=== PATIENT | male | born 1950 | race Caucasian/White ===

== ENCOUNTER 2019-04-17 04:06 | Emergency (ER) | payer OTHER, SELFPAY ==
[2019-04-17 04:07] VITALS: BP 158/108; PULSE 106; RESP 15; TEMP 36.2; O2SAT 95; BMI 31.3
--- NOTE | 2019-04-17 04:09 | CT_ITS ---
STUDY: CT BRAIN WITHOUT CONTRAST REASON FOR EXAM: Male, 68 years old patient fell on concrete with headache and nausea. RADIATION DOSAGE (If Supplied By Facility): CTDIvol = ( 44.99 ) mGy, DLP = ( 846.73 ) mGycm TECHNIQUE: Transaxial CT imaging of the brain was performed without administration of intravenous contrast material. Multiplanar reformations are submitted for interpretation. Individualized dose optimization techniques were used for this CT. COMPARISON: No relevant priors. FINDINGS: There are multiple scalp calcifications. Normal calvarium. There is mild cerebral atrophy with widening of the extra-axial spaces and ventricular dilatation. Normal white matter tracts of the cerebral hemispheres. Normal basal ganglia and thalami. Normal brainstem. Normal cerebellum. There is no intracranial hemorrhage. There are no findings of an acute ischemic infarction. Normal visualized paranasal sinuses. CT/Brain/Head without Contrast IMPRESSION: No CT evidence of acute intracranial hemorrhage. Electronically Signed: Joelle Perez MD at 4:56 EDT , Service support ,
--- NOTE | 2019-04-17 04:19 | ED.DCSUM_ITS ---
- ER Visit Summary Date of Service: 04/17/19 Chief Complaint: Head injury History of Present Illness: The patient is a 68 M who presents after a head injury. He states he was working yesterday and stepping off of a truck when he slipped and fell. He hit the back of his head. There was no LOC at that time. He states he had a mild headache throughout the day yesterday. When he woke up today he felt woozy. He had trouble driving. He does admit to some nausea. Denies any slurred speech, facial droop, neck pain, back pain, weakness of his arms or legs. He does not take any blood thinning medications. He thought he should get checked out today because of these symptoms. Physical Examination: Vital signs reviewed. HEENT exam unremarkable. Heart is tachycardic and regular rhythm without murmurs. Lungs are clear to auscultation. Abdomen is soft and nontender. Extremities reveal no edema. Skin exam normal. Neurologic exam normal. Test Results: CAT scan of the head unremarkable Emergency Department Course and Treatment: The patient's CAT scan is normal. This is likely a concussion. I counseled him on concussion symptoms. He will use NSAIDs for pain. I will fill out Worker's Compensation forms for him. Treatment Plan: [] Disposition: Discharge Impression: Concussion without loss of consciousness This note was generated with [employer] dictation software. It may contain incorrect words, spelling, and punctuation that were not noted in review of the chart prior to signing ED Disposition - Plan for ED Patient: Disposition: Home or Assisted Living Instructions: CONCUSSION, No Wake Up Referrals: NOT,DEFINED [NON-STAFF] -
[2019-04-17 05:08] VITALS: BP 146/88; PULSE 93; RESP 15; O2SAT 94
== END 2019-04-17 05:09 | disposition home or self-care (01) ==
PROVIDERS: Emergency Provider Emergency Medicine
DX: S06.0X0A Concussion without loss of consciousness, initial encounter (principal); W17.89XA Other fall from one level to another, initial encounter; Y93.89 Activity, other specified; Y92.89 Other specified places as the place of occurrence of the external cause; Y99.0 Civilian activity done for income or pay
CPT/HCPCS: 70450; 99283

== ENCOUNTER → 2020-03-30 16:22 | Outpatient (CLI) | payer OTHER, SELFPAY ==
[2020-03-30 19:03] LABS: ALB/GLOB Ratio 0.7 RATIO (0.9-2.4); AST(SGOT) 24 U/L (15-37); Alanine Aminotransfer ALT/SGPT 31 U/L (16-61); Albumin, Serum 3.3 g/dL (3.2-5.0); Alkaline Phosphatase 98 U/L (45-117); Anion Gap 9 (5-15); BUN 26 mg/dL (7-18); BUN/Creat Ratio 24.1 RATIO (10-20); Calcium,Total 8.9 mg/dL (8.5-10.1); Chloride 102 mmol/L (98-107); Cholesterol 153 mg/dL (200); Creatinine, Serum 1.08 mg/dL (0.70-1.30); EST Glomerular Filtration Rate 72 mL/min (>60); Est Glom Filt Rate - Afr Amer 88 mL/min (>60); Globulin 4.8 g/dL (2.2-4.2); Glucose 235 mg/dL (74-106); High Density Lipoprotein 58 mg/dL; Potassium 3.7 mmol/L (3.5-5.1); Protein, Total 8.1 g/dL (6.4-8.2); Sodium Level 138 mmol/L (136-145); Triglycerides 70 mg/dL; Very Low Density Lipoprotein 14 mg/dL (5-40)
[2020-03-30 19:10] LABS: Microalbumin:Creatinine Ratio 63.4 mg/g CRE (<30 mg/g CRE)
== END ==
PROVIDERS: PCP Family Medicine; Referring Provider Family Medicine; Visit Provider Family Medicine
DX: E11.9 Type 2 diabetes mellitus without complications (principal)
CPT/HCPCS: 36415; 80053; 80061; 82043; 82570

== ENCOUNTER 2020-04-15 16:00 | Outpatient (RCR) | payer OTHER, SELFPAY | END 2020-05-06 23:59 | LOC: DC 16:00 | PROVIDERS: PCP Family Medicine; Visit Provider Family Medicine | DX: Z71.3 Dietary counseling and surveillance (principal); E11.65 Type 2 diabetes mellitus with hyperglycemia | CPT/HCPCS: 97802; G0108 ==

== ENCOUNTER 2020-05-11 16:53 | Outpatient (RCR) | payer OTHER, SELFPAY | END 2020-05-11 23:59 | disposition home or self-care (01) | LOC: DC 16:53 | PROVIDERS: PCP Family Medicine; Visit Provider Family Medicine | DX: E11.65 Type 2 diabetes mellitus with hyperglycemia (principal) | CPT/HCPCS: 97803 ==

== ENCOUNTER 2021-03-15 15:27 | Outpatient (CLI) | payer OTHER, SELFPAY ==
[2021-03-15 18:43] LABS: Hemoglobin A1c 12.7 % (3.8-5.6)
[2021-03-15 18:47] LABS: ALB/GLOB Ratio 0.8 RATIO (0.9-2.4); AST(SGOT) 18 U/L (15-37); Alanine Aminotransfer ALT/SGPT 40 U/L (16-61); Albumin, Serum 3.4 g/dL (3.2-5.0); Alkaline Phosphatase 115 U/L (45-117); Anion Gap 9 (5-15); BUN 16 mg/dL (7-18); BUN/Creat Ratio 13.3 RATIO (10-20); Calcium,Total 8.8 mg/dL (8.5-10.1); Chloride 98 mmol/L (98-107); EST Glomerular Filtration Rate 64 mL/min (>60); Est Glom Filt Rate - Afr Amer 77 mL/min (>60); Globulin 4.4 g/dL (2.2-4.2); Potassium 4.3 mmol/L (3.5-5.1); Protein, Total 7.8 g/dL (6.4-8.2); Sodium Level 132 mmol/L (136-145)
[2021-03-15 19:02] LABS: Glucose 547 mg/dL (74-106)
== END 2021-03-15 23:59 | disposition home or self-care (01) ==
PROVIDERS: PCP Family Medicine; Visit Provider Nurse Practitioner Family
DX: E11.65 Type 2 diabetes mellitus with hyperglycemia (principal)
CPT/HCPCS: 36415; 80053; 83036

== ENCOUNTER 2021-08-04 15:00 | Emergency (ER) | payer MEDICARE, OTHER, SELFPAY ==
[2021-08-04 15:05] VITALS: BP 116/75; PULSE 98; RESP 20; TEMP 36.6; O2SAT 97; BMI 24.6
--- NOTE | 2021-08-04 15:09 | EKG12_ITS ---
Test Reason : SYNCOPE Blood Pressure : / mmHG Vent. Rate : 092 BPM Atrial Rate : 092 BPM P-R Int : 154 ms QRS Dur : 082 ms QT Int : 364 ms P-R-T Axes : 044 066 042 degrees QTc Int : 450 ms Normal sinus rhythm Normal ECG Confirmed by SILVIA COTTON, SELENA ([id number]), supervising editor news reel TOYA SIDHU ([id number]) on 08/05/2021 11:26:03 A M Referred By: SHAYE/ARNOLD Confirmed By:DENNYS VEGA MD
--- NOTE | 2021-08-04 15:10 | EX.ED.DYSGE1 ---
HPI History of Present Illness Chief Complaint: Syncope Narrative Narrative: 70-year-old male presenting with an episode of near syncope. EMS reports that the patient was in a freezer for about 20 minutes which is not atypical for him. When he came out his coworkers noticed he was a little unsteady on his feet. They thought he was going to faint and they sat him down. He did not lose consciousness. EMS reports a blood sugar of 116. They state his blood pressure was a little low when he first picked him up however his blood pressure normalized. Patient states that he feels about normal now but he is a very poor informant. Patient denies any headache, visual complaints, paresthesias. He denies loss of bladder or bowel control. He states he did not have any chest pain or shortness of breath. There was no witnessed seizure activity. [facility] Medical History (Updated 08/04/21 @ 15:34 by Bella Alvarado) Diabetes Stroke/cerebrovascular accident Medical History unable to obtain Home Medications aspirin 81 mg PO/SL DAILY 06/15/21 [History Last Taken Unknown] atorvastatin 40 mg PO/SL QHS 06/15/21 [History Last Taken Unknown] glipizide 5 tablet PO/SL DAILY 06/15/21 [History Last Taken Unknown] lisinopril 2.5 mg PO/SL DAILY 06/15/21 [History Last Taken Unknown] melatonin 5 mg PO/SL QHS 06/15/21 [History Last Taken Unknown] metformin 1,000 mg PO/SL BID 06/15/21 [History Last Taken Unknown] metoprolol succinate 25 mg PO/SL DAILY 06/15/21 [History Last Taken Unknown] senna-docusate sodium 8.6 mg PO/SL DAILY 06/15/21 [History Last Taken Unknown] Allergy/AdvReac Type Severity Reaction Status Date / Time No Known Allergies Allergy Verified 08/04/21 15:04 Social History Smoking Status: Never smoker ROS ROS ED Constitutional Constitutional ED: Denies chills Eyes Eyes: Denies blurry vision or change in vision ENT ENT ED: Denies rhinorrhea or sore throat Cardiovascular Cardiovascular: Reports other Details: Near syncope ; Denies chest pain or palpitations Respiratory/Chest Respiratory/Chest: Denies cough or dyspnea Gastrointestinal Gastrointestinal: Denies abdominal pain or constipation Genitourinary Genitourinary ED: Denies dysuria or hematuria Musculoskeletal Musculoskeletal: Denies arthralgias or back pain Integumentary Denies abscess Neurologic Neurologic: Denies headache(s) or paresthesias Psychiatric Psychiatric: Denies anxiety or depression EXAM Physical Exam Const Vital Signs: 08/04/21 15:05 08/04/21 15:08 08/04/21 15:22 Temperature 98 F Temperature Source Temporal Pulse Rate 98 Pulse Rate [Lying] 95 Pulse Rate [Sitting (for 1 minute prior to obtaining)] 93 Pulse Rate [Standing (for 1 minute prior to obtaining)] 91 Respiratory Rate 20 H Respiratory Effort Normal Non-Labored Respiratory Pattern Normal Blood Pressure 116/75 Blood Pressure [Lying] 125/57 H Blood Pressure [Sitting (for 1 minute prior to obtaining)] 117/74 Blood Pressure [Standing (for 1 minute prior to obtaining)] 112/79 Blood Pressure Mean 88 Blood Pressure Mean [Lying] 79 Blood Pressure Mean [Sitting (for 1 minute prior to obtaining)] 88 Blood Pressure Mean [Standing (for 1 minute prior to obtaining)] 90 Pulse Ox 97 Oxygen Delivery Method Room Air 08/04/21 17:19 08/04/21 19:18 08/04/21 20:18 Temperature Temperature Source Pulse Rate 96 100 109 H Pulse Rate [Lying] Pulse Rate [Sitting (for 1 minute prior to obtaining)] Pulse Rate [Standing (for 1 minute prior to obtaining)] Respiratory Rate 16 20 H 27 H Respiratory Effort Respiratory Pattern Blood Pressure 112/69 115/64 123/78 H Blood Pressure [Lying] Blood Pressure [Sitting (for 1 minute prior to obtaining)] Blood Pressure [Standing (for 1 minute prior to obtaining)] Blood Pressure Mean 83 81 93 Blood Pressure Mean [Lying] Blood Pressure Mean [Sitting (for 1 minute prior to obtaining)] Blood Pressure Mean [Standing (for 1 minute prior to obtaining)] Pulse Ox 97 96 97 Oxygen Delivery Method Room Air Room Air Room Air Positive well nourished HEENT Reports moist mucous membranes Eyes PERRL and EOMs intact bilaterally Chest Wall inspection of chest normal Resp normal respiratory effort and clear to auscultation bilaterally Auscultation: Negative for rales, rhonchi or wheezes Cardio regular rate and regular rhythm Neuro oriented x3 Sensorium / Orientation: alert Motor Exam: strength 5/5 throughout Psych Psych Narrative: Appears slightly confused. Skin no rashes or lesions noted MDM MDM MDM Narrative Medical decision making narrative: Patient presenting with confusion and near syncope. I was able to look up his medical record and apparently this is not new since his previous stroke in June. Apparently he had a MCA territory infarct with multifocal confluent petechial hemorrhage at that point. He had developing hematoma. He spent months in the hospital. He is recovering and the medical record shows that he is confused a lot of the times when he still independent. Patient technically is orthostatic negative. He was given IV fluids. His CBC and BMP are unremarkable. LFTs normal. EtOH negative. Drug review screen negative. Urinalysis negative. EKG is sinus rhythm with a ventricular rate of 92 bpm without signs of ischemic change or dysrhythmia. Chest x-ray my interpretation shows no acute cardiopulmonary process and the radiologist does agree. High-sensitivity troponin is 8. CT of the brain is interpreted by the radiologist as left parietal encephalomalacia representing subacute to chronic infarct. Ultimately the patient's lab work and imaging are within normal limits and this appears to be his baseline. I did not find a source for his syncope. I did also find a recent stress test on June 08, 2021 which was normal. I will try to find a contact for him to get a ride home. Impression: 1. Near syncope 2. Confusion Lab Data Attestation: I reviewed the patient's lab results. Labs: Laboratory Results - last 24 hr 08/04/21 08/04/21 08/04/21 15:15 15:15 15:15 WBC 9.0 RBC 4.24 L Hgb 13.2 Hct 39.9 L MCV 94.1 H MCH 31.1 MCHC 33.1 RDW Std Deviation 42.9 RDW Coeff of Sara 12.6 Plt Count 352 MPV 11.1 Immature Gran % (Auto) 0.300 Neut % (Auto) 60.7 Lymph % (Auto) 26.1 [place] % (Auto) 8.4 Eos % (Auto) 3.6 Baso % (Auto) 0.9 Absolute Neuts (auto) 5.5 Absolute Lymphs (auto) 2.35 Nucleated RBC % 0 Sodium 142 Potassium 4.1 Chloride 105 Carbon Dioxide 28.0 Anion Gap 9 BUN 20 H Creatinine 1.14 Estim Creat Clear Calc 64.04 Est GFR (MDRD) Af Amer 82 Est GFR (MDRD) Non-Af 68 BUN/Creatinine Ratio 17.5 Glucose 164 H Calcium 9.2 Total Bilirubin 0.40 AST 24 ALT 29 Alkaline Phosphatase 67 Troponin I High Sens 8 Total Protein 7.2 Albumin 3.6 Globulin 3.6 Albumin/Globulin Ratio 1.0 Urine Color Urine Clarity Urine pH Ur Specific Tyler Urine Protein Urine Glucose (UA) Urine Ketones Urine Occult Blood Urine Nitrite Urine Bilirubin Urine Urobilinogen Ur Leukocyte Esterase Urine RBC Urine WBC Ur Squamous Epith Cells Urine Bacteria Urine Mucus Urine Opiates Screen Urine Methadone Screen Ur Barbiturates Screen Ur Phencyclidine Scrn Ur Amphetamines Screen MDMA (Ecstasy) Screen U Benzodiazepines Scrn Urine Cocaine Screen U Cannabinoids Screen Ur Drug Screen Comment Ethyl Alcohol < 3.0 08/04/21 08/04/21 17:52 17:52 WBC RBC Hgb Hct MCV MCH MCHC RDW Std Deviation RDW Coeff of Sara Plt Count MPV Immature Gran % (Auto) Neut % (Auto) Lymph % (Auto) [place] % (Auto) Eos % (Auto) Baso % (Auto) Absolute Neuts (auto) Absolute Lymphs (auto) Nucleated RBC % Sodium Potassium Chloride Carbon Dioxide Anion Gap BUN Creatinine Estim Creat Clear Calc Est GFR (MDRD) Af Amer Est GFR (MDRD) Non-Af BUN/Creatinine Ratio Glucose Calcium Total Bilirubin AST ALT Alkaline Phosphatase Troponin I High Sens Total Protein Albumin Globulin Albumin/Globulin Ratio Urine Color Yellow Urine Clarity Clear Urine pH 6.5 Ur Specific Tyler 1.015 Urine Protein 15 H Urine Glucose (UA) Normal Urine Ketones Negative Urine Occult Blood Negative Urine Nitrite Negative Urine Bilirubin Negative Urine Urobilinogen Normal Ur Leukocyte Esterase 100 H Urine RBC 0 SEEN Urine WBC 5-10 SEEN Ur Squamous Epith Cells 0-5 SEEN Urine Bacteria RARE Urine Mucus 1+ Urine Opiates Screen NEGATIVE Urine Methadone Screen NEGATIVE Ur Barbiturates Screen NEGATIVE Ur Phencyclidine Scrn NEGATIVE Ur Amphetamines Screen NEGATIVE MDMA (Ecstasy) Screen NEGATIVE U Benzodiazepines Scrn NEGATIVE Urine Cocaine Screen NEGATIVE U Cannabinoids Screen NEGATIVE Ur Drug Screen Comment Ethyl Alcohol Discharge Plan Triage Chief Complaint: Syncope ED Provider: Jerry Schofield Dx/Rx/DC Orders Instructions: ED ALOC, ED Near-Fainting, Uncertain Cause Prescriptions: No Action aspirin 81 mg tablet 81 mg PO/SL DAILY atorvastatin 40 mg tablet 40 mg PO/SL QHS glipizide 5 mg tablet 5 tablet PO/SL DAILY lisinopril 2.5 mg tablet 2.5 mg PO/SL DAILY melatonin 5 mg tablet 5 mg PO/SL QHS metformin 500 mg tablet 1,000 mg PO/SL BID metoprolol succinate 25 mg tablet 25 mg PO/SL DAILY senna-docusate sodium 8.6 mg tablet 8.6 mg PO/SL DAILY Rx Instructions: 2 tabs daily Primary Care Provider: Madhavi Chaudhry Referrals: Cruzito Fraser MD [STAFF PHYSICIAN] - Disposition Disposition: Home, Self Care
--- NOTE | 2021-08-04 15:13 | CT_ITS ---
EXAMINATION : Head CT w/out contrast HISTORY : confusion COMPARISON : 04/17/2019. TECHNIQUE : Multiple contiguous axial images were obtained from the skull base to the vertex without intravenous contrast. A radiation dose optimization technique was used for this scan. FINDINGS : The ventricles and sulci are normal in size. There is no evidence for acute intracranial hemorrhage, mass effect, or midline shift. There is no extra-axial fluid collection. There is normal chan-white differentiation, without CT evidence of acute ischemia or infarct. Left parietal encephalomalacia. The skull base and calvarium are unremarkable. The orbits are unremarkable. The paranasal sinuses are clear. The mastoid air cells are well-aerated. The soft tissues are unremarkable. CT/Brain/Head without Contrast IMPRESSION: No acute intracranial abnormality. Left parietal encephalomalacia representing subacute to chronic infarct.. Electronically Signed: Jose Manuel Maza MD at 16:43 EDT ,
[2021-08-04 15:22] VITALS: BP 112/79; BP 117/74; BP 125/57; PULSE 91; PULSE 93; PULSE 95
--- NOTE | 2021-08-04 15:35 | ED.RN ---
DIFFICULT TO GET AN APPROPRIATE ANSWER FROM PT. HIS RESPONSES TO THE QUESTIONS BEING ASKED DO NOT NECESSARILY MAKE SENSE. HOWEVER, PT DOES KNOW THAT HE IS IN [facility], THE MONTH, DAY, AND THE YEAR. PER PROVIDER THIS IS BASELINE FOR THE PT D/T HIS CVA.
[2021-08-04 15:41] LABS: Absolute Lymphocyte Count 2.35 X10^3/uL (0.83-4.51); Absolute Neutrophil Count 5.5 X10^3/uL (2.0-7.7); Basophil# 0.08 X10^3/uL; Basophil% 0.9 % (0-1); Eosinophil# 0.32 X10^3/uL; Eosinophils% 3.6 % (0-5); Hematocrit 39.9 % (40-54); Hemoglobin 13.2 g/dL (13.0-16.5); Lymphocyte # 2.35 X10^3/ul (0.83-4.51); Lymphocyte % 26.1 % (19-41); Mean Corp Hgb Conc 33.1 g/dL (32-36); Mean Corpuscular Hgb 31.1 pg (27.0-32.0); Mean Corpuscular Volume 94.1 fL (80-94); Mean Platelet Vol. 11.1 fl (6.2-12.0); Monocyte# 0.76 X10^3/uL; Monocyte% 8.4 % (0-10); NRBC Flagged by Analyzer 0 % (0-5); Neutrophil # 5.47 X10^3/uL (2.7-7.7); Neutrophil % 60.7 % (47-70); Platelet Count 352 K/mm3 (150-450); RBC Distribution Width CV 12.6 % (11.6-14.6); RBC Distribution Width SD 42.9 fl (35.1-43.9); Red Blood Count 4.24 M/mm3 (4.6-6.2)
--- NOTE | 2021-08-04 15:55 | RAD_ITS ---
INDICATION: near syncope EXAMINATION/TECHNIQUE: X-RAY - XR Chest 1 View COMPARISON: None. FINDINGS: The lungs are clear. The cardiomediastinal silhouette is unremarkable. No pleural effusion or pneumothorax. No acute osseous abnormalities. RAD/Chest 1 View (Portable) IMPRESSION: No acute radiographic abnormalities. Electronically Signed: Jose Manuel Maza MD at 16:44 EDT ,
[2021-08-04 16:09] LABS: AST(SGOT) 24 U/L (15-37); Alanine Aminotransfer ALT/SGPT 29 U/L (16-61); Albumin, Serum 3.6 g/dL (3.2-5.0); Alkaline Phosphatase 67 U/L (45-117); Anion Gap 9 (5-15); BUN 20 mg/dL (7-18); BUN/Creat Ratio 17.5 RATIO (10-20); Calcium,Total 9.2 mg/dL (8.5-10.1); Chloride 105 mmol/L (98-107); Creatinine, Serum 1.14 mg/dL (0.70-1.30); EST Glomerular Filtration Rate 68 mL/min (>60); Est Glom Filt Rate - Afr Amer 82 mL/min (>60); Estimated Creatinine Clearance 64.04 ml/min; Globulin 3.6 g/dL (2.2-4.2); Glucose 164 mg/dL (74-106); Potassium 4.1 mmol/L (3.5-5.1); Protein, Total 7.2 g/dL (6.4-8.2); Sodium Level 142 mmol/L (136-145); Troponin-I HS 8 pg/mL (3.0-78.0)
[2021-08-04 16:11] LABS: Alcohol, Blood (Medical)-Serum < 3.0 mg/dL
[2021-08-04] MEDS: 0.9% Normal Saline 1,000 ML 999 ML IV (16:18)
--- NOTE | 2021-08-04 16:40 | CM.ED ---
Social Work Note Reason for Referral: No PCP SW reviewed chart, pt has no PCP listed. Meg ELIZABETH updated that pt unable to comprehend questions at this time. Meg placed a call to pt's sister and GUSTAVO Francois ([phone]). Renate states that pt has a PCP named Madhavi Chaudhry at [facility]. Renate states pt has been off the medication Glipizide for a few days since Monday. Renate states someone picked up the prescription today but she was not sure if pt took the medication or not. RN updated. Shilpi Rausch APPAREL CUTTER, [employer] ASSEMBLER
[2021-08-04 17:19] VITALS: BP 112/69; PULSE 96; RESP 16; O2SAT 97
[2021-08-04 18:00] LABS: Red Blood Cells-Urine 0 SEEN /hpf (0-5)
[2021-08-04 18:20] LABS: Amphetamine Urine VISTA NEGATIVE (<1000 ng/mL); Barbiturate Urine VISTA NEGATIVE (< 200 ng/mL); Benzodiazepine Urine VISTA NEGATIVE (< 200 ng/mL); Cocaine Urine VISTA NEGATIVE (< 300 ng/mL); Ecstacy Urine VISTA NEGATIVE (< 500 ng/mL); Methadone Urine VISTA NEGATIVE (< 300 ng/mL); PCP Urine VISTA NEGATIVE (< 25 ng/mL); THC Urine VISTA NEGATIVE (< 50 ng/mL); Vista UDS pH Range 6
[2021-08-04 18:30] LABS: Color, Urine Yellow (Yellow); Glucose, Dipstick Normal (Normal); Ketone-Dipstick Negative (Negative); Leukocyte Esterase-Dipstick 100 /ul (Negative); Nitrite-Dipstick Negative (Negative); Occult Blood-Urine Negative /ul (Negative); Protein-Dipstick 15 mg/dl (Negative); Specific Gravity, Urine 1.015 (1.002-1.030); Urine Bilirubin Dipstick Negative (Negative); Urine Clarity Clear (Clear); Urine Urobilinogen Normal (Normal); Urine pH 6.5 (5.0 - 8.0)
[2021-08-04 18:37] LABS: White Blood Cells 5-10 SEEN /hpf (0-5)
[2021-08-04 18:38] LABS: Bacteria RARE /hpf (None Seen); Mucous, Urine 1+ /hpf (<or=2+); Squamous Epithelial Cells - UA 0-5 SEEN /hpf (0-5)
[2021-08-04 19:18] VITALS: BP 115/64; PULSE 100; RESP 20; O2SAT 96
[2021-08-04 20:18] VITALS: BP 123/78; PULSE 109; RESP 27; O2SAT 97
--- NOTE | 2021-08-04 23:14 | ED.RN ---
pt found to have left prior to instructions. pt was waiting for family member to pick him up. apparently family arrived to pick him up and he left. Primary nurse did not discontinue IV, pt is confused therefore unable to call and ask him. unable to get ahold of the person who picked him up. Lynsey MILLS notified and asked to do a welfare check on patient to make sure he no longer had an IV in his arm. Fanny MILLS calls back stating she visualized patient and he did not have an IV in his arm.
--- NOTE | 2021-08-05 13:57 | ED.RN ---
THIS RN SPOKE WITH PTS SISTER REGARDING HIS CARE THE OTHER DAY. SHE CALLED TO APOLOGIZE FOR HIS BEHAVIOR AND WAS ENCOURAGED BY THIS RN TO HAVE HIM FOLLOWUP WITH HIS PRIMARY CARE PROVIDER TO SORT OUT HIS ISSUES WITH MEDICATION RENEWALS
== END 2021-08-04 23:18 | disposition home or self-care (01) ==
PROVIDERS: Emergency Provider Student in an Organized Health Care Education/Training Program; PCP Family Medicine; Visit Provider Student in an Organized Health Care Education/Training Program
DX: R55 Syncope and collapse (principal); R41.0 Disorientation, unspecified; Z86.73 Personal history of transient ischemic attack (TIA), and cerebral infarction without residual deficits
CPT/HCPCS: 70450; 71045; 80053; 80307; 81001; 82077; 84484; 85025; 93005; 96360; 96361; 99285; A4216

== ENCOUNTER 2021-10-13 10:58 | Emergency (ER) | payer MEDICARE, OTHER, SELFPAY ==
[2021-10-13 10:58] VITALS: BP 128/79; PULSE 113; RESP 18; TEMP 36.2; O2SAT 99; BMI 21.2
--- NOTE | 2021-10-13 11:36 | EKG12_ITS ---
Test Reason : CP Blood Pressure : / mmHG Vent. Rate : 101 BPM Atrial Rate : 101 BPM P-R Int : 136 ms QRS Dur : 080 ms QT Int : 332 ms P-R-T Axes : 062 083 037 degrees QTc Int : 430 ms Sinus tachycardia Otherwise normal ECG Confirmed by SILVIA COTTON, SELENA ([id number]), editor book TOYA SIDHU ([id number]) on 10/15/2021 11:52:33 AM Referred By: RAINER Confirmed By:DENNYS VEGA MD
--- NOTE | 2021-10-13 11:36 | RAD_ITS ---
EXAM: XR CHEST, 2 VIEWS CLINICAL INDICATION: chest pain TECHNIQUE: Frontal and lateral views of the chest. This report was created using iPrint report generation technology. COMPARISON: None. FINDINGS: LUNGS AND PLEURAL SPACES: Unremarkable. No consolidation or edema. No pneumothorax. No effusion. HEART: Unremarkable. Cardiac silhouette not enlarged. MEDIASTINUM: Central airways and mediastinal contour are unremarkable. BONES/JOINTS: Mild anterior wedging of T12 and L1 vertebral bodies are presumably from remote injury. SOFT TISSUES: Unremarkable. RAD/Chest PA and Lateral IMPRESSION: No acute findings in the chest. Electronically Signed: Jamey Mcmahon MD at 12:39 EDT ,
--- NOTE | 2021-10-13 11:41 | ED.VIS.CHEST ---
HPI History of Present Illness Chief Complaint: Chest Pain Informant: patient Narrative Narrative: Patient is a 70-year-old male with history of hypertension and MCA territory infarct with secondary hemorrhage earlier this year (treated at [facility]) presenting with chest pain. Patient states he has a funny feeling in his chest on the left side for the past 2 days. Is worse this morning so he came in to be evaluated further. He denies any shortness of breath, dyspnea on exertion orthostasis. Denies any swelling of his legs. Denies any history of pulmonary believes him or DVT. He notes on the past month he has had some intermittent cold symptoms including nasal congestion. Denies any fever or chills. Does have a nonproductive cough. No other complaints at this time. [facility] Medical History Diabetes Stroke/cerebrovascular accident Home Medications aspirin 81 mg PO/SL DAILY 06/15/21 [History Last Taken Unknown] atorvastatin 40 mg PO/SL QHS 06/15/21 [History Last Taken Unknown] lisinopril 2.5 mg PO/SL DAILY 06/15/21 [History Last Taken Unknown] melatonin 5 mg PO/SL QHS 06/15/21 [History Last Taken Unknown] metformin 1,000 mg PO/SL BID 06/15/21 [History Last Taken Unknown] metoprolol succinate 25 mg PO/SL DAILY 06/15/21 [History Last Taken Unknown] senna-docusate sodium 8.6 mg PO/SL DAILY 06/15/21 [History Last Taken Unknown] alpha lipoic acid 300 mg PO/SL DAILY 08/20/21 [History Last Taken Unknown] cephalexin 500 mg capsule 500 mg PO Q12 #10 caps 10/13/21 [Rx Last Taken Unknown] Allergy/AdvReac Type Severity Reaction Status Date / Time No Known Allergies Allergy Verified 10/13/21 10:59 Social History Smoking Status: Never smoker ROS ROS ED Constitutional Constitutional ED: Denies chills or fever(s) Eyes Eyes: Denies blurry vision or change in vision ENT ENT ED: Reports other Details: Nasal congestion ; Denies sore throat Cardiovascular Cardiovascular: Reports as per HPI and chest pain; Denies orthopnea or palpitations Respiratory/Chest Respiratory/Chest: Reports cough; Denies dyspnea, dyspnea on exertion or orthopnea Gastrointestinal Gastrointestinal: Reports constipation and other Details: Chronic constipation, unchanged ; Denies abdominal pain, nausea or vomiting Genitourinary Genitourinary ED: Denies dysuria or urinary frequency Musculoskeletal Musculoskeletal: Denies arthralgias, myalgias or neck pain Integumentary Denies rash Neurologic Neurologic: Denies headache(s), paresthesias or weakness Psychiatric Psychiatric: Reports anxiety EXAM Physical Exam Const Vital Signs: 10/13/21 10:58 10/13/21 11:46 10/13/21 12:46 Temperature 97.2 F L Temperature Source Temporal Pulse Rate 113 H 91 Respiratory Rate 18 21 H Blood Pressure 128/79 H Blood Pressure Mean 95 Pulse Ox 99 99 Oxygen Delivery Method Room Air Room Air 10/13/21 13:20 10/13/21 14:04 Temperature Temperature Source Pulse Rate 91 81 Respiratory Rate 19 H 20 H Blood Pressure Blood Pressure Mean Pulse Ox 99 Oxygen Delivery Method Room Air Positive well nourished and well developed General Appearance ED: well developed and NAD HEENT Reports moist mucous membranes Eyes PERRL and EOMs intact bilaterally Neck supple and no JVD Chest Wall inspection of chest normal Resp normal respiratory effort and clear to auscultation bilaterally Cardio regular rhythm and no murmurs Rate: tachycardic Peripheral Pulses: pulses 2+ throughout GI normal to inspection, nondistended, normoactive bowel sounds and soft to palpation Extremity normal to inspection General Extremety ED: Negative for edema General Extremity: Negative for edema Neuro oriented x3 Sensorium / Orientation: awake and alert Motor Exam: strength 5/5 throughout Psych mental status grossly normal Psych Narrative: Patient is intermittently tearful and has an odd affect but overall behaving appropriately Skin no rashes or lesions noted Heart Score History: Slightly/Non-Suspicious ECG: Normal Age: >/= 65 years Risk Factors: 1 or 2 Risk Factors Troponin: </= Normal Limit Score: 3 MDM MDM MDM Narrative Medical decision making narrative: Patient is a 70-year-old male with history of significant stroke presenting with left-sided chest discomfort, cough and generalized malaise. He also notes that he has been having some sediment in his urine. No other complaints at this time. Pain is been consistent for least 12 hours if not longer so a single high-sensitivity troponin is obtained. Is normal at 16. Patient has leukocytosis with a white blood cell count of 11.4 which is non specific. BMP normal. TSH normal. D-dimer is normal. On arrival patient is tachycardic but has no other risk factors for PE. I do not think a CTA is indicated at this time. He is not hypoxic. Urinalysis is consistent with infection. Urine culture is sent given his age and patient started on Keflex. Given first dose in the emergency room. Will be discharged home. The exact cause of his chest discomfort is not clear however I think he stable for outpatient follow-up. Lab Data Attestation: I reviewed the patient's lab results. Labs: Laboratory Results - last 24 hr 10/13/21 10/13/21 10/13/21 11:50 11:50 11:50 WBC 11.4 H RBC 4.73 Hgb 14.5 Hct 44.4 MCV 93.9 MCH 30.7 MCHC 32.7 RDW Std Deviation 44.1 H RDW Coeff of Sara 12.8 Plt Count 396 MPV 11.4 Immature Gran % (Auto) 0.300 Neut % (Auto) 70.5 H Lymph % (Auto) 18.8 L [place] % (Auto) 7.1 Eos % (Auto) 2.3 Baso % (Auto) 1.0 Absolute Neuts (auto) 8.0 H Absolute Lymphs (auto) 2.13 Nucleated RBC % 0 PT 12.6 INR 1.0 D-Dimer Quant (PE/DVT) 0.44 Sodium 142 Potassium 3.7 Chloride 103 Carbon Dioxide 29.0 Anion Gap 10 BUN 25 H Creatinine 1.05 Estim Creat Clear Calc 63.94 Est GFR (MDRD) Af Amer 90 Est GFR (MDRD) Non-Af 75 BUN/Creatinine Ratio 23.8 H Glucose 132 H Calcium 10.1 Troponin I High Sens 16 TSH 1.52 Urine Color Urine Clarity Urine pH Ur Specific [place] Urine Protein Urine Glucose (UA) Urine Ketones Urine Occult Blood Urine Nitrite Urine Bilirubin Urine Urobilinogen Ur Leukocyte Esterase Urine RBC Urine WBC Ur Squamous Epith Cells Urine Bacteria Urine Mucus 10/13/21 10/13/21 13:52 14:00 WBC RBC Hgb Hct MCV MCH MCHC RDW Std Deviation RDW Coeff of Sara Plt Count MPV Immature Gran % (Auto) Neut % (Auto) Lymph % (Auto) [place] % (Auto) Eos % (Auto) Baso % (Auto) Absolute Neuts (auto) Absolute Lymphs (auto) Nucleated RBC % PT INR D-Dimer Quant (PE/DVT) Sodium Potassium Chloride Carbon Dioxide Anion Gap BUN Creatinine Estim Creat Clear Calc Est GFR (MDRD) Af Amer Est GFR (MDRD) Non-Af BUN/Creatinine Ratio Glucose Calcium Troponin I High Sens 17 TSH Urine Color Yellow Urine Clarity Clear Urine pH 6.0 Ur Specific [place] 1.015 Urine Protein 15 H Urine Glucose (UA) Normal Urine Ketones Negative Urine Occult Blood 25 H Urine Nitrite Negative Urine Bilirubin Negative Urine Urobilinogen Normal Ur Leukocyte Esterase 500 H Urine RBC 0-5 SEEN Urine WBC 25-50 SEEN Ur Squamous Epith Cells 0-5 SEEN Urine Bacteria 1+ Urine Mucus 1+ Radiography Chest X-Ray - ED: 2 View, Read by ED Physician, Read by Radiologist and No Acute Disease Diagnostic Testing: Clinical Impression(s) from Imaging Studies Chest X-Ray 10/13/21 11:36 IMPRESSION: No acute findings in the chest. Electronically Signed: Jamey Mcmahon MD at 12:39 EDT , Rhythm Strip Rhythm Strip: Sinus Tach Rate: 101 Ectopy: None EKG Initial EKG: Attestation: I personally reviewed and interpreted this EKG as follows: Interpretation: Sinus Tachycardia Comments: Sinus tachycardia rate of 101 Normal axis Normal intervals Normal ST segments Compared to prior EKG on 08/04/2021 patient is now tachycardic but no other acute changes Discharge Plan Triage Chief Complaint: Chest Pain ED Provider: Anju Morin Dx/Rx/DC Orders Clinical Impression: Chest pain of uncertain etiology, Acute UTI Instructions: ED Chest Pain, Uncertain Cause, ED Bladder Infection, Male (Adult) Prescriptions: New cephalexin 500 mg capsule 500 mg PO Q12 Qty: 10 0RF No Action aspirin 81 mg tablet 81 mg PO/SL DAILY atorvastatin 40 mg tablet 40 mg PO/SL QHS lisinopril 2.5 mg tablet 2.5 mg PO/SL DAILY melatonin 5 mg tablet 5 mg PO/SL QHS metformin 500 mg tablet 1,000 mg PO/SL BID metoprolol succinate 25 mg tablet 25 mg PO/SL DAILY senna-docusate sodium 8.6 mg tablet 8.6 mg PO/SL DAILY Rx Instructions: 2 tabs daily alpha lipoic acid 300 mg capsule 300 mg PO/SL DAILY Primary Care Provider: Madhavi Chaudhry Referrals: Madhavi Chaudhry, [Primary Care Provider] - Activity Restrictions/Additional Instructions: Drink lots of fluids. He may take Tylenol for any discomfort. Take the entire course of antibiotics (1 pill in the morning 1 pill in the evening) with your first dose tomorrow morning as you received some today. Disposition Disposition: Home, Self Care
[2021-10-13] MEDS: 0.9% Normal Saline 1,000 ML 1000 ML IV (11:45)
[2021-10-13 11:46] VITALS: O2SAT 99
[2021-10-13] MEDS: Aspirin 81 MG TAB.CHEW 324 MG PO (11:47)
[2021-10-13 12:14] LABS: Prothrombin Time (Protime)PT. 12.6 SECONDS (11.7-14.9)
[2021-10-13 12:25] LABS: D-Dimer Quantitative (DVT/PE) 0.44 FEU/ug/m (0.27-0.49)
[2021-10-13 12:26] LABS: Anion Gap 10 (5-15); BUN 25 mg/dL (7-18); BUN/Creat Ratio 23.8 RATIO (10-20); Calcium,Total 10.1 mg/dL (8.5-10.1); Chloride 103 mmol/L (98-107); Creatinine, Serum 1.05 mg/dL (0.70-1.30); EST Glomerular Filtration Rate 75 mL/min (>60); Est Glom Filt Rate - Afr Amer 90 mL/min (>60); Estimated Creatinine Clearance 63.94 ml/min; Glucose 132 mg/dL (74-106); Potassium 3.7 mmol/L (3.5-5.1); Sodium Level 142 mmol/L (136-145); Thyroid Stim Hormone (TSH) 1.52 uIU/mL (0.358-3.74); Troponin-I HS (w/2H Reflex) 16 pg/mL (3.0-78.0)
[2021-10-13 12:31] LABS: Absolute Lymphocyte Count 2.13 X10^3/uL (0.83-4.51); Basophil# 0.11 X10^3/uL; Eosinophil# 0.26 X10^3/uL; Eosinophils% 2.3 % (0-5); Hematocrit 44.4 % (40-54); Hemoglobin 14.5 g/dL (13.0-16.5); Lymphocyte # 2.13 X10^3/ul (0.83-4.51); Lymphocyte % 18.8 % (19-41); Mean Corp Hgb Conc 32.7 g/dL (32-36); Mean Corpuscular Hgb 30.7 pg (27.0-32.0); Mean Corpuscular Volume 93.9 fL (80-94); Mean Platelet Vol. 11.4 fl (6.2-12.0); Monocyte# 0.81 X10^3/uL; Monocyte% 7.1 % (0-10); NRBC Flagged by Analyzer 0 % (0-5); Neutrophil # 8.02 X10^3/uL (2.7-7.7); Neutrophil % 70.5 % (47-70); Platelet Count 396 K/mm3 (150-450); RBC Distribution Width CV 12.8 % (11.6-14.6); RBC Distribution Width SD 44.1 fl (35.1-43.9); Red Blood Count 4.73 M/mm3 (4.6-6.2); White Blood Count 11.4 K/mm3 (4.4-11.0)
[2021-10-13 12:46] VITALS: PULSE 91; RESP 21
[2021-10-13 13:20] VITALS: PULSE 91; RESP 19
[2021-10-13 13:58] LABS: Reflex Troponin-HS? (from REC) Y
[2021-10-13 14:04] VITALS: PULSE 81; RESP 20; O2SAT 99
[2021-10-13 14:10] LABS: Color, Urine Yellow (Yellow); Glucose, Dipstick Normal (Normal); Ketone-Dipstick Negative (Negative); Leukocyte Esterase-Dipstick 500 /ul (Negative); Nitrite-Dipstick Negative (Negative); Occult Blood-Urine 25 /ul (Negative); Protein-Dipstick 15 mg/dl (Negative); Specific Gravity, Urine 1.015 (1.002-1.030); Urine Bilirubin Dipstick Negative (Negative); Urine Clarity Clear (Clear); Urine Urobilinogen Normal (Normal)
[2021-10-13 14:15] LABS: Troponin-I HS 17 pg/mL (3.0-78.0)
[2021-10-13 14:21] LABS: Red Blood Cells-Urine 0-5 SEEN /hpf (0-5); White Blood Cells 25-50 SEEN /hpf (0-5)
[2021-10-13 14:22] LABS: Bacteria 1+ /hpf (None Seen); Mucous, Urine 1+ /hpf (<or=2+); Squamous Epithelial Cells - UA 0-5 SEEN /hpf (0-5)
[2021-10-13] MEDS: Cephalexin 250 MG Capsule 500 MG PO (14:56)
[2021-10-13 15:10] VITALS: BP 135/82; PULSE 85; RESP 18; O2SAT 98
== END 2021-10-13 15:10 | disposition home or self-care (01) ==
PROVIDERS: Emergency Provider Emergency Medicine; PCP Family Medicine; Visit Provider Emergency Medicine
DX: N39.0 Urinary tract infection, site not specified (principal); E11.9 Type 2 diabetes mellitus without complications; I10 Essential (primary) hypertension; R53.81 Other malaise; R07.9 Chest pain, unspecified; Z79.82 Long term (current) use of aspirin; Z79.84 Long term (current) use of oral hypoglycemic drugs; Z79.899 Other long term (current) drug therapy
CPT/HCPCS: 71046; 80048; 81001; 84443; 84484; 85025; 85379; 85610; 87086; 87811; 93005; 96360; 96361; 99284; A4216

== ENCOUNTER → 2021-11-05 | Outpatient (CLI) | payer MEDICARE, OTHER, SELFPAY ==
[2021-11-05 15:28] LABS: Anion Gap 9 (5-15); BUN 25 mg/dL (7-18); BUN/Creat Ratio 27.2 RATIO (10-20); Calcium,Total 9.2 mg/dL (8.5-10.1); Chloride 100 mmol/L (98-107); Cholesterol 91 mg/dL (200); Creatinine, Serum 0.92 mg/dL (0.70-1.30); EST Glomerular Filtration Rate 87 mL/min (>60); Est Glom Filt Rate - Afr Amer 105 mL/min (>60); Glucose 99 mg/dL (74-106); High Density Lipoprotein 53 mg/dL; Potassium 4.3 mmol/L (3.5-5.1); Sodium Level 138 mmol/L (136-145); Triglycerides 50 mg/dL; Very Low Density Lipoprotein 10 mg/dL (5-40)
[2021-11-05 15:29] LABS: Hemoglobin A1c 6.1 % (3.8-5.6)
[2021-11-05 16:09] LABS: Microalbumin,Random Urine 22.9 mg/L (NO RANGE EST.); Microalbumin:Creatinine Ratio 17.8 mg/g CRE (<30 mg/g CRE)
== END | disposition home or self-care (01) ==
LOC: MFPLAB 12:00
PROVIDERS: PCP Family Medicine; Referring Provider Family Medicine; Visit Provider Family Medicine
DX: E11.9 Type 2 diabetes mellitus without complications (principal)
CPT/HCPCS: 36415; 80048; 80061; 82043; 82570; 83036

== ENCOUNTER 2021-12-01 10:30 | Outpatient (RCR) | payer MEDICARE, SELFPAY ==
--- NOTE | 2021-06-03 15:51 | HP.SP.EVAL ---
History - History Date of Eval: 06/02/21 Medical Diagnosis (from RX): CVA Date of Onset of Diagnosis: 04/01/21 Previous speech therapy: Yes Results: Waiting on medical records and ST evaluation/notes from [place], [facility] and [facility]. Smoking Status: Never smoker Hx Tobacco Use: No - Pain Is pain an issue with your current prescribed condition?: No Patient Allergies - Allergies Allergies No Known Allergies Allergy (Verified 04/17/19 04:11) CLQT - CLQT CLQT Administered: Yes CLQT: Cognitive Linguistic Quick Test (CLQT) is a criterion - referenced assessment designed for adults between the ages of 18 and 89 with known or suspected neurological dysfuntions. The CLQT is to assess strength and weaknesses in five cognitive domains. Severity ratings are within normal limits, mild, moderate, severe deficits. The subtests are as follows: Date: 06/03/21 - Attention Attention: Mild - Memory Memory: Severe - Executive Functions Executive Functions: Mild - Language Language: Moderate - Visuospatial Skills Visuospatial Skills: Mild - Composite Severity Rating Composite Severity Rating: Moderate - Clock Drawing Severity Rating Clock Drawing Severity Rating: WNL - CLQT Comments IMPRESSION Patient was administered the Cognitive-Linguistic Quick Test (CLQT), which is a criterion-referenced assessment designed for adults between the ages of 18 to 89 years old with known or suspected neurological dysfunctions. The CLQT assesses the following cognitive domains - Attention, Memory, Executive Function, Language, and Visuospatial Skills. Tasks completed within this test include Personal Facts, Symbol Cancellation, Confrontation Naming, Clock Drawing, Story Retelling, Symbol Trails, Generative Naming, Design Memory, Mazes, and Design Generation, with each task addressing different cognitive-linguistic functions. Results of the CLQT are as follows: Cognitive Domain Scores. Personal Facts (memory and language ability): 09/13. Symbol Cancellation (nonlinguistic task of visual attention and perception, integrity of the upper/lower quadrants of the left/right visual drew): 10/18. Confrontation Naming (aphasia, perseveration, verbosity): 11/15. Clock Drawing (screening of all cognitive domains): 01/18. Story Retelling (memory and comprehension, arousal, attention, storage capacity, narrative skills): 03/18. Symbol Trails (nonlinguistic task to assess planning, self-monitoring, working memory, and visual attention, and impulsivity): 08/15. Generative Naming (word retrieval skills, perseveration): 03/17 with a perseveration ratio of 0.0 %. Design Memory (nonlinguistic task to assess visual discrimination & analysis, attention, and visual memory, impulsivity, perseveration): 04/11. Mazes (planning, mental flexibility, self-monitoring, visual discrimination, and impulsivity): 09/13. Design Generation (nonlinguistic task of creativity and mental flexibility): 07/19. Severity Rating. Attention: Cognitive Domain Score = 150 - Mild impairment (normal 215-180). Memory: Cognitive Domain Score = 100- Severe impairment (normal 185-155). Executive Functioning: Cognitive Domain Score = 23 - Mild impairment (normal 40-24). Language: Cognitive Domain Score = 22 - Moderate (normal 37-29). Visuospatial Skills: Cognitive Domain Score = 74 - Mild impairment (normal 105-82). Clock Drawing: Score = 12 - WNL (normal 13-12). Composite Severity Rating: Moderate impairment 2.4. Reviewed results of CLQT w/ patient, as well as plans for continued tx per plan of care targeting complex cognitive tasks at pt. lives independently. NQOL Plan - Prognosis Prognosis: Good - Frequency Frequency: 2x /Week - Goal #1-5 Goal #1: Ramon will participate in ongoing evaluation of cognitive-linguistic function w/ goal adjustment as appropriate pending findings. Goal #2: Ramon will complete 1 minute time generative naming tasks for concrete categories, naming 8 items per category, given min-moderate verbal cues in order to improve functional expressive language and word finding skills. Goal #3: Ramon will answer complex yes/no questions (e.g., ?is fire hot??, ?are there 6 days in one week??) at 90% accuracy w/ no verbal cues to improve auditory comprehension. Goal #4: Ramon will complete functional money management tasks with use of compensatory strategies (calculator, note taking, etc) to facilitate achievement of the highest level of safe, independent functioning with min cues. Goal #5: Ramon will independently complete medication management tasks with compensatory strategies to ensure the highest level of safe, independent functioning with 90% accuracy. Education - Patient has Indicated that the Following Identified Educational Needs: None, Cognitively Impaired The Patient has indicated that they have no educational or learning abilities that may effect their care.: Yes - Patient Instruction Patient Education: Diagnosis, Treatment Plan Person Taught: Patient, Family
--- NOTE | 2021-08-10 18:29 | HP.SPREEV_ITS ---
History - History Date of Eval: 07/15/21 Medical Diagnosis (from RX): CVA Date of Onset of Diagnosis: 04/01/21 Previous speech therapy: Yes Results: Waiting on medical records and ST evaluation/notes from [facility], [facility] and [facility]. Smoking Status: Never smoker Hx Tobacco Use: No - Pain Is pain an issue with your current prescribed condition?: No Patient Allergies - Allergies Allergies No Known Allergies Allergy (Verified 08/04/21 15:04) Previous/Current Goals - Goals 1-5 Previous Goal #1: Ramon will participate in ongoing evaluation of cognitive- linguistic function w/ goal adjustment as appropriate pending findings. Previous Goal #2: Ramon will complete 1 minute time generative naming tasks for concrete categories, naming 8 items per category, given min-moderate verbal cues in order to improve functional expressive language and word finding skills. Previous Goal #3: Ramon will answer complex yes/no questions (e.g., ?is fire hot??, ?are there 6 days in one week??) at 90% accuracy w/ no verbal cues to improve auditory comprehension. Previous Goal #4: Ramon will complete functional money management tasks with use of compensatory strategies (calculator, note taking, etc) to facilitate achievement of the highest level of safe, independent functioning with min cues. Previous Goal #5: Ramon will independently complete medication management tasks with compensatory strategies to ensure the highest level of safe, independent functioning with 90% accuracy. Objective Cog/Ling/Com - Test Administered Brqwwvfky-Qizxnthopr-Iulqbvesahxfa Assessment Administered: Yes Udnqfuqrn-Kfiefudmnj-Rkqsujttpmygt Assessment: Cognitive ? Linguistic skills were evaluated using patient/family interview, skilled observation and informal evaluation through tasks completed by the patient. - Orientation Orientation: Person, Place, Date, Day, Birthdate, Medical Diagnosis - Comments Comments: Pt was informally given the QLQT assessment. This assessment was given during the initial evaluation 2 months ago. Due to the close proximity to the previous administration of this assessment, a standardized score cannot be derived. Pt showed areas of improvement in basic information, design generation, design matching, picture naming, and symbol cancelation. Pt with increased difficulty with mazes. Pt increased his story retell score and comprehension, but this is still any area of concern. Pt with difficulty with divergent naming of concrete items. - Naming Naming in categories: Moderate [place]: Moderate - Reading Comprehension Sentences: Mild - Cognitive Linguistic Supervision/Saftey Awareness of deficits: Mild Managing finances: Mild - Executive Function Comments Comments: Multiple repetitions of directions. CLQT - CLQT CLQT Administered: Yes CLQT: Cognitive Linguistic Quick Test (CLQT) is a criterion - referenced assessment designed for adults between the ages of 18 and 89 with known or suspected neurological dysfuntions. The CLQT is to assess strength and weaknesses in five cognitive domains. Severity ratings are within normal limits, mild, moderate, severe deficits. The subtests are as follows: Date: 06/03/21 - Attention Attention: Mild - Memory Memory: Severe - Executive Functions Executive Functions: Mild - Language Language: Moderate - Visuospatial Skills Visuospatial Skills: Mild - Composite Severity Rating Composite Severity Rating: Moderate - Clock Drawing Severity Rating Clock Drawing Severity Rating: WNL - CLQT Comments IMPRESSION Patient was administered the Cognitive-Linguistic Quick Test (CLQT), which is a criterion-referenced assessment designed for adults between the ages of 18 to 89 years old with known or suspected neurological dysfunctions. The CLQT assesses the following cognitive domains - Attention, Memory, Executive Function, Language, and Visuospatial Skills. Tasks completed within this test include Personal Facts, Symbol Cancellation, Confrontation Naming, Clock Drawing, Story Retelling, Symbol Trails, Generative Naming, Design Memory, Mazes, and Design Generation, with each task addressing different cognitive-linguistic functions. Results of the CLQT are as follows: Cognitive Domain Scores. Personal Facts (memory and language ability): 09/13. Symbol Cancellation (nonlinguistic task of visual attention and perception, integrity of the upper/lower quadrants of the left/right visual drew): 10/18. Confrontation Naming (aphasia, perseveration, verbosity): 11/15. Clock Drawing (screening of all cognitive domains): 01/18. Story Retelling (memory and comprehension, arousal, attention, storage capacity, narrative skills): 03/18. Symbol Trails (nonlinguistic task to assess planning, self-monitoring, working memory, and visual attention, and impulsivity): 08/15. Generative Naming (word retrieval skills, perseveration): 03/17 with a perseveration ratio of 0.0 %. Design Memory (nonlinguistic task to assess visual discrimination & analysis, attention, and visual memory, impulsivity, perseveration): 04/11. Mazes (planning, mental flexibility, self-monitoring, visual discrimination, and impulsivity): 09/13. Design Generation (nonlinguistic task of creativity and mental flexibility): 07/19. Severity Rating. Attention: Cognitive Domain Score = 150 - Mild impairment (normal 215-180). Memory: Cognitive Domain Score = 100- Severe impairment (normal 185-155). Executive Functioning: Cognitive Domain Score = 23 - Mild impairment (normal 40-24). Language: Cognitive Domain Score = 22 - Moderate (normal 37-29). Visuospatial Skills: Cognitive Domain Score = 74 - Mild impairment (normal 105-82). Clock Drawing: Score = 12 - WNL (normal 13-12). Composite Severity Rating: Moderate impairment 2.4. Reviewed results of CLQT w/ patient, as well as plans for continued tx per plan of care targeting complex cognitive tasks at pt. lives independently. Plan - Plan Plan: Continue weekly outpatient speech therapy to address mild-mod cognitive impairment characterized by deficits in immediate and divergent naming, executive functioning, reading comprehension, and safety awareness. Without skilled ST services, the Pt is at risk for decreased independence completing daily living tasks. - Recommendations MBS: No Treatment Warranted: Yes Treatment Warranted: Cognition, Social Pragmatic Communication Comment: Pt was given sections of the CLQT to determine progress and create appropriate goals to address cognitive linguistic deficits. Pt with areas of weakness in divergent naming, sequencing, reading comprehension and answering questions related to a story. These deficits reflect the Pt's performance in therapy session on cognitive linguistic tasks. Results of the CLQT and new goals were discussed with the Pt. Pt verbalized understanding and agreed with POC. - Progress Prognosis: Excellent - Frequency Frequency: 1x/Week Duration: 2-4 Months - Goals that are Established Determination:: Goals will be added/modified as deemed necessary and appropriate. Therapy will be discontinued when results of re-evaluation indicate therapy is no longer needed or lack of progress has been documented. - Goal #1-5 Goal #1: Ramon will participate in ongoing evaluation of cognitive-linguistic function w/ goal adjustment as appropriate pending findings. [ End ] Goal #2: Ramon will read 4-6 steps and organizing them into the appropriate sequence with 80% accuracy during 3/4 sessions. Goal #3: Ramon will complete 1 minute time generative naming tasks for concrete categories, naming 8 items per category, given min-moderate verbal cues in order to improve functional expressive language and word finding skills. Goal #4: Ramon will answer complex yes/no questions (e.g., ?is fire hot??, ?are there 6 days in one week??) at 90% accuracy w/ no verbal cues to improve auditory comprehension. Goal #5: Ramon will complete functional money management tasks with use of compensatory strategies (calculator, note taking, etc) to facilitate achievement of the highest level of safe, independent functioning with min cues. - Goal #6-10 Goal #6: Ramon will independently read a paragraph, retell 5 events from the story and answer questions related to the story in order to improve his reading comprehension with 80% accuracy during 3/4 sessions. Goal #7: Pt was tasked with answering questions about a story. Pt I answered question with 80%, increased to 100% with min to mod verbal cues. Pt given cues to look back in the story to find the answers. ST reviewed story retell structure. Pt completed guided retell task with 60% acc. Goal #8: Pt will follow 1-3 steps directions presented in written and auditory formats with 80% accuracy during 3/4 sessions. Education - Patient has Indicated that the Following Identified Educational Needs: None, Cognitively Impaired The Patient has indicated that they have no educational or learning abilities that may effect their care.: Yes - Patient Instruction Patient Education: Diagnosis, Treatment Plan Person Taught: Patient, Family
--- NOTE | 2021-11-17 13:28 | HP.SPREEV_ITS ---
History - History Date of Eval: 06/02/21 Medical Diagnosis (from RX): CVA Date of Onset of Diagnosis: 04/01/21 Previous speech therapy: Yes Results: Waiting on medical records and ST evaluation/notes from [facility], [facility] and [facility]. Smoking Status: Never smoker Hx Tobacco Use: No - Pain Is pain an issue with your current prescribed condition?: No Patient Allergies - Allergies Allergies No Known Allergies Allergy (Verified 10/13/21 10:59) Previous/Current Goals - Goals 1-5 Previous Goal #1: Ramon will participate in ongoing evaluation of cognitive- linguistic function w/ goal adjustment as appropriate pending findings. [ End ] Goal 1 Status: Goal Progressing: Pt completed a similarities/differences exercise with 60% acc with max verbal cues. Previous Goal #2: Ramon will read 4-6 steps and organizing them into the appropriate sequence with 80% accuracy during 3/4 sessions. Goal 2 Status: Goal Partially Met: Pt I read and organized 4 steps with 80% acc. 2/3 sessions. Previous Goal #3: Ramon will complete 1 minute time generative naming tasks for concrete categories, naming 8 items per category, given min-moderate verbal cues in order to improve functional expressive language and word finding skills. Goal 3 Status: Goal Met: Pt completed concrete naming exercise with a specified first letter with 95% acc. Previous Goal #4: Ramon will answer complex yes/no questions (e.g., ?is fire hot??, ?are there 6 days in one week??) at 90% accuracy w/ no verbal cues to improve auditory comprehension. Goal 4 Status: Goal Met: Pt tasked with answering complex yes/no questions. Pt independently answered the yes/no questions with 91% acc, increased to 100% with min cues Previous Goal #5: Ramon will complete functional money management tasks with use of compensatory strategies (calculator, note taking, etc) to facilitate achievement of the highest level of safe, independent functioning with min cues. Goal 5 Status: Goal Progressing: Pt I answered questions about a bank statement with 50% acc. Worked with ST given mod to max verbal cues to fix mistakes. Pt I answered questions about a bank statement with 50% acc. Worked with ST given mod to max verbal cues to fix mistakes. - Goals 6-10 Previous Goal #6: Armon will independently read a paragraph, retell 5 events from the story and answer questions related to the story in order to improve his reading comprehension with 80% accuracy during 3/4 sessions. Goal 6 Status: Goal MET: Pt was tasked with answering questions about a story. Pt I answered question with 100%. Previous Goal #7: Pt will follow 1-3 steps directions presented in written and auditory formats with 80% accuracy during 3/4 sessions. Goal 7 Status: Goal Progressing: During sessions, Ramon follows 1-2 step directions. Repetition and cues to follow the directions of the task is needed. Subjective Cog/Ling/Com - Subjective Cognitive/Linguistic/Communication: Pt has made great improvement in naming, answering yes/no questions and reading comprehension. Pt continue to require cues to complete functional tasks involving money, reading maps, following recipes, and calendar management. Objective Cog/Ling/Com - Test Administered Pztqyserr-Ofosmzsjgs-Euvjwjftduknz Assessment Administered: Yes Msbsnvabt-Fueqcmqnil-Mieyzldzhlapx Assessment: Cognitive ? Linguistic skills were evaluated using patient/family interview, skilled observation and informal evaluation through tasks completed by the patient. - Orientation Orientation: Person, Place, Date, Day, Birthdate, Medical Diagnosis - Comments Comments: Pt was informally given the QLQT assessment. This assessment was given during the initial evaluation 2 months ago. Due to the close proximity to the previous administration of this assessment, a standardized score cannot be derived. Pt showed areas of improvement in basic information, design generation, design matching, picture naming, and symbol cancelation. Pt with increased difficulty with mazes. Pt increased his story retell score and comprehension, but this is still any area of concern. Pt with difficulty with divergent naming of concrete items. - Naming Naming in categories: Moderate [place]: Moderate - Reading Comprehension Sentences: Mild - Cognitive Linguistic Supervision/Saftey Awareness of deficits: Mild Managing finances: Mild - Executive Function Comments Comments: Multiple repetitions of directions. CLQT - CLQT CLQT Administered: Yes CLQT: Cognitive Linguistic Quick Test (CLQT) is a criterion - referenced assessment designed for adults between the ages of 18 and 89 with known or suspected neurological dysfuntions. The CLQT is to assess strength and weaknesses in five cognitive domains. Severity ratings are within normal limits, mild, moderate, severe deficits. The subtests are as follows: Date: 06/03/21 - Attention Attention: Mild - Memory Memory: Severe - Executive Functions Executive Functions: Mild - Language Language: Moderate - Visuospatial Skills Visuospatial Skills: Mild - Composite Severity Rating Composite Severity Rating: Moderate - Clock Drawing Severity Rating Clock Drawing Severity Rating: WNL - CLQT Comments IMPRESSION Patient was administered the Cognitive-Linguistic Quick Test (CLQT), which is a criterion-referenced assessment designed for adults between the ages of 18 to 89 years old with known or suspected neurological dysfunctions. The CLQT assesses the following cognitive domains - Attention, Memory, Executive Function, Language, and Visuospatial Skills. Tasks completed within this test include Personal Facts, Symbol Cancellation, Confrontation Naming, Clock Drawing, Story Retelling, Symbol Trails, Generative Naming, Design Memory, Mazes, and Design Generation, with each task addressing different cognitive-linguistic functions. Results of the CLQT are as follows: Cognitive Domain Scores. Personal Facts (memory and language ability): 09/13. Symbol Cancellation (nonlinguistic task of visual attention and perception, integrity of the upper/lower quadrants of the left/right visual drew): 10/18. Confrontation Naming (aphasia, perseveration, verbosity): 11/15. Clock Drawing (screening of all cognitive domains): 01/18. Story Retelling (memory and comprehension, arousal, attention, storage capacity, narrative skills): 03/18. Symbol Trails (nonlinguistic task to assess planning, self-monitoring, working memory, and visual attention, and impulsivity): 08/15. Generative Naming (word retrieval skills, perseveration): 03/17 with a perseveration ratio of 0.0 %. Design Memory (nonlinguistic task to assess visual discrimination & analysis, attention, and visual memory, impulsivity, perseveration): 04/11. Mazes (planning, mental flexibility, self-monitoring, visual discrimination, and impulsivity): 09/13. Design Generation (nonlinguistic task of creativity and mental flexibility): 07/19. Severity Rating. Attention: Cognitive Domain Score = 150 - Mild impairment (normal 215-180). Memory: Cognitive Domain Score = 100- Severe impairment (normal 185-155). Executive Functioning: Cognitive Domain Score = 23 - Mild impairment (normal 40-24). Language: Cognitive Domain Score = 22 - Moderate (normal 37-29). Visuospatial Skills: Cognitive Domain Score = 74 - Mild impairment (normal 105-82). Clock Drawing: Score = 12 - WNL (normal 13-12). Composite Severity Rating: Moderate impairment 2.4. Reviewed results of CLQT w/ patient, as well as plans for continued tx per plan of care targeting complex cognitive tasks at pt. lives independently. Plan - Plan Plan: Will recommend Pt for weekly outpatient speech therapy to address mild to mod cognitive impairment characterized by deficits in executive functioning, problem solving/reasoning, and following directions. Pt would benefit from cognitive training to improve cognitive functioning. Without skilled ST services, the Pt is at risk for decreased independence completing daily living tasks. - Recommendations MBS: No Treatment Warranted: Yes Treatment Warranted: Cognition Comment: Pt was given sections of the CLQT to determine progress and create appropriate goals to address cognitive linguistic deficits. Pt with areas of weakness in divergent naming, sequencing, reading comprehension and answering questions related to a story. These deficits reflect the Pt's performance in therapy session on cognitive linguistic tasks. Results of the CLQT and new goals were discussed with the Pt. Pt verbalized understanding and agreed with POC. - Progress Prognosis: Excellent - Frequency Frequency: 1x/Week Duration: 2-4 Months - Goals that are Established Determination:: Goals will be added/modified as deemed necessary and appropriate. Therapy will be discontinued when results of re-evaluation indicate therapy is no longer needed or lack of progress has been documented. - Goal #1-5 Goal #1: Ramon will participate in ongoing evaluation of cognitive-linguistic function w/ goal adjustment as appropriate pending findings. Goal #2: Pt will complete basic to mod complex planning, organizing, and sequencing tasks with 80% acc independently across 3 measured opportunities. Goal #3: Ramon will complete functional money management tasks with use of compensatory strategies (calculator, note taking, etc) to facilitate achievement of the highest level of safe, independent functioning with min cues. Goal #4: Pt will follow 1-3 steps directions presented in written and auditory formats with 80% accuracy during 3/4 sessions. Goal #5: Pt will complete basic to mod complex problem solving/reasoning and safety awareness tasks with 80% acc independently across 3/4 measured opportunities - Goal #6-10 Goal #6: Pt will complete functional writing tasks (address, check writing, note taking) with 80% accuracy with minimal verbal cues across 3/4 sessions to improve ability to promote independence completing ADL tasks. Goal #7: Pt will follow 1-3 steps directions presented in written and auditory formats with 80% accuracy during 3/4 sessions. Goal #8: Pt will follow 1-3 steps directions presented in written and auditory formats with 80% accuracy during 3/4 sessions. Education - Patient has Indicated that the Following Identified Educational Needs: None, Cognitively Impaired The Patient has indicated that they have no educational or learning abilities that may effect their care.: Yes - Patient Instruction Patient Education: Diagnosis, Treatment Plan Person Taught: Patient, Family
--- NOTE | 2021-12-01 15:05 | HP.SP.DC ---
ST Discharge Summary - Discharged: Discharge: Pt was seen for initial speech/language/cognitive evaluation at [facility] on 07/15/21 s/p CVA. Pt attended speech therapy sessions following initial evaluation to target word retrieval, divergent naming, problem solving/reasoning, memory, executive functioning, sequencing, reading compression and safety awareness. After a reevaluation and discussion with the patient about tasks of daily living, Pt decided speech therapy will no longer improve his daily functioning. Pt discharged from speech therapy caseload on this date, 12/01/21. Thank you for allowing me to participate in the care of your Pt. Will reevaluate at Pt?s request following script from physician.
== END 2021-12-01 19:00 | disposition home or self-care (01) ==
LOC: SP 10:30
PROVIDERS: PCP Family Medicine; Referring Provider Family Medicine; Visit Provider Family Medicine
DX: Z86.73 Personal history of transient ischemic attack (TIA), and cerebral infarction without residual deficits (principal); R47.01 Aphasia
CPT/HCPCS: 92507; 92523

== ENCOUNTER → 2021-12-21 | Outpatient (CLI) | payer MEDICARE, OTHER, SELFPAY ==
--- NOTE | 2021-12-21 11:00 | ART_ITS ---
Reason For Study: PVD Procedure A bilateral lower extremity continuous wave Doppler with analog waveform analysis,segmental pressures,and ankle brachial indexes with exercise. Left Segmental Pressures Left brachial= 111mmHg. Left thigh = 145mmHg. Left calf = 137mmHg. Left posterior tibial artery = 138mmHg. Left dorsalis pedis artery = 124mmHg. Left digit = 90 mmHg. The left posterior tibial artery waveforms are triphasic. The left dorsalis pedis waveforms are triphasic. Right Segmental Pressures Right brachial= 112mmHg. Right thigh = 137mmHg. Right calf = 149mmHg. Right posterior tibial artery = 134mmHg. Right dorsalis pedis artery = 135mmHg. Right digit = 66 mmHg. The right posterior tibial artery waveforms are triphasic. The right dorsalis pedis waveforms are triphasic. Indices The right ankle brachial index by the posterior tibial artery is 1.20. The right ankle brachial index by the dorsalis pedis is 1.21. The right digital-brachial index is 0.59. The right post exercise ankle brachial index is 1.01. The left ankle brachial index by the posterior tibial artery is 1.23. The left ankle brachial index by the dorsalis pedis is 1.11. The left digital-brachial index is 0.80. The left post exercise ankle brachial index is 1.09. VL/Lower Ext Art Exam w/ Exercise Interpretation Summary Triphasic Doppler waveforms are noted at ankle level bilaterally. Pulse-volume recordings appear slightly diminished at digital level bilaterally, but satisfactory at all other levels bilaterally. Resting ankle-brachial indices are normal bilaterally. The right digital-brachi al index is mildly diminished. The left digital-brachial index is normal. The patient was ambulate d for 5 minutes at 1.3 MPH and a 5% incline, following which ankle pressures and ankle-brachial in dices failed to augment, which represents an abnormal physiological response. At rest, there is no evidence of significant arterial occlusive disease in the left lower extremity. There is evidence of mild arterial occlusive disease at digital level on the ri ght. Based upon the exercise component of this study, there is evidence of mild arterial occlusive disease bilaterally. Ordering Physician: Fabien Leal Referring Physician: Cruzito Fraser Performed By: Moises Bonilla RVT
== END | disposition home or self-care (01) ==
LOC: CVS 10:54
PROVIDERS: PCP Family Medicine; Referring Provider Podiatrist; Visit Provider Podiatrist
DX: I73.9 Peripheral vascular disease, unspecified (principal)
CPT/HCPCS: 93924

== ENCOUNTER 2022-03-17 10:00 | Outpatient (RCR) | payer MEDICARE, OTHER, SELFPAY ==
--- NOTE | 2022-02-02 14:26 | HP.PTEVAL_ITS ---
Patient's Visit Information GUSTAVO CHADWICK is a 71 year old M referred to Physical Therapy by Dr. 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 Date of Evaluation: 02/02/22 Physical Therapist: Bob Vila, PT, Cert MDT, OCS - Visit Plan Frequency: 2x /Week Duration: 4 Weeks Plan: PT INTERVENTIONS PROGRESSIVE BALANCE PROGRAM,STRENGTHENING BLE AND FUNCTIONAL STRENGTHENING - Subjective This 71 y/o male presents to physical therapy with CVA . 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 Patient went to [facility] then then went to [facility] . Patient had MRI showed left middle cerebral artery (MCA ) infarcted due to embolism. .Patient was transferred to [facility] ~ 1month then patient transferred to [facility] for therapy ~ 1week . Patient released to home . Patient lives alone. Patient lives in [facility] home and only steps to basement. Patient is able to dress self and cook. Patient has no falls. Denies pain and numbness/tingling. Patient is able to sleep okay at night. Patient condition affects QOL and function. Patient has expressive dysphagia has memory deficits. Patient is scheduled for driving test in February. SOCIAL: single. 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 GAIT: reciprocal pattern decrease step length narrow JASS. STAIRS: one step at a time. FLEXABLITY: hamstrings mod tight. MMT: quads/hams 4/5 ,hip flexion/abd 4-/5 ,ankle 5/5 - Balance/Special Test Scores Functional Gait Assessment Score: 26 % Disability: 13.3400 CATSIB Score (Max score 120 seconds): 100 Lower Extremity Functional Score: 36 30 Second Chair Rise Test Seconds: 11 - Goals Goal 1:: Patient to be I with HEP Goal Time Frame: 4-6 Weeks Goal 2:: Patient improve 30sec sit-stand by 5 reps to improve function Goal Time Frame: 4-6 Weeks Goal 3:: Patient to improve LFES score by 5 -10 points to improve function and gait Goal Time Frame: 4-6 Weeks Goal 4:: Patient to improve CATSIBE by 5 points to improve balance Goal Time Frame: 4-6 Weeks Goal 5:: Patient to demonstrate 50% improvement with increase function Goal Time Frame: 4-6 Weeks - Rehabilitation Potential Physical Therapy Diagnosis: This patient had CVA affecting speech and balance along with gait thus patient will benefit from skilled PT to address these impairments with skilled PT Rehabilitation Potential: Good - Anticipated Interventions Patient/Client Instruction: Educate patient on: Condition For the Purpose of:: To decrease pain, To improve muscle performance and motor function, To improve ability to perform ADL's, To increase tolerance to activity/condition/position, To improve ability of physical actions for home/community/work/leisure, To improve health of tissue, To decrease soft tissue restriction, To increase flexibility/ROM, To improve endurance, To improve balance Therapeutic Exercise to Include: Strength training, Power training, Endurance training, Balance training, Coordination, Flexibilty training, Gait and locomotor training Comment: BLE For the Purpose of:: To decrease pain, To increase ROM, To improve muscle performance and motor function, To increase tolerance to activity/condition/po sition, To improve ability of physical actions for home/community/work/leisure, To improve gait and locomotor functions, To increase flexibility/ROM, To improve endurance, To improve balance Thank you for the opportunity to evaluate your patient. For Medicare and Medicare HMO plans, please review the plan of care and approve it. It will need to be FAXED BACK to us at [phone] for Medicare purposes. For Medicare only, by signing this I certify the plan of care. Please let me know if there are questions or concerns regarding this plan of care. Physician Yaakov schultz: Date:
--- NOTE | 2022-03-17 10:30 | HP.PTDCSUM ---
It has been my pleasure to treat GUSTAVO CHADWICK referred by Dr. 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 Discharge Date: 03/17/22 Please see the following information for a summary of their discharge status. Subjective: Doing well. Ready for d/c % Improvement: 40 Objective/Function: POSTURE: mild forward posture. GAIT: reciprocal pattern. MMT: quads/hams/hip 4/5 ,ankle Goal 1:: Patient to be I with HEP Goal 2:: Patient improve 30sec sit-stand by 5 reps to improve function Goal 3:: Patient to improve LFES score by 5 -10 points to improve function and gait Goal 4:: Patient to improve CATSIBE by 5 points to improve balance Goal 5:: Patient to demonstrate 50% improvement with increase function Plan: D/C TO HEP Discharge Comments: HEP If there are questions or concerns regarding this patient's physical therapy, please feel free to call me at [phone]. Thank you for the referral of this patient. Sincerely, Bob Vila, PT, Cert MDT, OCS Balance/Gait/Functional tests - Balance/Special Test Scores Functional Gait Assessment Score: 30 % Disability: 0 CATSIB Score (Max score 120 seconds): 100 Lower Extremity Functional Score: 62 30 Second Chair Rise Test Seconds: 12
== END 2022-03-17 19:00 | disposition home or self-care (01) ==
LOC: PT 10:00
PROVIDERS: PCP Family Medicine; Referring Provider Psychiatry & Neurology Sleep Medicine; Visit Provider Psychiatry & Neurology Sleep Medicine
DX: Z86.73 Personal history of transient ischemic attack (TIA), and cerebral infarction without residual deficits (principal)
CPT/HCPCS: 97110; 97162

== ENCOUNTER → 2022-04-25 | Outpatient (CLI) | payer MEDICARE, OTHER, SELFPAY ==
[2022-04-25 10:00] LABS: Absolute Lymphocyte Count 1.79 X10^3/uL (0.83-4.51); Absolute Neutrophil Count 5.7 X10^3/uL (2.0-7.7); Basophil# 0.11 X10^3/uL; Basophil% 1.3 % (0-1); Eosinophil# 0.28 X10^3/uL; Eosinophils% 3.2 % (0-5); Hematocrit 40.7 % (40-54); Hemoglobin 13.1 g/dL (13.0-16.5); Lymphocyte # 1.79 X10^3/ul (0.83-4.51); Lymphocyte % 20.6 % (19-41); Mean Corp Hgb Conc 32.2 g/dL (32-36); Mean Corpuscular Hgb 31.2 pg (27.0-32.0); Mean Corpuscular Volume 96.9 fL (80-94); Mean Platelet Vol. 10.9 fl (6.2-12.0); Monocyte# 0.75 X10^3/uL; Monocyte% 8.6 % (0-10); NRBC Flagged by Analyzer 0 % (0-5); Neutrophil # 5.74 X10^3/uL (2.7-7.7); Neutrophil % 66.2 % (47-70); Platelet Count 392 K/mm3 (150-450); RBC Distribution Width CV 12.6 % (11.6-14.6); RBC Distribution Width SD 44.7 fl (35.1-43.9); White Blood Count 8.7 K/mm3 (4.4-11.0)
[2022-04-25 10:21] LABS: AST(SGOT) 56 U/L (15-37); Alanine Aminotransfer ALT/SGPT 116 U/L (16-61); Alkaline Phosphatase 93 U/L (45-117); Anion Gap 6 (5-15); BUN 21 mg/dL (7-18); BUN/Creat Ratio 19.1 RATIO (10-20); Calcium,Total 9.5 mg/dL (8.5-10.1); Chloride 104 mmol/L (98-107); Cholesterol 121 mg/dL (200); EST Glomerular Filtration Rate 71 mL/min (>60); Est Glom Filt Rate - Afr Amer 85 mL/min (>60); Globulin 3.9 g/dL (2.2-4.2); Glucose 125 mg/dL (74-106); High Density Lipoprotein 60 mg/dL; Potassium 3.8 mmol/L (3.5-5.1); Protein, Total 7.9 g/dL (6.4-8.2); Sodium Level 139 mmol/L (136-145); Triglycerides 92 mg/dL; Very Low Density Lipoprotein 18 mg/dL (5-40)
== END | disposition home or self-care (01) ==
PROVIDERS: PCP Family Medicine; Referring Provider Nurse Practitioner Family; Visit Provider Nurse Practitioner Family
DX: I10 Essential (primary) hypertension (principal); I63.9 Cerebral infarction, unspecified; E11.9 Type 2 diabetes mellitus without complications; Z12.5 Encounter for screening for malignant neoplasm of prostate
CPT/HCPCS: 36415; 80053; 80061; 83036; 84153; 85025; G0103

== ENCOUNTER → 2022-05-02 | Outpatient (CLI) | payer MEDICARE, OTHER, SELFPAY ==
--- NOTE | 2022-05-02 09:39 | CDU_ITS ---
Reason For Study: Cerebral infarction Rt. Velocities/BP Lt. Velocities/BP Prox CCA 55.1/11.6 cm/sec. Prox CCA 67.4/18.2 cm/sec. Mid CCA 61.7/13.5 cm/sec. Mid CCA 57.9/15.4 cm/sec. Dist CCA 62.6/16.3 cm/sec. Dist CCA 59.8/17.3 cm/sec. Prox ICA 60.7/14.5 cm/sec. Prox ICA 53.2/19.2 cm/sec. Mid ICA 54.1/17.3 cm/sec. Mid ICA 62.6/23.9 cm/sec. Dist ICA 56/20.1 cm/sec. Dist ICA 57.9/21.1 cm/sec. Rt. ICA/CCA = 0.98. Lt. ICA/CCA = 1.05. Prox ECA 68.3/9.7 cm/sec. Prox ECA 72.1/7.8 cm/sec. Rt. Vert. 31.5/7.8 cm/sec. Lt. Vert. 38.1/15.4 cm/sec. Right Extracranial There is homogeneous, smooth atherosclerotic plaque noted in the right common carotid artery. There is homogeneous, smooth atherosclerotic plaque noted in the right internal carotid artery. There is intimal thickening but no significant atherosclerotic plaque noted in the right external carotid artery. Antegrade flow is noted in the right vertebral artery. Left Extracranial There is homogeneous, smooth atherosclerotic plaque noted in the left common carotid artery. There is homogeneous, smooth atherosclerotic plaque noted in the left internal carotid artery. There is intimal thickening but no significant atherosclerotic plaque noted in the left external carotid artery. Antegrade flow is noted in the left vertebral artery. Procedure Carotid Duplex 28521. This is a Carotid Duplex examination using B-mode, color flow and specral Doppler. Exam performed in department. VL/Carotid Duplex Ultrasound Interpretation Summary Mild (<50%) stenosis right extracranial internal carotid. Mild (<50%) stenosis left extracranial internal carotid. Patent and antegrade vertebrals bilaterally. Ordering Physician: Ayla Turner Referring Physician: Madhavi Hay Performed By: Shilpi Black RVT
== END | disposition home or self-care (01) ==
LOC: CVS 09:39
PROVIDERS: PCP Family Medicine; Referring Provider Nurse Practitioner Family; Visit Provider Nurse Practitioner Family
DX: I63.9 Cerebral infarction, unspecified (principal); I65.8 Occlusion and stenosis of other precerebral arteries
CPT/HCPCS: 93880

== ENCOUNTER 2022-11-22 09:47 | Inpatient (IN) | payer MEDICARE, OTHER, SELFPAY ==
[2022-11-22] VITALS (15 sets, daily range): BP systolic 100–145; BP diastolic 55–107; PULSE 67–100; RESP 14–21; TEMP 36.4–37.1; O2SAT 96–100; BMI 23.6; BMI 22.4
--- NOTE | 2022-11-22 10:23 | EKG12_ITS ---
Test Reason : WEAKNESS Blood Pressure : / mmHG Vent. Rate : 104 BPM Atrial Rate : 104 BPM P-R Int : 150 ms QRS Dur : 076 ms QT Int : 348 ms P-R-T Axes : 048 078 039 degrees QTc Int : 457 ms Sinus tachycardia Otherwise normal ECG When compared with ECG of 13-OCT-2021 11:03, No significant change was found Confirmed by VIDAL COTTON, SHAHNAZ ([id number]), editorial writer KENTRELL MOSES ([id number]) on 11/24/2022 1:59:17 PM Referred By: YURY Confirmed By:SHAHNAZ DRAKE MD
--- NOTE | 2022-11-22 10:23 | CT_ITS ---
INDICATION: Neuro deficit, acute, stroke suspected EXAMINATION: CT BRAIN - CT Head or Brain W/O Contrast Injection TECHNIQUE: Multiple axial images were obtained of the head without intravenous contrast. A radiation dose optimization technique was used for this scan. IV Contrast dosage and agent: None. RADIATION DOSAGE (If Supplied By Facility): CTDIvol = ( 44.99 ) mGy, DLP = ( 812.98 ) mGycm COMPARISON: Prior study dated: 08/04/2021. FINDINGS: BRAIN PARENCHYMA: No intra- or extra-axial hemorrhage. Old left parietal MCA distribution infarct unchanged. Right occipital infarct. Chronic periventricular deep matter changes likely due to microvascular disease. Vague area of decreased attenuation in the posterior right parietal region likely due to artifact. No intracranial mass or mass effect. There is preservation of the koo/white matter interface. Posterior fossa structures are unremarkable. CSF SPACES: Mild diffuse atrophy. No hydrocephalus. Basal cisterns are patent. CALVARIUM, SKULL BASE, PARANASAL SINUSES AND MASTOID AIR CELLS: Clear. No discrete lytic or blastic abnormalities. ORBITS: Both globes, extraocular muscles, optic nerves and retrobulbar fat appear unremarkable. CT/Brain/Head without Contrast IMPRESSION: 1. Old infarcts in the left frontoparietal and right occipital lobes. 2. No acute intracranial process. 3. Chronic involutional changes of the brain. 4. If symptoms persist, MRI of the brain is recommended. Electronically Signed: Renato Jenkins MD at 11:25 EDT ,
--- NOTE | 2022-11-22 10:23 | RAD_ITS ---
STUDY: X-RAY CHEST REASON FOR EXAM: Male, 71 years old. Neuro deficit. Stroke suspected. TECHNIQUE: Single frontal view of the chest. COMPARISON: October 13, 2021. FINDINGS: The lungs are clear and expanded. There is no demonstrated pleural abnormality. Normal size heart. Normal mediastinum and renuka. Normal visualized pulmonary arteries. Normal visualized aortic arch and descending thoracic aorta. Normal visualized thoracic spine. Normal visualized ribs, clavicles, and shoulders. No abnormality of the visualized soft tissue structures of the upper abdomen. RAD/Chest 1 View IMPRESSION: No interval change. No active or acute cardiopulmonary disease. Electronically Signed: Houston Paz MD at 11:06 EDT ,
--- NOTE | 2022-11-22 10:36 | ED.VIS.STROK ---
HPI History of Present Illness Chief Complaint: Weakness Informant: patient and other (DPOA friend) Narrative Narrative: Presents here with his friend who is IVAN stating there is 2 other individuals that are power of trade mark attorney his daughter is in [place]. Concerns for increasing weakness started yesterday. States 7 AM he dropped his coffee mug, he did not go to work. Today symptoms with slurring speech that is worsening. He had a stroke over a year ago reporting no residual deficits. He is not acting his normal self. He is independent at home. He is on aspirin. Denies headache. Also this morning's drinking and water was coming out of his right side. [facility] Medical History Diabetes Stroke/cerebrovascular accident Home Medications aspirin 81 mg PO/SL DAILY 06/15/21 [History Last Taken Unknown] atorvastatin 40 mg PO/SL QHS 06/15/21 [History Last Taken Unknown] lisinopril 2.5 mg PO/SL DAILY 06/15/21 [History Last Taken Unknown] metformin 1,000 mg PO/SL BID 06/15/21 [History Last Taken Unknown] metoprolol succinate 25 mg PO/SL DAILY 06/15/21 [History Last Taken Unknown] senna-docusate sodium 8.6 mg PO/SL DAILY 06/15/21 [History Last Taken Unknown] loratadine 10 mg PO/SL DAILY 11/09/21 [History Last Taken Unknown] multivitamin 1 cap PO DAILY 12/26/21 [History Last Taken Unknown] Allergy/AdvReac Type Severity Reaction Status Date / Time No Known Allergies Allergy Verified 11/22/22 12:27 Social History Smoking Status: Never smoker ROS ROS ED Constitutional Constitutional ED: Denies chills, fever(s) or sweats Eyes Eyes: Denies change in vision ENT ENT ED: Denies dysphagia or sore throat Cardiovascular Cardiovascular: Denies chest pain, leg edema, palpitations or racing heartbeat Respiratory/Chest Respiratory/Chest: Denies cough, dyspnea or dyspnea on exertion Gastrointestinal Gastrointestinal: Denies abdominal pain, diarrhea, nausea or vomiting Genitourinary Genitourinary ED: Denies dysuria, hematuria or urinary frequency Musculoskeletal Musculoskeletal: Denies back pain, extremity pain or neck pain Integumentary Reports wounds; Denies rash Neurologic Neurologic: Reports weakness and other Details: Slurred speech ; Denies headache(s) or paresthesias EXAM Physical Exam Const Vital Signs: 11/22/22 09:48 11/22/22 10:36 11/22/22 10:23 Temperature 98.7 F Temperature Source Oral Pulse Rate 100 99 Respiratory Rate 21 H 19 H Blood Pressure 145/87 H 125/77 H Blood Pressure Mean 106 93 Blood Pressure Source Blood Pressure Position Blood Pressure Location Pulse Ox 98 97 99 Oxygen Delivery Method Room Air Room Air 11/22/22 10:53 11/22/22 11:47 11/22/22 12:50 Temperature 97.6 F L Temperature Source Temporal Pulse Rate 99 95 91 Respiratory Rate 18 16 18 Blood Pressure 107/55 L 100/80 144/107 H Blood Pressure Mean 72 86 119 Blood Pressure Source Monitor Blood Pressure Position Semi-Fowlers Blood Pressure Location Right Arm Pulse Ox 98 98 96 Oxygen Delivery Method Room Air Room Air Room Air Positive well nourished and well developed Constitutional Narrative: Patient with stuttering speech on exam, this is not his baseline. General Appearance ED: well developed and NAD HEENT Reports moist mucous membranes normocephalic and atraumatic Eyes PERRL, EOMs intact bilaterally and conjunctivae normal General Eye ED: Yes normal appearance of both eyes Neck no lymphadenopathy and supple General: Negative for tenderness Chest Wall Chest: Negative for tenderness Resp normal respiratory effort and normal air movement Effort and Inspection: symmetric chest movement; Negative for respiratory distress Cardio regular rate, regular rhythm and no murmurs Peripheral Pulses: pulses 2+ throughout GI normal to inspection, nondistended, normoactive bowel sounds and non-tender Palpation: Negative for guarding or rebound tenderness present Back/Spine no CVA tenderness and no thoracic nor lumbar tenderness Extremity normal to inspection General Extremety ED: Negative for edema or tenderness General Extremity: Negative for edema Neuro oriented x3 and no sensory deficits noted Neuro Narrative: NIH of 4 for dysarthria and language, paresthesia left arm and leg, minimal right lip droop. 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 Sensorium / Orientation: awake and alert Skin no rashes or lesions noted and no wounds NIHSS NIHSS Initial: 1a Level of Consciousness: 0 1b LOC Questions (Score 2 if aphasic/stupor): 0 1c LOC Commands (Only score 1st attempt): 0 2 Best Gaze (If aphasic, use reflexive mvmts.): 0 3 Visual: 0 4 Facial Palsy: 1 5 Motor Arm Right (UN = amputation/fusion): 0 5 Motor Arm Left: 0 6 Motor Leg Right: 0 6 Motor Leg Left: 0 7 Limb ataxia (Only + if out of proportion): 0 8 Sensory (Aphasia/stupor=0 or 1, coma=2): 1 9 Best Language: 1 10 Dysarthria (mute, coma=2, intubated=UN): 1 11 Extinction and Inattention (only scored if +): 0 Total Score: 4 MDM MDM MDM Narrative Medical decision making narrative: Interventions / MDM: Differential diagnosis: CVA, left arm and leg paresthesia, dysarthria Diagnosis considered but do not suspect: N/A My EKG interpretation: Sinus rate of 104, no ST or T wave changes. Imaging independently reviewed and interpreted by myself: CT brain: No acute process also read by radiology. External documents reviewed: N/A Test considered but not ordered:N/A ED course: Patient having neurological deficits concerning for stroke symptoms. NIH of is a 4, however symptoms greater than 24 hours. Is not a TNK candidate. Stroke work-up initiated, will plan for admission. CT scan negative. Labs are able. EKG sinus rhythm. Discussed with hospitalist Dr. Cavazos for admission to PCU. Re-evaluation: stable Disposition discussed with patient/family/significant other: Patient Case discussed with consulting clinician: Hospitalist This note was generated with [employer] dictation software. It may contain incorrect words, spelling, and punctuation that were not noted in checking the note before signing. Lab Data Attestation: I reviewed the patient's lab results. Labs: Laboratory Results - last 24 hr 11/22/22 10:35 WBC 9.9 RBC 4.00 L Hgb 12.1 L Hct 38.1 L MCV 95.3 H MCH 30.3 MCHC 31.8 L RDW Std Deviation 44.0 H RDW Coeff of Sara 12.6 Plt Count 298 MPV 10.5 Immature Gran % (Auto) 0.200 Neut % (Auto) 70.3 H Lymph % (Auto) 18.5 L [place] % (Auto) 9.3 Eos % (Auto) 1.1 Baso % (Auto) 0.6 Absolute Neuts (auto) 6.9 Absolute Lymphs (auto) 1.82 Nucleated RBC % 0 PT 13.7 INR 1.1 APTT 25.5 Sodium 139 Potassium 3.9 Chloride 105 Carbon Dioxide 26.0 Anion Gap 8 BUN 29 H Creatinine 1.35 H Estim Creat Clear Calc 53.32 Est GFR (MDRD) Af Amer 67 Est GFR (MDRD) Non-Af 56 L BUN/Creatinine Ratio 21.5 H Glucose 149 H Calcium 9.3 Troponin I High Sens 23 Radiography Diagnostic Testing: Clinical Impression(s) from Imaging Studies Brain CT 11/22/22 10:23 IMPRESSION: 1. Old infarcts in the left frontoparietal and right occipital lobes. 2. No acute intracranial process. 3. Chronic involutional changes of the brain. 4. If symptoms persist, MRI of the brain is recommended. Electronically Signed: Renato Jenkins MD at 11:25 EDT , Chest X-Ray 11/22/22 10:23 IMPRESSION: No interval change. No active or acute cardiopulmonary disease. Electronically Signed: Houston Paz MD at 11:06 EDT , Discharge Plan Dx/Rx/DC Orders Clinical Impression: Paresthesia, Dysarthria, CVA (cerebrovascular accident) Disposition Disposition: Acute Care Hospital [facility] Discharge Date/Time: 11/22/22 12:54
[2022-11-22 10:46] LABS: Absolute Lymphocyte Count 1.82 X10^3/uL (0.83-4.51); Absolute Neutrophil Count 6.9 X10^3/uL (2.0-7.7); Basophil# 0.06 X10^3/uL; Basophil% 0.6 % (0-1); Eosinophil# 0.11 X10^3/uL; Eosinophils% 1.1 % (0-5); Hematocrit 38.1 % (40-54); Hemoglobin 12.1 g/dL (13.0-16.5); Lymphocyte # 1.82 X10^3/ul (0.83-4.51); Lymphocyte % 18.5 % (19-41); Mean Corp Hgb Conc 31.8 g/dL (32-36); Mean Corpuscular Hgb 30.3 pg (27.0-32.0); Mean Corpuscular Volume 95.3 fL (80-94); Mean Platelet Vol. 10.5 fl (6.2-12.0); Monocyte# 0.92 X10^3/uL; Monocyte% 9.3 % (0-10); NRBC Flagged by Analyzer 0 % (0-5); Neutrophil # 6.92 X10^3/uL (2.7-7.7); Neutrophil % 70.3 % (47-70); Platelet Count 298 K/mm3 (150-450); RBC Distribution Width CV 12.6 % (11.6-14.6); White Blood Count 9.9 K/mm3 (4.4-11.0)
[2022-11-22 10:54] LABS: International Normalized Ratio 1.1; Prothrombin Time (Protime)PT. 13.7 SECONDS (11.7-14.9)
[2022-11-22 10:56] LABS: Partial Thromboplast Time 25.5 Seconds (24.1-36.2)
[2022-11-22 11:09] LABS: Anion Gap 8 (5-15); BUN 29 mg/dL (7-18); BUN/Creat Ratio 21.5 RATIO (10-20); Calcium,Total 9.3 mg/dL (8.5-10.1); Chloride 105 mmol/L (98-107); Creatinine, Serum 1.35 mg/dL (0.70-1.30); EST Glomerular Filtration Rate 56 mL/min (>60); Est Glom Filt Rate - Afr Amer 67 mL/min (>60); Estimated Creatinine Clearance 53.32 ml/min; Glucose 149 mg/dL (74-106); Potassium 3.9 mmol/L (3.5-5.1); Sodium Level 139 mmol/L (136-145); Troponin-I HS 23 pg/mL (3.0-78.0)
--- NOTE | 2022-11-22 12:21 | PCM.HP.STD ---
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 ED on 11/22/2022 with new onset weakness and slurred speech. Patient seen at bedside on the floor. Sitting comfortably in bed, alert, no acute distress. Patient has mildly slurred speech and appears to have some cognitive slowing but is answering most questions appropriately, unclear on what patient's baseline is. Patient currently denies any symptoms of weakness or numbness/tingling. He denies any vision changes. Otherwise denies any fevers or chills, chest pain, shortness of breath, lightheadedness or dizziness. Patient states that he lives on his own and is able to take care of himself fine at home. States his daughter lives in [place] and he has friends that live in the area that can help him with certain things as needed. States has been taking all home medications as prescribed recently. No other acute concerns currently. Patient notably had a prolonged hospitalization for a CVA back in March 2021. Obtained most of this history from his most recent neurology office note from 12/2021 in [facility] (follows with [facility] neurology). Patient presented to [facility] in [place] in late March 2021 with right-sided weakness and left gaze preference. Initial NIHSS score was 22. CTA head/neck in ED there showed a distal left MCA occlusion. Tenecteplase was given at that time and patient also had a thrombectomy done that was successful. However, repeat CT head showed petechial hemorrhage into the left basal ganglia. Patient was also found to have new onset HFrEF and a right lower extremity DVT at that time. Was transferred to [facility] apparently for neurosurgical evaluation and IVC filter placement. Had IVC filter placed on 04/04. Did not require any neurosurgical intervention. Was apparently able to be discharged home without issue and has continued to live independently at home since that time. Vitals in ED unremarkable. Labs notable for WBC count 9.9, hemoglobin 12.1, platelets 288, INR 1.1, sodium 139, potassium 3.9, chloride 105, bicarb 26, BUN 29, creatinine 1.35, glucose 149, troponin normal. CT head without contrast showed old infarcts in the left frontoparietal and right occipital lobes, chronic involutional changes of the brain, no acute intracranial process. EKG showed normal sinus rhythm, no ST changes. Chest x-ray was unremarkable. [facility] Medical History Diabetes Stroke/cerebrovascular accident Home Medications aspirin 81 mg PO/SL DAILY 06/15/21 [History Last Taken Unknown] atorvastatin 40 mg PO/SL QHS 06/15/21 [History Last Taken Unknown] lisinopril 2.5 mg PO/SL DAILY 06/15/21 [History Last Taken Unknown] metformin 1,000 mg PO/SL BID 06/15/21 [History Last Taken Unknown] metoprolol succinate 25 mg PO/SL DAILY 06/15/21 [History Last Taken Unknown] senna-docusate sodium 8.6 mg PO/SL DAILY 06/15/21 [History Last Taken Unknown] loratadine 10 mg PO/SL DAILY 11/09/21 [History Last Taken Unknown] multivitamin 1 cap PO DAILY 12/26/21 [History Last Taken Unknown] Allergy/AdvReac Type Severity Reaction Status Date / Time No Known Allergies Allergy Verified 11/22/22 12:27 Social History Smoking Status: Never smoker ROS Constitutional Constitutional: Denies change in weight, chills, fatigue, fever(s) or weakness Eyes Eyes: Denies change in vision Cardiovascular Cardiovascular: Denies chest pain, edema, lightheadedness or rapid heart rate Respiratory/Chest Respiratory/Chest: Denies cough or shortness of breath at rest Gastrointestinal Gastrointestinal: Denies abdominal pain Neurologic Neurologic: Reports abnormal speech; Denies confusion, dizziness, focal weakness, headache(s), numbness, paresthesias or tingling Vital Signs Vital Signs Vital Signs: 11/22/22 09:48 11/22/22 10:36 11/22/22 10:23 Temperature 98.7 F Temperature Source Oral Pulse Rate 100 99 Respiratory Rate 21 H 19 H Blood Pressure 145/87 H 125/77 H Blood Pressure Mean 106 93 Pulse Ox 98 97 99 Oxygen Delivery Method Room Air Room Air 11/22/22 10:53 Temperature Temperature Source Pulse Rate 99 Respiratory Rate 18 Blood Pressure 107/55 L Blood Pressure Mean 72 Pulse Ox 98 Oxygen Delivery Method Room Air Weight Weight: 74.9 kg Body Mass Index (BMI) 23.6 Physical Exam Const alert, no apparent distress and average body habitus Constitutional Narrative: Pleasant elderly male, sitting comfortably in bed, alert. Appears to have mild cognitive delay and mild slurred speech, otherwise answering questions appropriately, no acute distress. General Appearance: cooperative and comfortable HEENT normocephalic, head/scalp atraumatic, hearing grossly normal bilaterally, nasal mucous membranes and turbinates normal and moist oral mucous membranes Eyes PERRL, EOMs intact bilaterally and conjunctivae normal Neck full ROM, no lymphadenopathy and supple Lymph Lymphatic: no lymphadenopathy noted Chest inspection of chest normal Resp normal respiratory effort, normal air movement, no use of accessory muscles and clear to auscultation bilaterally Cardio regular rate, regular rhythm, no murmurs and peripheral pulses 2+ throughout GI normal to inspection, nondistended, normoactive bowel sounds, soft to palpation, non-tender and non-distended Back/Spine normal ROM Extremity normal to inspection, full ROM and no pedal edema Skin no rashes or lesions noted Neuro moves all extremities and no focal motor deficits Sensorium / Orientation: awake and alert Motor Exam: strength 5/5 throughout Psych mental status grossly normal Results Lab / Micro Data 11/22/22 10:35 11/22/22 10:35 Labs: Laboratory Results - last 24 hr 11/22/22 10:35: WBC 9.9, RBC 4.00 L, Hgb 12.1 L, Hct 38.1 L, MCV 95.3 H, MCH 30.3, MCHC 31.8 L, RDW Std Deviation 44.0 H, RDW Coeff of Sara 12.6, Plt Count 298, MPV 10.5, Immature Gran % (Auto) 0.200, Neut % (Auto) 70.3 H, Lymph % (Auto) 18.5 L, [place] % (Auto) 9.3, Eos % (Auto) 1.1, Baso % (Auto) 0.6, Absolute Neuts (auto) 6.9, Absolute Lymphs (auto) 1.82, Nucleated RBC % 0, PT 13.7, INR 1.1, APTT 25.5, Sodium 139, Potassium 3.9, Chloride 105, Carbon Dioxide 26.0, Anion Gap 8, BUN 29 H, Creatinine 1.35 H, Estim Creat Clear Calc 53.32, Est GFR (MDRD) Af Amer 67, Est GFR (MDRD) Non-Af 56 L, BUN/Creatinine Ratio 21.5 H, Glucose 149 H, Calcium 9.3, Troponin I High Sens [address] 11/22/22 10:23 IMPRESSION: 1. Old infarcts in the left frontoparietal and right occipital lobes. 2. No acute intracranial process. 3. Chronic involutional changes of the brain. 4. If symptoms persist, MRI of the brain is recommended. Electronically Signed: Renato Jenkins MD at 11:25 EDT , Chest X-Ray 11/22/22 10:23 IMPRESSION: No interval change. No active or acute cardiopulmonary disease. Electronically Signed: Houston Paz MD at 11:06 EDT , Assessment & Plan Assessment/Plan (1) Dysarthria: PLAN: Plan Patient is a 71-year-old male with history of left MCA CVA s/p tenecteplase with hemorrhagic conversion and thrombectomy in 03/2021 with no residual deficits, DVT of RLE s/p IVC filter placement, history of dysphagia, HFrEF, type 2 diabetes and mild developmental delay who presented to [facility] ED on 11/22/2022 with new onset weakness and slurred speech. 1. New onset weakness and slurred speech, CVA rule out, history of CVA Patient lives at home on his own, independent with ADLs per family and friends. Friend brought him to the ED on morning of 11/22 because he was slurring his speech, dropped his coffee mug and reported hand weakness, and generally was not acting his normal self. NIHSS score of [address] head without contrast negative. Patient notably has history of left MCA CVA with hemorrhagic conversion after tenecteplase administration and thrombectomy back in 03/2021, see H&P for further details. ? Admit under observation status to PCU. Stroke protocol orders placed. MRI brain without contrast, echo, lipid panel, A1c orders placed. PT/OT/case management consulted. Speech therapy also consulted for history of dysphagia and concern for cognitive impairment as noted below. 2. HFrEF Diagnosed in 03/2021 during hospital admission for acute CVA. Echo done at that time showed an EF of 45%, mild LVH, no valvular abnormalities, no intracardiac shunting seen. Cardiology followed on that admission, patient was started on aspirin, statin, lisinopril and beta-erika. Patient reports adherence to his medications at home. Notably had lipid panel done in 04/2022 that showed a total cholesterol of 121, LDL 43, HDL 60, triglycerides 92. Not on home diuretics, appears euvolemic on admission. ? Repeat echo ordered as above. Continue home medications. Monitor. 3. History of mild developmental delay, concern for cognitive impairment Difficult to find if patient has history of significant developmental delay. On my interview with patient, he is answering most questions appropriately but appears to have some cognitive slowing and mildly slurred speech. Unclear on what patient's baseline is. However, according to family and friends patient is independent at home and does his own grocery shopping, finances, etc. Per neurology office note from [facility] from 12/2021, patient apparently had no cognitive impairment on testing but unclear of what testing this was. ? PT/OT/case management consulted. Speech therapy consulted for cognitive evaluation as well. 4. History of dysphagia Was reported after patient's previous CVA. Patient currently reports no issues with difficulty swallowing with regular diet at home. Denies any issues with swallowing currently. ? Speech therapy consulted as above. 5. History of DVT s/p IVC filter placement Patient was found to have a RLE DVT during previous hospitalization for stroke in 2021. Anticoagulation was contraindicated at that time due to his intracranial bleed. Had IVC filter placed on 04/04 at outside hospital. Difficult to find further records after this, unclear if IVC filter remains in place at this time. ? No concern for DVT/PE at this time. Monitor. Chronic medical conditions: ? Type 2 diabetes: Apparently had A1c of 14 when diagnosed with a stroke in 2021. Last two A1c results are 6.1% in 10/2021 and 6.0% in 04/2022. On home metformin 1000 mg twice daily. Sliding-scale insulin while inpatient. Repeat A1c ordered. DVT prophylaxis: SCDs CODE STATUS: Full code, unverified Expected disposition: Home, 1 to 2 days Total clinical time spent by myself addressing the patient's medical issues, reviewing all the data, and collaborating with patient's care team: 55 minutes. Charges/Coding Visit Charges Inpatient E&M: 00933 Init Hosp L2
--- NOTE | 2022-11-22 13:08 | MRI_ITS ---
We are attempting to reach an attending provider to discuss findings. An addendum with communication details will be sent when the communication is complete. STUDY: MRI BRAIN WITHOUT CONTRAST REASON FOR EXAM: Male, 71 years old. CVA rule out, slurred speech, weakness TECHNIQUE: Standardized multiplanar fat and water weighted pulse sequences were obtained. COMPARISON: CT of the brain November 22, 2022 FINDINGS: Mild atrophy and periventricular white matter ischemic changes without mass effect or restricted diffusion. However, there is gliosis in the right frontal and parietal lobes demonstrating restricted diffusion consistent with acute ischemic changes in distribution of right middle cerebral artery [Old left frontal temporal infarct.. Normal bilateral basal ganglia. Normal thalami. There is no extra-axial fluid accumulation. Normal flow voids within the major intracranial circulation suggesting patency by spin echo criteria. Partial empty sella deformity. Normal, infundibular stalk, optic chiasm and hypothalamus. Normal tectal plate and pineal gland. Normal midbrain, david and medulla. Tiny focus of chronic ischemia within the right cerebellar hemisphere. Normal basal cisterns. Normal bilateral temporal bones. Normal bilateral internal auditory canals. No demonstrated orbital abnormality, within the constraints of a routine brain study. Normal visualized paranasal sinuses. Normal calvarium and skull base. Normal visualized soft tissue structures. Normal visualized upper cervical spine. MRI/Brain without Contrast IMPRESSION: Acute infarct in the right parietal lobe. Old left frontal temporal infarct Electronically Signed: Roger Segovia MD at 19:00 EDT ,
--- NOTE | 2022-11-22 13:08 | ECHOCS_ITS ---
Reason For Study: TIA/CVA Procedure This was a 2D Doppler, Color Flow transthoracic echocardiogram. The study was technically difficult. PT had difficulty lying still for exam. Contrast injection was performed. Exam performed portable in ICU/CCU. Left Ventricle Normal LV size. The estimated ejection fraction is 65 %. Normal diastology for age. No regional wall motion abnormalities noted. Right Ventricle Normal RV size. Normal systolic function. Atria Normal left atrium. Normal right atrium. No doppler evidence for ASD. Bubble contrast study negative for right to left interatrial shunt. Mitral Valve There is no mitral valve stenosis. No mitral valve insufficiency. Tricuspid Valve There is no tricuspid stenosis. No tricuspid valve insufficiency. Aortic Valve Trisinus/trileaflet aortic valve. There is no aortic stenosis. No aortic valve insufficiency. Pulmonic Valve There is no pulmonic valvular stenosis. No pulmonic valve insufficiency. Great Vessels Normal aortic root. Pericardium/Pleural No pericardial effusion. Medication Diluted definity 3.0ml given slow IV push to enhance endocardial definition. Performed a rapid injection of agitated mix of 9 cc saline and 1cc air to assess for atrial septal defect. MMode/2D Measurements & Calculations RVDd: 2.9 cm Ao root diam: 3.4 cm LAV(MOD-bp): 41.2 ml LAV(MOD-bp) Indexed: 21.4 ml/m2 LAV(MOD-sp2): 40.9 ml LAV(MOD-sp4): 40.2 ml SV(MOD-sp4): 32.4 ml LVAd ap4: 24.3 cm2 LVAd ap2: 19.8 cm2 LVLd ap4: 8.0 cm LVLd ap2: 8.0 cm EDV(MOD-sp4): 61.3 ml EDV(MOD-sp2): 40.4 ml EDV(sp4-el): 62.6 ml EDV(sp2-el): 41.6 ml LVAs ap4: 15.4 cm2 LVAs ap2: 12.2 cm2 LVLs ap4: 6.8 cm LVLs ap2: 7.2 cm ESV(MOD-sp4): 28.9 ml ESV(MOD-sp2): 17.2 ml ESV(sp4-el): 29.6 ml ESV(sp2-el): 17.5 ml EF(MOD-sp4): 52.8 % EF(MOD-sp2): 57.4 % EF(sp4-el): 52.7 % SV(MOD-sp2): 23.2 ml SV(sp4-el): 33.0 ml LA A4 area: 15.8 cm2 LA dimension(2D): 3.1 cm TAPSE: 2.4 cm RA A4 area: 11.9 cm2 Time Measurements MV dec time: 0.19 sec Doppler Measurements & Calculations MV E max mukul: 76.4 cm/sec Lat Peak E' Mukul: 8.9 cm/sec Med Peak E' Mukul: 6.0 cm/sec MV A max mukul: 117.0 cm/sec E/E' lat: 8.6 E/E' med: 12.8 MV E/A: 0.65 MV dec slope: 401.6 cm/sec2 Ao V2 max: 108.3 cm/sec LV V1 max: 96.7 cm/sec Ao max P.7 mmHg LV V1 max P.7 mmHg Ao V2 mean: 79.9 cm/sec LV V1 mean P.9 mmHg Ao mean P.8 mmHg LV V1 mean: 63.9 cm/sec Ao V2 VTI: 21.4 cm LV V1 VTI: 18.8 cm AV (velocity ratio): 0.88 PA V2 max: 82.9 cm/sec PA V2 mean: 63.3 cm/sec ECHO/Echo Complete W/ Contrast Interpretation Summary The estimated ejection fraction is 65 %. Ordering Physician: Jerod Cavazos Referring Physician: Madhavi Chaudhry Performed By: Marlen Arthur, ARLETTE, RVT
--- NOTE | 2022-11-22 17:13 | NURSING ---
Patients sister from [place], Renate Francois, present at bedside. Stated hat patients has people come check on him a couple times per week. She did not know what company they are with but had a contact number for Dorinda who oversee's his care. Dorinda's phone number:
--- NOTE | 2022-11-22 21:17 | PCM.HOSP.N ---
Hospitalist Note Critical result for MRI brain finding called by Dr. Roger Mata. MRI brain reports acute infarction right parietal lobe. Old left frontotemporal infarct. About 6 cm by 3 cm patchy areas but no big local dense area as per neurologist. SOC consulted. NIH IS 1. Patient on baby aspirin and atorvastatin.Plavix 75 mg daily added.
[2022-11-23] VITALS (9 sets, daily range): BP systolic 111–133; BP diastolic 59–85; PULSE 66–88; RESP 16–18; TEMP 36.3–36.8; O2SAT 95–100; BMI 22.4
[2022-11-23 06:13] LABS: Cholesterol 97 mg/dL (200); High Density Lipoprotein 51 mg/dL; Triglycerides 77 mg/dL; Very Low Density Lipoprotein 15 mg/dL (5-40)
[2022-11-23 08:30] LABS: Hematocrit 37.8 % (40-54); Hemoglobin 12.5 g/dL (13.0-16.5); Mean Corp Hgb Conc 33.1 g/dL (32-36); Mean Corpuscular Hgb 30.9 pg (27.0-32.0); Mean Corpuscular Volume 93.3 fL (80-94); Mean Platelet Vol. 10.5 fl (6.2-12.0); Platelet Count 280 K/mm3 (150-450); RBC Distribution Width CV 12.6 % (11.6-14.6); RBC Distribution Width SD 43.4 fl (35.1-43.9); Red Blood Count 4.05 M/mm3 (4.6-6.2); White Blood Count 7.2 K/mm3 (4.4-11.0)
[2022-11-23 08:50] LABS: Anion Gap 6 (5-15); BUN 22 mg/dL (7-18); BUN/Creat Ratio 20.4 RATIO (10-20); Calcium,Total 8.9 mg/dL (8.5-10.1); Chloride 104 mmol/L (98-107); Creatinine, Serum 1.08 mg/dL (0.70-1.30); EST Glomerular Filtration Rate 72 mL/min (>60); Est Glom Filt Rate - Afr Amer 87 mL/min (>60); Estimated Creatinine Clearance 64.83 ml/min; Glucose 100 mg/dL (74-106); Potassium 3.8 mmol/L (3.5-5.1); Sodium Level 137 mmol/L (136-145)
--- NOTE | 2022-11-23 10:32 | DCINST_ITS ---
Discharge Instructions Diet Discharge Diet: - (Distant supervision, oral care after meals per speech therapy) Activity Discharge Activity: Return to Normal Activity Weight Bearing Status: Full weight bearing Follow Up Care Please Follow Up With: Madhavi Chaudhry DO When: As needed Test Results: Test results from this visit will be discussed in further detail at your follow- up appointment, if applicable. Pending Tests Upon Discharge: None Discharge Plan Admission Admit Date/Time: 11/23/22 16:47 Primary Reason for Your Visit: Acute CVA Attending Provider: Jerod Cavazos Primary Care Provider: Madhavi Chaudhry Instructions Additional Instructions / Restrictions: Please take your medications as follows: ? Take both aspirin 81 mg daily and Plavix 75 mg daily for the next 3 weeks, then ? Take only Plavix 35 mg daily going forward Please take all other medications as previously prescribed. Would recommend scheduling follow-up appointments with both your primary care doctor and the neurologist that you were seen with given clinic within the next several weeks. Discharge Orders/Prescriptions Prescriptions: New clopidogrel 75 mg Tablet 75 mg PO DAILY 90 Days Qty: 90 3RF Continued aspirin 81 mg tablet 81 mg PO/SL DAILY atorvastatin 40 mg tablet 40 mg PO/SL QHS lisinopril 2.5 mg tablet 2.5 mg PO/SL DAILY metformin 500 mg tablet 1,000 mg PO/SL BID metoprolol succinate 25 mg tablet 25 mg PO/SL DAILY senna-docusate sodium 8.6 mg tablet 8.6 mg PO/SL DAILY Rx Instructions: 2 tabs daily loratadine 10 mg tablet 10 mg PO/SL DAILY multivitamin Capsule 1 cap PO DAILY Referrals / Follow Up: Madhavi Chaudhry DO [Primary Care Provider] - Disposition Disposition (needs filled in before D/C Order can be placed): Inpatient Rehab Unit/Facility
--- NOTE | 2022-11-23 10:33 | PCM.DC.SUM ---
Providers Date of Admission: 11/23/22 Date of Discharge: 11/24/22 Primary Care Physician: Madhavi Chaudhry DO Reason For Visit: CVA Diagnosis Discharge Diagnosis (1) Dysarthria: Status: Acute Code(s): R47.1 - Dysarthria and anarthria Medications at Discharge Home Medications aspirin 81 mg PO/SL DAILY heart health 06/15/21 atorvastatin 40 mg PO/SL QHS cholesterol 06/15/21 lisinopril 2.5 mg PO/SL DAILY blood pressure 06/15/21 metformin 1,000 mg PO/SL BID Glucose 06/15/21 metoprolol succinate 25 mg PO/SL DAILY Blood Pressure 06/15/21 loratadine 10 mg PO/SL DAILY Allergies 11/09/21 multivitamin 1 cap PO DAILY supplement 12/26/21 clopidogrel 75 mg tablet 75 mg PO DAILY DVT Proph 90 days #90 tabs 11/23/22 Hospital Course Operations None Procedures EKG, Transthoracic echo and - (CT brain without contrast, chest x-ray, MRI brain without contrast) Summary of Care Provided Minutes Spent on Discharge: 35 Hospital Course: Patient is a 71-year-old male with 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 Hospital course with multiple medical conditions addressed as noted below. Acute right MCA CVA, history of left MCA CVA: MRI brain without contrast on 11/23 showed an acute infarct in the right parietal lobe in the territory of the right MCA. Patient's friend brought him to the ED on the morning of 11/22 because he was slurring his speech, dropped his coffee mug and reported hand weakness, and generally was not acting his normal self. NIHSS score of [address] head without contrast negative on admit. Echo showed an EF of 65%, no intracardiac thrombi noted, no valvular disease noted. Lipid panel with good lipid control on home statin. Patient started on Plavix on evening of 11/22 after MRI showed acute stroke. Patient notably has history of left MCA CVA with hemorrhagic conversion after tenecteplase administration and thrombectomy back in 03/2021, see H&P for further details. Teleneurology followed. Agreed with adding Plavix to regimen. Plan is for dual antiplatelet therapy with aspirin and Plavix for 3 weeks, followed by Plavix therapy alone. Continue home statin. Neurology noted that infarcts on MRI do have the appearance of embolic infarcts. Patient does not have previous diagnosis of A-fib, EKG on admit was normal sinus rhythm and telemetry showed sinus rhythm throughout admission. Will need Holter monitor for further evaluation going forward and if this is negative, will likely need loop recorder placed. PT/OT/case management/speech therapy followed, noted mild deficits with cognitive impairment as noted below. Recommended inpatient rehab on discharge. Patient discharged to inpatient rehab at [facility]CU in stable condition. Heart failure with recovered ejection fraction: Diagnosed in 03/2021 during hospital admission for acute CVA. Echo done at that time showed an EF of 45%, mild LVH, no valvular abnormalities, no intracardiac shunting seen. Cardiology followed on that admission, patient was started on aspirin, statin, lisinopril and beta-erika. Patient reports adherence to his medications at home. Notably had lipid panel done in 04/2022 that showed a total cholesterol of 121, LDL 43, HDL 60, triglycerides 92. Not on home diuretics, appears euvolemic on admission. Repeat echo on 11/22 showed EF 65%, no LV dysfunction, no atrial dilation, no valvular changes. Continue home aspirin, statin, lisinopril and beta-erika on discharge. Recommend outpatient cardiology follow-up as needed. Cognitive impairment with possible vascular dementia: Speech therapy evaluated, noted that patient demonstrates moderate cognitive?linguistic impairment characterized by deficits in comprehension, repetition, word retrieval and short MRI recall. Also had concern for some left-sided neglect from visual scanning task. Speech therapy recommended inpatient rehab prior to discharge and noted patient may need additional services at home on discharge. Patient notably does have a home health care nurse who comes in twice weekly to help him with medication management and other things around the house. History of dysphagia: Speech therapy followed, diagnosed patient with mild oral phase dysphagia, recommended either to textures with thin liquids and distant supervision. History of DVT s/p IVC filter placement: Patient was found to have a RLE DVT during previous hospitalization for stroke in 2021. Anticoagulation was contraindicated at that time due to his intracranial bleed. Had IVC filter placed on 04/04 at outside hospital. Difficult to find further records after this, unclear if IVC filter remains in place at this time. No concern for DVT during this admission. Discharge diagnoses: ? Acute right MCA CVA ? Cognitive impairment with possible vascular dementia ? Heart failure with recovered ejection fraction ? Mild dysphagia ? Type 2 diabetes, well controlled Total clinical time spent by myself addressing the patient's medical issues, reviewing all the data, and collaborating with patient's care team: 35 minutes. Physical Exam Const alert, oriented x3, no apparent distress, average body habitus, healthy appearing and well nourished Constitutional Narrative: Pleasant elderly male, sitting comfortably in bed, alert. Appears to have mild cognitive delay and mild slurred speech, otherwise answering questions appropriately, no acute distress. General Appearance: cooperative, comfortable, well kempt and well developed HEENT normocephalic, head/scalp atraumatic, hearing grossly normal bilaterally, nasal mucous membranes and turbinates normal and moist oral mucous membranes Eyes PERRL, EOMs intact bilaterally and conjunctivae normal Neck full ROM, no lymphadenopathy and supple Lymph Lymphatic: no lymphadenopathy noted Chest inspection of chest normal Resp normal respiratory effort, normal air movement, no use of accessory muscles and clear to auscultation bilaterally Cardio regular rate, regular rhythm, no murmurs and peripheral pulses 2+ throughout GI normal to inspection, nondistended, normoactive bowel sounds, soft to palpation, non-tender and non-distended Back/Spine normal ROM Extremity normal to inspection, full ROM and no pedal edema Skin no rashes or lesions noted Neuro moves all extremities and no focal motor deficits Sensorium / Orientation: awake and alert Psych mental status grossly normal Weight / BMI Weight Weight: 71 kg Body Mass Index (BMI) 22.4 ABG / Lab / Microbiology Data 11/23/22 08:00 11/23/22 08:00 Laboratory: Laboratory Results - last 24 hr 11/22/22 10:35: WBC 9.9, RBC 4.00 L, Hgb 12.1 L, Hct 38.1 L, MCV 95.3 H, MCH 30.3, MCHC 31.8 L, RDW Std Deviation 44.0 H, RDW Coeff of Sara 12.6, Plt Count 298, MPV 10.5, Immature Gran % (Auto) 0.200, Neut % (Auto) 70.3 H, Lymph % (Auto) 18.5 L, Yates % (Auto) 9.3, Eos % (Auto) 1.1, Baso % (Auto) 0.6, Absolute Neuts (auto) 6.9, Absolute Lymphs (auto) 1.82, Nucleated RBC % 0, PT 13.7, INR 1.1, APTT 25.5, Sodium 139, Potassium 3.9, Chloride 105, Carbon Dioxide 26.0, Anion Gap 8, BUN 29 H, Creatinine 1.35 H, Estim Creat Clear Calc 53.32, Est GFR (MDRD) Af Amer 67, Est GFR (MDRD) Non-Af 56 L, BUN/Creatinine Ratio 21.5 H, Glucose 149 H, Calcium 9.3, Troponin I High Sens 23 11/23/22 05:45: Triglycerides 77, Cholesterol 97, LDL Cholesterol 31, VLDL Cholesterol 15, HDL Cholesterol 51 11/23/22 08:00: WBC 7.2, RBC 4.05 L, Hgb 12.5 L, Hct 37.8 L, MCV 93.3, MCH 30.9, MCHC 33.1, RDW Std Deviation 43.4, RDW Coeff of Sara 12.6, Plt Count 280, MPV 10.5, Sodium 137, Potassium 3.8, Chloride 104, Carbon Dioxide 27.0, Anion Gap 6, BUN 22 H, Creatinine 1.08, Estim Creat Clear Calc 64.83, Est GFR (MDRD) Af Amer 87, Est GFR (MDRD) Non-Af 72, BUN/Creatinine Ratio 20.4 H, Glucose 100, Calcium 8.9 Radiography Diagnostic Testing: Radiology Impression Brain CT 11/22/22 10:23 IMPRESSION: 1. Old infarcts in the left frontoparietal and right occipital lobes. 2. No acute intracranial process. 3. Chronic involutional changes of the brain. 4. If symptoms persist, MRI of the brain is recommended. Electronically Signed: Renato Jenkins MD at 11:25 EDT , Chest X-Ray 11/22/22 10:23 IMPRESSION: No interval change. No active or acute cardiopulmonary disease. Electronically Signed: Houston Paz MD at 11:06 EDT , Brain MRI 11/22/22 13:08 IMPRESSION: Acute infarct in the right parietal lobe. Old left frontal temporal infarct Electronically Signed: Roger Segovia MD at 19:00 EDT , ADDENDUM: 11/22/221955 IMPRESSION: Acute infarct in the right parietal lobe. Old left frontal temporal infarct N.B. : The above Results were Read Back by Roger Segovia MD to Irish Brantley RN, and understanding confirmed on 11/22/2022 19:49:42 (ET). Electronically Signed: Roger Segovia MD at 19:00 EDT , ADDENDUM: 11/22/222125 IMPRESSION: Acute infarct in the right parietal lobe. Old left frontal temporal infarct N.B. : The above Results were Read Back by Roger Segovia MD to Brendan Mccollum MD, and understanding confirmed on 11/22/2022 21:19:58 (ET). Electronically Signed: Roger Segovia MD at 19:00 EDT , Echocardiogram 11/22/22 13:08 Interpretation Summary The estimated ejection fraction is 65 %. Ordering Physician: Jerod Cavazos Referring Physician: Madhavi Chaudhry Performed By: Marlen Arthur RDCS, RVT Meaningful Use Info Meaningful Use Diagnoses (Choose all that apply): None applicable Discharge Plan Admission Admit Date/Time: 11/23/22 16:47 Primary Reason for Your Visit: Acute CVA Attending Provider: Jerod Cavazos Primary Care Provider: Madhavi Chaudhry Instructions Additional Instructions / Restrictions: Please take your medications as follows: ? Take both aspirin 81 mg daily and Plavix 75 mg daily for the next 3 weeks, then ? Take only Plavix 35 mg daily going forward Please take all other medications as previously prescribed. Would recommend scheduling follow-up appointments with both your primary care doctor and the neurologist that you were seen with given clinic within the next several weeks. Discharge Orders/Prescriptions Prescriptions: New clopidogrel 75 mg Tablet 75 mg PO DAILY 90 Days Qty: 90 3RF Continued aspirin 81 mg tablet 81 mg PO/SL DAILY atorvastatin 40 mg tablet 40 mg PO/SL QHS lisinopril 2.5 mg tablet 2.5 mg PO/SL DAILY metformin 500 mg tablet 1,000 mg PO/SL BID metoprolol succinate 25 mg tablet 25 mg PO/SL DAILY loratadine 10 mg tablet 10 mg PO/SL DAILY multivitamin Capsule 1 cap PO DAILY Referrals / Follow Up: Madhavi Chaudhry DO [Primary Care Provider] - Disposition Disposition (needs filled in before D/C Order can be placed): Inpatient Rehab Unit/Facility Charges/Coding Visit Charges Inpatient E&M: 57894 Disch Hosp >30min
--- NOTE | 2022-11-23 11:54 | CHAPLAIN ---
Type of Pastoral Visit _x__ Initial Visit ___ Follow-up Visit ___ On-call Visit ___ General Patient Visit ___ Spiritual Assessment ___ Family Conference ___ Bereavement ___ Rapid Response ___ Code Blue ___ Other (describe below) Pastoral Care Referral From _x__ Patient ___ Family ___ Nurse ___ Physician ___ Quick Print Operator ___ Sweet Goods Machine Operator ___ Other (describe below) Sacrament/Intervention _x__ Active listening ___ Anointing ___ Roman Catholic ___ Bereavement ___ Communion ___ Iqra exploration ___ ___ Life review ___ Prayer ___ Reconciliation ___ Sacrament of Sick _x__ Supportive presence ___ Wedding ___ Other (describe below) Pastoral Comments patient is welcoming; pt gives some details about life; mostly conversation about interests of patient and the fall season; supportive presence
--- NOTE | 2022-11-23 14:42 | PN.HOSP_ITS ---
Reason for Visit Reason for Visit: Diagnoses Dysarthria and anarthria (11/22/22) Subjective Subjective Patient seen at bedside this morning, sister and friend present. Patient laying comfortably in bed, conversing normally, no acute distress. Sister notes that patient appears to be closer to his baseline from mental status standpoint today. She did notice some lip droop and left hand weakness yesterday, and the seem to be improving today. Patient's friend also states that he seems close to his baseline. Patient currently denies any acute pain or discomfort. Denies any weakness or numbness or tingling. Denies any vision changes. No other acute concerns. Objective Data Objective Data Vital Signs: Vital Signs Temp Pulse Resp BP Pulse Ox O2 Del Method 98.3 F 71 16 122/67 H 98 Room Air 11/23/22 10:00 11/23/22 14:00 11/23/22 14:00 11/23/22 14:00 11/23/22 10:00 11/23/22 14:00 Oxygen Delivery Method Room Air Weight: 71 kg Body Mass Index (BMI) 22.4 Lab / Micro Data 11/23/22 08:00 11/23/22 08:00 Labs: Laboratory Results - last 24 hr 11/23/22 05:45: Triglycerides 77, Cholesterol 97, LDL Cholesterol 31, VLDL Cholesterol 15, HDL Cholesterol 51 11/23/22 08:00: WBC 7.2, RBC 4.05 L, Hgb 12.5 L, Hct 37.8 L, MCV 93.3, MCH 30.9, MCHC 33.1, RDW Std Deviation 43.4, RDW Coeff of Sara 12.6, Plt Count 280, MPV 10.5, Sodium 137, Potassium 3.8, Chloride 104, Carbon Dioxide 27.0, Anion Gap 6, BUN 22 H, Creatinine 1.08, Estim Creat Clear Calc 64.83, Est GFR (MDRD) Af Amer 87, Est GFR (MDRD) Non-Af 72, BUN/Creatinine Ratio 20.4 H, Glucose 100, Calcium 8.9 Radiography Diagnostic Testing: Radiology Impression Brain MRI 11/22/22 13:08 IMPRESSION: Acute infarct in the right parietal lobe. Old left frontal temporal infarct Electronically Signed: Roger Segovia MD at 19:00 EDT , ADDENDUM: 11/22/221955 IMPRESSION: Acute infarct in the right parietal lobe. Old left frontal temporal infarct N.B. : The above Results were Read Back by Roger Segovia MD to Irish Brantley RN, and understanding confirmed on 11/22/2022 19:49:42 (ET). Electronically Signed: Roger Segovia MD at 19:00 EDT , ADDENDUM: 11/22/222125 IMPRESSION: Acute infarct in the right parietal lobe. Old left frontal temporal infarct N.B. : The above Results were Read Back by Roger Segovia MD to Brendan Mccollum MD, and understanding confirmed on 11/22/2022 21:19:58 (ET). Electronically Signed: Roger Segovia MD at 19:00 EDT , Echocardiogram 11/22/22 13:08 Interpretation Summary The estimated ejection fraction is 65 %. Ordering Physician: Jerod Cavazos Referring Physician: Madhavi Chaudhry Performed By: Marlen Arthur, ARLETTE, RVT Physical Exam Const alert, no apparent distress and average body habitus Constitutional Narrative: Pleasant elderly male, sitting comfortably in bed, alert. Appears to have mild cognitive delay and mild slurred speech, otherwise answering questions appropriately, no acute distress. General Appearance: cooperative and comfortable HEENT normocephalic, head/scalp atraumatic, hearing grossly normal bilaterally, nasal mucous membranes and turbinates normal and moist oral mucous membranes Eyes PERRL, EOMs intact bilaterally and conjunctivae normal Neck full ROM, no lymphadenopathy and supple Lymph Lymphatic: no lymphadenopathy noted Chest inspection of chest normal Resp normal respiratory effort, normal air movement, no use of accessory muscles and clear to auscultation bilaterally Cardio regular rate, regular rhythm, no murmurs and peripheral pulses 2+ throughout GI normal to inspection, nondistended, normoactive bowel sounds, soft to palpation, non-tender and non-distended Back/Spine normal ROM Extremity normal to inspection, full ROM and no pedal edema Skin no rashes or lesions noted Neuro moves all extremities and no focal motor deficits Sensorium / Orientation: awake and alert Psych mental status grossly normal Assessment & Plan Assessment/Plan (1) CVA (cerebrovascular accident): PLAN: Plan Patient is a 71-year-old male with 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 ED on 11/22/2022 with new onset weakness and slurred speech. 1. Acute right MCA CVA, history of left MCA CVA MRI brain without contrast on 11/23 showed an acute infarct in the right parietal lobe in the territory of the right MCA. Patient's friend brought him to the ED on the morning of 11/22 because he was slurring his speech, dropped his coffee mug and reported hand weakness, and generally was not acting his normal self. NIHSS score of [address] head without contrast negative on admit. Echo showed an EF of 65%, no intracardiac thrombi noted, no valvular disease noted. Lipid panel with good lipid control on home statin. Patient started on Plavix on evening of 11/22 after MRI showed acute stroke. Patient notably has history of left MCA CVA with hemorrhagic conversion after tenectepl ase administration and thrombectomy back in 03/2021, see H&P for further details. ? Teleneurology following. Agreed with adding Plavix to regimen. Plan for dual antiplatelet therapy with aspirin and Plavix for 3 weeks, followed by Plavix therapy alone. Continue home statin medication. Noted that infarcts on MRI do have the appearance of embolic infarcts. Patient notably does not have a diagnosis of A-fib, EKG on admit was NSR and telemetry has shown NSR throughout this admission. Neurology recommended Holter monitor going home and if that is negative, may need loop recorder. PT/OT/case management/speech therapy following, recommending inpatient rehab on discharge; medically stable for discharge, placement pending. Continue telemetry. 2. Heart failure with recovered ejection fraction Diagnosed in 03/2021 during hospital admission for acute CVA. Echo done at that time showed an EF of 45%, mild LVH, no valvular abnormalities, no intracardiac shunting seen. Cardiology followed on that admission, patient was started on aspirin, statin, lisinopril and beta-erika. Patient reports adherence to his medications at home. Notably had lipid panel done in 04/2022 that showed a total cholesterol of 121, LDL 43, HDL 60, triglycerides 92. Not on home diuretics, appears euvolemic on admission. Repeat echo on 11/22 showed EF 65%, no LV dysfunction, no atrial dilation, no valvular changes. ? Continue home medications. Recommend outpatient cardiology follow-up as needed. 3. Concern for cognitive impairment with possible vascular dementia Difficult to find if patient has history of significant developmental delay. On my interview with patient, he is answering most questions appropriately but appears to have some cognitive slowing and mildly slurred speech. Unclear on what patient's baseline is. However, according to family and friends patient is independent at home and does his own grocery shopping, finances, etc. Per neurology office note from [facility] from 12/2021, patient apparently had no cognitive impairment on testing but unclear of what testing this was. Discussed with patient's sister and friend on 11/23 at bedside, patient does have a home health nurse that comes twice per week to check on him and make sure he is taking his medications correctly. ? Speech therapy evaluated, noted that patient demonstrates moderate cognitive?linguistic impairment characterized by deficits in comprehension, repetition, word retrieval and short MRI recall. Also had concern for some left-sided neglect from visual scanning task. Recommending inpatient rehab prior to discharge home due to concerns for patient's ability to stay for complete ADL tasks, especially medication management given his current deficits. Case management following for placement as above. 4. History of dysphagia Was reported after patient's previous CVA. Patient currently reports no issues with difficulty swallowing with regular diet at home. Denies any issues with swallowing currently. ? Speech therapy following, diagnosis of mild oral phase dysphagia, recommended either to textures with thin liquids and distant supervision. 5. History of DVT s/p IVC filter placement Patient was found to have a RLE DVT during previous hospitalization for stroke in 2021. Anticoagulation was contraindicated at that time due to his intracranial bleed. Had IVC filter placed on 04/04 at outside hospital. Difficult to find further records after this, unclear if IVC filter remains in place at this time. ? No concern for DVT/PE at this time. Monitor. Chronic medical conditions: ? Type 2 diabetes: Apparently had A1c of 14 when diagnosed with a stroke in 2021. Last two A1c results are 6.1% in 10/2021 and 6.0% in 04/2022. On home metformin 1000 mg twice daily. Sliding-scale insulin while inpatient. Repeat A1c pending. DVT prophylaxis: SCDs CODE STATUS: Full code, verified Expected disposition: Inpatient rehab, medically ready for discharge Total clinical time spent by myself addressing the patient's medical issues, reviewing all the data, and collaborating with patient's care team: 35 minutes. Charges/Coding Visit Charges Inpatient E&M: 99611 Subs Hosp L2
--- NOTE | 2022-11-23 14:45 | CASEMGMT ---
GIOVANNI CM Face to Face with patient for initial transition planning/care coordination assessment. RN CM introduced self and role at [facility]. Patient sitting in chair, alert and oriented, sisters at bedside. Patient willing to participate in assessment and is able to answer all questions appropriately. Care providers, pharmacy, and demographics verified. ST and OT recommending inpatient rehab at discharge. RN CECILE discussed inpatient rehab with patient. Patient and sisters agreeable to [facility] and declined list of rehab units. Patient states he has no further needs or concerns at this time. CM to follow for discharge planning needs that may arise. PCP: Richa Specialists: none Preferred [facility]acy[facility] Insurance: [facility], [employer] Prescription Benefit: yes Living Will/HPOA: yes, sister Renate LNOK: sisters Living Arrangements: Patient lives alone in a first floor apartment with 3 steps to enter. Patient is independent at home. Transportation: self, sister DME/HHC: Patient denies DME in the home. Patient is active with [facility]. Disposition Plan: Inpatient rehab pending acceptance. Shilpi MEYER, RN, CM
--- NOTE | 2022-11-23 14:55 | CASEMGMT ---
Met with patients sister to complete ALMONTE form. ALMONTE form explained to patients sister who voiced understanding and signed form. Original form placed in pt?s chart and copy provided to his sister. Leighann Coles, Discharge Planning Asst.
--- NOTE | 2022-11-23 16:59 | CASEMGMT ---
LAMONT spoke with RN CECILE and patient is interested in [facility] Acute Rehab. LAMONT made a referral to [facility]. Ankita will have Mary review the patient in the am as she is gone for the day. Plan: d/c to Acute Rehab pending their acceptance. Audrey TREVIZO
[2022-11-23] MEDS: Atorvastatin Calcium 40 MG Tablet PO (20:18)
[2022-11-24 02:00] VITALS: BP 150/87; PULSE 85; RESP 18; TEMP 36.4; O2SAT 99
[2022-11-24 06:00] VITALS: BP 119/89; PULSE 85; RESP 16; TEMP 36.2; O2SAT 96
--- NOTE | 2022-11-24 07:55 | CASEMGMT ---
Patient was accepted in [facility] Acute Rehab unit. SW will notify physician. Plan: d/c to [facility] Acute Rehab Unit Audrey TREVIZO
[2022-11-24 09:04] VITALS: PULSE 101
[2022-11-24] MEDS: Metoprolol(XL)Succ 25 MG Tablet PO (09:04)
[2022-11-24] MEDS: Clopidogrel Bisulfate 75 MG Tablet PO (09:04)
[2022-11-24] MEDS: Multivitamins,Therapeutic Tablet 1 TABLET PO (09:04)
[2022-11-24] MEDS: Aspirin 81 MG TAB.CHEW PO (09:04)
[2022-11-24] MEDS: Senna/Docusate Sodium 1 Tablet 2 TABLET PO (09:05)
[2022-11-24] MEDS: Loratadine 10 MG Tablet PO (09:05)
--- NOTE | 2022-11-24 10:47 | CASEMGMT ---
Patient politely declined PHQ 9. Audrey Logan OPERATING ROOM SPECIALIST JOSELINE
--- NOTE | 2022-11-24 10:52 | CASEMGMT ---
SW spoke with patient and his sister Renate. SW introduced self and role at [facility]. SW let both know that [facility] Acute Rehab accepted patient and he will go today. SW then explained a little about the rehab unit. Both were agreeable. SW notified RN and physician that patient is okay to go to the Rehab Unit today. Plan: d/c to [facility] Acute Rehab Unit Audrey TREVIZO
[2022-11-24 13:05] VITALS: BP 118/77; PULSE 97; RESP 16; TEMP 36.2; O2SAT 96
== END 2022-11-24 13:00 | DRG 65 ==
LOC: ED 10:36 → ICU 12:35
PROVIDERS: Admitting Provider Hospitalist; Emergency Provider Emergency Medicine; PCP Family Medicine; Visit Provider Hospitalist
DX: I63.511 Cerebral infarction due to unspecified occlusion or stenosis of right middle cerebral artery (principal); I50.32 Chronic diastolic (congestive) heart failure; E11.9 Type 2 diabetes mellitus without complications; F01.50 Vascular dementia, unspecified severity, without behavioral disturbance, psychotic disturbance, mood disturbance, and anxiety; R62.50 Unspecified lack of expected normal physiological development in childhood; R41.89 Other symptoms and signs involving cognitive functions and awareness; R13.10 Dysphagia, unspecified; Z79.82 Long term (current) use of aspirin; Z79.84 Long term (current) use of oral hypoglycemic drugs; Z79.899 Other long term (current) drug therapy; R47.1 Dysarthria and anarthria; R29.810 Facial weakness; R29.704 NIHSS score 4
CPT/HCPCS: 70450; 70551; 71045; 80048; 80061; 84484; 85025; 85027; 85610; 85730; 92507; 92523; 92610; 93005; 93306; 97162; 97166; 99285; Q9957; A4216; C8929

== ENCOUNTER 2022-11-24 13:54 | Inpatient (IN) | payer MEDICARE, OTHER, SELFPAY ==
[2022-11-24 14:33] VITALS: BMI 22.1
--- NOTE | 2022-11-24 14:37 | EX.PCM.HP.RE ---
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 NC CT brain showed old infarcts in the L frontotemporal area and also in the R occipital area. There were no acute findings. He did not have a CTA of the H&N. He was admitted to the hospitalist service and ASA, Plavix, Beta erika and statin were continued. Consult with tele-neurology was ordered. DAPT was recommended for 3 weeks and then DC ASA. CTA and MRI were recommended. The MRI showed R frontal and R temporal acute ischemic infarcts. CTA was not done but, he had an ECHO that showed an EF of 65% with no motion abnormalities. Bubble study was negative and both atria were of normal size. He was seen by therapy and acute rehab was recommended. Ramon was transferred to the acute inpt rehab unit at [facility] on 11/24/22 for 3 hours of therapy daily to restore function/independence at or near his baseline prior to the recent stroke. He was living by himself and able to accomplish all ADL independently. He tells me that he no longer drives and that he does not cook but, he knows how to use the microwave. Initial VS at presentation to rehab: BP 114/77, HR 93, RR 16, Temp 98.3 and O2 sat 97% on RA. [facility] Medical History (Updated 11/24/22 @ 15:[address] Connie He, ) DM II (diabetes mellitus, type II), controlled History of developmental delay History of DVT (deep vein thrombosis) Remote history of stroke Stroke/cerebrovascular accident Home Medications aspirin 81 mg PO/SL DAILY heart health 06/15/21 [History Last Taken 11/24/22] atorvastatin 40 mg PO/SL QHS cholesterol 06/15/21 [History Last Taken 11/23/22] lisinopril 2.5 mg PO/SL DAILY blood pressure 06/15/21 [History Last Taken 11/24/22] metformin 1,000 mg PO/SL BID Glucose 06/15/21 [History Last Taken Unknown] metoprolol succinate 25 mg PO/SL DAILY Blood Pressure 06/15/21 [History Last Taken 11/24/22] loratadine 10 mg PO/SL DAILY Allergies 11/09/21 [History Last Taken 11/24/22] multivitamin 1 cap PO DAILY supplement 12/26/21 [History Last Taken 11/24/22] clopidogrel 75 mg tablet 75 mg PO DAILY DVT Proph 90 days #90 tabs 11/23/22 [Rx Last Taken 11/24/22] Allergy/AdvReac Type Severity Reaction Status Date / Time No Known Allergies Allergy Verified 11/22/22 12:27 Family History unable to obtain unable to obtain (Unable to obtain at this time. He has 3 sisters Renate, Julissa and Georgina. will go over FH with 1 of them when they are available. None are currently present. ) Surgical History no surgical history no surgical history (Ramon denies any surgical hx........will verify with family) Social History (Updated 11/24/22 @ 16:[address] 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 pets and animals: No current gender identity: male Smoking Status: Never smoker alcohol intake: never substance use type: does not use ROS Constitutional Constitutional: Reports weakness; Denies anorexia, change in weight or fatigue Eyes Eyes: Denies change in vision, double vision, eye pain or itchy eyes ENT HEENT: Denies headache(s), loss taste/smell or sore throat Cardiovascular Cardiovascular: Denies chest pain, edema, palpitations or syncope Respiratory/Chest Respiratory/Chest: Denies cough, shortness of breath at rest or shortness of breath with exertion Gastrointestinal Gastrointestinal: Denies abdominal pain, constipation, diarrhea, nausea or vomiting Genitourinary Genitourinary: Denies dysuria Musculoskeletal Musculoskeletal: Reports muscle weakness; Denies back pain Integumentary Integumentary: Denies dry skin, jaundice, rash or wounds Neurologic Neurologic: Reports weakness; Denies headache(s) or seizures Psychiatric Psychiatric: Denies anxiety, depression, homicidal ideation or suicidal ideation Endocrine Endocrinology: Denies cold intolerance, heat intolerance, polydipsia or polyuria Hematologic/Lymphatic Hematologic/Lymphatic: Denies easy bleeding or easy bruising Indicators for Scoring Admitted with or Primary Diagnosis of CVA/Stroke: Yes Hx of CVA/Stroke: Yes Modified Anna Score MRS Score at time of Evaluation: 2-Slight disability NIHSS NIHSS 1a. Level of Consciousness: Alert; keenly responsive 1b. LOC Questions: Answers BOTH questions correctly. 1c. LOC Commands: Performs both tasks correctly. 2. Best Gaze: Normal 3. Visual: No visual loss 4. Facial Palsy: Minor paralysis (flattened nasolabial fold, asymmetry on smiling) 5a. Left Arm: No drift; arm holds 90 (or 45) degrees for full 10 seconds 5b. Right Arm: No drift; arm holds 90 (or 45) degrees for full 10 seconds 6a. Left Leg: No drift; leg holds 30-degree position for full 5 seconds 6b. Right Leg: No drift; leg holds 30-degree position for full 5 seconds 7. Limb Ataxia: Absent 8. Sensory: Normal; no sensory loss 9. Best Language: No aphasia; normal 10. Dysarthria: Perp-ly-hbfawfcd dysarthria; 11. Extinction and Inattention: Visual, tactile, auditory, spatial, or personal inattention (Tactile LUE) Total: 3 Stroke Questions Stroke Team Activated: No Physical Exam Const alert, oriented x3 and no apparent distress Constitutional Narrative: pleasant, talkative, General Appearance: cooperative HEENT normocephalic HEENT Narrative: tongue protrudes on the midline. Mouth: dry mucous membranes Eyes PERRL and EOMs intact bilaterally Neck No nuchal rigidity, supple, No no JVD, No nodes and No no carotid bruits General: trachea midline Resp normal respiratory effort, normal air movement and clear to auscultation bilaterally Effort and Inspection: Negative for tachypneic, labored or uses accessory muscles Cardio regular rhythm, S1 normal heart sound, S2 normal heart sound, no murmurs, no rub and no gallops Cardio Narrative: mildly increased resting HR at 93, GI normal to inspection, nondistended, normoactive bowel sounds, soft to palpation and non-tender GI Narrative: No guarding with palpation. No masses and no HS. Extremity normal capillary refill and no calf tenderness General Extremity: Negative for clubbing, cyanosis or edema Skin no rashes or lesions noted, no wounds, no jaundice and no petechiae General Skin Exam: no breakdown Neuro Neuro Narrative: Very mild left facial droop....most noticeable when he is showing me his teeth. Dysarthria. I am able to understand most everything he says but, occasionally have to make him repeat himself. Coordination / Balance: itmofz-zs-ryae test normal and rfkr-ww-[id number] test normal Psych cooperative Psych Narrative: Pleasant. Obvious MRDD, mild. Got emotional when talking about first CVA and had tears. He was appropriate. He has a stuffed rabbit he calls ComAbility. Attitude: No agitated Mood & Affect: Negative for anxious Thought Content: No hallucination(s) Assessment & Plan Assessment/Plan (1) Debility: (2) Stroke/cerebrovascular accident: (3) Facial droop: (4) Paresthesia: (5) Dysarthria: (6) DM II (diabetes mellitus, type II), controlled: (7) History of developmental delay: PLAN: Plan PLAN PT for gait stability OT for ADL's ST for evaluation Analgesics as needed Bowel protocol Fall precautions Assess for Anxiety/Depression GI prophylaxis with Protonix 20 mg p.o. daily until he has completed 3 weeks of DAPT DVT prophylaxis with heparin 5000 units subcu every 12 hours. He had a DVT in the past when he had a CVA in 2021. Has an IVC filter. Follow up with PCP and neurology following DC from IP Rehab AM lab including CMP, CBC, Mag and Phos Dual antiplatelet therapy for a total of 3 weeks and then discontinue aspirin and continue Plavix 75 mg p.o. daily. Goal for blood pressure is less than 130/80. Goal for LDL is less than 70 and he is currently less than 70. Why is he anemic? HGB was normal in April of this year Check a hemoccult stool Charges/Coding Visit Charges Inpatient E&M: 15351 Init Hosp L3
[2022-11-24 14:43] VITALS: BP 114/77; PULSE 93; RESP 16; TEMP 36.8; O2SAT 97
--- NOTE | 2022-11-24 16:20 | PCM.RU.PYE ---
Admission Information Primary Diagnosis:: Debility due to acute ischemic CVA Status Changes from Prescreening?: No changes Identified Actual Problem List:: Cognitve Impr/Memory Loss, Mobility Impaired, Self Care Deficit, Ineffective Communication, Know.Dfct/Disease Process and Alteration-Leisure Activ. Potential Problem List:: DVT, Bleeding, Infection, UTI, Aspiration, Falls, Skin Integrity and Depression Risk of Complications DVT: MAILE Hose and - (Heparin 5000 units subcu twice daily) Bleeding: Monitor Lab Values, Nursing to Teach Precautions for anti-coagulation therapy., Wound, if applicable, to be assessed every shift. and Stroke patients assessed for lethargy or change in status. Infection: Clinical Staff to Monitor for S/S of infection: and S/S of infection include fever, redness, warmth, etc. Urinary Tract Infection: Monitor for frequency, burning, discomfort, or incontinence. and Nursing will obtain urine sample for urinalysis and C&S when ordered. Aspiration: Clinical staff will monitor for coughing, drooling, congestion., Speech will evaluate swallowing and dsyphasia. and Nursing will monitor patient swallowing during meals. Falls: Patient will be evaluated for Fall Precautions and Patient will be placed on Fall Precautions as indicated per protocol. Skin Breakdown: Nursing will assess skin daily using assessment tool. and Nursing will place on Skin Breakdown Precautions as indicated. Pain: Clinical staff will assess patient's pain level per protocol., Medications will be given, if needed, and the pain level reassessed. and Other methods: Massage, distraction, decrease stimulus, etc. used PRN. Plan of Care Patient requires physician specializing in physical medicine and rehab oversight to provide close medical supervision of rehab issues including: Pain Management, Sleep Problems, Bowel and Bladder, Medical and co-morbidity Management, DVT prophylaxis, Rehabilitation Leadership and Coordination of treatment team Patient needs Physical Therapy: For a minimum of 1 hour and At least 5 out of 7 days Patient needs Physical Therapy to improve:: Mobility, Strengthening, Transfers, Stretching, ROM, Endurance, Stairs, Gait and Balance Patient needs Occupational Therapy: For a minimum of 1 hour and At least 5 out of 7 days Patient needs Occupational Therapy to improve ADL's incl.: Eating, Grooming, Bathing, Dressing, Toileting, Toilet transfers, Community Reintegration, Higher functioning activities, Household tasks, Adaptive Equipment, Splinting and Other activities as determined Patient requires speech therapy: For a minimum of 1 hour and At least 5 out of 7 days Patient requires speech therapy for: Swallowing, Cognition, Language Skills and Compensatory Strategies Patient requires 24/ Rehabilitation Nursing for: Pain Issues, Identifying and preventing risk factors, Monitoring and reporting current medical conditions, Assisting with ambulation, transfer, and all ADL's, Teaching patients about disease process and medications, Family teaching, Providing safe environment, Bowel and Bladder Issues, Skin integrity and Medication Management Patient needs Multiple Slide Operator/ Case Management for: Discharge Planning, Arranging Home Equipment or Services and Family Interventions Patient needs Dietary and Nutrition Services for: Adequate Nutrition, Nutritional Supplements and Nutritional Education Goals Patient will remain: free from falls Patient will perform bed mobility at: MOD I level of assist. Patient will complete transfers from bed to chair at: MOD I level of assist. Patient will ambulate: - (500 feet on various surfaces at mod I) Patient will complete upper body dressing at: MOD I level of assist. Patient will complete lower body dressing at: MOD I level of assist. (With adaptive equipment as needed.) Patient will complete toileting at: MOD I level of assist. Patient will perform bathing at: MOD I level of assist. Patient will complete grooming at: MOD I level of assist. Patient will complete home management skills at: MOD I level of assist. Patient will achieve: 12 stairs (With 1 handrail at standby assist to allow access to his basement laundry.) Patient will have pain level of: of 3 or less Patient's skin will: remain intact Patient will receive: adequate nutrition. Discharge Planning Pt Prognosis for Sig. Practical Improv. w/in Reasonable Time: Good Estimated Length of stay (days): 10 Anticipated D/C Destination: Home with Home Health Was Preadmission Assessment Accurate?: Yes
[2022-11-24] MEDS: metFORMIN HCl 500 MG Tablet PO (19:06)
[2022-11-24 20:00] VITALS: BP 110/67; PULSE 91; RESP 18; TEMP 36.8; O2SAT 96
[2022-11-24] MEDS: Atorvastatin Calcium 40 MG Tablet PO (21:35)
[2022-11-24] MEDS: Senna/Docusate Sodium 1 Tablet 2 TABLET PO (21:35)
[2022-11-25] MEDS: 0.9% Saline Lock 10 ML Syringe IV ×2 (05:55→09:21)
[2022-11-25 06:44] VITALS: O2SAT 96
[2022-11-25 07:30] VITALS: BP 118/73; PULSE 80; RESP 17; TEMP 36.6; O2SAT 96
[2022-11-25] MEDS: Multivitamins,Therapeutic Tablet 1 TABLET PO (09:00)
[2022-11-25] MEDS: Aspirin 81 MG TAB.CHEW PO (09:00)
[2022-11-25] MEDS: metFORMIN HCl 500 MG Tablet PO ×2 (09:00→17:29)
[2022-11-25 09:11] VITALS: BP 124/86; PULSE 81
[2022-11-25] MEDS: Metoprolol(XL)Succ 25 MG Tablet PO (09:11)
[2022-11-25] MEDS: Clopidogrel Bisulfate 75 MG Tablet PO (09:11)
[2022-11-25] MEDS: Loratadine 10 MG Tablet PO (09:11)
[2022-11-25] MEDS: Senna/Docusate Sodium 1 Tablet 2 TABLET PO ×2 (09:11→20:01)
[2022-11-25] MEDS: Lisinopril 2.5 MG Tablet PO (09:12)
[2022-11-25] MEDS: Pantoprazole Sodium 20 MG Tablet PO (12:15)
[2022-11-25 12:58] VITALS: BMI 22.1
[2022-11-25 19:51] VITALS: BP 97/55; PULSE 77; RESP 14; TEMP 37.1; O2SAT 95
[2022-11-25] MEDS: Heparin Injection (Vial) 5,000 UNIT/ML VIAL 5000 UNIT SC (20:01)
[2022-11-25] MEDS: Atorvastatin Calcium 40 MG Tablet PO (20:02)
[2022-11-26 01:35] VITALS: BMI 22.1
[2022-11-26] MEDS: 0.9% Saline Lock 10 ML Syringe IV ×2 (05:45→13:55)
[2022-11-26 07:49] VITALS: O2SAT 96
[2022-11-26] MEDS: Senna/Docusate Sodium 1 Tablet 2 TABLET PO ×2 (08:14→20:41)
[2022-11-26] MEDS: Multivitamins,Therapeutic Tablet 1 TABLET PO (08:14)
[2022-11-26] MEDS: metFORMIN HCl 500 MG Tablet PO ×2 (08:14→16:19)
[2022-11-26] MEDS: Pantoprazole Sodium 20 MG Tablet PO (08:14)
[2022-11-26] MEDS: Loratadine 10 MG Tablet PO (08:15)
[2022-11-26] MEDS: Aspirin 81 MG TAB.CHEW PO (08:15)
[2022-11-26] MEDS: Lisinopril 2.5 MG Tablet PO (08:15)
[2022-11-26] MEDS: Clopidogrel Bisulfate 75 MG Tablet PO (08:15)
[2022-11-26] MEDS: Heparin Injection (Vial) 5,000 UNIT/ML VIAL 5000 UNIT SC ×2 (08:15→20:44)
[2022-11-26 08:16] VITALS: PULSE 78
[2022-11-26] MEDS: Metoprolol(XL)Succ 25 MG Tablet PO (08:16)
[2022-11-26 09:09] VITALS: BP 104/59; PULSE 84; RESP 18; TEMP 36.8; O2SAT 95
[2022-11-26 10:09] VITALS: BMI 22.1
[2022-11-26 20:09] VITALS: BP 105/58; PULSE 89; RESP 18; TEMP 36.9; O2SAT 98
[2022-11-26] MEDS: Atorvastatin Calcium 40 MG Tablet PO (20:41)
[2022-11-26 20:57] VITALS: BMI 22.1
[2022-11-27 07:25] VITALS: O2SAT 96
[2022-11-27] MEDS: Senna/Docusate Sodium 1 Tablet 2 TABLET PO ×2 (08:05→20:55)
[2022-11-27] MEDS: metFORMIN HCl 500 MG Tablet PO ×2 (08:05→17:36)
[2022-11-27 08:06] VITALS: PULSE 81
[2022-11-27] MEDS: Pantoprazole Sodium 20 MG Tablet PO (08:06)
[2022-11-27] MEDS: Aspirin 81 MG TAB.CHEW PO (08:06)
[2022-11-27] MEDS: Metoprolol(XL)Succ 25 MG Tablet PO (08:06)
[2022-11-27] MEDS: Multivitamins,Therapeutic Tablet 1 TABLET PO (08:06)
[2022-11-27] MEDS: Lisinopril 2.5 MG Tablet PO (08:06)
[2022-11-27] MEDS: Clopidogrel Bisulfate 75 MG Tablet PO (08:06)
[2022-11-27] MEDS: Heparin Injection (Vial) 5,000 UNIT/ML VIAL 5000 UNIT SC ×2 (08:06→20:53)
[2022-11-27] MEDS: Loratadine 10 MG Tablet PO (08:06)
[2022-11-27 08:10] VITALS: BP 103/65; PULSE 81; RESP 16; TEMP 36.9; O2SAT 96
[2022-11-27 08:13] VITALS: BMI 22.1
[2022-11-27 20:00] VITALS: BP 102/64; PULSE 81; RESP 18; TEMP 36.4; O2SAT 97
[2022-11-27] MEDS: Atorvastatin Calcium 40 MG Tablet PO (20:55)
[2022-11-27 20:57] VITALS: BMI 22.1
[2022-11-28 06:00] VITALS: BMI 22.1
[2022-11-28 06:20] LABS: Hematocrit 35.3 % (40-54); Hemoglobin 11.1 g/dL (13.0-16.5)
[2022-11-28 07:53] VITALS: BP 117/62; PULSE 77; RESP 15; TEMP 36.4; O2SAT 93
[2022-11-28] MEDS: Lisinopril 2.5 MG Tablet PO (08:16)
[2022-11-28] MEDS: Multivitamins,Therapeutic Tablet 1 TABLET PO (08:16)
[2022-11-28] MEDS: Clopidogrel Bisulfate 75 MG Tablet PO (08:16)
[2022-11-28] MEDS: Pantoprazole Sodium 20 MG Tablet PO (08:16)
[2022-11-28] MEDS: metFORMIN HCl 500 MG Tablet PO ×2 (08:16→17:41)
[2022-11-28] MEDS: Loratadine 10 MG Tablet PO (08:16)
[2022-11-28] MEDS: Aspirin 81 MG TAB.CHEW PO (08:16)
[2022-11-28 08:17] VITALS: PULSE 77
[2022-11-28] MEDS: Metoprolol(XL)Succ 25 MG Tablet PO (08:17)
[2022-11-28] MEDS: Heparin Injection (Vial) 5,000 UNIT/ML VIAL 5000 UNIT SC ×2 (08:19→22:50)
[2022-11-28 10:30] VITALS: BMI 22.1
--- NOTE | 2022-11-28 13:23 | CASEMGMT ---
Social Work IDT met with patient and sister via conference call for Team meeting. Discussed patient's progress in PT/OT/ST/SN. Educated to Medicare approval of 11 days with DC 12/05. Currently, IDT concerned about pt DC home alone without support, and may need driving rehab to determine that safety to return. LAMONT inquired about DC plans and assistance currently in the home. Sister still works and can transition pt home for a few days. Currently a nurse visits from [facility] twice a week. Friends from work check in every other day. IDT recommended increasing supervision from skilled provider, aside from friends/social visits. Received sister's email to provide [employer] resources and driving rehab. Sister provided email. Scheduled therapy training with sister for Sunday 12/03. Requested sister purchase shower chair at [place]. SW will coordinate HHC, CCN and any other DME needs closer to [place]. ZIGGY GibsonW
--- NOTE | 2022-11-28 13:48 | CASEMGMT ---
Social Work SW requested sister via email to provide copies of pt's advanced directives. Renuka Isaacs, KILN TRANSFER OPERATOR ONION TOPPER
--- NOTE | 2022-11-28 14:17 | PN_ITS ---
Subjective Subjective Ramon was seen on team rounds today. His Sister Renate participated by phone. Afebrile VSS-blood pressure remains controlled Maintaining appropriate oxygen saturation on RA Oral intake is good Discussed with nursing - no problems that need addressed Reviewed the PT/OT/ST notes - ST compared the cognitive testing at [place] from [facility] on 03/17/22 to the same testing done this admission and he has declined since [place] from [facility]. His medications are set up by the [facility] team. He is having some left side visual neglect and also tactile neglect of the LUE. Medication list reviewed. Ramon is pointing to the IV HL in the left antecubital and asking me if it is OK. He has superficial thrombophlebitis with palpable venous cords and erythema. Nursing has been instructed to remove the HL and apply warm compresses. Ramon denies CP, SOB, N/V/abd pain, dysuria and calf pain. His is not coughing. He looked as though he was going to cry when we told him the [place] date was the ......he wants to go home now. He is unaware of the deficits he has. Stool is heme +. He was started on Protonix 20 mg daily last Monday. No hx of PUD but, he is on ASA and Plavix now and he is anemic. Will need to talk with Renate to see if he has ever had a EGD or colonoscopy. Will also request records from Dr. Chaudhry about any procedures he has had. Objective Data Objective Data Vital Signs: Vital Signs Temp Pulse Resp BP Pulse Ox O2 Del Method 97.6 F L 77 15 117/62 93 Room Air 11/28/22 07:53 11/28/22 08:17 11/28/22 07:53 11/28/22 07:53 11/28/22 07:53 11/28/22 07:53 Oxygen Delivery Method Room Air Weight: 154 lb 8.705 oz Body Mass Index (BMI) 22.1 Intake & Output: Intake and Output for Last 24 Hours 11/26/22 11/27/22 11/28/22 23:59 23:59 23:59 Intake Total 50 / 50 Balance 50 / 50 Lab / Micro Data 11/28/22 05:15 Labs: Laboratory Results - last 24 hr 11/28/22 05:15: Hgb 11.1 L, Hct 35.3 L Micro: Microbiology 11/26/22 16:25 Stool Stool Occult Blood (DEJAH) - Final Occult Blood Positive Physical Exam Const alert and no apparent distress General Appearance: cooperative Resp normal respiratory effort, normal air movement and clear to auscultation bilaterally Effort and Inspection: Negative for tachypneic, labored or uses accessory muscles Cardio regular rhythm, S1 normal heart sound, S2 normal heart sound, no murmurs, no rub and no gallops GI normal to inspection, nondistended, normoactive bowel sounds, soft to palpation and non-tender GI Narrative: No guarding with palpation. No masses and no HS. Extremity no calf tenderness Extremity Narrative: There is erythema and mild increased warmth to touch in the L antecubital fossa. The superficial veins are hard/palpable. IV HL is in place. General Extremity: Negative for edema Skin General Skin Exam: no breakdown Rashes: no rashes Assessment & Plan Assessment/Plan (1) Debility: (2) Stroke/cerebrovascular accident: QUALIFIERS: CVA mechanism: occlusion Laterality of affected vessel: right (3) Facial droop: (4) Paresthesia: (5) Dysarthria: (6) DM II (diabetes mellitus, type II), controlled: QUALIFIERS: Diabetes mellitus [facility] insulin use: without jacquard loom card changer use Diabetes mellitus complication status: with circulatory complication (7) History of developmental delay: (8) Superficial thrombophlebitis of left upper extremity: PLAN: Plan 1. Continue therapy 2. DC Hep-Lock from the left antecubital. 3. Apply warm compresses for 10 minutes 3-4 times daily to the left antecubital area 4. Request records from Dr. Chaudhry, PCP. 5. Increase Protonix to 40 mg daily 6. Recheck Charges/Coding Visit Charges Inpatient E&M: 46650 Subs Hosp L2
[2022-11-28 20:51] VITALS: BP 99/61; PULSE 82; RESP 16; TEMP 37.4; O2SAT 95
[2022-11-28] MEDS: Atorvastatin Calcium 40 MG Tablet PO (22:49)
[2022-11-28] MEDS: Senna/Docusate Sodium 1 Tablet 2 TABLET PO (22:49)
[2022-11-29 00:26] VITALS: BMI 22.1
[2022-11-29 07:29] VITALS: BP 129/72; PULSE 83; RESP 17; TEMP 36.7; O2SAT 98
[2022-11-29 07:56] VITALS: BP 129/72; PULSE 83
[2022-11-29] MEDS: Multivitamins,Therapeutic Tablet 1 TABLET PO (07:56)
[2022-11-29] MEDS: Metoprolol(XL)Succ 25 MG Tablet PO (07:56)
[2022-11-29] MEDS: metFORMIN HCl 500 MG Tablet PO ×2 (07:57→17:51)
[2022-11-29] MEDS: Senna/Docusate Sodium 1 Tablet 2 TABLET PO (07:57)
[2022-11-29] MEDS: Loratadine 10 MG Tablet PO (07:57)
[2022-11-29] MEDS: Aspirin 81 MG TAB.CHEW PO (07:57)
[2022-11-29] MEDS: Pantoprazole Sodium 20 MG Tablet 40 MG PO (07:57)
[2022-11-29] MEDS: Heparin Injection (Vial) 5,000 UNIT/ML VIAL 5000 UNIT SC ×2 (07:58→22:21)
[2022-11-29] MEDS: Lisinopril 2.5 MG Tablet PO (07:58)
[2022-11-29] MEDS: Clopidogrel Bisulfate 75 MG Tablet PO (07:58)
[2022-11-29 11:10] VITALS: BMI 22.1
--- NOTE | 2022-11-29 11:25 | PN_ITS ---
Subjective Subjective Afebrile - Temp last night was 99.4........no evidence infection. Maybe related to superficial thrombophlebitis L antecubital fossa. VSS Maintaining appropriate oxygen saturation on RA Oral intake is good Discussed with nursing - no problems that need addressed. Sleeping well. Reviewed the PT/OT/ST notes Medication list reviewed. He is on Metformin 500 BID and is not getting accucheks. Last HGBA1C was in April of 2022 and it was 6. Ramon denies lightheadedness, vertigo, CP, SOB at rest, SOB with exertion, cough, nausea, vomiting, abd pain, diarrhea, constipation, dysuria, calf pain and ankle swelling. He feels like he is ready to go home and is still unaware of his deficits. Objective Data Objective Data Vital Signs: Vital Signs Temp Pulse Resp BP Pulse Ox O2 Del Method 98.1 F 83 17 129/72 H 98 Room Air 11/29/22 07:29 11/29/22 07:56 11/29/22 07:29 11/29/22 07:56 11/29/22 07:29 11/29/22 07:29 Oxygen Delivery Method Room Air Weight: 154 lb 8.705 oz Body Mass Index (BMI) 22.1 Intake & Output: Intake and Output for Last 24 Hours 11/27/22 11/28/22 11/29/22 23:59 23:59 23:59 Intake Total 50 / 50 200 / 200 Balance 50 / 50 200 / 200 Lab / Micro Data 12/01/22 06:06 Micro: Microbiology 11/26/22 16:25 Stool Stool Occult Blood (DEJAH) - Final Occult Blood Positive Physical Exam Const alert and no apparent distress Constitutional Narrative: Pleasant and talkative. General Appearance: cooperative Resp normal respiratory effort and clear to auscultation bilaterally Resp Narrative: No conversational dyspnea. Effort and Inspection: Negative for tachypneic or labored Cardio regular rate, regular rhythm and no gallops GI normal to inspection, nondistended, normoactive bowel sounds, soft to palpation and non-tender Extremity no calf tenderness General Extremity: Negative for edema Skin General Skin Exam: no breakdown Rashes: no rashes Wound Narrative: The superficial thrombophlebitis of the L antecubital fossa is improved today.......much less erythema and no significant increase in warmth to touch. He is using warm compresses. Assessment & Plan Assessment/Plan (1) Debility: (2) Stroke/cerebrovascular accident: QUALIFIERS: Laterality of affected vessel: right (3) Facial droop: (4) Paresthesia: (5) Dysarthria: (6) DM II (diabetes mellitus, type II), controlled: QUALIFIERS: Diabetes mellitus [facility] insulin use: without tank terminal gauger use Diabetes mellitus complication status: with circulatory complication Diabetes mellitus complication detail: with other circulatory complications Qualified Code(s): E11.59 - Type 2 diabetes mellitus with other circulatory complications (7) History of developmental delay: (8) Superficial thrombophlebitis of left upper extremity: PLAN: Plan 1. Continue therapy 2. Check Accu-Cheks twice daily for the next few days and if they are well controlled we will discontinue. 3. Continue Protonix 4. H&H ordered for Charges/Coding Visit Charges Inpatient E&M: 73216 Subs Hosp L2
[2022-11-29 17:55] LABS: Bedside Glucose 193 mg/dL (74-106)
[2022-11-29 20:00] VITALS: BP 100/59; PULSE 86; RESP 18; TEMP 36.4; O2SAT 98
[2022-11-29] MEDS: Atorvastatin Calcium 40 MG Tablet PO (22:21)
[2022-11-30 05:00] VITALS: BMI 22.1
[2022-11-30 06:39] LABS: Bedside Glucose 116 mg/dL (74-106)
[2022-11-30 07:23] VITALS: BP 106/75; PULSE 88; RESP 17; TEMP 36.3; O2SAT 95
[2022-11-30] MEDS: Lisinopril 2.5 MG Tablet PO (08:01)
[2022-11-30] MEDS: Pantoprazole Sodium 20 MG Tablet 40 MG PO (08:01)
[2022-11-30] MEDS: metFORMIN HCl 500 MG Tablet PO ×2 (08:01→17:00)
[2022-11-30] MEDS: Loratadine 10 MG Tablet PO (08:01)
[2022-11-30 08:02] VITALS: BP 106/75; PULSE 88
[2022-11-30] MEDS: Multivitamins,Therapeutic Tablet 1 TABLET PO (08:02)
[2022-11-30] MEDS: Aspirin 81 MG TAB.CHEW PO (08:02)
[2022-11-30] MEDS: Clopidogrel Bisulfate 75 MG Tablet PO (08:02)
[2022-11-30] MEDS: Metoprolol(XL)Succ 25 MG Tablet PO (08:02)
[2022-11-30] MEDS: Heparin Injection (Vial) 5,000 UNIT/ML VIAL 5000 UNIT SC ×2 (08:03→20:49)
[2022-11-30 13:28] VITALS: BMI 22.1
[2022-11-30 17:42] LABS: Bedside Glucose 102 mg/dL (74-106)
[2022-11-30] MEDS: Atorvastatin Calcium 40 MG Tablet PO (20:48)
[2022-11-30 21:30] VITALS: PULSE 81; RESP 16; O2SAT 97; BMI 22.1
[2022-11-30 22:00] VITALS: BP 95/54; PULSE 81; RESP 16; TEMP 36.6; O2SAT 97
--- NOTE | 2022-12-01 03:28 | NURSING ---
REVIEWED AND AGREE WITH Rowan PARMAR, DOCUMENTATION AND ASSESSMENT CHARTING.
[2022-12-01 06:17] LABS: Hematocrit 35.9 % (40-54); Hemoglobin 11.4 g/dL (13.0-16.5)
[2022-12-01 07:14] LABS: Bedside Glucose 108 mg/dL (74-106)
[2022-12-01 10:00] VITALS: BP 116/69; PULSE 80; RESP 16; TEMP 36.6; O2SAT 96
[2022-12-01 10:09] VITALS: BP 116/69; PULSE 80
[2022-12-01] MEDS: Metoprolol(XL)Succ 25 MG Tablet PO (10:09)
[2022-12-01] MEDS: Loratadine 10 MG Tablet PO (10:11)
[2022-12-01] MEDS: Pantoprazole Sodium 20 MG Tablet 40 MG PO (10:11)
[2022-12-01] MEDS: Multivitamins,Therapeutic Tablet 1 TABLET PO (10:11)
[2022-12-01] MEDS: Aspirin 81 MG TAB.CHEW PO (10:11)
[2022-12-01] MEDS: Clopidogrel Bisulfate 75 MG Tablet PO (10:11)
[2022-12-01] MEDS: metFORMIN HCl 500 MG Tablet PO ×2 (10:11→16:49)
[2022-12-01] MEDS: Lisinopril 2.5 MG Tablet PO (10:11)
[2022-12-01] MEDS: Senna/Docusate Sodium 1 Tablet 2 TABLET PO ×2 (10:12→20:47)
[2022-12-01] MEDS: Heparin Injection (Vial) 5,000 UNIT/ML VIAL 5000 UNIT SC ×2 (10:13→20:48)
--- NOTE | 2022-12-01 11:26 | PCM.PROGNOTE ---
Subjective Subjective Afebrile VSS - BP tends to be on the lower side at HS....but, he is asymptomatic Maintaining appropriate oxygen saturation on RA Oral intake is good Discussed with nursing - no problems that need addressed Reviewed the PT/OT/ST notes Medication list reviewed. All lab drawn this morning was personally reviewed. Hemoglobin is stable at 11.4. Ramon denies lightheadedness, vertigo, CP, SOB at rest, SOB with exertion, cough, nausea, vomiting, abd pain, diarrhea, constipation, dysuria, calf pain and ankle swelling. He is looking forward to going home. Objective Data Objective Data Vital Signs: Vital Signs Temp Pulse Resp BP Pulse Ox O2 Del Method 98 F 80 16 116/69 96 Room Air 12/01/22 10:00 12/01/22 10:09 12/01/22 10:00 12/01/22 10:09 12/01/22 10:00 12/01/22 10:00 Oxygen Delivery Method Room Air Weight: 154 lb 8.705 oz Body Mass Index (BMI) 22.1 Lab / Micro Data 12/01/22 06:06 Labs: Laboratory Results - last 24 hr 11/30/22 17:20: POC Glucose 102 12/01/22 06:06: Hgb 11.4 L, Hct 35.9 L 12/01/22 06:16: POC Glucose 108 H Micro: Microbiology 11/26/22 16:25 Stool Stool Occult Blood (DEJAH) - Final Occult Blood Positive Physical Exam Const alert and no apparent distress Constitutional Narrative: Pleasant and talkative. General Appearance: cooperative Resp normal respiratory effort and clear to auscultation bilaterally Resp Narrative: No conversational dyspnea. Effort and Inspection: Negative for tachypneic or labored Cardio regular rate, regular rhythm and no gallops GI normal to inspection, nondistended, normoactive bowel sounds, soft to palpation and non-tender Extremity no calf tenderness General Extremity: Negative for edema Skin General Skin Exam: no breakdown Rashes: no rashes Wound Narrative: The superficial thrombophlebitis of the L antecubital fossa is improved today.......much less erythema and no significant increase in warmth to touch. He is using warm compresses. 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 Continue therapy 2. Plan discharge for 12/05/2022 to home. His Sister Renate will return from [place] and stay with him for several days to make sure that he is okay to be by himself. 3. Will need a bedside commode, 3 and 1. Charges/Coding Visit Charges Inpatient E&M: 30749 Subs Hosp L2
[2022-12-01 12:59] VITALS: BMI 22.1
--- NOTE | 2022-12-01 16:23 | CASEMGMT ---
Addendum entered by Renuka Isaacs 12/02/22 10:39: Pt and sister requesting 3-in-1 commode. [place] [facility] [place] [facility]. Original Note: Social Work SW planning DC. Spoke with pt and pt has no preference for [facility] agency. SW referred to [facility] via [facility] for PT/OT. Updated CCN of DC date. No DME needs. Plan: DC home 12/05, [facility] PT/OT, CCN Renuka Isaacs, PHOTO MASK INSPECTOR PEDIATRIC CRITICAL CARE NURSE
[2022-12-01 19:19] VITALS: BP 117/61; PULSE 87; RESP 18; TEMP 36.7; O2SAT 97
[2022-12-01] MEDS: Atorvastatin Calcium 40 MG Tablet PO (20:48)
[2022-12-01 21:04] VITALS: BMI 22.1
[2022-12-01 22:00] VITALS: PULSE 76; RESP 15; O2SAT 99
[2022-12-02] MEDS: Multivitamins,Therapeutic Tablet 1 TABLET PO (08:24)
[2022-12-02] MEDS: Clopidogrel Bisulfate 75 MG Tablet PO (08:24)
[2022-12-02] MEDS: metFORMIN HCl 500 MG Tablet PO ×2 (08:24→17:19)
[2022-12-02 08:25] VITALS: BP 125/72; PULSE 85
[2022-12-02] MEDS: Aspirin 81 MG TAB.CHEW PO (08:25)
[2022-12-02] MEDS: Metoprolol(XL)Succ 25 MG Tablet PO (08:25)
[2022-12-02] MEDS: Loratadine 10 MG Tablet PO (08:25)
[2022-12-02] MEDS: Pantoprazole Sodium 20 MG Tablet 40 MG PO (08:25)
[2022-12-02] MEDS: Heparin Injection (Vial) 5,000 UNIT/ML VIAL 5000 UNIT SC ×2 (08:26→21:18)
[2022-12-02] MEDS: Lisinopril 2.5 MG Tablet PO (08:26)
[2022-12-02] MEDS: Senna/Docusate Sodium 1 Tablet 2 TABLET PO ×2 (08:31→21:19)
[2022-12-02 09:22] VITALS: BP 125/72; PULSE 85; RESP 16; TEMP 36.7; O2SAT 96
[2022-12-02 20:08] VITALS: BP 105/63; PULSE 84; RESP 16; TEMP 36.8; O2SAT 95
[2022-12-02 20:45] VITALS: BMI 22.1
[2022-12-02] MEDS: Atorvastatin Calcium 40 MG Tablet PO (21:19)
[2022-12-02] MEDS: Acetaminophen 325 MG Tablet 650 MG PO (21:43)
[2022-12-03 07:56] VITALS: BP 115/67; PULSE 86; RESP 16; TEMP 36.7; O2SAT 97
[2022-12-03] MEDS: Lisinopril 2.5 MG Tablet PO (08:33)
[2022-12-03 08:34] VITALS: PULSE 86
[2022-12-03] MEDS: Aspirin 81 MG TAB.CHEW PO (08:34)
[2022-12-03] MEDS: Metoprolol(XL)Succ 25 MG Tablet PO (08:34)
[2022-12-03] MEDS: Loratadine 10 MG Tablet PO (08:34)
[2022-12-03] MEDS: Pantoprazole Sodium 20 MG Tablet 40 MG PO (08:34)
[2022-12-03] MEDS: Clopidogrel Bisulfate 75 MG Tablet PO (08:34)
[2022-12-03] MEDS: metFORMIN HCl 500 MG Tablet PO ×2 (08:34→17:30)
[2022-12-03] MEDS: Multivitamins,Therapeutic Tablet 1 TABLET PO (08:34)
[2022-12-03] MEDS: Heparin Injection (Vial) 5,000 UNIT/ML VIAL 5000 UNIT SC ×2 (08:35→21:48)
[2022-12-03 14:38] VITALS: BMI 22.1
[2022-12-03 19:56] VITALS: BP 105/56; PULSE 88; RESP 17; TEMP 36.4; O2SAT 97
[2022-12-03] MEDS: Senna/Docusate Sodium 1 Tablet 2 TABLET PO (21:49)
[2022-12-03] MEDS: Atorvastatin Calcium 40 MG Tablet PO (21:49)
[2022-12-04 07:17] VITALS: BP 96/59; PULSE 88; RESP 16; TEMP 36.6; O2SAT 97
[2022-12-04] MEDS: Multivitamins,Therapeutic Tablet 1 TABLET PO (09:35)
[2022-12-04] MEDS: Aspirin 81 MG TAB.CHEW PO (09:35)
[2022-12-04] MEDS: Pantoprazole Sodium 20 MG Tablet 40 MG PO (09:35)
[2022-12-04] MEDS: Loratadine 10 MG Tablet PO (09:35)
[2022-12-04] MEDS: Clopidogrel Bisulfate 75 MG Tablet PO (09:36)
[2022-12-04] MEDS: metFORMIN HCl 500 MG Tablet PO ×2 (09:37→17:15)
[2022-12-04 10:30] VITALS: BP 113/69; PULSE 83
[2022-12-04] MEDS: Heparin Injection (Vial) 5,000 UNIT/ML VIAL 5000 UNIT SC ×2 (10:30→21:02)
[2022-12-04] MEDS: Lisinopril 2.5 MG Tablet PO (10:30)
[2022-12-04] MEDS: Metoprolol(XL)Succ 25 MG Tablet PO (10:30)
[2022-12-04 10:31] VITALS: BP 113/69; PULSE 83
[2022-12-04 17:00] VITALS: BMI 22.1
[2022-12-04 19:42] VITALS: BP 116/50; PULSE 77; RESP 16; TEMP 36.2; O2SAT 96
[2022-12-04 20:50] VITALS: BMI 22.1
[2022-12-04] MEDS: Senna/Docusate Sodium 1 Tablet 2 TABLET PO (21:02)
[2022-12-04] MEDS: Atorvastatin Calcium 40 MG Tablet PO (21:02)
[2022-12-05 05:29] VITALS: BMI 22.1
[2022-12-05] MEDS: Heparin Injection (Vial) 5,000 UNIT/ML VIAL 5000 UNIT SC (08:13)
[2022-12-05 08:14] VITALS: BP 125/73; PULSE 92
[2022-12-05] MEDS: Aspirin 81 MG TAB.CHEW PO (08:14)
[2022-12-05] MEDS: Pantoprazole Sodium 20 MG Tablet 40 MG PO (08:14)
[2022-12-05] MEDS: Loratadine 10 MG Tablet PO (08:14)
[2022-12-05] MEDS: Multivitamins,Therapeutic Tablet 1 TABLET PO (08:14)
[2022-12-05] MEDS: Metoprolol(XL)Succ 25 MG Tablet PO (08:14)
[2022-12-05] MEDS: metFORMIN HCl 500 MG Tablet PO (08:14)
[2022-12-05] MEDS: Clopidogrel Bisulfate 75 MG Tablet PO (08:14)
[2022-12-05] MEDS: Lisinopril 2.5 MG Tablet PO (08:15)
[2022-12-05 08:24] VITALS: BP 125/73; PULSE 92; RESP 18; TEMP 36.4; O2SAT 96
--- NOTE | 2022-12-05 11:42 | DCINST_ITS ---
Discharge Instructions Diet Discharge Diet: No restrictions Activity Discharge Activity: May Not Drive, May Shower and May Take a Tub Bath Weight Bearing Status: Full weight bearing Additional Activity Instructions:: No assistive device needed. Dressing / Incision Call your doctor if you observe: Fever of 101 or Higher, Numbness or Tingling, Inability to urinate, Shortness of breath, Dizziness, Fainting spells, Swelling in the ankles, Chest pain, Increased palpitations (irregular heartbeat), Calf discomfort and Uncontrolled pain Follow Up Care Please Follow Up With: Madhavi Chaudhry, DO When: within 2 weeks of DC from the hospital. You should also follow up with your neurologist. Test Results: Test results from this visit will be discussed in further detail at your follow- up appointment, if applicable. Pending Tests Upon Discharge: none Discharge Plan Admission Admit Date/Time: 11/24/22 13:54 Primary Reason for Your Visit: Post stroke debility Attending Provider: Connie He Primary Care Provider: Madhavi Chaudhry Instructions Patient Instructions: Discharge Instructions for Stroke Additional Instructions / Restrictions: 1. No driving. There is a driving school in [place] that can test you to make sure you are safe to drive. I know you think your are good but, there has been some decline in your cognition since you were discharged from speech therapy at [facility]. 2. Make sure to drink enough water a day to keep your pee a light/pale yellow. 3. It has been a pleasure meeting you Ramon. All the staff on rehab enjoyed having you on rehab. If you ever need us again we will be here for you. Stay as sweet as you are. 4. Please call me if you have any questions. OFFICE: [phone] CELL: [phone] Discharge Orders/Prescriptions Prescriptions: New atorvastatin 40 mg Tablet 40 mg PO QHS Qty: 30 0RF metformin 500 mg Tablet 500 mg PO BIDCM Qty: 60 0RF clopidogrel 75 mg Tablet 75 mg PO DAILY Qty: 30 0RF pantoprazole 20 mg Tablet,Delayed Release (Dr/Ec) 40 mg PO DAILY Qty: 30 0RF metoprolol succinate 25 mg Tablet Extended Release 24 Hr 25 mg PO DAILY Qty: 30 0RF lisinopril 2.5 mg Tablet 2.5 mg PO DAILY Qty: 30 0RF ipratropium bromide 21 mcg (0.03 %) spray,non-aerosol 2 spray intranasal BID Qty: 30 0RF Rx Instructions: 2 sprays each nostril twice a day as need for allergies. Continued aspirin 81 mg tablet 81 mg PO/SL DAILY multivitamin Capsule 1 cap PO DAILY Discontinued atorvastatin 40 mg tablet 40 mg PO/SL QHS lisinopril 2.5 mg tablet 2.5 mg PO/SL DAILY metformin 500 mg tablet 1,000 mg PO/SL BID metoprolol succinate 25 mg tablet 25 mg PO/SL DAILY loratadine 10 mg tablet 10 mg PO/SL DAILY clopidogrel 75 mg Tablet 75 mg PO DAILY 90 Days Qty: 90 3RF Referrals / Follow Up: Madhavi Chaudhry DO [Primary Care Provider] - Disposition Disposition (needs filled in before D/C Order can be placed): Home Health Service
--- NOTE | 2022-12-05 12:08 | EX.DISCHREH ---
Providers Date of Admission: 11/24/22 Date of Discharge: 12/05/22 Primary Care Physician: Madhavi Chaudhry DO Reason For Visit: STROKE Diagnosis Discharge Diagnosis (1) Debility: Status: Acute Code(s): R53.81 - Other malaise (2) Stroke/cerebrovascular accident: Status: Acute Code(s): I63.9 - Cerebral infarction, unspecified Qualifiers: Laterality of affected vessel: right CVA mechanism: stenosis Precerebral and cerebral artery: anterior cerebral artery Qualified Code(s): I63.521 - Cerebral infarction due to unspecified occlusion or stenosis of right anterior cerebral artery (3) Facial droop: Status: Acute Code(s): R29.810 - Facial weakness (4) Paresthesia: Status: Resolved Code(s): R20.2 - Paresthesia of skin (5) Dysarthria: Status: Acute Code(s): R47.1 - Dysarthria and anarthria (6) DM II (diabetes mellitus, type II), controlled: Status: Acute Code(s): E11.9 - Type 2 diabetes mellitus without complications Qualifiers: Diabetes mellitus complication detail: with other circulatory complications Diabetes mellitus complication status: with circulatory complication 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 insulin 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: without petroleum terminal plant operator use Qualified Code(s): E11.59 - Type 2 diabetes mellitus with other circulatory complications (7) History of developmental delay: Status: Acute Code(s): Z87.898 - Personal history of other specified conditions (8) Superficial thrombophlebitis of left upper extremity: Status: Resolved Code(s): I80.8 - Phlebitis and thrombophlebitis of other sites (9) Cognitive change: Status: Acute Code(s): R41.89 - Other symptoms and signs involving cognitive functions and awareness (10) Normochromic normocytic anemia: Status: Acute Code(s): D64.9 - Anemia, unspecified (11) Heme + stool: Status: Acute Code(s): R19.5 - Other fecal abnormalities (12) Dehydration: Status: Resolved Code(s): E86.0 - Dehydration Plan: Better at admission. Encouraged him to drink more. Plan 1. DC home with his sister Renate who will stay with Ramon until she is able to ascertain if he will be able to take care of himself. 2. NO driving for the next 3 months. After 3 months, if desired and he wants to drive again he can attend the Driving school in [place] to see if he is safe to drive. LAMONT gave Renate the information handout. 3. I suspect the heme + stool is related to DAPT but, this will need to be followed. If it does not resolve on Protonix will need additional W/U for heme + stool/N/N anemia. He was anemic at presentation to the ED. Would DC the ASA in 3 weeks and continue Plavix 4. Recheck the CBC at next visit with PCP. 5. Ramon is unable to access his bathroom safely and requires a 3-in 1 commode. LAMONT ordered from [facility] Medications at Discharge Home Medications aspirin 81 mg PO/SL DAILY heart health 06/15/21 multivitamin 1 cap PO DAILY supplement 12/26/21 atorvastatin 40 mg tablet 40 mg PO QHS #30 tabs 12/05/22 clopidogrel 75 mg tablet 75 mg PO DAILY #30 tabs 12/05/22 ipratropium bromide 21 mcg (0.03 %) nasal spray 2 spray intranasal BID #30 mL 12/05/22 lisinopril 2.5 mg tablet 2.5 mg PO DAILY #30 tabs 12/05/22 metformin 500 mg tablet 500 mg PO BIDCM #60 tabs 12/05/22 metoprolol succinate 25 mg tablet,extended release 24 hr 25 mg PO DAILY #30 tabs 12/05/22 pantoprazole 20 mg tablet,delayed release 40 mg (2 x 20 mg) PO DAILY #30 tabs 12/05/22 Hospital Course Operations None Procedures None Summary of Care Provided Minutes Spent on Discharge: 40 Hospital Course: RAMON CHADWICK, is a 71 YO M with a PMH of, Developmental delay since childhood, DM II, 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 NC CT brain showed old infarcts in the L frontotemporal area and also in the R occipital area. There were no acute findings. He did not have a CTA of the H&N. He was admitted to the hospitalist service and ASA, Plavix, Beta erika and statin were continued. Consult with tele-neurology was ordered. DAPT was recommended for 3 weeks and then DC ASA. CTA and MRI were recommended. The MRI showed R frontal and R temporal acute ischemic infarcts. CTA was not done but, he had an ECHO that showed an EF of 65% with no motion abnormalities. Bubble study was negative and both atria were of normal size. He was seen by therapy and acute rehab was recommended. Ramon was transferred to the acute inpt rehab unit at [facility] on 11/24/22 for 3 hours of therapy daily to restore function/independence at or near his baseline prior to the recent stroke. He was living by himself and able to accomplish all ADL independently. He tells me that he no longer drives much and that he does not cook but, he knows how to use the microwave. He goes to a job daily. At presentation to rehab the NIHSS was 3 and the MRS was 2. Ramon did quite well in rehab. During his stay in rehab he developed a superficial DVT in the L antecubital fossa from an IV and this resolved prior to DC. He was anemic at presentation to the ED with a hemoglobin of 12.1 with a mildly increased MCV at 96.9 and a normal MCH. This was prior to starting on DAPT. His HGB in April of 2022 was normal. A heme stool was checked and it was positive. He was started on Protonix. On 12/14/22 he can stop the ASA and continue on Plavix (per the neurologist). At the time of DC from rehab Ramon was able to ambulate 700 feet at supervision off the rehab unit on various surfaces with no loss of balance. He was able to complete transfers independently from various surfaces. He completed the tug test and only 10.06 seconds with no loss of balance at standby assist. He also had completed 40 steps with 1 handrail at standby assist. He was independent with eating and required only minimal assistance with grooming, tub/shower transfer and lower body dressing.. He was contact-guard assist for bathing and supervision/set up for upper body dressing/toileting/toilet transfer. Ramon's sister Renate is very involved in Ramon's care. she came in for family training 2 days prior to DC to learn how best to assist Ramon. She will be staying with him for a time to see if he is able to continue living by himself. He has friends and the community care network to assist him with med management, etc. The ST felt he should not be driving at this time because his cognition has declined since he was last evaluated by ST at [facility].......it is unknown if this is related to the new stroke and if it will improve with continued ST as an OP. If in 3 months he has improved with attention and cognition and he wants to drive he should be referred to the driving school in [place] for testing to see if he is safe to drive. Renate was given a HO with all the info for the driving school. Ramon will follow up with Dr. Chaudhry within the next 2 weeks. He will also need to follow up with neurology. He should have a repeat CBC in the next few weeks and if he remains anemic he will need a W/U for the source of the heme + stools. Ramon was discharged home on 12/05/22 with his sister Renate. He did not have an evaluation of the circulation in the neck and head during his admission to the acute side of the hospital. Would consider a CTA as an OP since this is his second stroke. Both atria are of normal size and the EF is normal. He did not have any AF while he was monitored on telemetry while in the hospital. IF CTA is negative for any significant stenosis in the neck or head would refer for a 30 day event monitor to exclude PAF as etiology of the stroke. Physical Exam Const alert and no apparent distress Constitutional Narrative: Pleasant and talkative. General Appearance: cooperative HEENT HEENT Narrative: MM are a little dry and we are constantly encouraging him to increase his fluid intake. Eyes PERRL, EOMs intact bilaterally, conjunctivae normal, no scleral icterus and normal visual drew by confrontation General Eye: normal appearance of both eyes Neck supple, no JVD and no carotid bruits General: trachea midline Chest Chest: symmetrical chest wall rise Resp normal respiratory effort and clear to auscultation bilaterally Resp Narrative: No conversational dyspnea. Effort and Inspection: Negative for tachypneic or labored Cardio regular rate, regular rhythm, no murmurs, no rub and no gallops Cardio Narrative: No ectopy GI normal to inspection, nondistended, normoactive bowel sounds, soft to palpation and non-tender Extremity no calf tenderness General Extremity: Negative for edema Skin General Skin Exam: no breakdown Rashes: no rashes Wound Narrative: The superficial thrombophlebitis of the L antecubital fossa is improved today.......much less erythema and no significant increase in warmth to touch. He is using warm compresses. Weight / BMI Weight Weight: 154 lb 12.232 oz Body Mass Index (BMI) 22.1 ABG / Lab / Microbiology Data 12/01/22 06:06 Microbiology: Microbiology 11/26/22 16:25 Stool Stool Occult Blood (DEJAH) - Final Occult Blood Positive Indicators for Scoring Admitted with or Primary Diagnosis of CVA/Stroke: Yes Hx of CVA/Stroke: Yes (2021) Modified [place] Score MRS Score at time of Evaluation: 2-Slight disability NIHSS NIHSS 1a. Level of Consciousness: Alert; keenly responsive 1b. LOC Questions: Answers BOTH questions correctly. 1c. LOC Commands: Performs both tasks correctly. 2. Best Gaze: Normal 3. Visual: No visual loss 4. Facial Palsy: Minor paralysis (flattened nasolabial fold, asymmetry on smiling) 5a. Left Arm: No drift; arm holds 90 (or 45) degrees for full 10 seconds 5b. Right Arm: No drift; arm holds 90 (or 45) degrees for full 10 seconds 6a. Left Leg: No drift; leg holds 30-degree position for full 5 seconds 6b. Right Leg: No drift; leg holds 30-degree position for full 5 seconds 7. Limb Ataxia: Absent 8. Sensory: Normal; no sensory loss 9. Best Language: No aphasia; normal 10. Dysarthria: [id number] dysarthria; 11. Extinction and Inattention: Visual, tactile, auditory, spatial, or personal inattention (tactile and visual inattention to the Left) Total: 3 Stroke Questions Stroke Team Activated: No D/C Instructions Discharge Diet: No restrictions Weight Bearing Status: Full weight bearing Additional Activity Instructions: No assistive device needed. Call your doctor if you observe: Fever of 101 or Higher, Numbness or Tingling, Inability to urinate, Shortness of breath, Dizziness, Fainting spells, Swelling in the ankles, Chest pain, Increased palpitations (irregular heartbeat), Calf discomfort and Uncontrolled pain Pending Tests Upon Discharge: none Please Follow Up With: Madhavi Chaudhry, DO When: within 2 weeks of DC from the hospital. You should also follow up with your neurologist. Meaningful Use Info Meaningful Use Diagnoses (Choose all that apply): Ischemic CVA CVA Therapy Assessed for PT,OT and/or ST?: Yes Ischemic Stroke Antithrombotic order at d/c?: Yes Dx of Atrial fib/flutter?: No Anticoagulant at discharge?: No Reason anticoagulant not ordered: Treatment not Indicated Statins at discharge?: Yes Primary Dx Acute Ischemic CVA?: Yes IV thrombolytic ordered during stay?: No Reason IV thrombolytic not ordered: Procedure not Indicated Discharge Plan Admission Admit Date/Time: 11/24/22 13:54 Primary Reason for Your Visit: Post stroke debility Attending Provider: Connie He Primary Care Provider: Madhavi Chaudhry Instructions Patient Instructions: Discharge Instructions for Stroke Additional Instructions / Restrictions: 1. No driving. There is a driving school in [place] that can test you to make sure you are safe to drive. I know you think your are good but, there has been some decline in your cognition since you were discharged from speech therapy at [facility]. 2. Make sure to drink enough water a day to keep your pee a light/pale yellow. 3. It has been a pleasure meeting you Ramon. All the staff on rehab enjoyed having you on rehab. If you ever need us again we will be here for you. Stay as sweet as you are. 4. Please call me if you have any questions. OFFICE: [phone] CELL: [phone] Discharge Orders/Prescriptions Prescriptions: New atorvastatin 40 mg Tablet 40 mg PO QHS Qty: 30 0RF metformin 500 mg Tablet 500 mg PO BIDCM Qty: 60 0RF clopidogrel 75 mg Tablet 75 mg PO DAILY Qty: 30 0RF pantoprazole 20 mg Tablet,Delayed Release (Dr/Ec) 40 mg PO DAILY Qty: 30 0RF metoprolol succinate 25 mg Tablet Extended Release 24 Hr 25 mg PO DAILY Qty: 30 0RF lisinopril 2.5 mg Tablet 2.5 mg PO DAILY Qty: 30 0RF ipratropium bromide 21 mcg (0.03 %) spray,non-aerosol 2 spray intranasal BID Qty: 30 0RF Rx Instructions: 2 sprays each nostril twice a day as need for allergies. Continued aspirin 81 mg tablet 81 mg PO/SL DAILY multivitamin Capsule 1 cap PO DAILY Discontinued atorvastatin 40 mg tablet 40 mg PO/SL QHS lisinopril 2.5 mg tablet 2.5 mg PO/SL DAILY metformin 500 mg tablet 1,000 mg PO/SL BID metoprolol succinate 25 mg tablet 25 mg PO/SL DAILY loratadine 10 mg tablet 10 mg PO/SL DAILY clopidogrel 75 mg Tablet 75 mg PO DAILY 90 Days Qty: 90 3RF Referrals / Follow Up: Madhavi Chaudhry DO [Primary Care Provider] - (office will call Renate with appt) Disposition Disposition (needs filled in before D/C Order can be placed): Home Health Service Charges/Coding Visit Charges Inpatient E&M: 91277 Disch Hosp >30min
[2022-12-05 15:38] VITALS: BP 125/73; PULSE 92; RESP 18; TEMP 36.4; O2SAT 97
[2022-12-05 15:40] VITALS: BMI 22.1
== END 2022-12-05 14:15 | disposition home health service (06) | DRG 57 ==
PROVIDERS: Admitting Provider Internal Medicine; PCP Family Medicine; Visit Provider Internal Medicine
DX: I69.322 Dysarthria following cerebral infarction (principal); I80.8 Phlebitis and thrombophlebitis of other sites; E11.59 Type 2 diabetes mellitus with other circulatory complications; D64.9 Anemia, unspecified; I69.392 Facial weakness following cerebral infarction; F70 Mild intellectual disabilities; I69.398 Other sequelae of cerebral infarction; Z86.79 Personal history of other diseases of the circulatory system; Z79.84 Long term (current) use of oral hypoglycemic drugs; Z79.82 Long term (current) use of aspirin; Z79.899 Other long term (current) drug therapy; Z79.02 Long term (current) use of antithrombotics/antiplatelets; R20.2 Paresthesia of skin; Z86.718 Personal history of other venous thrombosis and embolism
CPT/HCPCS: 36415; 82274; 82962; 85014; 85018; 92507; 92523; 92610; 97110; 97112; 97116; 97129; 97130; 97162; 97166; 97530; 97535; 97803; A4216

== ENCOUNTER → 2022-12-14 | Outpatient (CLI) | payer MEDICARE, OTHER, SELFPAY ==
[2022-12-14 15:10] LABS: Hematocrit 41.8 % (40-54); Hemoglobin 12.9 g/dL (13.0-16.5); Mean Corp Hgb Conc 30.9 g/dL (32-36); Mean Corpuscular Hgb 29.9 pg (27.0-32.0); Mean Platelet Vol. 12.2 fl (6.2-12.0); Platelet Count 273 K/mm3 (150-450); RBC Distribution Width CV 12.2 % (11.6-14.6); Red Blood Count 4.31 M/mm3 (4.6-6.2); White Blood Count 5.7 K/mm3 (4.4-11.0)
== END | disposition home or self-care (01) ==
LOC: MFPLAB 11:52
PROVIDERS: Nurse Practitioner Family; PCP Family Medicine; Visit Provider Family Medicine
DX: D64.9 Anemia, unspecified (principal)
CPT/HCPCS: 36415; 85027

== ENCOUNTER → 2023-01-05 | Outpatient (CLI) | payer MEDICARE, OTHER, SELFPAY ==
--- NOTE | 2023-01-05 13:08 | CT_ITS ---
STUDY: CT BRAIN WITH AND WITHOUT CONTRAST REASON FOR EXAM: Male, 72 years old. Stroke follow up RADIATION DOSAGE (If Supplied By Facility): CTDIvol = ( 44.99 ) mGy, DLP = ( 1648.46 ) mGycm TECHNIQUE: Transaxial CT imaging of the brain was performed pre and post contrast administration. The examination was performed with intravenous administration of IV 50mL Isovue-370. Individualized dose optimization techniques were used for this CT. COMPARISON: Comparison is made with prior study November 22, 2022. FINDINGS: Normal soft tissue structures. Normal calvarium. There is mild cerebral atrophy with widening of the extra-axial spaces and ventricular dilatation. Encephalomalacia in the left frontal parietal temporal lobes as well as in the right occipital lobe. No evidence of edema or mass effect at this time. Normal basal ganglia and thalami. Normal brainstem. Normal cerebellum. There is no intracranial hemorrhage. There are no findings of an acute ischemic infarction. Normal visualized paranasal sinuses. CT/Brain/Head W/WO Contrast IMPRESSION: Encephalomalacia in the left temporal parietal and frontal lobes as well as the right occipital lobe. Electronically Signed: Hang Yang MD at 15:26 EST ,
[2023-01-05 13:34] LABS: CREATININE FINGERSTICK < 1.0 mg/dL (0.70-1.30); EGFR FINGERSTICK > 60.0000 mL/min (>60)
== END | disposition home or self-care (01) ==
PROVIDERS: PCP Family Medicine; Referring Provider Family Medicine; Visit Provider Family Medicine
DX: I63.9 Cerebral infarction, unspecified (principal)
CPT/HCPCS: 70470; Q9967

== ENCOUNTER 2023-07-17 11:00 | Outpatient (RCR) | payer MEDICARE, OTHER, SELFPAY ==
--- NOTE | 2023-05-17 15:42 | HP.PTEVAL ---
Patient's Visit Information Visit Information Visit Information: GUSTAVO CHADWICK is a 72 year old M referred to Physical Therapy by SARAHI SOTO with a diagnosis of Pt has L UE weakness. Date of Evaluation: 05/17/23 Physical Therapist: Kang Cartwright, PT, ATC Visit Plan Frequency: 2-3x /Week Duration: 4-6 Weeks Plan: L UE strengthening, scap stab ex's, UBE, and HEP Subjective Subjective: Pt is a poor historian as his stroke has effected his speech. Trouble with communication CVA. Pt is unsure of the date, but notes it was several months ago. Pt notes he has L UE weakness as a result of his stroke. Pt denies any LE weakness at this time. Pt reports he has had 2 strokes to this date. Pt reports only his speech was effected by his first stroke, and now his L UE is what is effected. Pt reports he lives at home by himself. Pt reports he does have stairs that lead to his laundry room in the basement. Pt reports he has to negotiate stairs one step at a time. Pt reports he doesn't feel like his balance is off, and he denies a Hx of falls. Pt reports he is not really limited with IADL's secondary to his L UE weakness, but notes he feels like he is weak and would like to be stronger. 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 Pt is R hand dominant. Pt denies any pain this date. Objective Objective: Neuro: B UE and LE sensation is WNL to light touch. ROM: B UE and LE ROM is WNL when compared bilaterally. MMT: L UE is grossly 4-/5 throughout. All other B UE and LE strength is rated at 5/5 throughout Gait: Pt is able to ambulate 300 feet performing all FGA activity without difficulty. No difficulty with stair negotiation. Balance/Special Test Scores Quick DASH Score: 55.0000 Goals Goal 1:: Increase L UE strength x 1 grade to aid with work requirements Goal Time Frame: 4-6 Weeks Goal 2:: I with HEP Rehabilitation Potential Physical Therapy Diagnosis: Pt has L UE weakness secondary to residual effects from CVA Rehabilitation Potential: Good Anticipated Interventions Patient/Client Instruction: Educate patient on: Condition and Plan of Care For the Purpose of:: To improve self management Therapeutic Exercise to Include: Strength training, Endurance training, Active ROM and Scapular Strength/Stabilization For the Purpose of:: To improve muscle performance and motor function and To increase tolerance to activity/condition/position Text: Thank you for the opportunity to evaluate your patient. For Medicare and Medicare HMO plans, please review the plan of care and approve it. It will need to be FAXED BACK to us at [phone] for Medicare purposes. For Medicare only, by signing this I certify the plan of care. Please let me know if there are questions or concerns regarding this plan of care. Physician Signature: Date:
--- NOTE | 2023-06-15 10:57 | HP.PTREVAL ---
Re-Evaluation Intro: SARAHI SOTO, It has been my pleasure to treat GUSTAVO CHADWICK over the last 9 visits for Pt has L UE weakness. Please see the progress note below for an update on the physical therapy plan of care! Subjective Subjective: Doing better overall making progress Objective Objective/Function: * Patient will continue o benefit from skilled PT with goals adjusted and appropriate* Neuro:Denies paresthesia/tingling ROM:AROM flexion 120 degree , abduction 115 ,ER 70 MMT: RTC 4/5 ,DELTOID 4-/5 POSTURE: trunk forward rounded shoulder head foreward Plan Plan Plan: PT INTERVENTIONS ROMPOSTURAL EX'S ,RTC /SCAPULAR STRENGTHENING Balance/Gait/Functional tests Balance/Special Test Scores Quick DASH Score: 54.5450 Goals Goals Goal 1:: Increase L UE strength x 1 grade to aid with work requirements Goal Time Frame: 4-6 Weeks Goal Progress: Progressing Goal 2:: I with HEP Goal Progress: Progressing Goal 3:: Patient to demonstrate 50% improvement with function and ADLS ( NEW GOAL) Goal Time Frame: 4-6 Weeks Goal 4:: Patient to improve quick dash by b3-5 points to improve QOL( NEW GOAL) Anticipated Interventions Anticipated Interventions Patient/Client Instruction: Educate patient on: Condition and Plan of Care For the Purpose of:: To improve self management Therapeutic Exercise to Include: Strength training, Endurance training, Active ROM and Scapular Strength/Stabilization For the Purpose of:: To improve muscle performance and motor function and To increase tolerance to activity/condition/position Re-Evaluation Ending Re-evaluation ending: Please do not hesitate to contact me at [phone] by phone or if you have questions or concerns regarding this new plan of care! Sincerely, Bob Vila, PT, Cert MDT, OCS
--- NOTE | 2023-07-17 11:47 | HP.PTDCSUM ---
Discharge Summary D/C summary: It has been my pleasure to treat GUSTAVO CHADWICK referred by SARAHI SOTO, with the diagnosis of Pt has L UE weakness for a total of 17 visit(s). Discharge Date: 07/17/23 Please see the following information for a summary of their discharge status. Subjective Subjective: Doing good best ever for years Overall Improvement % Improvement: 50 Objective Objective/Function: Neuro:Denies paresthesia/tingling ROM:AROM flexion 140 degree , abduction 145 ,ER 80 MMT: RTC 4/5 ,DELTOID 4/5 POSTURE: trunk forward rounded shoulder head forward Goals Goal 1:: Increase L UE strength x 1 grade to aid with work requirements Goal Progress: Goal Met Goal 2:: I with HEP Goal Progress: Goal Met Goal 3:: Patient to demonstrate 50% improvement with function and ADLS ( NEW GOAL) Goal Progress: Goal Met Goal 4:: Patient to improve quick dash by b3-5 points to improve QOL( NEW GOAL) Goal Progress: Goal Met Plan Plan: D/C D/C Information Discharge Comments: HEP d/c sentence: If there are questions or concerns regarding this patient's physical therapy, please feel free to call me at [phone]. Thank you for the referral of this patient. Sincerely, Bob Vila, PT, Cert MDT, OCS Balance/Gait/Functional tests Balance/Special Test Scores Quick DASH Score: 15.9075 Improvement % Improvement: 50
== END 2023-07-17 19:00 | disposition home or self-care (01) ==
LOC: PT 11:00
PROVIDERS: PCP Family Medicine; Referring Provider Physician Assistant Medical; Visit Provider Physician Assistant Medical
DX: Z86.73 Personal history of transient ischemic attack (TIA), and cerebral infarction without residual deficits (principal)
CPT/HCPCS: 97110; 97161; 97530

== ENCOUNTER → 2023-07-27 | Outpatient (CLI) | payer MEDICARE, OTHER, SELFPAY ==
[2023-07-27 12:06] LABS: Absolute Neutrophil Count 5.7 X10^3/uL (2.0-7.7); Basophil# 0.09 X10^3/uL; Basophil% 1.1 % (0-1); Eosinophil# 0.13 X10^3/uL; Eosinophils% 1.6 % (0-5); Hematocrit 41.1 % (40-54); Hemoglobin 13.2 g/dL (13.0-16.5); Lymphocyte % 20.4 % (19-41); Mean Corp Hgb Conc 32.1 g/dL (32-36); Mean Corpuscular Hgb 30.4 pg (27.0-32.0); Mean Corpuscular Volume 94.7 fL (80-94); Mean Platelet Vol. 11.6 fl (6.2-12.0); Monocyte# 0.69 X10^3/uL; Monocyte% 8.3 % (0-10); NRBC Flagged by Analyzer 0 % (0-5); Neutrophil # 5.71 X10^3/uL (2.7-7.7); Neutrophil % 68.4 % (47-70); Platelet Count 321 K/mm3 (150-450); RBC Distribution Width CV 12.3 % (11.6-14.6); RBC Distribution Width SD 42.8 fl (35.1-43.9); Red Blood Count 4.34 M/mm3 (4.6-6.2); White Blood Count 8.3 K/mm3 (4.4-11.0)
[2023-07-27 13:24] LABS: AST(SGOT) 22 U/L (15-37); Alanine Aminotransfer ALT/SGPT 26 U/L (16-61); Alkaline Phosphatase 94 U/L (45-117); Anion Gap 8 (5-15); BUN 37 mg/dL (7-18); BUN/Creat Ratio 25.3 RATIO (10-20); Calcium,Total 9.2 mg/dL (8.5-10.1); Chloride 109 mmol/L (98-107); Cholesterol 106 mg/dL (200); Creatinine, Serum 1.46 mg/dL (0.70-1.30); EST Glomerular Filtration Rate 51 mL/min (>60); Est Glom Filt Rate - Afr Amer 61 mL/min (>60); Globulin 4.1 g/dL (2.2-4.2); Glucose 142 mg/dL (74-106); High Density Lipoprotein 50 mg/dL; Potassium 4.2 mmol/L (3.5-5.1); Protein, Total 8.1 g/dL (6.4-8.2); Sodium Level 141 mmol/L (136-145); Thyroid Stim Hormone (TSH) 1.76 uIU/mL (0.358-3.74); Triglycerides 79 mg/dL; Very Low Density Lipoprotein 16 mg/dL (5-40)
== END | disposition home or self-care (01) ==
LOC: MFPLAB 10:26
PROVIDERS: PCP Family Medicine; Visit Provider Family Medicine
DX: D64.9 Anemia, unspecified (principal); I10 Essential (primary) hypertension; R41.3 Other amnesia
CPT/HCPCS: 36415; 80053; 80061; 84443; 85025

== ENCOUNTER → 2024-01-12 | Outpatient (CLI) | payer MEDICARE, OTHER, SELFPAY ==
[2024-01-12 15:13] LABS: Absolute Lymphocyte Count 2.33 X10^3/uL (0.83-4.51); Absolute Neutrophil Count 6.5 X10^3/uL (2.0-7.7); Basophil# 0.08 X10^3/uL; Basophil% 0.8 % (0-1); Eosinophil# 0.41 X10^3/uL; Hematocrit 42.8 % (40-54); Hemoglobin 13.1 g/dL (13.0-16.5); Lymphocyte # 2.33 X10^3/ul (0.83-4.51); Lymphocyte % 22.8 % (19-41); Mean Corp Hgb Conc 30.6 g/dL (32-36); Mean Corpuscular Hgb 29.1 pg (27.0-32.0); Mean Corpuscular Volume 95.1 fL (80-94); Monocyte# 0.87 X10^3/uL; Monocyte% 8.5 % (0-10); NRBC Flagged by Analyzer 0 % (0-5); Neutrophil # 6.52 X10^3/uL (2.7-7.7); Neutrophil % 63.6 % (47-70); Platelet Count 311 K/mm3 (150-450); RBC Distribution Width CV 12.7 % (11.6-14.6); RBC Distribution Width SD 43.9 fl (35.1-43.9); White Blood Count 10.2 K/mm3 (4.4-11.0)
[2024-01-12 15:35] LABS: Hemoglobin A1c 7.6 % (3.8-5.6)
== END | disposition home or self-care (01) ==
LOC: MFPLAB 11:50
PROVIDERS: PCP Family Medicine; Referring Provider Family Medicine; Visit Provider Family Medicine
DX: E11.9 Type 2 diabetes mellitus without complications (principal); D64.9 Anemia, unspecified
CPT/HCPCS: 36415; 83036; 85025

== ENCOUNTER 2024-01-26 11:00 | Outpatient (RCR) | payer MEDICARE, OTHER, SELFPAY ==
--- NOTE | 2023-12-12 08:21 | HP.PTEVAL_ITS ---
Patient's Visit Information Visit Information Visit Information: GUSTAVO CHADWICK is a 73 year old M referred to Physical Therapy by SARAHI SOTO with a diagnosis of Parkinsons. Date of Evaluation: 12/12/23 Physical Therapist: PERNELL Fried Visit Plan Frequency: 3x /Week Duration: 2 Months Plan: 3X/ week for 8 weeks to work on gait training (bigger stride, heel to toe, and more upright posture), balance, functional transfers/activities, posture, bed mobility (supine to sit and sit to supine and rolling), Trunk stretches (LTR, SKC, bridges), with HEP Subjective Subjective: He was dx with PD when he was walking with his head leaning forward. He reports that he has had no falls in the last [address] He has no freezing episodes. He has some trouble getting out of a chair and needs his arms to push himself up. Stairs: he has to go down there to washer and dryer with a railing. He feels like when he goes up the steps he keeps going FW. When he goes one at a time when he carries his laundry. He lives alone. He has no trouble rolling over in bed or getting in/out of the shower. Pt denies any neck pain. He denies dizziness Pain neck pain: Pain Intensity (Out of 10): 0 Objective Objective: Gait: Walks with WBOS with short stride and decrease heel to toe gait pattern and decrease hip extension Stairs: Up and down recip with 1 hand rail and 2 hand rails going down recip LE MMT: R hip flex 11 and L 13.9 R knee ext 19.2 and L 21.4 R knee flex 14.2 and L 13.3 TU:80 FGA: 14 Sitting opp arm and leg: able to do 3 in a row and then reverts back to same side Pt struggles with going from supine to sit and sit to supine. Rolling is also an issue. He has rigid trunk Standing balance: feels like he is leaning forward...worked a little on weight shifting BW to right himself Balance/Special Test Scores Functional Gait Assessment Score: 14 % Disability: 53.3400 Lower Extremity Functional Score: 55 Goals Goal 1:: I HEP Goal Time Frame: 6-8 Weeks Goal 2:: Be able to go from sit to supine and supine to sit with ease Goal Time Frame: 6-8 Weeks Goal 3:: Increase balance (FGA score was 17 on eval) Goal Time Frame: 6-8 Weeks Goal 4:: Walk with increase stride length and more upright posture Goal Time Frame: 6-8 Weeks Rehabilitation Potential Rehabilitation Potential: Good Anticipated Interventions Patient/Client Instruction: Educate patient on: Condition and Plan of Care For the Purpose of:: To decrease pain, To increase ROM, To improve nutrient delivery to tissue, To improve muscle performance and motor function, To increase tolerance to activity/condition/position, To improve performance and independence with ADL's, To decrease level of supervision to perform tasks, To improve gait and locomotor functions, To improve health of tissue, To decrease soft tissue restriction, To increase flexibility/ROM, To improve endurance, To improve balance and To improve safety with gait Therapeutic Exercise to Include: Strength training, Endurance training, Balance training, Coordination, Body mechanics, Postural training, Flexibilty training, Gait and locomotor training, Neuromotor development, Active ROM, Dynamic Lumbar Stabilization and Scapular Strength/Stabilization For the Purpose of:: To increase ROM, To improve nutrient delivery to tissue, To improve muscle performance and motor function, To improve ability to perform ADL's, To increase tolerance to activity/condition/position, To improve performance and independence with ADL's, To decrease level of supervision to pe rform tasks, To improve ability of physical actions for home/community/work/leisure, To improve gait and locomotor functions, To improve health of tissue, To decrease soft tissue restriction, To increase flexibility/ROM, To improve endurance, To improve balance and To improve safety with gait Functional Training to Include: Gait training For the Purpose of:: To improve gait and locomotor functions and To improve safety with gait Text: Thank you for the opportunity to evaluate your patient. For Medicare and Medicare HMO plans, please review the plan of care and approve it. It will need to be FAXED BACK to us at [phone] for Medicare purposes. For Medicare only, by signing this I certify the plan of care. Please let me know if there are questions or concerns regarding this plan of care. Physician Signature: Date:
--- NOTE | 2024-01-08 11:59 | HP.PTREVAL ---
Re-Evaluation Intro: SARAHI SOTO, It has been my pleasure to treat GUSTAVO CHADWICK over the last 11 visits for Parkinsons. Please see the progress note below for an update on the physical therapy plan of care! Subjective Subjective: He feels that his walking speed has improved some. He feels that PT is helping him and he likes PT. Objective Objective/Function: FGA 19 1 lap around inside loop 2 min and 16 seconds with VC's to increase stride length Supine to sit: pt struggles with supine to sit...uses his abdominal strain to sit up as in here he is afraid to roll of fear of rolling off the mat table Plan Plan Plan: 4 more visits for HEP (with pictures) for strength, balance, and gait activities (increase step length and speed (not too fast) and then DC. 3X/ week for 8 weeks to work on gait training (bigger stride, heel to toe, and more upright posture), balance, functional transfers/activities, posture, bed mobility (supine to sit and sit to supine and rolling), Trunk stretches (LTR, SKC, bridges), with HEP Balance/Gait/Functional tests Balance/Special Test Scores Functional Gait Assessment Score: 19 % Disability: 36.6700 Lower Extremity Functional Score: 75 Goals Goals Goal 1:: I HEP Goal Time Frame: 6-8 Weeks Goal 2:: Be able to go from sit to supine and supine to sit with ease Goal Time Frame: 6-8 Weeks Goal Progress: Progressing Goal 3:: Increase balance (FGA score was 17 on eval) Goal Time Frame: 6-8 Weeks Goal 4:: Walk with increase stride length and more upright posture Goal Time Frame: 6-8 Weeks Goal Progress: Progressing Anticipated Interventions Anticipated Interventions Patient/Client Instruction: Educate patient on: Condition and Plan of Care For the Purpose of:: To decrease pain, To increase ROM, To improve nutrient delivery to tissue, To improve muscle performance and motor function, To increase tolerance to activity/condition/position, To improve performance and independence with ADL's, To decrease level of supervision to perform tasks, To improve gait and locomotor functions, To improve health of tissue, To decrease soft tissue restriction, To increase flexibility/ROM, To improve endurance, To improve balance and To improve safety with gait Therapeutic Exercise to Include: Strength training, Endurance training, Balance training, Coordination, Body mechanics, Postural training, Flexibilty training, Gait and locomotor training, Neuromotor development, Active ROM, Dynamic Lumbar Stabilization and Scapular Strength/Stabilization For the Purpose of:: To increase ROM, To improve nutrient delivery to tissue, To improve muscle performance and motor function, To improve ability to perform ADL's, To increase tolerance to activity/condition/position, To improve performance and independence with ADL's, To decrease level of supervision to perform tasks, To improve ability of physical actions for home/community/work/leisure, To improve gait and locomotor functions, To improve health of tissue, To decrease soft tissue restriction, To increase flexibility/ROM, To improve endurance, To improve balance and To improve safety with gait Functional Training to Include: Gait training For the Purpose of:: To improve gait and locomotor functions and To improve safety with gait Re-Evaluation Ending Re-evaluation ending: Please do not hesitate to contact me at [phone] by phone or if you have questions or concerns regarding this new plan of care! Sincerely, Bettye Quintana MPT
--- NOTE | 2024-01-26 11:22 | HP.PTDCSUM ---
Discharge Summary D/C summary: It has been my pleasure to treat GUSTAVO CHADWICK referred by SARAHI SOTO, with the diagnosis of Parkinsons for a total of 15 visit(s). Discharge Date: 01/26/24 Please see the following information for a summary of their discharge status. Subjective Subjective: Pt reports that he is doing his exercises at home. He now has a foot problem because his veins are getting old and he is seeing the foot Dr Pain neck pain: Pain Intensity (Out of 10): 0 Overall Improvement % Improvement: 90 Objective Objective/Function: Gait walks with bigger strides than when first started PT FGA: 20 Supine to sit: pt did not want to get on the table because it is so narrow but he said that he is able to roll over in his bed at home easier than here. Goals Goal 1:: I HEP Goal Progress: Goal Met Goal 2:: Be able to go from sit to supine and supine to sit with ease Goal Progress: Progressing Goal 3:: Increase balance (FGA score was 17 on eval) Goal 4:: Walk with increase stride length and more upright posture Goal Progress: Progressing Plan Plan: DC PT to HEP D/C Information Discharge Comments: DC PT d/c sentence: If there are questions or concerns regarding this patient's physical therapy, please feel free to call me at [phone]. Thank you for the referral of this patient. Sincerely, Bettye Quintana, MPT Balance/Gait/Functional tests Balance/Special Test Scores Functional Gait Assessment Score: 20 % Disability: 33.3400 Lower Extremity Functional Score: 75 Improvement % Improvement: 90
== END 2024-01-26 19:00 | disposition home or self-care (01) ==
LOC: PT 11:00
PROVIDERS: PCP Family Medicine; Referring Provider Physician Assistant Medical; Visit Provider Physician Assistant Medical
DX: G20.C Parkinsonism, unspecified (principal); M79.645 Pain in left finger(s); M54.2 Cervicalgia
CPT/HCPCS: 97110; 97161; 97530

== ENCOUNTER → 2024-05-01 | Outpatient (CLI) | payer MEDICARE, OTHER, SELFPAY ==
--- NOTE | 2024-05-01 10:50 | ART_ITS ---
Reason For Study Reason For Study: PVD Procedure A bilateral lower extremity continuous wave Doppler with analog waveform analysis,segmental pressures,and ankle brachial indexes without exercise. Left Segmental Pressures Left brachial= 138mmHg. Left posterior tibial artery = 152mmHg. Left dorsalis pedis artery = 144mmHg. Left digit = 104 mmHg. The left dorsalis pedis waveforms are triphasic. The left posterior tibial artery waveforms are triphasic. Right Segmental Pressures Right brachial= 130mmHg. Right posterior tibial artery = 151mmHg. Right dorsalis pedis artery = 143mmHg. Right digit = 113 mmHg. The right dorsalis pedis waveforms are triphasic. The right posterior tibial artery waveforms are triphasic. Indices The right ankle brachial index by the dorsalis pedis is 1.04. The right ankle brachial index by the posterior tibial artery is 1.09. The right digital-brachial index is 0.82. The left ankle brachial index by the dorsalis pedis is 1.04. The left ankle brachial index by the posterior tibial artery is 1.10. The left digital-brachial index is 0.75. VL/Lower Ext Art Exam w/o Exercis Interpretation Summary Triphasic Doppler waveforms are noted at ankle level bilaterally. Pulse-volume recordings appear satisfactory at all levels bilaterally. Resting ankle-brachial indices are normal bilaterally. Digi yusuf-brachial indices are normal bilaterally. There is no evidence of significant arterial occlusive disease in the lower ext remities bilaterally. Ordering Physician: Fabien Leal Referring Physician: Tracie Abreu Performed By: Shilpi Black RVT
== END | disposition home or self-care (01) ==
LOC: CVS 10:49
PROVIDERS: PCP Family Medicine; Referring Provider Podiatrist; Visit Provider Podiatrist
DX: I73.89 Other specified peripheral vascular diseases (principal)
CPT/HCPCS: 93923

== ENCOUNTER 2024-10-17 18:03 | Inpatient (IN) | payer MEDICARE, OTHER, SELFPAY ==
[2024-10-17] VITALS (9 sets, daily range): BP systolic 102–134; BP diastolic 54–83; PULSE 112–134; RESP 18–29; TEMP 36.7–39.4; O2SAT 93–97; BMI 25.0; BMI 24.3
--- NOTE | 2024-10-17 18:06 | CT_ITS ---
PROCEDURE: CT BRAIN/HEAD WITHOUT CONTRAST 10/17/2024 REASON FOR EXAM: HEAD TRAUMA, TECHNIQUE: Procedure Code: CTBR Modality: CT Procedure: BRAIN/HEAD WITHOUT CONTRAST Coronal and Sagittal reconstruction series were provided. One or more dose reduction techniques were used (e.g., Automated exposure control, adjustment of the mA and/or kV according to patient size, use of iterative reconstruction technique. RADIATION DOSE SUMMARY: CTDlvol: 44.99 mGy DLP: 863.6 mGycm COMPARISON: CT head 01/05/2023. FINDINGS: No acute intracranial hemorrhage, extra-axial collection, mass effect or evidence of acute infarct. Moderate-advanced chronic small-vessel ischemic changes with multiple patchy areas of chronic encephalomalacia and gliosis from remote infarcts involving the left MCA vascular territory, and within the right parieto-occipital lobes. Mild generalized parenchymal volume loss. Intact skull base and calvarium. Clear paranasal sinuses and mastoid air cells. CT/Brain/Head without Contrast IMPRESSION: No evidence of acute intracranial pathology. 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 Reading Location: [facility]
--- NOTE | 2024-10-17 18:25 | RAD_ITS ---
PROCEDURE: CHEST 1 VIEW (PORTABLE) 10/17/2024 REASON FOR EXAM: ADVENTITIAL BREATH SOUNDS TECHNIQUE: Frontal view of the chest. COMPARISON: Chest x-ray 11/22/2022 FINDINGS: Hardware: None. Heart: The heart size is normal. Lungs: Small left pleural effusion, superimposed consolidation not excluded. No definite pneumothorax Bones: The bones are unremarkable. RAD/Chest 1 View (Portable) IMPRESSION: Small left pleural effusion, superimposed consolidation not excluded. Reading [facility]
[2024-10-17 18:30] LABS: Allen Test Positive; Base Excess -3 mmol/L (-2 to +2); FI02 21.0; PO2 70 mmHG (75-100); SITE L Radial; SO2 96 % (95-99)
[2024-10-17 18:34] LABS: Hematocrit 41.0 % (40-54); Hemoglobin 13.7 g/dL (13.0-16.5); Immature Granulocytes Count 0.050 X10^3/uL (0.0-0.0); Mean Corp Hgb Conc 33.4 g/dL (32-36); Mean Corpuscular Volume 91.5 fL (80-94); Mean Platelet Vol. 12.2 fl (6.2-12.0); NRBC Flagged by Analyzer 0 % (0-5); POSITIVE DIFFERENTIAL YES; Platelet Count 275 K/mm3 (150-450); RBC Distribution Width CV 12.9 % (11.6-14.6); RBC Distribution Width SD 43.2 fl (35.1-43.9); Red Blood Count 4.48 M/mm3 (4.6-6.2); White Blood Count 15.5 K/mm3 (4.4-11.0)
--- NOTE | 2024-10-17 19:11 | EX.ED.DYSGE1 ---
HPI History of Present Illness Chief Complaint: Fall Detail of Chief Complaint: Patient last seen well 3 days ago. Family called paramedics because he was Informant: patient and EMS Onset/Context/Timing Onset: - (Last seen well 3 days ago) Context: - (Unknown. Patient does not know when he fell) Timing: - (Unable to get up off the floor.) Quality: Patient has no complaints Location: Found on bedroom floor. Incontinent of urine and stool Current Severity: Patient denies any symptoms Maximum Severity: Patient denies any symptoms Worsened by: Nothing per patient Relieved by: Not applicable Associated Symptoms Associated Symptoms: Unable to get up and when asked why he had no response. Narrative Narrative: Patient is a active 73-year-old per EMS. He is awake but not alert. He is oriented. He cannot explain why or how he fell. He does know the date, where he is at and his name. He denies headache. Denies double vision blurred vision loss of vision. He denies ringing in his ears decreased hearing. He was unaware that he has a swollen nose with a laceration. He denies dental pain. He denies inability to open or close his mouth. He denies neck pain. He denies chest pain. No shortness of breath. He denies abdominal pain, he denies nausea or vomiting. He denies dysuria, frequency, urgency or hematuria. He denies numbness or tingling in his arms or legs. He had a prior stroke which affected his right side. Did speak with EMS. Patient needed full assistance to get onto the cot. He was not able to get up even with minimal assistance. He told them he been on the ground for an hour. His findings are not consistent with him being on the ground for an hour. Squad also inform me that his pulse ox was 75%. They were not certain this is accurate since he had cold hands. The ABG that was obtained on room air. Suspect was due to cold extremities. Recent Illness/Hospitalization: No [facility] Medical History Dysphagia Primary cardiomyopathy Essential (primary) hypertension Diastolic heart failure Facial droop History of developmental delay History of DVT (deep vein thrombosis) Remote history of stroke DM II (diabetes mellitus, type II), controlled Dysarthria Stroke/cerebrovascular accident Home Medications ?Medication ?Instructions ?Recorded ?Last Taken ?Type multivitamin 1 cap PO DAILY supplement 12/26/21 11/24/22 History atorvastatin 40 mg tablet 40 mg PO QHS #30 tabs 12/05/22 Unknown Rx lisinopril 2.5 mg tablet 2.5 mg PO DAILY #30 tabs 12/05/22 Unknown Rx metoprolol succinate 25 mg 25 mg PO DAILY #30 tabs 12/05/22 Unknown Rx tablet,extended release 24 hr loratadine 10 mg tablet (Allergy 10 mg PO DAILY 01/20/23 Unknown History Relief (loratadine)) sennosides 8.6 mg tablet (Senna 8.6 mg PO QHS 01/20/23 Unknown History Lax) metformin 500 mg tablet 500 mg PO DAILY 05/23/23 Unknown History pantoprazole 20 mg tablet,delayed 20 mg PO DAILY 05/23/23 Unknown History release apixaban 5 mg tablet (Eliquis) 5 mg PO BID 11/09/23 Unknown History aspirin 81 mg chewable tablet 81 mg PO QDAY 11/09/23 Unknown History carbidopa 25 mg-levodopa 100 mg 1 tab PO TID 11/09/23 Unknown History tablet ipratropium bromide 21 mcg (0.03 2 spray intranasal TID PRN nasal 11/09/23 Unknown History %) nasal spray congestion Allergy/AdvReac Type Severity Reaction Status Date / Time No Known Allergies Allergy Verified 10/17/24 18:07 Family History Father Diabetes Social History household members: none housing: apartment number of children: 0 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 pets and animals: No Smoking Status: Never smoker alcohol intake: never substance use type: does not use ROS ROS ED Constitutional Constitutional ED: Denies chills, fever(s), subjective or sweats Eyes Eyes: Denies blurry vision or change in vision ENT ENT ED: Denies ear pain, rhinorrhea or sore throat Cardiovascular Cardiovascular: Denies chest pain or palpitations Respiratory/Chest Respiratory/Chest: Denies cough, dyspnea or dyspnea on exertion Gastrointestinal Gastrointestinal: Denies abdominal pain, diarrhea, nausea or vomiting Genitourinary Genitourinary ED: Denies dysuria or urinary frequency Musculoskeletal Musculoskeletal: Denies arthralgias or myalgias Integumentary Denies rash Neurologic Neurologic: Reports weakness; Denies headache(s) or paresthesias Endocrine Endocrinology: Denies cold intolerance or heat intolerance Hematologic/Lymphatic Hematologic/Lymphatic: Reports easy bruising Allergic/Immunologic Allergic/Immunologic ED: Denies mouth swelling or tongue swelling EXAM Physical Exam Const Vital Signs: 10/17/24 18:07 10/17/24 18:11 10/17/24 18:41 Temperature 99.7 F H 99.7 F H Temperature Source Oral Oral Pulse Rate 130 H 132 H Respiratory Rate 24 H 24 H Respiratory Effort Normal Non-Labored Blood Pressure 127/71 H 127/71 H Blood Pressure Mean 89 89 Pulse Ox 94 97 Oxygen Delivery Method Room Air Room Air 10/17/24 19:04 10/17/24 19:11 10/17/24 20:00 Temperature 99.7 F H 99.6 F H Temperature Source Oral Oral Pulse Rate 122 H 123 H 126 H Respiratory Rate 24 H 23 H 29 H Respiratory Effort Blood Pressure 104/76 104/76 111/54 L Blood Pressure Mean 85 85 73 Pulse Ox 93 93 94 Oxygen Delivery Method Room Air Room Air Room Air Positive well nourished, well developed and unkempt General Appearance ED: unkempt and well developed; Negative for cyanotic, diaphoretic or pallor HEENT Reports dry mucous membranes HEENT Narrative: Patient has bruising and laceration to the face. Ears normal. No hemotympanum. He has some blood in his nares. There is no septal deviation hematoma. Posterior pharynx without erythema or exudate. Mouth ED: Yes dry mucous membranes Mouth: dry mucous membranes Eyes PERRL and EOMs intact bilaterally Eyes Narrative: There is no nystagmus. General Eye ED: Negative for pale conjunctiva or scleral icterus Neck no lymphadenopathy, supple and no JVD Chest Wall inspection of chest normal and palpation of chest normal Resp normal respiratory effort and clear to auscultation bilaterally Cardio regular rhythm, S1 normal heart sound, S2 normal heart sound and no murmurs Rate: tachycardic GI normal to inspection, nondistended, normoactive bowel sounds, non-tender, non-distended and no masses; Negative for hepatosplenomegaly Narrative: Testes tender bilaterally. No scrotal swelling. Back/Spine no CVA tenderness Extremity Negative for normal to inspection Extremity Narrative: Patient has mottling of his distal upper and lower extremities. His hands and feet are cold to touch. Capillary refill in his hands and feet are delayed. General Extremety ED: Yes edema General Extremity: edema Neuro oriented x3 and CN's II-XII intact bilaterally Sensorium / Orientation: Negative for alert Motor Exam: strength 5/5 throughout Psych Appearance: unkempt Skin No no wounds General Skin Exam: Negative for elasticity normal, jaundice or pallor Sepsis Attestation Sepsis Alert: Yes Sepsis Attestation: Sepsis Ruled Out Date exam was performed: 10/17/24 Time exam was performed: 20:08 MDM MDM MDM Narrative Medical decision making narrative: Since patient has had head trauma on anticoagulant we will obtain CT of the head to rule out intracranial bleed i.e. epidural hematoma, subdural hematoma, traumatic subarachnoid hemorrhage or intraparenchymal contusion. Since he is alert oriented has a nonfocal neurologic exam no posterior midline pain and full active range of motion without pain imaging of the neck was not obtained. EKG was obtained to assess for dysrhythmia or changes that may suggest hyperkalemia. Will obtain competence of metabolic panel to assess renal function, CO2 anion gap electrolytes and specifically hyponatremia hyperkalemia. UA was ordered to assess for evidence of infection. CPK to rule out rhabdomyolysis. Clinically he is dehydrated. 1 L normal saline was ordered. Lab Data Attestation: I reviewed the patient's lab results. Lab results narrative: White count is elevated. There is slight shift. There is no bandemia. H&H and indices are normal. Comprehensive metabolic panel is remarked for elevated BUN and creatinine of 55 and 2.76. Estimated GFR is 24. BUN to creatinine ratio is 20:1. Glucose is elevated 344. CO2 is normal but the anion gap is elevated. CPK is greater than 16,000. PT is slightly elevated which may be due to the fact that he is on apixaban. Labs: Laboratory Results - last 24 hr 10/17/24 10/17/24 18:24 19:23 WBC 15.5 H RBC 4.48 L Hgb 13.7 Hct 41.0 MCV 91.5 MCH 30.6 MCHC 33.4 RDW Std Deviation 43.2 RDW Coeff of Sara 12.9 Plt Count 275 MPV 12.2 H Immature Gran % (Auto) 0.300 Neut % (Auto) 88.6 H Lymph % (Auto) 2.7 L [place] % (Auto) 7.1 Eos % (Auto) 0.8 Baso % (Auto) 0.5 Absolute Neuts (auto) 13.7 H Absolute Lymphs (auto) 0.41 L Nucleated RBC % 0 PT 19.7 H INR 1.6 APTT 33.3 Sodium 138 Potassium 4.5 Chloride 98 Carbon Dioxide 21.0 Anion Gap 19 H BUN 55 H Creatinine 2.76 H Estim Creat Clear Calc 25.35 L Est GFR (MDRD) Non-Af 24 L BUN/Creatinine Ratio 20.1 H Glucose 344 H Lactic Acid 3.6 H* Calcium 9.5 Total Bilirubin 0.76 AST 392 H ALT 77 H Alkaline Phosphatase 104 Total Creatine Kinase 38293 H Total Protein 8.2 Albumin 4.0 Globulin 4.3 H Albumin/Globulin Ratio 0.9 POC Glucose 320 H ABG Data Attestation: I personally reviewed and interpreted this ABG as follows: Interpretation: ABG reveals alkalosis. pH 7.5, pCO2 26.1, pO2 71, O2 sat 96%, base excess -3, total CO2 21 and bicarb is slightly decreased at 20.2. This reveals an increased AA gradient and respiratory alkalosis. ABG results: ABG 10/17/24 18:27 Specimen Type ART Sample Site L Radial pH 7.50 H Bicarbonate Actual 20.2 L Total CO2 21 Base Excess -3 L O2 Saturation 96 O2 % 21.0 ABG pCO2 26.1 L ABG pO2 70 L Teodoro Test Positive O2 Delivery Device Room Air Vent Mode Not entered Radiography Chest X-Ray - ED: 1 View and Read by ED Physician (Single view chest x-ray reveals a left pleural effusion. There is no evidence of pneumothorax or obvious fractured ribs. Cardiac silhouette is unremarkable. Heart size is normal. [place] is unremarkable.) Diagnostic Testing: Clinical Impression(s) from Imaging Studies Brain CT 10/17/24 18:06 IMPRESSION: No evidence of acute intracranial pathology. Advanced chronic small-vessel ischemic changes with multiple patchy areas of old infarct involving the bilateral cerebral hemispheres. Reading Location: [facility] Chest X-Ray 10/17/24 18:25 IMPRESSION: Small left pleural effusion, superimposed consolidation not excluded. Reading Location: [facility] CT of the head was reviewed. This reveals no evidence of intracranial bleed i.e. subdural hematoma, traumatic subarachnoid hemorrhage or contusion. There is evidence of multiple prior strokes. EKG Initial EKG: Attestation: I personally reviewed and interpreted this EKG as follows: Interpretation: Sinus Tachycardia (Rate is 130. Patient has incomplete right bundle branch block. Parables 142 ms. Cures duration 102 ms. QT duration [place] 12 ms. [place] is unremarkable. Patient has nonsevere changes which may represent many things. There is no obvious acute ischemic changes noted.) Management Discussion w/another healthcare provider: Hospitalist (Spoke with Dr. Salmeron. Admit to PCU) Treatment and Re-Evaluation :: Nursing staff was unable to place Larkin, coud? Larkin. He has a traumatic injury of blood from the meatus. Bladder scan revealed 200 cc. If patient is unable to urinate will need to consult urology. Critical Care Time Critical Care Time: Yes Critical care time (excluding procedures): 30-74 minutes (31), 75-104 minutes (History, physical, documentation, review of prior records, independent or potation laboratory results, initiation of therapy), Discussing w/Patient &/or Family/Front Desk Monitor, Discussing w/Consultants and Arranging Admission or Transfer Discharge Plan Dx/Rx/DC Orders Clinical Impression: Acute renal failure due to rhabdomyolysis, Debility, Essential (primary) hypertension, Primary cardiomyopathy, Closed head injury, Laceration of nose, History of multiple strokes, Acidosis, lactic, High anion gap, Sinus tachycardia seen on front desk monitor Disposition Disposition: Acute Care Hospital [facility]
--- NOTE | 2024-10-17 19:15 | ED.RN ---
TWO UNSUCCESSFUL ATTEMPTS MADE FOR A R[employer]ON CATHETER. BLOOD NOTED TO TIP OF RONDON CATHETER UPON ATTEMPT W/ COUDE CATHETER. PT. REPORTS BEING UNABLE TO URINATE AT THIS TIME. PT. TOLERATED ATTEMPTS WELL. PROVIDER Heidy MACIAS NOTIFIED AT THIS TIME. RESPONSE BY PROVIDER, BLADDER SCAN HIM AND IT WILL TELL ME HOW SOON I NEED TO DO SOMETHING.
[2024-10-17 19:19] LABS: Partial Thromboplast Time 33.3 Seconds (24.1-36.2); Prothrombin Time (Protime)PT. 19.7 SECONDS (11.7-14.9)
[2024-10-17 19:39] LABS: AST(SGOT) 392 U/L (<=37); Alanine Aminotransfer ALT/SGPT 77 U/L (<=46); Albumin, Serum 4.0 g/dL (3.4-4.8); Alkaline Phosphatase 104 U/L (40-129); Anion Gap 19 (5-15); BUN 55 mg/dL (4-19); BUN/Creat Ratio 20.1 RATIO (10-20); Calcium,Total 9.5 mg/dL (7.6-11.0); Carbon Dioxide 21.0 mmol/L (21.0-32.0); Chloride 98 mmol/L (98-108); Estimated Creatinine Clearance 25.35 ml/min (50-250); Globulin 4.3 g/dL (2.2-4.2); Glucose 344 mg/dL (70-99); Potassium 4.5 mmol/L (3.3-5.1)
[2024-10-17 19:51] LABS: CPK Total, Creatine Kinase 16437 U/L (24-195)
--- NOTE | 2024-10-17 20:13 | HP.PCM.HOS_ITS ---
[facility] - General General Date of Admission: 10/17/24 Date of Service: 10/17/24 Chief Complaint: Fall at Home. 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 HS, seasonal allergies; on loratadine and OA who presents to [facility] ER complaining of fall at home. Mr. Patton is not a fully-reliable historian at this time so information was gathered from vincent, medical staff and computer. According to the records he was last seen well ~3 days ago with the patient not sure when he fell or how he fell - but he admits he was unable to get up off the floor. When EMS was activated they noted patient was incontinent of urine and stool with Larkin unable to be placed with subsequent hematuria. He was also unaware he had sustained a laceration of his nose with swelling until the ER physician informed him in addition to statin he thinks he was on the floor for only an hour - which is highly doubtful. He admits to generalized weakness and easy bleeding/bruising on apixaban. He denies associated fever, chills, nausea, vomiting, abdominal pain, headache, visual changes, paresthesias, tinnitus, decreased hearing, chest pain, palpitations, heart racing, dysuria or hematuria. In the ER he was noted to have a low-grade Fever of 99.6 degrees Fahrenheit, Leukocytosis of 15.5K, Lactic Acidosis of 3.6 mmol/L and persistent Tachycardia in the ~125 bpm range consistent with SIRS; with no identifiable source of infection at this time complicated by CHRISTY; with elevated serum creatinine of 2.76 mg/dL (up from his previous baseline of 1.46 mg/dL) likely due to Rhabdomyolysis; evidenced by highly elevated CPK of 16,437 U/L after recent Fall with suspected prolonged down-time compounded by Hyperglycemia of 344 mg/dL; indicating uncontrolled DM-2 present on admission in addition to clinical evidence of Hematuria with Urinary Retention causing Larkin to be unable to be placed in ER with an elevated anion gap of 19 present on admission with CXR and Head CT done in ER unremarkable for acute pathologic findings. He was then admitted to the PCU for treatment under the Sepsis protocol for a stay that is expected to extend beyond 2 midnights. [facility] Medical History (Updated 10/18/24 @ 02:[address] Kenrick Ng, DO) Facial droop Dysphagia Primary cardiomyopathy Essential (primary) hypertension Diastolic heart failure History of developmental delay History of DVT (deep vein thrombosis) Remote history of stroke DM II (diabetes mellitus, type II), controlled Dysarthria Stroke/cerebrovascular accident Home Medications ?Medication ?Instructions ?Recorded ?Last Taken ?Type multivitamin 1 cap PO DAILY supplement 11/24/22 History atorvastatin 40 mg tablet 40 mg PO QHS #30 tabs Unknown Rx lisinopril 2.5 mg tablet 2.5 mg PO DAILY #30 tabs Unknown Rx metoprolol succinate 25 mg 25 mg PO DAILY #30 tabs Unknown Rx tablet,extended release 24 hr loratadine 10 mg tablet (Allergy 10 mg PO DAILY Unknown History Relief (loratadine)) sennosides 8.6 mg tablet (Senna 8.6 mg PO QHS 01/20/23 Unknown History Lax) metformin 500 mg tablet 500 mg PO DAILY 05/23/23 Unk nown History pantoprazole 20 mg tablet,delayed 20 mg PO DAILY 05/22 Unknown History release apixaban 5 mg tablet (Eliquis) 5 mg PO BID 11/09/23 Un known History aspirin 81 mg chewable tablet 81 mg PO QDAY 11/09/23 U nknown History carbidopa 25 mg-levodopa 100 mg 2 tab PO TID 11/09/23 Unknown History tablet ipratropium bromide 21 mcg (0.03 2 spray intranasal TI D PRN nasal 11/09/23 Unknown History %) nasal spray congestion Allergy/AdvReac Type Severity Reaction Status Date / Time No Known Allergies Allergy Verified 10/17/24 22:17 Family History Father Diabetes Social History household members: none housing: apartment number of children: 0 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 pets and animals: No Smoking Status: Never smoker alcohol intake: never substance use type: does not use ROS ROS Narrative Review of Systems: Constitutional: Patient denies fever or chills. Eyes: Patient denies changes in vision or discharge from eyes. ENT: Patient admits to nasal swelling and laceration but he denies runny nose, sore throat or ear pain. Resp: Patient denies SOB or cough. CV: Patient denies chest pain, palpitations or heart racing. GI: Patient denies abdominal pain, nausea, vomiting or diarrhea with HPI indicating incontinence of stool. : Patient noted to have hematuria and urinary retention in ER but he denies complaints. MSK: Patient admits to generalized weakness after recent fall but he denies arthralgias or myalgias. Skin: Patient has no evidence of rash, abscess, wounds or jaundice. Psych: Patient denies symptoms of uncontrolled depression or anxiety. Neuro: Patient admits to generalized weakness and chronic debility after multiple CVA's with no new neurologic deficit, paresthesias or headache as per HPI. Allergy: Patient denies lip swelling, tongue swelling or urticaria. Hematology: Patient admits to easy bleeding and easy bruisability on apixaban. Endocrinology: Patient denies polyuria, polydipsia, polyphagia or heat/cold intolerance. 14 point ROS otherwise negative except for positives noted above in HPI. Vital Signs Vital Signs Vital Signs: 10/17/24 18:07 10/17/24 18:11 10/17/24 18:41 Temperature 99.7 F H 99.7 F H Temperature Source Oral Oral Pulse Rate 130 H 132 H Respiratory Rate 24 H 24 H Respiratory Effort Normal Non-Labored Blood Pressure 127/71 H 127/71 H Blood Pressure Mean 89 89 Pulse Ox 94 97 Oxygen Delivery Method Room Air Room Air 10/17/24 19:04 10/17/24 19:11 10/17/24 20:00 Temperature 99.7 F H 99.6 F H Temperature Source Oral Oral Pulse Rate 122 H 123 H 126 H Respiratory Rate 24 H 23 H 29 H Respiratory Effort Blood Pressure 104/76 104/76 111/54 L Blood Pressure Mean 85 85 73 Pulse Ox 93 93 94 Oxygen Delivery Method Room Air Room Air Room Air Weight Weight: 174 lb 9.698 oz Body Mass Index (BMI) 25.0 Physical Exam Const alert, oriented x3, no apparent distress and average body habitus Constitutional Narrative: Chronically ill but nontoxic appearance. General Appearance: cooperative HEENT normocephalic and hearing grossly normal bilaterally HEENT Narrative: Mucous membranes dry with dry blood in swollen nares and large laceration diagonally across the nose. Eyes PERRL, EOMs intact bilaterally and conjunctivae normal Neck no lymphadenopathy, supple and no JVD Resp normal respiratory effort, no retractions, no use of accessory muscles and clear to auscultation bilaterally Cardio regular rate and regular rhythm Cardio Narrative: Persistent tachycardia in the ~125 bpm range noted. GI normal to inspection, nondistended, normoactive bowel sounds, soft to palpation, non-tender and non-distended Extremity Extremity Narrative: Mottling of all extremities with trace edema and delayed capillary refill noted. Skin Skin Narrative: Patient has mottling of extremities but no rash. Neuro oriented x3, CN's II-XII intact bilaterally, moves all extremities and no focal motor deficits Sensorium / Orientation: awake, alert, oriented to person, oriented to place and oriented to time Speech: speech normal Psych affect normal Results Medical Records Data Attestation: I reviewed the patient's medical records Lab / Micro Data Attestation: I reviewed the patient's lab results. 10/17/24 18:24 10/17/24 18:24 Labs: Laboratory Results - last 24 hr 10/17/24 18:24: WBC 15.5 H, RBC 4.48 L, Hgb 13.7, Hct 41.0, MCV 91.5, MCH 30.6, MCHC 33.4, RDW Std Deviation 43.2, RDW Coeff of Sara 12.9, Plt Count 275, MPV 12.2 H, Immature Gran % (Auto) 0.300, Neut % (Auto) 88.6 H, Lymph % (Auto) 2.7 L , [place] % (Auto) 7.1, Eos % (Auto) 0.8, Baso % (Auto) 0.5, Absolute Neuts (auto) 13.7 H, Absolute Lymphs (auto) 0.41 L, Nucleated RBC % 0, PT 19.7 H, INR 1.6, APTT 33.3, Sodium 138, Potassium 4.5, Chloride 98, Carbon Dioxide 21.0, Anion Gap 19 H, BUN 55 H, Creatinine 2.76 H, Estim Creat Clear Calc 25.35 L, Est GFR (MDRD) Non-Af 24 L, BUN/Creatinine Ratio 20.1 H, Glucose 344 H, Lactic Acid 3.6 H*, Calcium 9.5, Total Bilirubin 0.76, AST 392 H, ALT 77 H, Alkaline Phosphatase 104, Total Creatine Kinase 01063 H, Total Protein 8.2, Albumin 4.0, Globulin 4.3 H, Albumin/Globulin Ratio 0.9 10/17/24 19:23: POC Glucose 320 H ABG Data ABG results: ABG 10/17/24 18:27 Specimen Type ART Sample Site L Radial pH 7.50 H Bicarbonate Actual 20.2 L Total CO2 21 Base Excess -3 L O2 Saturation 96 O2 % 21.0 ABG pCO2 26.1 L ABG pO2 70 L Teodoro Test Positive O2 Delivery Device Room Air Vent Mode Not entered Imaging Radiology Impression Brain CT 10/17/24 18:06 IMPRESSION: No evidence of acute intracranial pathology. Advanced chronic small-vessel ischemic changes with multiple patchy areas of old infarct involving the bilateral cerebral hemispheres. Reading Location: [facility] Chest X-Ray 10/17/24 18:25 IMPRESSION: Small left pleural effusion, superimposed consolidation not excluded. Reading [facility] Assessment & Plan Assessment/Plan (1) SIRS (systemic inflammatory response syndrome): (2) Sinus tachycardia seen on pot washer: (3) CHRISTY (acute kidney injury): (4) Rhabdomyolysis: QUALIFIERS: Rhabdomyolysis type: non-traumatic Qualified Code(s): M62.82 - Rhabdomyolysis (5) Fall: QUALIFIERS: Encounter type: initial encounter Qualified Code(s): W19.XXXA - Unspecified fall, initial encounter (6) Hematuria: QUALIFIERS: Hematuria type: unspecified type Qualified Code(s): R 31.9 - Hematuria, unspecified (7) Urinary retention: (8) High anion gap: (9) Hyperglycemia due to type 2 diabetes mellitus: QUALIFIERS: Diabetes mellitus rat exterminator insulin use: without halfway use Qualified Code(s): E11.65 - Type 2 diabetes mellitus with hyperglycemia (10) Stroke/cerebrovascular accident: QUALIFIERS: CVA mechanism: stenosis Laterality of affected vessel: right Precerebral and cerebral artery: anterior cerebral artery Q ualified Code(s): I63.521 - Cerebral infarction due to unspecified occlusion or stenosis of right anterior cerebral artery (11) Parkinson disease: QUALIFIERS: Dyskinesia presence: unspecified whether dyskinesia F luctuating manifestations: unspecified whether manifestations fluctuate Q ualified Code(s): G20.A1 - Parkinson's disease without dyskinesia, without mention of fluctuations (12) History of DVT (deep vein thrombosis): (13) Chronic anticoagulation: PLAN: Plan 1. Low-grade Fever of 99.6 degrees Fahrenheit, Leukocytosis of 15.5K, Lactic Acidosis of 3.6 mmol/L and persistent Tachycardia in the ~125 bpm range consistent with SIRS; with no identifiable source of infection at this time - Admit to PCU for treatment under the Sepsis protocol. 2. CHRISTY; with elevated serum creatinine of 2.76 mg/dL (up from his previous baseline of 1.46 mg/dL) complicating #1 - Aggressively volume resuscitate and recheck renal indices daily to follow trend. We will avoid potentially nephrotoxic agents. 3. Rhabdomyolysis; evidenced by highly elevated CPK of 16,437 U/L after recent Fall with suspected prolonged down-time likely causing #2 with subsequent Generalized Weakness - Give copious IVF and serialize CPK daily to follow trend. 4. Hematuria with Urinary Retention causing Larkin to be unable to be placed in ER with an elevated anion gap of 19 present on admission compounding #1 - #3 - Check PSA screen and consult urology if patient continues to have urinary retention and Larkin cannot be placed in ER. 5. Hyperglycemia of 344 mg/dL; indicating uncontrolled DM-2 present on admission compounding #1 - #4 - ADA diet. FSBS q. AC/HS plus SSI. Hold metformin. Check HgbA1c to objectively evaluate quality of diabetic control. 6. History of multiple CVA's with hemorrhagic conversion after TNK; with subsequent facial droop, dysarthria, dysphagia and Right-sided weakness with chronic debility on BASA daily adding to the medical complexity of #1 - #5 - 7. Parkinson's disease; on carbidopa-levodopa TID adding to the burden of disease outlined from #1 - #6 - Maintain current treatment. 8. History of DVT (2021); s/p IVC filter on apixaban - Hold apixaban in light of #4. 9. History of developmental delay - Noted. 10. Essential hypertension; on metoprolol and lisinopril - 11. Hyperlipidemia; on atorvastatin - 12. Chronic diastolic CHF; with preserved LVEF - Stable. 13. GERD; on pantoprazole - Maintain PPI. 14. Chronic constipation; on sennosides q. HS - Resume sennosides q. HS as before. 15. Seasonal allergies; on loratadine - Continue current therapy. 16. OA - Give acetaminophen prn as noted in #1. 17. DVT prophylaxis - Hold apixaban in light of #4. Place SCD's. Total time: Approximately (but not less than) 75 minutes. Sepsis Attestation Sepsis Alert: Yes Sepsis Attestation: Agree w/Sepsis Date exam was performed: 10/17/24 Time exam was performed: 21:00 Possible Source of Sepsis: Genitourinary and Unknown Sepsis Organ Dysfunction Criteria Present: Creatinine > 2.0 mg/dL, UOP < 0.5 mL/kg/hour for 2 consecutive hours, Lactic Acid > 2 mmol/L and New/Unexplained change in mental status Fluid Resuscitation Fluid resuscitation indicated?: Yes Fluid Resuscitation ordered: 30 ml/kg fluid bolus ordered Amount of fluid ordered: 2 Sepsis Note Date exam was performed: 10/18/24 Time exam was performed: 01:00 Sepsis Attestation: Sepsis re-evaluation was performed Response to fluids: Fluid responsive hypotension Charges/Coding Visit Charges Inpatient E&M: 18377 Init Hosp L3
[2024-10-17] MEDS: 0.9% Normal Saline (1000mL) 1,000 ML 250 ML IV (20:24)
[2024-10-17 20:25] LABS: Troponin T High Sensitivity 64 ng/L (<=22)
[2024-10-17 21:16] LABS: Troponin T High Sens 2 HR 69 ng/L (<=22)
--- OUTSIDE RECORDS SUMMARY | 2024-10-17 21:50 | XMS RPT_ITS | CCD ---
Author Organization [facility] Care Team Providers Care Sales Office Administrator Name Role Phone Unavailable Primary Care Provider Unavailabby Manley Jr., MD, William J Unavailable Cruzito Fraser MD Primary Care Provider Cruzito Fraser MD Primary Care Provider DO Madhavi Chaudhry Primary Care Provider Dr. Javon Vazquez Attending Provider MONTEZ Turner Referring Provider CRUZITO FRASER Primary Care Unavailable VITA COLIN Attending Unavailable JESE MANLEY JR Referring Unavailable DO Madhavi Chaudhry Primary Care Provider [phone] Dr. Cristhian Carlos Emergency Provider Dr. Jerod Cavazos Admit Provider [phone] Jerod Cavazos Attending Provider [phone] Dr. Jerod Cavazos Other Provider [phone] Moriah Jones Attending Provider Unavailable Primary Care Provider UnavailDO Madhavi Brooke Primary Care Provider Dr. Cristhian Carlos Emergency Provider Dr. Jerod Cavazos Admit Provider Dr. Jerod Cavazos Attending Provider Dr. Jerod Cavazos Other Provider Dr. Moriah Jones Attending Provider Dr. Moriah Jones Referring Provider Neri, Dr. Connie Lawson Admit Provider Neri, Dr. Connie Lawson Attending Provider Neri, Dr. Connie Lawson Other Provider Cruzito Fraser MD Primary Care Provider CATHLEEN GOEL Attending Unavailable FALLON STEINER Referring Unavailable PENELOPE, CRUZITO Schulz Primary Care Unavailable CATHLEEN GOEL Attending Unavailable PENELOPE, CRUZITO Schulz Primary Care Unavailable Cruzito Fraser MD Primary Care Provider Joel, Chalon Primary Care Unavailable Joel, Tracie Attending Unavailable Madhavi Chaudhry Primary Care Unavailable FALLON STEINER Attending Unavailable FALLON STEINER Referring Unavailable Madhavi Chaudhry Referring Unavailable Roof SHOW HOST OR HOSTESS, Iain Nelson Attending Unavailable Joel, Chalon Primary Care Unavailable Roof SHOW HOST OR HOSTESS, Iain Nelson Attending Unavailable Joel, Chalon Primary Care Unavailable Joel, Tracie Referring Unavailable Fabien Leal Attending Unavailable Fabien Leal Referring Unavailable Joel, Chalon Primary Care Unavailable Joel, Tracie Attending Unavailable Joel, Tracie Referring Unavailable Joel, Chalon Primary Care Unavailable FALLON STEINER Attending Unavailable FALLON STEINER Referring Unavailable Joel, Chalon Primary Care Unavailable Joel COTTON, Tracie Primary Care Provider Tracie Maldonado MD Attending Provider Tracie Maldonado MD Referring Provider FALLON NUÑEZ Attending Provider FALLON NUÑEZ Referring Provider Madhavi Chaudhry DO Referring Provider Roof SHOW HOST OR HOSTESS-C, Iain Nelson Attending Provider Elvis DOW, Dr. Conn Attending Provider Elvis DPJackeline, Dr. Conn Referring Provider Cruzito Fraser MD Primary Care Provider Tracie Maldonado MD Primary Care Provider KANG ROACH Attending Unavailable JESE MANLEY JR Referring Unavailable JOEL, CHALON Primary Care Unavailable JESE MANLEY JR Attending Unavailable FALLON STEINER Referring Unavailable CRUZITO FRASER Primary Care Unavailable FALLON STEINER Attending Unavailable CRUZITO FRASER Primary Care Unavailable JESE MANLEY JR Attending Unavailable JESE MANLEY JR Referring Unavailable CRUZITO FRASER Primary Care Unavailable CRUZITO HART Attending Unavailable CRUZITO HART Referring Unavailable CRUZITO FRASER Primary Care Unavailable CRUZITO HART Referring Unavailable TRACIE MALDONADO Primary Care Unavailable CRUZITO HART Attending Unavailable TRACIE MALDONADO Primary Care Unavailable KANG ROACH Attending Unavailable JESE MANLEY JR Referring Unavailable CRUZITO FRASER Primary Care Unavailable Medications Current Medications Medication Drug Class(es) Dates Sig (Normalized) Sig (Original) alpha lipoic acid (1 source) Start: 08-20-2021 take 300 mg by mouth once daily alpha lipoic acid Active 300 MG SL/PO DAILY August 20, 2021 12:00am apixaban 5 mg oral tablet (20 sources) Factor Xa Inhibitor Start: 09-06-2024 take 1 tablet by mouth twice daily ELIQUIS 5 mg tab(s) TAKE 1 TABLET BY MOUTH TWICE A DAY 60 tablet 5 09/06/2024 Active Start: 09-25-2023 End: 09-06-2024 take 1 tablet by mouth twice daily ELIQUIS 5 mg tab(s) TAKE 1 TABLET BY MOUTH TWICE A DAY 60 tablet 5 03/13/2024 09/06/2024 Discontinued aspirin 81 mg chewable tablet (20 sources) Platelet Aggregation Inhibitor, Nonsteroidal Anti-inflammatory Drug Start: 11-09-2023 take 1 tablet by mouth once daily Aspirin 81 mg tablet,chewable Active 81 mg PO daily November 09, 2023 12:00am Start: 06-15-2021 End: 11-09-2023 take 1 tablet by mouth once daily aspirin 81 mg tablet Discontinued 81 mg SL/PO DAILY June 15, 2021 12:00am November 09, 2023 1:42pm Start: 04-08-2021 End: 07-17-2023 take 1 tablet by mouth once daily aspirin 81 mg chewable tablet 1 tablet by ORAL/FEEDING TUBE route once daily. 0 04/08/2021 07/17/2023 Discontinued Start: 04-08-2021 take 1 tablet by nancy th once daily aspirin 81 mg chewable tablet 1 tablet by ORAL/FEEDING TUBE route once daily. 0 04/08/2021 Active Comment on above: 1 tablet by ORAL/FEE DING TUBE route once daily. atorvastatin 40 mg oral tablet (20 sources) HMG-CoA Reductase Inhibitor Start: 06-11-19 End: 05-30-19 take 1 tablet by mouth once daily at bedtime atorvastatin (LIPITOR) 40 mg tablet 1 TABLET BY ORAL/FEEDING TUBE ROUTE DAILY AT BEDTIME. 90 tablet 3 05/29/2022 Active Start: 06-10-2021 End: 12-05-2022 take 1 tablet by mouth at bedtime atorvastatin 40 mg tablet Discontinued 40 mg SL/PO AT BEDTIME June 15, 2021 12:00am December 05, 2022 11:52am Start: 04-07-2021 take 1 tablet by nancy th once daily at bedtime atorvastatin (LIPITOR) 40 mg tablet 1 tablet by ORAL/FEEDING TUBE route daily at bedtime. 0 04/07/2021 Active Comment on above: 1 tablet by ORAL/FEE DING TUBE route daily at bedtime. carbidopa 25 mg / levodopa 100 mg oral tablet (20 sources) Aromatic Amino Acid Decarboxylation Inhibitor, Aromatic Amino Acid Start: 11-09-19 End: 07-13-19 25 take 2 tablets by mouth three times daily carbidopa-levodopa (SINEMET 25-100) 25-100 mg per tablet Indications: Parkinsonism, unspecified Parkinsonism type (HCC) TAKE 2 TABLETs BY MOUTH THREE TIMES DAILY (AT 8AM, Noon AND 5PM) 540 tablet 1 07/12/2024 Active Start: 10-22-2023 End: 11-09-2023 Carbidopa-Levodopa (Sinemet) 10-100 mg tablet Discontinued 1 {tbl} PO THREE TIMES A DAY October 22, 2023 12:00am November 09, 2023 1:45pm Start: 10-20-2023 End: 11-15-2023 carbidopa-levodopa (SINEMET) 25-100 mg per tablet Indications: Parkinsonism, unspecified Parkinsonism type (HCC) Take 1 tablet at 9AM, 1PM and 5PM. 90 tablet 2 10/20/2023 11/15/2023 Discontinued cephalexin 500 mg oral capsule (1 source) Cephalosporin Antibacterial Start: 10-13-2021 take 500 mg by mouth every twelve hours Cephalexin Active 500 MG PO EVERY 12 HOURS October 13, 2021 12:00am glipiZIDE (1 source) Sulfonylurea Start: 06-15-2021 take 5 tablets by mouth once daily glipizide Active 5 TAB SL/PO DAILY June 15, 2021 12:00am ipratropium bromide 0.021 mg/actuat metered dose nasal spray (20 sources) Anticholinergic Start: 11-09-2023 take 2 spray(s) nasal route three times daily as needed for congestion Ipratropium [place] 21 mcg (0.03 %) spray,non-aeroso l Active 2 NMA INTRANASAL THREE TIMES A DAY as needed for nasal congestion November 09, 2023 1:44pm 2 sprays each nostril twice a day as need for allergies. Start: 12-05-2022 End: 11-09-2023 take 2 spray(s) nasal route twice daily Ipratropium [place] 21 mcg (0.03 %) spray,non-aerosol Discontinued 2 NMA INTRANASAL TWICE A DAY December 05, 2022 12:00am November 09, 2023 1:45pm 2 sprays each nostril twice a day as need for allergies. Ipratropium Brom jane (ATROVENT) 21 mcg (0.03 %) nasal spray Use 1 [place] in the nose three times a day as needed. Active lisinopril 2.5 mg oral tablet (20 sources) Angiotensin Converting Enzyme Inhibitor Start: 06-10-2021 End: 12-05-2022 take 1 tablet by mouth once daily lisinopril 2.5 mg tablet Take 1 tablet by mouth once daily. 90 tablet 3 06/10/2021 Active Start: 04-08-2021 take 1 tablet by nancy th once daily lisinopril 2.5 mg tablet Take 1 tablet by mouth once daily. 0 04/08/2021 Active Comment on above: Take 1 tablet by nancy th once daily. loratadine 10 mg oral tablet (20 sources) Start: 11-09-2021 End: 12-05-2022 take 1 tablet by mouth once daily loratadine (CLARITIN) 10 mg tablet Take 10 mg by mouth once daily. 11/09/2021 Active Comment on above: Take by mouth. melatonin 5 mg oral tablet (3 sources) Start: 06-15-2021 take 5 mg by mouth at bedtime melatonin Active 5 MG SL/PO AT BEDTIME June 15, 2021 12:00am 24 hr metoprolol succinate 25 mg extended release oral tablet (20 sources) beta-Adrenergic Erika Start: 06-15-2021 End: 12-05-2022 take 1 tablet by mouth once daily metoprolol succinate 25 mg tablet Discontinued 25 mg SL/PO DAILY June 15, 2021 12:00am December 05, 2022 11:55am Start: 06-10-2021 End: 07-08-2022 take 1 tablet by mouth once daily metoprolol succinate ER (TOPROL XL) 25 mg 24 hr tablet TAKE 1 TABLET BY MOUTH EVERY DAY 30 tablet 1 07/08/2022 Active Start: 04-08-2021 take 1 tablet by nancy th once daily metoprolol succinate ER (TOPROL XL) 25 mg 24 hr tablet Take 1 tablet by mouth once daily. 0 04/08/2021 Active Comment on above: Take 1 tablet by nancy th once daily. TAKE 1 TABLET BY NANCY TH EVERY DAY Multivitamin Capsule (1 source) Start: 12-26-2021 Multivitamin Capsule Active 1 NMA PO DAILY December 26, 2021 1:00am Multivitamin preparation (7 sources) Start: 12-26-2021 take 1 capsule by mouth once daily Multivitamin Active 1 CAP PO DAILY December 26, 2021 12:00am Start: 12-26-2021 take 1 capsule by mo uth once daily Multivitamin Active 1 CAP PO DAILY December 26, 2021 1:00am Start: 12-26-2021 Multivitamin A ctive CAP December 26, 2021 1:00am Start: 12-26-2021 Multivitamin A ctive CAP December 26, 2021 12:00am multivitamin tablet (20 sources) take 1 tablet by nancy th once daily multivitamin tablet Take 1 tablet by mouth once daily. Active take 1 tablet by mouth once ross y multivitamin tablet Take 1 tablet by mouth once daily. 0 Active pantoprazole 20 mg delayed release oral tablet (20 sources) Proton Pump Inhibitor Start: 03-02-2023 take 1 tablet by mouth once daily pantoprazole DR (PROTONIX) 20 mg tablet Take 1 tablet by mouth once daily. 03/02/2023 Active Start: 12-05-2022 End: 05-23-2023 take 2 tablets by mouth once daily Pantoprazole 20 mg Tablet,Delayed Release (Dr/Ec) Discontinued 40 mg PO DAILY December 05, 2022 12:00am May 23, 2023 11:06pm Start: 12-05-2022 take 40 mg by mouth once daily Pantoprazole Active 40 MG PO DAILY December 04, 2022 11:00pm Comment on above: Take 1 tablet by nancy th every afternoon. perflutren lipid microspheres 1.3 mL in NaCl (PF) 0.9% 10 mL injection (DEFINITY) (17 sources) Start: End: perflutren lipid microspheres 1.3 mL in NaCl (PF) 0.9% 10 mL injection ([employer] IncITY) SENNA-DOCUSATE SODIUM ORAL (20 sources) Start: take 1 tablet by mouth every other day as needed SENNA-DOCUSATE SODIUM ORAL Take one tablet by mouth every other day as needed. 06/15/2021 Active Start: 06-15-2021 take 1 tablet by nancy th every other day as needed SENNA-DOCUSATE SODIUM ORAL Take one tablet by mouth every other day as needed. 0 06/15/2021 Active Start: 06-15-2021 SENNA-DOCUSATE SODIUM ORAL Take by mouth. 0 06/15/2021 Active Comment on above: Take by mouth. Sennosides (Senna Lax) 8.6 mg tablet (1 source) Start: 01-20-2023 take 1 tablet by mouth at bedtime Sennosides (Senna Lax) 8.6 mg tablet Active 8.6 mg PO AT BEDTIME January 20, 2023 1:00am Completed/Discontinued Medications Medication Drug Class(es) Dates Sig (Normalized) Sig (Original) clopidogrel 75 mg oral tablet (20 sources) [id number] Platelet Inhibitor Start: 11-23-2022 End: 11-09-2023 take 1 tablet by mouth once daily clopidogrel (PLAVIX) 75 mg tablet Take 75 mg by mouth once daily. 04/16/2023 09/25/2023 Discontinued 3 ml insulin glargine 100 unt/ml pen injector (20 sources) Insulin Analog Start: 04-07-2021 End: 07-17-2023 inject 10 [IU] by subcutaneous injection once daily at bedtime insulin glargine (LANTUS SOLOSTAR, BASAGLAR KWIKPEN) 100 unit/mL (3 mL) Inject 10 Units subcutaneously daily at bedtime. 0 04/07/2021 07/17/2023 Discontinued Start: 04-07-2021 inject 10 [IU] by weller bcutaneous injection once daily at bedtime insulin glargine (LANTUS SOLOSTAR, BASAGLAR KWIKPEN) 100 unit/mL (3 mL) Inject 10 Units subcutaneously daily at bedtime. 0 04/07/2021 Active Comment on above: Inject 10 Units subc utaneously daily at bedtime. 3 ml insulin lispro 100 unt/ml pen injector (20 sources) Insulin Analog Start: 2021 End: 2023 inject 3 [IU] by subcutaneous injection at mealtime insulin lispro (HUMALOG KWIKPEN) 100 unit/mL Inject 3 Units subcutaneously w MEALS. 0 04/07/2021 07/17/2023 Discontinued Comment on above: Inject 3 Units subcu taneously w MEALS. insulin lispro (HUMALOG KWIKPEN) 100 unit/mL (6 sources) Start: 2021 inject 3 [IU] by subcutaneous injection at mealtime insulin lispro (HUMALOG KWIKPEN) 100 unit/mL Inject 3 Units subcutaneously w MEALS. 0 04/07/2021 Active Comment on above: Inject 3 Units subcu taneously w MEALS. metFORMIN hydrochloride 500 mg oral tablet (20 sources) Biguanide Start: 2021 End: 2022 take 2 tablets by mouth twice daily metformin 500 mg tablet Discontinued 1000 mg SL/PO TWICE A DAY June 15, 2021 12:00am December 05, 2022 11:55am Start: 06-15-2021 End: 12-05-2022 take 1000 mg by mouth twice daily metformin Discontinued 1000 MG SL/PO TWICE A DAY June 14, 2021 11:00pm December 05, 2022 10:55am Start: 03-15-2021 take 1 tablet by nancy th once daily metFORMIN (GLUCOPHAGE) 500 mg tablet Take 500 mg by mouth once daily. 03/15/2021 Active Start: 03-15-2021 End: 05-23-2023 take 1 tablet by mouth twice daily at mealtime Metformin 500 mg Tablet Discontinued 500 mg PO TWICE DAILY WITH MEALS 60 December 05, 2022 12:00am May 23, 2023 11:06pm Comment on above: TAKE 1 TAB TWICE BOB LY FOR 2 WEEKS, THEN TAKE 2 TABS TWICE DAILY senna-docusate sodium (10 sources) Start: 06-15-2021 End: 11-24-2022 take 2 tablets by mouth once daily senna-docusate sodium Discontinued 8.6 MG SL/PO DAILY June 14, 2021 11:00pm November 24, 2022 1:15pm 2 tabs daily Start: 06-15-2021 take 2 tablets by mo uth once daily senna-docusate sodium Active 8.6 MG SL/PO DAILY June 14, 2021 11:00pm 2 tabs daily Start: 06-15-2021 take 2 tablets by mo uth once daily senna-docusate sodium Active 8.6 MG SL/PO DAILY June 15, 2021 12:00am 2 tabs daily senna-docusate sodium 8.6 mg tablet (1 source) Start: 06-15-2021 End: 11-24-2022 take 2 tablets by mouth once daily senna-docusate sodium 8.6 mg tablet Discontinued 8.6 mg SL/PO DAILY June 15, 2021 12:00am November 24, 2022 2:15pm 2 tabs daily 125 ml sodium chloride 9 mg/ml prefilled syringe (2 sources) Start: 12-17-2021 End: 03-18-2023 sodium chloride 0.9 % (flush) 10 mL (BD POSIFLUSH) Problems Active Problems Problem Classification Problem Date Documented Date Episodic/Chronic Acute cerebrovascular disease (20 sources) Cerebrovascular accident; Translations: [Cerebral infarction, unspecified] Onset: 2 Resolved: 4 04-01-2021 Chronic Comment on above: 11/22/22 - R frontot emporal ischemic Congestive heart failure; nonhypertensive (1 source) Diastolic heart failure; Translations: [Unspecified diastolic (congestive) heart failure] 01-20-2023 Chronic Deficiency and other anemia (3 sources) Normocytic normochromic anemia; Translations: [Anemia, unspecified] 12-06-2022 Episodic Comment on above: New since April Developmental disorders (20 sources) Cognitive developmental delay; Translations: [Developmental disorder of scholastic skills, unspecified] Onset: 4 04-18-2023 Chronic Diabetes mellitus without complication (20 sources) Diabetes mellitus; Translations: [Type 2 diabetes mellitus without complications] Onset: 2 04-01-2021 Chronic Essential hypertension (2 sources) Essential hypertension; Translations: [Essential (primary) hypertension] 02-29-2024 Chronic Fluid and electrolyte disorders (5 sources) Dehydration; Translations: [Dehydration] 12-06-2022 Episodic Comment on above: Creatinine at presen tation to the emergency room was elevated at 1.35 with a BUN of 29. Late effects of cerebrovascular disease (5 sources) Aphasia as late effect of cerebrovascular accident; Translations: [Aphasia following cerebral infarction] Onset: 5 Chronic Malaise and fatigue (5 sources) Asthenia; Translations: [Other malaise] 12-13-2022 Episodic Nonspecific chest pain (10 sources) Chest pain; Translations: [Chest pain, unspecified] 10-21-2021 Episodic Other circulatory disease (2 sources) Inferior vena cava filter in situ; Translations: [Presence of other vascular implants and grafts] 08-07-2023 Chronic Other circulatory disease (1 source) Other specified peripheral vascular diseases; Translations: [Other specified peripheral vascular diseases] Onset: 5 Chronic Other connective tissue disease (3 sources) Weakness of face muscles; Translations: [Facial weakness] 12-13-2022 Episodic Comment on above: left, mild, due to a cute CVA Other connective tissue disease (1 source) Pain in finger of left hand; Translations: [Pain in left finger(s)] 12-06-2023 Episodic Other gastrointestinal disorders (3 sources) Occult blood in stools; Translations: [Other fecal abnormalities] 12-06-2022 Episodic Other gastrointestinal disorders (2 sources) Other fecal abnormalities; Translations: [Nonspecific abnormal findings in stool contents] 12-05-2022 Episodic Other lower respiratory disease (3 sources) Dyspnea; Translations: [Shortness of breath] Episodic Other nervous system disorders (1 source) Irregular sleep-wake pattern; Translations: [Circadian rhythm sleep disorder, irregular sleep wake type] 07-12-2024 Chronic Other nervous system disorders (1 source) Circadian rhythm sleep disorder, irregular sleep wake type; Translations: [Irregular sleep-wake rhythm] Onset: 5 Chronic Other nervous system disorders (4 sources) Paresthesia; Translations: [Paresthesia of skin] 11-22-2022 Episodic Other nervous system disorders (4 sources) Dysarthria; Translations: [Dysarthria and anarthria] 11-22-2022 Episodic Other nervous system disorders (1 source) Dysarthria and anarthria; Translations: [Dysarthria] 11-24-2022 Episodic Other nervous system disorders (5 sources) Paresthesia of skin; Translations: [Disturbance of skin sensation] 11-24-2022 Episodic Other nervous system disorders (5 sources) Other symptoms and signs involving cognitive functions and awareness; Translations: [Cognitive change] 12-06-2022 Episodic Comment on above: Cognition has declin ed since he last went to [facility] for ST. Other nervous system disorders (8 sources) Abnormal gait; Translations: [Unspecified abnormalities of gait and mobility] Onset: 5 07-12-2024 Episodic Other nervous system disorders (1 source) Unspecified abnormalities of gait and mobility; Translations: [Abnormality of gait] Onset: 5 Episodic Other screening for suspected conditions (not mental disorders or infectious disease) (4 sources) Measurement finding above reference range; Translations: [Abnormal coagulation profile] Onset: 5 09-12-2023 Episodic Karla-; endo-; and myocarditis; cardiomyopathy (except that caused by tuberculosis or sexually transmitted disease) (20 sources) Cardiomyopathy; Translations: [Cardiomyopathy, unspecified] Onset: 2 04-03-2021 Chronic Phlebitis; thrombophlebitis and thromboembolism (2 sources) 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; Translations: [Chronic embolism and thrombosis of right femoral vein] 08-07-2023 Chronic Phlebitis; thrombophlebitis and thromboembolism (20 sources) Deep venous thrombosis of lower extremity; Translations: [Acute embolism and thrombosis of unspecified deep veins of unspecified lower extremity] Onset: 2 04-02-2021 Episodic Residual codes; unclassified (3 sources) History of neurodevelopmental disorder; Translations: [Personal history of other specified conditions] 12-13-2022 Episodic Unclassified (13 sources) Parkinsonism; Translations: [Parkinsonism, unspecified Parkinsonism type (HCC)] Onset: 10-20-2023 Chronic Unclassified (1 source) Parkinsonism, unspecified Parkinsonism type (HCC); Translations: [Parkinsonism, unspecified Parkinsonism type (HCC)] Onset: Urinary tract infections (10 sources) Acute urinary tract infection; Translations: [Urinary tract infection, site not specified] 10-21-2021 Episodic Past or Other Problems Problem Classification Problem Date Documented Da te Episodic/Chronic Deficiency and other anemia (3 sources) Anemia, unspecified; Translations: [Anemia, unspecified] Onset: 07-31-2023 12-05-2022 Episodic Other connective tissue disease (3 sources) Other symptoms and signs involving the musculoskeletal system; Translations: [Other musculoskeletal symptoms referable to limbs] Onset: 12-06-2023 04-18-2023 Episodic Other connective tissue disease (1 source) Pain in left finger(s); Translations: [Pain in finger of left hand] Onset: 12-06-2023 Episodic Other gastrointestinal disorders (20 sources) Dysphagia; Translations: [Dysphagia, unspecified] Onset: 04-02-2021 04-02-2021 Episodic Spondylosis; intervertebral disc disorders; other back problems (2 sources) Neck pain; Translations: [Cervicalgia] Onset: 12-06-2023 12-06-2023 Episodic Results Test Name Value Interpretation Reference Range Facility [facility] 09-16-2024 [facility] OT/PT/Speech Visit (PTWS) -------- GUSTAVO PATTON ([id number]) 1950 M Date Time Provider Department 09/16/24 10:45 AM KANG ROACH PTWS Date Time Provider Department [place] 09/16/2024 10:45 AM [id number], SEAN PTWS Yeny Dawkins Reason for Visit: PT Discharge [752] Primary Visit Diagnosis:Abnormality of gait [R26.9] Other Visit Diagnosis:Parkinsonism, unspecified Parkinsonism type (HCC) [G20.C] Allergies As of Date: 09/16/2024 (No Known Allergies) Date Reviewed: 08/06/2024 Reviewed by: Leighann Montalvo Ma, MA - Fully Assessed Prescriptions as of 09/16/2024 - ELIQUIS 5 mg tab(s) TAKE 1 TABLET BY MOUTH TWICE A DAY - Aspirin 81 mg tab Take 81 mg by mouth once daily. - carbidopa-levodopa (SINEMET 25-100) 25-100 mg per tablet TAKE 2 TABLETs BY MOUTH THREE TIMES DAILY (AT 8AM, Noon AND 5PM) - multivitamin tablet Take 1 tablet by mouth once daily. - Ipratropium [place] (ATROVENT) 21 mcg (0.03 %) nasal spray Use 1 [place] in the nose three times a day as needed. - SENNA-DOCUSATE SODIUM ORAL Take one tablet by mouth every other day as needed. - loratadine (CLARITIN) 10 mg tablet Take 10 mg by mouth once daily. - pantoprazole DR (PROTONIX) 20 mg tablet Take 1 tablet by mouth once daily. - metoprolol succinate ER (TOPROL XL) 25 mg 24 hr tablet TAKE 1 TABLET BY MOUTH EVERY DAY - atorvastatin (LIPITOR) 40 mg tablet 1 TABLET BY ORAL/FEEDING TUBE ROUTE DAILY AT BEDTIME. - lisinopril 2.5 mg tablet Take 1 tablet by mouth once daily. - metFORMIN (GLUCOPHAGE) 500 mg tablet Take 500 mg by mouth once daily. Director Of Outside Sales: Therapy (PT/OT/Speech/Resp) ID: [id number] 09/16/2024 11:05 AM Author: KANG ROACH Signed by KANG ROACH PT on 09/16/2024 at 11:05 AM Document text: Program_ID:[id number] Access Code: [email or web address] URL: [email or web address]/ Date: 09-16-2024 Prepared By: Kang Roach Program Notes Exercises - Sit to Stand with Arms Crossed - 1 x daily - 7 x weekly - 3 sets - 10 reps - Sidelying Hip Abduction - 1 x daily - 7 x weekly - 3 sets - 10 reps - Sidelying Bent Knee Hip Flexion - 1 x daily - 7 x weekly - 3 sets - 10 reps - Sidelying Hip Circles - 1 x daily - 7 x weekly - 3 sets - 10 reps - [place] - 1 x daily - 7 x weekly - 3 sets - 10 reps - Squat - 1 x daily - 7 x weekly - 3 sets - 10 reps - Step Up - 1 x daily - 7 x weekly - 3 sets - 10 reps Normal [facility] THERAPY NTon 09-16-2024 THERAPY NT HNO ID: [id number] Author: KANG ROACH PT Service: ? Author Type: Physical Therapist Type: Therapy (PT/OT/Speech/Resp) Filed: 09/16/2024 11:05 Note Text: Program_ID:[id number] Access Code: [email or web address] URL: [email or web address] [employer]/ Date: 09-16-2024 Prepared By: Kang Roach Program Notes Exercises - Sit to Stand with Arms Crossed - 1 x daily - 7 x weekly - 3 sets - 10 reps - Sidelying Hip Abduction - 1 x daily - 7 x weekly - 3 sets - 10 reps - Sidelying Bent Knee Hip Flexion - 1 x daily - 7 x weekly - 3 sets - 10 reps - Sidelying Hip Circles - 1 x daily - 7 x weekly - 3 sets - 10 reps - Marching Bridge - 1 x daily - 7 x weekly - 3 sets - 10 reps - Squat - 1 x daily - 7 x weekly - 3 sets - 10 reps - Step Up - 1 x daily - 7 x weekly - 3 sets - 10 reps Normal [facility] CNOVSPon 08-06-2024 CNOVSP Visit (SP) Office (HEMAWS) -------- GUSTAVO PATTON ([id number]) 1950 M Date Time Provider Department 08/06/24 4:00 PM CRUZITO HART HEMAWS During your visit today, we recorded the following information about you: Temperature Pulse Blood pressure Weight 97.6 degrees 83/minute 112/74 83 kg Cruzito Hart, 08/06/2024 4:26 PM Signed Hematologic problem(s): 1) H/O RLE DVT. 2) IVC filter 2021. 3) Multiple strokes in differing vascular territories. 4) Elevated factor VIII:C; normal CRP. HPI: The patient is a 73-year-old male with a past medical history as outlined below. 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 He has underlying history of hypertension, diabetes mellitus, and diastolic heart failure. 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 He was diagnosed with left MCA infarct with petechial hemorrhage, transferred to [facility]. He also had left M1 occlusion. He underwent mechanical thrombectomy of his left MCA infarct by Dr. Mohamud. He also had an echocardiogram, which revealed ejection fraction of 45%. His hospital course was complicated by chronic diastolic heart failure as well as right popliteal deep vein thrombosis. With his recent thrombectomy, he is only anticoagulated for least 6 to 8 weeks. He does have an inferior vena cava filter placed. 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 Functionally, heis requiring minimal assistance for his bed mobility and transfers, ambulates 40 feet with a wheeled walker, minimal assistance. He was now admitted to [facility] for poststroke inpatient rehabilitation therapies. IVC filter placed 04/20/2021. No procedure note indicating it was removed. 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 Left leg negative for acute DVT. Per Dr. Manley's most recent note, Patient with recurrent strokes over the past couple years, of which etiology is uncertain. He ahs multiple stroke risk factors including HTN, DM, HLD - uncertain to what extent these risk factors are controlled. However, concerning that strokes have occurred in various vascular distributions and thus, possible central embolic source. Limited follow up with me (as above) and patient is limited historian as well, making it difficult to determine cause of symptoms. Non focal neuro exam at present. I reviewed prior records as best could be given limited records available for review. Repeat ECHOs have not shown cardiac source. HOWEVER, still need to consider possible paroxysmal afib, and thus will repeat Zio monitor. Will also get new imaging of both intra and extracranial large vessels to evaluate for stenosis or LVO with pt not having such imagining during last admit (per documentation that I reviewed. Also given multiple strokes as well as DVT, patient may benefit from heme evaluation for clotting disorder. Will place consult. Was going to draw labs today but pt declined. Carotid arterial duplex ultrasound 04/2022 showed mild less than 50% stenosis of both the right and left extracranial internal carotid arteries. Patent and antegrade flow was observed in the vertebral arteries bilaterally. He was admitted again to [facility] 11/22/2022 for complaint of slurred speech and weakness. Noncontrast CT brain revealed prior infarcts in the left frontotemporal area and also the right occipital area. No acute findings. He was placed on aspirin, Plavix and beta-erika and statin drug was continued. Teleneurology recommended dual antiplatelet therapy for 3 weeks then discontinue aspirin. CTA and MRI were advised. MRI showed right frontal and right temporal acute ischemic infarcts. CTA was not done but an echocardiogram that showed an EF of 65% with no wall motion abnormalities and bubble study negative. Both atria were of normal size. He was transferred to inpatient rehab on 11/24/2022. Most recent MRI brain from [facility] 11/22/2022 demonstrated acute infarct in the right parietal lobe and old left frontal temporal infarct. CT brain with and without contrast 01/05/2023 demonstrated encephalomalacia in the left temporoparietal and frontal lobes as well as right occipital lobe. Coagulation times were normal 11/22/2022. CBC from 07/27/2023 showed a white count of 8300. Hemoglobin 13.2 g/dL and a platelet count 321,000. MCV was 94.7. Per initial office consultation here: Denies palpitations and sensations of tachycardia. Denies dizziness and orthostasis. Has history of developmental delay since (more content not included)... Normal [facility] CRP SerPl-mCncon 08-06-2024 CRP [Mass/Vol] mg/L Normal <0.9 [facility] Comment on above: Order Comment: Speci men Type: BLOOD SPECIMENOrdering Facility: [facility] Address: [address] [place] [address] Performed By: #### 1 988-5 ####[facility] [id number] [place] [address] [place] Fact VIII Act/Nor PPPon 07-0 Coagulation factor VIII activity actual/normal Coag (PPP) [Relative time] 221 % High 50-173 [facility] Comment on above: Order Comment: Specmaura husain Type: BLOOD SPECIMENOrdering Facility: [facility] Address: [address] [place] [address] Result Comment: The factor VIII clottable activity level is elevated. This can be observed during the acute phase response. Persistent elevation of factor VIII, however, has been shown to be a risk factor for venous thrombosis. Suggest rechecking the factor VIII level in 1-2 months. Performed By: #### 3 209-4 ####[facility] [id number] [address] [place] [id number] 07-30-2024 [id number] HNO ID: [id number] Author: KANG ROACH PT Service: ? Author Type: Physical Therapist Type: [id number] Filed: 07/30/2024 14:55 Note Text: [facility] Physical Therapy Plan of Care Certification Patient Name: Gustavo Patton : 1950 CC #: [id number] Date: 07/29/2024 To: Jese Manley Jr., MD From Therapist: Kang Doc, PT RE: Patient Certification/ Recertification Your review, approval and electronic signature are required in order to comply with Payor: MEDICARE / Plan: MEDICARE A AND B / Product Type: Medicare / regulations. The identified Physical Therapy PLAN OF CARE for the patient is as follows: G20.C Parkinsonism, unspecified Parkinsonism type (HCC) (primary encounter diagnosis) R26.9 Abnormality of gait PLAN OF CARE: Assessment: Gustavo Patton presents with chief complaint of altered gait and balance issues that interferes with rising from a chair, standing, walking, heavy exertion, lifting, physical activities . The patient presents with impairments in ADL's, balance, gait, independence in exercise, overall function, strength, and symptom management. PROMIS? (Patient-Reported Outcomes Measurement Information System) scores were reviewed and identified as a rehabilitation concern. Prognosis for therapy is Fair due to: clinical presentation, advanced age, chronic nature of impairments, limited tolerance to activity, limited support system . The patient will benefit from skilled therapy services to meet the goals established for this plan of care as noted below. Assessment Fall Risk : Active at risk Classification Diagnosis Grouping: Parkinson?s Disease Goals for Episode of Care: established 07/29/24 Patient will report no falls. Improve score on Timed Up and Go Test to 11 seconds to reflect decreased fall risk. Improve score on 30 Second Chair Stand to 11 repetitions to reflect decreased fall risk. Improve score on 5 times sit to stand to 12.6 seconds to reflect decrease in fall risk. Improve performance on 4 Stage Balance Test to 10 seconds in SLS to reflect decreased fall risk. [place] in home exercise program including cardiovascular exercise. Patient Goals: Get stronger, walk better Time Frame for Goals and Treatment : 09/29/24 Planned Interventions, Frequency, and Duration: Current Frequency: 1x/week Duration: 8 weeks Total Number of Visits Planned: 8 Planned Treatment Interventions: Therapeutic exercise (42192), Neuromuscular re-education (95355), Manual therapy (38923), Therapeutic activities (52179), Self-half-way management (58126), Patient/Family/Caregiver Education, Body Mechanics Training PLAN FOR NEXT VISIT: Assess compliance to HEP while on vacation Patient demonstrates good understanding of plan of care and treatment. The above goals and plan of care were discussed and agreed upon by patient/family. For further details regarding this patient refer to the Physical Therapy electronically documented visit dated 07/29/2024. Provider Attestation I have reviewed the treatment plan for Gustavo Patton, [facility]# [id number] for the period of 07/29/24 -- 10/29/24, established on 07/29/2024. Signature certifies the need for therapy services. Normal [facility] CNTHERAPYon 07-29-2024 CNTHERAPY OT/PT/Speech Visit (PTWS) -------- GUSTAVO PATTON ([id number]) 1950 M Date Time Provider Department 07/29/24 2:00 PM KANG ROACH PTBOOM Date Time Provider Department Center 07/29/2024 2:00 PM [id number], SEAN PTWS Yeny Dawkins Reason for Visit: PT Eval [747] Primary Visit Diagnosis:Parkinsonism, unspecified Parkinsonism type (HCC) [G20.C] Other Visit Diagnosis:Abnormality of gait [R26.9] Allergies As of Date: 07/29/2024 (No Known Allergies) Date Reviewed: 07/12/2024 Reviewed by: Jese Manley Jr., MD - Fully Assessed Prescriptions as of 07/30/2024 - Aspirin 81 mg tab Take 81 mg by mouth once daily. - carbidopa-levodopa (SINEMET 25-100) 25-100 mg per tablet TAKE 2 TABLETs BY MOUTH THREE TIMES DAILY (AT 8AM, Noon AND 5PM) - ELIQUIS 5 mg tab(s) TAKE 1 TABLET BY MOUTH TWICE A DAY - multivitamin tablet Take 1 tablet by mouth once daily. - Ipratropium [place] (ATROVENT) 21 mcg (0.03 %) nasal spray Use 1 [place] in the nose three times a day as needed. - SENNA-DOCUSATE SODIUM ORAL Take one tablet by mouth every other day as needed. - loratadine (CLARITIN) 10 mg tablet Take 10 mg by mouth once daily. - pantoprazole DR (PROTONIX) 20 mg tablet Take 1 tablet by mouth once daily. - metoprolol succinate ER (TOPROL XL) 25 mg 24 hr tablet TAKE 1 TABLET BY MOUTH EVERY DAY - atorvastatin (LIPITOR) 40 mg tablet 1 TABLET BY ORAL/FEEDING TUBE ROUTE DAILY AT BEDTIME. - lisinopril 2.5 mg tablet Take 1 tablet by mouth once daily. - metFORMIN (GLUCOPHAGE) 500 mg tablet Take 500 mg by mouth once daily. Director Of Outside Sales: Addendum Therapy (PT/OT/Speech/Resp) ID: [id number] 07/29/2024 2:41 PM Author: KANG ROACH Signed by KANG ROACH PT on 07/29/2024 at 2:41 PM * * * This document replaces document [id number] * * * Document text: Program_ID:[id number] Access Code: [email or web address] URL: https://[employer]/ Date: 07-29-2024 Prepared By: Kang Roach Program Notes Exercises - Sidelying Hip Abduction - 1 x daily - 7 x weekly - 3 sets - 10 reps - Sit to Stand with Arms Crossed - 1 x daily - 7 x weekly - 3 sets - 10 reps - Active Straight Leg Raise with Quad Set - 1 x daily - 7 x weekly - 3 sets - 10 reps - Supine Bridge - 1 x daily - 7 x weekly - 3 sets - 10 reps Normal [facility] THERAPY NTon 07-29-2024 THERAPY NT HNO ID: [id number] Author: KANG ROACH PT Service: ? Author Type: Physical Therapist Type: Therapy (PT/OT/Speech/Resp) Filed: 07/29/2024 14:41 Note Text: Program_ID:[id number] Access Code: [email or web address] URL: https://[employer]/ Date: 07-29-2024 Prepared By: Kang Roach Program Notes Exercises - Sidelying Hip Abduction - 1 x daily - 7 x weekly - 3 sets - 10 reps - Sit to Stand with Arms Crossed - 1 x daily - 7 x weekly - 3 sets - 10 reps - Active Straight Leg Raise with Quad Set - 1 x daily - 7 x weekly - 3 sets - 10 reps - Supine Bridge - 1 x daily - 7 x weekly - 3 sets - 10 reps Normal [facility] CNOVon 07-12-2024 CNOV Office Visit (NEMSERGIO ) -------- GUSTAVO PATTON ([id number]) 1950 M Date Time Provider Department 07/12/24 1:00 PM JESE MANLEY JR During your visit today, we recorded the following information about you: Pulse Respiration Blood pressure Weight 97/minute 16/minute 113/72 84.8 kg Jese Manley Jr., MD 07/12/2024 1:55 PM Signed ESTABLISHED PATIENT VISIT CHIEF COMPLAINT: Follow Up HISTORY OF PRESENT ILLNESS: Gustavo Patton is a 73 year old male, with a PMH significant for and per last office visit note with me on 10/20/23: 1. Recurrent strokes (HCC) - ICD9: 434.91, ICD10: I63.9 (primary diagnosis) 2. History of DVT (deep vein thrombosis) - ICD9: V12.51, ICD10: Z86.718 3. 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 Again, now on Eliquis and ASA 81mg per recs of Dr. Hart. Afib never determined on cardiac workup, but remains of concern. Given abnormal rhythms noted on Zio monitor, would like pt to follow up with his medical engineer Dr. Dill to determine if further workup necessary. Also question if pt would benefit from loop recorded but defer to cards. Otherwise no change in meds at this time. Dr. Hart following, and patient can follow up with Dr. Fraser for annual lipid panels (on statin but may need adjusted in future based on labs). BP goal <140/90. Glucose goal <140. 4. Parkinsonism, unspecified Parkinsonism type (HCC) - ICD9: 332.0, ICD10: G20.C Patient with change in gait since time of last visit that pt and caregiver who accompanies report as a progressive and not acute change. No spine symptoms such as pain. No b/b incontinence. Gait changes suggestive of parkinsonism. Concern for primary or PD with patient not having such symptoms after last stroke to suggest vascular cause. D/w pt and care director rn dx of PD, physiology, testing, treatment and prognosis. Hesitant to start on new meds given just recently placed on Eliquis yet, also concern for fall secondary to gait change which could result in hemorrhage. Again, no falls reported by patient. In the end, with pt approval, decision made to trial Sinemet 25/100mg TID with meals or 9AM/1PM/5PM. SE and ADRs d/w pt. Encouraged exercise and will consider PT depending on response to Sinemet. Will have pt back for reevaluation in 8 weeks or sooner prn. Did see Jackeline MCCLAIN during interim on 12/06/23. Per note: 1. Parkinsonism, unspecified Parkinsonism type (HCC) - ICD9: 332.0, ICD10: G20.C (primary diagnosis) Patient started on Sinemet 25 over 100 mg 1 tablet 3 times daily due to concerns of parkinsonism. Patient presents with his wood panel inspector for follow-up after starting this medication, notes significant improvement in getting up from a seated position and this is appreciable on exam today. Does have some mild improvement in his gait overall, but still shuffling, again appreciated on exam but noted improved posture while ambulating as well as turning with 3-4 steps instead of 5. No side effects with the Sinemet, would like to continue this therapy. Discussed increasing dosage to 1.5 tablets 3 times a day and patient and wood panel inspector amenable, discussed increased risk of side effects with increasing this medication and they agree and understand. Discussed importance of physical activity, discussed physical therapy and patient amenable to this. Would like to continue at [facility] as he is called her in the past and will fax order for physical therapy over today. No falls since last appointment, discussed fall prevention with patient and wood panel inspector. 2. Recurrent strokes (HCC) - ICD9: 434.91, ICD10: I63.9 3. History of DVT (deep vein thrombosis) - ICD9: V12.51, ICD10: Z86.718 4. 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 Cerebral infarction, unspecified mechanism (HCC) - ICD9: 434.91, ICD10: I63.9 6. Cerebrovascular accident (CVA), unspecified mechanism (HCC) - ICD9: 434.91, ICD10: I63.9 7. Left arm weakness - ICD9: 729.89, ICD10: R29.898 Patient with no new neurologic symptoms. Compliant with his Eliquis and following with hematology for chronic DVT. Managing risk factors with primary care including blood pressure, cholesterol and blood sugar. No new symptoms that would warrant additional workup at this time. 8. Pain in finger of left hand - ICD9: 729.5, ICD10: M79.645 9. Cervicalgia - ICD9: 723.1, ICD10: M54.2 Patient with new onset pain in the left fifth digit, described as a stinging pain that is present all the time. No etiology for onset that he can think of. Does have decree sensation to temperature in both fifth digits on either side. Denies any out right neck pain, but discussed possible physical therapy intervention and patient is amenable to this as opposed to trying EMG. Should symptoms persist, did discuss this could be an option and patient amenabl (more content not included)... Normal [facility] Arterial study reportOrdered By: Gustavo Malik on 05-01-2024 Noninvasive arteriosclerosis study report [facility] [address] [place] [address] Lower Ext Art Exam w/o Exercis 05/01/24 1104 MR#: [id number] Acct: [id number] Name: GUSTAVO PATTON Rep #:[id number] : 1950 73 From: Gustavo Malik MD Attending Dr: Dr. Fabien Leal, DPM Status: REG CLI Ordering Dr: Fabien Leal DPM Date: 05/01/24 Location: CVS Sex: M C Admitted: Reason For Study Reason For Study: PVD Procedure A bilateral lower extremity continuous wave Doppler with analog waveform analysis,segmental pressures,and ankle brachial indexes without exercise. Left Segmental Pressures Left brachial= 138mmHg. Left posterior tibial artery = 152mmHg. Left dorsalis pedis artery = 144mmHg. Left digit = 104 mmHg. The left dorsalis pedis waveforms are triphasic. The left posterior tibialartery waveforms are triphasic. Right Segmental Pressures Right brachial= 130mmHg. Right posterior tibial artery = 151mmHg. Right dorsalispedis artery = 143mmHg. Right digit = 113 mmHg. The right dorsalis pedis waveforms are triphasic. The right posterior tibial artery waveforms are triphasic. Indices The right ankle brachial index by the dorsalis pedis is 1.04. The right ankle brachial index by the posterior tibial artery is 1.09. The right digital-brachial index is 0.82. The left ankle brachial index by the dorsalis pedis is 1.04. The left ankle brachial index by the posterior tibial artery is 1.10. The left digital-brachial index is 0.75. VL/Lower Ext Art Exam w/o Exercis Interpretation Summary Triphasic Doppler waveforms are noted at ankle level bilaterally. Pulse-volume recordings appear satisfactory at all levels bilaterally. Resting ankle-brachial indices are normal bilaterally. Digital-brachial indices are normal bilaterally. There is no evidence of significant arterial occlusive disease in the lower extremities bilaterally. Ordering Physician: Fabien Leal Referring Physician: Tracie Maldonado Performed By: Shilpi Black RVT 05/01/24 1710 Date _ Gustavo Malik MD CC: DPM Dr. Fabien Leal; Dr. Tracie Maldonado MD ~ Date Dictated: 05/01/241103 Date Transcribed: 05/01/24 1710 Online Content Coordinator: Signed [facility] Other Phone: Lower Ext Art Exam w/o Exerc ed 05-01-2024 Lower Ext Art Exam w/o Exercis [facility] [address] [place] [address] Lower Ext Art Exam w/o Exercis 05/01/24 110 MR#: [id number] Acct: [id number] Name: GUSTAVO PATTON Rep #: [id number] : 1950 73 From: Gustavo Malik MD Attending Dr: Dr. Fabien Leal, DPM Status: R EG CLI Ordering Dr: Fabien Leal DPM Date: 05/01/24 Location: [facility] Sex: M C Admitted: Reason For Study Reason For Study: PVD Procedure A bilateral lower extremity continuous wave Doppler with analog waveform analysis,segmental pressures,and ankle brachial indexes without exercise. Left Segmental Pressures Left brachial= 138mmHg. Left posterior tibial artery = 152mmHg. Left dorsalis pedis artery = 144mmHg. Left digit = 104 mmHg. The left dorsalis pedis waveforms are triphasic. The left posterior tibial artery waveforms are triphasic. Right Segmental Pressures Right brachial= 130mmHg. Right posterior tibial artery = 151mmHg. Right dorsalis pedis artery = 143mmHg. Right digit = 113 mmHg. The right dorsalis pedis waveforms are triphasic. The right posterior tibial artery waveforms are triphasic. Indices The right ankle brachial index by the dorsalis pedis is 1.04. The right ankle brachial index by the posterior tibial artery is 1.09. The right digital-brachial index is 0.82. The left ankle brachial index by the dorsalis pedis is 1.04. The left ankle brachial index by the posterior tibial artery is 1.10. The left digital-brachial index is 0.75. VL/Lower Ext Art Exam w/o Exercis Interpretation Summary Triphasic Doppler waveforms are noted at ankle level bilaterally. Pulse-volume recordings appear satisfactory at all levels bilaterally. Resting ankle-brachial indices are normal bilaterally. Digital-brachial indices are normal bilaterally. There is no evidence of significant arterial occlusive disease in the lower extremities bilaterally. Ordering Physician: Fabien Leal Referring Physician: Tracie Maldonado Performed By: Shilpi Black RVT 05/01/24 1710 Date Gustavo Malik MD CC: DPM Dr. Fabien Leal; Dr. Tracie Maldonado MD Date Dictated: 05/01/24 1104 Date Transcribed: 05/01/241709 Online Content Coordinator: Signed Normal [facility] Cardiology Visit Reporton Cardiology Visit Report [facility] [address] [place] [address] OFFICE VISIT Date of Service: 02/29/24 MR#: [id number] Acct: [id number] Name: GUSTAVO PATTON Rep #: [id number] : 1950 Provider: MONTEZ bailey Age/Sex: 73/M Location: [facility] [place] Status: Signed HPI HPI History of Present Illness Details: 73-year-old man with no previous history other than hypertension and previous cerebrovascular accident in 2021. He underwent Zio patch event monitor in August 2023 with neurologist. This showed average heart rate 82 bpm. 1 episode of ventricular tachycardia for 4 beats noted. He had 1 episode of ventricular bigeminy for 9 seconds and 1 episode of ventricular trigeminy for 7.4 seconds. He denies chest, arm, jaw, or neck discomfort. He denies palpitations. He denies bilateral lower extremity edema. He denies claudication. He denies shortness of breath with activity, shortness of breath at rest, orthopnea, or PND. He denies chronic cough. He denies significant, sudden weight gain. He denies lightheadedness, dizziness, near-syncope, or syncope. He denies blood in urine, blood in stool, or epistaxis. He denies fever with chills. He denies myalgia. He denies fatigue. His exercise level has remained stable. Intake Vital Signs 03/01/23 11:34 11/09/23 13:31 02/29/24 11:05 Height 5 ft 10 in 5 ft 10 in 5 ft 10 in Weight: 183 lb BMI 26.2 BP 127/77 H Blood Pressure Location Lt brachial Position Sitting Respiration 18 Pulse 86 Pulse Source Monitor Pulse Oximetry (%) 98 Oxygen Delivery Method room air Intake Visit Reasons: 1 Y [employer] Equipment Technician Required: No Accompanied by: Self Is patient in pain?: No Allergies No Known Allergies Allergy (Verified 02/29/24 11:06) Medications ???Medication ???Instructions ???Recorded ???Confirmed ???Type multivitamin 1 cap PO DAILY supplement 12/26/21 02/29/24 History atorvastatin 40 mg tablet 40 mg PO QHS #30 tabs 12/05/22 02/29/24 Rx lisinopril 2.5 mg tablet 2.5 mg PO DAILY #30 tabs 12/05/22 02/29/24 Rx metoprolol succinate 25 mg 25 mg PO DAILY #30 tabs 12/05/22 02/29/24 Rx tablet,extended release 24 hr loratadine 10 mg tablet (Allergy 10 mg PO DAILY 01/20/23 02/29/24 History Relief (loratadine)) sennosides 8.6 mg tablet (Senna 8.6 mg PO QHS 01/20/23 02/29/24 History Lax) metformin 500 mg tablet 500 mg PO DAILY 05/23/23 02/29/24 History pantoprazole 20 mg tablet,delayed 20 mg PO DAILY 05/23/23 02/29/24 History release apixaban 5 mg tablet (Eliquis) 5 mg PO BID 11/09/23 02/29/24 History aspirin 81 mg chewable tablet 81 mg PO QDAY 11/09/23 02/29/24 History carbidopa 25 mg-levodopa 100 mg 1 tab PO TID 11/09/23 02/29/24 History tablet ipratropium bromide 21 mcg (0.03 2 spray intranasal TID PRN nasal 11/09/23 02/29/24 History %) nasal spray congestion Have you fallen in the past year?: No PFSH Medical History Dysphagia Primary cardiomyopathy Essential (primary) hypertension Diastolic heart failure Facial droop History of developmental delay History of DVT (deep vein thrombosis) Remote history of stroke DM II (diabetes mellitus, type II), controlled Dysarthria Stroke/cerebrovascular accident Family History Father Diabetes Social History household members: none housing: apartment number of children: 0 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 pets and animals: No Smoking Status: Never smoker alcohol intake: never substance use type: does not use ROS Const Const: Negative for fatigue or weakness ENT ENT: Negative for dizziness or balance problems Cardio Chest Pain: No Palpitations: No Edema: None Muscle aches with walking: None Resp Respiratory: Negative for SOB with activity, SOB at rest or SOB orthopnea SOB lying down GI GI: Negative nausea, vomiting or heartburn : Negative for hematuria or frequent nighttime urination/ nocturia Musc Musc: Negative for muscle weakness or balance problems Skin Skin: Negative non-healing lesions or rash Neuro Neuro: Negative for dizziness, lightheadedness, near syncope, syncope or weakness Endo Endo: Negative for fatigue Allergy Allergy/Immunology: Negative for rash Cardiology Exam Const Appearance: cooperative, healthy appearing, comfortable and no acute distress Nutritional Appearance: well nourished and overweight Orientation: alert, awake and oriented x3 Head Head: normal to inspection Ears: hearing grossly normal bilaterally Nose: external nose normal Face and Sinus: face symmetric Mouth: moist mucous membranes Eyes General: appearance normal, both eye (more content not included)... Normal [facility] PT D/C Summary (1)on 024 PT D/C Summary (1) [facility] [address] [place] [address] / REHABILITATION SERVICES DISCHARGE SUMMARY MR#: [id number] Acct: [id number] Name: GUSTAVO PATTON Rep #: [id number] : 1950 73 From: Bettye GIMENEZ Referring Dr.: SARAHI SOTO Status: REG RCR Insurance: MEDICARE PART A B [facility] Discharge Summary D/C summary: It has been my pleasure to treat GUSTAVO PATTON referred by SARAHI SOTO, with the diagnosis of Parkinsons for a total of 15 visit(s). Discharge Date: 01/26/24 Please see the following information for a summary of their discharge status. Subjective Subjective: Pt reports that he is doing his exercises at home. He now has a foot problem because his veins are getting old and he is seeing the foot Dr Pain neck pain: Pain Intensity (Out of 10): 0 Overall Improvement % Improvement: 90 Objective Objective/Function: Gait walks with bigger strides than when first started PT FGA: 20 Supine to sit: pt did not want to get on the table because it is so narrow but he said that he is able to roll over in his bed at home easier than here. Goals Goal 1:: I HEP Goal Progress: Goal Met Goal 2:: Be able to go from sit to supine and supine to sit with ease Goal Progress: Progressing Goal 3:: Increase balance (FGA score was 17 on eval) Goal 4:: Walk with increase stride length and more upright posture Goal Progress: Progressing Plan Plan: DC PT to HEP D/C Information Discharge Comments: DC PT d/c sentence: If there are questions or concerns regarding this patient's physical therapy, please feel free to call me at [phone]. Thank you for the referral of this patient. Sincerely, PERNELL Fried Balance/Gait/Functional tests Balance/Special Test Scores Functional Gait Assessment Score: 20 % Disability: 33.3400 Lower Extremity Functional Score: 75 Improvement % Improvement: 90 01/26/24 1122 CC: Dr. Tracie Maldonado MD; SARAHI SOTO Signed Normal [facility] Absolute neutrophil countOrd ered By: Tracie Maldonado on 01-12-2024 Neutrophils (Bld) [#/Vol] 6.5 10*3/uL 2.0-7.7 [facility] Basophil percentageOrdered B y: Tracie Maldonado on 01-12-2024 Basophils/100 WBC (Bld) 0.8 % 0-1 [facility] CBC W/Diff, Automatedon Absolute Lymph 2.33 X10 3/uL Normal 0.83-4.51 [facility] Comment on above: Order Comment: Order Date: 01/12/24 Order Info: 0184-1 - CBCD Performed By: #### L 501.9985, L100.0100 #### [facility] [address] [place], [address] Absolute Neut 6.5 X10 3/uL Normal 2.0-7.7 [facility] Comment on above: Order Comment: Order Date: 01/12/24 Order Info: 0184-1 - CBCD Performed By: #### L 501.9985, L100.0100 #### [facility] [address] [place], [address] Basophils/100 WBC (Bld) 0.8 % Normal 0-1 [facility] Comment on above: Order Comment: Order Date: 01/12/24 Order Info: 0184-1 - CBCD Performed By: #### L 501.9985, L100.0100 #### [facility] [address] [place], [address] Eosinophils/100 WBC (Bld) 4.0 % Normal 0-5 [facility] Comment on above: Order Comment: Order Date: 01/12/24 Order Info: 0184-1 - CBCD Performed By: #### L 501.9985, L100.0100 #### [facility] [address] [place], [address] Erythrocyte distribution width (RBC) [Ratio] 12.7 % Normal 11.6-14.6 [facility] Comment on above: Order Comment: Order Date: 01/12/24 Order Info: 0184-1 - CBCD Performed By: #### L 501.9985, L100.0100 #### [facility] [address] [place], [address] Hematocrit (Bld) [Volume fraction] 42.8 % Normal 40-54 [facility] Comment on above: Order Comment: Order Date: 01/12/24 Order Info: 018- - CBCD Performed By: #### L 501.9985, L100.0100 #### [facility] [address] [place], [address] Hemoglobin (Bld) [Mass/Vol] 13.1 g/dL Normal 13.0-16.5 [facility] Comment on above: Order Comment: Order Date: 01/12/24 Order Info: 018- - CBCD Performed By: #### L 501.9985, L100.0100 #### [facility] [address] [place], [address] IG% 0.300 Normal 0.0-0.9 [facility] Comment on above: Order Comment: Order Date: 01/12/24 Order Info: 0184- - CBCD Result Comment: IG% - Immature Granulocytes (promyelocytes, myelocytes and metamyelocytes) > 1% indicates that a LEFT SHIFT is Present. Performed By: #### L 501.9985, L100.0100 #### [facility] [address] [place], [address] Lymphocytes/100 WBC (Bld) 22.8 % Normal 19-41 [facility] Comment on above: Order Comment: Order Date: 01/12/24 Order Info: 0184- - CBCD Performed By: #### L 501.9985, L100.0100 #### [facility] [address] [place], [address] MCH (RBC) [Entitic mass] 29.1 pg Normal 27.0-32.0 [facility] Comment on above: Order Comment: Order Date: 01/12/24 Order Info: 0184-1 - CBCD Performed By: #### L 501.9985, L100.0100 #### [facility] [address] [place], [address] MCHC (RBC) [Mass/Vol] 30.6 g/dL Low 32-36 [facility] Comment on above: Order Comment: Order Date: 01/12/24 Order Info: 0184-1 - CBCD Performed By: #### L 501.9985, L100.0100 #### [facility] [address] [place], [address] MCV (RBC) [Entitic vol] 95.1 fL High 80-94 [facility] Comment on above: Order Comment: Order Date: 01/12/24 Order Info: 018- - CBCD Performed By: #### L 501.9985, L100.0100 #### [facility] [address] [place], [address] Monocytes/100 WBC (Bld) 8.5 % Normal 0-10 [facility] Comment on above: Order Comment: Order Date: 01/12/24 Order Info: 018-1 - CBCD Performed By: #### L 501.9985, L100.0100 #### [facility] [address] [place], [address] Neutrophils/100 WBC (Bld) 63.6 % Normal 47-70 [facility] Comment on above: Order Comment: Order Date: 01/12/24 Order Info: 0184-1 - CBCD Performed By: #### L 501.9985, L100.0100 #### [facility] [address] [place], [address] Nucleated RBC (Bld) [#/Vol] 0 10*3/uL Normal 0-5 [facility] Comment on above: Order Comment: Order Date: 01/12/24 Order Info: 0184-1 - CBCD Performed By: #### L 501.9985, L100.0100 #### [facility] [address] [place], [address] Platelet mean volume (Bld) [Entitic vol] 12.0 fL Normal 6.2-12.0 [facility] Comment on above: Order Comment: Order Date: 01/12/24 Order Info: 0184-1 - CBCD Performed By: #### L 501.9985, L100.0100 #### [facility] [address] [place], [address] Platelets (Bld) [#/Vol] 311 10*3/uL Normal 150-450 [facility] Comment on above: Order Comment: Order Date: 01/12/24 Order Info: 0184-1 - CBCD Performed By: #### L 501.9985, L100.0100 #### [facility] [address] [place], [address] RBC (Bld) [#/Vol] 4.50 10*6/uL Low 4.6-6.2 [facility] Comment on above: Order Comment: Order Date: 01/12/24 Order Info: 0184-1 - CBCD Performed By: #### L 501.9985, L100.0100 #### [facility] [address] [place], [address] RDW SD 43.9 fl Normal 35.1-43.9 [facility] Comment on above: Order Comment: Order Date: 01/12/24 Order Info: 0184-1 - CBCD Performed By: #### L 501.9985, L100.0100 #### [facility] [address] [place], [address] WBC (Bld) [#/Vol] 10.2 10*3/uL Normal 4.4-11.0 [facility] Comment on above: Order Comment: Order Date: 01/12/24 Order Info: 0184-1 - CBCD Performed By: #### L 501.9985, L100.0100 #### [facility] [address] [place], [place], [address] Eosinophil percentageOrdered By: [facility] Maldon[facility] on 01-12-2024 Eosinophils/100 WBC (Bld) 4.0 % 0-5 [facility] Erythrocyte distribution wid th ratioOrdered By: [facility] on 01-12-2024 Erythrocyte distribution width (RBC) [Ratio] 12.7 % 11.6-14.6 [facility] Erythrocyte distribution wid th standard deviationOrdered By: [facility] on 01-12-2024 Erythrocyte distribution width (RBC) [Entitic vol] 43.9 fL 35.1-43.9 [facility] Hematocrit Auto (Bld) [Volum e fraction]Ordered By: [facility] Joel on 01-12-2024 Hematocrit (Bld) [Volume fraction] 42.8 % 40-54 [facility] Hemoglobin A1con 01-12-2024 HbA1c (Bld) [Mass fraction] 7.6 % High 3.8-5.6 [facility] Comment on above: Order Comment: Order Date: 01/12/24 Order Info: 4548-4 - A1C Result Comment: Norm al < 5.7 % Prediabetic 5.7 - 6.4 % Diabetic >or= 6.5 % Please note range changes. Performed By: #### L 501.9985, L100.0100 #### [facility] [address] [place], [place], [address] Hemoglobin A1c percentageOrd ered By: Silvanaalberto Maldonado on 01-12-2024 HbA1c (Bld) [Mass fraction] 7.6 % High 3.8-5.6 [facility] Comment on above: Normal < 5.7 % Predi abetic 5.7 - 6.4 % Diabetic >or= 6.5 % Please note range changes. Hemoglobin measurementOrdere d By: Tracie Maldonado on 01-12-2024 Hemoglobin (Bld) [Mass/Vol] 13.1 g/dL 13.0-16.5 [facility] Immature granulocytes/100 WB C Auto (Bld)Ordered By: Tracie Maldonado on 01-12-2024 Immature granulocytes/100 WBC (Bld) 0.300 % 0.0-0.9 [facility] Comment on above: IG% - Immature Granu locytes (promyelocytes, myelocytes and metamyelocytes) > 1% indicates that a LEFT SHIFT is Present. Lymphocytes Auto (Unsp spec) [#/Vol]Ordered By: Tracie Maldonado on 01-12-2024 Lymphocytes (Bld) [#/Vol] 2.33 10*3/uL 0.83-4.51 [facility] Lymphocytes/100 WBC Auto (Un sp spec)Ordered By: Tracie Maldonado on 01-12-2024 Lymphocytes/100 WBC (Bld) 22.8 % 19-41 [facility] MCV (mean corpuscular volume ) determinationOrdered By: Tracie Maldonado on 01-12-2024 MCV (RBC) [Entitic vol] 95.1 fL High 80-94 [facility] Mean corpuscular hemoglobin (MCH) determinationOrdered By: Tracie Maldonado on 01-12-2024 MCH (RBC) [Entitic mass] 29.1 pg 27.0-32.0 [facility] Mean corpuscular hemoglobin concentration (MCHC) determinationOrdered By: Tracie Maldonado on 01-12-2024 MCHC (RBC) [Mass/Vol] 30.6 g/dL Low 32-36 [facility] Mean platelet volume determi nationOrdered By: Tracie Maldonado on 01-12-2024 Platelet mean volume (Bld) [Entitic vol] 12.0 fL 6.2-12.0 [facility] Monocyte percentageOrdered B y: Tracie Maldonado on 01-12-2024 Monocytes/100 WBC (Bld) 8.5 % 0-10 [facility] Neutrophil percentageOrdered By: Tracie Maldonado on 01-12-2024 Neutrophils/100 WBC (Bld) 63.6 % 47-70 [facility] Nucleated red blood cell per centageOrdered By: Tracie Maldonado on 01-12-2024 Nucleated RBC/100 WBC (Bld) [Ratio] 0 % 0-5 [facility] Platelet countOrdered By: Kesha trae Joel on 01-12-2024 Platelets (Bld) [#/Vol] 311 10*3/uL 150-450 [facility] RBC Auto (Bld) [#/Vol]Ordere d By: Tracie Maldonado on 01-12-2024 RBC (Bld) [#/Vol] 4.50 10*6/uL Low 4.6-6.2 [facility] White blood cell (WBC) count Ordered By: Tracie Millanke on 01-12-2024 WBC (Bld) [#/Vol] 10.2 10*3/uL 4.4-11.0 [facility] Re-Evaluation - PT (1)on Re-Evaluation - PT (1) [facility] [address] [place] [address] / REEVALUATION / MEDICARE RECERTIFICATION PHYSICAL THERAPY MR#: [id number] Acct: [id number] Name: GUSTAVO PATTON Rep #: [id number] : 1950 73 From: Bettye Quintana MPT Referring Dr.: SARAHI SOTO Status:REG RCR Insurance: MEDICARE PART A B [facility] Re-Evaluation Intro: SARAHI SOTO, It has been my pleasure to treat GUSTAVO PATTON over the last 11 visits for Parkinsons. Please see the progress note below for an update on the physical therapy plan of care! Subjective Subjective: He feels that his walking speed has improved some. He feels that PT is helping him and he likes PT. Objective Objective/Function: FGA 19 1 lap around inside loop 2 min and 16 seconds with VC's to increase stride length Supine to sit: pt struggles with supine to sit...uses his abdominal strain to sit up as in here he is afraid to roll of fear of rolling off the mat table Plan Plan Plan: 4 more visits for HEP (with pictures) for strength, balance, and gait activities (increase step length and speed (not too fast) and then DC. 3X/ week for 8 weeks to work on gait training (bigger stride, heel to toe, and more upright posture), balance, functional transfers/activities, posture, bed mobility (supine to sit and sit to supine and rolling), Trunk stretches (LTR, SKC, bridges), with HEP Balance/Gait/Functional tests Balance/Special Test Scores Functional Gait Assessment Score: 19 % Disability: 36.6700 Lower Extremity Functional Score: 75 Goals Goals Goal 1:: I HEP Goal Time Frame: 6-8 Weeks Goal 2:: Be able to go from sit to supine and supine to sit with ease Goal Time Frame: 6-8 Weeks Goal Progress: Progressing Goal 3:: Increase balance (FGA score was 17 on eval) Goal Time Frame: 6-8 Weeks Goal 4:: Walk with increase stride length and more upright posture Goal Time Frame: 6-8 Weeks Goal Progress: Progressing Anticipated Interventions Anticipated Interventions Patient/Client Instruction: Educate patient on: Condition and Plan of Care For the Purpose of:: To decrease pain, To increase ROM, To improve nutrient delivery to tissue, To improve muscle performance and motor function, To increase tolerance to activity/condition/posit ion, To improve performance and independence with ADL's, To decrease level of supervision to perform tasks, To improve gait and locomotor functions, To improve health of tissue, To decrease soft tissue restriction, To increase flexibility/ROM, To improve endurance, To improve balance and To improve safety with gait Therapeutic Exercise to Include: Strength training, Endurance training, Balance training, Coordination, Body mechanics, Postural training, Flexibilty training, Gait and locomotor training, Neuromotor development, Active ROM, Dynamic Lumbar Stabilization and Scapular Strength/Stabilization For the Purpose of:: To increase ROM, To improve nutrient delivery to tissue, To improve muscle performance and motor function, To improve ability to perform ADL's, To increase tolerance to activity/condition/posit ion, To improve performance and independence with ADL's, To decrease level of supervision to perform tasks, To improve ability of physical actions for home/community/work/leis ure, To improve gait and locomotor functions, To improve health of tissue, To decrease soft tissue restriction, To increase flexibility/ROM, To improve endurance, To improve balance and To improve safety with gait Functional Training to Include: Gait training For the Purpose of:: To improve gait and locomotor functions and To improve safety with gait Re-Evaluation Ending Re-evaluation ending: Please do not hesitate to contact me at [phone] by phone or if you have questions or concerns regarding this new plan of care! Sincerely, Bettye Quintana, MPT 01/08/24 1200 CC: Dr. Tracie Maldonado MD; SARAHI SOTO Signed For Medicare only, by signing this I certify the plan of care. ____ Physicians Signature Date Normal [facility] 12-21-2023 CNPN Telephone (KD) -------- GUSTAVO PATTON ([id number]) 1950 M Date Time Provider Department 12/21/23 FALLON STEINER During your visit today, we recorded the following information about you: Erma Olsen RN 12/21/2023 3:52 PM Signed Patient's recent Neurology note (12/06/23) has been faxed to his PCP office at [phone], for their update and for continuation of care of patient. Erma Olsen RN Allergies As of Date: 12/21/2023 (No Known Allergies) Date Reviewed: 12/06/2023 Reviewed by: Fallon Steiner PA-C - Fully Assessed Reason for Visit: Patient Request [[id number]] Prescriptions as of 12/21/2023 - carbidopa-levodopa (SINEMET 25-100) 25-100 mg per tablet TAKE 1.5 TABLETS BY MOUTH THREE TIMES DAILY (AT 9AM, 1PM AND 5PM) - apixaban (ELIQUIS) 5 mg tab(s) Take 1 tablet by mouth two times a day. - multivitamin tablet Take 1 tablet by mouth once daily. - Ipratropium [place] (ATROVENT) 21 mcg (0.03 %) nasal spray Use 1 [place] in the nose three times a day as needed. - SENNA-DOCUSATE SODIUM ORAL Take one tablet by mouth every other day as needed. - loratadine (CLARITIN) 10 mg tablet Take 10 mg by mouth once daily. - pantoprazole DR (PROTONIX) 20 mg tablet Take 1 tablet by mouth once daily. - metoprolol succinate ER (TOPROL XL) 25 mg 24 hr tablet TAKE 1 TABLET BY MOUTH EVERY DAY - atorvastatin (LIPITOR) 40 mg tablet 1 TABLET BY ORAL/FEEDING TUBE ROUTE DAILY AT BEDTIME. - lisinopril 2.5 mg tablet Take 1 tablet by mouth once daily. - metFORMIN (GLUCOPHAGE) 500 mg tablet Take 500 mg by mouth once daily. 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*05/24/2023 09/09/2023 Recurrent strokes (HCC) [I63.9] 07/17/2023 Encounter Status:Closed by ERMA OLSEN on 12/21/23 Normal [facility] Inital Evaluation (1) - PTon 12-12-2023 Inital Evaluation (1) - PT [facility] [address] [place] [address] [address] [place] [address] / REHABILITATION SERVICES INITIAL EVALUATION MR#: [id number] Acct: [id number] Name: GUSTAVO PATTON Rep #: [id number] : 1950 73 From: Bettye GIMENEZ Referring Dr.: SARHAI SOTO Status: REG RCR Insurance: MEDICARE PART A B [facility] Patient's Visit Information Visit Information Visit Information: GUSTAVO PATTON is a 73 year old M referred to Physical Therapy by SARAHI SOTO with a diagnosis of Parkinsons. Date of Evaluation: 12/12/23 Physical Therapist: PERNELL Fried Visit Plan Frequency: 3x /Week Duration: 2 Months Plan: 3X/ week for 8 weeks to work on gait training (bigger stride, heel to toe, and more upright posture), balance, functional transfers/activities, posture, bed mobility (supine to sit and sit to supine and rolling), Trunk stretches (LTR, SKC, bridges), with HEP Subjective Subjective: He was dx with PD when he was walking with his head leaning forward. He reports that he has had no falls in the last [address] He has no freezing episodes. He has some trouble getting out of a chair and needs his arms to push himself up. Stairs: he has to go down there to washer and dryer with a railing. He feels like when he goes up the steps he keeps going FW. When he goes one at a time when he carries his laundry. He lives alone. He has no trouble rolling over in bed or getting in/out of the shower. Pt denies any neck pain. He denies dizziness Pain neck pain: Pain Intensity (Out of 10): 0 Objective Objective: Gait: Walks with WBOS with short stride and decrease heel to toe gait pattern and decrease hip extension Stairs: Up and down recip with 1 hand rail and 2 hand rails going down recip LE MMT: R hip flex 11 and L 13.9 R knee ext 19.2 and L 21.4 R knee flex 14.2 and L 13.3 TU:80 FGA: 14 Sitting opp arm and leg: able to do 3 in a row and then reverts back to same side Pt struggles with going from supine to sit and sit to supine. Rolling is also an issue. He has rigid trunk Standing balance: feels like he is leaning forward...worked a little on weight shifting BW to right himself Balance/Special Test Scores Functional Gait Assessment Score: 14 % Disability: 53.3400 Lower Extremity Functional Score: 55 Goals Goal 1:: I HEP Goal Time Frame: 6-8 Weeks Goal 2:: Be able to go from sit to supine and supine to sit with ease Goal Time Frame: 6-8 Weeks Goal 3:: Increase balance (FGA score was 17 on eval) Goal Time Frame: 6-8 Weeks Goal 4:: Walk with increase stride length and more upright posture Goal Time Frame: 6-8 Weeks Rehabilitation Potential Rehabilitation Potential: Good Anticipated Interventions Patient/Client Instruction: Educate patient on: Condition and Plan of Care For the Purpose of:: To decrease pain, To increase ROM, To improve nutrient delivery to tissue, To improve muscle performance and motor function, To increase tolerance to activity/condition/posit ion, To improve performance and independence with ADL's, To decrease level of supervision to perform tasks, To improve gait and locomotor functions, To improve health of tissue, To decrease soft tissue restriction, To increase flexibility/ROM, To improve endurance, To improve balance and To improve safety with gait Therapeutic Exercise to Include: Strength training, Endurance training, Balance training, Coordination, Body mechanics, Postural training, Flexibilty training, Gait and locomotor training, Neuromotor development, Active ROM, Dynamic Lumbar Stabilization and Scapular Strength/Stabilization For the Purpose of:: To increase ROM, To improve nutrient delivery to tissue, To improve muscle performance and motor function, To improve ability to perform ADL's, To increase tolerance to activity/condition/posit ion, To improve performance and independence with ADL's, To decrease level of supervision to perform tasks, To improve ability of physical actions for home/community/work/leis ure, To improve gait and locomotor functions, To improve health of tissue, To decrease soft tissue restriction, To increase flexibility/ROM, To improve endurance, To improve balance and To improve safety with gait Functional Training to Include: Gait training For the Purpose of:: To improve gait and locomotor functions and To improve safety with gait Text: Thank you for the opportunity to evaluate your patient. For Medicare and Medicare HMO plans, please review the plan of care and approve it. It will need to be FAXED BACK to us at [phone] for Medicare purposes. For Medicare only, by signing this I certify the plan of care. Please let me know if there are questions or concerns regarding this plan of care. Physician Signature: (more content not included)... Normal [facility] CNOVon 12-06-2023 CNOV Office Visit (NEMOWS ) -------- GUSTAVO PATTON ([id number]) 1950 M Date Time Provider Department 12/06/23 12:30 PM FALLON STEINER During your visit today, we recorded the following information about you: Pulse Blood pressure 95/minute 122/73 Fallon Steiner PA-C 12/06/2023 1:13 PM Signed ESTABLISHED PATIENT VISIT Last visit: 10/20/[address] Manley ASSESSMENT/PLAN: 1. Recurrent strokes (HCC) - ICD9: 434.91, ICD10: I63.9 (primary diagnosis) 2. History of DVT (deep vein thrombosis) - ICD9: V12.51, ICD10: Z86.718 3. 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 Again, now on Eliquis and ASA 81mg per recs of Dr. Hart. Afib never determined on cardiac workup, but remains of concern. Given abnormal rhythms noted on Zio monitor, would like pt to follow up with his medical engineer Dr. Dill to determine if further workup necessary. Also question if pt would benefit from loop recorded but defer to cards. Otherwise no change in meds at this time. Dr. Hart following, and patient can follow up with Dr. Fraser for annual lipid panels (on statin but may need adjusted in future based on labs). BP goal <140/90. Glucose goal <140. 4. Parkinsonism, unspecified Parkinsonism type (HCC) - ICD9: 332.0, ICD10: G20.C Patient with change in gait since time of last visit that pt and caregiver who accompanies report as a progressive and not acute change. No spine symptoms such as pain. No b/b incontinence. Gait changes suggestive of parkinsonism. Concern for primary or PD with patient not having such symptoms after last stroke to suggest vascular cause. D/w pt and care director rn dx of PD, physiology, testing, treatment and prognosis. Hesitant to start on new meds given just recently placed on Eliquis yet, also concern for fall secondary to gait change which could result in hemorrhage. Again, no falls reported by patient. In the end, with pt approval, decision made to trial Sinemet 25/100mg TID with meals or 9AM/1PM/5PM. SE and ADRs d/w pt. Encouraged exercise and will consider PT depending on response to Sinemet. Will have pt back for reevaluation in 8 weeks or sooner prn. Jese Manley MD CHIEF COMPLAINT: follow up HISTORY OF PRESENT ILLNESS: Gustavo Patton is a 73 year old male, There were no vitals taken for this visit. with a PMH significant for CVA, cardiomyopathy, diabetes, DVT on Eliquis, IVC filter. Last seen on 10/20/[address] Manley. Reporting some paresthesias in his calves. No new stroke sxs. Has parkinsons gait, new, started sinemet. 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 At last appointment was started on Sinemet due to new shuffled gait. Patient states he has been responding well to the Sinemet. 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 Notes that his gait is slightly improved. No falls since last appointment. Patient states that sometimes he feels like he is going to fall backwards. No side effects with the Sinemet including lightheadedness, impulsivity, GI upset. No new strokelike symptoms. Of note, he did have chronic numbness and tingling of the feet and states this is actually significantly improved since starting the Sinemet. He does report today that in the last few months he has developed some stinging in the fifth digit of the left hand, this is constant and not improved with certain positions. No weakness in the hands, no dropping things, no symptoms on the right upper extremity or bilateral lower extremities. Notes that it is just isolated to the fifth digit and does not radiate into the hand or other digits. No injuries to that hand or finger that he can think of, no history of similar in the past. No new medications or other etiology that he can think of for this symptom. No significant neck pain, but notes that he sleeps on his side, unsure if he cause any compression. Denies any paresthesias, weakness, vision changes, slurred speech or new stroke symptoms. REVIEW OF SYSTEMS GENERAL:No weight loss, malaise or fevers. HEENT:Negative for frequent or significant headaches, No changes in hearing or vision, no nose bleeds or other nasal problems NECK:Negative for lumps, goiter, pain and significant neck swelling RESPIRATORY: Negative for cough, wheezing or shortness of breath. CARDIOVASCULAR: Negative for chest pain, leg swelling or palpitations. GASTROINTESTINAL: Negative for abdominal discomfort, blood in stools or black stools or change in bowel habits GENITOURINARY: No history of dysuria, frequency or incontinence MUSCULOSKELETAL: Negative for joint pain or swelling, back pain or muscle pain. NEUROLOGIC:Negative for focal numbness or weakness, headaches and dizziness or syncope, vision changes, speech/languag changes - EXCEPT that as pe (more content not included)... [facility] GUSTAVO PATTON ([id number]) 1950 M Date Time Provider Department 12/06/23 FALLON STEINER During your visit today, we recorded the following information about you: Fallon Steiner PA-C 12/06/2023 1:13 PM Signed Please fax PT order to [facility] in [place]. Liv Shaw LPN 12/06/2023 2:10 PM Signed Orders and face sheet faxed. Liv Shaw LPN December 06, 2023 2:10 PM Allergies As of Date: 12/06/2023 (No Known Allergies) Date Reviewed: 12/06/2023 Reviewed by: Fallon Steiner PA-C - Fully Assessed Prescriptions as of 12/06/2023 - carbidopa-levodopa (SINEMET 25-100) 25-100 mg per tablet TAKE 1.5 TABLETS BY MOUTH THREE TIMES DAILY (AT 9AM, 1PM AND 5PM) - apixaban (ELIQUIS) 5 mg tab(s) Take 1 tablet by mouth two times a day. - multivitamin tablet Take 1 tablet by mouth once daily. - Ipratropium [place] (ATROVENT) 21 mcg (0.03 %) nasal spray Use 1 [place] in the nose three times a day as needed. - SENNA-DOCUSATE SODIUM ORAL Take one tablet by mouth every other day as needed. - loratadine (CLARITIN) 10 mg tablet Take 10 mg by mouth once daily. - pantoprazole DR (PROTONIX) 20 mg tablet Take 1 tablet by mouth once daily. - metoprolol succinate ER (TOPROL XL) 25 mg 24 hr tablet TAKE 1 TABLET BY MOUTH EVERY DAY - atorvastatin (LIPITOR) 40 mg tablet 1 TABLET BY ORAL/FEEDING TUBE ROUTE DAILY AT BEDTIME. - lisinopril 2.5 mg tablet Take 1 tablet by mouth once daily. - metFORMIN (GLUCOPHAGE) 500 mg tablet Take 500 mg by mouth once daily. Problem List As Of Date 12/06/2023 Noted Resolved Cerebrovascular accident (CVA) (HCC) [I63.9] 04/01/2021 Diabetes (HCC) [E11.9] 04/01/2021 Deep vein thrombosis (DVT) of lower extremity (*04/02/2021 Dysphagia [R13.10] 04/02/2021 Cardiomyopathy (HCC) [I42.9] 04/03/2021 Language impairment [F80.9] 05/10/2023 Cerebral infarction due to embolism of left mid*05/24/2023 09/09/2023 Recurrent strokes (HCC) [I63.9] 07/17/2023 Encounter Status:Closed by FALLON STEINER on 12/06/23 [facility] Cardiology Visit Reporton Cardiology Visit Report [facility] [address] [place] [address] OFFICE VISIT Date of Service: 11/09/23 MR#: [id number] Acct: [id number] Name: GUSTAVO PATTON #: [id number] : 1950 Provider: MONTEZ bailey Age/Sex: 72/M Location: [facility] [place] Status: Signed [facility] History of Present Illness Details: 72-year-old man with no previous history other than hypertension and previous cerebrovascular accident in 2021. He underwent Zio patch event monitor in August 2023 with neurologist. This showed average heart rate 82 bpm. 1 episode of ventricular tachycardia for 4 beats noted. He had 1 episode of ventricular bigeminy for 9 seconds and 1 episode of ventricular trigeminy for 7.4 seconds. He denies chest, arm, jaw, or neck discomfort. He denies palpitations. He denies bilateral lower extremity edema. He denies claudication. He denies shortness of breath with activity, shortness of breath at rest, orthopnea, or PND. He denies chronic cough. He denies significant, sudden weight gain. He denies lightheadedness, dizziness, near-syncope, or syncope. He denies blood in urine, blood in stool, or epistaxis. He denies fever with chills. He denies myalgia. He denies fatigue. His exercise level has remained stable. 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 Required: No Is patient in pain?: No Allergies No Known Allergies Allergy (Verified 11/09/23 13:42) Medications ???Medication ???Instructions ???Recorded ???Confirmed ???Type multivitamin 1 cap PO DAILY supplement 12/26/21 11/09/23 History atorvastatin 40 mg tablet 40 mg PO QHS #30 tabs 12/05/22 11/09/23 Rx lisinopril 2.5 mg tablet 2.5 mg PO DAILY #30 tabs 12/05/22 11/09/23 Rx metoprolol succinate 25 mg 25 mg PO DAILY #30 tabs 12/05/22 11/09/23 Rx tablet,extended release 24 hr loratadine 10 mg tablet (Allergy 10 mg PO DAILY 01/20/23 11/09/23 History Relief (loratadine)) sennosides 8.6 mg tablet (Senna 8.6 mg PO QHS 01/20/23 11/09/23 History Lax) metformin 500 mg tablet 500 mg PO DAILY 05/23/23 11/09/23 History pantoprazole 20 mg tablet,delayed 20 mg PO DAILY 05/23/23 11/09/23 History release apixaban 5 mg tablet (Eliquis) 5 mg PO BID 11/09/23 11/09/23 History aspirin 81 mg chewable tablet 81 mg PO QDAY 11/09/23 11/09/23 History carbidopa 25 mg-levodopa 100 mg 1 tab PO TID 11/09/23 11/09/23 History tablet ipratropium bromide 21 mcg (0.03 2 spray intranasal TID PRN 11/09/23 History %) nasal spray Ejection fraction %: 65 Have you fallen in the past year?: No PFSH Medical History Dysphagia Primary cardiomyopathy Essential (primary) hypertension Diastolic heart failure Facial droop History of developmental delay History of DVT (deep vein thrombosis) Remote history of stroke DM II (diabetes mellitus, type II), controlled Dysarthria Stroke/cerebrovascular accident Family History Father Diabetes Social History household members: none housing: apartment number of children: 0 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 pets and animals: No Smoking Status: Never smoker alcohol intake: never substance use type: does not use ROS Const Const: Negative for fatigue or weakness Eyes Eyes: Negative for change in vision ENT ENT: Negative for dizziness, Nosebleed/epistaxis or balance problems Cardio Chest Pain: No Palpitations: No Edema: None Muscle aches with walking: None Resp Respiratory: Negative for SOB with activity, SOB at rest, SOB orthopnea SOB lying down, Cough or paroxysmal nocturnal dyspnea GI GI: Negative nausea, heartburn or black,tarry stools : Negative for hematuria Musc Musc: Negative for muscle aches/ myalgia, muscle weakness, joint pain or balance problems Skin Skin: Negative rash Neuro Neuro: Negative for dizziness, lightheadedness, near syncope, syncope or weakness Didier Hematologic/Lymphatic: Negative for easy bleeding or easy bruising Endo Endo: Negative for fatigue Allergy Allergy/Immunology: Negative for rash Cardiology Exam Const Appearance: cooperative, healthy appearing, comfortable and no acute distress Nutritional Appearance: well nourished and overweight Orientation: alert, awake and oriented x3 Head Head: normal to inspection Ears: hearing grossly normal bilaterally Nose: external nose normal Face and Sinus: face symmetri (more content not included)... Normal [facility] CNOVon 10-20-2023 CNOV Office Visit (NEMSERGIO ) -------- GUSTAVO PATTON ([id number]) 1950 M Date Time Provider Department 10/20/23 10:40 AM JESE MANLEY JR During your visit today, we recorded the following information about you: Pulse Blood pressure Weight 86/minute 122/78 83.4 kg Jese Manley Jr., MD 10/20/2023 11:31 AM Signed ESTABLISHED PATIENT VISIT CHIEF COMPLAINT: Follow Up HISTORY OF PRESENT ILLNESS: Gustavo Patton is a 72 year old male, with a PMH significant for and per last visit of 07/17/23: 1. Recurrent strokes (HCC) - ICD9: 434.91, ICD10: I63.9 (primary diagnosis) Patient with recurrent strokes over the past couple years, of which etiology is uncertain. He has multiple stroke risk factors including HTN, DM, HLD - uncertain to what extent these risk factors are controlled. However, concerning that strokes have occurred in various vascular distributions and thus, possible central embolic source. Limited follow up with me (as above) and patient is limited historian as well, making it difficult to determine cause of symptoms. Non focal neuro exam at present. I reviewed prior records as best could be given limited records available for review. Repeat ECHOs have not shown cardiac source. HOWEVER, still need to consider possible paroxysmal afib, and thus will repeat Zio monitor. Will also get new imaging of both intra and extracranial large vessels to evaluate for stenosis or LVO with pt not having such imagining during last admit (per documentation that I reviewed. Also given multiple strokes as well as DVT, patient may benefit from heme evaluation for clotting disorder. Will place consult. Was going to draw labs today but pt declined. In addition: -Continue Plavix 75mg daily. -Continue statin with PCP follow up - goal LDL <70. -BP goal <140/90. -Glucose goal <140. -MRA head and neck to evaluate for large vessel disease. -Zio monitor as above. -Need most updated PCP and cards notes and will request. -Follow up after completion of testing above. -Patient needs family or others who know med history to attend visits with patient to help with history. MRA brain per rad report: Relative paucity of distal branches of the left MCA compatible with the remote cortical infarct in this vascular territory. Otherwise no evidence of significant large vessel intracranial occlusive disease. No significant stenosis in either carotid bifurcation by NASCET criteria. Patent cervical vertebral arteries. Zio monitor showed per report (no afib): RHYTHM FINDINGS: Patient had a min HR of 53 bpm, max HR of 179 bpm, and avg HR of 82 bpm. Predominant underlying rhythm was Sinus Rhythm. 1 run of Ventricular Tachycardia occurred lasting 4 beats with a max rate of 179 bpm (avg 135 bpm). Isolated SVEs were rare (<1.0%), SVE Couplets were rare (<1.0%), and SVE Triplets were rare (<1.0%). Isolated VEs were occasional (2.0%, 18708), VE Couplets were rare (<1.0%, 70), and no VE Triplets were present. Ventricular Bigeminy and Trigeminy were present. Pt has also seen Dr. Alfredo Hart of [facility] and I have discussed plan with Dr. Hart as documented per his note: (I63.9) Recurrent strokes (HCC) (primary encounter diagnosis) (I82.511) Chronic deep vein thrombosis (DVT) of femoral vein of right lower extremity (HCC) (Z95.828) Presence of IVC filter Assessment: -72 yo male with h/o multiple strokes. At least one occurred after IVC filter placed in 2021. No repeat duplex ultrasound of the legs when inpatient in the fall 2022 -Currently on Plavix. -Was not previously on anticoagulation when had original right lower extremity DVT secondary to need for fibrinolytic therapy. -No exam findings of postphlebitic syndrome. -Elevated factor VIII:C. -Multiple strokes in differing vascular territories -Discussed starting apixaban and stopping Plavix. Plan: -I will contact his BAKER PIE that sees him through the [facility] via [facility] to update her on medication recommendations (Dorinda White, BAKER PIE [phone] -Rx apixaban 5 mg BID. -Stop Plavix. -Okay to resume ASA for history of PVD (suggested by SYLVIE 12/2021). Patient reports no longer riding motorcycle. Very talkative. When getting up from seated position sometimes feels tingling in back of calves (not pain). Goes away once up on his feet for 5 seconds. No back pain. Now on Eliquis as above. No side effects, but patient again mentions that his feet are tingling. Unclear if this is the same tingling he describes above. When I explain risks of Eliquis then tells me he is having heart fluttering when lifting weights. Pt follows with Dr. Dill. No other new neurologic deficits. Denies back pain. Lives by self - independent. Hemoglobin A1C (%) Date Value 04/02/2021 14.4 Family reports most recent in July 2023 was 7.2. Spends most days watching tv and sleeping, but states he is tr (more content not included)... Normal [facility] 10-20-2023 [facility] Telephone (KD) -------- GUSTAVO PATTON ([id number]) 1950 M Date Time Provider Department 10/20/23 JESE MANLEY JR During your visit today, we recorded the following information about you: Liv Shaw LPN 10/20/2023 12:55 PM Signed Jese Manley Jr., MD P tr Neur Sindhu Nurse Please help pt schdule follow up with Dr. Aniyah MOREL. Please send copy of Zio monitor. Eloy LivAGATA dos santos 10/20/2023 1:15 PM Signed Called office notified fax will be coming for patient who needs appointment brooke, staff verified. Fax sent. Liv Shaw LPN October 20, 2023 1:15 PM Allergies As of Date: 10/20/2023 (No Known Allergies) Date Reviewed: 10/20/2023 Reviewed by: Jese Manley Jr., MD - Fully Assessed Prescriptions as of 10/20/2023 - carbidopa-levodopa (SINEMET) 25-100 mg per tablet Take 1 tablet at 9AM, 1PM and 5PM. - apixaban (ELIQUIS) 5 mg tab(s) Take 1 tablet by mouth two times a day. - multivitamin tablet Take 1 tablet by mouth once daily. - Ipratropium [place] (ATROVENT) 21 mcg (0.03 %) nasal spray Use 1 [place] in the nose three times a day as needed. - SENNA-DOCUSATE SODIUM ORAL Take one tablet by mouth every other day as needed. - loratadine (CLARITIN) 10 mg tablet Take 10 mg by mouth once daily. - pantoprazole DR (PROTONIX) 20 mg tablet Take 1 tablet by mouth once daily. - metoprolol succinate ER (TOPROL XL) 25 mg 24 hr tablet TAKE 1 TABLET BY MOUTH EVERY DAY - atorvastatin (LIPITOR) 40 mg tablet 1 TABLET BY ORAL/FEEDING TUBE ROUTE DAILY AT BEDTIME. - lisinopril 2.5 mg tablet Take 1 tablet by mouth once daily. - metFORMIN (GLUCOPHAGE) 500 mg tablet Take 500 mg by mouth once daily. Problem List As Of Date 10/20/2023 Noted Resolved Cerebrovascular accident (CVA) (HCC) [I63.9] 04/01/2021 Diabetes (HCC) [E11.9] 04/01/2021 Deep vein thrombosis (DVT) of lower extremity (*04/02/2021 Dysphagia [R13.10] 04/02/2021 Cardiomyopathy (HCC) [I42.9] 04/03/2021 Language impairment [F80.9] 05/10/2023 Cerebral infarction due to embolism of left mid*05/24/2023 09/09/2023 Recurrent strokes (HCC) [I63.9] 07/17/2023 Encounter Status:Closed by LIV SHAW on 10/20/23 [facility] (HEMAWS) -------- GUSTAVO PATTON ([id number]) 1950 M Date Time Provider Department 10/03/23 CRUZITO HART During your visit today, we recorded the following information about you: Masha Pichardo 10/03/2023 11:46 AM Signed Please call Dorinda [phone]. She has questions regarding plavix and eliquis. Haydee Kelley LPN 10/03/2023 1:07 PM Signed Dorinda from [employer] is calling. Asking if pt is to stop Plavix as pt was started on Eliquis. Per OV note -Rx apixaban 5 mg BID. -Stop Plavix. -Okay to resume ASA for history of PVD (suggested by SYLVIE 12/2021). Relayed that to Dorinda. However pt went to package pick up Rx, was $500, he did pick it up and pay for it but will not be able to do that every month. Will ask our hospital social worker first if there is a Copay card he can utilize. Dr Hart, is pt to follow up here or resume f/u with your recommendation to PCP. AGATA Mohan Samantha, LISW 10/03/2023 1:39 PM Signed Unfortunately since pt filled the script he is ineligible for the co-pay card. However, he could likely qualify for the patient assistance program through [employer]. I'll prepare the application and contact Dorinda and patient to discuss. JOSELINE Adkins-S Allergies As of Date: 10/03/2023 (No Known Allergies) Date Reviewed: 09/25/2023 Reviewed by: Cleveland Leary MA - Fully Assessed Reason for Visit: Medication Question [3368] Prescriptions as of 10/03/2023 - apixaban (ELIQUIS) 5 mg tab(s) Take 1 tablet by mouth two times a day. - multivitamin tablet Take 1 tablet by mouth once daily. - Ipratropium [place] (ATROVENT) 21 mcg (0.03 %) nasal spray Use 1 [place] in the nose three times a day as needed. - SENNA-DOCUSATE SODIUM ORAL Take one tablet by mouth every other day as needed. - loratadine (CLARITIN) 10 mg tablet Take 10 mg by mouth once daily. - pantoprazole DR (PROTONIX) 20 mg tablet Take 1 tablet by mouth once daily. - metoprolol succinate ER (TOPROL XL) 25 mg 24 hr tablet TAKE 1 TABLET BY MOUTH EVERY DAY - atorvastatin (LIPITOR) 40 mg tablet 1 TABLET BY ORAL/FEEDING TUBE ROUTE DAILY AT BEDTIME. - lisinopril 2.5 mg tablet Take 1 tablet by mouth once daily. - metFORMIN (GLUCOPHAGE) 500 mg tablet Take 500 mg by mouth once daily. Problem List As Of Date 10/03/2023 Noted Resolved Cerebrovascular accident (CVA) (HCC) [I63.9] 04/01/2021 Diabetes (HCC) [E11.9] 04/01/2021 Deep vein thrombosis (DVT) of lower extremity (*04/02/2021 Dysphagia [R13.10] 04/02/2021 Cardiomyopathy (HCC) [I42.9] 04/03/2021 Language impairment [F80.9] 05/10/2023 Cerebral infarction due to embolism of left mid*05/24/2023 09/09/2023 Recurrent strokes (HCC) [I63.9] 07/17/2023 Encounter Status:Closed by SHEREEN MERCEDES on 10/03/23 [facility] CNOVSPon 09-25-2023 CNOVSP Visit (SP) Office (HEMAWS) -------- GUSTAVO PATTON ([id number]) 1950 M Date Time Provider Department 09/25/23 3:50 PM CRUZITO HART HEMAWS During your visit today, we recorded the following information about you: Temperature Pulse Blood pressure Weight 98.3 degrees 83/minute 114/75 83.2 kg Cruzito Hart, 10/01/2023 4:42 PM Signed Hematologic problem(s): 1) H/O RLE DVT. 2) IVC filter 2021. 3) Multiple strokes in differing vascular territories. 4) Elevated factor VIII:C; normal CRP. HPI: The patient is a 72-year-old male with a past medical history as outlined below. 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 He has underlying history of hypertension, diabetes mellitus, and diastolic heart failure. 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 He was diagnosed with left MCA infarct with petechial hemorrhage, transferred to [facility]. He also had left M1 occlusion. He underwent mechanical thrombectomy of his left MCA infarct by Dr. Mohamud. He also had an echocardiogram, which revealed ejection fraction of 45%. His hospital course was complicated by chronic diastolic heart failure as well as right popliteal deep vein thrombosis. With his recent thrombectomy, he is only anticoagulated for least 6 to 8 weeks. He does have an inferior vena cava filter placed. 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 Functionally, heis requiring minimal assistance for his bed mobility and transfers, ambulates 40 feet with a wheeled walker, minimal assistance. He was now admitted to [facility] for poststroke inpatient rehabilitation therapies. IVC filter placed 04/20/2021. No procedure note indicating it was removed. 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 Left leg negative for acute DVT. Per Dr. Manley's most recent note, Patient with recurrent strokes over the past couple years, of which etiology is uncertain. He ahs multiple stroke risk factors including HTN, DM, HLD - uncertain to what extent these risk factors are controlled. However, concerning that strokes have occurred in various vascular distributions and thus, possible central embolic source. Limited follow up with me (as above) and patient is limited historian as well, making it difficult to determine cause of symptoms. Non focal neuro exam at present. I reviewed prior records as best could be given limited records available for review. Repeat ECHOs have not shown cardiac source. HOWEVER, still need to consider possible paroxysmal afib, and thus will repeat Zio monitor. Will also get new imaging of both intra and extracranial large vessels to evaluate for stenosis or LVO with pt not having such imagining during last admit (per documentation that I reviewed. Also given multiple strokes as well as DVT, patient may benefit from heme evaluation for clotting disorder. Will place consult. Was going to draw labs today but pt declined. Carotid arterial duplex ultrasound 04/2022 showed mild less than 50% stenosis of both the right and left extracranial internal carotid arteries. Patent and antegrade flow was observed in the vertebral arteries bilaterally. He was admitted again to [facility] 11/22/2022 for complaint of slurred speech and weakness. Noncontrast CT brain revealed prior infarcts in the left frontotemporal area and also the right occipital area. No acute findings. He was placed on aspirin, Plavix and beta-erika and statin drug was continued. Teleneurology recommended dual antiplatelet therapy for 3 weeks then discontinue aspirin. CTA and MRI were advised. MRI showed right frontal and right temporal acute ischemic infarcts. CTA was not done but an echocardiogram that showed an EF of 65% with no wall motion abnormalities and bubble study negative. Both atria were of normal size. He was transferred to inpatient rehab on 11/24/2022. Most recent MRI brain from [facility] 11/22/2022 demonstrated acute infarct in the right parietal lobe and old left frontal temporal infarct. CT brain with and without contrast 01/05/2023 demonstrated encephalomalacia in the left temporoparietal and frontal lobes as well as right occipital lobe. Coagulation times were normal 11/22/2022. CBC from 07/27/2023 showed a white count of 8300. Hemoglobin 13.2 g/dL and a platelet count 321,000. MCV was 94.7. Per initial office consultation here: Denies palpitations and sensations of tachycardia. Denies dizziness and orthostasis. Has history of developmental delay [facility] (more content not included)... Normal [facility] MRA Head vessels WO contrast on 08-21-2023 * * *Final Report* * * DATE OF EXAM: Aug 21 2023 2:43PM WRM 0272 - MRA BRAIN WO IVCON / PROCEDURE REASON: Cerebral infarction, unspecified mechanism (HCC) * * * * Physician Interpretation * * * * EXAMINATION: MRA BRAIN WO IVCON, MRA CAROTID WO IVCON CLINICAL HISTORY: Recurrent strokes. TECHNIQUE: Intracranial and extracranial 3D [id number] MRA with post-processing performed at the modality and 2D multiplanar and 3D maximum intensity projections were created, reviewed and archived. MQ: [id number]_3 COMPARISON: 04/03/2021 and 04/01/2021 RESULT: INTRACRANIAL MRA: The distal vertebral arteries are patent. The left vertebral artery is dominant. There appears to be long segment mild luminal narrowing in the distal right V4 segment but this may in part be artifactual. No significant stenosis in the distal left vertebral or basilar arteries. The proximal AICAs/PICAs, SCA's and bank compliance officer are patent without evidence of focal significant stenosis or abrupt vessel occlusion in the posterior intracranial circulation. Left PCOM is patent. No right PCOM is seen. The distal ICAs are patent and demonstrate no evidence of focal significant stenosis. The proximal ACAs and MCAs are patent. Right A1 segment is mildly hypoplastic. There is a relative paucity of sylvian branches of the left MCA compatible with the remote cortical infarct in this vascular territory. The proximal ACAs and MCAs otherwise appear to be within normal limits of caliber and configuration. No evidence of focal significant stenosis, abrupt vessel occlusion, aneurysm or vascular malformation otherwise in the anterior intracranial circulation. EXTRACRANIAL MRA: Carotid Stenosis: Right Common: No significant stenosis. Right Internal Plaque: No significant plaque formation. Right Internal Carotid Stenosis (% by NASCET Criteria): 0 Left Common: No significant stenosis. Left Internal Carotid Plaque: No significant plaque formation. Left Internal Carotid Stenosis (% by NASCET Criteria): 0 Cervical Vertebral Arteries: Patency: Bilateral. Both cervical vertebral arteries appear to be within normal limits of caliber and configuration. Dominance: Left DIVISION OF RADIOLOGY Provider, [facility] - 08/21/2023 * * *Final Report* * * DATE OF EXAM: Aug 21 2023 2:43PM WRM 0272 - MRA BRAIN WO IVCON / PROCEDURE REASON: Cerebral infarction, unspecified mechanism (HCC) * * * * Physician Interpretation * * * * EXAMINATION: MRA BRAIN WO IVCON, MRA CAROTID WO IVCON CLINICAL HISTORY: Recurrent strokes. TECHNIQUE: Intracranial and extracranial 3D imbo-jk-rzyhsl MRA with post-processing performed at the modality and 2D multiplanar and 3D maximum intensity projections were created, reviewed and archived. MQ: [email or web address]_3 COMPARISON: 04/03/2021 and 04/01/2021 RESULT: INTRACRANIAL MRA: The distal vertebral arteries are patent. The left vertebral artery is dominant. There appears to be long segment mild luminal narrowing in the distal right V4 segment but this may in part be artifactual. No significant stenosis in the distal left vertebral or basilar arteries. The proximal AICAs/PICAs, SCA's and bank compliance officer are patent without evidence of focal significant stenosis or abrupt vessel occlusion in the posterior intracranial circulation. Left PCOM is patent. No right PCOM is seen. The distal ICAs are patent and demonstrate no evidence of focal significant stenosis. The proximal ACAs and MCAs are patent. Right A1 segment is mildly hypoplastic. There is a relative paucity of sylvian branches of the left MCA compatible with the remote cortical infarct in this vascular territory. The proximal ACAs and MCAs otherwise appear to be within normal limits of caliber and configuration. No evidence of focal significant stenosis, abrupt vessel occlusion, aneurysm or vascular malformation otherwise in the anterior intracranial circulation. EXTRACRANIAL MRA: Carotid Stenosis: Right Common: No significant stenosis. Right Internal Plaque: No significant plaque formation. Right Internal Carotid Stenosis (% by NASCET Criteria): 0 Left Common: No significant stenosis. Left Internal Carotid Plaque: No significant plaque formation. Left Internal Carotid Stenosis (% by NASCET Criteria): 0 Cervical Vertebral Arteries: Patency: Bilateral. Both cervical vertebral arteries appear to be within normal limits of caliber and configuration. Dominance: Left IMPRESSION IMPRESSION: Relative paucity of distal branches of the left MCA compatible with the remote cortical infarct in this vascular territory. Otherwise no evidence of significant large vessel intracranial occlusive disease. No significant stenosis in either carotid bifurcation by NASCET criteria. Patent cervical vertebral arteries. Online Content Coordinator: [facility] Transcribe Date/Time: Aug 21 2023 2:53P Dictated by : CRUZITO TOLBERT MD This examination was interpreted and the report reviewed and electronically signed by: CRUZITO TOLBERT MD on Aug 21 2023 3:10PM EST [facility] MRA Neck vessels WO contrast on 08-21-2023 * * *Final Report* * * DATE OF EXAM: Aug 21 2023 2:43PM [facility] 0275 - MRA CAROTID WO IVCON / PROCEDURE REASON: Cerebral infarction, unspecified mechanism (HCC) * * * * Physician Interpretation * * * * EXAMINATION: MRA BRAIN WO IVCON, MRA CAROTID WO IVCON CLINICAL HISTORY: Recurrent strokes. TECHNIQUE: Intracranial and extracranial 3D xxhi-xk-mpxgep MRA with post-processing performed at the modality and 2D multiplanar and 3D maximum intensity projections were created, reviewed and archived. MQ: [id number]_3 COMPARISON: 04/03/2021 and 04/01/2021 RESULT: INTRACRANIAL MRA: The distal vertebral arteries are patent. The left vertebral artery is dominant. There appears to be long segment mild luminal narrowing in the distal right V4 segment but this may in part be artifactual. No significant stenosis in the distal left vertebral or basilar arteries. The proximal AICAs/PICAs, SCA's and bank compliance officer are patent without evidence of focal significant stenosis or abrupt vessel occlusion in the posterior intracranial circulation. Left PCOM is patent. No right PCOM is seen. The distal ICAs are patent and demonstrate no evidence of focal significant stenosis. The proximal ACAs and MCAs are patent. Right A1 segment is mildly hypoplastic. There is a relative paucity of sylvian branches of the left MCA compatible with the remote cortical infarct in this vascular territory. The proximal ACAs and MCAs otherwise appear to be within normal limits of caliber and configuration. No evidence of focal significant stenosis, abrupt vessel occlusion, aneurysm or vascular malformation otherwise in the anterior intracranial circulation. EXTRACRANIAL MRA: Carotid Stenosis: Right Common: No significant stenosis. Right Internal Plaque: No significant plaque formation. Right Internal Carotid Stenosis (% by NASCET Criteria): 0 Left Common: No significant stenosis. Left Internal Carotid Plaque: No significant plaque formation. Left Internal Carotid Stenosis (% by NASCET Criteria): 0 Cervical Vertebral Arteries: Patency: Bilateral. Both cervical vertebral arteries appear to be within normal limits of caliber and configuration. Dominance: Left DIVISION OF RADIOLOGY Provider, [facility] - 08/21/2023 * * *Final Report* * * DATE OF EXAM: Aug 21 2023 2:43PM [facility] 0275 - MRA CAROTID WO IVCON / PROCEDURE REASON: Cerebral infarction, unspecified mechanism (HCC) * * * * Physician Interpretation * * * * EXAMINATION: MRA BRAIN WO IVCON, MRA CAROTID WO IVCON CLINICAL HISTORY: Recurrent strokes. TECHNIQUE: Intracranial and extracranial 3D tfwh-uz-bxkmig MRA with post-processing performed at the modality and 2D multiplanar and 3D maximum intensity projections were created, reviewed and archived. MQ: [id number]_3 COMPARISON: 04/03/2021 and 04/01/2021 RESULT: INTRACRANIAL MRA: The distal vertebral arteries are patent. The left vertebral artery is dominant. There appears to be long segment mild luminal narrowing in the distal right V4 segment but this may in part be artifactual. No significant stenosis in the distal left vertebral or basilar arteries. The proximal AICAs/PICAs, SCA's and bank compliance officer are patent without evidence of focal significant stenosis or abrupt vessel occlusion in the posterior intracranial circulation. Left PCOM is patent. No right PCOM is seen. The distal ICAs are patent and demonstrate no evidence of focal significant stenosis. The proximal ACAs and MCAs are patent. Right A1 segment is mildly hypoplastic. There is a relative paucity of sylvian branches of the left MCA compatible with the remote cortical infarct in this vascular territory. The proximal ACAs and MCAs otherwise appear to be within normal limits of caliber and configuration. No evidence of focal significant stenosis, abrupt vessel occlusion, aneurysm or vascular malformation otherwise in the anterior intracranial circulation. EXTRACRANIAL MRA: Carotid Stenosis: Right Common: No significant stenosis. Right Internal Plaque: No significant plaque formation. Right Internal Carotid Stenosis (% by NASCET Criteria): 0 Left Common: No significant stenosis. Left Internal Carotid Plaque: No significant plaque formation. Left Internal Carotid Stenosis (% by NASCET Criteria): 0 Cervical Vertebral Arteries: Patency: Bilateral. Both cervical vertebral arteries appear to be within normal limits of caliber and configuration. Dominance: Left IMPRESSION IMPRESSION: Relative paucity of distal branches of the left MCA compatible with the remote cortical infarct in this vascular territory. Otherwise no evidence of significant large vessel intracranial occlusive disease. No significant stenosis in either carotid bifurcation by NASCET criteria. Patent cervical vertebral arteries. Online Content Coordinator: [facility] Transcribe Date/Time: Aug 21 2023 2:53P Dictated by : CRUZITO TOLBERT MD This examination was interpreted and the report reviewed and electronically signed by: CRUZITO TOLBERT MD on Aug 21 2023 3:10PM EST [facility] No Panel Informationon 08-20 IMPRESSION: Relative paucity of distal branches of the left MCA compatible with the remote cortical infarct in this vascular territory. Otherwise no evidence of significant large vessel intracranial occlusive disease. No significant stenosis in either carotid bifurcation by NASCET criteria. Patent cervical vertebral arteries. Online Content Coordinator: [facility] Transcribe Date/Time: Aug 21 2023 2:53P Dictated by : CRUZITO TOLBERT MD This examination was interpreted and the report reviewed and electronically signed by: CRUZITO TOLBERT MD on Aug 21 2023 3:10PM [facility] DIVISION OF RADIOLOGY Radiology Study observation (narrative) [facility] No Panel InformationOrdered By: Ccf Provider on 08-21-2023 [facility] CBC W/Diff, Automatedon - Absolute Lymph 1.70 X10 3/uL Normal 0.83-4.51 [facility] Comment on above: Order Comment: Order Date: 07/27/23 Order Info: 0184-1 - CBCD Performed By: #### L 500.4100, L100.0100, L500.4050, [id number] #### [facility] [address] [place], [address] Absolute Neut 5.7 X10 3/uL Normal 2.0-7.7 [facility] Comment on above: Order Comment: Order Date: 07/27/23 Order Info: 0184-1 - CBCD Performed By: #### L 500.4100, L100.0100, L500.4050, [id number] #### [facility] [address] [place], [address] Basophils/100 WBC (Bld) 1.1 % High 0-1 [facility] Comment on above: Order Comment: Order Date: 07/27/23 Order Info: 0184-1 - CBCD Performed By: #### L 500.4100, L100.0100, L500.4050, [id number] #### [facility] [address] [place], [address] Eosinophils/100 WBC (Bld) 1.6 % Normal 0-5 [facility] Comment on above: Order Comment: Order Date: 07/27/23 Order Info: 0184-1 - CBCD Performed By: #### L 500.4100, L100.0100, L500.4050, [id number] #### [facility] [address] [place], [address] Erythrocyte distribution width (RBC) [Ratio] 12.3 % Normal 11.6-14.6 [facility] Comment on above: Order Comment: Order Date: 07/27/23 Order Info: 018-1 - CBCD Performed By: #### L 500.4100, L100.0100, L500.4050, [id number] #### [facility] [address] [place], [address] Hematocrit (Bld) [Volume fraction] 41.1 % Normal 40-54 [facility] Comment on above: Order Comment: Order Date: 07/27/23 Order Info: 0184-1 - CBCD Performed By: #### L 500.4100, L100.0100, L500.4050, [id number] #### [facility] [address] [place], [address] Hemoglobin (Bld) [Mass/Vol] 13.2 g/dL Normal 13.0-16.5 [facility] Comment on above: Order Comment: Order Date: 07/27/23 Order Info: 0184-1 - CBCD Performed By: #### L 500.4100, L100.0100, L500.4050, [id number] #### [facility] [address] [place], [address] IG% 0.200 Normal 0.0-0.9 [facility] Comment on above: Order Comment: Order Date: 07/27/23 Order Info: 0184-1 - CBCD Result Comment: IG% - Immature Granulocytes (promyelocytes, myelocytes and metamyelocytes) > 1% indicates that a LEFT SHIFT is Present. Performed By: #### L 500.4100, L100.0100, L500.4050, [id number] #### [facility] [address] [place], [address] Lymphocytes/100 WBC (Bld) 20.4 % Normal 19-41 [facility] Comment on above: Order Comment: Order Date: 07/27/23 Order Info: 0184- - CBCD Performed By: #### L 500.4100, L100.0100, L500.4050, [id number] #### [facility] [address] [place], [address] MCH (RBC) [Entitic mass] 30.4 pg Normal 27.0-32.0 [facility] Comment on above: Order Comment: Order Date: 07/27/23 Order Info: 0184-1 - CBCD Performed By: #### L 500.4100, L100.0100, L500.4050, [id number] #### [facility] [address] [place], [address] MCHC (RBC) [Mass/Vol] 32.1 g/dL Normal 32-36 [facility] Comment on above: Order Comment: Order Date: 07/27/23 Order Info: 0184- - CBCD Performed By: #### L 500.4100, L100.0100, L500.4050, [id number] #### [facility] [address] [place], [address] MCV (RBC) [Entitic vol] 94.7 fL High 80-94 [facility] Comment on above: Order Comment: Order Date: 07/27/23 Order Info: 0184-1 - CBCD Performed By: #### L 500.4100, L100.0100, L500.4050, [id number] #### [facility] [address] [place], [address] Monocytes/100 WBC (Bld) 8.3 % Normal 0-10 [facility] Comment on above: Order Comment: Order Date: 07/27/23 Order Info: 0184-1 - CBCD Performed By: #### L 500.4100, L100.0100, L500.4050, [id number] #### [facility] [address] [place], [address] Neutrophils/100 WBC (Bld) 68.4 % Normal 47-70 [facility] Comment on above: Order Comment: Order Date: 07/27/23 Order Info: 0184-1 - CBCD Performed By: #### L 500.4100, L100.0100, L500.4050, [id number] #### [facility] [address] [place], [address] Nucleated RBC (Bld) [#/Vol] 0 10*3/uL Normal 0-5 [facility] Comment on above: Order Comment: Order Date: 07/27/23 Order Info: 0184-1 - CBCD Performed By: #### L 500.4100, L100.0100, L500.4050, [id number] #### [facility] [address] [place], [address] Platelet mean volume (Bld) [Entitic vol] 11.6 fL Normal 6.2-12.0 [facility] Comment on above: Order Comment: Order Date: 07/27/23 Order Info: 0184-1 - CBCD Performed By: #### L 500.4100, L100.0100, L500.4050, [id number] #### [facility] [address] [place], [address] Platelets (Bld) [#/Vol] 321 10*3/uL Normal 150-450 [facility] Comment on above: Order Comment: Order Date: 07/27/23 Order Info: 0184-1 - CBCD Performed By: #### L 500.4100, L100.0100, L500.4050, [id number] #### [facility] [address] [place], [address] RBC (Bld) [#/Vol] 4.34 10*6/uL Low 4.6-6.2 [facility] Comment on above: Order Comment: Order Date: 07/27/23 Order Info: 0184-1 - CBCD Performed By: #### L 500.4100, L100.0100, L500.4050, [id number] #### [facility] [address] [place], [address] RDW SD 42.8 fl Normal 35.1-43.9 [facility] Comment on above: Order Comment: Order Date: 07/27/23 Order Info: 0184-1 - CBCD Performed By: #### L 500.4100, L100.0100, L500.4050, [id number] #### [facility] [address] [place], [address] WBC (Bld) [#/Vol] 8.3 10*3/uL Normal 4.4-11.0 [facility] Comment on above: Order Comment: Order Date: 07/27/23 Order Info: 0184-1 - CBCD Performed By: #### L 500.4100, L100.0100, L500.4050, [id number] #### [facility] [address] [place], [address] Comprehensive Metabolic Prof [facility] 07-27-2023 Albumin [Mass/Vol] 4.0 g/dL Normal 3.2-5.0 [facility] Comment on above: Order Comment: Order Date: 07/27/23 Order Info: 785- - CMP Order Info: - LIPID Order Info: 3 - TSH Performed By: #### L 500.4100, L100.0100, L500.4050, [id number] #### [facility] [address] [place], [address] Albumin/Globulin [Mass ratio] 1.0 {ratio} Normal 0.9-2.4 [facility] Comment on above: Order Comment: Order Date: 07/27/23 Order Info: [id number] - CMP Order Info: - LIPID Order Info: [id number] - TSH Performed By: #### L 500.4100, L100.0100, L500.4050, [id number] #### [facility] [address] [place], [address] ALK P 94 U/L Normal 45-117 [facility] Comment on above: Order Comment: Order Date: 07/27/23 Order Info: 07 - CMP Order Info: [id number] - LIPID Order Info: [id number] - TSH Performed By: #### L 500.4100, L100.0100, L500.4050, [id number] #### [facility] [address] [place], [address] ALT [Catalytic activity/Vol] 26 U/L Normal 16-61 [facility] Comment on above: Order Comment: Order Date: 07/27/23 Order Info: 0786 - CMP Order Info: [id number] - LIPID Order Info: 3 - TSH Performed By: #### L 500.4100, L100.0100, L500.4050, [id number] #### [facility] [address] [place], [address] AST [Catalytic activity/Vol] 22 U/L Normal 15-37 [facility] Comment on above: Order Comment: Order Date: 07/27/23 Order Info: [id number] - CMP Order Info: - LIPID Order Info: [id number] - TSH Performed By: #### L 500.4100, L100.0100, L500.4050, [id number] #### [facility] [address] [place], [address] Bilirubin [Mass/Vol] 0.40 mg/dL Normal 0.20-1.00 [facility] Comment on above: Order Comment: Order Date: 07/27/23 Order Info: [id number] - CMP Order Info: - LIPID Order Info: [id number] - TSH Result Comment: For patients on eltrombopag therapy, use of [place] TBIL is not recommended. Performed By: #### L 500.4100, L100.0100, L500.4050, [id number] #### [facility] [address] [place], [address] BUN/CRE 25.3 RATIO High 10-20 [facility] Comment on above: Order Comment: Order Date: 07/27/23 Order Info: [id number] - CMP Order Info: - LIPID Order Info: [id number] - TSH Performed By: #### L 500.4100, L100.0100, L500.4050, [id number] #### [facility] [address] [place], [address] CA,Total 9.2 mg/dL Normal 8.5-10.1 [facility] Comment on above: Order Comment: Order Date: 07/27/23 Order Info: [id number] - CMP Order Info: - LIPID Order Info: [id number] - TSH Performed By: #### L 500.4100, L100.0100, L500.4050, [id number] #### [facility] [address] [place], [address] Chloride [Moles/Vol] 109 mmol/L High 98-107 [facility] Comment on above: Order Comment: Order Date: 07/27/23 Order Info: 785-02 - CMP Order Info: [id number] - LIPID Order Info: [id number] - TSH Performed By: #### L 500.4100, L100.0100, L500.4050, [id number] #### [facility] [address] [place], [address] CO2 [Moles/Vol] 24.0 mmol/L Normal 21.0-32.0 [facility] Comment on above: Order Comment: Order Date: 07/27/23 Order Info: [id number] - CMP Order Info: - LIPID Order Info: [id number] - TSH Performed By: #### L 500.4100, L100.0100, L500.4050, [id number] #### [facility] [address] [place], [address] Creatinine [Mass/Vol] 1.46 mg/dL High 0.70-1.30 [facility] Comment on above: Order Comment: Order Date: 07/27/23 Order Info: [id number] - CMP Order Info: [id number] - LIPID Order Info: [id number] - TSH Result Comment: The validity of the calculated GFR GFRAA in patients over 70 years has not been determined. Clinical correlation is essential. Performed By: #### L 500.4100, L100.0100, L500.4050, L501.9520 #### [facility] [address] [place], [address] EST GFR - AA 61 mL/min Normal >60 [facility] Comment on above: Order Comment: Order Date: 07/27/23 Order Info: [id number] - CMP Order Info: [id number] - LIPID Order Info: [id number] - TSH Result Comment: Afri can Maltese GFR Calc Performed By: #### L 500.4100, L100.0100, L500.4050, L501.9520 #### [facility] [address] [place], [address] GAP 8 Normal 5-15 [facility] Comment on above: Order Comment: Order Date: 07/27/23 Order Info: 785- - CMP Order Info: [id number] - LIPID Order Info: [id number] - TSH Performed By: #### L 500.4100, L100.0100, L500.4050, L501.9520 #### [facility] [address] [place], [address] GFR/1.73 sq M.predicted among non-blacks MDRD (S/P/Bld) [Vol rate/Area] 51 mL/min/{1.73_m2} Low >60 [facility] Comment on above: Order Comment: Order Date: 07/27/23 Order Info: [id number] - CMP Order Info: - LIPID Order Info: 3 - TSH Result Comment: Non- GFR Calc Performed By: #### L 500.4100, L100.0100, L500.4050, L501.9520 #### [facility] [address] [place], [address] Globulin (S) [Mass/Vol] 4.1 g/dL Normal 2.2-4.2 [facility] Comment on above: Order Comment: Order Date: 07/27/23 Order Info: [id number] - CMP Order Info: [id number] - LIPID Order Info: 3015-3 - TSH Performed By: #### L 500.4100, L100.0100, L500.4050, L501.9520 #### [facility] [address] [place], [address] Glucose [Mass/Vol] 142 mg/dL High 74-106 [facility] Comment on above: Order Comment: Order Date: 07/27/23 Order Info: 785- - CMP Order Info: - LIPID Order Info: [id number] - TSH Result Comment: Fast ing Glucose result greater than or equal to 126 mg/dL suggests DIABETES MELLITUS per A.D.A. criteria. Performed By: #### L 500.4100, L100.0100, L500.4050, L501.9520 #### [facility] [address] [place], [address] Potassium [Moles/Vol] 4.2 mmol/L Normal 3.5-5.1 [facility] Comment on above: Order Comment: Order Date: 07/27/23 Order Info: [id number] - CMP Order Info: [id number] - LIPID Order Info: 3015-04 - TSH Performed By: #### L 500.4100, L100.0100, L500.4050, L501.9520 #### [facility] [address] [place], [address] Sodium [Moles/Vol] 141 mmol/L Normal 136-145 [facility] Comment on above: Order Comment: Order Date: 07/27/23 Order Info: [id number] - CMP Order Info: [id number] - LIPID Order Info: [id number] - TSH Performed By: #### L 500.4100, L100.0100, L500.4050, L501.9520 #### [facility] [address] [place], [address] T PROT 8.1 g/dL Normal 6.4-8.2 [facility] Comment on above: Order Comment: Order Date: 07/27/23 Order Info: [id number] - CMP Order Info: [id number] - LIPID Order Info: 3015-04 - TSH Performed By: #### L 500.4100, L100.0100, L500.4050, L501.9520 #### [facility] [address] [place], [address] Urea nitrogen [Mass/Vol] 37 mg/dL High 7-18 [facility] Comment on above: Order Comment: Order Date: 07/27/23 Order Info: [id number] - CMP Order Info: - LIPID Order Info: [id number] - TSH Performed By: #### L 500.4100, L100.0100, L500.4050, L501.9520 #### [facility] [address] [place], [address] Lipid Profileon 07-27-2023 Cholesterol [Mass/Vol] 106 mg/dL Normal 200 [facility] Comment on above: Order Comment: Order Date: 07/27/23 Order Info: [id number] - CMP Order Info: - LIPID Order Info: [id number] - TSH Result Comment: <200 mg/dL Desirable 200-240 mg/dL Borderline >240 mg/dL High Risk Performed By: #### L 500.4100, L100.0100, L500.4050, L501.9520 #### [facility] [address] [place], [address] Cholesterol in HDL [Mass/Vol] 50 mg/dL Normal [facility] Comment on above: Order Comment: Order Date: 07/27/23 Order Info: [id number] - CMP Order Info: - LIPID Order Info: [id number] - TSH Result Comment: The drugs N-Acetylcysteine and Metamizole may falsely depress this assay. Reference Range HDL <40 mg/dL Low HDL Cholesterol HDL >or= 60 mg/dL High HDL Cholesterol Performed By: #### L 500.4100, L100.0100, L500.4050, L501.9520 #### [facility] [address] [place], [address] Cholesterol in LDL [Mass/Vol] 40 mg/dL Normal 0-130 [facility] Comment on above: Order Comment: Order Date: 07/27/23 Order Info: 07 - CMP Order Info: [id number] - LIPID Order Info: 3 - TSH Performed By: #### L 500.4100, L100.0100, L500.4050, L501.9520 #### [facility] [address] [place], [address] Cholesterol in VLDL [Mass/Vol] 16 mg/dL Normal 5-40 [facility] Comment on above: Order Comment: Order Date: 07/27/23 Order Info: [id number] - CMP Order Info: [id number] - LIPID Order Info: [id number] - TSH Performed By: #### L 500.4100, L100.0100, L500.4050, L501.9520 #### [facility] [address] [place], [address] Triglyceride [Mass/Vol] 79 mg/dL Normal [facility] Comment on above: Order Comment: Order Date: 07/27/23 Order Info: [id number] - CMP Order Info: [id number] - LIPID Order Info: [id number] - TSH Result Comment: The drugs N-Acetylcysteine and Metamizole may falsely depress this assay. Serum Triglycerides Reference Interval Normal <150 mg/dL Borderline high 150 - 199 mg/dL High 200 - 499 mg/dL Very High > or = 500 mg/dL Performed By: #### L 500.4100, L100.0100, L500.4050, L501.9520 #### [facility] [address] [place], [address] Thyroid Stim Hormone (TSH)on 07-27-2023 TSH 1.76 uIU/mL Normal 0.358-3.74 [facility] Comment on above: Order Comment: Order Date: 07/27/23 Order Info: [id number] - CMP Order Info: [id number] - LIPID Order Info: [id number] - TSH Performed By: #### L 500.4100, L100.0100, L500.4050, L501.9520 #### [facility] [address] [place], [address] PT D/C Summary (1)on 024 PT D/C Summary (1) [facility] [address] [place] [address] / REHABILITATION SERVICES DISCHARGE SUMMARY MR#: [id number] Acct: [id number] Name: GUSTAVO PATTON Rep #: [id number] : 1950 72 From: Stephani Vila PT, Cert. MD Abreu, OCS Referring Dr.: SARAHI SOTO Status: REG RCR Insurance: MEDICARE PART A B [facility] Discharge Summary D/C summary: It has been my pleasure to treat GUSTAVO PATTON referred by SARAHI SOTO, with the diagnosis of Pt has L UE weakness for a total of 17 visit(s). Discharge Date: 07/17/23 Please see the following information for a summary of their discharge status. Subjective Subjective: Doing good best ever for years Overall Improvement % Improvement: 50 Objective Objective/Function: Neuro:Denies paresthesia/tingling ROM:AROM flexion 140 degree , abduction 145 ,ER 80 MMT: RTC 4/5 ,DELTOID 4/5 POSTURE: trunk forward rounded shoulder head forward Goals Goal 1:: Increase L UE strength x 1 grade to aid with work requirements Goal Progress: Goal Met Goal 2:: I with HEP Goal Progress: Goal Met Goal 3:: Patient to demonstrate 50% improvement with function and ADLS ( NEW GOAL) Goal Progress: Goal Met Goal 4:: Patient to improve quick dash by b3-5 points to improve QOL( NEW GOAL) Goal Progress: Goal Met Plan Plan: D/C D/C Information Discharge Comments: HEP d/c sentence: If there are questions or concerns regarding this patient's physical therapy, please feel free to call me at [phone]. Thank you for the referral of this patient. Sincerely, Stephani Vila, PT, Cert MDT, OCS Balance/Gait/Functional tests Balance/Special Test Scores Quick DASH Score: 15.9075 Improvement % Improvement: 50 07/17/23 1156 CC: Madhavi Chaudhry DO; SARAHI SOTO JLA Signed Normal [facility] Re-Evaluation - PT (1)on Re-Evaluation - PT (1) [facility] [address] [place] [address] / REEVALUATION / MEDICARE RECERTIFICATION PHYSICAL THERAPY MR#: [id number] Acct: [id number] Name: GUSTAVO PATTON Rep #: [id number] : 1950 72 From: Stephani Vila PT, Cert. MD Abreu, OCS Referring Dr.: SARAHI SOTO Status:REG RCR Insurance: MEDICARE PART A B [employer] Re-Evaluation Intro: SARAHI SOTO, It has been my pleasure to treat GUSTAVO PATTON over the last 9 visits for Pt has L UE weakness. Please see the progress note below for an update on the physical therapy plan of care! Subjective Subjective: Doing better overall making progress Objective Objective/Function: * Patient will continue o benefit from skilled PT with goals adjusted and appropriate* Neuro:Denies paresthesia/tingling ROM:AROM flexion 120 degree , abduction 115 ,ER 70 MMT: RTC 4/5 ,DELTOID 4-/5 POSTURE: trunk forward rounded shoulder head foreward Plan Plan Plan: PT INTERVENTIONS ROMPOSTURAL EX'S ,RTC /SCAPULAR STRENGTHENING Balance/Gait/Functional tests Balance/Special Test Scores Quick DASH Score: 54.5450 Goals Goals Goal 1:: Increase L UE strength x 1 grade to aid with work requirements Goal Time Frame: 4-6 Weeks Goal Progress: Progressing Goal 2:: I with HEP Goal Progress: Progressing Goal 3:: Patient to demonstrate 50% improvement with function and ADLS ( NEW GOAL) Goal Time Frame: 4-6 Weeks Goal 4:: Patient to improve quick dash by b3-5 points to improve QOL( NEW GOAL) Anticipated Interventions Anticipated Interventions Patient/Client Instruction: Educate patient on: Condition and Plan of Care For the Purpose of:: To improve self management Therapeutic Exercise to Include: Strength training, Endurance training, Active ROM and Scapular Strength/Stabilization For the Purpose of:: To improve muscle performance and motor function and To increase tolerance to activity/condition/posit ion Re-Evaluation Ending Re-evaluation ending: Please do not hesitate to contact me at [phone] by phone or if you have questions or concerns regarding this new plan of care! Sincerely, Stephani Vila PT, Cert MDT, OCS 06/15/23 1057 CC: Madhavi Chaudhry DO; SARAHI SOTO CLAUDIA Signed For Medicare only, by signing this I certify the plan of care. 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 - clopidogrel (PLAVIX) 75 mg tablet - loratadine (CLARITIN) 10 mg tablet Take by mouth. - pantoprazole DR (PROTONIX) 20 mg tablet Take 1 tablet by mouth every afternoon. - metoprolol succinate ER (TOPROL XL) 25 mg 24 hr tablet TAKE 1 TABLET BY MOUTH EVERY DAY - atorvastatin (LIPITOR) 40 mg tablet 1 TABLET BY ORAL/FEEDING TUBE ROUTE DAILY AT BEDTIME. - lisinopril 2.5 mg tablet Take 1 tablet by mouth once daily. - aspirin 81 mg chewable tablet 1 tablet by ORAL/FEEDING TUBE route once daily. - insulin glargine (LANTUS SOLOSTAR, BASAGLAR KWIKPEN) 100 unit/mL (3 mL) Inject 10 Units subcutaneously daily at bedtime. - insulin lispro (HUMALOG KWIKPEN) 100 unit/mL Inject 3 Units subcutaneously w MEALS. - metFORMIN (GLUCOPHAGE) 500 mg tablet TAKE 1 TAB TWICE DAILY FOR 2 WEEKS, THEN TAKE 2 TABS TWICE DAILY -------- Letter Text Normal [facility] Inital Evaluation (1) - PTon 05-17-2023 Inital Evaluation (1) - PT [facility] [address] [place] [address] [address] [place] [address] / REHABILITATION SERVICES INITIAL EVALUATION MR#: [id number] Acct: [id number] Name: GUSTAVO PATTON Rep #: [id number] : 1950 72 From: Kang Cartwright PT, ATC Referring Dr.: SARAHI SOTO Status: REG RCR Insurance: MEDICARE PART A B [facility] Patient's Visit Information Visit Information Visit Information: GUSTAVO PATTON is a 72 year old M referred to Physical Therapy by SARAHI SOTO with a diagnosis of Pt has L UE weakness. Date of Evaluation: 05/17/23 Physical Therapist: Kang Cartwright PT, ATC Visit Plan Frequency: 2-3x /Week Duration: 4-6 Weeks Plan: L UE strengthening, scap stab ex's, UBE, and HEP Subjective Subjective: Pt is a poor historian as his stroke has effected his speech. Trouble with communication CVA. Pt is unsure of the date, but notes it was several months ago. Pt notes he has L UE weakness as a result of his stroke. Pt denies any LE weakness at this time. Pt reports he has had 2 strokes to this date. Pt reports only his speech was effected by his first stroke, and now his L UE is what is effected. Pt reports he lives at home by himself. Pt reports he does have stairs that lead to his laundry room in the basement. Pt reports he has to negotiate stairs one step at a time. Pt reports he doesn't feel like his balance is off, and he denies a Hx of falls. Pt reports he is not really limited with IADL's secondary to his L UE weakness, but notes he feels like he is weak and would like to be stronger. 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 Pt is R hand dominant. Pt denies any pain this date. Objective Objective: Neuro: B UE and LE sensation is WNL to light touch. ROM: B UE and LE ROM is WNL when compared bilaterally. MMT: L UE is grossly 4-/5 throughout. All other B UE and LE strength is rated at 5/5 throughout Gait: Pt is able to ambulate 300 feet performing all FGA activity without difficulty. No difficulty with stair negotiation. Balance/Special Test Scores Quick DASH Score: 55.0000 Goals Goal 1:: Increase L UE strength x 1 grade to aid with work requirements Goal Time Frame: 4-6 Weeks Goal 2:: I with HEP Rehabilitation Potential Physical Therapy Diagnosis: Pt has L UE weakness secondary to residual effects from CVA Rehabilitation Potential: Good Anticipated Interventions Patient/Client Instruction: Educate patient on: Condition and Plan of Care For the Purpose of:: To improve self management Therapeutic Exercise to Include: Strength training, Endurance training, Active ROM and Scapular Strength/Stabilization For the Purpose of:: To improve muscle performance and motor function and To increase tolerance to activity/condition/posit ion Text: Thank you for the opportunity to evaluate your patient. For Medicare and Medicare HMO plans, please review the plan of care and approve it. It will need to be FAXED BACK to us at [phone] for Medicare purposes. For Medicare only, by signing this I certify the plan of care. Please let me know if there are questions or concerns regarding this plan of care. Physician Signature: Date: ____ 05/17/23 1542 CC: Madhavi Chaudhry DO; SARAHI SOTO [facility] Signed Normal [facility] CNPNon 05-11-2023 CNPN Telephone (OTNOCA) -------- GUSTAVO PATTON ([id number]) 1950 M Date Time Provider Department 05/11/23 CATHLEEN GOEL During your visit today, we recorded the following information about you: Cathleen Goel, OT/L 05/11/2023 1:12 PM Signed This therapist indicated that she could contact his sister after the behind the wheel assessment to indicate recommendations. Allergies As of Date: 05/11/2023 (No Known Allergies) Date Reviewed: 04/18/2023 Reviewed by: Fallon Steiner PA-C - Fully Assessed Reason for Visit: Results [95] Patient Update [1234] Cmt: This therapist called patient's sister who is DPOA and lives in [place] regarding Gustavo's recent clinical assessment results of driving skills and to ask if any significant changes as result of recent stroke. She indicated that there had not been as far as she is aware but did verbalize concerns related to his purchasing a new vehicle without any assist from another adult while she does feel he was taken advantage of which she worries about. She is hoping he does well BTW but fears future strokes. Prescriptions as of 05/11/2023 - SENNA-DOCUSATE SODIUM ORAL Take by mouth. - clopidogrel (PLAVIX) 75 mg tablet - loratadine (CLARITIN) 10 mg tablet Take by mouth. - pantoprazole DR (PROTONIX) 20 mg tablet Take 1 tablet by mouth every afternoon. - metoprolol succinate ER (TOPROL XL) 25 mg 24 hr tablet TAKE 1 TABLET BY MOUTH EVERY DAY - atorvastatin (LIPITOR) 40 mg tablet 1 TABLET BY ORAL/FEEDING TUBE ROUTE DAILY AT BEDTIME. - lisinopril 2.5 mg tablet Take 1 tablet by mouth once daily. - aspirin 81 mg chewable tablet 1 tablet by ORAL/FEEDING TUBE route once daily. - insulin glargine (LANTUS SOLOSTAR, BASAGLAR KWIKPEN) 100 unit/mL (3 mL) Inject 10 Units subcutaneously daily at bedtime. - insulin lispro (HUMALOG KWIKPEN) 100 unit/mL Inject 3 Units subcutaneously w MEALS. - metFORMIN (GLUCOPHAGE) 500 mg tablet TAKE 1 TAB TWICE DAILY FOR 2 WEEKS, THEN TAKE 2 TABS TWICE DAILY Problem List As Of Date 05/11/2023 Noted Resolved Stroke (cerebrum) ([facility]) [I63.9] 04/01/2021 Diabetes ([facility]) [E11.9] 04/01/2021 Deep vein thrombosis (DVT) of lower extremity (*04/02/2021 Dysphagia [R13.10] 04/02/2021 Cardiomyopathy ([facility]) [I42.9] 04/03/2021 Language impairment [F80.9] 05/10/2023 Encounter Status:Closed by CATHLEEN GOEL on 05/11/23 [facility] CNTHERAPYon 05-04-2023 CNTHERAPY OT/PT/Speech Visit (OTNOCA) -------- GUSTAVO PATTON ([id number]) 1950 M Date Time Provider Department 05/04/23 1:30 PM CATHLEEN GOEL Date Time Provider Department Center 05/04/2023 1:30 PM [id number], JULIE A [facility] N Reason for Visit: OT EVAL [748] Primary Visit Diagnosis:Language impairment [F80.9] Other Visit Diagnosis:Cerebrovascula r accident (CVA), unspecified mechanism (HCC) [I63.9] Allergies As of Date: 05/04/2023 (No Known Allergies) Date Reviewed: 04/18/2023 Reviewed by: Fallon Steiner PA-C - Fully Assessed Prescriptions as of 05/10/2023 - SENNA-DOCUSATE SODIUM ORAL Take by mouth. - clopidogrel (PLAVIX) 75 mg tablet - loratadine (CLARITIN) 10 mg tablet Take by mouth. - pantoprazole DR (PROTONIX) 20 mg tablet Take 1 tablet by mouth every afternoon. - metoprolol succinate ER (TOPROL XL) 25 mg 24 hr tablet TAKE 1 TABLET BY MOUTH EVERY DAY - atorvastatin (LIPITOR) 40 mg tablet 1 TABLET BY ORAL/FEEDING TUBE ROUTE DAILY AT BEDTIME. - lisinopril 2.5 mg tablet Take 1 tablet by mouth once daily. - aspirin 81 mg chewable tablet 1 tablet by ORAL/FEEDING TUBE route once daily. - insulin glargine (LANTUS SOLOSTAR, BASAGLAR KWIKPEN) 100 unit/mL (3 mL) Inject 10 Units subcutaneously daily at bedtime. - insulin lispro (HUMALOG KWIKPEN) 100 unit/mL Inject 3 Units subcutaneously w MEALS. - metFORMIN (GLUCOPHAGE) 500 mg tablet TAKE 1 TAB TWICE DAILY FOR 2 WEEKS, THEN TAKE 2 TABS TWICE DAILY -------- [facility] Basophil percentageOrdered B y: Madhavi Chaudhry on 01-05-2023 Basophil percentage < 1.0 mg/dL 0.70-1.30 [facility] No Panel InformationOrdered By: Madhavi Chaudhry on 01-05-2023 Bedside Estimated GFR (eGFR) > 60.0000 mL/min >60 [facility] Basophil percentageOrdered B y: Ayla Turner on 12-14-2022 WBC (Bld) [#/Vol] 5.7 10*3/uL 4.4-11.0 [facility] Blood erythrocytes count (nu mber/volume)Ordered By: Ayla Turner on 12-14-2022 RBC (Bld) [#/Vol] 4.31 10*6/uL 4.6-6.2 [facility] Blood hemoglobin measurement (mass/volume)Ordered By: Ayla Turner on 12-14-2022 Hemoglobin (Bld) [Mass/Vol] 12.9 g/dL 13.0-16.5 [facility] Blood platelet mean volumeOr dered By: Ayla Turner on 12-14-2022 Platelet mean volume (Bld) [Entitic vol] 12.2 fL 6.2-12.0 [facility] Determination of erythrocyte mean corpuscular volume (MCV)Ordered By: Aylakatelynn Turner on 12-14-2022 MCV (RBC) [Entitic vol] 97.0 fL 80-94 [facility] Hematocrit Auto (Bld) [Volum e fraction]Ordered By: Ayla Turner on 12-14-2022 Hematocrit (Bld) [Volume fraction] 41.8 % 40-54 [facility] - Hematology and Cell countsOrdered By: Ayla Turner on 12-14-2022 Erythrocyte distribution width (RBC) [Entitic vol] 44.0 fL 35.1-43.9 [facility] Erythrocyte distribution width (RBC) [Ratio] 12.2 % 11.6-14.6 [facility] MCH (RBC) [Entitic mass] 29.9 pg 27.0-32.0 [facility] MCHC Auto (RBC) [Mass/Vol]Or dered By: Ayla Statprashant on 12-14-2022 MCHC (RBC) [Mass/Vol] 30.9 g/dL 32-36 [facility] Platelets bldOrdered By: Narayan Turner on 12-14-2022 Platelets (Bld) [#/Vol] 273 10*3/uL 150-450 [facility] Blood hemoglobin measurement (mass/volume)Ordered By: Connie He on 12-01-2022 Hemoglobin (Bld) [Mass/Vol] 11.4 g/dL 13.0-16.5 [facility] Glucose Glucometer (BldC) [M ass/Vol]Ordered By: Connie He on 12-01-2022 Glucose [Mass/Vol] 108 mg/dL 74-106 [facility] Comment on above: MANAGEMENT OF PATIEN T CARE PER NURSING PROTOCOL Hematocrit Auto (Bld) [Volum e fraction]Ordered By: Connie He on 12-01-2022 Hematocrit (Bld) [Volume fraction] 35.9 % 40-54 [facility] Lower GI hemoglobin IA Ql (S tl)Ordered By: Connie He on 2022 Stool Occult Blood (DEJAH) Positive [facility] Basophil percentageOrdered B y: Jerod Cavazos on 11-23-2022 Chloride [Moles/Vol] 104 mmol/L 98-107 [facility] Glucose [Mass/Vol] 100 mg/dL 74-106 [facility] Comment on above: Fasting Glucose resu lt from 100 to 125 mg/dL suggests IMPAIRED HOMEOSTASIS per A.D.A. criteria. Potassium [Moles/Vol] 3.8 mmol/L 3.5-5.1 [facility] Sodium [Moles/Vol] 137 mmol/L 136-145 [facility] WBC (Bld) [#/Vol] 7.2 10*3/uL 4.4-11.0 [facility] Cholesterol [Mass/Vol] 97 mg/dL <200 [facility] Comment on above: <200 mg/dL Desirable 200-240 mg/dL Borderline >240 mg/dL High Risk Triglyceride [Mass/Vol] 77 mg/dL <199 [facility] Comment on above: The drugs N-Acetylcy steine and Metamizole may falsely depress this assay.Serum Triglycerides Reference Interval Normal <150 mg/dL Borderline high 150 - 199 mg/dL High 200 - 499 mg/dL Very High > or = 500 mg/dL Blood erythrocytes count (nu mber/volume)Ordered By: Jerod Cavazos on 11-23-2022 RBC (Bld) [#/Vol] 4.05 10*6/uL 4.6-6.2 [facility] Blood hemoglobin measurement (mass/volume)Ordered By: Jerod Cavazos on 11-23-2022 Hemoglobin (Bld) [Mass/Vol] 12.5 g/dL 13.0-16.5 [facility] Blood platelet mean volumeOr dered By: Jerod Cavazos on 11-23-2022 Platelet mean volume (Bld) [Entitic vol] 10.5 fL 6.2-12.0 [facility] Determination of erythrocyte mean corpuscular volume (MCV)Ordered By: Jerod Cavazos on 11-23-2022 MCV (RBC) [Entitic vol] 93.3 fL 80-94 [facility] Hematocrit Auto (Bld) [Volum e fraction]Ordered By: Jerod Cavazos on 11-23-2022 Hematocrit (Bld) [Volume fraction] 37.8 % 40-54 [facility] - Chemistry and C hemistry - challengeOrdered By: Jerod Cavazos on 11-23-2022 CO2 [Moles/Vol] 27.0 mmol/L 21.0-32.0 [facility] Urea nitrogen/Creatinine [Mass ratio] 20.4 mg/mg 10-20 [facility] - Hematology and Cell countsOrdered By: Jerod Cavazos on 11-23-2022 Erythrocyte distribution width (RBC) [Entitic vol] 43.4 fL 35.1-43.9 [facility] Erythrocyte distribution width (RBC) [Ratio] 12.6 % 11.6-14.6 [facility] MCH (RBC) [Entitic mass] 30.9 pg 27.0-32.0 [facility] MCHC Auto (RBC) [Mass/Vol]Or dered By: Jerod Cavazos on 11-23-2022 MCHC (RBC) [Mass/Vol] 33.1 g/dL 32-36 [facility] No Panel InformationOrdered By: Jerod Cavazos on 11-23-2022 Estimated Creatinine Clearance Calc 64.83 ml/min [facility] Estimated GFR (MDRD) Amer 87 mL/min >60 [facility] Comment on above: GFR Calc Estimated GFR (MDRD) Non-Af Amer 72 mL/min >60 [facility] Comment on above: Non- GFR Calc Platelets bldOrdered By: Alem codie Dirk on 11-23-2022 Platelets (Bld) [#/Vol] 280 10*3/uL 150-450 [facility] Serum or plasma calcium makenzie urement (mass/volume)Ordered By: Jerod Cavazos on 11-23-2022 Calcium [Mass/Vol] 8.9 mg/dL 8.5-10.1 [facility] Serum or plasma cholesterol in HDL measurement (mass/volume)Ordered By: Jerod Cavazos on 11-23-2022 Cholesterol in HDL [Mass/Vol] 51 mg/dL >40 [facility] Comment on above: The drugs N-Acetylcy steine and Metamizole may falsely depress this assay. Reference Range HDL <40 mg/dL Low HDL Cholesterol HDL >or= 60 mg/dL High HDL Cholesterol Serum or plasma cholesterol in VLDL measurement (mass/volume)Ordered By: Jerod Cavazos on 11-23-2022 Cholesterol in VLDL [Mass/Vol] 15 mg/dL 5-40 [facility] Serum or plasma creatinine m easurement (mass/volume)Ordered By: Jerod Cavazos on 11-23-2022 Creatinine [Mass/Vol] 1.08 mg/dL 0.70-1.30 [facility] Comment on above: The validity of the calculated GFR & GFRAA in patients over 70 years has not been determined. Clinical correlation is essential. Serum or plasma low density lipoprotein (LDL) cholesterol measurement (mass/volume)Ordered By: Jerod Cavazos on 11-23-2022 Cholesterol in LDL [Mass/Vol] 31 mg/dL 0-130 [facility] Serum or plasma urea nitroge n measurement (mass/volume)Ordered By: Jerod Cavazos on 11-23-2022 Urea nitrogen [Mass/Vol] 22 mg/dL 7-18 [facility] Thin prep Papanicolaou smear with manual screeningOrdered By: Jerod Cavazos on 11-23-2022 Thin prep Papanicolaou smear with manual screening 6 5-15 [facility] Absolute lymphocyte countOrd ered By: Cristhian Carlos on 11-22-2022 Lymphocytes Auto (Unsp spec) [#/Vol] 1.82 10*3/uL 0.83-4.51 [facility] Basophil percentageOrdered B y: Cristhian Breanna on 11-22-2022 Basophils/100 WBC (Bld) 0.6 % 0-1 [facility] Chloride [Moles/Vol] 105 mmol/L 98-107 [facility] Eosinophils/100 WBC (Bld) 1.1 % 0-5 [facility] Glucose [Mass/Vol] 149 mg/dL 74-106 [facility] Comment on above: Fasting Glucose resu lt greater than or equal to 126 mg/dL suggests DIABETES MELLITUS per A.D.A. criteria. Neutrophils (Bld) [#/Vol] 6.9 10*3/uL 2.0-7.7 [facility] Neutrophils/100 WBC (Bld) 70.3 % 47-70 [facility] Potassium [Moles/Vol] 3.9 mmol/L 3.5-5.1 [facility] Sodium [Moles/Vol] 139 mmol/L 136-145 [facility] WBC (Bld) [#/Vol] 9.9 10*3/uL 4.4-11.0 [facility] Blood erythrocytes count (nu mber/volume)Ordered By: Cristhian Carlos on 11-22-2022 RBC (Bld) [#/Vol] 4.00 10*6/uL 4.6-6.2 [facility] Blood hemoglobin measurement (mass/volume)Ordered By: Cristhian Carlos on 11-22-2022 Hemoglobin (Bld) [Mass/Vol] 12.1 g/dL 13.0-16.5 [facility] Blood lymphocytes/100 leukoc ytesOrdered By: Cristhian Carlos on 11-22-2022 Lymphocytes/100 WBC (Bld) 18.5 % 19-41 [facility] Blood monocytes/100 leukocyt esOrdered By: Cristhian Carlos on 11-22-2022 Monocytes/100 WBC (Bld) 9.3 % 0-10 [facility] Blood platelet mean volumeOr dered By: Cristhian Carlos on 11-22-2022 Platelet mean volume (Bld) [Entitic vol] 10.5 fL 6.2-12.0 [facility] Determination of erythrocyte mean corpuscular volume (MCV)Ordered By: Cristhian Carlos on 11-22-2022 MCV (RBC) [Entitic vol] 95.3 fL 80-94 [facility] Hematocrit Auto (Bld) [Volum e fraction]Ordered By: Cristhian Carlos on 11-22-2022 Hematocrit (Bld) [Volume fraction] 38.1 % 40-54 [facility] INR in Blood by Coagulation assayOrdered By: Cristhian Carlos on 11-22-2022 INR Coag (Bld) [Relative time] 1.1 {INR} [facility] Laboratory - Chemistry and C hemistry - challengeOrdered By: Cristhian Carlos on 11-22-2022 CO2 [Moles/Vol] 26.0 mmol/L 21.0-32.0 [facility] Urea nitrogen/Creatinine [Mass ratio] 21.5 mg/mg 10-20 [facility] Laboratory - CoagulationOrde red By: Cristhian Carlos on 11-22-2022 aPTT Coag (Bld) [Time] 25.5 s 24.1-36.2 [facility] PT Coag (PPP) [Time] 13.7 s 11.7-14.9 [facility] Laboratory - Hematology and Cell countsOrdered By: Cristhian Carlos on 11-22-2022 Erythrocyte distribution width (RBC) [Entitic vol] 44.0 fL 35.1-43.9 [facility] Erythrocyte distribution width (RBC) [Ratio] 12.6 % 11.6-14.6 [facility] Immature granulocytes/100 WBC (Bld) 0.200 % 0.0-0.9 [facility] Comment on above: IG% - Immature Granu locytes (promyelocytes, myelocytes and metamyelocytes) > 1% indicates that a LEFT SHIFT is Present. MCH (RBC) [Entitic mass] 30.3 pg 27.0-32.0 [facility] Nucleated RBC/100 WBC (Bld) [Ratio] 0 % 0-5 [facility] MCHC Auto (RBC) [Mass/Vol]Or dered By: Cristhian Carlos on 11-22-2022 MCHC (RBC) [Mass/Vol] 31.8 g/dL 32-36 [facility] No Panel InformationOrdered By: Cristhian Carlos on 11-22-2022 Estimated Creatinine Clearance Calc 53.32 ml/min [facility] Estimated GFR (MDRD) Amer 67 mL/min >60 [facility] Comment on above: GFR Calc Estimated GFR (MDRD) Non-Af Amer 56 mL/min >60 [facility] Comment on above: Non- GFR Calc Troponin I High Sensitivity 23 pg/mL 3.0-78.0 [facility] Comment on above: Please Note: New Debbie t Units and Gender Specific Reference Ranges. For more information see Policy Stat Procedure [place] High Sensitivity Troponin (TNIH) and attachments. Platelets bldOrdered By: Winston Carlos on 11-22-2022 Platelets (Bld) [#/Vol] 298 10*3/uL 150-450 [facility] Serum or plasma calcium makenzie urement (mass/volume)Ordered By: Cristhian Carlos on 11-22-2022 Calcium [Mass/Vol] 9.3 mg/dL 8.5-10.1 [facility] Serum or plasma creatinine m easurement (mass/volume)Ordered By: Cristhian Carlos on 11-22-2022 Creatinine [Mass/Vol] 1.35 mg/dL 0.70-1.30 [facility] Comment on above: The validity of the calculated GFR & GFRAA in patients over 70 years has not been determined. Clinical correlation is essential. Serum or plasma urea nitroge n measurement (mass/volume)Ordered By: Cristhian Carlos on 11-22-2022 Urea nitrogen [Mass/Vol] 29 mg/dL 7-18 [facility] Thin prep Papanicolaou smear with manual screeningOrdered By: Cristhian Carlos on 11-22-2022 Thin prep Papanicolaou smear with manual screening 8 5-15 [facility] 09-29-2022 CNCO Letter Text Letter Text Normal [facility] CNCOon 07-19-2022 CNCO Letter Text Letter Text Normal [facility] CNPNon 05-20-2022 CNPN Telephone (RosalindMARISSA) -------- GUSTAVO PATTON ([id number]) 1950 M Date Time Provider Department 05/20/22 VIKASH MARIN During your visit today, we recorded the following information about you: Celina Marshall LPN 05/20/2022 7:10 AM Signed Last seen 05/12/2021. Patient missed appointment scheduled for 08/11/2021. Please call patient with over due appointment. AGATA Charles 05/20/2022 9:08 AM Signed Pt has been scheduled for follow up with Dr. Marin on 08/26/2022 at 10am. I LVM and sent reminder letter. Thank you, Liliana Batista Allergies As of Date: 05/20/2022 (No Known Allergies) Date Reviewed: 01/13/2022 Reviewed by: Vita Colin MD - Fully Assessed Reason for Visit: Appointment [186] Prescriptions as of 05/20/2022 - metoprolol succinate ER (TOPROL XL) 25 mg 24 hr tablet Take 1 tablet by mouth once daily. - lisinopril 2.5 mg tablet Take 1 tablet by mouth once daily. - atorvastatin (LIPITOR) 40 mg tablet 1 tablet by ORAL/FEEDING TUBE route daily at bedtime. - aspirin 81 mg chewable tablet 1 tablet by ORAL/FEEDING TUBE route once daily. - insulin glargine (LANTUS SOLOSTAR, BASAGLAR KWIKPEN) 100 unit/mL (3 mL) Inject 10 Units subcutaneously daily at bedtime. - insulin lispro (HUMALOG KWIKPEN) 100 unit/mL Inject 3 Units subcutaneously w MEALS. - metFORMIN (GLUCOPHAGE) 500 mg tablet TAKE 1 TAB TWICE DAILY FOR 2 WEEKS, THEN TAKE 2 TABS TWICE DAILY Facility-Administered Medications as of 05/20/2022 - perflutren lipid microspheres 1.3 mL in NaCl (PF) 0.9% 10 mL injection (DEFINITY) Problem List As Of Date 05/20/2022 Noted Resolved Stroke (cerebrum) (HCC) [I63.9] 04/01/2021 Diabetes (HCC) [E11.9] 04/01/2021 Deep vein thrombosis (DVT) of lower extremity (*04/02/2021 Dysphagia [R13.10] 04/02/2021 Cardiomyopathy (HCC) [I42.9] 04/03/2021 Encounter Status:Closed by CELINA MARSHALL on 05/20/22 [facility] Absolute lymphocyte countOrd ered By: Ayla Statprashant on 04-25-2022 Lymphocytes Auto (Unsp spec) [#/Vol] 1.79 10*3/uL 0.83-4.51 [facility] Basophil percentageOrdered B y: Ayla Statprashant on 04-25-2022 Basophils/100 WBC (Bld) 1.3 % 0-1 [facility] Bilirubin [Mass/Vol] 0.60 mg/dL 0.20-1.00 [facility] Comment on above: For patients on eltr ombopag therapy, use of [place] TBIL is not recommended. Chloride [Moles/Vol] 104 mmol/L 98-107 [facility] Cholesterol [Mass/Vol] 121 mg/dL <200 [facility] Comment on above: <200 mg/dL Desirable 200-240 mg/dL Borderline >240 mg/dL High Risk Eosinophils/100 WBC (Bld) 3.2 % 0-5 [facility] Glucose [Mass/Vol] 125 mg/dL 74-106 [facility] Comment on above: Fasting Glucose resu lt from 100 to 125 mg/dL suggests IMPAIRED HOMEOSTASIS per A.D.A. criteria. Neutrophils (Bld) [#/Vol] 5.7 10*3/uL 2.0-7.7 [facility] Neutrophils/100 WBC (Bld) 66.2 % 47-70 [facility] Potassium [Moles/Vol] 3.8 mmol/L 3.5-5.1 [facility] Protein [Mass/Vol] 7.9 g/dL 6.4-8.2 [facility] Sodium [Moles/Vol] 139 mmol/L 136-145 [facility] Triglyceride [Mass/Vol] 92 mg/dL <199 [facility] Comment on above: The drugs N-Acetylcy steine and Metamizole may falsely depress this assay.Serum Triglycerides Reference Interval Normal <150 mg/dL Borderline high 150 - 199 mg/dL High 200 - 499 mg/dL Very High > or = 500 mg/dL WBC (Bld) [#/Vol] 8.7 10*3/uL 4.4-11.0 [facility] Blood erythrocytes count (nu mber/volume)Ordered By: Ayla Turner on 04-25-2022 RBC (Bld) [#/Vol] 4.20 10*6/uL 4.6-6.2 [facility] Blood hemoglobin measurement (mass/volume)Ordered By: Ayla Turner on 04-25-2022 Hemoglobin (Bld) [Mass/Vol] 13.1 g/dL 13.0-16.5 [facility] Blood lymphocytes/100 leukoc ytesOrdered By: Ayla Turner on 04-25-2022 Lymphocytes/100 WBC (Bld) 20.6 % 19-41 [facility] Blood monocytes/100 leukocyt esOrdered By: Aylakatelynn Turner on 04-25-2022 Monocytes/100 WBC (Bld) 8.6 % 0-10 [facility] Blood platelet mean volumeOr dered By: Aylakatelynn Turner on 04-25-2022 Platelet mean volume (Bld) [Entitic vol] 10.9 fL 6.2-12.0 [facility] Determination of erythrocyte mean corpuscular volume (MCV)Ordered By: Ayla Turner on 04-25-2022 MCV (RBC) [Entitic vol] 96.9 fL 80-94 [facility] Hematocrit Auto (Bld) [Volum e fraction]Ordered By: Aylakatelynn Turner on 04-25-2022 Hematocrit (Bld) [Volume fraction] 40.7 % 40-54 [facility] Laboratory - Chemistry and C hemistry - challengeOrdered By: Ayla Turner on 04-25-2022 ALP [Catalytic activity/Vol] 93 U/L 45-117 [facility] ALT [Catalytic activity/Vol] 116 U/L 16-61 [facility] CO2 [Moles/Vol] 29.0 mmol/L 21.0-32.0 [facility] Globulin (S) [Mass/Vol] 3.9 g/dL 2.2-4.2 [facility] Urea nitrogen/Creatinine [Mass ratio] 19.1 mg/mg 10-20 [facility] Laboratory - Hematology and Cell countsOrdered By: Ayla Turner on 04-25-2022 Erythrocyte distribution width (RBC) [Entitic vol] 44.7 fL 35.1-43.9 [facility] Erythrocyte distribution width (RBC) [Ratio] 12.6 % 11.6-14.6 [facility] Immature granulocytes/100 WBC (Bld) 0.100 % 0.0-0.9 [facility] Comment on above: IG% - Immature Granu locytes (promyelocytes, myelocytes and metamyelocytes) > 1% indicates that a LEFT SHIFT is Present. MCH (RBC) [Entitic mass] 31.2 pg 27.0-32.0 [facility] Nucleated RBC/100 WBC (Bld) [Ratio] 0 % 0-5 [facility] MCHC Auto (RBC) [Mass/Vol]Or dered By: Ayla Turner on 04-25-2022 MCHC (RBC) [Mass/Vol] 32.2 g/dL 32-36 [facility] No Panel InformationOrdered By: Ayla Turner on 04-25-2022 Estimated GFR (MDRD) Amer 85 mL/min >60 [facility] Comment on above: GFR Calc Estimated GFR (MDRD) Non-Af Amer 71 mL/min >60 [facility] Comment on above: Non- GFR Calc Prostate Specific Antigen Screen 1.30 ng/mL 0.00-4.00 [facility] Comment on above: This test was perfor med using the TPSA assay method for [email or web address] chemistry system. Values obtained with differentassay methods cannot be used interchangably.When changing PSA assays in the course of monitoring apatient, additional sequential testing should be carriedout to confirm baseline values. Platelets bldOrdered By: Narayan Turner on 04-25-2022 Platelets (Bld) [#/Vol] 392 10*3/uL 150-450 [facility] Serum or plasma albumin makenzie urement (mass/volume)Ordered By: Ayla Turner on 04-25-2022 Albumin [Mass/Vol] 4.0 g/dL 3.2-5.0 [facility] Serum or plasma albumin/glob ulin mass ratioOrdered By: Ayla Statyamilelesly on 04-25-2022 Albumin/Globulin [Mass ratio] 1.0 {ratio} 0.9-2.4 [facility] Serum or plasma calcium makenzie urement (mass/volume)Ordered By: Ayla Statprashant on 04-25-2022 Calcium [Mass/Vol] 9.5 mg/dL 8.5-10.1 [facility] Serum or plasma cholesterol in HDL measurement (mass/volume)Ordered By: Ayla Turner on 04-25-2022 Cholesterol in HDL [Mass/Vol] 60 mg/dL >40 [facility] Comment on above: The drugs N-Acetylcy steine and Metamizole may falsely depress this assay. Reference Range HDL <40 mg/dL Low HDL Cholesterol HDL >or= 60 mg/dL High HDL Cholesterol Serum or plasma cholesterol in VLDL measurement (mass/volume)Ordered By: Ayla Turner on 04-25-2022 Cholesterol in VLDL [Mass/Vol] 18 mg/dL 5-40 [facility] Serum or plasma creatinine m easurement (mass/volume)Ordered By: Ayla Turner on 04-25-2022 Creatinine [Mass/Vol] 1.10 mg/dL 0.70-1.30 [facility] Comment on above: The validity of the calculated GFR & GFRAA in patients over 70 years has not been determined. Clinical correlation is essential. Serum or plasma low density lipoprotein (LDL) cholesterol measurement (mass/volume)Ordered By: Ayla Turner on 04-25-2022 Cholesterol in LDL [Mass/Vol] 43 mg/dL 0-130 [facility] Serum or plasma urea nitroge n measurement (mass/volume)Ordered By: Ayla Statyamilelesly on 04-25-2022 Urea nitrogen [Mass/Vol] 21 mg/dL 7-18 [facility] Thin prep Papanicolaou smear with manual screeningOrdered By: Ayla Statprashant 04-25-2022 Thin prep Papanicolaou smear with manual screening 56 U/L 15-37 [facility] Thin prep Papanicolaou smear with manual screening 6 5-15 [facility] Whole blood hemoglobin A1c/t otal hemoglobin ratio (mass fraction)Ordered By: Ayla Turner on 04-25-2022 HbA1c (Bld) [Mass fraction] 6.0 % 3.8-5.6 [facility] Comment on above: Normal < 5.7 % Predi abetic 5.7 - 6.4 % Diabetic >or= 6.5 % Please note range changes. [place] 01-14-2022 MARIANAN Telephone (NESLBA) -------- GUSTAVO PATTON ([id number]) 1950 M Date Time Provider Department 01/14/22 JESE MANLEY JR During your visit today, we recorded the following information about you: Obinna Johansen LPN 01/14/2022 11:12 AM Signed Zhanna with [facility] called and requested order for PT for pt be faxed to them FAX: [phone]. Identified pt with name and date of . Done. Obinna Johansen LPN Allergies As of Date: 01/14/2022 (No Known Allergies) Date Reviewed: 01/13/2022 Reviewed by: Vita Colin MD - Fully Assessed Reason for Visit: Fax order to out side [Other] Prescriptions as of 01/14/2022 - metoprolol succinate ER (TOPROL XL) 25 mg 24 hr tablet Take 1 tablet by mouth once daily. - lisinopril 2.5 mg tablet Take 1 tablet by mouth once daily. - atorvastatin (LIPITOR) 40 mg tablet 1 tablet by ORAL/FEEDING TUBE route daily at bedtime. - aspirin 81 mg chewable tablet 1 tablet by ORAL/FEEDING TUBE route once daily. - insulin glargine (LANTUS SOLOSTAR, BASAGLAR KWIKPEN) 100 unit/mL (3 mL) Inject 10 Units subcutaneously daily at bedtime. - insulin lispro (HUMALOG KWIKPEN) 100 unit/mL Inject 3 Units subcutaneously w MEALS. - metFORMIN (GLUCOPHAGE) 500 mg tablet TAKE 1 TAB TWICE DAILY FOR 2 WEEKS, THEN TAKE 2 TABS TWICE DAILY Facility-Administered Medications as of 01/14/2022 - perflutren lipid microspheres 1.3 mL in NaCl (PF) 0.9% 10 mL injection (DEFINITY) Problem List As Of Date 01/14/2022 Noted Resolved Stroke (cerebrum) (HCC) [I63.9] 04/01/2021 Diabetes (HCC) [E11.9] 04/01/2021 Deep vein thrombosis (DVT) of lower extremity (*04/02/2021 Dysphagia [R13.10] 04/02/2021 Cardiomyopathy ([facility]) [I42.9] 04/03/2021 Encounter Status:Closed by [facility]INNA [facility]HANSEN [facility] Office Visit (AGMIL) -------- GUSTAVO PATTON ([id number]) 1950 M Date Time Provider Department 01/13/22 10:30 AM VITA COLIN During your visit today, we recorded the following information about you: Pulse Respiration Blood pressure Weight 92/minute 16/minute 118/64 63.8 kg Height 1.778 m Vita Colin MD 01/13/2022 10:55 AM Signed Gustavo Mirlande Patton is a 71 year old male presents for evaluation of DVT. He was actually referred to vascular medidince, which we discussed that I am not, but he would have to go to [facility] or [facility]. When talking to him, he has fairly limited understanding of what is going on and why he is here. His biggest question was if I was going to help him get a drivers licences and who he needed to see to get that. 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 There is suboptimal visualization of the right calf veins. Possible short segment of nonocclusive thrombus versus slow flow within the mid left femoral vein. He had a repeat US done 12/29/21 that showed: RIGHT SIDE - DEEP VEINS Negative for acute deep vein thrombosis. 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 Chronic occlusion of distal femoral vein. Chronic post-thrombotic change in the popliteal vein. Chronic occlusion. The left side was negative. We discussed the natural history of DVT as well as typical treatment and that DVT can resolve completely, partially, or not at all, but that once they are out of the actue phase, they tend to be less dangerous as far as PE goes. He should use compression and elevation for symtom control. Though he really has minimal evidence of leg swelling. He does not appear to be on anticoagulation currrently, only asa. SYMPTOMS: asymptomatic HISTORIES: PAST MEDICAL HISTORY Diagnosis Date Diabetes mellitus (HCC) Diastolic heart failure (HCC) DVT of lower extremity (deep venous thrombosis) (HCC) Dysphagia HTN (hypertension) Primary cardiomyopathy (HCC) Stroke (cerebrum) (HCC) PAST SURGICAL HISTORY Procedure Laterality Date NONE Social History Tobacco Use Smoking status: Never Smokeless tobacco: Never Substance Use Topics Alcohol use: Never Drug use: Never MEDICATIONS: Current Outpatient Medications Medication Sig metoprolol succinate ER (TOPROL XL) 25 mg 24 hr tablet Take 1 tablet by mouth once daily. lisinopril 2.5 mg tablet Take 1 tablet by mouth once daily. atorvastatin (LIPITOR) 40 mg tablet 1 tablet by ORAL/FEEDING TUBE route daily at bedtime. aspirin 81 mg chewable tablet 1 tablet by ORAL/FEEDING TUBE route once daily. metFORMIN (GLUCOPHAGE) 500 mg tablet TAKE 1 TAB TWICE DAILY FOR 2 WEEKS, THEN TAKE 2 TABS TWICE DAILY insulin glargine (LANTUS SOLOSTAR, BASAGLAR KWIKPEN) 100 unit/mL (3 mL) Inject 10 Units subcutaneously daily at bedtime. (Patient not taking: Reported on 01/13/2022) insulin lispro (HUMALOG KWIKPEN) 100 unit/mL Inject 3 Units subcutaneously w MEALS. (Patient not taking: Reported on 01/13/2022) Current Facility-Administered Medications Medication Dose Route Frequency perflutren lipid microspheres 1.3 mL in NaCl (PF) 0.9% 10 mL injection (DEFINITY) INTRAVENOUS DIRECTED PRN ALLERGIES:ALLERGIES No Known Allergies REVIEW OF SYSTEMS: All other ROS: negative PHYSICAL EXAM: General appearance: healthy, well nourished, in no acute distress. Skin: No lesions, rashes or ulcerations; normal color and turgor. Pulmonary: breathing unlabored on RA Lower Extremities: Feet and toes warm Negative edema Negative Ulcers Good capillary refill Neuro: Awake, alert, and oriented., CN II-XII grossly intact. , sensation grossly in tact IMPRESSION: Pt with chronic DVT PLAN: No indication for surgical therapy Compression and elevation for symptom control. Follow up prn Vita Colin MD I spent 30 minutes in the visit, with more than 50% of the total [id number] time of the visit in counseling / coordination of care. Referring Provider: JESE MANLEY JR [[id number]] Allergies As of Date: 01/13/2022 (No Known Allergies) Date Reviewed: 01/13/2022 Reviewed by: Vita Colin MD - Fully Assessed Reason for Visit: Venous Thrombus [Other] Cmt: Gustavo is here for DVT Rfd by Dr. Tidwell Visit Diagnosis:Deep vein thrombosis (DVT) of femoral vein, unspecified chronicity, unspecified laterality (HCC) [I82.419] Order(s):CONSULT TO VASCULAR MEDICINE [971992] Order #: [id number]: 1 Prescriptions as of 01/13/2022 - metoprolol succinate ER (TOPROL XL) 25 mg 24 hr tablet Take 1 tablet by mouth once daily. - lisinopril 2.5 mg tablet Take 1 tablet by mouth once daily. - atorvastatin (LIPITOR) 40 mg tablet 1 tablet by ORAL/FEEDING TUBE route daily at bedtime. - aspirin 81 mg chewable tablet 1 tablet by ORAL/FEEDING TUBE route on (more content not included)... Normal [facility] US LEG VEIN DVT KRUNAL VAS LABo n 12-29-2021 [facility] ECHO WITH AGITATED SALINE CO NTRASTon 12-27-2021 [facility] LVEF ECHO WITH AGITATED SALI NE CONTRASTon 12-27-2021 LV Ejection Fraction 64 % [facility] CT BRAIN WO IVCONon 12-25-19 [facility] Basophil percentageon 2021 Chloride [Moles/Vol] 100 mmol/L 98-[address] [facility] [place] [place] Work Phone: Cholesterol [Mass/Vol] 91 mg/dL <200 [facility] [place] [place] Work Phone: Comment on above: <200 mg/dL Desirable 200-240 mg/dL Borderline >240 mg/dL High Risk Glucose [Mass/Vol] 99 mg/dL 74-106 [facility] [place] [place] Work Phone: Potassium [Moles/Vol] 4.3 mmol/L 3.5-5.1 [address] [facility] [place] [place] Work Phone: Sodium [Moles/Vol] 138 mmol/L 136-145 [facility] Work Phone: Triglyceride [Mass/Vol] 50 mg/dL <199 [facility] Work Phone: Comment on above: The drugs N-Acetylcy steine and Metamizole may falsely depress this assay.Serum Triglycerides Reference Interval Normal <150 mg/dL Borderline high 150 - 199 mg/dL High 200 - 499 mg/dL Very High > or = 500 mg/dL Laboratory - Chemistry and C hemistry - challengeon 11-05-2021 CO2 [Moles/Vol] 29.0 mmol/L 21.0-32.0 [facility] Work Phone: Urea nitrogen/Creatinine [Mass ratio] 27.2 mg/mg 10-20 [facility] Work Phone: No Panel Informationon 11-05 Estimated GFR (MDRD) Amer 105 mL/min >60 [facility] [facility] Work [facility]: Comment on above: GFR Calc Estimated GFR (MDRD) Non-Af Amer 87 mL/min >60 [facility] Work Phone: Comment on above: Non- GFR Calc Urine Microalbumin/Creatinine Ratio 17.8 mg/g CRE <30 [facility] Work Phone: Serum or plasma calcium makenzie urement (mass/volume)on 11-05-2021 Calcium [Mass/Vol] 9.2 mg/dL 8.5-10.1 [facility] Work Phone: Serum or plasma cholesterol in HDL measurement (mass/volume)on 11-05-2021 Cholesterol in HDL [Mass/Vol] 53 mg/dL >40 [facility] Work Phone: Comment on above: The drugs N-Acetylcy steine and Metamizole may falsely depress this assay. Reference Range HDL <40 mg/dL Low HDL Cholesterol HDL >or= 60 mg/dL High HDL Cholesterol Serum or plasma cholesterol in VLDL measurement (mass/volume)on 11-05-2021 Cholesterol in VLDL [Mass/Vol] 10 mg/dL 5-40 [facility] Work Phone: Serum or plasma creatinine m easurement (mass/volume)on 11-05-2021 Creatinine [Mass/Vol] 0.92 mg/dL 0.70-1.30 [facility] Work Phone: Comment on above: The validity of the calculated GFR & GFRAA in patients over 70 years has not been determined. Clinical correlation is essential. Serum or plasma low density lipoprotein (LDL) cholesterol measurement (mass/volume)on 11-05-2021 Cholesterol in LDL [Mass/Vol] 28 mg/dL 0-130 [facility] Work Phone: Serum or plasma urea nitroge n measurement (mass/volume)on 11-05-2021 Urea nitrogen [Mass/Vol] 25 mg/dL 7-18 [facility] Work Phone: Thin prep Papanicolaou smear with manual screeningon 11-05-2021 Thin prep Papanicolaou smear with manual screening 9 5-15 [facility] Work Phone: Thin prep Papanicolaou smear with manual screening 22.9 mg/L NO RANGE EST. [facility] Work Phone: Urine creatinine measurement (mass/volume)on 11-05-2021 Creatinine (U) [Mass/Vol] 129.00 mg/dL NO RANGE EST. [facility] Work Phone: Whole blood hemoglobin A1c/t otal hemoglobin ratio (mass fraction)on 11-05-2021 HbA1c (Bld) [Mass fraction] 6.1 % 3.8-5.6 [facility] Work Phone: Comment on above: Normal < 5.7 % Predi abetic 5.7 - 6.4 % Diabetic >or= 6.5 % Please note range changes. Absolute lymphocyte counton 10-13-2021 Lymphocytes Auto (Unsp spec) [#/Vol] 2.13 10*3/uL 0.83-4.51 [facility] Work Phone: Basophil percentageon 2021 Basophil percentage 25-50 SEEN /hpf 0-5 [facility] Work Phone: Basophils/100 WBC (Bld) 1.0 % 0-1 [facility] Work Phone: Chloride [Moles/Vol] 103 mmol/L 98-107 [facility] Work Phone: Eosinophils/100 WBC (Bld) 2.3 % 0-5 [facility] Work Phone: Glucose [Mass/Vol] 132 mg/dL 74-106 [facility] Work Phone: Comment on above: Fasting Glucose resu lt greater than or equal to 126 mg/dL suggests DIABETES MELLITUS per A.D.A. criteria. Neutrophils (Bld) [#/Vol] 8.0 10*3/uL 2.0-7.7 [facility] Work Phone: Neutrophils/100 WBC (Bld) 70.5 % 47-70 [facility] Work Phone: Potassium [Moles/Vol] 3.7 mmol/L 3.5-5.1 [facility] Work Phone: Sodium [Moles/Vol] 142 mmol/L 136-145 [facility] Work Phone: WBC (Bld) [#/Vol] 11.4 10*3/uL 4.4-11.0 [facility] Work Phone: [phone] Bilirubin Test strip Ql (U)o n 10-13-2021 Bilirubin Ql (U) Negative Negative [facility] Work Phone: Blood erythrocytes count (nu mber/volume)on 10-13-2021 RBC (Bld) [#/Vol] 4.73 10*6/uL 4.6-6.2 [facility] Work Phone: Blood hemoglobin measurement (mass/volume)on 10-13-2021 Hemoglobin (Bld) [Mass/Vol] 14.5 g/dL 13.0-16.5 [facility] Work Phone: Blood lymphocytes/100 leukoc yteson 10-13-2021 Lymphocytes/100 WBC (Bld) 18.8 % 19-41 [facility] Work Phone: Blood monocytes/100 leukocyt eson 10-13-2021 Monocytes/100 WBC (Bld) 7.1 % 0-10 [facility] Work Phone: Blood platelet mean volumeon 10-13-2021 Platelet mean volume (Bld) [Entitic vol] 11.4 fL 6.2-12.0 [facility] Work Phone: Determination of erythrocyte mean corpuscular volume (MCV)on 10-13-2021 MCV (RBC) [Entitic vol] 93.9 fL 80-94 [facility] Work Phone: Hematocrit Auto (Bld) [Volum e fraction]on 10-13-2021 Hematocrit (Bld) [Volume fraction] 44.4 % 40-54 [facility] Work Phone: INR in Blood by Coagulation assayon 10-13-2021 INR Coag (Bld) [Relative time] 1.0 {INR} [facility] Work Phone: Ketones Test strip Ql (U)on 10-13-2021 Ketones Ql (U) Negative Negative [facility] Work Phone: Laboratory - Chemistry and C hemistry - challengeon 10-13-2021 CO2 [Moles/Vol] 29.0 mmol/L 21.0-32.0 [facility] Work Phone: Urea nitrogen/Creatinine [Mass ratio] 23.8 mg/mg 10-20 [facility] Work Phone: Laboratory - Coagulationon 0 10-13-2021 PT Coag (PPP) [Time] 12.6 s 11.7-14.9 [facility] Work Phone: Laboratory - Hematology and Cell countson 10-13-2021 Erythrocyte distribution width (RBC) [Entitic vol] 44.1 fL 35.1-43.9 [facility] Work Phone: Erythrocyte distribution width (RBC) [Ratio] 12.8 % 11.6-14.6 [facility] Work Phone: Immature granulocytes/100 WBC (Bld) 0.300 % 0.0-0.9 [facility] Work Phone: Comment on above: IG% - Immature Granu locytes (promyelocytes, myelocytes and metamyelocytes) > 1% indicates that a LEFT SHIFT is Present. MCH (RBC) [Entitic mass] 30.7 pg 27.0-32.0 [facility] Work Phone: Nucleated RBC/100 WBC (Bld) [Ratio] 0 % 0-5 [facility] Work Phone: MCHC Auto (RBC) [Mass/Vol]on 10-13-2021 MCHC (RBC) [Mass/Vol] 32.7 g/dL 32-36 [facility] Work Phone: Mucus LM Ql (Urine sed)on Mucus Ql (Urine sed) 1+ /hpf [facility] Work Phone: Nitrite Test strip Ql (U)on 10-13-2021 Nitrite Ql (U) Negative Negative [facility] Work Phone: No Panel Informationon 10-13 Troponin I High Sensitivity 17 pg/mL 3.0-78.0 [facility] Work Phone: Comment on above: Please Note: New Debbie t Units and Gender Specific Reference Ranges. For more information see Policy Stat Procedure [place] High Sensitivity Troponin (TNIH) and attachments. D-Dimer Quantitative (PE/DVT) 0.44 FEU/ug/m 0.27-0.49 [facility] Work Phone: Comment on above: NORMAL D-Dimer level (<0.50) indicates no DVT or PE. Estimated Creatinine Clearance Calc 63.94 ml/min [facility] Work Phone: Estimated GFR (MDRD) Amer 90 mL/min >60 [facility] Work Phone: Comment on above: GFR Calc Estimated GFR (MDRD) Non-Af Amer 75 mL/min >60 [facility] Work Phone: Comment on above: Non- GFR Calc Thyroid Stimulating Hormone (TSH) 1.52 uIU/mL 0.358-3.74 [facility] Work Phone: Platelets bldon 10-13-2021 Platelets (Bld) [#/Vol] 396 10*3/uL 150-450 [facility] Work Phone: Protein Test strip Ql (U)on 10-13-2021 Protein Ql (U) 15 mg/dl Negative [facility] Work Phone: Serum or plasma calcium makenzie urement (mass/volume)on 10-13-2021 Calcium [Mass/Vol] 10.1 mg/dL 8.5-10.1 [facility] [place] [place] Work Phone: Serum or plasma creatinine m easurement (mass/volume)on 10-13-2021 Creatinine [Mass/Vol] 1.05 mg/dL 0.70-1.30 [facility] [place] [place] Work Phone: Comment on above: The validity of the calculated GFR & GFRAA in patients over 70 years has not been determined. Clinical correlation is essential. Serum or plasma urea nitroge n measurement (mass/volume)on 10-13-2021 Urea nitrogen [Mass/Vol] 25 mg/dL 7-18 [facility] Work Phone: Squamous epithelial cells de tection in urine sediment by light microscopyon 10-13-2021 Epithelial cells.squamous LM Ql (Urine sed) 0-5 SEEN /hpf 0-5 [facility] Work Phone: Thin prep Papanicolaou smear with manual screeningon 10-13-2021 Thin prep Papanicolaou smear with manual screening 10 5-15 [facility] Work Phone: Urine blood detectionon RBC Ql (U) 25 /ul Negative [facility] Work Phone: RBC Ql (U) 0-5 SEEN /hpf 0-5 [facility] Work Phone: Urine clarityon 10-13-2021 Clarity (U) Clear Clear [facility] Work Phone: Urine color determinationon 10-13-2021 Color (U) Yellow Yellow [facility] Work Phone: Urine glucose detectionon Glucose Ql (U) Normal mg/dl Normal [facility] Work Phone: Urine leukocyte esterase det ection by dipstickon 10-13-2021 Leukocyte esterase Test strip Ql (U) 500 /ul Negative [facility] Work Phone: Urine pHon 10-13-2021 pH (U) 6.0 [pH] 5.0 - 8.0 [facility] Work Phone: Urine sediment bacteria coun t by microscopy (number/high power field)on 10-13-2021 Bacteria LM.HPF (Urine sed) [#/Area] 1 /[HPF] None Seen [facility] Work Phone: Urine specific gravity measu rementon 10-13-2021 Specific gravity (U) [Rel density] 1.015 1.002-1.030 [facility] Work Phone: Urobilinogen Auto test strip Ql (U)on 10-13-2021 Urobilinogen Ql (U) Normal mg/dl Normal [facility] Work Phone: Absolute lymphocyte counton 08-04-2021 Lymphocytes Auto (Unsp spec) [#/Vol] 2.35 10*3/uL 0.83-4.51 [facility] Work Phone: Basophil percentageon 2021 Basophil percentage 5-10 SEEN /hpf 0-5 [facility] Work Phone: Basophils/100 WBC (Bld) 0.9 % 0-1 [facility] Work Phone: Bilirubin [Mass/Vol] 0.40 mg/dL 0.20-1.00 [facility] Work Phone: Comment on above: For patients on eltr ombopag therapy, use of [place] TBIL is not recommended. Chloride [Moles/Vol] 105 mmol/L 98-107 [facility] Work Phone: Eosinophils/100 WBC (Bld) 3.6 % 0-5 [facility] Work Phone: Glucose [Mass/Vol] 164 mg/dL 74-106 [facility] Work Phone: Comment on above: Fasting Glucose resu lt greater than or equal to 126 mg/dL suggests DIABETES MELLITUS per A.D.A. criteria. Neutrophils (Bld) [#/Vol] 5.5 10*3/uL 2.0-7.7 [facility] Work Phone: Neutrophils/100 WBC (Bld) 60.7 % 47-70 [facility] Work Phone: Potassium [Moles/Vol] 4.1 mmol/L 3.5-5.1 [facility] Work Phone: Protein [Mass/Vol] 7.2 g/dL 6.4-8.2 [facility] Work Phone: Sodium [Moles/Vol] 142 mmol/L 136-145 [facility] Work Phone: WBC (Bld) [#/Vol] 9.0 10*3/uL 4.4-11.0 [facility] Work Phone: Bilirubin Test strip Ql (U)o n 08-04-2021 Bilirubin Ql (U) Negative Negative [facility] Work Phone: Blood erythrocytes count (nu mber/volume)on 08-04-2021 RBC (Bld) [#/Vol] 4.24 10*6/uL 4.6-6.2 [facility] Work Phone: Blood hemoglobin measurement (mass/volume)on 08-04-2021 Hemoglobin (Bld) [Mass/Vol] 13.2 g/dL 13.0-16.5 [facility] Work Phone: Blood lymphocytes/100 leukoc yteson 08-04-2021 Lymphocytes/100 WBC (Bld) 26.1 % 19-41 [facility] Work Phone: Blood monocytes/100 leukocyt eson 08-04-2021 Monocytes/100 WBC (Bld) 8.4 % 0-10 [facility] Work Phone: Blood platelet mean volumeon 08-04-2021 Platelet mean volume (Bld) [Entitic vol] 11.1 fL 6.2-12.0 [facility] Work Phone: Determination of erythrocyte mean corpuscular volume (MCV)on 08-04-2021 MCV (RBC) [Entitic vol] 94.1 fL 80-94 [facility] Work Phone: Hematocrit Auto (Bld) [Volum e fraction]on 08-04-2021 Hematocrit (Bld) [Volume fraction] 39.9 % 40-54 [facility] Work Phone: Ketones Test strip Ql (U)on 08-04-2021 Ketones Ql (U) Negative Negative [facility] Work Phone: Laboratory - Chemistry and C hemistry - challengeon 08-04-2021 ALP [Catalytic activity/Vol] 67 U/L 45-117 [facility] Work Phone: ALT [Catalytic activity/Vol] 29 U/L 16-61 [facility] Work Phone: [phone] CO2 [Moles/Vol] 28.0 mmol/L 21.0-32.0 [facility] Work Phone: Globulin (S) [Mass/Vol] 3.6 g/dL 2.2-4.2 [facility] Work Phone: Urea nitrogen/Creatinine [Mass ratio] 17.5 mg/mg 10-20 [facility] Work Phone: Laboratory - Drug toxicology on 08-04-2021 Amphetamines Ql (U) Negative <1000 ng/mL [facility] Work Phone: [phone] Benzodiazepines Ql (U) Negative < 200 ng/mL [facility] Work Phone: Cannabinoids Screen Ql (U) Negative < 50 ng/mL [facility] Work Phone: Cocaine Ql (U) Negative < 300 ng/mL [facility] Work Phone: Opiates Ql (U) Negative < 300 ng/mL [facility] Work Phone: Laboratory - Hematology and Cell countson 08-04-2021 Erythrocyte distribution width (RBC) [Entitic vol] 42.9 fL 35.1-43.9 [facility] Work Phone: Erythrocyte distribution width (RBC) [Ratio] 12.6 % 11.6-14.6 [facility] Work Phone: Immature granulocytes/100 WBC (Bld) 0.300 % 0.0-0.9 [facility] Work Phone: Comment on above: IG% - Immature Granu locytes (promyelocytes, myelocytes and metamyelocytes) > 1% indicates that a LEFT SHIFT is Present. MCH (RBC) [Entitic mass] 31.1 pg 27.0-32.0 [facility] Work Phone: Nucleated RBC/100 WBC (Bld) [Ratio] 0 % 0-5 [facility] Work Phone: MCHC Auto (RBC) [Mass/Vol]on 08-04-2021 MCHC (RBC) [Mass/Vol] 33.1 g/dL 32-36 [facility] Work Phone: Mucus LM Ql (Urine sed)on Mucus Ql (Urine sed) 1+ /hpf [facility] Work Phone: Nitrite Test strip Ql (U)on 08-04-2021 Nitrite Ql (U) Negative Negative [facility] Work Phone: No Panel Informationon 08-04 MDMA (Ecstasy) Screen Negative < 500 ng/mL [facility] Work Phone: Urine Barbiturates Screen Negative < 200 ng/mL [facility] Work Phone: Urine Drug Screen Comment [facility] Work Phone: Comment on above: CONFIRMATORY TESTING FOR ALL POSITIVE URINE DRUG SCREENRESULTS WILL ONLY BE SENT OUT UPON PHYSICIAN ORDER. VISTA Urine Drug Screen methods provide only preliminaryanalytical test results. A more specific alternate chemicalmethod must be used in order to obtain a confirmedanalytical result. Gas chromatography/mass spectrometery(GC/MS) is the preferred confirmatory method. Clinicalconsideration and professional judgement should be appliedto any drug of abuse test result, particularly whenpreliminary positive results are used. URINE TCA TESTING MUST BE ORDERED SEPARATELY. USE TESTMNEMONIC: [facility] Urine Methadone Screen Negative < 300 ng/mL [facility] Work Phone: Estimated Creatinine Clearance Calc 64.04 ml/min [facility] Work Phone: Estimated GFR (MDRD) Amer 82 mL/min >60 [facility] Work Phone: Comment on above: GFR Calc Estimated GFR (MDRD) Non-Af Amer 68 mL/min >60 [facility] Work Phone: Comment on above: Non- GFR Calc Ethyl Alcohol Level < 3.0 mg/dL [facility] Work Phone: Comment on above: The serum:whole bloo d ethanol ratio is approximately 1.14and varies slightly with hematocrit. Medical Alcohol reference interval and critical value innon-tolerant individuals; 50 - 100 Impairment 100 Intoxication 100 - 250 Severe Poisoning 250 - 400 Deep/possible fatal coma Troponin I High Sensitivity 8 pg/mL 3.0-78.0 [facility] Work Phone: Comment on above: Please Note: New Debbie t Units and Gender Specific Reference Ranges. For more information see Policy Stat Procedure [place] High Sensitivity Troponin (TNIH) and attachments. Platelets bldon 08-04-2021 Platelets (Bld) [#/Vol] 352 10*3/uL 150-450 [facility] Work Phone: Protein Test strip Ql (U)on 08-04-2021 Protein Ql (U) 15 mg/dl Negative [facility] Work Phone: Serum or plasma albumin makenzie urement (mass/volume)on 08-04-2021 Albumin [Mass/Vol] 3.6 g/dL 3.2-5.0 [facility] Work Phone: Serum or plasma albumin/glob ulin mass ratioon 08-04-2021 Albumin/Globulin [Mass ratio] 1.0 {ratio} 0.9-2.4 [facility] Work Phone: Serum or plasma calcium makenzie urement (mass/volume)on 08-04-2021 Calcium [Mass/Vol] 9.2 mg/dL 8.5-10.1 [facility] Work Phone: Serum or plasma creatinine m easurement (mass/volume)on 08-04-2021 Creatinine [Mass/Vol] 1.14 mg/dL 0.70-1.30 [facility] Work Phone: Comment on above: The validity of the calculated GFR & GFRAA in patients over 70 years has not been determined. Clinical correlation is essential. Serum or plasma urea nitroge n measurement (mass/volume)on 08-04-2021 Urea nitrogen [Mass/Vol] 20 mg/dL 7-18 [facility] Work Phone: Squamous epithelial cells de tection in urine sediment by light microscopyon 08-04-2021 Epithelial cells.squamous LM Ql (Urine sed) 0-5 SEEN /hpf 0-5 [facility] Work Phone: Thin prep Papanicolaou smear with manual screeningon 08-04-2021 Thin prep Papanicolaou smear with manual screening 24 U/L 15-37 [facility] Work Phone: Thin prep Papanicolaou smear with manual screening 9 5-15 [facility] Work Phone: Urine blood detectionon - RBC Ql (U) Negative Negative [facility] Work Phone: RBC Ql (U) 0 SEEN /hpf 0-5 [facility] Work Phone: Urine clarityon 08-04-2021 Clarity (U) Clear Clear [facility] Work Phone: Urine color determinationon 08-04-2021 Color (U) Yellow Yellow [facility] Work Phone: Urine glucose detectionon Glucose Ql (U) Normal mg/dl Normal [facility] Work Phone: Urine leukocyte esterase det ection by dipstickon 08-04-2021 Leukocyte esterase Test strip Ql (U) 100 /ul Negative [facility] Work Phone: Urine pHon 08-04-2021 pH (U) 6.5 [pH] 5.0 - 8.0 [facility] Work Phone: Urine phencyclidine (PCP) de tectionon 08-04-2021 Phencyclidine Ql (U) Negative < 25 ng/mL [facility] Work Phone: Urine sediment bacteria coun t by microscopy (number/high power field)on 08-04-2021 Bacteria LM.HPF (Urine sed) [#/Area] RARE /hpf None Seen [facility] Work Phone: Urine specific gravity measu rementon 08-04-2021 Specific gravity (U) [Rel density] 1.015 1.002-1.030 [facility] Work Phone: Urobilinogen Auto test strip Ql (U)on 08-04-2021 Urobilinogen Ql (U) Normal mg/dl Normal [facility] Work Phone: NM CARDIAC PERF STRESS/PHARM on 06-08-2021 [facility] EMERGENCY DEPARTMENT REPORTo n 04-02-2021 [place] [address] HEALTH INFORMATION MANAGEMENT EMERGENCY DEPARTMENT REPORT Patient: GUSTAVO PATTON CONNOR B Robbie [id number] M Status: DEP ER ED Date of Service: 04/01/21 CHIEF COMPLAINT: Concern for stroke with right-sided weakness. ALLERGIES: Unobtainable. SOCIAL HISTORY: Unable to be obtained. PAST SURGICAL HISTORY: Unable to be obtained. PAST MEDICAL HISTORY: Significant for diabetes. FAMILY HISTORY: Unable to be obtained. HISTORY OF PRESENT ILLNESS: The patient is a 70-year-old male presenting to the Emergency Department for right-sided weakness. 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 Last known well was around 9:30 a.m. when he was dropping off a delivery and all of a sudden stumbled, fell into the wall, and had right-sided weakness. EMS was called around 9:45. The patient was brought here for further evaluation. No history is able to be obtained from the patient. REVIEW OF SYSTEMS: Unable to be obtained due to clinical status. PHYSICAL EXAMINATION: GENERAL: The patient will open his eyes, he did have a left eye gaze deviation. He has a right-sided flaccid paralysis of the face. He did have some effort to gravity of the left side of his body. There is no effort to the gravity of the right side. NIH is 24. He is protecting his airway. HEART: Regular rate and rhythm. LUNGS: Clear. ABDOMEN: Soft and nontender. EXTREMITIES: There is no pitting edema to the lower extremities. EMERGENCY DEPARTMENT CLINICAL COURSE: The patient was hemodynamically stable. His vital signs upon arrival were 125/84 for his blood pressure, temp was 97.8, pulse was 98, respiratory rate was 19, and O2 sat was 94% on room air. A stroke alert was called. The patient's blood sugar was in the 250 range, I believe it was 259 on his chemistry panel. The patient was sent to CT scan where he had a noncontrast CT scan done which showed an evolving right occipital infarct. I did speak to the tele stroke neurologist who saw and evaluated the patient in emergency department room 10. At this point, it was decided to give the patient TNK based on his symptoms. The patient was given tenecteplase at 10:23 a.m. The concern was the patient had a large vessel occlusion. A CT angiogram was performed. Chest x-ray showed bibasilar left greater than right interstitial opacities reflecting fibrosis, infiltrates, or atelectasis. Clinically, his symptoms are consistent with pneumonia. CT angio of the head showed a thrombotic occlusion of the distal left M1 middle cerebral artery and M2 bifurcation. Minimal flow was present within distal circular branches, M3 and M4. There is poor p.o. collaterals of the left MCA territory demonstrated. There was bilateral antegrade vertebral artery flow without significant stenosis. At this point, I had spoken to the tele stroke neurologist as well as neural ICU doc at [facility], Dr. Pittman. At this point, it was decided to arrange critical care air transportation for the patient to [facility] for possible thrombectomy. IV fluids were ordered on the patient. EKG shows sinus rhythm. No signs of STEMI. CBC was unremarkable. Chemistry panel did show glucose of 259. At this point, the patient was transferred to [facility] for further evaluation, management, and treatment of his symptoms. IMPRESSION: Stroke with left M1 and M2 large vessel occlusion. DISPOSITION: The patient transferred to [facility]. 40 minutes of critical care time. Report#: Dict ID [id number] / Int ID [id number] 04/04/21 1047 CHAYO ARAYA D.O. cc: CHAYO ARAYA D.O. << Signature on File>> Reported By: CHAYO ARAYA D.O. Signed By: CHAYO ARAYA D.O. Tests performed at: [address] [address] Normal [facility] BMPon 04-01-2021 Anion gap [Moles/Vol] 18.5 mmol/L Normal -22 [facility] Comment on above: Performed By: #### L 100.0010, L301.0120 #### [facility] - LABORATORY [address] [place] [id number] Calcium [Mass/Vol] 9.1 mg/dL Normal 8.8-10.2 [facility] Comment on above: Performed By: #### L 100.0010, L301.0120 #### [facility] [address] [place] [address] Chloride [Moles/Vol] 101 mmol/L Normal 98-107 [facility] Comment on above: Performed By: #### L 100.0010, L301.0120 #### [facility] [address] [place] [id number] CO2 [Moles/Vol] 24 mmol/L Normal 22-29 [facility] Comment on above: Performed By: #### L 100.0010, L301.0120 #### [facility] [address] [place] [id number] Creatinine [Mass/Vol] 1.14 mg/dL Normal 0.70-1.20 [facility] Comment on above: Performed By: #### L 100.0010, L301.0120 #### [facility] [address] [place] [phone] eGFR if AFR KATEY > 60 ml/min/1.73m2 Normal [facility] Comment on above: Result Comment: eGFR >= 60 Indicates normal kidney function. * eGFR IS AN ESTIMATE * (AFR KATEY = ) (non-AFR AM = NON-) MDRD calculation used in the eGFR should not be used to dose medications. For further limitations of the eGFR please refer to the Physician Website or the National Kidney Disease Education Program website (www.nkdep.nih.gov). Performed By: #### L 100.0010, L301.0120 #### [facility] [address] [place] [id number] eGFR nonAFR Katey > 60 ml/Min/1.73m2 Normal [facility] Comment on above: Performed By: #### L 100.0010, L301.0120 #### [facility] [address] [place] [id number] Glucose [Mass/Vol] 259 mg/dL High 82-115 [facility] Comment on above: Performed By: #### L 100.0010, L301.0120 #### [facility] [address] [place] [address] 84729 Potassium [Moles/Vol] 4.5 mmol/L Normal 3.5-5.0 [facility] Comment on above: Performed By: #### L 100.0010, L301.0120 #### [facility] - LABORATORY [address] [place] [address] 15675 Sodium [Moles/Vol] 139 mmol/L Normal 135-145 [facility] Comment on above: Performed By: #### L 100.0010, L301.0120 #### [facility] - LABORATORY [address] [place] [address] 36069 Urea nitrogen [Mass/Vol] 18 mg/dL Normal 8-23 [facility] Comment on above: Performed By: #### L 100.0010, L301.0120 #### [facility] - LABORATORY [address] [place] [address] 87783 CBCon 04-01-2021 BASO# 0.10 x10(3) Normal 0.00-0.10 [facility] Comment on above: Performed By: #### L 200.0010 #### [facility] - LABORATORY [address] [place] [address] 01307 Basophils/100 WBC (Bld) 0.9 % Normal 0.0-1.0 [facility] Comment on above: Performed By: #### L 200.0010 #### [facility] - LABORATORY [address] [place] [address] 97094 EOS# 0.20 x10(3) Normal 0.00-0.54 [facility] Comment on above: Performed By: #### L 200.0010 #### [facility] [address] [place] [address] 67712 Eosinophils/100 WBC (Bld) 2.4 % Normal 0.5-4.9 [facility] Comment on above: Performed By: #### L 200.0010 #### [facility] [address] [place] [address] 76454 Erythrocyte distribution width (RBC) [Ratio] 13.4 % Normal 12.7-15.3 [facility] Comment on above: Performed By: #### L 200.0010 #### [facility] [address] [place] [address] 05920 Hematocrit (Bld) [Volume fraction] 40.7 % Low 42.0-51.0 [facility] Comment on above: Performed By: #### L 200.0010 #### [facility] [address] [place] [address] 19979 Hemoglobin (Bld) [Mass/Vol] 13.4 g/dL Low 14.0-17.2 [facility] Comment on above: Performed By: #### L 200.0010 #### [facility] [address] [place] [address] 90110 LYMPH# 2.10 x10(3) Normal 1.00-3.50 [facility] Comment on above: Performed By: #### L 200.0010 #### [facility] [address] [place] [address] 74069 Lymphocytes/100 WBC (Bld) 21.8 % Normal 16.0-48.0 [facility] Comment on above: Performed By: #### L 200.0010 #### [facility] [address] [place] [address] 55647 MCH (RBC) [Entitic mass] 30.0 pg Normal 28.8-32.2 [facility] Comment on above: Performed By: #### L 200.0010 #### [facility] [address] [place] [address] 29906 MCHC (RBC) [Mass/Vol] 33.1 g/dL Normal 33.0-36.0 [facility] Comment on above: Performed By: #### L 200.0010 #### [facility] [address] [place] [address] 77481 MCV (RBC) [Entitic vol] 90.6 fL Normal 80.0-94.0 [facility] Comment on above: Performed By: #### L 200.0010 #### [facility] - LABORATORY [address] [place] [address] 29317 MONO# 0.80 x10(3) Normal 0.30-0.80 [facility] Comment on above: Performed By: #### L 200.0010 #### [facility] [address] [place] [address] 63914 Monocytes/100 WBC (Bld) 8.7 % Normal 4.3-11.2 [facility] Comment on above: Performed By: #### L 200.0010 #### [facility] [address] [place] [address] 48076 NEUT# 6.20 x10(3) Normal 1.40-6.50 [facility] Comment on above: Performed By: #### L 200.0010 #### [facility] [address] [place] [address] 93255 Neutrophils/100 WBC (Bld) 66.2 % Normal 45.0-73.0 [facility] Comment on above: Performed By: #### L 200.0010 #### [facility] [address] [place] [address] 84323 Platelet mean volume (Bld) [Entitic vol] 9.1 fL Normal 7.4-9.2 [facility] Comment on above: Performed By: #### L 200.0010 #### [facility] [address] [place] [address] 06462 PLT 283 X10(3) Normal 150-450 [facility] Comment on above: Performed By: #### L 200.0010 #### [facility] [address] [place] [address] 52213 RBC 4.48 x10(6) Low 4.80-5.50 [facility] Comment on above: Performed By: #### L 200.0010 #### [facility] [address] [place] [address] 85850 WBC 9.4 x10(3) Normal 4.5-10.0 [facility] Comment on above: Performed By: #### L 200.0010 #### [facility] [address] [place] [address] 24438 CHEST-ONE VIEW ONLY - CXR1on 04-01-2021 CHEST-ONE VIEW ONLY - CXR1 [address] [address] Name: GUSTAVO PATTON Phys: CHAYO ARAYA D.O. : [birth year] Age: 70 Sex: M Acct: [id number] Loc: ED Exam Date: 04/01/21 Status: REG ER Radiology No.: Unit Number: [id number] Exam # Type/Exam [id number] RAD / CHEST-ONE VIEW ONLY - CXR1 EXAMINATION: ONE XRAY VIEW OF THE CHEST TECHNIQUE: One view upright COMPARISON: None HISTORY: ORDERING SYSTEM PROVIDED HISTORY: TECHNOLOGIST PROVIDED HISTORY: Reason for Exam: Focal neuro deficit,new,fixed,worse FINDINGS: Support devices: None Cardiomediastinal: Slightly prominent cardiomediastinal silhouette which may be magnified. Lungs: Diminished lung volumes. Bibasilar interstitial opacities more pronounced on the left side without consolidation noted. No evidence of a large pleural effusion. Pneumothorax: None Osseous: No acute osseous pathology. IMPRESSION: Bibasilar, left greater than right interstitial opacities reflecting fibrosis, infiltrates, or atelectasis. Electronically signed By Jose Tidwell MD 04/01/2021 10:49:38 AM EST Workstation ID : [id number] < > Reported By: JOSE TIDWELL M.D. Signed In Fluency By: JOSE TIDWELL M.D. << Signature on File>> Reported By: JOSE TIDWELL M.D. Signed By: JOSE TIDWELL M.D. Tests performed at: [address] [address] Normal [facility] CT ANGIO HEAD W/WO CONTRASTo n 04-01-2021 CT ANGIO HEAD W/WO CONTRAST [address] [place], [place] [address] Name: GUSTAVO PATTON Phys: CHAYO ARAYA D.O. : [birth year] Age: 70 Sex: M Acct: [id number] Loc: ED Exam Date: 04/01/21 Status: REG ER Radiology No.: Unit Number: [id number] Exam # Type/Exam [id number] CT / CT ANGIO HEAD W/WO CONTRAST EXAMINATION: CT Angiogram of the head with intravenous contrast TECHNIQUE: CT angiogram of the head was obtained. Sagittal and coronal reformations and maximum intensity projection reconstructions were provided. Images were obtained before and after the uneventful administration of 100 mL Omnipaque 350. 3D reformatted MIP images were provided One or more of the following dose reduction techniques were used: automated exposure control, adjustment of the mA and/or kV according to patient size, or use of iterative reconstruction technique. DICOM images are available. COMPARISON: Same day noncontrast CT head HISTORY: ORDERING SYSTEM PROVIDED HISTORY: TECHNOLOGIST PROVIDED HISTORY: Reason for Exam: Focal neuro deficit,new,fixed,worse FINDINGS: Cerebral angiogram Aneurysm: No aneurysm identified. Anterior circulation: Internal carotid arteries: No significant stenosis. Ophthalmic arteries: The bilateral proximal ophthalmic arteries are patent. Anterior cerebral arteries: No flow-limiting stenosis Middle cerebral arteries: Thrombotic occlusion of the distal left M1 middle cerebral artery extending into the M2 bifurcation. Minimal flow is seen within the distal opercular branches, M3, and M4. Poor pial collaterals of the left MCA territory are demonstrated. Unremarkable right middle cerebral artery. Posterior cerebral arteries: No significant flow-limiting stenosis. Anterior communicating artery: Present. Posterior communicating arteries: Bilaterally hypoplastic or aplastic. Posterior circulation: Basilar artery: No flow-limiting stenosis V3/V4 vertebral arteries: No significant flow-limiting stenosis. Dural venous sinuses: Patent. IMPRESSION: Thrombotic occlusion of the distal left M1 middle cerebral artery and M2 bifurcation. Minimal flow is present within distal opercular branches, M3 and M4. Poor pial collaterals of the left MCA territory are demonstrated. The results of this examination were discussed by this radiologist with Dr. Araya at 11:18 a.m. on 04/01/2021 Electronically signed By Jose Tidwell MD 04/01/2021 11:22:09 AM EST Workstation ID : [id number] < > Reported By: JOSE TIDWELL M.D. Signed In Fluency By: JOSE TIDWELL M.D. << Signature on File>> Reported By: JOSE TIDWELL M.D. Signed By: JOSE TIDWELL M.D. Tests performed at: [address] [address] Normal [facility] CT ANGIO NECK W/WO CONTRASTo n 04-01-2021 CT ANGIO NECK W/WO CONTRAST [address] [address] Name: POOJAGUSTAVO Mirlande Phys: CHAYO ARAYA D.O. : [birth year] Age: 70 Sex: M Acct: [id number] Loc: ED Exam Date: 04/01/21 Status: [facility] Radiology No.: Unit Number: [id number] Exam # Type/Exam [id number] CT / CT ANGIO NECK W/WO CONTRAST EXAMINATION: CTA neck: TECHNIQUE: Contiguous spiral images were obtained in the axial plane, following the administration of intravenous contrast using CT angiographic protocol. Sagittal and coronal images were reconstructed from the axial plane acquisition. Additional 3D reformatted MIP reconstructions were presented to aid in the interpretation of this study. Images were obtained from the skull base through the upper lobes. Contrast: 100 mL Omnipaque 350 One or more the following dose reduction techniques were used:automated exposure control, adjustment of the mA and/or kV according to patient size, or use of iterative reconstruction technique. Additional comment: None. COMPARISON: None HISTORY: ORDERING SYSTEM PROVIDED HISTORY: TECHNOLOGIST PROVIDED HISTORY: Reason for Exam: Focal neuro deficit,new,fixed,worse FINDINGS: Neck Angiogram Aorta: Normal. Right common carotid artery: No hemodynamically significant flow-limiting stenosis. Right internal carotid artery: No hemodynamically significant flow-limiting stenosis. Right external carotid artery: No hemodynamically significant flow-limiting stenosis. Left common carotid artery: No hemodynamically significant flow-limiting stenosis. Left internal carotid artery: No hemodynamically significant flow-limiting stenosis. Left external carotid artery: No hemodynamically significant flow-limiting stenosis. V1/V2 vertebral arteries: No hemodynamically significant flow-limiting stenosis. Vertebral artery dominance: Left Neck Soft tissues: Normal. Bones: No fracture or bone destruction. Straightening of the normal cervical lordosis. Trace retrolisthesis of C3 on C4, anterolisthesis C5 on C6. Severe disc height loss with endplate degenerative changes involves C6-C7. Moderate to severe disc height loss is present at C3-C4. Lung apices: Clear. IMPRESSION: 1. No measurable stenosis of the bilateral extracranial internal carotid arteries. 2. Bilateral antegrade vertebral artery flow without significant stenosis. The estimate of the degree of stenosis included in this report is based on the NASCET method for calculating stenosis, using the internal carotid artery distal to the stenosis as the reference point. The results of this examination were discussed by this radiologist with Dr. Domingo at 11:19 a.m. on 04/01/2021 Electronically signed By Jose Tidwell MD 04/01/2021 11:24:34 AM EST Workstation ID : [id number] < > Reported By: JOSE TIDWELL M.D. Signed In Fluency By: JOSE TIDWELL M.D. << Signature on File>> Reported By: JOSE TIDWELL M.D. Signed By: JOSE TIDWELL M.D. Tests performed at: [address] [address] Normal [facility] CT BRAIN WITHOUT CONTRAST- C TBon 04-01-2021 CT BRAIN WITHOUT CONTRAST- CTB [address] [address] Name: GUSTAVO PATTON Phys: CHAYO ARAYA D.O. : [birth year] Age: 70 Sex: M Acct: [id number] Loc: ED Exam Date: 04/01/21 Status: REG ER Radiology No.: Unit Number: [id number] Exam # Type/Exam [id number] CT / CT BRAIN WITHOUT CONTRAST- CTB HISTORY: Focal neuro deficit COMPARISON: No TECHNIQUE: Routine non-contrast head CT with sagittal and coronal reconstructions This exam was performed according to our departmental dose optimization program, and includes the following measures where applicable: automated exposure control, adjustment of the mAs and/or kVp according to patient size and/or exam, and an iterative reconstruction algorithm. FINDINGS: There is a small area of decreased attenuation loss of koo-white matter differentiation in the right occipital lobe. The ventricles and sulci are otherwise within normal size limits. There are no abnormal intra or extra-axial fluid collections. There is mild irregular decreased attenuation in the cerebral white matter. The calvaria in the bones of the base of the skull are intact. There is left maxillary sinus disease. IMPRESSION: Evolving right occipital infarct. Electronically signed By Stephani Wu MD 04/01/2021 10:36:29 AM EST Workstation ID : [id number] < > Reported By: STEPHANI WU M.D. Signed In Fluency By: STEPHANI WU M.D. << Signature on File>> Reported By: STEPHANI WU M.D. Signed By: STEPHANI WU M.D. Tests performed at: [address] [address] Normal [facility] ELECTROCARDIOGRAMon 04-01-19 22 Electrocardiogram [place] [address] HEALTH INFORMATION MANAGEMENT ELECTROCARDIOGRAM REPORT Patient: GUSTAVO PATTON Ordering: CHAYO ARAYA D.O. [id number] M Exam Date: 04/01/21 Report #: [id number] Status: REG ER ED Test Reason : Blood Pressure : / mmHG Vent. Rate : 088 BPM Atrial Rate : 088 BPM P-R Int : 154 ms QRS Dur : 078 ms QT Int : 370 ms P-R-T Axes : 050 082 064 degrees QTc Int : 447 ms Normal sinus rhythm Nonspecific T wave abnormality Abnormal ECG No previous ECGs available no stemi Confirmed by CHAYO ARAYA DO ([id number]) on 04/01/2021 12:17:14 PM Referred By: CHAYO ARAYA Confirmed By:CHAYO ARAYA DO Signed in [facility] 04/01/21 1218 CHAYO ARAYA D.O. cc: << Signature on File>> Reported By: CHAYO ARAYA D.O. Signed By: CHAYO ARAYA D.O. Tests performed at: [address] [address] Normal [facility] GLUCOSE FSon 04-01-2021 Glucose [Mass/Vol] 256 mg/dL High 70-110 [facility] Comment on above: Performed By: #### L 100.0070 #### [facility] [address] [place] [address] 45117 PTon 04-01-2021 INR Coag (PPP) [Relative time] 1.0 {INR} Normal 0.8-1.1 [facility] Comment on above: Result Comment: CO UMADIN PROTOCOLS INR values are generated for use in patients on coumadin. INR values stabilize 7 days after the start of coumadin or changes in coumadin dosage. The usual TARGET/INR range is: INDICATION INR RANGE Prophylaxis/treatment of: Venous Thrombosis, Pulmonary Embolism 2.0-3.0 Prevention of systemic embolism from: Tissue heart valves 2.0-3.0 Acute myocardial infarction (to prevent systemic embolism) 2.0-3.0 AMI (to prevent recurrent WA) 2.5-3.5 Valvular heart disease 2.0-3.0 Atrial fibrillation 2.0-3.0 Mechanical prosthetic valves (high risk) 2.5-3.5 Bileaflet mechanical valve in aortic position 2.0-3.0 Presence of Lupus Anticoagulant or Antiphospholipid Antibodies 2.5-3.5 PANIC VALUE: GREATER THAN OR EQUAL TO 4.5 Performed By: #### L 200.1602, L200.1642 #### [facility] [address] [place] [address] 11619 PT Coag (PPP) [Time] 11.0 s Normal 9.4-12.5 [facility] Comment on above: Performed By: #### L 200.1602, L200.1642 #### [facility] - LABORATORY [address] [place] [address] 87383 PTTon 04-01-2021 aPTT Coag (Bld) [Time] 29.0 s Normal 25.1-36.5 [facility] Comment on above: Result Comment: Hepa rin Protocol Therapeutic Range = 54.0-90.0 secs Performed By: #### L 200.1602, L200.1642 #### [facility] [address] [place] [address] 81202 RAPID COVIDon 04-01-2021 SARS-CoV-2 (COVID-19) RNA ADELA+probe Ql (Unsp spec) Negative Normal NEGATIVE [facility] Comment on above: Result Comment: THIS TEST HAS BEEN AUTHORIZED BY FDA UNDER AN EMERGENCY USE AUTHORIZATION (EUA). NEGATIVE: NEGATIVE FOR COVID19 (SARS-CoV-2) BY PCR POSITIVE: POSITIVE FOR COVID19 (SARS-CoV-2) BY PCR PRESUMPTIVE POSITIVE: POSITIVE BY SINGLE [place] SARS-CoV TARGET. SARS-CoV-1 CANNOT BE EXCLUDED, BUT IS NOT CURRENTLY CIRCULATING IN [place]. Performed By: #### L 200.0010 #### [facility] [address] [place] [address]64[address] TROPONIN Ton 04-01-2021 TROPONIN T <0.010 Normal 0-0.010 [facility] Comment on above: Performed By: #### L 200.0010 #### - LABORATORY [address] [place] [address] 42722 TYPE AND SCREENon 04-01-2021 AB SCRN Negative Normal [facility] Comment on above: Order Comment: [id number] ,PT SHIPPED OUT,ASHLEY Performed By: #### B 100.0700 #### - LABORATORY [address] [place] [address] 82945 BLD TYPE Positive Normal [facility] Comment on above: Order Comment: [id number] ,PT SHIPPED OUT,ASHLEY Performed By: #### B 100.0700 #### [facility] [address] [place] [address] 42467 COVID-19 virus antigen assay SARS-CoV-2 (COVID-19) Ag IA.rapid Ql (Resp) [facility] Work Phone: Culture, urine Bacteria identified Cx Nom (U) Culture exhibits no growth. [facility] Work Phone: Vital Signs Date Time Vital Sign Value Performing Clinician Facility 08-06-2024 14:27-0400 Body mass index (BMI) [Ratio] 26.83 kg/m2 Cruzito Masci DO Work Phone: [facility] 08-06-2024 14:27-0400 Body temperature 97.59 [degF] Cruzito Hart DO Work Phone: [facility] 08-06-2024 14:27-0400 Body weight 83.01 kg Cruzito Hart DO Work Phone: [facility] 08-06-2024 14:27-0400 Diastolic blood pressure 74 mm[Hg] Cruzito Hart DO Work Phone: [facility] 08-06-2024 14:27-0400 Heart rate 83 /min Cruzito Liangi DO Work Phone: [facility] 08-06-2024 14:270400 SaO2% (BldA) [Mass fraction] 96 % Cruzito Hart DO Work Phone: [facility] 08-06-2024 14:27-0400 Systolic blood pressure 112 mm[Hg] Cruzito Hart DO Work Phone: [facility] 07-12-2024 11:12-0400 Body mass index (BMI) [Ratio] 27.42 kg/m2 Jese Manley Jr., MD Work Phone: [facility] 07-12-2024 11:12-0400 Body weight 84.82 kg Jese Manley Jr., MD Work Phone: [facility] 07-12-2024 11:12-0400 Diastolic blood pressure 72 mm[Hg] Jese Manley Jr., MD Work Phone: [facility] 07-12-2024 11:12-0400 Heart rate 97 /min Jese Manley Jr., MD Work Phone: [facility] 07-12-2024 11:12-0400 Respiratory rate 16 /min Jese Manley Jr., MD Work Phone: [facility] 07-12-2024 11:12-0400 SaO2% (BldA) [Mass fraction] 96 % Jese Manley Jr., MD Work Phone: [facility] 07-12-2024 11:12-0400 Systolic blood pressure 113 mm[Hg] Jese Manley Jr., MD Work Phone: [facility] 02-29-2024 11:05-0500 Body height 177.8 cm Tracie Maldonado MD Work Phone: [facility] 02-29-2024 11:05-0500 Body mass index (BMI) [Ratio] 26.2 kg/m2 Tracie Maldonado MD Work Phone: [facility] 02-29-2024 11:05-0500 Body weight 83 kg Tracie Maldonado MD Work Phone: [facility] 02-29-2024 11:05-0500 Diastolic blood pressure 77 mm[Hg] Tracie Maldonado MD Work Phone: [facility] 02-29-2024 11:05-0500 Heart rate 86 /min Tracie Maldonado MD Work Phone: [facility] 02-29-2024 11:05-0500 Respiratory rate 18 /min Tracie Maldonado MD Work Phone: [facility] 02-29-2024 11:05-0500 SaO2% (BldA) [Mass fraction] 98 % Tracie Maldonado MD Work Phone: [facility] 02-29-2024 11:05-0500 Systolic blood pressure 127 mm[Hg] Tracie Maldonado MD Work Phone: [facility] 12-06-2023 12:30-0400 Diastolic blood pressure 73 mm[Hg] Fallon Steiner PA-C Work Phone: [facility] 12-06-2023 12:30-0400 Heart rate 95 /min Fallon Steiner PA-C Work Phone: [facility] 12-06-2023 12:30-0400 SaO2% (BldA) [Mass fraction] 96 % Fallon Steiner PA-C Work Phone: [facility] 12-06-2023 12:30-0400 Systolic blood pressure 122 mm[Hg] Fallon Steiner PA-C Work Phone: [facility] 10-20-2023 10:42-0400 Body mass index (BMI) [Ratio] 26.95 kg/m2 Jese Manley Jr., MD Work Phone: [facility] 10-20-2023 10:42-0400 Body weight 83.37 kg Jese Manley Jr., MD Work Phone: [facility] 10-20-2023 10:42-0400 Diastolic blood pressure 78 mm[Hg] Jese Manley Jr., MD Work Phone: [facility] 10-20-2023 10:42-0400 Heart rate 86 /min Jese Manley Jr., MD Work Phone: [facility] 10-20-2023 10:42-0400 SaO2% (BldA) [Mass fraction] 97 % Jese Manley Jr., MD Work Phone: [facility] 10-20-2023 10:42-0400 Systolic blood pressure 122 mm[Hg] Jese Manley Jr., MD Work Phone: [facility] 09-25-2023 15:35-0400 Body mass index (BMI) [Ratio] 26.9 kg/m2 Cruzito Masci DO Work Phone: [facility] 09-25-2023 15:35-0400 Body temperature 98.29 [degF] Cruzito Masci DO Work Phone: [facility] 09-25-2023 15:35-0400 Body weight 83.23 kg Cruzito Masci DO Work Phone: [facility] 09-25-2023 15:35-0400 Diastolic blood pressure 75 mm[Hg] Cruzito Masci DO Work Phone: [facility] 09-25-2023 15:35-0400 Heart rate 83 /min Cruzito Masci DO Work Phone: [facility] 09-25-2023 15:35-0400 SaO2% (BldA) [Mass fraction] 98 % Cruzito Masci DO Work Phone: [facility] 09-25-2023 15:35-0400 Systolic blood pressure 114 mm[Hg] Cruzito Masci DO Work Phone: [facility] 08-07-2023 10:40-0400 Body height 175.9 cm Cruzito Liangi DO Work Phone: [facility] 08-07-2023 10:40-0400 Body mass index (BMI) [Ratio] 25.95 kg/m2 Cruzito Masci DO Work Phone: [facility] 08-07-2023 10:40-0400 Body temperature 97.59 [degF] Cruzito Liangi DO Work Phone: [facility] 08-07-2023 10:40-0400 Body weight 80.29 kg Cruzito Liangi DO Work Phone: [facility] 08-07-2023 10:40-0400 Diastolic blood pressure 76 mm[Hg] Cruzito Liangi DO Work Phone: [facility] 08-07-2023 10:40-0400 Heart rate 90 /min Cruzito Liangi DO Work Phone: [facility] 08-07-2023 10:40-0400 SaO2% (BldA) [Mass fraction] 98 % Cruzito [employer] DO Work Phone: [facility] 08-07-2023 10:40-0400 Systolic blood pressure 112 mm[Hg] Cruzito Liangi DO Work Phone: [facility] 07-17-2023 14:07-0400 Body mass index (BMI) [Ratio] 26.09 kg/m2 Jese Manley Jr., MD Work Phone: [facility] 07-17-2023 14:07-0400 Body weight 82.46 kg Jese Manley Jr., MD Work Phone: [facility] 07-17-2023 14:07-0400 Diastolic blood pressure 76 mm[Hg] Jese Manley Jr., MD Work Phone: [facility] 07-17-2023 14:07-0400 Heart rate 84 /min Jese Manley Jr., MD Work Phone: [facility] 07-17-2023 14:07-0400 Respiratory rate 16 /min Jese Manley Jr., MD Work Phone: [facility] 07-17-2023 14:07-0400 SaO2% (BldA) [Mass fraction] 96 % Jese Manley Jr., MD Work Phone: [facility] 07-17-2023 14:07-0400 Systolic blood pressure 120 mm[Hg] Jese Manley Jr., MD Work Phone: [facility] 04-18-2023 09:50-0400 Body weight 80.2 kg Fallonrhina Cavazoser PA-C Work Phone: [facility] 04-18-2023 09:50-0400 Diastolic blood pressure 78 mm[Hg] Fallon er PA-C Work Phone: [facility] 04-18-2023 09:50-0400 Heart rate 94 /min Fallonrhina Cavazoser PA-C Work Phone: [facility] 04-18-2023 09:50-0400 Respiratory rate 16 /min Fallon Cavazoser PA-C Work Phone: [facility] 04-18-2023 09:50-0400 SaO2% (BldA) [Mass fraction] 96 % Fallonrhina Cavazoser PA-C Work Phone: [facility] 04-18-2023 09:50-0400 Systolic blood pressure 122 mm[Hg] Fallon Queener PA-C Work Phone: [facility] 12-05-2022 15:40-0400 Body mass index (BMI) [Ratio] 22.1 kg/m2 DO Madhavi Chaudhry Work Phone: [facility] 12-05-2022 15:38-0400 Body temperature 97.6 [degF] DO Madhavi Chaudhry Work Phone: [facility] 12-05-2022 15:38-0400 Diastolic blood pressure 73 mm[Hg] DO Madhavi Richa Work Phone: [facility] 12-05-2022 15:38-0400 Heart rate 92 /min DO Madhavi Richa Work Phone: [facility] 12-05-2022 15:38-0400 Respiratory rate 18 /min DO Madhavi Richa Work Phone: [facility] 12-05-2022 15:38-0400 SaO2% (BldA) [Mass fraction] 97 % DO Madhavi Richa Work Phone: [facility] 12-05-2022 15:38-0400 Systolic blood pressure 125 mm[Hg] DO Madhavi Richa Work Phone: [facility] 12-05-2022 05:29-0400 Body weight 70.2 kg DO Madhavi Richa Work Phone: [facility] 12-01-2022 13:20-0400 Body height 177.8 cm DO Madhavi Richa Work Phone: [facility] 11-24-2022 13:05-0400 Body temperature 97.1 [degF] DO Madhavi Richa Work Phone: [facility] 11-24-2022 13:05-0400 Diastolic blood pressure 77 mm[Hg] DO Madhavi Richa Work Phone: [facility] 11-24-2022 13:05-0400 Heart rate 97 /min DO Madhavi Richa Work Phone: [facility] 11-24-2022 13:05-0400 Respiratory rate 16 /min DO Madhavi Richa Work Phone: [facility] 11-24-2022 13:05-0400 SaO2% (BldA) [Mass fraction] 96 % DO Madhavi Richa Work Phone: [facility] 11-24-2022 13:05-0400 Systolic blood pressure 118 mm[Hg] DO Madhavi Chaudhry Work Phone: [facility] 11-24-2022 09:23-0400 Body height 177.8 cm DO Madhavi Chaudhry Work Phone: [facility] 11-24-2022 09:23-0400 Body weight 71 kg DO Madhavi Chaudhry Work Phone: [facility] 11-23-2022 23:13-0400 Body mass index (BMI) [Ratio] 22.4 kg/m2 DO Madhavi Chaudhry Work Phone: [facility] 11-22-2022 11:47-0400 Diastolic blood pressure 80 mm[Hg] [facility] 11-22-2022 11:47-0400 Heart rate 95 /min [facility] 11-22-2022 11:47-0400 Respiratory rate 16 /min [facility] 11-22-2022 11:47-0400 SaO2% (BldA) [Mass fraction] 98 % [facility] 11-22-2022 11:47-0400 Systolic blood pressure 100 mm[Hg] [facility] 11-22-2022 10:23-0400 Body mass index (BMI) [Ratio] 23.6 kg/m2 [facility] 11-22-2022 09:48-0400 Body height 177.8 cm [facility] 11-22-2022 09:48-0400 Body temperature 98.7 [degF] [facility] 11-22-2022 09:48-0400 Body weight 74.9 kg [facility] 01-13-2022 10:14-0500 Body height 177.8 cm Vita Colin MD Work Phone: [facility] 01-13-2022 10:14-0500 Body weight 63.78 kg Vita Colin MD Work Phone: [facility] 01-13-2022 10:14-0500 Diastolic blood pressure 64 mm[Hg] Vita Colin MD Work Phone: [facility] 01-13-2022 10:14-0500 Heart rate 92 /min Vita Colin MD Work Phone: [facility] 01-13-2022 10:14-0500 Respiratory rate 16 /min Vita Colin MD Work Phone: [facility] 01-13-2022 10:14-0500 Systolic blood pressure 118 mm[Hg] Vita Colin MD Work Phone: [facility] 12-17-2021 10:57-0500 Body temperature 97.81 [degF] Jese Manley Jr., MD Work Phone: [facility] 12-17-2021 10:57-0500 Body weight 68.04 kg Jese Manley Jr., MD Work Phone: [facility] 12-17-2021 10:57-0500 Diastolic blood pressure 68 mm[Hg] Jese Manley Jr., MD Work Phone: [facility] 12-17-2021 10:57-0500 Heart rate 110 /min Jese Manley Jr., MD Work Phone: [facility] 12-17-2021 10:57-0500 Respiratory rate 18 /min Jese Mnaley Jr., MD Work Phone: [facility] 12-17-2021 10:57-0500 SaO2% (BldA) [Mass fraction] 99 % Jese Manley Jr., MD Work Phone: [facility] 12-17-2021 10:57-0500 Systolic blood pressure 138 mm[Hg] Jese Manley Jr., MD Work Phone: [facility] 10-13-2021 15:10-0400 Diastolic blood pressure 82 mm[Hg] [facility] Work Phone: 10-13-2021 15:10-0400 Heart rate 85 /min [facility] Work Phone: 10-13-2021 15:10-0400 Respiratory rate 18 /min [facility] Work Phone: 10-13-2021 15:10-0400 SaO2% (BldA) [Mass fraction] 98 % [facility] Work Phone: 10-13-2021 15:10-0400 Systolic blood pressure 135 mm[Hg] [facility] Work Phone: 10-13-2021 10:58-0400 Body height 177.8 cm [facility] Work Phone: 10-13-2021 10:58-0400 Body mass index (BMI) [Ratio] 21.2 kg/m2 [facility] Work Phone: 10-13-2021 10:58-0400 Body temperature 97.2 [degF] [facility] Work Phone: 10-13-2021 10:58-0400 Body weight 67.13 kg [facility] Work Phone: 08-04-2021 20:18-0400 Diastolic blood pressure 78 mm[Hg] [facility] Work Phone: 08-04-2021 20:18-0400 Heart rate 109 /min [facility] Work Phone: 08-04-2021 20:18-0400 Respiratory rate 27 /min [facility] Work Phone: 08-04-2021 20:18-0400 SaO2% (BldA) [Mass fraction] 97 % [facility] Work Phone: 08-04-2021 20:18-0400 Systolic blood pressure 123 mm[Hg] [facility] Work Phone: 08-04-2021 15:05-0400 Body height 177.8 cm [facility] Work Phone: 08-04-2021 15:05-0400 Body mass index (BMI) [Ratio] 24.6 kg/m2 [facility] Work Phone: 08-04-2021 15:05-0400 Body temperature 98 [degF] [facility] Work Phone: 08-04-2021 15:05-0400 Body weight 77.9 kg [facility] Work Phone: 05-12-2021 15:00-0400 Body height 177.8 cm Willa Jay FILE CONVERSION OPERATOR.QA ANALYST Work Phone: [facility] 05-12-2021 15:00-0400 Body weight 81.28 kg Willa Jay FILE CONVERSION OPERATOR.QA ANALYST Work Phone: [facility] 05-12-2021 15:00-0400 Diastolic blood pressure 72 mm[Hg] Willa Jay FILE CONVERSION OPERATOR.QA ANALYST Work Phone: [facility] 05-12-2021 15:00-0400 Heart rate 92 /min Willa Jay FILE CONVERSION OPERATOR.QA ANALYST Work Phone: [facility] 05-12-2021 15:00-0400 SaO2% (BldA) [Mass fraction] 97 % Willa Jay FILE CONVERSION OPERATOR.QA ANALYST Work Phone: [facility] 05-12-2021 15:00-0400 Systolic blood pressure 116 mm[Hg] Willa Jay FILE CONVERSION OPERATOR.QA ANALYST Work Phone: [facility] Encounters Encounter Date Encounter Type Care Provider Facility Start: 09-16-2024 End: 09-16-2024 ambulatory Kang Roach PT [facility] Physical Therapy Comment on above: Abnormality of gait (Primary Dx); Parkinsonism, unspecified Parkinsonism type (HCC) Start: 09-05-2024 End: 09-06-2024 Refill Cruzito Hart DO Work Phone: Hematology/Oncology Comment on above: Refill Request Start: 08-06-2024 End: 08-06-2024 Patient encounter procedure Cruzito Hart DO Work Phone: Hematology/Oncology Start: 08-06-2024 End: 08-06-2024 ambulatory Cruzito Hart DO Work Phone: Hematology/Oncology Comment on above: Elevated factor VIII level (Primary Dx) Start: 07-29-2024 End: 07-29-2024 ambulatory Kang Roach PT [facility] Physical Therapy Comment on above: Parkinsonism, unspec ified Parkinsonism type (HCC) (Primary Dx); Abnormality of gait Start: 07-12-2024 End: 07-12-2024 Patient encounter procedure Jese Manley MD Work Phone: Neurology Comment on above: Parkinsonism, unspec ified Parkinsonism type (HCC) (Primary Dx); Abnormality of gait; Recurrent strokes (HCC); History of DVT (deep vein thrombosis); 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 Fabien Leal DP -Cardiovascular Services Work Phone: Start: 05-01-2024 End: 05-01-2024 ambulatory Fabien Leal Facility:[facility] Start: 03-12-2024 End: 03-13-2024 Refill Cruzito Hart DO Work Phone: Hematology/Oncology Comment on above: Refill Request Start: 02-29-2024 End: 02-29-2024 Patient encounter procedure Iain HERRMANN -[facility] Work Phone: Start: 02-29-2024 End: 02-29-2024 ambulatory Madhavi Chaudhry [place] Start: 01-26-2024 End: 01-26-2024 ambulatory FALLON STEINER Facility:[facility] Start: 01-26-2024 End: 01-26-2024 Discharged Recurring FALLON STEINER PA -Physical Therapy Work Phone: Start: 01-12-2024 End: 01-12-[address] Tracie Maldonado MD -Laboratory, [facility] Start: 01-11-2024 End: 01-12-2024 Refill Fallon Steiner PA-C Work Phone: Neurology Comment on above: Refill Request Start: 12-21-2023 End: 12-21-2023 Telephone encounter Fallon Steiner PA-C Work Phone: Neurology Comment on above: Patient Request Start: 12-06-2023 End: 12-06-2023 E-mail encounter from caregiver Fallon Steiner PA-C Work Phone: Neurology Start: 12-06-2023 End: 12-06-2023 Telephone encounter Fallon Steiner PA-C Work Phone: Neurology Start: 12-06-2023 End: 12-06-2023 Patient encounter procedure Fallon Steiner PA-C Work Phone: Neurology Comment on above: Parkinsonism, unspec ified Parkinsonism type (HCC) (Primary Dx); Recurrent strokes (HCC); History of DVT (deep vein thrombosis); 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; Cerebral infarction, unspecified mechanism (HCC); Cerebrovascular accident (CVA), unspecified mechanism (HCC); Left arm weakness; Pain in finger of left hand; Cervicalgia Start: 12-06-2023 End: 12-06-2023 ambulatory Fallon Steiner PA-C Work Phone: Neurology Comment on above: Parkinsons exercise classes Start: 11-14-2023 End: 11-15-2023 Refill Jese Manley MD Work Phone: Neurology Comment on above: Med Change Request Start: 11-09-2023 End: 11-09-2023 ambulatory Iain López NP Facility[place] Start: 10-20-2023 End: 10-20-2023 Telephone encounter Jese Manley MD Work Phone: Neurology Start: 10-20-2023 End: 10-20-2023 Patient encounter procedure Jese Manley MD Work Phone: Neurology Comment on above: Recurrent strokes (H CC) (Primary Dx); History of DVT (deep vein thrombosis); 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; Parkinsonism, unspecified Parkinsonism type (HCC) Start: 10-20-2023 End: 10-20-2023 ambulatory JESE MANLEY JR Facility:[facility] Start: 10-03-2023 End: 10-03-2023 Telephone encounter Cruzito Hart DO Work Phone: Hematology/Oncology Comment on above: Medication Question Start: 10-01-2023 End: 10-01-2023 Telephone encounter Cruzito Hart DO Work Phone: Hematology/Oncology Comment on above: Opened In Error Start: 09-25-2023 End: 09-25-2023 ambulatory Cruzito Hart DO Work Phone: Hematology/Oncology Comment on above: Elevated factor VIII level (Primary Dx); Chronic deep vein thrombosis (DVT) of femoral vein of right lower extremity (HCC); Recurrent strokes (HCC); Presence of IVC filter Start: 09-25-2023 End: 09-25-2023 Patient encounter procedure Cruzito Hart DO Work Phone: Hematology/Oncology Start: 09-14-2023 End: 10-03-2023 Telephone encounter Jese Manley MD Work Phone: Neurology Comment on above: Results Start: 09-12-2023 Telephone encounter Cruzito ramirez DO Work Phone: Hematology/Oncology Comment on above: Results Start: 09-05-2023 Telephone encounter Jese Manley MD Work Phone: [facility] Comment on above: Patient Question Start: 08-21-2023 End: 08-21-2023 Subsequent hospital visit by physician [facility] (I-Stat/1.5t) Work Phone: Radiology Comment on above: Cerebral infarction, unspecified mechanism (HCC) [I63.9] Start: 08-17-2023 Telephone encounter Jese Manley MD Work Phone: Neurology Comment on above: Patient Update Start: 08-07-2023 Telephone encounter Cruzito ramirez DO Work Phone: Hematology/Oncology Comment on above: Follow Up Start: 08-07-2023 End: 08-07-2023 ambulatory Cruzito Hart DO Work Phone: Hematology/Oncology Comment on above: Recurrent strokes (H CC) (Primary Dx); Chronic deep vein thrombosis (DVT) of femoral vein of right lower extremity (HCC); Presence of IVC filter Start: 08-07-2023 End: 08-07-2023 Patient encounter procedure Cruzito Hart DO Work Phone: Hematology/Oncology Start: 07-27-2023 End: 07-27-2023 ambulatory Tracie Maldonado Facility:[facility] Start: 07-25-2023 Telephone encounter Jese Manley MD Work Phone: Neurology Comment on above: Release Of Medical R ecords Start: 07-18-2023 Telephone encounter Cruzito Ramos james DO Work Phone: Hematology/Oncology Comment on above: New Patient Start: 07-17-2023 End: 07-17-2023 Patient encounter procedure Jese Manley MD Work Phone: Neurology Comment on above: Recurrent strokes (H CC) (Primary Dx); Cerebral infarction, unspecified mechanism (HCC) Start: 07-17-2023 End: 07-17-2023 ambulatory Madhavi Chaudhry Facility:[facility] Start: 05-19-2023 End: 05-19-2023 ambulatory CATHLEEN GOEL Facility:[id number] Start: 05-19-2023 End: 05-19-2023 ambulatory Cathleen Goel OT/L [facility] [place] Comment on above: Cerebrovascular acci dent (CVA), unspecified mechanism (HCC) (Primary Dx); Language impairment; 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 She indicated that there had not been as far as she is aware but did verbalize concerns related to his purchasing a new vehicle without any assist from another adult while she does feel he was taken advantage of which she worries about. She is hoping he does well BTW but fears future strokes.) Start: 05-04-2023 End: 05-04-2023 ambulatory Cathleen Amaya Boyd OT/[facility] [place] Comment on above: Language impairment (Primary Dx); Cerebrovascular accident (CVA), unspecified mechanism (HCC) Start: 04-30-2023 Refill Vikash kirby MD Work Phone: [facility] Cardiology [place] Comment on above: Refill Request Start: 04-20-2023 Telephone encounter Fallon myers PALawrence Work Phone: Neurology Comment on above: Patient Question Start: 04-18-2023 End: 04-18-2023 Patient encounter procedure Fallon Steiner PA-C Work Phone: Neurology Comment on above: Cerebrovascular acci dent (CVA), unspecified mechanism (HCC) (Primary Dx); Left arm weakness; Cognitive developmental delay Start: 01-05-2023 End: 01-05-2023 ambulatory DO Madhavi Chaudhry Work Phone: [facility] Work Phone: Start: 01-05-2023 End: 01-05-2023 Patient encounter procedure DO Madhavi Chaudhry Work Phone: [facility] Work Phone: Start: 12-14-2022 End: 12-14-2022 ambulatory DO Madhavi Chaudhry Work Phone: [facility] Work Phone: Start: 12-14-2022 End: 12-14-2022 Patient encounter procedure DO Madhavi Chaudhry Work Phone: [facility] Start: 12-05-2022 Non-patient / Non-visit DO Lor Chaudhry Work Phone: [facility] Work Phone: Start: 12-01-2022 Non-patient / Non-visit DO Kri stin Richa Work Phone: [facility] Work Phone: Start: 11-29-2022 Non-patient / Non-visit DO Kri stin Richa Work Phone: [facility] Work Phone: Start: 11-28-2022 Non-patient / Non-visit DO Kri stin Richa Work Phone: [facility] Work Phone: Start: 11-24-2022 Non-patient / Non-visit DO Kri stin Richa Work Phone: [facility] Work Phone: Start: 11-24-2022 End: 12-05-2022 Evaluation and management of inpatient DO Madhavi Richa Work Phone: [facility]-Rehab Unit Work Phone: Start: 11-23-2022 End: 11-24-2022 Evaluation and management of inpatient DO Madhavi Richa Work Phone: [facility]-Intensive Care Unit Work Phone: Start: 11-23-2022 Non-patient / Non-visit DO Kri stin Richa Work Phone: [facility] Work Phone: Start: 11-22-2022 Non-patient / Non-visit DO Kri stin Richa Work Phone: [facility] Start: 11-22-2022 Evaluation and management of inpatient [facility]-Intensive Care Unit Work Phone: Start: 11-22-2022 observation encounter [facility] Work Phone: Start: 07-08-2022 Refill Vikash kirby MD Work Phone: [facility] Cardiology [place] Comment on above: Refill Request Start: 05-27-2022 Refill Willa rebolledo FILE CONVERSION OPERATOR.QA ANALYST Work Phone: [facility] Comment on above: Refill Request Start: 05-20-2022 Refill Willa rebolledo FILE CONVERSION OPERATOR.QA ANALYST Work Phone: [facility] Comment on above: Refill Request Start: 05-20-2022 Telephone encounter Vikash Marin MD Work Phone: [facility] Cardiology Comment on above: Appointment Start: 05-02-2022 Non-patient / Non-visit DO Lor Chaudhry Work Phone: [facility] Start: 05-02-2022 End: 05-02-2022 ambulatory DO Madhavi Chaudhry Work Phone: [facility] Work Phone: Start: 05-02-2022 End: 05-02-2022 Patient encounter procedure DO Madhavi Chaudhry Work Phone: [facility]-Cardiovascu lar Services Start: 04-25-2022 End: 04-25-2022 Patient encounter procedure DO Madhavi Chaudhry Work Phone: [facility] Start: 03-31-2022 Telephone encounter Jese Manley MD Work Phone: Neurology Comment on above: Information Start: 03-17-2022 End: 03-17-2022 ambulatory DO Madhavi Chaudhry Work Phone: [facility] Work Phone: Start: 03-17-2022 End: 03-17-2022 Discharged Recurring DO Madhavi Chaudhry Work Phone: [facility]-Physical Therapy Start: 03-17-2022 Registered Recurring DO Sheree Chaudhry Work Phone: [facility]-Physical Therapy Start: 02-16-2022 End: 02-16-2022 ambulatory Cathleen A Boyd OT/L [facility] [place] Comment on above: 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 Start: 01-13-2022 End: 01-13-2022 Patient encounter procedure Vita Colin MD Work Phone: [facility] Cardiac, Thoracic, [facility] Vascular Specialties Comment on above: Deep vein thrombosis (DVT) of femoral vein, unspecified chronicity, unspecified laterality (HCC) Start: 01-05-2022 Telephone encounter Jese Manley MD Work Phone: Neurology Comment on above: Orders [facility] Netw rk requesting records Start: 01-04-2022 Telephone encounter Jese Manley MD Work Phone: Neurology Comment on above: Results Start: 12-29-2021 End: 12-29-2021 Patient encounter procedure [facility] Work Phone: Vasculary Surgery Comment on above: Deep vein thrombosis (DVT) of popliteal vein of right lower extremity, unspecified chronicity (HCC) Start: 12-28-2021 Telephone encounter Jese Manley MD Work Phone: Neurology Comment on above: Results Start: 12-27-2021 End: 12-27-2021 Patient encounter procedure Echocardiogram Wstr Work Phone: Cardiology Comment on above: 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) Start: 12-24-2021 End: 12-24-2021 Subsequent hospital visit by physician Ct [facility] (I-Stat) Work Phone: Cat Scan Comment on above: 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) [I63.412] Start: 12-21-2021 End: 12-21-2021 Patient encounter procedure [facility]-Cardiovascu lar Services Start: 12-17-2021 End: 12-17-2021 Patient encounter procedure Jese Manley MD Work Phone: Neurology Comment on above: 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); History of DVT (deep vein thrombosis); Deep vein thrombosis (DVT) of popliteal vein of right lower extremity, unspecified chronicity (HCC); 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 Start: 12-16-2021 Telephone encounter Jese Manley MD Work Phone: Neurology Comment on above: Appointment Start: 12-01-2021 End: 12-01-2021 ambulatory [facility] Work Phone: Start: 12-01-2021 End: 12-01-2021 Discharged Recurring [facility]-Speech Therapy Start: 11-05-2021 End: 11-05-2021 ambulatory [facility] Work Phone: Start: 11-05-2021 End: 11-05-2021 Patient encounter procedure [facility] Start: 10-13-2021 End: 10-13-2021 Emergency department patient visit [facility]-Emergency Department Start: 10-05-2021 [facility] Start: 08-04-2021 End: 08-04-2021 Emergency department patient visit [facility]-Emergency Department Start: 08-04-2021 [facility] Start: 06-30-2021 Telephone encounter Adriana abreu MD Work Phone: [place] [facility] Comment on above: modified [place] scor e Start: 06-28-2021 Telephone encounter Willa mcelroy APRN.CNP Work Phone: [facility] Cardiology Comment on above: Results Start: 06-11-2021 Registered Recurring [facility] Start: 06-08-2021 End: 06-08-2021 Subsequent hospital visit by physician Holter/Event Monitor [facility] Comment on above: Shortness of breath [R06.02] Start: 06-02-2021 [facility]phone [facility] Comment on above: Orders ([place] [facility] - ord er contact/deferral) Start: 05-12-2021 End: 05-12-2021 Patient encounter procedure Willa Jay FILE CONVERSION OPERATOR.QA ANALYST Work Phone: [facility] [place] Comment on above: Shortness of breath Start: 05-06-2021 Telephone encounter [facility] Comment on above: Orders ([place] [facility] - jennifer t contact/SNF letter 2) Procedures Date Procedure Procedure Detail Performing Clinician Start: 08-21-2023 End: 08-21-2023 Mra head w/o contrst material Jese Manley MD Work Phone: Start: 01-05-2023 CT of head without contrast DO Madhavi Chaudhry Work Phone: Start: 2022 Measurement of occul t blood in stool specimen using immunoassay DO Madhavi Chaudhry Work Phone: Start: 11-22-2022 MRI of brain without contrast DO Madhavi Chaudhry Work Phone: Start: 11-22-2022 CT of head without contrast Start: 11-22-2022 Plain chest X-ray Start: 12-29-2021 Dup-scan xtr veins complete bilateral study Jese Manley MD Work Phone: Start: 12-27-2021 Echo transthorac r-t 2d w/wo m-mode rec comp Jese Manley MD Work Phone: Start: 12-27-2021 LVEF ECHO WITH AGITA MAILE SALINE CONTRAST Jese Manley MD Work Phone: Start: 12-24-2021 Ct head/brain w/o co ntrast material Jese Manley MD Work Phone: Start: 10-13-2021 Plain chest X-ray Start: 08-04-2021 Plain chest X-ray Start: 08-04-2021 CT of head without contrast Start: 06-08-2021 Myocardial spect mul tiple studies Willa Jay APRN.QA ANALYST Work Phone: Urine culture Viral antigen assay Plan of Treatment Date Care Activity Detail Author Start: 11-27-2027 RSV Vaccine (1 - 1-d ose 75+ series) RSV Vaccine (1 - 1-dose 75+ series) [facility] Start: 08-06-2025 End: 08-06-2025 ambulatory 08/06/2025 11:10 AM EDT Visit (SP) Office Hematology/Oncology [address] [place] [address] Cruzito Hart DO [address] [place] [address] 1YR OV* Hematology/Oncology Comment on above: 1YR OV* Start: 11-12-2024 End: 11-12-2024 Patient encounter procedure 11/12/2024 12:30 PM EDT Office Visit Neurology [address] [place] [address] Fallon Steiner PA-C [address] [place] [address] 4 month follow up, [address] Manley Neurology Comment on above: 4 month follow up, [address] Manley Start: 10-07-2024 Influenza vaccination [facility] Start: 09-16-2024 End: 09-16-2024 ambulatory 09/16/2024 10:45 AM EDT OT/PT/Speech Visit [facility] [address] [place] [address] Kang Roach PT G20.C (ICD-10-CM) - Parkinsonism, unspecified Parkinsonism type (HCC) [facility] Comment on above: G20.C (ICD-10-CM) - Parkinsonism, unspecified Parkinsonism type (HCC) Start: 08-06-2024 End: 08-06-2024 Follow-up encounter 08/06/2024 4:00 PM EDT Visit (SP) Office Hematology/Oncology [address] [place], [place] [address] Cruzito Hart DO [address] [place] [address] follow up per Sindhu Hematology/Oncology Comment on above: follow up per Sindhu Start: 08-06-2024 End: 11-05-2024 C reactive protein [Mass/volume] in Serum or Plasma [facility] Comment on above: Expected: 08/06/2024 , Expires: 11/05/2024 Start: 08-06-2024 End: 11-05-2024 Coagulation factor VIII activity actual/normal in Platelet poor plasma by Coagulation assay [facility] Work Phone: Comment on above: Expected: 08/06/2024 , Expires: 11/05/2024 Start: 07-29-2024 End: 07-29-2024 ambulatory 07/29/2024 2:00 PM EDT OT/PT/Speech Visit [facility] Physical Therapy [address] [place], [place] [address] Kang Roach, PT Parkinsonism, unspecified Parkinsonism type (HCC) [G20.C] [facility] Physical Therapy Comment on above: Parkinsonism, unspec ified Parkinsonism type (HCC) [G20.C] Start: 07-12-2024 End: 07-12-2024 Patient encounter procedure 07/12/2024 1:00 PM EDT Office Visit Neurology [address] [place] [address] [id number] Jese Manley Jr., MD [address] [place], [place] [id number] PD, hx of DVT, aphasia, CVA. arm weakness- matheus 10/30 MQ increase sinemet 1.5 tablets TID, cont PT Neurology Comment on above: PD, hx of DVT, aphas ia, CVA. arm weakness- matheus 10/30 MQ increase sinemet 1.5 tablets TID, cont PT Start: 06-03-2024 End: 06-03-2024 Patient encounter procedure 06/03/2024 11:00 AM EDT Office Visit Neurology [address] [place], [place] [address] Jese Manley Jr., MD [address] [place], [place] [address] PD, hx of DVT, aphasia, CVA. arm weakness- matheus 12/05 MQ increase sinemet 1.5 tablets TID, cont PT Neurology Comment on above: PD, hx of DVT, aphas ia, CVA. arm weakness- matheus 12/05 MQ increase sinemet 1.5 tablets TID, cont PT Start: 03-08-2024 End: 03-08-2024 Patient encounter procedure 03/08/2024 10:40 AM EST Office Visit Neurology [address] [place], [place] [address] Jese Manley Jr., MD [address] [place] [address] [phone] follow up Neurology Comment on above: follow up Start: 02-07-2024 Advance Directive Discussion Advance Directive Discussion [facility] Start: 12-06-2023 End: 12-06-2023 Patient encounter procedure 12/06/2023 12:30 PM EDT Office Visit Neurology [address] [place], [place] [id number] Fallon Steiner PA-C [address] [place], [place] [phone] follow up 10/20/23 [facility] Neurology Comment on above: follow up 10/20/23 [facility]us Start: 10-20-2023 End: 10-20-2023 Patient encounter procedure 10/20/2023 10:40 AM EDT Office Visit Neurology [address] [place], [place] [address] Jese Manley Jr., MD [address] [phone] Follow up Hx stroke Neurology Comment on above: Follow up Hx stroke Start: 10-08-2023 Covid-19 Vaccine ( season) Covid-19 Vaccine ( season) [facility] Start: 10-08-2023 Covid-19 Vaccine ( season) Covid-19 Vaccine ( season) [facility] Start: 10-08-2023 Influenza vaccination C [facility] Start: 09-25-2023 End: 09-25-2023 ambulatory 09/25/2023 3:50 PM EDT Visit (SP) Office Hematology/Oncology [address] [place] [phone] Cruzito Hart DO [address] [place] [address] OV/LAB 09/12* Hematology/Oncology Comment on above: OV/LAB 09/12* Start: 09-12-2023 End: 12-12-2023 Coagulation factor VIII activity actual/normal in Platelet poor plasma by Coagulation assay FACTOR VIII:C ASSAY Lab Routine Elevated factor VIII level Expected: 09/12/2023, Expires: 12/12/[address] [facility] Work Phone: Comment on above: Expected: 09/12/2023 , Expires: 12/12/2023 Start: 08-21-2023 End: 08-21-2023 Patient encounter procedure Radiology Comment on above: Cerebral infarction, unspecified mechanism (HCC) [I63.9] Start: 08-21-2023 End: 08-21-2023 ambulatory 08/21/2023 2:00 PM EDT Results Only [place] [facility] Laboratory [address] [place] [address] LAB* [facility] Comment on above: LAB* Start: 08-07-2023 End: 11-06-2023 HYPERCOAG DIAG PNL HYPERCOAG DIAG PNL Lab Routine Recurrent strokes (HCC) Chronic deep vein thrombosis (DVT) of femoral vein of right lower extremity (HCC) Presence of IVC filter Expected: 08/07/2023, Expires: 11/06/[address] [facility] Work Phone: Comment on above: Expected: 08/07/2023 , Expires: 11/06/2023 Start: 08-07-2023 End: 08-07-2023 Visit (SP) Office 08/07/2023 11:10 AM EDT Visit (SP) Office Hematology/Oncology [address] [place] [address] Cruzito Hart DO [address] [place] [address] new patient/ dx: Recurrent strokes (HCC) [I63.9] eval for possible hypercoag disorder with pt having had multiple strokes in past 2-3 years. Hematology/Oncology Comment on above: new patient/ dx: Rec urrent strokes (HCC) [I63.9] eval for possible hypercoag disorder with pt having had multiple strokes in past 2-3 years. Start: 02-06-2023 Advance Directive Discussion Advance Directive Discussion [facility] Start: 02-06-2023 Behavioral Health Screening Behavioral Health Screening [facility] Start: 02-06-2023 Depression Assessment Depression Ass essment [facility] Start: 12-05-2022 Patient discharge [facility] Start: 12-01-2022 Referral to service [facility] Start: 11-28-2022 [facility] Start: 11-28-2022 Chart related administrative procedure [facility] Start: 11-25-2022 Following clinical pathway protocol [facility] Start: 11-24-2022 Recommendation to continue with treatment [facility] Start: 11-24-2022 Referral to service [facility] Start: 11-24-2022 Urinary bladder training [facility] Start: 11-24-2022 Admission procedure [facility] Start: 11-24-2022 Patient referral to dietitian [facility] Start: 11-24-2022 Referral to occupati onal therapist [facility] Start: 11-24-2022 Vital signs measurements [facility] Start: 11-24-2022 [facility] Start: 11-24-2022 Patient discharge [facility] Start: 11-24-2022 Speech therapy assessment [facility] Start: 11-23-2022 Admission procedure [facility] Start: 11-23-2022 Verification routine [facility] Start: 11-22-2022 Telepractice consultation [facility] Start: 11-22-2022 Speech therapy assessment [facility] Start: 11-22-2022 Application of intermittent pneumatic compression device [facility] Start: 11-22-2022 Ambulation without limitation [facility] Start: 11-22-2022 Assessment of risk o f venous thromboembolism [facility] Start: 11-22-2022 Cardiac monitoring [facility] Start: 11-22-2022 Catheterization of vein [facility] Start: 11-22-2022 Continuous pulse oximetry [facility] Start: 11-22-2022 Elevation of head of bed [facility] Start: 11-22-2022 Exercises [facility] Start: 11-22-[address] anned interventions [facility] Start: 11-22-2022 Insertion of cathete r into peripheral vein [facility] Start: 11-22-2022 Notification of physician [facility] Start: 11-22-2022 Oxygen therapy [facility] Start: 11-22-2022 Providing care accor ding to standard [facility] Start: 11-22-2022 Referral to occupati onal therapist [facility] Start: 11-22-2022 Referral to service [facility] Start: 11-22-2022 Tobacco use cessatio n education [facility] Start: 11-22-2022 [facility] Start: 11-22-2022 Vital signs measurements [facility] Start: 11-22-2022 Admission procedure [facility] Start: 11-22-2022 Following clinical pathway protocol [facility] Start: 11-22-2022 Hospital admission, emergency, from emergency room, medical nature [facility] Start: 11-22-2022 Oxygen therapy [facility] Start: 11-22-2022 End: 11-22-2022 [facility] Start: 10-07-2022 Covid-19 Vaccine ( season) Covid-19 Vaccine ( season) [facility] Start: 10-07-2022 Influenza vaccination C [facility] Start: 04-02-2022 Hepatitis B surface antibody level LDL CHOLESTEROL [facility] Start: 02-06-2022 ADVANCE DIRECTIVE DISCUSSION ADVANCE DIRECTIVE DISCUSSION [facility] Start: 02-06-2022 DEPRESSION ASSESSMENT DEPRESSION ASS ESSMENT [facility] Start: 10-13-2021 End: 10-13-2021 [facility] Work Phone: Start: 10-07-2021 Influenza vaccination C [facility] Start: 06-30-2021 Hemoglobin A1c measurement HbA1C [facility] Start: 06-30-2021 Hemoglobin A1c/Hemoglobin.total in Blood HBA1C [facility] Start: 06-11-2021 End: 06-11-2022 NM CARDIAC PERF STRESS/PHARM NM CARDIAC PERF STRESS/PHARM Radiology Routine Shortness of breath Expected: 06/11/2021, Expires: 06/11/[address] [facility] Work Phone: Comment on above: Expected: 06/11/2021 , Expires: 06/11/2022 Start: 05-26-2021 End: 05-12-2022 EXTENDED WEAR TRIAGE LICENSED PRACTICAL NURSE PATCH EXTENDED WEAR TRIAGE LICENSED PRACTICAL NURSE PATCH ECG Routine Shortness of breath Expected: 05/26/2021, Expires: 05/12/[address] [facility] Work Phone: Comment on above: Expected: 05/26/2021 , Expires: 05/12/2022 Start: 05-07-2021 Medicare Annual Well ness Visit Medicare Annual Wellness Visit [facility] Start: 02-06-2021 ADVANCE DIRECTIVE DISCUSSION ADVANCE DIRECTIVE DISCUSSION [facility] Start: 02-06-2021 DEPRESSION ASSESSMENT DEPRESSION ASS ESSMENT [facility] Start: 2017 PNEUMOVAX AGE 65 AND OVER WITH 5YR LOOKBACK (#1) PNEUMOVAX AGE 65 AND OVER WITH 5YR LOOKBACK (#1) [facility] Start: 2012 Hepatitis B Vaccine (1 of 3 - Risk 3-dose series) Hepatitis B Vaccine (1 of 3 - Risk 3-dose series) [facility] Start: 2012 RSV Vaccine (1 - 1-d ose 60+ series) RSV Vaccine (1 - 1-dose 60+ series) [facility] Start: 11-27-2007 PROSTATE CANCER SCRE ENING DISCUSSION PROSTATE CANCER SCREENING DISCUSSION [facility] Start: 2002 SHINGRIX VACCINE (1 of 2) FARMER GRIX VACCINE (1 of 2) [facility] Start: 1997 COLOGUARD (FIT-DNA) COLOGUARD (FIT-D NA) [facility] Start: 1997 Colonoscopy COLONOSCOPY [facility] Start: 1997 COLORECTAL CANCER SCREENING COLORECTAL CANCER SCREENING [facility] Start: [address] COLONOGRAPHY [facility] Start: 1997 FECAL OCCULT BLOOD FECAL OCCULT BLOO D [facility] Start: 1997 Screening for malign ant neoplasm of colon [facility] Start: 1997 SIGMOIDOSCOPY SIGMOIDOSCOPY [facility] Start: 11-27-1971 Pneumococcal Vaccine : 50+ (1 of 2 - PCV) Pneumococcal Vaccine: 50+ (1 of 2 - PCV) [facility] Start: 11-27-1971 Urine microalbumin profile [facility] Start: 1970 ANNUAL PCP TEAM BACKHOE OPERATOR MARGUERITE DISEASE VISIT ANNUAL PCP TEAM CHRONIC DISEASE VISIT [facility] Start: 1970 Anxiety Screening Anxiety Screening [facility] Start: 1970 Depression Screening Depression Scre ening [facility] Start: 1970 HEPATITIS C SCREENING HEPATITIS C [facility] Start: 1970 Hepatitis C screening Hepatitis C [facility] Start: 1964 Adult depression screening assessment DEPRESSION SCREENING [facility] Start: 1962 3 comp foot exam completed DIABETIC FOOT EXAM [facility] Start: 1962 Diabetic foot examination Diabetic F oot Exam [facility] Start: 1962 Glaucoma screening Dilated Retinal E xam [facility] Start: 1962 Hepatitis B screening URINE ALBUMIN:CREATININE RATIO [facility] Start: 1962 Hepatitis C antibody , confirmatory test DILATED RETINAL EXAM [facility] Start: 1958 Pneumococcal Vaccine : 65+ (1 - PCV) Pneumococcal Vaccine: 65+ (1 - PCV) [facility] Start: 1958 Pneumococcal Vaccine : 65+ (1 of 2 - PCV) Pneumococcal Vaccine: 65+ (1 of 2 - PCV) [facility] Start: 1958 PNEUMOCOCCAL: 65+ (1 - PCV) PNEUMOCOCCAL: 65+ (1 - PCV) [facility] Start: 1957 COVID-19 VACCINE (#1) COVID-19 VACCI NE (#1) [facility] Start: 1957 COVID-19 VACCINE (1) Cl [facility] Start: 05-27-1953 COVID-19 VACCINE (#1) COVID-19 VACCI NE (#1) [facility] Bacteria identified in Urine by Culture Urine Culture [facility] Work Phone: Coagulation factor V III activity actual/normal in Platelet poor plasma by Coagulation assay FACTOR VIII:C ASSAY Lab Routine Elevated factor VIII level 09/13/2023 11:10 AM EDT [facility] End: 01-16-[address]23 CT BRAIN WO IVCON CT BRAIN WO IVCON Radiology Routine 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 Work Phone: Comment on above: 1 Occurrences starti ng 12/17/2021 until 12/17/2022 End: 06-08-2021 EXTENDED WEAR TRIAGE LICENSED PRACTICAL NURSE PATCH EXTENDED WEAR TRIAGE LICENSED PRACTICAL NURSE PATCH ECG Routine Shortness of breath 1 Occurrences starting 06/08/2021 until 06/08/[address] [facility] Work Phone: Comment on above: 1 Occurrences starti ng 06/08/2021 until 06/08/2021 End: 08-15-2024 MRA Head vessels WO contrast MRA BRAIN WO IVCON Radiology Routine Cerebral infarction, unspecified mechanism (HCC) 1 Occurrences starting 07/17/2023 until 08/15/[address] [facility] Work Phone: Comment on above: 1 Occurrences starti ng 07/17/2023 until 08/15/2024 End: 08-15-2024 MRA Neck vessels WO contrast MRA CAROTID WO IVCON Radiology Routine Cerebral infarction, unspecified mechanism (HCC) 1 Occurrences starting 07/17/2023 until 08/15/2024 [facility] Comment on above: 1 Occurrences starti ng 07/17/2023 until 08/15/2024 OUTSIDE VENDOR CARDI AC OUTPATIENT EXTENDED RHYTHM RECORDING (WITHOUT TELEMETRY) OUTSIDE VENDOR CARDIAC OUTPATIENT EXTENDED RHYTHM RECORDING (WITHOUT TELEMETRY) Holter Routine Recurrent strokes (HCC) Ordered: 07/17/2023 [facility] Comment on above: Ordered: 07/17/2023 OUTSIDE VENDOR CARDI AC OUTPATIENT EXTENDED RHYTHM RECORDING (WITHOUT TELEMETRY) OUTSIDE VENDOR CARDIAC OUTPATIENT EXTENDED RHYTHM RECORDING (WITHOUT TELEMETRY) Holter Routine Recurrent strokes (HCC) Ordered: 08/17/[address] [facility] Work Phone: Comment on above: Ordered: 08/17/2023 Patient Education [facility] Work Phone: Patient referral [facility] Work Phone: SARS-CoV-2 (COVID-19 ) RNA [Presence] in Respiratory specimen by ADELA with probe detection SELF CHECK COVID Microbiology Routine Shortness of breath Ordered: 05/12/[address] [facility] Work Phone: Comment on above: Ordered: 05/12/2021 End: 12-17-2022 US LEG VEIN DVT [facility] US LEG VEIN DVT [facility] Vascular Lab Routine Deep vein thrombosis (DVT) of popliteal vein of right lower extremity, unspecified chronicity (HCC) 1 Occurrences starting 12/17/2021 until 12/17/[address] [facility] Work Phone: Comment on above: 1 Occurrences starti ng 12/17/2021 until 12/17/2022 [facility] Payers Date Payer Category Payer Self-pay [id number] 2021 Private Health Insurance [facility] AARP SUPPLEMENT [id number] 2021-Present [phone] [address] [place] [address] Indemnity [id number] 2021 Private Health Insurance [id number] 2021 Unknown [id number] 2017 Medicare MEDICARE MEDICAR E A AND B [id number] 2017-Present [phone] [address] [address] [place] [address] Medicare [id number] 2017 Medicare [id number] 2017 Medicare [id number] 2017 Unknown MMO MMO SUPERMED PLUS [id number] 2017-Present [phone] [address] [place] [address] PPO [id number] Private Health Insurance [id number] Unknown [id number] Unknown [id number] Unknown [id number] Unknown [facility] [id number] Unknown [id number] Unknown [id number] Unknown [id number] Unknown [id number] Unknown [id number] Unknown [id number] Unknown [id number] Social History Date Type Detail Facility Start: 08-04-2021 End: 12-05-2022 Tobacco smoking status MIIS Tobacco smoking consumption unknown [facility] Start: 1950 Sex Assigned At Not on file [facility] Start: 05-12-2021 End: 01-13-2022 Tobacco smoking status MIIS Never smoked tobacco [facility] Start: 05-12-2021 End: 01-13-2022 Tobacco use and exposure Smokeless tobacco non-user [facility] Start: 05-12-2021 End: 08-06-2024 Alcohol intake Lifetime non-drinker (finding) [facility] Start: 05-12-2021 History SDOH Alcohol Frequency 1 [facility] Start: 05-02-2021 End: 12-17-2021 Exposure to SARS-CoV-2 (event) Not sure [facility] Start: 1950 Sex Assigned At Male [facility] Start: 12-17-2021 End: 08-06-2024 History of Social function [facility] Start: 12-17-2021 End: 08-06-2024 Tobacco use panel [facility] Start: 12-05-2022 Non-smoker [facility] Start: 05-04-2024 Sex Male (finding) [facility] Start: 01-08-2012 Sex Male [facility] Goals Date Patient Goal Desired Activity /State Functional Status Date Assessment Result Facility 12-05-2022 Functional status Chair [facility] Work Phone: 11-24-2022 Functional status Patient Activi ty Dangle Feet;Chair [facility] Work Phone: 11-24-2022 Functional status Standby Assist [facility] Work Phone: Mental Status Date Assessment Result Facility 12-05-2022 Cognitive function Voice/Name [facility] Work Phone: 11-24-2022 Cognitive function Voice/Name [facility] Work Phone: 11-22-2022 Cognitive function Level Of Cons ciousness Awake;Alert;Appropriate [facility] Work Phone: 10-13-2021 Cognitive function Voice/Name [facility] Work Phone: 08-04-2021 Cognitive function Level Of Cons ciousness Awake;Alert;Inappropriate [facility] Work Phone: Clinical Notes 05-06-2021 to 09-16-2024 Kang Roach, PT - 09/16/2024 1:46 PM Kang Fxo, PT - 09/16/2024 11:05 AM Cruzito Killian DO - 08/06/2024 3:43 PM Kang Fox PT - 07/30/2024 2:51 PM EDT Note Date & Type Note Facility 09-16-2024 Note HNO ID: [id number] Author: KANG ROACH PT Service: ? Author Type: Physical Therapist Type: Progress Notes Filed: 09/16/2024 13:49 Note Text: Episode Visit Count: 2 Therapist That Will Accept/Oversee The Plan Of Care: Kang Roach Start of Care Date: 07/29/24 Onset Date: 03/31/24 Plan of Care Certification Date: 07/29/24 Next Certification Due Date: 10/29/24 [facility] PHYSICAL THERAPY DISCONTINUANCE OF CARE PLAN OF CARE UPDATE: Assessment: Gustavo Patton is discontinued from Physical Therapy services due to Patient/Clinician mutual decision to discontinue current plan of care.. Patient was seen for 2 visits from Start of Care Date: 07/29/24 to 09/16/2024 and treatment included: Therapeutic exercise. Patient showed improvements in BLE strength and reports walking feels better. He is appropriate to continue therapy exercises on his own. Should he need further skilled care in therapy, he should seek out specific PD trained therapist. Goals updated on 09/16/2024. Goals for Episode of Care: established 07/29/24 Patient will report no falls. Met Improve score on Timed Up and Go Test to 11 seconds to reflect decreased fall risk. Met Improve score on 30 Second Chair Stand to 11 repetitions to reflect decreased fall risk. Improved Improve score on 5 times sit to stand to 12.6 seconds to reflect decrease in fall risk. Improved Improve performance on 4 Stage Balance Test to 10 seconds in SLS to reflect decreased fall risk. Improved [place] in home exercise program including cardiovascular exercise. Met Patient Goals: Get stronger, walk better SUBJECTIVE: Patient is feeling better. He notes that he is able to stand from a chair easier now and feels like he is walking better. Pain: PROMIS Scales 05/04/2023 Higher is Better Phys Func - T Score 76 (within normal limits) Phys Func - Percentile 100 Self-Eff Symptom - T Score 27 (Very Low) Self-Eff Symptom - Percentile 1 T-Score and Percentile Interpretation T-scores: mean of general population = 50. 5 points is clinically meaningfully difference Percentiles provide an indication of how the patient's score ranks in relation to the general population. Higher percentile rankings indicate better function/quality of life. 50th percentile is the average of the general population and indicates half of respondents had a worse score. OBJECTIVE MEASURES WITH LEVEL OF FUNCTION: LE Strength R LE Strength: 4+/5 grossly hips L LE Strength: 4+/5 grossly hips Gait Gait Observation: slow, shuffled, no arm swing, slumped trunk Functional Performance Test Results 30 Second Chair Stand Test: 8 reps 5 Times Sit to Stand Test : 17 sec Timed Up and Go (sec): 10 sec 4 Stage Balance Test Single leg stance - right (sec): 5 sec Single leg stance - left (sec): 4 sec TREATMENT: Therapeutic Exercise: 1: STS 3x10 (cued for fast on the up, slow on the down) 2: *SL hip abduction series 3x10 each variation 3: *Bridging plus marching 3x10/side 4: *Air squats 3x10 5: *Step ups 3x10/side 6: Objective measures obtained Skilled Intervention: Patient was educated in proper exercise technique and purpose for exercises. Skilled judgment was used in selection of appropriate interventions. Provided written instruction for home exercise program to facilitate proper performance and compliance. Correct performance of therapeutic exercises was facilitated with verbal, visual, and tactile cuing. Billing Therapeutic Exercise Treatment Minutes: 26 Skilled Treatment Time Minutes (timed and untimed codes): 26 Total Session Time (minutes): 26 Session Start Time : 1051 Session Stop Time : 1117 Kang Roach PT [facility] 09-16-2024 History of Presen t illness Narrative Episode Visit Count: 2 Therapist That Will Accept/Oversee The Plan Of Care: Kang Roach Start of Care Date: 07/29/24 Onset Date: 03/31/24 Plan of Care Certification Date: 07/29/24 Next Certification Due Date: 10/29/24 REHABILITATION AND SPORTS THERAPY PHYSICAL THERAPY DISCONTINUANCE OF CARE PLAN OF CARE UPDATE: Assessment: Gustavo Patton is discontinued from Physical Therapy services due to Patient/Clinician mutual decision to discontinue current plan of care.. Patient was seen for 2 visits from Start of Care Date: 07/29/24 to 09/16/2024 and treatment included: Therapeutic exercise. Patient showed improvements in BLE strength and reports walking feels better. He is appropriate to continue therapy exercises on his own. Should he need further skilled care in therapy, he should seek out specific PD trained therapist. Goals updated on 09/16/2024. Goals for Episode of Care: established 07/29/24 Patient will report no falls. Met Improve score on Timed Up and Go Test to 11 seconds to reflect decreased fall risk. Met Improve score on 30 Second Chair Stand to 11 repetitions to reflect decreased fall risk. Improved Improve score on 5 times sit to stand to 12.6 seconds to reflect decrease in fall risk. Improved Improve performance on 4 Stage Balance Test to 10 seconds in SLS to reflect decreased fall risk. Improved Vernon in home exercise program including cardiovascular exercise. Met Patient Goals: Get stronger, walk better SUBJECTIVE: Patient is feeling better. He notes that he is able to stand from a chair easier now and feels like he is walking better. Pain: PROMIS Scales 05/04/2023 Higher is Better Phys Func - T Score 76 (within normal limits) Phys Func - Percentile 100 Self-Eff Symptom - T Score 27 (Very Low) Self-Eff Symptom - Percentile 1 T-Score and Percentile Interpretation T-scores: mean of general population = 50. 5 points is clinically meaningfully difference Percentiles provide an indication of how the patient's score ranks in relation to the general population. Higher percentile rankings indicate better function/quality of life. 50th percentile is the average of the general population and indicates half of respondents had a worse score. OBJECTIVE MEASURES WITH LEVEL OF FUNCTION: LE Strength R LE Strength: 4+/5 grossly hips L LE Strength: 4+/5 grossly hips Gait Gait Observation: slow, shuffled, no arm swing, slumped trunk Functional Performance Test Results 30 Second Chair Stand Test: 8 reps 5 Times Sit to Stand Test : 17 sec Timed Up and Go (sec): 10 sec 4 Stage Balance Test Single leg stance - right (sec): 5 sec Single leg stance - left (sec): 4 sec TREATMENT: Therapeutic Exercise: 1: STS 3x10 (cued for fast on the up, slow on the down) 2: *SL hip abduction series 3x10 each variation 3: *Bridging plus marching 3x10/side 4: *Air squats 3x10 5: *Step ups 3x10/side 6: Objective measures obtained Skilled Intervention: Patient was educated in proper exercise technique and purpose for exercises. Skilled judgment was used in selection of appropriate interventions. Provided written instruction for home exercise program to facilitate proper performance and compliance. Correct performance of therapeutic exercises was facilitated with verbal, visual, and tactile cuing. Billing Therapeutic Exercise Treatment Minutes: 26 Skilled Treatment Time Minutes (timed and untimed codes): 26 Total Session Time (minutes): 26 Session Start Time : 1051 Session Stop Time : 1117 Kang Roach PT Program_ID:[id number] Access Code: [email or web address] URL: [email or web address] Date: 09-16-2024 Prepared By: Kang Roach Program Notes Exercises - Sit to Stand with Arms Crossed - 1 x daily - 7 x weekly - 3 sets - 10 reps - Sidelying Hip Abduction - 1 x daily - 7 x weekly - 3 sets - 10 reps - Sidelying Bent Knee Hip Flexion - 1 x daily - 7 x weekly - 3 sets - 10 reps - Sidelying Hip Circles - 1 x daily - 7 x weekly - 3 sets - 10 reps - Marching Bridge - 1 x daily - 7 x weekly - 3 sets - 10 reps - Squat - 1 x daily - 7 x weekly - 3 sets - 10 reps - Step Up - 1 x daily - 7 x weekly - 3 sets - 10 reps documented in this encounter [facility] 08-06-2024 Note HNO ID: [id number] Author: CRUZITO HART, DO Service: ? Author Type: Physician Type: Progress Notes Filed: 08/06/2024 16:26 Note Text: Hematologic problem(s): 1) H/O RLE DVT. 2) IVC filter 2021. 3) Multiple strokes in differing vascular territories. 4) Elevated factor VIII:C; normal CRP. HPI: The patient is a 73-year-old male with a past medical history as outlined below. 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 He has underlying history of hypertension, diabetes mellitus, and diastolic heart failure. 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 He was diagnosed with left MCA infarct with petechial hemorrhage, transferred to [facility]. He also had left M1 occlusion. He underwent mechanical thrombectomy of his left MCA infarct by Dr. Mohamud. He also had an echocardiogram, which revealed ejection fraction of 45%. His hospital course was complicated by chronic diastolic heart failure as well as right popliteal deep vein thrombosis. With his recent thrombectomy, he is only anticoagulated for least 6 to 8 weeks. He does have an inferior vena cava filter placed. 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 Functionally, heis requiring minimal assistance for his bed mobility and transfers, ambulates 40 feet with a wheeled walker, minimal assistance. He was now admitted to [facility] for poststroke inpatient rehabilitation therapies. IVC filter placed 04/20/2021. No procedure note indicating it was removed. 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 Left leg negative for acute DVT. Per Dr. Manley's most recent note, Patient with recurrent strokes over the past couple years, of which etiology is uncertain. He ahs multiple stroke risk factors including HTN, DM, HLD - uncertain to what extent these risk factors are controlled. However, concerning that strokes have occurred in various vascular distributions and thus, possible central embolic source. Limited follow up with me (as above) and patient is limited historian as well, making it difficult to determine cause of symptoms. Non focal neuro exam at present. I reviewed prior records as best could be given limited records available for review. Repeat ECHOs have not shown cardiac source. HOWEVER, still need to consider possible paroxysmal afib, and thus will repeat Zio monitor. Will also get new imaging of both intra and extracranial large vessels to evaluate for stenosis or LVO with pt not having such imagining during last admit (per documentation that I reviewed. Also given multiple strokes as well as DVT, patient may benefit from heme evaluation for clotting disorder. Will place consult. Was going to draw labs today but pt declined. Carotid arterial duplex ultrasound 04/2022 showed mild less than 50% stenosis of both the right and left extracranial internal carotid arteries. Patent and antegrade flow was observed in the vertebral arteries bilaterally. He was admitted again to [facility] 11/22/2022 for complaint of slurred speech and weakness. Noncontrast CT brain revealed prior infarcts in the left frontotemporal area and also the right occipital area. No acute findings. He was placed on aspirin, Plavix and beta-erika and statin drug was continued. Teleneurology recommended dual antiplatelet therapy for 3 weeks then discontinue aspirin. CTA and MRI were advised. MRI showed right frontal and right temporal acute ischemic infarcts. CTA was not done but an echocardiogram that showed an EF of 65% with no wall motion abnormalities and bubble study negative. Both atria were of normal size. He was transferred to inpatient rehab on 11/24/2022. Most recent MRI brain from [facility] 11/22/2022 demonstrated acute infarct in the right parietal lobe and old left frontal temporal infarct. CT brain with and without contrast 01/05/2023 demonstrated encephalomalacia in the left temporoparietal and frontal lobes as well as right occipital lobe. Coagulation times were normal 11/22/2022. CBC from 07/27/2023 showed a white count of 8300. Hemoglobin 13.2 g/dL and a platelet count 321,000. MCV was 94.7. Per initial office consultation here: Denies palpitations and sensations of tachycardia. Denies dizziness and orthostasis. Has history of developmental delay since childhood. Lives in one-story house in [place]. Has steps to the basement. Has a friend close by who helps out. Not driving. Interim history: No complaints today. Neurologically stable. Has trip to [place] planned. No unusual bleeding or unexplained bruisin (more content not included)... [facility] 08-06-2024 History of Presen t illness Narrative Hematologic problem(s): 1) H/O RLE DVT. 2) IVC filter 2021. 3) Multiple strokes in differing vascular territories. 4) Elevated factor VIII:C; normal CRP. HPI: The patient is a 73-year-old male with a past medical history as outlined below. 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 He has underlying history of hypertension, diabetes mellitus, and diastolic heart failure. 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 He was diagnosed with left MCA infarct with petechial hemorrhage, transferred to [facility]. He also had left M1 occlusion. He underwent mechanical thrombectomy of his left MCA infarct by Dr. Mohamud. He also had an echocardiogram, which revealed ejection fraction of 45%. His hospital course was complicated by chronic diastolic heart failure as well as right popliteal deep vein thrombosis. With his recent thrombectomy, he is only anticoagulated for least 6 to 8 weeks. He does have an inferior vena cava filter placed. 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 Functionally, heis requiring minimal assistance for his bed mobility and transfers, ambulates 40 feet with a wheeled walker, minimal assistance. He was now admitted to [facility] for poststroke inpatient rehabilitation therapies. IVC filter placed 04/20/2021. No procedure note indicating it was removed. 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 Left leg negative for acute DVT. Per Dr. Manley's most recent note, Patient with recurrent strokes over the past couple years, of which etiology is uncertain. He ahs multiple stroke risk factors including HTN, DM, HLD - uncertain to what extent these risk factors are controlled. However, concerning that strokes have occurred in various vascular distributions and thus, possible central embolic source. Limited follow up with me (as above) and patient is limited historian as well, making it difficult to determine cause of symptoms. Non focal neuro exam at present. I reviewed prior records as best could be given limited records available for review. Repeat ECHOs have not shown cardiac source. HOWEVER, still need to consider possible paroxysmal afib, and thus will repeat Zio monitor. Will also get new imaging of both intra and extracranial large vessels to evaluate for stenosis or LVO with pt not having such imagining during last admit (per documentation that I reviewed. Also given multiple strokes as well as DVT, patient may benefit from heme evaluation for clotting disorder. Will place consult. Was going to draw labs today but pt declined. Carotid arterial duplex ultrasound 04/2022 showed mild less than 50% stenosis of both the right and left extracranial internal carotid arteries. Patent and antegrade flow was observed in the vertebral arteries bilaterally. He was admitted again to [facility] 11/22/2022 for complaint of slurred speech and weakness. Noncontrast CT brain revealed prior infarcts in the left frontotemporal area and also the right occipital area. No acute findings. He was placed on aspirin, Plavix and beta-erika and statin drug was continued. Teleneurology recommended dual antiplatelet therapy for 3 weeks then discontinue aspirin. CTA and MRI were advised. MRI showed right frontal and right temporal acute ischemic infarcts. CTA was not done but an echocardiogram that showed an EF of 65% with no wall motion abnormalities and bubble study negative. Both atria were of normal size. He was transferred to inpatient rehab on 11/24/2022. Most recent MRI brain from [facility] 11/22/2022 demonstrated acute infarct in the right parietal lobe and old left frontal temporal infarct. CT brain with and without contrast 01/05/2023 demonstrated encephalomalacia in the left temporoparietal and frontal lobes as well as right occipital lobe. Coagulation times were normal 11/22/2022. CBC from 07/27/2023 showed a white count of 8300. Hemoglobin 13.2 g/dL and a platelet count 321,000. MCV was 94.7. Per initial office consultation here: Denies palpitations and sensations of tachycardia. Denies dizziness and orthostasis. Has history of developmental delay since childhood. Lives in one-story house in [place]. Has steps to the basement. Has a friend close by who helps out. Not driving. Interim history: No complaints today. Neurologically stable. Has trip to [place] planned. No unusual bleeding or unexplained bruising. PAST MEDICAL HISTORY Diagnosis Date Diabetes mellitus (HCC) Diastolic heart failure (HCC) DVT of lower extremity (deep venous thrombosis) (HCC) Dysphagia HTN (hypertension) Primary cardiomyopathy (HCC) Primary cardiomyopathy (HCC) Shortness of breath Stroke (cerebrum) ([facility]) PAST SURGICAL HISTORY Procedure Laterality Date IVC FILTER PLACEMENT 03/2021 PAST SURGICAL HISTORY OF 03/2021 Cerebral angiography and left MCA thrombectomy ALLERGIES No Known Allergies Current Outpatient Medications Medication Sig Aspirin 81 mg tab Take 81 mg by mouth once daily. carbidopa-levodopa (SINEMET 25-100) 25-100 mg per tablet TAKE 2 TABLETs BY MOUTH THREE TIMES DAILY (AT 8AM, Noon AND 5PM) ELIQUIS 5 mg tab(s) TAKE 1 TABLET BY MOUTH TWICE A DAY multivitamin tablet Take 1 tablet by mouth once daily. Ipratropium [place] (ATROVENT) 21 mcg (0.03 %) nasal spray Use 1 [place] in the nose three times a day as needed. SENNA-DOCUSATE SODIUM ORAL Take one tablet by mouth every other day as needed. loratadine (CLARITIN) 10 mg tablet Take 10 mg by mouth once daily. pantoprazole DR (PROTONIX) 20 mg tablet Take 1 tablet by mouth once daily. metoprolol succinate ER (TOPROL XL) 25 mg 24 hr tablet TAKE 1 TABLET BY MOUTH EVERY DAY atorvastatin (LIPITOR) 40 mg tablet 1 TABLET BY ORAL/FEEDING TUBE ROUTE DAILY AT BEDTIME. lisinopril 2.5 mg tablet Take 1 tablet by mouth once daily. metFORMIN (GLUCOPHAGE) 500 mg tablet Take 500 mg by mouth once daily. No current facility-administered medications for this visit. Social History Tobacco Use Smoking status: Never Smokeless tobacco: Never Vaping Use Vaping status: Never Used Substance Use Topics Alcohol use: Never Drug use: Never Family History Problem Relation Age of Onset Diabetes Father Three sisters--unknown if family h/o VTE. ROS: Constitutional: No fever. No drenching night sweats. Normal appetite. No unexplained weight loss. No significant fatigue. HEENT: No recent change in voice, vision or hearing. Resp: No cough, wheeze of hemoptysis. No shortness of breath at rest. No HAWK. CVS: GI: No dysgeusia. No symptoms of stomatitis. No dysphagia or odynophagia. No reflux, n/v, change in bowel habits. No abdominal pain, bloating or distension. No black or bloody stools. : No dysuria or gross hematuria. No symptoms of bladder outlet obstruction. Endo: No hot flashes. No polyuria or polydipsia. No heat or cold intolerance. Musculoskeletal: No bone, back, joint and muscular pain. Derm: No current rash. No history of jaundice. No diffuse pruritis. Heme: No unusual bleeding and unexplained bruising. Psych: Normal mood. PHYSICAL EXAM: Vitals: Blood pressure 112/74, pulse 83, temperature 36.4 C (97.6 F), temperature source Temporal, weight 83 kg (183 lb), SpO2 96%. Well-appearing and in no acute distress. EYES: Sclerae are anicteric bilaterally. LYMPHATIC: There is no palpable cervical, supraclavicular, axillary adenopathy. RESPIRATORY: Inspiratory breath sounds are of normal intensity in all marrero. No rales, wheezes or rhonchi. Expiratory phase is normal. CARDIOVASCULAR: Rhythm is regular. No murmur. ABDOMEN: The abdomen is nondistended. No splenomegaly or hepatomegaly. No tenderness. Extremities: No swelling or edema. SKIN: No jaundice or rash. No petechiae. NEUROLOGIC: rewrite editor II-XII are grossly intact. ASSESSMENT/PLAN: (I63.9) Recurrent strokes (HCC) (primary encounter diagnosis) (I82.511) Chronic deep vein thrombosis (DVT) of femoral vein of right lower extremity (HCC) (Z95.828) Presence of IVC filter Assessment: -73 yo male with h/o multiple strokes. At least one occurred after IVC filter placed in 2021. No repeat duplex ultrasound of the legs when inpatient in the fall 2022 -Was not previously on anticoagulation when had original right lower extremity DVT secondary to need for fibrinolytic therapy. -Elevated factor VIII:C with normal CRP. -Multiple strokes in differing vascular territories -Has been neurologically stable on apixaban and ASA. - Again discussed with him that factor VIII:C can be a risk factor for both venous and arterial thromboembolism. Discussed rationale for remaining on anticoagulation for the time being. Plan: - Continue apixaban 5 mg BID. - Continue ASA 81 mg. - Recheck factor VIII:C as well as CRP today. - Follow-up in 1 year Portions of this documentation were copied and pasted from my previous office visit note dated 09/25/2023 in order to provide a cohesive continuity of the history. The note has been reviewed and edited and updated as necessary. I spent a total of 30 minutes on the date of the service which included preparing to see the patient, [id number] patient care, completing clinical documentation, obtaining and/or reviewing separately obtained history, performing a medically appropriate examination, counseling and educating the patient/family/caregiver, ordering medications, tests, or procedures, communicating with other HCPs (not separately reported), and communicating results to the patient/family/caregiver. Cruzito Hart DO documented in this encounter [facility] 07-30-2024 Note HNO ID: [id number] Author: KANG ROACH PT Service: ? Author Type: Physical Therapist Type: Progress Notes Filed: 07/30/2024 14:55 Note Text: Episode Visit Count: 1 Therapist That Will Accept/Oversee The Plan Of Care: Kang Roach Start of Care Date: 07/29/24 Onset Date: 03/31/24 Plan of Care Certification Date: 07/29/24 Next Certification Due Date: 10/29/24 Patient Identified by Name and Date of : Yes REHABILITATION AND SPORTS THERAPY PHYSICAL THERAPY EVALUATION PLAN OF CARE: Assessment: Gustavo Patton presents with chief complaint of altered gait and balance issues that interferes with rising from a chair, standing, walking, heavy exertion, lifting, physical activities . The patient presents with impairments in ADL's, balance, gait, independence in exercise, overall function, strength, and symptom management. PROMIS? (Patient-Reported Outcomes Measurement Information System) scores were reviewed and identified as a rehabilitation concern. Prognosis for therapy is Fair due to: clinical presentation, advanced age, chronic nature of impairments, limited tolerance to activity, limited support system . The patient will benefit from skilled therapy services to meet the goals established for this plan of care as noted below. Assessment Fall Risk : Active at risk Classification Diagnosis Grouping: Parkinson?s Disease Goals for Episode of Care: established 07/29/24 Patient will report no falls. Improve score on Timed Up and Go Test to 11 seconds to reflect decreased fall risk. Improve score on 30 Second Chair Stand to 11 repetitions to reflect decreased fall risk. Improve score on 5 times sit to stand to 12.6 seconds to reflect decrease in fall risk. Improve performance on 4 Stage Balance Test to 10 seconds in SLS to reflect decreased fall risk. Vernon in home exercise program including cardiovascular exercise. Patient Goals: Get stronger, walk better Time Frame for Goals and Treatment : 09/29/24 Planned Interventions, Frequency, and Duration: Current Frequency: 1x/week Duration: 8 weeks Total Number of Visits Planned: 8 Planned Treatment Interventions: Therapeutic exercise (18567), Neuromuscular re-education (31197), Manual therapy (98138), Therapeutic activities (33589), Self-half-way management (08918), Patient/Family/Caregiver Education, Body Mechanics Training PLAN FOR NEXT VISIT: Assess compliance to HEP while on vacation Patient demonstrates good understanding of plan of care and treatment. The above goals and plan of care were discussed and agreed upon by patient/family. SUBJECTIVE: Patient comes in for shuffled gait and balance exam today with suspision of PD or parkinsonism. Notes ~4 months ago he noticed this and it is not getting any better. Patient notes he does arm exercises and uses a 10# bar on his knee to march with resistance. No formal walking program. Walking is shuffled but no fear of falling or history of falls. Notes that he also gets blurred vision when turning his head. When he was walking one day and was turning to look to either side he felt like he could pass out 2-3 weeks ago. Patient will be on vacation from August 16-Sep 12, so he will be unable to come back to PT until after that Patient Goals: Get stronger, walk better Functional Limitations: rising from a chair, standing, walking, heavy exertion, lifting, physical activities Prior Level of Function: Independent with restrictions Intake Information: Prescription present Falls Interview: No positive findings with falls interview Falls History # of falls in past year: 0 # of falls resulting in an injury in past year: 0 Pain: Pain Pain Level: 0 PROMIS Scales 05/04/2023 Higher is Better Phys Func - T Score 76 (within normal limits) Phys Func - Percentile 100 Self-Eff Symptom - T Score 27 (Very Low) Self-Eff Symptom - Percentile 1 T-scores: mean of general population = 50. 5 points is clinically meaningfully difference Percentiles provide an indication of how the patient's score ranks in relation to the general population. Higher percentile rankings indicate better function/quality of life. 50th percentile is the average of the general population and indicates half of respondents had a worse score. OBJECTIVE MEASURES WITH LEVEL OF FUNCTION: LE Strength R LE Strength: 4/5 grossly hips L LE Strength: 4/5 grossly hips Gait Gait Observation: slow, shuffled, no arm swing, slumped trunk Functional Performance Test Results 30 Second Chair Stand Test: 7 reps 5 Times Sit to Stand Test : 21 sec Timed Up and Go (sec): 13 sec 4 Stage Balance Test Narrow base of support (sec): 10 sec Semi-tandem base of support (sec): 10 sec Tandem base of support (sec): 10 sec Single leg stance - right (sec): 3 sec Single leg stance - left (sec): 0 sec Education: Education Learning Preferences: Demonstration, Explanation, Printed Materials [place] (more content not included)... [facility] 07-30-2024 History of Presen t illness Narrative Episode Visit Count: 1 Therapist That Will Accept/Oversee The Plan Of Care: Kang Roach Start of Care Date: 07/29/24 Onset Date: 03/31/24 Plan of Care Certification Date: 07/29/24 Next Certification Due Date: 10/29/24 Patient Identified by Name and Date of : Yes REHABILITATION AND SPORTS THERAPY PHYSICAL THERAPY EVALUATION PLAN OF CARE: Assessment: Gustavo Patton presents with chief complaint of altered gait and balance issues that interferes with rising from a chair, standing, walking, heavy exertion, lifting, physical activities . The patient presents with impairments in ADL's, balance, gait, independence in exercise, overall function, strength, and symptom management. PROMIS (Patient-Reported Outcomes Measurement Information System) scores were reviewed and identified as a rehabilitation concern. Prognosis for therapy is Fair due to: clinical presentation, advanced age, chronic nature of impairments, limited tolerance to activity, limited support system . The patient will benefit from skilled therapy services to meet the goals established for this plan of care as noted below. Assessment Fall Risk : Active at risk Classification Diagnosis Grouping: Parkinson s Disease Goals for Episode of Care: established 07/29/24 Patient will report no falls. Improve score on Timed Up and Go Test to 11 seconds to reflect decreased fall risk. Improve score on 30 Second Chair Stand to 11 repetitions to reflect decreased fall risk. Improve score on 5 times sit to stand to 12.6 seconds to reflect decrease in fall risk. Improve performance on 4 Stage Balance Test to 10 seconds in SLS to reflect decreased fall risk. [place] in home exercise program including cardiovascular exercise. Patient Goals: Get stronger, walk better Time Frame for Goals and Treatment : 09/29/24 Planned Interventions, Frequency, and Duration: Current Frequency: 1x/week Duration: 8 weeks Total Number of Visits Planned: 8 Planned Treatment Interventions: Therapeutic exercise (01048), Neuromuscular re-education (07289), Manual therapy (23900), Therapeutic activities (23066), Self-half-way management (10214), Patient/Family/Caregiver Education, Body Mechanics Training PLAN FOR NEXT VISIT: Assess compliance to HEP while on vacation Patient demonstrates good understanding of plan of care and treatment. The above goals and plan of care were discussed and agreed upon by patient/family. SUBJECTIVE: Patient comes in for shuffled gait and balance exam today with suspision of PD or parkinsonism. Notes ~4 months ago he noticed this and it is not getting any better. Patient notes he does arm exercises and uses a 10# bar on his knee to april with resistance. No formal walking program. Walking is shuffled but no fear of falling or history of falls. Notes that he also gets blurred vision when turning his head. When he was walking one day and was turning to look to either side he felt like he could pass out 2-3 weeks ago. Patient will be on vacation from August 16-Sep 12, so he will be unable to come back to PT until after that Patient Goals: Get stronger, walk better Functional Limitations: rising from a chair, standing, walking, heavy exertion, lifting, physical activities Prior Level of Function: Independent with restrictions Intake Information: Prescription present Falls Interview: No positive findings with falls interview Falls History # of falls in past year: 0 # of falls resulting in an injury in past year: 0 Pain: Pain Pain Level: 0 PROMIS Scales 05/04/2023 Higher is Better Phys Func - T Score 76 (within normal limits) Phys Func - Percentile 100 Self-Eff Symptom - T Score 27 (Very Low) Self-Eff Symptom - Percentile 1 T-scores: mean of general population = 50. 5 points is clinically meaningfully difference Percentiles provide an indication of how the patient's score ranks in relation to the general population. Higher percentile rankings indicate better function/quality of life. 50th percentile is the average of the general population and indicates half of respondents had a worse score. OBJECTIVE MEASURES WITH LEVEL OF FUNCTION: LE Strength R LE Strength: 4/5 grossly hips L LE Strength: 4/5 grossly hips Gait Gait Observation: slow, shuffled, no arm swing, slumped trunk Functional Performance Test Results 30 Second Chair Stand Test: 7 reps 5 Times Sit to Stand Test : 21 sec Timed Up and Go (sec): 13 sec 4 Stage Balance Test Narrow base of support (sec): 10 sec Semi-tandem base of support (sec): 10 sec Tandem base of support (sec): 10 sec Single leg stance - right (sec): 3 sec Single leg stance - left (sec): 0 sec Education: Education Learning Preferences: Demonstration, Explanation, Printed Materials Barriers: None Learning/educational needs: Home exercise program, Plan of Care, Changes in Plan of Care, Posture, Body Mechanics Education Provided: Yes, see treatment interventions for education provided Education Provided To: Patient Education Mode/Type: Demonstration, Explanation/Discussion, Literature/Printed Materials Response to Education/Teach Back: States/Identifies TREATMENT: PT Treatment Interventions: Therapeutic Exercise Evaluation Therapeutic Exercise: 1: *STS 3x10 2: *SL hip abduction 3x10/side 3: *SLR 3x10 4: *Bridging 3x10 Skilled Intervention: Patient was educated in proper exercise technique and purpose for exercises. Skilled judgment was used in selection of appropriate interventions. Provided written instruction for home exercise program to facilitate proper performance and compliance. Correct performance of therapeutic exercises was facilitated with verbal, visual, and tactile cuing. Billing * Evaluation Moderate Complexity: 1 Unit Therapeutic Exercise Treatment Minutes: 14 Skilled Treatment Time Minutes (timed and untimed codes): 43 Total Session Time (minutes): 43 Session Start Time : 1400 Session Stop Time : 1443 Kang Roach PT Program_ID:[id number] Access Code: [email or web address] URL: [email or web address] Date: 07-29-2024 Prepared By: Kang Roach Program Notes Exercises - Sidelying Hip Abduction - 1 x daily - 7 x weekly - 3 sets - 10 reps - Sit to Stand with Arms Crossed - 1 x daily - 7 x weekly - 3 sets - 10 reps - Active Straight Leg Raise with Quad Set - 1 x daily - 7 x weekly - 3 sets - 10 reps - Supine Bridge - 1 x daily - 7 x weekly - 3 sets - 10 reps documented in this encounter [facility] 07-12-2024 Note HNO ID: [id number] Author: JESSIKA PRATT OCCA Service: ? Author Type: Costume Seamstress Type: Progress Notes Filed: 07/12/2024 14:31 Note Text: Office visit note from today's visit faxed to primary care, Dr. Fraser, as requested. TIFFANY Noland [facility] 07-12-2024 History of Presen t illness Narrative Office visit note from today's visit faxed to primary care, Dr. Fraser, as requested. TIFFANY Noland ESTABLISHED PATIENT VISIT CHIEF COMPLAINT: Follow Up HISTORY OF PRESENT ILLNESS: Gustavo Patton is a 73 year old male, with a PMH significant for and per last office visit note with me on 10/20/23: 1. Recurrent strokes (HCC) - ICD9: 434.91, ICD10: I63.9 (primary diagnosis) 2. History of DVT (deep vein thrombosis) - ICD9: V12.51, ICD10: Z86.718 3. 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 Again, now on Eliquis and ASA 81mg per recs of Dr. Hart. Afib never determined on cardiac workup, but remains of concern. Given abnormal rhythms noted on Zio monitor, would like pt to follow up with his medical engineer Dr. Dill to determine if further workup necessary. Also question if pt would benefit from loop recorded but defer to cards. Otherwise no change in meds at this time. Dr. Hart following, and patient can follow up with Dr. Fraser for annual lipid panels (on statin but may need adjusted in future based on labs). BP goal <140/90. Glucose goal <140. 4. Parkinsonism, unspecified Parkinsonism type (HCC) - ICD9: 332.0, ICD10: G20.C Patient with change in gait since time of last visit that pt and caregiver who accompanies report as a progressive and not acute change. No spine symptoms such as pain. No b/b incontinence. Gait changes suggestive of parkinsonism. Concern for primary or PD with patient not having such symptoms after last stroke to suggest vascular cause. D/w pt and care director rn dx of PD, physiology, testing, treatment and prognosis. Hesitant to start on new meds given just recently placed on Eliquis yet, also concern for fall secondary to gait change which could result in hemorrhage. Again, no falls reported by patient. In the end, with pt approval, decision made to trial Sinemet 25/100mg TID with meals or 9AM/1PM/5PM. SE and ADRs d/w pt. Encouraged exercise and will consider PT depending on response to Sinemet. Will have pt back for reevaluation in 8 weeks or sooner prn. Did see Jackeline MCCLAIN during interim on 12/06/23. Per note: 1. Parkinsonism, unspecified Parkinsonism type (HCC) - ICD9: 332.0, ICD10: G20.C (primary diagnosis) Patient started on Sinemet 25 over 100 mg 1 tablet 3 times daily due to concerns of parkinsonism. Patient presents with his wood panel inspector for follow-up after starting this medication, notes significant improvement in getting up from a seated position and this is appreciable on exam today. Does have some mild improvement in his gait overall, but still shuffling, again appreciated on exam but noted improved posture while ambulating as well as turning with 3-4 steps instead of 5. No side effects with the Sinemet, would like to continue this therapy. Discussed increasing dosage to 1.5 tablets 3 times a day and patient and wood panel inspector amenable, discussed increased risk of side effects with increasing this medication and they agree and understand. Discussed importance of physical activity, discussed physical therapy and patient amenable to this. Would like to continue at [facility] as he is called her in the past and will fax order for physical therapy over today. No falls since last appointment, discussed fall prevention with patient and wood panel inspector. 2. Recurrent strokes (HCC) - ICD9: 434.91, ICD10: I63.9 3. History of DVT (deep vein thrombosis) - ICD9: V12.51, ICD10: Z86.718 4. 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 Cerebral infarction, unspecified mechanism (HCC) - ICD9: 434.91, ICD10: I63.9 6. Cerebrovascular accident (CVA), unspecified mechanism (HCC) - ICD9: 434.91, ICD10: I63.9 7. Left arm weakness - ICD9: 729.89, ICD10: R29.898 Patient with no new neurologic symptoms. Compliant with his Eliquis and following with hematology for chronic DVT. Managing risk factors with primary care including blood pressure, cholesterol and blood sugar. No new symptoms that would warrant additional workup at this time. 8. Pain in finger of left hand - ICD9: 729.5, ICD10: M79.645 9. Cervicalgia - ICD9: 723.1, ICD10: M54.2 Patient with new onset pain in the left fifth digit, described as a stinging pain that is present all the time. No etiology for onset that he can think of. Does have decree sensation to temperature in both fifth digits on either side. Denies any out right neck pain, but discussed possible physical therapy intervention and patient is amenable to this as opposed to trying EMG. Should symptoms persist, did discuss this could be an option and patient amenable. No weakness in the hand, no other neurologic deficits including paresthesias, unilateral weakness, vision symptoms, slurred speech, etc. Note presents without POA - not available by phone. Patient with list of questions. Going on a trip overseas and wants to know if OK. States when sleeps on side a noise comes out his mouth. Does not snore. Does not keep a regular sleep-wake schedule due to being retired. Denies feeling sleepy. ESS performed in office and 05/30. When does sleep finds it restorative. No dry mouth. Asking about coughing in a room in front of people - present for about 5 months - near daily. Non productive cough. Also asking about chronic rhinitis and sinus discharge (not bleeding and no discoloration). Finally asks about having his ears cleaned out today. Most of the above questions I explained need to be addressed by PCP. Pain in hands resolved. No neck pain today. When discussing possible PD symptoms. States when stands up, legs feel weak. Feels like legs shaky. No tremors. No falls. No difficulties rising from chair. Does feel like overall walking better. States that he is not missing any of his doses. No new focal deficits including no weakness, vision changes, speech changes, vertigo, numbness/tingling, loc. REVIEW OF SYSTEMS GENERAL:No weight loss, malaise or fevers. HEENT:Negative for frequent or significant headaches, No changes in hearing or vision, no nose bleeds or other nasal problems NECK:See HPI. RESPIRATORY: See HPI. CARDIOVASCULAR: Negative for chest pain, leg swelling or palpitations. GASTROINTESTINAL: Negative for abdominal discomfort, blood in stools or black stools or change in bowel habits GENITOURINARY: No history of dysuria, frequency or incontinence MUSCULOSKELETAL: See HPI. NEUROLOGIC:See HPI. SKIN:Negative for lesions, rash, and itching. HEMATOLOGIC/LYMPHATIC/IMMUNOLOGI C:Negative for prolonged bleeding, bruising easily or swollen nodes. ENDOCRINE: Negative for cold or heat intolerance, polyuria, polydipsia and goiter. The remainder of the ROS was reviewed and is negative. LAB/IMAGING: Those performed since patient's last visit have been reviewed. WBC (k/uL) Date Value 04/15/2021 8.65 RBC (m/uL) Date Value 04/15/2021 4.87 Hemoglobin (g/dL) Date Value 04/15/2021 14.7 Hematocrit (%) Date Value 04/15/2021 43.8 MCV (fL) Date Value 04/15/2021 89.9 MCH (pg) Date Value 04/15/2021 30.2 MCHC (g/dL) Date Value 04/15/2021 33.6 RDW-CV (%) Date Value 04/15/2021 12.3 Platelet Count (k/uL) Date Value 04/15/2021 301 MPV (fL) Date Value 04/15/2021 12.2 Glucose (mg/dL) Date Value 04/15/2021 117 (H) BUN (mg/dL) Date Value 04/15/2021 25 (H) Creatinine (mg/dL) Date Value 04/15/2021 1.07 Sodium (mmol/L) Date Value 04/15/2021 137 Potassium (mmol/L) Date Value 04/15/2021 4.5 Chloride (mmol/L) Date Value 04/15/2021 100 CO2 (mmol/L) Date Value 04/15/2021 26 Protein, Total (g/dL) Date Value 04/15/2021 7.3 Albumin (g/dL) Date Value 04/15/2021 4.0 Calcium, Total (mg/dL) Date Value 04/15/2021 9.6 Alkaline Phosphatase (U/L) Date Value 04/15/2021 96 Bilirubin, Total (mg/dL) Date Value 04/15/2021 0.5 AST (U/L) Date Value 04/15/2021 22 ALT (U/L) Date Value 04/15/2021 21 MEDICATIONS: carbidopa-levodopa (SINEMET 25-100) 25-100 mg per tablet TAKE 1.5 TABLETs BY MOUTH THREE TIMES DAILY (AT 9AM, 1PM AND 5PM) ELIQUIS 5 mg tab(s) TAKE 1 TABLET BY MOUTH TWICE A DAY multivitamin tablet Take 1 tablet by mouth once daily. Ipratropium [place] (ATROVENT) 21 mcg (0.03 %) nasal spray Use 1 [place] in the nose three times a day as needed. SENNA-DOCUSATE SODIUM ORAL Take one tablet by mouth every other day as needed. loratadine (CLARITIN) 10 mg tablet Take 10 mg by mouth once daily. pantoprazole DR (PROTONIX) 20 mg tablet Take 1 tablet by mouth once daily. metoprolol succinate ER (TOPROL XL) 25 mg 24 hr tablet TAKE 1 TABLET BY MOUTH EVERY DAY atorvastatin (LIPITOR) 40 mg tablet 1 TABLET BY ORAL/FEEDING TUBE ROUTE DAILY AT BEDTIME. (Patient taking differently: Take 40 mg by mouth daily at bedtime.) lisinopril 2.5 mg tablet Take 1 tablet by mouth once daily. metFORMIN (GLUCOPHAGE) 500 mg tablet Take 500 mg by mouth once daily. HISTORIES PAST MEDICAL HISTORY Diagnosis Date Diabetes mellitus (HCC) Diastolic heart failure (HCC) DVT of lower extremity (deep venous thrombosis) (HCC) Dysphagia HTN (hypertension) Primary cardiomyopathy (HCC) Primary cardiomyopathy (HCC) Shortness of breath Stroke (cerebrum) (HCC) FAMILY HISTORY Problem Relation Age of Onset Diabetes Father SOCIAL HISTORY Social History Tobacco Use Smoking status: Never Smokeless tobacco: Never Vaping Use Vaping status: Never Used Substance Use Topics Alcohol use: Never Drug use: Never PHYSICAL EXAMINATION GENERAL EXAM: General appearance: NAD, pleasant. HEENT: NC/AT, nasal congestion absent, no oral lesions, membranes moist. NECK: ROM nml. Lungs: CTA bilaterally. CV: RRR nl S1, S2. Extr: No cyanosis, clubbing or edema. Skin: Cool to touch. NEUROLOGICAL EXAM: General: Awake, alert, oriented x3 (person,place,time), speech and language at baseline; comprehension, naming, repetition intact. Short and ad terminal makeup operator memory intact. Fund of knowledge grossly normal by MOCA. CN: PERRL, fundi with no evidence of papilledema, EOMI and without nystagmus, VFF to confrontation, facial sensation and strength are normal and symmetric, hearing is intact, palate and tongue movements are intact and symmetric. SCM and trapezius strength normal. Motor: Normal bulk and strength (5/5) bilaterally (throughout extremities x4). Tone increased in RUE - cogwheel nature. Coordination: FNF, HTS intact. ALEKSANDR possibly slower in R hand. No tremors. Sensation: Light touch, vibration, temperature intact throughout. No evidence of neglect. Gait: Unable to rise from chair with arms crossed over chest. Shuffling gait. Mild stooped posture. Takes about 5 steps to turn 180 degrees. Decreased arm swing krunal. +Retropulsion on pull test. Assessment and Plan: ASSESSMENT/PLAN: 1. Parkinsonism, unspecified Parkinsonism type (HCC) - ICD9: 332.0, ICD10: G20.C (primary diagnosis) 2. Abnormality of gait - ICD9: 781.2, ICD10: R26.9 As previously noted, Parkinsonism with primary symptom being impaired gait. Etiology uncertain. These symptoms appears to be independent of strokes based on timeline of prior neuro events and onset of gait changes. Appears initially improved with use of Sinemet, but symptoms now similar to what they were when I last saw patient. Otherwise, no new focal neuro deficits. Pt reports compliance with medications, but uncertain if taking at regular times given irregular patterns of sleep and wake due to lack of responsibilities during day, as well as patient later indicating times in which he took Sinemet that did not match with those times he was assigned to take the medication. Explained the importance of taking Sinemet when Rx'd to do so and reviewed Rx. Will try to increase Sinemet 25/100mg to 2 tabs TID at 8AM, Noon and 5PM to see if any further improvement. Will also refer for physical therapy. Encouraged exrcise. Note no hydrocephalus on prior head imaging, and not endorsing NPH triad - in addition gait is not magnetic. 3. Recurrent strokes (HCC) - ICD9: 434.91, ICD10: I63.9 4. 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 Now following with Heme. On both Eliquis and ASA. PCP following lipids and pt on Lipitor 40mg daily. BP goal <140/90 and glucose goal <140 - per information provided today both appear stable. As for travel, with stability of neuro condition, should be ok as will be traveling with friend, but explained that I cannot clear him from the standpoint of other med conditions and encouraged him to follow up with PCP for this question and multiple other questions he had this visit unrelated to neuro status. 5. History of DVT (deep vein thrombosis) - ICD9: V12.51, ICD10: Z86.718 Encouraged follow up with Heme. States has appt next week but cannot find this in [employer]. 6. 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 Needs responsibilities or activities during the day to avoid sleeping whenever. Explained need to not nap during the day. Encouraged daylight exposure from 7AM to 7PM, and a dark quiet environment from 7PM to 7AM. Avoid electronics at night. Reviewed means of improving sleep hygiene. Jese Manley MD I spent a total of 40+ minutes on the date of the service which included preparing to see the patient, [id number] patient care, completing clinical documentation, obtaining and/or reviewing separately obtained history, performing a medically appropriate examination, counseling and educating the patient/family/caregiver, ordering medications, tests, or procedures, independently interpreting results (not separately reported), and communicating results to the patient/family/caregiver. documented in this encounter [facility] 07-12-2024 Note HNO ID: [id number] Author: JESE MANLEY JR, MD Service: ? Author Type: Physician Type: Progress Notes Filed: 07/12/2024 13:55 Note Text: ESTABLISHED PATIENT VISIT CHIEF COMPLAINT: Follow Up HISTORY OF PRESENT ILLNESS: Gustavo Patton is a 73 year old male, with a PMH significant for and per last office visit note with me on 10/20/23: 1. Recurrent strokes (HCC) - ICD9: 434.91, ICD10: I63.9 (primary diagnosis) 2. History of DVT (deep vein thrombosis) - ICD9: V12.51, ICD10: Z86.718 3. 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 Again, now on Eliquis and ASA 81mg per recs of Dr. Hart. Afib never determined on cardiac workup, but remains of concern. Given abnormal rhythms noted on Zio monitor, would like pt to follow up with his medical engineer Dr. Dill to determine if further workup necessary. Also question if pt would benefit from loop recorded but defer to cards. Otherwise no change in meds at this time. Dr. Hart following, and patient can follow up with Dr. Fraser for annual lipid panels (on statin but may need adjusted in future based on labs). BP goal <140/90. Glucose goal <140. 4. Parkinsonism, unspecified Parkinsonism type (HCC) - ICD9: 332.0, ICD10: G20.C Patient with change in gait since time of last visit that pt and caregiver who accompanies report as a progressive and not acute change. No spine symptoms such as pain. No b/b incontinence. Gait changes suggestive of parkinsonism. Concern for primary or PD with patient not having such symptoms after last stroke to suggest vascular cause. D/w pt and care director rn dx of PD, physiology, testing, treatment and prognosis. Hesitant to start on new meds given just recently placed on Eliquis yet, also concern for fall secondary to gait change which could result in hemorrhage. Again, no falls reported by patient. In the end, with pt approval, decision made to trial Sinemet 25/100mg TID with meals or 9AM/1PM/5PM. SE and ADRs d/w pt. Encouraged exercise and will consider PT depending on response to Sinemet. Will have pt back for reevaluation in 8 weeks or sooner prn. Did see Jackeline MCCLAIN during interim on 12/06/23. Per note: 1. Parkinsonism, unspecified Parkinsonism type (HCC) - ICD9: 332.0, ICD10: G20.C (primary diagnosis) Patient started on Sinemet 25 over 100 mg 1 tablet 3 times daily due to concerns of parkinsonism. Patient presents with his wood panel inspector for follow-up after starting this medication, notes significant improvement in getting up from a seated position and this is appreciable on exam today. Does have some mild improvement in his gait overall, but still shuffling, again appreciated on exam but noted improved posture while ambulating as well as turning with 3-4 steps instead of 5. No side effects with the Sinemet, would like to continue this therapy. Discussed increasing dosage to 1.5 tablets 3 times a day and patient and wood panel inspector amenable, discussed increased risk of side effects with increasing this medication and they agree and understand. Discussed importance of physical activity, discussed physical therapy and patient amenable to this. Would like to continue at [facility] as he is called her in the past and will fax order for physical therapy over today. No falls since last appointment, discussed fall prevention with patient and wood panel inspector. 2. Recurrent strokes (HCC) - ICD9: 434.91, ICD10: I63.9 3. History of DVT (deep vein thrombosis) - ICD9: V12.51, ICD10: Z86.718 4. 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 Cerebral infarction, unspecified mechanism (HCC) - ICD9: 434.91, ICD10: I63.9 6. Cerebrovascular accident (CVA), unspecified mechanism (HCC) - ICD9: 434.91, ICD10: I63.9 7. Left arm weakness - ICD9: 729.89, ICD10: R29.898 Patient with no new neurologic symptoms. Compliant with his Eliquis and following with hematology for chronic DVT. Managing risk factors with primary care including blood pressure, cholesterol and blood sugar. No new symptoms that would warrant additional workup at this time. 8. Pain in finger of left hand - ICD9: 729.5, ICD10: M79.645 9. Cervicalgia - ICD9: 723.1, ICD10: M54.2 Patient with new onset pain in the left fifth digit, described as a stinging pain that is present all the time. No etiology for onset that he can think of. Does have decree sensation to temperature in both fifth digits on either side. Denies any out right neck pain, but discussed possible physical therapy intervention and patient is amenable to this as opposed to trying EMG. Should symptoms persist, did discuss this could be an option and patient amenable. No weakness in the hand, no other neurologic deficits including paresthesias, unilateral weakness, vision symptoms, slurred speech, etc. Note presents without POA - not available by phone. Patient with list of questions. Going on a trip [place] and wants to know i (more content not included)... [facility] 05-14-2024 Miscellaneous Notes TC to pt who confirms he is taking 1.5 tablets. Celina Baldwin LPN Prescription Refill Information The patient has been identified by name and date of : Yes Caregiver verified no other encounters exist for this prescription request: Yes Caregiver confirmed with patient/requestor that no other refills are due, in the near future, with this provider at this time: Yes The last office visit in the department: 12/06/23 MQ Does the patient have a future office visit with this provider/department: Yes 07/12/24 WHENRIK Requested Prescriptions Pending Prescriptions Disp Refills carbidopa-levodopa (SINEMET 25-100) 25-100 mg per tablet [Pharmacy Med Name: CARBIDOPA-LEVODOPA 25-100 TAB] 270 tablet 1 Sig: TAKE 1 TABLET BY MOUTH THREE TIMES DAILY (AT 9AM, 1PM AND 5PM) Celina Baldwin LPN May 13, 2024 11:50 AM documented in this encounter [facility] 05-14-2024 Telephone encounter Note TC to pt who confirms he is taking 1.5 tablets. Celina Baldwin LPN [facility] 05-13-2024 Telephone encounter Note Prescription Refill Information The patient has been identified by name and date of : Yes Caregiver verified no other encounters exist for this prescription request: Yes Caregiver confirmed with patient/requestor that no other refills are due, in the near future, with this provider at this time: Yes The last office visit in the department: 12/06/23 MQ Does the patient have a future office visit with this provider/department: Yes 07/12/24 WHENRIK Requested Prescriptions Pending Prescriptions Disp Refills carbidopa-levodopa (SINEMET 25-100) 25-100 mg per tablet [Pharmacy Med Name: CARBIDOPA-LEVODOPA 25-100 TAB] 270 tablet 1 Sig: TAKE 1 TABLET BY MOUTH THREE TIMES DAILY (AT 9AM, 1PM AND 5PM) Celina Baldwin LPN May 13, 2024 11:50 AM [facility] 02-29-2024 Evaluation note Diagnosis Onset Date Resolution Essential (primary) hypertension chronic February 28 10:23am Stroke/cerebrovascular accident chronic February 28 10:23am [facility] Work Phone: 1(230) 195-814712-05-2024 Telephone encounter Note* Telephone Encounter - Jessika Pratt OCCA - 01/11/2024 3:45 PM EST TC to patient who verbalized understanding of medication sent to pharmacy. TIFFANY Noland [facility]12-05-2024 Miscellaneous Notes* Telephone Encounter - Jessika Pratt OCCA - 01/11/2024 3:45 PM EST TC to patient who verbalized understanding of medication sent to pharmacy. TIFFANY Noland * Telephone Encounter - Meg Cedillo LPN - 01/11/2024 2:06 PM EST The patient has been identified by name and date of : Yes Caregiver verified no other encounters exist for this prescription request: Yes Caregiver confirmed with patient/requestor that no other refills are due, in the near future, with this provider at this time: Yes The last office visit in the department: 12/06/2023 Does the patient have a future office visit with this provider/department: Yes 03/08/2024 Requested Prescriptions Pending Prescriptions Disp Refills carbidopa-levodopa (SINEMET 25-100) 25-100 mg per tablet 405 tablet 1 Sig: TAKE 1.5 TABLETS BY MOUTH THREE TIMES DAILY (AT 9AM, 1PM AND 5PM) Meg Cedillo LPN January 11, 2024 2:06 PM [facility] Telephone encounter Note * Telephone Encounter - Meg Cedillo LPN - 01/11/2024 2:06 PM EST The patient has been identified by name and date of : Yes Caregiver verified no other encounters exist for this prescription request: Yes Caregiver confirmed with patient/requestor that no other refills are due, in the near future, with this provider at this time: Yes The last office visit in the department: 12/06/2023 Does the patient have a future office visit with this provider/department: Yes 03/08/2024 Requested Prescriptions Pending Prescriptions Disp Refills carbidopa-levodopa (SINEMET 25-100) 25-100 mg per tablet 405 tablet 1 Sig: TAKE 1.5 TABLETS BY MOUTH THREE TIMES DAILY (AT 9AM, 1PM AND 5PM) Meg Cedillo LPN January 11, 2024 2:06 PM [facility]11-14-2024 Telephone encounter Note* Telephone Encounter - Erma Olsen RN - 12/21/2023 3:50 PM EST Patient's recent Neurology note (12/06/23) has been faxed to his PCP office at [phone], for their update and for continuation of care of patient. Erma Olsen RN [facility]11-14-2024 Miscellaneous Notes* Telephone Encounter - Erma Olsen RN - 12/21/2023 3:50 PM EST Patient's recent Neurology note (12/06/23) has been faxed to his PCP office at [phone], for their update and for continuation of care of patient. Erma Olsen RN documented [facility] Telephone encounter Note * Telephone Encounter - Liv Shaw LPN - 12/06/2023 2:09 PM EDT Orders and face sheet faxed. Liv Shaw LPN December 06, 2023 2:10 PM [facility]10-30-2024 Miscellaneous Notes* Telephone Encounter - Liv Shaw LPN - 12/06/2023 2:09 PM EDT Orders and face sheet faxed. Liv Shaw LPN December 06, 2023 2:10 PM * Telephone Encounter - Fallon Steiner PA-C - 12/06/2023 1:12 PM EDT Please fax PT order to [facility] in [place]. [facility] Telephone encounter Note * Telephone Encounter - Fallon Steiner PA-C - 12/06/2023 1:12 PM EDT Please fax PT order to [facility] in [place]. [facility]10-30-2024 Instructions* Patient Instructions* Fallon Steiner PA-C - 12/06/2023 12:53 PM EDT Physical therapy for your neck and parkinsons Increase sinemet to 1.5 tablets three times a day Increase water intake throughout the day Follow up in 3 months documented in this encounterK[facility]10-[facility]-2024 NoteHNO ID: [id number] Author: FALLON STEINER PA-C Service: ? Author Type: Physician Traveling Auditor Type: Progress Notes Filed: 12/06/2023 13:13 Note Text: ESTABLISHED PATIENT VISIT Last visit: 10/20/[address] Manley ASSESSMENT/PLAN: 1. Recurrent strokes (HCC) - ICD9: 434.91, ICD10: I63.9 (primary diagnosis) 2. History of DVT (deep vein thrombosis) - ICD9: V12.51, ICD10: Z86.718 3. 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 Again, now on Eliquis and ASA 81mg per recs of Dr. Hart. Afib never determined on cardiac workup, but remains of concern. Given abnormal rhythms noted on Zio monitor, would like pt to follow up with his medical engineer Dr. Dill to determine if further workup necessary. Also question if pt would benefit from loop recorded but defer to cards. Otherwise no change in meds at this time. Dr. Hart following, and patient can follow up with Dr. Fraser for annual lipid panels (on statin but may need adjusted in future based on labs). BP goal <140/90. Glucose goal <140. 4. Parkinsonism, unspecified Parkinsonism type (HCC) - ICD9: 332.0, ICD10: G20.C Patient with change in gait since time of last visit that pt and caregiver who accompanies report as a progressive and not acute change. No spine symptoms such as pain. No b/b incontinence. Gait changes suggestive of parkinsonism. Concern for primary or PD with patient not having such symptoms after last stroke to suggest vascular cause. D/w pt and care director rn dx of PD, physiology, testing, treatment and prognosis. Hesitant to start on new meds given just recently placed on Eliquis yet, also concern for fall secondary to gait change which could result in hemorrhage. Again, no falls reported by patient. In the end, with pt approval, decision made to trial Sinemet 25/100mg TID with meals or 9AM/1PM/5PM. SE and ADRs d/w pt. Encouraged exercise and will consider PT depending on response to Sinemet. Will have pt back for reevaluation in 8 weeks or sooner prn. Jese Manley MD CHIEF COMPLAINT: follow up HISTORY OF PRESENT ILLNESS: Gustavo Patton is a 73 year old male, There were no vitals taken for this visit. with a PMH significant for CVA, cardiomyopathy, diabetes, DVT on Eliquis, IVC filter. Last seen on 10/20/[address] Manley. Reporting some paresthesias in his calves. No new stroke sxs. Has parkinsons gait, new, started sinemet. 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 At last appointment was started on Sinemet due to new shuffled gait. Patient states he has been responding well to the Sinemet. 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 Notes that his gait is slightly improved. No falls since last appointment. Patient states that sometimes he feels like he is going to fall backwards. No side effects with the Sinemet including lightheadedness, impulsivity, GI upset. No new strokelike symptoms. Of note, he did have chronic numbness and tingling of the feet and states this is actually significantly improved since starting the Sinemet. He does report today that in the last few months he has developed some stinging in the fifth digit of the left hand, this is constant and not improved with certain positions. No weakness in the hands, no dropping things, no symptoms on the right upper extremity or bilateral lower extremities. Notes that it is just isolated to the fifth digit and does not radiate into the hand or other digits. No injuries to that hand or finger that he can think of, no history of similar in the past. No new medications or other etiology that he can think of for this symptom. No significant neck pain, but notes that he sleeps on his side, unsure if he cause any compression. Denies any paresthesias, weakness, vision changes,slurred speech or new stroke symptoms. REVIEW OF SYSTEMS GENERAL:No weight loss, malaise or fevers. HEENT:Negative for frequent or significant headaches, No changes in hearing or vision, no nose bleeds or other nasal problems NECK:Negative for lumps, goiter, pain and significant neck swelling RESPIRATORY: Negative for cough, wheezing or shortness of breath. CARDIOVASCULAR: Negative for chest pain, leg swelling or palpitations. GASTROINTESTINAL: Negative for abdominal discomfort, blood in stools or black stools or change in bowel habits GENITOURINARY: No history of dysuria, frequency or incontinence MUSCULOSKELETAL: Negative for joint pain or swelling, back pain or muscle pain. NEUROLOGIC:Negative for focal numbness or weakness, headaches and dizziness or syncope, vision changes, speech/languag changes - EXCEPT that as per HPI above. SKIN:Negative for lesions, rash, and itching. PSYCHIATRIC: Negative for sleep disturbance, mood disorder and recent psychosocial stressors. HEMATOLOGIC/LYMPHATIC/IMMUNOLOGIC:Negative for prolonged bleeding, bru (more content not included)...[facility]10-30-2024 History of Present illness Narrative* Fallon Steiner PA-C - 12/06/2023 12:25 PM EDT ESTABLISHED PATIENT VISIT Last visit: 10/20/[address] Manley ASSESSMENT/PLAN: 1. Recurrent strokes (HCC) - ICD9: 434.91, ICD10: I63.9 (primary diagnosis) 2. History of DVT (deep vein thrombosis) - ICD9: V12.51, ICD10: Z86.718 3. 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 Again, now on Eliquis and ASA 81mg per recs of Dr. Hart.Afib never determined on cardiac workup, but remains of concern. Given abnormal rhythms noted on Zio monitor, would like pt to follow up with his medical engineer Dr. Dill to determine if further workupnecessary. Also question if pt would benefit from loop recorded but defer to cards. Otherwise no change in meds at this time. Dr. Hart following, and patient can follow up with Dr. Fraser for annual lipid panels (on statin but may need adjusted in future based on labs). BP goal <140/90. Glucose goal <140. 4. Parkinsonism, unspecified Parkinsonism type (HCC) - ICD9: 332.0, ICD10: G20.C Patient with change in gait since time of last visit that pt and caregiver who accompanies report as a progressive and not acute change. No spine symptoms such as pain. No b/b incontinence. Gait changes suggestive of parkinsonism. Concern for primary or PD with patient not having such symptoms after last stroke to suggest vascular cause. D/w pt and care director rn dx of PD, physiology, testing, treatment and prognosis. Hesitant to start on new meds given just recently placed on Eliquis yet, also concern for fall secondary to gait change which could result in hemorrhage. Again, no falls reported bypatient. In the end, with pt approval, decision made to trial Sinemet 25/100mg TID with meals or 9AM /1PM/5PM. SE and ADRs d/w pt. Encouraged exercise and will consider PT depending on response to Sinemet. Will have pt back for reevaluation in 8 weeks or sooner prn. Jese Manley MD CHIEF COMPLAINT: follow up HISTORY OF PRESENT ILLNESS: Gustavo Patton is a 73 year old male, There were no vitals taken for this visit. with a PMH significant for CVA, cardiomyopathy, diabetes, DVT on Eliquis, IVC filter. Last seen on 10/20/[address] Manley. Reporting some paresthesias in his calves. No new stroke sxs. Has parkinsons gait, new, started sinemet. 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 At last appointment was started on Sinemet due to new shuffled gait. Patient states he has been responding well to the Sinemet. 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 Notes that his gait is slightly improved. No falls since last appointment. Patient states that sometimes he feels like he is going to fall backwards. No side effects with the Sinemet including lightheadedness, impulsivity, GI upset. No new strokelike symptoms. Of note, he did have chronic numbness and tingling of the feet and states this is actually significantly improved since starting the Sinemet. He does report today that in the last few months he has developed some stinging in the fifth digit of the left hand, this is constant and not improved with certain positions. No weakness in the hands, no dropping things, no symptoms on the right upper extremity or bilateral lower extremities. Notesthat it is just isolated to the fifth digit and does not radiate into the hand or other digits. No injuries to that hand or finger that he can think of, no history of similar in the past. No new medications or other etiology that he can think of for this symptom. No significant neck pain, but notesthat he sleeps on his side, unsure if he cause any compression. Denies any paresthesias, weakness, vision changes, slurred speech or new stroke symptoms. REVIEW OF SYSTEMS GENERAL:No weight loss, malaise or fevers. HEENT:Negative for frequent or significant headaches, No changes in hearing or vision, no nose bleeds or other nasal problems NECK:Negative for lumps, goiter, pain and significant neck swelling RESPIRATORY: Negative for cough, wheezing or shortness of breath. CARDIOVASCULAR: Negative for chest pain, leg swelling or palpitations. GASTROINTESTINAL: Negative for abdominal discomfort, blood in stools or black stools or change in bowel habits GENITOURINARY: No history of dysuria, frequency or incontinence MUSCULOSKELETAL: Negative for joint pain or swelling, back pain or muscle pain. NEUROLOGIC:Negative for focal numbness or weakness, headaches and dizziness or syncope, vision changes, speech/languag changes - EXCEPT that as per HPI above. SKIN:Negative for lesions, rash, and itching. PSYCHIATRIC: Negative for sleep disturbance, mood disorder and recent psychosocial stressors. HEMATOLOGIC/LYMPHATIC/IMMUNOLOGIC:Negative for prolonged bleeding, bruising easily or swollen nodes. ENDOCRINE: Negative for cold or heat intolerance, polyuria, polydipsia and goiter. The remainder of the ROS was reviewed and is negative. LAB/IMAGING: Those performed since patient's last visit have been reviewed. None since last appointment MEDICATIONS: apixaban (ELIQUIS) 5 mg tab(s) Take 1 tablet by mouth two times a day. multivitamin tablet Take 1 tablet by mouth once daily. Ipratropium [place] (ATROVENT) 21 mcg (0.03 %) nasal spray Use 1 [place] in the nose three times a day as needed. SENNA-DOCUSATE SODIUM ORAL Take one tablet by mouth every other day as needed. loratadine (CLARITIN) 10 mg tablet Take 10 mg by mouth once daily. pantoprazole DR (PROTONIX) 20 mg tablet Take 1 tablet by mouth once daily. metoprolol succinate ER (TOPROL XL) 25 mg 24 hr tablet TAKE 1 TABLET BY MOUTH EVERY DAY atorvastatin (LIPITOR) 40 mg tablet 1 TABLET BY ORAL/FEEDING TUBE ROUTE DAILY AT BEDTIME. (Patient taking differently: Take 40 mg by mouth daily at bedtime.) lisinopril 2.5 mg tablet Take 1 tablet by mouth once daily. metFORMIN (GLUCOPHAGE) 500 mg tablet Take 500 mg by mouth once daily. carbidopa-levodopa (SINEMET 25-100) 25-100 mg per tablet TAKE 1.5 TABLETS BY MOUTH THREE TIMES DAILY (AT 9AM, 1PM AND 5PM) HISTORIES PAST MEDICAL HISTORY Diagnosis Date Diabetes mellitus (HCC) Diastolic heart failure (HCC) DVT of lower extremity (deep venous thrombosis) (HCC) Dysphagia HTN (hypertension) Primary cardiomyopathy (HCC) Primary cardiomyopathy (HCC) Shortness of breath Stroke (cerebrum) (HCC) FAMILY HISTORY Problem Relation Age of Onset Diabetes Father SOCIAL HISTORY Social History Tobacco Use Smoking status: Never Smokeless tobacco: Never Vaping Use Vaping status: Never Used Substance Use Topics Alcohol use: Never Drug use: Never PHYSICAL EXAMINATION BP 122/73 (BP Site: Left Arm, BP Position: Sitting) Pulse 95 SpO2 96% GENERAL EXAM: General appearance: NAD, pleasant. HEENT: NC/AT, nasal congestion absent, no oral lesions, membranes moist. NECK: No masses, supple. Lungs: Breathing comfortably Extr: Moves all extremities without difficulty Skin: Cool to touch. No rash. NEUROLOGICAL EXAM: General: Awake, alert, oriented x3 (person,place,time), speech fluent, no dysarthria; comprehension, naming, repetition intact. CN: PERRL, EOMI and without nystagmus, VFF to confrontation, facial sensation and strength are normal and symmetric, hearing is intact to finger rub bilaterally, palate and tongue movements are intact and symmetric. SCM and trapezius strength normal. Motor: Slight increase in tone in the left lower extremity, bulk and strength (5/5) bilaterally (throughout extremities x4). Reflexes: 2/4 and symmetric, plantar stimulation is flexor. Negative Vinh Coordination: FNF intact. No tremors. Sensation: Slight decrease in temperature to the fifth digits on both upper extremities compared tothe rest of the hand. Intact vibration and temperature throughout Gait: Able to raise out of chair without any difficulty, shuffled gait, decreased arm swing bilaterally, but slightly worse on the left. Took 3-4 steps turning, positive retropulsion. Assessment and Plan: ASSESSMENT/PLAN: 1. Parkinsonism, unspecified Parkinsonism type (HCC) - ICD9: 332.0, ICD10: G20.C (primary diagnosis) Patient started on Sinemet 25 over 100 mg 1 tablet 3 times daily due to concerns of parkinsonism. Patient presents with his wood panel inspector for follow-up after starting this medication, notes significant improvement in getting up from a seated position and this is appreciable on exam today. Does have some mild improvement in his gait overall, but still shuffling, again appreciated on exam but noted improved posture while ambulating as well as turning with 3-4 steps instead of 5. No side effects with the Sinemet, would like to continue this therapy. Discussed increasing dosage to 1.5 tablets 3 timesa day and patient and wood panel inspector amenable, discussed increased risk of side effects with increasing t his medication and they agree and understand. Discussed importance of physical activity, discussed physical therapy and patient amenable to this. Would like to continue at [facility] as he is calledher in the past and will fax order for physical therapy over today. No falls since last appointment, discussed fall prevention with patient and wood panel inspector. 2. Recurrent strokes (HCC) - ICD9: 434.91, ICD10: I63.9 3. History of DVT (deep vein thrombosis) - ICD9: V12.51, ICD10: Z86.718 4. 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 Cerebral infarction, unspecified mechanism (HCC) - ICD9: 434.91, ICD10: I63.9 6. Cerebrovascular accident (CVA), unspecified mechanism (HCC) - ICD9: 434.91, ICD10: I63.9 7. Left arm weakness - ICD9: 729.89, ICD10: R29.898 Patient with no new neurologic symptoms. Compliant with his Eliquis and following with hematology for chronic DVT. Managing risk factors with primary care including blood pressure, cholesterol and blood sugar. No new symptoms that would warrant additional workup at this time. 8. Pain in finger of left hand - ICD9: 729.5, ICD10: M79.645 9. Cervicalgia - ICD9: 723.1, ICD10: M54.2 Patient with new onset pain in the left fifth digit, described as a stinging pain that is present all the time. No etiology for onset that he can think of. Does have decree sensation to temperature in both fifth digits on either side. Denies any out right neck pain, but discussed possible physical therapy intervention and patient is amenable to this as opposed to trying EMG. Should symptoms persist, did discuss this could be an option and patient amenable. No weakness in the hand, no other neurologic deficits including paresthesias, unilateral weakness, vision symptoms, slurred speech, etc. Patient agreeable to treatment plan of care at this time, questions were answered. Patient to follow-up in [address] Manley. Fallon Steiner PA-C I spent a total of 45 minutes on the date of the service which included preparing to see the patient, [id number] patient care, completing clinical documentation, obtaining and/or reviewing separately obtained history, performing a medically appropriate examination, counseling and educating the pat ient/family/caregiver, and ordering medications, tests, or procedures. This document has been created with the use of voice recognition technology. It may contain inaccuracies: (e.g. misspellings, inaccurate syntax or word sense) that have escaped review. documented in this [facility]10[facility] Telephone encounter Note * Telephone Encounter - Celina Baldwin LPN - 11/14/2023 1:11 PM EDT Requesting 90 days. Celina Baldwin LPN [facility]10-08-2024 Miscellaneous Notes* Telephone Encounter - Celina Baldwin LPN - 11/14/2023 1:11 PM EDT Requesting 90 days. Celina Baldwin LPN documented in this [facility] Telephone encounter Note * Telephone Encounter - Liv Shaw LPN - 10/20/2023 1:14 PM EDT Called office notified fax will be coming for patient who needs appointment brooke, staff verified. Fax sent. Liv Shaw LPN October 20, 2023 1:15 PM [facility]09-13[facility]24 Miscellaneous Notes* Telephone Encounter - Liv Shaw LPN - 10/20/2023 1:14 PM EDT Called office notified fax will be coming for patient who needs appointment brooke, staff verified. Fax sent. Liv Shaw LPN October 20, 2023 1:15 PM * Telephone Encounter - Liv Shaw LPN - 10/20/2023 12:04 PM EDT Images from the original note were not included. Jese Manley Jr., MD P Wstr Ne[facility] Sindhu Nurse Please help pt schdule follow up with Dr. Aniyah MOREL. Please send copy of Zio monitor. documented in this encounterK[facility]24 Telephone encounter Note * Telephone Encounter - iLv Shaw LPN - 10/20/2023 12:04 PM EDT Images from the original note were not included. Jese Manley Jr., MD P Wstr Neur Sindhu Nurse Please help pt schdule follow up with Dr. Aniyah MOREL. Please send copy of Zio monitor. [facility]09[facility]24 NoteHNO ID: [id number] Author: JESE MANLEY JR, MD Service: ? Author Type: Physician Type: Progress Notes Filed: 10/20/2023 11:31 Note Text: ESTABLISHED PATIENT VISIT CHIEF COMPLAINT: Follow Up HISTORY OF PRESENT ILLNESS: Gustavo Patton is a 72 year old male, with a PMH significant for and per last visit of 07/17/23: 1. Recurrent strokes (HCC) - ICD9: 434.91, ICD10: I63.9 (primary diagnosis) Patient with recurrent strokes over the past couple years, of which etiology is uncertain. He has multiple stroke risk factors including HTN, DM, HLD - uncertain to what extent these risk factors are controlled. However, concerning that strokes have occurred in various vascular distributions and thus, possible central embolic source. Limited follow up with me (as above) and patient is limited historian as well, making it difficult to determine cause of symptoms. Non focal neuro exam at present. I reviewed prior records as best could be given limited records available for review. Repeat ECHOs have not shown cardiac source. HOWEVER, still need to consider possible paroxysmal afib, and thus willrepeat Zio monitor. Will also get new imaging of both intra and extracranial large vessels to evaluate for stenosis or LVO with pt not having such imagining during last admit (per documentation that I reviewed. Also given multiple strokes as well as DVT, patient may benefit from heme evaluation for clotting disorder. Will place consult. Was going to draw labs today but pt declined. In addition: -Continue Plavix 75mg daily. -Continue statin with PCP follow up - goal LDL <70. -BP goal <140/90. -Glucose goal <140. -MRA head and neck to evaluate for large vessel disease. -Zio monitor as above. -Need most updated PCP and cards notes and will request. -Follow up after completion of testing above. -Patient needs family or others who know med history to attend visits with patient to help with history. MRA brain per rad report: Relative paucity of distal branches of the left MCA compatible with the remote cortical infarct in this vascular territory. Otherwise no evidence of significant large vessel intracranial occlusive disease. No significant stenosis in either carotid bifurcation by NASCET criteria. Patent cervical vertebral arteries. Zio monitor showed per report (no afib): RHYTHM FINDINGS: Patient had a min HR of 53 bpm, max HR of 179 bpm, and avg HR of 82 bpm. Predominant underlying rhythm was Sinus Rhythm. 1 run of Ventricular Tachycardia occurred lasting 4 beats with a max rate of 179 bpm (avg 135 bpm). Isolated SVEs were rare (<1.0%), SVE Couplets were rare (<1.0%), and SVE Triplets were rare (<1.0%). Isolated VEs were occasional (2.0%, [id number]), VE Couplets were rare (<1.0%, 70), and no VE Triplets were present. Ventricular Bigeminy and Trigeminy were present. Pt has also seen Dr. Alfredo Hart of Heme and I have discussed plan with Dr. Hart as documented per his note: (I63.9) Recurrent strokes (HCC) (primary encounter diagnosis) (I82.511) Chronic deep vein thrombosis (DVT) of femoral vein of right lower extremity (HCC) (Z95.828) Presence of IVC filter Assessment: -72 yo male with h/o multiple strokes. At least one occurred after IVC filter placed in 2021. No repeat duplex ultrasound of the legs when inpatient in the fall 2022 -Currently on Plavix. -Was not previously on anticoagulation when had original right lower extremity DVT secondary to need for fibrinolytic therapy. -No exam findings of postphlebitic syndrome. -Elevated factor VIII:C. -Multiple strokes in differing vascular territories -Discussed starting apixaban and stopping Plavix. Plan: -I will contact his BAKER PIE that sees him through the [facility] care network via [facility] to update her on medication recommendations (Dorindakofi White, BAKER PIE [phone] -Rx apixaban 5 mg BID. -Stop Plavix. -Okay to resume ASA for history of PVD (suggested by SYLVIE 12/2021). Patient reports no longer riding motorcycle. Very talkative. When getting up from seated position sometimes feels tingling in back of calves (not pain). Goes away once up on his feet for 5 seconds. No back pain. Now on Eliquis as above. No side effects, but patient again mentions that his feet are tingling. Unclear if this is the same tingling he describes above. When I explain risks of Eliquis then tells me he is having heart fluttering when lifting weights. Pt follows with Dr. Dill. No other new neurologic deficits. Denies back pain. Lives by self - independent. Hemoglobin A1C (%) Date Value 04/02/2021 14.4 Family reports most recent in July 2023 was 7.2. Spends most days watching tv and sleeping, but states he is trying to increase exercise. Still working about 2-3 hours per day at [employer]. No family history neuro disorders. Pt denies falls. Handwriting getting smaller. REVIEW OF SYSTEMS GENERAL:No weight loss, malaise or fevers. HEENT:Negative for fr (more content not included)...[facility] 10-20-2023 History of Present illness Narrative* Jese Manley Jr., MD - 10/20/2023 10:36 AM EDT ESTABLISHED PATIENT VISIT CHIEF COMPLAINT: Follow Up HISTORY OF PRESENT ILLNESS: Gustavo Patton is a 72 year old male, with a PMH significant for and per last visit of 07/17/23: 1. Recurrent strokes (HCC) - ICD9: 434.91, ICD10: I63.9 (primary diagnosis) Patient with recurrent strokes over the past couple years, of which etiology is uncertain. He has multiple stroke risk factors including HTN, DM, HLD - uncertain to what extent these risk factors arecontrolled. However, concerning that strokes have occurred in various vascular distributions and thus, possible central embolic source. Limited follow up with me (as above) and patient is limited historian as well, making it difficult to determine cause of symptoms. Non focal neuro exam at present.I reviewed prior records as best could be given limited records available for review. Repeat ECHOs have not shown cardiac source. HOWEVER, still need to consider possible paroxysmal afib, and thus will repeat Zio monitor. Will also get new imaging of both intra and extracranial large vessels to evaluate for stenosis or LVO with pt not having such imagining during last admit (per documentation that I reviewed. Also given multiple strokes as well as DVT, patient may benefit from heme evaluation for clotting disorder. Will place consult. Was going to draw labs today but pt declined. In addition: -Continue Plavix 75mg daily. -Continue statin with PCP follow up - goal LDL <70. -BP goal <140/90. -Glucose goal <140. -MRA head and neck to evaluate for large vessel disease. -Zio monitor as above. -Need most updated PCP and cards notes and will request. -Follow up after completion of testing above. -Patient needs family or others who know med history to attend visits with patient to help with history. MRA brain per rad report: Relative paucity of distal branches of the left MCA compatible with the remote cortical infarct in this vascular territory. Otherwise no evidence of significant large vessel intracranial occlusive disease. No significant stenosis in either carotid bifurcation by NASCET criteria. Patent cervical vertebral arteries. Zio monitor showed per report (no afib): RHYTHM FINDINGS: Patient had a min HR of 53 bpm, max HR of 179 bpm, and avg HR of 82 bpm. Predominant underlying rhythm was Sinus Rhythm. 1 run of Ventricular Tachycardia occurred lasting 4 beats with a max rate of 179 bpm (avg 135 bpm). Isolated SVEs were rare (<1.0%), SVE Couplets were rare (<1.0%), and SVE Triplets were rare (<1.0%). Isolated VEs were occasional (2.0%, 17083), VE Coupl ets were rare (<1.0%, 70), and no VE Triplets were present. Ventricular Bigeminy and Trigeminy were present. Pt has also seen Dr. Alfredo Hart of [facility] and I have discussed plan with Dr. Hart as documented per hisnote: (I63.9) Recurrent strokes (HCC) (primary encounter diagnosis) (I82.511) Chronic deep vein thrombosis (DVT) of femoral vein of right lower extremity (HCC) (Z95.828) Presence of IVC filter Assessment: -72 yo male with h/o multiple strokes. At least one occurred after IVC filter placed in 2021. No repeat duplex ultrasound of the legs when inpatient in the fall 2022 -Currently on Plavix. -Was not previously on anticoagulation when had original right lower extremity DVT secondary to need for fibrinolytic therapy. -No exam findings of postphlebitic syndrome. -Elevated factor VIII:C. -Multiple strokes in differing vascular territories -Discussed starting apixaban and stopping Plavix. Plan: -I will contact his BAKER PIE that sees him through the community care network via [facility] to update her on medication recommendations (Dorinda White, BAKER PIE [phone] -Rx apixaban 5 mg BID. -Stop Plavix. -Okay to resume ASA for history of PVD (suggested by SYLVIE 12/2021). Patient reports no longer riding motorcycle. Very talkative. When getting up from seated position sometimes feels tingling in back of calves (not pain). Goes away once up on his feet for 5 seconds. No back pain. Now on Eliquis as above. No side effects, but patient again mentions that his feet are tingling. Unclear if this is the same tingling he describes above. When I explain risks of Eliquis then tells me he is having heart fluttering when lifting weights. Pt follows with Dr. Dill. No other new neurologic deficits. Denies back pain. Lives by self - independent. Hemoglobin A1C (%) Date Value 04/02/2021 14.4 Family reports most recent in July 2023 was 7.2. Spends most days watching tv and sleeping, but states he is trying to increase exercise. Still working about 2-3 hours per day at [employer]. No family history neuro disorders. Pt denies falls. Handwriting getting smaller. REVIEW OF SYSTEMS GENERAL:No weight loss, malaise or fevers. HEENT:Negative for frequent or significant headaches, No changes in hearing or vision, no nose bleeds or other nasal problems NECK:Negative for lumps, goiter, pain and significant neck swelling RESPIRATORY: Negative for cough, wheezing or shortness of breath. CARDIOVASCULAR: Negative for chest pain, leg swelling or palpitations. GASTROINTESTINAL: Negative for abdominal discomfort, blood in stools or black stools or change in bowel habits GENITOURINARY: No history of dysuria, frequency or incontinence MUSCULOSKELETAL: Negative for joint pain or swelling, back pain or muscle pain. NEUROLOGIC:See HPI. LAB/IMAGING: Those performed since patient's last visit have been reviewed. WBC (k/uL) Date Value 04/15/2021 8.65 RBC (m/uL) Date Value 04/15/2021 4.87 Hemoglobin (g/dL) Date Value 04/15/2021 14.7 Hematocrit (%) Date Value 04/15/2021 43.8 MCV (fL) Date Value 04/15/2021 89.9 MCH (pg) Date Value 04/15/2021 30.2 MCHC (g/dL) Date Value 04/15/2021 33.6 RDW-CV (%) Date Value 04/15/2021 12.3 Platelet Count (k/uL) Date Value 04/15/2021 301 MPV (fL) Date Value 04/15/2021 12.2 Glucose (mg/dL) Date Value 04/15/2021 117 (H) BUN (mg/dL) Date Value 04/15/2021 25 (H) Creatinine (mg/dL) Date Value 04/15/2021 1.07 Sodium (mmol/L) Date Value 04/15/2021 137 Potassium (mmol/L) Date Value 04/15/2021 4.5 Chloride (mmol/L) Date Value 04/15/2021 100 CO2 (mmol/L) Date Value 04/15/2021 26 Protein, Total (g/dL) Date Value 04/15/2021 7.3 Albumin (g/dL) Date Value 04/15/2021 4.0 Calcium, Total (mg/dL) Date Value 04/15/2021 9.6 Alkaline Phosphatase (U/L) Date Value 04/15/2021 96 Bilirubin, Total (mg/dL) Date Value 04/15/2021 0.5 AST (U/L) Date Value 04/15/2021 22 ALT (U/L) Date Value 04/15/2021 21 MEDICATIONS: apixaban (ELIQUIS) 5 mg tab(s) Take 1 tablet by mouth two times a day. multivitamin tablet Take 1 tablet by mouth once daily. Ipratropium [place] (ATROVENT) 21 mcg (0.03 %) nasal spray Use 1 [place] in the nose three times a day as needed. SENNA-DOCUSATE SODIUM ORAL Take one tablet by mouth every other day as needed. loratadine (CLARITIN) 10 mg tablet Take 10 mg by mouth once daily. pantoprazole DR (PROTONIX) 20 mg tablet Take 1 tablet by mouth once daily. metoprolol succinate ER (TOPROL XL) 25 mg 24 hr tablet TAKE 1 TABLET BY MOUTH EVERY DAY atorvastatin (LIPITOR) 40 mg tablet 1 TABLET BY ORAL/FEEDING TUBE ROUTE DAILY AT BEDTIME. (Patient taking differently: Take 40 mg by mouth daily at bedtime.) lisinopril 2.5 mg tablet Take 1 tablet by mouth once daily. metFORMIN (GLUCOPHAGE) 500 mg tablet Take 500 mg by mouth once daily. HISTORIES PAST MEDICAL HISTORY Diagnosis Date Diabetes mellitus (HCC) Diastolic heart failure (HCC) DVT of lower extremity (deep venous thrombosis) (HCC) Dysphagia HTN (hypertension) Primary cardiomyopathy (HCC) Primary cardiomyopathy (HCC) Shortness of breath Stroke (cerebrum) (HCC) FAMILY HISTORY Problem Relation Age of Onset Diabetes Father SOCIAL HISTORY Social History Tobacco Use Smoking status: Never Smokeless tobacco: Never Vaping Use Vaping status: Never Used Substance Use Topics Alcohol use: Never Drug use: Never PHYSICAL EXAMINATION Blood pressure 122/78, pulse 86, weight 83.4 kg (183 lb 12.8 oz), SpO2 97%. GENERAL EXAM: General appearance: NAD, pleasant. HEENT: NC/AT, nasal congestion absent, no oral lesions, membranes moist. NECK: ROM nml. Lungs: CTA bilaterally. CV: RRR nl S1, S2 Extr: No cyanosis, clubbing or edema. Skin: Cool to touch. NEUROLOGICAL EXAM: General: Masked facies. Awake, alert, oriented x3 (person,place,time), Language stable, no dysarthria; naming, repetition intact. CN: PERRL, EOMI and without nystagmus, VFF to confrontation, facial sensation and strength are normal and symmetric, hearing is intact to finger rub bilaterally, palate and tongue movements are intact and symmetric. SCM and trapezius strength normal. Motor: Normal bulk and strength (5/5) bilaterally (throughout extremities x4). Coordination: FNF, ALEKSANDR, HTS intact. No tremors. Sensation: Light touch, vibration, temperature intact throughout. No evidence of neglect. Gait: Difficulties rising from chair. Stooped posture. Decreased stride. Decreased arm swing krunal. Difficulties turning 180 degrees (5 steps), +retropulsion. Assessment and Plan: ASSESSMENT/PLAN: 1. Recurrent strokes (HCC) - ICD9: 434.91, ICD10: I63.9 (primary diagnosis) 2. History of DVT (deep vein thrombosis) - ICD9: V12.51, ICD10: Z86.718 3. 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 Again, now on Eliquis and ASA 81mg per recs of Dr. Hart.Afib never determined on cardiac workup, but remains of concern. Given abnormal rhythms noted on Zio monitor, would like pt to follow up with his medical engineer Dr. Dill to determine if further workupnecessary. Also question if pt would benefit from loop recorded but defer to cards. Otherwise no change in meds at this time. Dr. Hart following, and patient can follow up with Dr. Fraser for annual lipid panels (on statin but may need adjusted in future based on labs). BP goal <140/90. Glucose goal <140. 4. Parkinsonism, unspecified Parkinsonism type (HCC) - ICD9: 332.0, ICD10: G20.C Patient with change in gait since time of last visit that pt and caregiver who accompanies report as a progressive and not acute change. No spine symptoms such as pain. No b/b incontinence. Gait changes suggestive of parkinsonism. Concern for primary or PD with patient not having such symptoms after last stroke to suggest vascular cause. D/w pt and care director rn dx of PD, physiology, testing, treatment and prognosis. Hesitant to start on new meds given just recently placed on Eliquis yet, also concern for fall secondary to gait change which could result in hemorrhage. Again, no falls reported bypatient. In the end, with pt approval, decision made to trial Sinemet 25/100mg TID with meals or 9AM /1PM/5PM. SE and ADRs d/w pt. Encouraged exercise and will consider PT depending on response to Sinemet. Will have pt back for reevaluation in 8 weeks or sooner prn. Jese Manley MD I spent a total of 48 minutes on the date of the service which included preparing to see the patient, [id number] patient care, completing clinical documentation, obtaining and/or reviewing separately obtained history, performing a medically appropriate examination, counseling and educating the pat ient/family/caregiver, ordering medications, tests, or procedures, and communicating results to thepatient/family/caregiver. documented in this encounterK[facility]08-27-[facility]24 Telephone encounter Note * Telephone Encounter - Celina Baldwin LPN - 10/03/2023 4:06 PM EDT Pt has upcoming appt with RAMIREZ on 10-20-23 Celina Baldwin LPN [facility]08-27-[facility]24 Miscellaneous Notes* Telephone Encounter - Celina Baldwin LPN - 10/03/2023 4:06 PM EDT Pt has upcoming appt with RAMIREZ on 10-20-23 Celina Baldwin LPN * Telephone Encounter - Jessika Pratt OCCA - 09/20/2023 8:57 AM EDT Multiple attempts to reach patient by phone and MC message with no success. Sent letter to patientshome address to call office for below results and recommendations. TIFFANY Noland * Telephone Encounter - Celina Baldwin LPN - 09/19/2023 1:38 PM EDT TC to pt with no answer. Left VM to return call. Celina Baldwin LPN * Telephone Encounter - Rand Johansen LPN - 09/14/2023 6:32 PM EDT Phone call placed no answer, brief message left. [employer] log[employer] 09/13/2023, message sent. Rand Johansen LPN * Telephone Encounter - Rand Johansen LPN - 09/14/2023 6:31 PM EDT ----- Message from Jese Manley Jr., MD sent at 09/14/2023 4:26 PM EDT ----- Pt reportedly had Vtach on monitor - no afib - would like pt to see cardiology. If pt not actively following with cardiology we can make appt. Please confirm with pt. Jese Manley MD documented in this encounterK[facility]08-27-2024 Telephone encounter Note * Telephone Encounter - Shereen Mercedes LISW - 10/03/2023 1:38 PM EDT Unfortunately since pt filled the script he is ineligible for the co-pay card. However, he could likely qualify for the patient assistance program through [employer]. I'll prepare the application and contact Dorinda and patient to discuss. GLENN Adkins [facility]08-27-2024 Miscellaneous Notes* Telephone Encounter - Shereen Mercedes LISW - 10/03/2023 1:38 PM EDT Unfortunately since pt filled the script he is ineligible for the co-pay card. However, he could likely qualify for the patient assistance program through [employer]. I'll prepare the application and contact Dorinda and patient to discuss. GLENN Adkins * Telephone Encounter - Haydee Kelley LPN - 10/03/2023 12:55 PM EDT Dorinda from [facility] is calling. Asking if pt is to stop Plavix as pt was started on Eliquis. Per OV note -Rx apixaban 5 mg BID. -Stop Plavix. -Okay to resume ASA for history of PVD (suggested by SYLVIE 12/2021). Relayed that to Dorinda. However pt went to package pick up Rx, was $500, he did pick it up and pay for it but will not be able to do that every month. Will ask our hospital social worker first if there is a Copay card he can utilize. Dr Hart, is pt to follow up here or resume f/u with your recommendation to PCP. Haydee Kelley LPN * Telephone Encounter - Masha Pichardo - 10/03/2023 11:45 AM EDT Please call Dorinda [phone]. She has questions regarding plavix and eliquis. documented in this encounterK[facility]08-27-2024 Telephone encounter Note * Telephone Encounter - Haydee Kelley LPN - 10/03/2023 12:55 PM EDT [facility]inda from [facility] is calling. Asking if pt is to stop Plavix as pt was started on Eliquis. Per OV note -Rx apixaban 5 mg BID. -Stop Plavix. -Okay to resume ASA for history of PVD (suggested by SYLVIE 12/2021). Relayed that to Dorinda. However pt went to package pick up Rx, was $500, he did pick it up and pay for it but will not be able to do that every month. Will ask our hospital social worker first if there is a Copay card he can utilize. Dr Hart, is pt to follow up here or resume f/u with your recommendation to PCP. Haydee Kelley LPN [facility] Telephone encounter Note* Telephone Encounter - Masha Pichardo - 10/03/2023 11:45 AM EDT Please call Dorinda [phone]. She has questions regarding plavix and eliquis. [facility] Work Phone: [phone] NoteHNO ID: [id number] Author: CRUZITO HART, DO Service: ? Author Type: Physician Type: Progress Notes Filed: 10/01/2023 16:42 Note Text: Hematologic problem(s): 1) H/O RLE DVT. 2) IVC filter 2021. 3) Multiple strokes in differing vascular territories. 4) Elevated factor VIII:C; normal CRP. HPI: The patient is a 72-year-old male with a past medical history as outlined below. 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 He has underlying history of hypertension, diabetes mellitus, and diastolic heart failure. 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 He was diagnosed with left MCA infarct with petechial hemorrhage, transferred to [facility]. He also had left M1 occlusion. He underwent mechanical thrombectomy of his left MCA infarct by Dr. Mohamud. He also had an echocardiogram, which revealed ejection fraction of 45%. His hospital course was complicated by chronic diastolic heart failure as well as right popliteal deep vein thrombosis. With his recent thrombectomy, he is only anticoagulated for least 6 to 8 weeks. He does have an inferior vena cava filter placed. 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 Functionally, heis requiring minimal assistance for his bed mobility and transfers, ambulates 40 feet with a wheeled walker, minimal assistance. He was now admitted to [facility] for poststroke inpatient rehabilitation therapies. IVC filter placed 04/20/2021. No procedure note indicating it was removed. 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 Left leg negative for acute DVT. Per Dr. Manley's most recent note, Patient with recurrent strokes over the past couple years, of which etiology is uncertain. He ahs multiple stroke risk factors including HTN, DM, HLD - uncertain to what extent these risk factors are controlled. However, concerning that strokes have occurred in various vascular distributions and thus, possible central embolic source. Limited follow up with me (as above) and patient is limited historian as well, making it difficult to determine cause of symptoms. Non focal neuro exam at present. I reviewed prior records as best could be given limited records available for review. Repeat ECHOs have not shown cardiac source. HOWEVER, still need to consider possible paroxysmal afib, and thus will repeat Zio monitor. Will also get new imaging of both intra and extracranial large vessels to evaluate for stenosis or LVO with pt not having such imagining during last admit (per documentation that I reviewed. Also given multiple strokes as well as DVT, patient may benefit from heme evaluation for clotting disorder. Will place consult. Was going to draw labs today but pt declined. Carotid arterial duplex ultrasound 04/2022 showed mild less than 50% stenosis of both the right and left extracranial internal carotid arteries. Patent and antegrade flow was observed in the vertebral arteries bilaterally. He was admitted again to [facility] 11/22/2022 for complaint of slurred speech and weakness. Noncontrast CT brain revealed prior infarcts in the left frontotemporal area and also the right occipital area. No acute findings. He was placed on aspirin, Plavix and beta-erika and statin drug was continued. Teleneurology recommended dual antiplatelet therapy for 3 weeks then discontinue aspirin. CTA and MRI were advised. MRI showed right frontal and right temporal acute ischemic infarcts. CTA was not done but an echocardiogram that showed an EF of 65% with no wall motion abnormalities and bubble study negative. Both atria were of normal size. He was transferred to inpatient rehab on 11/24/2022. Most recent MRI brain from [facility] 11/22/2022 demonstrated acute infarct in the right parietal lobe and old left frontal temporal infarct. CT brain with and without contrast 01/05/2023 demonstrated encephalomalacia in the left temporoparietal and frontal lobes as well as right occipital lobe. Coagulation times were normal 11/22/2022. CBC from 07/27/2023 showed a white count of 8300. Hemoglobin 13.2 g/dL and a platelet count 321,000. MCV was 94.7. Per initial office consultation here: Denies palpitations and sensations of tachycardia. Denies dizziness and orthostasis. Has history of developmental delay since childhood. Lives in one-story house in [place]. Has steps to the basement. Has a friend close by who helps out. Not driving. Hematologic problem(s): Interim history: No complaints today. No neurologic change. PAST MEDICAL HISTORY No date: Diabetes mellit (more content not included)...[facility]08-19-2024 History of Present illness Narrative* Cruzito Hart DO - 09/25/2023 3:41 PM EDT Hematologic problem(s): 1) H/O RLE DVT. 2) IVC filter 2021. 3) Multiple strokes in differing vascular territories. 4) Elevated factor VIII:C; normal CRP. HPI: The patient is a 72-year-old male with a past medical history as outlined below. 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 He has underlying history of hypertension, diabetes mellitus, and diastolic heart failure. 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 He was diagnosed with left MCA infarct with petechial hemorrhage, transferred to [facility]. He also had left M1 occlusion. He underwent mechanical thrombectomy of his left MCA infarct by Dr. Mohamud. He also had an echocardiogram, which revealed ejection fraction of 45%. His hospital course was complicated by chronic diastolic heart failure as well as right popli teal deep vein thrombosis. With his recent thrombectomy, he is only anticoagulated for least 6 to 8weeks. He does have an inferior vena cava filter placed. 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 Functionally, heis requiring minimal assistance for his bed mobility and transfers, ambulates 40 feet with a wheeled walker, minimal assistance. He was now admitted to [facility] for poststroke inpatient rehabilitation therapies. IVC filter placed 04/20/2021. No procedure note indicating it was removed. 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 Left leg negative for acute DVT. Per Dr. Manley's most recent note, Patient with recurrent strokes over the past couple years, of which etiology is uncertain. He ahs multiple stroke risk factors including HTN, DM, HLD - uncertain towhat extent these risk factors are controlled. However, concerning that strokes have occurred in various vascular distributions and thus, possible central embolic source. Limited follow up with me (as above) and patient is limited historian as well, making it difficult to determine cause of symptoms. Non focal neuro exam at present. I reviewed prior records as best could be given limited records available for review. Repeat ECHOs have not shown cardiac source. HOWEVER, still need to consider possible paroxysmal afib, and thus will repeat Zio monitor. Will also get new imaging of both intra and extracranial large vessels to evaluate for stenosis or LVO with pt not having such imagining during last admit (per documentation that I reviewed. Also given multiple strokes as well as DVT, patientmay benefit from heme evaluation for clotting disorder. Will place consult. Was going to draw labs today but pt declined. Carotid arterial duplex ultrasound 04/2022 showed mild less than 50% stenosis of both the right and left extracranial internal carotid arteries. Patent and antegrade flow was observed in the vertebralarteries bilaterally. He was admitted again to [facility] 11/22/2022 for complaint of slurred speech and weakness. Noncontrast CT brain revealed prior infarcts in the left frontotemporal area and also the right occipital area. No acute findings. He was placed on aspirin, Plavix and beta-erika and statin drug was continued. Teleneurology recommended dual antiplatelet therapy for 3 weeks then discontinue aspirin. CTA and MRI were advised. MRI showed right frontal and right temporal acute ischemic infarcts. CTA was not done but an echocardiogram that showed an EF of 65% with no wall motion abnormalities and bubble study negative. Both atria were of normal size. He was transferred to inpatient rehab on 11/24/2022. Most recent MRI brain from [facility] 11/22/2022 demonstrated acute infarct in the right parietal lobe andold left frontal temporal infarct. CT brain with and without contrast 01/05/2023 demonstrated encephalomalacia in the left temporoparietal and frontal lobes as well as right occipital lobe. Coagulation times were normal 11/22/2022. CBC from 07/27/2023 showed a white count of 8300. Hemoglobin 13.2 g/dL and a platelet count 321,000.MCV was 94.7. Per initial office consultation here: Denies palpitations and sensations of tachycardia. Denies dizziness and orthostasis. Has history of developmental delay since childhood. Lives in one-story house in [place]. Has steps to the basement. Has a friend close by who helps out. Not driving. Hematologic problem(s): Interim history: No complaints today. No neurologic change. PAST MEDICAL HISTORY No date: Diabetes mellitus (HCC) No date: Diastolic heart failure (HCC) No date: DVT of lower extremity (deep venous thrombosis) (HCC) No date: Dysphagia No date: HTN (hypertension) No date: Primary cardiomyopathy (HCC) No date: Primary cardiomyopathy (HCC) No date: Shortness of breath No date: Stroke (cerebrum) ([facility]) PAST SURGICAL HISTORY 03/2021: IVC FILTER PLACEMENT 03/2021: PAST SURGICAL HISTORY OF Comment: Cerebral angiography and left MCA thrombectomy ALLERGIES No Known Allergies Current Outpatient Medications Medication Sig multivitamin tablet Take 1 tablet by mouth once daily. Ipratropium [place] (ATROVENT) 21 mcg (0.03 %) nasal spray Use 1 [place] in the nose three times a day as needed. SENNA-DOCUSATE SODIUM ORAL Take one tablet by mouth every other day as needed. clopidogrel (PLAVIX) 75 mg tablet Take 75 mg by mouth once daily. loratadine (CLARITIN) 10 mg tablet Take 10 mg by mouth once daily. pantoprazole DR (PROTONIX) 20 mg tablet Take 1 tablet by mouth once daily. metoprolol succinate ER (TOPROL XL) 25 mg 24 hr tablet TAKE 1 TABLET BY MOUTH EVERY DAY atorvastatin (LIPITOR) 40 mg tablet 1 TABLET BY ORAL/FEEDING TUBE ROUTE DAILY AT BEDTIME. (Patient taking differently: Take 40 mg by mouth daily at bedtime.) lisinopril 2.5 mg tablet Take 1 tablet by mouth once daily. metFORMIN (GLUCOPHAGE) 500 mg tablet Take 500 mg by mouth once daily. No current facility-administered medications for this visit. Social History Tobacco Use Smoking status: Never Smokeless tobacco: Never Vaping Use Vaping status: Never Used Substance Use Topics Alcohol use: Never Drug use: Never Family History Problem Relation Age of Onset Diabetes Father Three sisters--unknown if family h/o VTE. ROS: Constitutional: No fever. No drenching night sweats. Normal appetite. No unexplained weight loss. No significant fatigue. HEENT: No recent change in voice, vision or hearing. Resp: No cough, wheeze of hemoptysis. No shortness of breath at rest. No HAWK. CVS: GI: No dysgeusia. No symptoms of stomatitis. No dysphagia or odynophagia. No reflux, n/v, change inbowel habits. No abdominal pain, bloating or distension. No black or bloody stools. : No dysuria or gross hematuria. No symptoms of bladder outlet obstruction. Endo: No hot flashes. No polyuria or polydipsia. No heat or cold intolerance. Musculoskeletal: No bone, back, joint and muscular pain. Derm: No current rash. No history of jaundice. No diffuse pruritis. Heme: No unusual bleeding and unexplained bruising. Psych: Normal mood. PHYSICAL EXAM: Vitals: Blood pressure 114/75, pulse 83, temperature 36.8 C (98.3 F), temperature source Temporal, weight 83.2 kg (183 lb 8 oz), SpO2 98%. Well-appearing and in no acute distress. EYES: Sclerae are anicteric bilaterally. LYMPHATIC: There is no palpable cervical, supraclavicular, axillary adenopathy. RESPIRATORY: Inspiratory breath sounds are of normal intensity in all marrero. No rales, wheezes or rhonchi. Expiratory phase is normal. CARDIOVASCULAR: Rhythm is regular. No murmur. ABDOMEN: The abdomen is nondistended. No splenomegaly or hepatomegaly. No tenderness. Extremities: No swelling or edema. SKIN: No jaundice or rash. No petechiae. NEUROLOGIC: rewrite editor II-XII are grossly intact. ASSESSMENT/PLAN: (I63.9) Recurrent strokes (HCC) (primary encounter diagnosis) (I82.511) Chronic deep vein thrombosis (DVT) of femoral vein of right lower extremity (HCC) (Z95.828) Presence of IVC filter Assessment: -72 yo male with h/o multiple strokes. At least one occurred after IVC filter placed in 2021. No repeat duplex ultrasound of the legs when inpatient in the fall 2022 -Currently on Plavix. -Was not previously on anticoagulation when had original right lower extremity DVT secondary to need for fibrinolytic therapy. -No exam findings of postphlebitic syndrome. -Elevated factor VIII:C. -Multiple strokes in differing vascular territories -Discussed starting apixaban and stopping Plavix. Plan: -I will contact his BAKER PIE that sees him through the [facility] via [facility] to update her on medication recommendations (Dorinda THERESE WhiteN [phone] -Rx apixaban 5 mg BID. -Stop Plavix. -Okay to resume ASA for history of PVD (suggested by SYLVIE 12/2021). Portions of this documentation were copied and pasted from previous office visit notes in order to provide a cohesive continuity of the history. The note has been reviewed and edited and updated as necessary. I spent a total of 20 minutes on the date of the service which included preparing to see the patient, [id number] patient care, completing clinical documentation, obtaining and/or reviewing separately obtained history, performing a medically appropriate examination, counseling and educating the pat ient/family/caregiver, ordering medications, tests, or procedures, and communicating results to thepatient/family/caregiver. Cruzito Hart DO [facility] Telephone encounter Note * Telephone Encounter - Jessika Pratt OCCA - 09/20/2023 8:57 AM EDT Multiple attempts to reach patient by phone and MC message with no success. Sent letter to patientshome address to call office for below results and recommendations. TIFFANY Noland [facility]08-13-2024 Telephone encounter Note* Telephone Encounter - Celina Baldwin LPN - 09/19/2023 1:38 PM EDT TC to pt with no answer. Left VM to return call. Celina Baldwin LPN [facility]08-08-2024 Telephone encounter Note* Telephone Encounter - Rand Johansen LPN - 09/14/2023 6:32 PM EDT Phone call placed no answer, brief message left. [employer] logon 09/13/2023, message sent. Rand Johansen LPN [facility]08-08-2024 Telephone encounter Note* Telephone Encounter - Rand Johansen LPN - 09/14/2023 6:31 PM EDT ----- Message from Jese Manley Jr., MD sent at 09/14/2023 4:26 PM EDT ----- Pt reportedly had Vtach on monitor - no afib - would like pt to see cardiology. If pt not actively following with cardiology we can make appt. Please confirm with pt. Jese Manley MD [facility]08-07-2024 Telephone encounter Note* Telephone Encounter - Masha Pichardo - 09/13/2023 8:30 AM EDT Scheduled with patient [facility] Work Phone: 1(620) 911-117708-07-2024 Miscellaneous Notes* Telephone Encounter - Fabian CharlesMasha - 09/13/2023 8:30 AM EDT Scheduled with patient * Telephone Encounter - Cruzito Hart DO - 09/12/2023 5:26 PM EDT I would like him to have repeat lab work filed under this encounter then office visit with me sometime in the next couple weeks. Cruzito Hart DO documented in this encounterK[facility]08-06-2024 Telephone encounter Note * Telephone Encounter - Cruzito Hart DO - 09/12/2023 5:26 PM EDT I would like him to have repeat lab work filed under this encounter then office visit with me sometime in the next couple weeks. Cruzito Hart DO [facility]08-05-2024 Telephone encounter Note* Telephone Encounter - Jessika Pratt OCCA - 09/11/2023 1:18 PM EDT Images from the original note were not included. Estefani Dill, ROULA.QA ANALYST You6 days ago Do not see any information in notes regarding driving. Do see that Dr. Manley mentioned -Patient needs family or others who know med history to attend visits with patient to help with history and atthis time would recommend waiting until follow up appointment to confirm with Dr. Manley that it is safe to again ride (he may need additional info from family?). TC to patient who verbalized understanding of below and will wait to resume driving until after follow up appointment in October. Encouraged patient to bring family member to appointment if possible to assist with hx. TIFFANY Noland [facility]08-05-2024 Miscellaneous Notes* Telephone Encounter - Jessika Pratt OCCA - 09/11/2023 1:18 PM EDT Images from the original note were not included. Estefani Dill, ROULA.QA ANALYST You6 days ago Do not see any information in notes regarding driving. Do see that Dr. Manley mentioned -Patient needs family or others who know med history to attend visits with patient to help with history and atthis time would recommend waiting until follow up appointment to confirm with Dr. Manley that it is safe to again ride (he may need additional info from family?). TC to patient who verbalized understanding of below and will wait to resume driving until after follow up appointment in October. Encouraged patient to bring family member to appointment if possible to assist with hx. TIFFANY Noland * Telephone Encounter - Jessika Pratt OCCA - 09/05/2023 2:06 PM EDT Patient had MRA completed 08/20. Of note patient has follow up 10/19. TIFFANY Noland * Telephone Encounter - Armida Smith LPN - 09/05/2023 2:01 PM EDT Pt is calling to ask if he can ride his motorcycle again. Pt reports he had some testing done and it was supposed to show if he can ride his motorcycle again or not. Please review and advise. Armida Smith LPN documented in this encounterK[facility]07-30-2024 Telephone encounter Note * Telephone Encounter - Jessika Pratt OCCA - 09/05/2023 2:06 PM EDT Patient had MRA completed 08/20. Of note patient has follow up 10/19. TIFFANY Noland [facility]07-30-2024 Telephone encounter Note* Telephone Encounter - Armida Smith LPN - 09/05/2023 2:01 PM EDT Pt is calling to ask if he can ride his motorcycle again. Pt reports he had some testing done and it was supposed to show if he can ride his motorcycle again or not. Please review and advise. Armida Smith LPN [facility]07-15-2024 History of Present illness Narrative* Dania Koenig RT(R) - 08/21/2023 2:20 PM EDT Radiology Service Progress Note PATIENT NAME: Gustavo Patton DATE OF SERVICE: August 21, 2023 TIME: 2:29 PM PATIENT IDENTITY VERIFICATION COMPLETED USING TWO (2) IDENTIFIERS: Name and Date of confirmedby patient verbally. FALL SCREENING: Has the patient had 2 falls in the last year or 1 fall with injury or currently using an Ambulatory Assistive Device (Walker, Cane, Wheelchair, Crutches, etc.)? No PATIENT GENDER DATA: Male PATIENT RELEVANT IMPLANT DATA REVIEWED: Yes PATIENT PRESENTS WITH AN IMPLANTABLE OR ATTACHED EXECUTIVE PILOT: No RADIOLOGY DEPARTMENT: MR; Exam(s) Completed: Head: [place] MRA Neck: Carotids MRA, bilateral PERIPHERAL IV DATA: Not applicable SIGNED BY: RT Kymberly(R) August 21, 2023 2:29 PM documented in this encounterK[facility]07-11-2024 Telephone encounter Note * Telephone Encounter - Rand Johansen LPN - 08/17/2023 10:26 AM EDT New Zio Rx ordered by Dr. Manley on 08/17/2023 at 9:00 AM, no further action. Rand Johansen LPN [facility]07-11-2024 Miscellaneous Notes* Telephone Encounter - Rand Johansen LPN - 08/17/2023 10:26 AM EDT New Zio Rx ordered by Dr. Manley on 08/17/2023 at 9:00 AM, no further action. Rand Johansen LPN * Telephone Encounter - Zhanna Wynne MA - 08/17/2023 8:23 AM EDT Received notification from [employer] (car supervisor for Zio device): We have found that a Zio device has been lost in transit to the patient, this was due to an incorrect shipping address. We have verified with the patient the correct shipping address for mailing. If you would like us to order a replacement please advise, otherwise please submit a new order via your integrated EHR system. Confirmed with company new order now needs placed. Please file new Zio order so a replacement can be shipped to the correct address. (Nothing needs done once order is signed in [facility], it will automatically generate on the car supervisor end to send new device to patient.) Zhanna Wynne MA documented in this encounterK[facility]07-11-2024 Telephone encounter Note * Telephone Encounter - Zhanna Wynne MA - 08/17/2023 8:23 AM EDT Received notification from [employer] (car supervisor for Zio device): We have found that a Zio device has been lost in transit to the patient, this was due to an incorrect shipping address. We have verified with the patient the correct shipping address for mailing. If you would like us to order a replacement please advise, otherwise please submit a new order via your integrated EHR system. Confirmed with company new order now needs placed. Please file new Zio order so a replacement can be shipped to the correct address. (Nothing needs done once order is signed in [employer], it will automatically generate on the car supervisor end to send new device to patient.) Zhanna Wynne MA [facility]07-01-2024 Telephone encounter Note* Telephone Encounter - Nano Martines - 08/07/2023 2:50 PM EDT Spoke with patient and scheduled. Nano Martines [facility]07-01-2024 Miscellaneous Notes* Telephone Encounter - Nano Martines - 08/07/2023 2:50 PM EDT Spoke with patient and scheduled. Nano Martines * Telephone Encounter - Fallon Amaya LPN - 08/07/2023 12:41 PM EDT PSS- This may have to be scheduled with lab and a aircraft machinist helper in the morning. Please contact patient toschedule. Fallon Amaya LPN * Telephone Encounter - Cruzito Hart DO - 08/07/2023 12:30 PM EDT Please advise him to come back for lab work ordered under today's office visit whenever he has a chance. Cruzito Hart DO documented in this encounterK[facility]07-01-2024 Telephone encounter Note * Telephone Encounter - Fallon Amaya LPN - 08/07/2023 12:41 PM EDT PSS- This may have to be scheduled with lab and a aircraft machinist helper in the morning. Please contact patient toschedule. Fallon Amaya LPN [facility]07-01-2024 Telephone encounter Note* Telephone Encounter - Cruzito Hart DO - 08/07/2023 12:30 PM EDT Please advise him to come back for lab work ordered under today's office visit whenever he has a chance. Cruzito Hart DO [facility] Work Phone: 1(579) 971-935507-01-2024 History of Present illness Narrative* Cruzito Hart DO - 08/07/2023 11:19 AM EDT Portions of this documentation were copied and pasted from previous office visit notes in order to provide a cohesive continuity of the history. The note has been reviewed and edited and updated as necessary. HPI: The patient is a 72-year-old male with a past medical history as outlined below. 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 He has underlying history of hypertension, diabetes mellitus, and diastolic heart failure. 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 He was diagnosed with left MCA infarct with petechial hemorrhage, transferred to [facility]. He also had left M1 occlusion. He underwent mechanical thrombectomy of his left MCA infarct by Dr. Mohamud. He also had an echocardiogram, which revealed ejection fraction of 45%. His hospital course was complicated by chronic diastolic heart failure as well as right popli teal deep vein thrombosis. With his recent thrombectomy, he is only anticoagulated for least 6 to 8weeks. He does have an inferior vena cava filter placed. 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 Functionally, heis requiring minimal assistance for his bed mobility and transfers, ambulates 40 feet with a wheeled walker, minimal assistance. He was now admitted to [facility] for poststroke inpatient rehabilitation therapies. IVC filter placed 04/20/2021. No procedure note indicating it was removed. 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 Left leg negative for acute DVT. Per Dr. Manley's most recent note, Patient with recurrent strokes over the past couple years, of which etiology is uncertain. He ahs multiple stroke risk factors including HTN, DM, HLD - uncertain towhat extent these risk factors are controlled. However, concerning that strokes have occurred in various vascular distributions and thus, possible central embolic source. Limited follow up with me (as above) and patient is limited historian as well, making it difficult to determine cause of symptoms. Non focal neuro exam at present. I reviewed prior records as best could be given limited records available for review. Repeat ECHOs have not shown cardiac source. HOWEVER, still need to consider possible paroxysmal afib, and thus will repeat Zio monitor. Will also get new imaging of both intra and extracranial large vessels to evaluate for stenosis or LVO with pt not having such imagining during last admit (per documentation that I reviewed. Also given multiple strokes as well as DVT, patientmay benefit from heme evaluation for clotting disorder. Will place consult. Was going to draw labs today but pt declined. Carotid arterial duplex ultrasound 04/2022 showed mild less than 50% stenosis of both the right and left extracranial internal carotid arteries. Patent and antegrade flow was observed in the vertebralarteries bilaterally. He was admitted again to [facility] 11/22/2022 for complaint of slurred speech and weakness. Noncontrast CT brain revealed prior infarcts in the left frontotemporal area and also the right occipital area. No acute findings. He was placed on aspirin, Plavix and beta-erika and statin drug was continued. Teleneurology recommended dual antiplatelet therapy for 3 weeks then discontinue aspirin. CTA and MRI were advised. MRI showed right frontal and right temporal acute ischemic infarcts. CTA was not done but an echocardiogram that showed an EF of 65% with no wall motion abnormalities and bubble study negative. Both atria were of normal size. He was transferred to inpatient rehab on 11/24/2022. Most recent MRI brain from [facility] 11/22/2022 demonstrated acute infarct in the right parietal lobe andold left frontal temporal infarct. CT brain with and without contrast 01/05/2023 demonstrated encephalomalacia in the left temporoparietal and frontal lobes as well as right occipital lobe. Coagulation times were normal 11/22/2022. CBC from 07/27/2023 showed a white count of 8300. Hemoglobin 13.2 g/dL and a platelet count 321,000.MCV was 94.7. Denies palpitations and sensations of tachycardia. Denies dizziness and orthostasis. Has history of developmental delay since childhood. Lives in one-story house in [place]. Has steps to the basement. Has a friend close by who helps out. Not driving. PAST MEDICAL HISTORY Diagnosis Date Diabetes mellitus (HCC) Diastolic heart failure (HCC) DVT of lower extremity (deep venous thrombosis) (HCC) Dysphagia HTN (hypertension) Primary cardiomyopathy (HCC) Primary cardiomyopathy (HCC) Shortness of breath Stroke (cerebrum) ([facility]) PAST SURGICAL HISTORY Procedure Laterality Date IVC FILTER PLACEMENT 03/2021 PAST SURGICAL HISTORY OF 03/2021 Cerebral angiography and left MCA thrombectomy ALLERGIES No Known Allergies Current Outpatient Medications Medication Sig multivitamin tablet Take 1 tablet by mouth once daily. Ipratropium [place] (ATROVENT) 21 mcg (0.03 %) nasal spray Use 1 [place] in the nose three times a day as needed. SENNA-DOCUSATE SODIUM ORAL Take one tablet by mouth every other day as needed. clopidogrel (PLAVIX) 75 mg tablet Take 75 mg by mouth once daily. loratadine (CLARITIN) 10 mg tablet Take 10 mg by mouth once daily. pantoprazole DR (PROTONIX) 20 mg tablet Take 1 tablet by mouth once daily. metoprolol succinate ER (TOPROL XL) 25 mg 24 hr tablet TAKE 1 TABLET BY MOUTH EVERY DAY atorvastatin (LIPITOR) 40 mg tablet 1 TABLET BY ORAL/FEEDING TUBE ROUTE DAILY AT BEDTIME. lisinopril 2.5 mg tablet Take 1 tablet by mouth once daily. metFORMIN (GLUCOPHAGE) 500 mg tablet Take 500 mg by mouth once daily. No current facility-administered medications for this visit. Social History Tobacco Use Smoking status: Never Smokeless tobacco: Never Substance Use Topics Alcohol use: Never Drug use: Never Family History Problem Relation Age of Onset Diabetes Father Three sisters--unknown if family h/o VTE. ROS: Constitutional: No fever. No drenching night sweats. Normal appetite. No unexplained weight loss. No significant fatigue. HEENT: No recent change in voice, vision or hearing. Resp: No cough, wheeze of hemoptysis. No shortness of breath at rest. No HAWK. CVS: GI: No dysgeusia. No symptoms of stomatitis. No dysphagia or odynophagia. No reflux, n/v, change inbowel habits. No abdominal pain, bloating or distension. No black or bloody stools. : No dysuria or gross hematuria. No symptoms of bladder outlet obstruction. Endo: No hot flashes. No polyuria or polydipsia. No heat or cold intolerance. Musculoskeletal: No bone, back, joint and muscular pain. Derm: No current rash. No history of jaundice. No diffuse pruritis. Heme: No unusual bleeding and unexplained bruising. Psych: Normal mood. PHYSICAL EXAM: Vitals: Blood pressure 112/76, pulse 90, temperature 36.4 C (97.6 F), temperature source Temporal, height 175.9 cm (5' 9.25), weight 80.3 kg (177 lb), SpO2 98%. Well-appearing and in no acute distress. EYES: Sclerae are anicteric bilaterally. LYMPHATIC: There is no palpable cervical, supraclavicular, axillary adenopathy. RESPIRATORY: Inspiratory breath sounds are of normal intensity in all marrero. No rales, wheezes or rhonchi. Expiratory phase is normal. CARDIOVASCULAR: Rhythm is regular. No murmur. ABDOMEN: The abdomen is nondistended. No splenomegaly or hepatomegaly. No tenderness. Extremities: No swelling or edema. SKIN: No jaundice or rash. No petechiae. NEUROLOGIC: rewrite editor II-XII are grossly intact. ASSESSMENT/PLAN: (I63.9) Recurrent strokes (HCC) (primary encounter diagnosis) (I82.511) Chronic deep vein thrombosis (DVT) of femoral vein of right lower extremity (HCC) (Z95.828) Presence of IVC filter Assessment: -72 yo male with h/o multiple strokes. At least one occurred after IVC filter placed in 2021. No repeat duplex ultrasound of the legs when inpatient in the fall 2022 -Currently on Plavix. -Was not previously on anticoagulation when had original right lower extremity DVT secondary to fibrinolytic therapy. -No exam findings of postphlebitic syndrome. -Suspect cardioembolic source. Agree with ZIO monitoring. Plan: -Given findings thus far, reasonable to assess for hypercoagulable condition as anticoagulation would be indicated for a hypercoagulable condition and/or atrial fibrillation if found on ambulatory monitoring. I spent a total of 45 minutes on the date of the service which included preparing to see the patient, [id number] patient care, completing clinical documentation, obtaining and/or reviewing separately obtained history, performing a medically appropriate examination, counseling and educating the pat ient/family/caregiver, ordering medications, tests, or procedures, communicating with other HCPs (not separately reported), and communicating results to the patient/family/caregiver. Cruzito Hart DO documented in this encounterK[facility]06-18-[facility]24 Telephone encounter Note * Telephone Encounter - Magda Seymour RN - 07/25/2023 8:47 AM EDT Dorinda with [facility] calls to request a copy of OV note from 07/17/2023 to assist patient with education. Faxed to [phone] per request. Magda Seymour RN [facility]06-18-2024 Miscellaneous Notes* Telephone Encounter - Magda Seymour RN - 07/25/2023 8:47 AM EDT Dorinda with [facility] calls to request a copy of OV note from 07/17/2023 to assist patient with education. Faxed to [phone] per request. Magda Seymour RN documented in this encounterK[facility]06-11-2024 Telephone encounter Note * Telephone Encounter - Teena Perez - 07/18/2023 2:37 PM EDT Called patient and scheduled first available. Teena Monsalve [facility]06-11-2024 Miscellaneous Notes* Telephone Encounter - Teena Perez - 07/18/2023 2:37 PM EDT Called patient and scheduled first available. Teena Monsalve * Telephone Encounter - Cruzito Hart DO - 07/18/2023 1:22 PM EDT I don't think Dr. Manley is aware that Dr. Ron is here. Next new patient appointment time with either me or Dr. Ron. Cruzito Hart DO * Telephone Encounter - Cheryle Bates - 07/18/2023 9:06 AM EDT Patient is being referred to Dr. Hart DX: eval for possible hypercoag disorder Insurance: Medicare A and B/ [facility] AARP Supplement Referred by: Jese Manley Jr Please review and advise documented in this encounterK[facility]06-11-2024 Telephone encounter Note * Telephone Encounter - Cruzito Hart DO - 07/18/2023 1:22 PM EDT I don't think Dr. Manley is aware that Dr. Ron is here. Next new patient appointment time with either me or Dr. Ron. Cruzito Hart DO [facility] Work Phone: 1(772) 933-213406-11-2024 Telephone encounter Note* Telephone Encounter - Cheryle Bates - 07/18/2023 9:06 AM EDT Patient is being referred to Dr. Hart DX: eval for possible hypercoag disorder Insurance: Medicare A and B/ [facility] AARP Supplement Referred by: Jese Manley Jr Please review and advise [facility]06-10-[facility]24 History of Present illness Narrative* Jese Manley Jr., MD - 07/17/2023 2:30 PM EDT ESTABLISHED PATIENT VISIT CHIEF COMPLAINT: Follow up HISTORY OF PRESENT ILLNESS: Gustavo Patton is a 72 year old male, BMI 26.09 kg/m2 with a PMH significant for and per last office visit of 12/17/2021 with me: 1. 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 More recentnotes now suggest TNK complicated - hemorrhage. Workup reviewed as above. Note in setting of DVT (Rpop) with concern that limited ECHO while in hospital may have missed PFO. Also note, no Afib on Zio. Discussed with pt and will repeat ECHO with bubble with consideration for ARCENIO (again looking for PFO). In addition, will repeat CT scan to confirm no other changes given lack of appropriate follow up as well as confirm safety in case OAC needed. For now continue ASA, statin. BP goal <140/90. Glucose goal <140. Pt and family educated on stroke including cause, physiology, treatment, and prognosis. They all agree with workup plan. Pt wanting to drive. Uncertain able to do so safely given language deficits, but will refer to PT DRIVING EVAL for further assessment and recs. 3. Deep vein thrombosis (DVT) of popliteal vein of right lower extremity, unspecified chronicity (HCC) - ICD9: 453.41, ICD10: I82.431 Pt with DVT as above. IVC placed. Was supposed to start on OAC 8 weeks after stroke. Again no follow up. Not scheduled for vascular until 2022. Will get repeat lower ext dopplers to determine extent of clot at this time and need for OAC or sooner eval. Last saw Jackeline Steiner SARAHI on 04/18/23: 1. Cerebrovascular accident (CVA), unspecified mechanism (HCC) - ICD9: 434.91, ICD10: I63.9 (primary diagnosis) 2. Left arm weakness - ICD9: 729.89, ICD10: R29.898 3. Cognitive developmental delay - ICD9: 315.9, ICD10: F81.9 Patient presents alone for follow-up appointment. However, history is extremely limited due to patient's cognitive delay from . Previous appointments patient known to the family. On arrival, patient did have a slip of paper that said he had a stroke in November, did look at records at [facility] at that time. These records are limited, does show that patient had new onset leftparietal stroke, was on dual antiplatelet therapy for 3 weeks and was instructed to continue Plavixas he was on aspirin before. On his medication list he does have Plavix listed but patient is unsure of any medications he takes by name. Does not appear they found a source of stroke, patient does follow with cardiology, Dr. Dill, and patient states he did follow-up with this provider in March. Does not believe anything was changed. Will have office reach out to Dr. Dill's office to get records. This was patient's second stroke, previous stroke with unknown cause. Patient did have a DVT at that time but no PFO was found on echo. Patient was following with vascular at that time. Patient cannot provide me any information regarding this. At this time, will further obtain records to see if any further testing is needed including Zio monitor. However, no changes will be made today as history and records are limited. Encourage patient to continue with Plavix. Patient does have some mild weakness on the left upper extremity patient states he did complete physical therapy after the hospital. Did send in referral for this to be continued as patient still experiencing some weakness on exam. Encouraged stroke mention instructions were given along with following up with primary care for monitoring of blood pressure, blood sugar, cholesterol. Patient agrees and understands. Unfortunately, MoCA was unable to be obtained today due to time constraints. Gustavo states he has stayed out of the hospital. Despite med list, pt states he is not on ASA and only taking Plavix daily. Denies any new focal neuro deficits. No new focal weakness. States he has been in PT. States he was cleared for driving by PT/OT - I do not have those records. No numbness. No vision changes. No speech changes. No headaches. No LOC. BPs have been stable and consistently <140/90. Pt states not on medications for DM. I do not have recent glucose levels from PCP office. Last Hgb A1c was 14.4 in 03/2021 that we have access to at time of this appt. Since I last saw patient had second stroke. Per record: On 11-22-2022, patient presented to [facility] emergency department with power of litigation attorney for concerns of worsening weakness starting the day before. Notes that he dropped his coffeemug and did not go to work. That day, he began experiencing some slurred speech. Did have history of stroke in the past with no residual effects, was on aspirin at time. MRI of the brain showed acuteinfarct in the right parietal lobe and old left frontal temporal infarct. There is no documentationmeeting dual antiplatelet therapy or further workup at that time as records are limited. Will have admission records sent over. Hospital records from 11/2022 reviewed and while MRI completed showing R frontal and R temp acute strokes, ECHO completed showing no PFO and EF of 65% and no clot, but no CTA head and neck performed and does not appear was placed on heart monitor. Pt had repeat MRI brain in 12/2022 for unclear reason but per record no acute changes. REVIEW OF SYSTEMS GENERAL:No weight loss, malaise or fevers. HEENT:Negative for frequent or significant headaches, No changes in hearing or vision, no nose bleeds or other nasal problems NECK:Negative for lumps, goiter, pain and significant neck swelling RESPIRATORY: Negative for cough, wheezing or shortness of breath. CARDIOVASCULAR: Negative for chest pain, leg swelling or palpitations. GASTROINTESTINAL: Negative for abdominal discomfort, blood in stools or black stools or change in bowel habits GENITOURINARY: No history of dysuria, frequency or incontinence MUSCULOSKELETAL: Negative for joint pain or swelling, back pain or muscle pain. NEUROLOGIC:Negative for focal numbness or weakness, headaches and dizziness or syncope, vision changes, speech/languag changes - EXCEPT that as per HPI above. SKIN:Negative for lesions, rash, and itching. LAB/IMAGING: Those performed since patient's last visit have been reviewed. WBC (k/uL) Date Value 04/15/2021 8.65 RBC (m/uL) Date Value 04/15/2021 4.87 Hemoglobin (g/dL) Date Value 04/15/2021 14.7 Hematocrit (%) Date Value 04/15/2021 43.8 MCV (fL) Date Value 04/15/2021 89.9 MCH (pg) Date Value 04/15/2021 30.2 MCHC (g/dL) Date Value 04/15/2021 33.6 RDW-CV (%) Date Value 04/15/2021 12.3 Platelet Count (k/uL) Date Value 04/15/2021 301 MPV (fL) Date Value 04/15/2021 12.2 Glucose (mg/dL) Date Value 04/15/2021 117 (H) BUN (mg/dL) Date Value 04/15/2021 25 (H) Creatinine (mg/dL) Date Value 04/15/2021 1.07 Sodium (mmol/L) Date Value 04/15/2021 137 Potassium (mmol/L) Date Value 04/15/2021 4.5 Chloride (mmol/L) Date Value 04/15/2021 100 CO2 (mmol/L) Date Value 04/15/2021 26 Protein, Total (g/dL) Date Value 04/15/2021 7.3 Albumin (g/dL) Date Value 04/15/2021 4.0 Calcium, Total (mg/dL) Date Value 04/15/2021 9.6 Alkaline Phosphatase (U/L) Date Value 04/15/2021 96 Bilirubin, Total (mg/dL) Date Value 04/15/2021 0.5 AST (U/L) Date Value 04/15/2021 22 ALT (U/L) Date Value 04/15/2021 21 Current Outpatient Medications Medication Sig Dispense Refill SENNA-DOCUSATE SODIUM ORAL Take by mouth. clopidogrel (PLAVIX) 75 mg tablet loratadine (CLARITIN) 10 mg tablet Take by mouth. pantoprazole DR (PROTONIX) 20 mg tablet Take 1 tablet by mouth every afternoon. metoprolol succinate ER (TOPROL XL) 25 mg 24 hr tablet TAKE 1 TABLET BY MOUTH EVERY DAY 30 tablet 1 atorvastatin (LIPITOR) 40 mg tablet 1 TABLET BY ORAL/FEEDING TUBE ROUTE DAILY AT BEDTIME. 90 tablet3 lisinopril 2.5 mg tablet Take 1 tablet by mouth once daily. 90 tablet 3 metFORMIN (GLUCOPHAGE) 500 mg tablet TAKE 1 TAB TWICE DAILY FOR 2 WEEKS, THEN TAKE 2 TABS TWICE DAILY No current facility-administered medications for this visit. HISTORIES PAST MEDICAL HISTORY Diagnosis Date Diabetes mellitus (HCC) Diastolic heart failure (HCC) DVT of lower extremity (deep venous thrombosis) (HCC) Dysphagia HTN (hypertension) Primary cardiomyopathy (HCC) Primary cardiomyopathy (HCC) Shortness of breath Stroke (cerebrum) (HCC) FAMILY HISTORY Problem Relation Age of Onset Diabetes Father SOCIAL HISTORY Social History Tobacco Use Smoking status: Never Smokeless tobacco: Never Substance Use Topics Alcohol use: Never Drug use: Never PHYSICAL EXAMINATION BP 120/76 Pulse 84 Resp 16 Wt 82.5 kg (181 lb 12.8 oz) SpO2 96% BMI 26.09 kg/m GENERAL EXAM: General appearance: NAD, pleasant. HEENT: NC/AT, nasal congestion absent, no oral lesions, membranes moist. NECK: ROM nml. Lungs: CTA bilaterally. CV: RRR nl S1, S2. Extr: No cyanosis, clubbing or edema. Skin: Cool to touch. NEUROLOGICAL EXAM: General: Awake, alert, oriented x3 (person,place,time), fluent, no dysarthria; comprehension, naming, repetition intact. CN: PERRL, EOMI and without nystagmus, VFF to confrontation, facial sensation and strength are normal and symmetric, hearing is intact to finger rub bilaterally, palate and tongue movements are intact and symmetric. SCM and trapezius strength normal. Motor: Normal tone, bulk and strength (5/5) bilaterally (throughout extremities x4). Coordination: FNF, ALEKSANDR, HTS intact. No tremors. Sensation: LT intact throughout. No evidence of neglect. Gait: Stable with normal stride and arm swing. Assessment and Plan: ASSESSMENT/PLAN: 1. Recurrent strokes (HCC) - ICD9: 434.91, ICD10: I63.9 (primary diagnosis) Patient with recurrent strokes over the past couple years, of which etiology is uncertain. He ahs multiple stroke risk factors including HTN, DM, HLD - uncertain to what extent these risk factors arecontrolled. However, concerning that strokes have occurred in various vascular distributions and thus, possible central embolic source. Limited follow up with me (as above) and patient is limited historian as well, making it difficult to determine cause of symptoms. Non focal neuro exam at present.I reviewed prior records as best could be given limited records available for review. Repeat ECHOs have not shown cardiac source. HOWEVER, still need to consider possible paroxysmal afib, and thus will repeat Zio monitor. Will also get new imaging of both intra and extracranial large vessels to evaluate for stenosis or LVO with pt not having such imagining during last admit (per documentation that I reviewed. Also given multiple strokes as well as DVT, patient may benefit from heme evaluation for clotting disorder. Will place consult. Was going to draw labs today but pt declined. In addition: -Continue Plavix 75mg daily. -Continue statin with PCP follow up - goal LDL <70. -BP goal <140/90. -Glucose goal <140. -MRA head and neck to evaluate for large vessel disease. -Zio monitor as above. -Need most updated PCP and cards notes and will request. -Follow up after completion of testing above. -Patient needs family or others who know med history to attend visits with patient to help with history. Jese Manley MD I spent a total of 36 minutes on the date of the service which included preparing to see the patient, [id number] patient care, completing clinical documentation, obtaining and/or reviewing separately obtained history, performing a medically appropriate examination, counseling and educating the pat ient/family/caregiver, ordering medications, tests, or procedures, and communicating results to thepatient/family/caregiver. * Rand Johansen LPN - 07/17/2023 1:57 PM EDT documented in this encounterKettering Health [facility]04-12-2024 NoteHNO ID: [id number] Author: CATHLEEN GOEL OT/L Service: ? Author Type: Occupational Therapist Type: Progress Notes Filed: 05/24/2023 16:33 Note Text: Episode Visit Count: 2 Therapist That Will Accept/Oversee The Plan Of Care: Emery Boyd Start of Care Date: 05/04/23 Onset Date: 04/01/21 (had initial L CVA while he indicated having another one this past November, while this therapist has minimal other details) Plan of Care Certification Date: 05/04/23 REHABILITATION AND SPORTS THERAPY OCCUPATIONAL THERAPY ON-ROAD DRIVING ASSESSMENT SUBJECTIVE: Gustavo verbalized no complaints and was looking forward to driving again. OBJECTIVE MEASURES WITH LEVEL OF FUNCTION: This therapist traveled to patient's home where the drive started and ended. He drove [place] for the assessment. Route was discussed prior to the drive and he indicated he would drive into [place] then onto the highway prior to going back to his house as these are roads he might travel on frequently. ENVIRONMENT: Location: Residential, Urban, Interstate, Rural, Parking Lot, and Multi-[address] Traffic: Light and Moderate Weather: Wet while light rain at times during the drive Road Conditions: Wet Mileage driven: 24.2 miles MODIFICATIONS: Steering Device: NA Turn Signal: Standard Hand Controls: NA Mirrors: Standard Cushions: None PHYSICAL PERFORMANCE: Use of Controls: No Deficits noted Physical Limitations: None OBSERVATION SKILLS: No deficits noted in this area. GAP ACCEPTANCE: No deficits noted in this area ANABELLA CHANGING/MERGING: No deficits noted in this area LIMIT LINE/STOPPING: No deficits noted in this area. REGULATION OF SPEED: No deficits noted in this area. PATH OF TRAVEL: No deficits noted in this area SIGNALING: Consistently signaled. PARKING: satisfactory GENERAL AWARENESS: He demonstrated consistent use of defensive techniques throughout the drive while no suggestions for improvements needed. He did verbalize being aware that the vehicle seemed to be pulling to the right which he felt he needed to fight against during the drive while did not appear to be an issue with his performance. TREATMENT: On Road Driving Assessment: completed behind the wheel assessment by this OT/L, CDRS, LDI ASSESSMENT: Gustavo Patton tolerated today's treatment visit well. He demonstrated functional performance as this report indicates. 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 Due to the complex nature of the safe operation of a motor vehicle, and considering the demands of integrating changing environmental conditions, and visual, cognitive, and physical skills, successful completion of this program is not a guarantee of safe driving in the future. RECOMMENDATION: BASED ON GUSTAVO'S OVERALL PERFORMANCE ON THIS ASSESSMENT, THIS THERAPIST FEELS CONFIDENT IN RECOMMENDING THAT HE IS ABLE TO RETURN TO SAFE AND INDEPENDENT OPERATION OF PERSONAL MOTOR VEHICLE WHILE FOLLOWING THESE RESTRICTIONS: AVOID NIGHT DRIVING AND LOW VISIBILITY CONDITIONS; LONG DISTANCE DRIVING SHOULD BE DONE WITH OTHER LICENSED CHEF ASSISTANT WITH HIM TO SHARE THE DRIVING GIVEN HIS MEDICAL HISTORY; DO NOT DRIVE WHEN NOT FEELING WELL; AVOID DRIVING WHEN EXTREME WEATHER CONDITIONS. This therapist did call his sister, Renate, who is his DPOA after the session to share results with her. Billing: Total Treatment Time Minutes (timed/untimed) 60 Drivers Follow Up per 60 min (12483): 1:1 time 60 min Total time: 60 minutes Cathleen Goel OT/[place], CDRS, LDI Certified Sawmill Worker Epic [employer]id Analyst Episode Visit Count: 2 Therapist That Will Accept/Oversee The Plan Of Care: Emery Goel Start of Care Date: 05/04/23 Onset Date: 04/01/21 (had initial L CVA while he indicated having another one this past November, while this therapist has minimal other details) Plan of Care Certification Date: 05/04/23 REHABILITATION AND SPORTS THERAPY OCCUPATIONAL THERAPY DISCONTINUANCE OF CARE PLAN OF CARE UPDATE: Assessment: Gustavo Patton is discontinued from Occupational Therapy services due to goals met and no further skilled OT services indicated . Patient was seen for 2 visits from Start of Care Date: 05/04/23 to 05/19/2023 and treatment included: Sawmill Worker rehab evaluation. Goals for Episode of Care created on 05/04/23 through 06/04/23 1.Patient will complete clinical training and/or testing at [place] level in preparation for returning to driving. 2.Patient will complete functional mobility task with good safety awareness during behind the wheel assessment PROMIS Scales 05/04/2023 Higher is Better Phys Func - Score 76 (within normal limits) Phys Func - Percentile 100 Self-Eff Symptom - Score 27 (Very Low) Self-Eff Symptom - Percentile 1 T-scores: mean of gene (more content not included)...[facility] 05-19-2023 History of Present illness Narrative* Cathleen Goel OT/Marixa - 05/19/2023 3:32 PM EDT Episode Visit Count: 2 Therapist That Will Accept/Oversee The Plan Of Care: Emery Goel Start of Care Date: 05/04/23 Onset Date: 04/01/21 (had initial L CVA while he indicated having another one this past November, while this therapist has minimal other details) Plan of Care Certification Date: 05/04/23 REHABILITATION AND SPORTS THERAPY OCCUPATIONAL THERAPY ON-ROAD DRIVING ASSESSMENT SUBJECTIVE: Gustavo verbalized no complaints and was looking forward to driving again. OBJECTIVE MEASURES WITH LEVEL OF FUNCTION: This therapist traveled to patient's home where the drive started and ended. He drove [place] for the assessment. Route was discussed prior to thedrive and he indicated he would drive into [place] then onto the highway prior to going back [place] as these are roads he might travel on frequently. ENVIRONMENT: Location: Residential, Urban, Interstate, Rural, Parking Lot, and Multi-[address] Traffic: Light and Moderate Weather: Wet while light rain at times during the drive Road Conditions: Wet Mileage driven: 24.2 miles MODIFICATIONS: Steering Device: NA Turn Signal: Standard Hand Controls: NA Mirrors: Standard Cushions: None PHYSICAL PERFORMANCE: Use of Controls: No Deficits noted Physical Limitations: None OBSERVATION SKILLS: No deficits noted in this area. GAP ACCEPTANCE: No deficits noted in this area ANABELLA CHANGING/MERGING: No deficits noted in this area LIMIT LINE/STOPPING: No deficits noted in this area. REGULATION OF SPEED: No deficits noted in this area. PATH OF TRAVEL: No deficits noted in this area SIGNALING: Consistently signaled. PARKING: satisfactory GENERAL AWARENESS: He demonstrated consistent use of defensive techniques throughout the drive while no suggestions for improvements needed. He did verbalize being aware that the vehicle seemed to bepulling to the right which he felt he needed to fight against during the drive while did not appearto be an issue with his performance. TREATMENT: On Road Driving Assessment: completed behind the wheel assessment by this OT/L, CDRS, LDI ASSESSMENT: Gustavo Patton tolerated today's treatment visit well. He demonstrated functional performance as this report indicates. 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 Due to the complex nature of the safe operation of a motor vehicle, and considering the demands of integrating changing environmental conditions, and visual, cognitive, and physical skills, successful completion of this program is not a guarantee of safe driving in the future. RECOMMENDATION: BASED ON GUSTAVO'S OVERALL PERFORMANCE ON THIS ASSESSMENT, THIS THERAPIST FEELS CONFIDENT IN RECOMMENDING THAT HE IS ABLE TO RETURN TO SAFE AND INDEPENDENT OPERATION OF PERSONAL MOTOR VEHICLE WHILE FOLLOWING THESE RESTRICTIONS: AVOID NIGHT DRIVING AND LOW VISIBILITY CONDITIONS; LONG DISTANCE DRIVING SHOULD BE DONE WITH OTHER LICENSED CHEF ASSISTANT WITH HIM TO SHARE THE DRIVING GIVEN HIS MEDICAL HISTORY; DO NOT DRIVE WHEN NOT FEELING WELL; AVOID DRIVING WHEN EXTREME WEATHER CONDITIONS. This therapist did call his sister, Renate, who is his DPOA after the session to share results with her. Billing: Total Treatment Time Minutes (timed/untimed) 60 Drivers Follow Up per 60 min (61271): 1:1 time 60 min Total time: 60 minutes Cathleen Goel, OT/L, CDRS, LDI Certified Sawmill Worker Epic Cupid Analyst Episode Visit Count: 2 Therapist That Will Accept/Oversee The Plan Of Care: Emery Goel Start of Care Date: 05/04/23 Onset Date: 04/01/21 (had initial L CVA while he indicated having another one this past November, while this therapist has minimal other details) Plan of Care Certification Date: 05/04/23 REHABILITATION AND SPORTS THERAPY OCCUPATIONAL THERAPY DISCONTINUANCE OF CARE PLAN OF CARE UPDATE: Assessment: Gustavo Patton is discontinued from Occupational Therapy services due to goals met and no further skilled OT services indicated . Patient was seen for 2 visits from Start of Care Date: 05/04/23 to 05/19/2023 and treatment included: Sawmill Worker rehab evaluation. Goals for Episode of Care created on 05/04/23 through 06/04/23 1.Patient will complete clinical training and/or testing at [place] level in preparation for returning to driving. 2.Patient will complete functional mobility task with good safety awareness during behind the wheelassessment PROMIS Scales 05/04/2023 Higher is Better Phys Func - Score 76 (within normal limits) Phys Func - Percentile 100 Self-Eff Symptom - Score 27 (Very Low) Self-Eff Symptom - Percentile 1 T-scores: mean of general population = 50. 5 points is clinically meaningfully difference Percentiles provide an indication of how the patient's score ranks in relation to the general population. Higher percentile rankings indicate better function/quality of life. 50th percentile is the average of the general population and indicates half of respondents had a worse score. BIBI Louis, CDRS, LDI documented in this encounterK[facility]04-04-2024 Miscellaneous Notes* Telephone Encounter - Cathleen Goel OT/L - 05/11/2023 1:09 PM EDT This therapist indicated that she could contact his sister after the behind the wheel assessment toindicate recommendations. documented in this encounterK[facility]03-28-2024 NoteHNO ID: [id number] Author: CATHLEEN GOEL OT/L Service: ? Author Type: Occupational Therapist Type: Progress Notes Filed: 05/10/2023 14:49 Note Text: Episode Visit Count: 1 Therapist That Will Accept/Oversee The Plan Of Care: Emery Goel Start of Care Date: 05/04/23 Onset Date: 04/01/21 (had initial L CVA while he indicated having another one this past November, while this therapist has minimal other details) Plan of Care Certification Date: 05/04/23 Patient Identified by Name and Date of : Yes REHABILITATION AND SPORTS THERAPY OCCUPATIONAL THERAPY INSTRUMENTAL ADL AND COMMUNITY MOBILITY EVALUATION SUBJECTIVE: Gustavo Patton is a 72 year old male seen today for OT functional community mobility assessment due to CVA while Gusatvo indicated that he had another one that occurred 11/28 but could not provide any additional details. He had a friend bring him to this appointment but he came in by himself so this therapist had no other persons to request information from. This therapist did ask Gustavo if she could call his sister in [place] prior to the behind the wheel assessment and he agreed that this would be ok. He did indicate that he is still working 2-3 hours/day at [employer] which is just behind his apartment while he walks over there daily. He also shared that he continues to have a nurse come to his house weekly to set up his medication and check on him. He also was able to communicate that his sister Georgina who brought him last time to this appointment following his first stroke, no longer can drive due to vision problems so he had been helping her out with transportation assist prior to the most recent stroke occurring. He also said that he can and does walk for some things while has PO and [employer] close by. Functional Limitations: nothing Prior Level of Function: Required assistance Home Environment Patient Lives With: Self/Alone Assistance Available: None Home Type: Apt/Condo Entry To Home: Stairs Number Of Stairs Into Home: 4 Laundry: in basement Transportation: SUV (2023 [employer]) Patient Goals: to return to driving on public roads Intake Information: Prescription present Previous Treatment: Speech Therapy , Acute Hospital , Acute Rehab , SNF , Home Therapy , Sawmill Worker Assessment Falls Interview: No positive findings with falls interview Relevant History Past Relevant Medical Conditions: Cerebral Vascular Accident, Diabetes, Hypertension Highest Level of Education: High School Right or Left Handed: Right Employment: [employer]: See Comment [employer] 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 Recreation / Current Exercise: some walking to bank and PO but otherwise no exercise Hobbies / Interests: watching TV, will look things up on his computer, used to be active in sports card collecting but not much now Home Environment Patient Lives With: Self/Alone Assistance Available: None Home Type: Apt/Condo Entry To Home: Stairs Number Of Stairs Into Home: 4 Laundry: in basement Transportation: SUV (2023 [employer]) Pain Level: 0 Post Treatment Pain Level: No Change Activities of Daily Living: Independent Instrumental Activities of Daily Living: he completed all house hold tasks on his own while he pays his bills on line while his sister, Renate monitors the same; he has a nurse come in weekly who sets up and monitors his medications; currently he is walking where he needs to go or relying on friends to take him 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 Violation HX: none 5 Yr. MVA HX: none Handicap Parking Placard: NO 1. Gustavo Patton self report indicates an awareness of: ongoing communication deficits 2. Gustavo Patton expressed confidence regarding driving as he done previously in various situations other than that he avoids night driving more recently. 3. Gustavo Patton expressed no concerns regarding driving. OBJECTIVE MEASURES WITH LEVEL OF FUNCTION: SENSORIMOTOR ASSESSMENT: Hand dominance: Right Level of Function Relevant to I ADL, Community Mobility, and Driving: Right UE: Sufficient Left UE: Sufficient Community Organization Worker: Sufficient Right LE: Sufficient Left LE: Sufficient Sitting Balance: Sufficient Head / Neck: Sufficient Ambulation: Sufficient Transfers: Sufficient Loading of Device: NA ASSESSMENT OF SENSORIMOTOR FUNCTION: Compatible with Driving VISION SCREENING: Vision Vision Deficits: Wears corrective lenses Corrective lenses: reading glasses on while he has last formal eye exam about 3 weeks ago Corrective Lenses: None (more content not included)...[facility]03-28-[facility] History of Present illness Narrative* Cathleen Goel OT/Marixa - 05/04/2023 3:44 PM EDT Episode Visit Count: 1 Therapist That Will Accept/Oversee The Plan Of Care: Emery Goel Start of Care Date: 05/04/23 Onset Date: 04/01/21 (had initial L CVA while he indicated having another one this past November, while this therapist has minimal other details) Plan of Care Certification Date: 05/04/23 Patient Identified by Name and Date of : Yes REHABILITATION AND SPORTS THERAPY OCCUPATIONAL THERAPY INSTRUMENTAL ADL AND COMMUNITY MOBILITY EVALUATION SUBJECTIVE: Gustavo Patton is a 72 year old male seen today for OT functional community mobility assessment due to CVA while Gustavo indicated that he had another one that occurred 11/28 but could not provide any additional details. He had a friend bring him to this appointment but he came in by himself so this therapist had no other persons to request information from. This therapist did ask Gustavoif she could call his sister in [place] prior to the behind the wheel assessment and he agreed that thiswould be ok. He did indicate that he is still working 2-3 hours/day at [employer] which is just behind his apartment while he walks over there daily. He also shared that he continues to have a nurse come to his house weekly to set up his medication and check on him. He also was able to communicate that his sister Georgina who brought him last time to this appointment following his first stroke, notatanger can drive due to vision problems so he had been helping her out with transportation assist prior to the most recent stroke occurring. He also said that he can and does walk for some things while has [employer] close by. Functional Limitations: nothing Prior Level of Function: Required assistance Home Environment Patient Lives With: Self/Alone Assistance Available: None Home Type: Apt/Condo Entry To Home: Stairs Number Of Stairs Into Home: 4 Laundry: in basement Transportation: [employer] (20[employer]) Patient Goals: to return to driving on public roads Intake Information: Prescription present Previous Treatment: Speech Therapy , Acute Hospital , Acute Rehab , SNF , Home Therapy , Sawmill Worker Assessment Falls Interview: No positive findings with falls interview Relevant History Past Relevant Medical Conditions: Cerebral Vascular Accident, Diabetes, Hypertension Highest Level of Education: High School Right or Left Handed: Right Employment: [employer]: See Comment [employer] 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 Recreation / 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 Exercise: some walking to [employer] and [employer] but otherwise no exercise Hobbies / Interests: watching TV, will look things up on his computer, used to be active in sports card collecting but not much now Home Environment Patient Lives With: Self/Alone Assistance Available: None Home Type: Apt/Condo Entry To Home: Stairs Number Of Stairs Into Home: 4 Laundry: in basement Transportation: SUV (2023 [employer]) Pain Level: 0 Post Treatment Pain Level: No Change Activities of Daily Living: Independent Instrumental Activities of Daily Living: he completed all house hold tasks on his own while he payshis bills on line while his sister, Renate monitors the same; he has a nurse come in weekly who setsup and monitors his medications; currently he is walking where he needs to go or relying on friendsto take him 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 Violation HX: none 5 Yr. MVA HX: none Handicap Parking Placard: NO 1. Gustavo Patton self report indicates an awareness of: ongoing communication deficits 2. Gustavo Patton expressed confidence regarding driving as he done previously in various situations other than that he avoids night driving more recently. 3. Gustavo Patton expressed no concerns regarding driving. OBJECTIVE MEASURES WITH LEVEL OF FUNCTION: SENSORIMOTOR ASSESSMENT: Hand dominance: Right Level of Function Relevant to I ADL, Community Mobility, and Driving: Right UE: Sufficient Left UE: Sufficient Community Organization Worker: Sufficient Right LE: Sufficient Left LE: Sufficient Sitting Balance: Sufficient Head / Neck: Sufficient Ambulation: Sufficient Transfers: Sufficient Loading of Device: NA ASSESSMENT OF SENSORIMOTOR FUNCTION: Compatible with Driving VISION SCREENING: Vision Vision Deficits: Wears corrective lenses Corrective lenses: reading glasses on while he has last formal eye exam about 3 weeks ago Corrective Lenses: None Distant Acuity: Binocular: 20 / 40 Right: 20 / 50-1 Left: 20 / 40-1 (Did not test glare or night far acuity) Color Perception: failed color perception but intact for color recognition Depth Perception: Fail Contrast Sensitivity: moderately impaired both eyes Peripheral Vision: Within legal limits for driving Right Eye: Acknowledged all stimuli. Left Eye: Acknowledged all stimuli. Pursuits: WNL Saccades: WNL Convergence: Impaired Nystagmus: Not Apparent Diplopia: No complaints Strabismus: No OU Cataracts: No OU Glaucoma: No. OU Other Eye Conditions / Diseases Reported: nothing indicated ASSESSMENT OF VISUAL FUNCTION: concerns include far acuity slightly decreased, failed stereo depth perception, moderate decreased B contrast sensitivity COGNITIVE / PERCEPTUAL ASSESSMENT: SHORT BLESSED TEST Short Blessed Test 1. What Year Is It Now?: Correct 2. What Month Is It Now?: Correct 3. What Time is it? (WIthin 1 hour): Correct 4. Count Aloud Backwards 20 to 1 (Errors): 0 5. Months of the Year in Reverse Order (Errors): 0 6. Memory Phrase (Errors) : 0 Short Blessed Final Score: 0 Short Blessed Test Scorin-8; Normal to minimal impairment 9-19; Moderate impairment 20-28; Severe impairment [email or web address] Visual Scanning/Attention: [place] Making Part B (sec): 318 sec (required moderate v/c's to complete this time while last performance on this was 183 sec which was close to functional range while not current performance) 50th percentile norm for age group: 70-79; Part A: 80 seconds, Part B: 196 seconds Heidy Clock Drawing Test: Gustavo Patton correctly included 4/8 criteria for this test. He failed to include or correctly place: only the numbers 1-12 (no duplicates, omissions, or foreign markings) the numbers equally, or nearly so, from each other one clock hand at the two o'clock position the other clock hand at the eleven o'clock position According to The Physician's Guide to Assessing and Counseling Older Drivers, 2003, any incorrect element in the Heidy Clock Scoring signals a need for intervention. Motor Free Visual Perception Test: MVPT Total Score: 31 (previous score was 33/36) MVPT Processing time (seconds): 10.2 (previously average response was 6.5 sec which was within normals for age) Norms: 70-80 y/o: Raw Score 25-35; Processing Time 4.5-7.1 seconds +/- .5 seconds Visual Inattention / Unilateral Neglect: Not Apparent ASSESSMENT OF COGNITIVE / PERCEPTUAL FUNCTION: CONCERNS INCLUDE TRAILMAKING B PERFORMANCE WHILE SIGNIFICANT IMPAIRMENT NOTED ESPECIALLY WHEN COMPARING TO LAST SCREENING, CLOCK DRAWING ALTHOUGH LAST ATTEMPT SCORE WAS 0/8, AND SLOWED AVERAGE VISUAL PROCESSING SPEED ON VISUAL PERCEPTUAL SCREENING WHICH IS WORSE THAN LAST TIME; ongoing communication deficits which were also present last session [place] Sawmill Worker Simulator: Simple Brake Reaction Time: Average Distance: 55.6 feet (Normal = 60 feet) R foot only pedal operation method Education: Education Learning Preferences: Demonstration, Explanation Barriers: Communication Deficit Learning/educational needs: Safety, Plan of Care Education Provided: Yes, see treatment interventions for education provided Education Provided To: Patient Education Mode/Type: Explanation/Discussion, Demonstration Response to Education/Teach Back: States/Identifies TREATMENT: Evaluation Self-Prison Management: 1: refer to documentation in this report 2: provided support and education to patient and his sister Skilled Intervention: Skilled judgment in the selection of proper modification for activity of daily living/home management based on clinical presentation, deficits, and needs. Educated the patient regarding recommendations and provided written instruction to facilitate compliance. Reviewed patient specific diagnosis in relation to activities of daily living/home management. Activity progression based on professional judgement. 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 Due to the complex nature of the safe operation of a motor vehicle, and considering the demands of integrating changing environmental conditions, and visual, cognitive, and physical skills, successful completion of this program is not a guarantee of safe driving in the future. ASSESSMENT OF INSTRUMENTAL ADL AND COMMUNITY MOBILITY: Gustavo Patton presents with the diagnosis of L CVA while had previous one as well. He presents with impairments of decreased convergence, decreased B contrast sensitivity/far acuity, slowed average visual processing speed on visual perceptual screening, clock drawing score, significant decline in performance on Trailmaking B for alternating attention skills as compared to last assessment, ongoing communication challenges while this therapist did provided him with another language card with contact information on it so that he could sharewith another if emergency situation. He may benefit from skilled occupational therapy services to complete behind the wheel assessment that is scheduled to occur from his home in order to determine if any functional deficits apparent. RECOMMENDATIONS: ADL/IADL Recommendations: ongoing support from friends, nurse regarding medication management, sister to monitor finance management should continue Driving Recommendations: REFRAIN FROM DRIVING OUTSIDE OF DRIVERS REHABILITATION WITH BEHIND THE WHEEL PORTION OF THIS ASSESSMENT SCHEDULED FOR 05/19/23 WITH RECOMMENDATIONS TO FOLLOW THAT SESSION; this therapist will contact his sister, Renate, in [place] prior to then to share concerns and see if any updated information that Gustavo did not share at the time of this assessment Recommended Complete Eye Exam: as indicated by eyeglass cutter Prognosis: Good Good due to: current objective clinical presentation, good overall health status, acuteness of condition Goals for Episode of Care created on 05/04/23 through 06/04/23 1.Patient will complete clinical training and/or testing at [place] level in preparation for returning to driving. 2.Patient will complete functional mobility task with good safety awareness during behind the wheelassessment. 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 The above goals and plan of care were discussed and agreed upon by patient. Billing: Total Treatment Time Minutes (timed/untimed) 120 Evaluation - Moderate Complexity (34824) Self Care / Home Management (17650): 1:1 time: 30 minutes (2 units: 23-37 mins) Community /Work Re-integration (96163): 1:1 time: 30 minutes (2 units: 23-37 mins) Total time: 120 minutes BIBI Louis, CDRS, LDI Certified Sawmill Worker Epic Cupid Analyst documented in this encounterK[facility]03-[facility]-2024 Miscellaneous Notes* Telephone Encounter - Renuka York LPN - 05/01/2023 10:25 AM EDT Patient's request for medication is as follows: Requested Prescriptions Refused Prescriptions Disp Refills atorvastatin (LIPITOR) 40 mg tablet [Pharmacy Med Name: ATORVASTATIN 40 MG TABLET] 90 tablet 3 Sig: TAKE 1 TABLET BY MOUTH/FEEDING TUBE DAILY AT BEDTIME Patient last seen on 05/12/2021. Patient canceled appointments on 01/06/2023 and appointment on 03/08/2023. Please forward requests to PCP for noncompliance with appointments. Prescription(s) as above. Please process accordingly. Renuka York LPN documented in this encounterK[facility]03-14-2024 Miscellaneous Notes* Addendum Note - Fallon Steiner PA-C - 04/20/2023 10:50 AM EDTAddended by: FALLON STEINER on: 04/20/2023 10:50 AM Modules accepted: Orders * Telephone Encounter - Fallon Steiner PA-C - 04/20/2023 10:50 AM EDT Will send in referral to OT for driving evaluation. * Telephone Encounter - Rand Johansen LPN - 04/20/2023 10:41 AM EDT Phone call placed to [facility] transportation to coordinate patients ride for scheduled OV 07/17/2023 spoke to Rosa, sarah os scheduled, no further action. Rand Johansen LPN * Telephone Encounter - Rand Johansen LPN - 04/20/2023 10:36 AM EDT Phone call placed to [facility], Dr. Dill spoke to Mary reported patient was scheduled as new to their office on 03/01/2023 faxing OV for provider review. Rand Johansen LPN * Telephone Encounter - Erma Davis - 04/20/2023 10:11 AM EDT Patient and Dorinda are calling in regards to PT DRIVING EVAL for further assessment asking if this would be the current PT order and just needs scheduled at [facility]. Please advise Dorinda at [phone] documented in this encounterK[facility]03-12-[facility]24 Instructions* Patient Instructions* Fallon Steiner PA-C - 04/18/2023 9:58 AM EDT Continue plavix and atorvastatin Stroke prevention noted below General guidelines for stroke risk factor management, if present Hypertension Target blood pressure <140/90, <130/80 for high risk; normal is 120/80 Hyperlipidemia Target total cholesterol < 200 Target LDL <100, < 70 for high risk Target HDL >45 for men, >55 for women Target triglycerides <150 Diabetes Target HgbA1c <7% Smoking Target is smoking cessation Physical inactivity Target is exercise at least 3 times per week Target waist circumference, in inches is <35 for women and <40 for men Follow up in [address] Manley documented in this encounterKet[facility]03-12-2024 History of Present illness Narrative* Phil SteinerieJOSE - 04/18/2023 9:53 AM EDT ESTABLISHED PATIENT VISIT Last visit: 12/17/[address] Manley ASSESSMENT/PLAN: 1. 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 Workup reviewed as above. Note in setting of DVT (R pop) with concern that limited ECHO while in hospital may have missed PFO. Also note, no Afib on Zio. Discussed with pt and will repeat ECHO with bubble with co nsideration for ARCENIO (again looking for PFO). In addition, will repeat CT scan to confirm no other changes given lack of appropriate follow up as well as confirm safety in case OAC needed. For now continue ASA, statin. BP goal <140/90. Glucose goal <140. Pt and family educated on stroke including cause, physiology, treatment, and prognosis. They all agree with workup plan. Pt wanting to drive. Uncertain able to do so safely given language deficits, but will refer to PT DRIVING EVAL for further assessment and recs. 3. Deep vein thrombosis (DVT) of popliteal vein of right lower extremity, unspecified chronicity (HCC) - ICD9: 453.41, ICD10: I82.431 Pt with DVT as above. IVC placed. Was supposed to start on OAC 8 weeks after stroke. Again no follow up. Not scheduled for vascular until 2022. Will get repeat lower ext dopplers to determine extent of clot at this time and need for OAC or sooner eval. Follow up in 3 months or sooner prn. Jese Manley MD CHIEF COMPLAINT: follow up HISTORY OF PRESENT ILLNESS: Gustavo Patton is a 72 year old male, There were no vitals taken for this visit. with a PMH significant for stroke, cardiomyopathy, DM, DVT. Last saw Dr. Manley on 12/17/21 for CVA. 04/03/21 and showed acute infarct secondary to L M1 occlusion (s/p intervention as above) with additional stroke in the L cerebellar territory suggesting embolic source'. Had receptive aphasia, impaired repeating and comprehension. Central weakness of face, brisk reflexes on right. Repeated ECHO due to concerns for PFO, repeated CT brain, US o fthe legs due to DVT, saw vascular. Repeat ECHO neg for PFO. Currently on plavix and Atorvastatin. On paper patient has, there was a new stroke on 11/22/22. On 11-22-2022, patient presented to [facility] emergency department with power of litigation attorney for concerns of worsening weakness starting the day before. Notes that he dropped his coffeemug and did not go to work. That day, he began experiencing some slurred speech. Did have history of stroke in the past with no residual effects, was on aspirin at time. MRI of the brain showed acuteinfarct in the right parietal lobe and old left frontal temporal infarct. There is no documentationmeeting dual antiplatelet therapy or further workup at that time as records are limited. Will have admission records sent over. Per patient: History is extremely limited due to patient's baseline cognitive function. Patient does remember going to the hospital in November for stroke, but does not remember any details around this. Does not remember any testing that was done in January any follow-ups with her. Does report he did see his medical engineer in March and was able to pull up his appointments on his T[place] on his phone. However, states that all he said was to follow-up in a year and that he was fine. Denies any weakness, denies any falls. Notes he lives by himself in [place] but he has people visit him. Was driving before the stroke, but has not driven since and would like his license back. Unsure if he isstill taking Plavix, this is not his medication list and he states that he is takes everything on his medication list. No concerns today, patient is unsure why he presents to the office today. Based off of chart review, patient did present with family and last appointment. REVIEW OF SYSTEMS GENERAL:No weight loss, malaise or fevers. HEENT:Negative for frequent or significant headaches, No changes in hearing or vision, no nose bleeds or other nasal problems NECK:Negative for lumps, goiter, pain and significant neck swelling RESPIRATORY: Negative for cough, wheezing or shortness of breath. CARDIOVASCULAR: Negative for chest pain, leg swelling or palpitations. GASTROINTESTINAL: Negative for abdominal discomfort, blood in stools or black stools or change in bowel habits GENITOURINARY: No history of dysuria, frequency or incontinence MUSCULOSKELETAL: Negative for joint pain or swelling, back pain or muscle pain. NEUROLOGIC:Negative for focal numbness or weakness, headaches and dizziness or syncope, vision changes, speech/languag changes - EXCEPT that as per HPI above. SKIN:Negative for lesions, rash, and itching. PSYCHIATRIC: Negative for sleep disturbance, mood disorder and recent psychosocial stressors. HEMATOLOGIC/LYMPHATIC/IMMUNOLOGIC:Negative for prolonged bleeding, bruising easily or swollen nodes. ENDOCRINE: Negative for cold or heat intolerance, polyuria, polydipsia and goiter. The remainder of the ROS was reviewed and is negative. LAB/IMAGING: Those performed since patient's last visit have been reviewed. CT brain 12/24/21 IMPRESSION: No acute intracranial process by CT. No acute intracranial hemorrhage. Chronic changes as described including interval evolution of the previously noted infarcts. ECHO 12/27/21 CONCLUSIONS: - Exam indication: Stroke - The left ventricle is small. Left ventricular systolic function is normal. EF = 64 5% (2D biplane) Grade I left ventricular diastolic dysfunction. - The right ventricle is normal in size. Right ventricular systolic function is normal. - Agitated saline study was negative for intracardic shunting (clip 96). - There are no significant valvular abnormalities. - The patient has not had a prior CC echocardiographic exam for comparison. MEDICATIONS: SENNA-DOCUSATE SODIUM ORAL Take by mouth. clopidogrel (PLAVIX) 75 mg tablet loratadine (CLARITIN) 10 mg tablet Take by mouth. pantoprazole DR (PROTONIX) 20 mg tablet Take 1 tablet by mouth every afternoon. metoprolol succinate ER (TOPROL XL) 25 mg 24 hr tablet TAKE 1 TABLET BY MOUTH EVERY DAY lisinopril 2.5 mg tablet Take 1 tablet by mouth once daily. metFORMIN (GLUCOPHAGE) 500 mg tablet TAKE 1 TAB TWICE DAILY FOR 2 WEEKS, THEN TAKE 2 TABS TWICE DAILY atorvastatin (LIPITOR) 40 mg tablet 1 TABLET BY ORAL/FEEDING TUBE ROUTE DAILY AT BEDTIME. aspirin 81 mg chewable tablet 1 tablet by ORAL/FEEDING TUBE route once daily. insulin glargine (LANTUS SOLOSTAR, BASAGLCHRISTIANO PEARL) 100 unit/mL (3 mL) Inject 10 Units subcutaneously daily at bedtime. (Patient not taking: Reported on 01/13/2022) insulin lispro (HUMALOG KWIKPEN) 100 unit/mL Inject 3 Units subcutaneously w MEALS. (Patient not taking: Reported on 01/13/2022) HISTORIES PAST MEDICAL HISTORY Diagnosis Date Diabetes mellitus (HCC) Diastolic heart failure (HCC) DVT of lower extremity (deep venous thrombosis) (HCC) Dysphagia HTN (hypertension) Primary cardiomyopathy (HCC) Primary cardiomyopathy (HCC) Shortness of breath Stroke (cerebrum) (HCC) FAMILY HISTORY Problem Relation Age of Onset Diabetes Father SOCIAL HISTORY Social History Tobacco Use Smoking status: Never Smokeless tobacco: Never Substance Use Topics Alcohol use: Never Drug use: Never PHYSICAL EXAMINATION BP 122/78 Pulse 94 Resp 16 Wt 80.2 kg (176 lb 12.8 oz) SpO2 96% BMI 25.37 kg/m MoCA- deferred due to time GENERAL EXAM: General appearance: NAD, pleasant. HEENT: NC/AT, nasal congestion absent, no oral lesions, membranes moist. NECK: No masses, supple. Lungs: Breathing comfortably Extr: Moves all extremities without difficulty Skin: Cool to touch. No rash. NEUROLOGICAL EXAM: General: Awake, alert, oriented x3 (person,place,time), speech fluent, no dysarthria; comprehension, naming, repetition intact. CN: PERRL, EOMI and without nystagmus, VFF to confrontation, facial sensation and strength are normal and symmetric, hearing is intact to finger rub bilaterally, palate and tongue movements are intact and symmetric. SCM and trapezius strength normal. Motor: Normal tone, bulk. Slight decreased in manager financial strength on left hand, decreased finger abduction and adduction (4+/5). Otherwise strength intact. Reflexes: LUE 3/4 to left bicep and brachioradialis. 2+/4 to right bicep and brachioradialis Coordination: FNF intact. No tremors. Sensation: No evidence of neglect. Gait: Stable, slightly wide based Assessment and Plan: ASSESSMENT/PLAN: 1. Cerebrovascular accident (CVA), unspecified mechanism (HCC) - ICD9: 434.91, ICD10: I63.9 (primary diagnosis) 2. Left arm weakness - ICD9: 729.89, ICD10: R29.898 3. Cognitive developmental delay - ICD9: 315.9, ICD10: F81.9 Patient presents alone for follow-up appointment. However, history is extremely limited due to patient's cognitive delay from . Previous appointments patient known to the family. On arrival, patient did have a slip of paper that said he had a stroke in November, did look at records at [facility] at that time. These records are limited, does show that patient had new onset leftparietal stroke, was on dual antiplatelet therapy for 3 weeks and was instructed to continue Plavixas he was on aspirin before. On his medication list he does have Plavix listed but patient is unsure of any medications he takes by name. Does not appear they found a source of stroke, patient does follow with cardiology, Dr. Dill, and patient states he did follow-up with this provider in March. Does not believe anything was changed. Will have office reach out to Dr. Dill's office to get records. This was patient's second stroke, previous stroke with unknown cause. Patient did have a DVT at that time but no PFO was found on echo. Patient was following with vascular at that time. Patient cannot provide me any information regarding this. At this time, will further obtain records to see if any further testing is needed including Zio monitor. However, no changes will be made today as history and records are limited. Encourage patient to continue with Plavix. Patient does have some mild weakness on the left upper extremity patient states he did complete physical therapy after the hospital. Did send in referral for this to be continued as patient still experiencing some weakness on exam. Encouraged stroke mention instructions were given along with following up with primary care for monitoring of blood pressure, blood sugar, cholesterol. Patient agrees and understands. Unfortunately, MoCA was unable to be obtained today due to time constraints. Patient agreeable to treatment plan of care at this time, all questions were answered. Patient to follow-up in 3 months. Fallon Steiner PA-C I spent a total of 45 minutes on the date of the service which included preparing to see the patient, [id number] patient care, completing clinical documentation, obtaining and/or reviewing separately obtained history, performing a medically appropriate examination, counseling and educating the pat ient/family/caregiver, and ordering medications, tests, or procedures. This document has been created with the use of voice recognition technology. It may contain inaccuracies: (e.g. misspellings, inaccurate syntax or word sense) that have escaped review. documented in this encounterK[facility]10-19-2023 Discharge summary Author Jerod Cavazos [facility] November 24, 2022 11:21am Note Date/Time November 23, 2022 1 0:33am [facility] Medical Records Department [address] [place] [address] Instructions for Home/Discharge Instructions 11/23/22 1032 MR#: [id number] Acct: [id number] Name: GUSTAVO PATTON Rep #:[id number] : 1950 71 From: Jerod askew DO PCP: Madhavi Chaudhry DO Status:ADM I N Discharge Instructions Diet Discharge Diet: - (Distant supervision, oral care after meals per speech therapy) Activity Discharge Activity: Return to Normal Activity Weight Bearing Status: Full weight bearing Follow Up Care Please Follow Up With: Madhavi Chaudhry DO When: As needed Test Results: Test results from this visit will be discussed in further detail at your follow- up appointment, if applicable. Pending Tests Upon Discharge: None Discharge Plan Admission Admit Date/Time: 11/23/22 16:47 Primary Reason for Your Visit: Acute CVA Attending Provider: Jerod Cavazos Primary Care Provider: Madhavi Chaudhry Instructions Additional Instructions / Restrictions: Please take your medications as follows: ? Take both aspirin 81 mg daily and Plavix 75 mg daily for the next 3 weeks, then ? Take only Plavix 35 mg daily going forward Please take all other medications as previously prescribed. Would recommend scheduling follow-up appointments with both your primary care doctor and the neurologist that you were seen with given clinic within the next several weeks. Discharge Orders/Prescriptions Prescriptions: New clopidogrel 75 mg Tablet 75 mg PO DAILY 90 Days Qty: 90 3RF Continued aspirin 81 mg tablet 81 mg PO/SL DAILY atorvastatin 40 mg tablet 40 mg PO/SL QHS lisinopril 2.5 mg tablet 2.5 mg PO/SL DAILY metformin 500 mg tablet 1,000 mg PO/SL BID metoprolol succinate 25 mg tablet 25 mg PO/SL DAILY senna-docusate sodium 8.6 mg tablet 8.6 mg PO/SL DAILY Rx Instructions: 2 tabs daily loratadine 10 mg tablet 10 mg PO/SL DAILY multivitamin Capsule 1 cap PO DAILY Referrals / Follow Up: Madhavi Chaudhry DO [Primary Care Provider] - Disposition Disposition (needs filled in before D/C Order can be placed): Inpatient Rehab Unit/Facility 11/24/22 1121<Electronically signed by Jerod Cavazos DO>Jerod Cavazos DO CC: Madhavi Chaudhry DO ~ Signed [facility] Work Phone: [phone]) 685-868510-18-2023 Progress note Author Jerod [facility] November 23, 2022 3:00pm Note Date/Time November 23, 2022 2 :55pm [facility] Medical Records Department [address] [place] [address] Progress Note - Hospitalist 11/23/22 1442 MR#: [id number] Acct: [id number] Name: GUSTAVO PATTON Rep #:[id number] : 1950 71 From: Jerod askew DO PCP: Madhavi Chaudhry DO Status:ADM I NO Location: ICU CVICU20 1- Reason for Visit Reason for Visit: Diagnoses Dysarthria and anarthria (11/22/22) Subjective Subjective Patient seen at bedside this morning, sister and friend present. Patient layingcomfortably in bed, conversing normally, no acute distress. Sister notes that patient appears to be closer to his baseline from mental status standpoint today. She did notice some lip droop and left hand weakness yesterday, and the seem to be improving today. Patient's friend also states that he seems close tohis baseline. Patient currently denies any acute pain or discomfort. Denies any weakness or numbness or tingling. Denies any vision changes. No other acute concerns. Objective Data Objective Data Vital Signs: Vital Signs Temp Pulse Resp BP Pulse Ox O2 Del Method 98.3 F 71 16 122/67 H 98 Room Air 11/23/22 10:00 11/23/22 14:00 11/23/22 14:00 11/23/22 14:00 11/23/22 10:00 11/23/22 14:00 Oxygen Delivery Method Room Air Weight: 71 kg Body Mass Index (BMI) 22.4 Lab / Micro Data 11/23/22 08:00 11/23/22 08:00 Labs: Laboratory Results - last 24 hr 11/23/22 05:45: Triglycerides 77, Cholesterol 97, LDL Cholesterol 31, VLDL Cholesterol 15, HDL Cholesterol 51 11/23/22 08:00: WBC 7.2, RBC 4.05 L, Hgb 12.5 L, Hct 37.8 L, MCV 93.3, MCH 30.9,MCHC 33.1, RDW Std Deviation 43.4, RDW Coeff of Sara 12.6, Plt Count 280, MPV 10.5, Sodium 137, Potassium 3.8, Chloride 104, Carbon Dioxide 27.0, Anion Gap 6,BUN 22 H, Creatinine 1.08, Estim Creat Clear Calc 64.83, Est GFR (MDRD) Af Amer 87, Est GFR (MDRD) Non-Af 72, BUN/Creatinine Ratio 20.4 H, Glucose 100, Calcium 8.9 Radiography Diagnostic Testing: Radiology Impression Brain MRI 11/22/22 13:08 IMPRESSION: Acute infarct in the right parietal lobe. Old left frontal temporal infarct Electronically Signed: Roger Segovia MD at 19:00 EDT Reading Location ID and State: [facility] / ID Tel [phone], Service support , ADDENDUM: 11/22/221955 IMPRESSION: Acute infarct in the right parietal lobe. Old left frontal temporal infarct N.B. : The above Results were Read Back by Roger Segovia MD to Irish Brantley RN, and understanding confirmed on 11/22/2022 19:49:42 (ET). Electronically Signed: Roger Segovia MD at 19:00 EDT , ADDENDUM: 11/22/222125 IMPRESSION: Acute infarct in the right parietal lobe. Old left frontal temporal infarct N.B. : The above Results were Read Back by Roger Segovia MD to Brendan Mccollum MD, and understanding confirmed on 11/22/2022 21:19:58 (ET). Electronically Signed: Roger Segovia MD at 19:00 EDT , Echocardiogram 11/22/22 13:08 Interpretation Summary The estimated ejection fraction is 65 %. Ordering Physician: Jerod Cavazos Referring Physician: Madhavi Chaudhry Performed By: Marlen Arthur, RDCS, RVT Physical Exam Const alert, no apparent distress and average body habitus Constitutional Narrative: Pleasant elderly male, sitting comfortably in bed, alert. Appears to have mild cognitive delay and mild slurred speech, otherwise answering questions appropriately, no acute distress. General Appearance: cooperative and comfortable HEENT normocephalic, head/scalp atraumatic, hearing grossly normal bilaterally, nasal mucous membranes and turbinates normal and moist oral mucous membranes Eyes PERRL, EOMs intact bilaterally and conjunctivae normal Neck full ROM, no lymphadenopathy and supple Lymph Lymphatic: no lymphadenopathy noted Chest inspection of chest normal Resp normal respiratory effort, normal air movement, no use of accessory muscles and clear to auscultation bilaterally Cardio regular rate, regular rhythm, no murmurs and peripheral pulses 2+ throughout GI normal to inspection, nondistended, normoactive bowel sounds, soft to palpation,non-tender and non-distended Back/Spine normal ROM Extremity normal to inspection, full ROM and no pedal edema Skin no rashes or lesions noted Neuro moves all extremities and no focal motor deficits Sensorium / Orientation: awake and alert Psych mental status grossly normal Assessment & Plan Assessment/Plan (1) CVA (cerebrovascular accident): PLAN: Plan Patient is a 71-year-old male with history of left MCA CVA s/p tenecteplase withhemorrhagic conversion and thrombectomy in 03/2021 with no residual deficits, DVTof RLE s/p IVC filter placement, history of dysphagia, HFrEF, type 2 diabetes and mild developmental delay who presented to [facility] ED on 11/22/2022 with new onset weakness and slurred speech. 1. Acute right MCA CVA, history of left MCA CVA MRI brain without contrast on 11/23 showed an acute infarct in the right parietal lobe in the territory of the right MCA. Patient's friend brought him to the ED on the morning of 11/22 because he was slurring his speech, dropped his coffee mug and reported hand weakness, and generally was not acting his normal self. NIHSS score of [address] head without contrast negative on admit. Echo showed an EF of 65%, no intracardiac thrombi noted, no valvular disease noted. Lipid panel with good lipid control on home statin. Patient started on Plavix on evening of 11/22 after MRI showed acute stroke. Patient notably has history of left MCA CVA with hemorrhagic conversion after tenecteplase administration and thrombectomy back in 03/2021, see H&P for furtherdetails. ? Teleneurology following. Agreed with adding Plavix to regimen. Plan for dualantiplatelet therapy with aspirin and Plavix for 3 weeks, followed by Plavix therapy alone. Continue home statin medication. Noted that infarcts on MRI do have the appearance of embolic infarcts. Patient notably does not have a diagnosis of A-fib, EKG on admit was NSR and telemetry has shown NSR throughout this admission. Neurology recommended Holter monitor going home and if that is negative, may need loop recorder. PT/OT/case management/speech therapy following, recommending inpatient rehab on discharge; medically stable for discharge, placement pending. Continue telemetry. 2. Heart failure with recovered ejection fraction Diagnosed in 03/2021 during hospital admission for acute CVA. Echo done at that time showed an EF of 45%, mild LVH, no valvular abnormalities, no intracardiac shunting seen. Cardiology followed on that admission, patient was started on aspirin, statin, lisinopril and beta-erika. Patient reports adherence to his medications at home. Notably had lipid panel done in 04/2022 that showed a totalcholesterol of 121, LDL 43, HDL 60, triglycerides 92. Not on home diuretics, appears euvolemic on admission. Repeat echo on 11/22 showed EF 65%, no LV dysfunction, no atrial dilation, no valvular changes. ? Continue home medications. Recommend outpatient cardiology follow-up as needed. 3. Concern for cognitive impairment with possible vascular dementia Difficult to find if patient has history of significant developmental delay. Onmy interview with patient, he is answering most questions appropriately but appears to have some cognitive slowing and mildly slurred speech. Unclear on what patient's baseline is. However, according to family and friends patient isindependent at home and does his own grocery shopping, finances, etc. Per neurology office [facility] from [facility] from 12/2021, patient apparently hadno cognitive impairment on testing but unclear of what testing this was. Discussed with patient's sister and friend on 11/23 at bedside, patient does have a home health nurse that comes twice per week to check on him and make sure he is taking his medications correctly. ? Speech therapy evaluated, noted that patient demonstrates moderate cognitive?linguistic impairment characterized by deficits in comprehension, repetition, word retrieval and short MRI recall. Also had concern for some left- sided neglect from visual scanning task. Recommending inpatient rehab prior to discharge home due to concerns for patient's ability to stay for complete ADL tasks, especially medication management given his current deficits. Case management following for placement as above. 4. History of dysphagia Was reported after patient's previous CVA. Patient currently reports no issues with difficulty swallowing with regular diet at home. Denies any issues with swallowing currently. ? Speech therapy following, diagnosis of mild oral phase dysphagia, recommended either to textures with thin liquids and distant supervision. 5. History of DVT s/p IVC filter placement Patient was found to have a RLE DVT during previous hospitalization for stroke in 2021. Anticoagulation was contraindicated at that time due to his intracranial bleed. Had IVC filter placed on 04/04 at outside hospital. Difficult to find further records after this, unclear if IVC filter remains in place at this time. ? No concern for DVT/PE at this time. Monitor. Chronic medical conditions: ? Type 2 diabetes: Apparently had A1c of 14 when diagnosed with a stroke in 2021. Last two A1c results are 6.1% in 10/2021 and 6.0% in 04/2022. On home metformin 1000 mg twice daily. Sliding-scale insulin while inpatient. Repeat A1c pending. DVT prophylaxis: SCDs CODE STATUS: Full code, verified Expected disposition: Inpatient rehab, medically ready for discharge Total clinical time spent by myself addressing the patient's medical issues, reviewing all the data, and collaborating with patient's care team: 35 minutes. Charges/Coding Visit Charges Inpatient E&M: 37909 Subs Hosp L2 11/23/22 1500 <Electronically signed by Jerod Cavazos DO> Cosigner Signature (if applicable): CC: ~ Signed [facility] Work Phone: 1(637) 252-741410-17-2023 Progress note Author Gordon Mccollum [facility] November 22, 2022 9:21pm Note Date/Time November 22, 2022 9 :21pm [facility] Medical Records Department [address] [place] [address] Progress Note - Hospitalist 11/22/222116 MR#: [id number] Acct: [id number] Name: GUSTAVO PATTON Rep #:[id number] : 1950 71 From: Gordon Greenwood PCP: Madhavi Chaudhry DO Status:ADM I NO Location: ICU CVICU20 1-1 Hospitalist Note Critical result for MRI brain finding called by Dr. Roger Mata. MRI brainreports acute infarction right parietal lobe. Old left frontotemporal infarct. About 6 cm by 3 cm patchy areas but no big local dense area as per neurologist. SOC consulted. NIH IS 1. Patient on baby aspirin and atorvastatin.Plavix 75 mg daily added. 11/22/222120 <Electronically signed by Gordon Mccollum MD> Cosigner Signature (if applicable): CC: ~ Signed [facility] Work Phone: 1(164) 184-308910-17-2023 History and physical note Author Jerod Cavazos [facility] November 22, 2022 6:59pm Note Date/Time November 22, 2022 1 2:21pm [facility] Medical Records Department [address] [place] [address] H&P Exam - Hospitalist 11/22/22 1221 MR#: [id number] Acct: [id number] Name: GUSTAVO PATTON Rep #:[id number] : 1950 71 From: Jerod askew DO PCP: Madhavi Chaudhry DO Status:ADM I NO Location: ICU CVICU20 02-06 [facility] General Date of Admission: 11/22/22 Date of Service: 11/22/22 Chief Complaint: Weakness and slurred speech HPI Narrative GUSTAVO PATTON, is a 71 M with 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 Patient seen at bedside on the floor. Sitting comfortably in bed, alert, no acute distress. Patient has mildly slurred speech and appears to have some cognitive slowing but is answering most questions appropriately, unclear on what patient's baseline is. Patient currently denies any symptoms of weakness or numbness/tingling. He denies any vision changes. Otherwise denies any fevers or chills, chest pain, shortness of breath, lightheadedness or dizziness. Patient states that he liveson his own and is able to take care of himself fine at home. States his daughter lives in [place] and he has friends that live in the area that can helphim with certain things as needed. [facility] has been taking all home medications as prescribed recently. No other acute concerns currently. Patient notably had a prolonged hospitalization for a CVA back in March 2021. Obtained most of this history from his most recent neurology office note from 12/2021 in [facility] (follows with [facility] neurology). Patient presented to [facility] in [place] in late March 2021 with right-sided weakness and left gaze preference. Initial NIHSS score was 22. CTA head/neck in ED there showed a distal left MCA occlusion. Tenecteplase was given at that time and patient also had a thrombectomy done that was successful. However, repeat CT head showed petechial hemorrhage into the left basal ganglia. Patient was also found to have new onset HFrEF and a right lower extremity DVT at that time. Was transferred to [facility] apparently for neurosurgical evaluation and IVC filter placement. Had IVC filter placed on 04/04. Did not require any neurosurgical intervention. Was apparently able to be discharged home without issue and has continued to live independently at home since that time. Vitals in ED unremarkable. Labs notable for WBC count 9.9, hemoglobin 12.1, platelets 288, INR 1.1, sodium 139, potassium 3.9, chloride 105, bicarb 26, BUN 29, creatinine 1.35, glucose 149, troponin normal. CT head without contrast showed old infarcts in the left frontoparietal and right occipital lobes, chronic involutional changes of the brain, no acute intracranial process. EKG showed normal sinus rhythm, no ST changes. Chest x-ray was unremarkable. [facility] Medical History Diabetes Stroke/cerebrovascular accident Home Medications aspirin 81 mg PO/SL DAILY 06/15/21 [History Last Taken Unknown] atorvastatin 40 mg PO/SL QHS 06/15/21 [History Last Taken Unknown] lisinopril 2.5 mg PO/SL DAILY 06/15/21 [History Last Taken Unknown] metformin 1,000 mg PO/SL BID 06/15/21 [History Last Taken Unknown] metoprolol succinate 25 mg PO/SL DAILY 06/15/21 [History Last Taken Unknown] senna-docusate sodium 8.6 mg PO/SL DAILY 06/15/21 [History Last Taken Unknown] loratadine 10 mg PO/SL DAILY 11/09/21 [History Last Taken Unknown] multivitamin 1 cap PO DAILY 12/26/21 [History Last Taken Unknown] Allergy/AdvReac Type Severity Reaction Status Date / Time No Known Allergies Allergy Verified 11/22/22 12:27 Social History Smoking Status: Never smoker ROS Constitutional Constitutional: Denies change in weight, chills, fatigue, fever(s) or weakness Eyes Eyes: Denies change in vision Cardiovascular Cardiovascular: Denies chest pain, edema, lightheadedness or rapid heart rate Respiratory/Chest Respiratory/Chest: Denies cough or shortness of breath at rest Gastrointestinal Gastrointestinal: Denies abdominal pain Neurologic Neurologic: Reports abnormal speech; Denies confusion, dizziness, focal weakness, headache(s), numbness, paresthesias or tingling Vital Signs Vital Signs Vital Signs: 11/22/22 09:48 11/22/22 10:36 11/22/22 10:23 Temperature 98.7 F Temperature Source Oral Pulse Rate 100 99 Respiratory Rate 21 H 19 H Blood Pressure 145/87 H 125/77 H Blood Pressure Mean 106 93 Pulse Ox 98 97 99 Oxygen Delivery Method Room Air Room Air 11/22/22 10:53 Temperature Temperature Source Pulse Rate 99 Respiratory Rate 18 Blood Pressure 107/55 L Blood Pressure Mean 72 Pulse Ox 98 Oxygen Delivery Method Room Air Weight Weight: 74.9 kg Body Mass Index (BMI) 23.6 Physical Exam Const alert, no apparent distress and average body habitus Constitutional Narrative: Pleasant elderly male, sitting comfortably in bed, alert. Appears to have mild cognitive delay and mild slurred speech, otherwise answering questions appropriately, no acute distress. General Appearance: cooperative and comfortable HEENT normocephalic, head/scalp atraumatic, hearing grossly normal bilaterally, nasal mucous membranes and turbinates normal and moist oral mucous membranes Eyes PERRL, EOMs intact bilaterally and conjunctivae normal Neck full ROM, no lymphadenopathy and supple Lymph Lymphatic: no lymphadenopathy noted Chest inspection of chest normal Resp normal respiratory effort, normal air movement, no use of accessory muscles and clear to auscultation bilaterally Cardio regular rate, regular rhythm, no murmurs and peripheral pulses 2+ throughout GI normal to inspection, nondistended, normoactive bowel sounds, soft to palpation,non-tender and non-distended Back/Spine normal ROM Extremity normal to inspection, full ROM and no pedal edema Skin no rashes or lesions noted Neuro moves all extremities and no focal motor deficits Sensorium / Orientation: awake and alert Motor Exam: strength 5/5 throughout Psych mental status grossly normal Results Lab / Micro Data 11/22/22 10:35 11/22/22 10:35 Labs: Laboratory Results - last 24 hr 11/22/22 10:35: WBC 9.9, RBC 4.00 L, Hgb 12.1 L, Hct 38.1 L, MCV 95.3 H, MCH 30.3, MCHC 31.8 L, RDW Std Deviation 44.0 H, RDW Coeff of Sara 12.6, Plt Count 298, MPV 10.5, Immature Gran % (Auto) 0.200, Neut % (Auto) 70.3 H, Lymph % (Auto) 18.5 L, Branch % (Auto) 9.3, Eos % (Auto) 1.1, Baso % (Auto) 0.6, Absolute Neuts (auto) 6.9, Absolute Lymphs (auto) 1.82, Nucleated RBC % 0, PT 13.7, INR 1.1, APTT 25.5, Sodium 139, Potassium 3.9, Chloride 105, Carbon Dioxide 26.0, Anion Gap 8, BUN 29 H, Creatinine 1.35 H, Estim Creat Clear Calc 53.32, Est GFR (MDRD) Af Amer 67, Est GFR (MDRD) Non-Af 56 L, BUN/Creatinine Ratio 21.5 H, Glucose 149 H, Calcium 9.3, Troponin I High Sens [address] 11/22/22 10:23 IMPRESSION: 1. Old infarcts in the left frontoparietal and right occipital lobes. 2. No acute intracranial process. 3. Chronic involutional changes of the brain. 4. If symptoms persist, MRI of the brain is recommended. Electronically Signed: Renato Jenkins MD at 11:25 EDT , Chest X-Ray 11/22/22 10:23 IMPRESSION: No interval change. No active or acute cardiopulmonary disease. Electronically Signed: Houston Paz MD at 11:06 EDT , Assessment & Plan Assessment/Plan (1) Dysarthria: PLAN: Plan Patient is a 71-year-old male with history of left MCA CVA s/p tenecteplase withhemorrhagic conversion and thrombectomy in 03/2021 with no residual deficits, DVTof RLE s/p IVC filter placement, history of dysphagia, HFrEF, type 2 diabetes and mild developmental delay who presented to [facility] ED on 11/22/2022 with new onset weakness and slurred speech. 1. New onset weakness and slurred speech, CVA rule out, history of CVA Patient lives at home on his own, independent with ADLs per family and friends. Friend brought him to the ED on morning of 11/22 because he was slurring his speech, dropped his coffee mug and reported hand weakness, and generally was notacting his normal self. NIHSS score of [address] head without contrast negative. Patient notably has history of left MCA CVA with hemorrhagic conversion after tenecteplase administration and thrombectomy back in 03/2021, see H&P for further details. ? Admit under observation status to PCU. Stroke protocol orders placed. MRI brain without contrast, echo, lipid panel, A1c orders placed. PT/OT/case management consulted. Speech therapy also consulted for history of dysphagia and concern for cognitive impairment as noted below. 2. HFrEF Diagnosed in 03/2021 during hospital admission for acute CVA. Echo done at that time showed an EF of 45%, mild LVH, no valvular abnormalities, no intracardiac shunting seen. Cardiology followed on that admission, patient was started on aspirin, statin, lisinopril and beta-erika. Patient reports adherence to his medications at home. Notably had lipid panel done in 04/2022 that showed a totalcholesterol of 121, LDL 43, HDL 60, triglycerides 92. Not on home diuretics, appears euvolemic on admission. ? Repeat echo ordered as above. Continue home medications. Monitor. 3. History of mild developmental delay, concern for cognitive impairment Difficult to find if patient has history of significant developmental delay. Onmy interview with patient, he is answering most questions appropriately but appears to have some cognitive slowing and mildly slurred speech. Unclear on what patient's baseline is. However, according to family and friends patient isindependent at home and does his own grocery shopping, finances, etc. Per neurology office note from [facility] from 12/2021, patient apparently hadno cognitive impairment on testing but unclear of what testing this was. ? PT/OT/case management consulted. Speech therapy consulted for cognitive evaluation as well. 4. History of dysphagia Was reported after patient's previous CVA. Patient currently reports no issues with difficulty swallowing with regular diet at home. Denies any issues with swallowing currently. ? Speech therapy consulted as above. 5. History of DVT s/p IVC filter placement Patient was found to have a RLE DVT during previous hospitalization for stroke in 2021. Anticoagulation was contraindicated at that time due to his intracranial bleed. Had IVC filter placed on 04/04 at outside hospital. Difficult to find further records after this, unclear if IVC filter remains in place at this time. ? No concern for DVT/PE at this time. Monitor. Chronic medical conditions: ? Type 2 diabetes: Apparently had A1c of 14 when diagnosed with a stroke in 2021. Last two A1c results are 6.1% in 10/2021 and 6.0% in 04/2022. On home metformin 1000 mg twice daily. Sliding-scale insulin while inpatient. Repeat A1c ordered. DVT prophylaxis: SCDs CODE STATUS: Full code, unverified Expected disposition: Home, 1 to 2 days Total clinical time spent by myself addressing the patient's medical issues, reviewing all the data, and collaborating with patient's care team: 55 minutes. Charges/Coding Visit Charges Inpatient E&M: 81403 Init Hosp L2 11/22/22 1859 <Electronically signed by Jerod Cavazos DO> Cosigner Signature (if applicable): CC: Dr. Jerod Cavazos DO; Madhavi Chaudhry DO~ Signed [facility] Work Phone: 1(155) 939-297010-17-2023 Discharge summary Author Cristhian Carlos [facility] November 22, 2022 3:27pm Note Date/Time November 22, 2022 1 0:40am [facility] Medical Records Department [address] [place] [address] Emergency Department Summary 11/22/22 MR#: [id number] Acct: [id number] Name: GUSTAVO PATTON Rep #:[id number] : 1950 71 From: Cristhian Taylor PCP: Madhavi Chaudhry DO Status:ADM I NO Location: ICU CVICU20 1-1 HPI History of Present Illness Chief Complaint: Weakness Informant: patient and other (DPOA friend) Narrative Narrative: Presents here with his friend who is DPOA stating there is 2 other individuals that are power of litigation attorney his daughter is in [place]. Concerns for increasing weakness started yesterday. States 7 AM he dropped his coffee mug, he did not go to work. Today symptoms with slurring speech that is worsening. He had a stroke over a year ago reporting no residual deficits. He is not acting his normal self. He is independent at home. He is on aspirin. Denies headache. Also this morning's drinking and water was coming out of his right side. [facility] Medical History Diabetes Stroke/cerebrovascular accident Home Medications aspirin 81 mg PO/SL DAILY 06/15/21 [History Last Taken Unknown] atorvastatin 40 mg PO/SL QHS 06/15/21 [History Last Taken Unknown] lisinopril 2.5 mg PO/SL DAILY 06/15/21 [History Last Taken Unknown] metformin 1,000 mg PO/SL BID 06/15/21 [History Last Taken Unknown] metoprolol succinate 25 mg PO/SL DAILY 06/15/21 [History Last Taken Unknown] senna-docusate sodium 8.6 mg PO/SL DAILY 06/15/21 [History Last Taken Unknown] loratadine 10 mg PO/SL DAILY 11/09/21 [History Last Taken Unknown] multivitamin 1 cap PO DAILY 12/26/21 [History Last Taken Unknown] Allergy/AdvReac Type Severity Reaction Status Date / Time No Known Allergies Allergy Verified 11/22/22 12:27 Social History Smoking Status: Never smoker [facility] ED Constitutional Constitutional ED: Denies chills, fever(s) or sweats Eyes Eyes: Denies change in vision ENT ENT ED: Denies dysphagia or sore throat Cardiovascular Cardiovascular: Denies chest pain, leg edema, palpitations or racing heartbeat Respiratory/Chest Respiratory/Chest: Denies cough, dyspnea or dyspnea on exertion Gastrointestinal Gastrointestinal: Denies abdominal pain, diarrhea, nausea or vomiting Genitourinary Genitourinary ED: Denies dysuria, hematuria or urinary frequency Musculoskeletal Musculoskeletal: Denies back pain, extremity pain or neck pain Integumentary Reports wounds; Denies rash Neurologic Neurologic: Reports weakness and other Details: Slurred speech ; Denies headache(s) or paresthesias EXAM Physical Exam Const Vital Signs: 11/22/22 09:48 11/22/22 10:36 11/22/22 10:23 Temperature 98.7 F Temperature Source Oral Pulse Rate 100 99 Respiratory Rate 21 H 19 H Blood Pressure 145/87 H 125/77 H Blood Pressure Mean 106 93 Blood Pressure Source Blood Pressure Position Blood Pressure Location Pulse Ox 98 97 99 Oxygen Delivery Method Room Air Room Air 11/22/22 10:53 11/22/22 11:47 11/22/22 12:50 Temperature 97.6 F L Temperature Source Temporal Pulse Rate 99 95 91 Respiratory Rate 18 16 18 Blood Pressure 107/55 L 100/80 144/107 H Blood Pressure Mean 72 86 119 Blood Pressure Source Monitor Blood Pressure Position Semi-Fowlers Blood Pressure Location Right Arm Pulse Ox 98 98 96 Oxygen Delivery Method Room Air Room Air Room Air Positive well nourished and well developed Constitutional Narrative: Patient with stuttering speech on exam, this is not his baseline. General Appearance ED: well developed and NAD HEENT Reports moist mucous membranes normocephalic and atraumatic Eyes PERRL, EOMs intact bilaterally and conjunctivae normal General Eye ED: Yes normal appearance of both eyes Neck no lymphadenopathy and supple General: Negative for tenderness Chest Wall Chest: Negative for tenderness Resp normal respiratory effort and normal air movement Effort and Inspection: symmetric chest movement; Negative for respiratory distress Cardio regular rate, regular rhythm and no murmurs Peripheral Pulses: pulses 2+ throughout GI normal to inspection, nondistended, normoactive bowel sounds and non-tender Palpation: Negative for guarding or rebound tenderness present Back/Spine no CVA tenderness and no thoracic nor lumbar tenderness Extremity normal to inspection General Extremety ED: Negative for edema or tenderness General Extremity: Negative for edema Neuro oriented x3 and no sensory deficits noted Neuro Narrative: NIH of 4 for dysarthria and language, paresthesia left arm and leg, minimal right lip droop. In addition did have weakness left manager financial strength compared to the right side. Sensorium / Orientation: awake and alert Skin no rashes or lesions noted and no wounds NIHSS NIHSS Initial: 1a Level of Consciousness: 0 1b LOC Questions (Score 2 if aphasic/stupor): 0 1c LOC Commands (Only score 1st attempt): 0 2 Best Gaze (If aphasic, use reflexive mvmts.): 0 3 Visual: 0 4 Facial Palsy: 1 5 Motor Arm Right (UN = amputation/fusion): 0 5 Motor Arm Left: 0 6 Motor Leg Right: 0 6 Motor Leg Left: 0 7 Limb ataxia (Only + if out of proportion): 0 8 Sensory (Aphasia/stupor=0 or 1, coma=2): 1 9 Best Language: 1 10 Dysarthria (mute, coma=2, intubated=UN): 1 11 Extinction and Inattention (only scored if +): 0 Total Score: 4 MDM MDM MDM Narrative Medical decision making narrative: Interventions / MDM: Differential diagnosis: CVA, left arm and leg paresthesia, dysarthria Diagnosis considered but do not suspect: N/A My EKG interpretation: Sinus rate of 104, no ST or T wave changes. Imaging independently reviewed and interpreted by myself: CT brain: No acute process also read by radiology. External documents reviewed: N/A Test considered but not ordered:N/A ED course: Patient having neurological deficits concerning for stroke symptoms. NIH of is a 4, however symptoms greater than 24 hours. Is not a TNK candidate. Stroke work-up initiated, will plan for admission. CT scan negative. Labs are able. EKG sinus rhythm. Discussed with maiyistDr. Cavazos for admission to PCU. Re-evaluation: stable Disposition discussed with patient/family/significant other: Patient Case discussed with consulting clinician: Hospitalist This note was generated with [employer] dictation software. It may contain incorrectwords, spelling, and punctuation that were not noted in checking the note beforesigning. Lab Data Attestation: I reviewed the patient's lab results. Labs: Laboratory Results - last 24 hr 11/22/22 10:35 WBC 9.9 RBC 4.00 L Hgb 12.1 L Hct 38.1 L MCV 95.3 H MCH 30.3 MCHC 31.8 L RDW Std Deviation 44.0 H RDW Coeff of Sara 12.6 Plt Count 298 MPV 10.5 Immature Gran % (Auto) 0.200 Neut % (Auto) 70.3 H Lymph % (Auto) 18.5 L Branch % (Auto) 9.3 Eos % (Auto) 1.1 Baso % (Auto) 0.6 Absolute Neuts (auto) 6.9 Absolute Lymphs (auto) 1.82 Nucleated RBC % 0 PT 13.7 INR 1.1 APTT 25.5 Sodium 139 Potassium 3.9 Chloride 105 Carbon Dioxide 26.0 Anion Gap 8 BUN 29 H Creatinine 1.35 H Estim Creat Clear Calc 53.32 Est GFR (MDRD) Af Amer 67 Est GFR (MDRD) Non-Af 56 L BUN/Creatinine Ratio 21.5 H Glucose 149 H Calcium 9.3 Troponin I High Sens 23 Radiography Diagnostic Testing: Clinical Impression(s) from Imaging Studies Brain CT 11/22/22 10:23 IMPRESSION: 1. Old infarcts in the left frontoparietal and right occipital lobes. 2. No acute intracranial process. 3. Chronic involutional changes of the brain. 4. If symptoms persist, MRI of the brain is recommended. Electronically Signed: Renato Jenkins MD at 11:25 EDT , Chest X-Ray 11/22/22 10:23 IMPRESSION: No interval change. No active or acute cardiopulmonary disease. Electronically Signed: Houston Paz MD at 11:06 EDT , Discharge Plan Dx/Rx/DC Orders Clinical Impression: Paresthesia, Dysarthria, CVA (cerebrovascular accident) Disposition Disposition: Acute Care Hospital [facility] Discharge Date/Time: 11/22/22 12:54 What to do if you have Problems For any increased pain, shortness of breath, bleeding, nausea or vomiting, chestpain, or any unexpected problems, contact your Primary Care Provider. Call [facility] ([phone]) or report to the closest Emergency Room. Call 911 if necessary. 11/22/22 1527 <Electronically signed by Cristhian Taylor> Cosigner Signature (if applicable): CC: Madhavi Chaudhry DO ~ Signed [facility] Work Phone: 1(290) 958-918708-03-2023 NoteHNO ID: [id number] Author: Cathleen Goel OT/L Service: ? Author Type: Occupational Therapist Type: Progress Notes Filed: 09/08/2022 11:50 AM Note Text: 09/08/2022 [facility]ERAPY OCCUPATIONAL THERAPY DISCONTINUANCE OF CARE Plan of Care Period: Start of Care Date: 02/11/22 Last Visit Date: 02/16/2022 Therapy Program: Patient did not return for follow up care as planned. Please refer to last visit note for interventions provided for this episode of care. Assessment: Unable to formally assess goal achievement. Reason for Discontinuation of Care: Patient has not returned to therapy or scheduled additional follow-up appointments. Cathleen Goel, /[facility]06-02-2023 Miscellaneous Notes* Telephone Encounter - Celina Marshall LPN - 07/08/2022 7:36 AM EDT Patient's request for medication is as follows: Requested Prescriptions Pending Prescriptions Disp Refills metoprolol succinate ER (TOPROL XL) 25 mg 24 hr tablet [Pharmacy Med Name: METOPROLOL SUCC ER 25 MGTAB] 30 tablet 1 Sig: TAKE 1 TABLET BY MOUTH EVERY DAY Last seen 05/12/2021. Follow up scheduled for 08/26/2022. Prescription(s) as above. Please process accordingly. Celina Marshall LPN [facility] Miscellaneous Notes* Telephone Encounter - Celina Marshall LPN - 05/27/2022 7:16 AM EDT Patient's request for medication is as follows: Requested Prescriptions Pending Prescriptions Disp Refills atorvastatin (LIPITOR) 40 mg tablet [Pharmacy Med Name: ATORVASTATIN 40 MG TABLET] 90 tablet 3 Si TABLET BY ORAL/FEEDING TUBE ROUTE DAILY AT BEDTIME. Last seen 05/12/2021. Follow up scheduled for 08/26/2022. Prescription(s) as above. Please process accordingly. Celina Marshall LPN documented in this encounterKettering [facility]04-14-2023 Miscellaneous Notes* Telephone Encounter - Liliana Batista - 05/20/2022 9:08 AM EDT Pt has been scheduled for follow up with Dr. Marin on 08/26/2022 at 10am. I LVM and sent reminder letter. Thank you, Liliana Batista * Telephone Encounter - Celina Marshall LPN - 05/20/2022 7:09 AM EDT Last seen 05/12/2021. Patient missed appointment scheduled for 08/11/2021. Please call patient withover due appointment. Celina Marshall LPN documented in this encounterKettering [facility]04-14-2023 Miscellaneous Notes* Telephone Encounter - Celina Marshall LPN - 05/20/2022 7:07 AM EDT Patient's request for medication is as follows: Requested Prescriptions Pending Prescriptions Disp Refills metoprolol succinate ER (TOPROL XL) 25 mg 24 hr tablet [Pharmacy Med Name: METOPROLOL SUCC ER 25 MGTAB] 30 tablet 1 Sig: TAKE 1 TABLET BY MOUTH EVERY DAY Last seen 05/12/2021. Patient missed appointment scheduled for 08/11/2021. Message sent to clericalrequesting they call patient with over due appointment. Prescription(s) as above. Please process accordingly. Celina Marshall LPN documented in this encounterKettering [facility]02-28-2023 Miscellaneous Notes* Telephone Encounter - Kely Charles - 04/05/2022 4:45 PM EST Never received the letter. * Telephone Encounter - Kely Charles - 03/31/2022 3:24 PM EST Dorinda from [facility] calling requesting the provider to review a letter. The letter isn't in the patient's chart. Requested the letter be faxed to the office. We haven't received the letter. Dorinda's phone# [phone] documented in this encounterKettering [facility]02-09-2023 Discharge summary Author Stephani Vila [facility] June 09, 2022 2:40pm Note Date/Time March 17, 2022 1 0:30am [facility] [address] [place] [address] / REHABILITATION SERVICES DISCHARGE SUMMARY MR#: [id number] Acct: [id number] Name: GUSTAVO PATTON Rep #: [id number] : 1950 71 From: Cyndi Durant. T, OCS Referring Dr.: Dr. Jese Manley MD Status: REG RCR Insurance: MEDICARE PART A B AAR It has been my pleasure to treat GUSTAVO PATTON referred by Dr. 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 Discharge Date: 03/17/22 Please see the following information for a summary of their discharge status. Subjective: Doing well. Ready for d/c % Improvement: 40 Objective/Function: POSTURE: mild forward posture. GAIT: reciprocal pattern. MMT: quads/hams/hip 4/5 ,ankle Goal 1:: Patient to be I with HEP Goal 2:: Patient improve 30sec sit-stand by 5 reps to improve function Goal 3:: Patient to improve LFES score by 5 -10 points to improve function and gait Goal 4:: Patient to improve CATSIBE by 5 points to improve balance Goal 5:: Patient to demonstrate 50% improvement with increase function Plan: D/C TO HEP Discharge Comments: HEP If there are questions or concerns regarding this patient's physical therapy, please feel free to call me at [phone]. Thank you for the referral of thispatient. Sincerely, Stephani Vila, PT, Cert MDT, OCS Balance/Gait/Functional tests - Balance/Special Test Scores Functional Gait Assessment Score: 30 % Disability: 0 CATSIB Score (Max score 120 seconds): 100 Lower Extremity Functional Score: 62 30 Second Chair Rise Test Seconds: 12 <Electronically signed by Stephani Vila PT, Cert. MDT, OCS> 06/09/22 1440 CC: Dr. Cruzito Fraser MD; Dr. Jese Manley MD ~ JLA Signed [facility] Work Phone: [phone]) 318-424501-11-2023 History of Present illness Narrative* Cathleen Goel, OT/L - 02/16/2022 3:42 PM EST Episode Visit Count: 2 Therapist That Will Accept/Oversee The Plan Of Care: Emery Goel Start of Care Date: 02/11/22 Onset Date: 04/01/21 (stroke occurred while 1 week in acute hospital followed by 2-3 weeks at [facility] the 2 weeks at long term facility in [place] prior to returning home; had outpatient [facility] [place]; now has nurse who comes weekly to check meds and vitals) REHABILITATION AND SPORTS THERAPY OCCUPATIONAL THERAPY ON-ROAD DRIVING ASSESSMENT SUBJECTIVE: Gustavo indicated that he was a bit anxious as he has not driven on the public roadway for almost a year and would prefer to drive his own vehicle although he said he understood while he was not able to. OBJECTIVE MEASURES WITH LEVEL OF FUNCTION: This therapist met patient at his apartment where the drive started and ended from. 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 ENVIRONMENT: Location: Residential, Urban, Rural, Parking Lot, and Multi-[address]; not close to interstate so did not complete same Traffic: Light and Moderate Weather: Overcast Road Conditions: Dry Mileage driven: 18.7 miles MODIFICATIONS: Steering Device: NA Turn Signal: Standard Hand Controls: NA Mirrors: Standard Cushions: None PHYSICAL PERFORMANCE: Use of Controls: No Deficits noted Physical Limitations: None OBSERVATION SKILLS: No deficits noted in this area. GAP ACCEPTANCE: No deficits noted in this area ANABELLA CHANGING/MERGING: No deficits noted in this area LIMIT LINE/STOPPING: No deficits noted in this area. REGULATION OF SPEED: No deficits noted in this area. PATH OF TRAVEL: No deficits noted in this area SIGNALING: No deficits in this area. PARKING: satisfactory GENERAL AWARENESS: he demonstrated functional skills throughout the drive while very familiar with the roadways driving into [place] where he does much of his errand running including shopping and eating while this is the closest larger city; he demonstrated consistent use of defensive driving skills while no suggestions for improvements or changes required TREATMENT: On Road Driving Assessment: completed the behind the wheel assessment this date ASSESSMENT: Gustavo Patton tolerated today's treatment visit well. He demonstrated excellent functional skills throughout the drive while no concern issues noted. 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 Due to the complex nature of the safe operation of a motor vehicle, and considering the demands of integrating changing environmental conditions, and visual, cognitive, and physical skills, successful completion of this program is not a guarantee of safe driving in the future. RECOMMENDATION: BASED ON GUSTAVO'S OVERALL PERFORMANCE INCLUDING ON THE BEHIND THE WHEEL PORTION, THIS THERAPIST FEELS CONFIDENT IN RECOMMENDING THAT HE IS ABLE TO RETURN TO SAFE OPERATION OF A MOTOR VEHICLE WITH THE FOLLOWING RESTRICTIONS: RETURN TO LOCAL DRIVING AND SHORTER LONG DISTANCE DRIVING ONOWN WHILE AVOIDING LONGER DISTANCE DRIVING (>3 HOURS) CURRENTLY UNLESS HAS OTHER LICENSED CHEF ASSISTANT WITH HIM TO SHARE THE DRIVING; DO NOT DRIVE WHEN NOT FEELING WELL; AVOID DRIVING WHEN EXTREME WEATHER CONDITIONS; DUE TO LANGUAGE DEFICITS, SHOULD ALWAYS HAVE LANGUAGE CARD WITH HIM SO HE CAN PROVIDETHAT TO SOMEONE IN THE CASE OF EMERGENCY SO THEY WOULD HAVE FAMILY CONTACT INFORMATION IF NEEDED. This therapist will contact his sister Renate who is DPOA to discuss results and recommendations with her. Billing: Total Treatment Time Minutes (timed/untimed) 60 minutes Drivers Follow Up per 60 min (88092): 1:1 time 60 min Total time: 60 minutes BIBI Louis, CDRS, CDI Certified Sawmill Worker Epic Cupid Analyst documented in this encounterKettering [facility]01-06-2023 History of Present illness Narrative* BIBI Yo - 02/11/2022 3:48 PM EST Episode Visit Count: 1 Therapist That Will Accept/Oversee The Plan Of Care: Emery Goel Start of Care Date: 02/11/22 Onset Date: 04/01/21 (stroke occurred while 1 week in acute hospital followed by 2-3 weeks at [facility] the 2 weeks at long term facility in [place] prior to returning home; had outpatient [facility]; now has nurse who comes weekly to check meds and vitals) Patient Identified by Name and Date of : Yes REHABILITATION AND SPORTS THERAPY OCCUPATIONAL THERAPY INSTRUMENTAL ADL AND COMMUNITY MOBILITY EVALUATION SUBJECTIVE: Gustavo Patton is a 71 year old male seen today for OT functional community mobility assessment due to having stroke (L MCA) on 04/01/21 with ongoing speech deficits resulting. 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 He lives on his employer's property in an set of apartments they own and has for many years so verbalized that he has been driving his vehicle on that property for several monthsbut not on the public roadways. He has lives very independently throughout his adult life while sisters' all in contact with him but no direct support needed in the past. [place] and can walk to the [employer] and [employer]. He has 3 sisters while main support lives in [place] and checks in often while he has one sister in [place] who he sees occasionally. He does have a motorcycle that he would ride on occasion in the past and plans to ride again in the future as appropriate. His sister, Georgina, that was with him verbalized that she does not think he is himself while seems anxious at times and does not always appear to understand what is said to him in addition to some expressive deficits thatthis therapist also observed. Functional Limitations: nothing Prior Level of Function: Required assistance Home Environment Patient Lives With: Self/Alone Assistance Available: None (has nurse that comes in weekly to check vitals and set up his medications; no family close; some friends nearby) Home Type: Apt/Condo Entry To Home: Stairs Laundry: in basement Transportation: Car;Travels as a passenger (not currently driving on public roadways) Patient Goals: to return to driving on public roads Intake Information: Prescription present Previous Treatment: Speech Therapy ;Acute Hospital ;Acute Rehab ;SNF ;Home Therapy Falls Interview: No positive findings with falls interview Relevant History Past Relevant Medical Conditions: Cerebral Vascular Accident;Diabetes;Hypertension Highest Level of Education: High School Preferred Language: Swedish Right or Left Handed: Right Employment: Retired (was truck loader overhead crane at time of stroke but has since retired) Recreation / Current Exercise: some walking to [employer] and [employer] but otherwise no exercise Hobbies / Interests: watching TV, will look things up on his computer, used to be active in sports card collecting but not much now Home Environment Patient Lives With: Self/Alone Assistance Available: None (has nurse that comes in weekly to check vitals and set up his medications; no family close; some friends nearby) Home Type: Apt/Condo Entry To Home: Stairs Laundry: in basement Transportation: Car;Travels as a passenger (not currently driving on public roadways) Activities of Daily Living: Independent Instrumental Activities of Daily Living: Independent and nurse comes in weekly to set up medications, check his vitals; he is not driving in the community currently and can walk for some things but relies on others to assist with larger shopping needs Driving History: 53+ 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 Violation HX: none 5 Yr. MVA HX: none Handicap Parking Placard: NO 1. Gustavo Patton self report indicates an awareness of: some ongoing communication deficits. 2. Gustavo Patton expressed confidence regarding driving at night/decreased light conditions, in congested traffic, on the interstate, on long trips, to back up, to make left turns , and when drivingalone. 3. Gustavo Patton expressed no concerns regarding driving. OBJECTIVE MEASURES WITH LEVEL OF FUNCTION: SENSORIMOTOR ASSESSMENT: Hand dominance: Right Level of Function Relevant to I ADL, Community Mobility, and Driving: Right UE: Sufficient Left UE: Sufficient Community Organization Worker: Sufficient Right LE: Sufficient Left LE: Sufficient Sitting Balance: Sufficient Head / Neck: Sufficient Ambulation: Sufficient Transfers: Sufficient Loading of Device: NA ASSESSMENT OF SENSORIMOTOR FUNCTION: Compatible with Driving VISION SCREENING: Vision Vision Deficits: Wears corrective lenses Corrective lenses: reading glasses only; had formal eye exam about 6 months ago and is due to go again 03/16/22 Corrective Lenses: None Distant Acuity: Binocular: 20 / 30-1 Nighttime Glare: Right: 20 / 70-1 Left: 20 / 50-1 Color Perception: pass Depth Perception: Fail Contrast Sensitivity: severely impaired both eyes Peripheral Vision: Within legal limits for driving Right Eye: Acknowledged all stimuli. Left Eye: Acknowledged all stimuli. Pursuits: WNL Saccades: WNL Convergence: WFL Nystagmus: Not Apparent Diplopia: No complaints Strabismus: No OU Cataracts: No OU Glaucoma: No. OU Other Eye Conditions / Diseases Reported: he appeared to verbalize that he may have had some visionissues at the time of the stroke but he was not clear on this while language deficits likely inhibiting his comprehension at times and his responses; he does wear glasses for reading ASSESSMENT OF VISUAL FUNCTION: functional with regards to the [place] BM requirements however some concerns related to decreased stereo depth perception and contrast sensitivity deficits COGNITIVE / PERCEPTUAL ASSESSMENT: SHORT BLESSED TEST Short Blessed Test 1. What Year Is It Now?: Correct 2. What Month Is It Now?: Correct 3. What Time is it? (WIthin 1 hour): Correct 4. Count Aloud Backwards 20 to 1 (Errors): 0 5. Months of the Year in Reverse Order (Errors): 1 6. Memory Phrase (Errors) : 2 Short Blessed Final Score: 6 Short Blessed Test Scorin-8; Normal to minimal impairment 9-19; Moderate impairment 20-28; Severe impairment [email or web address] Immediate Recall: Below normal @ 0/7 digits while this likely related to both receptive and expressive language deficits Visual Scanning/Attention: [place] Making Part B (sec): 183 sec 50th percentile norm for age group: 60-69; Part A: 48 seconds, Part B: 119 seconds Heidy Clock Drawing Test: Gustavo Patton correctly included 6/8 criteria for this test. He failed to include or correctly place: the numbers equally, or nearly so, from each other the numbers equally spaced, or nearly so, from the edge of the [place] According to The Physician's Guide to Assessing and Counseling Older Drivers, 2003, any incorrect element in the Heidy Clock Scoring signals a need for intervention. Motor Free Visual Perception Test: MVPT Total Score: 33 MVPT Processing time (seconds): 6.5 Norms: 50-69 y/o: Raw Score 32-36; Processing Time 3.0-5.4 seconds +/- .5 seconds Visual Inattention / Unilateral Neglect: Not Apparent ASSESSMENT OF COGNITIVE / PERCEPTUAL FUNCTION: concerns include language deficits which appear to be both receptive and expressive in nature in addition to slow performance on Trailmaking B which could also have been related to language deficits; under normal for average visual processing speed on visual perceptual screening for age [place] Sawmill Worker Simulator: Simple Brake Reaction Time: Average Distance: 59.3 feet (Normal = 60 feet) R foot only pedal operation method Education: Education Learning Preferences: Explanation Barriers: Communication Deficit Learning/educational needs: Safety;Plan of Care Education Provided: Yes, see treatment interventions for education provided Education Provided To: Patient;Family (sister that came to the appointment with him) Education Mode/Type: Explanation/Discussion Response to Education/Teach Back: States/Identifies (Provided him with language card so that he could have contact information in his wallet with explanation that he has language challenges in the event of emergency) TREATMENT: Evaluation Self-Prison Management: 1: refer to documentation in this report 2: provided support and education to patient and his sister Skilled Intervention: Skilled judgment in the selection of proper modification for activity of daily living/home management based on clinical presentation, deficits, and needs. Educated the patient regarding recommendations and provided written instruction to facilitate compliance. Reviewed patient specific diagnosis in relation to activities of daily living/home management. Activity progression based on professional judgement. 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 Due to the complex nature of the safe operation of a motor vehicle, and considering the demands of integrating changing environmental conditions, and visual, cognitive, and physical skills, successful completion of this program is not a guarantee of safe driving in the future. ASSESSMENT OF INSTRUMENTAL ADL AND COMMUNITY MOBILITY: Gustavo Patton presents with the diagnosis of CVA. He presents with impairments of ongoing expressive/receptive language deficits, decreased B glare far acuity, severe decrease for B contrast sensitivity, lacking stereo depth perception, slowerthen normal for age on visual processing speed on visual perceptual screening, decreased auditory attention skills although likely related to language deficits, slow performance on Trailmaking B for alternating attention which could be related to language deficits also, has limited close in proximity support from family although does have friends who he indicated help him out. He will benefit from skilled occupational therapy services to complete functional task assessment/behind the wheel performance to determine appropriate recommendations. RECOMMENDATIONS: ADL/IADL Recommendations: ongoing support for medications should be provided and family monitoring as able Driving Recommendations: REFRAIN FROM DRIVING OUTSIDE OF DRIVERS REHABILITATION WITH BEHIND THE WHEEL ASSESSMENT SCHEDULED FOR 02/16/22 WITH RESULTS AND RECOMMENDATIONS TO FOLLOW Recommended Complete Eye Exam: as indicated by eyeglass cutter Prognosis: Good Good due to: current objective clinical presentation;good overall health status Goals for Episode of Care created on 02/11/22 through 02/18/22 Patient will complete clinical training and/or testing at [place] level in preparation for returning to driving. Patient will complete functional mobility task with good safety awareness during behind the wheel assessment. Patient will return to/continue independent driving with or without restrictions. Planned Interventions, Frequency, and Duration: Current Frequency: 1 visit Duration: 1 visit Total Number of Visits Planned: 1 Patient to be see for Sawmill Worker rehab evaluation PLAN FOR NEXT VISIT: completion of the behind the wheel session Patient demonstrates good understanding of plan of care and treatment. The above goals and plan of care were discussed and agreed upon by patient/family. Billing: Total Treatment Time Minutes (timed/untimed) 120 minutes Evaluation - Moderate Complexity (95319) Self Care / Home Management (76057): 1:1 time: 60 minutes (4 units: 53-67 mins) Total time: 120 minutes Cathleen Goel OT/[place], CDRS, CDI Certified Sawmill Worker Epic Cupid Analyst documented in this encounterKettering Health [facility] Campus12-09-2022 Miscellaneous Notes* Telephone Encounter - Obinna Johansen LPN - 01/14/2022 11:11 AM EST [facility] called and requested order for PT for pt be faxed to them FAX: [phone]. Identified pt with name and date of . Done. Obinna Johansen LPN documented in this encounterKettering Health [facility] Campus12-08-2022 NoteHNO ID: [id number] Author: Vita Colin MD Service: ? Author Type: Physician Type: Progress Notes Filed: 01/13/2022 10:55 AM Note Text: Gustavo Patton is a 71 year old male presents for evaluation of DVT. [facility] which we discussed that I am not, but he would have to go to [facility] [facility] [place]. When talking to him, he has fairly limited understanding of what is going on and why he is here. His biggest question was if I was going to help him get a drivers licences and who he needed to see to get that. 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 There is suboptimal visualization of the right calf veins. Possible short segment of nonocclusive thrombus versus slow flow within the mid left femoral vein. He had a repeat US done 12/29/21 that showed: RIGHT SIDE - DEEP VEINS Negative for acute deep vein thrombosis. 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 Chronic occlusion of distal femoral vein. Chronic post-thrombotic change in the popliteal vein. Chronic occlusion. The left side was negative. We discussed the natural history of DVT as well as typical treatment and that DVT can resolve completely, partially, or not at all, but that once they are out of the actue phase, they tend to be less dangerous as far as PE goes. He should use compression and elevation for symtom control. Though he really has minimal evidence of leg swelling. He does not appear to be on anticoagulation currrently, only asa. SYMPTOMS: asymptomatic HISTORIES: PAST MEDICAL HISTORY Diagnosis Date Diabetes mellitus (HCC) Diastolic heart failure (HCC) DVT of lower extremity (deep venous thrombosis) (HCC) Dysphagia HTN (hypertension) Primary cardiomyopathy (HCC) Stroke (cerebrum) (HCC) PAST SURGICAL HISTORY Procedure Laterality Date NONE Social History Tobacco Use Smoking status: Never Smokeless tobacco: Never Substance Use Topics Alcohol use: Never Drug use: Never MEDICATIONS: Current Outpatient Medications Medication Sig metoprolol succinate ER (TOPROL XL) 25 mg 24 hr tablet Take 1 tablet by mouth once daily. lisinopril 2.5 mg tablet Take 1 tablet by mouth once daily. atorvastatin (LIPITOR) 40 mg tablet 1 tablet by ORAL/FEEDING TUBE route daily at bedtime. aspirin 81 mg chewable tablet 1 tablet by ORAL/FEEDING TUBE route once daily. metFORMIN (GLUCOPHAGE) 500 mg tablet TAKE 1 TAB TWICE DAILY FOR 2 WEEKS, THEN TAKE 2 TABS TWICE DAILY insulin glargine (LANTUS SOLOSTAR, BASAGLAR KWIKPEN) 100 unit/mL (3 mL) Inject 10 Units subcutaneously daily at bedtime. (Patient not taking: Reported on 01/13/2022) insulin lispro (HUMALOG KWIKPEN) 100 unit/mL Inject 3 Units subcutaneously w MEALS. (Patient not taking: Reported on 01/13/2022) Current Facility-Administered Medications Medication Dose Route Frequency perflutren lipid microspheres 1.3 mL in NaCl (PF) 0.9% 10 mL injection (DEFINITY) INTRAVENOUS DIRECTED PRN ALLERGIES:ALLERGIES No Known Allergies REVIEW OF SYSTEMS: All other ROS: negative PHYSICAL EXAM: General appearance: healthy, well nourished, in no acute distress. Skin: No lesions, rashes or ulcerations; normal color and turgor. Pulmonary: breathing unlabored on RA Lower Extremities: Feet and toes warm Negative edema Negative Ulcers Good capillary refill Neuro: Awake, alert, and oriented., CN II-XII grossly intact. , sensation grossly in tact IMPRESSION: Pt with chronic DVT PLAN: No indication for surgical therapy Compression and elevation for symptom control. Follow up prn Vita Colin MD I spent 30 minutes in the visit, with more than 50% of the total [id number] time of the visit in counseling / coordination of care.[facility]12-08-2022 History of Present illness Narrative* Vita Colin MD - 01/13/2022 10:30 AM EST Gustavo Patton is a 71 year old male presents for evaluation of DVT. He was actually referred to vascular [facility], which we discussed that I am not, but he would have to go to [facility] When talking to him, he has fairly limited understanding of what is going on and why he is here. His biggest question was if I was going to help him get a drivers licences and who he needed to see toget that. 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 There is suboptimal visualization of the right calf veins. Possible short segment of nonocclusive thrombus versus slow flow within the mid left femoral vein. He had a repeat US done 12/29/21 that showed: RIGHT SIDE - DEEP VEINS Negative for acute deep vein thrombosis. 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 Chronic occlusion of distal femoral vein. Chronic post-thrombotic change in the popliteal vein. Chronic occlusion. The left side was negative. We discussed the natural history of DVT as well as typical treatment and that DVT can resolve completely, partially, or not at all, but that once they are out of the actue phase, they tend to be lessdangerous as far as PE goes. He should use compression and elevation for symtom control. Though he really has minimal evidence of leg swelling. He does not appear to be on anticoagulation currrently, only asa. SYMPTOMS: asymptomatic HISTORIES: PAST MEDICAL HISTORY Diagnosis Date Diabetes mellitus (HCC) Diastolic heart failure (HCC) DVT of lower extremity (deep venous thrombosis) (HCC) Dysphagia HTN (hypertension) Primary cardiomyopathy (HCC) Stroke (cerebrum) (HCC) PAST SURGICAL HISTORY Procedure Laterality Date NONE Social History Tobacco Use Smoking status: Never Smokeless tobacco: Never Substance Use Topics Alcohol use: Never Drug use: Never MEDICATIONS: Current Outpatient Medications Medication Sig metoprolol succinate ER (TOPROL XL) 25 mg 24 hr tablet Take 1 tablet by mouth once daily. lisinopril 2.5 mg tablet Take 1 tablet by mouth once daily. atorvastatin (LIPITOR) 40 mg tablet 1 tablet by ORAL/FEEDING TUBE route daily at bedtime. aspirin 81 mg chewable tablet 1 tablet by ORAL/FEEDING TUBE route once daily. metFORMIN (GLUCOPHAGE) 500 mg tablet TAKE 1 TAB TWICE DAILY FOR 2 WEEKS, THEN TAKE 2 TABS TWICE DAILY insulin glargine (LANTUS SOLOSTAR, BASAGLAR KWIKPEN) 100 unit/mL (3 mL) Inject 10 Units subcutaneously daily at bedtime. (Patient not taking: Reported on 01/13/2022) insulin lispro (HUMALOG KWIKPEN) 100 unit/mL Inject 3 Units subcutaneously w MEALS. (Patient not taking: Reported on 01/13/2022) Current Facility-Administered Medications Medication Dose Route Frequency perflutren lipid microspheres 1.3 mL in NaCl (PF) 0.9% 10 mL injection (DEFINITY) INTRAVENOUS DIRECTED PRN ALLERGIES:ALLERGIES No Known Allergies REVIEW OF SYSTEMS: All other ROS: negative PHYSICAL EXAM: General appearance: healthy, well nourished, in no acute distress. Skin: No lesions, rashes or ulcerations; normal color and turgor. Pulmonary: breathing unlabored on RA Lower Extremities: Feet and toes warm Negative edema Negative Ulcers Good capillary refill Neuro: Awake, alert, and oriented., CN II-XII grossly intact. , sensation grossly in tact IMPRESSION: Pt with chronic DVT PLAN: No indication for surgical therapy Compression and elevation for symptom control. Follow up prn Vita Colin MD I spent 30 minutes in the visit, with more than 50% of the total [id number] time of the visit in counseling / coordination of care. documented in this encounterK[facility]11-30-2022 Miscellaneous Notes* Telephone Encounter - Meg Cedillo LPN - 01/05/2022 1:31 PM EST Dorinda from [facility] calling said she had asked for copy of last office visit and has never gotten it. printed visit from 12/17/2021 and faxed to [phone] as requested. documented in this encounterKettering [facility]11-30-2022 Miscellaneous Notes* Telephone Encounter - Jese Manley Jr., MD - 01/05/2022 12:58 PM EST ----- Message from Alcira Elias PT sent at 01/03/2022 3:53 PM EST ----- Regarding: FW: driving eval Hi Dr Manley, Can you please change the order to OT (instead of PT) for the driving eval as we have OT's doing these assessments within [facility]. We will help get him scheduled accordingly. Thanks so much, Alcira Elias PT ----- Message ----- From: Gamaliel Regalado OTR/L Sent: 01/03/2022 1:18 PM EST To: Alcira Elias PT Subject: RE: driving eval I am doing well. Just been busy. Short of today where I have had 4 cancels. Miss you guys as well. As far as driving goes, [facility] the [facility] [place] [facility] [place] and then there is up in the [facility] a couple of places. The order will need to be for OT. In fact I think wherever he goes it is only OTs doing driving. As far as scheduling, he just needs to call here at [phone] or [facility] at [phone]. Let me know if you have any more questions. Jesus ----- Message ----- From: Alcira Elias, SILVERIO Sent: 01/03/2022 12:30 PM EST To: Gamaliel Regalado, OTR/L Subject: driving keenan Lee, How's it going? Hope you're doing well. We miss you around here. Hey I have a quick question - I have a patient on my schedule next Monday who was referred to PT for driving evriley. I see he lives in [place] so do you know if there would be anything closer for him? If not how does he get that scheduled with you? Do I need to have the Dr change the order to OT? Thanks, Alcira documented in this encounterKet[facility]11-29-2022 Miscellaneous Notes* Telephone Encounter - NATAN Noland - 01/04/2022 1:08 PM EST Please call and assist patient in scheduling consult with Vascular Medicine. Thank you. NATAN Noland * Telephone Encounter - Jese Manley Jr., MD - 01/04/2022 11:35 AM EST Order placed. Jese Manley MD * Telephone Encounter - NATAN Noland - 01/04/2022 10:16 AM EST TC to patient who is agreeable to see vascular medicine. Please place consult and route back so patient can be scheduled. Thank you. NATAN Noland * Telephone Encounter - NATAN Noland - 01/04/2022 10:14 AM EST ----- Message from Jese Manley Jr., MD sent at 01/03/2022 1:23 PM EST ----- Pt needs follow up with vascular for further recs regarding abnormalities on scans including post thrombotic changes and occlusion of L fem vein. Please help pt be scheduled BROOKE with anyone in the department. Thank you, Jese Manley MD documented in this [facility]11-28-2022 History of Present illness Narrative* Jese Manley Jr., MD - 01/03/2022 1:18 PM EST Opened in error. documented in this [facility]11-22-2022 Miscellaneous Notes* Telephone Encounter - NATAN Noland - 12/28/2021 8:16 AM EST TC to patient who verbalizes understanding of providers message and has no questions at this time. NATNA Noland * Telephone Encounter - NATAN Noland - 12/28/2021 8:14 AM EST ----- Message from Jese Manley Jr., MD sent at 12/27/2021 6:19 PM EST ----- ECHO per report does not show a source of stroke. Jese Manley MD documented in this [facility]11-21-2022 History of Present illness Narrative* Vicky Montgomery RN - 12/27/2021 2:45 PM EST 24 ga angio started to RAC. Good blood return. Flushed easily with NSS. Dressing applied. Agitated saline adminstered per protocol. 10 cc administered throughout procedure. 0 cc discarded. Pt tolerated procedure well. No C/o's, Hep lock D/c'd and dressing applied. Patient discharged ambulatory with [facility]. Vicky Montgomery RN documented in this encounterK[facility]11-18-2022 History of Present illness Narrative* Arianna Mullen RT(R) - 12/24/2021 1:40 PM EST Radiology Service Progress Note PATIENT NAME: Gustavo Patton DATE OF SERVICE: December 24, 2021 TIME: 2:27 PM PATIENT IDENTITY VERIFICATION COMPLETED USING TWO (2) IDENTIFIERS: Name and Date of confirmedby patient verbally. FALL SCREENING: Has the patient had 2 falls in the last year or 1 fall with injury or currently using an Ambulatory Assistive Device (Walker, Cane, Wheelchair, Crutches, etc.)? No PATIENT GENDER DATA: Male PATIENT RELEVANT IMPLANT DATA REVIEWED: Not Applicable RADIOLOGY DEPARTMENT: CT; Exam(s) Completed: Brain PERIPHERAL IV DATA: Not applicable SIGNED BY: RT Nick(R) December 24, 2021 2:27 PM documented in this encounterK[facility]11-11-2022 History of Present illness Narrative* Jese Manley Jr., MD - 12/17/2021 10:45 AM EST NEW PATIENT (CONSULT) HISTORY AND PHYSICAL EXAM PRIMARY CARE PHYSICIAN: No primary care provider on file. REASON FOR CONSULT: Stroke REFERRING PHYSICIAN: Self CHIEF COMPLAINT: Stroke follow up HISTORY OF PRESENT ILLNESS: Gustavo Patton is a 71 year old right handed male, with a PMH significant for stroke in 04/01/21. Pt seen at [facility] by [facility]. Was supposed to follow up in 4 monthsbut this is first neuro eval since that time. Per d/c summary note of 04/07/21 SUMMARY OF WHAT HAPPENED WHILE I WAS IN THE HOSPITAL: 70 y/o male who presented on 04/01 for right sided weakness and left gaze deviation. CT brain with no hemorrhage but remote right occipital stroke. CTA with left distal M1. TNK given at 1032. Transported to [facility] for intervention and underwent LMCA thrombectomy. Repeat CTH read with petechial hemorrhage of the left basal ganglia. ECHO with reduced EF of 45%. Patient found to have right DVT popliteal DVT. MRI obtained and showed acute LMCA stroke with petechial hemorrhage. Per neurology not candidate for anticoagulation for at least 6-8 weeks. S/p IVC placement on 04/04. Cardiology recommended outpatient ischemic evaluation and he was continued on asa, statin, lisinopril and beta erika. Started on insulin for A1C of 14. Discharged to acute rehab in stable condition. MRI brain images reviewed from 04/03/21 and showed acute infarct secondary to L M1 occlusion (s/p intervention as above) with additional stroke in the L cerebellar territory suggesting embolic source.per rad report: Acute left MCA territory infarct with multifocal confluent petechial hemorrhage. There is possible developing hematoma in the left basal ganglia. Continue follow-up is recommended. Small acute infarct in the left cerebellar hemisphere. ECHO per report: - Technically difficult exam due to suboptimal positioning. - Exam indication: Stroke - The left ventricle is normal in size. There is mild left ventricular hypertrophy. Left ventricular systolic function is mildly decreased. EF = 45 5% (visual est.) Definity contrast used for endocardial border detection. Grade I left ventricular diastolic dysfunction. No mural thrombi identified within the left ventricular cavity. - The right ventricle is normal in size. Right ventricular systolic function is normal. Tricuspid annular displacement is 1.9 cm. - Pt unable to cough for bubble study. No intracardiac shunting seen on non-Valsalva images. -No valvular vegetations/fibroelastomas seen. - The patient has not had a prior CC echocardiographic exam for comparison. No records of ARCENIO. No definite evidence of PFO on above. Event monitor did not show afib per report. Pt was not started on anticoagulation for DVT - IVC filter placed during above. Currently on ASA and statin. Records show NIHHS was initially 22 at presentation. Pt family states that the PCP said the patient had to see me and thus, delayed follow up care. Currently following with Dr. Cruzito Fraser. Patient states he is doing fine. Sisters who accompany, state they are very impressed. States that he can give directions driving, cleans his own house, pays his bills online, does his own laundry. Checks his BP and glucose regularly. Patient lives by self and family who live further away cannot always see him. Has a nurse that stops in regularly to see him. 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 Family states pt always has had an issue with stuttering. States took a test with his nurse this AMand answered 29/30 questions correctly (not sure what test). However, sometimes panics when a question is asked. Regarding DVT, he has had no follow up and family states a vascular evaluation will be performed in03/2022. Patient clearly with language impairment during interview with difficulties comprehending. He has completed with PT/OT/ST. Pt feels doing well and neither pt nor family expressing any concerns. Orientation: 12/17/21Monday, Jose Alberto Saini 7s: [id number] Similar: Banana and orange: fruit Watch and ruler: does not know Delayed recall: 04/10 Repeat number: 92436 - [id number] (bkwds) [id number] Repeat sentence: Unable to repeat. NIHSS: 1(a). Mental Status - LOC 0 = Alert and Attentive 1(b). LOC Questions 0 = Correct age and month 1(c). LOC-Commands 0 = Both 2. Gaze 0 = Normal 3. Visual Marrero 0 = Full 4. Facial Weakness 1 = Minor, lower 5(a). Left Arm 0 = No drift 5(b). Right Arm 0 = No drift 6(a). Left Leg 0 = No drift 6(b). Right Leg 1 = Drift, but does not hit bed 7. Ataxia 0 = Absent 8. Sensory 0 = Normal 9. Aphasia 1 = Mild to Moderate 10. Dysarthria 0 = Absent 11. Neglect 0 = None NIHSS Total (0-42): 3 REVIEW OF SYSTEMS GENERAL:No weight loss, malaise or fevers. HEENT:Negative for frequent or significant headaches, No changes in hearing or vision, no nose bleeds or other nasal problems NECK:Negative for lumps, goiter, pain and significant neck swelling RESPIRATORY: Negative for cough, wheezing or shortness of breath. CARDIOVASCULAR: Negative for chest pain, leg swelling or palpitations. GASTROINTESTINAL: Negative for abdominal discomfort, blood in stools or black stools or change in bowel habits GENITOURINARY: No history of dysuria, frequency or incontinence MUSCULOSKELETAL: Negative for joint pain or swelling, back pain or muscle pain. NEUROLOGIC:Negative for focal numbness or weakness, headaches and dizziness or syncope, vision changes, speech/language changes, changes in gait or falls -- besides those complaints as above in HPI. SKIN:Negative for lesions, rash, and itching. HEMATOLOGIC/LYMPHATIC/IMMUNOLOGIC:Negative for prolonged bleeding, bruising easily or swollen nodes. ENDOCRINE: Negative for cold or heat intolerance, polyuria, polydipsia and goiter. The remainder of the ROS was reviewed and is negative. LAB/IMAGING: Reviewed and include: WBC (k/uL) Date Value 04/15/2021 8.65 RBC (m/uL) Date Value 04/15/2021 4.87 Hemoglobin (g/dL) Date Value 04/15/2021 14.7 Hematocrit (%) Date Value 04/15/2021 43.8 MCV (fL) Date Value 04/15/2021 89.9 MCH (pg) Date Value 04/15/2021 30.2 MCHC (g/dL) Date Value 04/15/2021 33.6 RDW-CV (%) Date Value 04/15/2021 12.3 Platelet Count (k/uL) Date Value 04/15/2021 301 MPV (fL) Date Value 04/15/2021 12.2 Glucose (mg/dL) Date Value 04/15/2021 117 (H) BUN (mg/dL) Date Value 04/15/2021 25 (H) Creatinine (mg/dL) Date Value 04/15/2021 1.07 Sodium (mmol/L) Date Value 04/15/2021 137 Potassium (mmol/L) Date Value 04/15/2021 4.5 Chloride (mmol/L) Date Value 04/15/2021 100 CO2 (mmol/L) Date Value 04/15/2021 26 Protein, Total (g/dL) Date Value 04/15/2021 7.3 Albumin (g/dL) Date Value 04/15/2021 4.0 Calcium, Total (mg/dL) Date Value 04/15/2021 9.6 Alkaline Phosphatase (U/L) Date Value 04/15/2021 96 Bilirubin, Total (mg/dL) Date Value 04/15/2021 0.5 AST (U/L) Date Value 04/15/2021 22 ALT (U/L) Date Value 04/15/2021 21 MEDICATIONS: metoprolol succinate ER (TOPROL XL) 25 mg 24 hr tablet Take 1 tablet by mouth once daily. lisinopril 2.5 mg tablet Take 1 tablet by mouth once daily. atorvastatin (LIPITOR) 40 mg tablet 1 tablet by ORAL/FEEDING TUBE route daily at bedtime. aspirin 81 mg chewable tablet 1 tablet by ORAL/FEEDING TUBE route once daily. insulin glargine (LANTUS SOLOSTAR, BASAGLAR KWIKPEN) 100 unit/mL (3 mL) Inject 10 Units subcutaneously daily at bedtime. insulin lispro (HUMALOG KWIKPEN) 100 unit/mL Inject 3 Units subcutaneously w MEALS. metFORMIN (GLUCOPHAGE) 500 mg tablet TAKE 1 TAB TWICE DAILY FOR 2 WEEKS, THEN TAKE 2 TABS TWICE DAILY HISTORIES PAST MEDICAL HISTORY Diagnosis Date Diabetes mellitus (HCC) Diastolic heart failure (HCC) DVT of lower extremity (deep venous thrombosis) (HCC) Dysphagia HTN (hypertension) Primary cardiomyopathy (HCC) Stroke (cerebrum) (HCC) FAMILY HISTORY Problem Relation Age of Onset Diabetes Father SOCIAL HISTORY Social History Tobacco Use Smoking status: Never Smokeless tobacco: Never Substance Use Topics Alcohol use: Never Drug use: Never PHYSICAL EXAMINATION Blood pressure 138/68, pulse 110, temperature 36.6 C (97.8 F), resp. rate 18, weight 68 kg (150 lb), SpO2 99 %. GENERAL EXAM: General appearance: NAD, pleasant. HEENT: NC/AT, nasal congestion absent, no oral lesions, membranes moist. NECK: No masses, supple. Lungs: CTA bilaterally. CV: RRR nl S1, S2. No carotid bruits. Extr: No cyanosis, clubbing or edema. Skin: Cool to touch. NEUROLOGICAL EXAM: General: Awake, alert, oriented x3 (person,place,time), receptive>expressive aphasia, no dysarthria; impaired repeating and possibly comprehension. CN: PERRL, fundi with n o evidence of papilledema, EOMI and without nystagmus, VFF to confrontation, facial sensation normal and symmetric but mild central weakness of right face, hearing is intact, palate and tongue movements are intact and symmetric. SCM and trapezius strength normal. Motor: Normal tone, bulk and strength (5/5) bilaterally (throughout extremities x4). Reflexes: Reflexes brisk on R with extensor plantar on R. Coordination: FNF, ALEKSANDR, HTS intact. No tremors. Sensation: Light touch intact throughout. No evidence of neglect. Gait: Stable with normal stride. Assessment and Plan: ASSESSMENT/PLAN: 1. 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 Workup reviewed as above. Note in setting of DVT (R pop) with concern that limited ECHO while in hospital may have missed PFO. Also note, no Afib on Zio. Discussed with pt and will repeat ECHO with bubble with co nsideration for ARCENIO (again looking for PFO). In addition, will repeat CT scan to confirm no other changes given lack of appropriate follow up as well as confirm safety in case OAC needed. For now continue ASA, statin. BP goal <140/90. Glucose goal <140. Pt and family educated on stroke including cause, physiology, treatment, and prognosis. They all agree with workup plan. Pt wanting to drive. Uncertain able to do so safely given language deficits, but will refer to PT DRIVING EVAL for further assessment and recs. 3. Deep vein thrombosis (DVT) of popliteal vein of right lower extremity, unspecified chronicity (HCC) - ICD9: 453.41, ICD10: I82.431 Pt with DVT as above. IVC placed. Was supposed to start on OAC 8 weeks after stroke. Again no follow up. Not scheduled for vascular until 2022. Will get repeat lower ext dopplers to determine extent of clot at this time and need for OAC or sooner eval. Follow up in 3 months or sooner prn. Jese Manley MD I spent a total of 65 minutes on the date of the service which included preparing to see the patient, [id number] patient care, completing clinical documentation, obtaining and/or reviewing separately obtained history, performing a medically appropriate examination, counseling and educating the pat ient/family/caregiver, ordering medications, tests, or procedures, independently interpreting results (not separately reported), and communicating results to the patient/family/caregiver. documented in this encounterK[facility]11-10-2022 Miscellaneous Notes* Telephone Encounter - NATAN Noland - 12/16/2021 3:13 PM EST FYI: TC to patient to inquire about appointment 12/17 as appointment notes say multiple symptoms. Pt states he was seen at [facility] in March for an Acute Stoke and was told he would need a Neurology evaluation in order drive again. Pt coming in to be evaluated for license reinstatement. NATAN Noland documented in this encounterKettering [facility]09-07-2022 Hospital Discharge instructions Additional Instructions Drink lots of fluids. He may take Tylenol for any discomfort. Take the entire course of antibiotics (1 pill in the morning 1 pill in the evening) with your first dose tomorrow morning as you received some today.[facility] Work Phone: [phone] 232-129905-25-2022 Miscellaneous Notes* Telephone Encounter - Vicky Contreras RN - 06/30/2021 9:44 AM EDT MODIFIED MAXINE SCORE POST-DISCHARGE Telephone Visit Patient Name: Gustavo Patton Today's date: June 30, 2021 Date of discharge: April 07, 2021 Person giving information: Gustavo Patton. Relationship to patient: self. Contact information: [phone] Contact attempt: #1 Patient discharge location: [facility] Patient current location: home Presentation to ED or readmission after discharge: No Modified Mccurtain Score: 90 days post discharge: 2 = Slight disability. Unable to carry out all previous activities but able to look after own affairs w/o assistance. Mortality: No Patient still with speech difficulty, but states he is able to be independent. Has an aide come to the house once a week. Signature: Vicky Contreras RN June 30, 2021 9:45 AM documented in this encounterKettering [facility]05-23-2022 Miscellaneous Notes* Telephone Encounter - Celina Marshall LPN - 06/28/2021 5:05 PM EDT I called and spoke to Georgina and informed her of Willa's response to monitor results and recommendations. She voiced understanding and states she will update Renate due to telephone number listed for Renate is incorrect in chart. Celina Marshall LPN * Telephone Encounter - Willa Jay APRN.CNP - 06/28/2021 4:59 PM EDT Please call both sisters, Let them know that the monitor that the patient wore for approximately 2 weeks was stable, no atrial fibrillation or flutter noted. Average heart rate is 86 bpm no changes in treatment. Please make sure he keeps planned appointment this summer as scheduled. Willa Jay APRN.MARIANA documented in this encounterKettering Health [facility]05-03-2022 Nurse Note* Alicia Olvera Magnetic Resonance Imaging Coordinator - 06/08/2021 2:00 PM EDT Applied 14 day extended wear EKG patch. Pt a little confused with instructions, so I went over everything with 1 sister in person and one on the phone. documented in this encounterKettering [facility]05-03-2022 History of Present illness Narrative* RT Donnie(Zeus) - 06/08/2021 10:00 AM EDT RADIOLOGY SERVICE PROGRESS NOTE SERVICE DATE: 06/08/2021 SERVICE TIME: 12:40 PM PATIENT IDENTITY VERIFICATION COMPLETED USING TWO (2) STANDARD IDENTIFIERS: Name and Date of confirmed by patient verbally FALL SCREENING: Has the patient had 2 falls in the last year or 1 fall with injury or currently using an Ambulatory Assistive Device (Walker, Cane, Wheelchair, Crutches, etc.)? No PATIENT GENDER DATA: .male ALLERGIES: Reviewed and unchanged MEDICATIONS REVIEWED: Yes PATIENT RELEVANT IMPLANT DATA REVIEWED: Not Applicable CREATININE: Creatinine Date Value Ref Range Status 04/15/2021 1.07 0.73 - 1.22 mg/dL Final 04/07/2021 0.91 0.73 - 1.22 mg/dL Final 04/06/2021 0.91 0.73 - 1.22 mg/dL Final Estimated Glomerular Filtration Rate Date Value Ref Range Status 04/15/2021 76 >=60 mL/min/1.73m Final Comment: Estimated Glomerular Filtration Rate (eGFR) is calculated using the 2020 CKD-EPI creatinine equation. This equation utilizes serum creatinine, sex, and age as parameters. The creatinine assay has traceable calibration to isotope dilution- mass spectrometry. Refer to KDIGO guidelines for clinical interpretation. In patients with unstable renal function, e.g. those with acute kidney injury, the eGFRmay not accurately reflect actual GFR. eGFR- Date Value Ref Range Status 04/02/2021 >60 Final P.O.C.T. RESULTS: N/A June 08, [address] PERFORMED: No IV SITE: Ambulatory: A peripheral IV was started in the Left antecubital site with a Angio cath: 22gauge. POST EXAM PIV STATUS: Discontinued PROCEDURE TYPE: WA Stress: 13.7mCi [id number] was administered IV for Rest Imaging at 1010 by ty. 30.9 mCi [id number] was administered IV for Stress Imaging at 1125 by ms. ADMINISTRATION TIME: 50201 PATIENT DISCHARGED TO: Ambulatory patient, left [place] department area. A Diagnostic radioactive procedure has taken place, with no further precautions necessary other than routine body substance precautions. More information regarding radiation safety can be found usingthis link: [email or web address] SIGNATURE: MAGNUS Fields) PATIENT NAME: Gustavo Patton DATE: June 08, 2021 TIME: 12:40 PM PAGER/CONTACT #: [facility] Miscellaneous Notes* Result LidiaNote - Willa Jay APRN.QA ANALYST - 06/08/2021 10:00 AM EDT Please call BOTH sisters with pts testing results per pt request please let him know that the results of the stress test show myocardial scar, NO ACTIVE ISCHEMIA with improved EF from prior . No change in medical treatment at this time.Keep planned appointment. Continue aspirin, statin and good hypertension control and metoprolol. documented in this encounterK[facility]22 Nurse Note* Dania Holguin RN - 06/08/2021 10:00 AM EDT Lexiscan teaching completed and patient understanding evidenced by accurate teach back. #22 gauge IV inserted with single access attempt and patient tolerated procedure well. IV d/c upon completion of test with complete cessation of bleeding and pt tolerated well. * Dania Holguin RN - 06/08/2021 10:00 AM EDT Lexiscan teaching completed and patient understanding evidenced by accurate teach back. #22 gauge IV inserted with single access attempt and patient tolerated procedure well. IV d/c upon completion of test with complete cessation of bleeding and pt tolerated well. documented in this encounterK[facility]04-27-2022 Miscellaneous Notes* Telephone Encounter - Jackeline Dunne RN - 06/02/2021 11:43 AM EDT The [facility] has reached out to the patient with no response. Therefore, this is considered a deferral of [facility] services at this time. documented in this encounterK[facility]-2022 Instructions* Patient Instructions* Willa Jay APRN.CNP - 05/12/2021 3:24 PM EDT Obtain Stress Wear monitor I will call both your sisters with your stress test results. documented in this encounterK[facility]22 History of Present illness Narrative* Willa Jay APRN.MARIANA - 05/12/2021 3:00 PM EDT PRIMARY CARE PHYSICIAN: To use this Smartlink, specify the provider ID whose address you want to display, e.g., .PROVADDR[1(where 1 is the provider ID). Chief Complaint Patient presents with: [facility] Hospital Follow Up: hospital discharge HISTORY OF PRESENT ILLNESS: Mr. Patton is a 70 year old male who is known to Dr. Marin from his hospitalization in March 2021. Patient was transferred from [facility] after he was witnessed walking into [place] and fallingon the ground. He was seen first via telemedicine for the stroke, was noted to have right-sided weakness and left gaze deviation, CT the brain demonstrated no hemorrhage, CT of the neck demonstrated distal M1 occlusion he underwent TNK and was transported for mechanical thrombectomy under the direction of . Follow up imaging with evolving L MCA infarct and L basal ganglia petechial hemorrhage. Further workup for potential source of emboli significant for R popliteal DVT. It was recommended by neurosurgery the patient not to have anticoagulation for 6 to 8 weeks. He was seen in consultation by vascular surgery.And patient underwent IVC placement on 04-04-2021 On 04-02-2021, patient underwent transthoracic echocardiogram that demonstrated ejection fraction 45% with stage I diastolic dysfunction, no thrombi were noted or vegetations no shunts were noted via saline contrast.Patient was started on GMT with lisinopril and metoprolol succinate therapy. It was also recommended by the medical engineer that he have ischemic evaluation in the outpatient setting. Neurology stated patient was not a candidate for anticoagulation for 6 to 8 weeks. He was discharged toacute rehab in stable condition. Patient is here today with his sister, we also telephoned his other sister Renate. Patient has been doing very well since his CVA. He still have some speech disturbance, he has become very active, he cleans his residence. Does still continue to participate in therapies. Patient has no cardiac complaints to offer, has had no chest pain with rest or exertion, no shortness of breath, orthopnea PND or edema. Is compliant with his medicinal therapy. PAST MEDICAL HISTORY Diagnosis Date Diabetes mellitus (HCC) Diastolic heart failure (HCC) DVT of lower extremity (deep venous thrombosis) (HCC) Dysphagia HTN (hypertension) Primary cardiomyopathy (HCC) Stroke (cerebrum) (HCC) PAST SURGICAL HISTORY Procedure Laterality Date NONE FAMILY HISTORY Problem Relation Age of Onset Diabetes Father Social History Tobacco Use Smoking status: Never Smoker Smokeless tobacco: Never Used Substance Use Topics Alcohol use: Never Drug use: Never ALLERGIES No Known Allergies Medications: Current Outpatient Medications Medication Sig Dispense Refill aspirin 81 mg chewable tablet 1 tablet by ORAL/FEEDING TUBE route once daily. metFORMIN (GLUCOPHAGE) 500 mg tablet TAKE 1 TAB TWICE DAILY FOR 2 WEEKS, THEN TAKE 2 TABS TWICE DAILY atorvastatin (LIPITOR) 40 mg tablet 1 tablet by ORAL/FEEDING TUBE route daily at bedtime. insulin glargine (LANTUS SOLOSTAR, BASAGLAR KWIKPEN) 100 unit/mL (3 mL) Inject 10 Units subcutaneously daily at bedtime. insulin lispro (HUMALOG KWIKPEN) 100 unit/mL Inject 3 Units subcutaneously w MEALS. lisinopril 2.5 mg tablet Take 1 tablet by mouth once daily. metoprolol succinate ER (TOPROL XL) 25 mg 24 hr tablet Take 1 tablet by mouth once daily. No current facility-administered medications for this visit. Review of Systems Constitutional: Negative for malaise/fatigue. HENT: Negative for congestion. Eyes: Negative for blurred vision. Respiratory: Negative for shortness of breath. Cardiovascular: Negative for chest pain, palpitations, orthopnea and leg swelling. Gastrointestinal: Negative for blood in stool and nausea. Musculoskeletal: Negative for back pain and falls. Neurological: Negative for dizziness, tingling, speech change, loss of consciousness and weakness. Endo/Heme/Allergies: Does not bruise/bleed easily. Psychiatric/Behavioral: The patient does not have insomnia. Physical Examination: Vitals:BP 116/72 Pulse 92 Ht 5' 10 (1.78m) Wt 179 lb 3.2 oz (81.3kg) SpO2 97[room air]% BMI 25.71 kg/(m^2). Last 2 Encounter Wt Readings: Date: Wt: 04/01/2021 210 lb 4.8 oz (95.4 kg) Physical Exam Vitals and nursing note reviewed. Constitutional: Appearance: He is not diaphoretic. Comments: Word format difficulties HENT: Head: Atraumatic. Right Ear: Hearing normal. Left Ear: Hearing normal. Nose: No nasal deformity, mucosal edema or rhinorrhea. Eyes: Extraocular Movements: Right eye: No nystagmus. Left eye: No nystagmus. Pupils: Pupils are equal, round, and reactive to light. Neck: Vascular: No carotid bruit, hepatojugular reflux or JVD. Trachea: No tracheal deviation. Cardiovascular: Rate and Rhythm: Normal rate and regular rhythm. Chest Wall: PMI is not displaced. Pulses: Normal pulses. Heart sounds: Normal heart sounds. No murmur heard. Pulmonary: Effort: Pulmonary effort is normal. Breath sounds: Normal breath sounds. No stridor. Abdominal: General: Bowel sounds are normal. Palpations: Abdomen is soft. Tenderness: There is no abdominal tenderness. Musculoskeletal: General: Normal range of motion. Cervical back: Normal range of motion and neck supple. Skin: General: Skin is warm and dry. Coloration: Skin is not pale. Nails: There is no clubbing. Neurological: Mental Status: He is alert and oriented to person, place, and time. Cranial Nerves: No facial asymmetry. Motor: No weakness or abnormal muscle tone. Coordination: Coordination normal. Gait: Gait is intact. Gait normal. Psychiatric: Mood and Affect: Mood and affect normal. Cognition and Memory: Memory normal. Judgment: Judgment normal. Assessment and Plan: ASSESSMENT/PLAN: 1. Shortness of breath - ICD9: 786.05, ICD10: R06.02 Asymptomatic and euvolemic. - NM CARDIAC PERF STRESS/PHARM - EXTENDED WEAR TRIAGE LICENSED PRACTICAL NURSE PATCH - SELF CHECK COVID 2. L MCA infarct and L basal ganglia petechial hemorrhage. Status post TPA administration and thrombectomy by Continues participate in rehab. Aspirin 81 mg has been resumed. Will apply 14-day patch monitor for arrhythmia review, patient was not discharged on 1. But denies any arrhythmia 3. New LV dysfunction: Ejection fraction on transthoracic echocardiogram shows wall motion abnormalities with ejection fraction 45% In hospitalization, ischemic evaluation was deferred secondary to acute CVA, Patient is asymptomatic and euvolemic Remains on Toprol 25 mg daily Sister to confirm if he is on RUBEN inhibitor secondary to medications at discharge. Called [facility] [place], they do not have him on any other medicines besides Metformin. Will obtain Lexiscan stress test for review, patient cannot walk on treadmill secondary to balance disturbance interferes safety on the treadmill. 4. Diabetes: Patient's hemoglobin A1c in March 2021 during hospitalization 14.4 Is on metformin therapy Reviewed the risk of CAD, in patients with diabetes, also reviewed the atypical symptoms of CAD presentation with patient. 5. Hyperlipidemia: Patient is on atorvastatin therapy Lipids from 04-02-2021 total cholesterol 130, triglycerides 79, HDL 51, LDL is 83 Willa Jay APRN.MARIANA Follow up planning: Obtain stress test as well as monitor, patient is asked me to notify his sisters when the results are available. Patient return in 3 months. Electronically signed by Willa Jay APRN.CNP The above note was partially created using a dictation recognition software. A reasonable attempt has been made to correct any errors. documented in this encounterK[facility]22 Nurse Note* Fidelia Conrad LPN - 05/12/2021 3:00 PM EDT Patient denies any cardiac complaints or symptoms. Not sure of medications he is taking. documented in this encounterK[facility]03-31-2022 Miscellaneous Notes* Telephone Encounter - Jackeline Dunne RN - 05/06/2021 3:53 PM EDT Patient was discharged from [facility] 04/08/21 with an order to schedule with the heart failure clinic. A SNF/ECF letter was mailed to the patient asking them to contact the Clinic to schedule an appointment upon discharge from the facility. There was no response from the patient. A second letter was mailed to the patient to offer to schedule with the Clinic if discharged from the facility. 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)- Primary Cerebral embolism with cerebral infarction History of DVT (deep vein thrombosis) Personal history of venous thrombosis and embolism Deep vein thrombosis (DVT) of popliteal vein of right lower extremity, unspecified chronicity (HCC) 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, late effect of cerebrovascular disease documented in this encounter [facility] note* Diagnosis 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) Cerebral embolism with cerebral infarction documented in this encounter [facility] note* Diagnosis Deep vein thrombosis (DVT) of popliteal vein of right lower extremity, unspecified chronicity (HCC) documented in this encounter [facility] note* Diagnosis Deep vein thrombosis (DVT) of femoral vein, unspecified chronicity, unspecified laterality (HCC)- Primary documented in this encounter [facility] note* Diagnosis 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)- Primary Cerebral embolism with cerebral infarction documented in this encounter [facility] note* Diagnosis Deep vein thrombosis (DVT) of femoral vein, unspecified chronicity, unspecified laterality (HCC) documented in this encounter [facility] note* Diagnosis 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) Cerebral embolism with cerebral infarction documented in this encounter [facility] note* Diagnosis 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)- Primary Cerebral embolism with cerebral infarction documented in this encounter [facility] note* Diagnosis Onset Date Resolution Status CVA (cerebrovascular accident) acute Dysarthria acute Paresthesia acute [facility] Work Phone: Evaluation note* Diagnosis 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) Cerebral embolism with cerebral infarction documented in this encounter [facility] note* Diagnosis Onset Date Resolution Status Paresthesia resolved Cognitive change acute Debility acute Heme + stool acute Normochromic normocytic anemia acute Stroke/cerebrovascular accident acute Dehydration resolved Paresthesia resolved Superficial thrombophlebitis of left upper extremity resolved [facility] Work Phone: Evaluation note* Diagnosis Cerebrovascular accident (CVA), unspecified mechanism (HCC)- Primary Left arm weakness Other musculoskeletal symptoms referable to limbs Cognitive developmental delay [facility] Cerebrovascular accident (CVA), unspecified mechanism (HCC)- Primary [facility]* Diagnosis Language impairment- Primary Other speech disturbance Cerebrovascular accident (CVA), unspecified mechanism (HCC) [facility]* Diagnosis Cerebrovascular accident (CVA), unspecified mechanism (HCC)- Primary Language impairment Other speech disturbance 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) Cerebral embolism with cerebral infarction [facility]* Diagnosis Recurrent strokes (HCC)- Primary Cerebral infarction, unspecified mechanism (HCC) [facility]* Diagnosis Recurrent strokes (HCC)- Primary Chronic deep vein thrombosis (DVT) of femoral vein of right lower extremity (HCC) Presence of IVC filter Other postprocedural status [facility]* Diagnosis Recurrent strokes (HCC)- Primary [facility]* Diagnosis Cerebral infarction, unspecified mechanism (HCC) [facility]* Diagnosis Elevated factor VIII level- Primary [facility]* Diagnosis Cerebrovascular accident (CVA) due to thrombosis of left middle cerebral artery (HCC) Type 2 diabetes mellitus without complication, unspecified whether ad terminal makeup operator insulin use (HCC) Diabetes (HCC) Type II or unspecified type diabetes mellitus without mention of complication, not stated as uncontrolled Deep vein thrombosis (DVT) of lower extremity (HCC) Dysphagia Dysphagia, unspecified Cardiomyopathy (HCC) Other primary cardiomyopathies Elevated factor VIII level- Primary Chronic deep vein thrombosis (DVT) of femoral vein of right lower extremity (HCC) Recurrent strokes (HCC) Presence of IVC filter Other postprocedural status [facility]* Diagnosis Cerebrovascular accident (CVA) due to thrombosis of left middle cerebral artery (HCC) Type 2 diabetes mellitus without complication, unspecified whether shelter insulin use (HCC) Diabetes (HCC) Type II or unspecified type diabetes mellitus without mention of complication, not stated as uncontrolled Deep vein thrombosis (DVT) of lower extremity (HCC) Dysphagia Dysphagia, unspecified Cardiomyopathy (HCC) Other primary cardiomyopathies Recurrent strokes (HCC)- Primary History of DVT (deep vein thrombosis) Personal history of venous thrombosis and embolism 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, late effect of cerebrovascular disease Parkinsonism, unspecified Parkinsonism type (HCC) documented in this encounter [facility] note* Diagnosis Cerebrovascular accident (CVA) due to thrombosis of left middle cerebral artery (HCC) Type 2 diabetes mellitus without complication, unspecified whether shelter insulin use (HCC) Diabetes (HCC) Type II or unspecified type diabetes mellitus without mention of complication, not stated as uncontrolled Deep vein thrombosis (DVT) of lower extremity (HCC) Dysphagia Dysphagia, unspecified Cardiomyopathy (HCC) Other primary cardiomyopathies Parkinsonism, unspecified Parkinsonism type (HCC) documented in this encounter [facility] note* Diagnosis Cerebrovascular accident (CVA) due to thrombosis of left middle cerebral artery (HCC) Type 2 diabetes mellitus without complication, unspecified whether shelter insulin use (HCC) Diabetes (HCC) Type II or unspecified type diabetes mellitus without mention of complication, not stated as uncontrolled Deep vein thrombosis (DVT) of lower extremity (HCC) Dysphagia Dysphagia, unspecified Cardiomyopathy (HCC) Other primary cardiomyopathies Parkinsonism, unspecified Parkinsonism type (HCC)- Primary Cerebrovascular accident (CVA), unspecified mechanism (HCC) History of DVT (deep vein thrombosis) Personal history of venous thrombosis and embolism 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, late effect of cerebrovascular disease Cerebral infarction, unspecified mechanism (HCC) Left arm weakness Other musculoskeletal symptoms referable to limbs Pain in finger of left hand Pain in limb Cervicalgia documented in this encounter [facility] note* Diagnosis Cerebrovascular accident (CVA) due to thrombosis of left middle cerebral artery (HCC) Type 2 diabetes mellitus without complication, unspecified whether shelter insulin use (HCC) Diabetes (HCC) Type II or unspecified type diabetes mellitus without mention of complication, not stated as uncontrolled Deep vein thrombosis (DVT) of lower extremity (HCC) Dysphagia Dysphagia, unspecified Cardiomyopathy (HCC) Other primary cardiomyopathies Parkinsonism, unspecified Parkinsonism type (HCC) documented in this encounter [facility] note* Diagnosis Cerebrovascular accident (CVA) due to thrombosis of left middle cerebral artery (HCC) Type 2 diabetes mellitus without complication, unspecified whether shelter insulin use (HCC) Diabetes (HCC) Type II or unspecified type diabetes mellitus without mention of complication, not stated as uncontrolled Deep vein thrombosis (DVT) of lower extremity (HCC) Dysphagia Dysphagia, unspecified Cardiomyopathy (HCC) Other primary cardiomyopathies Parkinsonism, unspecified Parkinsonism type (HCC) [facility]* Diagnosis Cerebrovascular accident (CVA) due to thrombosis of left middle cerebral artery (HCC) Type 2 diabetes mellitus without complication, unspecified whether ad terminal makeup operator insulin use (HCC) Diabetes (HCC) Type II or unspecified type diabetes mellitus without mention of complication, not stated as uncontrolled Deep vein thrombosis (DVT) of lower extremity (HCC) Dysphagia Dysphagia, unspecified Cardiomyopathy (HCC) Other primary cardiomyopathies Parkinsonism, unspecified Parkinsonism type (HCC)- Primary Abnormality of gait Recurrent strokes (HCC) History of DVT (deep vein thrombosis) Personal history of venous thrombosis and embolism 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, late effect of cerebrovascular disease Irregular sleep-wake rhythm Other circadian rhythm sleep disorder documented in this encounter [facility] note* Diagnosis Cerebrovascular accident (CVA) due to thrombosis of left middle cerebral artery (HCC) Type 2 diabetes mellitus without complication, unspecified whether shelter insulin use (HCC) Diabetes (HCC) Type II or unspecified type diabetes mellitus without mention of complication, not stated as uncontrolled Deep vein thrombosis (DVT) of lower extremity (HCC) Dysphagia Dysphagia, unspecified Cardiomyopathy (HCC) Other primary cardiomyopathies Parkinsonism, unspecified Parkinsonism type (HCC)- Primary Abnormality of gait documented in this encounter [facility] note* Diagnosis Cerebrovascular accident (CVA) due to thrombosis of left middle cerebral artery (HCC) Type 2 diabetes mellitus without complication, unspecified whether ad terminal makeup operator insulin use (HCC) Diabetes (HCC) Type II or unspecified type diabetes mellitus without mention of complication, not stated as uncontrolled Deep vein thrombosis (DVT) of lower extremity (HCC) Dysphagia Dysphagia, unspecified Cardiomyopathy (HCC) Other primary cardiomyopathies Elevated factor VIII level- Primary documented in this encounter [facility] note* Diagnosis Cerebrovascular accident (CVA) due to thrombosis of left middle cerebral artery (HCC) Type 2 diabetes mellitus without complication, unspecified whether ad terminal makeup operator insulin use (HCC) Diabetes (HCC) Type II or unspecified type diabetes mellitus without mention of complication, not stated as uncontrolled Deep vein thrombosis (DVT) of lower extremity (HCC) Dysphagia Dysphagia, unspecified Cardiomyopathy (HCC) Other primary cardiomyopathies Abnormality of gait- Primary Parkinsonism, unspecified Parkinsonism type (HCC) documented in this encounter [facility] Discharge instructions Additional Instructions Please take your medications as follows: Take both aspirin 81 mg daily and Plavix 75 mg daily for the next 3 weeks, then Take only Plavix 35 mg daily going forward Please take all other medications as previously prescribed. Would recommend scheduling follow-up appointments with both your primary care doctor and the neurologist that you were seen with given clinic within the next several weeks.[facility] Work Phone: Reason for referral (narrative)* Diagnostic Procedure Only (Routine) - Pending Review Specialty Diagnoses / Procedures Referred By Contac t Referred To Contact MOLECULAR & FUNCTIONAL IMAGING Diagnoses Shortness of breath Procedures NM CARDIAC PERF STRESS/PHARM MYOCARDIAL SPECT MULTIPLE STUDIES Willa Jay APRN.CNP [address] [place] [address] [place], [place] [id number] Molecular & Functional Imaging [address] [place] [address] Referral ID Status Reason Start Date Expiration Date Visits Requested Visits Authorized [id number] Pending Review Auto-Generat ed Referral 06/11/2021 06/11/2022 1 1 [facility] for referral (narrative)* Diagnostic Procedure Only (Routine) - Closed Specialty Diagnoses / Procedures Referred By Silvia abreu Referred To Contact MOLECULAR & FUNCTIONAL IMAGING Diagnoses Shortness of breath Procedures NM CARDIAC PERF STRESS/PHARM MYOCARDIAL SPECT MULTIPLE STUDIES Willa Jay APRN.CNP [address] [place] [address] [place] [phone] Fax: Molecular & Functional Imaging [address] [place] [address] Referral ID Status Reason Start Date Expiration Date V isits Requested Visits Authorized [id number] Closed Auto-Generate d Referral 05/13/2021 06/27/2021 1 1 [facility] for referral (narrative)* - Authorized Specialty Diagnoses / Procedures Referred By Contac t Referred To Contact Occupational Therapy Diagnoses Cerebrovascular accident (CVA), unspecified mechanism (HCC) Procedures CONSULT TO CHILDCARE ATTENDANT Fallon Steiner PA-C [address] [place] [address] Referral ID Status Reason Start Date Expiration Date V isits Requested Visits Authorized [id number] Authorized 04/20/2023 07/19/2023 99 99 [facility] for referral (narrative)No reason for referral information availableWOhio[facility] Work Phone: Reason for visit Narrative* Diagnostic Procedure Only (Routine) - Closed Specialty Diagnoses / Procedures Referred By Contac t Referred To Contact MOLECULAR & FUNCTIONAL IMAGING Diagnoses Shortness of breath Procedures NM CARDIAC PERF STRESS/PHARM MYOCARDIAL SPECT MULTIPLE STUDIES Willa Jay, FILE CONVERSION OPERATOR.QA ANALYST [address] [place] [address] Molecular & Functional Imaging [address] [place] [address] Referral ID Status Reason Start Date Expiration Date V isits Requested Visits Authorized [id number] Closed Auto-Generate d Referral 05/13/2021 06/27/2021 1 1 [facility] for visit Narrative* Outpatient Procedure (Routine) - Closed Specialty Diagnoses / Procedures Referred By Contac t Referred To Contact [facility] Diagnoses 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) Procedures ECHO WITH AGITATED SALINE CONTRAST ECHO TRANSTHORAC R-T 2D W/WO M-MODE REC COMP Jese Manley Jr., MD [address] [facility] [address] [place] [address] [facility] [place] [address] [place] [address] Referral ID Status Reason Start Date Expiration Date V isits Requested Visits Authorized [id number] Closed Auto-Generate d Referral 12/17/2021 12/17/2022 1 1 [facility] for visit Narrative* Outpatient Procedure (Routine) - Closed Specialty Diagnoses / Procedures Referred By Contac t Referred To Contact [facility] Diagnoses Deep vein thrombosis (DVT) of popliteal vein of right lower extremity, unspecified chronicity (HCC) Procedures US LEG VEIN DVT KRUNAL VAS LAB DUP-SCAN XTR VEINS COMPLETE BILATERAL STUDY Jese Manley Jr., MD [address] [place] [address] [facility] [place] [address] [place] [address] Referral ID Status Reason Start Date Expiration Date V isits Requested Visits Authorized [id number] Closed Auto-Generate d Referral 12/17/2021 12/17/2022 1 1 [facility] Advance Directives No Advanced Directives Records FoundDocuments on File Type Date Recorded Patient Master Fisher Expl anation Advance Directive(s) 04/02/2021 12:29 PM Documents on File Type Date Recorded Patient Master Fisher Expl anation Advance Directive(s) 04/02/2021 12:29 PM Advance Directive Response Recorded Date/ Time Living Will No August 04, 2021 3:09pm Power of Machine Leather Trimmer No August 04 3:09pm Advance Directive Response Recorded Date/ Time Living Will No October 13 11:01am Power of Machine Leather Trimmer No October 13, 2021 11:01am Advance Directive Response Recorded Date/ Time Living Will No October 13 10:01am Power of Machine Leather Trimmer No October 13, 2021 10:01am Advance Directive Response Recorded Date/ Time Living Will No November 22 9:55am Power of Machine Leather Trimmer No November 22, 2022 9:55am Advance Directive Response Recorded Date/ Time Name of Medical Power of Machine Leather Trimmer Patient doesn't remember at this time November 22, 2022 12:45pm Living Will Yes November 22 12:45pm Power of Machine Leather Trimmer Yes November 22, 2022 12:45pm Advance Directive Response Recorded Date/ Time Name of Medical Power of Machine Leather Trimmer Patient doesn't remember at this time November 22, 2022 11:45am Name of Medical Power of Machine Leather Trimmer Renate Francois, sister November 25, 2022 9:27am Living Will Yes November 25 9:27am Power of Machine Leather Trimmer Yes November 25, 2022 9:27am Advance Directive Response Recorded Date/ Time Living Will Yes November 25 10:27am Do you have a Healthcare Power of Machine Leather Trimmer? Yes November 25, 2022 10:27am Chief Complaint and Reason for Visit Chief Complaint CVA/RX HERE syncope Chief Complaint syncope CVA/RX HERE CHEST PAIN Chief Complaint syncope CHEST PAIN CVA/RX HERE Chief Complaint CHEST PAIN CVA/RX HERE PVD Chief Complaint CVA RX HERE EORDER CEREBRAL INFARCTION Chief Complaint CVA Chief Complaint Cerebrovascular acci dent Cerebrovascular accident CVA Reason for Visit CVA (cerebrovascular accident) Dysarthria Paresthesia Chief Complaint Cerebrovascular acci dent Cerebrovascular accident CVA STROKE STROKE STROKE STROKE STROKE STROKE Reason for Visit Paresthesia Cognitive change Debility Heme + stool Normochromic normocytic anemia Stroke/cerebrovascular accident Dehydration Paresthesia Superficial thrombophlebitis of left upper extremity Chief Complaint Cerebrovascular acci dent Cerebrovascular accident CVA STROKE STROKE STROKE STROKE STROKE STROKE CEREBRAL INFARCTION Reason for Visit Paresthesia Cognitive change Debility Heme + stool Normochromic normocytic anemia Stroke/cerebrovascular accident Dehydration Paresthesia Superficial thrombophlebitis of left upper extremity Chief Complaint Admit Date [facility]/RX HERE January 26, 2024 11:00am 1 Y FU February 29, 2024 1 0:23am VASCULAR DISEASE May 01, 2024 10: 48am Reason for Visit Admit Date Essential (primary) hypertension February 29, 2024 10:23am Stroke/cerebrovascular accident February 29, 2024 10:23am Summary Purpose Family History No Family History Records Found Relationship Condition Age at Onset Recorded Date/T jamar father Diabetes mellitus Unknown Reason for Referral Specialty Diagnoses / Procedures Referred By Silvia abreu Referred To Contact [facility] Diagnoses 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) Procedures CONSULT TO PHYSICAL THERAPY PHYSICAL THERAPY EVALUATION HIGH COMPLEX 45 MINS Jese Manley Jr., MD [address] [facility] [address] [place] [address] [facility] [address] [address] Referral ID Status Reason Start Date Expiration Date Visits Requested Visits Authorized [id number] Pending Review PCP Requested Referral Auto-Generate d Referral 2 12/17/2022 99 99 Specialty Diagnoses / Procedures Referred By Silvia abreu Referred To Contact [facility] Diagnoses 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) Procedures ECHO WITH AGITATED SALINE CONTRAST ECHO TRANSTHORAC R-T 2D W/WO M-MODE REC COMP Jese Manley Jr., MD [address] [facility] [address] [place] [address] [facility] [address] [address] Referral ID Status Reason Start Date Expiration Date Visits Requested Visits Authorized [id number] Authorized Auto-Generat ed Referral 2 12/17/2022 1 1 Specialty Diagnoses / Procedures Referred By Contac t Referred To Contact [facility] [place] Diagnoses Deep vein thrombosis (DVT) of popliteal vein of right lower extremity, unspecified chronicity (HCC) Procedures US LEG VEIN DVT KRUNAL VAS LAB DUP-SCAN XTR VEINS COMPLETE BILATERAL STUDY Jese Manley Jr., MD [address] [facility] [address] [place] [address] [facility] [address] [address] Referral ID Status Reason Start Date Expiration Date Visits Requested Visits Authorized [id number] Authorized Auto-Generat ed Referral 2 12/17/2022 1 1 Specialty Diagnoses / Procedures Referred By Contac t Referred To Contact CT IMAGING Diagnoses 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) Procedures CT BRAIN WO IVCON CT HEAD/BRAIN W/O CONTRAST MATERIAL Jese Manley Jr., MD [address] [facility] [address] [place] [address] Ct Imaging Referral ID Status Reason Start Date Expiration Date V isits Requested Visits Authorized [id number] Open Auto-Generate d Referral 12/17/2021 01/16/2023 1 1 Specialty Diagnoses / Procedures Referred By Contac t Referred To Contact Vascular Medicine Diagnoses Deep vein thrombosis (DVT) of femoral vein, unspecified chronicity, unspecified laterality (HCC) Procedures CONSULT TO VASCULAR MEDICINE OFFICE/OUTPATIENT [facility] 60-74 MINUTES Jese Manley Jr., MD [address] [facility] [address] [place] [address] Referral ID Status Reason Start Date Expiration Date Visits Requested Visits Authorized [id number] Authorized PCP Requested Referral 2 01/04/2023 1 1 Specialty Diagnoses / Procedures Referred By Contac t Referred To Contact [facility] Diagnoses 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) Procedures CONSULT TO CHILDCARE ATTENDANT OCCUPATIONAL THERAPY EVAL HIGH COMPLEX 60 MINS Jese Manley Jr., MD [address] [facility] [address] [place] [address] [address] Referral ID Status Reason Start Date Expiration Date Visits Requested Visits Authorized [id number] Pending Review Auto-Generat ed Referral 2 01/05/2023 1 1 Specialty Diagnoses / Procedures Referred By Contac t Referred To Contact CT IMAGING Diagnoses 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) Procedures CT BRAIN WO IVCON CT HEAD/BRAIN W/O CONTRAST MATERIAL Jese Manley Jr., MD [address] [facility] [address] [place] [address] Ct Imaging [place] [address] Referral ID Status Reason Start Date Expiration Date V isits Requested Visits Authorized [id number] Denied Auto-Generate d Referral 12/17/2021 01/16/2023 1 0 Specialty Diagnoses / Procedures Referred By Contac t Referred To Contact [facility] Diagnoses Cerebrovascular accident (CVA), unspecified mechanism (HCC) Procedures CONSULT TO PHYSICAL THERAPY PHYSICAL THERAPY EVALUATION HIGH COMPLEX 45 MINS Fallon Steiner PA-C [address] [place] [address] [facility] Therapy [address] [address] Referral ID Status Reason Start Date Expiration Date Visits Requested Visits Authorized [id number] Authorized PCP Requested Referral Auto-Generate d Referral 04/18/2023 04/17/2024 99 99 Specialty Diagnoses / Procedures Referred By Contac t Referred To Contact Diagnoses Recurrent strokes (HCC) Procedures CONSULT TO HEMATOLOGY/ONCOLOGY OFFICE/OUTPATIENT [facility] 60 MINUTES Jese Manley Jr., MD [address] [facility] [address] [place] [address] Referral ID Status Reason Start Date Expiration Date Visits Requested Visits Authorized [id number] Authorized PCP Requested Referral 07/17/2023 07/16/2024 1 1 Specialty Diagnoses / Procedures Referred By Contac t Referred To Contact MR IMAGING Diagnoses Cerebral infarction, unspecified mechanism (HCC) Procedures MRA CAROTID WO IVCON MRA, NECK; W/O CONTRAST Jese Manley Jr., MD [address] [facility] [address] [place] [address] [facility] [place] [address] Referral ID Status Reason Start Date Expiration Date Visits Requested Visits Authorized [id number] Authorized Auto-Generat ed Referral 07/17/2023 08/15/2024 1 1 Specialty Diagnoses / Procedures Referred By Contac t Referred To Contact MR IMAGING Diagnoses Cerebral infarction, unspecified mechanism (HCC) Procedures MRA BRAIN WO IVCON MRA, HEAD W/O CONTRAST Jese Manley Jr., MD [address] [facility] [address] [place] [address] [id number] Referral ID Status Reason Start Date Expiration Date Visits Requested Visits Authorized [id number] Authorized Auto-Generat ed Referral 07/17/2023 08/15/2024 1 1 Referral ID Status Reason Start Date Expiration Date V isits Requested Visits Authorized [id number] Closed Auto-Generate d Referral 07/17/2023 08/15/2024 1 1 Referral ID Status Reason Start Date Expiration Date V isits Requested Visits Authorized [id number] Closed Auto-Generate d Referral 07/17/2023 08/15/2024 1 1 Specialty Diagnoses / Procedures Referred By Contac t Referred To Contact [facility] Diagnoses Parkinsonism, unspecified Parkinsonism type (HCC) Pain in finger of left hand Cervicalgia Procedures CONSULT TO PHYSICAL THERAPY PHYSICAL THERAPY EVALUATION HIGH COMPLEX 45 MINS Fallon Steiner PA-C [address] [place] [address] [facility] [place] [address] [place] [address] Referral ID Status Reason Start Date Expiration Date Visits Requested Visits Authorized [id number] Authorized PCP Requested Referral Auto-Generate d Referral 4 12/05/2024 99 99 Medications Administered Section Inactive Administered Medications - up to 3 most recent administrations Medication Order MAR Action Action Date Dose Rate Site sodium chloride 0.9 % (flush) 10 mL (BD POSIFLUSH) 10 mL, INTRAVENOUS, DIRECTED NEEDED, 1 dose, Starting on 12/17/21 at 1136, Until 12/27/21 at 1330, Per-Protocol - for use during ECHO procedure only, If no IV access, insert saline lock prior to administering contrast. Discontinue saline lock post exam. If patient has central line or IVAD, may access for administering according to line specific nursing protocol. Once exam is complete, flush line and de-access per line specific nursing protocol. Given 12/27/2021 1:30 PM EST 10 mL Additional Source Comments Source Comments (unrecognize d section and content) In the event this informatio n is protected by the Federal Confidentiality of Alcohol and Drug Abuse Patient Records regulations: The Federal rules restrict any use of the information to criminally investigate or prosecute any alcohol or drug abuse patient.[facility] the event this information is protected by the Federal Confidentiality of Alcohol and Drug Abuse Patient Records regulations: The Federal rules restrict any use of the information to criminally investigate or prosecute any alcohol or drug abuse patient.[facility] Campus[facility] the event this information is protected by the Federal Confidentiality of Alcohol and Drug Abuse Patient Records regulations: The Federal rules restrict any use of the information to criminally investigate or prosecute any alcohol or drug abuse patient.[facility] Campus[facility] the event this information is protected by the Federal Confidentiality of Alcohol and Drug Abuse Patient Records regulations: The Federal rules restrict any use of the information to criminally investigate or prosecute any alcohol or drug abuse patient.[facility] CampusIn the event this information is protected by the Federal Confidentiality of Alcohol and Drug Abuse Patient Records regulations: The Federal rules restrict any use of the information to criminally investigate or prosecute any alcohol or drug abuse patient.[facility] Campus[facility] the event this information is protected by the Federal Confidentiality of Alcohol and Drug Abuse Patient Records regulations: The Federal rules restrict any use of the information to criminally investigate or prosecute any alcohol or drug abuse patient.[facility] CampusIn the event this information is protected by the Federal Confidentiality of Alcohol and Drug Abuse Patient Records regulations: The Federal rules restrict any use of the information to criminally investigate or prosecute any alcohol or drug abuse patient.[facility] CampusIn the event this information is protected by the Federal Confidentiality of Alcohol and Drug Abuse Patient Records regulations: The Federal rules restrict any use of the information to criminally investigate or prosecute any alcohol or drug abuse patient.[facility] CampusIn the event this information is protected by the Federal Confidentiality of Alcohol and Drug Abuse Patient Records regulations: The Federal rules restrict any use of the information to criminally investigate or prosecute any alcohol or drug abuse patient.[facility] CampusIn the event this information is protected by the Federal Confidentiality of Alcohol and Drug Abuse Patient Records regulations: The Federal rules restrict any use of the information to criminally investigate or prosecute any alcohol or drug abuse patient.[facility] CampusIn the event this information is protected by the Federal Confidentiality of Alcohol and Drug Abuse Patient Records regulations: The Federal rules restrict any use of the information to criminally investigate or prosecute any alcohol or drug abuse patient.[facility] CampusIn the event this information is protected by the Federal Confidentiality of Alcohol and Drug Abuse Patient Records regulations: The Federal rules restrict any use of the information to criminally investigate or prosecute any alcohol or drug abuse patient.[facility] CampusIn the event this information is protected by the Federal Confidentiality of Alcohol and Drug Abuse Patient Records regulations: The Federal rules restrict any use of the information to criminally investigate or prosecute any alcohol or drug abuse patient.[facility] CampusIn the event this information is protected by the Federal Confidentiality of Alcohol and Drug Abuse Patient Records regulations: The Federal rules restrict any use of the information to criminally investigate or prosecute any alcohol or drug abuse patient.[facility] CampusIn the event this information is protected by the Federal Confidentiality of Alcohol and Drug Abuse Patient Records regulations: The Federal rules restrict any use of the information to criminally investigate or prosecute any alcohol or drug abuse patient.[facility] CampusIn the event this information is protected by the Federal Confidentiality of Alcohol and Drug Abuse Patient Records regulations: The Federal rules restrict any use of the information to criminally investigate or prosecute any alcohol or drug abuse patient.[facility] CampusIn the event this information is protected by the Federal Confidentiality of Alcohol and Drug Abuse Patient Records regulations: The Federal rules restrict any use of the information to criminally investigate or prosecute any alcohol or drug abuse patient.[facility] CampusIn the event this information is protected by the Federal Confidentiality of Alcohol and Drug Abuse Patient Records regulations: The Federal rules restrict any use of the information to criminally investigate or prosecute any alcohol or drug abuse patient.[facility] CampusIn the event this information is protected by the Federal Confidentiality of Alcohol and Drug Abuse Patient Records regulations: The Federal rules restrict any use of the information to criminally investigate or prosecute any alcohol or drug abuse patient.[facility] CampusIn the event this information is protected by the Federal Confidentiality of Alcohol and Drug Abuse Patient Records regulations: The Federal rules restrict any use of the information to criminally investigate or prosecute any alcohol or drug abuse patient.[facility] CampusIn the event this information is protected by the Federal Confidentiality of Alcohol and Drug Abuse Patient Records regulations: The Federal rules restrict any use of the information to criminally investigate or prosecute any alcohol or drug abuse patient.[facility] CampusIn the event this information is protected by the Federal Confidentiality of Alcohol and Drug Abuse Patient Records regulations: The Federal rules restrict any use of the information to criminally investigate or prosecute any alcohol or drug abuse patient.[facility] CampusIn the event this information is protected by the Federal Confidentiality of Alcohol and Drug Abuse Patient Records regulations: The Federal rules restrict any use of the information to criminally investigate or prosecute any alcohol or drug abuse patient.[facility] CampusIn the event this information is protected by the Federal Confidentiality of Alcohol and Drug Abuse Patient Records regulations: The Federal rules restrict any use of the information to criminally investigate or prosecute any alcohol or drug abuse patient.[facility] CampusIn the event this information is protected by the Federal Confidentiality of Alcohol and Drug Abuse Patient Records regulations: The Federal rules restrict any use of the information to criminally investigate or prosecute any alcohol or drug abuse patient.[facility] CampusIn the event this information is protected by the Federal Confidentiality of Alcohol and Drug Abuse Patient Records regulations: The Federal rules restrict any use of the information to criminally investigate or prosecute any alcohol or drug abuse patient.[facility] CampusIn the event this information is protected by the Federal Confidentiality of Alcohol and Drug Abuse Patient Records regulations: The Federal rules restrict any use of the information to criminally investigate or prosecute any alcohol or drug abuse patient.[facility] CampusIn the event this information is protected by the Federal Confidentiality of Alcohol and Drug Abuse Patient Records regulations: The Federal rules restrict any use of the information to criminally investigate or prosecute any alcohol or drug abuse patient.[facility] CampusIn the event this information is protected by the Federal Confidentiality of Alcohol and Drug Abuse Patient Records regulations: The Federal rules restrict any use of the information to criminally investigate or prosecute any alcohol or drug abuse patient.[facility] CampusIn the event this information is protected by the Federal Confidentiality of Alcohol and Drug Abuse Patient Records regulations: The Federal rules restrict any use of the information to criminally investigate or prosecute any alcohol or drug abuse patient.[facility] CampusIn the event this information is protected by the Federal Confidentiality of Alcohol and Drug Abuse Patient Records regulations: The Federal rules restrict any use of the information to criminally investigate or prosecute any alcohol or drug abuse patient.[facility] CampusIn the event this information is protected by the Federal Confidentiality of Alcohol and Drug Abuse Patient Records regulations: The Federal rules restrict any use of the information to criminally investigate or prosecute any alcohol or drug abuse patient.[facility] CampusIn the event this information is protected by the Federal Confidentiality of Alcohol and Drug Abuse Patient Records regulations: The Federal rules restrict any use of the information to criminally investigate or prosecute any alcohol or drug abuse patient.[facility] CampusIn the event this information is protected by the Federal Confidentiality of Alcohol and Drug Abuse Patient Records regulations: The Federal rules restrict any use of the information to criminally investigate or prosecute any alcohol or drug abuse patient.[facility] the event this information is protected by the Federal Confidentiality of Alcohol and Drug Abuse Patient Records regulations: The Federal rules restrict any use of the information to criminally investigate or prosecute any alcohol or drug abuse patient.[facility] CampusIn the event this information is protected by the Federal Confidentiality of Alcohol and Drug Abuse Patient Records regulations: The Federal rules restrict any use of the information to criminally investigate or prosecute any alcohol or drug abuse patient.[facility] CampusIn the event this information is protected by the Federal Confidentiality of Alcohol and Drug Abuse Patient Records regulations: The Federal rules restrict any use of the information to criminally investigate or prosecute any alcohol or drug abuse patient.[facility]In the event this information is protected by the Federal Confidentiality of Alcohol and Drug Abuse Patient Records regulations: The Federal rules restrict any use of the information to criminally investigate or prosecute any alcohol or drug abuse patient.[facility] CampusIn the event this information is protected by the Federal Confidentiality of Alcohol and Drug Abuse Patient Records regulations: The Federal rules restrict any use of the information to criminally investigate or prosecute any alcohol or drug abuse patient.[facility] CampusIn the event this information is protected by the Federal Confidentiality of Alcohol and Drug Abuse Patient Records regulations: The Federal rules restrict any use of the information to criminally investigate or prosecute any alcohol or drug abuse patient.[facility] CampusIn the event this information is protected by the Federal Confidentiality of Alcohol and Drug Abuse Patient Records regulations: The Federal rules restrict any use of the information to criminally investigate or prosecute any alcohol or drug abuse patient.[facility] CampusIn the event this information is protected by the Federal Confidentiality of Alcohol and Drug Abuse Patient Records regulations: The Federal rules restrict any use of the information to criminally investigate or prosecute any alcohol or drug abuse patient.[facility] CampusIn the event this information is protected by the Federal Confidentiality of Alcohol and Drug Abuse Patient Records regulations: The Federal rules restrict any use of the information to criminally investigate or prosecute any alcohol or drug abuse patient.[facility] CampusIn the event this information is protected by the Federal Confidentiality of Alcohol and Drug Abuse Patient Records regulations: The Federal rules restrict any use of the information to criminally investigate or prosecute any alcohol or drug abuse patient.[facility] CampusIn the event this information is protected by the Federal Confidentiality of Alcohol and Drug Abuse Patient Records regulations: The Federal rules restrict any use of the information to criminally investigate or prosecute any alcohol or drug abuse patient.[facility] CampusIn the event this information is protected by the Federal Confidentiality of Alcohol and Drug Abuse Patient Records regulations: The Federal rules restrict any use of the information to criminally investigate or prosecute any alcohol or drug abuse patient.[facility] CampusIn the event this information is protected by the Federal Confidentiality of Alcohol and Drug Abuse Patient Records regulations: The Federal rules restrict any use of the information to criminally investigate or prosecute any alcohol or drug abuse patient.[facility] CampusIn the event this information is protected by the Federal Confidentiality of Alcohol and Drug Abuse Patient Records regulations: The Federal rules restrict any use of the information to criminally investigate or prosecute any alcohol or drug abuse patient.[facility] CampusIn the event this information is protected by the Federal Confidentiality of Alcohol and Drug Abuse Patient Records regulations: The Federal rules restrict any use of the information to criminally investigate or prosecute any alcohol or drug abuse patient.[facility] CampusIn the event this information is protected by the Federal Confidentiality of Alcohol and Drug Abuse Patient Records regulations: The Federal rules restrict any use of the information to criminally investigate or prosecute any alcohol or drug abuse patient.[facility] CampusIn the event this information is protected by the Federal Confidentiality of Alcohol and Drug Abuse Patient Records regulations: The Federal rules restrict any use of the information to criminally investigate or prosecute any alcohol or drug abuse patient.[facility] CampusIn the event this information is protected by the Federal Confidentiality of Alcohol and Drug Abuse Patient Records regulations: The Federal rules restrict any use of the information to criminally investigate or prosecute any alcohol or drug abuse patient.[facility] CampusIn the event this information is protected by the Federal Confidentiality of Alcohol and Drug Abuse Patient Records regulations: The Federal rules restrict any use of the information to criminally investigate or prosecute any alcohol or drug abuse patient.[facility] CampusIn the event this information is protected by the Federal Confidentiality of Alcohol and Drug Abuse Patient Records regulations: The Federal rules restrict any use of the information to criminally investigate or prosecute any alcohol or drug abuse patient.[facility] CampusIn the event this information is protected by the Federal Confidentiality of Alcohol and Drug Abuse Patient Records regulations: The Federal rules restrict any use of the information to criminally investigate or prosecute any alcohol or drug abuse patient.[facility] CampusIn the event this information is protected by the Federal Confidentiality of Alcohol and Drug Abuse Patient Records regulations: The Federal rules restrict any use of the information to criminally investigate or prosecute any alcohol or drug abuse patient.[facility] CampusIn the event this information is protected by the Federal Confidentiality of Alcohol and Drug Abuse Patient Records regulations: The Federal rules restrict any use of the information to criminally investigate or prosecute any alcohol or drug abuse patient.[facility] CampusIn the event this information is protected by the Federal Confidentiality of Alcohol and Drug Abuse Patient Records regulations: The Federal rules restrict any use of the information to criminally investigate or prosecute any alcohol or drug abuse patient.[facility] CampusIn the event this information is protected by the Federal Confidentiality of Alcohol and Drug Abuse Patient Records regulations: The Federal rules restrict any use of the information to criminally investigate or prosecute any alcohol or drug abuse patient.[facility] Reason for Visit (unrecogniz ed section and content) Reason Comments OT EVAL Specialty Diagnoses / Procedures Referred By Contac t Referred To Contact Occupational Therapy Diagnoses Cerebrovascular accident (CVA), unspecified mechanism (HCC) Procedures CONSULT TO CHILDCARE ATTENDANT Fallon Steiner PA-C [address] [place] [address] Referral ID Status Reason Start Date Expiration Date V isits Requested Visits Authorized [id number] Authorized 04/20/2023 07/19/2023 99 99 Reason Comments Occupational Therapy Specialty Diagnoses / Procedures Referred By Contac t Referred To Contact OCCUPATIONAL THERAPY Diagnoses 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) Procedures CONSULT TO CHILDCARE ATTENDANT OCCUPATIONAL THERAPY EVAL HIGH COMPLEX 60 MINS Jese Manley Jr., MD [address] [facility] [address] [place] [address] Cathleen Goel, OT/L Referral ID Status Reason Start Date Expiration Date V isits Requested Visits Authorized [id number] Authorized 01/05/2022 01/05/2023 99 99 Reason Comments Orders [facility] - appt contac t/SNF letter 2 Reason Comments CARD Hospital Follow Up hospital dischar ge Reason Comments Orders [facility] - order conta ct/deferral Reason Comments Results Reason Onset Date Comments modified Mccurtain score 06/30/2021 Reason Comments Appointment Reason Comments New Patient Consult for evaluati on for driving post CVA Reason Comments Results Reason Comments Orders Reason Comments [facility] requesting record s Reason Comments Venous Thrombus Gustavo is here for DV T Rfd by Dr. 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, unspecified chronicity, unspecified laterality (HCC) Procedures CONSULT TO VASCULAR MEDICINE OFFICE/OUTPATIENT NEW HIGH MDM 60-74 MINUTES Jese Manley Jr., MD [address] [facility] [address] [place] [address] Referral ID Status Reason Start Date Expiration Date V isits Requested Visits Authorized [id number] Closed PCP Requested Referral 01/04/2022 01/04/2023 1 1 Reason Comments Fax order to out side Reason Comments Information Reason Comments Refill Request Reason Comments Radiology CT Specialty Diagnoses / Procedures Referred By Contac t Referred To Contact CT IMAGING Diagnoses 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 Reason Comments Patient Question Reason Comments Results Patient Update This therapist chinchilla d patient's sister who is DPOA and lives in [place] regarding Gustavo's recent clinical assessment results of driving skills and to ask if any significant changes as result of recent stroke. She indicated that there had not been as far as she is aware but did verbalize concerns related to his purchasing a new vehicle without any assist from another adult while she does feel he was taken advantage of which she worries about. She is hoping he does well BTW but fears future strokes. Reason Comments OT Discharge Occupational Therapy Specialty Diagnoses / Procedures Referred By Contac t Referred To Contact OCCUPATIONAL THERAPY Diagnoses Self pay driving Procedures Self pay driving Self Ot [address] [address] Referral ID Status Reason Start Date Expiration Date Visits Requested Visits Authorized [id number] Authorized Financial Clearance Required - Self Pay 05/04/2023 02/06/2024 2 2 Reason Comments New Patient New Patient Hx Josh kirby. Reason Comments New Patient Reason Comments Release Of Medical Records Reason Comments New Patient Evaluation Specialty Diagnoses / Procedures Referred By Contac t Referred To Contact Diagnoses Recurrent strokes (HCC) Procedures CONSULT TO HEMATOLOGY/ONCOLOGY OFFICE/OUTPATIENT NEW HIGH MDM 60 MINUTES Jese Manley Jr., MD [address] [facility] [address] [place] [id number] Referral ID Status Reason Start Date Expiration Date V isits Requested Visits Authorized [id number] Closed PCP Requested Referral 07/17/2023 07/16/2024 1 1 Reason Comments Follow Up Reason Comments Patient Update Specialty Diagnoses / Procedures Referred By Contac t Referred To Contact MR IMAGING Diagnoses Cerebral infarction, unspecified mechanism (HCC) Procedures MRA CAROTID WO IVCON MRA, NECK; W/O CONTRAST Jese Manley Jr., MD [address] [place] [address] [place] [address] Referral ID Status Reason Start Date Expiration Date V isits Requested Visits Authorized [id number] Closed Auto-Generate d Referral 07/17/2023 08/15/2024 1 1 Reason Comments Patient Question Reason Comments Opened In Error Reason Comments Established Patient Reason Comments Medication Question Reason Comments New Patient History of stroke fo llow up Reason Comments Med Change Request Reason Comments New Patient History of strokes, parkinsons, sinemet follow up Reason Comments Patient Request Reason Onset Date Comments Refill Request 01/11/2024 Reason Comments Follow Up Reason Comments PT Eval Specialty Diagnoses / Procedures Referred By Contac t Referred To Contact [facility] Diagnoses Parkinsonism, unspecified Parkinsonism type (HCC) Abnormality of gait Procedures CONSULT TO PHYSICAL THERAPY PHYSICAL THERAPY EVALUATION HIGH COMPLEX 45 MINS Jese Manley Jr., MD [address] [place], [place] [id number] Phone: tel: fax: [facility] [address] [place] [id number] Referral ID Status Reason Start Date Expiration Date Visits Requested Visits Authorized [id number] Authorized PCP Requested Referral Auto-Generate d Referral 07/12/2024 07/12/2025 99 99 Reason Comments PT Discharge Specialty Diagnoses / Procedures Referred By Contac t Referred To Contact [facility] Diagnoses Parkinsonism, unspecified Parkinsonism type (HCC) Abnormality of gait Procedures PHYSICAL THERAPY EVALUATION HIGH COMPLEX 45 MINS Jese Manley Jr., MD [address] [place] [address] Phone: tel: fax: [facility] [address] [place] [address] Goals (unrecognized section and content) Goals may be documented in a n alternate sectionGoals may be documented in an alternate sectionGoals may be documented in an alternate sectionGoals may be documented in an alternate sectionGoals may be documented in an alternate sectionGoals may be documented in an alternate sectionGoals may be documented in an alternate sectionGoals may be documented in an alternate section (unrecognized sect ion and content) No Status Records FoundNo Status Records FoundNo Status Records FoundNo Status Records FoundNo Status Records Found INFORMATION SOURCE (unrecogn ized section and content) DATE CREATED AUTHOR 08/07/2021 [facility] DATE CREATED AUTHOR AUTHOR'S ORGANIZ ATION 09/30/2022 [facility] DATE CREATED AUTHOR AUTHOR'S ORGANIZ ATION 05/26/2023 [facility] DATE CREATED AUTHOR AUTHOR'S ORGANIZ ATION 05/05/2024 [facility] DATE CREATED AUTHOR AUTHOR'S ORGANIZ ATION 09/17/2024 [facility] Care Teams (unrecognized sec tion and content) Sales Office Administrator Relationship Specialty Start Date End Date Cruzito Fraser MD [address] [facility] [address] [place] [address] PCP - General Family Medicine 01/10/22 Jese Manley Jr., MD [address] [place] [address] Neurology 01/10/22 Sales Office Administrator Relationship Specialty Start Date End Date Cruzito Fraser MD [address] [facility] [address] [place] [address] PCP - General Family Medicine 01/10/22 Jese Manley Jr., MD [address] [place] [address] Neurology 01/10/22 Sales Office Administrator Relationship Specialty Start Date End Date Cruzito Fraser MD [address] [facility] [address] [place] [address] PCP - General Family Medicine 01/10/22 Jese Manley Jr., MD [address] [facility] [place] [address] Neurology 01/10/22 Team Status: Active Member Role Status Dates U Family Provider Active Madhavi Chaudhry DO Primary Care Provider Active Team Status: Active Member Role Status Dates Madhavi Chaudhry DO Primary Care Provider Active Dr. Javon Vazquez MD Attending Provider Active Team Status: Active Member Role Status Dates Dr. Cruzito Fraser MD Primary Care Provider Active Dr. Jese Manley MD Attending Provider, Referring P karlos Active Team Status: Inactive Member Role Status Dates Ayla Stathopoulos , SHOW HOST OR HOSTESS-C Attending Provider, Referr ing Provider Active Madhavi Chaudhry , DO Primary Care Provider Active Team Status: Inactive Member Role Status Dates Madhavi Chaudhry , DO Primary Care Provider Active Ayla Turner , SHOW HOST OR HOSTESS-C Attending Provider, Referr ing Provider Active Sales Office Administrator Relationship Specialty Start Date End Date Cruzito Fraser MD [address] [place] [address] PCP - General Family Medicine 01/10/22 Jese Manley Jr., MD [address] [place] [address] Neurology 01/10/22 Team Status: Active Member Role Status Dates Madhavi Chaudhry DO Primary Care Provider Active Dr. Javon Vazquez MD Attending Provider Active Ayla Turner , SHOW HOST OR HOSTESS-C Referring Provider Active Team Status: Inactive Member Role Status Dates Dr. Cruzito Fraser MD Primary Care Provider Active Dr. Jese Manley MD Attending Provider, Referring P karlos Active Team Status: Active Member Role Status Dates Madhavi Chaudhry DO Primary Care Provider Active Dr. Cristhian Carlos , DO Emergency Provider Active Dr. Jerod Cavazos , DO Admit Provider, Attending Provider Active Team Status: Active Member Role Status Dates Madhavi Chaudhry DO Primary Care Provider Active Dr. Moriah Jones MD Attending Provider Activ e Team Status: Active Member Role Status Dates Madhavi Chaudhry , DO Primary Care Provider Active Dr. Cristhian Carlos , DO Emergency Provider Active Dr. Jerod Cavazos , DO Admit Provi ellen, Attending Provider, Other Provider Active Team Status: Inactive Member Role Status Dates Madhavi Chaudhry DO Primary Care Provider Active Dr. Cristhian Carlos , DO Emergency Provider Active Dr. Jerod Cavazos , DO Admit Provider, Attending Provider Active Team Status: Active Member Role Status Dates Madhavi Chaudhry DO Primary Care Provider Active Dr. Moriah Jones MD Attending Provider, Refe rring Provider Active Team Status: Active Member Role Status Dates Madhavi Chaudhry DO Primary Care Provider Active Dr. Connie He , DO Admit Pr ovider, Attending Provider, Other Provider Active Team Status: Inactive Member Role Status Dates Madhavi Chaudhry , DO Primary Care Provider, Attending Provider Active Team Status: Inactive Member Role Status Dates Madhavi Chaudhry , DO Primary Care Provider Active Dr. Connie He , DO Admit Provider, Attend ing Provider Active Team Status: Inactive Member Role Status Dates Madhavi Chaudhry , DO Primary Care Provi ellen, Attending Provider, Referring Provider Active Sales Office Administrator Relationship Specialty Start Date End Date Cruzito Fraser MD [address] [place] [address] [address] [place] [address] PCP - General Family Medicine 01/10/22 Jese Manley Jr., MD [address] [place] [address] Neurology 01/10/22 Sales Office Administrator Relationship Specialty Start Date End Date Cruzito Fraser MD [address] [place] [address] [address] [place] [address] PCP - General Family Medicine 01/10/22 Jese Manley Jr., MD [address] [place] [address] Neurology 01/10/22 Sales Office Administrator Relationship Specialty Start Date End Date Cruzito Fraser MD [address] [place] [address] [address] [place] [address] PCP - General Family Medicine 01/10/22 Jese Manley Jr., MD [address] [place] [address] Neurology 01/10/22 Sales Office Administrator Relationship Specialty Start Date End Date Cruzito Fraser MD [address] [place] [address] [address] [place] [address] PCP - General Family Medicine 01/10/22 Jese Manley Jr., MD [address] [facility] [place] [address] Neurology 01/10/22 Sales Office Administrator Relationship Specialty Start Date End Date Cruzito Fraser MD [address] [place] [address] [address] [place] [address] PCP - General Family Medicine 01/10/22 Jese Manley Jr., MD [address] [facility] [place] [address] Neurology 01/10/22 Sales Office Administrator Relationship Specialty Start Date End Date Cruzito Fraser MD [address] [place] [address] [address] [place] [address] PCP - General Family Medicine 01/10/22 Jese Manley Jr., MD [address] [facility] [place] [address] Neurology 01/10/22 Sales Office Administrator Relationship Specialty Start Date End Date Cruzito Fraser MD [address] [place] [address] [address] [place] [address] PCP - General Family Medicine 01/10/22 Jese Manley Jr., MD [address] [facility] [place] [address] Neurology 01/10/22 Sales Office Administrator Relationship Specialty Start Date End Date Cruzito Fraser MD [address] [place] [address] [address] [place] [address] PCP - General Family Medicine 01/10/22 Jese Manley Jr., MD [address] [facility] [place] [address] Neurology 01/10/22 Sales Office Administrator Relationship Specialty Start Date End Date Cruzito Fraser MD [address] [place] [address] [address] [place] [address] PCP - General Family Medicine 01/10/22 Jese Manley Jr., MD [address] [facility] [place] [address] Neurology 01/10/22 Sales Office Administrator Relationship Specialty Start Date End Date Cruzito Fraser MD [address] [place] [address] [address] [place] [address] PCP - General Family Medicine 01/10/22 Jese Manley Jr., MD [address] [facility] [place] [address] Neurology 01/10/22 Sales Office Administrator Relationship Specialty Start Date End Date Cruzito Fraser MD [address] [place] [address] [address] [place] [address] PCP - General Family Medicine 01/10/22 Jese Manley Jr., MD [address] [facility] [place] [address] Neurology 01/10/22 Sales Office Administrator Relationship Specialty Start Date End Date Cruzito Fraser MD [address] [place] [address] [address] [place] [address] PCP - General Family Medicine 01/10/22 Jese Manley Jr., MD [address] [facility] [place] [address] Neurology 01/10/22 Sales Office Administrator Relationship Specialty Start Date End Date Cruzito Fraser MD [address] [place] [address] [address] [place] [address] PCP - General Family Medicine 01/10/22 Jese Manley Jr., MD [address] [place] [address] Neurology 01/10/22 Sales Office Administrator Relationship Specialty Start Date End Date Cruzito Fraser MD [address] [place] [address] PCP - General Family Medicine 01/10/22 Jese Manley Jr., MD [address] [place] [address] Neurology 01/10/22 Sales Office Administrator Relationship Specialty Start Date End Date Cruzito Fraser MD [address] [place] [address] PCP - General Family Medicine 01/10/22 Jese Manley Jr., MD [address] [place] [address] Neurology 01/10/22 Sales Office Administrator Relationship Specialty Start Date End Date Cruzito Fraser MD [address] [place] [address], [place] [address] PCP - General Family Medicine 01/10/22 Jese Manley Jr., MD [address] [place] [address] Neurology 01/10/22 Sales Office Administrator Relationship Specialty Start Date End Date Cruzito Fraser MD [address] [place] [address] PCP - General Family Medicine 01/10/22 Jese Manley Jr., MD [address] [place] [address] Neurology 01/10/22 Team Status: Active Member Role Status Dates Tracie Maldonado MD Primary Care Provider Active Team Status: Inactive Member Role Status Dates Tracie Maldonado MD Primary Care Provider Active St art: January 12, 2024 End: January 12, 2024 Tracie Maldonado MD Attending Provider Active Start : January 12, 2024 End: January 12, 2024 Tracie Maldonado MD Referring Provider Active Start : January 12, 2024 End: January 12, 2024 Team Status: Inactive Member Role Status Dates Tracie Maldonado MD Primary Care Provider Active St art: January 26, 2024 End: January 26, 2024 SARAHI SOTO Attending Provider Active S tart: January 26, 2024 End: January 26, 2024 SARAHI SOTO Referring Provider Active S tart: January 26, 2024 End: January 26, 2024 Team Status: Inactive Member Role Status Dates Madhavi Chaudhry DO Referring Provider Active Start: February 29, 2024 End: February 29, 2024 Iain López SHOW HOST OR HOSTESS, SHOW HOST OR HOSTESS-C Attending Provider Active S tart: February 29, 2024 End: February 29, 2024 Tracie Maldonado MD Primary Care Provider Active St art: February 29, 2024 End: February 29, 2024 Team Status: Inactive Member Role Status Dates Tracie Maldonado MD Primary Care Provider Active St art: May 01, 2024 End: May 01, 2024 Dr. Fabien Leal DPM Attending Provider Active Start: May 01, 2024 End: May 01, 2024 Dr. Fabien Leal DPM Referring Provider Active Start: May 01, 2024 End: May 01, 2024 Sales Office Administrator Relationship Specialty Start Date End Date Cruzito Fraser MD [address] [facility] [address] [place] [address] PCP - General Family Medicine 01/10/22 Jese Manley Jr., MD [address] [facility] [place] [address] Neurology 01/10/22 Sales Office Administrator Relationship Specialty Start Date End Date Cruzito Fraser MD [address] [place] [address] [address] [place] [address] PCP - General Family Medicine 01/10/22 Jese Manley Jr., MD [address] [facility] [place] [address] Neurology 01/10/22 Sales Office Administrator Relationship Specialty Start Date End Date Cruzito Fraser MD [address] [place] [address], [place] [address] PCP - General Family Medicine 01/10/22 Jese Manley Jr., MD [address] [facility] [place] [address] Neurology 01/10/22 Sales Office Administrator Relationship Specialty Start Date End Date Tracie Maldonado MD [facility] [address] [place] [address] PCP - General Internal Medicine 08/06/24 Jese Manley Jr., MD [address] [facility] [place] [place] [address] Neurology 01/10/22 Sales Office Administrator Relationship Specialty Start Date End Date Tracie Maldonado MD [address] [address] [address] PCP - General Internal Medicine 08/06/24 Jese Manley Jr., MD [address] [place] [address] Neurology 01/10/22 Sales Office Administrator Relationship Specialty Start Date End Date Tracie Maldonado MD Caroline Ibrahim [address] [address] PCP - General Internal Medicine 08/06/24 Jese Manley Jr., MD [address] [place] [address] Neurology 01/10/22 FOR RECORDS PERTAINING TO PATIENTS WHO ARE OR HAVE BEEN ENROLLED IN A CHEMICAL DEPENDENCY/SUBSTANCEABUSE PROGRAM, SOME INFORMATION MAY BE OMITTED. This clinical summary was aggregated from multiple sources. Caution should be exercised in using it in the provision of clinical care. This summary normalizes information from multiple sources, and as a consequence, information in this document may materially change the coding, format and clinical context of patient data. In addition, data may be omitted in some cases. CLINICAL DECISIONS SHOULD BE BASED ON THE PRIMARY CLINICAL RECORDS. [facility] [email or web address] [facility]. provides no warranty or guarantee of the accuracy or completeness of information in this document.
[2024-10-17 21:52] LABS: PSA,Total - Annual Screen 0.80 ng/mL (0.02-4.00)
[2024-10-17] MEDS: 0.9% Normal Saline (1000mL) 1,000 ML 999 ML IV ×2 (22:08→22:45)
[2024-10-17 22:28] LABS: Reflex Lactate? Y
[2024-10-17] MEDS: 0.9% Normal Saline (1000mL) 1,000 ML 150 ML IV (22:29)
[2024-10-17 22:31] LABS: FOLATES,SERUM (FOLIC ACID) 38.40 ng/mL (4.60-34.80)
[2024-10-17] MEDS: Senna Tablet 1 TABLET PO (22:44)
[2024-10-17] MEDS: Piperacil/Tazobactam 3.375 GM in 0.9% Normal Saline (50mL MB+) 50 ML IV (22:44)
[2024-10-17] MEDS: Lactobacillis Acidophilus 1 CAP PO (22:44)
[2024-10-17 23:47] LABS: Vitamin B12 680 pg/mL (180-914)
[2024-10-18] VITALS (8 sets, daily range): BP systolic 94–108; BP diastolic 61–69; PULSE 103–122; RESP 16–18; TEMP 36.6–37.9; O2SAT 93–95
[2024-10-18 00:02] LABS: Troponin T High Sens 4 HR 67 ng/L (<=22)
[2024-10-18] MEDS: Piperacil/Tazobactam 3.375 GM in 0.9% Normal Saline (50mL MB+) 50 ML IV ×3 (05:19→21:40)
[2024-10-18] MEDS: 0.9% Normal Saline (1000mL) 1,000 ML 150 ML IV (05:19)
[2024-10-18] MEDS: Lidocaine Jelly 2% 20 ML Syringe (URO-JET) 1 APPLIC TOPICAL (05:28)
[2024-10-18] MEDS: 0.9% Saline Lock 10 ML Syringe IV ×4 (06:16→21:40)
[2024-10-18 06:29] LABS: Cholesterol 84 mg/dL (<=200); Low Density Lipoprotein Calc. 31 mg/dL; Triglycerides 89 mg/dL; Very Low Density Lipoprotein 18 mg/dL (5-40); cholesterol:hdl ratio screen 2.40
[2024-10-18 06:46] LABS: CPK Total, Creatine Kinase 18195 U/L (24-195)
[2024-10-18 07:31] LABS: SITE Not entered; VBG BASE EXCESS -2 mmol/L (-1.0-3.5); VBG PO2 162 mmHg (25-40); VBG SO2 100 % (50-70); VBG TCO2 23 mmol/L (23-33)
--- NOTE | 2024-10-18 08:06 | PN.HOSP_ITS ---
Reason for Visit Chief Complaint: Fall at Home. Subjective Subjective Patient denies any current pain. States he is feeling okay. No complaints at this time. Objective Data Objective Data Vital Signs: Vital Signs Temp Pulse Resp BP Pulse Ox O2 Del Method 99.4 F H 113 H 18 108/66 93 Room Air 10/18/24 07:00 10/18/24 06:20 10/18/24 06:20 10/18/24 06:20 10/18/24 06:20 10/18/24 06:20 Oxygen Delivery Method Room Air Weight: 77.111 kg Body Mass Index (BMI) 24.3 Intake & Output: Intake and Output for Last 24 Hours 10/16/24 10/17/24 10/18/24 23:59 23:59 23:59 Intake Total 2429.17 / 2429.17 1050 / 1050 Output Total 0 / 0 Balance 2429.17 / 2429.17 1050 / 1050 Lab / Micro Data 10/17/24 18:24 10/18/24 05:36 Labs: Laboratory Results - last 24 hr 10/17/24 18:24: WBC 15.5 H, RBC 4.48 L, Hgb 13.7, Hct 41.0, MCV 91.5, MCH 30.6, MCHC 33.4, RDW Std Deviation 43.2, RDW Coeff of Sara 12.9, Plt Count 275, MPV 12.2 H, Immature Gran % (Auto) 0.300, Neut % (Auto) 88.6 H, Lymph % (Auto) 2.7 L , Sumner % (Auto) 7.1, Eos % (Auto) 0.8, Baso % (Auto) 0.5, Absolute Neuts (auto) 13.7 H, Absolute Lymphs (auto) 0.41 L, Nucleated RBC % 0, PT 19.7 H, INR 1.6, APTT 33.3, Sodium 138, Potassium 4.5, Chloride 98, Carbon Dioxide 21.0, Anion Gap 19 H, BUN 55 H, Creatinine 2.76 H, Estim Creat Clear Calc 25.35 L, Est GFR (MDRD) Non-Af 24 L, BUN/Creatinine Ratio 20.1 H, Glucose 344 H, Hemoglobin A1c 8.1 H, Lactic Acid 3.6 H*, Calcium 9.5, Total Bilirubin 0.76, AST 392 H, ALT 77 H, Alkaline Phosphatase 104, Total Creatine Kinase 71485 H, Troponin T High Sens 64 H*, Total Protein 8.2, Albumin 4.0, Globulin 4.3 H, Albumin/Globulin Ratio 0.9 10/17/24 19:23: POC Glucose 320 H 10/17/24 20:25: Troponin T Hi Sens 2 Hr 69 H*, PSA Screen 0.80, TSH 0.834 10/17/24 21:17: Lactic Acid 1.7, Serum Folate 38.40 H 10/17/24 22:47: Lactic Acid 2.0, Troponin T Hi Sens 4Hr 67 H*, Vitamin B12 680 10/18/24 04:58: Total Creatine Kinase 88818 H, Triglycerides 89, Cholesterol 84, LDL Cholesterol, Calc 31, VLDL Cholesterol 18, HDL Cholesterol 35 L, Cholesterol/HDL Ratio 2.40 10/18/24 06:13: POC Glucose 167 H ABG Data ABG results: ABG 10/17/24 10/18/24 18:27 07:25 Specimen Type ART SYED Sample Site L Radial Not entered pH 7.50 H Bicarbonate Actual 20.2 L Total CO2 21 Base Excess -3 L O2 Saturation 96 O2 % 21.0 ABG pCO2 26.1 L ABG pO2 70 L Teodoro Test Positive VBG pH 7.44 H VBG pO2 162 H VBG HCO3 22 VBG Total CO2 23 VBG O2 Sat (Calc) 100 H VBG Base Excess -2 L POC Mix VBG pCO2 Pt Tmp 32.5 L O2 Delivery Device Room Air Not entered Vent Mode Not entered Radiography Diagnostic Testing: Radiology Impression Brain CT 10/17/24 18:06 IMPRESSION: No evidence of acute intracranial pathology. Advanced chronic small-vessel ischemic changes with multiple patchy areas of old infarct involving the bilateral cerebral hemispheres. Reading Location: [facility] Chest X-Ray 10/17/24 18:25 IMPRESSION: Small left pleural effusion, superimposed consolidation not excluded. Reading Location[facility] Physical Exam Const alert, oriented x3, no apparent distress, average body habitus and well nourished Constitutional Narrative: Older, white male, with bradykinesia and a flat affect, appears comfortable, does not appear toxic HEENT moist oral mucous membranes HEENT Narrative: Large abrasion over right anterior nasal region but no significant ecchymosis or edema Head and Scalp: normocephalic Resp normal respiratory effort, no retractions, no use of accessory muscles and clear to auscultation bilaterally Auscultation: Negative for rales, rhonchi or wheezes Cardio regular rate, regular rhythm, S1 normal heart sound, S2 normal heart sound, no murmurs, no rub, no gallops and no clicks GI normal to inspection, nondistended, normoactive bowel sounds, soft to palpation and non-tender Extremity no clubbing, cyanosis or edema Extremity Narrative: 2+ pedal and radial pulses Neuro moves all extremities and no focal motor deficits Neuro Narrative: Bradykinesia, speech is clear and normal but response times are somewhat delayed Psych Negative for affect normal Psych Narrative: Affect is flat but patient makes good eye contact and interacts appropriately Assessment & Plan Assessment/Plan (1) Chronic anticoagulation: (2) Hematuria: QUALIFIERS: Hematuria type: unspecified type Qualified Code(s): R 31.9 - Hematuria, unspecified (3) Fall: QUALIFIERS: Encounter type: initial encounter Qualified Code(s): W19.XXXA - Unspecified fall, initial encounter (4) Rhabdomyolysis: QUALIFIERS: Rhabdomyolysis type: non-traumatic Qualified Code(s): M62.82 - Rhabdomyolysis (5) CHRISTY (acute kidney injury): (6) SIRS (systemic inflammatory response syndrome): (7) High anion gap metabolic acidosis: (8) Urethral stricture: PLAN: Plan Sepsis - Patient technically meets sepsis criteria with leukocytosis, lactic acidosis and CHRISTY however no identifiable infectious source had been identified - Sepsis protocol was initiated - Urine cultures are pending - Continue broad-spectrum antibiotics - If infection is ruled out we will discontinue antibiotics CHRISTY on CKD stage IIIb - Baseline serum creatinine appears to be between 1.4 and 1.5 - Serum creatinine presentation was 2.76 with rhabdo myelosis noted - Avoid nephrotoxins - Continue IV fluids - Rate of rise seems to be stabilizing so we will hold off on further workup at this time and reevaluate tomorrow Rhabdomyolysis - CPK was greater than 18,000 and - Repeat CPK in a.m. - Continue IV fluids aggressively Urinary retention secondary to urethral stricture/hematuria - Larkin unable to be placed in the emergency department - Urology consult with stricture found - DC with Larkin and outpatient follow-up with urology - Start Flomax 0.4 daily Anion gap metabolic acidosis - Likely related to renal dysfunction - Will utilize LR - pH is normal but patient is blowing down CO2 to less than 30 - Repeat BMP in a.m. 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 - Has chronic disability but lives alone - Continue aspirin Essential hypertension/hyperlipidemia - Continue home metoprolol - Hold home lisinopril with renal dysfunction - continue home statin Chronic HFrEF - Stable with no signs of decompensation Parkinson's disease with recent fall - Continue home carbidopa levodopa - PT/OT consultation Seasonal allergies - Continue home loratadine History of developmental delay - Complicates overall medical history DVT prophylaxis SCDs - Restart apixaban once renal function stabilizes CODE STATUS - Full code Charges/Coding Visit Charges Inpatient E&M: 81372 Subs Hosp L2
--- NOTE | 2024-10-18 08:08 | ECHOCS_ITS ---
Reason For Study Reason For Study: Elevated Troponins Procedure This was a 2D Doppler, Color Flow transthoracic echocardiogram. The study was technically difficult. Contrast injection was performed. Exam performed portable in patient room. Left Ventricle Normal size and thickness. Apical lateral thinning with hypokinesis. Unchanged from previous study in 2022. Overall LVEF 55%. Stage I diastolic dysfunction. Right Ventricle Normal right ventricle. Atria The left and right atria are normal. Mitral Valve Trivial mitral valve insufficiency. Tricuspid Valve Trivial tricuspid valve insufficiency. Unable to estimate RV systolic pressure due to insufficient tricuspid regurgitant envelope. Aortic Valve The aortic valve is not well visualized in the short axis view. There is no aortic stenosis. No aortic valve insufficiency. Pulmonic Valve The pulmonic valve is not well visualized. Great Vessels Normal sized aortic root. Pericardium/Pleural No pericardial effusion. Medication Diluted definity 2ml given slow IV push to enhance endocardial definition. MMode/2D Measurements & Calculations LVIDd: 5.5 cm IVSd: 0.89 cm Ao root diam: 3.4 cm LVIDs: 3.3 cm LVPWd: 0.79 cm FS: 40.3 % LAV(MOD-bp): 34.7 ml LVAd ap4: 28.0 cm2 SV(MOD-sp4): 41.6 ml LAV(MOD-bp) Indexed: 17.8 ml/m2 LVLd ap4: 8.1 cm SI(MOD-sp4): 21.4 ml/m2 LAV(MOD-sp2): 36.9 ml EDV(MOD-sp4): 76.8 ml LAV(MOD-sp4): 28.0 ml EDV(sp4-el): 82.1 ml LVAs ap4: 16.8 cm2 LVLs ap4: 6.4 cm ESV(MOD-sp4): 35.2 ml ESV(sp4-el): 37.6 ml EF(MOD-sp4): 54.2 % EF(sp4-el): 54.2 % SV(sp4-el): 44.5 ml LA A4 area: 13.7 cm2 Time Measurements MV dec time: 0.19 sec Doppler Measurements & Calculations MV E max mkuul: 67.2 cm/sec Lat Peak E' Mukul: 8.3 cm/sec Med Peak E' Mukul: 5.6 cm/sec MV A max mukul: 121.8 cm/sec E/E' lat: 8.1 E/E' med: 12.1 MV E/A: 0.55 MV V2 max: 137.8 cm/sec MV P1/2t max mukul: 92.7 cm/sec Ao V2 max: 116.0 cm/sec MV max P.6 mmHg MV P1/2t: 69.1 msec Ao max P.4 mmHg MV V2 mean: 74.7 cm/sec Ao V2 mean: 84.2 cm/sec MV mean P.7 mmHg MV dec slope: 393.1 cm/sec2 Ao mean P.2 mmHg MV V2 VTI: 21.7 cm MVA(P1/2t): 3.2 cm2 Ao V2 VTI: 19.3 cm AV (velocity ratio): 0.99 LV V1 max: 114.0 cm/sec LV V1 max P.2 mmHg LV V1 mean P.0 mmHg LV V1 mean: 81.8 cm/sec LV V1 VTI: 19.1 cm ECHO/Echo Complete W/ Contrast Interpretation Summary The study was technically difficult. Apical lateral thinning with hypokinesis. Unchanged from previous study in 2022 . Overall LVEF 55%. Stage I diastolic dysfunction. Ordering Physician: Nathalia Garcia Performed By: Gerard Kulkarni RCS
[2024-10-18 08:36] LABS: Anion Gap 18 (5-15); BUN 58 mg/dL (4-19); BUN/Creat Ratio 20.5 RATIO (10-20); Calcium,Total 8.2 mg/dL (7.6-11.0); Carbon Dioxide 15.7 mmol/L (21.0-32.0); Chloride 105 mmol/L (98-108); Estimated Creatinine Clearance 24.55 ml/min (50-250); Glucose 176 mg/dL (70-99); Potassium 4.8 mmol/L (3.3-5.1)
[2024-10-18] MEDS: Lactobacillis Acidophilus 1 CAP PO ×4 (10:01→21:50)
--- NOTE | 2024-10-18 11:07 | CASEMGMT ---
GIOVANNI HUBER Assessment: Face to Face with pt for initial transition planning/care coordination assessment. RN CECILE introduced self and role at [facility], pt voices understanding and consents to assessment. Pt is A&O x3 and answers all questions appropriately at this time. Pt sitting up in bed in no distress. Care providers, pharmacy, and demographics verified/updated. Admitting Dx: SIRS, CHRISTY, rhabdomyolysis and hematuria Strata Score: 2 PCP:Brady Specialists: Denies Preferred Pharmacy:[facility] Insurance: [facility], AARP Prescription Benefit: yes LNOK: Renate Francois, sister POA; Jonathon Rawls, friend Living Arrangements: Pt lives alone in a single story apt with 3 steps to enter. Pt reports he has been indep in ADL/IADLs and denies concerns at home. Transportation: Pt drives self and denies concerns with transportation. DME:BGM with sufficient strips and lancets, medic alert HHC/SNF: Denies hx of Pt states no concerns with going home at time of dc. Pt states he is active with [facility] and has an appt today. He requested this GIOVANNI HUBER notify Dorinda the nurse that he is not home. Message sent via backline. Pt with hx of 2 strokes per POA and noted in chart developmental delay. Pt states he still works at [employer]. Pt states he does not know what caused his fall at home or how long he was on the ground. Pt would like to resume his [facility] upon dc. Pt states no further concerns/needs. CM to follow. Advised pt to ask CM if any further questions/concerns/needs arise, voices understanding. Pt Goal: Home Plan: TBD pending therapy evals and course of hospitalization Sue DAVILA CM TC to pt GUSTAVO Dewitt. She confirms the above information. She states she has bought medical equipment for pt in the past but he refuses to use. States pt walks without AD. She is concerned that pt needs more oversight in his living situation. She is requesting pt bedside nurse contact her with a medical update as she has questions about testing. Handoff given to PIANO TUNER CM.
--- NOTE | 2024-10-18 11:54 | PCM.CONS.GEN ---
Assessment & Plan Assessment/Plan (1) Urinary retention: PLAN: Larkin placed not able to urinate he had a mild urethral stricture probably needs to go to rehab or home with a Larkin catheter follow-up as an outpatient at the catheter removed later on once that heals up should be okay once to get the catheter out (2) Hematuria: QUALIFIERS: Hematuria type: unspecified type Qualified Code(s): R31.9 - Hematuria, unspecified HPI Consult Data Date of Consult: 10/18/24 HPI Narrative Reason for Consultation: Unable to place Larkin catheter retention of urine HPI Narrative: GUSTAVO CHADWICK, is a 73 M who presents to the hospital after a fall and purely he is dehydrated has rhabdomyolysis has not been able to urinate nursing staff attempted to place a Larkin catheter were not successful in the met resistance so I came by and put a wire through and then over the wire I put in a 16 [place] cachil dehe tip catheter he did have a mild urethral stricture and this was preventing the catheters from going in but once we get the catheter over the wire was able to get in the bladder had darkish yellow urine coming out the bladder 10 cc in the balloon and put to gravity drainage he can keep the Larkin in place follow-up as an outpatient to remove the catheter call me with any questions. [facility] Medical History Facial droop Dysphagia Primary cardiomyopathy Essential (primary) hypertension Diastolic heart failure History of developmental delay History of DVT (deep vein thrombosis) Remote history of stroke DM II (diabetes mellitus, type II), controlled Dysarthria Stroke/cerebrovascular accident Home Medications ?Medication ?Instructions ?Recorded ?Last Taken ?Type multivitamin 1 cap PO DAILY supplement 12/26/21 11/24/22 History atorvastatin 40 mg tablet 40 mg PO QHS #30 tabs 12/05/22 Unknown Rx lisinopril 2.5 mg tablet 2.5 mg PO DAILY #30 tabs 12/05/22 Unknown Rx metoprolol succinate 25 mg 25 mg PO DAILY #30 tabs 12/05/22 Unknown Rx tablet,extended release 24 hr loratadine 10 mg tablet (Allergy 10 mg PO DAILY 01/20/23 Unknown History Relief (loratadine)) sennosides 8.6 mg tablet (Senna 8.6 mg PO QHS 01/20/23 Unknown History Lax) metformin 500 mg tablet 500 mg PO DAILY 05/23/23 Unknown History pantoprazole 20 mg tablet,delayed 20 mg PO DAILY 05/23/23 Unknown History release apixaban 5 mg tablet (Eliquis) 5 mg PO BID 11/09/23 Unknown History aspirin 81 mg chewable tablet 81 mg PO QDAY 11/09/23 Unknown History carbidopa 25 mg-levodopa 100 mg 2 tab PO TID 11/09/23 Unknown History tablet ipratropium bromide 21 mcg (0.03 2 spray intranasal TID PRN nasal 11/09/23 Unknown History %) nasal spray congestion Allergy/AdvReac Type Severity Reaction Status Date / Time No Known Allergies Allergy Verified 10/17/24 22:17 Family History Father Diabetes Social History household members: none housing: apartment number of children: 0 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 pets and animals: No Smoking Status: Never smoker alcohol intake: never substance use type: does not use Physical Exam Const alert and oriented x3 General Appearance: cooperative HEENT normocephalic and head/scalp atraumatic Eyes PERRL and EOMs intact bilaterally Neck supple, no JVD and no carotid bruits Resp normal respiratory effort, normal air movement and clear to auscultation bilaterally Cardio regular rate and no murmurs GI normal to inspection, nondistended, normoactive bowel sounds and soft to palpation Extremity normal capillary refill General Extremity: no tenderness to palpation of joints or extremities; Negative for edema Skin no rashes or lesions noted and no wounds General Skin Exam: no breakdown Neuro CN's II-XII intact bilaterally Psych affect normal Appearance: appropriate Lab / Micro Data 10/17/24 18:24 10/18/24 05:36 Labs: Laboratory Results - last 24 hr 10/17/24 18:24: WBC 15.5 H, RBC 4.48 L, Hgb 13.7, Hct 41.0, MCV 91.5, MCH 30.6, MCHC 33.4, RDW Std Deviation 43.2, RDW Coeff of Sara 12.9, Plt Count 275, MPV 12.2 H, Immature Gran % (Auto) 0.300, Neut % (Auto) 88.6 H, Lymph % (Auto) 2.7 L, Lumpkin % (Auto) 7.1, Eos % (Auto) 0.8, Baso % (Auto) 0.5, Absolute Neuts (auto) 13.7 H, Absolute Lymphs (auto) 0.41 L, Nucleated RBC % 0, PT 19.7 H, INR 1.6, APTT 33.3, Sodium 138, Potassium 4.5, Chloride 98, Carbon Dioxide 21.0, Anion Gap 19 H, BUN 55 H, Creatinine 2.76 H, Estim Creat Clear Calc 25.35 L, Est GFR (MDRD) Non-Af 24 L, BUN/Creatinine Ratio 20.1 H, Glucose 344 H, Hemoglobin A1c 8.1 H, Lactic Acid 3.6 H*, Calcium 9.5, Total Bilirubin 0.76, AST 392 H, ALT 77 H, Alkaline Phosphatase 104, Total Creatine Kinase 95036 H, Troponin T High Sens 64 H*, Total Protein 8.2, Albumin 4.0, Globulin 4.3 H, Albumin/Globulin Ratio 0.9 10/17/24 19:23: POC Glucose 320 H 10/17/24 20:25: Troponin T Hi Sens 2 Hr 69 H*, PSA Screen 0.80, TSH 0.834 10/17/24 21:17: Lactic Acid 1.7, Serum Folate 38.40 H 10/17/24 22:47: Lactic Acid 2.0, Troponin T Hi Sens 4Hr 67 H*, Vitamin B12 680 10/18/24 04:58: Total Creatine Kinase 31961 H, Triglycerides 89, Cholesterol 84, LDL Cholesterol, Calc 31, VLDL Cholesterol 18, HDL Cholesterol 35 L, Cholesterol/HDL Ratio 2.40 10/18/24 05:36: Sodium 138, Potassium 4.8, Chloride 105, Carbon Dioxide 15.7 L, Anion Gap 18 H, BUN 58 H, Creatinine 2.85 H, Estim Creat Clear Calc 24.55 L, Est GFR (MDRD) Non-Af 23 L, BUN/Creatinine Ratio 20.5 H, Glucose 176 H, Calcium 8.2 10/18/24 06:13: POC Glucose 167 H ABG Data ABG results: ABG 10/17/24 10/18/24 18:27 07:25 Specimen Type ART SYED Sample Site L Radial Not entered pH 7.50 H Bicarbonate Actual 20.2 L Total CO2 21 Base Excess -3 L O2 Saturation 96 O2 % 21.0 ABG pCO2 26.1 L ABG pO2 70 L Teodoro Test Positive VBG pH 7.44 H VBG pO2 162 H VBG HCO3 22 VBG Total CO2 23 VBG O2 Sat (Calc) 100 H VBG Base Excess -2 L POC Mix VBG pCO2 Pt Tmp 32.5 L O2 Delivery Device Room Air Not entered Vent Mode Not entered Imaging Radiology Impression Brain CT 10/17/24 18:06 IMPRESSION: No evidence of acute intracranial pathology. Advanced chronic small-vessel ischemic changes with multiple patchy areas of old infarct involving the bilateral cerebral hemispheres. Reading Location: [facility] Chest X-Ray 10/17/24 18:25 IMPRESSION: Small left pleural effusion, superimposed consolidation not excluded. Reading Location[facility]
[2024-10-18 12:04] LABS: Mucous, Urine 0 SEEN /hpf (<or=2+)
[2024-10-18 12:05] LABS: Color, Urine Amber (Yellow); Glucose, Dipstick 50 mg/dl (Normal); Ketone-Dipstick 5 mg/dl (Negative); Leukocyte Esterase-Dipstick 100 /ul (Negative); Nitrite-Dipstick Negative (Negative); Occult Blood-Urine 250 /ul (Negative); Protein-Dipstick 100 mg/dl (Negative); Specific Gravity, Urine 1.025 (1.002-1.030); Urine Bilirubin Dipstick 1 mg/dL (Negative)
[2024-10-18 12:12] LABS: Red Blood Cells-Urine > 100 SEEN /hpf (0-5)
[2024-10-18 12:13] LABS: Squamous Epithelial Cells - UA 0-5 SEEN /hpf (0-5)
--- NOTE | 2024-10-18 13:59 | CASEMGMT ---
GIOVANNI HUBER reviewed progress with therapy, was able to ambulate 240 feet SBA with a walker. GIOVANNI HUBER in to discuss discharge planning with patient. Patient states he would like to go home, GIOVANNI HUBER discussed HHC at discharge. Patient would like HHC and prefers [facility]. Patient gave permission for RN CECILE update sister and Renate CHEN. GIOVANNI HUBER called and updated Renate how patient did with therapy and patient wishes to discharge home with [facility]. Sister concerned but agreeable to plan and will be coming later to see patient. GIOVANNI HUBER encouraged sister to visit patient tomorrow as well to see how he does with therapy, sister voiced that she will be coming tomorrow and voiced appreciation. Sister states patient will need walker for at discharge, prefers [employer]. Sister had no further questions or concerns. GIOVANNI HUBER made referral to [facility], awaiting for response. CM will continue to follow this patient and plan for a safe discharge.
--- NOTE | 2024-10-18 14:00 | CASEMGMT ---
GIOVANNI HUBER reviewed progress with therapy, was able to ambulate 240 feet SBA with a walker. GIOVANNI HUBER in to discuss discharge planning with patient. Patient states he would like to go home, GIOVANNI HUBER discussed HHC at discharge. Patient would like C and prefers [facility], declined HHC list. Patient gave permission for RN CECILE update sister and Renate CHEN. GIOVANNI HUBER called and updated Renate how patient did with therapy and patient wishes to discharge home with [facility]. Sister concerned but agreeable to plan and will be coming later to see patient. GIOVANNI HUBER encouraged sister to visit patient tomorrow as well to see how he does with therapy, sister voiced that she will be coming tomorrow and voiced appreciation. Sister states patient will need walker for at discharge, prefers [employer]. Sister had no further questions or concerns. GIOVANNI HUBER made referral to [facility], awaiting for response. CM will continue to follow this patient and plan for a safe discharge.
[2024-10-18 15:47] LABS: Allen Test Positive; Base Excess -5 mmol/L (-2 to +2); FI02 21.0; PO2 65 mmHG (75-100); SITE R Radial; SO2 94 % (95-99)
[2024-10-18] MEDS: Lactated Ringers 1,000 ML 125 ML IV ×2 (16:21→23:35)
[2024-10-18] MEDS: Senna Tablet 1 TABLET PO (21:50)
[2024-10-19] VITALS (10 sets, daily range): BP systolic 100–127; BP diastolic 50–74; PULSE 89–115; RESP 17–28; TEMP 37–37.4; O2SAT 87–95
--- NOTE | 2024-10-19 04:00 | RAD_ITS ---
PROCEDURE: CHEST 1 VIEW (PORTABLE) 10/19/2024 REASON FOR EXAM: RESPIRATORY STATUS CHANGE TECHNIQUE: 2 AP portable views. COMPARISON: 10/17/2024 FINDINGS: Hardware: EKG leads overlie the chest Heart: The heart size is normal. Lungs: Lungs are expanded, previously noted left pleural effusion has resolved but there is more conspicuous evidence of bibasilar atelectasis in the medial aspects of both lower lung drew. Bones: The bones are unremarkable. Other: RAD/Chest 1 View (Portable) IMPRESSION: Minimal bibasilar atelectasis in the cardiophrenic angles. Follow-up recommend ed to ensure resolution Previously noted left pleural effusion has resolved No organized infiltrate Reading Location: [id number]
[2024-10-19] MEDS: 0.9% Saline Lock 10 ML Syringe IV ×3 (04:03→22:11)
[2024-10-19 04:25] LABS: Hematocrit 29.2 % (40-54); Hemoglobin 9.8 g/dL (13.0-16.5); Immature Granulocytes Count 0.030 X10^3/uL (0.0-0.0); Mean Corp Hgb Conc 33.6 g/dL (32-36); Mean Corpuscular Volume 90.7 fL (80-94); Mean Platelet Vol. 11.5 fl (6.2-12.0); NRBC Flagged by Analyzer 0 % (0-5); POSITIVE DIFFERENTIAL YES; POSITIVE MORPHOLOGY YES; Platelet Count 195 K/mm3 (150-450); RBC Distribution Width CV 13.2 % (11.6-14.6); RBC Distribution Width SD 43.3 fl (35.1-43.9); Red Blood Count 3.22 M/mm3 (4.6-6.2); White Blood Count 9.6 K/mm3 (4.4-11.0)
[2024-10-19 04:28] LABS: Differential Indicated SCAN CRITERIA MET
[2024-10-19 04:29] LABS: Allen Test Positive; Base Excess -5 mmol/L (-2 to +2); FI02 4.0; PO2 107 mmHG (75-100); SITE R Radial; SO2 99 % (95-99)
[2024-10-19 04:49] LABS: Pro- Brain NATRIURETIC PEPTIDE 2366 pg/mL (<=900)
[2024-10-19 04:51] LABS: Magnesium 1.7 mg/dL (1.5-2.2)
--- NOTE | 2024-10-19 05:17 | CPS ---
Oxygen decreased to 3L NC due to ABG results
[2024-10-19 06:06] LABS: Differential Comment SCANNED
[2024-10-19] MEDS: Piperacil/Tazobactam 3.375 GM in 0.9% Normal Saline (50mL MB+) 50 ML IV ×2 (06:18→22:08)
[2024-10-19] MEDS: Furosemide 500 MG in Empty Viaflex 50 mL 1 EACH CONT INF (06:25)
--- NOTE | 2024-10-19 07:00 | PN.HOSP_ITS ---
Reason for Visit Chief Complaint: Fall at Home. Subjective Subjective Events from overnight reviewed. Patient was started on Lasix drip however renal function continues to be poor and urine output remains poor. Workup in progress. Highly suspect patient is dry however. Patient looks tachypneic and is somnolent. States he had a bad night but is still oriented x 3. Per discussion with nursing, his sister had called and expressed concern about him going home. Unfortunately he walked 250 feet yesterday. Will continue to watch functional status and assist with discharge planning. Objective Data Objective Data Vital Signs: Vital Signs Temp Pulse Resp BP Pulse Ox O2 Del Method O2 Flow Rate 99.0 F 104 H 22 H 107/59 L 92 Nasal Cannula 3 10/19/24 06:10 10/19/24 06:10 10/19/24 06:10 10/19/24 06:10 10/19/24 06:10 10/19/24 06:10 10/19/24 06:10 Oxygen Flow Rate (L/min) 3 Oxygen Delivery Method Nasal Cannula Weight: 77.111 kg Body Mass Index (BMI) 24.3 Intake & Output: Intake and Output for Last 24 Hours 10/17/24 10/18/24 10/19/24 23:59 23:59 23:59 Intake Total 2429.17 / 2429.17 4452.08 / 4452.08 497.92 / 497.92 Output Total 50 / 50 Balance 2429.17 / 2429.17 4427.08 / 4427.08 447.92 / 447.92 Lab / Micro Data 10/19/24 12:00 10/19/24 04:20 Labs: Laboratory Results - last 24 hr 10/17/24 11:58: Urine Color Liliana, Urine Clarity Cloudy, Urine pH 5.0, Ur Specific [place] 1.025, Urine Protein 100 H, Urine Glucose (UA) 50 H, Urine Ketones 5 H, Urine Occult Blood 250 H, Urine Nitrite Negative, Urine Bilirubin 1 H, Urine Urobilinogen 1 H, Ur Leukocyte Esterase 100 H, Urine RBC > 100 SEEN, Urine WBC 10-25 SEEN, Ur Squamous Epith Cells 0-5 SEEN, Urine Bacteria 0 SEEN, Urine Mucus 0 SEEN 10/18/24 05:36: Sodium 138, Potassium 4.8, Chloride 105, Carbon Dioxide 15.7 L, Anion Gap 18 H, BUN 58 H, Creatinine 2.85 H, Estim Creat Clear Calc 24.55 L, Est GFR (MDRD) Non-Af 23 L, BUN/Creatinine Ratio 20.5 H, Glucose 176 H, Calcium 8.2 10/18/24 06:13: POC Glucose 167 H 10/18/24 12:23: POC Glucose 146 H 10/18/24 16:16: POC Glucose 141 H 10/18/24 21:56: POC Glucose 126 H 10/19/24 04:20: WBC 9.6, RBC 3.22 L, Hgb 9.8 L, Hct 29.2 L, MCV 90.7, MCH 30.4, MCHC 33.6, RDW Std Deviation 43.3, RDW Coeff of Sara 13.2, Plt Count 195, MPV 11.5, Immature Gran % (Auto) 0.300, Neut % (Auto) 83.9 H, Lymph % (Auto) 6.1 L, [place] % (Auto) 7.9, Eos % (Auto) 1.3, Baso % (Auto) 0.5, Absolute Neuts (auto) 8.0 H, Absolute Lymphs (auto) 0.58 L, Nucleated RBC % 0, Differential Comment SCANNED, Phosphorus 3.6, Magnesium 1.7, NT pro BNP II 2366 H 10/19/24 06:16: POC Glucose 114 H ABG Data ABG results: ABG 10/18/24 10/18/24 10/19/24 07:25 15:43 04:26 Specimen Type SYED ART ART Sample Site Not entered R Radial R Radial pH 7.47 H 7.49 H Bicarbonate Actual 18.9 L 18.0 L Total CO2 20 19 Base Excess -5 L -5 L O2 Saturation 94 L 99 O2 % 21.0 4.0 ABG pCO2 26.1 L 23.7 L ABG pO2 65 L 107 H Teodoro Test Positive Positive VBG pH 7.44 H VBG pO2 162 H VBG HCO3 22 VBG Total CO2 23 VBG O2 Sat (Calc) 100 H VBG Base Excess -2 L POC Mix VBG pCO2 Pt Tmp 32.5 L O2 Delivery Device Not entered Room Air Cannula Vent Mode Not entered Not entered Radiography Diagnostic Testing: Radiology Impression Echocardiogram 10/18/24 08:08 Interpretation Summary The study was technically difficult. Apical lateral thinning with hypokinesis. Unchanged from previous study in 2022. Overall LVEF 55%. Stage I diastolic dysfunction. Ordering Physician: Nathalia Garcia Performed By: Gerard Kulkarni RCS Chest X-Ray 10/19/24 04:00 IMPRESSION: Minimal bibasilar atelectasis in the cardiophrenic angles. Follow-up recommended to ensure resolution Previously noted left pleural effusion has resolved No organized infiltrate Reading Location: [facility] Physical Exam Const alert, oriented x3, no apparent distress, average body habitus and well nourished; Negative for healthy appearing Constitutional Narrative: Somnolent, older, white male, with bradykinesia and a flat affect, appears comfortable, does not appear toxic, sitting up in a chair at the bedside and appears sleepy but interacts General Appearance: cooperative HEENT normocephalic and hearing grossly normal bilaterally HEENT Narrative: Mucous membranes appear dry, scrape on nose appears stable without any significant drainage Eyes conjunctivae normal Eyes Narrative: No scleral icterus Neck no JVD Neck Narrative: Trachea midline Resp No normal respiratory effort, no retractions, no use of accessory muscles and clear to auscultation bilaterally Resp Narrative: Tachypneic, few crackles at right base Auscultation: Negative for rales, rhonchi or wheezes Cardio regular rhythm, S1 normal heart sound, S2 normal heart sound, no murmurs, no rub, no gallops and no clicks Cardio Narrative: Mild tachycardia GI normal to inspection, nondistended, normoactive bowel sounds, soft to palpation and non-tender Extremity no clubbing, cyanosis or edema Extremity Narrative: 2+ pedal and radial pulses Skin Skin Narrative: Abrasion on nose as noted Neuro oriented x3, moves all extremities and no focal motor deficits Neuro Narrative: Bradykinesia, speech is clear and normal but response times are somewhat delayed Speech: speech normal Psych Negative for affect normal Psych Narrative: Affect is flat but patient makes good eye contact and interacts appropriately Assessment & Plan Assessment/Plan (1) Chronic anticoagulation: (2) Hematuria: QUALIFIERS: Hematuria type: unspecified type Qualified Code(s): R 31.9 - Hematuria, unspecified (3) Fall: QUALIFIERS: Encounter type: initial encounter Qualified Code(s): W19.XXXA - Unspecified fall, initial encounter (4) Rhabdomyolysis: QUALIFIERS: Rhabdomyolysis type: non-traumatic Qualified Code(s): M62.82 - Rhabdomyolysis (5) CHRISTY (acute kidney injury): (6) SIRS (systemic inflammatory response syndrome): (7) High anion gap metabolic acidosis: (8) Urethral stricture: PLAN: Plan Sepsis secondary to multilobar pneumonia - Patient developed shortness of breath and hypoxia overnight -Initially thought to be volume overload however suspect elevated BNP was related to decreased clearance as chest x-ray did not appear to be volume overloaded -Obtained CT of the chest which revealed multilobar pneumonia -Continue Zosyn and as azithromycin -Check strep pneumo and Legionella antigens - Add sputum culture if patient able to produce - Urine cultures are pending - Continue broad-spectrum antibiotics CHRISTY on CKD stage IIIb - Baseline serum creatinine appears to be between 1.4 and 1.5 - Serum creatinine was 2.76 on admission and now up to greater than 5 - Will check serial BMPs - Discontinue Lasix drip as a suspect his decreased urine output is oliguria related to his CHRISTY - BNP elevation is likely related to decreased clearance due to kidney injury - Restart IV fluids with LR at 200 cc/h - May need bicarb drip depending on trends and bicarb and clinical status as he is tachypneic to compensate for his metabolic acidosis - Rate of rise seems to be stabilizing so we will hold off on further workup at this time and reevaluate tomorrow - Consult nephrology--> discussed with Dr. Chavez Rhabdomyolysis - CPK was greater than 18,000 and - Trending down and is now 8000 - Continue IV fluids aggressively Urinary retention secondary to urethral stricture/hematuria - Larkin unable to be placed in the emergency department - Urology placed Larkin and will need to leave in until discharge - Start Flomax 0.4 daily - Outpatient follow-up with Dr. Rg after discharge Anion gap metabolic acidosis - Likely related to renal dysfunction - Restart LR and discontinue Lasix drip - Serial BMPs - Patient is working to maintain pH but appears to have triple acid-base disorder with a metabolic acidosis and a respiratory alkalosis and acidosis - May need bicarb Lactic acidosis - Resolved DM-2 uncontrolled - Hyperglycemic on presentation but fasting blood sugar this morning was 167 - Hold home metformin - A1c was 8.1 indicative of poor overall control History of DVT - Has IVC filter - Will start heparin drip with severity of illness as he would not tolerate PE well 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 - Has chronic disability but lives alone - Continue aspirin Essential hypertension/hyperlipidemia - Continue home metoprolol - Hold home lisinopril with renal dysfunction - continue home statin Chronic HFrEF - Stable with no signs of decompensation - BNP is elevated however I suspect this is related to decreased clearance based on imaging and clinical status Parkinson's disease with recent fall - Continue home carbidopa levodopa - PT/OT following Seasonal allergies - Continue home loratadine History of developmental delay - Complicates overall medical history DVT prophylaxis - Heparin drip for now and restart apixaban once renal function is improved CODE STATUS - Full code Charges/Coding Visit Charges Inpatient E&M: 69300 Subs Hosp L3
[2024-10-19 07:21] LABS: AST(SGOT) 318 U/L (<=37); Alanine Aminotransfer ALT/SGPT 17 U/L (<=46); Albumin, Serum 2.6 g/dL (3.4-4.8); Alkaline Phosphatase 75 U/L (40-129); Anion Gap 16 (5-15); BUN 74 mg/dL (4-19); BUN/Creat Ratio 14.2 RATIO (10-20); CPK Total, Creatine Kinase 8103 U/L (24-195); Calcium,Total 7.7 mg/dL (7.6-11.0); Carbon Dioxide 15.6 mmol/L (21.0-32.0); Chloride 105 mmol/L (98-108); Estimated Creatinine Clearance 13.51 ml/min (50-250); Globulin 3.1 g/dL (2.2-4.2); Glucose 124 mg/dL (70-99); Potassium 4.2 mmol/L (3.3-5.1)
--- NOTE | 2024-10-19 07:49 | CT_ITS ---
PROCEDURE: CHEST WITHOUT CONTRAST 10/19/2024 REASON FOR EXAM: HYPOXIA Heart failure. TECHNIQUE: Chest CT without contrast. Coronal and Sagittal reconstruction series were provided. One or more dose reduction techniques were used (e.g., Automated exposure control, adjustment of the mA and/or kV according to patient size, use of iterative reconstruction technique RADIATION DOSE SUMMARY: CTDlvol: 12.6 mGy DLP: 448.1 mGycm COMPARISON: None FINDINGS: Thyroid gland: Negative. Lungs: Small bilateral pleural effusions. Patchy consolidations in both lower lobes as well as the right middle lobe. No pulmonary nodules or masses. Pleura: Negative for pleural effusion or pneumothorax. Airways: Imaged bronchi and trachea negative. Mediastinum: Negative for mediastinal mass. Lymph nodes: Negative for axillary, mediastinal or hilar adenopathy. Heart and Vasculature: Heart normal size. Negative for vascular calcifications of the thoracic aorta. Coronary Artery Calcifications: Negative for vascular calcifications of the coronary arteries Upper Abdomen: Negative Hardware: None. Bones: Age-appropriate degenerative changes of the thoracic spine. CT/Chest without Contrast IMPRESSION: Multi lobar multifocal pneumonia. Reading Location: [id number]
[2024-10-19 08:03] LABS: Hemoglobin 9.9 g/dL (13.0-16.5)
[2024-10-19 09:42] LABS: Prothrombin Time (Protime)PT. 19.0 SECONDS (11.7-14.9)
[2024-10-19 09:43] LABS: Partial Thromboplast Time 34.1 Seconds (24.1-36.2)
[2024-10-19] MEDS: 0.9% Normal Saline (1000mL) 1,000 ML 75 ML IV (10:00)
[2024-10-19] MEDS: HEPARIN/D5w 25,000 UNITS 25,000 UNITS/250 ML IV.SOLN. 11.6 UNITS CONT INF (10:08)
[2024-10-19] MEDS: Lactobacillis Acidophilus 1 CAP PO ×3 (10:22→22:09)
--- NOTE | 2024-10-19 10:50 | CASEMGMT ---
GIOVANNI HUBER reviewed therapy notes from today. GIOVANNI HUBER called sister, she does not feel Pt able to go home. No family is in the area, pt lives alone. GIOVANNI HUBER discussed we are able to send a referral for SNF and see if insurance will approve. GIOVANNI HUBER into pt room, discussed SNF, pt agreeable. Provided list of local facilities, pt requested GIOVANNI HUBER to call sister, Renate, to decide place of choice. GIOVANNI HUBER called Renate, sent her the list via text. Renate lives about 4 [place]/2 hours away, plans to come visit [facility]. Renate will provide top three choices.
[2024-10-19 11:19] LABS: Creatinine, Urine (random) 70.10 mg/dL (39.00-259.00); Urea Nitrogen, Urine 159 mg/dL (NO RANGE EST.)
[2024-10-19 12:11] LABS: Hemoglobin 11.0 g/dL (13.0-16.5)
--- NOTE | 2024-10-19 13:08 | CASEMGMT ---
GUSTAVO Dewitt, called and would like to change the top 3 SNF choices to [facility]. [facility]. GIOVANNI CM to send referral to [facility].
[2024-10-19 13:36] LABS: Anion Gap 18 (5-15); BUN 79 mg/dL (4-19); BUN/Creat Ratio 13.8 RATIO (10-20); Calcium,Total 8.1 mg/dL (7.6-11.0); Carbon Dioxide 15.4 mmol/L (21.0-32.0); Chloride 102 mmol/L (98-108); Estimated Creatinine Clearance 12.23 ml/min (50-250); Glucose 167 mg/dL (70-99); Potassium 4.3 mmol/L (3.3-5.1)
[2024-10-19 13:47] LABS: Color, Urine Yellow (Yellow); Glucose, Dipstick Normal (Normal); Ketone-Dipstick Negative (Negative); Leukocyte Esterase-Dipstick 500 /ul (Negative); Mucous, Urine 0 SEEN /hpf (<or=2+); Nitrite-Dipstick Negative (Negative); Occult Blood-Urine 250 /ul (Negative); Protein-Dipstick 100 mg/dl (Negative); Specific Gravity, Urine 1.010 (1.002-1.030); Squamous Epithelial Cells - UA 0 SEEN /hpf (0-5); Urine Bilirubin Dipstick Negative (Negative)
[2024-10-19 13:56] LABS: Red Blood Cells-Urine 10-25 SEEN /hpf (0-5)
[2024-10-19] MEDS: Azithromycin 500 MG in 0.9% Normal Saline (250mL Bag) 250 ML 250 MG IV (14:25)
[2024-10-19] MEDS: Lactated Ringers 1,000 ML 200 ML IV ×2 (15:31→20:27)
[2024-10-19 15:48] LABS: Anion Gap 18 (5-15); BUN 79 mg/dL (4-19); BUN/Creat Ratio 13.7 RATIO (10-20); Calcium,Total 8.1 mg/dL (7.6-11.0); Carbon Dioxide 12.2 mmol/L (21.0-32.0); Chloride 103 mmol/L (98-108); Estimated Creatinine Clearance 12.08 ml/min (50-250); Glucose 172 mg/dL (70-99); Potassium 4.2 mmol/L (3.3-5.1)
--- NOTE | 2024-10-19 16:48 | PCM.CONS.R ---
Assessment & Plan Assessment/Plan (1) CHRISTY (acute kidney injury): PLAN: Reviewed prior lab data. baseline cr was 1.4 in July 2023. this admit he came in with cr 2.7 or so. worsening rhabdomyolysis. no focal muscle compartment tenderness. CK is better Taylor inserted by urology volume status looks ok fluids for now Acidosis. will give IV bicarb for now dw Dr Garcia HPI Consult Data Date of Consult: 10/19/24 HPI Narrative Reason for Consultation: CHRISTY HPI Narrative: GUSTAVO CHADWICK, is a 73 M who presents to the hospital with a fall. nephrology on consult due to CHRISTY. somewhat poor historian. apparently fell and could not get up for a while before brought in. ongoing events include rhabdomyolysis, CHRISTY, urinary retention. [facility] Medical History Facial droop Dysphagia Primary cardiomyopathy Essential (primary) hypertension Diastolic heart failure History of developmental delay History of DVT (deep vein thrombosis) Remote history of stroke DM II (diabetes mellitus, type II), controlled Dysarthria Stroke/cerebrovascular accident Home Medications ?Medication ?Instructions ?Recorded ?Last Taken ?Type multivitamin 1 cap PO DAILY supplement 12/26/21 11/24/22 History atorvastatin 40 mg tablet 40 mg PO QHS #30 tabs 12/05/22 Unknown Rx lisinopril 2.5 mg tablet 2.5 mg PO DAILY #30 tabs 12/05/22 Unknown Rx metoprolol succinate 25 mg 25 mg PO DAILY #30 tabs 12/05/22 Unknown Rx tablet,extended release 24 hr loratadine 10 mg tablet (Allergy 10 mg PO DAILY 01/20/23 Unknown History Relief (loratadine)) sennosides 8.6 mg tablet (Senna 8.6 mg PO QHS 01/20/23 Unknown History Lax) metformin 500 mg tablet 500 mg PO DAILY 05/23/23 Unknown History pantoprazole 20 mg tablet,delayed 20 mg PO DAILY 05/23/23 Unknown History release apixaban 5 mg tablet (Eliquis) 5 mg PO BID 11/09/23 Unknown History aspirin 81 mg chewable tablet 81 mg PO QDAY 11/09/23 Unknown History carbidopa 25 mg-levodopa 100 mg 2 tab PO TID 11/09/23 Unknown History tablet ipratropium bromide 21 mcg (0.03 2 spray intranasal TID PRN nasal 11/09/23 Unknown History %) nasal spray congestion Allergy/AdvReac Type Severity Reaction Status Date / Time No Known Allergies Allergy Verified 10/17/24 22:17 Family History Father Diabetes Social History household members: none housing: apartment number of children: 0 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 pets and animals: No Smoking Status: Never smoker alcohol intake: never substance use type: does not use ROS ROS Narrative negative except above Physical Exam Narrative no obvious distress no pallor no icterus no JVD s1s2 no murmurs lungs clear abdomen soft no organomegaly no edema no cyanosis taylor + Lab / Micro Data 10/19/24 12:00 10/19/24 14:50 Labs: Laboratory Results - last 24 hr 10/18/24 16:16: POC Glucose 141 H 10/18/24 21:56: POC Glucose 126 H 10/19/24 04:20: WBC 9.6, RBC 3.22 L, Hgb 9.8 L 10/19/24 04:20: Hgb 9.9 L, Hct 29.2 L, MCV 90.7, MCH 30.4, MCHC 33.6, RDW Std Deviation 43.3, RDW Coeff of Sara 13.2, Plt Count 195, MPV 11.5, Immature Gran % (Auto) 0.300, Neut % (Auto) 83.9 H, Lymph % (Auto) 6.1 L, [place] % (Auto) 7.9, Eos % (Auto) 1.3, Baso % (Auto) 0.5, Absolute Neuts (auto) 8.0 H, Absolute Lymphs (auto) 0.58 L, Nucleated RBC % 0, Differential Comment SCANNED, Sodium 137, Potassium 4.2, Chloride 105, Carbon Dioxide 15.6 L, Anion Gap 16 H, BUN 74 H, Creatinine 5.18 H, Estim Creat Clear Calc 13.51 L, Est GFR (MDRD) Non-Af 11 L, BUN/Creatinine Ratio 14.2, Glucose 124 H, Calcium 7.7, Phosphorus 3.6, Magnesium 1.7, Total Bilirubin 0.51, AST 318 H, ALT 17, Alkaline Phosphatase 75, Total Creatine Kinase 8103 H, NT pro BNP II 2366 H, Total Protein 5.8 L, Albumin 2.6 L, Globulin 3.1, Albumin/Globulin Ratio 0.8 L 10/19/24 06:16: POC Glucose 114 H 10/19/24 09:23: PT 19.0 H, INR 1.6, APTT 34.1 10/19/24 10:15: Urine Color Yellow, Urine Clarity Sl. Cloudy, Urine pH 6.0, Ur Specific [place] 1.010, Urine Protein 100 H, Urine Glucose (UA) Normal, Urine Ketones Negative, Urine Occult Blood 250 H, Urine Nitrite Negative, Urine Bilirubin Negative, Urine Urobilinogen Normal, Ur Leukocyte Esterase 500 H, Urine RBC 10-25 SEEN, Urine WBC 0-5 SEEN, Ur Squamous Epith Cells 0 SEEN, Amorphous Sediment 1+, Urine Bacteria 0 SEEN, Urine Mucus 0 SEEN, Ur Random Sodium 94, Urine Creatinine 70.10, Urine Urea Nitrogen 159 10/19/24 11:22: POC Glucose 161 H 10/19/24 12:00: Hgb 11.0 L, Sodium 135, Potassium 4.3, Chloride 102, Carbon Dioxide 15.4 L, Anion Gap 18 H, BUN 79 H, Creatinine 5.72 H, Estim Creat Clear Calc 12.23 L, Est GFR (MDRD) Non-Af 10 L, BUN/Creatinine Ratio 13.8, Glucose 167 H, Calcium 8.1 10/19/24 13:00: MRSA (PCR) Negative 10/19/24 14:50: Sodium 133, Potassium 4.2, Chloride 103, Carbon Dioxide 12.2 L, Anion Gap 18 H, BUN 79 H, Creatinine 5.79 H, Estim Creat Clear Calc 12.08 L, Est GFR (MDRD) Non-Af 10 L, BUN/Creatinine Ratio 13.7, Glucose 172 H, Calcium 8.1 ABG Data ABG results: ABG 10/19/24 04:26 Specimen Type ART Sample Site R Radial pH 7.49 H Bicarbonate Actual 18.0 L Total CO2 19 Base Excess -5 L O2 Saturation 99 O2 % 4.0 ABG pCO2 23.7 L ABG pO2 107 H Teodoro Test Positive O2 Delivery Device Cannula Vent Mode Not entered Imaging Radiology Impression Chest X-Ray 10/19/24 04:00 IMPRESSION: Minimal bibasilar atelectasis in the cardiophrenic angles. Follow-up recommended to ensure resolution Previously noted left pleural effusion has resolved No organized infiltrate Reading Location: [facility] Chest CT 10/19/24 07:49 IMPRESSION: Multi lobar multifocal pneumonia. Reading Location: [facility]
[2024-10-19] MEDS: Sodium Bicarbonate 8.4% 50 ML Syringe 100 MEQ IV (17:27)
[2024-10-19 18:20] LABS: Partial Thromboplast Time 79.6 Seconds (24.1-36.2)
[2024-10-19 18:42] LABS: Anion Gap 17 (5-15); BUN 80 mg/dL (4-19); BUN/Creat Ratio 13.4 RATIO (10-20); Calcium,Total 8.1 mg/dL (7.6-11.0); Carbon Dioxide 17.4 mmol/L (21.0-32.0); Chloride 102 mmol/L (98-108); Estimated Creatinine Clearance 11.72 ml/min (50-250); Glucose 157 mg/dL (70-99); Potassium 4.2 mmol/L (3.3-5.1)
[2024-10-19 21:35] LABS: Anion Gap 17 (5-15); BUN 81 mg/dL (4-19); BUN/Creat Ratio 13.0 RATIO (10-20); Calcium,Total 7.9 mg/dL (7.6-11.0); Carbon Dioxide 17.7 mmol/L (21.0-32.0); Chloride 103 mmol/L (98-108); Estimated Creatinine Clearance 11.27 ml/min (50-250); Glucose 151 mg/dL (70-99); Potassium 3.9 mmol/L (3.3-5.1)
[2024-10-20] VITALS (14 sets, daily range): BP systolic 103–133; BP diastolic 56–89; PULSE 98–115; RESP 24–33; TEMP 36.5–37.3; O2SAT 92–96
[2024-10-20 00:12] LABS: Partial Thromboplast Time 132.3 Seconds (24.1-36.2)
[2024-10-20 03:29] LABS: Hematocrit 28.9 % (40-54); Hemoglobin 10.0 g/dL (13.0-16.5); Immature Granulocytes Count 0.050 X10^3/uL (0.0-0.0); Mean Corp Hgb Conc 34.6 g/dL (32-36); Mean Corpuscular Volume 89.5 fL (80-94); Mean Platelet Vol. 12.1 fl (6.2-12.0); NRBC Flagged by Analyzer 0 % (0-5); POSITIVE MORPHOLOGY YES; Platelet Count 230 K/mm3 (150-450); RBC Distribution Width CV 13.3 % (11.6-14.6); RBC Distribution Width SD 44.2 fl (35.1-43.9); Red Blood Count 3.23 M/mm3 (4.6-6.2); White Blood Count 12.5 K/mm3 (4.4-11.0)
[2024-10-20 03:37] LABS: Differential Indicated SCAN CRITERIA MET
[2024-10-20 03:53] LABS: Anion Gap 17 (5-15); BUN 82 mg/dL (4-19); BUN/Creat Ratio 12.2 RATIO (10-20); Calcium,Total 7.8 mg/dL (7.6-11.0); Carbon Dioxide 16.4 mmol/L (21.0-32.0); Chloride 104 mmol/L (98-108); Estimated Creatinine Clearance 10.44 ml/min (50-250); Glucose 195 mg/dL (70-99); Magnesium 2.0 mg/dL (1.5-2.2); Potassium 3.7 mmol/L (3.3-5.1)
[2024-10-20 04:06] LABS: CPK Total, Creatine Kinase 4431 U/L (24-195)
[2024-10-20] MEDS: Lactated Ringers 1,000 ML 100 ML IV (04:15)
[2024-10-20 04:20] LABS: Differential Comment SCANNED; Toxic Granulation 2+
[2024-10-20 06:54] LABS: Base Excess -2 mmol/L (-2 to +2); FI02 3.0; PO2 72 mmHG (75-100); SITE R Radial; SO2 96 % (95-99)
--- NOTE | 2024-10-20 07:21 | PN.HOSP_ITS ---
Reason for Visit Chief Complaint: Fall at Home. Subjective Subjective No issues overnight. Patient remains on 3 L nasal cannula. His sister who is part POA has arrived from [place] and helps provide some history. He is alert and oriented x 3 however it sounds like his decision making capacity is problematic. She states he decided to go independently this summer in August on a trip to [place] and had paid $14,000 to do so however when he got to the airport he got scared and confused and only packed a small kit to go to [place]. He was not able to go and lost his money. It sounds like there is multiple problematic events that have occurred and she is currently trying to get him in assisted living facility. We did discuss that he is sick enough that he may need to be placed at discharge. He is traditional Medicare and I do feel that he would benefit from rehab services at discharge. He has had 2 strokes and has Parkinson's at baseline. Objective Data Objective Data Vital Signs: Vital Signs Temp Pulse Resp BP Pulse Ox O2 Del Method O2 Flow Rate 98.7 F 102 H 28 H 122/56 H 94 Nasal Cannula 3 10/20/24 06:57 10/20/24 06:57 10/20/24 06:57 10/20/24 06:57 10/20/24 06:57 10/20/24 06:57 10/20/24 06:57 Oxygen Flow Rate (L/min) 3 Oxygen Delivery Method Nasal Cannula Weight: 77.111 kg Body Mass Index (BMI) 24.3 Intake & Output: Intake and Output for Last 24 Hours 10/18/24 10/19/24 10/20/24 23:59 23:59 23:59 Intake Total 4452.08 / 4452.08 2952.24 / 3072.24 955.23 / 955.23 Output Total 150 / 220 120 / 120 Balance 4427.08 / 4427.08 2802.24 / 2852.24 835.23 / 835.23 Lab / Micro Data 10/20/24 02:54 10/20/24 02:54 Labs: Laboratory Results - last 24 hr 10/19/24 04:20: Hgb 9.9 L, Sodium 137, Potassium 4.2, Chloride 105, Carbon Dioxide 15.6 L, Anion Gap 16 H, BUN 74 H, Creatinine 5.18 H, Estim Creat Clear Calc 13.51 L, Est GFR (MDRD) Non-Af 11 L, BUN/Creatinine Ratio 14.2, Glucose 124 H, Calcium 7.7, Total Bilirubin 0.51, AST 318 H, ALT 17, Alkaline Phosphatase 75, Total Creatine Kinase 8103 H, Total Protein 5.8 L, Albumin 2.6 L, Globulin 3.1, Albumin/Globulin Ratio 0.8 L 10/19/24 09:23: PT 19.0 H, INR 1.6, APTT 34.1 10/19/24 10:15: Urine Color Yellow, Urine Clarity Sl. Cloudy, Urine pH 6.0, Ur Specific [place] 1.010, Urine Protein 100 H, Urine Glucose (UA) Normal, Urine Ketones Negative, Urine Occult Blood 250 H, Urine Nitrite Negative, Urine Bilirubin Negative, Urine Urobilinogen Normal, Ur Leukocyte Esterase 500 H, Urine RBC 10-25 SEEN, Urine WBC 0-5 SEEN, Ur Squamous Epith Cells 0 SEEN, Amorphous Sediment 1+, Urine Bacteria 0 SEEN, Urine Mucus 0 SEEN, Ur Random Sodium 94, Urine Creatinine 70.10, Urine Urea Nitrogen 159 10/19/24 11:22: POC Glucose 161 H 10/19/24 12:00: Hgb 11.0 L, Sodium 135, Potassium 4.3, Chloride 102, Carbon Dioxide 15.4 L, Anion Gap 18 H, BUN 79 H, Creatinine 5.72 H, Estim Creat Clear Calc 12.23 L, Est GFR (MDRD) Non-Af 10 L, BUN/Creatinine Ratio 13.8, Glucose 167 H, Calcium 8.1 10/19/24 13:00: MRSA (PCR) Negative 10/19/24 14:50: Sodium 133, Potassium 4.2, Chloride 103, Carbon Dioxide 12.2 L, Anion Gap 18 H, BUN 79 H, Creatinine 5.79 H, Estim Creat Clear Calc 12.08 L, Est GFR (MDRD) Non-Af 10 L, BUN/Creatinine Ratio 13.7, Glucose 172 H, Calcium 8.1 10/19/24 17:00: APTT Cancelled 10/19/24 17:21: POC Glucose 157 H 10/19/24 17:45: APTT 79.6 H, Sodium 136, Potassium 4.2, Chloride 102, Carbon Dioxide 17.4 L, Anion Gap 17 H, BUN 80 H, Creatinine 5.97 H, Estim Creat Clear Calc 11.72 L, Est GFR (MDRD) Non-Af 9 L, BUN/Creatinine Ratio 13.4, Glucose 157 H, Calcium 8.1 10/19/24 20:53: Sodium 138, Potassium 3.9, Chloride 103, Carbon Dioxide 17.7 L, Anion Gap 17 H, BUN 81 H, Creatinine 6.21 H, Estim Creat Clear Calc 11.27 L, Est GFR (MDRD) Non-Af 9 L, BUN/Creatinine Ratio 13.0, Glucose 151 H, Calcium 7.9 10/19/24 22:08: POC Glucose 138 H 10/19/24 23:40: APTT 132.3 H* 10/20/24 02:54: WBC 12.5 H, RBC 3.23 L, Hgb 10.0 L, Hct 28.9 L, MCV 89.5, MCH 31.0, MCHC 34.6, RDW Std Deviation 44.2 H, RDW Coeff of Sara 13.3, Plt Count 230, MPV 12.1 H, Immature Gran % (Auto) 0.400, Neut % (Auto) 88.2 H, Lymph % (Auto) 4.9 L, [place] % (Auto) 5.6, Eos % (Auto) 0.6, Baso % (Auto) 0.3, Absolute Neuts (auto) 11.0 H, Absolute Lymphs (auto) 0.61 L, Nucleated RBC % 0, Differential Comment SCANNED, Toxic Granulation 2+, Sodium 137, Potassium 3.7, Chloride 104, Carbon Dioxide 16.4 L, Anion Gap 17 H, BUN 82 H, Creatinine 6.70 H, Estim Creat Clear Calc 10.44 L, Est GFR (MDRD) Non-Af 8 L, BUN/Creatinine Ratio 12.2, G lucose 195 H, Calcium 7.8, Magnesium 2.0, Total Creatine Kinase 4431 H Micro: Microbiology 10/19/24 10:15 Urine Catheter - Catheter Legionella Antigen - Final 10/19/24 10:15 Urine Catheter - Catheter Streptococcus pneumoniae Antigen (M - Final 10/19/24 17:55 Mucosa - Nasopharyngeal Respiratory Panel (PCR) - Final 10/19/24 18:11 Mucosa - Nose Coronavirus COVID-19 PCR - Final ABG Data ABG results: ABG 10/20/24 06:50 Specimen Type ART Sample Site R Radial pH 7.47 H Bicarbonate Actual 21.8 L Total CO2 23 Base Excess -2 O2 Saturation 96 O2 % 3.0 ABG pCO2 30.3 L ABG pO2 72 L Teodoro Test N/A O2 Delivery Device Cannula Vent Mode Not entered Radiography Diagnostic Testing: Radiology Impression Chest CT 10/19/24 07:49 IMPRESSION: Multi lobar multifocal pneumonia. Reading Location: [facility] Physical Exam Const alert, oriented x3, no apparent distress, average body habitus and well nourished; Negative for healthy appearing Constitutional Narrative: Somnolent, older, white male, with bradykinesia and a flat affect, appears comfortable, does not appear toxic, lying in bed, nursing at bedside, patient appears comfortable recurrently, sick but not toxic General Appearance: cooperative HEENT normocephalic, head/scalp atraumatic and moist oral mucous membranes HEENT Narrative: No thrush, abrasion over nose is healing Resp No normal respiratory effort, no retractions, no use of accessory muscles and clear to auscultation bilaterally Resp Narrative: Still with tachypneic, crackles at bilateral bases Auscultation: Negative for rales, rhonchi or wheezes Cardio regular rhythm, S1 normal heart sound, S2 normal heart sound, no murmurs, no rub, no gallops and no clicks Cardio Narrative: Mild tachycardia GI normal to inspection, nondistended, normoactive bowel sounds, soft to palpation and non-tender Extremity Extremity Narrative: 2+ pedal and radial pulses, trace pitting edema bilateral lower and upper extremities especially in dependent areas, no cyanosis or clubbing Skin Skin Narrative: Abrasion on nose as noted Neuro moves all extremities and no focal motor deficits Neuro Narrative: Bradykinesia, speech is clear and normal but response times are somewhat delayed Speech: speech normal Psych Negative for affect normal Psych Narrative: Affect is flat but patient makes good eye contact and interacts appropriately Assessment & Plan Assessment/Plan (1) Chronic anticoagulation: (2) Hematuria: QUALIFIERS: Hematuria type: unspecified type Qualified Code(s): R 31.9 - Hematuria, unspecified (3) Fall: QUALIFIERS: Encounter type: initial encounter Qualified Code(s): W19.XXXA - Unspecified fall, initial encounter (4) Rhabdomyolysis: QUALIFIERS: Rhabdomyolysis type: non-traumatic Qualified Code(s): M62.82 - Rhabdomyolysis (5) CHRISTY (acute kidney injury): (6) SIRS (systemic inflammatory response syndrome): (7) High anion gap metabolic acidosis: (8) Urethral stricture: PLAN: Plan Sepsis secondary to multilobar pneumonia - Patient developed shortness of breath and hypoxia overnight -Initially thought to be volume overload however suspect elevated BNP was related to decreased clearance as chest x-ray did not appear to be volume overloaded -Obtained CT of the chest which revealed multilobar pneumonia -Continue Zosyn - Strep pneumo and Legionella antigens are negative so we will discontinue azithromycin -Speech therapy to evaluate with history of stroke and Parkinson's - sputum culture pending if patient able to produce - Urine culture was negative - Blood cultures are negative at 48 hours - COVID and respiratory viral panels were unremarkable - Continue broad-spectrum antibiotics CHRISTY on CKD stage IIIb secondary to ischemic ATN - Baseline serum creatinine appears to be between 1.4 and 1.5 - Serum creatinine was 2.76 on admission and renal function continues to climb with most recent serum creatinine being 6.7 - 12 PM BMP - IV fluids discontinued as patient is oliguric and patient is now getting volume overloaded - Still may need May need bicarb drip depending on trends and bicarb and clinical status as he is tachypneic to compensate for his metabolic acidosis -Was given 1 amp of bicarb yesterday - Did discuss with patient and family he may need temporary dialysis overall electrolytes are relatively stable at this time so he may be able to give him some more time before initiating HD - Nephrology is following Acute anemia - Suspect related to volume status and overall illness - Has been fluctuating but relatively stable - No signs of bleeding - Repeat in a.m. Rhabdomyolysis -Resolving - CPK was greater than 18,000 - Trending down and is now 4431 - No need to repeat CK Urinary retention secondary to urethral stricture/hematuria - Larkin unable to be placed in the emergency department - Urology placed Larkin and will need to leave in at discharge - Continue Flomax 0.4 daily - Outpatient follow-up with Dr. 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 - Nephrology following DM-2 uncontrolled - Hyperglycemic on presentation but fasting blood sugar this morning was 167 - Hold home metformin - A1c was 8.1 indicative of poor overall control - Continue SSI - Accu-Cheks as ordered History of DVT - Has IVC filter - Continue heparin drip with severity of illness as he would not tolerate PE well - Restart Eliquis once renal function stabilizes 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 - Has chronic disability but lives alone--> per discussion with family they would like to get him into assisted living - Continue aspirin - PT/OT following Essential hypertension/hyperlipidemia - Continue home metoprolol - Hold home lisinopril with renal dysfunction - continue home statin Chronic HFrEF - Stable with no signs of decompensation - BNP is elevated however I suspect this is related to decreased clearance based on imaging and clinical status Parkinson's disease with recent fall - Continue home carbidopa levodopa - PT/OT following Seasonal allergies - Continue home loratadine History of developmental delay - Complicates overall medical history DVT prophylaxis - Heparin drip for now and restart apixaban once renal function is improved CODE STATUS - Full code Charges/Coding Visit Charges Inpatient E&M: 20250 Subs Hosp L2
[2024-10-20 08:24] LABS: Partial Thromboplast Time 69.6 Seconds (24.1-36.2)
[2024-10-20] MEDS: Piperacil/Tazobactam 3.375 GM in 0.9% Normal Saline (50mL MB+) 50 ML IV ×2 (10:00→21:11)
[2024-10-20] MEDS: Lactobacillis Acidophilus 1 CAP PO ×4 (10:26→21:09)
[2024-10-20] MEDS: HEPARIN/D5w 25,000 UNITS 25,000 UNITS/250 ML IV.SOLN. 8.6 UNITS CONT INF (12:39)
[2024-10-20 13:11] LABS: Anion Gap 17 (5-15); BUN 89 mg/dL (4-19); BUN/Creat Ratio 12.3 RATIO (10-20); Calcium,Total 8.2 mg/dL (7.6-11.0); Carbon Dioxide 17.1 mmol/L (21.0-32.0); Chloride 103 mmol/L (98-108); Estimated Creatinine Clearance 9.68 ml/min (50-250); Glucose 207 mg/dL (70-99); Potassium 3.6 mmol/L (3.3-5.1)
[2024-10-20 17:54] LABS: Partial Thromboplast Time 67.5 Seconds (24.1-36.2)
[2024-10-20] MEDS: 0.9% Saline Lock 10 ML Syringe IV (21:09)
[2024-10-21] VITALS (16 sets, daily range): BP systolic 94–138; BP diastolic 58–87; PULSE 93–106; RESP 12–34; TEMP 36.3–37.2; O2SAT 91–98
[2024-10-21 05:10] LABS: Hematocrit 28.7 % (40-54); Hemoglobin 9.8 g/dL (13.0-16.5); Immature Granulocytes Count 0.240 X10^3/uL (0.0-0.0); Mean Corp Hgb Conc 34.1 g/dL (32-36); Mean Corpuscular Volume 89.4 fL (80-94); Mean Platelet Vol. 11.1 fl (6.2-12.0); NRBC Flagged by Analyzer 0 % (0-5); Platelet Count 266 K/mm3 (150-450); RBC Distribution Width CV 13.4 % (11.6-14.6); RBC Distribution Width SD 44.2 fl (35.1-43.9); Red Blood Count 3.21 M/mm3 (4.6-6.2); White Blood Count 13.5 K/mm3 (4.4-11.0)
[2024-10-21 05:22] LABS: Partial Thromboplast Time 82.2 Seconds (24.1-36.2)
[2024-10-21 05:55] LABS: Anion Gap 17 (5-15); BUN 95 mg/dL (4-19); BUN/Creat Ratio 11.5 RATIO (10-20); Calcium,Total 8.2 mg/dL (7.6-11.0); Carbon Dioxide 17.7 mmol/L (21.0-32.0); Chloride 106 mmol/L (98-108); Estimated Creatinine Clearance 8.45 ml/min (50-250); Glucose 182 mg/dL (70-99); Potassium 3.6 mmol/L (3.3-5.1)
[2024-10-21] MEDS: Piperacil/Tazobactam 3.375 GM in 0.9% Normal Saline (50mL MB+) 50 ML IV ×2 (10:42→21:36)
--- NOTE | 2024-10-21 10:44 | PN.RENAL_ITS ---
Subjective Subjective Patient sitting in chair. His sisters are at bedside. No overnight events. Objective Data Objective Data Vital Signs: Vital Signs Temp Pulse Resp BP Pulse Ox O2 Del Method O2 Flow Rate 98.7 F 95 28 H 132/75 H 93 Nasal Cannula 3 10/21/24 06:00 10/21/24 06:00 10/21/24 06:00 10/21/24 06:00 10/21/24 09:16 10/21/24 09:16 10/21/24 09:16 Oxygen Flow Rate (L/min) 3 Oxygen Delivery Method Nasal Cannula Weight: 77.111 kg Body Mass Index (BMI) 24.3 Intake & Output: Intake and Output for Last 24 Hours 10/19/24 10/20/24 10/21/24 23:59 23:59 23:59 Intake Total 2952.24 / 3072.24 2377.11 / 2377.11 178.83 / 178.83 Output Total 150 / 220 320 / 470 275 / 275 Balance 2802.24 / 2852.24 2057.11 / 1907.11 -96.17 / -96.17 Lab / Micro Data 10/21/24 05:03 10/21/24 05:03 Labs: Laboratory Results - last 24 hr 10/20/24 11:48: Sodium 138, Potassium 3.6, Chloride 103, Carbon Dioxide 17.1 L, Anion Gap 17 H, BUN 89 H, Creatinine 7.23 H, Estim Creat Clear Calc 9.68 L*, Est GFR (MDRD) Non-Af 7 L, BUN/Creatinine Ratio 12.3, Glucose 207 H, Calcium 8.2 10/20/24 11:55: POC Glucose 190 H 10/20/24 17:20: APTT 67.5 H 10/20/24 21:06: POC Glucose 202 H 10/21/24 05:03: WBC 13.5 H, RBC 3.21 L, Hgb 9.8 L, Hct 28.7 L, MCV 89.4, MCH 30.5, MCHC 34.1, RDW Std Deviation 44.2 H, RDW Coeff of Sara 13.4, Plt Count 266, MPV 11.1, Immature Gran % (Auto) 1.800 H, Neut % (Auto) 81.2 H, Lymph % (Auto) 6.8 L, [place] % (Auto) 7.0, Eos % (Auto) 2.8, Baso % (Auto) 0.4, Absolute Neuts (auto) 10.9 H, Absolute Lymphs (auto) 0.92, Nucleated RBC % 0, APTT 82.2 H, Sodium 140, Potassium 3.6, Chloride 106, Carbon Dioxide 17.7 L, Anion Gap 17 H, BUN 95 H, Creatinine 8.28 H*, Estim Creat Clear Calc 8.45 L*, Est GFR (MDRD) Non-Af 6 L, BUN/Creatinine Ratio 11.5, Glucose 182 H, Calcium 8.2 10/21/24 06:25: POC Glucose 169 H Micro: Microbiology 10/21/24 09:23 Stool Clostridioides difficile (PCR) - Final 10/18/24 11:58 Urine Catheter - Taylor Urine Culture - Final Culture exhibits no growth. 10/17/24 18:30 Blood Culture (Wb) - Anticubital Right Blood Culture - Preliminary No growth in 48 hours. 10/17/24 18:34 Blood Culture (Wb) - Anticubital Left Blood Culture - Preliminary No growth in 48 hours. 10/19/24 10:15 Urine Catheter - Catheter Legionella Antigen - Final 10/19/24 10:15 Urine Catheter - Catheter Streptococcus pneumoniae Antigen (M - Final 10/19/24 17:55 Mucosa - Nasopharyngeal Respiratory Panel (PCR) - Final 10/19/24 18:11 Mucosa - Nose Coronavirus COVID-19 PCR - Final Physical Exam Narrative Alert and oriented no obvious distress s1s2 no murmurs lungs clear abdomen soft no pitting edema taylor + Assessment & Plan Assessment/Plan (1) CHRISTY (acute kidney injury): PLAN: - CHRISTY on possible CKD (SCr 1.11 July 2023). Admitted for fall and rhabdomyolysis 10/17. CPK 16,400 on admission, worsened to 18,000 on 10/18. Last CPK 4400 on 10/20. Serum creatinine 2.76 on admission and has been worsening. Today serum creatinine 8.28mg/dL. Potassium 3.6, bicarb 17.7. Total urine output documented for yesterday 320 mL (patient has taylor). Patient is heading towards needing renal placement therapy. Discussed with patient, and his 2 sisters (who have POA) about renal placement therapy, patient heading towards needing [facility]. Discussed risks and benefits of hemodialysis. Questions answered. All are in agreement with renal placement therapy. Plan was discussed with Dr. Chavez and Dr. Lake for patient needing dialysis access. Surgery team has been consulted. Once dialysis access obtained we will then plan for hemodialysis. We will continue to monitor for renal recovery. Assessment and plan reviewed with Dr. Chavez.
--- NOTE | 2024-10-21 11:20 | CASEMGMT ---
Addendum entered by Sunshine Tapia 10/21/24 11:42: SW discussed levels of care [place], LONG TERM and NH. Sister is considering these options. SW explained these options are private pay unless the patient would obtain Medicaid. Original Note: Social Work SW spoke with the sister Dragan regarding DC planning. SW informed the sister [facility] denied the referral. Renate reported their first choice for SNF is [facility] and [facility] for the second choice. The sister wants to keep the patient in the area so his friends can visit. The patient will be starting dialysis. JOSELINE Silva
--- NOTE | 2024-10-21 12:13 | CASEMGMT ---
Addendum entered by Leighann Coles 10/22/24 11:01: [facility] is requesting a MWF dialysis schedule if possible. Leighann Coles DC Planning Asst. Addendum entered by Leighann Coles 10/21/24 13:47: [facility] has accepted and is foc. [facility] asked to cancel referral. Leighann Coles DC Planning Asst Original Note: Discharge Planning Updates sent to [facility]. Referral sent to [facility] with acceptance. [facility] notified that msg to cancel referral was sent in error with request to review updated clinical. SW updated. Leighann Coles DC Planning Asst.
--- NOTE | 2024-10-21 12:55 | CASEMGMT ---
Social Work SW spoke w/pt, and pt's two sisters in the room. SW explained that [facility] did accept, for [facility] it will depend on dialysis. Also, [facility] actually had not said no, it was this SW's misunderstanding. Pt's sister states understanding. We reviewed the options, and at this point their choices would be 1. [facility] 2. [facility] and 3. [facility]. SW will continue to follow. GLENN Parker
--- NOTE | 2024-10-21 14:03 | PN_ITS ---
Subjective Subjective Patient seen and examined. He complains of diarrhea, and says he has had several sessions of diarrhea today. He denies any cough, chest pain, palpitations, dizziness, nausea or vomiting. Review of systems is otherwise negative. Objective Data Objective Data Vital Signs: Vital Signs Temp Pulse Resp BP Pulse Ox O2 Del Method O2 Flow Rate 97.4 F L 96 23 H 135/66 H 98 Nasal Cannula 2 10/21/24 13:00 10/21/24 13:00 10/21/24 13:00 10/21/24 13:00 10/21/24 13:00 10/21/24 13:00 10/21/24 13:00 Oxygen Flow Rate (L/min) 2 Oxygen Delivery Method Nasal Cannula Weight: 170 lb 0.01 oz Body Mass Index (BMI) 24.3 Intake & Output: Intake and Output for Last 24 Hours 10/19/24 10/20/24 10/21/24 23:59 23:59 23:59 Intake Total 2952.24 / 3072.24 2377.11 / 2377.11 178.83 / 178.83 Output Total 150 / 220 320 / 470 275 / 275 Balance 2802.24 / 2852.24 2057.11 / 1907.11 -96.17 / -96.17 Lab / Micro Data 10/21/24 05:03 10/21/24 05:03 Labs: Laboratory Results - last 24 hr 10/20/24 17:20: APTT 67.5 H 10/20/24 21:06: POC Glucose 202 H 10/21/24 05:03: WBC 13.5 H, RBC 3.21 L, Hgb 9.8 L, Hct 28.7 L, MCV 89.4, MCH 30.5, MCHC 34.1, RDW Std Deviation 44.2 H, RDW Coeff of Sara 13.4, Plt Count 266, MPV 11.1, Immature Gran % (Auto) 1.800 H, Neut % (Auto) 81.2 H, Lymph % (Auto) 6.8 L, [place] % (Auto) 7.0, Eos % (Auto) 2.8, Baso % (Auto) 0.4, Absolute Neuts (auto) 10.9 H, Absolute Lymphs (auto) 0.92, Nucleated RBC % 0, APTT 82.2 H, Sodium 140, Potassium 3.6, Chloride 106, Carbon Dioxide 17.7 L, Anion Gap 17 H, BUN 95 H, Creatinine 8.28 H*, Estim Creat Clear Calc 8.45 L*, Est GFR (MDRD) Non-Af 6 L, BUN/Creatinine Ratio 11.5, Glucose 182 H, Calcium 8.2 10/21/24 06:25: POC Glucose 169 H 10/21/24 11:35: POC Glucose 134 H Micro: Microbiology 10/21/24 09:23 Stool Enteric Bacteriology - Preliminary 10/21/24 09:23 Stool Clostridioides difficile (PCR) - Final 10/18/24 11:58 Urine Catheter - Larkin Urine Culture - Final Culture exhibits no growth. 10/17/24 18:30 Blood Culture (Wb) - Anticubital Right Blood Culture - Preliminary No growth in 48 hours. 10/17/24 18:34 Blood Culture (Wb) - Anticubital Left Blood Culture - Preliminary No growth in 48 hours. 10/19/24 10:15 Urine Catheter - Catheter Legionella Antigen - Final 10/19/24 10:15 Urine Catheter - Catheter Streptococcus pneumoniae Antigen (M - Final 10/19/24 17:55 Mucosa - Nasopharyngeal Respiratory Panel (PCR) - Final 10/19/24 18:11 Mucosa - Nose Coronavirus COVID-19 PCR - Final Physical Exam Const alert, oriented x3 and no apparent distress General Appearance: cooperative HEENT normocephalic, head/scalp atraumatic, moist oral mucous membranes and oropharynx normal Neck supple Lymph Lymphatic: no lymphedema noted Resp Resp Narrative: mildly diminished breath sounds bibasally, no wheezes or crackles. On 2L of oxygen by nasal canula Cardio regular rate, regular rhythm, S1 normal heart sound, S2 normal heart sound and no murmurs GI normal to inspection, nondistended, normoactive bowel sounds, soft to palpation, non-tender and non-distended Extremity normal capillary refill, no clubbing, cyanosis or edema and no calf tenderness General Extremity: no tenderness to palpation of joints or extremities Skin General Skin Exam: no breakdown Neuro CN's II-XII intact bilaterally and no focal motor deficits Motor Exam: general weakness Psych cooperative Psych Narrative: flat affect Assessment & Plan Assessment/Plan (1) High anion gap metabolic acidosis: (2) Urethral stricture: (3) Urinary retention: (4) Fall: QUALIFIERS: Encounter type: initial encounter Qualified Code(s): W19.XXXA - Unspecified fall, initial encounter (5) Rhabdomyolysis: QUALIFIERS: Rhabdomyolysis type: non-traumatic Qualified Code(s): M62.82 - Rhabdomyolysis PLAN: Plan #Sepsis due to multilobar pneumonia * Currently on [address] of the chest showed multilobar pneumonia. On IV Zosyn. * Urine for strep and Legionella antigens were negative. Speech therapy on board in light of history of stroke and Parkinson's disease. * Sputum culture is pending. COVID and respiratory panels were negative. #CHRISTY on CKD stage IIIb * Creatinine is up to over 8 today. His baseline creatinine seems to be around 1.4. * Nephrology on board. On bicarb. I did discuss with nephrology this morning and decision made that patient will require initiation of dialysis. General surgery consulted and heparin drip held # * #Rhabdomyolysis: * CPK still elevated at 4431. * However in light of the worsening kidney function it is difficult to see if this is very accurate or just due to decreased clearance. * Encourage oral hydration and continue hydration with IV fluids. * Dialysis should also help with this. * #Acute anemia: Hemoglobin today is 9.8. Remained stable. Will monitor. #Hematuria due to urethral stricture * Had urinary retention and urology had to be consulted to place a Larkin as he could not be placed in the ED. Having some mild hematuria but is clearing up. Likely traumatic as a result of passing the * To leave Larkin in situ on discharge and to follow-up with urology on outpatient basis. * #Type 2 diabetes mellitus: A1c is 8.1. On insulin sliding scale. ACT checks ACHS. Usually on metformin at home which is currently on hold. #History of DVT: Has IVC filter in situ. Was on Eliquis but now on heparin drip as he is in the hospital. Heparin drip held as it needs to be on hold for 6 hours before he can have the dialysis catheter inserted. 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 Lives alone currently. Family looking at getting him into assisted living. On aspirin. PT OT on board. #Benign essential hypertension: On metoprolol. Lisinopril held due to CHRISTY on CKD #Hyperlipidemia: On statin #Heart failure with reduced ejection fraction: Not in exacerbation. #Parkinson's disease with recent fall: PT OT on board. On levodopa carbidopa. #DVT prophylaxis: Currently on heparin drip which is on hold. Charges/Coding Visit Charges Inpatient E&M: 68889 Subs Hosp L3
--- NOTE | 2024-10-21 14:05 | CASEMGMT ---
Social Work SW spoke with the sister Renate and informed her that [facility] has accepted the patient but dialysis would need to be coordinated. The sister was agreeable. JOSELINE Silva
--- NOTE | 2024-10-21 16:30 | OP.PCM_ITS ---
Procedures Radiology CF Procedures [id number]: [id number] US GUIDE VASCULAR ACCESS Operative Report (Standard) Operative Information Date of Procedure: 10/21/24 Pre-Operative Diagnosis: Acute renal insufficiency Post-Operative Diagnosis: Acute renal insufficiency Surgery/Procedure Performed: Ultrasound-guided right IJ temporary dialysis catheter insertion shop girl: No Type of Anesthesia: Local Procedure Start Time: 15:45 Procedure Stop Time: 16:15 Select all DRAINS/GRAFTS/IMPLANTS that apply: Implanted device Implanted device details: 16 cm dialysis catheter Estimated Blood Loss: 20 mL Specimen collected: No Description of surgery: The patient is a 73-year-old male who was admitted with rhabdomyolysis and acute kidney injury after a fall. He was seen by nephrology as well as the [facility] medical team. His creatinine continued to rise and hemodialysis was recommended. In order to initiate dialysis, a temporary dialysis catheter was requested. We discussed the details of the planned procedure with the patient as well as his sister/POA. They wish to proceed. After obtaining informed consent and his heparin drip was held for at least 6 hours, the patient was placed supine on the hospital bed. The right side of the neck was then prepped and draped in the usual sterile manner. Ultrasound was used to locate the right internal jugular vein. The area was then injected with local anesthetic and the vein was then accessed on the first pass. The blood return was a dark red, nonpulsatile, venous appearing blood return. Guidewire was then threaded through the aperture and the needle. As this was advanced there was positive ectopy. The wire was withdrawn slightly until the ectopy ceased. #11 blade was then used to make a small skin incision. Dilators were then inserted and then finally the temporary dialysis catheter was also placed over the guidewire. The guidewire was then withdrawn. Both the lumen of the catheter was then flushed with injectable saline. They both latrice and flushed easily. The catheter was then sutured to the skin using the supplied suture material in the kit. Both ports were flushed with heparin. The area was cleaned and a dressing was then applied. He tolerated the procedure well. Chest x-ray has been ordered. Surgical Findings: See operative note Complications Complications: No Admit VTE Documentation VTE Present on Admission: No VTE Mechan Device Prophylaxis: SCD's VTE Pharm Prophylaxis ordered?: No Reason prophylaxis not ordered: Treatment Not Indicated
--- NOTE | 2024-10-21 16:30 | RAD_ITS ---
EXAM: XR Chest, 1 View CLINICAL INDICATION: NEW LINE TECHNIQUE: Frontal view of the chest. COMPARISON: XR Chest dated 10/19/2024 FINDINGS: LUNGS AND PLEURAL SPACES: See below. HEART: Cardiomegaly with mild congestion. MEDIASTINUM: Unremarkable. Normal mediastinal contour. BONES/JOINTS: Unremarkable. No acute fracture. TUBES, LINES AND DEVICES: Right internal jugular central venous catheter tip in the superior vena cava. RAD/CXR for Line Placement IMPRESSION: Cardiomegaly with mild congestion. Reading Location: [id number]
--- NOTE | 2024-10-21 16:42 | EX.PCM.CON.S ---
Assessment & Plan Assessment/Plan (1) Rhabdomyolysis: QUALIFIERS: Rhabdomyolysis type: non-traumatic Qualified Code(s): M62.82 - Rhabdomyolysis PLAN: Plan The patient is a 73-year-old male who has developed acute kidney injury after a fall at home and resultant rhabdomyolysis. Temporary dialysis catheter has been placed. Primary medical team and nephrology are free to utilize the line for dialysis purposes. HPI Consult Data Date of Consult: 10/21/24 HPI Narrative Reason for Consultation: Insertion of temporary dialysis catheter HPI Narrative: GUSTAVO CHADWICK, is a 73 M who was admitted to [facility] recently after a fall at home. Patient has multiple medical problems including hypertension, hyperlipidemia, diabetes, developmental delay, DVT, Parkinson's disease, multiple strokes, constipation. He was admitted to a fall at home and presumed to have been down for quite some time as he presented with hematuria and rhabdomyolysis. He also had hyperglycemia. He was admitted for sepsis and was also found to have acute kidney injury. His creatinine has continued to rise and nephrology is recommending hemodialysis. As result a temporary dialysis catheter was requested. Patient was on a heparin drip and this needed to be held prior to insertion. Details of the procedure were discussed with the patient as well as his 2 sisters. All 4 were in agreement with proceeding. We discussed the details of the procedure including risk benefits and alternatives [facility] Medical History Facial droop Dysphagia Primary cardiomyopathy Essential (primary) hypertension Diastolic heart failure History of developmental delay History of DVT (deep vein thrombosis) Remote history of stroke DM II (diabetes mellitus, type II), controlled Dysarthria Stroke/cerebrovascular accident Home Medications ?Medication ?Instructions ?Recorded ?Last Taken ?Type multivitamin 1 cap PO DAILY supplement 12/26/21 11/24/22 History atorvastatin 40 mg tablet 40 mg PO QHS #30 tabs 12/05/22 Unknown Rx lisinopril 2.5 mg tablet 2.5 mg PO DAILY #30 tabs 12/05/22 Unknown Rx metoprolol succinate 25 mg 25 mg PO DAILY #30 tabs 12/05/22 Unknown Rx tablet,extended release 24 hr loratadine 10 mg tablet (Allergy 10 mg PO DAILY 01/20/23 Unknown History Relief (loratadine)) sennosides 8.6 mg tablet (Senna 8.6 mg PO QHS 01/20/23 Unknown History Lax) metformin 500 mg tablet 500 mg PO DAILY 05/23/23 Unknown History pantoprazole 20 mg tablet,delayed 20 mg PO DAILY 05/23/23 Unknown History release apixaban 5 mg tablet (Eliquis) 5 mg PO BID 11/09/23 Unknown History aspirin 81 mg chewable tablet 81 mg PO QDAY 11/09/23 Unknown History carbidopa 25 mg-levodopa 100 mg 2 tab PO TID 11/09/23 Unknown History tablet ipratropium bromide 21 mcg (0.03 2 spray intranasal TID PRN nasal 11/09/23 Unknown History %) nasal spray congestion Allergy/AdvReac Type Severity Reaction Status Date / Time No Known Allergies Allergy Verified 10/17/24 22:17 Family History Father Diabetes Social History household members: none housing: apartment number of children: 0 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 pets and animals: No Smoking Status: Never smoker alcohol intake: never substance use type: does not use Physical Exam Const alert and no apparent distress General Appearance: cooperative Neck full ROM Resp normal respiratory effort Lab / Micro Data 10/21/24 05:03 10/21/24 05:03 Labs: Laboratory Results - last 24 hr 10/20/24 17:20: APTT 67.5 H 10/20/24 21:06: POC Glucose 202 H 10/21/24 05:03: WBC 13.5 H, RBC 3.21 L, Hgb 9.8 L, Hct 28.7 L, MCV 89.4, MCH 30.5, MCHC 34.1, RDW Std Deviation 44.2 H, RDW Coeff of Sara 13.4, Plt Count 266, MPV 11.1, Immature Gran % (Auto) 1.800 H, Neut % (Auto) 81.2 H, Lymph % (Auto) 6.8 L, Hinds % (Auto) 7.0, Eos % (Auto) 2.8, Baso % (Auto) 0.4, Absolute Neuts (auto) 10.9 H, Absolute Lymphs (auto) 0.92, Nucleated RBC % 0, APTT 82.2 H, Sodium 140, Potassium 3.6, Chloride 106, Carbon Dioxide 17.7 L, Anion Gap 17 H, BUN 95 H, Creatinine 8.28 H*, Estim Creat Clear Calc 8.45 L*, Est GFR (MDRD) Non-Af 6 L, BUN/Creatinine Ratio 11.5, Glucose 182 H, Calcium 8.2 10/21/24 06:25: POC Glucose 169 H 10/21/24 11:35: POC Glucose 134 H Micro: Microbiology 10/21/24 09:23 Stool Enteric Bacteriology - Preliminary 10/21/24 09:23 Stool Clostridioides difficile (PCR) - Final
[2024-10-21] MEDS: Lactobacillis Acidophilus 1 CAP PO (21:36)
[2024-10-21] MEDS: Senna Tablet 1 TABLET PO (21:36)
[2024-10-21] MEDS: 0.9% Saline Lock 10 ML Syringe IV ×2 (21:48→22:30)
[2024-10-22] VITALS (20 sets, daily range): BP systolic 114–146; BP diastolic 60–82; PULSE 86–103; RESP 19–30; TEMP 36.4–37.1; O2SAT 88–99; BMI 24.3; BMI 24.2
[2024-10-22] MEDS: HEPARIN/D5w 25,000 UNITS 25,000 UNITS/250 ML IV.SOLN. 7.6 UNITS CONT INF (04:40)
[2024-10-22 05:05] LABS: Hematocrit 28.7 % (40-54); Hemoglobin 9.7 g/dL (13.0-16.5); Mean Corp Hgb Conc 33.8 g/dL (32-36); Mean Corpuscular Volume 89.1 fL (80-94); Mean Platelet Vol. 11.4 fl (6.2-12.0); POSITIVE MORPHOLOGY YES; Platelet Count 319 K/mm3 (150-450); RBC Distribution Width CV 13.5 % (11.6-14.6); RBC Distribution Width SD 44.5 fl (35.1-43.9); Red Blood Count 3.22 M/mm3 (4.6-6.2); White Blood Count 12.1 K/mm3 (4.4-11.0)
[2024-10-22 05:50] LABS: Anion Gap 18 (5-15); BUN 98 mg/dL (4-19); BUN/Creat Ratio 10.2 RATIO (10-20); Calcium,Total 8.1 mg/dL (7.6-11.0); Carbon Dioxide 17.6 mmol/L (21.0-32.0); Chloride 106 mmol/L (98-108); Estimated Creatinine Clearance 7.33 ml/min (50-250); Glucose 169 mg/dL (70-99); Potassium 3.7 mmol/L (3.3-5.1)
[2024-10-22 06:09] LABS: Partial Thromboplast Time 54.5 Seconds (24.1-36.2)
[2024-10-22] MEDS: Heparin Injection (Vial) 5,000 UNIT/ML VIAL IV ×2 (06:34→21:32)
[2024-10-22 08:24] LABS: Differential Indicated MANUAL DIFF
[2024-10-22 08:30] LABS: Neutrophil-Segmented 90 % (47-70); Red Cell Morphology NORM C+C NORMAL (NORM C&C); Total Cells Counted 100 (MANUAL DIFF)
--- NOTE | 2024-10-22 08:36 | PCM.PN.SRG ---
Subjective Subjective Patient evaluated resting comfortably in bed. He denies any concerns with the right temporary dialysis catheter. Objective Data Objective Data Vital Signs: Vital Signs Temp Pulse Resp BP Pulse Ox O2 Del Method O2 Flow Rate 98.0 F 92 27 H 134/76 H 97 Nasal Cannula 2 10/22/24 02:02 10/22/24 03:00 10/22/24 03:00 10/22/24 03:00 10/22/24 03:00 10/22/24 08:01 10/22/24 03:00 Oxygen Flow Rate (L/min) 2 Oxygen Delivery Method Nasal Cannula Weight: 170 lb 0.01 oz Body Mass Index (BMI) 24.3 Intake & Output: Intake and Output for Last 24 Hours 10/20/24 10/21/24 10/22/24 23:59 23:59 23:59 Intake Total 2377.11 / 2377.11 228.83 / 228.83 110.54 / 110.54 Output Total 320 / 470 575 / 725 300 / 300 Balance 2057.11 / 1907.11 -346.17 / -496.17 -189.46 / -189.46 Lab / Micro Data 10/22/24 04:40 10/22/24 04:40 Labs: Laboratory Results - last 24 hr 10/21/24 11:35: POC Glucose 134 H 10/21/24 17:16: POC Glucose 142 H 10/21/24 21:45: POC Glucose 227 H 10/22/24 04:40: WBC 12.1 H, RBC 3.22 L, Hgb 9.7 L, Hct 28.7 L, MCV 89.1, MCH 30.1, MCHC 33.8, RDW Std Deviation 44.5 H, RDW Coeff of Sara 13.5, Plt Count 319, MPV 11.4, Neut % (Auto) Not Reportable, Absolute Neuts (auto) 10.9 H, Absolute Lymphs (auto) 1.21, Total Counted 100, Neutrophils % (Manual) 90 H, Lymphocytes % (Manual) 10 L, Platelet Estimate ADEQUATE, RBC Morphology NORM C+C, APTT 54.5 H, Sodium 142, Potassium 3.7, Chloride 106, Carbon Dioxide 17.6 L, Anion Gap 18 H, BUN 98 H, Creatinine 9.55 H*, Estim Creat Clear Calc 7.33 L*, Est GFR (MDRD) Non-Af 5 L, BUN/Creatinine Ratio 10.2, Glucose 169 H, Calcium 8.1 10/22/24 06:18: POC Glucose 148 H Micro: Microbiology 10/21/24 09:23 Stool Enteric Bacteriology - Final 10/21/24 09:23 Stool Clostridioides difficile (PCR) - Final 10/18/24 11:58 Urine Catheter - Larkin Urine Culture - Final Culture exhibits no growth. 10/17/24 18:30 Blood Culture (Wb) - Anticubital Right Blood Culture - Preliminary No growth in 48 hours. 10/17/24 18:34 Blood Culture (Wb) - Anticubital Left Blood Culture - Preliminary No growth in 48 hours. 10/19/24 10:15 Urine Catheter - Catheter Legionella Antigen - Final 10/19/24 10:15 Urine Catheter - Catheter Streptococcus pneumoniae Antigen (M - Final 10/19/24 17:55 Mucosa - Nasopharyngeal Respiratory Panel (PCR) - Final 10/19/24 18:11 Mucosa - Nose Coronavirus COVID-19 PCR - Final Radiography Diagnostic Testing: Radiology Impression Chest X-Ray 10/21/24 16:30 IMPRESSION: Cardiomegaly with mild congestion. Reading Location: [facility] Physical Exam Neck Neck Narrative: Right IJ temporary dialysis- intact. No bleeding or oozing noted. Assessment & Plan Assessment/Plan (1) CHRISTY (acute kidney injury): PLAN: I am following this patient in conjunction with Dr. Palacios. He will independently evaluate this patient. Catheter intact and ready to be used Dialysis is to be started today We will follow this patient as needed at this time Charges/Coding Visit Charges Inpatient E&M: 49224 Subs Hosp L1
[2024-10-22] MEDS: 0.9% Saline Lock 10 ML Syringe IV ×4 (08:50→21:48)
[2024-10-22] MEDS: PureFlow B 3K Dialysis Soln 1 BAG 6 BAG PF (08:51)
[2024-10-22] MEDS: 0.9% Normal Saline 1,000 ML IV.SOLN. 1000 ML OPERA.SITE ×2 (08:51→10:21)
[2024-10-22 09:45] LABS: Hepatitis B Surface Antigen Nonreactive (Nonreactive)
--- NOTE | 2024-10-22 12:16 | US_ITS ---
PROCEDURE: KIDNEY AND BLADDER 10/22/2024 REASON FOR EXAM: CHRISTY TECHNIQUE: Procedure Code: USKI Modality: US Procedure: KIDNEY AND BLADDER COMPARISON: None FINDINGS: Kidneys: Normal renal sizes, parenchymal thicknesses, and echotextures. [place]: None Cysts or Masses: No cysts or large solid renal masses. Other: None RIGHT Kidney Size: 9.2 cm x 5.5 cm x 5.1 cm Cortical Thickness (if discernible): 16 mm (>6mm is normal) LEFT Kidney Size: 11.3 cm x 6.5 cm x 6.5 cm Cortical Thickness (if discernible): 16 mm (>6mm is normal) The bladder was not visualized. A Larkin catheter seen within it. US/Kidney and Bladder IMPRESSION: NORMAL RENAL ULTRASOUND. Reading Location: [place] [id number]
--- NOTE | 2024-10-22 12:17 | PN.RENAL_ITS ---
Subjective Subjective seen on HD Objective Data Objective Data Vital Signs: Vital Signs Temp Pulse Resp BP Pulse Ox O2 Del Method O2 Flow Rate 98.0 F 87 28 H 146/75 H 97 Room Air 2 10/22/24 02:02 10/22/24 12:00 10/22/24 12:00 10/22/24 12:00 10/22/24 12:00 10/22/24 12:00 10/22/24 11:00 Oxygen Flow Rate (L/min) 2 Oxygen Delivery Method Room Air Weight: 77.1 kg Body Mass Index (BMI) 24.3 Intake & Output: Intake and Output for Last 24 Hours 10/20/24 10/21/24 10/22/24 23:59 23:59 23:59 Intake Total 2377.11 / 2377.11 228.83 / 228.83 110.54 / 110.54 Output Total 320 / 470 575 / 725 300 / 300 Balance 2057.11 / 1907.11 -346.17 / -496.17 -189.46 / -189.46 Lab / Micro Data 10/22/24 04:40 10/22/24 04:40 Labs: Laboratory Results - last 24 hr 10/21/24 17:16: POC Glucose 142 H 10/21/24 21:45: POC Glucose 227 H 10/22/24 04:40: WBC 12.1 H, RBC 3.22 L, Hgb 9.7 L, Hct 28.7 L, MCV 89.1, MCH 30.1, MCHC 33.8, RDW Std Deviation 44.5 H, RDW Coeff of Sara 13.5, Plt Count 319, MPV 11.4, Neut % (Auto) Not Reportable, Absolute Neuts (auto) 10.9 H, Absolute Lymphs (auto) 1.21, Total Counted 100, Neutrophils % (Manual) 90 H, Lymphocytes % (Manual) 10 L, Platelet Estimate ADEQUATE, RBC Morphology NORM C+C, APTT 54.5 H, Sodium 142, Potassium 3.7, Chloride 106, Carbon Dioxide 17.6 L, Anion Gap 18 H, BUN 98 H, Creatinine 9.55 H*, Estim Creat Clear Calc 7.33 L*, Est GFR (MDRD) Non-Af 5 L, BUN/Creatinine Ratio 10.2, Glucose 169 H, Calcium 8.1 10/22/24 06:18: POC Glucose 148 H 10/22/24 08:15: Hep Bs Antigen Nonreactive Micro: Microbiology 10/21/24 09:23 Stool Enteric Bacteriology - Final 10/21/24 09:23 Stool Clostridioides difficile (PCR) - Final 10/18/24 11:58 Urine Catheter - Taylor Urine Culture - Final Culture exhibits no growth. 10/17/24 18:30 Blood Culture (Wb) - Anticubital Right Blood Culture - Preliminary No growth in 48 hours. 10/17/24 18:34 Blood Culture (Wb) - Anticubital Left Blood Culture - Preliminary No growth in 48 hours. 10/19/24 10:15 Urine Catheter - Catheter Legionella Antigen - Final 10/19/24 10:15 Urine Catheter - Catheter Streptococcus pneumoniae Antigen (M - Final 10/19/24 17:55 Mucosa - Nasopharyngeal Respiratory Panel (PCR) - Final 10/19/24 18:11 Mucosa - Nose Coronavirus COVID-19 PCR - Final Radiography Diagnostic Testing: Radiology Impression Chest X-Ray 10/21/24 16:30 IMPRESSION: Cardiomegaly with mild congestion. Reading Location: [facility] Physical Exam Narrative Alert and oriented no obvious distress s1s2 no murmurs lungs clear abdomen soft no pitting edema taylor + Assessment & Plan Assessment/Plan (1) CHRISTY (acute kidney injury): PLAN: - CHRISTY on possible CKD (SCr 1.11 July 2023). He was initially admitted to the hospital with a fall and rhabdomyolysis. Admission creatinine was 2.4, CPK level was 18,000. CPK levels have trended down however he had progressive renal failure. Nonoliguric. At this point we will consider alternative etiologies for acute renal failure. Renal ultrasound ordered Serologies ordered Initiated on dialysis 10/21/2024. Today second treatment.
[2024-10-22 13:01] LABS: Partial Thromboplast Time 84.9 Seconds (24.1-36.2)
[2024-10-22] MEDS: Piperacil/Tazobactam 3.375 GM in 0.9% Normal Saline (50mL MB+) 50 ML IV ×2 (13:11→21:42)
[2024-10-22] MEDS: Lactobacillis Acidophilus 1 CAP PO ×3 (13:11→16:20)
--- NOTE | 2024-10-22 13:36 | PN_ITS ---
Subjective Subjective Patient seen and examined. He was having dialysis. He was drowsy but woke up to communicate. He had no active complaints. He denied any fever or chills, nausea or vomiting. His diarrhea had resolved. Review of systems otherwise negative. Creatinine has trended up further to 9.55 today. Objective Data Objective Data Vital Signs: Vital Signs Temp Pulse Resp BP Pulse Ox O2 Del Method O2 Flow Rate 97.5 F L 87 25 H 146/77 H 98 Room Air 2 10/22/24 12:10/22/24 12:10/22/24 12:10/22/24 12:10/22/24 12:10/22/24 12:10/22/24 11:00 Oxygen Flow Rate (L/min) 2 Oxygen Delivery Method Room Air Weight: 168 lb 11.163 oz Body Mass Index (BMI) 24.2 Intake & Output: Intake and Output for Last 24 Hours 10/20/24 10/21/24 10/22/24 23:59 23:59 23:59 Intake Total 2377.11 / 2377.11 228.83 / 228.83 167.16 / 167.16 Output Total 320 / 470 575 / 725 880 / 880 Balance 2057.11 / 1907.11 -346.17 / -496.17 -712.84 / -712.84 Lab / Micro Data 10/22/24 04:40 10/22/24 04:40 Labs: Laboratory Results - last 24 hr 10/20/24 16:38: POC Glucose 223 H 10/21/24 17:16: POC Glucose 142 H 10/21/24 21:45: POC Glucose 227 H 10/22/24 04:40: WBC 12.1 H, RBC 3.22 L, Hgb 9.7 L, Hct 28.7 L, MCV 89.1, MCH 30.1, MCHC 33.8, RDW Std Deviation 44.5 H, RDW Coeff of Sara 13.5, Plt Count 319, MPV 11.4, Neut % (Auto) Not Reportable, Absolute Neuts (auto) 10.9 H, Absolute Lymphs (auto) 1.21, Total Counted 100, Neutrophils % (Manual) 90 H, Lymphocytes % (Manual) 10 L, Platelet Estimate ADEQUATE, RBC Morphology NORM C+C, APTT 54.5 H, Sodium 142, Potassium 3.7, Chloride 106, Carbon Dioxide 17.6 L, Anion Gap 18 H, BUN 98 H, Creatinine 9.55 H*, Estim Creat Clear Calc 7.33 L*, Est GFR (MDRD) Non-Af 5 L, BUN/Creatinine Ratio 10.2, Glucose 169 H, Calcium 8.1 10/22/24 06:18: POC Glucose 148 H 10/22/24 08:15: Hep Bs Antigen Nonreactive 10/22/24 12:30: APTT 84.9 H 10/22/24 12:38: POC Glucose 121 H Micro: Microbiology 10/21/24 09:23 Stool Enteric Bacteriology - Final 10/21/24 09:23 Stool Clostridioides difficile (PCR) - Final 10/18/24 11:58 Urine Catheter - Larkin Urine Culture - Final Culture exhibits no growth. 10/17/24 18:30 Blood Culture (Wb) - Anticubital Right Blood Culture - Preliminary No growth in 48 hours. 10/17/24 18:34 Blood Culture (Wb) - Anticubital Left Blood Culture - Preliminary No growth in 48 hours. 10/19/24 10:15 Urine Catheter - Catheter Legionella Antigen - Final 10/19/24 10:15 Urine Catheter - Catheter Streptococcus pneumoniae Antigen (M - Final 10/19/24 17:55 Mucosa - Nasopharyngeal Respiratory Panel (PCR) - Final 10/19/24 18:11 Mucosa - Nose Coronavirus COVID-19 PCR - Final Radiography Diagnostic Testing: Radiology Impression Chest X-Ray 10/21/24 16:30 IMPRESSION: Cardiomegaly with mild congestion. Reading Location: [facility] Physical Exam Const alert, oriented x3, no apparent distress, average body habitus and well nourished; Negative for healthy appearing Constitutional Narrative: Somnolent, older, white male, with bradykinesia and a flat affect, appears comfortable, does not appear toxic, lying in bed, nursing at bedside, patient appears comfortable recurrently, sick but not toxic General Appearance: cooperative HEENT normocephalic, head/scalp atraumatic, hearing grossly normal bilaterally, moist oral mucous membranes and oropharynx normal Eyes PERRL, EOMs intact bilaterally and conjunctivae normal Eyes Narrative: No scleral icterus Neck no lymphadenopathy, supple and no JVD Neck Narrative: Trachea midline Lymph Lymphatic: no lymphedema noted Resp Resp Narrative: Mildly diminished breath sounds bibasilar. No wheezes or crackles. On room air. Effort and Inspection: tachypneic Auscultation: Negative for rales, rhonchi or wheezes Cardio regular rate, regular rhythm, S1 normal heart sound, S2 normal heart sound and no murmurs GI normal to inspection, nondistended, normoactive bowel sounds, soft to palpation, non-tender and non-distended Extremity normal capillary refill, no clubbing, cyanosis or edema and no calf tenderness General Extremity: no tenderness to palpation of joints or extremities Skin Skin Narrative: dialysis catheter in situ General Skin Exam: no breakdown Neuro oriented x3, CN's II-XII intact bilaterally, moves all extremities and no focal motor deficits Sensorium / Orientation: awake and alert Speech: speech normal Motor Exam: general weakness Psych cooperative; Negative for affect normal Psych Narrative: flat affect Assessment & Plan Assessment/Plan (1) High anion gap metabolic acidosis: (2) Urethral stricture: (3) Urinary retention: (4) Fall: QUALIFIERS: Encounter type: initial encounter Qualified Code(s): W19.XXXA - Unspecified fall, initial encounter (5) Rhabdomyolysis: QUALIFIERS: Rhabdomyolysis type: non-traumatic Qualified Code(s): M62.82 - Rhabdomyolysis PLAN: Plan #Sepsis due to multilobar pneumonia * now on room air. CT of the chest showed multilobar pneumonia. On IV Zosyn. * Urine for strep and Legionella antigens were negative. Speech therapy on board in light of history of stroke and Parkinson's disease. * Sputum culture is pending. COVID and respiratory panels were negative. #CHRISTY on CKD stage IIIb * Creatinine is up to 9.55 today today. His baseline creatinine seems to be around 1.4. * Nephrology on board. On bicarb. * Had insertion of dialysis catheter done yesterday and patient undergoing dialysis. * #Rhabdomyolysis: * CPK was still elevated yesterday but this was likely due to decreased clearance from the acute renal failure * However in light of the worsening kidney function it is difficult to see if this is very accurate or just due to decreased clearance. * Encourage oral hydration and continue hydration with IV fluids. * Has been compliant on dialysis today so that should help with this. * #Acute anemia: Hemoglobin today is 9.7. Remained stable. Will monitor. #Hematuria due to urethral stricture * Had urinary retention and urology had to be consulted to place a Larkin as he could not be placed in the ED. Having some mild hematuria but is clearing up. Likely traumatic as a result of passing the Larkin. * To leave Lrakin in situ on discharge and to follow-up with urology on outpatient basis. * #Type 2 diabetes mellitus: A1c is 8.1. On insulin sliding scale. Accuhecks ACHS. Usually on metformin at home which is currently on hold. #History of DVT: Has IVC filter in situ. Was on Eliquis but now on heparin drip as he is in the hospital. Heparin drip held as it needs to be on hold for 6 hours before he can have the dialysis catheter inserted. 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 Lives alone currently. Family looking at getting him into assisted living. On aspirin. PT OT on board. #Benign essential hypertension: On metoprolol. Lisinopril held due to CHRISTY on CKD #Hyperlipidemia: On statin #Heart failure with reduced ejection fraction: Not in exacerbation. #Parkinson's disease with recent fall: PT OT on board. On levodopa carbidopa. #DVT prophylaxis: Currently on heparin drip Charges/Coding Visit Charges Inpatient E&M: 79014 Subs Hosp L2
[2024-10-22 19:37] LABS: Partial Thromboplast Time 48.4 Seconds (24.1-36.2)
[2024-10-22] MEDS: HEPARIN/D5w 25,000 UNITS 25,000 UNITS/250 ML IV.SOLN. 8.6 UNITS CONT INF (21:29)
[2024-10-22] MEDS: Senna Tablet 1 TABLET PO (21:41)
[2024-10-22] MEDS: 0.9% Normal Saline (250mL Bag) 250 ML 15 ML IV (21:43)
[2024-10-23] VITALS (30 sets, daily range): BP systolic 114–151; BP diastolic 59–87; PULSE 81–98; RESP 13–81; TEMP 36.4–37.5; O2SAT 89–98; BMI 24.2; BMI 23.8
[2024-10-23 04:45] LABS: Partial Thromboplast Time 82.7 Seconds (24.1-36.2)
[2024-10-23 05:08] LABS: Anion Gap 15 (5-15); BUN 70 mg/dL (4-19); BUN/Creat Ratio 9.9 RATIO (10-20); Calcium,Total 8.1 mg/dL (7.6-11.0); Carbon Dioxide 20.8 mmol/L (21.0-32.0); Chloride 105 mmol/L (98-108); Estimated Creatinine Clearance 9.84 ml/min (50-250); Glucose 166 mg/dL (70-99); Potassium 3.4 mmol/L (3.3-5.1)
[2024-10-23] MEDS: HEPARIN/D5w 25,000 UNITS 25,000 UNITS/250 ML IV.SOLN. 7.6 UNITS CONT INF (05:24)
[2024-10-23 06:14] LABS: Differential Indicated MANUAL DIFF; Hematocrit 26.1 % (40-54); Hemoglobin 9.0 g/dL (13.0-16.5); Mean Corp Hgb Conc 34.5 g/dL (32-36); Mean Corpuscular Volume 89.1 fL (80-94); Mean Platelet Vol. 11.1 fl (6.2-12.0); Platelet Count 339 K/mm3 (150-450); RBC Distribution Width CV 13.8 % (11.6-14.6); RBC Distribution Width SD 44.8 fl (35.1-43.9); Red Blood Count 2.93 M/mm3 (4.6-6.2); White Blood Count 11.8 K/mm3 (4.4-11.0)
[2024-10-23 06:15] LABS: Neutrophil-Band 20 % (0-5); Neutrophil-Segmented 64 % (47-70)
[2024-10-23 06:16] LABS: Red Cell Morphology NORM C+C NORMAL (NORM C&C)
--- NOTE | 2024-10-23 09:13 | SP.MBSS_ITS ---
Modified Barium Swallow Patient Information Study Date: 10/23/24 Study Time: 10:30 Direct Billable Minutes: 84 Total Minutes procedure & reportin Diagnosis: Parkinson's disease G20.A1 Referring Physician: Rosmery Lake Reason for Referral: Objectively assess swallow function, assess risk for aspiration, and determine recommendations for least restrictive diet textures and compensatory strategies to improve safety of swallow. Medical History: The patient w/ PMH below presented to [facility] ED 10/17/2024 w/ fall. BSE ordered due to concern for swallowing difficulty w/ RN observing coughing intermittently at bedside during meals. He was recommended for Regular textures / Thin liquids w/ direct supervision and recommendations for ST to follow for diet tolerance and monitor respiratory status due to crackles in lower lobes BL w/ consideration for MBSS if concern for poor diet tolerance or change in respiratory status. Pt had some difficulty w/ lunch yesterday and ST re-evaluated at bedside. Pt had no coughing w/ sandwich, but he avoided the crust and stated preference for softer textures when asked by [employer] why he through out the crust. He did have delayed coughing w/ sequential sips of thin liquids. [employer] recommended downgrade to Easy to Chew textures / Thin liquids w/ continued direct supervision and recomm endation for MBSS on this date to further assess concerns for swallow dysfunction and risk for aspiration, especially given hx of prior CVAs and PD. Relevant PMH below: Facial droop Dysphagia Primary cardiomyopathy Essential (primary) hypertension Diastolic heart failure History of developmental delay History of DVT (deep vein thrombosis) Remote history of stroke DM II (diabetes mellitus, type II), controlled Dysarthria Stroke/cerebrovascular accident Per RN Sary, pt is diagnosed with Parkinson's, as well. Current Diet Ordered: Easy to Chew textures / Thin liquids Dentition: WNL and Natural Teeth Mental Status: Impaired (Cognitive change per EMR) Respiratory Status: Oxygenating on 2L/M nasal cannula Penetration-Aspiration Scale Penetration-Aspiration Scale: OBJECTIVE ASSESSMENT OF SWALLOW FUNCTION (QUANTITATIVE ? PER TRIAL): PENETRATION / ASPIRATION SCALE (LOPEZ): 1 = does not enter airway 2 = enters airway/above vocal folds/ejected 3 = enters airway/above vocal folds/not ejected 4 = enters airway/contacts vocal folds/ejected 5 = enters airway/contacts vocal folds/not ejected 6 = enters airway/below vocal folds/ejected 7 = enters airway/below vocal folds/not ejected despite effort 8 = enters airway/below vocal folds/no effort VIDEOFLOROSCOPIC SCALE SCORE (LOPEZ): Grade I = aspiration of material that has penetrated into the laryngeal vestibule, intact cough reflex Grade II = aspiration < 10 % of the bolus, intact cough reflex Grade III = aspiration of < 10 % of the bolus, reduced cough reflex or aspiration of > 10 % of the bolus, intact cough reflex Grade IV = aspiration of > 10 % of the bolus, reduced cough reflex Penetration-Aspiration Scale Score Thin Liquid via teaspoon: Result: 1= does not enter airway Thin Liquid via teaspoon Trial 2: Result: 1= does not enter airway Thin Liquid via small single sip: cup: Result: 1= does not enter airway Thin Liquid via sequential sips: cup: Result: 2= enter airway/above vocal folds/ejected Comment: Initially, PAS of 3, but reflexive cough fully cleared trace amount of penetrated contrast from the laryngeal vestibule. Esophageal screen - Complete clearance. [place] Thick Liquid via small single sip: cup: Result: 1= does not enter airway Pudding via teaspoon: Result: 1= does not enter airway Comment: Esophageal screen - Retention in the middle and lower esophagus w/ retrograde flow to the upper esophagus. Thin Liquid via single sip: straw: Result: 1= does not enter airway Comment: Esophageal screen - Thin liquid wash somewhat cleared retention of barium pudding through the LES; however, continued retention of barium in the middle and lower esophagus w/ retrograde flow after the trial. 1/2 Cookie: Result: 1= does not enter airway Comment: Esophageal screen - Mild retention in the lower esophagus. Thin Liquid via sequential sips:straw: Result: 1= does not enter airway Comment: Esophageal screen - Liquid wash cleared remaining cookie residue. Mild retention of liquids in the middle esophagus w/ retrograde flow, which mostly emptied through the LES by the end of the esophageal screen. Oral Phase Labial Seal: No Labial Escape Tongue Control During Bolus Hold: Posterior escape of greater than half of bolus Bolus Preparation/Mastication: Timely and efficient chewing and mashing Bolus Transport/Lingual Motion: Delayed initiation of tongue motion Oral Residue: Majority of bolus remaining (piecemeal deglutition w/ liquids and cookie) Pharyngeal Phase Initiation of Pharyngeal Swallow: Bolus head in pyriforms Soft Palate Elevation: Trace column of contrast/air between soft palate and pharyngeal wall Laryngeal Elevation: Partial superior movement thyroid cart/partial apprx aryt- epig petiole Anterior Hyoid Excursion: Partial anterior movement Epiglottic Movement: Complete inversion Laryngeal Vestibule Closure at Height of Swallow: Incomplete; narrow column of air/contrast in laryngeal vestibule Pharyngeal Stripping Wave: Present - diminished Pharyngoesophageal Segment Opening: Complete distension and complete duration; no obstruction of flow Tongue Base Retraction: Narrow column of contrast between tongue base & post. pharyngeal wall Pharyngeal Residue: Collection of residue within or on pharyngeal structures Esophageal Phase Esophageal Clearance: Esophageal retention w/ retrograde flow below pharyngoesophageal seg. Diagnosis/Impression Diagnosis: Mild oropharyngeal dysphagia R13.12, Esophageal dysphagia R13.14 MBS Impressions: The oral phase is marked by... -Decreased bolus control w/ premature posterior loss of certain trials to the pharynx prior to swallow onset. -Delayed tongue motion for A-P transport. -Piecemeal deglutition of some liquid trials and cookie trial. Multiple swallows mostly cleared oral residues. The pharyngeal phase is marked by... -Delayed swallow onset. -Decreased pharyngeal motility due to decreased tongue base retraction and pharyngeal stripping wave w/ trace to mild pharyngeal residues. Pt utilized double swallows to mostly clear pharyngeal residues as needed. -Decreased airway closure during the swallow due to mildly decreased anterior hyoid excursion and laryngeal elevation w/ trace laryngeal penetration w/o complete ejection 1X w/ sequential sips of thin liquids; however, reflexive cough fully cleared penetrated contrast from the laryngeal vestibule. The esophageal phase is marked by... -Retention of pudding in the middle and lower esophagus w/ retrograde flow to the upper esophagus. Thin liquid wash somewhat cleared retention of barium p udding through the LES; however, continued retention of barium in the middle and lower esophagus w/ retrograde flow after the trial. -Mild retention of cookie in the lower esophagus. Liquid wash cleared remaining cookie residue. Mild retention of liquids in the middle esophagus w/ retrograde flow, which mostly emptied through the LES by the end of the esophageal screen. Recommendations Diet: Easy to Chew Textures (Patient stated preference for softer foods) and Thin Liquids Compensatory Strategies: Small Bites, Small Sips, Slow Rate (Sips 1 at a time), Multiple Swallows (Pt independently completes as needed), Alternate bites/solids and sips/liquids (Take a sip after every 1-2 bites), Sitting upright and Remain sitting upright for 30 minutes after PO intake Supervision: 1:1 Direct Supervision Recommend Repeat Modified Barium Swallow: TBD (Hx of PD. If concern for inc reased s/s of aspiration w/ po intake in the future, would recommend repeat MBSS to re-assess swallow function and aspiration risk.) Need for Skilled Speech Therapy Services: Yes Comment: -Train the patient in strategies to decrease risk for aspiration and reflux aspiration. -Ongoing assessment of diet tolerance. -Train the patient in oropharyngeal exercise program (lingual resistance exercise, Beverley, effortful, CTAR). Recommended Referrals: GI Consult (Consider OP GI consult due to esophageal ret ention w/ retrograde flow below the UES. Pt is safe for participation in esophagram if recommended by GI.) Education Completed: 1. Described result of evaluation., 2. Pt understands evaluation & agrees with goals and treatment plan. and 7. Pt requires further education on strategies & risks. Status Active ST Patient: Active Contact Information [facility] Speech Therapy:: Judith Zarco M.A. [facility] [facility] Speech-Language Pathologist [facility] [address] [place] [address] [phone]
[2024-10-23] MEDS: Lactobacillis Acidophilus 1 CAP PO ×3 (09:17→22:28)
[2024-10-23] MEDS: Piperacil/Tazobactam 3.375 GM in 0.9% Normal Saline (50mL MB+) 50 ML IV ×2 (09:25→22:33)
[2024-10-23] MEDS: 0.9% Saline Lock 10 ML Syringe IV ×3 (09:26→22:34)
--- NOTE | 2024-10-23 09:50 | CASEMGMT ---
Discharge Planning Updates sent to [facility]. Leighann Coles DC Planning Asst.
--- NOTE | 2024-10-23 11:00 | PN_ITS ---
Subjective Subjective Patient seen and examined. He had no complaints today. He did have a mild fever this morning of 99.5 Fahrenheit. He is on 2 L of oxygen. Review of systems otherwise negative. Objective Data Objective Data Vital Signs: Vital Signs Temp Pulse Resp BP Pulse Ox O2 Del Method O2 Flow Rate 99.5 F H 91 27 H 127/61 H 96 Nasal Cannula 2 10/23/24 10:00 10/23/24 10:00 10/23/24 10:00 10/23/24 10:00 10/23/24 10:00 10/23/24 10:00 10/23/24 10:00 Oxygen Flow Rate (L/min) 2 Oxygen Delivery Method Nasal Cannula Weight: 168 lb 11.163 oz Body Mass Index (BMI) 24.2 Intake & Output: Intake and Output for Last 24 Hours 10/21/24 10/22/24 10/23/24 23:59 23:59 23:59 Intake Total 228.83 / 228.83 280.62 / 530.62 368.08 / 368.08 Output Total 575 / 725 1230 / 1330 250 / 250 Balance -346.17 / -496.17 -949.38 / -799.38 118.08 / 118.08 Lab / Micro Data 10/23/24 03:20 10/23/24 02:20 Labs: Laboratory Results - last 24 hr 10/20/24 16:38: POC Glucose 223 H 10/22/24 12:30: APTT 84.9 H 10/22/24 12:38: POC Glucose 121 H 10/22/24 16:18: POC Glucose 175 H 10/22/24 19:13: APTT 48.4 H 10/22/24 22:11: POC Glucose 177 H 10/23/24 02:20: Sodium 141, Potassium 3.4, Chloride 105, Carbon Dioxide 20.8 L, Anion Gap 15, BUN 70 H, Creatinine 7.11 H, Estim Creat Clear Calc 9.84 L*, Est GFR (MDRD) Non-Af 8 L, BUN/Creatinine Ratio 9.9 L, Glucose 166 H, Calcium 8.1 10/23/24 03:20: WBC 11.8 H, RBC 2.93 L, Hgb 9.0 L, Hct 26.1 L, MCV 89.1, MCH 30.7, MCHC 34.5, RDW Std Deviation 44.8 H, RDW Coeff of Sara 13.8, Plt Count 339, MPV 11.1, Neut % (Auto) Not Reportable, Absolute Neuts (auto) 7.6, Absolute Lymphs (auto) 2.40, Neutrophils % (Manual) 64, Band Neutrophils % 20 H, Lymphocytes % (Manual) 20, Monocytes % (Manual) 4, Eosinophils % (Manual) 9 H, M etamyelocytes % 2 H, Myelocytes % 1 H, Diff Path Review June, Platelet Estimate ADEQUATE, RBC Morphology NORM C+C, APTT 82.7 H 10/23/24 05:54: POC Glucose 147 H Micro: Microbiology 10/17/24 18:30 Blood Culture (Wb) - Anticubital Right Blood Culture - Final No growth in 5 days. 10/17/24 18:34 Blood Culture (Wb) - Anticubital Left Blood Culture - Final No growth in 5 days. 10/21/24 09:23 Stool Enteric Bacteriology - Final 10/21/24 09:23 Stool Clostridioides difficile (PCR) - Final 10/18/24 11:58 Urine Catheter - Larkin Urine Culture - Final Culture exhibits no growth. 10/19/24 10:15 Urine Catheter - Catheter Legionella Antigen - Final 10/19/24 10:15 Urine Catheter - Catheter Streptococcus pneumoniae Antigen (M - Final 10/19/24 17:55 Mucosa - Nasopharyngeal Respiratory Panel (PCR) - Final 10/19/24 18:11 Mucosa - Nose Coronavirus COVID-19 PCR - Final Physical Exam Const alert, oriented x3, no apparent distress and average body habitus Constitutional Narrative: flat affect General Appearance: cooperative HEENT normocephalic, head/scalp atraumatic, hearing grossly normal bilaterally, moist oral mucous membranes and oropharynx normal Eyes PERRL, EOMs intact bilaterally and conjunctivae normal Neck supple and no JVD Neck Narrative: Trachea midline Lymph Lymphatic: no lymphedema noted Resp Resp Narrative: Mildly diminished breath sounds bibasilar. No wheezes or crackles. On 2L of oxygen by nasal canula Effort and Inspection: tachypneic Auscultation: Negative for rales, rhonchi or wheezes Cardio regular rate, regular rhythm, S1 normal heart sound, S2 normal heart sound and no murmurs Cardio Narrative: Mild tachycardia GI normal to inspection, nondistended, normoactive bowel sounds, soft to palpation, non-tender and non-distended Extremity normal capillary refill, no clubbing, cyanosis or edema and no calf tenderness General Extremity: no tenderness to palpation of joints or extremities Skin Skin Narrative: dialysis catheter in situ General Skin Exam: no breakdown Neuro oriented x3, CN's II-XII intact bilaterally and no focal motor deficits Neuro Narrative: Bradykinesia, speech is clear and normal though he often appears hesitant in speech and movement. Sensorium / Orientation: awake and alert Motor Exam: general weakness Psych thought process normal and cooperative Psych Narrative: flat affect Mood & Affect: flat affect Assessment & Plan Assessment/Plan (1) High anion gap metabolic acidosis: (2) Urethral stricture: (3) Urinary retention: (4) Fall: QUALIFIERS: Encounter type: initial encounter Qualified Code(s): W19.XXXA - Unspecified fall, initial encounter (5) Rhabdomyolysis: QUALIFIERS: Rhabdomyolysis type: non-traumatic Qualified Code(s): M62.82 - Rhabdomyolysis PLAN: Plan #Sepsis due to multilobar pneumonia * now on room air. CT of the chest showed multilobar pneumonia. On IV Zosyn. * Urine for strep and Legionella antigens were negative. Speech therapy on board in light of history of stroke and Parkinson's disease. * Sputum culture is pending. COVID and respiratory panels were negative. #CHRISTY on CKD stage IIIb * Commenced on dialysis yesterday. Creatinine is down to around 7.5 today. Having dialysis again today. * Management as per nephrology. * on bicarb. * #Rhabdomyolysis: * improving with dialysis. Stable. * #Acute anemia: Hemoglobin today is 9.0. Remained stable. Will monitor. #Hematuria due to urethral stricture * Had urinary retention and urology had to be consulted to place a Larkin as he could not be placed in the ED. Having some mild hematuria but is clearing up. Likely traumatic as a result of passing the Larkin. * To leave Larkin in situ on discharge and to follow-up with urology on outpatient basis. * #Type 2 diabetes mellitus: A1c is 8.1. On insulin sliding scale. Accuhecks ACHS. Usually on metformin at home which is currently on hold. #History of DVT: Has IVC filter in situ. on heparin drip. 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 Lives alone currently. Family looking at getting him into assisted living. On aspirin. PT OT on board. #Benign essential hypertension: On metoprolol. Lisinopril held due to CHRISTY on CKD #Hyperlipidemia: On statin #Heart failure with reduced ejection fraction: Not in exacerbation. #Parkinson's disease with recent fall: PT OT on board. On levodopa carbidopa. #DVT prophylaxis: Currently on heparin drip Disposition: will need placement Charges/Coding Visit Charges Inpatient E&M: 08182 Subs Hosp L2
[2024-10-23 12:34] LABS: Partial Thromboplast Time 39.8 Seconds (24.1-36.2)
[2024-10-23] MEDS: 0.9% Normal Saline 1,000 ML IV.SOLN. 1000 ML OPERA.SITE (12:44)
[2024-10-23] MEDS: PureFlow B 4K Dialysis Soln 1 BAG 6 BAG PF (12:44)
[2024-10-23] MEDS: Heparin Injection (Vial) 5,000 UNIT/ML VIAL IV (12:46)
[2024-10-23] MEDS: HEPARIN/D5w 25,000 UNITS 25,000 UNITS/250 ML IV.SOLN. 9.6 UNITS CONT INF (14:55)
[2024-10-23 15:08] LABS: Anti-dsDNA Ab <1 IU/mL (0-9)
[2024-10-23 19:45] LABS: Partial Thromboplast Time 113.7 Seconds (24.1-36.2)
[2024-10-23] MEDS: Senna Tablet 1 TABLET PO (22:32)
[2024-10-24] VITALS (10 sets, daily range): BP systolic 125–140; BP diastolic 68–76; PULSE 82–100; RESP 16–28; TEMP 36.1–36.9; O2SAT 92–99
[2024-10-24 04:38] LABS: Hematocrit 29.2 % (40-54); Hemoglobin 9.8 g/dL (13.0-16.5); Mean Corp Hgb Conc 33.6 g/dL (32-36); Mean Corpuscular Volume 90.4 fL (80-94); Mean Platelet Vol. 10.5 fl (6.2-12.0); POSITIVE COUNT YES; POSITIVE MORPHOLOGY YES; Platelet Count 351 K/mm3 (150-450); RBC Distribution Width CV 13.7 % (11.6-14.6); RBC Distribution Width SD 45.0 fl (35.1-43.9); Red Blood Count 3.23 M/mm3 (4.6-6.2); White Blood Count 12.2 K/mm3 (4.4-11.0)
[2024-10-24 04:41] LABS: Differential Indicated MANUAL DIFF
[2024-10-24 04:55] LABS: Partial Thromboplast Time 54.1 Seconds (24.1-36.2)
[2024-10-24 05:03] LABS: Anion Gap 14 (5-15); BUN 48 mg/dL (4-19); BUN/Creat Ratio 8.5 RATIO (10-20); Calcium,Total 8.6 mg/dL (7.6-11.0); Carbon Dioxide 22.2 mmol/L (21.0-32.0); Chloride 106 mmol/L (98-108); Estimated Creatinine Clearance 12.45 ml/min (50-250); Glucose 171 mg/dL (70-99); Potassium 3.6 mmol/L (3.3-5.1)
[2024-10-24] MEDS: Heparin Injection (Vial) 5,000 UNIT/ML VIAL IV ×2 (05:27→18:45)
[2024-10-24 05:43] LABS: Neutrophil-Segmented 74 % (47-70); Total Cells Counted 100 (MANUAL DIFF)
[2024-10-24 05:47] LABS: Anisocytosis 1+
[2024-10-24] MEDS: Lactobacillis Acidophilus 1 CAP PO ×4 (09:08→22:58)
[2024-10-24] MEDS: Piperacil/Tazobactam 3.375 GM in 0.9% Normal Saline (50mL MB+) 50 ML IV (09:22)
--- NOTE | 2024-10-24 09:25 | RAD_ITS ---
PROCEDURE: CHEST 1 VIEW (PORTABLE) 10/24/2024 REASON FOR EXAM: OXYGEN DECREASE TECHNIQUE: Frontal view of the chest. COMPARISON: Chest x-ray 10/21/2024. FINDINGS: Hardware: Monitoring electrodes overlying chest. Right-sided dialysis catheter with tip in cavoatrial junction. Heart: Cardiac and mediastinal contours are stable. Lungs: Bibasilar atelectasis. Mild bilateral pulmonary vascular congestion. Bones: Degenerative changes of spine. Other: Partially visualized contrast within bowel. RAD/Chest 1 View (Portable) IMPRESSION: Mild bilateral pulmonary vascular congestion. Reading Location: [id number]
--- NOTE | 2024-10-24 09:58 | PN.RENAL_ITS ---
Subjective Subjective Sitting in chair, no complaints today. States tolerated his dialysis session yesterday. Objective Data Objective Data Vital Signs: Vital Signs Temp Pulse Resp BP Pulse Ox O2 Del Method O2 Flow Rate 97.8 F 87 28 H 134/68 H 93 Room Air 5 10/24/24 09:04 10/24/24 09:04 10/24/24 09:04 10/24/24 09:04 10/24/24 09:04 10/24/24 09:05 10/24/24 09:04 Oxygen Flow Rate (L/min) 5 Oxygen Delivery Method Room Air Weight: 75.4 kg Body Mass Index (BMI) 23.8 Intake & Output: Intake and Output for Last 24 Hours 10/22/24 10/23/24 10/24/24 23:59 23:59 23:59 Intake Total 280.62 / 530.62 796.57 / 796.57 196.31 / 196.31 Output Total 1230 / 1330 1780 / 1780 450 / 450 Balance -949.38 / -799.38 -983.43 / -983.43 -253.69 / -253.69 Lab / Micro Data 10/24/24 04:29 10/24/24 04:29 Labs: Laboratory Results - last 24 hr 10/22/24 08:15: Double Strand DNA Ab <1 10/23/24 11:53: POC Glucose 181 H 10/23/24 12:08: APTT 39.8 H 10/23/24 17:01: POC Glucose 145 H 10/23/24 19:10: APTT 113.7 H* 10/23/24 22:40: POC Glucose 196 H 10/24/24 04:29: WBC 12.2 H, RBC 3.23 L, Hgb 9.8 L, Hct 29.2 L, MCV 90.4, MCH 30.3, MCHC 33.6, RDW Std Deviation 45.0 H, RDW Coeff of Sara 13.7, Plt Count 351, MPV 10.5, Neut % (Auto) Not Reportable, Absolute Neuts (auto) 9.0 H, Absolute Lymphs (auto) 1.46, Total Counted 100, Neutrophils % (Manual) 74 H, Lymphocytes % (Manual) 12 L, Monocytes % (Manual) 4, Eosinophils % (Manual) 6 H, M etamyelocytes % 3 H, Myelocytes % 1 H, Platelet Estimate ADEQUATE, Anisocytosis 1+, Ovalocytes 1+, APTT 54.1 H, Sodium 141, Potassium 3.6, Chloride 106, Carbon Dioxide 22.2, Anion Gap 14, BUN 48 H, Creatinine 5.62 H, Estim Creat Clear Calc 12.45 L, Est GFR (MDRD) Non-Af 10 L, BUN/Creatinine Ratio 8.5 L, Glucose 171 H, Calcium 8.6 10/24/24 06:27: POC Glucose 141 H Micro: Microbiology 10/17/24 18:30 Blood Culture (Wb) - Anticubital Right Blood Culture - Final No growth in 5 days. 10/17/24 18:34 Blood Culture (Wb) - Anticubital Left Blood Culture - Final No growth in 5 days. 10/21/24 09:23 Stool Enteric Bacteriology - Final 10/21/24 09:23 Stool Clostridioides difficile (PCR) - Final 10/18/24 11:58 Urine Catheter - Taylor Urine Culture - Final Culture exhibits no growth. 10/19/24 10:15 Urine Catheter - Catheter Legionella Antigen - Final 10/19/24 10:15 Urine Catheter - Catheter Streptococcus pneumoniae Antigen (M - Final 10/19/24 17:55 Mucosa - Nasopharyngeal Respiratory Panel (PCR) - Final 10/19/24 18:11 Mucosa - Nose Coronavirus COVID-19 PCR - Final Radiography Diagnostic Testing: Radiology Impression Chest X-Ray 10/24/24 09:25 IMPRESSION: Mild bilateral pulmonary vascular congestion. Reading Location: [id number] Physical Exam Narrative Alert and oriented no obvious distress s1s2 no murmurs lungs clear abdomen soft no pitting edema taylor + temporary non-tunneled dialysis catheter right IJ Assessment & Plan Assessment/Plan (1) CHRISTY (acute kidney injury): PLAN: - CHRISTY on possible CKD (SCr 1.11 July 2023). He was initially admitted to the hospital with a fall and rhabdomyolysis. Admission creatinine was 2.4, CPK level was 18,000. CPK levels have trended down however he had progressive renal failure. Serum creatinine peaked at 9.55 on 10/22. Nonoliguric. At this point we will consider alternative etiologies for acute renal failure. Serologies ordered and are pending. Initiated on dialysis 10/22/2024, dialyzed again 10/23 with 1 L fluid removal. No acute indication for renal placement therapy today. There has been no noted renal recovery therefore patient will need tunneled hemodialysis catheter placed and outpatient hemodialysis arrangements to [facility] Dx: CHRISTY. Will plan for dialysis tomorrow with fluid removal. Reviewed chest x- ray today showing mild pulmonary congestion. History of DVT on heparin drip. Assessment and plan reviewed with Dr. Chavez.
[2024-10-24 11:21] LABS: Partial Thromboplast Time 55.2 Seconds (24.1-36.2)
--- NOTE | 2024-10-24 11:39 | CASEMGMT ---
Social Work SW spoke with the sister Renate regarding scheduling dialysis after discharge. LAMONT informed her dialysis clinics in the area are [facility] and [facility]. The sister chose [facility]. JOSELINE Silva
--- NOTE | 2024-10-24 11:55 | CASEMGMT ---
Social Work SW faxed the referral to [facility]. JOSELINE Silva
--- NOTE | 2024-10-24 11:57 | PN_ITS ---
Subjective Subjective Patient seen and examined. He had no active complaints. Review of systems otherwise negative. Objective Data Objective Data Vital Signs: Vital Signs Temp Pulse Resp BP Pulse Ox O2 Del Method O2 Flow Rate 97.8 F 87 28 H 134/68 H 93 Room Air 5 10/24/24 09:04 10/24/24 09:04 10/24/24 09:04 10/24/24 09:04 10/24/24 09:04 10/24/24 09:05 10/24/24 09:04 Oxygen Flow Rate (L/min) 5 Oxygen Delivery Method Room Air Weight: 166 lb 3.657 oz Body Mass Index (BMI) 23.8 Intake & Output: Intake and Output for Last 24 Hours 10/22/24 10/23/24 10/24/24 23:59 23:59 23:59 Intake Total 280.62 / 530.62 796.57 / 796.57 196.31 / 196.31 Output Total 1230 / 1330 1780 / 1780 450 / 450 Balance -949.38 / -799.38 -983.43 / -983.43 -253.69 / -253.69 Lab / Micro Data 10/24/24 04:29 10/24/24 04:29 Labs: Laboratory Results - last 24 hr 10/22/24 08:15: Double Strand DNA Ab <1 10/23/24 11:53: POC Glucose 181 H 10/23/24 12:08: APTT 39.8 H 10/23/24 17:01: POC Glucose 145 H 10/23/24 19:10: APTT 113.7 H* 10/23/24 22:40: POC Glucose 196 H 10/24/24 04:29: WBC 12.2 H, RBC 3.23 L, Hgb 9.8 L, Hct 29.2 L, MCV 90.4, MCH 30.3, MCHC 33.6, RDW Std Deviation 45.0 H, RDW Coeff of Sara 13.7, Plt Count 351, MPV 10.5, Neut % (Auto) Not Reportable, Absolute Neuts (auto) 9.0 H, Absolute Lymphs (auto) 1.46, Total Counted 100, Neutrophils % (Manual) 74 H, Lymphocytes % (Manual) 12 L, Monocytes % (Manual) 4, Eosinophils % (Manual) 6 H, M etamyelocytes % 3 H, Myelocytes % 1 H, Platelet Estimate ADEQUATE, Anisocytosis 1+, Ovalocytes 1+, APTT 54.1 H, Sodium 141, Potassium 3.6, Chloride 106, Carbon Dioxide 22.2, Anion Gap 14, BUN 48 H, Creatinine 5.62 H, Estim Creat Clear Calc 12.45 L, Est GFR (MDRD) Non-Af 10 L, BUN/Creatinine Ratio 8.5 L, Glucose 171 H, Calcium 8.6 10/24/24 06:27: POC Glucose 141 H 10/24/24 11:03: APTT 55.2 H Micro: Microbiology 10/17/24 18:30 Blood Culture (Wb) - Anticubital Right Blood Culture - Final No growth in 5 days. 10/17/24 18:34 Blood Culture (Wb) - Anticubital Left Blood Culture - Final No growth in 5 days. 10/21/24 09:23 Stool Enteric Bacteriology - Final 10/21/24 09:23 Stool Clostridioides difficile (PCR) - Final 10/18/24 11:58 Urine Catheter - Larkin Urine Culture - Final Culture exhibits no growth. 10/19/24 10:15 Urine Catheter - Catheter Legionella Antigen - Final 10/19/24 10:15 Urine Catheter - Catheter Streptococcus pneumoniae Antigen (M - Final 10/19/24 17:55 Mucosa - Nasopharyngeal Respiratory Panel (PCR) - Final 10/19/24 18:11 Mucosa - Nose Coronavirus COVID-19 PCR - Final Radiography Diagnostic Testing: Radiology Impression Chest X-Ray 10/24/24 09:25 IMPRESSION: Mild bilateral pulmonary vascular congestion. Reading Location: [facility] Physical Exam Const alert, no apparent distress and average body habitus Constitutional Narrative: flat affect, episodic confusion General Appearance: cooperative HEENT normocephalic, head/scalp atraumatic, hearing grossly normal bilaterally, moist oral mucous membranes and oropharynx normal Eyes EOMs intact bilaterally and conjunctivae normal Eyes Narrative: No scleral icterus Neck supple and no JVD Neck Narrative: Trachea midline Lymph Lymphatic: no lymphedema noted Resp Resp Narrative: Mildly diminished breath sounds bibasilar. No wheezes or crackles. Was on 2L of oxygen by nasal canula this morning but subsequently went up to 6 L. Tachypneic and breathing at 28/min Effort and Inspection: tachypneic Cardio regular rate, regular rhythm, S1 normal heart sound, S2 normal heart sound and no murmurs GI normal to inspection, nondistended, normoactive bowel sounds, soft to palpation, non-tender and non-distended Extremity normal capillary refill, no clubbing, cyanosis or edema and no calf tenderness General Extremity: no tenderness to palpation of joints or extremities Skin Skin Narrative: dialysis catheter in situ General Skin Exam: no breakdown Neuro oriented x3 and moves all extremities Neuro Narrative: Bradykinesia, speech is clear and normal though he often appears hesitant in speech and movement. Sensorium / Orientation: awake and alert Speech: speech normal Motor Exam: general weakness Psych Psych Narrative: flat affect Mood & Affect: flat affect Assessment & Plan Assessment/Plan (1) High anion gap metabolic acidosis: (2) Urethral stricture: (3) Urinary retention: (4) Fall: QUALIFIERS: Encounter type: initial encounter Qualified Code(s): W19.XXXA - Unspecified fall, initial encounter (5) Rhabdomyolysis: QUALIFIERS: Rhabdomyolysis type: non-traumatic Qualified Code(s): M62.82 - Rhabdomyolysis PLAN: Plan #Acute hypoxic respiratory failure due to multilobar pneumonia and fluid overload * was on 2L today but had to go up to 6L. Chest x-ray done showed vascular congestion. * CT of the chest showed multilobar pneumonia on admission. On IV Zosyn. * Urine for strep and Legionella antigens were negative. Speech therapy on board in light of history of stroke and Parkinson's disease. * COVID and respiratory panels were negative. * should improve with dialysis #CHRISTY on CKD stage IIIb * Commenced on dialysis. Has had 2 sessions of dialysis so far * Management as per nephrology. * on bicarb. * .Nephrology patient need continued dialysis so general surgery contacted for insertion of permanent dialysis catheter. Will hold heparin * #Rhabdomyolysis: * resolved. * #Acute anemia: Hemoglobin today is 9.8. Remained stable. Will monitor. #Hematuria due to urethral stricture * Had urinary retention and urology had to be consulted to place a Larkin as he could not be placed in the ED. Having some mild hematuria but is clearing up. Likely traumatic as a result of passing the Larkin. * To leave Larkin in situ on discharge and to follow-up with urology on outpatient basis. * #Type 2 diabetes mellitus: A1c is 8.1. On insulin sliding scale. Accuhecks ACHS. Usually on metformin at home which is currently on hold. #History of DVT: Has IVC filter in situ. on heparin drip. 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 Lives alone currently. Family looking at getting him into assisted living. On aspirin. PT OT on board. #Benign essential hypertension: On metoprolol. Lisinopril held due to CHRISTY on CKD #Hyperlipidemia: On statin #Heart failure with reduced ejection fraction: Not in exacerbation but is fluid overloaded due to CHRISTY. Dialysis helping with fluid removal #Parkinson's disease with recent fall: PT OT on board. On levodopa carbidopa. #DVT prophylaxis: Currently on heparin drip Disposition: will need placement Charges/Coding Visit Charges Inpatient E&M: 28763 Subs Hosp L2
--- NOTE | 2024-10-24 12:34 | CASEMGMT ---
Addendum entered by Hill Perez 10/24/24 16:21: Pt is scheduled for tunneled cath placement tomorrow. Care Management to follow. Addendum entered by Hill Perez 10/24/24 16:20: [facility] responds through the portal stating that the pt has been accepted at [facility] in [place] with a 1210 chair time MWF. See SW note as the SNF has been notified. Original Note: Nephrology ELECT[employer]IC CE[employer] TENDER states to this RN CM that the pt will require OP HD moving forward for CHRISTY. Nephro places an order for tunneled cath placement. See previous SW note as the pt's sister prefers [facility] in [place] and has already been in contact with [facility] retail marketing coordinator, Izabela. Izabela states to LAMONT that they can accept the pt for MWF treatments with chair time TBD. At this time, anticipated start date at [facility] is Monday, 10/28. Official referral sent to [facility] via the portal at this time. CECILE and SW to follow.
--- NOTE | 2024-10-24 14:25 | CASEMGMT ---
Social Work SW informed ELIGIO that the patient has been accepted at [facility] with the chair time of 1210pm MWF and he needs to be there at 1150am. JOSELINE Silva
--- NOTE | 2024-10-24 15:29 | PCM.PN.SRG ---
Subjective Subjective Patient will need tunneled dialysis catheter currently has a temporary in the right IJ Objective Data Objective Data Vital Signs: Vital Signs Temp Pulse Resp BP Pulse Ox O2 Del Method O2 Flow Rate 97.8 F 87 28 H 134/68 H 99 Room Air 2 10/24/24 09:04 10/24/24 09:04 10/24/24 09:04 10/24/24 09:04 10/24/24 12:49 10/24/24 14:00 10/24/24 12:49 Oxygen Flow Rate (L/min) 2 Oxygen Delivery Method Room Air Weight: 166 lb 3.657 oz Body Mass Index (BMI) 23.8 Intake & Output: Intake and Output for Last 24 Hours 10/22/24 10/23/24 10/24/24 23:59 23:59 23:59 Intake Total 280.62 / 530.62 796.57 / 796.57 239.64 / 239.64 Output Total 1230 / 1330 1780 / 1780 650 / 650 Balance -949.38 / -799.38 -983.43 / -983.43 -410.36 / -410.36 Lab / Micro Data 10/24/24 04:29 10/24/24 04:29 Labs: Laboratory Results - last 24 hr 10/23/24 17:01: POC Glucose 145 H 10/23/24 19:10: APTT 113.7 H* 10/23/24 22:40: POC Glucose 196 H 10/24/24 04:29: WBC 12.2 H, RBC 3.23 L, Hgb 9.8 L, Hct 29.2 L, MCV 90.4, MCH 30.3, MCHC 33.6, RDW Std Deviation 45.0 H, RDW Coeff of Sara 13.7, Plt Count 351, MPV 10.5, Neut % (Auto) Not Reportable, Absolute Neuts (auto) 9.0 H, Absolute Lymphs (auto) 1.46, Total Counted 100, Neutrophils % (Manual) 74 H, Lymphocytes % (Manual) 12 L, Monocytes % (Manual) 4, Eosinophils % (Manual) 6 H, Metamyelocytes % 3 H, Myelocytes % 1 H, Platelet Estimate ADEQUATE, Anisocytosis 1+, Ovalocytes 1+, APTT 54.1 H, Sodium 141, Potassium 3.6, Chloride 106, Carbon Dioxide 22.2, Anion Gap 14, BUN 48 H, Creatinine 5.62 H, Estim Creat Clear Calc 12.45 L, Est GFR (MDRD) Non-Af 10 L, BUN/Creatinine Ratio 8.5 L, Glucose 171 H, Calcium 8.6 10/24/24 06:27: POC Glucose 141 H 10/24/24 11:03: APTT 55.2 H 10/24/24 12:16: POC Glucose 213 H Micro: Microbiology 10/17/24 18:30 Blood Culture (Wb) - Anticubital Right Blood Culture - Final No growth in 5 days. 10/17/24 18:34 Blood Culture (Wb) - Anticubital Left Blood Culture - Final No growth in 5 days. 10/21/24 09:23 Stool Enteric Bacteriology - Final 10/21/24 09:23 Stool Clostridioides difficile (PCR) - Final 10/18/24 11:58 Urine Catheter - Larkin Urine Culture - Final Culture exhibits no growth. 10/19/24 10:15 Urine Catheter - Catheter Legionella Antigen - Final 10/19/24 10:15 Urine Catheter - Catheter Streptococcus pneumoniae Antigen (M - Final 10/19/24 17:55 Mucosa - Nasopharyngeal Respiratory Panel (PCR) - Final 10/19/24 18:11 Mucosa - Nose Coronavirus COVID-19 PCR - Final Radiography Diagnostic Testing: Radiology Impression Renal Ultrasound 10/22/24 12:16 IMPRESSION: NORMAL RENAL ULTRASOUND. Reading Location: [facility] Chest X-Ray 10/24/24 09:25 IMPRESSION: Mild bilateral pulmonary vascular congestion. Reading Location: [id number] Physical Exam Narrative Patient was currently sleeping in chair would only shake his head to questions. Temporary dialysis catheter in the right IJ in place. Const no apparent distress Resp normal respiratory effort GI soft to palpation and non-tender Assessment & Plan Assessment/Plan (1) CHRISTY (acute kidney injury): (2) History of DVT (deep vein thrombosis): (3) Chronic anticoagulation: PLAN: Plan Will plan to place at tunnel dialysis catheter right possible left tomorrow in the OR about noon. Did talk to the patient who did shake his head they had no further questions and also talk to his sister Renate who is his POA as well. Plan to stop the heparin drip tonight, night the dialysis nurse will plan to pull the catheter at 7 AM tomorrow morning. Plan to go to the OR about noon for a tunneled dialysis catheter. N.p.o. after midnight Cece Dennis M.D. Pager: [phone] [facility] [address] [place] [address], [address] [place] [address] Office: [phone]
[2024-10-24 17:53] LABS: Partial Thromboplast Time 44.9 Seconds (24.1-36.2)
[2024-10-24] MEDS: 0.9% Saline Lock 10 ML Syringe IV (22:58)
[2024-10-24] MEDS: Senna Tablet 1 TABLET PO (22:58)
--- NOTE | 2024-10-24 23:17 | PCM.HOSP.N ---
Hospitalist Note Stopped heparin drip per surgery's note to prep for dialysis nurse to pull temporary HD cath tomorrow at 0700, and tunneled cath placement tomorrow around noon.
[2024-10-25 03:00] VITALS: PULSE 92
[2024-10-25 04:05] VITALS: BMI 27.9
[2024-10-25 05:04] LABS: Hematocrit 28.0 % (40-54); Hemoglobin 9.3 g/dL (13.0-16.5); Mean Corp Hgb Conc 33.2 g/dL (32-36); Mean Corpuscular Volume 91.2 fL (80-94); Mean Platelet Vol. 10.5 fl (6.2-12.0); POSITIVE COUNT YES; POSITIVE MORPHOLOGY YES; Platelet Count 364 K/mm3 (150-450); RBC Distribution Width CV 13.8 % (11.6-14.6); RBC Distribution Width SD 45.8 fl (35.1-43.9); Red Blood Count 3.07 M/mm3 (4.6-6.2); White Blood Count 14.7 K/mm3 (4.4-11.0)
[2024-10-25 05:11] LABS: Differential Indicated MANUAL DIFF
[2024-10-25 05:20] LABS: Partial Thromboplast Time 28.9 Seconds (24.1-36.2)
[2024-10-25 05:27] VITALS: BP 132/74; PULSE 88; RESP 19; TEMP 37; O2SAT 91
[2024-10-25 05:43] LABS: Anion Gap 14 (5-15); BUN 55 mg/dL (4-19); BUN/Creat Ratio 8.4 RATIO (10-20); Calcium,Total 8.5 mg/dL (7.6-11.0); Carbon Dioxide 21.5 mmol/L (21.0-32.0); Chloride 107 mmol/L (98-108); Estimated Creatinine Clearance 11.62 ml/min (50-250); Glucose 164 mg/dL (70-99); Potassium 3.4 mmol/L (3.3-5.1)
[2024-10-25 07:23] LABS: Neutrophil-Segmented 80 % (47-70); Total Cells Counted 100 (MANUAL DIFF); Toxic Granulation 1+
[2024-10-25 07:24] LABS: Red Cell Morphology NORM C+C NORMAL (NORM C&C)
--- NOTE | 2024-10-25 08:09 | NURSING ---
Dialysis Coordinator discussed case w/ nephrology & surgeon, Dr. Dennis. Tunneled dialysis catheter to be placed this afternoon. DC received order to remove RIJ temp line. RIJ temporary catheter removed per P&P. Pressure held with sterile gauze until hemostasis achieved. No blood loss from site noted. Catheter inspected upon removal & verified to be intact. Surgeon notified that temporary catheter has been removed.
[2024-10-25 09:15] VITALS: O2SAT 96
--- NOTE | 2024-10-25 09:26 | PN_ITS ---
Progress Note Patient with blood count up to 14.7-unsure of source will plan to get a UA, chest x-ray, blood cultures. However temporary line has been removed at 7 AM. Patient's creatinine is currently 6.53 from 5.63 plan to have dialysis today. Tunneled line scheduled at 1130 to noon. Patient could be at a higher risk for potential infection with a permanent catheter versus replacing the temporary catheter and needing an additional tunnel in the future. Will plan to discuss with nephrology, hospitalist, patient/family. Discussed with dialysis they wo uld be able to do dialysis only tomorrow morning until noon. Will plan to cancel the tunneled line placement today discussed with Dr. Lake. Discussed with Toshia WATER SERVER from nephrology thinks that he should be okay until Monday. She is aware that we do not have the abilities of doing dialysis on Monday at all and it is Monday would need to be prescheduled starting at 9 AM and ending at about noon. Will also plan to talk with patient's sister did try to call but got voicemail. Will discuss with Dr. Hand as he will be rounding over the weekend. Toshia also plans to also discussed with Dr. Monreal who will be rounding for nephrology over the weekend Cece Dennis M.D. Pager: [phone] [facility] [address] [place] [address], [address] [place] [address] Office: [phone]
--- NOTE | 2024-10-25 09:31 | CASEMGMT ---
During rounds, Dr Lake states that the pt's tunneled catheter is now not able to be placed until Monday due to the pt's WBC. ROBERT notified and plans to notify [facility]. Cyrus notified via the portal at this time with SOC now projected for next Monday at the [facility]. Care Management to follow.
--- NOTE | 2024-10-25 10:11 | PN_ITS ---
Subjective Subjective Patient seen and examined this morning. He was on room air and had no complaints. He denied any pain, any fever or chills, cough, shortness of breath, nausea or vomiting or any other symptoms. WBC is up to 14.7 this morning. His heparin drip was held last night at 10 PM and he had the dialysis catheter pulled today. Now however general surgery saying that due to the rising WBC to 14.7 from around 12 yesterday, they may not be able to do the permanent dialysis catheter. Patient has no clear foci of infection. He did have a chest x-ray done yesterday due to shortness of breath and it was only showed mild pulmonary vascular congestion. As stated he is on room air today. Review of systems otherwise negative. Objective Data Objective Data Vital Signs: Vital Signs Temp Pulse Resp BP Pulse Ox O2 Del Method O2 Flow Rate 98.6 F 88 19 H 132/74 H 91 Room Air 2 10/25/24 05:27 10/25/24 05:27 10/25/24 05:27 10/25/24 05:27 10/25/24 05:27 10/25/24 08:44 10/24/24 12:49 Oxygen Flow Rate (L/min) 2 Oxygen Delivery Method Room Air Weight: 194 lb 14.218 oz Body Mass Index (BMI) 27.9 Intake & Output: Intake and Output for Last 24 Hours 10/23/24 10/24/24 10/25/24 23:59 23:59 23:59 Intake Total 796.57 / 796.57 371.50 / 371.50 0 / 0 Output Total 1780 / 1780 1000 / 1000 200 / 200 Balance -983.43 / -983.43 -628.50 / -628.50 -200 / -200 Lab / Micro Data 10/25/24 04:47 10/25/24 04:47 Labs: Laboratory Results - last 24 hr 10/24/24 11:03: APTT 55.2 H 10/24/24 12:16: POC Glucose 213 H 10/24/24 16:44: POC Glucose 201 H 10/24/24 17:00: APTT 44.9 H 10/24/24 22:56: POC Glucose 163 H 10/25/24 04:47: WBC 14.7 H, RBC 3.07 L, Hgb 9.3 L, Hct 28.0 L, MCV 91.2, MCH 30.3, MCHC 33.2, RDW Std Deviation 45.8 H, RDW Coeff of Sara 13.8, Plt Count 364, MPV 10.5, Neut % (Auto) Not Reportable, Absolute Neuts (auto) 11.8 H, Absolute Lymphs (auto) 2.06, Total Counted 100, Neutrophils % (Manual) 80 H, Lymphocytes % (Manual) 14 L, Monocytes % (Manual) 2, Eosinophils % (Manual) 3, Myelocytes % 1 H, Toxic Granulation 1+, Platelet Estimate ADEQUATE, RBC Morphology NORM C+C, APTT 28.9, Sodium 142, Potassium 3.4, Chloride 107, Carbon Dioxide 21.5, Anion Gap 14, BUN 55 H, Creatinine 6.53 H, Estim Creat Clear Calc 11.62 L, Est GFR (MDRD) Non-Af 8 L, BUN/Creatinine Ratio 8.4 L, Glucose 164 H, Calcium 8.5 10/25/24 06:41: POC Glucose 142 H Micro: Microbiology 10/17/24 18:30 Blood Culture (Wb) - Anticubital Right Blood Culture - Final No growth in 5 days. 10/17/24 18:34 Blood Culture (Wb) - Anticubital Left Blood Culture - Final No growth in 5 days. 10/21/24 09:23 Stool Enteric Bacteriology - Final 10/21/24 09:23 Stool Clostridioides difficile (PCR) - Final 10/18/24 11:58 Urine Catheter - Larkin Urine Culture - Final Culture exhibits no growth. 10/19/24 10:15 Urine Catheter - Catheter Legionella Antigen - Final 10/19/24 10:15 Urine Catheter - Catheter Streptococcus pneumoniae Antigen (M - Final 10/19/24 17:55 Mucosa - Nasopharyngeal Respiratory Panel (PCR) - Final 10/19/24 18:11 Mucosa - Nose Coronavirus COVID-19 PCR - Final Radiography Diagnostic Testing: Radiology Impression Renal Ultrasound 10/22/24 12:16 IMPRESSION: NORMAL RENAL ULTRASOUND. Reading Location: [facility] Physical Exam Const alert, oriented x3 and no apparent distress Constitutional Narrative: flat affect, episodic confusion General Appearance: cooperative HEENT normocephalic, head/scalp atraumatic, hearing grossly normal bilaterally, moist oral mucous membranes and oropharynx normal Eyes PERRL, EOMs intact bilaterally and conjunctivae normal Eyes Narrative: No scleral icterus Neck no lymphadenopathy, supple and no JVD Neck Narrative: Trachea midline Lymph Lymphatic: no lymphedema noted Resp No normal respiratory effort Resp Narrative: Mildly diminished breath sounds bibasilar. No wheezes or crackles. on room air. Effort and Inspection: tachypneic Auscultation: Negative for rales, rhonchi or wheezes Cardio regular rate, regular rhythm, S1 normal heart sound and S2 normal heart sound GI normal to inspection, nondistended, normoactive bowel sounds and soft to palpation Extremity normal capillary refill, no clubbing, cyanosis or edema and no calf tenderness Extremity Narrative: 2+ pedal and radial pulses, trace pitting edema bilateral lower and upper extremities especially in dependent areas, no cyanosis or clubbing General Extremity: no tenderness to palpation of joints or extremities Skin Skin Narrative: dialysis catheter in situ General Skin Exam: no breakdown Neuro oriented x3, CN's II-XII intact bilaterally, moves all extremities and no focal motor deficits Neuro Narrative: Bradykinesia, speech is clear and normal though he often appears hesitant in speech and movement. Sensorium / Orientation: awake, alert, oriented to person, oriented to place and oriented to time Speech: speech normal Motor Exam: general weakness Psych thought process normal, cooperative and affect normal Psych Narrative: flat affect Mood & Affect: flat affect Assessment & Plan Assessment/Plan (1) High anion gap metabolic acidosis: (2) Urethral stricture: (3) Urinary retention: (4) Fall: QUALIFIERS: Encounter type: initial encounter Qualified Code(s): W19.XXXA - Unspecified fall, initial encounter (5) Rhabdomyolysis: QUALIFIERS: Rhabdomyolysis type: non-traumatic Qualified Code(s): M62.82 - Rhabdomyolysis PLAN: Plan #Acute hypoxic respiratory failure due to multilobar pneumonia and fluid overload * was on 2L today but had to go up to 6L. Chest x-ray done showed vascular congestion. * CT of the chest showed multilobar pneumonia on admission.Completed a course of IV zosyn yesterday from 10/19/2024 till 10/24/2024 * Urine for strep and Legionella antigens were negative. Speech therapy on board in light of history of stroke and Parkinson's disease. * COVID and respiratory panels were negative. * should improve with dialysis * wbc is up to 14.7 today from ~ 12 yesterday. Patient asymptomatic. Will get urinalysis and blood cultures as well as procalcitonin. Hold off on commencing antibiotics now. #CHRISTY on CKD stage IIIb * Commenced on dialysis. * Management as per nephrology. * on bicarb. * .Nephrology patient need continued dialysis so general surgery contacted for insertion of permanent dialysis catheter. Will hold heparin * General Surgery not during the dialysis catheter today because of the elevated WBC. Per nephrology patient may be able to hold off her dialysis till Monday. If there is a need for dialysis will call general surgery department temporary dialysis catheter. * #Rhabdomyolysis: * resolved. * #Acute anemia: Hemoglobin today is 9.8. Remained stable. Will monitor. #Hematuria due to urethral stricture * Had urinary retention and urology had to be consulted to place a Larkin as he could not be placed in the ED. Having some mild hematuria but is clearing up. Likely traumatic as a result of passing the Larkin. * To leave Larkin in situ on discharge and to follow-up with urology on outpatient basis. * #Type 2 diabetes mellitus: A1c is 8.1. On insulin sliding scale. Accuhecks ACHS. Usually on metformin at home which is currently on hold. #History of DVT: Has IVC filter in situ. on heparin drip. 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 Lives alone currently. Family looking at getting him into assisted living. On aspirin. PT OT on board. #Benign essential hypertension: On metoprolol. Lisinopril held due to CHRISTY on CKD #Hyperlipidemia: On statin #Heart failure with reduced ejection fraction: Not in exacerbation but is fluid overloaded due to CHRISTY. Dialysis helping with fluid removal #Parkinson's disease with recent fall: PT OT on board. On levodopa carbidopa. #DVT prophylaxis: Currently on heparin drip which was held yesterday; will resume tonight. Disposition: will need placement Charges/Coding Visit Charges Inpatient E&M: 87031 Subs Hosp L2
[2024-10-25 10:14] LABS: Procalcitonin 0.33 ng/mL (<=0.10)
[2024-10-25 10:26] LABS: Mucous, Urine 0 SEEN /hpf (<or=2+)
[2024-10-25 10:30] VITALS: BP 131/71; PULSE 88; RESP 19; TEMP 37; O2SAT 93
[2024-10-25 10:51] LABS: Color, Urine Yellow (Yellow); Glucose, Dipstick Normal (Normal); Ketone-Dipstick Negative (Negative); Leukocyte Esterase-Dipstick 500 /ul (Negative); Nitrite-Dipstick Negative (Negative); Occult Blood-Urine 250 /ul (Negative); Protein-Dipstick 100 mg/dl (Negative); Specific Gravity, Urine 1.010 (1.002-1.030); Urine Bilirubin Dipstick Negative (Negative)
[2024-10-25 11:03] LABS: Red Blood Cells-Urine > 100 SEEN /hpf (0-5); Squamous Epithelial Cells - UA 0-5 SEEN /hpf (0-5)
--- NOTE | 2024-10-25 11:03 | RAD_ITS ---
PROCEDURE: CHEST 1 VIEW (PORTABLE) 10/25/2024 REASON FOR EXAM: SOB TECHNIQUE: Frontal view of the chest. COMPARISON: Prior study dated October 24, 2024. FINDINGS: Hardware: EKG electrodes are seen. Heart: Heart size is mildly enlarged. Lungs: Mild bibasilar atelectasis. Bones: Degenerative changes are identified within the thoracic spine. Other: Contrast is seen within the splenic flexure. RAD/Chest 1 View (Portable) IMPRESSION: Mild degree of bibasilar atelectasis. Reading Location: [place] [address]
[2024-10-25] MEDS: Lactobacillis Acidophilus 1 CAP PO ×4 (11:18→21:58)
--- NOTE | 2024-10-25 13:02 | CASEMGMT ---
Social Work LAMONT called the sister Renate. LAMONT informed the sister that the patient is scheduled for dialysis treatments at [facility] after discharge and [facility] has been notified. LAMONT informed her the plan is still for the patient to discharge to [facility] when he discharges. LAMONT informed her that the patient is getting the permanent cath tunnel Monday and he will be here through the weekend. JOSELINE Silva
--- NOTE | 2024-10-25 14:07 | CASEMGMT ---
Discharge Planning [facility] notifed that tunnel cath will not be placed until Monday and that updates will be sent then. Leighann Coles DC Planning Asst.
[2024-10-25 14:47] VITALS: BP 135/71; PULSE 104; RESP 22; TEMP 36.4; O2SAT 94
--- NOTE | 2024-10-25 15:49 | PCM.PN.REN ---
Subjective Subjective Sitting in chair. No complaints. No overnight events. Objective Data Objective Data Vital Signs: Vital Signs Temp Pulse Resp BP Pulse Ox O2 Del Method O2 Flow Rate 97.6 F L 104 H 22 H 135/71 H 94 Room Air 2 10/25/24 14:47 10/25/24 14:47 10/25/24 14:47 10/25/24 14:47 10/25/24 14:47 10/25/24 14:47 10/24/24 12:49 Oxygen Flow Rate (L/min) 2 Oxygen Delivery Method Room Air Weight: 88.4 kg Body Mass Index (BMI) 27.9 Intake & Output: Intake and Output for Last 24 Hours 10/23/24 10/24/24 10/25/24 23:59 23:59 23:59 Intake Total 796.57 / 796.57 371.50 / 371.50 0 / 0 Output Total 1780 / 1780 1000 / 1000 500 / 500 Balance -983.43 / -983.43 -628.50 / -628.50 -500 / -500 Lab / Micro Data 10/25/24 04:47 10/25/24 04:47 Labs: Laboratory Results - last 24 hr 10/24/24 16:44: POC Glucose 201 H 10/24/24 17:00: APTT 44.9 H 10/24/24 22:56: POC Glucose 163 H 10/25/24 04:47: WBC 14.7 H, RBC 3.07 L, Hgb 9.3 L, Hct 28.0 L, MCV 91.2, MCH 30.3, MCHC 33.2, RDW Std Deviation 45.8 H, RDW Coeff of Sara 13.8, Plt Count 364, MPV 10.5, Neut % (Auto) Not Reportable, Absolute Neuts (auto) 11.8 H, Absolute Lymphs (auto) 2.06, Total Counted 100, Neutrophils % (Manual) 80 H, Lymphocytes % (Manual) 14 L, Monocytes % (Manual) 2, Eosinophils % (Manual) 3, Myelocytes % 1 H, Toxic Granulation 1+, Platelet Estimate ADEQUATE, RBC Morphology NORM C+C, APTT 28.9, Sodium 142, Potassium 3.4, Chloride 107, Carbon Dioxide 21.5, Anion Gap 14, BUN 55 H, Creatinine 6.53 H, Estim Creat Clear Calc 11.62 L, Est GFR (MDRD) Non-Af 8 L, BUN/Creatinine Ratio 8.4 L, Glucose 164 H, Calcium 8.5, Procalcitonin 0.33 H 10/25/24 06:41: POC Glucose 142 H 10/25/24 10:15: Urine Color Yellow, Urine Clarity Clear, Urine pH 6.0, Ur Specific [place] 1.010, Urine Protein 100 H, Urine Glucose (UA) Normal, Urine Ketones Negative, Urine Occult Blood 250 H, Urine Nitrite Negative, Urine Bilirubin Negative, Urine Urobilinogen Normal, Ur Leukocyte Esterase 500 H, Urine RBC > 100 SEEN, Urine WBC 10-25 SEEN, Ur Squamous Epith Cells 0-5 SEEN, Urine Bacteria 0 SEEN, Urine Mucus 0 SEEN 10/25/24 11:17: POC Glucose 183 H Micro: Microbiology 10/17/24 18:30 Blood Culture (Wb) - Anticubital Right Blood Culture - Final No growth in 5 days. 10/17/24 18:34 Blood Culture (Wb) - Anticubital Left Blood Culture - Final No growth in 5 days. 10/21/24 09:23 Stool Enteric Bacteriology - Final 10/21/24 09:23 Stool Clostridioides difficile (PCR) - Final 10/18/24 11:58 Urine Catheter - Taylor Urine Culture - Final Culture exhibits no growth. 10/19/24 10:15 Urine Catheter - Catheter Legionella Antigen - Final 10/19/24 10:15 Urine Catheter - Catheter Streptococcus pneumoniae Antigen (M - Final 10/19/24 17:55 Mucosa - Nasopharyngeal Respiratory Panel (PCR) - Final 10/19/24 18:11 Mucosa - Nose Coronavirus COVID-19 PCR - Final Radiography Diagnostic Testing: Radiology Impression Chest X-Ray 10/25/24 11:03 IMPRESSION: Mild degree of bibasilar atelectasis. [facility] Physical Exam Narrative Alert and oriented no obvious distress s1s2 no murmurs lungs clear abdomen soft no pitting edema taylor + Assessment & Plan Assessment/Plan (1) CHRISTY (acute kidney injury): PLAN: - CHRISTY on possible CKD (SCr 1.11 July 2023). He was initially admitted to the hospital with a fall and rhabdomyolysis. Admission creatinine was 2.4, CPK level was 18,000. CPK levels have trended down however he had progressive renal failure. Serum creatinine peaked at 9.55 on 10/22. Nonoliguric. At this point we will consider alternative etiologies for acute renal failure. Serologies ordered and are pending. Initiated on dialysis 10/22/2024, dialyzed again 10/23 with 1 L fluid removal. Temporary hemodialysis line was removed as plan was for patient to have tunneled hemodialysis catheter placed. White count trended up to 14.7 today. Surgery has been consulted for tunneled hemodialysis catheter but prefers to hold off placing tunneled line due to elevated white count. No acute indication for renal placement therapy today, serum creatinine 6.53, today potassium and bicarb normal. Patient is making urine and he is on room air. No significant hypervolemia. Urine output yesterday around 1 L. Recommend for patient to be on renal diet with low potassium restrictions, will check labs over the weekend. Outpatient hemodialysis arrangements [facility]way to [facility] Dx: CHRISTY. Assessment and plan reviewed with Dr. Chavez.
[2024-10-25] MEDS: HEPARIN/D5w 25,000 UNITS 25,000 UNITS/250 ML IV.SOLN. 8.6 UNITS CONT INF (18:15)
[2024-10-25 21:07] LABS: Cytoplasmic Ab (C-ANCA) <1:20 titer (Neg:<1:20); PROEL- A/G Ratio 0.7 (0.7-1.7); PROEL- Albumin 2.4 g/dL (2.9-4.4); PROEL- Alpha-1 Globulin 0.3 g/dL (0.0-0.4); PROEL- Alpha-2 Globulin 1.2 g/dL (0.4-1.0); PROEL- Beta Globulin 1.0 g/dL (0.7-1.3); PROEL- Gamma Globulin 1.0 g/dL (0.4-1.8); PROEL- Globulin, Total 3.6 g/dL (2.2-3.9); PROEL- TOTAL PROTEIN 6.0 g/dL (6.0-8.5); PROEL-M-Spike Comment: g/dL (Not Observed); Perinuclear Ab (P-ANCA) <1:20 titer (Neg:<1:20)
[2024-10-25 21:50] VITALS: BP 146/75; PULSE 93; RESP 22; TEMP 36.9; O2SAT 94
[2024-10-25] MEDS: Senna Tablet 1 TABLET PO (21:58)
[2024-10-25] MEDS: 0.9% Saline Lock 10 ML Syringe IV (21:59)
[2024-10-26 00:59] LABS: Partial Thromboplast Time 42.9 Seconds (24.1-36.2)
[2024-10-26] MEDS: Heparin Nomogram Adjustment 5,000 UNIT/ML VIAL IV ×2 (01:07→15:20)
[2024-10-26 03:14] VITALS: O2SAT 89
[2024-10-26 03:20] VITALS: BP 146/76; PULSE 95; RESP 20; TEMP 36.8; O2SAT 93
[2024-10-26 07:08] LABS: Hematocrit 26.7 % (40-54); Hemoglobin 8.8 g/dL (13.0-16.5); Mean Corp Hgb Conc 33.0 g/dL (32-36); Mean Corpuscular Volume 91.8 fL (80-94); Mean Platelet Vol. 11.2 fl (6.2-12.0); POSITIVE COUNT YES; POSITIVE MORPHOLOGY YES; Platelet Count 311 K/mm3 (150-450); RBC Distribution Width CV 13.8 % (11.6-14.6); RBC Distribution Width SD 46.4 fl (35.1-43.9); Red Blood Count 2.91 M/mm3 (4.6-6.2); White Blood Count 17.9 K/mm3 (4.4-11.0)
[2024-10-26 07:46] LABS: Differential Indicated MANUAL DIFF
[2024-10-26 07:50] LABS: Partial Thromboplast Time 56.4 Seconds (24.1-36.2)
[2024-10-26 08:06] LABS: Neutrophil-Band 2 % (0-5); Neutrophil-Segmented 74 % (47-70); Total Cells Counted 100 (MANUAL DIFF)
--- NOTE | 2024-10-26 08:25 | PN.SURG_ITS ---
Subjective Subjective Patient seen and examined during AM rounds. He reports feeling well overall. He denies any specific complaints. Objective Data Objective Data Vital Signs: Vital Signs Temp Pulse Resp BP Pulse Ox O2 Del Method O2 Flow Rate 98.3 F 95 20 H 146/76 H 93 Nasal Cannula 2 10/26/24 03:20 10/26/24 03:20 10/26/24 03:20 10/26/24 03:20 10/26/24 03:20 10/26/24 03:24 10/26/24 03:24 Oxygen Flow Rate (L/min) 2 Oxygen Delivery Method Nasal Cannula Weight: 194 lb 14.218 oz Body Mass Index (BMI) 27.9 Intake & Output: Intake and Output for Last 24 Hours 10/24/24 10/25/24 10/26/24 23:59 23:59 23:59 Intake Total 371.50 / 371.50 760 / 760 258.91 / 258.91 Output Total 1000 / 1000 1200 / 1200 450 / 450 Balance -628.50 / -628.50 -440 / -440 -191.09 / -191.09 Lab / Micro Data 10/26/24 06:56 10/26/24 06:56 Labs: Laboratory Results - last 24 hr 10/22/24 08:15: Total Protein (PEP) 6.0, Albumin (PEP) 2.4 L, Globulin (PEP) 3.6, Albumin/Globulin (PEP) 0.7, Ighun-0-Fphniuihh 0.3, Biiin-4-Zpivptant 1.2 H, Beta Globulins 1.0, Gamma Globulins 1.0, M-Ernie Comment:, PEP Note Comment, PEP Interpretation Comment, c-ANCA Antibody <1:20, Atypical p-ANCA <1:20, p-ANCA Antibody <1:20, Glomerular Base Memb Ab < 0.2, Complement C3 178 H, Complement C4 34 10/25/24 04:47: Procalcitonin 0.33 H 10/25/24 10:15: Urine Color Yellow, Urine Clarity Clear, Urine pH 6.0, Ur Specific [place] 1.010, Urine Protein 100 H, Urine Glucose (UA) Normal, Urine Ketones Negative, Urine Occult Blood 250 H, Urine Nitrite Negative, Urine Bilirubin Negative, Urine Urobilinogen Normal, Ur Leukocyte Esterase 500 H, Urine RBC > 100 SEEN, Urine WBC 10-25 SEEN, Ur Squamous Epith Cells 0-5 SEEN, Urine Bacteria 0 SEEN, Urine Mucus 0 SEEN 10/25/24 11:17: POC Glucose 183 H 10/25/24 16:25: POC Glucose 257 H 10/25/24 21:56: POC Glucose 148 H 10/26/24 00:38: APTT 42.9 H 10/26/24 06:31: POC Glucose 141 H 10/26/24 06:56: WBC 17.9 H, RBC 2.91 L, Hgb 8.8 L, Hct 26.7 L, MCV 91.8, MCH 30.2, MCHC 33.0, RDW Std Deviation 46.4 H, RDW Coeff of Sara 13.8, Plt Count 311, MPV 11.2, Neut % (Auto) Not Reportable, Absolute Neuts (auto) 13.6 H, Absolute Lymphs (auto) 2.69, Total Counted 100, Neutrophils % (Manual) 74 H, Band Neutrophils % 2, Lymphocytes % (Manual) 15 L, Monocytes % (Manual) 4, Eosinophils % (Manual) 2, Metamyelocytes % 2 H, Myelocytes % 1 H, Platelet Estimate ADEQUATE, Plt Morphology Comment GIANT, APTT 56.4 H Micro: Microbiology 10/17/24 18:30 Blood Culture (Wb) - Anticubital Right Blood Culture - Final No growth in 5 days. 10/17/24 18:34 Blood Culture (Wb) - Anticubital Left Blood Culture - Final No growth in 5 days. 10/21/24 09:23 Stool Enteric Bacteriology - Final 10/21/24 09:23 Stool Clostridioides difficile (PCR) - Final 10/18/24 11:58 Urine Catheter - Larkin Urine Culture - Final Culture exhibits no growth. 10/19/24 10:15 Urine Catheter - Catheter Legionella Antigen - Final 10/19/24 10:15 Urine Catheter - Catheter Streptococcus pneumoniae Antigen (M - Final 10/19/24 17:55 Mucosa - Nasopharyngeal Respiratory Panel (PCR) - Final 10/19/24 18:11 Mucosa - Nose Coronavirus COVID-19 PCR - Final Radiography Diagnostic Testing: Radiology Impression Chest X-Ray 10/25/24 11:03 IMPRESSION: Mild degree of bibasilar atelectasis. Reading [facility] Physical Exam Const no apparent distress Constitutional Narrative: Oriented to person and place Neck Neck Narrative: Right IJ catheter insertion site bandages removed and beneath the site is healing appropriately with some mild crusted blood. Resp Resp Narrative: Mildly shallow inspiration GI GI Narrative: Nondistended, soft, nontender to palpation x 4 quadrants Assessment & Plan Assessment/Plan (1) CHRISTY (acute kidney injury): (2) History of DVT (deep vein thrombosis): (3) Chronic anticoagulation: PLAN: Plan Patient exhibits further rise in white blood cell count without apparent cause. Formal blood culture results remain pending. Otherwise patient is afebrile and without any specific complaints. Prior temporary hemodialysis catheter site is well-healing. Review of patient's BMP demonstrates worsening of his creatinine and worsened acidemia. He does continue to have some urine output. He does not appear particularly volume overloaded and his potassium remains within normal limits. Discussed with hospitalist service and plans are tentatively in place to begin empiric antibiotic coverage. With rise in WBC and ANC I remain concerned about placing a tunneled line and risk for propagating infection/bacteremia. Please continue dialogue with surgery to work for optimal timing of catheter replacement and next dialysis. Eliot Hand MD General Surgery Endocrine Surgery Pager: [facility] [address] [place] [address], [address] [place] [address] Office: [phone] Charges/Coding Visit Charges Inpatient E&M: 75612 Subs Hosp L2
[2024-10-26 08:52] LABS: Anion Gap 15 (5-15); BUN 59 mg/dL (4-19); BUN/Creat Ratio 7.9 RATIO (10-20); Calcium,Total 8.5 mg/dL (7.6-11.0); Carbon Dioxide 18.5 mmol/L (21.0-32.0); Chloride 106 mmol/L (98-108); Estimated Creatinine Clearance 10.20 ml/min (50-250); Glucose 173 mg/dL (70-99); Potassium 3.7 mmol/L (3.3-5.1)
[2024-10-26 09:20] VITALS: BP 136/75; PULSE 99; RESP 16; TEMP 36.9; O2SAT 97
--- NOTE | 2024-10-26 09:54 | CT_ITS ---
PROCEDURE: CT CHEST, ABD, PELVIS WO CONT 10/26/2024 REASON FOR EXAM: INFECTION OF UNKNOWN ORIGIN TECHNIQUE: Chest, abdomen and pelvis CT without intravenous contrast. Coronal and Sagittal reconstruction series were provided. One or more dose reduction techniques were used (e.g., Automated exposure control, adjustment of the mA and/or kV according to patient size, use of iterative reconstruction technique. RADIATION DOSE SUMMARY: CTDlvol: 11.05, 17.59 mGy DLP: 1377.58 mGycm FINDINGS: CHEST: LUNGS: No pulmonary mass. Dependent opacities in the right middle lobe, lingula and paski-jhhwdku-hhnp-left lower lobes, which has mildly improved. PLEURAL SPACES: Small right and minimal left pleural effusions. No pneumothorax. HEART: Mild cardiomegaly. No significant pericardial effusion. MEDIASTINUM: No lymphadenopathy. AORTA: No aneurysm. PULMONARY VESSELS: The pulmonary veins are enlarged. ESOPHAGUS: Unremarkable. CHEST WALL: Thickened left pectoralis major muscle with 1.6 (AP) x 2.3 (TR) x 3.2 (CC) cm heterogeneously hyperdense lesion and adjacent fat stranding. This is new since the prior study. BONES: No acute osseous abnormality. Degenerative changes of the spine. Mild degenerative changes of the spine. ABDOMEN AND PELVIS: LIVER: Hypodense 1.3 cm lesion in the lateral left lobe, possibly a cyst. GALLBLADDER AND BILE DUCTS: Unremarkable. No calcified stone. No ductal dilation. PANCREAS: Unremarkable. SPLEEN: Unremarkable. ADRENAL GLANDS: Unremarkable. KIDNEYS/URETERS: Right renal cortical scarring. Left renal calculus measuring 2.7 mm. No hydronephrosis or hydroureter. No ureteral or bladder calculi. Partially exophytic 3.4 cm superior left renal cyst. Inferior left renal cyst with thin rim calcification measuring 1.5 cm. STOMACH AND BOWEL: Residual enteric contrast seen throughout the colon. No obstruction or perforation. No wall thickening. Few colonic diverticula. No CT evidence of colitis or acute diverticulitis. APPENDIX: Normal-appearing appendix. No CT evidence for appendicitis. RETRO/PERITONEUM: Minimal pelvic fluid. No free air or focal fluid collections. LYMPH NODES: No lymphadenopathy. PELVIC ORGANS: Larkin catheter and air within the decompressed urinary bladder. VASCULATURE: No aortic aneurysm. An IVC filter is present. SOFT TISSUES: Small fat-containing umbilical hernia. Multiple areas of body wall edema. BONES: No acute osseous abnormality. Mild degenerative changes of the spine. CT/CT Chest, Abd, Pelvis WO Cont IMPRESSION: 1. Thickened left pectoralis major muscle with intramuscular hematoma. This i s new since the prior study. 2. Cardiomegaly with mild vascular congestion. 3. Bilateral pleural effusions, small on the right and minimal on the left. 4. Improving dependent lung opacities bilaterally, likely atelectasis and/or i nfiltrates. 5. Nonobstructing left renal calculus. Reading Location: [id number]
[2024-10-26] MEDS: Lactobacillis Acidophilus 1 CAP PO ×4 (09:56→21:24)
[2024-10-26] MEDS: Piperacil/Tazobactam 3.375 GM in 0.9% Normal Saline (50mL MB+) 50 ML IV ×2 (10:12→21:25)
[2024-10-26] MEDS: 0.9% Saline Lock 10 ML Syringe IV ×3 (10:13→21:24)
[2024-10-26] MEDS: Vancomycin HCl 2,000 MG in 0.9% Normal Saline (500mL Bag) 500 ML 250 MG IV (11:46)
--- NOTE | 2024-10-26 11:51 | PN_ITS ---
Subjective Subjective Patient seen and examined with his nurse by his bedside. He was comfortably sitting up in bed eating breakfast. He had no complaints. He denied any fever, chills, shortness of breath, palpitations, nausea vomiting or any other symptoms. Review of systems otherwise negative. He has remained hemodynamically stable. WBC has trended up further to 17.9 today. Objective Data Objective Data Vital Signs: Vital Signs Temp Pulse Resp BP Pulse Ox O2 Del Method O2 Flow Rate 98.5 F 99 16 136/75 H 97 Room Air 2 10/26/24 09:20 10/26/24 09:20 10/26/24 09:20 10/26/24 09:20 10/26/24 09:20 10/26/24 09:20 10/26/24 08:35 Oxygen Flow Rate (L/min) 2 Oxygen Delivery Method Room Air Weight: 194 lb 14.218 oz Body Mass Index (BMI) 27.9 Intake & Output: Intake and Output for Last 24 Hours 10/24/24 10/25/24 10/26/24 23:59 23:59 23:59 Intake Total 371.50 / 371.50 760 / 760 258.91 / 258.91 Output Total 1000 / 1000 1200 / 1200 450 / 450 Balance -628.50 / -628.50 -440 / -440 -191.09 / -191.09 Lab / Micro Data 10/26/24 06:56 10/26/24 06:56 Labs: Laboratory Results - last 24 hr 10/22/24 08:15: Total Protein (PEP) 6.0, Albumin (PEP) 2.4 L, Globulin (PEP) 3.6, Albumin/Globulin (PEP) 0.7, Uuods-5-Kblwyakrw 0.3, Ifoch-7-Qzrffsgmw 1.2 H, Beta Globulins 1.0, Gamma Globulins 1.0, M-Ernie Comment:, PEP Note Comment, PEP Interpretation Comment, c-ANCA Antibody <1:20, Atypical p-ANCA <1:20, p-ANCA Antibody <1:20, Glomerular Base Memb Ab < 0.2, Complement C3 178 H, Complement C4 34 10/25/24 11:17: POC Glucose 183 H 10/25/24 16:25: POC Glucose 257 H 10/25/24 21:56: POC Glucose 148 H 10/26/24 00:38: APTT 42.9 H 10/26/24 06:31: POC Glucose 141 H 10/26/24 06:56: WBC 17.9 H, RBC 2.91 L, Hgb 8.8 L, Hct 26.7 L, MCV 91.8, MCH 30.2, MCHC 33.0, RDW Std Deviation 46.4 H, RDW Coeff of Sara 13.8, Plt Count 311, MPV 11.2, Neut % (Auto) Not Reportable, Absolute Neuts (auto) 13.6 H, Absolute Lymphs (auto) 2.69, Total Counted 100, Neutrophils % (Manual) 74 H, Band Neutrophils % 2, Lymphocytes % (Manual) 15 L, Monocytes % (Manual) 4, Eosinophils % (Manual) 2, Metamyelocytes % 2 H, Myelocytes % 1 H, Platelet Estimate ADEQUATE, Plt Morphology Comment GIANT, APTT 56.4 H, Sodium 139, Potassium 3.7, Chloride 106, Carbon Dioxide 18.5 L, Anion Gap 15, BUN 59 H, C reatinine 7.44 H*, Estim Creat Clear Calc 10.20 L, Est GFR (MDRD) Non-Af 7 L, B UN/Creatinine Ratio 7.9 L, Glucose 173 H, Calcium 8.5 Micro: Microbiology 10/17/24 18:30 Blood Culture (Wb) - Anticubital Right Blood Culture - Final No growth in 5 days. 10/17/24 18:34 Blood Culture (Wb) - Anticubital Left Blood Culture - Final No growth in 5 days. 10/21/24 09:23 Stool Enteric Bacteriology - Final 10/21/24 09:23 Stool Clostridioides difficile (PCR) - Final 10/18/24 11:58 Urine Catheter - Larkin Urine Culture - Final Culture exhibits no growth. 10/19/24 10:15 Urine Catheter - Catheter Legionella Antigen - Final 10/19/24 10:15 Urine Catheter - Catheter Streptococcus pneumoniae Antigen (M - Final 10/19/24 17:55 Mucosa - Nasopharyngeal Respiratory Panel (PCR) - Final 10/19/24 18:11 Mucosa - Nose Coronavirus COVID-19 PCR - Final Physical Exam Const alert, oriented x3, no apparent distress and average body habitus General Appearance: cooperative HEENT normocephalic, head/scalp atraumatic, hearing grossly normal bilaterally, moist oral mucous membranes and oropharynx normal Eyes EOMs intact bilaterally and conjunctivae normal Eyes Narrative: No scleral icterus Neck no lymphadenopathy, supple and no JVD Neck Narrative: Trachea midline Lymph Lymphatic: no lymphedema noted Resp Resp Narrative: Mildly diminished breath sounds bibasilar. No wheezes or crackles. on room air. Cardio regular rate, regular rhythm, S1 normal heart sound, S2 normal heart sound and no murmurs GI normal to inspection, nondistended, normoactive bowel sounds, soft to palpation, non-tender and non-distended Extremity normal capillary refill, no clubbing, cyanosis or edema and no calf tenderness General Extremity: no tenderness to palpation of joints or extremities Skin General Skin Exam: no breakdown Neuro CN's II-XII intact bilaterally, moves all extremities and no focal motor deficits Neuro Narrative: Bradykinesia, speech is clear and normal though he often appears hesitant in speech and movement. Sensorium / Orientation: awake and alert Motor Exam: general weakness Psych thought process normal and cooperative Psych Narrative: flat affect Mood & Affect: flat affect Assessment & Plan Assessment/Plan (1) High anion gap metabolic acidosis: (2) Urethral stricture: (3) Urinary retention: (4) Fall: QUALIFIERS: Encounter type: initial encounter Qualified Code(s): W19.XXXA - Unspecified fall, initial encounter (5) Rhabdomyolysis: QUALIFIERS: Rhabdomyolysis type: non-traumatic Qualified Code(s): M62.82 - Rhabdomyolysis PLAN: Plan #Acute hypoxic respiratory failure due to multilobar pneumonia and fluid overload * now on room air. Chest x-ray done showed vascular congestion. * CT of the chest showed multilobar pneumonia on admission.Completed a course of IV zosyn yesterday from 10/19/2024 till 10/24/2024 * Urine for strep and Legionella antigens were negative. Speech therapy on board in light of history of stroke and Parkinson's disease. * COVID and respiratory panels were negative. * should improve with dialysis * wbc up to 17.9 from 14.7 yesterday * Urinalysis was not very impressive for UTI. Bacteria was negative but he did have elevated leukocyte esterase and WBC. There were no nitrites. Urine cultures and blood cultures are pending. * In the bed to further elucidate the cause of this elevated white cell count, CT of the chest abdomen and pelvis was done which is showing thickened left pectoralis major muscle with intramuscular hematoma which is new since prior study cardiomegaly with mild vascular congestion, bilateral pleural effusions small on the right and minimal on the left and improving dependent lung opacities bilaterally likely atelectasis and/or infiltrates and nonobstructing left renal calculus. The intramuscular hematoma is likely due to the dialysis catheter that was pulled. * Patient started on IV vancomycin and Zosyn empirically. Blood cultures pending. * * #CHRISTY on CKD stage IIIb * Commenced on dialysis. * Management as per nephrology. * on bicarb. * .Nephrology patient need continued dialysis so general surgery contacted for insertion of permanent dialysis catheter. Will hold heparin * General Surgery not during the dialysis catheter today because of the elevated WBC patient started empirically on broad-spectrum antibiotics as above. * Discussed with Dr. Hand. If nephrology deems that patient will need dialysis then a temporary dialysis catheter will be inserted tomorrow. Per Dr. Hand nobody available to do the permanent dialysis catheter on Monday. * #Rhabdomyolysis: * resolved. * #Acute anemia: Hemoglobin today is 8.8. Remained stable. Will monitor. #Hematuria due to urethral stricture * Had urinary retention and urology had to be consulted to place a Larkin as he could not be placed in the ED. Having some mild hematuria but is clearing up. Likely traumatic as a result of passing the Larkin. * To leave Larkin in situ on discharge and to follow-up with urology on outpatient basis. * #Type 2 diabetes mellitus: A1c is 8.1. On insulin sliding scale. Accuhecks ACHS. Usually on metformin at home which is currently on hold. #History of DVT: Has IVC filter in situ. on heparin drip. 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 Lives alone currently. Family looking at getting him into assisted living. On aspirin. PT OT on board. #Benign essential hypertension: On metoprolol. Lisinopril held due to CHRISTY on CKD #Hyperlipidemia: On statin #Heart failure with reduced ejection fraction: Not in exacerbation but is fluid overloaded due to CHRISTY. Dialysis helping with fluid removal #Parkinson's disease with recent fall: PT OT on board. On levodopa carbidopa. #DVT prophylaxis: on heparin drip Disposition: will need placement Charges/Coding Visit Charges Inpatient E&M: 29161 Subs Hosp L2
[2024-10-26 11:56] VITALS: O2SAT 92
[2024-10-26 14:57] LABS: Partial Thromboplast Time 50.3 Seconds (24.1-36.2)
--- NOTE | 2024-10-26 15:06 | PCM.RX.CS ---
Consult Antibiotic Management Pharmacy has been consulted to manage selected antibiotic: Vancomycin Type of Intervention Type of Consult: New start Labs Labs: Sodium 139 mmol/L (133-145) 10/26/24 06:56 Potassium 3.7 mmol/L (3.3-5.1) 10/26/24 06:56 Chloride 106 mmol/L (98-108) 10/26/24 06:56 Carbon Dioxide 18.5 mmol/L (21.0-32.0) L 10/26/24 06:56 Anion Gap 15 (5-15) 10/26/24 06:56 BUN 59 mg/dL (4-19) H 10/26/24 06:56 Creatinine 7.44 mg/dL (0.70-1.20) H* 10/26/24 06:56 Est GFR (MDRD) Non-Af 7 (>60) L 10/26/24 06:56 BUN/Creatinine Ratio 7.9 RATIO (10-20) L 10/26/24 06:56 Glucose 173 mg/dL (70-99) H 10/26/24 06:56 Microbiology Microbiology: Microbiology 10/17/24 18:30 Blood Culture (Wb) - Anticubital Right Blood Culture - Final No growth in 5 days. 10/17/24 18:34 Blood Culture (Wb) - Anticubital Left Blood Culture - Final No growth in 5 days. 10/21/24 09:23 Stool Enteric Bacteriology - Final 10/21/24 09:23 Stool Clostridioides difficile (PCR) - Final 10/18/24 11:58 Urine Catheter - Larkin Urine Culture - Final Culture exhibits no growth. 10/19/24 10:15 Urine Catheter - Catheter Legionella Antigen - Final 10/19/24 10:15 Urine Catheter - Catheter Streptococcus pneumoniae Antigen (M - Final 10/19/24 17:55 Mucosa - Nasopharyngeal Respiratory Panel (PCR) - Final 10/19/24 18:11 Mucosa - Nose Coronavirus COVID-19 PCR - Final Dosing Weight Weight used for dosin.4 kg Estimated Creatinine Clearance Estimated Creatinine Clearance: on HD Goal Trough Goal Trough: 15-20 mcg/mL Pharmacy Plan for Drug Dosing Pharmacy Plan for Drug Dosing: Give initial load dose (25mg/kg) of 2000mg IV x1 today. It is not known yet when the next dialysis session will be but when that is known pharmacy will enter the next dose of vancomycin (7.5mg/kg based on the patient's weight) to be given after the next HD session. Subsequent doses after that will be guided by pre-dialysis random vanc levels. Pharmacy Service will continue to monitor and adjust dosing as required. Date/Time Labs Ordered Labs to be done on [date and time ordered]: unsure at this time
[2024-10-26 15:20] VITALS: BP 134/80; PULSE 99; RESP 18; TEMP 36.5; O2SAT 97
--- NOTE | 2024-10-26 20:09 | PCM.PN.REN ---
Subjective Subjective Following for CHRISTY. Patient denies chest pain, dyspnea or nausea. Patient does have lower extremity edema which is unchanged. Objective Data Objective Data Vital Signs: Vital Signs Temp Pulse Resp BP Pulse Ox O2 Del Method O2 Flow Rate 97.7 F L 99 18 134/80 H 97 Room Air 2 10/26/24 15:20 10/26/24 15:20 10/26/24 15:20 10/26/24 15:20 10/26/24 15:20 10/26/24 15:20 10/26/24 11:56 Oxygen Flow Rate (L/min) 2 Oxygen Delivery Method Room Air Weight: 88.4 kg Body Mass Index (BMI) 27.9 Intake & Output: Intake and Output for Last 24 Hours 10/24/24 10/25/24 10/26/24 23:59 23:59 23:59 Intake Total 371.50 / 371.50 760 / 760 1685.71 / 1685.71 Output Total 1000 / 1000 1200 / 1200 800 / 800 Balance -628.50 / -628.50 -440 / -440 885.71 / 885.71 Lab / Micro Data 10/26/24 06:56 10/26/24 06:56 Labs: Laboratory Results - last 24 hr 10/22/24 08:15: Total Protein (PEP) 6.0, Albumin (PEP) 2.4 L, Globulin (PEP) 3.6, Albumin/Globulin (PEP) 0.7, Lhqvr-7-Yhkkflpnc 0.3, Cbicv-5-Lzubpwvtq 1.2 H, Beta Globulins 1.0, Gamma Globulins 1.0, M-Ernie Comment:, PEP Note Comment, PEP Interpretation Comment, c-ANCA Antibody <1:20, Atypical p-ANCA <1:20, p-ANCA Antibody <1:20, Glomerular Base Memb Ab < 0.2, Complement C3 178 H, Complement C4 34 10/25/24 21:56: POC Glucose 148 H 10/26/24 00:38: APTT 42.9 H 10/26/24 06:31: POC Glucose 141 H 10/26/24 06:56: WBC 17.9 H, RBC 2.91 L, Hgb 8.8 L, Hct 26.7 L, MCV 91.8, MCH 30.2, MCHC 33.0, RDW Std Deviation 46.4 H, RDW Coeff of Sara 13.8, Plt Count 311, MPV 11.2, Neut % (Auto) Not Reportable, Absolute Neuts (auto) 13.6 H, Absolute Lymphs (auto) 2.69, Total Counted 100, Neutrophils % (Manual) 74 H, Band Neutrophils % 2, Lymphocytes % (Manual) 15 L, Monocytes % (Manual) 4, Eosinophils % (Manual) 2, Metamyelocytes % 2 H, Myelocytes % 1 H, Platelet Estimate ADEQUATE, Plt Morphology Comment GIANT, APTT 56.4 H, Sodium 139, Potassium 3.7, Chloride 106, Carbon Dioxide 18.5 L, Anion Gap 15, BUN 59 H, Creatinine 7.44 H*, Estim Creat Clear Calc 10.20 L, Est GFR (MDRD) Non-Af 7 L, BUN/Creatinine Ratio 7.9 L, Glucose 173 H, Calcium 8.5 10/26/24 11:48: POC Glucose 196 H 10/26/24 14:20: APTT 50.3 H 10/26/24 16:22: POC Glucose 180 H Micro: Microbiology 10/17/24 18:30 Blood Culture (Wb) - Anticubital Right Blood Culture - Final No growth in 5 days. 10/17/24 18:34 Blood Culture (Wb) - Anticubital Left Blood Culture - Final No growth in 5 days. 10/21/24 09:23 Stool Enteric Bacteriology - Final 10/21/24 09:23 Stool Clostridioides difficile (PCR) - Final 10/18/24 11:58 Urine Catheter - Taylor Urine Culture - Final Culture exhibits no growth. 10/19/24 10:15 Urine Catheter - Catheter Legionella Antigen - Final 10/19/24 10:15 Urine Catheter - Catheter Streptococcus pneumoniae Antigen (M - Final 10/19/24 17:55 Mucosa - Nasopharyngeal Respiratory Panel (PCR) - Final 10/19/24 18:11 Mucosa - Nose Coronavirus COVID-19 PCR - Final Radiography Diagnostic Testing: Radiology Impression Chest/Abdomen/Pelvis CT 10/26/24 09:54 IMPRESSION: 1. Thickened left pectoralis major muscle with intramuscular hematoma. This is new since the prior study. 2. Cardiomegaly with mild vascular congestion. 3. Bilateral pleural effusions, small on the right and minimal on the left. 4. Improving dependent lung opacities bilaterally, likely atelectasis and/or infiltrates. 5. Nonobstructing left renal calculus. Reading Location: [facility] [place] Physical Exam Narrative Alert and oriented no obvious distress s1s2 no murmurs lungs clear abdomen soft 2+ lower extremity pitting edema taylor + Assessment & Plan Assessment/Plan (1) CHRISTY (acute kidney injury): PLAN: Assessment/Plan: Patient is a 73-year-old male with past history of type 2 diabetes mellitus, hypertension, HFpEF, stroke, Parkinson's disease, and DVT. Patient presented to hospital on 10/17/2024 after falling at home. Patient is admitted to the hospital for treatment of acute hypoxic respiratory failure which was attributed to pneumonia and fluid overload. Patient was also found to have rhabdom[place] [address] [place]/L [place] 10/18/2024. Acute kidney injury on chronic kidney disease stage G3a. Baseline serum creatinine appears to be around 1.46 mg/dL (July 2023). CHRISTY is likely due to ischemic/nephrotoxic ATN. Admission creatinine was 2.4, CPK level was 18,000. CPK levels have trended down however he had progressive renal failure. Serum creatinine peaked at 9.55 on 10/22. We also considered alternative etiologies for acute kidney injury, so serologies were sent. So far, serologies are all negative. Patient was started on dialysis on 10/22/2024, dialyzed again 10/23 with 1 L fluid removal. Temporary hemodialysis catheter was removed as plan was for patient to have tunneled hemodialysis catheter placed. However, tunneled dialysis catheter placement was postponed on 10/25/2024 because of leukocytosis and concern for occult infection. Although serum creatinine is still trending up without dialysis, there is no urgent need for dialysis today. Patient is not hyperkalemic severely acidotic or volume overloaded. He is not oliguric. Will recheck renal function, volume status, acid-base and electrolytes again tomorrow. Outpatient hemodialysis arrangements [place] to [facility] when patient is ready to be discharged.
[2024-10-26 21:21] VITALS: BP 136/71; PULSE 90; RESP 20; TEMP 36.8; O2SAT 92
[2024-10-26] MEDS: HEPARIN/D5w 25,000 UNITS 25,000 UNITS/250 ML IV.SOLN. 10.6 UNITS CONT INF (21:23)
[2024-10-26] MEDS: Senna Tablet 1 TABLET PO (21:24)
[2024-10-26 21:35] LABS: Partial Thromboplast Time 73.6 Seconds (24.1-36.2)
[2024-10-27 03:20] VITALS: BP 151/76; PULSE 96; RESP 16; TEMP 36.6; O2SAT 95
[2024-10-27 03:53] LABS: Hematocrit 26.9 % (40-54); Hemoglobin 8.9 g/dL (13.0-16.5); Immature Granulocytes Count 0.760 X10^3/uL (0.0-0.0); Mean Corp Hgb Conc 33.1 g/dL (32-36); Mean Corpuscular Volume 91.2 fL (80-94); Mean Platelet Vol. 10.7 fl (6.2-12.0); NRBC Flagged by Analyzer 0 % (0-5); Platelet Count 397 K/mm3 (150-450); RBC Distribution Width CV 13.9 % (11.6-14.6); RBC Distribution Width SD 46.5 fl (35.1-43.9); Red Blood Count 2.95 M/mm3 (4.6-6.2); White Blood Count 17.7 K/mm3 (4.4-11.0)
[2024-10-27 04:18] LABS: Partial Thromboplast Time 85.5 Seconds (24.1-36.2)
[2024-10-27 04:56] LABS: Anion Gap 16 (5-15); BUN 58 mg/dL (4-19); BUN/Creat Ratio 7.7 RATIO (10-20); Calcium,Total 8.7 mg/dL (7.6-11.0); Carbon Dioxide 19.8 mmol/L (21.0-32.0); Chloride 104 mmol/L (98-108); Estimated Creatinine Clearance 10.10 ml/min (50-250); Glucose 148 mg/dL (70-99); Potassium 3.6 mmol/L (3.3-5.1)
[2024-10-27 09:29] VITALS: BP 142/72; PULSE 95; RESP 19; TEMP 36.4; O2SAT 98
[2024-10-27] MEDS: Lactobacillis Acidophilus 1 CAP PO ×4 (09:32→21:26)
[2024-10-27] MEDS: Piperacil/Tazobactam 3.375 GM in 0.9% Normal Saline (50mL MB+) 50 ML IV ×2 (09:35→21:25)
[2024-10-27] MEDS: 0.9% Saline Lock 10 ML Syringe IV (09:36)
[2024-10-27 11:05] LABS: Partial Thromboplast Time 67.2 Seconds (24.1-36.2)
--- NOTE | 2024-10-27 11:18 | PCM.PN.SRG ---
Subjective Subjective Patient seen and examined during AM rounds. He is preparing to leave for a walk with physical therapy. He denies any present concerns. Objective Data Objective Data Vital Signs: Vital Signs Temp Pulse Resp BP Pulse Ox O2 Del Method O2 Flow Rate 97.5 F L 95 19 H 142/72 H 98 Room Air 2 10/27/24 09:10/27/24 09:10/27/24 09:10/27/24 09:10/27/24 09:10/27/24 09:10/27/24 10:50 Oxygen Flow Rate (L/min) 2 Oxygen Delivery Method Room Air Weight: 194 lb 14.218 oz Body Mass Index (BMI) 27.9 Intake & Output: Intake and Output for Last 24 Hours 10/25/24 10/26/24 10/27/24 23:59 23:59 23:59 Intake Total 760 / 760 1740.00 / 1860.00 344.02 / 344.02 Output Total 1200 / 1200 800 / 1150 650 / 650 Balance -440 / -440 940.00 / 710.00 -305.98 / -305.98 Lab / Micro Data 10/27/24 03:40 10/27/24 03:40 Labs: Laboratory Results - last 24 hr 10/26/24 11:48: POC Glucose 196 H 10/26/24 14:20: APTT 50.3 H 10/26/24 16:22: POC Glucose 180 H 10/26/24 21:18: APTT 73.6 H 10/26/24 21:23: POC Glucose 187 H 10/27/24 03:40: WBC 17.7 H, RBC 2.95 L, Hgb 8.9 L, Hct 26.9 L, MCV 91.2, MCH 30.2, MCHC 33.1, RDW Std Deviation 46.5 H, RDW Coeff of Sara 13.9, Plt Count 397, MPV 10.7, Immature Gran % (Auto) 4.300 H, Neut % (Auto) 72.5 H, Lymph % (Auto) 12.7 L, [place] % (Auto) 5.9, Eos % (Auto) 3.8, Baso % (Auto) 0.8, Absolute Neuts (auto) 12.9 H, Absolute Lymphs (auto) 2.25, Nucleated RBC % 0, APTT 85.5 H, Sodium 139, Potassium 3.6, Chloride 104, Carbon Dioxide 19.8 L, Anion Gap 16 H, BUN 58 H, Creatinine 7.51 H*, Estim Creat Clear Calc 10.10 L, Est GFR (MDRD) Non-Af 7 L, BUN/Creatinine Ratio 7.7 L, Glucose 148 H, Calcium 8.7 10/27/24 06:41: POC Glucose 145 H 10/27/24 10:43: APTT 67.2 H Micro: Microbiology 10/25/24 10:03 Blood Culture (Wb) - Left Wrist Blood Culture - Preliminary No growth in 48 hours. 10/25/24 10:00 Blood Culture (Wb) - Left Hand Blood Culture - Preliminary No growth in 48 hours. 10/17/24 18:30 Blood Culture (Wb) - Anticubital Right Blood Culture - Final No growth in 5 days. 10/17/24 18:34 Blood Culture (Wb) - Anticubital Left Blood Culture - Final No growth in 5 days. 10/21/24 09:23 Stool Enteric Bacteriology - Final 10/21/24 09:23 Stool Clostridioides difficile (PCR) - Final 10/18/24 11:58 Urine Catheter - Larkin Urine Culture - Final Culture exhibits no growth. 10/19/24 10:15 Urine Catheter - Catheter Legionella Antigen - Final 10/19/24 10:15 Urine Catheter - Catheter Streptococcus pneumoniae Antigen (M - Final 10/19/24 17:55 Mucosa - Nasopharyngeal Respiratory Panel (PCR) - Final 10/19/24 18:11 Mucosa - Nose Coronavirus COVID-19 PCR - Final Radiography Diagnostic Testing: Radiology Impression Chest/Abdomen/Pelvis CT 10/26/24 09:54 IMPRESSION: 1. Thickened left pectoralis major muscle with intramuscular hematoma. This is new since the prior study. 2. Cardiomegaly with mild vascular congestion. 3. Bilateral pleural effusions, small on the right and minimal on the left. 4. Improving dependent lung opacities bilaterally, likely atelectasis and/or infiltrates. 5. Nonobstructing left renal calculus. Reading Location: [facility] Physical Exam Const no apparent distress Constitutional Narrative: Oriented to person and place Neck Neck Narrative: Right IJ catheter insertion site clean and well-healing. Chest Chest Narrative: Left chest is examined over the area where CT designated intramuscular hematoma. There is nothing visible from the skin surface. Patient denies any tenderness with palpation over this area. Resp normal respiratory effort Resp Narrative: Mildly shallow inspiration Assessment & Plan Assessment/Plan (1) CHRISTY (acute kidney injury): (2) History of DVT (deep vein thrombosis): (3) Chronic anticoagulation: PLAN: Plan Patient exhibits stable rise in white blood cell count without apparent cause. [place] scan with CT was performed yesterday?no clear infectious etiology was detected, but patient was noted to have small intramuscular hematoma of the left pectoralis muscle. I do not see any clinical evidence of this on exam today. Formal blood culture results remain pending. Patient remains afebrile and without any specific complaints. Empiric antibiotics were initiated with vancomycin and Zosyn yesterday. Prior temporary hemodialysis catheter site is well-healing. Review of patient's BMP, again, demonstrates worsening of his creatinine with persistent acidemia. However, he does continue to have some urine output and he does not appear particularly volume overloaded. His potassium remains within normal limits. Nephrology wrote yesterday that they did not find cause for imminent dialysis yesterday but will await their reevaluation today. Ideally patient's white blood cell count would be closer to normal and we would have reassurance with negative blood cultures prior to proceeding with a catheter placement. No plans for catheter placement today. Please continue dialogue with surgery to work for optimal timing of catheter replacement and next dialysis. Eliot Hand MD General Surgery Endocrine Surgery Pager: [facility] [address] [place] [address], [address] [place] [address] Office: [phone] Charges/Coding Visit Charges Inpatient E&M: 93200 Subs Hosp L2
--- NOTE | 2024-10-27 12:36 | PN_ITS ---
Subjective Subjective Patient seen and examined. He had no complaints today and had an uneventful night. Review of systems is otherwise negative. He has remained hemodynamically stable. He is on 2L of oxygen by nasal canula. He has otherwise remained hemodynamically stable. Objective Data Objective Data Vital Signs: Vital Signs Temp Pulse Resp BP Pulse Ox O2 Del Method O2 Flow Rate 97.5 F L 95 19 H 142/72 H 98 Room Air 2 10/27/24 09:10/27/24 09:10/27/24 09:10/27/24 09:10/27/24 09:10/27/24 09:10/27/24 10:50 Oxygen Flow Rate (L/min) 2 Oxygen Delivery Method Room Air Weight: 194 lb 14.218 oz Body Mass Index (BMI) 27.9 Intake & Output: Intake and Output for Last 24 Hours 10/25/24 10/26/24 10/27/24 23:59 23:59 23:59 Intake Total 760 / 760 1740.00 / 1860.00 704.02 / 704.02 Output Total 1200 / 1200 800 / 1150 850 / 850 Balance -440 / -440 940.00 / 710.00 -145.98 / -145.98 Lab / Micro Data 10/27/24 03:40 10/27/24 03:40 Labs: Laboratory Results - last 24 hr 10/26/24 14:20: APTT 50.3 H 10/26/24 16:22: POC Glucose 180 H 10/26/24 21:18: APTT 73.6 H 10/26/24 21:23: POC Glucose 187 H 10/27/24 03:40: WBC 17.7 H, RBC 2.95 L, Hgb 8.9 L, Hct 26.9 L, MCV 91.2, MCH 30.2, MCHC 33.1, RDW Std Deviation 46.5 H, RDW Coeff of Sara 13.9, Plt Count 397, MPV 10.7, Immature Gran % (Auto) 4.300 H, Neut % (Auto) 72.5 H, Lymph % (Auto) 12.7 L, Robertson % (Auto) 5.9, Eos % (Auto) 3.8, Baso % (Auto) 0.8, Absolute Neuts (auto) 12.9 H, Absolute Lymphs (auto) 2.25, Nucleated RBC % 0, APTT 85.5 H, Sodium 139, Potassium 3.6, Chloride 104, Carbon Dioxide 19.8 L, Anion Gap 16 H, BUN 58 H, Creatinine 7.51 H*, Estim Creat Clear Calc 10.10 L, Est GFR (MDRD) Non-Af 7 L, BUN/Creatinine Ratio 7.7 L, Glucose 148 H, Calcium 8.7 10/27/24 06:41: POC Glucose 145 H 10/27/24 10:43: APTT 67.2 H 10/27/24 11:32: POC Glucose 183 H Micro: Microbiology 10/25/24 10:03 Blood Culture (Wb) - Left Wrist Blood Culture - Preliminary No growth in 48 hours. 10/25/24 10:00 Blood Culture (Wb) - Left Hand Blood Culture - Preliminary No growth in 48 hours. 10/17/24 18:30 Blood Culture (Wb) - Anticubital Right Blood Culture - Final No growth in 5 days. 10/17/24 18:34 Blood Culture (Wb) - Anticubital Left Blood Culture - Final No growth in 5 days. 10/21/24 09:23 Stool Enteric Bacteriology - Final 10/21/24 09:23 Stool Clostridioides difficile (PCR) - Final 10/18/24 11:58 Urine Catheter - Larkin Urine Culture - Final Culture exhibits no growth. 10/19/24 10:15 Urine Catheter - Catheter Legionella Antigen - Final 10/19/24 10:15 Urine Catheter - Catheter Streptococcus pneumoniae Antigen (M - Final 10/19/24 17:55 Mucosa - Nasopharyngeal Respiratory Panel (PCR) - Final 10/19/24 18:11 Mucosa - Nose Coronavirus COVID-19 PCR - Final Physical Exam Const alert, no apparent distress, average body habitus and healthy appearing Constitutional Narrative: flat affect, episodic confusion General Appearance: cooperative HEENT normocephalic, head/scalp atraumatic, hearing grossly normal bilaterally, moist oral mucous membranes and oropharynx normal Eyes PERRL, EOMs intact bilaterally and conjunctivae normal Eyes Narrative: No scleral icterus Neck no lymphadenopathy, supple and no JVD Neck Narrative: Trachea midline Lymph Lymphatic: no lymphedema noted Resp No normal respiratory effort, no retractions, no use of accessory muscles and clear to auscultation bilaterally Resp Narrative: Mildly diminished breath sounds bibasilar. No wheezes or crackles. on room air. Effort and Inspection: tachypneic Auscultation: Negative for rales, rhonchi or wheezes Cardio regular rate, regular rhythm, S1 normal heart sound, S2 normal heart sound, no murmurs, no rub, no gallops and no clicks GI normal to inspection, nondistended, normoactive bowel sounds, soft to palpation, non-tender and non-distended Extremity Extremity Narrative: 1+ pedal and radial pulses, trace pitting edema bilateral lower and upper extremities especially in dependent areas, no cyanosis or clubbing General Extremity: no tenderness to palpation of joints or extremities Skin Skin Narrative: dialysis catheter in situ General Skin Exam: no breakdown Neuro CN's II-XII intact bilaterally, moves all extremities and no focal motor deficits Neuro Narrative: Bradykinesia, speech is clear and normal though he often appears hesitant in speech and movement. Sensorium / Orientation: awake and alert Motor Exam: general weakness Psych thought process normal, cooperative and affect normal Psych Narrative: flat affect Mood & Affect: flat affect Assessment & Plan Assessment/Plan (1) High anion gap metabolic acidosis: (2) Urethral stricture: (3) Urinary retention: (4) Fall: QUALIFIERS: Encounter type: initial encounter Qualified Code(s): W19.XXXA - Unspecified fall, initial encounter (5) Rhabdomyolysis: QUALIFIERS: Rhabdomyolysis type: non-traumatic Qualified Code(s): M62.82 - Rhabdomyolysis PLAN: Plan #Acute hypoxic respiratory failure due to multilobar pneumonia and fluid overload * now on room air. Chest x-ray done showed vascular congestion. * CT of the chest showed multilobar pneumonia on admission.Completed a course of IV zosyn yesterday from 10/19/2024 till 10/24/2024 * Urine for strep and Legionella antigens were negative. Speech therapy on board in light of history of stroke and Parkinson's disease. * COVID and respiratory panels were negative. * should improve with dialysis * wbc today is 17.7, slightly down from 17.9 yesterday. * Urinalysis was not very impressive for UTI. Bacteria was negative but he did have elevated leukocyte esterase and WBC. There were no nitrites. Urine cultures and blood cultures are pending. * CT of the chest abdomen and pelvis was done which is showing thickened left pectoralis major muscle with intramuscular hematoma which is new since prior study cardiomegaly with mild vascular congestion, bilateral pleural effusions small on the right and minimal on the left and improving dependent lung opacities bilaterally likely atelectasis and/or infiltrates and nonobstructing left renal calculus. The intramuscular hematoma is likely due to the dialysis catheter that was pulled. * Blood culture showed no growth in 48 hours. Urine cultures pending. * Patient started on IV vancomycin and Zosyn empirically. * If urine cultures negative will DC broad-spectrum antibiotics. * * #CHRISTY on CKD stage IIIb * Commenced on dialysis. * Management as per nephrology. * on bicarb. * .Nephrology patient need continued dialysis so general surgery contacted for insertion of permanent dialysis catheter. Will hold heparin * General Surgery not during the dialysis catheter today because of the elevated WBC patient started empirically on broad-spectrum antibiotics as above. * Discussed with Dr. Hand. If nephrology deems that patient will need dialysis then a temporary dialysis catheter will be inserted tomorrow. Per Dr. Hand nobody available to do the permanent dialysis catheter on Monday. * #Rhabdomyolysis: * resolved. * #Acute anemia: Hemoglobin today is 8.9. Remained stable. Will monitor. #Hematuria due to urethral stricture * Had urinary retention and urology had to be consulted to place a Larkin as he could not be placed in the ED. Having some mild hematuria but is clearing up. Likely traumatic as a result of passing the Larkin. * To leave Larkin in situ on discharge and to follow-up with urology on outpatient basis. * #Type 2 diabetes mellitus: A1c is 8.1. On insulin sliding scale. Accuhecks ACHS. Usually on metformin at home which is currently on hold. #History of DVT: Has IVC filter in situ. on heparin drip. 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 Lives alone currently. Family looking at getting him into assisted living. On aspirin. PT OT on board. #Benign essential hypertension: On metoprolol. Lisinopril held due to CHRISTY on CKD #Hyperlipidemia: On statin #Heart failure with reduced ejection fraction: Not in exacerbation but is fluid overloaded due to CHRISTY. Dialysis helping with fluid removal #Parkinson's disease with recent fall: PT OT on board. On levodopa carbidopa. #DVT prophylaxis: on heparin drip. Will hold tonight at midnight in anticipation of limited dialysis catheter insertion depending on wbc Disposition: will need placement Charges/Coding Visit Charges Inpatient E&M: 02494 Subs Hosp L2
[2024-10-27 15:20] VITALS: BP 132/73; PULSE 88; RESP 20; TEMP 36.4; O2SAT 94
[2024-10-27 17:56] LABS: Partial Thromboplast Time 62.8 Seconds (24.1-36.2)
[2024-10-27 21:20] VITALS: BP 155/78; PULSE 90; RESP 20; TEMP 36.8; O2SAT 95
[2024-10-27] MEDS: Senna Tablet 1 TABLET PO (21:26)
[2024-10-28] MEDS: HEPARIN/D5w 25,000 UNITS 25,000 UNITS/250 ML IV.SOLN. 9.6 UNITS CONT INF (01:27)
[2024-10-28 03:20] VITALS: BP 145/87; PULSE 88; RESP 18; TEMP 36.9; O2SAT 94
[2024-10-28 05:42] LABS: Hematocrit 26.3 % (40-54); Hemoglobin 8.8 g/dL (13.0-16.5); Immature Granulocytes Count 0.420 X10^3/uL (0.0-0.0); Mean Corp Hgb Conc 33.5 g/dL (32-36); Mean Corpuscular Volume 91.3 fL (80-94); Mean Platelet Vol. 11.2 fl (6.2-12.0); NRBC Flagged by Analyzer 0 % (0-5); Platelet Count 442 K/mm3 (150-450); RBC Distribution Width CV 13.8 % (11.6-14.6); RBC Distribution Width SD 45.0 fl (35.1-43.9); Red Blood Count 2.88 M/mm3 (4.6-6.2); White Blood Count 15.4 K/mm3 (4.4-11.0)
[2024-10-28 05:55] LABS: Partial Thromboplast Time 60.4 Seconds (24.1-36.2)
[2024-10-28 06:33] LABS: Anion Gap 17 (5-15); BUN 57 mg/dL (4-19); BUN/Creat Ratio 7.4 RATIO (10-20); Calcium,Total 8.8 mg/dL (7.6-11.0); Carbon Dioxide 19.0 mmol/L (21.0-32.0); Chloride 104 mmol/L (98-108); Estimated Creatinine Clearance 9.84 ml/min (50-250); Glucose 147 mg/dL (70-99); Potassium 3.9 mmol/L (3.3-5.1)
--- NOTE | 2024-10-28 08:08 | PN.SURG_ITS ---
Subjective Subjective Patient evaluated resting comfortably in the chair. He seems lethargic this morning. No concerns or complaints at the previous temporary dialysis site. He denies any questions about the tunneled catheter. Objective Data Objective Data Vital Signs: Vital Signs Temp Pulse Resp BP Pulse Ox O2 Del Method O2 Flow Rate 98.5 F 88 18 145/87 H 94 Room Air 2 10/28/24 03:20 10/28/24 03:20 10/28/24 03:20 10/28/24 03:10/28/24 03:10/28/24 03:10/27/24 10:50 Oxygen Flow Rate (L/min) 2 Oxygen Delivery Method Room Air Weight: 194 lb 14.218 oz Body Mass Index (BMI) 27.9 Intake & Output: Intake and Output for Last 24 Hours 10/26/24 10/27/24 10/28/24 23:59 23:59 23:59 Intake Total 1740.00 / 1860.00 1770.00 / 1870.00 150 / 150 Output Total 800 / 1150 1200 / 1550 750 / 750 Balance 940.00 / 710.00 570.00 / 320.00 -600 / -600 Lab / Micro Data 10/28/24 05:09 10/28/24 05:09 Labs: Laboratory Results - last 24 hr 10/27/24 10:43: APTT 67.2 H 10/27/24 11:32: POC Glucose 183 H 10/27/24 16:53: POC Glucose 136 H 10/27/24 17:13: APTT 62.8 H 10/27/24 21:27: POC Glucose 189 H 10/28/24 05:09: WBC 15.4 H, RBC 2.88 L, Hgb 8.8 L, Hct 26.3 L, MCV 91.3, MCH 30.6, MCHC 33.5, RDW Std Deviation 45.0 H, RDW Coeff of Sara 13.8, Plt Count 442, MPV 11.2, Immature Gran % (Auto) 2.700 H, Neut % (Auto) 74.3 H, Lymph % (Auto) 12.1 L, [place] % (Auto) 6.2, Eos % (Auto) 4.0, Baso % (Auto) 0.7, Absolute Neuts (auto) 11.4 H, Absolute Lymphs (auto) 1.87, Nucleated RBC % 0, APTT 60.4 H, Sodium 140, Potassium 3.9, Chloride 104, Carbon Dioxide 19.0 L, Anion Gap 17 H, BUN 57 H, Creatinine 7.71 H*, Estim Creat Clear Calc 9.84 L*, Est GFR (MDRD) Non-Af 7 L, BUN/Creatinine Ratio 7.4 L, Glucose 147 H, Calcium 8.8 Micro: Microbiology 10/25/24 10:03 Blood Culture (Wb) - Left Wrist Blood Culture - Preliminary No growth in 48 hours. 10/25/24 10:00 Blood Culture (Wb) - Left Hand Blood Culture - Preliminary No growth in 48 hours. 10/17/24 18:30 Blood Culture (Wb) - Anticubital Right Blood Culture - Final No growth in 5 days. 10/17/24 18:34 Blood Culture (Wb) - Anticubital Left Blood Culture - Final No growth in 5 days. 10/21/24 09:23 Stool Enteric Bacteriology - Final 10/21/24 09:23 Stool Clostridioides difficile (PCR) - Final 10/18/24 11:58 Urine Catheter - Larkin Urine Culture - Final Culture exhibits no growth. 10/19/24 10:15 Urine Catheter - Catheter Legionella Antigen - Final 10/19/24 10:15 Urine Catheter - Catheter Streptococcus pneumoniae Antigen (M - Final 10/19/24 17:55 Mucosa - Nasopharyngeal Respiratory Panel (PCR) - Final 10/19/24 18:11 Mucosa - Nose Coronavirus COVID-19 PCR - Final Physical Exam Neck Neck Narrative: Neck, right lateral- previous catheter site completely healed Assessment & Plan Assessment/Plan (1) CHRISTY (acute kidney injury): PLAN: I am following this patient in conjunction with Dr. Hand. He has independently evaluated this patient. Labs reviewed. WBC decreasing Continue IV antibiotics Plan for tunneled catheter to be placed tomorrow, likely with Dr. Palacios NPO after midnight tonight Hold Heparin starting tonight around midnight We will continue to monitor this patient Charges/Coding Visit Charges Inpatient E&M: 73662 Subs Hosp L2
[2024-10-28 09:10] VITALS: BP 131/102; PULSE 101; RESP 16; TEMP 36.7; O2SAT 91
--- NOTE | 2024-10-28 09:14 | PN.HOSP_ITS ---
Reason for Visit Chief Complaint: Fall at Home. Subjective Subjective denies any new complaints Objective Data Objective Data Vital Signs: Vital Signs Temp Pulse Resp BP Pulse Ox O2 Del Method O2 Flow Rate 36.7 C 101 H 16 131/102 H 91 Room Air 2 10/28/24 09:10 10/28/24 09:10 10/28/24 09:10 10/28/24 09:10 10/28/24 09:10 10/28/24 09:10 10/27/24 10:50 Oxygen Flow Rate (L/min) 2 Oxygen Delivery Method Room Air Weight: 88.4 kg Body Mass Index (BMI) 27.9 Intake & Output: Intake and Output for Last 24 Hours 10/26/24 10/27/24 10/28/24 23:59 23:59 23:59 Intake Total 1740.00 / 1860.00 1770.00 / 1870.00 150 / 150 Output Total 800 / 1150 1200 / 1550 750 / 750 Balance 940.00 / 710.00 570.00 / 320.00 -600 / -600 Lab / Micro Data 10/28/24 05:09 10/28/24 05:09 Labs: Laboratory Results - last 24 hr 10/27/24 10:43: APTT 67.2 H 10/27/24 11:32: POC Glucose 183 H 10/27/24 16:53: POC Glucose 136 H 10/27/24 17:13: APTT 62.8 H 10/27/24 21:27: POC Glucose 189 H 10/28/24 05:09: WBC 15.4 H, RBC 2.88 L, Hgb 8.8 L, Hct 26.3 L, MCV 91.3, MCH 30.6, MCHC 33.5, RDW Std Deviation 45.0 H, RDW Coeff of Sara 13.8, Plt Count 442, MPV 11.2, Immature Gran % (Auto) 2.700 H, Neut % (Auto) 74.3 H, Lymph % (Auto) 12.1 L, [place] % (Auto) 6.2, Eos % (Auto) 4.0, Baso % (Auto) 0.7, Absolute Neuts (auto) 11.4 H, Absolute Lymphs (auto) 1.87, Nucleated RBC % 0, APTT 60.4 H, Sodium 140, Potassium 3.9, Chloride 104, Carbon Dioxide 19.0 L, Anion Gap 17 H, BUN 57 H, Creatinine 7.71 H*, Estim Creat Clear Calc 9.84 L*, Est GFR (MDRD) Non-Af 7 L, BUN/Creatinine Ratio 7.4 L, Glucose 147 H, Calcium 8.8 Micro: Microbiology 10/25/24 10:03 Blood Culture (Wb) - Left Wrist Blood Culture - Preliminary No growth in 48 hours. 10/25/24 10:00 Blood Culture (Wb) - Left Hand Blood Culture - Preliminary No growth in 48 hours. 10/17/24 18:30 Blood Culture (Wb) - Anticubital Right Blood Culture - Final No growth in 5 days. 10/17/24 18:34 Blood Culture (Wb) - Anticubital Left Blood Culture - Final No growth in 5 days. 10/21/24 09:23 Stool Enteric Bacteriology - Final 10/21/24 09:23 Stool Clostridioides difficile (PCR) - Final 10/18/24 11:58 Urine Catheter - [facility] Urine Culture - Final Culture exhibits no growth. 10/19/24 10:15 Urine Catheter - Catheter Legionella Antigen - Final 10/19/24 10:15 Urine Catheter - Catheter Streptococcus pneumoniae Antigen (M - Final 10/19/24 17:55 Mucosa - Nasopharyngeal Respiratory Panel (PCR) - Final 10/19/24 18:11 Mucosa - Nose Coronavirus COVID-19 PCR - Final Physical Exam Const alert and no apparent distress Constitutional Narrative: up in chair. weak voice Resp normal respiratory effort, no retractions, no use of accessory muscles and clear to auscultation bilaterally Cardio regular rate, regular rhythm, S1 normal heart sound and S2 normal heart sound GI normal to inspection, nondistended, normoactive bowel sounds, soft to palpation, non-tender and non-distended Extremity normal to inspection, full ROM and no clubbing, cyanosis or edema Neuro Sensorium / Orientation: awake and alert Assessment & Plan Assessment/Plan (1) High anion gap metabolic acidosis: (2) Urethral stricture: (3) Urinary retention: (4) Fall: QUALIFIERS: Encounter type: initial encounter Qualified Code(s): W19.XXXA - Unspecified fall, initial encounter (5) Rhabdomyolysis: QUALIFIERS: Rhabdomyolysis type: non-traumatic Qualified Code(s): M62.82 - Rhabdomyolysis PLAN: Plan Acute hypoxic respiratory * RULED OUT Pneumonia * pneumococcal v aspiration. With associated pleural effusion. * received pip/tazo from 10/17-. Starting on 10/26 has been on pip/tazo and vancomycin CHRISTY * had dialysis on 10/22 and . * suspect due to ischemic ATN from being down for extended period of time and rhabdomyolysis * non-oliguric, though creatinine trending up. * general surgery on for tunnel dialysis catheter tentatively for 10/29 #Rhabdomyolysis: * resolved. * traumatic, 2/2 to being down for extended period. Hematuria due to urethral stricture * Had urinary retention and urology had to be consulted to place a Larkin as he could not be placed in the ED. Having some mild hematuria but is clearing up. Likely traumatic as a result of passing the Larkin. * To leave Larkin in situ on discharge and to follow-up with urology on outpatient basis. Chronic medical conditions: * Type 2 diabetes mellitus: A1c is 8.1. On insulin sliding scale. Accuhecks ACHS. Usually on metformin at home which is currently on hold. * History of DVT: Has IVC filter in situ. on heparin drip. 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 Has resultant chronic disability from this. Lives alone currently. Family looking at getting him into assisted living. On aspirin. PT OT on board. * Benign essential hypertension: On metoprolol. Lisinopril held due to CHRISTY on CKD * Hyperlipidemia: On statin * Heart failure with reduced ejection fraction: Not in exacerbation but is fluid overloaded due to CHRISTY. Dialysis helping with fluid removal * Parkinson's disease with recent fall: PT OT on board. On levodopa carbidopa. DVT prophylaxis: on heparin drip. Will hold tonight at midnight in anticipation of limited dialysis catheter insertion depending on wbc Disposition: TBD. will need placement when medically ready. Charges/Coding Visit Charges Inpatient E&M: 75887 Subs Hosp L2
[2024-10-28] MEDS: Piperacil/Tazobactam 3.375 GM in 0.9% Normal Saline (50mL MB+) 50 ML IV ×2 (09:18→21:49)
[2024-10-28] MEDS: 0.9% Saline Lock 10 ML Syringe IV (09:18)
[2024-10-28] MEDS: Lactobacillis Acidophilus 1 CAP PO ×3 (09:18→21:48)
--- NOTE | 2024-10-28 09:26 | CASEMGMT ---
Discharge Planning Updates sent to [facility]. Leighann Coles DC Planning Asst.
[2024-10-28 10:50] VITALS: O2SAT 96
--- NOTE | 2024-10-28 11:03 | PN.RENAL_ITS ---
Subjective Subjective No new complaints today Objective Data Objective Data Vital Signs: Vital Signs Temp Pulse Resp BP Pulse Ox O2 Del Method O2 Flow Rate 98.0 F 101 H 16 131/102 H 91 Room Air 2 10/28/24 09:10 10/28/24 09:10 10/28/24 09:10 10/28/24 09:10 10/28/24 09:10 10/28/24 09:14 10/27/24 10:50 Oxygen Flow Rate (L/min) 2 Oxygen Delivery Method Room Air Weight: 88.4 kg Body Mass Index (BMI) 27.9 Intake & Output: Intake and Output for Last 24 Hours 10/26/24 10/27/24 10/28/24 23:59 23:59 23:59 Intake Total 1740.00 / 1860.00 1770.00 / 1870.00 150 / 150 Output Total 800 / 1150 1200 / 1550 750 / 750 Balance 940.00 / 710.00 570.00 / 320.00 -600 / -600 Lab / Micro Data 10/28/24 05:09 10/28/24 05:09 Labs: Laboratory Results - last 24 hr 10/27/24 10:43: APTT 67.2 H 10/27/24 11:32: POC Glucose 183 H 10/27/24 16:53: POC Glucose 136 H 10/27/24 17:13: APTT 62.8 H 10/27/24 21:27: POC Glucose 189 H 10/28/24 05:09: WBC 15.4 H, RBC 2.88 L, Hgb 8.8 L, Hct 26.3 L, MCV 91.3, MCH 30.6, MCHC 33.5, RDW Std Deviation 45.0 H, RDW Coeff of Sara 13.8, Plt Count 442, MPV 11.2, Immature Gran % (Auto) 2.700 H, Neut % (Auto) 74.3 H, Lymph % (Auto) 12.1 L, [place] % (Auto) 6.2, Eos % (Auto) 4.0, Baso % (Auto) 0.7, Absolute Neuts (auto) 11.4 H, Absolute Lymphs (auto) 1.87, Nucleated RBC % 0, APTT 60.4 H, Sodium 140, Potassium 3.9, Chloride 104, Carbon Dioxide 19.0 L, Anion Gap 17 H, BUN 57 H, Creatinine 7.71 H*, Estim Creat Clear Calc 9.84 L*, Est GFR (MDRD) Non-Af 7 L, BUN/Creatinine Ratio 7.4 L, Glucose 147 H, Calcium 8.8 Micro: Microbiology 10/26/24 08:05 Urine Catheter - Taylor Urine Culture - Final Culture exhibits no growth. 10/25/24 10:03 Blood Culture (Wb) - Left Wrist Blood Culture - Preliminary No growth in 48 hours. 10/25/24 10:00 Blood Culture (Wb) - Left Hand Blood Culture - Preliminary No growth in 48 hours. 10/17/24 18:30 Blood Culture (Wb) - Anticubital Right Blood Culture - Final No growth in 5 days. 10/17/24 18:34 Blood Culture (Wb) - Anticubital Left Blood Culture - Final No growth in 5 days. 10/21/24 09:23 Stool Enteric Bacteriology - Final 10/21/24 09:23 Stool Clostridioides difficile (PCR) - Final 10/18/24 11:58 Urine Catheter - [place] Urine Culture - Final Culture exhibits no growth. 10/19/24 10:15 Urine Catheter - Catheter Legionella Antigen - Final 10/19/24 10:15 Urine Catheter - Catheter Streptococcus pneumoniae Antigen (M - Final 10/19/24 17:55 Mucosa - Nasopharyngeal Respiratory Panel (PCR) - Final 10/19/24 18:11 Mucosa - Nose Coronavirus COVID-19 PCR - Final Physical Exam Narrative Alert and oriented no obvious distress s1s2 no murmurs lungs clear abdomen soft 2+ lower extremity pitting edema taylor + Assessment & Plan Assessment/Plan (1) CHRISTY (acute kidney injury): PLAN: Assessment/Plan: Patient is a 73-year-old male with past history of type 2 diabetes mellitus, hypertension, HFpEF, stroke, Parkinson's disease, and DVT. Patient presented to hospital on 10/17/2024 after falling at home. Patient is admitted to the hospital for treatment of acute hypoxic respiratory failure which was attributed to pneumonia and fluid overload. Patient was also found to have rhabdom[place] [address] [place]/L on 10/18/2024. Acute kidney injury on chronic kidney disease stage G3a. Baseline serum creatinine appears to be around 1.46 mg/dL (July 2023). CHRISTY is likely due to ischemic/nephrotoxic ATN. Admission creatinine was 2.4, CPK level was 18,000. CPK levels have trended down however he had progressive renal failure. Serum creatinine peaked at 9.55 on 10/22. We also considered alternative etiologies for acute kidney injury, so serologies were sent. So far, serologies are all negative. Patient was started on dialysis on 10/22/2024 Last dialysis was . Urine output is decent. Creatinine remains high. Tunneled dialysis catheter placement as per surgery. Discussed with hospitalist. There was some concern for infection due to leukocytosis. Today potassium is okay, bicarbonate is okay. Tentatively line placement tomorrow
[2024-10-28 16:18] VITALS: BP 129/72; PULSE 104; RESP 18; TEMP 36.6; O2SAT 97
[2024-10-28 21:40] VITALS: BP 133/79; PULSE 95; RESP 18; TEMP 36.8; O2SAT 96
[2024-10-28] MEDS: Senna Tablet 1 TABLET PO (21:48)
[2024-10-29] VITALS (20 sets, daily range): BP systolic 116–148; BP diastolic 66–88; PULSE 82–106; RESP 16–23; TEMP 36.4–37.4; O2SAT 90–100; BMI 27.9; BMI 27.8
[2024-10-29 05:00] LABS: Partial Thromboplast Time 28.4 Seconds (24.1-36.2)
[2024-10-29 05:22] LABS: Hematocrit 25.3 % (40-54); Hemoglobin 8.5 g/dL (13.0-16.5); Immature Granulocytes Count 0.170 X10^3/uL (0.0-0.0); Mean Corp Hgb Conc 33.6 g/dL (32-36); Mean Corpuscular Volume 91.3 fL (80-94); Mean Platelet Vol. 11.3 fl (6.2-12.0); NRBC Flagged by Analyzer 0 % (0-5); Platelet Count 438 K/mm3 (150-450); RBC Distribution Width CV 14.1 % (11.6-14.6); RBC Distribution Width SD 46.7 fl (35.1-43.9); Red Blood Count 2.77 M/mm3 (4.6-6.2); White Blood Count 13.7 K/mm3 (4.4-11.0)
[2024-10-29 05:52] LABS: Anion Gap 16 (5-15); BUN 57 mg/dL (4-19); BUN/Creat Ratio 7.1 RATIO (10-20); Calcium,Total 8.7 mg/dL (7.6-11.0); Carbon Dioxide 19.4 mmol/L (21.0-32.0); Chloride 107 mmol/L (98-108); Estimated Creatinine Clearance 9.49 ml/min (50-250); Glucose 143 mg/dL (70-99); Potassium 4.0 mmol/L (3.3-5.1)
[2024-10-29] MEDS: 0.9% Normal Saline (500mL Bag) 500 ML 15 ML IV (08:05)
--- NOTE | 2024-10-29 08:20 | PN.HOSP_ITS ---
Reason for Visit Chief Complaint: Fall at Home. Subjective Subjective Tunnelled dialysis catheter placed. Seen on HD. Denies complaints. Objective Data Objective Data Vital Signs: Vital Signs Temp Pulse Resp BP Pulse Ox O2 Del Method O2 Flow Rate 36.6 C 99 18 132/74 H 96 Nasal Cannula 3 10/29/24 08:00 10/29/24 08:00 10/29/24 08:00 10/29/24 08:00 10/29/24 08:00 10/29/24 08:00 10/29/24 08:00 Oxygen Flow Rate (L/min) 3 Oxygen Delivery Method Nasal Cannula Weight: 88.4 kg Body Mass Index (BMI) 27.9 Intake & Output: Intake and Output for Last 24 Hours 10/27/24 10/28/24 10/29/24 23:59 23:59 23:59 Intake Total 1770.00 / 1870.00 600 / 816.48 266.48 / 266.48 Output Total 1200 / 1550 1550 / 2150 1550 / 1550 Balance 570.00 / 320.00 -950 / -1333.52 -1283.52 / -1283.52 Lab / Micro Data 10/29/24 04:15 10/29/24 04:15 Labs: Laboratory Results - last 24 hr 10/28/24 11:22: POC Glucose 218 H 10/28/24 16:20: POC Glucose 191 H 10/28/24 21:47: POC Glucose 150 H 10/29/24 04:15: WBC 13.7 H, RBC 2.77 L, Hgb 8.5 L, Hct 25.3 L, MCV 91.3, MCH 30.7, MCHC 33.6, RDW Std Deviation 46.7 H, RDW Coeff of Sara 14.1, Plt Count 438, MPV 11.3, Immature Gran % (Auto) 1.200 H, Neut % (Auto) 79.7 H, Lymph % (Auto) 8.7 L, [place] % (Auto) 6.1, Eos % (Auto) 3.5, Baso % (Auto) 0.8, Absolute Neuts (auto) 10.9 H, Absolute Lymphs (auto) 1.19, Nucleated RBC % 0, APTT 28.4, Sodium 143, Potassium 4.0, Chloride 107, Carbon Dioxide 19.4 L, Anion Gap 16 H, BUN 57 H, Creatinine 7.99 H*, Estim Creat Clear Calc 9.49 L*, Est GFR (MDRD) Non-Af 7 L , BUN/Creatinine Ratio 7.1 L, Glucose 143 H, Calcium 8.7 10/29/24 05:59: POC Glucose 130 H Micro: Microbiology 10/26/24 08:05 Urine Catheter - [place] Urine Culture - Final Culture exhibits no growth. 10/25/24 10:03 Blood Culture (Wb) - Left Wrist Blood Culture - Preliminary No growth in 48 hours. 10/25/24 10:00 Blood Culture (Wb) - Left Hand Blood Culture - Preliminary No growth in 48 hours. 10/17/24 18:30 Blood Culture (Wb) - Anticubital Right Blood Culture - Final No growth in 5 days. 10/17/24 18:34 Blood Culture (Wb) - Anticubital Left Blood Culture - Final No growth in 5 days. 10/21/24 09:23 Stool Enteric Bacteriology - Final 10/21/24 09:23 Stool Clostridioides difficile (PCR) - Final 10/18/24 11:58 Urine Catheter - [place] Urine Culture - Final Culture exhibits no growth. 10/19/24 10:15 Urine Catheter - Catheter Legionella Antigen - Final 10/19/24 10:15 Urine Catheter - Catheter Streptococcus pneumoniae Antigen (M - Final 10/19/24 17:55 Mucosa - Nasopharyngeal Respiratory Panel (PCR) - Final 10/19/24 18:11 Mucosa - Nose Coronavirus COVID-19 PCR - Final Physical Exam Const alert and no apparent distress Constitutional Narrative: on HD. HEENT head/scalp atraumatic and moist oral mucous membranes Resp normal respiratory effort, no retractions, no use of accessory muscles and clear to auscultation bilaterally Cardio regular rate, regular rhythm, S1 normal heart sound and S2 normal heart sound GI normal to inspection, nondistended, normoactive bowel sounds, soft to palpation and non-tender Extremity General Extremity: edema bilateral lower extremity Details: mild Assessment & Plan Assessment/Plan (1) High anion gap metabolic acidosis: (2) Urethral stricture: (3) Urinary retention: (4) Fall: QUALIFIERS: Encounter type: initial encounter Qualified Code(s): W19.XXXA - Unspecified fall, initial encounter (5) Rhabdomyolysis: QUALIFIERS: Rhabdomyolysis type: non-traumatic Qualified Code(s): M62.82 - Rhabdomyolysis PLAN: Plan Acute hypoxic respiratory * RULED OUT Pneumonia * pneumococcal v aspiration. With associated pleural effusion. * received pip/tazo from 10/17-. Starting on 10/26 has been on pip/tazo and vancomycin CHRISTY * had dialysis on 10/22 and . * suspect due to ischemic ATN from being down for extended period of time and rhabdomyolysis * non-oliguric, though creatinine trending up. * gtunnel dialysis catheter tentatively for 10/29. Dialysis today. Then outpatient dialysis. Rhabdomyolysis: * resolved. * traumatic, 2/ to being down for extended period. Hematuria due to urethral stricture * Had urinary retention and urology had to be consulted to place a [facility]arkin as he could not be placed in the ED. Having some mild hematuria but is clearing up. Likely traumatic as a result of passing the [place]arkin. * To leave Larkin in situ on discharge and to follow-up with urology on outpatient basis. Chronic medical conditions: * Type 2 diabetes mellitus: A1c is 8.1. On insulin sliding scale. Accuhecks ACHS. Usually on metformin at home which is currently on hold. * History of DVT: Has IVC filter in situ. on heparin drip. 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 Has resultant chronic disability from this. Lives alone currently. Family looking at getting him into assisted living. On aspirin. PT OT on board. * Benign essential hypertension: On metoprolol. Lisinopril held due to CHRISTY on CKD * Hyperlipidemia: On statin * Heart failure with reduced ejection fraction: Not in exacerbation but is fluid overloaded due to CHRISTY. Dialysis helping with fluid removal * Parkinson's disease with recent fall: PT OT on board. On levodopa carbidopa. DVT prophylaxis: on heparin drip. Will hold tonight at midnight in anticipation of limited dialysis catheter insertion depending on wbc Disposition: to [facility].
--- NOTE | 2024-10-29 08:20 | PCM.PRE.AN2 ---
ASA Classification* ASA Classification ASA Classification: 3 Assessment & Plan Anesthesia* Anesthesia Assessment Anesthesia Assessment: Discussed sedation and/or anesthesia options, risks, benefits, and alternatives with patient/parents/legal guardian/POA. Questions invited. The patient/parents/legal guardian/POA seems to understand and agrees to proceed with anesthesia plan. Reviewed the physical assessment, medical history, allergy history and patient home medications list prior to surgery/procedure/anesthetic and documented any changes. Performed airway and anesthesia risk assessments. Anesthesia Type Anesthesia Type: MAC History Source History Obtained from:: Patient and Chart Anesthesia Focused Assessment* Temperature: 97.9 F Pulse Rate: 99 Blood Pressure: 132/74 Respiratory Rate: 18 Pulse Ox: 96 Oxygen Delivery Method: Nasal Cannula Oxygen Flow Rate (L/min): 3 Airway Assessment Mouth opens: >3 cm Mallampati Score: III Teeth Condition: Caps/Crowns (Patient has several crowns. All tight.) Neck Range of motion (ROM): Limited ROM (Somewhat Decreased) Labs Anesthesia Preop lab: CBC WBC, (4.4-11.0) 13.7 K/mm3 H Today, 04:15 RBC, (4.6-6.2) 2.77 M/mm3 L Today, 04:15 Hgb, (13.0-16.5) 8.5 g/dL L Today, 04:15 Hct, (40-54) 25.3 % L Today, 04:15 Plt Count, (150-450) 438 K/mm3 Today, 04:15 CHEMISTRY Potassium, (3.3-5.1) 4.0 mmol/L Today, 04:15 Sodium, (133-145) 143 mmol/L Today, 04:15 Magnesium, (1.5-2.2) 2.0 mg/dL 10/20/24, 02:54 Phosphorus, (2.7-4.5) 3.6 mg/dL 10/19/24, 04:20 BUN, (4-19) 57 mg/dL H Today, 04:15 Creatinine, (0.70-1.20) 7.99 mg/dL H* Today, 04:15 Glucose, (70-99) 143 mg/dL H Today, 04:15 POC Glucose, (74-106) 130 mg/dL H Today, 05:59 TSH, (0.300-4.200) 0.834 uIU/mL 10/17/24, 20:25 COAG PT, (11.7-14.9) 19.0 SECONDS H 10/19/24, 09:23 Pre-Assessment Diagnosis/Proposed Procedure Planned Operative Procedure(s): Right possible left chest tunneled dialysis catheter placement. 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 When Was Last Pacemaker Check QUESTION #4 FULL TEXT: You/Your Family Experience fever (hyperthermia) with Anesthesia Last Oral Intake Last Oral intake: Last Oral Intake NPO since 00:00 10/29/24 02:52 Meds taken in AM with sips of water? 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 Unclear if he got antibiotics. 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 Has anyone observed you stop No 10/17/24 21:51 breathing during sleep? STOP Results Negative 10/17/24 21:51 QUESTION #5 FULL TEXT : Do you snore loudly (louder than talking or can be heard through closed doors)? 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 Specify any problems Hx of Preganancy in last 3 N/A 10/17/24 21:51 Months Nurse Filling Out Transfusion JSNOW 10/17/24 21:51 & Questions: Date: 10/17/24 10/17/24 21:51 Time: 22:13 10/17/24 21:51 Patient unable to answer at this time (ie. 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 Hx Now No 10/29/24 02:52 Gestational Age (in weeks): EDC: Hx Hx Para Hx Section SAB No 10/29/24 02:52 Active Medications Active Medications: Current Medications Generic Name Dose Route Start Last Admin Trade Name Freq PRN Reason Stop Dose Admin Acetaminophen 650 mg 10/17/24 22:00 10/18/24 14:03 Acetaminophen 325 Mg Tablet PO 650 mg Q6H PRN PRN Administration Pain 1-5/10 or Fever Calamine/Phenol 1 applic 10/20/24 10:00 10/28/24 21:48 Menthol/Lanolin/Calamine/Znox 113 Gm Tube TOPICAL 1 applic BID SHIRA Administration Protocol Carbidopa/Levodopa 2 tablet 10/17/24 22:00 10/29/24 06:00 Carbidopa/Levodopa 25/100 Tablet PO 2 tablet TIDAC SHIRA Administration Heparin Sodium (Porcine) 0 unit 10/25/24 18:02 10/26/24 15:20 Heparin Nomogram Adjustment 5,000 Unit/Ml Vial IV 1,000 unit UD PRN Administration Dose Adjustment Protocol Sodium Chloride 250 mls @ 15 mls/hr 10/17/24 22:17 10/23/24 16:07 IV Infused .[id number] PRN Infusion Saline Flush Sodium Chloride 250 mls @ 15 mls/hr 10/17/24 22:17 IV .[id number] PRN Additional IVPB Infusion Heparin Sodium/Dextrose 25,000 units in 250 mls @ 7.602 mls/hr 10/25/24 18:05 10/29/24 00:01 CONT INF Infused On Hold: 10/29/24 01:00 .[id number] SHIRA Titration Protocol 8.6 UNIT/KG/HR Vancomycin IV-PHARMACY TO DOSE 500 mls @ 250 mls/hr 10/26/24 08:54 1 each/ Sodium Chloride IV X1 PRN Rx to Dose Protocol Piperacillin Sod/Tazobactam 50 mls @ 12.5 mls/hr 10/26/24 09:30 10/29/24 02:52 Sod 3.375 gm/ Sodium Chloride IV Infused Q12 SHIRA Infusion Sodium Chloride 500 mls @ 0 mls/hr 10/29/24 08:00 10/29/24 08:05 IV 15 mls/hr .Q0M SHIRA Administration KVO Insulin Human Lispro 0 unit 10/18/24 07:00 10/29/24 06:01 Insulin Lispro 100 Unit/Ml Insuln.Pen SC Not Given ACHS [facility] Protocol Ipratropium [place] 1 spray 10/17/24 22:00 Ipratropium [place] 0.06% Nasal [place] NASAL BID PRN ALLERGIES Loratadine 10 mg 10/28/24 10:00 10/28/24 09:17 Loratadine 10 Mg Tablet PO 10 mg Q48 SHIRA Administration Multivitamins 1 tablet 10/18/24 08:00 10/28/24 09:17 Multivitamins,Therapeutic Tablet PO 1 tablet BREAKFAST SHIRA Administration Oxycodone HCl 10 mg 10/17/24 22:00 Oxycodone 5 Mg Tablet PO Q6H PRN PRN Pain Score 6-10 Pantoprazole Sodium 20 mg 10/17/24 22:00 10/28/24 09:17 Pantoprazole Sodium 20 Mg Tablet PO 20 mg DAILY SHIRA Administration Senna 1 tablet 10/17/24 22:00 10/28/24 21:48 Senna Tablet PO 1 tablet QHS SHIRA Administration Sodium Chloride 10 - 40 ml 10/17/24 22:17 10/28/24 09:18 0.9% Saline Lock 10 Ml Syringe IV 10 ml UD PRN Administration SALINE FLUSH Tamsulosin HCl 0.4 mg 10/18/24 17:30 10/28/24 16:21 Tamsulosin Hcl 0.4 Mg Capsule PO 0.4 mg DAILY@1730 [facility] Administration [facility] Medical History Facial droop Dysphagia Primary cardiomyopathy Essential (primary) hypertension Diastolic heart failure History of developmental delay History of DVT (deep vein thrombosis) Remote history of stroke DM II (diabetes mellitus, type II), controlled Dysarthria Stroke/cerebrovascular accident Home Medications ?Medication ?Instructions ?Recorded ?Last Taken ?Type multivitamin 1 cap PO DAILY supplement 12/26/21 11/24/22 History atorvastatin 40 mg tablet 40 mg PO QHS #30 tabs 12/05/22 Unknown Rx lisinopril 2.5 mg tablet 2.5 mg PO DAILY #30 tabs 12/05/22 Unknown Rx metoprolol succinate 25 mg 25 mg PO DAILY #30 tabs 12/05/22 Unknown Rx tablet,extended release 24 hr loratadine 10 mg tablet (Allergy 10 mg PO DAILY 01/20/23 Unknown History Relief (loratadine)) sennosides 8.6 mg tablet (Senna 8.6 mg PO QHS 01/20/23 Unknown History Lax) metformin 500 mg tablet 500 mg PO DAILY 05/23/23 Unknown History pantoprazole 20 mg tablet,delayed 20 mg PO DAILY 05/23/23 Unknown History release apixaban 5 mg tablet (Eliquis) 5 mg PO BID 11/09/23 Unknown History aspirin 81 mg chewable tablet 81 mg PO QDAY 11/09/23 Unknown History carbidopa 25 mg-levodopa 100 mg 2 tab PO TID 11/09/23 Unknown History tablet ipratropium bromide 21 mcg (0.03 2 spray intranasal TID PRN nasal 11/09/23 Unknown History %) nasal spray congestion Allergy/AdvReac Type Severity Reaction Status Date / Time No Known Allergies Allergy Verified 10/17/24 22:17 Family History Father Diabetes Social History household members: none housing: apartment number of children: 0 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 pets and animals: No Smoking Status: Never smoker alcohol intake: never substance use type: does not use Review of Systems (Anesthesia) ROS Narrative System reviewed and no additional complaints, except as documented.
--- NOTE | 2024-10-29 08:54 | PCM.HP.STD ---
HPI - General General Date of Admission: 10/17/24 Date of Service: 10/29/24 Chief Complaint: Fall at Home. HPI Narrative GUSTAVO CHADWICK, is a 73 M who presents for tunneled dialysis catheter placement [facility] Medical History Facial droop Dysphagia Primary cardiomyopathy Essential (primary) hypertension Diastolic heart failure History of developmental delay History of DVT (deep vein thrombosis) Remote history of stroke DM II (diabetes mellitus, type II), controlled Dysarthria Stroke/cerebrovascular accident Home Medications ?Medication ?Instructions ?Recorded ?Last Taken ?Type multivitamin 1 cap PO DAILY supplement 12/26/21 11/24/22 History atorvastatin 40 mg tablet 40 mg PO QHS #30 tabs 12/05/22 Unknown Rx lisinopril 2.5 mg tablet 2.5 mg PO DAILY #30 tabs 12/05/22 Unknown Rx metoprolol succinate 25 mg 25 mg PO DAILY #30 tabs 12/05/22 Unknown Rx tablet,extended release 24 hr loratadine 10 mg tablet (Allergy 10 mg PO DAILY 01/20/23 Unknown History Relief (loratadine)) sennosides 8.6 mg tablet (Senna 8.6 mg PO QHS 01/20/23 Unknown History Lax) metformin 500 mg tablet 500 mg PO DAILY 05/23/23 Unknown History pantoprazole 20 mg tablet,delayed 20 mg PO DAILY 05/23/23 Unknown History release apixaban 5 mg tablet (Eliquis) 5 mg PO BID 11/09/23 Unknown History aspirin 81 mg chewable tablet 81 mg PO QDAY 11/09/23 Unknown History carbidopa 25 mg-levodopa 100 mg 2 tab PO TID 11/09/23 Unknown History tablet ipratropium bromide 21 mcg (0.03 2 spray intranasal TID PRN nasal 11/09/23 Unknown History %) nasal spray congestion Allergy/AdvReac Type Severity Reaction Status Date / Time No Known Allergies Allergy Verified 10/17/24 22:17 Family History Father Diabetes Social History household members: none housing: apartment number of children: 0 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 pets and animals: No Smoking Status: Never smoker alcohol intake: never substance use type: does not use Vital Signs Vital Signs Vital Signs: 10/28/24 09:10 10/28/24 09:14 10/28/24 10:50 Temperature 98.0 F Temperature Source Temporal Pulse Rate 101 H Respiratory Rate 16 Respiratory Effort Normal Non-Labored Respiratory Depth Normal Respiratory Pattern Normal Blood Pressure 131/102 H Blood Pressure Mean 111 Blood Pressure Source Blood Pressure Position Blood Pressure Location Pulse Ox 91 96 Oxygen Delivery Method Room Air Room Air Oxygen Flow Rate (L/min) 10/28/24 14:00 10/28/24 16:18 10/28/24 21:00 Temperature 97.9 F Temperature Source Temporal Pulse Rate 104 H Respiratory Rate 18 Respiratory Effort Normal Non-Labored Normal Non-Labored Respiratory Depth Normal Normal Respiratory Pattern Normal Normal Blood Pressure 129/72 H Blood Pressure Mean 91 Blood Pressure Source Blood Pressure Position Blood Pressure Location Pulse Ox 97 Oxygen Delivery Method Room Air Room Air Room Air Oxygen Flow Rate (L/min) 10/28/24 21:40 10/29/24 04:15 10/29/24 04:27 Temperature 98.3 F 97.6 F L Temperature Source Oral Oral Pulse Rate 95 100 Respiratory Rate 18 20 H Respiratory Effort Normal Non-Labored Respiratory Depth Normal Respiratory Pattern Normal Blood Pressure 133/79 H 123/66 H Blood Pressure Mean 97 85 Blood Pressure Source Blood Pressure Position Blood Pressure Location Pulse Ox 96 92 Oxygen Delivery Method Room Air Room Air Room Air Oxygen Flow Rate (L/min) 10/29/24 07:30 10/29/24 08:00 10/29/24 08:22 Temperature 98.3 F 97.9 F Temperature Source Oral Temporal Pulse Rate 106 H 99 Respiratory Rate 20 H 18 Respiratory Effort Normal Non-Labored Respiratory Depth Normal Respiratory Pattern Normal Blood Pressure 145/76 H 132/74 H Blood Pressure Mean 99 93 Blood Pressure Source Monitor Blood Pressure Position Semi-Fowlers Blood Pressure Location Left Arm Pulse Ox 90 96 Oxygen Delivery Method Nasal Cannula Nasal Cannula Room Air Oxygen Flow Rate (L/min) 3 3 10/29/24 08:31 Temperature 97.9 F Temperature Source Pulse Rate 99 Respiratory Rate 18 Respiratory Effort Respiratory Depth Respiratory Pattern Blood Pressure 132/74 H Blood Pressure Mean Blood Pressure Source Blood Pressure Position Blood Pressure Location Pulse Ox 96 Oxygen Delivery Method Nasal Cannula Oxygen Flow Rate (L/min) 3 Weight Weight: 194 lb 14.218 oz Body Mass Index (BMI) 27.9 Physical Exam Const alert, oriented x3 and no apparent distress Results Lab / Micro Data 10/29/24 04:15 10/29/24 04:15 Labs: Laboratory Results - last 24 hr 10/28/24 11:22: POC Glucose 218 H 10/28/24 16:20: POC Glucose 191 H 10/28/24 21:47: POC Glucose 150 H 10/29/24 04:15: WBC 13.7 H, RBC 2.77 L, Hgb 8.5 L, Hct 25.3 L, MCV 91.3, MCH 30.7, MCHC 33.6, RDW Std Deviation 46.7 H, RDW Coeff of Sara 14.1, Plt Count 438, MPV 11.3, Immature Gran % (Auto) 1.200 H, Neut % (Auto) 79.7 H, Lymph % (Auto) 8.7 L, [place] % (Auto) 6.1, Eos % (Auto) 3.5, Baso % (Auto) 0.8, Absolute Neuts (auto) 10.9 H, Absolute Lymphs (auto) 1.19, Nucleated RBC % 0, APTT 28.4, Sodium 143, Potassium 4.0, Chloride 107, Carbon Dioxide 19.4 L, Anion Gap 16 H, BUN 57 H, Creatinine 7.99 H*, Estim Creat Clear Calc 9.49 L*, Est GFR (MDRD) Non-Af 7 L, BUN/Creatinine Ratio 7.1 L, Glucose 143 H, Calcium 8.7 10/29/24 05:59: POC Glucose 130 H Micro: Microbiology 10/26/24 08:05 Urine Catheter - [place] Urine Culture - Final Culture exhibits no growth. Assessment & Plan Assessment/Plan (1) Rhabdomyolysis: QUALIFIERS: Rhabdomyolysis type: non-traumatic Qualified Code(s): M62.82 - Rhabdomyolysis PLAN: Plan Placement of right sided tunneled dialysis catheter planned for today. Discussed the details of the planned procedure including risk benefits and alternatives. He wishes to proceed.
[2024-10-29] MEDS: Midazolam 2 MG/2 ML Syringe IV (09:00)
[2024-10-29] MEDS: Lidocaine 1% (5 ml sdv) 5 ML Vial 8 ML IV (09:08)
[2024-10-29] MEDS: Bupiv/Epi 0.25% 30 ML Vial (09:52)
[2024-10-29] MEDS: Lidocaine 1% (30 ml sdv) 30 ML Vial (09:52)
--- NOTE | 2024-10-29 10:06 | RAD_ITS ---
PROCEDURE: CXR FOR LINE PLACEMENT 10/29/2024 REASON FOR EXAM: LINE PLACEMENT TECHNIQUE: Procedure Code: [id number] Modality: DX Procedure: CXR FOR LINE PLACEMENT COMPARISON: Prior study dated October 25, 2024. FINDINGS: A right-sided double-lumen catheter has been placed with the tip in the right atrium. EKG electrodes are seen. Mild bibasilar atelectasis. No evidence of pneumothorax. The heart is nonenlarged. Degenerative changes of the thoracic spine. RAD/CXR for Line Placement IMPRESSION: The tip of the right-sided double-lumen catheter is in the right atrium. Mild bibasilar atelectasis. Reading Location: [facility]
--- NOTE | 2024-10-29 10:07 | PCM.POST.ANE ---
Anesthesia: Postop Eval I Current Vital Signs Temperature: 98.3 F Pulse Rate: 91 Blood Pressure: 117/68 Respiratory Rate: 16 Pulse Ox: 95 Assessment Airway patent: Yes Spontaneous unlabored respirations: Yes nausea: No Vomiting: No Anesthesia Complication: No Fluid Hydration Crystalloid volume administer (ml): 200 Total IV fluid infused: 200 Progress Note Anesthesia document: Postop Eval 1 completed: Yes
--- NOTE | 2024-10-29 10:10 | PCM.OPRPT ---
Procedures Cardiovascular CF Procedures 33xxx-39xxx: [id number] Insert tunneled cv cath Multi Select Codes Respiratory/Cardiovascular Resp/Cardiovascular CPT Codes: 40430 Insert tunneled cv cath Radiology Radiology: [id number] US GUIDE VASCULAR ACCESS and 53051-96 FLUOROGUIDE FOR VEIN DEVICE Operative Report (Standard) Operative Information Date of Procedure: 10/29/24 Pre-Operative Diagnosis: Acute renal failure Post-Operative Diagnosis: Same Surgery/Procedure Performed: Right IJ tunneled dialysis catheter field artillery officer: No Type of Anesthesia: Local and MAC RN Documented Start/Stop Times: Operation Date: 10/29/24 08:45 Case Time Into Pre-Op 10/29/24 07:47 Out of Pre-Op 10/29/24 08:57 Anesthesia Start 10/29/24 09:00 Into Room 10/29/24 09:00 Procedure Start 10/29/24 09:29 Procedure End 10/29/24 09:58 Anesthesia End 10/29/24 10:01 Out of Room 10/29/24 10:01 Into Recovery 10/29/24 10:02 Procedure Start Time: 09:29 Procedure Stop Time: 09:59 Select all DRAINS/GRAFTS/IMPLANTS that apply: Implanted device Implanted device details: Covidien palindrome chronic dual-lumen catheter. 14.5 Ethiopian x 23 cm Special Medications: IV Zosyn Estimated Blood Loss: 10 mL Specimen collected: No Description of surgery: The patient is a 73-year-old male with multiple medical problems who recently presented to the [facility] emergency department after being found down for prolonged period of time. He was found to have rhabdomyolysis which resulted in acute renal insufficiency. He was seen by nephrology and hemodialysis was recommended. At that time, a temporary dialysis catheter was placed. His kidney seemed to improve somewhat although it was later recommended that he would need more prolonged dialysis and so a tunneled dialysis catheter was requested. Once this was able to be scheduled, patient was then found to have an elevated white blood cell count which postponed placement of the tunneled dialysis catheter until today. His white blood cell count was trending downward. We discussed the details of the planned procedure and he wished to proceed. The risks and benefits of the procedure were also discussed. Patient was brought to the operating room today following informed consent. He was already being given IV Zosyn on the floor scheduled. He was placed supine on the operative table with his head turned to the left side. An axillary roll was placed behind the shoulders. The right side of the neck was prepped and draped in the usual sterile manner. Ultrasound was used to identify the right internal jugular vein. The overlying tissue was then injected with local anesthetic. The right internal jugular vein was cannulated on the first pass. The blood return was a dark red, nonpulsatile, venous appearing blood return. The guidewire was then threaded through the aperture and the needle. The needle was then extracted. C-arm was brought into confirm appropriate position of the wire. Next, local anesthetic was injected around the entry point of the guidewire. About a 2 cm skin incision was made using a #15 blade. The subcutaneous tissues were then dissected using a curved hemostat. Dilators were then serially inserted over the guidewire. Finally the sheath and dilator were then threaded over the guidewire. The guidewire was then removed. The sheath and dilator were left in place. The insertion incision was marked out on the chest. Local anesthetic was injected. #15 blade was then used to make a skin incision.. Curved hemostat was then used to make a subcutaneous tract. The tunneler was then attached to the distal end of the catheter. This was tunneled through the chest incision and up and out through the neck incision. The dilator was then removed. The free end of the tubing was then threaded down the aperture and the sheath. The sheath was extracted while the tubing was advanced. The tubing laid nicely once the sheath was extracted. The 2 ports were tested using injectable saline. They latrice and flushed very easily. About 2 mL of heparin was injected into each of the ports. The line was then sutured to the skin using nylon suture. 4-0 Vicryl was then used to close the skin incision. Skin glue was applied as dressing to the neck incision. A small OpSite was also placed over the neck incision. A sterile dressing was applied to the catheter insertion point. The patient was then awakened from anesthesia and taken to recovery in good condition. C arm was utilized throughout the course of the operation to confirm appropriate positioning of the catheter. A chest x-ray and recovery will also be obtained. Surgical Findings: See operative note Complications Complications: No Admit VTE Documentation VTE Present on Admission: No VTE Mechan Device Prophylaxis: SCD's VTE Pharm Prophylaxis ordered?: Yes
[2024-10-29] MEDS: PureFlow B 2K Dialysis Soln 1 BAG 6 BAG PF (11:18)
[2024-10-29] MEDS: 0.9% Normal Saline 1,000 ML IV.SOLN. 1000 ML OPERA.SITE (11:18)
[2024-10-29] MEDS: 0.9% Saline Lock 10 ML Syringe IV (11:20)
--- NOTE | 2024-10-29 11:30 | PCM.RX.CS ---
Consult Antibiotic Management Pharmacy has been consulted to manage selected antibiotic: Vancomycin Type of Intervention Type of Consult: Follow-up Labs Labs: Sodium 143 mmol/L (133-145) 10/29/24 04:15 Potassium 4.0 mmol/L (3.3-5.1) 10/29/24 04:15 Chloride 107 mmol/L (98-108) 10/29/24 04:15 Carbon Dioxide 19.4 mmol/L (21.0-32.0) L 10/29/24 04:15 Anion Gap 16 (5-15) H 10/29/24 04:15 BUN 57 mg/dL (4-19) H 10/29/24 04:15 Creatinine 7.99 mg/dL (0.70-1.20) H* 10/29/24 04:15 Est GFR (MDRD) Non-Af 7 (>60) L 10/29/24 04:15 BUN/Creatinine Ratio 7.1 RATIO (10-20) L 10/29/24 04:15 Glucose 143 mg/dL (70-99) H 10/29/24 04:15 Microbiology Microbiology: Microbiology 10/26/24 08:05 Urine Catheter - [place] Urine Culture - Final Culture exhibits no growth. 10/25/24 10:03 Blood Culture (Wb) - Left Wrist Blood Culture - Preliminary No growth in 48 hours. 10/25/24 10:00 Blood Culture (Wb) - Left Hand Blood Culture - Preliminary No growth in 48 hours. 10/17/24 18:30 Blood Culture (Wb) - Anticubital Right Blood Culture - Final No growth in 5 days. 10/17/24 18:34 Blood Culture (Wb) - Anticubital Left Blood Culture - Final No growth in 5 days. 10/21/24 09:23 Stool Enteric Bacteriology - Final 10/21/24 09:23 Stool Clostridioides difficile (PCR) - Final 10/18/24 11:58 Urine Catheter - [place] Urine Culture - Final Culture exhibits no growth. 10/19/24 10:15 Urine Catheter - Catheter Legionella Antigen - Final 10/19/24 10:15 Urine Catheter - Catheter Streptococcus pneumoniae Antigen (M - Final 10/19/24 17:55 Mucosa - Nasopharyngeal Respiratory Panel (PCR) - Final 10/19/24 18:11 Mucosa - Nose Coronavirus COVID-19 PCR - Final Goal Trough Goal Trough: 15-20 mcg/mL Pharmacy Plan for Drug Dosing Pharmacy Plan for Drug Dosing: DAILY ASSESSMENT Current Vancomycin Dose: dosing per HD treatment schedule Number of Doses Received: 1 (2g IV x1 10/26 @1146) Current Renal Function: Patient HD dependent- HD schedule is M/W/F per Dialysis nurse Renal Function Trend: n/a Lab/Micro: cultures showing NGTD Any Change in Vanc Plan: Patient had dialysis catheter placement completed today. Discussed case with Tl compound specialist to formulate a dosing plan. patient is getting HD today, so patient will get vancomycin 750mg IV x1 post-HD treatment. The patient will be on a HD schedule of M/W/ with next planned HD 10/30/24 per nursing. Will order a random level tomorrow morning pre-HD to determine next dose. Will continue to dose per pre-HD levels. Pending Level: *RANDOM* 10/30/24 @0600 Pharmacy Service will continue to monitor and adjust dosing as required.
--- NOTE | 2024-10-29 12:00 | CASEMGMT ---
Addendum entered by Shilpi Aguiar 10/29/24 14:18: Patient has order for discharge. Patient discharging to [facility] for skilled level of care. GIOVANNI HUBER received call from sister Renate and updated regarding discharge. GIOVANNI HUBER confirmed with sister Renate that patient does not have a history of developemental delay. Renate had no further questions. GIOVANNI HUBER completed 7000. Discharge information provided to discharge director traffic and planning to complete discharge, setup transport, and to notify both Renate and Jonathon of transport time. Original Note: GIOVANNI HUBER updated by HD nurse that tunnelled cath is working well and can discharge per HD standpoint. GIOVANNI HUBER updated hospitalist, discharge planned for today. GIOVANNI HUBER called [facility] to update regarding discharge today and planned start of care for tomorrow at [facility]. GIOVANNI HUBER in to patient's room to update of discharge to [facility] today and planned start of care for outpatient HD tomorrow, GUSTAVO Holt at bedside. Patient and Jonathon had no further questions or concerns. GIOVANNI HUBER updated Discharge Brand Manager to update [facility].
--- NOTE | 2024-10-29 12:49 | PCM.PN.REN ---
Subjective Subjective no new events s/p TDC placement Objective Data Objective Data Vital Signs: Vital Signs Temp Pulse Resp BP Pulse Ox O2 Del Method O2 Flow Rate 98.1 F 90 17 142/72 H 100 Nasal Cannula 3 10/29/24 11:10 10/29/24 12:39 10/29/24 12:39 10/29/24 12:39 10/29/24 12:09 10/29/24 12:39 10/29/24 12:39 Oxygen Flow Rate (L/min) 3 Oxygen Delivery Method Nasal Cannula Weight: 88.4 kg Body Mass Index (BMI) 27.8 Intake & Output: Intake and Output for Last 24 Hours 10/27/24 10/28/24 10/29/24 23:59 23:59 23:59 Intake Total 1770.00 / 1870.00 600 / 816.48 266.48 / 266.48 Output Total 1200 / 1550 1550 / 2150 1551 / 1551 Balance 570.00 / 320.00 -950 / -1333.52 -1284.52 / -1284.52 Lab / Micro Data 10/29/24 04:15 10/29/24 04:15 Labs: Laboratory Results - last 24 hr 10/28/24 16:20: POC Glucose 191 H 10/28/24 21:47: POC Glucose 150 H 10/29/24 04:15: WBC 13.7 H, RBC 2.77 L, Hgb 8.5 L, Hct 25.3 L, MCV 91.3, MCH 30.7, MCHC 33.6, RDW Std Deviation 46.7 H, RDW Coeff of Sara 14.1, Plt Count 438, MPV 11.3, Immature Gran % (Auto) 1.200 H, Neut % (Auto) 79.7 H, Lymph % (Auto) 8.7 L, [place] % (Auto) 6.1, Eos % (Auto) 3.5, Baso % (Auto) 0.8, Absolute Neuts (auto) 10.9 H, Absolute Lymphs (auto) 1.19, Nucleated RBC % 0, APTT 28.4, Sodium 143, Potassium 4.0, Chloride 107, Carbon Dioxide 19.4 L, Anion Gap 16 H, BUN 57 H, Creatinine 7.99 H*, Estim Creat Clear Calc 9.49 L*, Est GFR (MDRD) Non-Af 7 L, BUN/Creatinine Ratio 7.1 L, Glucose 143 H, Calcium 8.7 10/29/24 05:59: POC Glucose 130 H 10/29/24 11:05: POC Glucose 121 H Micro: Microbiology 10/26/24 08:05 Urine Catheter - Taylor Urine Culture - Final Culture exhibits no growth. 10/25/24 10:03 Blood Culture (Wb) - Left Wrist Blood Culture - Preliminary No growth in 48 hours. 10/25/24 10:00 Blood Culture (Wb) - Left Hand Blood Culture - Preliminary No growth in 48 hours. 10/17/24 18:30 Blood Culture (Wb) - Anticubital Right Blood Culture - Final No growth in 5 days. 10/17/24 18:34 Blood Culture (Wb) - Anticubital Left Blood Culture - Final No growth in 5 days. 10/21/24 09:23 Stool Enteric Bacteriology - Final 10/21/24 09:23 Stool Clostridioides difficile (PCR) - Final 10/18/24 11:58 Urine Catheter - Taylor Urine Culture - Final Culture exhibits no growth. 10/19/24 10:15 Urine Catheter - Catheter Legionella Antigen - Final 10/19/24 10:15 Urine Catheter - Catheter Streptococcus pneumoniae Antigen (M - Final 10/19/24 17:55 Mucosa - Nasopharyngeal Respiratory Panel (PCR) - Final 10/19/24 18:11 Mucosa - Nose Coronavirus COVID-19 PCR - Final Radiography Diagnostic Testing: Radiology Impression Chest X-Ray 10/29/24 10:06 IMPRESSION: The tip of the right-sided double-lumen catheter is in the right atrium. Mild bibasilar atelectasis. Reading Location: [facility]-IR-1 Physical Exam Narrative Alert and oriented no obvious distress s1s2 no murmurs lungs clear abdomen soft 2+ lower extremity pitting edema taylor + Assessment & Plan Assessment/Plan (1) CHRISTY (acute kidney injury): PLAN: Assessment/Plan: Patient is a 73-year-old male with past history of type 2 diabetes mellitus, hypertension, HFpEF, stroke, Parkinson's disease, and DVT. Patient presented to hospital on 10/17/2024 after falling at home. Patient is admitted to the hospital for treatment of acute hypoxic respiratory failure which was attributed to pneumonia and fluid overload. Patient was also found to have [place]habdom[place] [address] [place]/L on 10/18/2024. Acute kidney injury on chronic kidney disease stage G3a. Baseline serum creatinine appears to be around 1.46 mg/dL (July 2023). CHRISTY is likely due to ischemic/nephrotoxic ATN. Admission creatinine was 2.4, CPK level was 18,000. CPK levels have trended down however he had progressive renal failure. Serum creatinine peaked at 9.55 on 10/22. We also considered alternative etiologies for acute kidney injury, so serologies were sent. So far, serologies are all negative. Patient was started on dialysis on 10/22/2024 HD today. see orders
--- NOTE | 2024-10-29 13:25 | TREXTCAR_ITS ---
Diet Diet Order/Speech Therapy: INPATIENT Hospital Diet / Speech Therapy Order(s) 10/29/24 00:01 NPO [Diet: Nothing Per Oral] Dietary Modifications:: Sodium Restricted Potassium Restricted Speech Therapy Comments: Direct supervision, ORAL CARE before/after meal, sips 1 at a time DC O2, CPAP, BIPAP needs Home O2 Discharge instructions: Yes Type of respiratory needs?: Oxygen Oxygen frequency: Continuous Continuous oxygen liters per minute: 3 Wound(s) Nose: Wound Type: Abrasion Right Clavicle: Wound Type: Temp dialysis cath removal site RT CHEST: Wound Type: Surgical Incision RT BASE OF NECK: Wound Type: Surgical Incision Therapies Weight Bearing: Full weight bearing Physical Therapy: Eval and Treat Occupational Therapy: Eval and Treat Problem/Diagnosis (1) High anion gap metabolic acidosis: Status: Acute Code(s): E87.29 - Other acidosis (2) Urethral stricture: Status: Acute Code(s): N35.919 - Unspecified urethral stricture, male, unspecified site (3) Urinary retention: Status: Acute Code(s): R33.9 - Retention of urine, unspecified (4) Fall: Status: Acute Code(s): W19.XXXA - Unspecified fall, initial encounter (5) Rhabdomyolysis: Status: Acute Code(s): M62.82 - Rhabdomyolysis Plan Acute hypoxic respiratory * RULED OUT Pneumonia * pneumococcal v aspiration. With associated pleural effusion. * received pip/tazo from 10/17-. Starting on 10/26 has been on pip/tazo and vancomycin CHRISTY * had dialysis on 10/22 and . * suspect due to ischemic ATN from being down for extended period of time and rhabdomyolysis * non-oliguric, though creatinine trending up. * gtunnel dialysis catheter tentatively for 10/29. Dialysis today. Then outpatie nt dialysis. Rhabdomyolysis: * resolved. * traumatic, 2/2 to being down for extended period. Hematuria due to urethral stricture * Had urinary retention and urology had to be consulted to place a Larkin as he could not be placed in the ED. Having some mild hematuria but is clearing up. Likely traumatic as a result of passing the Larkin. * To leave Larkin in situ on discharge and to follow-up with urology on outpatient basis. Chronic medical conditions: * Type 2 diabetes mellitus: A1c is 8.1. On insulin sliding scale. Accuhecks ACHS. Usually on metformin at home which is currently on hold. * History of DVT: Has IVC filter in situ. on heparin drip. 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 Has resultant chronic disability from this. Lives alone currently. Family looking at getting him into assisted living. On aspirin. PT OT on board. * Benign essential hypertension: On metoprolol. Lisinopril held due to CHRISTY on CKD * Hyperlipidemia: On statin * Heart failure with reduced ejection fraction: Not in exacerbation but is fluid overloaded due to CHRISTY. Dialysis helping with fluid removal * Parkinson's disease with recent fall: PT OT on board. On levodopa carbidopa. DVT prophylaxis: on heparin drip. Will hold tonight at midnight in anticipation of limited dialysis catheter insertion depending on wbc Disposition: to [facility]. Allergies/Procedures Done in Hospital Allergies No Known Allergies Allergy (Verified 10/17/24 22:17) Procedures: Dialysis Type of Care/Length of Stay Estimated LOS: Convalescent Care Less Than 30 days Type of Care Needed: Skilled Rehab Potential: Fair Prognosis: Fair Additional Orders/Day of Discharge Day of Discharge: 10/29/24 Dietary and Speech Recommendations Dietitian Recommendations/Changes: Adjust to consistent carbohydrate diet with sodium restriction per SAMPLE COORDINATOR recommendations. Will monitor weight, labs, and make adjustments to pt's diet as needed. Discharge Plan Admission Admit Date/Time: 10/17/24 20:58 Primary Reason for Your Visit: pneumonia. sepsis. CHRISTY. Attending Provider: Javon Baldwin Primary Care Provider: Tracie Abreu Consulting Providers: Jose R Rg; Kenrick Ng; Rodney Chavez; Nathalia Garcia; Juan Palacios; Rosmery Lake Instructions Additional Instructions / Restrictions: Continue with hemodialysis per nephrology's routine. Discharge Orders/Prescriptions Prescriptions: New tamsulosin 0.4 mg Capsule 0.4 mg PO DAILY@1730 Qty: 0 0RF insulin lispro [Humalog KwikPen Insulin] 100 unit/mL Insulin Pen See Protocol subcut ACHS Qty: 0 0RF Protocol: 1. Sliding Scale Insulin Low Dosing Condition: 150-224 mg/dl = 1 unit Condition: 225-299 mg/dl = 2 units Condition: 300-374 mg/dl = 3 units Condition: 375-449 mg/dl = 4 units Condition: Greater than 449 call physician Protocol Text: Suggested for: - Patients on Total Daily Insulin Dose of 15-27 units - Thin, elderly, renal patients LOW DOSING ALGORITHM Continued loratadine [Allergy Relief (loratadine)] 10 mg tablet 10 mg PO DAILY sennosides [Senna Lax] 8.6 mg tablet 8.6 mg PO QHS aspirin 81 mg tablet,chewable 81 mg PO QDAY ipratropium bromide 21 mcg (0.03 %) spray,non-aerosol 2 spray intranasal TID PRN (Reason: nasal congestion) Rx Instructions: 2 sprays each nostril twice a day as need for allergies. Eliquis 5 mg tablet 5 mg PO BID carbidopa-levodopa 25-100 mg tablet 2 tab PO TID Rx Instructions: 2 tabs pantoprazole 20 mg Tablet,Delayed Release (Dr/Ec) 20 mg PO DAILY multivitamin Capsule 1 cap PO DAILY atorvastatin 40 mg Tablet 40 mg PO QHS Qty: 30 0RF metoprolol succinate 25 mg Tablet Extended Release 24 Hr 25 mg PO DAILY Qty: 30 0RF Discontinued metformin 500 mg Tablet 500 mg PO DAILY lisinopril 2.5 mg Tablet 2.5 mg PO DAILY Qty: 30 0RF Referrals / Follow Up: Tracie Abreu MD [Primary Care Provider, Family Practice] - Within 2 Weeks Disposition Disposition (needs filled in before D/C Order can be placed): Intermediate Facility (4) Fall Qualifiers: Encounter type: initial encounter Qualified Code(s): W19.XXXA - Unspecified fall, initial encounter (5) Rhabdomyolysis Qualifiers: Rhabdomyolysis type: non-traumatic Qualified Code(s): M62.82 - Rhabdomyolysis
--- NOTE | 2024-10-29 13:33 | PCM.DC.SUM ---
Providers Date of Admission: 10/17/24 Primary Care Physician: Tracie Abreu MD Consultations 10/17/24 21:42 Consult: Urology Routine Consulting Provider: Jose R Rg Reason for Consult: Hematuria with Urinary Retention. EMERGENT Consult: No Notified: Yes Date Notified: 10/17/24 Time Notified: 21:05 Method of Notification: ED Physician Initiated 10/19/24 07:46 Consult: Nephrology Routine Consulting Provider: Rodney Chavez Reason for Consult: CHRISTY EMERGENT Consult: No Notified: Yes Date Notified: 10/19/24 Time Notified: 07:52 Method of Notification: Answering Service 10/21/24 08:10 Consult: General Surgery Routine Consulting Provider: Juan Palacios Reason for Consult: need for temporary dialysis catheter EMERGENT Consult: No Notified: Yes Date Notified: 10/21/24 Time Notified: 08:10 Method of Notification: Text Reason For Visit: SIRS, CHRISTY, RHABOMYOLYSIS AND HEMATURIA Diagnosis Discharge Diagnosis (1) High anion gap metabolic acidosis: Status: Acute Code(s): E87.29 - Other acidosis (2) Urethral stricture: Status: Acute Code(s): N35.919 - Unspecified urethral stricture, male, unspecified site (3) Urinary retention: Status: Acute Code(s): R33.9 - Retention of urine, unspecified (4) Fall: Status: Acute Code(s): W19.XXXA - Unspecified fall, initial encounter Qualifiers: Encounter type: initial encounter Qualified Code(s): W19.XXXA - Unspecified fall, initial encounter (5) Rhabdomyolysis: Status: Acute Code(s): M62.82 - Rhabdomyolysis Qualifiers: Rhabdomyolysis type: non-traumatic Qualified Code(s): M62.82 - Rhabdomyolysis Plan Sepsis Present on admission Secondary to pneumonia acute hypoxic respiratory RULED OUT Pneumonia pneumococcal v aspiration. With associated pleural effusion. received pip/tazo from 10/17-. Starting on 10/26 has been on pip/tazo and vancomycin. Given infectious workup has been negative, will discontinue antibiotics. CHRISTY had dialysis on 10/22 and . suspect due to ischemic ATN from being down for extended period of time and rhabdomyolysis non-oliguric, though creatinine trending up. tunnelled dialysis catheter placed 10/29. Dialysis today. Then outpatient dialysis. Rhabdomyolysis: resolved. traumatic, 2/ to being down for extended period. Hematuria due to urethral stricture Had urinary retention and urology had to be consulted to place a Larkin as he could not be placed in the ED. Having some mild hematuria but is clearing up. Likely traumatic as a result of passing the Larkin. To leave Larkin in situ on discharge and to follow-up with urology on outpatient basis. Chronic medical conditions: Type 2 diabetes mellitus: A1c is 8.1. On insulin sliding scale. Accuhecks ACHS. Usually on metformin at home which is currently on hold. History of DVT: Has IVC filter in situ. on heparin drip. 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 Has resultant chronic disability from this. Lives alone currently. Family looking at getting him into assisted living. On aspirin. PT OT on board. Benign essential hypertension: On metoprolol. Lisinopril held due to CHRISTY on CKD Hyperlipidemia: On statin Heart failure with reduced ejection fraction: Not in exacerbation but is fluid overloaded due to CHRISTY. Dialysis helping with fluid removal Parkinson's disease with recent fall: PT OT on board. On levodopa carbidopa. DVT prophylaxis: on heparin drip. Will hold tonight at midnight in anticipation of limited dialysis catheter insertion depending on wbc Disposition: to [facility]. Medications at Discharge Home Medications multivitamin 1 cap PO DAILY supplement 12/26/21 atorvastatin 40 mg tablet 40 mg PO QHS #30 tabs 12/05/22 metoprolol succinate 25 mg tablet,extended release 24 hr 25 mg PO DAILY #30 tabs 12/05/22 loratadine 10 mg tablet (Allergy Relief (loratadine)) 10 mg PO DAILY 01/20/23 sennosides 8.6 mg tablet (Senna Lax) 8.6 mg PO QHS 01/20/23 pantoprazole 20 mg tablet,delayed release 20 mg PO DAILY 05/23/23 apixaban 5 mg tablet (Eliquis) 5 mg PO BID 11/09/23 aspirin 81 mg chewable tablet 81 mg PO QDAY 11/09/23 carbidopa 25 mg-levodopa 100 mg tablet 2 tab PO TID 11/09/23 ipratropium bromide 21 mcg (0.03 %) nasal spray 2 spray intranasal TID PRN nasal congestion 11/09/23 insulin lispro 100 unit/mL subcutaneous pen (Humalog KwikPen (U-100) Insulin) See Protocol subcut ACHS #0 mL 10/29/24 tamsulosin 0.4 mg capsule 0.4 mg PO DAILY@1730 #0 caps 10/29/24 Hospital Course Operations - (Tunneled dialysis catheter) Procedures 2-D Echocardiogram, Central line placement and Dialysis Summary of Care Provided Hospital Course: Greater than 30-minute spent on discharge This is a 73-year-old male with history of Parkinson disease found down at home. Presented with sepsis, rhabdomyolysis, CHRISTY and pneumonia. Patient was started on broad-spectrum antibiotics but his kidney function got worse. Patient was nonoliguric. Patient had a temporary dialysis catheter placed and did have hemodialysis and the plan is for her to have a tunneled dialysis catheter but that is held given his leukocytosis and concern for underlying infection. Send patient was started back up on antibiotics with pip-tazo and vancomycin. Infectious workup was negative the patient underwent tunneled dialysis catheter on the and has been reinitiated on dialysis will continue with hemodialysis as outpatient. Is CHRISTY may have been due to ischemic ATN but also his rhabdomyolysis. He has been having good urine output though his kidney function with his creatinine continues to climb upwards. Patient was having rhabdomyolysis when he presented and so his statin was held that will be resumed upon discharge. Weight / BMI Weight Weight: 88.4 kg Body Mass Index (BMI) 27.8 ABG / Lab / Microbiology Data 10/29/24 04:15 10/29/24 04:15 Laboratory: Laboratory Results - last 24 hr 10/28/24 16:20: POC Glucose 191 H 10/28/24 21:47: POC Glucose 150 H 10/29/24 04:15: WBC 13.7 H, RBC 2.77 L, Hgb 8.5 L, Hct 25.3 L, MCV 91.3, MCH 30.7, MCHC 33.6, RDW Std Deviation 46.7 H, RDW Coeff of Sara 14.1, Plt Count 438, MPV 11.3, Immature Gran % (Auto) 1.200 H, Neut % (Auto) 79.7 H, Lymph % (Auto) 8.7 L, [place] % (Auto) 6.1, Eos % (Auto) 3.5, Baso % (Auto) 0.8, Absolute Neuts (auto) 10.9 H, Absolute Lymphs (auto) 1.19, Nucleated RBC % 0, APTT 28.4, Sodium 143, Potassium 4.0, Chloride 107, Carbon Dioxide 19.4 L, Anion Gap 16 H, BUN 57 H, Creatinine 7.99 H*, Estim Creat Clear Calc 9.49 L*, Est GFR (MDRD) Non-Af 7 L, BUN/Creatinine Ratio 7.1 L, Glucose 143 H, Calcium 8.7 10/29/24 05:59: POC Glucose 130 H 10/29/24 11:05: POC Glucose 121 H Microbiology: Microbiology 10/26/24 08:05 Urine Catheter - [place]arkin Urine Culture - Final Culture exhibits no growth. 10/25/24 10:03 Blood Culture (Wb) - Left Wrist Blood Culture - Preliminary No growth in 48 hours. 10/25/24 10:00 Blood Culture (Wb) - Left Hand Blood Culture - Preliminary No growth in 48 hours. 10/17/24 18:30 Blood Culture (Wb) - Anticubital Right Blood Culture - Final No growth in 5 days. 10/17/24 18:34 Blood Culture (Wb) - Anticubital Left Blood Culture - Final No growth in 5 days. 10/21/24 09:23 Stool Enteric Bacteriology - Final 10/21/24 09:23 Stool Clostridioides difficile (PCR) - Final 10/18/24 11:58 Urine Catheter - [place]ark[place] Urine Culture - Final Culture exhibits no growth. 10/19/24 10:15 Urine Catheter - Catheter Legionella Antigen - Final 10/19/24 10:15 Urine Catheter - Catheter Streptococcus pneumoniae Antigen (M - Final 10/19/24 17:55 Mucosa - Nasopharyngeal Respiratory Panel (PCR) - Final 10/19/24 18:11 Mucosa - Nose Coronavirus COVID-19 PCR - Final Radiography Diagnostic Testing: Radiology Impression Chest X-Ray 10/29/24 10:06 IMPRESSION: The tip of the right-sided double-lumen catheter is in the right atrium. Mild bibasilar atelectasis. Reading Location: [facility]--1 D/C Instructions DC O2, CPAP, BIPAP Needs Home O2 Discharge instructions: Yes Type of respiratory needs?: Oxygen Oxygen frequency: Continuous Continuous oxygen liters per minute: 3 DC home with Oxygen: Yes Home O2 MD Review: I have reviewed the oxygen testing, and the patient qualifies for home oxygen equipment and portability. The patient is mobile in the home and the community. Meaningful Use Info Meaningful Use Meaningful Use Diagnoses (Choose all that apply): None applicable Discharge Plan Admission Admit Date/Time: 10/17/24 20:58 Primary Reason for Your Visit: pneumonia. sepsis. CHRISTY. Attending Provider: Javon Baldwin Primary Care Provider: Tracie Abreu Consulting Providers: Jose R Rg; Kenrick Ng; Rodney Chavez; Nathalia Garcia; Juan Palacios; Rosmery Lake Instructions Additional Instructions / Restrictions: Continue with hemodialysis per nephrology's routine. Discharge Orders/Prescriptions Prescriptions: New tamsulosin 0.4 mg Capsule 0.4 mg PO DAILY@1730 Qty: 0 0RF insulin lispro [Humalog KwikPen Insulin] 100 unit/mL Insulin Pen See Protocol subcut ACHS Qty: 0 0RF Protocol: 1. Sliding Scale Insulin Low Dosing Condition: 150-224 mg/dl = 1 unit Condition: 225-299 mg/dl = 2 units Condition: 300-374 mg/dl = 3 units Condition: 375-449 mg/dl = 4 units Condition: Greater than 449 call physician Protocol Text: Suggested for: - Patients on Total Daily Insulin Dose of 15-27 units - Thin, elderly, renal patients LOW DOSING ALGORITHM Continued loratadine [Allergy Relief (loratadine)] 10 mg tablet 10 mg PO DAILY sennosides [Senna Lax] 8.6 mg tablet 8.6 mg PO QHS aspirin 81 mg tablet,chewable 81 mg PO QDAY ipratropium bromide 21 mcg (0.03 %) spray,non-aerosol 2 spray intranasal TID PRN (Reason: nasal congestion) Rx Instructions: 2 sprays each nostril twice a day as need for allergies. Eliquis 5 mg tablet 5 mg PO BID carbidopa-levodopa 25-100 mg tablet 2 tab PO TID Rx Instructions: 2 tabs pantoprazole 20 mg Tablet,Delayed Release (Dr/Ec) 20 mg PO DAILY multivitamin Capsule 1 cap PO DAILY atorvastatin 40 mg Tablet 40 mg PO QHS Qty: 30 0RF metoprolol succinate 25 mg Tablet Extended Release 24 Hr 25 mg PO DAILY Qty: 30 0RF Discontinued metformin 500 mg Tablet 500 mg PO DAILY lisinopril 2.5 mg Tablet 2.5 mg PO DAILY Qty: 30 0RF Referrals / Follow Up: Tracie Abreu MD [Primary Care Provider, [facility]] - Within 2 Weeks Disposition Disposition (needs filled in before D/C Order can be placed): Nursing Home Facility Charges/Coding Visit Charges Inpatient E&M: 51831 Disch Hosp >30min
--- NOTE | 2024-10-29 14:19 | PHA.DC.MR.R ---
Pharmacy [facility] Reconciliation Pharmacy Service has performed discharge medication reconciliation for this patient. The patient's discharge medication list was reviewed for discrepancies and discrepancies were resolved. Medications at Discharge Home Medications multivitamin 1 cap PO DAILY supplement 12/26/21 atorvastatin 40 mg tablet 40 mg PO QHS #30 tabs 12/05/22 metoprolol succinate 25 mg tablet,extended release 24 hr 25 mg PO DAILY #30 tabs 12/05/22 loratadine 10 mg tablet (Allergy Relief (loratadine)) 10 mg PO DAILY 01/20/23 sennosides 8.6 mg tablet (Senna Lax) 8.6 mg PO QHS 01/20/23 pantoprazole 20 mg tablet,delayed release 20 mg PO DAILY 05/23/23 apixaban 5 mg tablet (Eliquis) 5 mg PO BID 11/09/23 aspirin 81 mg chewable tablet 81 mg PO QDAY 11/09/23 carbidopa 25 mg-levodopa 100 mg tablet 2 tab PO TID 11/09/23 ipratropium bromide 21 mcg (0.03 %) nasal spray 2 spray intranasal TID PRN nasal congestion 11/09/23 insulin lispro 100 unit/mL subcutaneous pen (Humalog KwikPen (U-100) Insulin) See Protocol subcut ACHS #0 mL 10/29/24 tamsulosin 0.4 mg capsule 0.4 mg PO DAILY@1730 #0 caps 10/29/24
--- NOTE | 2024-10-29 14:42 | NURSING ---
Called report to W, all questions answered at this time
--- NOTE | 2024-10-29 14:50 | CASEMGMT ---
Discharge Planning Discharge orders, signed med list, and transport time sent to [facility]. Physicians will transport pt by at 5:30p. Nursing, SW, pt, pts sister (Renate), and pts friend (Jonathon) updated. Leighann Coles DC Planning Asst.
--- NOTE | 2024-10-29 15:04 | POSTOPAN2_ITS ---
Anesthesia Postop Eval I Sum Postop Eval Completion status Anesthesia document: Postop Eval 1 completed: Yes Anesthesia Postop Eval I Summary Anesthesia Postop Eval I Summary: Anesthesia Postop Eval I: Assessment Summary Airway patent Yes 10/29/24 10:07 VP [email or web address] Spontaneous unlabored Yes 10/29/24 10:07 VP [email or web address] respirations Mental status nausea No 10/29/24 10:07 VP [email or web address] Vomiting No 10/29/24 10:07 VP [email or web address] Anesthesia Postop Eval I: Fluid Summary Crystalloid volume administer 200 10/29/24 10:07 VP [email or web address] (ml) Colloids volume administered ( ml) Blood Product volume administered (ml) Total IV fluid infused 200 10/29/24 10:07 VP [email or web address] Anesthesia Postop Eval I: Summary Notes Anesthesia Complication No 10/29/24 10:07 VP [email or web address] Anesthesia Complication Comment: Post-operative progress note Anesthesia: Postop Eval II Evaluation Mental status: Awake and Calm Pain Level: 0 nausea: No Vomiting: No Complications Anesthesia Complication: No
--- NOTE | 2024-10-29 15:04 | PCM.POSTANE2 ---
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 Spontaneous unlabored Yes 10/29/24 10:07 [email or web address] respirations Mental status nausea No 10/29/24 10:07 [email or web address] Vomiting No 10/29/24 10:07 [email or web address] Anesthesia Postop Eval I: Fluid Summary Crystalloid volume administer 200 10/29/24 10:07 [email or web address] (ml) Colloids volume administered ( ml) Blood Product volume administered (ml) Total IV fluid infused 200 10/29/24 10:07 [email or web address] Anesthesia Postop Eval I: Summary Notes Anesthesia Complication No 10/29/24 10:07 [email or web address] Anesthesia Complication Comment: Post-operative progress note Anesthesia: Postop Eval II Evaluation Mental status: Awake and Calm Pain Level: 0 nausea: No Vomiting: No Complications Anesthesia Complication: No
== END 2024-10-29 17:04 | disposition skilled nursing facility (03) | DRG 871 ==
LOC: ED 21:09 → PCU 21:26
PROVIDERS: Anesthesiology; Internal Medicine; Internal Medicine Nephrology; Student in an Organized Health Care Education/Training Program; Surgery; Admitting Provider Internal Medicine; Emergency Provider Emergency Medicine; PCP Family Medicine
DX: A41.9 Sepsis, unspecified organism (principal); N17.0 Acute kidney failure with tubular necrosis; J18.9 Pneumonia, unspecified organism; M62.82 Rhabdomyolysis; J90 Pleural effusion, not elsewhere classified; E87.3 Alkalosis; E87.29 Other acidosis; I13.0 Hypertensive heart and chronic kidney disease with heart failure and stage 1 through stage 4 chronic kidney disease, or unspecified chronic kidney disease; I42.9 Cardiomyopathy, unspecified; E87.4 Mixed disorder of acid-base balance; N99.820 Postprocedural hemorrhage of a genitourinary system organ or structure following a genitourinary system procedure; I50.42 Chronic combined systolic (congestive) and diastolic (congestive) heart failure; E11.22 Type 2 diabetes mellitus with diabetic chronic kidney disease; D64.9 Anemia, unspecified; G20.A1 Parkinson's disease without dyskinesia, without mention of fluctuations; N18.32 Chronic kidney disease, stage 3b; I69.322 Dysarthria following cerebral infarction; E11.65 Type 2 diabetes mellitus with hyperglycemia; K21.9 Gastro-esophageal reflux disease without esophagitis; G24.9 Dystonia, unspecified; E78.5 Hyperlipidemia, unspecified; S01.21XA Laceration without foreign body of nose, initial encounter; J30.2 Other seasonal allergic rhinitis; Z79.4 Long term (current) use of insulin; M19.90 Unspecified osteoarthritis, unspecified site; W19.XXXA Unspecified fall, initial encounter; Z86.718 Personal history of other venous thrombosis and embolism; Z79.01 Long term (current) use of anticoagulants; Z83.3 Family history of diabetes mellitus; R31.9 Hematuria, unspecified; R53.81 Other malaise; Z79.82 Long term (current) use of aspirin; Z79.899 Other long term (current) drug therapy; Z79.84 Long term (current) use of oral hypoglycemic drugs; R09.02 Hypoxemia; N35.919 Unspecified urethral stricture, male, unspecified site; R33.8 Other retention of urine; Y84.6 Urinary catheterization as the cause of abnormal reaction of the patient, or of later complication, without mention of misadventure at the time of the procedure; N20.0 Calculus of kidney
CPT/HCPCS: 36415; 36600; 70450; 71045; 71250; 74176; 74230; 76000; 76770; 80048; 80053; 80061; 81001; 82550; 82570; 82607; 82746; 82803; 82962; 83036; 83520; 83605; 83735; 83880; 84100; 84145; 84153; 84165; 84300; 84443; 84484; 84540; 85018; 85025; 85610; 85730; 86037; 86160; 86225; 87040; 87086; 87340; 87449; 87493; 87506; 87633; 87635; 87641; 90937; 92526; 92610; 92611; 93005; 93306; 94667; 94668; 94762; 97110; 97116; 97162; 97166; 97530; 97535; 99285; C1750; Q9957; A4216; C1752; C8929; G0103; G0257; J1938

== ENCOUNTER → 2024-10-31 | Outpatient (REF) | payer MEDICARE, OTHER, SELFPAY ==
[2024-10-31 09:34] LABS: Hematocrit 27.5 % (40-54); Hemoglobin 8.9 g/dL (13.0-16.5); Immature Granulocytes Count 0.090 X10^3/uL (0.0-0.0); Mean Corp Hgb Conc 32.4 g/dL (32-36); Mean Corpuscular Volume 94.5 fL (80-94); Mean Platelet Vol. 11.9 fl (6.2-12.0); NRBC Flagged by Analyzer 0 % (0-5); Platelet Count 391 K/mm3 (150-450); RBC Distribution Width CV 14.3 % (11.6-14.6); RBC Distribution Width SD 48.7 fl (35.1-43.9); Red Blood Count 2.91 M/mm3 (4.6-6.2); White Blood Count 13.2 K/mm3 (4.4-11.0)
[2024-10-31 09:52] LABS: AST(SGOT) 30 U/L (<=37); Alanine Aminotransfer ALT/SGPT 11 U/L (<=46); Albumin, Serum 2.2 g/dL (3.4-4.8); Alkaline Phosphatase 76 U/L (40-129); Anion Gap 24 (5-15); BUN 24 mg/dL (4-19); BUN/Creat Ratio 4.7 RATIO (10-20); Calcium,Total 8.2 mg/dL (7.6-11.0); Carbon Dioxide 11.4 mmol/L (21.0-32.0); Chloride 107 mmol/L (98-108); Globulin 2.6 g/dL (2.2-4.2); Glucose 122 mg/dL (70-99); Potassium 3.8 mmol/L (3.3-5.1)
== END ==
LOC: OLS.WHLTCC 05:30
PROVIDERS: PCP Family Medicine; Visit Provider Internal Medicine
DX: E11.22 Type 2 diabetes mellitus with diabetic chronic kidney disease (principal); N18.9 Chronic kidney disease, unspecified
CPT/HCPCS: 36415; 80053; 85025

== ENCOUNTER → 2024-12-25 05:00 | Outpatient (REF) | payer MEDICARE, OTHER, SELFPAY ==
--- OUTSIDE RECORDS SUMMARY | 2024-12-25 04:24 | XMS RPT_ITS | CCD ---
Author Organization [facility] Care Team Providers Care [place] Department Head Name Role Phone Unavailable Primary Care Provider Unavailabby Manley Jr., MD, William J Unavailable Edith Fraser MD Primary Care Provider [phone] Edith Fraser MD Primary Care Provider DO Madhavi Chaudhry Primary Care Provider Dr. Javon Vazquez Attending Provider MONTEZ Turner Referring Provider [phone] EDITH FRASER Primary Care Unavailable CLARENCE COLIN Attending Unavailable LAYNE MANLEY JR Referring Unavailable DO Madhavi Chaudhry Primary Care Provider Dr. Cristhian Carlos Emergency Provider Dr. Jerod Cavazos Admit Provider [phone] Jerod Cavazos Attending Provider Dr. Jerod Cavazos Other Provider [phone] Moriah Jones Attending Provider [phone] Unavailable Primary Care Provider UnavailDO Madhavi Brooke Primary Care Provider Dr. Cristhian Carlos Emergency Provider Dr. Jerod Cavazos Admit Provider [phone] Dr. Jerod Cavazos Attending Provider Dr. Jerod Cavazos Other Provider Dr. Moriah Jones Attending Provider [phone] Dr. Moriah Jones Referring Provider Neri, Dr. Connie Lawson Admit Provider Neri, Dr. Connie Lawson Attending Provider Neri, Dr. Connie Lawson Other Provider Edith Fraser MD Primary Care Provider CATHLEEN GOEL Attending Unavailable JONATHON, FALLON Referring Unavailable PENELOPE, EDITH Schulz Primary Care Unavailable CATHLEEN GOEL Attending Unavailable EDITH FRASER Primary Care Unavailable Edith Fraser MD Primary Care Provider Joel COTTON, Tracie Primary Care Provider Tracie Abreu MD Attending Provider Joel COTTON, Tracie Referring Provider FALLON NUÑEZ Attending Provider FALLON NUÑEZ Referring Provider Madhavi Chaudhry DO Referring Provider [facility] M[employer] MACHINE TENDER-Iain Rubio Attending Provider Elvis DOW, Dr. Conn Attending Provider Elvis DOW, Dr. Conn Referring Provider Edith Fraser MD Primary Care Provider Tracie Abreu MD Primary Care Provider [phone] MONA ROACH Attending Unavailable LAYNE MANLEY JR Referring Unavailable JOEL, TRACIE Primary Care Unavailable LAYNE MANLEY JR Attending Unavailable FALLON STEINER Referring Unavailable EDITH FRASER Primary Care Unavailable FALLON STEINER Attending Unavailable EDITH FRASER Primary Care Unavailable LAYNE MANLEY JR Attending Unavailable LAYNE MANLEY JR Referring Unavailable EDITH FRASER Primary Care Unavailable EDITH HART Attending Unavailable EDITH HART Referring Unavailable PENELOPE, EDITH Schulz Primary Care Unavailable MASCI, EDITH Amaya Referring Unavailable JOEL, FLOON Primary Care Unavailable MASCI, EDITH Amaya Attending Unavailable JOEL, CHALON Primary Care Unavailable MONA ROACH Attending Unavailable LAYNE MANLEY JR Referring Unavailable EDITH FRASER Primary Care Unavailable Tracie Abreu MD Primary Care Provider [phone] Dc COTTON, Dr. Yeung Emergency Provider de [facility], Dr. Choudhary Admit Provider Unavail able de [facility], Dr. Choudhary Attending Provider Carmenv ayana Abreu MD, [facility] Primary Care Physician Dc COTTON, Dr. Yeung Emergency Department Physician de [place] , Dr. Choudhary Admitting Physician Carmen vailable de [facility], Dr. Choudhary Nurse Practitioner Carmenv ayana Rg MD, Dr. Jose R Morgan Nurse Practitioner Kathy COTTON, Dr. Stevens Nurse Practitioner Jose LLOYD, Dr. Sloan Nurse Practitioner Philip COTTON, Dr. Juan Amaya Nurse Practitioner Denny LLOYD, Dr. Alejandro Attending Physician Jaya COTTON, Dr. Rosmery Hernandez Nurse Practitioner Jose LLOYD, Dr. Sloan Attending Physician Daniel COTTON, Dr. Ramirez Attending Physician Jaya COTTON, Dr. Rosmery Hernandez Attending Physician [phone] Philip COTTON, Dr. Juan Amaya Attending Physician Roxanna Rahman PA-C Attending Physician Sonny COTTON, Dr. Zhao Attending Physician Dr. Eliot Hand MD Attending Physician Denny LLOYD, Dr. Alejandro Nurse Practitioner Conrad Burnett MD Attending Physician Unavail able Jaya COTTON, Dr. Rosmery Hernandez Referring Provider Bonnie Ibarra Attending Physician Javon Vazquez Attending Unavailable Javon Vazquez Referring Unavailable Joel, Chalon Primary Care Unavailable Conrad Corey Attending Unavailabl e Joel, Chalon Primary Care Unavailable Joel, Chalon Primary Care Unavailable Conrad Corey Attending Unavailabl e Joel, Chalon Primary Care Unavailable Kenrick Ng Admitting Unavailable Nathalia Garcia Attending Unavailable Jose R Rg Consulting Unavailable Kenrick Ng Consulting Unavailable Nathalia Garcia Consulting Unavailable Joel, Chalon Primary Care Unavailable Joel, Chalon Referring Unavailable Joel, Chalon Attending Unavailable Joel, Chalon Primary Care Unavailable Conrad Corey Attending UnavailEliot Harrell Attending Unavailable Kathy, Jayaprakas Consulting Unavailable Wanek, Juan A Consulting Unavailable Koram, Rosmery Mary Consulting Unavailable Joel, Chalon Primary Care Unavailable Fabien Leal Attending Unavailable Fabien Leal Referring Unavailable Joel, Chalon Primary Care Unavailable Kenrick Ng Admitting Unavailable Javon Baldwin Attending Unavailable Jose R Rg Consulting Unavailable Kenrick Ng Consulting Unavailable Kathy, Rodney Consulting Unavailable Nathalia Garcia Consulting Unavailable Juan Palacios A Consulting Unavailable Koram, Rosmery Mary Consulting Unavailable Javon Baldwin Referring Unavailable Juan Palacios Attending Unavailable Javon Baldwin Consulting Unavailable Javon Baldwin Attending Unavailable Kenrick Ng Attending Unavailable Koram, Rosmery Mary Attending Unavailable WanekJuan Attending Unavailable Joel, Chalon Primary Care Unavailable Joel, Chalon Referring Unavailable Lauren MEXICAN [employer] MACHINE TENDER, Bonnie Attending Unavailable Joel, Chalon Primary Care Unavailable Cece Dennis Attending Unavailable Tickton [employer] MACHINE TENDER, Bonnie Attending Unavailable Joel, Chalon Primary Care Unavailable Joel, Chalon Primary Care Unavailable James Sanchez Attending Unavailable FALLON STEINER Attending Unavailable FALLON STEINER Referring Unavailable Joel, Chalon Primary Care Unavailable Joel, Chalon Primary Care Unavailable Oleghe Conrad KOVACS Attending UnavailRoxanna Arauz Attending Unavailable Joel, Chalon Primary Care Unavailable Madhavi Chaudhry Referring Unavailable Iain López NP Attending Unavailable Lauren MEXICAN FOOD MACHINE TENDERBonnie Attending Unavailable Joel, Chalon Primary Care Unavailable Koram, Rosmeyr Mary Referring Unavailable Joel, Chalon Primary Care Unavailable OleConrad Quezada Attending Unavailabl e Medications Current Medications Medication Drug Class(es) Dates Sig (Normalized) Sig (Original) alpha lipoic acid (1 source) Start: 08-20-2021 take 300 mg by mouth once daily alpha lipoic acid Active 300 MG SL/PO DAILY August 20, 2021 12:00am apixaban 5 mg oral tablet (20 sources) Factor Xa Inhibitor Start: 09-25-2023 End: 09-06-2024 aspirin 81 mg chewable tablet (20 sources) Platelet Aggregation Inhibitor, Nonsteroidal Anti-inflammatory Drug Start: 11-09-2023 Start: 06-15-2021 End: 11-09-2023 take 1 tablet by mouth once daily aspirin 81 mg tablet Discontinued 81 mg SL/PO DAILY June 15, 2021 12:00am November 09, 2023 1:42pm [facility] [employer] Start: 04-08-2021 End: 07-17-2023 take 1 tablet by mouth once daily aspirin 81 mg chewable tablet 1 tablet by ORAL/FEEDING TUBE route once daily. 0 04/08/2021 07/17/2023 Discontinued Start: 04-08-2021 take 1 tablet by norbert th once daily aspirin 81 mg chewable tablet 1 tablet by ORAL/FEEDING TUBE route once daily. 0 04/08/2021 Active Comment on above: 1 tablet by ORAL/FEE DING TUBE route once daily. atorvastatin 40 mg oral tabl et (20 sources) HMG-CoA Reductase Inhibitor Start: 06-10-2021 End: 12-05-2022 Start: 06-10-2021 End: 05-29-2022 take 1 tablet by mouth once daily at bedtime atorvastatin (LIPITOR) 40 mg tablet 1 TABLET BY ORAL/FEEDING TUBE ROUTE DAILY AT BEDTIME. 90 tablet 3 05/29/2022 Active Start: 04-07-2021 take 1 tablet by norbert th once daily at bedtime atorvastatin (LIPITOR) 40 mg tablet 1 tablet by ORAL/FEEDING TUBE route daily at bedtime. 0 04/07/2021 Active Comment on above: 1 tablet by ORAL/FEE DING TUBE route daily at bedtime. carbidopa 25 mg / levodopa 100 mg oral tablet (20 sources) Aromatic Amino Acid Decarboxylation Inhibitor, Aromatic Amino Acid Start: 11-09-2023 Start: 11-09-2023 End: 07-12-2024 Carbidopa-Levodopa 25-100 mg tablet Active 2 {tbl} PO THREE TIMES A DAY November 09, 2023 12:00am 2 tabs Start: 10-22-2023 End: 11-09-2023 Start: 10-22-2023 End: 11-09-2023 Carbidopa-Levodopa (Sinemet) 10-100 [...] TAB SL/PO DAILY June 15, 2021 12:00am 3 ml insulin lispro 100 unt/ml pen injector (20 sources) Insulin Analog Start: 10-29-2024 Start: 04-07-2021 End: 07-17-2023 inject 3 [IU] by subcutaneous injection at mealtime insulin lispro (HUMALOG KWIKPEN) 100 unit/mL Inject 3 Units subcutaneously w MEALS. 0 04/07/2021 07/17/2023 Discontinued Comment on above: Inject 3 Units subcu taneously w MEALS. ipratropium bromide 0.021 mg/actuat metered dose nasal spray (20 sources) Anticholinergic Start: 11-09-19 take 2 spray(s) nasal route three times daily as needed for congestion Ipratropium [place] 21 mcg (0.03 %) spray,non-aerosol Active 2 NMA INTRANASAL THREE TIMES A DAY as needed for nasal congestion November 09, 2023 1:44pm 2 sprays each nostril twice a day as need for allergies. Start: 12-05-2022 End: 11-09-2023 Start: 12-05-2022 End: 11-09-2023 take 2 spray(s) nasal route twice daily Ipratropium [place] 21 mcg (0.03 %) spray,non-aerosol Discontinued 2 NMA INTRANASAL TWICE A DAY 30 0 December 05, 2022 12:00am November 09, 2023 1:45pm 2 sprays each nostril twice a day as need for allergies. Ipratropium Brom jane (ATROVENT) 21 mcg (0.03 %) nasal spray Use 1 [place] in the nose three times a day as needed. Active loratadine 10 mg oral tablet (20 sources) Start: 01-20-2023 Start: 11-09-2021 End: 12-05-2022 take 1 tablet by mouth once daily loratadine 10 mg tablet Discontinued 10 mg SL/PO DAILY November 09, 2021 12:00am December 05, 2022 11:55am Allergies Comment on above: Take by mouth. melatonin 5 mg oral tablet (3 sources) Start: 06-15-2021 take 5 mg by mouth at bedtime melatonin Active 5 MG SL/PO AT BEDTIME June 15, 2021 12:00am 24 hr metoprolol succinate 25 mg extended release oral tablet (20 sources) beta-Adrenergic Erika Start: 12-05-2022 Start: 06-15-2021 End: 12-05-2022 take 1 tablet by mouth once daily metoprolol succinate 25 mg tablet Discontinued 25 mg SL/PO DAILY June 15, 2021 12:00am December 05, 2022 11:55am Blood Pressure Start: 06-10-2021 End: 07-08-2022 take 1 tablet by mouth once daily metoprolol succinate ER (TOPROL XL) 25 mg 24 hr tablet TAKE 1 TABLET BY MOUTH EVERY DAY 30 tablet 1 07/08/2022 Active Start: 04-08-2021 take 1 tablet by norbert th once daily metoprolol succinate ER (TOPROL XL) 25 mg 24 hr tablet Take 1 tablet by mouth once daily. 0 04/08/2021 Active Comment on above: Take 1 tablet by norbert th once daily. TAKE 1 TABLET BY NORBERT TH EVERY DAY Multivitamin Capsule (2 sources) Start: 12-26-2021 Multivitamin Capsule Active 1 NMA PO DAILY December 26, 2021 1:00am supplement Start: 12-26-2021 Multivitamin C apsule Active 1 NMA PO DAILY December 26, 2021 1:00am Multivitamin preparation (7 sources) Start: 12-26-2021 take 1 capsule by mouth once daily Multivitamin Active 1 CAP PO DAILY December 26, 2021 12:00am Start: 12-26-2021 take 1 capsule by mo nv[facility] once daily Multivitamin Active 1 CAP PO DAILY December 26, 2021 1:00am Start: 12-26-2021 Multivitamin A ctive CAP December 26, 2021 1:00am Start: 12-26-2021 Multivitamin A ctive CAP December 26, 2021 12:00am multivitamin tablet (20 sources) take 1 tablet by norbert th once daily multivitamin tablet Take 1 tablet by mouth once daily. Active take 1 tablet by mouth once ross y multivitamin tablet Take 1 tablet by mouth once daily. 0 Active pantoprazole 20 mg delayed r elease oral tablet (20 sources) Proton Pump Inhibitor Start: 12-05-2022 End: 05-23-2023 Start: 12-05-2022 End: 05-23-2023 take 2 tablets by mouth once daily Pantoprazole 20 mg Tablet,Delayed Release (Dr/Ec) Discontinued 40 mg PO DAILY December 05, 2022 12:00am May 23, 2023 11:06pm Start: 12-05-2022 take 40 mg by mouth once daily Pantoprazole Active 40 MG PO DAILY December 04, 2022 11:00pm Comment on above: Take 1 tablet by norbert every afternoon. perflutren lipid microspheres 1.3 mL in NaCl (PF) 0.9% 10 mL injection (DEFINITY) (17 sources) Start: 2 End: perflutren lipid microspheres 1.3 mL in NaCl (PF) 0.9% 10 mL injection (DEFINITY) SENNA-DOCUSATE SODIUM ORAL (20 sources) Start: take 1 tablet by mouth every other day as needed SENNA-DOCUSATE SODIUM ORAL Take one tablet by mouth every other day as needed. 06/15/2021 Active Start: 06-15-2021 take 1 tablet by norbert every other day as needed SENNA-DOCUSATE SODIUM ORAL Take one tablet by mouth every other day as needed. 0 06/15/2021 Active Start: 06-15-2021 SENNA-DOCUSATE SODIUM ORAL Take by mouth. 0 06/15/2021 Active Comment on above: Take by mouth. Sennosides (Senna Lax) 8.6 mg tablet (2 sources) Start: 01-20-2023 take 1 tablet by mouth at bedtime Sennosides (Senna Lax) 8.6 mg tablet Active 8.6 mg PO AT BEDTIME January 20, 2023 1:00am sennosides, mcfp 8.6 mg oral tablet (3 sources) Start: 01-20-2023 tamsulosin hydrochloride 0.4 mg oral capsule (3 sources) alpha-Adrenergic Erika Start: 10-29-2024 (20 sources) Start: 12-26-2021 Start: 11-09-2021 End: 12-05-2022 Start: 06-15-2021 End: 11-09-2023 Start: 06-15-2021 End: 12-05-2022 Start: 06-15-2021 End: 12-05-2022 Start: 06-15-2021 End: 12-05-2022 Start: 06-15-2021 End: 12-05-2022 Start: 06-15-2021 End: 11-24-2022 Completed/Discontinued Medications Medication Drug Class(es) Dates Sig (Normalized) Sig (Original) clopidogrel 75 mg oral tablet (20 sources) [id number] Platelet Inhibitor Start: 11-23-2022 End: 11-09-2023 3 ml insulin glargine 100 unt/ml pen [...] 10 Units subc utaneously daily at bedtime. insulin lispro (HUMALOG KWIKPEN) 100 unit/mL (6 sources) Start: inject 3 [IU] by subcutaneous injection at mealtime insulin lispro (HUMALOG KWIKPEN) 100 unit/mL Inject 3 Units subcutaneously w MEALS. 0 04/07/2021 Active Comment on above: Inject 3 Units subcu taneously w MEALS. lisinopril 2.5 mg oral tablet (20 sources) Angiotensin Converting Enzyme Inhibitor Start: End: Start: 04-08-2021 take 1 tablet by norbert th once daily lisinopril 2.5 mg tablet Take 1 tablet by mouth once daily. 0 04/08/2021 Active Comment on above: Take 1 tablet by norbert th once daily. metFORMIN hydrochloride 500 mg oral tablet (20 sources) Biguanide Start: 06-15-2021 End: 10-29-2024 Start: 06-15-2021 End: 12-05-2022 take 1000 mg by mouth twice daily metformin Discontinued 1000 MG SL/PO TWICE A DAY June 14, 2021 11:00pm December 05, 2022 10:55am Start: 03-15-2021 take 1 tablet by norbert once daily Metformin 500 mg Tablet Active 500 mg PO DAILY May 23, 2023 12:00am Start: 03-15-2021 End: 05-23-2023 take 1 tablet by mouth twice daily at mealtime Metformin 500 mg Tablet Discontinued 500 mg PO TWICE DAILY WITH MEALS 60 0 December 05, 2022 12:00am May 23, 2023 [...] Start: 06-15-2021 take 2 tablets by mo [facility] once daily senna-docusate sodium Active 8.6 MG SL/PO DAILY June 14, 2021 11:00pm 2 tabs daily Start: 06-15-2021 take 2 tablets by mo ut once daily senna-docusate sodium Active 8.6 MG SL/PO DAILY June 15, 2021 12:00am 2 tabs daily senna-docusate sodium 8.6 mg tablet (2 sources) Start: 06-15-2021 End: 11-24-2022 take 2 [...] Classification Problem Date Documented Date Episodic/Chronic Acute and unspecified renal failure (15 sources) Acute renal failure syndrome; Translations: [Acute kidney failure, unspecified] Onset: 5 10-17-2024 Episodic Acute cerebrovascular disease (20 sources) Cerebrovascular accident; Translations: [Cerebral infarction, unspecified] Onset: 2 Resolved: 4 04-01-2021 Chronic Comment on above: 11/22/22 - R frontot emporal ischemic Cardiac dysrhythmias (9 sources) ECG: sinus tachycardia; Translations: [Tachycardia, unspecified] Onset: 5 10-17-2024 Episodic Congestive heart failure; nonhypertensive (5 sources) Diastolic heart failure; Translations: [Unspecified diastolic (congestive) heart failure] 01-20-2023 Chronic Deficiency and other anemia (7 sources) Normocytic normochromic anemia; Translations: [Anemia, unspecified] 12-06-2022 Episodic Comment on above: New since April 023 Deficiency and other anemia (2 sources) Anemia, unspecified; Translations: [Anemia, unspecified] 12-05-2022 Episodic Developmental disorders (20 sources) Cognitive developmental delay; Translations: [Developmental disorder of scholastic skills, unspecified] Onset: 4 04-18-2023 Chronic Diabetes mellitus with complications (8 sources) Hyperglycemia due to type 2 diabetes mellitus; Translations: [Type 2 diabetes mellitus with hyperglycemia] Onset: 5 11-06-2024 Chronic Diabetes mellitus without complication (20 sources) Diabetes mellitus; Translations: [Type 2 diabetes mellitus without complications] Onset: 2 04-01-2021 Chronic E Codes: Fall (7 sources) Fall; Translations: [Unspecified fall, initial encounter] Onset: 5 11-06-2024 Episodic Essential hypertension (10 sources) Essential hypertension; Translations: [Essential (primary) hypertension] 02-29-2024 Chronic Fluid and electrolyte disorders (20 sources) Dehydration; Translations: [Dehydration] Onset: 5 12-06-2022 Episodic Comment on above: Creatinine at presen tation to the emergency room was elevated at 1.35 with a BUN of 29. Genitourinary symptoms and ill-defined conditions (14 sources) Blood in urine; Translations: [Hematuria, unspecified] Onset: 5 11-06-2024 Episodic Late effects of cerebrovascular disease (5 sources) Aphasia as late effect of cerebrovascular accident; Translations: [Aphasia following cerebral infarction] Onset: Chronic Malaise and fatigue (13 sources) Asthenia; Translations: [Other malaise] 12-13-2022 Episodic Nonspecific chest pain (14 sources) Chest pain; Translations: [Chest pain, unspecified] 10-21-2021 Episodic Open wounds of head; neck; and trunk (8 sources) Laceration of nose; Translations: [Laceration without foreign body of nose, initial encounter] 10-17-2024 Episodic Other aftercare (6 sources) Long-term current use of anticoagulant; Translations: [long term acute care registered nurse (current) use of anticoagulants] 11-06-2024 Episodic Other aftercare (1 source) long term acute care registered nurse (current) use of anticoagulants; Translations: [penitentiary (current) use of anticoagulants] Onset: Episodic Other circulatory disease (2 sources) Inferior vena cava filter in situ; Translations: [Presence of other vascular implants and grafts] 08-07-2023 Chronic Other circulatory disease (2 sources) Central venous catheter in situ; Translations: [Presence of other vascular implants and grafts] 12-03-2024 Chronic Other circulatory disease (2 sources) Presence of other vascular implants and grafts; Translations: [Presence of other vascular implants and grafts] Onset: Chronic Other circulatory disease (1 source) Other specified peripheral vascular diseases; Translations: [Other specified peripheral vascular diseases] Onset: 5 Chronic Other circulatory disease (8 sources) History of cerebrovascular accident; Translations: [Personal history of transient ischemic attack (TIA), and cerebral infarction without residual deficits] 10-17-2024 Episodic Other connective tissue disease (7 sources) Weakness of face muscles; Translations: [Facial weakness] 12-13-2022 Episodic Comment on above: left, mild, due to a cute CVA Other connective tissue disease (1 source) Pain in finger of left hand; Translations: [Pain in left finger(s)] 12-06-2023 Episodic Other connective tissue disease (6 sources) Rhabdomyolysis; Translations: [Rhabdomyolysis] 11-06-2024 Episodic Other connective tissue disease (2 sources) Rhabdomyolysis; Translations: [Rhabdomyolysis] Onset: 5 Episodic Other connective tissue disease (1 source) Muscle wasting and atrophy, not elsewhere classified, right lower leg; Translations: [Muscle wasting and atrophy, not elsewhere classified, right lower leg] Onset: 5 Episodic Other diseases of bladder and urethra (6 sources) Urethral stricture; Translations: [Unspecified urethral stricture, male, unspecified site] 10-18-2024 Episodic Other diseases of bladder and urethra (1 source) Unspecified urethral stricture, male, unspecified site; Translations: [Unspecified urethral stricture, male, unspecified site] Onset: 5 Episodic Other gastrointestinal disorders (20 sources) Dysphagia; Translations: [Dysphagia, unspecified] Onset: 2 04-02-2021 Episodic Other gastrointestinal disorders (7 sources) Occult blood in stools; Translations: [Other fecal abnormalities] 12-06-2022 Episodic Other gastrointestinal disorders (2 sources) Other fecal abnormalities; Translations: [Nonspecific abnormal findings in stool contents] 12-05-2022 Episodic Other injuries and conditions due to external causes (8 sources) Closed injury of head; Translations: [Unspecified injury of head, initial encounter] 10-17-2024 Episodic Other injuries and conditions due to external causes (6 sources) Systemic inflammatory response syndrome; Translations: [Systemic inflammatory response syndrome (SIRS) of non-infectious origin without acute organ dysfunction] 11-06-2024 Episodic Other injuries and conditions due to external causes (1 source) Systemic inflammatory response syndrome (SIRS) of non-infectious origin without acute organ dysfunction; Translations: [Systemic inflammatory response syndrome (SIRS) of non-infectious origin without acute organ dysfunction] Onset: 5 Episodic Other lower respiratory disease (3 sources) Dyspnea; Translations: [Shortness of breath] Episodic Other nervous system disorders (1 source) Irregular sleep-wake pattern; Translations: [Circadian rhythm sleep disorder, irregular sleep wake type] 07-12-2024 Chronic Other nervous system disorders (1 source) Circadian rhythm sleep disorder, irregular sleep wake type; Translations: [Irregular sleep-wake rhythm] Onset: 5 Chronic Other nervous system disorders (6 sources) Unable to walk; Translations: [Difficulty in walking, not elsewhere classified] 10-17-2024 Chronic Other nervous system disorders (8 sources) Paresthesia; Translations: [Paresthesia of skin] 11-22-2022 Episodic Other nervous system disorders (8 sources) Dysarthria; Translations: [Dysarthria and anarthria] 11-22-2022 Episodic Other nervous system disorders (1 source) Dysarthria and anarthria; Translations: [Dysarthria] 11-24-2022 Episodic Other nervous system disorders (5 sources) Paresthesia of skin; Translations: [Disturbance of skin sensation] 11-24-2022 Episodic Other nervous system disorders (9 sources) Other symptoms and signs involving cognitive functions and awareness; Translations: [Cognitive change] 12-06-2022 Episodic Comment on above: Cognition has declin ed since he last went to [facility] for ST. Other nervous system disorders (8 sources) Abnormal gait; Translations: [Unspecified abnormalities of gait and mobility] Onset: 5 07-12-2024 Episodic Other nervous system disorders (1 source) Unspecified abnormalities of gait and mobility; Translations: [Abnormality of gait] Onset: 5 Episodic Other screening for suspected conditions (not mental disorders or infectious disease) (10 sources) Measurement finding above reference range; Translations: [Abnormal coagulation profile] Onset: 5 09-12-2023 Episodic Parkinson`s disease (2 sources) Parkinson`s disease; Translations: [Parkinson's disease without dyskinesia, without mention of fluctuations] Onset: 5 Karla-; endo-; and myocarditis; cardiomyopathy (except that [...] Onset: 2 04-02-2021 Episodic Residual codes; unclassified (7 sources) History of neurodevelopmental disorder; Translations: [Personal history of other specified conditions] 12-13-2022 Episodic Septicemia (except in labor) (1 source) Sepsis, unspecified organism; Translations: [Sepsis, unspecified organism] Onset: 5 Episodic Unclassified (13 sources) Parkinsonism; Translations: [Parkinsonism, unspecified Parkinsonism type (HCC)] Onset: 5 10-20-2023 Chronic Unclassified (6 sources) Parkinson's disease; Translations: [Parkinson's disease] 11-06-2024 Chronic Unclassified (1 source) Parkinsonism, unspecified Parkinsonism type (HCC); Translations: [Parkinsonism, unspecified Parkinsonism type (HCC)] Onset: 5 Unclassified (1 source) Other acidosis; Translations: [Other acidosis] Onset: 5 Urinary tract infections (14 sources) Acute urinary tract infection; Translations: [Urinary tract infection, site not specified] 10-21-2021 Episodic Past or Other Problems Problem Classification Problem Date Documented Date Episodic/Chronic Other connective tissue disease (3 sources) Other symptoms and signs involving the musculoskeletal system; Translations: [Other musculoskeletal symptoms referable to limbs] Onset: 12-06-2023 04-18-2023 Episodic Other connective tissue disease (1 source) Pain in left finger(s); Translations: [Pain in finger of left hand] Onset: 12-06-2023 Episodic Spondylosis; intervertebral disc disorders; other back problems (2 sources) Neck pain; Translations: [Cervicalgia] Onset: 12-06-2023 12-06-2023 Episodic Results Test Name Value Interpretation Reference Range Facility Surgery Visit Reporton 12-13 Surgery Visit Report Normal [facility] Absolute lymphocyte countOrd ered By: Conrad Burnett on 11-27-2024 Lymphocytes Auto (Unsp spec) [#/Vol] 1.62 10*3/uL 0.83-4.51 [facility] Anion gap in Serum or Plasma Ordered By: Conrad Burnett on 11-27-2024 Anion gap [Moles/Vol] 10 mmol/L 5-15 [facility] Automated lymphocyte count a s percentage of total leukocytesOrdered By: Conrad Burnett on 11-27-2024 Lymphocytes/100 WBC Auto (Unsp spec) 20.0 % - [facility] BUN/creatinine ratioOrdered By: Conrad Burnett on 11-27-2024 Urea nitrogen/Creatinine [Mass ratio] 9.1 mg/mg Low 10- [facility] Basophil percentageOrdered B y: Conrad Burnett on 11-27-2024 Basophils/100 WBC (Bld) 1.6 % High 0-1 [facility] Bilirubin directOrdered By: Conrad Burnett on 11-27-2024 Bilirubin.direct [Mass/Vol] 0.17 mg/dL 0.00-0.30 [facility] Bilirubin, totalOrdered By: Conrad Burnett on 11-27-2024 Bilirubin [Mass/Vol] 0.47 mg/dL 0.00-1.30 [facility] Carbon dioxide, total [Moles /volume] in Central venous bloodOrdered By: Conrad Burnett on 11-27-2024 CO2 [Moles/Vol] 26.8 mmol/L 21.0-32.0 [facility] Chloride assayOrdered By: Godwin Burnett on 11-27-2024 Chloride [Moles/Vol] 103 mmol/L 98-108 [facility] Eosinophil percentageOrdered By: Conrad Burnett on 11-27-2024 Eosinophils/100 WBC (Bld) 3.1 % 0-5 [facility] Erythrocyte distribution wid th ratioOrdered By: Conrad Burnett on 11-27-2024 Erythrocyte distribution width (RBC) [Ratio] 15.0 % High 11.6-14.6 [facility] Erythrocyte distribution wid th standard deviationOrdered By: Conrad Burnett on 11-27-2024 Erythrocyte distribution width (RBC) [Ratio] 49.9 fl High 35.1-43.9 [facility] Glomerular filtration rate ( GFR) estimation/1.73 sq m using serum, plasma, or whole bOrdered By: Conrad Burnett on 11-27-2024 GFR/1.73 sq M.predicted among non-blacks MDRD (S/P/Bld) [Vol rate/Area] 43 mL/min/{1.73_m2} Low >60 [facility] Hematocrit Auto (Bld) [Volum e fraction]Ordered By: Normacentral lakedavid Burnett on 11-27-2024 Hematocrit (Bld) [Volume fraction] 37.9 % Low 40-54 [facility] Hemoglobin measurementOrdere d By: Conrad Burnett on 11-27-2024 Hemoglobin (Bld) [Mass/Vol] 11.5 g/dL Low 13.0-16.5 [facility] Immature granulocytes/100 WB C Auto (Bld)Ordered By: Conrad Burnett on 11-27-2024 Immature granulocytes/100 WBC (Bld) 0.200 % 0.0-0.9 [facility] MCV (mean corpuscular volume ) determinationOrdered By: Conrad Burnett on 11-27-2024 MCV (RBC) [Entitic vol] 97.4 fL High 80-94 [facility] Mean corpuscular hemoglobin (MCH) determinationOrdered By: Conrad Burnett on 11-27-2024 MCH (RBC) [Entitic mass] 29.6 pg 27.0-32.0 [facility] Monocyte percentageOrdered B y: Conrad Burnett on 11-27-2024 Monocytes/100 WBC (Bld) 11.6 % High 0-10 [facility] Neutrophil percentageOrdered By: Conrad Burnett on 11-27-2024 Neutrophils/100 WBC (Bld) 63.5 % 47-70 [facility] No Panel InformationOrdered By: Conrad Burnett on 11-27-2024 23 U/L <38 [facility] Platelet countOrdered By: Godwin Burnett on 11-27-2024 Platelets (Bld) [#/Vol] 290 10*3/uL 150-450 [facility] Potassium measurement (mass/ volume)Ordered By: Conrad Burnett on 11-27-2024 Potassium (Unsp spec) [Mass/Vol] 4.6 mmol/L 3.3-5.1 [facility] RBC Auto (Bld) [#/Vol]Ordere d By: Conrad Burnett on 11-27-2024 RBC (Bld) [#/Vol] 3.89 10*6/uL Low 4.6-6.2 [facility] Serum creatinine measurement (mass/volume)Ordered By: Conrad Burnett on 11-27-2024 Creatinine [Mass/Vol] 1.67 mg/dL High 0.70-1.20 [facility] Serum globulin measurementOr dered By: Conrad Burnett on 11-27-2024 Globulin (S) [Mass/Vol] 3.3 g/dL 2.2-4.2 [facility] Serum glucose measurement (m ass/volume)Ordered By: Conrad Burnett on 11-27-2024 Glucose [Mass/Vol] 131 mg/dL High 70-99 [facility] Serum or plasma alanine gandhi otransferase (ALT) measurementOrdered By: Conrad Burnett on 11-27-2024 ALT [Catalytic activity/Vol] 7 U/L <47 [facility] Serum or plasma albumin makenzie urement (mass/volume)Ordered By: Conrad Burnett on 11-27-2024 Albumin [Mass/Vol] 4.0 g/dL 3.4-4.8 [facility] Serum or plasma alkaline manju sphatase measurementOrdered By: Conrad Burnett 11-27-2024 ALP [Catalytic activity/Vol] 86 U/L 40-129 [facility] Serum or plasma calcium makenzie urement (mass/volume)Ordered By: Conrad Burnett on 11-27-2024 Calcium [Mass/Vol] 9.3 mg/dL 7.6-11.0 [facility] Serum or plasma urea nitroge n measurement (mass/volume)Ordered By: Conrad Burnett on 11-27-2024 Urea nitrogen [Mass/Vol] 15 mg/dL 4-19 [facility] Sodium levelOrdered By: Norma Burnett on 11-27-2024 Sodium [Moles/Vol] 140 mmol/L 133-145 [facility] Total proteinOrdered By: Malick Burnett on 11-27-2024 Protein [Mass/Vol] 7.2 g/dL 5.9-8.4 [facility] White blood cell (WBC) count Ordered By: Conrad Burnett on 11-27-2024 WBC (Bld) [#/Vol] 8.1 10*3/uL 4.4-11.0 [facility] Absolute lymphocyte countOrd ered By: Conrad Burnett on 11-20-2024 Lymphocytes Auto (Unsp spec) [#/Vol] 1.84 10*3/uL 0.83-4.51 [facility] Anion gap in Serum or Plasma Ordered By: Conrad Burnett on 11-20-2024 Anion gap [Moles/Vol] 13 mmol/L 5-15 [facility] Automated lymphocyte count a s percentage of total leukocytesOrdered By: Conrad Burnett on 11-20-2024 Lymphocytes/100 WBC Auto (Unsp spec) 20.9 % 19- [facility] BUN/creatinine ratioOrdered By: Conrad Burnett on 11-20-2024 Urea nitrogen/Creatinine [Mass ratio] 7.8 mg/mg Low 10- [facility] Basophil percentageOrdered B y: Conrad Burnett on 11-20-2024 Basophils/100 WBC (Bld) 1.4 % High 0-1 [facility] Carbon dioxide, total [Moles /volume] in Central venous bloodOrdered By: Conrad Burnett on 11-20-2024 CO2 [Moles/Vol] 26.4 mmol/L 21.0-32.0 [facility] Chloride assayOrdered By: Godwin Burnett on 11-20-2024 Chloride [Moles/Vol] 102 mmol/L 98-108 [facility] Eosinophil percentageOrdered By: Conrad Burnett on 11-20-2024 Eosinophils/100 WBC (Bld) 3.5 % 0-5 [facility] Erythrocyte distribution wid th ratioOrdered By: Conrad Burnett on 11-20-2024 Erythrocyte distribution width (RBC) [Ratio] 14.8 % High 11.6-14.6 [facility] Erythrocyte distribution wid th standard deviationOrdered By: Conrad Burnett on 11-20-2024 Erythrocyte distribution width (RBC) [Ratio] 52.8 fl High 35.1-43.9 [facility] Glomerular filtration rate ( GFR) estimation/1.73 sq m using serum, plasma, or whole bOrdered By: Conrad Burnett on 11-20-2024 GFR/1.73 sq M.predicted among non-blacks MDRD (S/P/Bld) [Vol rate/Area] 35 mL/min/{1.73_m2} Low >60 [facility] Hematocrit Auto (Bld) [Volum e fraction]Ordered By: Conrad Burnett on 11-20-2024 Hematocrit (Bld) [Volume fraction] 36.7 % Low 40-54 [facility] Hemoglobin measurementOrdere d By: Conrad Burnett on 11-20-2024 Hemoglobin (Bld) [Mass/Vol] 11.3 g/dL Low 13.0-16.5 [facility] Immature granulocytes/100 WB C Auto (Bld)Ordered By: Conrad Burnett on 11-20-2024 Immature granulocytes/100 WBC (Bld) 0.300 % 0.0-0.9 [facility] MCV (mean corpuscular volume ) determinationOrdered By: Conrad Burnett on 11-20-2024 MCV (RBC) [Entitic vol] 96.6 fL High 80-94 [facility] Mean corpuscular hemoglobin (MCH) determinationOrdered By: Conrad Burnett 11-20-2024 MCH (RBC) [Entitic mass] 29.7 pg 27.0-32.0 [facility] Monocyte percentageOrdered B y: Conrad Burnett on 11-20-2024 Monocytes/100 WBC (Bld) 9.8 % 0-10 [facility] Neutrophil percentageOrdered By: Conrad Burnett on 11-20-2024 Neutrophils/100 WBC (Bld) 64.1 % 47-70 [facility] Platelet countOrdered By: Godwin Burnett on 11-20-2024 Platelets (Bld) [#/Vol] 227 10*3/uL 150-450 [facility] Potassium measurement (mass/ volume)Ordered By: Conrad Burnett on 11-20-2024 Potassium (Unsp spec) [Mass/Vol] 3.5 mmol/L 3.3-5.1 [facility] RBC Auto (Bld) [#/Vol]Ordere d By: Conrad Burnett on 11-20-2024 RBC (Bld) [#/Vol] 3.80 10*6/uL Low 4.6-6.2 [facility] Serum creatinine measurement (mass/volume)Ordered By: Conrad Burnett on 11-20-2024 Creatinine [Mass/Vol] 1.98 mg/dL High 0.70-1.20 [facility] Serum glucose measurement (m ass/volume)Ordered By: Conrad Burnett on 11-20-2024 Glucose [Mass/Vol] 178 mg/dL High 70-99 [facility] Serum or plasma calcium makenzie urement (mass/volume)Ordered By: Conrad Burnett on 11-20-2024 Calcium [Mass/Vol] 9.3 mg/dL 7.6-11.0 [facility] Serum or plasma urea nitroge n measurement (mass/volume)Ordered By: Conrad Burnett on 11-20-2024 Urea nitrogen [Mass/Vol] 15 mg/dL 4-19 [facility] Sodium levelOrdered By: Norma Burnett on 11-20-2024 Sodium [Moles/Vol] 141 mmol/L 133-145 [facility] White blood cell (WBC) count Ordered By: Conrad Burnett on 11-20-2024 WBC (Bld) [#/Vol] 8.8 10*3/uL 4.4-11.0 [facility] CBC W/Diff, Automatedon 11-06 PATH REV Reviewed Normal [facility] Comment on above: Order Comment: RESUL T(S) PREVIOUSLY REPORTED ON MANUAL REQUISITION DURINGDOWNTIME. Result Comment: SEE REPORT IN PATIENT'S EMR AMENDED REPORT 11/15/24 1127 PATH REV previously reported as: June Performed By: #### L 100.0100, L500.2500 ####[facility] [id number] [place], [address] Absolute lymphocyte countOrd ered By: Conrad Burnett on 11-13-2024 Lymphocytes Auto (Unsp spec) [#/Vol] 2.32 10*3/uL 0.83-4.51 [facility] Anion gap in Serum or Plasma Ordered By: Conrad Burnett on 11-13-2024 Anion gap [Moles/Vol] 13 mmol/L 5-15 [facility] Automated lymphocyte count a s percentage of total leukocytesOrdered By: Conrad Burnett on 11-13-2024 Lymphocytes/100 WBC Auto (Unsp spec) 23.8 % 19-41 [facility] BUN/creatinine ratioOrdered By: Conrad Burnett on 11-13-2024 Urea nitrogen/Creatinine [Mass ratio] 6.7 mg/mg Low 10-20 [facility] Basophil percentageOrdered B y: Conrad Burnett on 11-13-2024 Basophils/100 WBC (Bld) 2.0 % High 0-1 [facility] Carbon dioxide, total [Moles /volume] in Central venous bloodOrdered By: Conrad Burnett on 11-13-2024 CO2 [Moles/Vol] 24.3 mmol/L 21.0-32.0 [facility] Chloride assayOrdered By: Godwin Burnett on 11-13-2024 Chloride [Moles/Vol] 104 mmol/L 98-108 [facility] Eosinophil percentageOrdered By: Conrad Burnett on 11-13-2024 Eosinophils/100 WBC (Bld) 8.4 % High 0-5 [facility] Erythrocyte distribution wid th ratioOrdered By: Conrad Burnett on 11-13-2024 Erythrocyte distribution width (RBC) [Ratio] 14.9 % High 11.6-14.6 [facility] Erythrocyte distribution wid th standard deviationOrdered By: Conrad Burnett on 11-13-2024 Erythrocyte distribution width (RBC) [Ratio] 49.1 fl High 35.1-43.9 [facility] Glomerular filtration rate ( GFR) estimation/1.73 sq m using serum, plasma, or whole bOrdered By: Normacentral lakedavid Burnett on 11-13-2024 GFR/1.73 sq M.predicted among non-blacks MDRD (S/P/Bld) [Vol rate/Area] 26 mL/min/{1.73_m2} Low >60 [facility] Hematocrit Auto (Bld) [Volum e fraction]Ordered By: Conrad Burnett on 11-13-2024 Hematocrit (Bld) [Volume fraction] 30.5 % Low 40-54 [facility] Hemoglobin measurementOrdere d By: Conrad Burnett on 11-13-2024 Hemoglobin (Bld) [Mass/Vol] 9.6 g/dL Low 13.0-16.5 [facility] Immature granulocytes/100 WB C Auto (Bld)Ordered By: Conrad Burnett on 11-13-2024 Immature granulocytes/100 WBC (Bld) 1.400 % High 0.0-0.9 [facility] MCV (mean corpuscular volume ) determinationOrdered By: Conrad Burnett on 11-13-2024 MCV (RBC) [Entitic vol] 96.8 fL High 80-94 [facility] Mean corpuscular hemoglobin (MCH) determinationOrdered By: Normacentral lakedavid Burnett on 11-13-2024 MCH (RBC) [Entitic mass] 30.5 pg 27.0-32.0 [facility] Monocyte percentageOrdered B y: Conrad Burnett on 11-13-2024 Monocytes/100 WBC (Bld) 11.6 % High 0-10 [facility] Neutrophil percentageOrdered By: Conrad Burnett on 11-13-2024 Neutrophils/100 WBC (Bld) 52.8 % 47-70 [facility] Platelet countOrdered By: Godwin jackieyesi Burnett on 11-13-2024 Platelets (Bld) [#/Vol] 288 10*3/uL 150-450 [facility] Potassium measurement (mass/ volume)Ordered By: Conrad Burnett on 11-13-2024 Potassium (Unsp spec) [Mass/Vol] 3.7 mmol/L 3.3-5.1 [facility] RBC Auto (Bld) [#/Vol]Ordere d By: Conrad Burnett on 11-13-2024 RBC (Bld) [#/Vol] 3.15 10*6/uL Low 4.6-6.2 [facility] Serum creatinine measurement (mass/volume)Ordered By: Conrad Burnett on 11-13-2024 Creatinine [Mass/Vol] 2.55 mg/dL High 0.70-1.20 [facility] Serum glucose measurement (m ass/volume)Ordered By: Conrad Burnett on 11-13-2024 Glucose [Mass/Vol] 132 mg/dL High 70-99 [facility] Serum or plasma calcium makenzie urement (mass/volume)Ordered By: Conrad Burnett on 11-13-2024 Calcium [Mass/Vol] 9.2 mg/dL 7.6-11.0 [facility] Serum or plasma urea nitroge n measurement (mass/volume)Ordered By: Conrad Burnett on 11-13-2024 Urea nitrogen [Mass/Vol] 17 mg/dL 4-19 [facility] Sodium levelOrdered By: Norma yesi Hortencia on 11-13-2024 Sodium [Moles/Vol] 141 mmol/L 133-145 [facility] White blood cell (WBC) count Ordered By: Conrad Burnett on 11-13-2024 WBC (Bld) [#/Vol] 9.7 10*3/uL 4.4-11.0 [facility] Absolute lymphocyte countOrd ered By: Conrad Burnett on 11-06-2024 Lymphocytes Auto (Unsp spec) [#/Vol] 2.16 10*3/uL 0.83-4.51 [facility] Anion gap in Serum or Plasma Ordered By: Conrad Burnett on 11-06-2024 Anion gap [Moles/Vol] 15 mmol/L 5-15 [facility] Automated lymphocyte count a s percentage of total leukocytesOrdered By: Conrad Burnett on 11-06-2024 Lymphocytes/100 WBC Auto (Unsp spec) 22.0 % 19-41 [facility] BUN/creatinine ratioOrdered By: Conrad Burnett on 11-06-2024 Urea nitrogen/Creatinine [Mass ratio] 7.6 mg/mg Low 10-20 [facility] Basophil percentageOrdered B y: Conrad Burnett on 11-06-2024 Basophils/100 WBC (Bld) 1.8 % High 0-1 [facility] Carbon dioxide, total [Moles /volume] in Central venous bloodOrdered By: Conrad Burnett on 11-06-2024 CO2 [Moles/Vol] 23.5 mmol/L 21.0-32.0 [facility] Chloride assayOrdered By: Godwin Burnett on 11-06-2024 Chloride [Moles/Vol] 104 mmol/L 98-108 [facility] Eosinophil percentageOrdered By: Conrad Burnett on 11-06-2024 Eosinophils/100 WBC (Bld) 5.2 % High 0-5 [facility] Erythrocyte distribution wid th ratioOrdered By: Conrad Burnett on 11-06-2024 Erythrocyte distribution width (RBC) [Ratio] 13.9 % 11.6-14.6 [facility] Erythrocyte distribution wid th standard deviationOrdered By: Conrad Burnett on 11-06-2024 Erythrocyte distribution width (RBC) [Ratio] 48.0 fl High 35.1-43.9 [facility] Glomerular filtration rate ( GFR) estimation/1.73 sq m using serum, plasma, or whole bOrdered By: Conrad Burnett on 11-06-2024 GFR/1.73 sq M.predicted among non-blacks MDRD (S/P/Bld) [Vol rate/Area] 18 mL/min/{1.73_m2} Low >60 [facility] Hematocrit Auto (Bld) [Volum e fraction]Ordered By: Conrad Burnett on 11-06-2024 Hematocrit (Bld) [Volume fraction] 29.4 % Low 40-54 [facility] Hemoglobin measurementOrdere d By: Normastevedavid Cardozasahrakofi on 11-06-2024 Hemoglobin (Bld) [Mass/Vol] 9.4 g/dL Low 13.0-16.5 [facility] Immature granulocytes/100 WB C Auto (Bld)Ordered By: Conrad Burnett on 11-06-2024 Immature granulocytes/100 WBC (Bld) 0.300 % 0.0-0.9 [facility] MCV (mean corpuscular volume ) determinationOrdered By: Conrad Burnett on 11-06-2024 MCV (RBC) [Entitic vol] 95.1 fL High 80-94 [facility] Mean corpuscular hemoglobin (MCH) determinationOrdered By: Conrad Burnett on 11-06-2024 MCH (RBC) [Entitic mass] 30.4 pg 27.0-32.0 [facility] Monocyte percentageOrdered B y: Conrad Burnett on 11-06-2024 Monocytes/100 WBC (Bld) 9.6 % 0-10 [facility] Neutrophil percentageOrdered By: Conrad Burnett on 11-06-2024 Neutrophils/100 WBC (Bld) 61.1 % 47-70 [facility] Platelet countOrdered By: Godwin kia Sonysahrakofi on 11-06-2024 Platelets (Bld) [#/Vol] 451 10*3/uL High 150-450 [facility] Potassium measurement (mass/ volume)Ordered By: Godwinkai Cardozasahrakofi on 11-06-2024 Potassium (Unsp spec) [Mass/Vol] 4.0 mmol/L 3.3-5.1 [facility] RBC Auto (Bld) [#/Vol]Ordere d By: Conrad Benoitkofi on 11-06-2024 RBC (Bld) [#/Vol] 3.09 10*6/uL Low 4.6-6.2 [facility] Serum creatinine measurement (mass/volume)Ordered By: Conrad Burnett on 11-06-2024 Creatinine [Mass/Vol] 3.49 mg/dL High 0.70-1.20 [facility] Serum glucose measurement (m ass/volume)Ordered By: Conrad Burnett on 11-06-2024 Glucose [Mass/Vol] 132 mg/dL High 70-99 [facility] Serum or plasma calcium makenzie urement (mass/volume)Ordered By: Conrad Burnett on 11-06-2024 Calcium [Mass/Vol] 9.1 mg/dL 7.6-11.0 [facility] Serum or plasma urea nitroge n measurement (mass/volume)Ordered By: Conrad Burnett on 11-06-2024 Urea nitrogen [Mass/Vol] 27 mg/dL High 4-19 [facility] Sodium levelOrdered By: Norma yesi Hortencia on 11-06-2024 Sodium [Moles/Vol] 143 mmol/L 133-145 [facility] White blood cell (WBC) count Ordered By: Conrad Burnett on 11-06-2024 WBC (Bld) [#/Vol] 9.8 10*3/uL 4.4-11.0 [facility] Absolute lymphocyte countOrd ered By: Conrad Burnett on 10-31-2024 Lymphocytes Auto (Unsp spec) [#/Vol] 1.73 10*3/uL 0.83-4.51 [facility] Anion gap in Serum or Plasma Ordered By: Conrad Burnett on 10-31-2024 Anion gap [Moles/Vol] 24 mmol/L High 5-15 [facility] Automated lymphocyte count a s percentage of total leukocytesOrdered By: Conrad Burnett on 10-31-2024 Lymphocytes/100 WBC Auto (Unsp spec) 13.1 % Low 19-41 [facility] BUN/creatinine ratioOrdered By: Conrad Burnett on 10-31-2024 Urea nitrogen/Creatinine [Mass ratio] 4.7 mg/mg Low 10- [facility] Basic Metabolic Profile (BMP )on 10-31-2024 BUN Normal 4-19 [facility] Comment on above: Result Comment: Canc elled via OM: Order cancelled - Patient discharged Performed By: #### L 500.2500, L100.0100 ####[facility] [address] [place], [address] BUN/CRE Normal 10- [facility] Comment on above: Result Comment: Canc elled via OM: Order cancelled - Patient discharged Performed By: #### L 500.2500, L100.0100 ####[facility] [address] [place], [address] Calcium Normal 7.6-11.0 [facility] Comment on above: Result Comment: Canc elled via OM: Order cancelled - Patient discharged Performed By: #### L 500.2500, L100.0100 ####[facility] [address] [place], [address] CL Normal 98-108 [facility] Comment on above: Result Comment: Canc elled via OM: Order cancelled - Patient discharged Performed By: #### L 500.2500, L100.0100 ####[facility] [address] [place], [address] CO2 Normal 21.0-32.0 [facility] Comment on above: Result Comment: Canc elled via OM: Order cancelled - Patient discharged Performed By: #### L 500.2500, L100.0100 ####[facility] [address] [place], [address] CREAT,SERUM Normal 0.70-1.20 [facility] Comment on above: Result Comment: Canc elled via OM: Order cancelled - Patient discharged Performed By: #### L 500.2500, L100.0100 ####[facility] [address] [place], [address] eGFR Normal >60 [facility] Comment on above: Result Comment: Canc elled via OM: Order cancelled - Patient discharged Performed By: #### L 500.2500, L100.0100 ####[facility] [address] [place], [address] GAP Normal 5-15 [facility] Comment on above: Result Comment: Canc elled via OM: Order cancelled - Patient discharged Performed By: #### L 500.2500, L100.0100 ####[facility] [address] [place], [address] GLU Normal 70-99 [facility] Comment on above: Result Comment: Canc elled via OM: Order cancelled - Patient discharged Performed By: #### L 500.2500, L100.0100 ####[facility] [address] [place], [address] Potassium Normal 3.3-5.1 [facility] Comment on above: Result Comment: Canc elled via OM: Order cancelled - Patient discharged Performed By: #### L 500.2500, L100.0100 ####[facility] [address] [place], [address] Basic Metabolic Profile (BMP) Normal 133-145 [facility] Comment on above: Result Comment: Canc elled via OM: Order cancelled - Patient discharged Performed By: #### L 500.2500, L100.0100 ####[facility] [address] [place], [address] Basophil percentageOrdered B y: Conrad Burnett on 10-31-2024 Basophils/100 WBC (Bld) 1.1 % High 0-1 [facility] Bilirubin, totalOrdered By: Conrad Burnett on 10-31-2024 Bilirubin [Mass/Vol] 0.25 mg/dL 0.00-1.30 [facility] CBC W/Diff, Automatedon 09-2 Absolute Neut Normal 2.0-7.7 [facility] Comment on above: Result Comment: Canc elled via OM: Order cancelled - Patient discharged Performed By: #### L 500.2500, L100.0100 ####[facility] [address] [place], [address] HCT Normal 40-54 [facility] Comment on above: Result Comment: Canc elled via OM: Order cancelled - Patient discharged Performed By: #### L 500.2500, L100.0100 ####[facility] [address] [place], [address] HGB Normal 13.0-16.5 [facility] Comment on above: Result Comment: Canc elled via OM: Order cancelled - Patient discharged Performed By: #### L 500.2500, L100.0100 ####[facility] [address] [place], [address] MCH Normal 27.0-32.0 [facility] Comment on above: Result Comment: Canc elled via OM: Order cancelled - Patient discharged Performed By: #### L 500.2500, L100.0100 ####[facility] [address] [place], [address] MCHC Normal 32-36 [facility] Comment on above: Result Comment: Canc elled via OM: Order cancelled - Patient discharged Performed By: #### L 500.2500, L100.0100 ####[facility] [address] [place], [address] MCV Normal 80-94 [facility] Comment on above: Result Comment: Canc elled via OM: Order cancelled - Patient discharged Performed By: #### L 500.2500, L100.0100 ####[facility] [address] [place], [address] NEUT% Normal 47-70 [facility] Comment on above: Result Comment: Canc elled via OM: Order cancelled - Patient discharged Performed By: #### L 500.2500, L100.0100 ####[facility] [address] [place], [address] PLT Normal 150-450 [facility] Comment on above: Result Comment: Canc elled via OM: Order cancelled - Patient discharged Performed By: #### L 500.2500, L100.0100 ####[facility] [address] [place], [address] RBC Normal 4.6-6.2 [facility] Comment on above: Result Comment: Canc elled via OM: Order cancelled - Patient discharged Performed By: #### L 500.2500, L100.0100 ####[facility] [address] [place], [address] RDW CV Normal 11.6-14.6 [facility] Comment on above: Result Comment: Canc elled via OM: Order cancelled - Patient discharged Performed By: #### L 500.2500, L100.0100 ####[facility] [address] [place], [address] RDW SD Normal 35.1-43.9 [facility] Comment on above: Result Comment: Canc elled via OM: Order cancelled - Patient discharged Performed By: #### L 500.2500, L100.0100 ####[facility] [address] [place], [address] WBC Normal 4.4-11.0 [facility] Comment on above: Result Comment: Canc elled via OM: Order cancelled - Patient discharged Performed By: #### L 500.2500, L100.0100 ####[facility] [address] [place], [address] Carbon dioxide, total [Moles /volume] in Central venous bloodOrdered By: Conrad Burnett on 10-31-2024 CO2 [Moles/Vol] 11.4 mmol/L Low 21.0-32.0 [facility] Chloride assayOrdered By: Godwin Burnett on 10-31-2024 Chloride [Moles/Vol] 107 mmol/L 98-108 [facility] Eosinophil percentageOrdered By: Conrad Burnett on 10-31-2024 Eosinophils/100 WBC (Bld) 3.5 % 0-5 [facility] Erythrocyte distribution wid th ratioOrdered By: Conrad Burnett on 10-31-2024 Erythrocyte distribution width (RBC) [Ratio] 14.3 % 11.6-14.6 [facility] Erythrocyte distribution wid th standard deviationOrdered By: Conrad Burnett on 10-31-2024 Erythrocyte distribution width (RBC) [Ratio] 48.7 fl High 35.1-43.9 [facility] Glomerular filtration rate ( GFR) estimation/1.73 sq m using serum, plasma, or whole bOrdered By: Conrad Burnett on 10-31-2024 GFR/1.73 sq M.predicted among non-blacks MDRD (S/P/Bld) [Vol rate/Area] 12 mL/min/{1.73_m2} Low >60 [facility] Hematocrit Auto (Bld) [Volum e fraction]Ordered By: Conrad Burnett on 10-31-2024 Hematocrit (Bld) [Volume fraction] 27.5 % Low 40-54 [facility] Hemoglobin measurementOrdere d By: Conrad Burnett on 10-31-2024 Hemoglobin (Bld) [Mass/Vol] 8.9 g/dL Low 13.0-16.5 [facility] Immature granulocytes/100 WB C Auto (Bld)Ordered By: Conrad Burnett on 10-31-2024 Immature granulocytes/100 WBC (Bld) 0.700 % 0.0-0.9 [facility] MCV (mean corpuscular volume ) determinationOrdered By: Conrad Burnett on 10-31-2024 MCV (RBC) [Entitic vol] 94.5 fL High 80-94 [facility] Mean corpuscular hemoglobin (MCH) determinationOrdered By: Conrad Burnett on 10-31-2024 MCH (RBC) [Entitic mass] 30.6 pg 27.0-32.0 [facility] Monocyte percentageOrdered B y: Normastevedavid Cardozasahrakofi on 10-31-2024 Monocytes/100 WBC (Bld) 9.6 % 0-10 [facility] Neutrophil percentageOrdered By: Conrad Cardozasahrakofi on 10-31-2024 Neutrophils/100 WBC (Bld) 72.0 % High 47-70 [facility] No Panel InformationOrdered By: Conrad Burnett on 10-31-2024 30 U/L <38 [facility] Platelet countOrdered By: Godwin Burnett on 10-31-2024 Platelets (Bld) [#/Vol] 391 10*3/uL 150-450 [facility] Potassium measurement (mass/ volume)Ordered By: Conrad Burnett on 10-31-2024 Potassium (Unsp spec) [Mass/Vol] 3.8 mmol/L 3.3-5.1 [facility] RBC Auto (Bld) [#/Vol]Ordere d By: Conrad Burnett on 10-31-2024 RBC (Bld) [#/Vol] 2.91 10*6/uL Low 4.6-6.2 [facility] Serum creatinine measurement (mass/volume)Ordered By: Conrad Burnett on 10-31-2024 Creatinine [Mass/Vol] 4.99 mg/dL High 0.70-1.20 [facility] Serum globulin measurementOr dered By: Conrad Burnett on 10-31-2024 Globulin (S) [Mass/Vol] 2.6 g/dL 2.2-4.2 [facility] Serum glucose measurement (m ass/volume)Ordered By: Conrad Burnett on 10-31-2024 Glucose [Mass/Vol] 122 mg/dL High 70-99 [facility] Serum or plasma alanine gandhi otransferase (ALT) measurementOrdered By: Conrad Burnett on 10-31-2024 ALT [Catalytic activity/Vol] 11 U/L <47 [facility] Serum or plasma albumin makenzie urement (mass/volume)Ordered By: Conrad Burnett on 10-31-2024 Albumin [Mass/Vol] 2.2 g/dL Low 3.4-4.8 [facility] Serum or plasma albumin/glob ulin mass ratioOrdered By: Conrad Burnett on 10-31-2024 Albumin/Globulin [Mass ratio] 0.8 {ratio} Low 0.9-2.4 [facility] Serum or plasma alkaline manju sphatase measurementOrdered By: Conrad Burnett on 10-31-2024 ALP [Catalytic activity/Vol] 76 U/L 40-129 [facility] Serum or plasma calcium makenzie urement (mass/volume)Ordered By: Conrad Burnett on 10-31-2024 Calcium [Mass/Vol] 8.2 mg/dL 7.6-11.0 [facility] Serum or plasma urea nitroge n measurement (mass/volume)Ordered By: Conrad Burnett on 10-31-2024 Urea nitrogen [Mass/Vol] 24 mg/dL High - [facility] Sodium levelOrdered By: Norma Burnett on 10-31-2024 Sodium [Moles/Vol] 142 mmol/L 133-145 [facility] Total proteinOrdered By: Malick Burnett on 10-31-2024 Protein [Mass/Vol] 4.8 g/dL Low 5.9-8.4 [facility] White blood cell (WBC) count Ordered By: Conrad Burnett on 10-31-2024 WBC (Bld) [#/Vol] 13.2 10*3/uL High 4.4-11.0 [facility] Basic Metabolic Profile (BMP )on 10-30-2024 BUN Normal 05-25 [facility] Comment on above: Result Comment: Jennifer mcgovern via OM: Order cancelled - Patient discharged Performed By: #### L 100.0100, L500.2500 ####[facility] [address] [place], [place], [address] BUN/CRE Normal - [facility] Comment on above: Result Comment: Canc elled via OM: Order cancelled - Patient discharged Performed By: #### L 100.0100, L500.2500 ####[facility] [address] [place], [address] Calcium Normal 7.6-11.0 [facility] Comment on above: Result Comment: Canc elled via OM: Order cancelled - Patient discharged Performed By: #### L 100.0100, L500.2500 ####[facility] [address] [place], [address] CL Normal 98-108 [facility] Comment on above: Result Comment: Canc elled via OM: Order cancelled - Patient discharged Performed By: #### L 100.0100, L500.2500 ####[facility] [address] [place], [address] CO2 Normal 21.0-32.0 [facility] Comment on above: Result Comment: Canc elled via OM: Order cancelled - Patient discharged Performed By: #### L 100.0100, L500.2500 ####[facility] [address] [place], [address] CREAT,SERUM Normal 0.70-1.20 [facility] Comment on above: Result Comment: Canc elled via OM: Order cancelled - Patient discharged Performed By: #### L 100.0100, L500.2500 ####[facility] [address] [place], [address] eGFR Normal >60 [facility] Comment on above: Result Comment: Canc elled via OM: Order cancelled - Patient discharged Performed By: #### L 100.0100, L500.2500 ####[facility] [address] [place], [address] GAP Normal 5-15 [facility] Comment on above: Result Comment: Canc elled via OM: Order cancelled - Patient discharged Performed By: #### L 100.0100, L500.2500 ####[facility] [address] [place], [address] GLU Normal 70-99 [facility] Comment on above: Result Comment: Canc elled via OM: Order cancelled - Patient discharged Performed By: #### L 100.0100, L500.2500 ####[facility] [address] [place], [address] Potassium Normal 3.3-5.1 [facility] Comment on above: Result Comment: Canc elled via OM: Order cancelled - Patient discharged Performed By: #### L 100.0100, L500.2500 ####[facility] [address] [place], [address] Basic Metabolic Profile (BMP) Normal 133-145 [facility] Comment on above: Result Comment: Canc elled via OM: Order cancelled - Patient discharged Performed By: #### L 100.0100, L500.2500 ####[facility] [address] [place], [address] CBC W/Diff, Automatedon 09-2 Absolute Neut Normal 2.0-7.7 [facility] Comment on above: Result Comment: Canc elled via OM: Order cancelled - Patient discharged Performed By: #### L 100.0100, L500.2500 ####[facility] [address] [place], [address] HCT Normal 40-54 [facility] Comment on above: Result Comment: Canc elled via OM: Order cancelled - Patient discharged Performed By: #### L 100.0100, L500.2500 ####[facility] [address] [place], [address] HGB Normal 13.0-16.5 [facility] Comment on above: Result Comment: Canc elled via OM: Order cancelled - Patient discharged Performed By: #### L 100.0100, L500.2500 ####[facility] [address] [place], [address] MCH Normal 27.0-32.0 [facility] Comment on above: Result Comment: Canc elled via OM: Order cancelled - Patient discharged Performed By: #### L 100.0100, L500.2500 ####[facility] [address] [place], [address] MCHC Normal 32-36 [facility] Comment on above: Result Comment: Canc elled via OM: Order cancelled - Patient discharged Performed By: #### L 100.0100, L500.2500 ####[facility] [address] [place], [address] MCV Normal 80-94 [facility] Comment on above: Result Comment: Canc elled via OM: Order cancelled - Patient discharged Performed By: #### L 100.0100, L500.2500 ####[facility] [address] [place], [address] NEUT% Normal 47-70 [facility] Comment on above: Result Comment: Canc elled via OM: Order cancelled - Patient discharged Performed By: #### L 100.0100, L500.2500 ####[facility] [address] [place], [address] PLT Normal 150-450 [facility] Comment on above: Result Comment: Canc elled via OM: Order cancelled - Patient discharged Performed By: #### L 100.0100, L500.2500 ####[facility] [address] [place], [address] RBC Normal 4.6-6.2 [facility] Comment on above: Result Comment: Canc elled via OM: Order cancelled - Patient discharged Performed By: #### L 100.0100, L500.2500 ####[facility] [address] [place], [address] RDW CV Normal 11.6-14.6 [facility] Comment on above: Result Comment: Canc elled via OM: Order cancelled - Patient discharged Performed By: #### L 100.0100, L500.2500 ####[facility] [address] [place], [address] RDW SD Normal 35.1-43.9 [facility] Comment on above: Result Comment: Canc elled via OM: Order cancelled - Patient discharged Performed By: #### L 100.0100, L500.2500 ####[facility] [address] [place], [address] WBC Normal 4.4-11.0 [facility] Comment on above: Result Comment: Canc elled via OM: Order cancelled - Patient discharged Performed By: #### L 100.0100, L500.2500 ####[facility] [address] [place], [address] Culture, Blood (WB)on 2024 CUB No growth in 5 days. Normal [facility] Comment on above: Performed By: #### M 200.1000 ####[facility] [address] [place], [address] Absolute lymphocyte countOrd ered By: Rosmery Lake on 10-29-2024 Lymphocytes Auto (Unsp spec) [#/Vol] 1.19 10*3/uL 0.83-4.51 [facility] Activated partial thrombopla stin time (aPTT) in platelet poor plasma by coagulation aOrdered By: Rosmery Lake on 10-29-2024 aPTT Coag (PPP) [Time] 28.4 s 24.1-36.2 [facility] Anion gap in Serum or Plasma Ordered By: Rosmery Lake on 10-29-2024 Anion gap [Moles/Vol] 16 mmol/L High 5-15 [facility] Automated lymphocyte count a s percentage of total leukocytesOrdered By: Rosmery Lake on 10-29-2024 Lymphocytes/100 WBC Auto (Unsp spec) 8.7 % Low 19-41 [facility] BUN/creatinine ratioOrdered By: Rosmery Lake on 10-29-2024 Urea nitrogen/Creatinine [Mass ratio] 7.1 mg/mg Low 10-20 [facility] Basic Metabolic Profile (BMP )on 10-29-2024 BUN/CRE 7.1 RATIO Low 10-20 [facility] Comment on above: Performed By: #### L 500.2500, L100.0100 ####[facility] [address] [place], [address] Calcium [Mass/Vol] 8.7 mg/dL Normal 7.6-11.0 [facility] Comment on above: Performed By: #### L 500.2500, L100.0100 ####[facility] [address] [place], [address] Chloride [Moles/Vol] 107 mmol/L Normal 98-108 [facility] Comment on above: Performed By: #### L 500.2500, L100.0100 ####[facility] [address] [place], [address] CO2 [Moles/Vol] 19.4 mmol/L Low 21.0-32.0 [facility] Comment on above: Performed By: #### L 500.2500, L100.0100 ####[facility] [address] [place], [address] Creatinine [Mass/Vol] 7.99 mg/dL Invalid Interpretation Code 0.70-1.20 [facility] Comment on above: Result Comment: Crit ical Result(s) Called at: 0551 by:??ANA HAGEN Results read back by same. Performed By: #### L 500.2500, L100.0100 ####[facility] [address] [place], [address] ECRCL 9.49 ml/min Invalid Interpretation Code 50-250 [facility] Comment on above: Performed By: #### L 500.2500, L100.0100 ####[facility] [address] [place], [address] GAP 16 High 5-15 [facility] Comment on above: Performed By: #### L 500.2500, L100.0100 ####[facility] [address] [place], [address] GFR/1.73 sq M.predicted among non-blacks MDRD (S/P/Bld) [Vol rate/Area] 7 mL/min/{1.73_m2} Low >60 [facility] Comment on above: Result Comment: mL/m in/1.73m2 CKD-EPI Creatinine Equation (2020) Performed By: #### L 500.2500, L100.0100 ####[facility] [address] [place], [address] Glucose [Mass/Vol] 143 mg/dL High 70-99 [facility] Comment on above: Performed By: #### L 500.2500, L100.0100 ####[facility] [address] [place], [address] Potassium [Moles/Vol] 4.0 mmol/L Normal 3.3-5.1 [facility] Comment on above: Performed By: #### L 500.2500, L100.0100 ####[facility] [address] [place], [address] Sodium [Moles/Vol] 143 mmol/L Normal 133-145 [facility] Comment on above: Performed By: #### L 500.2500, L100.0100 ####[facility] [address] [place], [address] Urea nitrogen [Mass/Vol] 57 mg/dL High 4-19 [facility] Comment on above: Performed By: #### L 500.2500, L100.0100 ####[facility] [address] [place], [address] Basophil percentageOrdered B y: Rosmery Lake on 10-29-2024 Basophils/100 WBC (Bld) 0.8 % 0-1 [facility] Bedside Glucoseon 10-29-2024 FINGERSTICK GLU 106 mg/dL Normal 74-106 [facility] Comment on above: Result Comment: MARKY GEMENT OF PATIENT CARE PER NURSING PROTOCOL Performed By: #### L 501.080 ####[facility] [address] [place], [address] FINGERSTICK GLU 121 mg/dL High 74-106 [facility] Comment on above: Result Comment: MARKY GEMENT OF PATIENT CARE PER NURSING PROTOCOL Performed By: #### L 501.080 ####[facility] [address] [place], [address] FINGERSTICK GLU 130 mg/dL High 74-106 [facility] Comment on above: Result Comment: MARKY GEMENT OF PATIENT CARE PER NURSING PROTOCOL Performed By: #### L 501.080 ####[facility] [address] [place], [address] CBC W/Diff, Automatedon 10-08 Absolute Lymph 1.19 X10 3/uL Normal 0.83-4.51 [facility] Comment on above: Performed By: #### L 500.2500, L100.0100 ####[facility] [address] [place], [address] Absolute Neut 10.9 X10 3/uL High 2.0-7.7 [facility] Comment on above: Performed By: #### L 500.2500, L100.0100 ####[facility] [address] [place], [address] Basophils/100 WBC (Bld) 0.8 % Normal 0-1 [facility] Comment on above: Performed By: #### L 500.2500, L100.0100 ####[facility] [address] [place], [address] Eosinophils/100 WBC (Bld) 3.5 % Normal 0-5 [facility] Comment on above: Performed By: #### L 500.2500, L100.0100 ####[facility] [address] [place], [address] Erythrocyte distribution width (RBC) [Ratio] 14.1 % Normal 11.6-14.6 [facility] Comment on above: Performed By: #### L 500.2500, L100.0100 ####[facility] [address] [place], [address] Hematocrit (Bld) [Volume fraction] 25.3 % Low 40-54 [facility] Comment on above: Performed By: #### L 500.2500, L100.0100 ####[facility] [address] [place], [address] Hemoglobin (Bld) [Mass/Vol] 8.5 g/dL Low 13.0-16.5 [facility] Comment on above: Performed By: #### L 500.2500, L100.0100 ####[facility] [address] [place], [address] IG% 1.200 High 0.0-0.9 [facility] Comment on above: Result Comment: IG% - Immature Granulocytes (promyelocytes, myelocytes andmetamyelocytes) > 1% indicates that a LEFT SHIFT is Present. Performed By: #### L 500.2500, L100.0100 ####[facility] [address] [place], [address] Lymphocytes/100 WBC (Bld) 8.7 % Low 19-41 [facility] Comment on above: Performed By: #### L 500.2500, L100.0100 ####[facility] [address] [place], [address] MCH (RBC) [Entitic mass] 30.7 pg Normal 27.0-32.0 [facility] Comment on above: Performed By: #### L 500.2500, L100.0100 ####[facility] [address] [place], [address] MCHC (RBC) [Mass/Vol] 33.6 g/dL Normal 32-36 [facility] Comment on above: Performed By: #### L 500.2500, L100.0100 ####[facility] [address] [place], [address] MCV (RBC) [Entitic vol] 91.3 fL Normal 80-94 [facility] Comment on above: Performed By: #### L 500.2500, L100.0100 ####[facility] [address] [place], [address] Monocytes/100 WBC (Bld) 6.1 % Normal 0-10 [facility] Comment on above: Performed By: #### L 500.2500, L100.0100 ####[facility] [address] [place], [address] Neutrophils/100 WBC (Bld) 79.7 % High 47-70 [facility] Comment on above: Performed By: #### L 500.2500, L100.0100 ####[facility] [address] [place], [address] Nucleated RBC (Bld) [#/Vol] 0 10*3/uL Normal 0-5 [facility] Comment on above: Performed By: #### L 500.2500, L100.0100 ####[facility] [address] [place], [address] Platelet mean volume (Bld) [Entitic vol] 11.3 fL Normal 6.2-12.0 [facility] Comment on above: Performed By: #### L 500.2500, L100.0100 ####[facility] [address] [place], [address] Platelets (Bld) [#/Vol] 438 10*3/uL Normal 150-450 [facility] Comment on above: Performed By: #### L 500.2500, L100.0100 ####[facility] [address] [place], [address] RBC (Bld) [#/Vol] 2.77 10*6/uL Low 4.6-6.2 [facility] Comment on above: Performed By: #### L 500.2500, L100.0100 ####[facility] [address] [place], [address] RDW SD 46.7 fl High 35.1-43.9 [facility] Comment on above: Performed By: #### L 500.2500, L100.0100 ####[facility] [address] [place], [address] WBC (Bld) [#/Vol] 13.7 10*3/uL High 4.4-11.0 [facility] Comment on above: Performed By: #### L 500.2500, L100.0100 ####[facility] [address] [place], [address] CXR for Line Placementon CXR for Line Placement Normal [facility] Carbon dioxide, total [Moles /volume] in Central venous bloodOrdered By: Rosmery Lake on 10-29-2024 CO2 [Moles/Vol] 19.4 mmol/L Low 21.0-32.0 [facility] Chloride assayOrdered By: Dariela Lake on 10-29-2024 Chloride [Moles/Vol] 107 mmol/L 98-108 [facility] Eosinophil percentageOrdered By: Rosmery Lake on 10-29-2024 Eosinophils/100 WBC (Bld) 3.5 % 0-5 [facility] Erythrocyte distribution wid th ratioOrdered By: Rosmery Lake on 10-29-2024 Erythrocyte distribution width (RBC) [Ratio] 14.1 % 11.6-14.6 [facility] Erythrocyte distribution wid th standard deviationOrdered By: Rosmery Lake on 10-29-2024 Erythrocyte distribution width (RBC) [Ratio] 46.7 fl High 35.1-43.9 [facility] Glomerular filtration rate ( GFR) estimation/1.73 sq m using serum, plasma, or whole bOrdered By: Rosmery Lake on 10-29-2024 GFR/1.73 sq M.predicted among non-blacks MDRD (S/P/Bld) [Vol rate/Area] 7 mL/min/{1.73_m2} Low >60 [facility] deOrdered By: Javon Baldwin on 10-29-2024 Glucose [Mass/Vol] 106 mg/dL 74-106 [facility] Hematocrit Auto (Bld) [Volum e fraction]Ordered By: Rosmery Lake on 10-29-2024 Hematocrit (Bld) [Volume fraction] 25.3 % Low 40-54 [facility] Hemoglobin measurementOrdere d By: Rosmery Lake on 10-29-2024 Hemoglobin (Bld) [Mass/Vol] 8.5 g/dL Low 13.0-16.5 [facility] Immature granulocytes/100 WB C Auto (Bld)Ordered By: Rosmery Lake 10-29-2024 Immature granulocytes/100 WBC (Bld) 1.200 % High 0.0-0.9 [facility] MCV (mean corpuscular volume ) determinationOrdered By: Rosmery Lake on 10-29-2024 MCV (RBC) [Entitic vol] 91.3 fL 80-94 [facility] MR/POSTOP.ANEon 10-29-2024 MR/POSTOP.ANE Normal [facility] MR/[id number] 10-29-2024 MR/POSTOPAN2 Normal [facility] Mean corpuscular hemoglobin (MCH) determinationOrdered By: Rosmery Lake on 10-29-2024 MCH (RBC) [Entitic mass] 30.7 pg 27.0-32.0 [facility] Monocyte percentageOrdered B y: Rosmery Jaya on 10-29-2024 Monocytes/100 WBC (Bld) 6.1 % 0-10 [facility] Neutrophil percentageOrdered By: Rosmery Lake on 10-29-2024 Neutrophils/100 WBC (Bld) 79.7 % High 47-70 [facility] Operative Reporton Operative Report Normal [facility] Partial Thromboplast Timeon 10-29-2024 aPTT Coag (Bld) [Time] 28.4 s Normal 24.1-36.2 [facility] Comment on above: Performed By: #### L 300.4852 ####[facility] [address] [place], [place], [address] Platelet countOrdered By: Dariela Lake on 10-29-2024 Platelets (Bld) [#/Vol] 438 10*3/uL 150-450 [facility] Potassium measurement (mass/ volume)Ordered By: Rosmery Lake on 10-29-2024 Potassium (Unsp spec) [Mass/Vol] 4.0 mmol/L 3.3-5.1 [facility] System RBC Auto (Bld) [#/Vol]Ordere d By: Rosmery Lake on 10-29-2024 RBC (Bld) [#/Vol] 2.77 10*6/uL Low 4.6-6.2 [facility] Serum creatinine measurement (mass/volume)Ordered By: Rosmery Lake on 10-29-2024 Creatinine [Mass/Vol] 7.99 mg/dL Critically high 0.70-1.20 [facility] Serum glucose measurement (m ass/volume)Ordered By: Rosmery Lake on 10-29-2024 Glucose [Mass/Vol] 143 mg/dL High 70-99 [facility] Serum or plasma calcium makenzie urement (mass/volume)Ordered By: Rosmery Lake on 10-29-2024 Calcium [Mass/Vol] 8.7 mg/dL 7.6-11.0 [facility] Serum or plasma urea nitroge n measurement (mass/volume)Ordered By: Rosmery Lake on 10-29-2024 Urea nitrogen [Mass/Vol] 57 mg/dL High 4-19 [facility] Sodium levelOrdered By: Rosmery Lake on 10-29-2024 Sodium [Moles/Vol] 143 mmol/L 133-145 [facility] White blood cell (WBC) count Ordered By: Rosmery Lake on 10-29-2024 WBC (Bld) [#/Vol] 13.7 10*3/uL High 4.4-11.0 [facility] Basic Metabolic Profile (BMP )on 10-28-2024 BUN/CRE 7.4 RATIO Low 10-20 [facility] Comment on above: Performed By: #### L 500.2500, L100.0100 ####[facility] [address] [place], [address] Calcium [Mass/Vol] 8.8 mg/dL Normal 7.6-11.0 [facility] Comment on above: Performed By: #### L 500.2500, L100.0100 ####[facility] [address] [place], [address] Chloride [Moles/Vol] 104 mmol/L Normal 98-108 [facility] Comment on above: Performed By: #### L 500.2500, L100.0100 ####[facility] [address] [place], [address] CO2 [Moles/Vol] 19.0 mmol/L Low 21.0-32.0 [facility] Comment on above: Performed By: #### L 500.2500, L100.0100 ####[facility] [address] [place], [address] Creatinine [Mass/Vol] 7.71 mg/dL Invalid Interpretation Code 0.70-1.20 [facility] Comment on above: Result Comment: Crit ical Result(s) Called at 0632: by: TRISTIN LOO. ??Results read back by same. Performed By: #### L 500.2500, L100.0100 ####[facility] [address] [place], [address] ECRCL 9.84 ml/min Invalid Interpretation Code 50-250 [facility] Comment on above: Performed By: #### L 500.2500, L100.0100 ####[facility] [address] [place], [address] GAP 17 High 5-15 [facility] Comment on above: Performed By: #### L 500.2500, L100.0100 ####[facility] [address] [place], [address] GFR/1.73 sq M.predicted among non-blacks MDRD (S/P/Bld) [Vol rate/Area] 7 mL/min/{1.73_m2} Low >60 [facility] Comment on above: Result Comment: mL/m in/1.73m2 CKD-EPI Creatinine Equation (2020) Performed By: #### L 500.2500, L100.0100 ####[facility] [address] [place], [address] Glucose [Mass/Vol] 147 mg/dL High 70-99 [facility] Comment on above: Performed By: #### L 500.2500, L100.0100 ####[facility] [address] [place], [address] Potassium [Moles/Vol] 3.9 mmol/L Normal 3.3-5.1 [facility] Comment on above: Performed By: #### L 500.2500, L100.0100 ####[facility] [address] [place], [address] Sodium [Moles/Vol] 140 mmol/L Normal 133-145 [facility] Comment on above: Performed By: #### L 500.2500, L100.0100 ####[facility] [address] [place], [address] Urea nitrogen [Mass/Vol] 57 mg/dL High 4-19 [facility] Comment on above: Performed By: #### L 500.2500, L100.0100 ####[facility] [address] [place], [address] Bedside Glucoseon 10-28-2024 FINGERSTICK GLU 150 mg/dL High 74-106 [facility] Comment on above: Result Comment: MARKY GEMENT OF PATIENT CARE PER NURSING PROTOCOL Performed By: #### L 501.080 ####[facility] [address] [place], [address] FINGERSTICK GLU 191 mg/dL High 74-106 [facility] Comment on above: Result Comment: MARKY GEMENT OF PATIENT CARE PER NURSING PROTOCOL Performed By: #### L 501.080 ####[facility] [address] [place], [address] FINGERSTICK GLU 218 mg/dL High 74-106 [facility] Comment on above: Result Comment: MARKY GEMENT OF PATIENT CARE PER NURSING PROTOCOL Performed By: #### L 501.080 ####[facility] [address] [place], [address] CBC W/Diff, Automatedon 10-08 Absolute Lymph 1.87 X10 3/uL Normal 0.83-4.51 [facility] Comment on above: Performed By: #### L 500.2500, L100.0100 ####[facility] [address] [place], [address] Absolute Neut 11.4 X10 3/uL High 2.0-7.7 [facility] Comment on above: Performed By: #### L 500.2500, L100.0100 ####[facility] [address] [place], [address] Basophils/100 WBC (Bld) 0.7 % Normal 0-1 [facility] Comment on above: Performed By: #### L 500.2500, L100.0100 ####[facility] [address] [place], [address] Eosinophils/100 WBC (Bld) 4.0 % Normal 0-5 [facility] Comment on above: Performed By: #### L 500.2500, L100.0100 ####[facility] [address] [place], [address] Erythrocyte distribution width (RBC) [Ratio] 13.8 % Normal 11.6-14.6 [facility] Comment on above: Performed By: #### L 500.2500, L100.0100 ####[facility] [address] [place], [address] Hematocrit (Bld) [Volume fraction] 26.3 % Low 40-54 [facility] Comment on above: Performed By: #### L 500.2500, L100.0100 ####[facility] [address] [place], [address] Hemoglobin (Bld) [Mass/Vol] 8.8 g/dL Low 13.0-16.5 [facility] Comment on above: Performed By: #### L 500.2500, L100.0100 ####[facility] [address] [place], [address] IG% 2.700 High 0.0-0.9 [facility] Comment on above: Result Comment: IG% - Immature Granulocytes (promyelocytes, myelocytes andmetamyelocytes) > 1% indicates that a LEFT SHIFT is Present. Performed By: #### L 500.2500, L100.0100 ####[facility] [address] [place], [address] Lymphocytes/100 WBC (Bld) 12.1 % Low 19-41 [facility] Comment on above: Performed By: #### L 500.2500, L100.0100 ####[facility] [address] [place], [address] MCH (RBC) [Entitic mass] 30.6 pg Normal 27.0-32.0 [facility] Comment on above: Performed By: #### L 500.2500, L100.0100 ####[facility] [address] [place], [address] MCHC (RBC) [Mass/Vol] 33.5 g/dL Normal 32-36 [facility] Comment on above: Performed By: #### L 500.2500, L100.0100 ####[facility] [address] [place], [address] MCV (RBC) [Entitic vol] 91.3 fL Normal 80-94 [facility] Comment on above: Performed By: #### L 500.2500, L100.0100 ####[facility] [address] [place], [address] Monocytes/100 WBC (Bld) 6.2 % Normal 0-10 [facility] Comment on above: Performed By: #### L 500.2500, L100.0100 ####[facility] [address] [place], [address] Neutrophils/100 WBC (Bld) 74.3 % High 47-70 [facility] Comment on above: Performed By: #### L 500.2500, L100.0100 ####[facility] [address] [place], [address] Nucleated RBC (Bld) [#/Vol] 0 10*3/uL Normal 0-5 [facility] Comment on above: Performed By: #### L 500.2500, L100.0100 ####[facility] [address] [place], [address] Platelet mean volume (Bld) [Entitic vol] 11.2 fL Normal 6.2-12.0 [facility] Comment on above: Performed By: #### L 500.2500, L100.0100 ####[facility] [address] [place], [address] Platelets (Bld) [#/Vol] 442 10*3/uL Normal 150-450 [facility] Comment on above: Performed By: #### L 500.2500, L100.0100 ####[facility] [address] [place], [address] RBC (Bld) [#/Vol] 2.88 10*6/uL Low 4.6-6.2 [facility] Comment on above: Performed By: #### L 500.2500, L100.0100 ####[facility] [address] [place], [address] RDW SD 45.0 fl High 35.1-43.9 [facility] Comment on above: Performed By: #### L 500.2500, L100.0100 ####[facility] [address] [place], [address] WBC (Bld) [#/Vol] 15.4 10*3/uL High 4.4-11.0 [facility] Comment on above: Performed By: #### L 500.2500, L100.0100 ####[facility] [address] [place], [address] Partial Thromboplast Timeon 10-28-2024 aPTT Coag (Bld) [Time] 60.4 s High 24.1-36.2 [facility] Comment on above: Performed By: #### L 300.4310 ####[facility] [address] [place], [address] Basic Metabolic Profile (BMP )on 10-27-2024 BUN/CRE 7.7 RATIO Low 10-20 [facility] Comment on above: Performed By: #### L 500.2500, L100.0100 ####[facility] [address] [place], [address] Calcium [Mass/Vol] 8.7 mg/dL Normal 7.6-11.0 [facility] Comment on above: Performed By: #### L 500.2500, L100.0100 ####[facility] [address] [place], [address] Chloride [Moles/Vol] 104 mmol/L Normal 98-108 [facility] Comment on above: Performed By: #### L 500.2500, L100.0100 ####[facility] [address] [place], [address] CO2 [Moles/Vol] 19.8 mmol/L Low 21.0-32.0 [facility] Comment on above: Performed By: #### L 500.2500, L100.0100 ####[facility] [address] [place], [address] Creatinine [Mass/Vol] 7.51 mg/dL Invalid Interpretation Code 0.70-1.20 [facility] Comment on above: Result Comment: Crit ical Result(s) Called at 0456: by: TRISTIN ESTRADA. ??Results read back by same. Performed By: #### L 500.2500, L100.0100 ####[facility] [address] [place], [address] ECRCL 10.10 ml/min Low 50-250 [facility] Comment on above: Performed By: #### L 500.2500, L100.0100 ####[facility] [address] [place], [address] GAP 16 High 5-15 [facility] Comment on above: Performed By: #### L 500.2500, L100.0100 ####[facility] [address] [place], [address] GFR/1.73 sq M.predicted among non-blacks MDRD (S/P/Bld) [Vol rate/Area] 7 mL/min/{1.73_m2} Low >60 [facility] Comment on above: Result Comment: mL/m in/1.73m2 CKD-EPI Creatinine Equation (2020) Performed By: #### L 500.2500, L100.0100 ####[facility] [address] [place], [address] Glucose [Mass/Vol] 148 mg/dL High 70-99 [facility] Comment on above: Performed By: #### L 500.2500, L100.0100 ####[facility] [address] [place], [address] Potassium [Moles/Vol] 3.6 mmol/L Normal 3.3-5.1 [facility] Comment on above: Performed By: #### L 500.2500, L100.0100 ####[facility] [address] [place], [address] Sodium [Moles/Vol] 139 mmol/L Normal 133-145 [facility] Comment on above: Performed By: #### L 500.2500, L100.0100 ####[facility] [address] [place], [address] Urea nitrogen [Mass/Vol] 58 mg/dL High 4-19 [facility] Comment on above: Performed By: #### L 500.2500, L100.0100 ####[facility] [address] [place], [address] Bedside Glucoseon 10-27-2024 FINGERSTICK GLU 189 mg/dL High 74-106 [facility] Comment on above: Result Comment: MARKY PATEL OF PATIENT CARE PER NURSING PROTOCOL Performed By: #### L 501.080 ####[facility] [address] [place], [address] FINGERSTICK GLU 136 mg/dL High 74-106 [facility] Comment on above: Result Comment: MARKY GEMENT OF PATIENT CARE PER NURSING PROTOCOL Performed By: #### L 501.080 ####[facility] [address] [place], [address] FINGERSTICK GLU 183 mg/dL High 74-106 [facility] Comment on above: Result Comment: MARKY GEMENT OF PATIENT CARE PER NURSING PROTOCOL Performed By: #### L 501.080 ####[facility] [address] [place], [address] FINGERSTICK GLU 145 mg/dL High 74-106 [facility] Comment on above: Result Comment: MARKY GEMENT OF PATIENT CARE PER NURSING PROTOCOL Performed By: #### L 501.080 ####[facility] [address] [place], [address] CBC W/Diff, Automatedon -03 09-2024 Absolute Lymph 2.25 X10 3/uL Normal 0.83-4.51 [facility] Comment on above: Performed By: #### L 500.2500, L100.0100 ####[facility] [address] [place], [address] Absolute Neut 12.9 X10 3/uL High 2.0-7.7 [facility] Comment on above: Performed By: #### L 500.2500, L100.0100 ####[facility] [address] [place], [address] Basophils/100 WBC (Bld) 0.8 % Normal 0-1 [facility] Comment on above: Performed By: #### L 500.2500, L100.0100 ####[facility] [address] [place], [address] Eosinophils/100 WBC (Bld) 3.8 % Normal 0-5 [facility] Comment on above: Performed By: #### L 500.2500, L100.0100 ####[facility] [address] [place], [address] Erythrocyte distribution width (RBC) [Ratio] 13.9 % Normal 11.6-14.6 [facility] Comment on above: Performed By: #### L 500.2500, L100.0100 ####[facility] [address] [place], [address] Hematocrit (Bld) [Volume fraction] 26.9 % Low 40-54 [facility] Comment on above: Performed By: #### L 500.2500, L100.0100 ####[facility] [address] [place], [address] Hemoglobin (Bld) [Mass/Vol] 8.9 g/dL Low 13.0-16.5 [facility] Comment on above: Performed By: #### L 500.2500, L100.0100 ####[facility] [address] [place], [address] IG% 4.300 High 0.0-0.9 [facility] Comment on above: Result Comment: IG% - Immature Granulocytes (promyelocytes, myelocytes andmetamyelocytes) > 1% indicates that a LEFT SHIFT is Present. Performed By: #### L 500.2500, L100.0100 ####[facility] [address] [place], [address] Lymphocytes/100 WBC (Bld) 12.7 % Low 19-41 [facility] Comment on above: Performed By: #### L 500.2500, L100.0100 ####[facility] [address] [place], [address] MCH (RBC) [Entitic mass] 30.2 pg Normal 27.0-32.0 [facility] Comment on above: Performed By: #### L 500.2500, L100.0100 ####[facility] [address] [place], [address] MCHC (RBC) [Mass/Vol] 33.1 g/dL Normal 32-36 [facility] Comment on above: Performed By: #### L 500.2500, L100.0100 ####[facility] [address] [place], [address] MCV (RBC) [Entitic vol] 91.2 fL Normal 80-94 [facility] Comment on above: Performed By: #### L 500.2500, L100.0100 ####[facility] [address] [place], [address] Monocytes/100 WBC (Bld) 5.9 % Normal 0-10 [facility] Comment on above: Performed By: #### L 500.2500, L100.0100 ####[facility] [address] [place], [address] Neutrophils/100 WBC (Bld) 72.5 % High 47-70 [facility] Comment on above: Performed By: #### L 500.2500, L100.0100 ####[facility] [address] [place], [address] Nucleated RBC (Bld) [#/Vol] 0 10*3/uL Normal 0-5 [facility] Comment on above: Performed By: #### L 500.2500, L100.0100 ####[facility] [address] [place], [address] Platelet mean volume (Bld) [Entitic vol] 10.7 fL Normal 6.2-12.0 [facility] Comment on above: Performed By: #### L 500.2500, L100.0100 ####[facility] [address] [place], [address] Platelets (Bld) [#/Vol] 397 10*3/uL Normal 150-450 [facility] Comment on above: Performed By: #### L 500.2500, L100.0100 ####[facility] [address] [place], [address] RBC (Bld) [#/Vol] 2.95 10*6/uL Low 4.6-6.2 [facility] Comment on above: Performed By: #### L 500.2500, L100.0100 ####[facility] [address] [place], [address] RDW SD 46.5 fl High 35.1-43.9 [facility] Comment on above: Performed By: #### L 500.2500, L100.0100 ####[facility] [address] [place], [address] WBC (Bld) [#/Vol] 17.7 10*3/uL High 4.4-11.0 [facility] Comment on above: Performed By: #### L 500.2500, L100.0100 ####[facility] [address] [place], [address] Partial Thromboplast Timeon 10-27-2024 aPTT Coag (Bld) [Time] 62.8 s High 24.1-36.2 [facility] Comment on above: Performed By: #### L 300.4310 ####[facility] [address] [place], [address] aPTT Coag (Bld) [Time] 67.2 s High 24.1-36.2 [facility] Comment on above: Performed By: #### L 300.4310 ####[facility] [address] [place], [address] aPTT Coag (Bld) [Time] 85.5 s High 24.1-36.2 [facility] Comment on above: Performed By: #### L 300.4310 ####[facility] [address] [place], [address] Urine Cultureon 10-27-2024 URC Culture exhibits no growth. Normal [facility] Comment on above: Performed By: #### M 100.2200 ####[facility] [address] [place], [address] Basic Metabolic Profile (BMP )on 10-26-2024 BUN/CRE 7.9 RATIO Low 10-20 [facility] Comment on above: Performed By: #### L 500.2500, L100.0100 ####[facility] [address] [place], [address] Calcium [Mass/Vol] 8.5 mg/dL Normal 7.6-11.0 [facility] Comment on above: Performed By: #### L 500.2500, L100.0100 ####[facility] [address] [place], [address] Chloride [Moles/Vol] 106 mmol/L Normal 98-108 [facility] Comment on above: Performed By: #### L 500.2500, L100.0100 ####[facility] [address] [place], [address] CO2 [Moles/Vol] 18.5 mmol/L Low 21.0-32.0 [facility] Comment on above: Performed By: #### L 500.2500, L100.0100 ####[facility] [address] [place], [address] Creatinine [Mass/Vol] 7.44 mg/dL Invalid Interpretation Code 0.70-1.20 [facility] Comment on above: Performed By: #### L 500.2500, L100.0100 ####[facility] [address] [place], [address] ECRCL 10.20 ml/min Low 50-250 [facility] Comment on above: Performed By: #### L 500.2500, L100.0100 ####[facility] [address] [place], [address] GAP 15 Normal 5-15 [facility] Comment on above: Performed By: #### L 500.2500, L100.0100 ####[facility] [address] [place], [address] GFR/1.73 sq M.predicted among non-blacks MDRD (S/P/Bld) [Vol rate/Area] 7 mL/min/{1.73_m2} Low >60 [facility] Comment on above: Result Comment: mL/m in/1.73m2 CKD-EPI Creatinine Equation (2020) Performed By: #### L 500.2500, L100.0100 ####[facility] [address] [place], [address] Glucose [Mass/Vol] 173 mg/dL High 70-99 [facility] Comment on above: Performed By: #### L 500.2500, L100.0100 ####[facility] [address] [place], [address] Potassium [Moles/Vol] 3.7 mmol/L Normal 3.3-5.1 [facility] Comment on above: Performed By: #### L 500.2500, L100.0100 ####[facility] [address] [place], [address] Sodium [Moles/Vol] 139 mmol/L Normal 133-145 [facility] Comment on above: Performed By: #### L 500.2500, L100.0100 ####[facility] [address] [place], [address] Urea nitrogen [Mass/Vol] 59 mg/dL High 4-19 [facility] Comment on above: Performed By: #### L 500.2500, L100.0100 ####[facility] [address] [place], [address] Bedside Glucoseon 10-26-2024 FINGERSTICK GLU 187 mg/dL High 74-106 [facility] Comment on above: Result Comment: MARKY GEMENT OF PATIENT CARE PER NURSING PROTOCOL Performed By: #### L 501.080 ####[facility] [address] [place], [address] FINGERSTICK GLU 180 mg/dL High [facility]106 [facility] Comment on above: Result Comment: MARKY GEMENT OF PATIENT CARE PER NURSING PROTOCOL Performed By: #### L 501.080 ####[facility] [address] [place], [address] FINGERSTICK GLU 196 mg/dL High [address] [place] [address] Comment on above: Result Comment: MARKY GEMENT OF PATIENT CARE PER NURSING PROTOCOL Performed By: #### L 501.080 ####[facility] [address] [place], [address] FINGERSTICK GLU 141 mg/dL High [address] [place] [address] Comment on above: Result Comment: MARKY GEMENT OF PATIENT CARE PER NURSING PROTOCOL Performed By: #### L 501.080 ####[facility] [address] [place], [address] Blood band neutrophil count as percentage of total leukocytesOrdered By: Rosmery Lake on 10-26-2024 Band form neutrophils/100 WBC (Bld) 2 % 0-5 [facility] Blood eosinophils/100 leukoc ytesOrdered By: Rosmery Lake on 10-26-2024 Eosinophils/100 WBC (Bld) 2 % 0-5 [facility] Blood lymphocytes/100 leukoc ytesOrdered By: Rosmery Lake on 10-26-2024 Lymphocytes/100 WBC (Bld) 15 % Low 19-41 [facility] Blood metamyelocytes/100 petty kocytesOrdered By: Rosmery Lake on 10-26-2024 Metamyelocytes/100 WBC (Bld) 2 % High 0-1 [facility] Blood monocytes/100 leukocyt esOrdered By: Rosmery Lake on 10-26-2024 Monocytes/100 WBC (Bld) 4 % 0-10 [facility] Blood segmented neutrophils/ 100 leukocytesOrdered By: Rosmery Lake on 10-26-2024 Segmented neutrophils/100 WBC (Bld) 74 % High 47-70 [facility] CBC W/Diff, Automatedon 10-08 Absolute Lymph 2.69 X10 3/uL Normal 0.83-4.51 [facility] Comment on above: Performed By: #### L 500.2500, L100.0100 ####[facility] [address] [place], [address] Absolute Neut 13.6 X10 3/uL High 2.0-7.7 [facility] Comment on above: Performed By: #### L 500.2500, L100.0100 ####[facility] [address] [place], [address] Absolute Neut Normal 2.0-7.7 [facility] Comment on above: Result Comment: DUPL ICATE ORDER Performed By: #### L 100.0100 ####[facility] [address] [place], [address] HCT Normal 40-54 [facility] Comment on above: Result Comment: DUPL ICATE ORDER Performed By: #### L 100.0100 ####[facility] [address] [place], [address] HGB Normal 13.0-16.5 [facility] Comment on above: Result Comment: DUPL ICATE ORDER Performed By: #### L 100.0100 ####[facility] [address] [place], [address] MCH Normal 27.0-32.0 [facility] Comment on above: Result Comment: DUPL ICATE ORDER Performed By: #### L 100.0100 ####[facility] [address] [place], [address] MCHC Normal 32-36 [facility] Comment on above: Result Comment: DUPL ICATE ORDER Performed By: #### L 100.0100 ####[facility] [address] [place], [address] MCV Normal 80-94 [facility] [facility] Comment on above: Result Comment: DUPL ICATE ORDER Performed By: #### L 100.0100 ####[facility] [address] [place], [address] NEUT% Normal 47-70 [facility] Comment on above: Result Comment: DUPL ICATE ORDER Performed By: #### L 100.0100 ####[facility] [address] [place], [address] PLT Normal 150-450 [facility] Comment on above: Result Comment: DUPL ICATE ORDER Performed By: #### L 100.0100 ####[facility] [address] [place], [address] RBC Normal 4.6-6.2 [facility] Comment on above: Result Comment: DUPL ICATE ORDER Performed By: #### L 100.0100 ####[facility] [address] [place], [address] RDW CV Normal 11.6-14.6 [facility] Comment on above: Result Comment: DUPL ICATE ORDER Performed By: #### L 100.0100 ####[facility] [address] [place], [address] RDW SD Normal 35.1-43.9 [facility] Comment on above: Result Comment: DUPL ICATE ORDER Performed By: #### L 100.0100 ####[facility] [address] [place], [address] WBC Normal 4.4-11.0 [facility] Comment on above: Result Comment: DUPL ICATE ORDER Performed By: #### L 100.0100 ####[facility] [address] [place], [address] CT Chest, Abd, Pelvis WO Con ton 10-26-2024 CT Chest, Abd, Pelvis WO Cont Normal [facility] Partial Thromboplast Timeon 10-26-2024 aPTT Coag (Bld) [Time] 73.6 s High 24.1-36.2 [facility] Comment on above: Performed By: #### L 300.4310 ####[facility] [address] [place], [address] aPTT Coag (Bld) [Time] 50.3 s High 24.1-36.2 [facility] Comment on above: Performed By: #### L 300.4310 ####[facility] [address] [place], [address] aPTT Coag (Bld) [Time] 56.4 s High 24.1-36.2 [facility] Comment on above: Performed By: #### L 300.4310 ####[facility] [address] [place], [address] aPTT Coag (Bld) [Time] 42.9 s High 24.1-36.2 [facility] Comment on above: Order Comment: Comme nts: heparin gtt Performed By: #### L 300.4310 ####[facility] [address] [place], [address] Platelet estimateOrdered By: Rosmery Lake on 10-26-2024 Platelets LM Ql (Bld) ADEQUATE ADEQ [facility] Platelet morphologyOrdered B y: Rosmery Lake on 10-26-2024 Platelet morphology finding Nom (Bld) GIANT [facility] Total cell countOrdered By: Rosmery Lake on 10-26-2024 Cells counted Molgen (Bld/Tiss) [#] 100 MANUAL DIFF [facility] Urine cultureOrdered By: Yael Lake on 10-26-2024 Bacteria identified Cx Nom (U) Culture exhibits no growth. [facility] ANCAon 10-25-2024 Atypical pANCA <1:20 Normal Neg:<1:20 [facility] Comment on above: Result Comment: The atypical pANCA pattern has been observed in asignificant percentage of patients with ulcerative colitis,primary sclerosing cholangitis and autoimmune hepatitis. Performed By: #### L 3400.4200, L3100.3450, L3100.5700, L3300.1200, L3100.5800 ####[facility] [address] [place], [place], [address] Cytoplasmic Ab <1:20 Normal Neg:<1:20 [facility] Comment on above: Performed By: #### L 3400.4200, L3100.3450, L3100.5700, L3300.1200, L3100.5800 ####[facility] [address] [place], [address] Perinuclear Ab. <1:20 Normal Neg:<1:20 [facility] Comment on above: Result Comment: The presence of positive fluorescence exhibiting P-ANCA orC-ANCA patterns alone is not specific for the diagnosis ofWegener's Granulomatosis (WG) or microscopic polyangiitis.Decisions about treatment should not be based solely onANCA IFA results. The International ANCA Group Consensusrecommends follow up testing of positive sera with both NE-3 and MPO-ANCA enzyme immunoassays. As many as 5% serumsamples are positive only by EIA. Ref. AM J Clin Dvngfs6124;111:507-513. Performed By: #### L 3400.4200, L3100.3450, L3100.5700, L3300.1200, L3100.5800 ####[facility] [address] [place], [address] Anti-Glomerular Basement Mem bon 10-25-2024 ANTI-GLOM BM Ab < 0.2 Normal 0.0-0.9 [facility] Comment on above: Result Comment: Perf ormed at: - [facility] [id number] Director: Krystian Oliver PhD, Phone: [phone] at: [address] [id number] Director: Julian Miller MD, Phone: [phone] Performed By: #### L 3400.4200, L3100.3450, L3100.5700, L3300.1200, L3100.5800 ####[facility] [address] [place], [address] Basic Metabolic Profile (BMP )on 10-25-2024 BUN/CRE 8.4 RATIO Low 10-20 [facility] Comment on above: Performed By: #### L 100.0100, L500.2500 ####[facility] [address] [place], [address] Calcium [Mass/Vol] 8.5 mg/dL Normal 7.6-11.0 [facility] Comment on above: Performed By: #### L 100.0100, L500.2500 ####[facility] [address] [place], [address] Chloride [Moles/Vol] 107 mmol/L Normal 98-108 [facility] Comment on above: Performed By: #### L 100.0100, L500.2500 ####[facility] [address] [place], [address] CO2 [Moles/Vol] 21.5 mmol/L Normal 21.0-32.0 [facility] Comment on above: Performed By: #### L 100.0100, L500.2500 ####[facility] [address] [place], [address] Creatinine [Mass/Vol] 6.53 mg/dL High 0.70-1.20 [facility] Comment on above: Performed By: #### L 100.0100, L500.2500 ####[facility] [address] [place], [address] ECRCL 11.62 ml/min Low 50-250 [facility] Comment on above: Performed By: #### L 100.0100, L500.2500 ####[facility] [address] [place], [address] GAP 14 Normal 5-15 [facility] Comment on above: Performed By: #### L 100.0100, L500.2500 ####[facility] [address] [place], [address] GFR/1.73 sq M.predicted among non-blacks MDRD (S/P/Bld) [Vol rate/Area] 8 mL/min/{1.73_m2} Low >60 [facility] Comment on above: Result Comment: mL/m in/1.73m2 CKD-EPI Creatinine Equation (2020) Performed By: #### L 100.0100, L500.2500 ####[facility] [address] [place], [address] Glucose [Mass/Vol] 164 mg/dL High 70-99 [facility] Comment on above: Performed By: #### L 100.0100, L500.2500 ####[facility] [address] [place], [address] Potassium [Moles/Vol] 3.4 mmol/L Normal 3.3-5.1 [facility] Comment on above: Performed By: #### L 100.0100, L500.2500 ####[facility] [address] [place], [address] Sodium [Moles/Vol] 142 mmol/L Normal 133-145 [facility] Comment on above: Performed By: #### L 100.0100, L500.2500 ####[facility] [address] [place], [address] Urea nitrogen [Mass/Vol] 55 mg/dL High 4-19 [facility] Comment on above: Performed By: #### L 100.0100, L500.2500 ####[facility] [address] [place], [address] Bedside Glucoseon 10-25-2024 FINGERSTICK GLU 148 mg/dL High 74-106 [facility] Comment on above: Result Comment: MARKY GEMENT OF PATIENT CARE PER NURSING PROTOCOL Performed By: #### L 501.080 ####[facility] [address] [place], [address] FINGERSTICK GLU 257 mg/dL High 74-106 [facility] Comment on above: Result Comment: MARKY GEMENT OF PATIENT CARE PER NURSING PROTOCOL Performed By: #### L 501.080 ####[facility] [address] [place], [address] FINGERSTICK GLU 183 mg/dL High 74-106 [facility] Comment on above: Result Comment: MARKY GEMENT OF PATIENT CARE PER NURSING PROTOCOL Performed By: #### L 501.080 ####[facility] [address] [place], [address] FINGERSTICK GLU 142 mg/dL High 74-106 [facility] Comment on above: Result Comment: MARKY GEMENT OF PATIENT CARE PER NURSING PROTOCOL Performed By: #### L 501.080 ####[facility] [address] [place], [address] Bilirubin Test strip Ql (U)O rdered By: Cece Dennis on 10-25-2024 Bilirubin Ql (U) Negative Negative [facility] Blood cultureOrdered By: Tera Dennis on 10-25-2024 Bacteria identified Cx Nom (Bld) No growth in 5 days. [facility] CBC W/Diff, Automatedon 10-07 Absolute Neut Normal 2.0-7.7 [facility] Comment on above: Order Comment: Comme nts: If not done in prior 24 hours Result Comment: Canc elled via OM: Duplicate Order Performed By: #### L 100.0100 ####[facility] [address] [place], [address] HCT Normal 40-54 [facility] Comment on above: Order Comment: Comme nts: If not done in prior 24 hours Result Comment: Canc elled via OM: Duplicate Order Performed By: #### L 100.0100 ####[facility] [address] [place], [address] HGB Normal 13.0-16.5 [facility] Comment on above: Order Comment: Comme nts: If not done in prior 24 hours Result Comment: Canc elled via OM: Duplicate Order Performed By: #### L 100.0100 ####[facility] [address] [place], [address] MCH Normal 27.0-32.0 [facility] Comment on above: Order Comment: Comme nts: If not done in prior 24 hours Result Comment: Canc elled via OM: Duplicate Order Performed By: #### L 100.0100 ####[facility] [address] [place], [address] MCHC Normal 32-36 [facility] Comment on above: Order Comment: Comme nts: If not done in prior 24 hours Result Comment: Canc elled via OM: Duplicate Order Performed By: #### L 100.0100 ####[facility] [address] [place], [address] MCV Normal 80-94 [facility] Comment on above: Order Comment: Comme nts: If not done in prior 24 hours Result Comment: Canc elled via OM: Duplicate Order Performed By: #### L 100.0100 ####[facility] [address] [place], [address] NEUT% Normal 47-70 [facility] Comment on above: Order Comment: Comme nts: If not done in prior 24 hours Result Comment: Canc elled via OM: Duplicate Order Performed By: #### L 100.0100 ####[facility] [address] [place], [address] PLT Normal 150-450 [facility] Comment on above: Order Comment: Comme nts: If not done in prior 24 hours Result Comment: Canc elled via OM: Duplicate Order Performed By: #### L 100.0100 ####[facility] [address] [place], [address] RBC Normal 4.6-6.2 [facility] Comment on above: Order Comment: Comme nts: If not done in prior 24 hours Result Comment: Canc elled via OM: Duplicate Order Performed By: #### L 100.0100 ####[facility] [address] [place], [address] RDW CV Normal 11.6-14.6 [facility] Comment on above: Order Comment: Comme nts: If not done in prior 24 hours Result Comment: Canc elled via OM: Duplicate Order Performed By: #### L 100.0100 ####[facility] [address] [place], [address] RDW SD Normal 35.1-43.9 [facility] Comment on above: Order Comment: Comme nts: If not done in prior 24 hours Result Comment: Canc elled via OM: Duplicate Order Performed By: #### L 100.0100 ####[facility] [address] [place], [address] WBC Normal 4.4-11.0 [facility] Comment on above: Order Comment: Comme nts: If not done in prior 24 hours Result Comment: Canc elled via OM: Duplicate Order Performed By: #### L 100.0100 ####[facility] [address] [place], [address] Absolute Lymph 2.06 X10 3/uL Normal 0.83-4.51 [facility] Comment on above: Performed By: #### L 100.0100, L500.2500 ####[facility] [address] [place], [address] Absolute Neut 11.8 X10 3/uL High 2.0-7.7 [facility] Comment on above: Performed By: #### L 100.0100, L500.2500 ####[facility] [address] [place], [address] RED CELL MORPH NORM C+C Normal NORM C C [facility] Comment on above: Performed By: #### L 100.0100, L500.2500 ####[facility] [address] [place], [address] Eosinophils/100 WBC (Bld) 3 % Normal 0-5 [facility] Comment on above: Performed By: #### L 100.0100, L500.2500 ####[facility] [address] [place], [address] Lymphocytes (Bld) [#/Vol] 14 10*3/uL Low 19-41 [facility] Comment on above: Performed By: #### L 100.0100, L500.2500 ####[facility] [address] [place], [address] Metamyelocytes/100 WBC (Bld) 1 % High 0-0 [facility] Comment on above: Performed By: #### L 100.0100, L500.2500 ####[facility] [address] [place], [address] MONOCYTE 2 Normal 0-10 [facility] Comment on above: Performed By: #### L 100.0100, L500.2500 ####[facility] [address] [place], [address] PLT EST ADEQUATE Normal ADEQ [facility] Comment on above: Performed By: #### L 100.0100, L500.2500 ####[facility] [address] [place], [address] SEGS 80 High 47-70 [facility] Comment on above: Performed By: #### L 100.0100, L500.2500 ####[facility] [address] [place], [address] TOTAL CELLS 100 Normal MANUAL DIFF [facility] Comment on above: Performed By: #### L 100.0100, L500.2500 ####[facility] [address] [place], [address] TOXIC GRAN 1+ Normal [facility] Comment on above: Performed By: #### L 100.0100, L500.2500 ####[facility] [address] [place], [address] Chest 1 View (Portable)on Chest 1 View (Portable) Normal [facility] Complement C3on 10-25-2024 COMP C3 178 mg/dL High 82-167 [facility] Comment on above: Performed By: #### L 3400.4200, L3100.3450, L3100.5700, L3300.1200, L3100.5800 ####[facility] [address] [place], [address] Complement C4on 10-25-2024 COMPLEMENT, C4 34 mg/dL Normal 12-38 [facility] Comment on above: Performed By: #### L 3400.4200, L3100.3450, L3100.5700, L3300.1200, L3100.5800 ####[facility] [address] [place], [address] Erythrocyte morphology asses smentOrdered By: Rosmery Lake on 10-25-2024 RBC morphology finding Nom (Bld) NORM C+C NORMAL NORM C&C [facility] Ketones Test strip Ql (U)Ord ered By: Cece Dennis on 10-25-2024 Ketones Ql (U) Negative Negative [facility] L509.7001on 10-25-2024 Procalcitonin 0.33 ng/mL High <=0.10 [facility] Comment on above: Result Comment: Inte rpretation:<0.10-0.25 ng/mL: Antibiotic therapy discouraged. Bacterialinfection unlikely.0.25-0.50 ng/mL: Antibiotic therapy encouraged. Bacterialinfection possible.>0.50 ng/mL: Antibiotic therapy strongly encouraged.Suggestive of presence of bacterial infection.PCT should always be interpreted in the clinical context ofthe patient. Therefore, clinicians should use the PCTresults in conjunction with other laboratory findings andclinical signs of the patient. Performed By: #### L 509.7001 ####[facility] [address] [place], [place], [address] Mucus LM Ql (Urine sed)Order ed By: Cece Dennis on 10-25-2024 Mucus Ql (Urine sed) 0 SEEN /hpf [facility] Nitrite Test strip Ql (U)Ord ered By: Cece [facility] on 10-25-2024 Nitrite Ql (U) Negative Negative [facility] Partial Thromboplast Timeon 10-25-2024 aPTT Coag (Bld) [Time] 28.9 s Normal 24.1-36.2 [facility] Comment on above: Performed By: #### L 300.4310 ####[facility] [address] [place], [place], [address] Procalcitonin [Mass/volume] in Serum or Plasma by ImmunoassayOrdered By: Rosmery Lake on 10-25-2024 Procalcitonin IA [Mass/Vol] 0.33 ng/mL High <0.11 [facility] Protein Electroph, Son 10-25 Albumin [Mass/Vol] 2.4 g/dL Low 2.9-4.4 [facility] Comment on above: Performed By: #### L 3400.4200, L3100.3450, L3100.5700, L3300.1200, L3100.5800 ####[facility] [address] [place], [address] Albumin/Globulin [Mass ratio] 0.7 {ratio} Normal 0.7-1.7 [facility] Comment on above: Performed By: #### L 3400.4200, L3100.3450, L3100.5700, L3300.1200, L3100.5800 ####[facility] [address] [place], [address] ALPHA-1 GLOBUL 0.3 g/dL Normal 0.0-0.4 [facility] Comment on above: Performed By: #### L 3400.4200, L3100.3450, L3100.5700, L3300.1200, L3100.5800 ####[facility] [address] [place], [address] ALPHA-2 GLOBUL 1.2 g/dL High 0.4-1.0 [facility] Comment on above: Performed By: #### L 3400.4200, L3100.3450, L3100.5700, L3300.1200, L3100.5800 ####[facility] [address] [place], [address] BETA GLOBULIN 1.0 g/dL Normal 0.7-1.3 [facility] Comment on above: Performed By: #### L 3400.4200, L3100.3450, L3100.5700, L3300.1200, L3100.5800 ####[facility] [address] [place], [address] GAMMA GLOBULIN 1.0 g/dL Normal 0.4-1.8 [facility] Comment on above: Performed By: #### L 3400.4200, L3100.3450, L3100.5700, L3300.1200, L3100.5800 ####[facility] [address] [place], [address] Globulin (S) [Mass/Vol] 3.6 g/dL Normal 2.2-3.9 [facility] Comment on above: Performed By: #### L 3400.4200, L3100.3450, L3100.5700, L3300.1200, L3100.5800 ####[facility] [address] [place], [place], [id number] INTERPRETATION Comment Normal . [facility] Comment on above: Result Comment: Prot ein electrophoresis scan will follow via computer,mail, or chorus master delivery. Performed By: #### L 3400.4200, L3100.3450, L3100.5700, L3300.1200, L3100.5800 ####[facility] [address] [place], [address] M-SPIKE Comment: Normal Not Observed [facility] Comment on above: Result Comment: M-sp delon #1 = 0.4 g/dlM-spike #2 = 0.2 g/dl Performed By: #### L 3400.4200, L3100.3450, L3100.5700, L3300.1200, L3100.5800 ####[facility] [address] [place], [address] NOTE: Comment Normal . [facility] Comment on above: Result Comment: The SPE pattern demonstrates two peaks in the beta-gammaregion which may represent monoclonal protein. A biclonalgammopathy may be confirmed by immunofixation, as well asevaluation of the urine for the presence of Bence-Jonesprotein. Performed By: #### L 3400.4200, L3100.3450, L3100.5700, L3300.1200, L3100.5800 ####[facility] [address] [place], [address] Protein [Mass/Vol] 6.0 g/dL Normal 6.0-8.5 [facility] Comment on above: Performed By: #### L 3400.4200, L3100.3450, L3100.5700, L3300.1200, L3100.5800 ####[facility] [address] [place], [address] Protein Test strip Ql (U)Ord ered By: Cece Dennis on 10-25-2024 Protein Ql (U) 100 mg/dl High Negative [facility] Squamous epithelial cells de tection in urine sediment by light microscopyOrdered By: Cece Dennis on 10-25-2024 Epithelial cells.squamous LM Ql (Urine sed) 0-5 SEEN /hpf 0-5 [facility] Toxic leukocyte granulation detectionOrdered By: Rosmery Lake on 10-25-2024 Toxic granules LM Ql (Bld) 1+ [facility] Urinalysis, Completeon 10-25 EPI,SQUAMOUS 0-5 SEEN Normal 0-5 [facility] Comment on above: Order Comment: DOREEN TER SPECIMEN Performed By: #### L 400.0001 ####[facility] [address] [place], [address] RBC > 100 SEEN Normal 0-5 [facility] Comment on above: Order Comment: DOREEN TER SPECIMEN Performed By: #### L 400.0001 ####[facility] [address] [place], [address] WBC 10-25 SEEN Normal 0-5 [facility] Comment on above: Order Comment: DOREEN TER SPECIMEN Performed By: #### L 400.0001 ####[facility] [address] [place], [address] BACTERIA 0 SEEN Normal None Seen [facility] Comment on above: Order Comment: DOREEN TER SPECIMEN Performed By: #### L 400.0001 ####[facility] [address] [place], [address] Mucus Ql (Urine sed) 0 SEEN Normal [facility] Comment on above: Order Comment: DOREEN TER SPECIMEN Performed By: #### L 400.0001 ####[facility] [address] [place], [address] Urine clarityOrdered By: Tera Dennis on 10-25-2024 Clarity (U) Clear Clear [facility] Urine color determinationOrd ered By: Cece Dennis on 10-25-2024 Color (U) Yellow Yellow [facility] Urine glucose detectionOrder ed By: Cece Dennis on 10-25-2024 Glucose Ql (U) Normal mg/dl Normal [facility] Urine leukocyte esterase det ection by dipstickOrdered By: Cece Dennis on 10-25-2024 Leukocyte esterase Test strip Ql (U) 500 /ul High Negative [facility] Urine pHOrdered By: Cece Schulz obothnargis on 10-25-2024 pH (U) 6.0 [pH] 5.0 - 8.0 [facility] Urine sediment bacteria coun t by microscopy (number/high power field)Ordered By: Cece Dennis on 10-25-2024 Bacteria LM.HPF (Urine sed) [#/Area] 0 /[HPF] None Seen [facility] Urine specific gravity measu rementOrdered By: Cece Dennis on 10-25-2024 Specific gravity (U) [Rel density] 1.010 1.002-1.030 [facility] Urine urobilinogen measureme ntOrdered By: Cecesantiago Dennis on 10-25-2024 Urobilinogen Ql (U) Normal mg/dl Normal [facility] White blood cell countOrdere d By: Cece Dennis on 10-25-2024 White blood cell count 10-25 SEEN /hpf 0-5 [facility] Basic Metabolic Profile (BMP )on 10-24-2024 BUN/CRE 8.5 RATIO Low 10-20 [facility] Comment on above: Performed By: #### L 100.0100, L500.2500 ####[facility] [address] [place], [address] Calcium [Mass/Vol] 8.6 mg/dL Normal 7.6-11.0 [facility] Comment on above: Performed By: #### L 100.0100, L500.2500 ####[facility] [address] [place], [address] Chloride [Moles/Vol] 106 mmol/L Normal 98-108 [facility] Comment on above: Performed By: #### L 100.0100, L500.2500 ####[facility] [address] [place], [address] CO2 [Moles/Vol] 22.2 mmol/L Normal 21.0-32.0 [facility] Comment on above: Performed By: #### L 100.0100, L500.2500 ####[facility] [address] [place], [address] Creatinine [Mass/Vol] 5.62 mg/dL High 0.70-1.20 [facility] Comment on above: Performed By: #### L 100.0100, L500.2500 ####[facility] [address] [place], [address] ECRCL 12.45 ml/min Low 50-250 [facility] Comment on above: Performed By: #### L 100.0100, L500.2500 ####[facility] [address] [place], [address] GAP 14 Normal 5-15 [facility] Comment on above: Performed By: #### L 100.0100, L500.2500 ####[facility] [address] [place], [address] GFR/1.73 sq M.predicted among non-blacks MDRD (S/P/Bld) [Vol rate/Area] 10 mL/min/{1.73_m2} Low >60 [facility] Comment on above: Result Comment: mL/m in/1.73m2 CKD-EPI Creatinine Equation (2020) Performed By: #### L 100.0100, L500.2500 ####[facility] [address] [place], [address] Glucose [Mass/Vol] 171 mg/dL High 70-99 [facility] [facility] Comment on above: Performed By: #### L 100.0100, L500.2500 ####[facility] [address] [place], [address] Potassium [Moles/Vol] 3.6 mmol/L Normal 3.3-5.1 [facility] Comment on above: Performed By: #### L 100.0100, L500.2500 ####[facility] [address] [place], [address] Sodium [Moles/Vol] 141 mmol/L Normal 133-145 [facility] Comment on above: Performed By: #### L 100.0100, L500.2500 ####[facility] [address] [place], [address] Urea nitrogen [Mass/Vol] 48 mg/dL High 4-19 [facility] Comment on above: Performed By: #### L 100.0100, L500.2500 ####[facility] [address] [place], [address] Bedside Glucoseon 10-24-2024 FINGERSTICK GLU 163 mg/dL High 74-106 [facility] Comment on above: Result Comment: MARKY GEMENT OF PATIENT CARE PER NURSING PROTOCOL Performed By: #### L 501.080 ####[facility] [address] [place], [address] FINGERSTICK GLU 201 mg/dL High 74-106 [facility] Comment on above: Result Comment: MARKY GEMENT OF PATIENT CARE PER NURSING PROTOCOL Performed By: #### L 501.080 ####[facility] [address] [place], [address] FINGERSTICK GLU 213 mg/dL High 74-106 [facility] Comment on above: Result Comment: MARKY GEMENT OF PATIENT CARE PER NURSING PROTOCOL Performed By: #### L 501.080 ####[facility] [address] [place], [address] FINGERSTICK GLU 141 mg/dL High 74-106 [facility] Comment on above: Result Comment: MARKY PATEL OF PATIENT CARE PER NURSING PROTOCOL Performed By: #### L 501.080 ####[facility] [address] [place], [address] CBC W/Diff, Automatedon - Anisocytosis Ql (Bld) 1+ Normal [facility] Comment on above: Performed By: #### L 100.0100, L500.2500 ####[facility] [address] [place], [address] OVALOCYTE 1+ Normal [facility] Comment on above: Performed By: #### L 100.0100, L500.2500 ####[facility] [address] [place], [address] PLT EST ADEQUATE Normal ADEQ [facility] Comment on above: Performed By: #### L 100.0100, L500.2500 ####[facility] [address] [place], [address] Absolute Lymph 1.46 X10 3/uL Normal 0.83-4.51 [facility] Comment on above: Performed By: #### L 100.0100, L500.2500 ####[facility] [address] [place], [address] Absolute Neut 9.0 X10 3/uL High 2.0-7.7 [facility] Comment on above: Performed By: #### L 100.0100, L500.2500 ####[facility] [address] [place], [address] Eosinophils/100 WBC (Bld) 6 % High 0-5 [facility] Comment on above: Performed By: #### L 100.0100, L500.2500 ####[facility] [address] [place], [address] Lymphocytes (Bld) [#/Vol] 12 10*3/uL Low 19-41 [facility] Comment on above: Performed By: #### L 100.0100, L500.2500 ####[facility] [address] [place], [address] META 3 High 0-1 [facility] Comment on above: Performed By: #### L 100.0100, L500.2500 ####[facility] [address] [place], [address] Metamyelocytes/100 WBC (Bld) 1 % High 0-0 [facility] Comment on above: Performed By: #### L 100.0100, L500.2500 ####[facility] [address] [place], [address] MONOCYTE 4 Normal 0-10 [facility] Comment on above: Performed By: #### L 100.0100, L500.2500 ####[facility] [address] [place], [address] SEGS 74 High 47-70 [facility] Comment on above: Performed By: #### L 100.0100, L500.2500 ####[facility] [address] [place], [address] TOTAL CELLS 100 Normal MANUAL DIFF [facility] Comment on above: Performed By: #### L 100.0100, L500.2500 ####[facility] [address] [place], [address] Chest 1 View (Portable)on Chest 1 View (Portable) Normal [facility] No Panel InformationOrdered By: Rosmery Lake on 10-24-2024 1+ [facility] Ovalocyte detectionOrdered B y: Rosmery Lake on 10-24-2024 Ovalocytes LM Ql (Bld) 1+ [facility] Partial Thromboplast Timeon 10-24-2024 aPTT Coag (Bld) [Time] 44.9 s High 24.1-36.2 [facility] Comment on above: Performed By: #### L 300.4310 ####[facility] [address] [place], [address] aPTT Coag (Bld) [Time] 55.2 s High 24.1-36.2 [facility] Comment on above: Performed By: #### L 300.4310 ####[facility] [address] [place], [address] aPTT Coag (Bld) [Time] 54.1 s High 24.1-36.2 [facility] Comment on above: Performed By: #### L 300.4310 ####[facility] [address] [place], [address] Anti-dsDNA Abon 10-23-2024 ANTI-DNA (DS)AB <1 Normal 0-9 [facility] Comment on above: Result Comment: Nega tive <5 Equivocal 5 - 9 Positive >9Performed at: [facility] [address] Director: Krystian Oliver PhD, Phone: [phone] Performed By: #### L 5050.0585 ####[facility] [address] [place], [address] Basic Metabolic Profile (BMP )on 10-23-2024 BUN/CRE 9.9 RATIO Low 10-20 [facility] Comment on above: Performed By: #### L 100.0100, L500.2500 ####[facility] [address] [place], [address] Calcium [Mass/Vol] 8.1 mg/dL Normal 7.6-11.0 [facility] Comment on above: Performed By: #### L 100.0100, L500.2500 ####[facility] [address] [place], [address] Chloride [Moles/Vol] 105 mmol/L Normal 98-108 [facility] Comment on above: Performed By: #### L 100.0100, L500.2500 ####[facility] [address] [place], [address] CO2 [Moles/Vol] 20.8 mmol/L Low 21.0-32.0 [facility] Comment on above: Performed By: #### L 100.0100, L500.2500 ####[facility] [address] [place], [address] Creatinine [Mass/Vol] 7.11 mg/dL High 0.70-1.20 [facility] Comment on above: Performed By: #### L 100.0100, L500.2500 ####[facility] [address] [place], [address] ECRCL 9.84 ml/min Invalid Interpretation Code 50-250 [facility] Comment on above: Performed By: #### L 100.0100, L500.2500 ####[facility] [address] [place], [address] GAP 15 Normal 5-15 [facility] Comment on above: Performed By: #### L 100.0100, L500.2500 ####[facility] [address] [place], [address] GFR/1.73 sq M.predicted among non-blacks MDRD (S/P/Bld) [Vol rate/Area] 8 mL/min/{1.73_m2} Low >60 [facility] Comment on above: Result Comment: mL/m in/1.73m2 CKD-EPI Creatinine Equation (2020) Performed By: #### L 100.0100, L500.2500 ####[facility] [address] [place], [address] Glucose [Mass/Vol] 166 mg/dL High 70-99 [facility] Comment on above: Performed By: #### L 100.0100, L500.2500 ####[facility] [address] [place], [address] Potassium [Moles/Vol] 3.4 mmol/L Normal 3.3-5.1 [facility] Comment on above: Performed By: #### L 100.0100, L500.2500 ####[facility] [address] [place], [address] Sodium [Moles/Vol] 141 mmol/L Normal 133-145 [facility] Comment on above: Performed By: #### L 100.0100, L500.2500 ####[facility] [address] [place], [address] Urea nitrogen [Mass/Vol] 70 mg/dL High 4-19 [facility] Comment on above: Performed By: #### L 100.0100, L500.2500 ####[facility] [address] [place], [address] Bedside Glucoseon 10-23-2024 FINGERSTICK GLU 196 mg/dL High 74-106 [facility] Comment on above: Result Comment: MARKY GEMENT OF PATIENT CARE PER NURSING PROTOCOL Performed By: #### L 501.080 ####[facility] [address] [place], [address] FINGERSTICK GLU 145 mg/dL High 74-106 [facility] Comment on above: Result Comment: MARKY GEMENT OF PATIENT CARE PER NURSING PROTOCOL Performed By: #### L 501.080 ####[facility] [address] [place], [address] FINGERSTICK GLU 181 mg/dL High 74-106 [facility] Comment on above: Result Comment: MARKY GEMENT OF PATIENT CARE PER NURSING PROTOCOL Performed By: #### L 501.080 ####[facility] [address] [place], [address] FINGERSTICK GLU 147 mg/dL High 74-106 [facility] Comment on above: Result Comment: MARKY PATEL OF PATIENT CARE PER NURSING PROTOCOL Performed By: #### L 501.080 ####[facility] [address] [place], [address] Modified Barium Swallow Stud yon 10-23-2024 Modified Barium Swallow Study Normal [facility] Partial Thromboplast Timeon 10-23-2024 aPTT Coag (Bld) [Time] 113.7 s Invalid Interpretation Code 24.1-36.2 [facility] Comment on above: Result Comment: CRIT ICAL VALUE CALLED TO EDD HAGEN10/23/241943 Nataliya Gupta.RESULTS READ BACK BY SAME. Performed By: #### L 962.3467 ####[facility] [address] [place], [address] aPTT Coag (Bld) [Time] 39.8 s High 24.1-36.2 [facility] Comment on above: Performed By: #### L 090.0650 ####[facility] [address] [place], [place], [address] aPTT Coag (Bld) [Time] 82.7 s High 24.1-36.2 [facility] Comment on above: Performed By: #### L 156.4310 ####[facility] [address] [place], [place], [address] Review by pathologistOrdered By: Rosmery Lake on 10-23-2024 Pathologist review Ahmet (Unsp spec) [Interp] May [facility] Pathologist review Ahmet (Unsp spec) [Interp] Reviewed [facility] Albumin Elph [Mass/Vol]Order ed By: Rodney Chavez on 10-22-2024 Albumin [Mass/Vol] 2.4 g/dL Low 2.9-4.4 [facility] Basic Metabolic Profile (BMP )on 10-22-2024 BUN/CRE 10.2 RATIO Normal 10-20 [facility] Comment on above: Performed By: #### L 100.0100, L500.2500 ####[facility] [address] [place], [address] Calcium [Mass/Vol] 8.1 mg/dL Normal 7.6-11.0 [facility] Comment on above: Performed By: #### L 100.0100, L500.2500 ####[facility] [address] [place], [address] Chloride [Moles/Vol] 106 mmol/L Normal 98-108 [facility] Comment on above: Performed By: #### L 100.0100, L500.2500 ####[facility] [address] [place], [address] CO2 [Moles/Vol] 17.6 mmol/L Low 21.0-32.0 [facility] Comment on above: Performed By: #### L 100.0100, L500.2500 ####[facility] [address] [place], [address] Creatinine [Mass/Vol] 9.55 mg/dL Invalid Interpretation Code 0.70-1.20 [facility] Comment on above: Result Comment: Crit ical Result(s) Called at 0550: by: TRISTIN RIVERA. ??Results read back by same. Performed By: #### L 100.0100, L500.2500 ####[facility] [address] [place], [address] ECRCL 7.33 ml/min Invalid Interpretation Code 50-250 [facility] Comment on above: Performed By: #### L 100.0100, L500.2500 ####[facility] [address] [place], [address] GAP 18 High 5-15 [facility] Comment on above: Performed By: #### L 100.0100, L500.2500 ####[facility] [address] [place], [address] GFR/1.73 sq M.predicted among non-blacks MDRD (S/P/Bld) [Vol rate/Area] 5 mL/min/{1.73_m2} Low >60 [facility] Comment on above: Result Comment: mL/m in/1.73m2 CKD-EPI Creatinine Equation (2020) Performed By: #### L 100.0100, L500.2500 ####[facility] [address] [place], [address] Glucose [Mass/Vol] 169 mg/dL High 70-99 [facility] Comment on above: Performed By: #### L 100.0100, L500.2500 ####[facility] [address] [place], [address] Potassium [Moles/Vol] 3.7 mmol/L Normal 3.3-5.1 [facility] Comment on above: Performed By: #### L 100.0100, L500.2500 ####[facility] [address] [place], [address] Sodium [Moles/Vol] 142 mmol/L Normal 133-145 [facility] Comment on above: Performed By: #### L 100.0100, L500.2500 ####[facility] [address] [place], [address] Urea nitrogen [Mass/Vol] 98 mg/dL High 4-19 [facility] Comment on above: Performed By: #### L 100.0100, L500.2500 ####[facility] [address] [place], [address] Bedside Glucoseon 10-22-2024 FINGERSTICK GLU 177 mg/dL High 74-106 [facility] Comment on above: Result Comment: MARKY PATEL OF PATIENT CARE PER NURSING PROTOCOL Performed By: #### L 501.080 ####[facility] [address] [place], [address] FINGERSTICK GLU 175 mg/dL High 74-106 [facility] Comment on above: Result Comment: MARKY GEMENT OF PATIENT CARE PER NURSING PROTOCOL Performed By: #### L 501.080 ####[facility] [address] [place], [address] FINGERSTICK GLU 121 mg/dL High 74-106 [facility] Comment on above: Result Comment: MARKY GEMENT OF PATIENT CARE PER NURSING PROTOCOL Performed By: #### L 501.080 ####[facility] [address] [place], [address] FINGERSTICK GLU 223 mg/dL High 74-106 [facility] Comment on above: Result Comment: MARKY GEMENT OF PATIENT CARE PER NURSING PROTOCOL Performed By: #### L 501.080 ####[facility] [address] [place], [address] FINGERSTICK GLU 148 mg/dL High 74-106 [facility] Comment on above: Result Comment: MARKY GEMENT OF PATIENT CARE PER NURSING PROTOCOL Performed By: #### L 501.080 ####[facility] [address] [place], [address] CBC W/Diff, Automatedon 10-07 Absolute Lymph 1.21 X10 3/uL Normal 0.83-4.51 [facility] Comment on above: Performed By: #### L 100.0100, L500.2500 ####[facility] [address] [place], [address] Absolute Neut 10.9 X10 3/uL High 2.0-7.7 [facility] Comment on above: Performed By: #### L 100.0100, L500.2500 ####[facility] [address] [place], [address] ENTERIC PATHOGEN PANEL STOOL on 10-22-2024 EP PANEL Normal [facility] Comment on above: Performed By: #### M 100.6796, M100.637 ####[facility] [address] [place], [place], [id number] Kidney and Bladderon 025 Kidney and Bladder Normal [facility] L3890.6102on 10-22-2024 HEP B Surf Ag Non-Reactive Normal Nonreactive [facility] Comment on above: Order Comment: Reaso n for Exam: prob need for outpt dialysis Result Comment: Reac tive: Presumptive evidence of HBV. Repeatedly reactivesamples must be confirmed using a neutralization test([employer] HBsAg Confirmatory Test)Non-Reactive: HBsAg not detected; does not exclude thepossibility of exposure to HBV Performed By: #### L 3890.6102 ####[facility] [address] [place], [address] Laboratory - Microbiology an d Antimicrobial susceptibilityOrdered By: Rodney Chavez on 10-22-2024 HBV surface Ag Ql (S) Non-Reactive Nonreactive [facility] No Panel InformationOrdered By: Rodney Chavez on 10-22-2024 Addendum Document Comment . [facility] Partial Thromboplast Timeon 10-22-2024 aPTT Coag (Bld) [Time] 48.4 s High 24.1-36.2 [facility] Comment on above: Performed By: #### L 300.3060 ####[facility] [address] [place], [place], [address] aPTT Coag (Bld) [Time] 84.9 s High 24.1-36.2 [facility] Comment on above: Performed By: #### L 300.9720 ####[facility] [address] [place], [place], [id number] aPTT Coag (Bld) [Time] 54.5 s High 24.1-36.2 [facility] Comment on above: Performed By: #### L 300.4310 ####[facility] [address] [place], [place], [address] Protein Fractions Elph [Inte rp]Ordered By: Rodney Chavez on 10-22-2024 Protein Fractions [Interp] Comment . [facility] Serum DNA double strand anti body assay (units/volume)Ordered By: Rodney Chavez on 10-22-2024 DNA double strand Ab Qn (S) [IU]/mL 0-9 [facility] Serum albumin to globulin ra channing by protein electrophoresisOrdered By: Rodney Chavez on 10-22-2024 Albumin/Globulin Elph [Mass ratio] 0.7 0.7-1.7 [facility] Serum classic neutrophil cyt oplasmic antibody assay (units/volume)Ordered By: Rodney Chavez on 10-22-2024 Neutrophil cytoplasmic Ab.classic Qn (S) <1:20 titer Neg:<1:20 [facility] Serum globulin measurement ( mass/volume)Ordered By: Rodney Chavez on 10-22-2024 Globulin (S) [Mass/Vol] 3.6 g/dL 2.2-3.9 [facility] Serum glomerular basement me mbrane antibody assay (units/volume)Ordered By: Rodney Chavez on 10-22-2024 Glomerular basement membrane Ab Qn (S) < 0.2 units 0.0-0.9 [facility] Serum or plasma beta globuli n measurement by electrophoresis (mass/volume)Ordered By: Rodney Chavez on 10-22-2024 Beta globulin Elph [Mass/Vol] 1.0 g/dL 0.7-1.3 [facility] Serum or plasma complement C 4 measurement (mass/volume)Ordered By: Rodney Chavez on 10-22-2024 Complement C4 [Mass/Vol] 34 mg/dL 12-38 [facility] Serum or plasma protein makenzie urement (mass/volume)Ordered By: Rodney Chavez on 10-22-2024 Protein [Mass/Vol] 6.0 g/dL 6.0-8.5 [facility] Serum or plasma protein mono clonal measurement by electrophoresis (mass/volume)Ordered By: Rodney Chavez on 10-22-2024 Protein.monoclonal Elph [Mass/Vol] Comment: g/dL Not Observed [facility] Serum perinuclear neutrophil cytoplasmic antibody titer by immunofluorescenceOrdered By: Rodney Chavez on 10-22-2024 Neutrophil cytoplasmic Ab.perinuclear IF (S) [Titer] <1:20 titer Neg:<1:20 [facility] Basic Metabolic Profile (BMP )on 10-21-2024 BUN/CRE 11.5 RATIO Normal 10-20 [facility] Comment on above: Performed By: #### L 500.2500, L100.0100 ####[facility] [address] [place], [address] Calcium [Mass/Vol] 8.2 mg/dL Normal 7.6-11.0 [facility] Comment on above: Performed By: #### L 500.2500, L100.0100 ####[facility] [address] [place], [address] Chloride [Moles/Vol] 106 mmol/L Normal 98-108 [facility] Comment on above: Performed By: #### L 500.2500, L100.0100 ####[facility] [address] [place], [address] CO2 [Moles/Vol] 17.7 mmol/L Low 21.0-32.0 [facility] Comment on above: Performed By: #### L 500.2500, L100.0100 ####[facility] [address] [place], [address] Creatinine [Mass/Vol] 8.28 mg/dL Invalid Interpretation Code 0.70-1.20 [facility] Comment on above: Result Comment: Crit ical Result(s) Called at 0555: by: SUE LOO??Results read back by same. Performed By: #### L 500.2500, L100.0100 ####[facility] [address] [place], [address] ECRCL 8.45 ml/min Invalid Interpretation Code 50-250 [facility] Comment on above: Performed By: #### L 500.2500, L100.0100 ####[facility] [address] [place], [address] GAP 17 High 5-15 [facility] Comment on above: Performed By: #### L 500.2500, L100.0100 ####[facility] [address] [place], [address] GFR/1.73 sq M.predicted among non-blacks MDRD (S/P/Bld) [Vol rate/Area] 6 mL/min/{1.73_m2} Low >60 [facility] Comment on above: Result Comment: mL/m in/1.73m2 CKD-EPI Creatinine Equation (2020) Performed By: #### L 500.2500, L100.0100 ####[facility] [address] [place], [address] Glucose [Mass/Vol] 182 mg/dL High 70-99 [facility] Comment on above: Performed By: #### L 500.2500, L100.0100 ####[facility] [address] [place], [address] Potassium [Moles/Vol] 3.6 mmol/L Normal 3.3-5.1 [facility] Comment on above: Performed By: #### L 500.2500, L100.0100 ####[facility] [address] [place], [address] Sodium [Moles/Vol] 140 mmol/L Normal 133-145 [facility] Comment on above: Performed By: #### L 500.2500, L100.0100 ####[facility] [address] [place], [address] Urea nitrogen [Mass/Vol] 95 mg/dL High 4-19 [facility] Comment on above: Performed By: #### L 500.2500, L100.0100 ####[facility] [address] [place], [address] Bedside Glucoseon 10-21-2024 FINGERSTICK GLU 227 mg/dL High 74-106 [facility] Comment on above: Result Comment: MARKY GEMENT OF PATIENT CARE PER NURSING PROTOCOL Performed By: #### L 501.080 ####[facility] [address] [place], [address] FINGERSTICK GLU 142 mg/dL High 74-106 [facility] Comment on above: Result Comment: MARKY GEMENT OF PATIENT CARE PER NURSING PROTOCOL Performed By: #### L 501.080 ####[facility] [address] [place], [address] FINGERSTICK GLU 134 mg/dL High 74-106 [facility] Comment on above: Result Comment: MARKY GEMENT OF PATIENT CARE PER NURSING PROTOCOL Performed By: #### L 501.080 ####[facility] [address] [place], [address] FINGERSTICK GLU 169 mg/dL High 74-106 [facility] Comment on above: Result Comment: MARKY GEMENT OF PATIENT CARE PER NURSING PROTOCOL Performed By: #### L 501.080 ####[facility] [address] [place], [address] CBC W/Diff, Automatedon 10-07 Absolute Lymph 0.92 X10 3/uL Normal 0.83-4.51 [facility] Comment on above: Performed By: #### L 500.2500, L100.0100 ####[facility] [address] [place], [address] Absolute Neut 10.9 X10 3/uL High 2.0-7.7 [facility] Comment on above: Performed By: #### L 500.2500, L100.0100 ####[facility] [address] [place], [address] Basophils/100 WBC (Bld) 0.4 % Normal 0-1 [facility] Comment on above: Performed By: #### L 500.2500, L100.0100 ####[facility] [address] [place], [address] Eosinophils/100 WBC (Bld) 2.8 % Normal 0-5 [facility] Comment on above: Performed By: #### L 500.2500, L100.0100 ####[facility] [address] [place], [address] Erythrocyte distribution width (RBC) [Ratio] 13.4 % Normal 11.6-14.6 [facility] Comment on above: Performed By: #### L 500.2500, L100.0100 ####[facility] [address] [place], [address] Hematocrit (Bld) [Volume fraction] 28.7 % Low 40-54 [facility] Comment on above: Performed By: #### L 500.2500, L100.0100 ####[facility] [address] [place], [address] Hemoglobin (Bld) [Mass/Vol] 9.8 g/dL Low 13.0-16.5 [facility] Comment on above: Performed By: #### L 500.2500, L100.0100 ####[facility] [address] [place], [address] IG% 1.800 High 0.0-0.9 [facility] Comment on above: Result Comment: IG% - Immature Granulocytes (promyelocytes, myelocytes andmetamyelocytes) > 1% indicates that a LEFT SHIFT is Present. Performed By: #### L 500.2500, L100.0100 ####[facility] [address] [place], [address] Lymphocytes/100 WBC (Bld) 6.8 % Low 19-41 [facility] Comment on above: Performed By: #### L 500.2500, L100.0100 ####[facility] [address] [place], [address] MCH (RBC) [Entitic mass] 30.5 pg Normal 27.0-32.0 [facility] Comment on above: Performed By: #### L 500.2500, L100.0100 ####[facility] [address] [place], [address] MCHC (RBC) [Mass/Vol] 34.1 g/dL Normal 32-36 [facility] Comment on above: Performed By: #### L 500.2500, L100.0100 ####[facility] [address] [place], [address] MCV (RBC) [Entitic vol] 89.4 fL Normal 80-94 [facility] Comment on above: Performed By: #### L 500.2500, L100.0100 ####[facility] [address] [place], [address] Monocytes/100 WBC (Bld) 7.0 % Normal 0-10 [facility] Comment on above: Performed By: #### L 500.2500, L100.0100 ####[facility] [address] [place], [address] Neutrophils/100 WBC (Bld) 81.2 % High 47-70 [facility] Comment on above: Performed By: #### L 500.2500, L100.0100 ####[facility] [address] [place], [address] Nucleated RBC (Bld) [#/Vol] 0 10*3/uL Normal 0-5 [facility] Comment on above: Performed By: #### L 500.2500, L100.0100 ####[facility] [address] [place], [address] Platelet mean volume (Bld) [Entitic vol] 11.1 fL Normal 6.2-12.0 [facility] Comment on above: Performed By: #### L 500.2500, L100.0100 ####[facility] [address] [place], [address] Platelets (Bld) [#/Vol] 266 10*3/uL Normal 150-450 [facility] Comment on above: Performed By: #### L 500.2500, L100.0100 ####[facility] [address] [place], [address] RBC (Bld) [#/Vol] 3.21 10*6/uL Low 4.6-6.2 [facility] Comment on above: Performed By: #### L 500.2500, L100.0100 ####[facility] [address] [place], [address] RDW SD 44.2 fl High 35.1-43.9 [facility] Comment on above: Performed By: #### L 500.2500, L100.0100 ####[facility] [address] [place], [address] WBC (Bld) [#/Vol] 13.5 10*3/uL High 4.4-11.0 [facility] Comment on above: Performed By: #### L 500.2500, L100.0100 ####[facility] [address] [place], [address] CDIFF (PCR)on 10-21-2024 CDIFF Is the patient receiving laxatives? N New/unexplained onset of 3 or more stools in past 24 hrs? Y Pending 027 027 NAP1-B1 Presumptive Negative *for epidemiolologic???use C. Diff PCR Negative- No toxigenic C. Diff Detected Normal [facility] Comment on above: Performed By: #### M 100.6796, M100.637 ####[facility] [address] [place], [address] CXR for Line Placementon CXR for Line Placement Normal [facility] Clostridium difficile detect ion by polymerase chain reactionOrdered By: Rosmery Lake on 10-21-2024 C. difficile DNA ADELA+probe Ql (Unsp spec) [facility] Consultation - Surgicalon Consultation - Surgical Normal [facility] Operative Reporton Operative Report Normal [facility] Partial Thromboplast Timeon 10-21-2024 aPTT Coag (Bld) [Time] 82.2 s High 24.1-36.2 [facility] Comment on above: Performed By: #### L 300.4310 ####[facility] [address] [place], [address] Assessment of wrist artery p atency prior to arterial punctureOrdered By: Nathalia Garcia on 10-20-2024 Arterial patency Wrist artery --pre arterial puncture N/A [facility] Basic Metabolic Profile (BMP )on 10-20-2024 BUN Normal 4-19 [facility] Comment on above: Result Comment: Canc elled via OM: Order Changed Performed By: #### L 500.2500 ####[facility] [address] [place], [address] BUN/CRE Normal 10-20 [facility] Comment on above: Result Comment: Canc elled via OM: Order Changed Performed By: #### L 500.2500 ####[facility] [address] [place], [address] Calcium Normal 7.6-11.0 [facility] Comment on above: Result Comment: Canc elled via OM: Order Changed Performed By: #### L 500.2500 ####[facility] [address] [place], [address] CL Normal 98-108 [facility] Comment on above: Result Comment: Canc elled via OM: Order Changed Performed By: #### L 500.2500 ####[facility] [address] [place], [address] CO2 Normal 21.0-32.0 [facility] Comment on above: Result Comment: Canc elled via OM: Order Changed Performed By: #### L 500.2500 ####[facility] [address] [place], [address] CREAT,SERUM Normal 0.70-1.20 [facility] Comment on above: Result Comment: Canc elled via OM: Order Changed Performed By: #### L 500.2500 ####[facility] [address] [place], [address] eGFR Normal >60 [facility] Comment on above: Result Comment: Canc elled via OM: Order Changed Performed By: #### L 500.2500 ####[facility] [address] [place], [address] GAP Normal 5-15 [facility] Comment on above: Result Comment: Canc elled via OM: Order Changed Performed By: #### L 500.2500 ####[facility] [address] [place], [address] GLU Normal 70-99 [facility] Comment on above: Result Comment: Canc elled via OM: Order Changed Performed By: #### L 500.2500 ####[facility] [address] [place], [address] Potassium Normal 3.3-5.1 [facility] Comment on above: Result Comment: Canc elled via OM: Order Changed Performed By: #### L 500.2500 ####[facility] [address] [place], [address] Basic Metabolic Profile (BMP) Normal 133-145 [facility] Comment on above: Result Comment: Canjoanne elled via OM: Order Changed Performed By: #### L 500.2500 ####[facility] [address] [place], [address] BUN/CRE 12.3 RATIO Normal 10-20 [facility] Comment on above: Performed By: #### L 500.2500 ####[facility] [address] [place], [address] Calcium [Mass/Vol] 8.2 mg/dL Normal 7.6-11.0 [facility] Comment on above: Performed By: #### L 500.2500 ####[facility] [address] [place], [address] Chloride [Moles/Vol] 103 mmol/L Normal 98-108 [facility] Comment on above: Performed By: #### L 500.2500 ####[facility] [address] [place], [address] CO2 [Moles/Vol] 17.1 mmol/L Low 21.0-32.0 [facility] Comment on above: Performed By: #### L 500.2500 ####[facility] [address] [place], [address] Creatinine [Mass/Vol] 7.23 mg/dL High 0.70-1.20 [facility] Comment on above: Performed By: #### L 500.2500 ####[facility] [address] [place], [address] ECRCL 9.68 ml/min Invalid Interpretation Code 50-250 [facility] Comment on above: Performed By: #### L 500.2500 ####[facility] [address] [place], [address] GAP 17 High 5-15 [facility] Comment on above: Performed By: #### L 500.2500 ####[facility] [address] [place], [address] GFR/1.73 sq M.predicted among non-blacks MDRD (S/P/Bld) [Vol rate/Area] 7 mL/min/{1.73_m2} Low >60 [facility] Comment on above: Result Comment: mL/m in/1.73m2 CKD-EPI Creatinine Equation (2020) Performed By: #### L 500.2500 ####[facility] [address] [place], [address] Glucose [Mass/Vol] 207 mg/dL High 70-99 [facility] Comment on above: Performed By: #### L 500.2500 ####[facility] [address] [place], [address] Potassium [Moles/Vol] 3.6 mmol/L Normal 3.3-5.1 [facility] Comment on above: Performed By: #### L 500.2500 ####[facility] [address] [place], [address] Sodium [Moles/Vol] 138 mmol/L Normal 133-145 [facility] Comment on above: Performed By: #### L 500.2500 ####[facility] [address] [place], [address] Urea nitrogen [Mass/Vol] 89 mg/dL High 4-19 [facility] Comment on above: Performed By: #### L 500.2500 ####[facility] [address] [place], [address] BUN Normal 4-19 [facility] Comment on above: Result Comment: Canc elled via OM: Order Changed Performed By: #### L 500.2500 ####[facility] [address] [place], [address] BUN/CRE Normal 10-20 [facility] Comment on above: Result Comment: Canc elled via OM: Order Changed Performed By: #### L 500.2500 ####[facility] [address] [place], [address] Calcium Normal 7.6-11.0 [facility] Comment on above: Result Comment: Canc elled via OM: Order Changed Performed By: #### L 500.2500 ####[facility] [address] [place], [address] CL Normal 98-108 [facility] Comment on above: Result Comment: Canc elled via OM: Order Changed Performed By: #### L 500.2500 ####[facility] [address] [place], [address] CO2 Normal 21.0-32.0 [facility] Comment on above: Result Comment: Canc elled via OM: Order Changed Performed By: #### L 500.2500 ####[facility] [address] [place], [address] CREAT,SERUM Normal 0.70-1.20 [facility] Comment on above: Result Comment: Canc elled via OM: Order Changed Performed By: #### L 500.2500 ####[facility] [address] [place], [address] eGFR Normal >60 [facility] Comment on above: Result Comment: Canc elled via OM: Order Changed Performed By: #### L 500.2500 ####[facility] [address] [place], [address] GAP Normal 5-15 [facility] Comment on above: Result Comment: Canc elled via OM: Order Changed Performed By: #### L 500.2500 ####[facility] [address] [place], [address] GLU Normal 70-99 [facility] Comment on above: Result Comment: Canc elled via OM: Order Changed Performed By: #### L 500.2500 ####[facility] [address] [place], [address] Potassium Normal 3.3-5.1 [facility] Comment on above: Result Comment: Canc elled via OM: Order Changed Performed By: #### L 500.2500 ####[facility] [address] [place], [address] Basic Metabolic Profile (BMP) Normal 133-145 [facility] Comment on above: Result Comment: Canc elled via OM: Order Changed Performed By: #### L 500.2500 ####[facility] [address] [place], [address] BUN Normal 4-19 [facility] Comment on above: Result Comment: Canc elled via OM: Order Changed Performed By: #### L 500.2500 ####[facility] [address] [place], [address] BUN/CRE Normal 10-20 [facility] Comment on above: Result Comment: Canc elled via OM: Order Changed Performed By: #### L 500.2500 ####[facility] [address] [place], [address] Calcium Normal 7.6-11.0 [facility] Comment on above: Result Comment: Canc elled via OM: Order Changed Performed By: #### L 500.2500 ####[facility] [address] [place], [address] CL Normal 98-108 [facility] Comment on above: Result Comment: Canc elled via OM: Order Changed Performed By: #### L 500.2500 ####[facility] [address] [place], [address] CO2 Normal 21.0-32.0 [facility] Comment on above: Result Comment: Canc elled via OM: Order Changed Performed By: #### L 500.2500 ####[facility] [address] [place], [address] CREAT,SERUM Normal 0.70-1.20 [facility] Comment on above: Result Comment: Canc elled via OM: Order Changed Performed By: #### L 500.2500 ####[facility] [address] [place], [address] eGFR Normal >60 [facility] Comment on above: Result Comment: Canc elled via OM: Order Changed Performed By: #### L 500.2500 ####[facility] [address] [place], [address] GAP Normal 5-15 [facility] Comment on above: Result Comment: Canc elled via OM: Order Changed Performed By: #### L 500.2500 ####[facility] [address] [place], [address] GLU Normal 70-99 [facility] Comment on above: Result Comment: Canc elled via OM: Order Changed Performed By: #### L 500.2500 ####[facility] [address] [place], [address] Potassium Normal 3.3-5.1 [facility] Comment on above: Result Comment: Canc elled via OM: Order Changed Performed By: #### L 500.2500 ####[facility] [address] [place], [address] Basic Metabolic Profile (BMP) Normal 133-145 [facility] Comment on above: Result Comment: Canc elled via OM: Order Changed Performed By: #### L 500.2500 ####[facility] [address] [place], [address] BUN/CRE 12.2 RATIO Normal 10-20 [facility] Comment on above: Performed By: #### L 501.3620, L500.2500, L501.5200 ####[facility] [address] [place], [address] Calcium [Mass/Vol] 7.8 mg/dL Normal 7.6-11.0 [facility] Comment on above: Performed By: #### L 501.3620, L500.2500, L501.5200 ####[facility] [address] [place], [address] Chloride [Moles/Vol] 104 mmol/L Normal 98-108 [facility] Comment on above: Performed By: #### L 501.3620, L500.2500, L501.5200 ####[facility] [address] [place], [address] CO2 [Moles/Vol] 16.4 mmol/L Low 21.0-32.0 [facility] Comment on above: Performed By: #### L 501.3620, L500.2500, L501.5200 ####[facility] [address] [place], [address] Creatinine [Mass/Vol] 6.70 mg/dL High 0.70-1.20 [facility] Comment on above: Performed By: #### L 501.3620, L500.2500, L501.5200 ####[facility] [address] [place], [address] ECRCL 10.44 ml/min Low 50-250 [facility] Comment on above: Performed By: #### L 501.3620, L500.2500, L501.5200 ####[facility] [address] [place], [address] GAP 17 High 5-15 [facility] Comment on above: Performed By: #### L 501.3620, L500.2500, L501.5200 ####[facility] [address] [place], [address] GFR/1.73 sq M.predicted among non-blacks MDRD (S/P/Bld) [Vol rate/Area] 8 mL/min/{1.73_m2} Low >60 [facility] Comment on above: Result Comment: mL/m in/1.73m2 CKD-EPI Creatinine Equation (2020) Performed By: #### L 501.3620, L500.2500, L501.5200 ####[facility] [address] [place], [address] Glucose [Mass/Vol] 195 mg/dL High 70-99 [facility] Comment on above: Performed By: #### L 501.3620, L500.2500, L501.5200 ####[facility] [address] [place], [address] Potassium [Moles/Vol] 3.7 mmol/L Normal 3.3-5.1 [facility] Comment on above: Performed By: #### L 501.3620, L500.2500, L501.5200 ####[facility] [address] [place], [address] Sodium [Moles/Vol] 137 mmol/L Normal 133-145 [facility] Comment on above: Performed By: #### L 501.3620, L500.2500, L501.5200 ####[facility] [address] [place], [address] Urea nitrogen [Mass/Vol] 82 mg/dL High 4-19 [facility] Comment on above: Performed By: #### L 501.3620, L500.2500, L501.5200 ####[facility] [address] [place], [address] Bedside Glucoseon 10-20-2024 FINGERSTICK GLU 202 mg/dL High 74-106 [facility] Comment on above: Result Comment: MARKY PATEL OF PATIENT CARE PER NURSING PROTOCOL Performed By: #### L 501.080 ####[facility] [address] [place], [address] FINGERSTICK GLU 190 mg/dL High 74-106 [facility] Comment on above: Result Comment: MARKY GEMENT OF PATIENT CARE PER NURSING PROTOCOL Performed By: #### L 501.080 ####[facility] [address] [place], [address] FINGERSTICK GLU 165 mg/dL High 74-106 [facility] Comment on above: Result Comment: MARKY GEMENT OF PATIENT CARE PER NURSING PROTOCOL Performed By: #### L 501.080 ####[facility] [address] [place], [address] FINGERSTICK GLU 138 mg/dL High 74-106 [facility] Comment on above: Result Comment: MARKY GEMENT OF PATIENT CARE PER NURSING PROTOCOL Performed By: #### L 501.080 ####[facility] [address] [place], [address] Blood Gases by [facility] 025 LUIS MIGUEL TEST N/A Normal [facility] Comment on above: Performed By: #### L 9000.0800 ####[facility] [address] [place], [address] Base excess Calc (Bld) [Moles/Vol] -2 mmol/L Normal -2 to +2 [facility] Comment on above: Performed By: #### L 9000.0800 ####[facility] [address] [place], [address] Blood Gas Type ART Normal [facility] Comment on above: Performed By: #### L 9000.0800 ####[facility] [address] [place], [address] CO2 [Moles/Vol] 23 mmol/L Normal [facility] Comment on above: Performed By: #### L 9000.0800 ####[facility] [address] [place], [address] FI02 3.0 Normal [facility] Comment on above: Performed By: #### L 9000.0800 ####[facility] [address] [place], [address] HCO3 (Bld) [Moles/Vol] 21.8 mmol/L Low 22-26 [facility] Comment on above: Performed By: #### L 9000.0800 ####[facility] [address] [place], [address] Mode Not entered [facility] Comment on above: Performed By: #### L 9000.0800 ####[facility] [address] [place], [address] O2 Delivery Dev Cannula Normal [facility] Comment on above: Performed By: #### L 9000.0800 ####[facility] [address] [place], [address] pCO2 30.3 mmHg Low 35-45 [facility] Comment on above: Performed By: #### L 9000.0800 ####[facility] [address] [place], [address] pH (Bld) 7.47 [pH] High 7.35-7.45 [facility] Comment on above: Performed By: #### L 9000.0800 ####[facility] [address] [place], [address] PO2 72 mmHG Low 75-100 [facility] Comment on above: Performed By: #### L 9000.0800 ####[facility] [address] [place], [address] SITE R Radial Normal [facility] Comment on above: Performed By: #### L 9000.0800 ####[facility] [address] [place], [address] SO2 96 Normal 95-99 [facility] Comment on above: Performed By: #### L 9000.0800 ####[facility] [address] [place], [address] Blood base excess determinat ionOrdered By: Nathalia Garcia on 10-20-2024 Base excess Calc (BldV) [Moles/Vol] -2 mmol/L -2-2 [facility] Blood bicarbonate measuremen tOrdered By: Nathalia Garcia on 10-20-2024 HCO3 (Bld) [Moles/Vol] 21.8 mmol/L Low 22-26 [facility] Blood manual differential co mment interpretation (narrative result)Ordered By: Nathalia Garcia on 10-20-2024 Manual differential comment Ahmet (Bld) [Interp] SCANNED [facility] CBC W/Diff, Automatedon 10-07 SMEAR COMMENT SCANNED Normal [facility] Comment on above: Result Comment: LEFT SHIFT: BANDS PRESENT 2+ Performed By: #### L 100.0100 ####[facility] [address] [place], [address] TOXIC GRAN 2+ Normal [facility] Comment on above: Performed By: #### L 100.0100 ####[facility] [address] [place], [address] CPK Total, Creatine Kinaseon 10-20-2024 CPK TOTAL 4431 U/L High 24-195 [facility] Comment on above: Performed By: #### L 501.3620, L500.2500, L501.5200 ####[facility] [address] [place], [address] Culture, Blood (WB)on 2024 CUB Blood cultures x2, from two different sites No growth in 5 days. Normal [facility] Comment on above: Performed By: #### L 506.0200, L501.9985, L503.6005, L501.9910, L501.9520, M200.1000 ####[facility] [address] [place], [address] Magnesiumon 10-20-2024 Magnesium [Mass/Vol] 2.0 mg/dL Normal 1.5-2.2 [facility] Comment on above: Performed By: #### L 501.3620, L500.2500, L501.5200 ####[facility] [address] [place], [address] Magnesium measurement (mass/ volume)Ordered By: Nathalia Garcia on 10-20-2024 Magnesium (Unsp spec) [Mass/Vol] 2.0 mg/dL 1.5-2.2 [facility] Measurement, pHOrdered By: Ashok Garcia on 10-20-2024 pH (Unsp spec) 7.47 [pH] High 7.35-7.45 [facility] No Panel InformationOrdered By: Nathalia Garcia on 10-20-2024 ART [facility] R Radial [facility] Not entered [facility] Cannula [facility] Partial Thromboplast Timeon 10-20-2024 aPTT Coag (Bld) [Time] 67.5 s High 24.1-36.2 [facility] Comment on above: Performed By: #### L 300.4310 ####[facility] [address] [place], [address] aPTT Coag (Bld) [Time] 69.6 s High 24.1-36.2 [facility] Comment on above: Performed By: #### L 300.4310 ####[facility] [address] [place], [address] aPTT Coag (Bld) [Time] 132.3 s Invalid Interpretation Code 24.1-36.2 [facility] Comment on above: Result Comment: CRIT ICAL VALUE CALLED TO [id number]/14/25 0011 Dre Pimentel.RESULTS READ BACK BY SAME. Performed By: #### L 300.4310 ####[facility] [address] [place], [address] Serum or plasma creatine kin ase activityOrdered By: Nathalia Garcia on 10-20-2024 CK [Catalytic activity/Vol] 4431 U/L High 24-195 [facility] Total carbon dioxide measure mentOrdered By: Nathalia Garcia on 10-20-2024 CO2 [Moles/Vol] 23 mmol/L [facility] Amorphous sediment detection in urine sediment by light microscopyOrdered By: Nathalia Garcia on 10-19-2024 Amorphous sediment LM Ql (Urine sed) 1+ [facility] Basic Metabolic Profile (BMP )on 10-19-2024 BUN/CRE 13.0 RATIO Normal 10-20 [facility] Comment on above: Performed By: #### L 500.2500 ####[facility] [address] [place], [address] Calcium [Mass/Vol] 7.9 mg/dL Normal 7.6-11.0 [facility] Comment on above: Performed By: #### L 500.2500 ####[facility] [address] [place], [address] Chloride [Moles/Vol] 103 mmol/L Normal 98-108 [facility] Comment on above: Performed By: #### L 500.2500 ####[facility] [address] [place], [address] CO2 [Moles/Vol] 17.7 mmol/L Low 21.0-32.0 [facility] Comment on above: Performed By: #### L 500.2500 ####[facility] [address] [place], [address] Creatinine [Mass/Vol] 6.21 mg/dL High 0.70-1.20 [facility] Comment on above: Performed By: #### L 500.2500 ####[facility] [address] [place], [address] ECRCL 11.27 ml/min Low 50-250 [facility] Comment on above: Performed By: #### L 500.2500 ####[facility] [address] [place], [address] GAP 17 High 5-15 [facility] Comment on above: Performed By: #### L 500.2500 ####[facility] [address] [place], [address] GFR/1.73 sq M.predicted among non-blacks MDRD (S/P/Bld) [Vol rate/Area] 9 mL/min/{1.73_m2} Low >60 [facility] Comment on above: Result Comment: mL/m in/1.73m2 CKD-EPI Creatinine Equation (2020) Performed By: #### L 500.2500 ####[facility] [address] [place], [address] Glucose [Mass/Vol] 151 mg/dL High 70-99 [facility] Comment on above: Performed By: #### L 500.2500 ####[facility] [address] [place], [address] Potassium [Moles/Vol] 3.9 mmol/L Normal 3.3-5.1 [facility] Comment on above: Performed By: #### L 500.2500 ####[facility] [address] [place], [address] Sodium [Moles/Vol] 138 mmol/L Normal 133-145 [facility] Comment on above: Performed By: #### L 500.2500 ####[facility] [address] [place], [address] Urea nitrogen [Mass/Vol] 81 mg/dL High 4-19 [facility] Comment on above: Performed By: #### L 500.2500 ####[facility] [address] [place], [address] BUN/CRE 13.4 RATIO Normal 10-20 [facility] Comment on above: Performed By: #### L 500.2500 ####[facility] [address] [place], [address] Calcium [Mass/Vol] 8.1 mg/dL Normal 7.6-11.0 [facility] Comment on above: Performed By: #### L 500.2500 ####[facility] [address] [place], [address] Chloride [Moles/Vol] 102 mmol/L Normal 98-108 [facility] Comment on above: Performed By: #### L 500.2500 ####[facility] [address] [place], [address] CO2 [Moles/Vol] 17.4 mmol/L Low 21.0-32.0 [facility] Comment on above: Performed By: #### L 500.2500 ####[facility] [address] [place], [address] Creatinine [Mass/Vol] 5.97 mg/dL High 0.70-1.20 [facility] Comment on above: Performed By: #### L 500.2500 ####[facility] [address] [place], [address] ECRCL 11.72 ml/min Low 50-250 [facility] Comment on above: Performed By: #### L 500.2500 ####[facility] [address] [place], [address] GAP 17 High 5-15 [facility] Comment on above: Performed By: #### L 500.2500 ####[facility] [address] [place], [address] GFR/1.73 sq M.predicted among non-blacks MDRD (S/P/Bld) [Vol rate/Area] 9 mL/min/{1.73_m2} Low >60 [facility] Comment on above: Result Comment: mL/m in/1.73m2 CKD-EPI Creatinine Equation (2020) Performed By: #### L 500.2500 ####[facility] [address] [place], [address] Glucose [Mass/Vol] 157 mg/dL High 70-99 [facility] Comment on above: Performed By: #### L 500.2500 ####[facility] [address] [place], [address] Potassium [Moles/Vol] 4.2 mmol/L Normal 3.3-5.1 [facility] Comment on above: Performed By: #### L 500.2500 ####[facility] [address] [place], [address] Sodium [Moles/Vol] 136 mmol/L Normal 133-145 [facility] Comment on above: Performed By: #### L 500.2500 ####[facility] [address] [place], [address] Urea nitrogen [Mass/Vol] 80 mg/dL High 4-19 [facility] Comment on above: Performed By: #### L 500.2500 ####[facility] [address] [place], [address] BUN/CRE 13.7 RATIO Normal 10-20 [facility] Comment on above: Performed By: #### L 500.2500 ####[facility] [address] [place], [address] Calcium [Mass/Vol] 8.1 mg/dL Normal 7.6-11.0 [facility] Comment on above: Performed By: #### L 500.2500 ####[facility] [address] [place], [address] Chloride [Moles/Vol] 103 mmol/L Normal 98-108 [facility] Comment on above: Performed By: #### L 500.2500 ####[facility] [address] [place], [address] CO2 [Moles/Vol] 12.2 mmol/L Low 21.0-32.0 [facility] Comment on above: Performed By: #### L 500.2500 ####[facility] [address] [place], [address] Creatinine [Mass/Vol] 5.79 mg/dL High 0.70-1.20 [facility] Comment on above: Performed By: #### L 500.2500 ####[facility] [address] [place], [address] ECRCL 12.08 ml/min Low 50-250 [facility] Comment on above: Performed By: #### L 500.2500 ####[facility] [address] [place], [address] GAP 18 High 5-15 [facility] Comment on above: Performed By: #### L 500.2500 ####[facility] [address] [place], [address] GFR/1.73 sq M.predicted among non-blacks MDRD (S/P/Bld) [Vol rate/Area] 10 mL/min/{1.73_m2} Low >60 [facility] Comment on above: Result Comment: mL/m in/1.73m2 CKD-EPI Creatinine Equation (2020) Performed By: #### L 500.2500 ####[facility] [address] [place], [address] Glucose [Mass/Vol] 172 mg/dL High 70-99 [facility] Comment on above: Performed By: #### L 500.2500 ####[facility] [address] [place], [address] Potassium [Moles/Vol] 4.2 mmol/L Normal 3.3-5.1 [facility] Comment on above: Result Comment: Hemo lysis present, Results??could be affected.?? Performed By: #### L 500.2500 ####[facility] [address] [place], [address] Sodium [Moles/Vol] 133 mmol/L Normal 133-145 [facility] Comment on above: Performed By: #### L 500.2500 ####[facility] [address] [place], [address] Urea nitrogen [Mass/Vol] 79 mg/dL High 4-19 [facility] Comment on above: Performed By: #### L 500.2500 ####[facility] [address] [place], [address] BUN/CRE 13.8 RATIO Normal 10-20 [facility] Comment on above: Performed By: #### L 500.2500 ####[facility] [address] [place], [address] Calcium [Mass/Vol] 8.1 mg/dL Normal 7.6-11.0 [facility] Comment on above: Performed By: #### L 500.2500 ####[facility] [address] [place], [address] Chloride [Moles/Vol] 102 mmol/L Normal 98-108 [facility] Comment on above: Performed By: #### L 500.2500 ####[facility] [address] [place], [address] CO2 [Moles/Vol] 15.4 mmol/L Low 21.0-32.0 [facility] Comment on above: Performed By: #### L 500.2500 ####[facility] [address] [place], [address] Creatinine [Mass/Vol] 5.72 mg/dL High 0.70-1.20 [facility] Comment on above: Performed By: #### L 500.2500 ####[facility] [address] [place], [address] ECRCL 12.23 ml/min Low 50-250 [facility] Comment on above: Performed By: #### L 500.2500 ####[facility] [address] [place], [address] GAP 18 High 5-15 [facility] Comment on above: Performed By: #### L 500.2500 ####[facility] [address] [place], [address] GFR/1.73 sq M.predicted among non-blacks MDRD (S/P/Bld) [Vol rate/Area] 10 mL/min/{1.73_m2} Low >60 [facility] Comment on above: Result Comment: mL/m in/1.73m2 CKD-EPI Creatinine Equation (2020) Performed By: #### L 500.2500 ####[facility] [address] [place], [address] Glucose [Mass/Vol] 167 mg/dL High 70-99 [facility] Comment on above: Performed By: #### L 500.2500 ####[facility] [address] [place], [address] Potassium [Moles/Vol] 4.3 mmol/L Normal 3.3-5.1 [facility] Comment on above: Performed By: #### L 500.2500 ####[facility] [address] [place], [address] Sodium [Moles/Vol] 135 mmol/L Normal 133-145 [facility] Comment on above: Performed By: #### L 500.2500 ####[facility] [address] [place], [address] Urea nitrogen [Mass/Vol] 79 mg/dL High 4-19 [facility] Comment on above: Performed By: #### L 500.2500 ####[facility] [address] [place], [address] Bedside Glucoseon 10-19-2024 FINGERSTICK GLU 157 mg/dL High 74-106 [facility] Comment on above: Result Comment: MARKY GEMENT OF PATIENT CARE PER NURSING PROTOCOL Performed By: #### L 501.080 ####[facility] [address] [place], [address] FINGERSTICK GLU 161 mg/dL High 74-106 [facility] Comment on above: Result Comment: MARKY GEMENT OF PATIENT CARE PER NURSING PROTOCOL Performed By: #### L 501.080 ####[facility] [address] [place], [address] FINGERSTICK GLU 114 mg/dL High -106 [facility] Comment on above: Result Comment: MARKY GEMENT OF PATIENT CARE PER NURSING PROTOCOL Performed By: #### L 501.080 ####[facility] [address] [place], [address] Bilirubin, totalOrdered By: Nathalia Garcia on 10-19-2024 Bilirubin [Mass/Vol] 0.51 mg/dL 0.00-1.30 [facility] Blood Gases by CPSon 025 LUIS MIGUEL TEST Positive Normal [facility] Comment on above: Performed By: #### L 9000.0800 ####[facility] [address] [place], [address] Base excess Calc (Bld) [Moles/Vol] -5 mmol/L Low -2 to +2 [facility] Comment on above: Performed By: #### L 9000.0800 ####[facility] [address] [place], [address] Blood Gas Type ART Normal [facility] Comment on above: Performed By: #### L 9000.0800 ####[facility] [address] [place], [address] CO2 [Moles/Vol] 19 mmol/L Normal [place] [facility] Comment on above: Performed By: #### L 9000.0800 ####[facility] [address] [place], [address] FI02 4.0 Normal [facility] Comment on above: Performed By: #### L 9000.0800 ####[facility] [address] [place], [address] HCO3 (Bld) [Moles/Vol] 18.0 mmol/L Low 22-26 [facility] Comment on above: Performed By: #### L 9000.0800 ####[facility] [address] [place], [address] Mode Not entered [facility] Comment on above: Performed By: #### L 9000.0800 ####[facility] [address] [place], [address] O2 Delivery Dev Cannula Normal [facility] Comment on above: Performed By: #### L 9000.0800 ####[facility] [address] [place], [address] pCO2 23.7 mmHg Low 35-45 [facility] Comment on above: Performed By: #### L 9000.0800 ####[facility] [address] [place], [address] pH (Bld) 7.49 [pH] High 7.35-7.45 [facility] Comment on above: Performed By: #### L 9000.0800 ####[facility] [address] [place], [address] PO2 107 mmHG High 75-100 [facility] Comment on above: Performed By: #### L 9000.0800 ####[facility] [address] [place], [address] SITE R Radial Normal [facility] Comment on above: Performed By: #### L 9000.0800 ####[facility] [address] [place], [address] SO2 99 Normal 95-99 [facility] Comment on above: Performed By: #### L 9000.0800 ####[facility] [address] [place], [address] CBC W/Diff, Automatedon 10-07 Absolute Neut Normal 2.0-7.7 [facility] Comment on above: Order Comment: Comme nts: If not done in prior 24 hours Result Comment: ALRE YAS DONE WITHIN 24 HOURS OF ORDER Performed By: #### L 300.3900, L300.4310, L100.0100 ####[facility] [address] [place], [address] HCT Normal 40-54 [facility] Comment on above: Order Comment: Comme nts: If not done in prior 24 hours Result Comment: ALRE YAS DONE WITHIN 24 HOURS OF ORDER Performed By: #### L 300.3900, L300.4310, L100.0100 ####[facility] [address] [place], [address] HGB Normal 13.0-16.5 [facility] Comment on above: Order Comment: Comme nts: If not done in prior 24 hours Result Comment: ALRE YAS DONE WITHIN 24 HOURS OF ORDER Performed By: #### L 300.3900, L300.4310, L100.0100 ####[facility] [address] [place], [address] MCH Normal 27.0-32.0 [facility] Comment on above: Order Comment: Comme nts: If not done in prior 24 hours Result Comment: ALRE YAS DONE WITHIN 24 HOURS OF ORDER Performed By: #### L 300.3900, L300.4310, L100.0100 ####[facility] [address] [place], [address] MCHC Normal 32-36 [facility] Comment on above: Order Comment: Comme nts: If not done in prior 24 hours Result Comment: ALRE YAS DONE WITHIN 24 HOURS OF ORDER Performed By: #### L 300.3900, L300.4310, L100.0100 ####[facility] [address] [place], [address] MCV Normal 80-94 [facility] Comment on above: Order Comment: Comme nts: If not done in prior 24 hours Result Comment: ALRE YAS DONE WITHIN 24 HOURS OF ORDER Performed By: #### L 300.3900, L300.4310, L100.0100 ####[facility] [address] [place], [address] NEUT% Normal 47-70 [facility] Comment on above: Order Comment: Comme nts: If not done in prior 24 hours Result Comment: ALRE YAS DONE WITHIN 24 HOURS OF ORDER Performed By: #### L 300.3900, L300.4310, L100.0100 ####[facility] [address] [place], [address] PLT Normal 150-450 [facility] Comment on above: Order Comment: Comme nts: If not done in prior 24 hours Result Comment: ALRE YAS DONE WITHIN 24 HOURS OF ORDER Performed By: #### L 300.3900, L300.4310, L100.0100 ####[facility] [address] [place], [address] RBC Normal 4.6-6.2 [facility] Comment on above: Order Comment: Comme nts: If not done in prior 24 hours Result Comment: ALRE YAS DONE WITHIN 24 HOURS OF ORDER Performed By: #### L 300.3900, L300.4310, L100.0100 ####[facility] [address] [place], [address] RDW CV Normal 11.6-14.6 [facility] Comment on above: Order Comment: Comme nts: If not done in prior 24 hours Result Comment: ALRE YAS DONE WITHIN 24 HOURS OF ORDER Performed By: #### L 300.3900, L300.4310, L100.0100 ####[facility] [address] [place], [address] RDW SD Normal 35.1-43.9 [facility] Comment on above: Order Comment: Comme nts: If not done in prior 24 hours Result Comment: ALRE YAS DONE WITHIN 24 HOURS OF ORDER Performed By: #### L 300.3900, L300.4310, L100.0100 ####[facility] [address] [place], [address] WBC Normal 4.4-11.0 [facility] Comment on above: Order Comment: Comme nts: If not done in prior 24 hours Result Comment: ALRE YAS DONE WITHIN 24 HOURS OF ORDER Performed By: #### L 300.3900, L300.4310, L100.0100 ####[facility] [address] [place], [address] SMEAR COMMENT SCANNED Normal [facility] Comment on above: Result Comment: LEFT SHIFT: BANDS PRESENT 1+LYMPHOPENIA PRESENT 1+ Performed By: #### L 100.0100, L501.2300 ####[facility] [address] [place], [address] CPK Total, Creatine Kinaseon 10-19-2024 CPK TOTAL 8103 U/L High 24-195 [facility] Comment on above: Performed By: #### L 501.3620, L501.5200, L500.4050 ####[facility] [address] [place], [address] Chest 1 View (Portable)on Chest 1 View (Portable) Normal [facility] Chest without Contraston 09- 13-2025 Chest without Contrast Normal [facility] Comprehensive Metabolic Prof ilon 10-19-2024 Albumin [Mass/Vol] 2.6 g/dL Low 3.4-4.8 [facility] Comment on above: Performed By: #### L 501.3620, L501.5200, L500.4050 ####[facility] [address] [place], [address] Albumin/Globulin [Mass ratio] 0.8 {ratio} Low 0.9-2.4 [facility] Comment on above: Performed By: #### L 501.3620, L501.5200, L500.4050 ####[facility] [address] [place], [address] ALK PHOS 75 U/L Normal 40-129 [facility] Comment on above: Performed By: #### L 501.3620, L501.5200, L500.4050 ####[facility] [address] [place], [address] ALT [Catalytic activity/Vol] 17 U/L Normal <=46 [facility] Comment on above: Performed By: #### L 501.3620, L501.5200, L500.4050 ####[facility] [address] [place], [address] AST [Catalytic activity/Vol] 318 U/L High <=37 [facility] Comment on above: Performed By: #### L 501.3620, L501.5200, L500.4050 ####[facility] [address] [place], [address] Bilirubin [Mass/Vol] 0.51 mg/dL Normal 0.00-1.30 [facility] Comment on above: Performed By: #### L 501.3620, L501.5200, L500.4050 ####[facility] [address] [place], [address] BUN/CRE 14.2 RATIO Normal 10-20 [facility] Comment on above: Performed By: #### L 501.3620, L501.5200, L500.4050 ####[facility] [address] [place], [address] Calcium [Mass/Vol] 7.7 mg/dL Normal 7.6-11.0 [facility] Comment on above: Performed By: #### L 501.3620, L501.5200, L500.4050 ####[facility] [address] [place], [address] Chloride [Moles/Vol] 105 mmol/L Normal 98-108 [facility] Comment on above: Performed By: #### L 501.3620, L501.5200, L500.4050 ####[facility] [address] [place], [address] CO2 [Moles/Vol] 15.6 mmol/L Low 21.0-32.0 [facility] Comment on above: Performed By: #### L 501.3620, L501.5200, L500.4050 ####[facility] [address] [place], [address] Creatinine [Mass/Vol] 5.18 mg/dL High 0.70-1.20 [facility] Comment on above: Performed By: #### L 501.3620, L501.5200, L500.4050 ####[facility] [address] [place], [address] ECRCL 13.51 ml/min Low 50-250 [facility] Comment on above: Performed By: #### L 501.3620, L501.5200, L500.4050 ####[facility] [address] [place], [address] GAP 16 High 5-15 [facility] Comment on above: Performed By: #### L 501.3620, L501.5200, L500.4050 ####[facility] [address] [place], [address] GFR/1.73 sq M.predicted among non-blacks MDRD (S/P/Bld) [Vol rate/Area] 11 mL/min/{1.73_m2} Low >60 [facility] Comment on above: Result Comment: mL/m in/1.73m2 CKD-EPI Creatinine Equation (2020) Performed By: #### L 501.3620, L501.5200, L500.4050 ####[facility] [address] [place], [address] Globulin (S) [Mass/Vol] 3.1 g/dL Normal 2.2-4.2 [facility] Comment on above: Performed By: #### L 501.3620, L501.5200, L500.4050 ####[facility] [address] [place], [address] Glucose [Mass/Vol] 124 mg/dL High 70-99 [facility] Comment on above: Performed By: #### L 501.3620, L501.5200, L500.4050 ####[facility] [address] [place], [address] Potassium [Moles/Vol] 4.2 mmol/L Normal 3.3-5.1 [facility] Comment on above: Performed By: #### L 501.3620, L501.5200, L500.4050 ####[facility] [address] [place], [address] Sodium [Moles/Vol] 137 mmol/L Normal 133-145 [facility] Comment on above: Performed By: #### L 501.3620, L501.5200, L500.4050 ####[facility] [address] [place], [address] T PROT 5.8 g/dL Low 5.9-8.4 [facility] Comment on above: Performed By: #### L 501.3620, L501.5200, L500.4050 ####[facility] [address] [place], [address] Urea nitrogen [Mass/Vol] 74 mg/dL High 4-19 [facility] Comment on above: Performed By: #### L 501.3620, L501.5200, L500.4050 ####[facility] [address] [place], [address] Consultation - Nephrologyon 10-19-2024 Consultation - Nephrology Normal [facility] Creatinine, Urine (random)on 10-19-2024 UR CREAT 70.10 mg/dL Normal 39.00-259.00 [facility] Comment on above: Performed By: #### L 502.0715, L400.0001, L501.5500, L501.1200 ####[facility] [address] [place], [address] Hemoglobinon 10-19-2024 Hemoglobin (Bld) [Mass/Vol] 11.0 g/dL Low 13.0-16.5 [facility] Comment on above: Performed By: #### L 100.1300 ####[facility] [address] [place], [address] Hemoglobin (Bld) [Mass/Vol] 9.9 g/dL Low 13.0-16.5 [facility] Comment on above: Performed By: #### L 100.1300 ####[facility] [address] [place], [address] Legionella Antigen Urineon 0 10-19-2024 LEGU Normal [facility] Comment on above: Performed By: #### M 300.4500, M300.4600 ####[facility] [address] [place], [address] M R Staph Aureus DNA by PCRo n 10-19-2024 MRSA DNA ASSAY Negative Normal Negative [facility] Comment on above: Performed By: #### L 8200.1000 ####[facility] [address] [place], [address] M100.019on 10-19-2024 M100.019 Negative Normal [facility] Comment on above: Performed By: #### M 100.019 ####[facility] [address] [place], [address] Magnesiumon 10-19-2024 Magnesium [Mass/Vol] 1.7 mg/dL Normal 1.5-2.2 [facility] Comment on above: Performed By: #### L 501.3620, L501.5200, L500.4050 ####[facility] [address] [place], [address] Natriuretic peptide.B prohor salbador N-Terminal [Mass/volume] in Serum or PlasmaOrdered By: Kenrick Rosario on 10-19-2024 Natriuretic peptide.B prohormone N-Terminal [Mass/Vol] 2366 pg/mL High <900 [facility] No Panel InformationOrdered By: Nathalia Garcia on 10-19-2024 318 U/L High <38 [facility] Partial Thromboplast Timeon 10-19-2024 aPTT Coag (Bld) [Time] 79.6 s High 24.1-36.2 [facility] Comment on above: Performed By: #### L 300.4310 ####[facility] [address] [place], [address] aPTT Coag (Bld) [Time] 34.1 s Normal 24.1-36.2 [facility] Comment on above: Order Comment: Comme nts: If not done in prior 24 hours Performed By: #### L 300.3900, L300.4310, L100.0100 ####[facility] [address] [place], [address] Phosphoruson 10-19-2024 Phosphate [Mass/Vol] 3.6 mg/dL Normal 2.7-4.5 [facility] Comment on above: Performed By: #### L 100.0100, L501.2300 ####[facility] [address] [place], [address] Pro- Brain NATRIURETIC PEPTI Chery 10-19-2024 Natriuretic peptide B (Bld) [Mass/Vol] 2366 pg/mL High <=900 [facility] Comment on above: Result Comment: Hear t Failure Unlikely: < 300 pg/mLHeart Failure Likely< 50 Years: > 450 pg/mL50-75 Years: > 900 pg/mL>75 Years: > 1800 pg/mL Performed By: #### L 503.8871 ####[facility] [address] [place], [address] Prothrombin Time w/INRon INR Coag (PPP) [Relative time] 1.6 {INR} Normal [facility] Comment on above: Order Comment: Comme nts: If not done in prior 24 hours Performed By: #### L 300.3900, L300.4310, L100.0100 ####[facility] [address] [place], [address] PT Coag (PPP) [Time] 19.0 s High 11.7-14.9 [facility] Comment on above: Order Comment: Comme nts: If not done in prior 24 hours Performed By: #### L 300.3900, L300.4310, L100.0100 ####[facility] [address] [place], [address] Prothrombin timeOrdered By: Nathalia Garcia on 10-19-2024 PT Coag (PPP) [Time] 19.0 s High 11.7-14.9 [facility] RESPIRATORY PANEL MOLECULARo n 09-13-2025 RP PANEL Normal [facility] Comment on above: Performed By: #### M 100.638 ####[facility] [address] [place], [address] Random urine creatinine makenzie urement (mass/volume)Ordered By: Nathalia Garcia on 10-19-2024 Creatinine Unsp time (U) [Mass/Vol] 70.10 mg/dL 39.00-259.00 [facility] Respiratory pathogens detect ion panel by molecular detection methodOrdered By: Nathalia Garcia on 10-19-2024 Respiratory pathogens DNA and RNA panel ADELA+probe (Resp) [facility] Wvqk-jqy-9Gbjawle By: Dwight Garcia on 10-19-2024 SARS-CoV-2 (COVID-19) RNA ADELA+probe Ql (Unsp spec) [facility] Serum globulin measurementOr dered By: Nathalia Garcia on 10-19-2024 Globulin (S) [Mass/Vol] 3.1 g/dL 2.2-4.2 [facility] Serum or plasma alanine gandhi otransferase (ALT) measurementOrdered By: Nathalia Garcia on 10-19-2024 ALT [Catalytic activity/Vol] 17 U/L <47 [facility] Serum or plasma albumin makenzie urement (mass/volume)Ordered By: Nathalia Garcia on 10-19-2024 Albumin [Mass/Vol] 2.6 g/dL Low 3.4-4.8 [facility] Serum or plasma albumin/glob ulin mass ratioOrdered By: Nathalia Garcia on 10-19-2024 Albumin/Globulin [Mass ratio] 0.8 {ratio} Low 0.9-2.4 [facility] Serum or plasma alkaline manju sphatase measurementOrdered By: Nathalia Garcia on 10-19-2024 ALP [Catalytic activity/Vol] 75 U/L 40-129 [facility] Strep pneumoniae Antig(UR,CS F)on 10-19-2024 STPAG Normal [facility] Comment on above: Performed By: #### M 300.6650, M300.4600 ####[facility] [address] [place], [address] Total proteinOrdered By: Jessica angelo Jose on 10-19-2024 Protein [Mass/Vol] 5.8 g/dL Low 5.9-8.4 [facility] Urea Nitrogen, Urineon 10-19 URINE UREA 159 mg/dL Normal NO RANGE EST. [facility] Comment on above: Performed By: #### L 502.0715, L400.0001, L501.5500, L501.1200 ####[facility] [address] [place], [address] Urinalysis, Completeon 10-19 AMORPHOUS 1+ Normal [facility] Comment on above: Order Comment: DOREEN TER SPECIMEN Performed By: #### L 502.0715, L400.0001, L501.5500, L501.1200 ####[facility] [address] [place], [address] RBC 10-25 SEEN Normal 0-5 [facility] Comment on above: Order Comment: DOREEN TER SPECIMEN Performed By: #### L 502.0715, L400.0001, L501.5500, L501.1200 ####[facility] [address] [place], [address] WBC 0-5 SEEN Normal 0-5 [facility] Comment on above: Order Comment: DOREEN TER SPECIMEN Performed By: #### L 502.0715, L400.0001, L501.5500, L501.1200 ####[facility] [address] [place], [address] BACTERIA 0 SEEN Normal None Seen [facility] Comment on above: Order Comment: DOREEN TER SPECIMEN Performed By: #### L 502.0715, L400.0001, L501.5500, L501.1200 ####[facility] [address] [place], [address] EPI,SQUAMOUS 0 SEEN Normal 0-5 [facility] Comment on above: Order Comment: DOREEN TER SPECIMEN Performed By: #### L 502.0715, L400.0001, L501.5500, L501.1200 ####[facility] [address] [place], [address] Mucus Ql (Urine sed) 0 SEEN Normal [facility] Comment on above: Order Comment: DOREEN [facility] SPECIMEN Performed By: #### L 502.0715, L400.0001, L501.5500, L501.1200 ####[facility] [address] [place], [address] Urine Cultureon 10-19-2024 URC Culture exhibits no growth. Normal [facility] Comment on above: Performed By: #### M 100.2200 ####[facility] [address] [place], [address] Urine Legionella pneumophila antigen detectionOrdered By: Nathalia Garcia on 10-19-2024 L. pneumophila Ag Ql (U) [facility] Urine Sodiumon 10-19-2024 Sodium (U) [Moles/Vol] 94 mmol/L Normal Not Establ. [facility] Comment on above: Performed By: #### L 502.0715, L400.0001, L501.5500, L501.1200 ####[facility] [address] [place], [address] Urine sodium measurement (mo les/volume)Ordered By: Nathalia Garcia on 10-19-2024 Sodium (U) [Moles/Vol] 94 mmol/L Not Establ. [facility] aPTTon 10-19-2024 aPTT [facility] Basic Metabolic Profile (BMP )on 10-18-2024 BUN/CRE 20.5 RATIO High 10-20 [facility] Comment on above: Performed By: #### L 500.2500 ####[facility] [address] [place], [address] Calcium [Mass/Vol] 8.2 mg/dL Normal 7.6-11.0 [facility] Comment on above: Performed By: #### L 500.2500 ####[facility] [address] [place], [address] Chloride [Moles/Vol] 105 mmol/L Normal 98-108 [facility] Comment on above: Performed By: #### L 500.2500 ####[facility] [address] [place], [address] CO2 [Moles/Vol] 15.7 mmol/L Low 21.0-32.0 [facility] Comment on above: Performed By: #### L 500.2500 ####[facility] [address] [place], [address] Creatinine [Mass/Vol] 2.85 mg/dL High 0.70-1.20 [facility] Comment on above: Performed By: #### L 500.2500 ####[facility] [address] [place], [address] ECRCL 24.55 ml/min Low 50-250 [facility] Comment on above: Performed By: #### L 500.2500 ####[facility] [address] [place], [address] GAP 18 High 5-15 [facility] Comment on above: Performed By: #### L 500.2500 ####[facility] [address] [place], [address] GFR/1.73 sq M.predicted among non-blacks MDRD (S/P/Bld) [Vol rate/Area] 23 mL/min/{1.73_m2} Low >60 [facility] Comment on above: Result Comment: mL/m in/1.73m2 CKD-EPI Creatinine Equation (2020) Performed By: #### L 500.2500 ####[facility] [address] [place], [address] Glucose [Mass/Vol] 176 mg/dL High 70-99 [facility] Comment on above: Performed By: #### L 500.2500 ####[facility] [address] [place], [address] Potassium [Moles/Vol] 4.8 mmol/L Normal 3.3-5.1 [facility] Comment on above: Result Comment: Hemo lysis present, Results??could be affected.?? Performed By: #### L 500.2500 ####[facility] [address] [place], [address] Sodium [Moles/Vol] 138 mmol/L Normal 133-145 [facility] Comment on above: Performed By: #### L 500.2500 ####[facility] [address] [place], [address] Urea nitrogen [Mass/Vol] 58 mg/dL High 4-19 [facility] Comment on above: Performed By: #### L 500.2500 ####[facility] [address] [place], [address] Bedside Glucoseon 10-18-2024 FINGERSTICK GLU 126 mg/dL High 74-106 [facility] Comment on above: Result Comment: MARKY GEMENT OF PATIENT CARE PER NURSING PROTOCOL Performed By: #### L 501.080 ####[facility] [address] [place], [address] FINGERSTICK GLU 141 mg/dL High 74-106 [facility] Comment on above: Result Comment: MARKY GEMENT OF PATIENT CARE PER NURSING PROTOCOL Performed By: #### L 501.080 ####[facility] [address] [place], [address] FINGERSTICK GLU 146 mg/dL High 74-106 [facility] Comment on above: Result Comment: MARKY GEMENT OF PATIENT CARE PER NURSING PROTOCOL Performed By: #### L 501.080 ####[facility] [address] [place], [address] FINGERSTICK GLU 167 mg/dL High 74-106 [facility] Comment on above: Result Comment: MARKY PATEL OF PATIENT CARE PER NURSING PROTOCOL Performed By: #### L 501.080 ####[facility] [address] [place], [address] [facility] LUIS MIGUEL TEST Positive Normal [facility] Comment on above: Performed By: #### L 9000.0800 ####[facility] [address] [place], [address] Base excess Calc (Bld) [Moles/Vol] -5 mmol/L Low -2 to +2 [facility] Comment on above: Performed By: #### L 9000.0800 ####[facility] [address] [place], [address] Blood Gas Type ART Normal [facility] Comment on above: Performed By: #### L 9000.0800 ####[facility] [address] [place], [address] CO2 [Moles/Vol] 20 mmol/L Normal [facility] Comment on above: Performed By: #### L 9000.0800 ####[facility] [address] [place], [address] FI02 21.0 Normal [facility] Comment on above: Performed By: #### L 9000.0800 ####[facility] [address] [place], [address] HCO3 (Bld) [Moles/Vol] 18.9 mmol/L Low 22-26 [facility] Comment on above: Performed By: #### L 9000.0800 ####[facility] [address] [place], [address] Mode Not entered Normal [facility] Comment on above: Performed By: #### L 9000.0800 ####[facility] [address] [place], [address] O2 Delivery Dev Room Air Normal [facility] Comment on above: Performed By: #### L 9000.0800 ####[facility] [address] [place], [address] pCO2 26.1 mmHg Low 35-45 [facility] Comment on above: Performed By: #### L 9000.0800 ####[facility] [address] [place], [address] pH (Bld) 7.47 [pH] High 7.35-7.45 [facility] Comment on above: Performed By: #### L 9000.0800 ####[facility] [address] [place], [address] PO2 65 mmHG Low 75-100 [facility] Comment on above: Performed By: #### L 9000.0800 ####[facility] [address] [place], [address] SITE R Radial Normal [facility] Comment on above: Performed By: #### L 9000.0800 ####[facility] [address] [place], [address] SO2 94 Low 95-99 [facility] Comment on above: Performed By: #### L 9000.0800 ####[facility] [address] [place], [address] CO2 (BldV) [Moles/Vol]Ordere d By: Nathalia Garcia on 10-18-2024 CO2 [Moles/Vol] 23 mmol/L 23-33 [facility] CPK Total, Creatine Kinaseon 10-18-2024 CPK TOTAL 82188 U/L High 24-195 [facility] Comment on above: Result Comment: Hemo lysis present, Results??could be affected.?? Performed By: #### L 500.4100, L501.0510 ####[facility] [address] [place], [place], [address] Calculated very low density lipoprotein (VLDL) cholesterol measurementOrdered By: Kenrick Rosario on 10-18-2024 Calculated very low density lipoprotein (VLDL) cholesterol measurement 18 mg/dL 5-40 [facility] Echo Complete W/ Contraston 10-18-2024 Echo Complete W/ Contrast Normal [facility] Echocardiogram study reportO rdered By: James Sanchez on 10-18-2024 Study report [facility] Work Phone: LDL calc ser/plasOrdered By: Kenrick Rosario on 10-18-2024 Cholesterol in LDL [Mass/Vol] 31 mg/dL [facility] Lipid Profileon 10-18-2024 CHOL:HDL 2.40 Normal [facility] Comment on above: Performed By: #### L 500.4100, L501.3620 ####[facility] [address] [place], [place], [address] Cholesterol [Mass/Vol] 84 mg/dL Normal <=200 [facility] Comment on above: Result Comment: Chol esterol level, Desirable <200 mg/dLBorderline high cholesterol 200-239 mg/dLHigh cholesterol >=240 mg/dLRecommendations of the NCEP Adult Treatment Panel for thefollowing risk-cutoff thresholds for the [place] [facility]. Performed By: #### L 500.4100, L501.3620 ####[facility] [address] [place], [place], [address] Cholesterol in HDL [Mass/Vol] 35 mg/dL Low [facility] Comment on above: Result Comment: Mamta onal Cholesterol Education Program (NCEP) guidelines:<40 mg/dL: Low HDL-cholesterol (major risk factor for CHD)>= 60 mg/dL: High HDL-cholesterol (negative risk factor forCHD)HDL-cholesterol is affected by a number of factors, e.g.smoking, exercise, hormones, sex and age. Performed By: #### L 500.4100, L501.3620 ####[facility] [address] [place], [address] Cholesterol in LDL [Mass/Vol] 31 mg/dL Normal [facility] Comment on above: Result Comment: Bord smhfpa=000-427 mg/dL Higher Hnfz=857 mg/dL or greaterFriedwald Equation for LDL-C Performed By: #### L 500.4100, L501.3620 ####[facility] [address] [place], [address] Cholesterol in VLDL [Mass/Vol] 18 mg/dL Normal 5-40 [facility] Comment on above: Performed By: #### L 500.4100, L501.3620 ####[facility] [address] [place], [address] Triglyceride [Mass/Vol] 89 mg/dL Normal [facility] Comment on above: Result Comment: The drugs N-Acetylcysteine and Metamizole may falselydepress this assay.Normal range: <150 mg/dLBorderline High: 150-199 mg/dLHigh: 200-499 mg/dLVery High: >500 mg/dL Performed By: #### L 500.4100, L501.3620 ####[facility] [address] [place], [address] Serum or plasma cholesterol in HDL measurement (mass/volume)Ordered By: Kenrick Rosario on 10-18-2024 Cholesterol in HDL [Mass/Vol] 35 mg/dL Low >40 [facility] Serum or plasma cholesterol measurement (mass/volume)Ordered By: Kenrick Rosario on 10-18-2024 Cholesterol [Mass/Vol] 84 mg/dL <201 [facility] Troponin T HS 4 HRon 025 Trop T High Sen 67 ng/L Invalid Interpretation Code <=22 [facility] Comment on above: Result Comment: Hemo lysis present, Results??could be affected.??Critical Result(s) Called at: 10-18-24 00:01 TO CONNIERPORAL by: SONIA REDDING??Results read back by same. Performed By: #### L 499.0043 ####[facility] [address] [place], [address] Urinalysis, Completeon 10-18 EPI,SQUAMOUS 0-5 SEEN Normal 0-5 [facility] Comment on above: Order Comment: COLOR OF URINE MAY AFFECT DIPSTICK RESULTS.CLEAN CATCH Performed By: #### L 400.0001 ####[facility] [address] [place], [address] RBC > 100 SEEN Normal 0-5 [facility] Comment on above: Order Comment: COLOR OF URINE MAY AFFECT DIPSTICK RESULTS.CLEAN CATCH Performed By: #### L 400.0001 ####[facility] [address] [place], [address] WBC 10-25 SEEN Normal 0-5 [facility] Comment on above: Order Comment: COLOR OF URINE MAY AFFECT DIPSTICK RESULTS.CLEAN CATCH Performed By: #### L 400.0001 ####[facility] [address] [place], [address] BACTERIA 0 SEEN Normal None Seen [facility] Comment on above: Order Comment: COLOR OF URINE MAY AFFECT DIPSTICK RESULTS.CLEAN CATCH Performed By: #### L 400.0001 ####[facility] [address] [place], [address] Mucus Ql (Urine sed) 0 SEEN Normal [facility] Comment on above: Order Comment: COLOR OF URINE MAY AFFECT DIPSTICK RESULTS.CLEAN CATCH Performed By: #### L 400.0001 ####[facility] [address] [place], [address] Urine cultureOrdered By: Jessica Garcia on 10-18-2024 Bacteria identified Cx Nom (U) Culture exhibits no growth. [facility] Venous Blood Gason Blood Gas Type SYED Normal [facility] Comment on above: Performed By: #### L 9000.0810 ####[facility] [address] [place], [address] CO2 [Moles/Vol] 23 mmol/L Normal 23-33 [facility] Comment on above: Performed By: #### L 9000.0810 ####[facility] [address] [place], [address] HCO3 (Bld) [Moles/Vol] 22 mmol/L Normal 22-26 [facility] Comment on above: Performed By: #### L 9000.0810 ####[facility] [address] [place], [address] O2 Delivery Dev Not entered Normal [facility] Comment on above: Performed By: #### L 9000.0810 ####[facility] [address] [place], [address] SITE Not entered Normal [facility] Comment on above: Performed By: #### L 9000.0810 ####[facility] [address] [place], [address] VBG BE -2 mmol/L Low -1.0-3.5 [facility] Comment on above: Performed By: #### L 9000.0810 ####[facility] [address] [place], [address] VBG pCO2 32.5 mmHg Low 41-51 [facility] Comment on above: Performed By: #### L 9000.0810 ####[facility] [address] [place], [address] VBG pH 7.44 High 7.32-7.42 [facility] Comment on above: Performed By: #### L 9000.0810 ####[facility] [address] [place], [address] VBG PO2 162 mmHg High 25-40 [facility] Comment on above: Performed By: #### L 9000.0810 ####[facility] [address] [place], [place], [address] VBG SO2 100 High 50-70 [facility] Comment on above: Performed By: #### L 9000.0810 ####[facility] [address] [place], [place], [address] Venous blood base excess carlos surementOrdered By: Nathalia Garcia on 10-18-2024 Base excess Calc (BldV) [Moles/Vol] -2 mmol/L Low -1.0-3.5 [facility] Venous blood bicarbonate carlos surementOrdered By: Nathalia Garcia on 10-18-2024 HCO3 (Bld) [Moles/Vol] 22 mmol/L 22-26 [facility] Venous blood pH measurementO rdered By: Nathalia Garcia on 10-18-2024 pH (BldV) 7.44 [pH] High 7.32-7.42 [facility] Venous blood partial pressur e of carbon dioxide measurementOrdered By: Nathalia Garcia on 10-18-2024 CO2 (BldV) [Partial pressure] 32.5 mm[Hg] Low 41-51 [facility] Venous blood partial pressur e of oxygen measurementOrdered By: Nathalia Garcia on 10-18-2024 Oxygen (BldV) [Partial pressure] 162 mm[Hg] High 25-40 [facility] Absolute lymphocyte countOrd ered By: Gamal Irwin on 10-17-2024 Lymphocytes Auto (Unsp spec) [#/Vol] 0.41 10*3/uL Low 0.83-4.51 [facility] Absolute neutrophil countOrd ered By: Gamal Irwin on 10-17-2024 Neutrophils (Bld) [#/Vol] 13.7 10*3/uL High 2.0-7.7 [facility] Activated partial thrombopla stin time (aPTT) in platelet poor plasma by coagulation aOrdered By: Gamal Iriwn on 10-17-2024 aPTT Coag (PPP) [Time] 33.3 s 24.1-36.2 [facility] Anion gap in Serum or Plasma Ordered By: Gamal Irwin on 10-17-2024 Anion gap [Moles/Vol] 19 mmol/L High 5-15 [facility] Assessment of wrist artery p atency prior to arterial punctureOrdered By: Gamal Irwin on 10-17-2024 Arterial patency Wrist artery --pre arterial puncture Positive [facility] Automated lymphocyte count a s percentage of total leukocytesOrdered By: Gamal Irwin on 10-17-2024 Lymphocytes/100 WBC Auto (Unsp spec) 2.7 % Low 19-41 [facility] BUN/creatinine ratioOrdered By: Gamal Irwin on 10-17-2024 Urea nitrogen/Creatinine [Mass ratio] 20.1 mg/mg High 10-20 [facility] Basophil percentageOrdered B y: Gamal Irwin on 10-17-2024 Basophils/100 WBC (Bld) 0.5 % 0-1 [facility] Bedside Glucoseon 10-17-2024 FINGERSTICK GLU 320 mg/dL High 74-106 [facility] Comment on above: Result Comment: MARKY PATEL OF PATIENT CARE PER NURSING PROTOCOL Performed By: #### L 501.080 ####[facility] [address] [place], [place], [address] Bilirubin, totalOrdered By: Gamal Irwin on 10-17-2024 Bilirubin [Mass/Vol] 0.76 mg/dL 0.00-1.30 [facility] Blood Gases by CPSon 025 LUIS MIGUEL TEST Positive Normal [facility] Comment on above: Performed By: #### L 9000.0800 ####[facility] [address] [place], [address] Base excess Calc (Bld) [Moles/Vol] -3 mmol/L Low -2 to +2 [facility] Comment on above: Performed By: #### L 9000.0800 ####[facility] [address] [place], [address] Blood Gas Type ART Normal [facility] Comment on above: Performed By: #### L 9000.0800 ####[facility] [address] [place], [address] CO2 [Moles/Vol] 21 mmol/L Normal [facility] Comment on above: Performed By: #### L 8999.0800 ####[facility] [address] [place], [address] FI02 21.0 Normal [facility] Comment on above: Performed By: #### L 8999.0800 ####[facility] [address] [place], [address] HCO3 (Bld) [Moles/Vol] 20.2 mmol/L Low 22-26 [facility] Comment on above: Performed By: #### L 8999.0800 ####[facility] [address] [place], [address] Mode Not entered Normal [facility] Comment on above: Performed By: #### L 0.0800 ####[facility] [address] [place], [address] O2 Delivery Dev Room Air [facility] Comment on above: Performed By: #### L 0.0800 ####[facility] [address] [place], [address] pCO2 26.1 mmHg Low 35-45 [facility] Comment on above: Performed By: #### L 0.0800 ####[facility] [address] [place], [address] pH (Bld) 7.50 [pH] High 7.35-7.45 [facility] Comment on above: Performed By: #### L 0.0800 ####[facility] [address] [place], [address] PO2 70 mmHG Low 75-100 [facility] Comment on above: Performed By: #### L 0.0800 ####[facility] [address] [place], [address] SITE L Radial Normal [facility] Comment on above: Performed By: #### L 9000.0800 ####[facility] [address] [place], [address] SO2 96 Normal 95-99 [facility] Comment on above: Performed By: #### L 9000.0800 ####[facility] [address] [place], [address] Blood base excess determinat ionOrdered By: Gamal Irwin on 10-17-2024 Base excess Calc (BldV) [Moles/Vol] -3 mmol/L Low -2-2 [facility] Blood bicarbonate measuremen tOrdered By: Gamal Irwin on 10-17-2024 HCO3 (Bld) [Moles/Vol] 20.2 mmol/L Low 22-26 [facility] Blood cultureOrdered By: Sekou Rosario on 10-17-2024 Bacteria identified Cx Nom (Bld) No growth in 5 days. [facility] Bacteria identified Cx Nom (Bld) No growth in 5 days. [facility] Brain/Head without Contrasto n 10-17-2024 Brain/Head without Contrast Normal [facility] CBC W/Diff, Automatedon 10-07 Absolute Lymph 0.41 X10 3/uL Low 0.83-4.51 [facility] Comment on above: Performed By: #### L 300.3900, L500.4050, L503.6005, L100.0100, L501.3620, L300.4310 ####[facility] [address] [place], [address] Absolute Neut 13.7 X10 3/uL High 2.0-7.7 [facility] Comment on above: Performed By: #### L 300.3900, L500.4050, L503.6005, L100.0100, L501.3620, L300.4310 ####[facility] [address] [place], [address] Basophils/100 WBC (Bld) 0.5 % Normal 0-1 [facility] Comment on above: Performed By: #### L 300.3900, L500.4050, L503.6005, L100.0100, L501.3620, L300.4310 ####[facility] [address] [place], [address] Eosinophils/100 WBC (Bld) 0.8 % Normal 0-5 [facility] Comment on above: Performed By: #### L 300.3900, L500.4050, L503.6005, L100.0100, L501.3620, L300.4310 ####[facility] [address] [place], [address] Erythrocyte distribution width (RBC) [Ratio] 12.9 % Normal 11.6-14.6 [facility] Comment on above: Performed By: #### L 300.3900, L500.4050, L503.6005, L100.0100, L501.3620, L300.4310 ####[facility] [address] [place], [address] Hematocrit (Bld) [Volume fraction] 41.0 % Normal 40-54 [facility] Comment on above: Performed By: #### L 300.3900, L500.4050, L503.6005, L100.0100, L501.3620, L300.4310 ####[facility] [address] [place], [address] Hemoglobin (Bld) [Mass/Vol] 13.7 g/dL Normal 13.0-16.5 [facility] Comment on above: Performed By: #### L 300.3900, L500.4050, L503.6005, L100.0100, L501.3620, L300.4310 ####[facility] [address] [place], [address] IG% 0.300 Normal 0.0-0.9 [facility] Comment on above: Result Comment: IG% - Immature Granulocytes (promyelocytes, myelocytes andmetamyelocytes) > 1% indicates that a LEFT SHIFT is Present. Performed By: #### L 300.3900, L500.4050, L503.6005, L100.0100, L501.3620, L300.4310 ####[facility] [address] [place], [address] Lymphocytes/100 WBC (Bld) 2.7 % Low 19-41 [facility] Comment on above: Performed By: #### L 300.3900, L500.4050, L503.6005, L100.0100, L501.3620, L300.4310 ####[facility] [address] [place], [address] MCH (RBC) [Entitic mass] 30.6 pg Normal 27.0-32.0 [facility] Comment on above: Performed By: #### L 300.3900, L500.4050, L503.6005, L100.0100, L501.3620, L300.4310 ####[facility] [address] [place], [address] MCHC (RBC) [Mass/Vol] 33.4 g/dL Normal 32-36 [facility] Comment on above: Performed By: #### L 300.3900, L500.4050, L503.6005, L100.0100, L501.3620, L300.4310 ####[facility] [address] [place], [address] MCV (RBC) [Entitic vol] 91.5 fL Normal 80-94 [facility] Comment on above: Performed By: #### L 300.3900, L500.4050, L503.6005, L100.0100, L501.3620, L300.4310 ####[facility] [address] [place], [address] Monocytes/100 WBC (Bld) 7.1 % Normal 0-10 [facility] Comment on above: Performed By: #### L 300.3900, L500.4050, L503.6005, L100.0100, L501.3620, L300.4310 ####[facility] [address] [place], [address] Neutrophils/100 WBC (Bld) 88.6 % High 47-70 [facility] Comment on above: Performed By: #### L 300.3900, L500.4050, L503.6005, L100.0100, L501.3620, L300.4310 ####[facility] [address] [place], [address] Nucleated RBC (Bld) [#/Vol] 0 10*3/uL Normal 0-5 [facility] Comment on above: Performed By: #### L 300.3900, L500.4050, L503.6005, L100.0100, L501.3620, L300.4310 ####[facility] [address] [place], [address] Platelet mean volume (Bld) [Entitic vol] 12.2 fL High 6.2-12.0 [facility] Comment on above: Performed By: #### L 300.3900, L500.4050, L503.6005, L100.0100, L501.3620, L300.4310 ####[facility] [address] [place], [address] Platelets (Bld) [#/Vol] 275 10*3/uL Normal 150-450 [facility] Comment on above: Performed By: #### L 300.3900, L500.4050, L503.6005, L100.0100, L501.3620, L300.4310 ####[facility] [address] [place], [address] RBC (Bld) [#/Vol] 4.48 10*6/uL Low 4.6-6.2 [facility] Comment on above: Performed By: #### L 300.3900, L500.4050, L503.6005, L100.0100, L501.3620, L300.4310 ####[facility] [address] [place], [address] RDW SD 43.2 fl Normal 35.1-43.9 [facility] Comment on above: Performed By: #### L 300.3900, L500.4050, L503.6005, L100.0100, L501.3620, L300.4310 ####[facility] [address] [place], [address] WBC (Bld) [#/Vol] 15.5 10*3/uL High 4.4-11.0 [facility] Comment on above: Performed By: #### L 300.3900, L500.4050, L503.6005, L100.0100, L501.3620, L300.4310 ####[facility] [address] [place], [address] CPK Total, Creatine Kinaseon 10-17-2024 CPK TOTAL 42254 U/L High 24-195 [facility] Comment on above: Performed By: #### L 300.3900, L500.4050, L503.6005, L100.0100, L501.3620, L300.4310 ####[facility] [address] [place], [address] Carbon dioxide, total [Moles /volume] in Central venous bloodOrdered By: Gamal Irwin on 10-17-2024 CO2 [Moles/Vol] 21.0 mmol/L 21.0-32.0 [facility] Chest 1 View (Portable)on Chest 1 View (Portable) Normal [facility] Chloride assayOrdered By: Edilson Irwin on 10-17-2024 Chloride [Moles/Vol] 98 mmol/L 98-108 [facility] Comprehensive Metabolic Prof ilon 10-17-2024 Albumin [Mass/Vol] 4.0 g/dL Normal 3.4-4.8 [facility] Comment on above: Performed By: #### L 300.3900, L500.4050, L503.6005, L100.0100, L501.3620, L300.4310 ####[facility] [address] [place], [address] Albumin/Globulin [Mass ratio] 0.9 {ratio} Normal 0.9-2.4 [facility] Comment on above: Performed By: #### L 300.3900, L500.4050, L503.6005, L100.0100, L501.3620, L300.4310 ####[facility] [address] [place], [address] ALK PHOS 104 U/L Normal 40-129 [facility] Comment on above: Performed By: #### L 300.3900, L500.4050, L503.6005, L100.0100, L501.3620, L300.4310 ####[facility] [address] [place], [address] ALT [Catalytic activity/Vol] 77 U/L High <=46 [facility] Comment on above: Performed By: #### L 300.3900, L500.4050, L503.6005, L100.0100, L501.3620, L300.4310 ####[facility] [address] [place], [address] AST [Catalytic activity/Vol] 392 U/L High <=37 [facility] Comment on above: Performed By: #### L 300.3900, L500.4050, L503.6005, L100.0100, L501.3620, L300.4310 ####[facility] [address] [place], [address] Bilirubin [Mass/Vol] 0.76 mg/dL Normal 0.00-1.30 [facility] Comment on above: Performed By: #### L 300.3900, L500.4050, L503.6005, L100.0100, L501.3620, L300.4310 ####[facility] [address] [place], [address] BUN/CRE 20.1 RATIO High 10-20 [facility] Comment on above: Performed By: #### L 300.3900, L500.4050, L503.6005, L100.0100, L501.3620, L300.4310 ####[facility] [address] [place], [address] Calcium [Mass/Vol] 9.5 mg/dL Normal 7.6-11.0 [facility] Comment on above: Performed By: #### L 300.3900, L500.4050, L503.6005, L100.0100, L501.3620, L300.4310 ####[facility] [address] [place], [address] Chloride [Moles/Vol] 98 mmol/L Normal 98-108 [facility] Comment on above: Performed By: #### L 300.3900, L500.4050, L503.6005, L100.0100, L501.3620, L300.4310 ####[facility] [address] [place], [address] CO2 [Moles/Vol] 21.0 mmol/L Normal 21.0-32.0 [facility] Comment on above: Performed By: #### L 300.3900, L500.4050, L503.6005, L100.0100, L501.3620, L300.4310 ####[facility] [address] [place], [address] Creatinine [Mass/Vol] 2.76 mg/dL High 0.70-1.20 [facility] Comment on above: Performed By: #### L 300.3900, L500.4050, L503.6005, L100.0100, L501.3620, L300.4310 ####[facility] [address] [place], [address] ECRCL 25.35 ml/min Low 50-250 [facility] Comment on above: Performed By: #### L 300.3900, L500.4050, L503.6005, L100.0100, L501.3620, L300.4310 ####[facility] [address] [place], [address] GAP 19 High 5-15 [facility] Comment on above: Performed By: #### L 300.3900, L500.4050, L503.6005, L100.0100, L501.3620, L300.4310 ####[facility] [address] [place], [address] GFR/1.73 sq M.predicted among non-blacks MDRD (S/P/Bld) [Vol rate/Area] 24 mL/min/{1.73_m2} Low >60 [facility] Comment on above: Result Comment: mL/m in/1.73m2 CKD-EPI Creatinine Equation (2020) Performed By: #### L 300.3900, L500.4050, L503.6005, L100.0100, L501.3620, L300.4310 ####[facility] [address] [place], [address] Globulin (S) [Mass/Vol] 4.3 g/dL High 2.2-4.2 [facility] Comment on above: Performed By: #### L 300.3900, L500.4050, L503.6005, L100.0100, L501.3620, L300.4310 ####[facility] [address] [place], [address] Glucose [Mass/Vol] 344 mg/dL High 70-99 [facility] Comment on above: Performed By: #### L 300.3900, L500.4050, L503.6005, L100.0100, L501.3620, L300.4310 ####[facility] [address] [place], [address] Potassium [Moles/Vol] 4.5 mmol/L Normal 3.3-5.1 [facility] Comment on above: Performed By: #### L 300.3900, L500.4050, L503.6005, L100.0100, L501.3620, L300.4310 ####[facility] [address] [place], [address] Sodium [Moles/Vol] 138 mmol/L Normal 133-145 [facility] Comment on above: Performed By: #### L 300.3900, L500.4050, L503.6005, L100.0100, L501.3620, L300.4310 ####[facility] [address] [place], [address] T PROT 8.2 g/dL Normal 5.9-8.4 [facility] Comment on above: Performed By: #### L 300.3900, L500.4050, L503.6005, L100.0100, L501.3620, L300.4310 ####[facility] [address] [place], [address] Urea nitrogen [Mass/Vol] 55 mg/dL High 4-19 [facility] Comment on above: Performed By: #### L 300.3900, L500.4050, L503.6005, L100.0100, L501.3620, L300.4310 ####[facility] [address] [place], [address] Emergency Department Summary on 10-17-2024 Emergency Department Summary Normal [facility] Eosinophil percentageOrdered By: Gamal Irwin on 10-17-2024 Eosinophils/100 WBC (Bld) 0.8 % 0-5 [facility] Erythrocyte distribution wid th ratioOrdered By: Gamal Irwin on 10-17-2024 Erythrocyte distribution width (RBC) [Ratio] 12.9 % 11.6-14.6 [facility] Erythrocyte distribution wid th standard deviationOrdered By: Gamal Irwin on 10-17-2024 Erythrocyte distribution width (RBC) [Ratio] 43.2 fl 35.1-43.9 [facility] Folate [Moles/volume] in Ser um or PlasmaOrdered By: Kenrick Rosario on 10-17-2024 Folate [Moles/Vol] 38.40 ng/mL High 4.60-34.80 [facility] Folates,Serum (Folic Acid)on 10-17-2024 FOLATES,SERUM 38.40 ng/mL High 4.60-34.80 [facility] Comment on above: Result Comment: Hemo lysis, Results will be affected, Requires Recollection. Performed By: #### L 506.0200, L501.9985, L503.6005, L501.9910, L501.9520, M200.1000 ####[facility] [address] [place], [address] Glomerular filtration rate ( GFR) estimation/1.73 sq m using serum, plasma, or whole bOrdered By: Gamal Irwin on 10-17-2024 GFR/1.73 sq M.predicted among non-blacks MDRD (S/P/Bld) [Vol rate/Area] 24 mL/min/{1.73_m2} Low >60 [facility] Comment on above: mL/min/1.73m2 CKD-EP I Creatinine Equation (2020) Glucose measurement at bedsi deOrdered By: Gamal Irwin on 10-17-2024 Glucose [Mass/Vol] 320 mg/dL High 74-106 [facility] Comment on above: MANAGEMENT OF PATIEN T CARE PER NURSING PROTOCOL H AND P Exam - Hospitaliston 10-17-2024 H&P Exam - Hospitalist Normal [facility] Hematocrit Auto (Bld) [Volum e fraction]Ordered By: Gamal Irwin on 10-17-2024 Hematocrit (Bld) [Volume fraction] 41.0 % 40-54 [facility] Hemoglobin A1con 10-17-2024 HbA1c (Bld) [Mass fraction] 8.1 % High <=5.6 [facility] Comment on above: Result Comment: Norm al < 5.7 % Prediabetic 5.7 - 6.4 % Diabetic >or= 6.5 % Please note range changes. Performed By: #### L 506.0200, L501.9985, L503.6005, L501.9910, L501.9520, M200.1000 ####[facility] [address] [place], [place], [address] Hemoglobin A1c percentageOrd ered By: Kenrick Rosario on 10-17-2024 HbA1c (Bld) [Mass fraction] 8.1 % High <5.7 [facility] Hemoglobin measurementOrdere d By: Gamal Irwin on 10-17-2024 Hemoglobin (Bld) [Mass/Vol] 13.7 g/dL 13.0-16.5 [facility] Immature granulocytes/100 WB C Auto (Bld)Ordered By: Gamal Irwin on 10-17-2024 Immature granulocytes/100 WBC (Bld) 0.300 % 0.0-0.9 [facility] Comment on above: IG% - Immature Granu locytes (promyelocytes, myelocytes and metamyelocytes) > 1% indicates that a LEFT SHIFT is Present. International normalized rat io (INR) calculationOrdered By: Gamal Irwin on 10-17-2024 INR Coag (Bld) [Relative time] 1.6 {INR} [facility] L501.4021on 10-17-2024 Trop T High Sen 64 ng/L Invalid Interpretation Code <=22 [facility] Comment on above: Result Comment: Crit ical Result(s) Called LSPARR at: 2024 by:ADIEL??Results read back by same. Performed By: #### L 501.4021 ####[facility] [address] [place], [address] Laboratory - Chemistry and C hemistry - challengeOrdered By: Gamal Irwin on 10-17-2024 AST [Catalytic activity/Vol] 392 U/L High <38 [facility] Lactic Acidon 10-17-2024 Lactate [Moles/Vol] 2.0 mmol/L Normal 0.0-2.0 [facility] Comment on above: Result Comment: Crit ical Result(s) Called at:10-17-24 23:32 TO CAROLE by:??SONIA REDDING Results read back by same. Performed By: #### L 503.6005 ####[facility] [address] [place], [place], [address] Lactate [Moles/Vol] 1.7 mmol/L Normal 0.0-2.0 [facility] Comment on above: Order Comment: Comme nts: if result >2, system reflex orders 2nd test @ 4hrsY Performed By: #### L 506.0200, L501.9985, L503.6005, L501.9910, L501.9520, M200.1000 ####[facility] [address] [place], [place], [address] Lactate [Moles/Vol] 3.6 mmol/L Invalid Interpretation Code 0.0-2.0 [facility] Comment on above: Order Comment: Y Result Comment: Crit ical Result(s) Called LSPARR at: 2005 by:ADIEL??Results read back by same. Performed By: #### L 300.3900, L500.4050, L503.6005, L100.0100, L501.3620, L300.4310 ####[facility] [address] [place], [address] Lactic acid measurementOrder ed By: Gamal Irwin on 10-17-2024 Lactate [Moles/Vol] 3.6 mmol/L High 0.0-2.0 [facility] Comment on above: Critical Result(s) C gladis LSPARR at: 2006 by: ADIEL Results read back by same. MCV (mean corpuscular volume ) determinationOrdered By: Gamal Irwin on 10-17-2024 MCV (RBC) [Entitic vol] 91.5 fL 80-94 [facility] Mean corpuscular hemoglobin (MCH) determinationOrdered By: Gamalbala Irwin on 10-17-2024 MCH (RBC) [Entitic mass] 30.6 pg 27.0-32.0 [facility] Mean corpuscular hemoglobin concentration (MCHC) determinationOrdered By: Gamal Irwin on 10-17-2024 MCHC (RBC) [Mass/Vol] 33.4 g/dL 32-36 [facility] Mean platelet volume determi nationOrdered By: Gamal Irwin on 10-17-2024 Platelet mean volume (Bld) [Entitic vol] 12.2 fL High 6.2-12.0 [facility] Measurement, pHOrdered By: Gina Irwin on 10-17-2024 pH (Unsp spec) 7.50 [pH] High 7.35-7.45 [facility] Monocyte percentageOrdered B y: Gamal Irwin on 10-17-2024 Monocytes/100 WBC (Bld) 7.1 % 0-10 [facility] Neutrophil percentageOrdered By: Gamalbala Irwin on 10-17-2024 Neutrophils/100 WBC (Bld) 88.6 % High 47-70 [facility] No Panel InformationOrdered By: Gamal Irwin on 10-17-2024 Blood Gas Sample Site L Radial [facility] Blood Gas Specimen Type ART [facility] Blood Gas Vent Mode Not entered [facility] Oxygen Delivery Device Room Air [facility] Nucleated red blood cell per centageOrdered By: Gamal Irwin on 10-17-2024 Nucleated RBC/100 WBC (Bld) [Ratio] 0 % 0-5 [facility] PSA,Total - Annual Screenon 10-17-2024 PSA,TOT SCREEN 0.80 ng/mL Normal 0.02-4.00 [facility] Comment on above: Result Comment: This test was performed using the [employer] tPSAmethod. Measured values of a patient??sample can varydepending on the testing procedure used. PSA valuesdetermined on patient samples by different testingprocedures cannot be used interchangeably. If there is achange in PSA assays while monitoring therapy, sequentialtesting should be performed to confirm baseline values. Performed By: #### L 506.0200, L501.9985, L503.6005, L501.9910, L501.9520, M200.1000 ####[facility] [address] [place], [place], [address] Partial Thromboplast Timeon 10-17-2024 aPTT Coag (Bld) [Time] 33.3 s Normal 24.1-36.2 [facility] Comment on above: Performed By: #### L 300.3900, L500.4050, L503.6005, L100.0100, L501.3620, L300.4310 ####[facility] [address] [place], [place], [address] Platelet countOrdered By: Edilson Irwin on 10-17-2024 Platelets (Bld) [#/Vol] 275 10*3/uL 150-450 [facility] Potassium measurement (mass/ volume)Ordered By: Gamal Irwin on 10-17-2024 Potassium (Unsp spec) [Mass/Vol] 4.5 mmol/L 3.3-5.1 [facility] Prothrombin Time w/INRon INR Coag (PPP) [Relative time] 1.6 {INR} Normal [facility] Comment on above: Performed By: #### L 300.3900, L500.4050, L503.6005, L100.0100, L501.3620, L300.4310 ####[facility] [address] [place], [address] PT Coag (PPP) [Time] 19.7 s High 11.7-14.9 [facility] Comment on above: Performed By: #### L 300.3900, L500.4050, L503.6005, L100.0100, L501.3620, L300.4310 ####[facility] [address] [place], [address] Prothrombin timeOrdered By: Gamalbala Irwin on 10-17-2024 PT Coag (PPP) [Time] 19.7 s High 11.7-14.9 [facility] RBC Auto (Bld) [#/Vol]Ordere d By: Gamal Irwin on 10-17-2024 RBC (Bld) [#/Vol] 4.48 10*6/uL Low 4.6-6.2 [facility] Serum creatinine measurement (mass/volume)Ordered By: Gamal Irwin on 10-17-2024 Creatinine [Mass/Vol] 2.76 mg/dL High 0.70-1.20 [facility] Serum globulin measurementOr dered By: Gamal Irwin on 10-17-2024 Globulin (S) [Mass/Vol] 4.3 g/dL High 2.2-4.2 [facility] Serum glucose measurement (m ass/volume)Ordered By: Gamal Irwin on 10-17-2024 Glucose [Mass/Vol] 344 mg/dL High 70-99 [facility] Serum or plasma alanine gandhi otransferase (ALT) measurementOrdered By: Gamalbala Irwin on 10-17-2024 ALT [Catalytic activity/Vol] 77 U/L High <47 [facility] Serum or plasma albumin makenzie urement (mass/volume)Ordered By: Gamal Irwin on 10-17-2024 Albumin [Mass/Vol] 4.0 g/dL 3.4-4.8 [facility] Serum or plasma albumin/glob ulin mass ratioOrdered By: Gamalbala Irwin on 10-17-2024 Albumin/Globulin [Mass ratio] 0.9 {ratio} 0.9-2.4 [facility] Serum or plasma alkaline manju sphatase measurementOrdered By: Gamalbala Irwin on 10-17-2024 ALP [Catalytic activity/Vol] 104 U/L 40-129 [facility] Serum or plasma calcium makenzie urement (mass/volume)Ordered By: Gamalbala Irwin on 10-17-2024 Calcium [Mass/Vol] 9.5 mg/dL 7.6-11.0 [facility] Serum or plasma creatine kin ase activityOrdered By: Gamal Irwin on 10-17-2024 CK [Catalytic activity/Vol] 33744 U/L High 24-195 [facility] Serum or plasma urea nitroge n measurement (mass/volume)Ordered By: Gamalbala Irwin on 10-17-2024 Urea nitrogen [Mass/Vol] 55 mg/dL High 4-19 [facility] Sodium levelOrdered By: Gamalbala Irwin on 10-17-2024 Sodium [Moles/Vol] 138 mmol/L 133-145 [facility] TSH DL <= 0.005 mIU/L QnOrde red By: Kenrick Rosario on 10-17-2024 TSH Qn 0.834 uIU/mL 0.300-4.200 [facility] Thyroid Stim Hormone (TSH)on 10-17-2024 TSH 0.834 uIU/mL Normal 0.300-4.200 [facility] Comment on above: Performed By: #### L 506.0200, L501.9985, L503.6005, L501.9910, L501.9520, M200.1000 ####[facility] [address] [place], [address] Total carbon dioxide measure mentOrdered By: Gamalbala Irwin on 10-17-2024 CO2 [Moles/Vol] 21 mmol/L [facility] Total proteinOrdered By: Gamalbala Irwin on 10-17-2024 Protein [Mass/Vol] 8.2 g/dL 5.9-8.4 [facility] Troponin T HS 2 HRon 025 Trop T High Sen 69 ng/L Invalid Interpretation Code <=22 [facility] Comment on above: Result Comment: Crit ical Result(s) Called LSPARR at: 2115 by:ADIEL??Results read back by same. Performed By: #### L 499.0042 ####[facility] [address] [place], [place], [id number] Troponin T.cardiac [Mass/vol ume] in Serum or Plasma by High sensitivity methodOrdered By: Gamal Irwin on 10-17-2024 Troponin T.cardiac High sensitivity method [Mass/Vol] 67 ng/L Critically high <22 [facility] Troponin T.cardiac High sensitivity method [Mass/Vol] 69 ng/L Critically high <22 [facility] Comment on above: Critical Result(s) C alled LSPARR at: 2115 by: ADIEL Results read back by same. Troponin T.cardiac High sensitivity method [Mass/Vol] 64 ng/L Critically high <22 [facility] Comment on above: Critical Result(s) C alled LSPARR at: 2024 by: ADIEL Results read back by same. Vitamin B12on 10-17-2024 Cobalamin (Vitamin B12) [Mass/Vol] 680 pg/mL Normal 180-914 [facility] Comment on above: Performed By: #### L 503.0106 ####[facility] [address] [place], [place], [address] Vitamin B12 ser/plasOrdered By: Kenrick Rosario on 10-17-2024 Cobalamin (Vitamin B12) [Mass/Vol] 680 pg/mL 180-914 [facility] White blood cell (WBC) count Ordered By: Gamal Irwin on 10-17-2024 WBC (Bld) [#/Vol] 15.5 10*3/uL High 4.4-11.0 [facility] CNTHERAPYon 09-16-2024 CNTHERAPY OT/PT/Speech Visit (PTWS) FARRUKHGUSTAVO ([id number]) 1950 M Date Time Provider Department 09/16/24 10:45 AM MONA ROACH PTWS Date Time Provider Department Center 09/16/2024 10:45 AM [id number], SEAN PTBOOM Yeny Dawkins Reason for Visit: PT Discharge [752] Primary Visit Diagnosis:Abnormality of gait [R26.9] Other Visit Diagnosis:Parkinsonism , unspecified Parkinsonism type (HCC) [G20.C] Allergies As [...] tablet by mouth once daily. - Ipratropium [place] (ATROVENT) 21 mcg (0.03 %) nasal spray Use 1 [place] in the nose three times a day [...] Take 500 mg by mouth once daily. Automatic Packer Operator: Therapy (PT/OT/Speech/Resp) ID: [id number] 09/16/2024 11:05 AM Author: MONA ROACH Signed by MONA ROACH PT on 09/16/2024 at 11:05 AM Document text: Program_ID:[id number] Access Code: [email or web address] URL: [email or web address] Date: 09-16-2024 Prepared By: Mona Roach Program Notes Exercises - Sit to [...] weekly - 3 sets - 10 reps -- Normal [facility] THERAPY NTon 09-16-2024 THERAPY NT HNO ID: [id number] Author: MONA ROACH PT Service: ? Author Type: Physical Therapist Type: Therapy (PT/OT/Speech/Resp) Filed: 09/16/2024 11:05 Note Text: Program_ID:[id number] Access Code: [email or web address] URL: [email or web address] Date: 09-16-2024 Prepared By: Mona Roach Program Notes Exercises - Sit to [...] - 3 sets - 10 reps Normal [facility] CNOVSPon 08-06-2024 CNOVSP Visit (SP) Office (HEMAWS) GUSTAVO PATTON ([id number]) 1950 M Date Time Provider Department 08/06/24 4:00 PM EDITH HART During your visit today, we recorded the following information about you: Temperature Pulse Blood pressure Weight 97.6 degrees 83/minute 112/74 83 kg Edith Hart DO 08/06/2024 4:26 PM Signed Hematologic problem(s): 1) H/O RLE DVT. 2) IVC filter 2021. 3) Multiple strokes in differing vascular territories. 4) Elevated factor VIII:C; normal CRP. HPI: The patient is a 73-year-old male with a past medical history as outlined below. 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 He has underlying history of hypertension, diabetes mellitus, and diastolic heart failure. He was admitted to 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 He was diagnosed with left MCA infarct with petechial hemorrhage, transferred to [facility]. He also had left M1 occlusion. [...] to [facility] for poststroke inpatient rehabilitation therapies." IVC filter placed 04/20/2021. No procedure note indicating it was removed. 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 Left leg negative for acute DVT. Per Dr. Manley's most recent note, "Patient with recurrent strokes over the past couple [...] going to draw labs today but pt declined." Carotid arterial duplex ultrasound 04/2022 showed mild less than 50% stenosis of both the right and left extracranial internal carotid arteries. Patent and antegrade flow was observed in the vertebral arteries bilaterally. He was admitted again to [facility] 11/22/2022 for complaint of slurred speech and [...] on 11/24/2022. Most recent MRI brain from [facility] 11/22/2022 demonstrated acute infarct in the [...] delay since (more content not included)... Normal [facility] CRP [Mass/Vol] mg/L Normal <0.9 [facility] Comment on above: Order Comment: Ame husain Type: BLOOD SPECIMENOrdering Facility: [facility] Address: [address] [place] [address] Performed By: #### 1 988-5 ####[facility] LABIA [id number] [place] [address] [place] Fact VIII Act/Nor PPPon 07-0 Coagulation factor VIII activity actual/normal Coag (PPP) [Relative time] 221 % High 50-173 [facility] Comment on above: Order Comment: Ame husain Type: BLOOD SPECIMENOrdering Facility: [facility] Address: [address] [place] [address] Result Comment: The factor VIII clottable activity level is elevated. This can be observed during the acute phase response. Persistent elevation of factor VIII, however, has been shown to be a risk factor for venous thrombosis. Suggest rechecking the factor VIII level in 1-2 months. Performed By: #### 3 209-4 ####[facility] LABCLIA [id number] [place] [id number] [place] [id number] 07-30-2024 [id number] HNO ID: [id number] Author: MONA ROACH PT Service: ? Author Type: Physical Therapist Type: [id number] Filed: 07/30/2024 14:55 Note Text: [facility] Therapy Physical Therapy Plan of Care Certification Patient Name: Gustavo Patton : 1950 [facility] #: [id number] Date: 07/29/2024 To: Layne Manley Jr., MD From Therapist: Mona Roach PT RE: Patient Certification/ Recertification Your review, [...] in SLS to reflect decreased fall risk. [place] in home exercise program including cardiovascular exercise. Patient Goals: Get stronger, walk better Time Frame for Goals and Treatment : 09/29/24 Planned Interventions, Frequency, and Duration: Current Frequency: 1x/week Duration: 8 weeks Total Number of Visits Planned: 8 Planned Treatment Interventions: Therapeutic exercise (57747), Neuromuscular re-education (60732), Manual therapy (87860), Therapeutic activities (59407), Self-halfway management (87059), Patient/Family/Caregiv er Education, Body Mechanics Training PLAN FOR NEXT [...] reviewed the treatment plan for Gustavo Patton, [facility]# [id number] for the period of 07/29/24 -- 10/29/24, established on 07/29/2024. Signature certifies the need for therapy services. Normal [facility] CNTHERAPYon 07-29-2024 CNTHERAPY OT/PT/Speech Visit (PTWS) GUSTAVO PATTON ([id number]) 1950 M Date Time Provider Department 07/29/24 2:00 PM MONA ROACH PTBOOM Date Time Provider Department Center 07/29/2024 2:00 PM [id number], SEAN PTBOOM [employer] Reason for Visit: PT Eval [747] Primary Visit Diagnosis:Parkinsonism , unspecified Parkinsonism type (HCC) [G20.C] Other Visit Diagnosis:Abnormality of gait [R26.9] Allergies As of Date: 07/29/2024 (No Known Allergies) Date Reviewed: 07/12/2024 Reviewed by: Layne Manley Jr., MD - Fully Assessed Prescriptions [...] tablet by mouth once daily. - Ipratropium [place] (ATROVENT) 21 mcg (0.03 %) nasal spray Use 1 [place] in the nose three times a day [...] Take 500 mg by mouth once daily. Automatic Packer Operator: Addendum Therapy (PT/OT/Speech/Resp) ID: [id number] 07/29/2024 2:41 PM Author: MONA ROACH Signed by MONA ROACH PT on 07/29/2024 at 2:41 PM * * * This document replaces document [id number] * * * Document text: Program_ID:[id number] Access Code: [email or web address] URL: [email or web address] Date: 07-29-2024 Prepared By: Mona Roach Program Notes Exercises - Sidelying Hip [...] weekly - 3 sets - 10 reps -- Normal [facility] THERAPY NTon 07-29-2024 THERAPY NT HNO ID: [id number] Author: MONA ROACH PT Service: ? Author Type: Physical Therapist Type: Therapy (PT/OT/Speech/Resp) Filed: 07/29/2024 14:41 Note Text: Program_ID:[id number] Access Code: [email or web address] URL: [email or web address] Date: 07-29-2024 Prepared By: Mona Roach Program Notes Exercises - Sidelying Hip [...] - 3 sets - 10 reps Normal [facility] CNOVon 07-12-2024 CNOV Office Visit (KD ) GUSTAVO PATTON ([id number]) 1950 M Date Time Provider Department 07/12/24 1:00 PM LAYNE MANLEY JR During your visit today, we recorded the following information about you: Pulse Respiration Blood pressure Weight 97/minute 16/minute 113/72 84.8 kg Layne Manley Jr., MD 07/12/2024 1:55 PM Signed [...] like pt to follow up with his general manager oracle data cloud Dr. Dill to determine if further workup [...] to suggest vascular cause. D/w pt and resident caregiver dx of PD, physiology, testing, treatment and [...] concerns of parkinsonism. Patient presents with his entertainment & media correspondent for follow-up after starting this medication, notes [...] 3 times a day and patient and entertainment & media correspondent amenable, discussed increased risk of side effects with increasing this medication and they agree and understand. Discussed importance of physical activity, discussed physical therapy and patient amenable to this. Would like to continue at [facility] as he is called her in the past and will fax order for physical therapy over today. No falls since last appointment, discussed fall prevention with patient and entertainment & media correspondent. 2. Recurrent strokes (HCC) - ICD9: 434.91, [...] patient amenabl (more content not included)... Normal [facility] Arterial study reportOrdered By: Gustavo Malik on 05-01-2024 Noninvasive arteriosclerosis study report [facility] [address] [place] [address] Lower Ext Art Exam w/o Exercis 05/01/24 1104 MR#: [id number] Acct: [id number] Name: GUSTAVO PATTON Rep #:[id number] : 1950 73 From: Gustavo Malik MD Attending Dr: Dr. Fabien Leal DPM Status: REG CLI Ordering Dr: Fabien Leal DPJackeline Date: 05/01/24 Location: [facility] Sex: M C Admitted: Reason For Study [...] Ordering Physician: Fabien Leal Referring Physician: Tracie Abreu Performed By: Shilpi Black RVT 05/01/24 171 Date _ Gustavo Malik MD CC: DPM Dr. Fabien Leal; Dr. Tracie Abreu MD ~ Date Dictated: 05/01/24 1104 Date Transcribed: 05/01/241709 System Controller: Signed [facility] Other Phone: Lower Ext Art Exam w/o Exerc ed 05-01-2024 Lower Ext Art Exam w/o Exercis Normal [facility] Cardiology Visit Reporton Cardiology Visit Report Normal [facility] PT D/C Summary (1)on 01-25- 024 PT D/C Summary (1) Normal [facility] Absolute neutrophil countOrd ered By: Tracie Millanke on 01-12-2024 Neutrophils (Bld) [#/Vol] 6.5 10*3/uL 2.0-7.7 [facility] Basophil percentageOrdered B y: Tracie Joel on 01-12-2024 Basophils/100 WBC (Bld) 0.8 % 0-1 [facility] CBC W/Diff, Automatedon Absolute Lymph 2.33 X10 3/uL Normal 0.83-4.51 [facility] Comment on above: Order Comment: Order Date: 01/12/24Order Info: 0184-1 - CBCD Performed By: #### L 100.0100, L501.9985 ####[facility] [address] [place], [address] Absolute Neut 6.5 X10 3/uL Normal 2.0-7.7 [facility] Comment on above: Order Comment: Order Date: 01/12/24Order Info: 0184-1 - CBCD Performed By: #### L 100.0100, L501.9985 ####[facility] [address] [place], [address] Basophils/100 WBC (Bld) 0.8 % Normal 0-1 [facility] Comment on above: Order Comment: Order Date: 01/12/24Order Info: 0184-1 - CBCD Performed By: #### L 100.0100, L501.9985 ####[facility] [address] [place], [address] Eosinophils/100 WBC (Bld) 4.0 % Normal 0-5 [facility] Comment on above: Order Comment: Order Date: 01/12/24Order Info: 4-1 - CBCD Performed By: #### L 100.0100, L501.9985 ####[facility] [address] [place], [address] Erythrocyte distribution width (RBC) [Ratio] 12.7 % Normal 11.6-14.6 [facility] Comment on above: Order Comment: Order Date: 01/12/24Order Info: 0184-1 - CBCD Performed By: #### L 100.0100, L501.9985 ####[facility] [address] [place], [address] Hematocrit (Bld) [Volume fraction] 42.8 % Normal 40-54 [facility] Comment on above: Order Comment: Order Date: 01/12/24Order Info: 0184-1 - CBCD Performed By: #### L 100.0100, L501.9985 ####[facility] [address] [place], [address] Hemoglobin (Bld) [Mass/Vol] 13.1 g/dL Normal 13.0-16.5 [facility] Comment on above: Order Comment: Order Date: 01/12/24Order Info: 0184-1 - CBCD Performed By: #### L 100.0100, L501.9985 ####[facility] [address] [place], [address] IG% 0.300 Normal 0.0-0.9 [facility] Comment on above: Order Comment: Order Date: 01/12/24Order Info: 183- - CBCD Result Comment: IG% - Immature Granulocytes (promyelocytes, myelocytes andmetamyelocytes) > 1% indicates that a LEFT SHIFT is Present. Performed By: #### L 100.0100, L501.9985 ####[facility] [address] [place], [address] Lymphocytes/100 WBC (Bld) 22.8 % Normal 19-41 [facility] Comment on above: Order Comment: Order Date: 01/12/24Order Info: 183- - CBCD Performed By: #### L 100.0100, L501.9985 ####[facility] [address] [place], [address] MCH (RBC) [Entitic mass] 29.1 pg Normal 27.0-32.0 [facility] Comment on above: Order Comment: Order Date: 01/12/24Order Info: 018- - CBCD Performed By: #### L 100.0100, L501.9985 ####[facility] [address] [place], [address] MCHC (RBC) [Mass/Vol] 30.6 g/dL Low 32-36 [facility] Comment on above: Order Comment: Order Date: 01/12/24Order Info: 018- - CBCD Performed By: #### L 100.0100, L501.9985 ####[facility] [address] [place], [address] MCV (RBC) [Entitic vol] 95.1 fL High 80-94 [facility] Comment on above: Order Comment: Order Date: 01/12/24Order Info: 4-1 - CBCD Performed By: #### L 100.0100, L501.9985 ####[facility] [address] [place], [address] Monocytes/100 WBC (Bld) 8.5 % Normal 0-10 [facility] Comment on above: Order Comment: Order Date: 01/12/24Order Info: 4-1 - CBCD Performed By: #### L 100.0100, L501.9985 ####[facility] [address] [place], [address] Neutrophils/100 WBC (Bld) 63.6 % Normal 47-70 [facility] Comment on above: Order Comment: Order Date: 01/12/24Order Info: 4-1 - CBCD Performed By: #### L 100.0100, L501.9985 ####[facility] [address] [place], [address] Nucleated RBC (Bld) [#/Vol] 0 10*3/uL Normal 0-5 [facility] Comment on above: Order Comment: Order Date: 01/12/24Order Info: 018-1 - CBCD Performed By: #### L 100.0100, L501.9985 ####[facility] [address] [place], [address] Platelet mean volume (Bld) [Entitic vol] 12.0 fL Normal 6.2-12.0 [facility] Comment on above: Order Comment: Order Date: 01/12/24Order Info: 0184-1 - CBCD Performed By: #### L 100.0100, L501.9985 ####[facility] [address] [place], [address] Platelets (Bld) [#/Vol] 311 10*3/uL Normal 150-450 [facility] Comment on above: Order Comment: Order Date: 01/12/24Order Info: 0184-1 - CBCD Performed By: #### L 100.0100, L501.9985 ####[facility] [address] [place], [address] RBC (Bld) [#/Vol] 4.50 10*6/uL Low 4.6-6.2 [facility] Comment on above: Order Comment: Order Date: 01/12/24Order Info: 018- - CBCD Performed By: #### L 100.0100, L501.9985 ####[facility] [address] [place], [address] RDW SD 43.9 fl Normal 35.1-43.9 [facility] Comment on above: Order Comment: Order Date: 01/12/24Order Info: 183- - CBCD Performed By: #### L 100.0100, L501.9985 ####[facility] [address] [place], [address] WBC (Bld) [#/Vol] 10.2 10*3/uL Normal 4.4-11.0 [facility] Comment on above: Order Comment: Order Date: 01/12/24Order Info: 183- - CBCD Performed By: #### L 100.0100, L501.9985 ####[facility] [address] [place], [address] Eosinophil percentageOrdered By: Tracie Abreu on 01-12-2024 Eosinophils/100 WBC (Bld) 4.0 % 0-5 [facility] Erythrocyte distribution wid th ratioOrdered By: Tracie Joel on 01-12-2024 Erythrocyte distribution width (RBC) [Ratio] 12.7 % 11.6-14.6 [facility] Erythrocyte distribution wid th standard deviationOrdered By: Tracie Abreu on 01-12-2024 Erythrocyte distribution width (RBC) [Entitic vol] 43.9 fL 35.1-43.9 [facility] Hematocrit Auto (Bld) [Volum e fraction]Ordered By: Tracie Abreu on 01-12-2024 Hematocrit (Bld) [Volume fraction] 42.8 % 40-54 [facility] Hemoglobin A1con 01-12-2024 HbA1c (Bld) [Mass fraction] 7.6 % High 3.8-5.6 [facility] Comment on above: Order Comment: Order Date: 01/12/24Order Info: 4548-4 - A1C Result Comment: Norm al < 5.7 % Prediabetic 5.7 - 6.4 % Diabetic >or= 6.5 % Please note range changes. Performed By: #### L 100.0100, L501.9985 ####[facility] [address] [place], [address] Hemoglobin A1c percentageOrd ered By: Tracie Abreu on 01-12-2024 HbA1c (Bld) [Mass fraction] 7.6 % High 3.8-5.6 [facility] Comment on above: Normal < 5.7 % Predi abetic 5.7 - 6.4 % Diabetic >or= 6.5 % Please note range changes. Hemoglobin measurementOrdere d By: Tracie Abreu on 01-12-2024 Hemoglobin (Bld) [Mass/Vol] 13.1 g/dL 13.0-16.5 [facility] Immature granulocytes/100 WB C Auto (Bld)Ordered By: Tracie Abreu on 01-12-2024 Immature granulocytes/100 WBC (Bld) 0.300 % 0.0-0.9 [facility] Comment on above: IG% - Immature Granu locytes (promyelocytes, myelocytes and metamyelocytes) > 1% indicates that a LEFT SHIFT is Present. Lymphocytes Auto (Unsp spec) [#/Vol]Ordered By: Tracie Abreu on 01-12-2024 Lymphocytes (Bld) [#/Vol] 2.33 10*3/uL 0.83-4.5 1 [facility] Lymphocytes/100 WBC Auto (Un sp spec)Ordered By: Tracie Abreu on 01-12-2024 Lymphocytes/100 WBC (Bld) 22.8 % 19-41 [facility] MCV (mean corpuscular volume ) determinationOrdered By: Tracie Abreu on 01-12-2024 MCV (RBC) [Entitic vol] 95.1 fL High 80-94 [facility] Mean corpuscular hemoglobin (MCH) determinationOrdered By: Floalberto Joel on 01-12-2024 MCH (RBC) [Entitic mass] 29.1 pg 27.0-32.0 [facility] Mean corpuscular hemoglobin concentration (MCHC) determinationOrdered By: Floalberto Joel on 01-12-2024 MCHC (RBC) [Mass/Vol] 30.6 g/dL Low 32-36 [facility] Mean platelet volume determi nationOrdered By: Floon Joel on 01-12-2024 Platelet mean volume (Bld) [Entitic vol] 12.0 fL 6.2-12.0 [facility] Monocyte percentageOrdered B y: Floon Joel on 01-12-2024 Monocytes/100 WBC (Bld) 8.5 % 0-10 [facility] Neutrophil percentageOrdered By: Tracie Joel on 01-12-2024 Neutrophils/100 WBC (Bld) 63.6 % 47-70 [facility] Nucleated red blood cell per centageOrdered By: Floalberto Joel on 01-12-2024 Nucleated RBC/100 WBC (Bld) [Ratio] 0 % 0-5 [facility] Platelet countOrdered By: Kesha Abreu on 01-12-2024 Platelets (Bld) [#/Vol] 311 10*3/uL 150-450 [facility] RBC Auto (Bld) [#/Vol]Ordere d By: Tracie Joel on 01-12-2024 RBC (Bld) [#/Vol] 4.50 10*6/uL Low 4.6-6.2 [facility] White blood cell (WBC) count Ordered By: Tracie Abreu on 01-12-2024 WBC (Bld) [#/Vol] 10.2 10*3/uL 4.4-11.0 [facility] Re-Evaluation - PT (1)on Re-Evaluation - PT (1) Normal [facility] 12-21-2023 MARIANAN Telephone (KD) GUSTAVO PATTON ([id number]) 1950 M Date Time Provider Department 12/21/23 FALLON STEINER During your visit today, we recorded the following information about you: Erma Olsen RN 12/21/2023 3:52 PM Signed Patient's recent Neurology note (12/06/23) has been faxed to his PCP office at [phone], for their update and for continuation of care of patient. Erma Olsen RN Allergies As of Date: 12/21/2023 (No Known Allergies) Date Reviewed: 12/06/2023 Reviewed by: Fallon Steiner PA-C - Fully Assessed Reason for Visit: Patient Request [[id number]] Prescriptions as of 12/21/2023 - carbidopa-levodopa (SINEMET 25-100) 25-100 mg per tablet TAKE 1.5 TABLETS BY MOUTH THREE TIMES DAILY (AT 9AM, 1PM AND 5PM) - apixaban (ELIQUIS) 5 mg tab(s) Take 1 tablet by mouth two times a day. - multivitamin tablet Take 1 tablet by mouth once daily. - Ipratropium [place] (ATROVENT) 21 mcg (0.03 %) nasal spray Use 1 [place] in the nose three times a day [...] Date 12/21/2023 Noted Resolved Cerebrovascular accident (CVA) ([facility]) [I63.9] 04/01/2021 Diabetes (HCC) [E11.9] 04/01/2021 Deep vein thrombosis (DVT) of lower extremity (*04/02/2021 Dysphagia [R13.10] 04/02/2021 Cardiomyopathy (HCC) [I42.9] 04/03/2021 Language impairment [F80.9] 05/10/2023 Cerebral infarction due to embolism of left mid*05/24/2023 09/09/2023 Recurrent strokes (HCC) [I63.9] 07/17/2023 Encounter Status:Closed by ERMA OLSEN on 12/21/23 [facility] CNOVon 12-06-2023 CNOV Office Visit (KD ) GUSTAVO PATTON ([id number]) 1950 M Date Time Provider Department 12/06/23 [...] like pt to follow up with his general manager oracle data cloud Dr. Dill to determine if further workup [...] to suggest vascular cause. D/w pt and resident caregiver dx of PD, physiology, testing, treatment and [...] reevaluation in 8 weeks or sooner prn. Layne Manley MD CHIEF COMPLAINT: follow up HISTORY [...] gait, new, started sinemet. Patient presents with entertainment & media correspondent for follow-up appointment. At last appointment was started on Sinemet due to new shuffled gait. Patient states he has been responding well to the Sinemet. Labor Economics Professor states that he gets up very quickly [...] as pe (more content not included)... Normal [facility] 12-06-2023 MARIANAN Telephone (KD) GUSTAVO PATTON ([id number]) 1950 M Date Time Provider Department 12/06/23 FALLON STEINER During your visit today, we recorded the following information about you: Fallon Steiner PA-C 12/06/2023 1:13 PM Signed Please fax PT order to docplanner in [place]. Liv Shaw LPN 12/06/2023 2:10 PM Signed [...] tablet by mouth once daily. - Ipratropium [place] (ATROVENT) 21 mcg (0.03 %) nasal spray Use 1 [place] in the nose three times a day [...] Encounter Status:Closed by FALLON STEINER on 12/06/23 [facility] CNOVon 10-20-2023 CNOV Office Visit (NEMOWS ) GUSTAVO PATTON ([id number]) 1950 M Date Time Provider Department 10/20/23 10:40 AM LAYNE MANLEY JR During your visit today, we recorded the following information about you: Pulse Blood pressure Weight 86/minute 122/78 83.4 kg Layne Manley Jr., MD 10/20/2023 11:31 AM Signed [...] rare (<1.0%). Isolated VEs were occasional (2.0%, 24555), VE Couplets were rare (<1.0%, 70), and no VE Triplets were present. Ventricular Bigeminy and Trigeminy were present. Pt has also seen Dr. Alfreod Hart of [facility] and I have discussed plan with [...] stopping Plavix. Plan: -I will contact his PORTFOLIO MGR that sees him through the community care network via [facility] to update her on medication recommendations (Dorinda White, PORTFOLIO MGR [phone] -Rx apixaban 5 mg BID. -Stop Plavix. [...] is tr (more content not included)... Normal [facility] 10-20-2023 [facility] Telephone (KD) GUSTAVO PATTON ([id number]) 1950 M Date Time Provider Department 10/20/23 LAYNE MANLEY JR During your visit today, we recorded the following information about you: Liv Shaw LPN 10/20/2023 12:55 PM Signed Layne Manley Jr., MD P [facility] Neur Sindhu Nurse Please help pt schdule follow up with Dr. Aniyah MOREL. Please send copy of Zio monitor. Liv Shaw LPN 10/20/2023 1:15 PM Signed Called office notified fax will be coming for patient who needs appointment adriel, staff verified. Fax sent. Liv Shaw LPN October 20, 2023 1:15 PM Allergies As of Date: 10/20/2023 (No Known Allergies) Date Reviewed: 10/20/2023 Reviewed by: Layne Manley Jr., MD - Fully Assessed Prescriptions as of 10/20/2023 - carbidopa-levodopa (SINEMET) 25-100 mg per tablet Take 1 tablet at 9AM, 1PM and 5PM. - apixaban (ELIQUIS) 5 mg tab(s) Take 1 tablet by mouth two times a day. - multivitamin tablet Take 1 tablet by mouth once daily. - Ipratropium [place] (ATROVENT) 21 mcg (0.03 %) nasal spray Use 1 [place] in the nose three times a day [...] Encounter Status:Closed by LIV SHAW on 10/20/23 [facility] 10-03-2023 MARIANAN Telephone (HEMAWS) FARRUKHGUSTAVO ([id number]) 1950 M Date Time Provider Department 10/03/23 EDITH HART During your visit today, we recorded the following information about you: Fabian MelvinMasha 10/03/2023 11:46 AM Signed Please call Dorinda [phone]. She has questions regarding plavix and eliquis. Haydee Kelley LPN 10/03/2023 1:07 PM Signed Dorinda from [employer] is calling. Asking if pt is to stop Plavix as pt was started on Eliquis. Per OV note -Rx apixaban 5 mg BID. -Stop Plavix. -Okay to resume ASA for history of PVD (suggested by SYLVIE 12/2021). Relayed that to Dorinda. However pt went to picker box operator Rx, was $500, he did pick it up and pay for it but will not be able to do that every month. Will ask our social work coordinator first if there is a Copay card he can utilize. Dr Hart, is pt to follow up here or resume f/u with your recommendation to PCP. AGATA Mohan Samantha, LISW 10/03/2023 1:39 PM Signed Unfortunately since pt filled the script he is ineligible for the co-pay card. However, he could likely qualify for the patient assistance program through [employer]. I'll prepare the application and contact Dorinda and patient to discuss. JOSELINE Adkins-Payal Allergies As of Date: 10/03/2023 (No Known Allergies) Date Reviewed: 09/25/2023 Reviewed by: Cleveland Leary MA - Fully Assessed Reason for Visit: Medication Question [9488] Prescriptions as of 10/03/2023 - apixaban (ELIQUIS) 5 mg tab(s) Take 1 tablet by mouth two times a day. - multivitamin tablet Take 1 tablet by mouth once daily. - Ipratropium [place] (ATROVENT) 21 mcg (0.03 %) nasal spray Use 1 [place] in the nose three times a day [...] strokes (HCC) [I63.9] 07/17/2023 Encounter Status:Closed by LIA MERCEDES on 10/03/23 [facility] CNOVSPon 09-25-2023 CNOVSP Visit (SP) Office (HEMAWS) GUSTAVO PATTON ([id number]) 1950 M Date Time Provider Department 09/25/23 3:50 PM EDITH HART HEMKAIDEN During your visit today, we recorded the following information about you: Temperature Pulse Blood pressure Weight 98.3 degrees 83/minute 114/75 83.2 kg Edith Hart DO 10/01/2023 4:42 PM Signed Hematologic problem(s): 1) H/O RLE DVT. 2) IVC filter 2021. 3) Multiple strokes in differing vascular territories. 4) Elevated factor VIII:C; normal CRP. HPI: The patient is a 72-year-old male with a past medical history as outlined below. 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 He has underlying history of hypertension, diabetes mellitus, and diastolic heart failure. He was admitted to 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 He was diagnosed with left MCA infarct with petechial hemorrhage, transferred to [facility]. He also had left M1 occlusion. [...] to [facility] for poststroke inpatient rehabilitation therapies." IVC filter placed 04/20/2021. No procedure note indicating it was removed. 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 Left leg negative for acute DVT. Per Dr. Manley's most recent note, "Patient with recurrent strokes over the past couple [...] going to draw labs today but pt declined." Carotid arterial duplex ultrasound 04/2022 showed mild less than 50% stenosis of both the right and left extracranial internal carotid arteries. Patent and antegrade flow was observed in the vertebral arteries bilaterally. He was admitted again to [facility] 11/22/2022 for complaint of slurred speech and [...] on 11/24/2022. Most recent MRI brain from [facility] 11/22/2022 demonstrated acute infarct in the [...] and orthostasis. Has history of developmental delay [facility] (more content not included)... Normal [facility] MRA Head vessels WO contrast on 08-21-2023 * * *Final Report* * * DATE OF EXAM: Aug 21 2023 2:43PM [facility] 0272 - MRA BRAIN WO IVCON / PROCEDURE REASON: Cerebral infarction, unspecified mechanism (HCC) * * * * Physician Interpretation * * * * EXAMINATION: MRA BRAIN WO IVCON, MRA CAROTID WO IVCON CLINICAL HISTORY: Recurrent strokes. TECHNIQUE: Intracranial and extracranial 3D [id number] MRA with post-processing performed at the modality [...] basilar arteries. The proximal AICAs/PICAs, SCA's and towing pilot are patent without evidence of focal significant [...] configuration. Dominance: Left DIVISION OF RADIOLOGY Provider, [facility] - 08/21/2023 * * *Final Report* * * DATE OF EXAM: Aug 21 2023 2:43PM [facility] 0272 - MRA BRAIN WO IVCON / PROCEDURE REASON: Cerebral infarction, unspecified mechanism (HCC) * * * * Physician Interpretation * * * * EXAMINATION: MRA BRAIN WO IVCON, MRA CAROTID WO IVCON CLINICAL HISTORY: Recurrent strokes. TECHNIQUE: Intracranial and extracranial 3D ivsm-go-[id number] MRA with post-processing performed at the modality [...] basilar arteries. The proximal AICAs/PICAs, SCA's and towing pilot are patent without evidence of focal significant [...] by NASCET criteria. Patent cervical vertebral arteries. System Controller: ABHISHEK Transcribe Date/Time: Aug 21 2023 2:53P Dictated by : EDITH TOLBERT MD This examination was interpreted and the report reviewed and electronically signed by: EDITH TOLBERT MD on Aug 21 2023 3:10PM EST [facility] MRA Neck vessels WO contrast on 08-21-2023 * * *Final Report* * * DATE OF EXAM: Aug 21 2023 2:43PM [facility] 0275 - MRA CAROTID WO IVCON / PROCEDURE REASON: Cerebral infarction, unspecified mechanism (HCC) * * * * Physician Interpretation * * * * EXAMINATION: MRA BRAIN WO IVCON, MRA CAROTID WO IVCON CLINICAL HISTORY: Recurrent strokes. TECHNIQUE: Intracranial and extracranial 3D uzvj-qx-ydthym MRA with post-processing performed at the modality [...] basilar arteries. The proximal AICAs/PICAs, SCA's and towing pilot are patent without evidence of focal significant [...] configuration. Dominance: Left DIVISION OF RADIOLOGY Provider, [facility] - 08/21/2023 * * *Final Report* * * DATE OF EXAM: Aug 21 2023 2:43PM [facility] 0275 - MRA CAROTID WO IVCON / PROCEDURE REASON: Cerebral infarction, unspecified mechanism (HCC) * * * * Physician Interpretation * * * * EXAMINATION: MRA BRAIN WO IVCON, MRA CAROTID WO IVCON CLINICAL HISTORY: Recurrent strokes. TECHNIQUE: Intracranial and extracranial 3D qspn-el-mmrrea MRA with post-processing performed at the modality [...] basilar arteries. The proximal AICAs/PICAs, SCA's and towing pilot are patent without evidence of focal significant [...] by NASCET criteria. Patent cervical vertebral arteries. System Controller: ABHISHEK Transcribe Date/Time: Aug 21 2023 2:53P Dictated by : EDITH TOLBERT MD This examination was interpreted and the report reviewed and electronically signed by: EDITH TOLBERT MD on Aug 21 2023 3:10PM [facility] No Panel Informationon 08-20 IMPRESSION: Relative paucity of distal branches of the left MCA compatible with the remote cortical infarct in this vascular territory. Otherwise no evidence of significant large vessel intracranial occlusive disease. No significant stenosis in either carotid bifurcation by NASCET criteria. Patent cervical vertebral arteries. System Controller: PSCB Transcribe Date/Time: Aug 21 2023 2:53P Dictated by : EDITH TOLBERT MD This examination was interpreted and the report reviewed and electronically signed by: EDITH TOLBERT MD on Aug 21 2023 3:10PM [facility] DIVISION OF RADIOLOGY Radiology Study observation (narrative) [facility] No Panel InformationOrdered By: Ccf Provider on 08-21-2023 [facility] CNTHERAPYon 05-19-2023 CNTHERAPY OT/PT/Speech Visit (OTNOCA) GUSTAVO PATTON ([id number]) 1950 M Date Time Provider Department 05/19/23 12:45 PM CATHLEEN GOEL Date Time Provider Department Center 05/19/2023 12:45 PM [id number], JULIE A OTNOCA [facility] N Reason for Visit: OT Discharge [750] Occupational Therapy [504] Primary Visit Diagnosis:Cerebrovascu lar accident (CVA), unspecified mechanism (HCC) [I63.9] Other [...] WEEKS, THEN TAKE 2 TABS TWICE DAILY Letter Text [facility] CNPVirgen [facility]2023 [facility] GUSTAVO PATTON ([id number]) 1950 M Date Time Provider Department 05/11/23 CATHLEEN GOEL During your visit today, we recorded the following information about you: Cathleen Goel OT/Marixa 05/11/2023 1:12 PM Signed This therapist indicated that she could contact his sister after the behind the wheel assessment to indicate recommendations. Allergies As of Date: 05/11/2023 (No Known Allergies) Date Reviewed: 04/18/2023 Reviewed by: Fallon Steiner PA-C - Fully Assessed Reason for Visit: Results [95] Patient Update [1234] Cmt: This therapist called patient's sister who is DPOA and lives in [place] regarding Gustavo's recent clinical assessment results of [...] Of Date 05/11/2023 Noted Resolved Stroke (cerebrum) (HCC) [I63.9] 04/01/2021 Diabetes (HCC) [E11.9] 04/01/2021 Deep vein thrombosis (DVT) of lower extremity (*04/02/2021 Dysphagia [R13.10] 04/02/2021 Cardiomyopathy (HCC) [I42.9] 04/03/2021 Language impairment [F80.9] 05/10/2023 Encounter Status:Closed by CATHLEEN GOEL on 05/11/23 [facility] CNTHERAPYon 05-04-2023 CNTHERAPY OT/PT/Speech Visit (OTNOCA) GUSTAVO PATTON ([id number]) 1950 M Date Time Provider Department 05/04/23 1:30 PM CATHLEEN GOEL Date Time Provider Department Center 05/04/2023 1:30 PM [id number], JULIE [facility] Reason for Visit: OT EVAL [748] Primary Visit Diagnosis:Language impairment [F80.9] Other Visit Diagnosis:Cerebrovascu lar accident (CVA), unspecified mechanism (HCC) [I63.9] Allergies [...] WEEKS, THEN TAKE [address] [facility] Basophil percentageOrdered B y: Madhavi Chaudhry on 01-05-2023 Basophil percentage < 1.0 mg/dL 0.70-1.30 [facility] No Panel InformationOrdered By: Madhavi Chaudhry on 01-05-2023 Bedside Estimated GFR (eGFR) > 60.0000 mL/min >60 [facility] Basophil percentageOrdered B y: Ayla Turner on 12-14-2022 WBC (Bld) [#/Vol] 5.7 10*3/uL 4.4-11.0 [facility] Blood erythrocytes count (nu mber/volume)Ordered By: Ayla Turner on 12-14-2022 RBC (Bld) [#/Vol] 4.31 10*6/uL 4.6-6.2 [facility] Blood hemoglobin measurement (mass/volume)Ordered By: Ayla Turner on 12-14-2022 Hemoglobin (Bld) [Mass/Vol] 12.9 g/dL 13.0-16.5 [facility] Blood platelet mean volumeOr dered By: Ayla Statprashant on 12-14-2022 Platelet mean volume (Bld) [Entitic vol] 12.2 fL 6.2-12.0 [facility] Determination of erythrocyte mean corpuscular volume (MCV)Ordered By: Ayla Turner on 12-14-2022 MCV (RBC) [Entitic vol] 97.0 fL 80-94 [facility] Hematocrit Auto (Bld) [Volum e fraction]Ordered By: Ayla Turner on 12-14-2022 Hematocrit (Bld) [Volume fraction] 41.8 % 40-54 [facility] Laboratory - Hematology and Cell countsOrdered By: yAla Turner on 12-14-2022 Erythrocyte distribution width (RBC) [Entitic vol] 44.0 fL 35.1-43.9 [facility] Erythrocyte distribution width (RBC) [Ratio] 12.2 % 11.6-14.6 [facility] MCH (RBC) [Entitic mass] 29.9 pg 27.0-32.0 [facility] MCHC Auto (RBC) [Mass/Vol]Or dered By: Ayla Turner on 12-14-2022 MCHC (RBC) [Mass/Vol] 30.9 g/dL 32-36 [facility] Platelets bldOrdered By: Narayan Turner on 12-14-2022 Platelets (Bld) [#/Vol] 273 10*3/uL 150-450 [facility] Blood hemoglobin measurement (mass/volume)Ordered By: Connie He on 12-01-2022 Hemoglobin (Bld) [Mass/Vol] 11.4 g/dL 13.0-16.5 [facility] Glucose Glucometer (dC) [M ass/Vol]Ordered By: Connie He on 12-01-2022 Glucose [Mass/Vol] 108 mg/dL 74-106 [facility] Comment on above: MANAGEMENT OF PATIEN T CARE PER NURSING PROTOCOL Hematocrit Auto (Bld) [Volum e fraction]Ordered By: Connie He on 12-01-2022 Hematocrit (Bld) [Volume fraction] 35.9 % 40 [facility] Lower GI hemoglobin IA Ql (S tl)Ordered By: Connie He on 2022 Stool Occult Blood (DEJAH) Positive [facility] Basophil percentageOrdered B y: Jerod Cavazos on 11-23-2022 Chloride [Moles/Vol] 104 mmol/L 98-107 [facility] Glucose [Mass/Vol] 100 mg/dL 74-106 [facility] Comment on above: Fasting Glucose resu lt from 100 to 125 mg/dL suggests IMPAIRED HOMEOSTASIS per A.D.A. criteria. Potassium [Moles/Vol] 3.8 mmol/L 3.5-5.1 [facility] Sodium [Moles/Vol] 137 mmol/L 136-145 [facility] WBC (Bld) [#/Vol] 7.2 10*3/uL 4.4-11.0 [facility] Cholesterol [Mass/Vol] 97 mg/dL <200 [facility] Comment on above: <200 mg/dL Desirable 200-240 mg/dL Borderline >240 mg/dL High Risk Triglyceride [Mass/Vol] 77 mg/dL <199 [facility] Comment on above: The drugs N-Acetylcy steine and Metamizole may falsely depress this assay.Serum Triglycerides Reference Interval Normal <150 mg/dL Borderline high 150 - 199 mg/dL High 200 - 499 mg/dL Very High > or = 500 mg/dL Blood erythrocytes count (nu mber/volume)Ordered By: Jerod Cavazos on 11-23-2022 RBC (Bld) [#/Vol] 4.05 10*6/uL 4.6-6.2 [facility] Blood hemoglobin measurement (mass/volume)Ordered By: Jerod Cavazos on 11-23-2022 Hemoglobin (Bld) [Mass/Vol] 12.5 g/dL 13.0-16.5 [facility] Blood platelet mean volumeOr dered By: Jerod Cavazos on 11-23-2022 Platelet mean volume (Bld) [Entitic vol] 10.5 fL 6.2-12.0 [facility] Determination of erythrocyte mean corpuscular volume (MCV)Ordered By: Jerod Cavazos on 11-23-2022 MCV (RBC) [Entitic vol] 93.3 fL 80-94 [facility] Hematocrit Auto (Bld) [Volum e fraction]Ordered By: Jerod Cavazos on 11-23-2022 Hematocrit (Bld) [Volume fraction] 37.8 % 40-54 [facility] Laboratory - Chemistry and C hemistry - challengeOrdered By: Jerod Cavazos on 11-23-2022 CO2 [Moles/Vol] 27.0 mmol/L 21.0-32.0 [facility] Urea nitrogen/Creatinine [Mass ratio] 20.4 mg/mg 10-20 [facility] Laboratory - Hematology and Cell countsOrdered By: Jerod Cavazos on 11-23-2022 Erythrocyte distribution width (RBC) [Entitic vol] 43.4 fL 35.1-43.9 [facility] Erythrocyte distribution width (RBC) [Ratio] 12.6 % 11.6-14.6 [facility] MCH (RBC) [Entitic mass] 30.9 pg 27.0-32.0 [facility] MCHC Auto (RBC) [Mass/Vol]Or dered By: Jerod Cavazos on 11-23-2022 MCHC (RBC) [Mass/Vol] 33.1 g/dL 32-36 [facility] No Panel InformationOrdered By: Jerod Cavazos on 11-23-2022 Estimated Creatinine Clearance Calc 64.83 ml/min [facility] Estimated GFR (MDRD) Amer 87 mL/min >60 [facility] Comment on above: GFR Calc Estimated GFR (MDRD) Non-Af Amer 72 mL/min >60 [facility] Comment on above: Non- GFR Calc Platelets bldOrdered By: Alem Cavazos on 11-23-2022 Platelets (Bld) [#/Vol] 280 10*3/uL 150-450 [facility] Serum or plasma calcium makenzie urement (mass/volume)Ordered By: Jerod Cavazos on 11-23-2022 Calcium [Mass/Vol] 8.9 mg/dL 8.5-10.1 [facility] Serum or plasma cholesterol in HDL measurement (mass/volume)Ordered By: Jerod Cavazos on 11-23-2022 Cholesterol in HDL [Mass/Vol] 51 mg/dL >40 [facility] Comment on above: The drugs N-Acetylcy steine and Metamizole may falsely depress this assay. Reference Range HDL <40 mg/dL Low HDL Cholesterol HDL >or= 60 mg/dL High HDL Cholesterol Serum or plasma cholesterol in VLDL measurement (mass/volume)Ordered By: Jerod Cavazos on 11-23-2022 Cholesterol in VLDL [Mass/Vol] 15 mg/dL 5-40 [facility] Serum or plasma creatinine m easurement (mass/volume)Ordered By: Jerod Cavazos on 11-23-2022 Creatinine [Mass/Vol] 1.08 mg/dL 0.70-1.30 [facility] Comment on above: The validity of the calculated GFR & GFRAA in patients over 70 years has not been determined. Clinical correlation is essential. Serum or plasma low density lipoprotein (LDL) cholesterol measurement (mass/volume)Ordered By: Jerod Cavazos on 11-23-2022 Cholesterol in LDL [Mass/Vol] 31 mg/dL 0-130 [facility] Serum or plasma urea nitroge n measurement (mass/volume)Ordered By: Jerod Cavazos on 11-23-2022 Urea nitrogen [Mass/Vol] 22 mg/dL 7-18 [facility] Thin prep Papanicolaou smear with manual screeningOrdered By: Jerod Cavazos on 11-23-2022 Thin prep Papanicolaou smear with manual screening 6 5-15 [facility] Absolute lymphocyte countOrd ered By: Cristhian Carlos on 11-22-2022 Lymphocytes Auto (Unsp spec) [#/Vol] 1.82 10*3/uL 0.83-4.51 [facility] Basophil percentageOrdered B y: Cristhian Carlos on 11-22-2022 Basophils/100 WBC (Bld) 0.6 % 0-1 [facility] Chloride [Moles/Vol] 105 mmol/L 98-107 [facility] Eosinophils/100 WBC (Bld) 1.1 % 0-5 [facility] Glucose [Mass/Vol] 149 mg/dL 74-106 [facility] Comment on above: Fasting Glucose resu lt greater than or equal to 126 mg/dL suggests DIABETES MELLITUS per A.D.A. criteria. Neutrophils (Bld) [#/Vol] 6.9 10*3/uL 2.0-7.7 [facility] Neutrophils/100 WBC (Bld) 70.3 % 47-70 [facility] Potassium [Moles/Vol] 3.9 mmol/L 3.5-5.1 [facility] Sodium [Moles/Vol] 139 mmol/L 136-145 [facility] WBC (Bld) [#/Vol] 9.9 10*3/uL 4.4-11.0 [facility] Blood erythrocytes count (nu mber/volume)Ordered By: Cristhian Carlos on 11-22-2022 RBC (Bld) [#/Vol] 4.00 10*6/uL 4.6-6.2 [facility] Blood hemoglobin measurement (mass/volume)Ordered By: Cristhian Carlos on 11-22-2022 Hemoglobin (Bld) [Mass/Vol] 12.1 g/dL 13.0-16.5 [facility] Blood lymphocytes/100 leukoc ytesOrdered By: Cristhian Carlos on 11-22-2022 Lymphocytes/100 WBC (Bld) 18.5 % 19-41 [facility] Blood monocytes/100 leukocyt esOrdered By: Cristhian Carlos on 11-22-2022 Monocytes/100 WBC (Bld) 9.3 % 0-10 [facility] Blood platelet mean volumeOr dered By: Cristhian Carlos on 11-22-2022 Platelet mean volume (Bld) [Entitic vol] 10.5 fL 6.2-12.0 [facility] Determination of erythrocyte mean corpuscular volume (MCV)Ordered By: Cristhian Carlos on 11-22-2022 MCV (RBC) [Entitic vol] 95.3 fL 80-94 [facility] Hematocrit Auto (Bld) [Volum e fraction]Ordered By: Cristhian Carlos on 11-22-2022 Hematocrit (Bld) [Volume fraction] 38.1 % 40-54 [facility] INR in Blood by Coagulation assayOrdered By: Cristhian Carlos on 11-22-2022 INR Coag (Bld) [Relative time] 1.1 {INR} [facility] Laboratory - Chemistry and C hemistry - challengeOrdered By: Cristhian Carlos on 11-22-2022 CO2 [Moles/Vol] 26.0 mmol/L 21.0-32.0 [facility] Urea nitrogen/Creatinine [Mass ratio] 21.5 mg/mg 10- [facility] Laboratory - CoagulationOrde red By: Cristhian Carlos on 11-22-2022 aPTT Coag (Bld) [Time] 25.5 s 24.1-36.2 [facility] PT Coag (PPP) [Time] 13.7 s 11.7-14.9 [facility] Laboratory - Hematology and Cell countsOrdered By: Cristhian Carlos on 11-22-2022 Erythrocyte distribution width (RBC) [Entitic vol] 44.0 fL 35.1-43.9 [facility] Erythrocyte distribution width (RBC) [Ratio] 12.6 % 11.6-14.6 [facility] Immature granulocytes/100 WBC (Bld) 0.200 % 0.0-0.9 [facility] Comment on above: IG% - Immature Granu locytes (promyelocytes, myelocytes and metamyelocytes) > 1% indicates that a LEFT SHIFT is Present. MCH (RBC) [Entitic mass] 30.3 pg 27.0-32.0 [facility] Nucleated RBC/100 WBC (Bld) [Ratio] 0 % 0-5 [facility] MCHC Auto (RBC) [Mass/Vol]Or dered By: Cristhian Carlos on 11-22-2022 MCHC (RBC) [Mass/Vol] 31.8 g/dL 32-36 [facility] No Panel InformationOrdered By: Cristhian Carlos on 11-22-2022 Estimated Creatinine Clearance Calc 53.32 ml/min [facility] Estimated GFR (MDRD) Amer 67 mL/min >60 [facility] Comment on above: GFR Calc Estimated GFR (MDRD) Non-Af Amer 56 mL/min >60 [facility] Comment on above: Non- GFR Calc Troponin I High Sensitivity 23 pg/mL 3.0-78.0 [facility] Comment on above: Please Note: New Debbie t Units and Gender Specific Reference Ranges. For more information see Policy Stat Procedure [place] High Sensitivity Troponin (TNIH) and attachments. Platelets bldOrdered By: Winston Carlos on 11-22-2022 Platelets (Bld) [#/Vol] 298 10*3/uL 150-450 [facility] Serum or plasma calcium makenzie urement (mass/volume)Ordered By: Cristhian Carlos on 11-22-2022 Calcium [Mass/Vol] 9.3 mg/dL 8.5-10.1 [facility] Serum or plasma creatinine m easurement (mass/volume)Ordered By: Cristhian Carlos on 11-22-2022 Creatinine [Mass/Vol] 1.35 mg/dL 0.70-1.30 [facility] Comment on above: The validity of the calculated GFR & GFRAA in patients over 70 years has not been determined. Clinical correlation is essential. Serum or plasma urea nitroge n measurement (mass/volume)Ordered By: Cristhian Carlos on 11-22-2022 Urea nitrogen [Mass/Vol] 29 mg/dL 7-18 [facility] Thin prep Papanicolaou smear with manual screeningOrdered By: Cristhian Carlos on 11-22-2022 Thin prep Papanicolaou smear with manual screening [facility] Letter Text Letter Text Normal [facility] CNCOon 07-19-2022 CNCO Letter Text Letter Text Normal [facility] CNPNon 05-20-2022 CNPN Telephone (AGCARD) GUSTAVO PATTON ([id number]) 1950 M Date Time Provider Department 05/20/22 BLAYNE MARIN During your visit today, we recorded [...] Known Allergies) Date Reviewed: 01/13/2022 Reviewed by: Clarence Colin MD - Fully Assessed Reason for [...] Encounter Status:Closed by CELINA MARSHALL on 05/20/22 [facility] Absolute lymphocyte countOrd ered By: Ayla Turner on 04-25-2022 Lymphocytes Auto (Unsp spec) [#/Vol] 1.79 10*3/uL 0.83-4.51 [facility] Basophil percentageOrdered B y: Ayla Turner on 04-25-2022 Basophils/100 WBC (Bld) 1.3 % 0-1 [facility] Bilirubin [Mass/Vol] 0.60 mg/dL 0.20-1.00 [facility] Comment on above: For patients on eltr ombopag therapy, use of Dimension [place] TBIL is not recommended. Chloride [Moles/Vol] 104 mmol/L 98-107 [facility] Cholesterol [Mass/Vol] 121 mg/dL <200 [facility] Comment on above: <200 mg/dL Desirable 200-240 mg/dL Borderline >240 mg/dL High Risk Eosinophils/100 WBC (Bld) 3.2 % 0-5 [facility] Glucose [Mass/Vol] 125 mg/dL 74-106 [facility] Comment on above: Fasting Glucose resu lt from 100 to 125 mg/dL suggests IMPAIRED HOMEOSTASIS per A.D.A. criteria. Neutrophils (Bld) [#/Vol] 5.7 10*3/uL 2.0-7.7 [facility] Neutrophils/100 WBC (Bld) 66.2 % 47-70 [facility] Potassium [Moles/Vol] 3.8 mmol/L 3.5-5.1 [facility] Protein [Mass/Vol] 7.9 g/dL 6.4-8.2 [facility] Sodium [Moles/Vol] 139 mmol/L 136-145 [facility] Triglyceride [Mass/Vol] 92 mg/dL <199 [facility] Comment on above: The drugs N-Acetylcy steine and Metamizole may falsely depress this assay.Serum Triglycerides Reference Interval Normal <150 mg/dL Borderline high 150 - 199 mg/dL High 200 - 499 mg/dL Very High > or = 500 mg/dL WBC (Bld) [#/Vol] 8.7 10*3/uL 4.4-11.0 [facility] Blood erythrocytes count (nu mber/volume)Ordered By: Ayla Turner on 04-25-2022 RBC (Bld) [#/Vol] 4.20 10*6/uL 4.6-6.2 [facility] Blood hemoglobin measurement (mass/volume)Ordered By: Ayla Statyamileoulos on 04-25-2022 Hemoglobin (Bld) [Mass/Vol] 13.1 g/dL 13.0-16.5 [facility] Blood lymphocytes/100 leukoc ytesOrdered By: Ayla Stathopoulos on 04-25-2022 Lymphocytes/100 WBC (Bld) 20.6 % 19-41 [facility] Blood monocytes/100 leukocyt esOrdered By: Ayla Stathopoulos on 04-25-2022 Monocytes/100 WBC (Bld) 8.6 % 0-10 [facility] Blood platelet mean volumeOr dered By: Ayla Stathopoulos on 04-25-2022 Platelet mean volume (Bld) [Entitic vol] 10.9 fL 6.2-12.0 [facility] Determination of erythrocyte mean corpuscular volume (MCV)Ordered By: Ayla Stathopoulos on 04-25-2022 MCV (RBC) [Entitic vol] 96.9 fL 80-94 [facility] Hematocrit Auto (Bld) [Volum e fraction]Ordered By: Ayla Turner on 04-25-2022 Hematocrit (Bld) [Volume fraction] 40.7 % 40-54 [facility] Laboratory - Chemistry and C hemistry - challengeOrdered By: Ayla Turner on 04-25-2022 ALP [Catalytic activity/Vol] 93 U/L 45-117 [facility] ALT [Catalytic activity/Vol] 116 U/L 16-61 [facility] CO2 [Moles/Vol] 29.0 mmol/L 21.0-32.0 [facility] Globulin (S) [Mass/Vol] 3.9 g/dL 2.2-4.2 [facility] Urea nitrogen/Creatinine [Mass ratio] 19.1 mg/mg 10-20 [facility] Laboratory - Hematology and Cell countsOrdered By: Ayla Turner on 04-25-2022 Erythrocyte distribution width (RBC) [Entitic vol] 44.7 fL 35.1-43.9 [facility] Erythrocyte distribution width (RBC) [Ratio] 12.6 % 11.6-14.6 [facility] Immature granulocytes/100 WBC (Bld) 0.100 % 0.0-0.9 [facility] Comment on above: IG% - Immature Granu locytes (promyelocytes, myelocytes and metamyelocytes) > 1% indicates that a LEFT SHIFT is Present. MCH (RBC) [Entitic mass] 31.2 pg 27.0-32.0 [facility] Nucleated RBC/100 WBC (Bld) [Ratio] 0 % 0-5 [facility] MCHC Auto (RBC) [Mass/Vol]Or dered By: Ayla Turner on 04-25-2022 MCHC (RBC) [Mass/Vol] 32.2 g/dL 32-36 [facility] No Panel InformationOrdered By: Ayla Turner on 04-25-2022 Estimated GFR (MDRD) Amer 85 mL/min >60 [facility] Comment on above: GFR Calc Estimated GFR (MDRD) Non-Af Amer 71 mL/min >60 [facility] Comment on above: Non- GFR Calc Prostate Specific Antigen Screen 1.30 ng/mL 0.00-4.00 [facility] Comment on above: This test was perfor med using the TPSA assay method [facility]. Values obtained with differentassay methods cannot be used interchangably.When changing PSA assays in the course of monitoring apatient, additional sequential testing should be carriedout to confirm baseline values. Platelets bldOrdered By: Narayan tlkatelynn Statprashant on 04-25-2022 Platelets (Bld) [#/Vol] 392 10*3/uL 150-450 [facility] Serum or plasma albumin makenzie urement (mass/volume)Ordered By: Ayla Statyamileoullesly on 04-25-2022 Albumin [Mass/Vol] 4.0 g/dL 3.2-5.0 [facility] Serum or plasma albumin/glob ulin mass ratioOrdered By: Ayla Statprashant on 04-25-2022 Albumin/Globulin [Mass ratio] 1.0 {ratio} 0.9-2.4 [facility] Serum or plasma calcium makenzie urement (mass/volume)Ordered By: Ayla Stathopoulos on 04-25-2022 Calcium [Mass/Vol] 9.5 mg/dL 8.5-10.1 [facility] Serum or plasma cholesterol in HDL measurement (mass/volume)Ordered By: Ayla Statyamileoulos on 04-25-2022 Cholesterol in HDL [Mass/Vol] 60 mg/dL >40 [facility] Comment on above: The drugs N-Acetylcy steine and Metamizole may falsely depress this assay. Reference Range HDL <40 mg/dL Low HDL Cholesterol HDL >or= 60 mg/dL High HDL Cholesterol Serum or plasma cholesterol in VLDL measurement (mass/volume)Ordered By: Ayla Statyamileoullesly on 04-25-2022 Cholesterol in VLDL [Mass/Vol] 18 mg/dL 5-40 [facility] Serum or plasma creatinine m easurement (mass/volume)Ordered By: Ayla Statyamileoullesly on 04-25-2022 Creatinine [Mass/Vol] 1.10 mg/dL 0.70-1.30 [facility] Comment on above: The validity of the calculated GFR & GFRAA in patients over 70 years has not been determined. Clinical correlation is essential. Serum or plasma low density lipoprotein (LDL) cholesterol measurement (mass/volume)Ordered By: Ayla Turner on 04-25-2022 Cholesterol in LDL [Mass/Vol] 43 mg/dL 0-130 [facility] Serum or plasma urea nitroge n measurement (mass/volume)Ordered By: Ayla Turner on 04-25-2022 Urea nitrogen [Mass/Vol] 21 mg/dL 7-18 [facility] Thin prep Papanicolaou smear with manual screeningOrdered By: Aylajose eduardo Turner on 04-25-2022 Thin prep Papanicolaou smear with manual screening 56 U/L 15-37 [facility] Thin prep Papanicolaou smear with manual screening 6 5-15 [facility] Whole blood hemoglobin A1c/t otal hemoglobin ratio (mass fraction)Ordered By: Ayla Turner on 04-25-2022 HbA1c (Bld) [Mass fraction] 6.0 % 3.8-5.6 [facility] Comment on above: Normal < 5.7 % Predi abetic 5.7 - 6.4 % Diabetic >or= 6.5 % Please note range changes. [place] 01-14-2022 BRIANDA Telephone (ZULY) GUSTAVO PATTON ([id number]) 1950 M Date Time Provider Department 01/14/22 LAYNE MANLEY JR During your visit today, we recorded the following information about you: Benita Johansen LPN 01/14/2022 11:12 AM Signed Zhanna with [facility] called and requested order for PT for pt be faxed to them FAX: [phone]. Identified pt with name and date of . Done. Benita Johansen LPN Allergies As of Date: 01/14/2022 (No Known Allergies) Date Reviewed: 01/13/2022 Reviewed by: Clarence Colin MD - Fully Assessed Reason for [...] Cardiomyopathy (HCC) [I42.9] 04/03/2021 Encounter Status:Closed by BENITA JOHANSEN LPN on 01/14/22 [facility] CNOValberto 01-13-2022 OV Office Visit (AGMIL) GUSTAVO PATTON ([id number]) 1950 M Date Time Provider Department 01/13/22 10:30 AM CLARENCE COLIN During your visit today, we recorded the following information about you: Pulse Respiration Blood pressure Weight 92/minute 16/minute 118/64 63.8 kg Height 1.778 m Clarence Colin MD 01/13/2022 10:55 AM Signed Gustavo Patton is a 71 year old male presents for evaluation of DVT. [facility], which we discussed that I am not, but he would have to go to [place] or another [facility] for vascular medicine. When talking to him, [...] elevation for symptom control. Follow up prn Clarence Colin MD I spent 30 minutes in the visit, with more than 50% of the total [id number] time of the visit in counseling / coordination of care. Referring Provider: LAYNE MANLEY JR [[id number]] Allergies As of Date: 01/13/2022 (No Known Allergies) Date Reviewed: 01/13/2022 Reviewed by: Clarence Colin MD - Fully Assessed Reason for Visit: Venous Thrombus [Other] Cmt: Gustavo is here for DVT Rfd by Dr. Tidwell Visit Diagnosis:Deep vein thrombosis (DVT) of femoral vein, unspecified chronicity, unspecified laterality (HCC) [I82.419] Order(s):CONSULT TO VASCULAR MEDICINE [[id number]] Order #: [id number]: 1 Prescriptions as of 01/13/2022 - metoprolol [...] route on (more content not included)... Normal [facility] US LEG VEIN DVT KRUNAL VAS LABo n 12-29-2021 [facility] ECHO WITH AGITATED SALINE CO NTRASTon 12-27-2021 [facility] LVEF ECHO WITH AGITATED SALI NE CONTRASTon 12-27-2021 LV Ejection Fraction 64 % [facility] CT BRAIN WO IVCONon 12-25-19 [facility] Basophil percentageon 2021 Chloride [Moles/Vol] 100 mmol/L 98-107 [facility] Work Phone: Cholesterol [Mass/Vol] 91 mg/dL <200 [facility] Work Phone: Comment on above: <200 mg/dL Desirable 200-240 mg/dL Borderline >240 mg/dL High Risk Glucose [Mass/Vol] 99 mg/dL 74-106 [facility] Work Phone: Potassium [Moles/Vol] 4.3 mmol/L 3.5-5.1 [facility]: Sodium [Moles/Vol] 138 mmol/L 136-145 [facility] Work Phone: Triglyceride [Mass/Vol] 50 mg/dL <199 [facility] Work Phone: Comment on above: The drugs N-Acetylcy steine and Metamizole may falsely depress this assay.Serum Triglycerides Reference Interval Normal <150 mg/dL Borderline high 150 - 199 mg/dL High 200 - 499 mg/dL Very High > or = 500 mg/dL Laboratory - Chemistry and C hemistry - challengeon 11-05-2021 CO2 [Moles/Vol] 29.0 mmol/L 21.0-32.0 [facility] Work Phone: Urea nitrogen/Creatinine [Mass ratio] 27.2 mg/mg 10-20 [facility] Work Phone: No Panel Informationon 11-05 Estimated GFR (MDRD) Amer 105 mL/min >60 [facility] Work Phone: Comment on above: GFR Calc Estimated GFR (MDRD) Non-Af Amer 87 mL/min >60 [facility] Work Phone: Comment on above: Non- GFR Calc Urine Microalbumin/Creatinine Ratio 17.8 mg/g CRE <30 [facility] Work Phone: Serum or plasma calcium makenzie urement (mass/volume)on 11-05-2021 Calcium [Mass/Vol] 9.2 mg/dL 8.5-10.1 [facility] Work Phone: Serum or plasma cholesterol in HDL measurement (mass/volume)on 11-05-2021 Cholesterol in HDL [Mass/Vol] 53 mg/dL >40 [facility] Work Phone: Comment on above: The drugs N-Acetylcy steine and Metamizole may falsely depress this assay. Reference Range HDL <40 mg/dL Low HDL Cholesterol HDL >or= 60 mg/dL High HDL Cholesterol Serum or plasma cholesterol in VLDL measurement (mass/volume)on 11-05-2021 Cholesterol in VLDL [Mass/Vol] 10 mg/dL 5-40 [facility] Work Phone: Serum or plasma creatinine m easurement (mass/volume)on 11-05-2021 Creatinine [Mass/Vol] 0.92 mg/dL 0.70-1.30 [facility] Work Phone: Comment on above: The validity of the calculated GFR & GFRAA in patients over 70 years has not been determined. Clinical correlation is essential. Serum or plasma low density lipoprotein (LDL) cholesterol measurement (mass/volume)on 11-05-2021 Cholesterol in LDL [Mass/Vol] 28 mg/dL 0-130 [facility] Work Phone: Serum or plasma urea nitroge n measurement (mass/volume)on 11-05-2021 Urea nitrogen [Mass/Vol] 25 mg/dL 7-18 [facility] Work Phone: Thin prep Papanicolaou smear with manual screeningon 11-05-2021 Thin prep Papanicolaou smear with manual screening 9 5-15 [facility] Work Phone: Thin prep Papanicolaou smear with manual screening 22.9 mg/L NO RANGE EST. [facility] Work Phone: Urine creatinine measurement (mass/volume)on 11-05-2021 Creatinine (U) [Mass/Vol] 129.00 mg/dL NO RANGE EST. [facility] Work Phone: Whole blood hemoglobin A1c/t otal hemoglobin ratio (mass fraction)on 11-05-2021 HbA1c (Bld) [Mass fraction] 6.1 % 3.8-5.6 [facility] Work Phone: Comment on above: Normal < 5.7 % Predi abetic 5.7 - 6.4 % Diabetic >or= 6.5 % Please note range changes. Absolute lymphocyte counton 10-13-2021 Lymphocytes Auto (Unsp spec) [#/Vol] 2.13 10*3/uL 0.83-4.51 [facility] Work Phone: Basophil percentageon 2021 Basophil percentage 25-50 SEEN /hpf 0-5 [facility] Work Phone: Basophils/100 WBC (Bld) 1.0 % 0-1 [facility] Work Phone: [phone] Chloride [Moles/Vol] 103 mmol/L 98-107 [facility] Work Phone: Eosinophils/100 WBC (Bld) 2.3 % 0-5 [facility] Work Phone: [phone] Glucose [Mass/Vol] 132 mg/dL 74-106 [facility] Work Phone: Comment on above: Fasting Glucose resu lt greater than or equal to 126 mg/dL suggests DIABETES MELLITUS per A.D.A. criteria. Neutrophils (Bld) [#/Vol] 8.0 10*3/uL 2.0-7.7 [facility] Work Phone: Neutrophils/100 WBC (Bld) 70.5 % 47-70 [facility] Work Phone: Potassium [Moles/Vol] 3.7 mmol/L 3.5-5.1 [facility] Work Phone: Sodium [Moles/Vol] 142 mmol/L 136-145 [facility] Work Phone: WBC (Bld) [#/Vol] 11.4 10*3/uL 4.4-11.0 [facility] Work Phone: Bilirubin Test strip Ql (U)o n 10-13-2021 Bilirubin Ql (U) Negative Negative [facility] Work Phone: Blood erythrocytes count (nu mber/volume)on 10-13-2021 RBC (Bld) [#/Vol] 4.73 10*6/uL 4.6-6.2 [facility] Work Phone: Blood hemoglobin measurement (mass/volume)on 10-13-2021 Hemoglobin (Bld) [Mass/Vol] 14.5 g/dL 13.0-16.5 [facility] Work Phone: Blood lymphocytes/100 leukoc yteson 10-13-2021 Lymphocytes/100 WBC (Bld) 18.8 % 19-41 [facility] Work Phone: Blood monocytes/100 leukocyt eson 10-13-2021 Monocytes/100 WBC (Bld) 7.1 % 0-10 [facility] Work Phone: Blood platelet mean volumeon 10-13-2021 Platelet mean volume (Bld) [Entitic vol] 11.4 fL 6.2-12.0 [facility] Work Phone: Determination of erythrocyte mean corpuscular volume (MCV)on 10-13-2021 MCV (RBC) [Entitic vol] 93.9 fL 80-94 [facility] Work Phone: Hematocrit Auto (Bld) [Volum e fraction]on 10-13-2021 Hematocrit (Bld) [Volume fraction] 44.4 % 40-54 [facility] Work Phone: INR in Blood by Coagulation assayon 10-13-2021 INR Coag (Bld) [Relative time] 1.0 {INR} [facility] Work Phone: Ketones Test strip Ql (U)on 10-13-2021 Ketones Ql (U) Negative Negative [facility] Work Phone: Laboratory - Chemistry and C hemistry - challengeon 10-13-2021 CO2 [Moles/Vol] 29.0 mmol/L 21.0-32.0 [facility] Work Phone: Urea nitrogen/Creatinine [Mass ratio] 23.8 mg/mg 10-20 [facility] Work Phone: [phone] Laboratory - Coagulationon 0 10-13-2021 PT Coag (PPP) [Time] 12.6 s 11.7-14.9 [facility] Work Phone: [phone] Laboratory - Hematology and Cell countson 10-13-2021 Erythrocyte distribution width (RBC) [Entitic vol] 44.1 fL 35.1-43.9 [facility] Work Phone: [phone] Erythrocyte distribution width (RBC) [Ratio] 12.8 % 11.6-14.6 [facility] Work Phone: Immature granulocytes/100 WBC (Bld) 0.300 % 0.0-0.9 [facility] Work Phone: Comment on above: IG% - Immature Granu locytes (promyelocytes, myelocytes and metamyelocytes) > 1% indicates that a LEFT SHIFT is Present. MCH (RBC) [Entitic mass] 30.7 pg 27.0-32.0 [facility] Work Phone: [phone] Nucleated RBC/100 WBC (Bld) [Ratio] 0 % 0-5 [facility] Work Phone: MCHC Auto (RBC) [Mass/Vol]on 10-13-2021 MCHC (RBC) [Mass/Vol] 32.7 g/dL 32-36 [facility] Work Phone: Mucus LM Ql (Urine sed)on Mucus Ql (Urine sed) 1+ /hpf [facility] Work Phone: Nitrite Test strip Ql (U)on 10-13-2021 Nitrite Ql (U) Negative Negative [facility] Work Phone: No Panel Informationon 10-13 Troponin I High Sensitivity 17 pg/mL 3.0-78.0 [facility] Work Phone: Comment on above: Please Note: New Debbie t Units and Gender Specific Reference Ranges. For more information see Policy Stat Procedure [place] High Sensitivity Troponin (TNIH) and attachments. D-Dimer Quantitative (PE/DVT) 0.44 FEU/ug/m 0.27-0.49 [facility] Work Phone: Comment on above: NORMAL D-Dimer level (<0.50) indicates no DVT or PE. Estimated Creatinine Clearance Calc 63.94 ml/min [facility] Work Phone: Estimated GFR (MDRD) Amer 90 mL/min >60 [facility] Work Phone: Comment on above: GFR Calc Estimated GFR (MDRD) Non-Af Amer 75 mL/min >60 [facility] Work Phone: Comment on above: Non- GFR Calc Thyroid Stimulating Hormone (TSH) 1.52 uIU/mL 0.358-3.74 [facility] Work Phone: Platelets bldon 10-13-2021 Platelets (Bld) [#/Vol] 396 10*3/uL 150-450 [facility] Work Phone: Protein Test strip Ql (U)on 10-13-2021 Protein Ql (U) 15 mg/dl Negative [facility] Work Phone: Serum or plasma calcium makenzie urement (mass/volume)on 09-07-2022 Calcium [Mass/Vol] 10.1 mg/dL 8.5-10.1 [facility] Work Phone: Serum or plasma creatinine m easurement (mass/volume)on 10-13-2021 Creatinine [Mass/Vol] 1.05 mg/dL 0.70-1.30 [facility] Work Phone: Comment on above: The validity of the calculated GFR & GFRAA in patients over 70 years has not been determined. Clinical correlation is essential. Serum or plasma urea nitroge n measurement (mass/volume)on 10-13-2021 Urea nitrogen [Mass/Vol] 25 mg/dL 7-18 [facility] Work Phone: Squamous epithelial cells de tection in urine sediment by light microscopyon 10-13-2021 Epithelial cells.squamous LM Ql (Urine sed) 0-5 SEEN /hpf 0-5 [facility] Work Phone: Thin prep Papanicolaou smear with manual screeningon 10-13-2021 Thin prep Papanicolaou smear with manual screening 10 5-15 [facility] Work Phone: Urine blood detectionon RBC Ql (U) 25 /ul Negative [facility] Work Phone: RBC Ql (U) 0-5 SEEN /hpf 0-5 [facility] Work Phone: Urine clarityon 10-13-2021 Clarity (U) Clear Clear [facility] Work Phone: Urine color determinationon 10-13-2021 Color (U) Yellow Yellow [facility] Work Phone: Urine glucose detectionon Glucose Ql (U) Normal mg/dl Normal [facility] Work Phone: Urine leukocyte esterase det ection by dipstickon 10-13-2021 Leukocyte esterase Test strip Ql (U) 500 /ul Negative [facility] Work Phone: Urine pHon 10-13-2021 pH (U) 6.0 [pH] 5.0 - 8.0 [facility] Work Phone: Urine sediment bacteria coun t by microscopy (number/high power field)on 10-13-2021 Bacteria LM.HPF (Urine sed) [#/Area] 1 /[HPF] None Seen [facility] Work Phone: [phone] Urine specific gravity measu rementon 10-13-2021 Specific gravity (U) [Rel density] 1.015 1.002-1.030 [facility] Work Phone: [phone] Urobilinogen Auto test strip Ql (U)on 10-13-2021 Urobilinogen Ql (U) Normal mg/dl Normal [facility] Work Phone: [phone] Absolute lymphocyte counton 08-04-2021 Lymphocytes Auto (Unsp spec) [#/Vol] 2.35 10*3/uL 0.83-4.51 [facility] Work Phone: Basophil percentageon 2021 Basophil percentage 5-10 SEEN /hpf 0-5 [facility] Work Phone: Basophils/100 WBC (Bld) 0.9 % 0-1 [facility] Work Phone: [phone] Bilirubin [Mass/Vol] 0.40 mg/dL 0.20-1.00 [facility] Work Phone: [phone] Comment on above: For patients on eltr ombopag therapy, use of Dimension [place] TBIL is not recommended. Chloride [Moles/Vol] 105 mmol/L 98-107 [facility] Work Phone: Eosinophils/100 WBC (Bld) 3.6 % 0-5 [facility] Work Phone: Glucose [Mass/Vol] 164 mg/dL 74-106 [facility] Work Phone: [phone] Comment on above: Fasting Glucose resu lt greater than or equal to 126 mg/dL suggests DIABETES MELLITUS per A.D.A. criteria. Neutrophils (Bld) [#/Vol] 5.5 10*3/uL 2.0-7.7 [facility] Work Phone: [phone] Neutrophils/100 WBC (Bld) 60.7 % 47-70 [facility] Work Phone: Potassium [Moles/Vol] 4.1 mmol/L 3.5-5.1 [facility] Work Phone: Protein [Mass/Vol] 7.2 g/dL 6.4-8.2 [facility] Work Phone: Sodium [Moles/Vol] 142 mmol/L 136-145 [facility] Work Phone: WBC (Bld) [#/Vol] 9.0 10*3/uL 4.4-11.0 [facility] Work Phone: [phone] Bilirubin Test strip Ql (U)o n 08-04-2021 Bilirubin Ql (U) Negative Negative [facility] Work Phone: [phone] Blood erythrocytes count (nu mber/volume)on 08-04-2021 RBC (Bld) [#/Vol] 4.24 10*6/uL 4.6-6.2 [facility] Work Phone: [phone] Blood hemoglobin measurement (mass/volume)on 08-04-2021 Hemoglobin (Bld) [Mass/Vol] 13.2 g/dL 13.0-16.5 [facility] Work Phone: Blood lymphocytes/100 leukoc yteson 08-04-2021 Lymphocytes/100 WBC (Bld) 26.1 % 19-41 [facility] Work Phone: Blood monocytes/100 leukocyt eson 08-04-2021 Monocytes/100 WBC (Bld) 8.4 % 0-10 [facility] Work Phone: Blood platelet mean volumeon 08-04-2021 Platelet mean volume (Bld) [Entitic vol] 11.1 fL 6.2-12.0 [facility] Work Phone: [phone] Determination of erythrocyte mean corpuscular volume (MCV)on 08-04-2021 MCV (RBC) [Entitic vol] 94.1 fL 80-94 [facility] Work Phone: Hematocrit Auto (Bld) [Volum e fraction]on 08-04-2021 Hematocrit (Bld) [Volume fraction] 39.9 % 40-54 [facility] Work Phone: Ketones Test strip Ql (U)on 08-04-2021 Ketones Ql (U) Negative Negative [facility] Work Phone: Laboratory - Chemistry and C hemistry - challengeon 08-04-2021 ALP [Catalytic activity/Vol] 67 U/L 45-117 [facility] Work Phone: ALT [Catalytic activity/Vol] 29 U/L 16-61 [facility] Work Phone: CO2 [Moles/Vol] 28.0 mmol/L 21.0-32.0 [facility] Work Phone: Globulin (S) [Mass/Vol] 3.6 g/dL 2.2-4.2 [facility] Work Phone: Urea nitrogen/Creatinine [Mass ratio] 17.5 mg/mg 10-20 [facility] Work Phone: Laboratory - Drug toxicology on 08-04-2021 Amphetamines Ql (U) Negative <1000 ng/mL [facility] Work Phone: Benzodiazepines Ql (U) Negative < 200 ng/mL [facility] Work Phone: Cannabinoids Screen Ql (U) Negative < 50 ng/m L [facility] Work Phone: Cocaine Ql (U) Negative < 300 ng/mL [facility] Work Phone: Opiates Ql (U) Negative < 300 ng/mL [facility] Work Phone: Laboratory - Hematology and Cell countson 08-04-2021 Erythrocyte distribution width (RBC) [Entitic vol] 42.9 fL 35.1-43.9 [facility] Work Phone: Erythrocyte distribution width (RBC) [Ratio] 12.6 % 11.6-14.6 [facility] Work Phone: Immature granulocytes/100 WBC (Bld) 0.300 % 0.0-0.9 [facility] Work Phone: Comment on above: IG% - Immature Granu locytes (promyelocytes, myelocytes and metamyelocytes) > 1% indicates that a LEFT SHIFT is Present. MCH (RBC) [Entitic mass] 31.1 pg 27.0-32.0 [facility] Work Phone: Nucleated RBC/100 WBC (Bld) [Ratio] 0 % 0-5 [facility] Work Phone: MCHC Auto (RBC) [Mass/Vol]on 08-04-2021 MCHC (RBC) [Mass/Vol] 33.1 g/dL 32-36 [facility] Work Phone: Mucus LM Ql (Urine sed)on Mucus Ql (Urine sed) 1+ /hpf [facility] Work Phone: Nitrite Test strip Ql (U)on 08-04-2021 Nitrite Ql (U) Negative Negative [facility] Work Phone: No Panel Informationon 08-04 MDMA (Ecstasy) Screen Negative < 500 ng/mL [facility] Work Phone: Urine Barbiturates Screen Negative < 200 ng/m L [facility] Work Phone: Urine Drug Screen Comment [facility] Work Phone: Comment on above: CONFIRMATORY TESTING [...] Methadone Screen Negative < 300 ng/mL [facility] Work Phone: Estimated Creatinine Clearance Calc 64.04 ml/min [facility] Work Phone: Estimated GFR (MDRD) Amer 82 mL/min >60 [facility] Work Phone: Comment on above: GFR Calc Estimated GFR (MDRD) Non-Af Amer 68 mL/min >60 [facility] Work Phone: Comment on above: Non- GFR Calc Ethyl Alcohol Level < 3.0 mg/dL [facility] Work Phone: Comment on above: The serum:whole bloo d ethanol ratio is approximately 1.14and varies slightly with hematocrit. Medical Alcohol reference interval and critical value innon-tolerant individuals; 50 - 100 Impairment 100 Intoxication 100 - 250 Severe Poisoning 250 - 400 Deep/possible fatal coma Troponin I High Sensitivity 8 pg/mL 3.0-78.0 [facility] Work Phone: Comment on above: Please Note: New Debbie t Units and Gender Specific Reference Ranges. For more information see Policy Stat Procedure [place] High Sensitivity Troponin (TNIH) and attachments. Platelets bldon 08-04-2021 Platelets (Bld) [#/Vol] 352 10*3/uL 150-450 [facility] Work Phone: Protein Test strip Ql (U)on 08-04-2021 Protein Ql (U) 15 mg/dl Negative [facility] Work Phone: [phone] Serum or plasma albumin makenzie urement (mass/volume)on 08-04-2021 Albumin [Mass/Vol] 3.6 g/dL 3.2-5.0 [facility] Work Phone: [phone] Serum or plasma albumin/glob ulin mass ratioon 08-04-2021 Albumin/Globulin [Mass ratio] 1.0 {ratio} 0.9-2.4 [facility] Work Phone: [phone] Serum or plasma calcium makenzie urement (mass/volume)on 08-04-2021 Calcium [Mass/Vol] 9.2 mg/dL 8.5-10.1 [facility] Work Phone: Serum or plasma creatinine m easurement (mass/volume)on 08-04-2021 Creatinine [Mass/Vol] 1.14 mg/dL 0.70-1.30 [facility] Work Phone: Comment on above: The validity of the calculated GFR & GFRAA in patients over 70 years has not been determined. Clinical correlation is essential. Serum or plasma urea nitroge n measurement (mass/volume)on 08-04-2021 Urea nitrogen [Mass/Vol] 20 mg/dL 7-18 [facility] Work Phone: Squamous epithelial cells de tection in urine sediment by light microscopyon 08-04-2021 Epithelial cells.squamous LM Ql (Urine sed) 0-5 SEEN /hpf 0-5 [facility] Work Phone: Thin prep Papanicolaou smear with manual screeningon 08-04-2021 Thin prep Papanicolaou smear with manual screening 24 U/L 15-37 [facility] Work Phone: Thin prep Papanicolaou smear with manual screening 9 5-15 [facility] Work Phone: Urine blood detectionon 07-08 RBC Ql (U) Negative Negative [facility] Work Phone: RBC Ql (U) 0 SEEN /hpf 0-5 [facility] Work Phone: Urine clarityon 08-04-2021 Clarity (U) Clear Clear [facility] Work Phone: Urine color determinationon 08-04-2021 Color (U) Yellow Yellow [facility] Work Phone: Urine glucose detectionon Glucose Ql (U) Normal mg/dl Normal [facility] Work Phone: Urine leukocyte esterase det ection by dipstickon 08-04-2021 Leukocyte esterase Test strip Ql (U) 100 /ul Negative [facility] Work Phone: Urine pHon 08-04-2021 pH (U) 6.5 [pH] 5.0 - 8.0 [facility] Work Phone: Urine phencyclidine (PCP) de tectionon 08-04-2021 Phencyclidine Ql (U) Negative < 25 ng/mL [facility] Work Phone: Urine sediment bacteria coun t by microscopy (number/high power field)on 08-04-2021 Bacteria LM.HPF (Urine sed) [#/Area] RARE /hpf None Seen [facility] Work Phone: Urine specific gravity measu rementon 08-04-2021 Specific gravity (U) [Rel density] 1.015 1.002-1.030 [facility] Work Phone: Urobilinogen Auto test strip Ql (U)on 08-04-2021 Urobilinogen Ql (U) Normal mg/dl Normal [facility] Work Phone: NM CARDIAC PERF STRESS/PHARM on 06-08-2021 [facility] EMERGENCY DEPARTMENT REPORTo n 04-02-2021 EMERGENCY [place] [address] HEALTH INFORMATION MANAGEMENT EMERGENCY DEPARTMENT REPORT Patient: GUSTAVO PATTON,CHAYO Aiken D.O. [id number] M Status: DEP ER ED [...] for right-sided weakness. 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 Last [...] as well as neural ICU doc at [facility], Dr. Pittman. At this point, it was decided to arrange critical care air transportation for the patient to [facility] for possible thrombectomy. IV fluids were ordered on the patient. EKG shows sinus rhythm. No signs of STEMI. CBC was unremarkable. Chemistry panel did show glucose of 259. At this point, the patient was transferred to [facility] for further evaluation, management, and treatment of his symptoms. IMPRESSION: Stroke with left M1 and M2 large vessel occlusion. DISPOSITION: The patient transferred to [facility]. 40 minutes of critical care time. Report#: Dict ID [id number] / Int ID [id number] 04/04/21 1047 CHAYO ARAYA D.O. cc: CHAYO ARAYA D.O. << Signature on File>> Reported By: CHAYO ARAYA D.O. Signed By: CHAYO ARAYA D.O. Tests performed at: [address] [address] [facility] Anion gap [Moles/Vol] 18.5 mmol/L Normal 15-22 [facility] Comment on above: Performed By: #### L 100.0010, L301.0120 #### [facility] - LABORATORY [address] [place] [address] 88501 Calcium [Mass/Vol] 9.1 mg/dL Normal 8.8-10.2 [facility] Comment on above: Performed By: #### L 100.0010, L301.0120 #### [facility] [address] [place] [address] 40430 Chloride [Moles/Vol] 101 mmol/L Normal 98-107 [facility] Comment on above: Performed By: #### L 100.0010, L301.0120 #### [facility] - [facility] [address] [place] [address] 94448 CO2 [Moles/Vol] 24 mmol/L Normal 22-29 [facility] Comment on above: Performed By: #### L 100.0010, L301.0120 #### [facility] [address] [place] [address] 19645 Creatinine [Mass/Vol] 1.14 mg/dL Normal 0.70-1.20 [facility] Comment on above: Performed By: #### L 100.0010, L301.0120 #### [facility] - [facility]ATORY [address] [place] [address] 56373 eGFR if AFR KATEY > 60 ml/min/1.73m2 Normal [facility] Comment on above: Result Comment: eGFR >= 60 Indicates normal kidney function. * eGFR IS AN ESTIMATE * (AFR KATEY = ) (non-AFR AM = NON-) _ MDRD calculation used in the eGFR should not be used to dose medications. For further limitations of the eGFR please refer to the Physician Website or the National Kidney Disease Education Program website (www.nkdep.nih.gov). Performed By: #### L 100.0010, L301.0120 #### - LABORATORY [address] [place] [address] 24624 eGFR nonAFR Katey > 60 ml/Min/1.73m2 Normal [facility] Comment on above: Performed By: #### L 100.0010, L301.0120 #### [facility] - [facility]ORY [address] [place] [address] 67166 Glucose [Mass/Vol] 259 mg/dL High 82-115 [facility] Comment on above: Performed By: #### L 100.0010, L301.0120 #### [facility] - [facility]ATORY [address] [place] [address] 61731 Potassium [Moles/Vol] 4.5 mmol/L Normal 3.5-5.0 [facility] Comment on above: Performed By: #### L 100.0010, L301.0120 #### [facility] [address] [place] [address] 86154 Sodium [Moles/Vol] 139 mmol/L Normal 135-145 [facility] Comment on above: Performed By: #### L 100.0010, L301.0120 #### [facility] [address] [place] [address] 25308 Urea nitrogen [Mass/Vol] 18 mg/dL Normal 8-23 [facility] Comment on above: Performed By: #### L 100.0010, L301.0120 #### [facility] [address] [place] [address] 20234 CBCon 04-01-2021 BASO# 0.10 x10(3) Normal 0.00-0.10 [facility] Comment on above: Performed By: #### L 200.0010 #### [facility] - [facility]ORY [address] [place] [address] 51878 Basophils/100 WBC (Bld) 0.9 % Normal 0.0-1.0 [facility] Comment on above: Performed By: #### L 200.0010 #### [facility] - [facility] [address] [place] [address] 31102 EOS# 0.20 x10(3) Normal 0.00-0.54 [facility] Comment on above: Performed By: #### L 200.0010 #### [facility] - [facility]ORY [address] [place] [address] 72615 Eosinophils/100 WBC (Bld) 2.4 % Normal 0.5-4.9 [facility] Comment on above: Performed By: #### L 200.0010 #### [facility] - [facility] [address] [place] [address] 74796 Erythrocyte distribution width (RBC) [Ratio] 13.4 % Normal 12.7-15.3 [facility] Comment on above: Performed By: #### L 200.0010 #### [facility] - [facility] [address] [place] [address] 43028 Hematocrit (Bld) [Volume fraction] 40.7 % Low 42.0-51.0 [facility] Comment on above: Performed By: #### L 200.0010 #### [facility] - [facility]ATORY [address] [place] [address] 84894 Hemoglobin (Bld) [Mass/Vol] 13.4 g/dL Low 14.0-17.2 [facility] Comment on above: Performed By: #### L 200.0010 #### [facility] - [facility]ATORY [address] [place] [address] 83063 LYMPH# 2.10 x10(3) Normal 1.00-3.50 [facility] Comment on above: Performed By: #### L 200.0010 #### [facility] [address] [place] [address] 33497 Lymphocytes/100 WBC (Bld) 21.8 % Normal 16.0-48.0 [facility] Comment on above: Performed By: #### L 200.0010 #### [facility] [address] [place] [address] 63568 MCH (RBC) [Entitic mass] 30.0 pg Normal 28.8-32.2 [facility] Comment on above: Performed By: #### L 200.0010 #### [facility] [address] [place] [address] 32622 MCHC (RBC) [Mass/Vol] 33.1 g/dL Normal 33.0-36.0 [facility] Comment on above: Performed By: #### L 200.0010 #### [facility] [address] [place] [address] 63359 MCV (RBC) [Entitic vol] 90.6 fL Normal 80.0-94.0 [facility] Comment on above: Performed By: #### L 200.0010 #### [facility] [address] [place] [address] 51518 MONO# 0.80 x10(3) Normal 0.30-0.80 [facility] Comment on above: Performed By: #### L 200.0010 #### [facility] [address] [place] [address] 56180 Monocytes/100 WBC (Bld) 8.7 % Normal 4.3-11.2 [facility] Comment on above: Performed By: #### L 200.0010 #### [facility] [address] [place] [address] 19556 NEUT# 6.20 x10(3) Normal 1.40-6.50 [facility] Comment on above: Performed By: #### L 200.0010 #### [facility] [address] [place] [address] 19558 Neutrophils/100 WBC (Bld) 66.2 % Normal 45.0-73.0 [facility] Comment on above: Performed By: #### L 200.0010 #### [facility] [address] [place] [address] 40717 Platelet mean volume (Bld) [Entitic vol] 9.1 fL Normal 7.4-9.2 [facility] Comment on above: Performed By: #### L 200.0010 #### [facility] - [facility] [address] [place] [address] 28148 PLT 283 X10(3) Normal 150-450 [facility] Comment on above: Performed By: #### L 200.0010 #### [facility] [address] [place] [address] 10130 RBC 4.48 x10(6) Low 4.80-5.50 [facility] Comment on above: Performed By: #### L 200.0010 #### [facility] [address] [place] [address] 71443 WBC 9.4 x10(3) Normal 4.5-10.0 [facility] Comment on above: Performed By: #### L 200.0010 #### [facility] - [facility] [address] [place] [address] CHEST-ONE VIEW ONLY - CXR1on 04-01-2021 CHEST-ONE VIEW ONLY - CXR1 [address] [address] Name: GUSTAVO PATTON Phys: CHAYO ARAYA D.O. : [birth year] Age: 70 Sex: M Acct: [id number] Loc: ED Exam Date: 04/01/21 Status: REG ER Radiology No.: Unit Number: [id number] Exam # Type/Exam [id number] RAD / CHEST-ONE VIEW ONLY - CXR1 EXAMINATION: ONE XRAY VIEW OF THE CHEST TECHNIQUE: One view upright COMPARISON: None HISTORY: ORDERING SYSTEM PROVIDED HISTORY: TECHNOLOGIST PROVIDED HISTORY: Reason for Exam: Focal neuro deficit,new,fixed,wors e FINDINGS: Support devices: None Cardiomediastinal: Slightly prominent [...] By: JOSE TIDWELL M.D. Tests performed at: [address] [address] Normal [facility] CT ANGIO HEAD W/WO CONTRASTo n 04-01-2021 CT ANGIO HEAD W/WO CONTRAST [address] [address] Name: GUSTAVO PATTON Phys: CHAYO ARAYA D.O. : [birth year] Age: 70 Sex: M Acct: [id number] Loc: ED Exam Date: 04/01/21 Status: REG ER Radiology No.: Unit Number: [id number] Exam # Type/Exam [id number] CT / CT ANGIO HEAD W/WO CONTRAST [...] PROVIDED HISTORY: Reason for Exam: Focal neuro deficit,new,fixed,wors e FINDINGS: Cerebral angiogram Aneurysm: No aneurysm identified. [...] 04/01/2021 11:22:09 AM EST Workstation ID : [id number] < > Reported By: JOSE TIDWELL M.D. Signed In Fluency By: JOSE TIDWELL M.D. << Signature on File>> Reported By: JOSE TIDWELL M.D. Signed By: JOSE TIDWELL M.D. Tests performed at: [address] [address] Normal [facility] CT ANGIO NECK W/WO CONTRASTo n 04-01-2021 CT ANGIO NECK W/WO CONTRAST [address] [address] Name: GUSTAVO PATTON Phys: CHAYO ARAYA D.O. : [birth year] Age: 70 Sex: M Acct: [id number] Loc: ED Exam Date: 04/01/21 Status: REG ER Radiology No.: Unit Number: [id number] Exam # Type/Exam [id number] CT / CT ANGIO NECK W/WO CONTRAST [...] PROVIDED HISTORY: Reason for Exam: Focal neuro deficit,new,fixed,wors e FINDINGS: Neck Angiogram Aorta: Normal. Right common [...] By: JOSE TIDWELL M.D. Tests performed at: [address] [address] Normal [facility] [address] BRAIN WITHOUT CONTRAST- C TBon 04-01-2021 CT BRAIN WITHOUT CONTRAST- CTB [address] [address] Name: GUSTAVO PATTON Phys: CHAYO ARAYA D.O. : [birth year] Age: 70 Sex: M Acct: [id number] Loc: ED Exam Date: 04/01/21 Status: REG ER Radiology No.: Unit Number: [id number] Exam # Type/Exam [id number] CT / CT BRAIN WITHOUT CONTRAST- CTB [...] 04/01/2021 10:36:29 AM EST Workstation ID : [id number] < > Reported By: STEPHANI WU M.D. Signed In Fluency By: STEPHANI WU M.D. << Signature on File>> Reported By: STEPHANI WU M.D. Signed By: STEPHANI WU M.D. Tests performed at: [place] [address] Normal [facility] ELECTROCARDIOGRAMon 04-01-19 Electrocardiogram [place] [address] HEALTH INFORMATION MANAGEMENT ELECTROCARDIOGRAM REPORT Patient: GUSTAVO PATTON Ordering: CHAYO ARAYA D.O. [id number] M Exam Date: 04/01/21 Report #: [id number] Status: REG ER ED Test Reason : [...] no stemi Confirmed by CHAYO ARAYA DO ([id number]) on 04/01/2021 12:17:14 PM Referred By: CHAYO ARAYA Confirmed By:CHAYO ARAYA DO Signed in MUSE 04/01/21 1218 CHAYO ARAYA D.O. cc: << Signature on File>> Reported By: CHAYO ARAYA D.O. Signed By: CHAYO ARAYA D.O. Tests performed at: [address] [address] Normal [facility] GLUCOSE FSon 04-01-2021 Glucose [Mass/Vol] 256 mg/dL High 70-110 [facility] Comment on above: Performed By: #### L 100.0070 #### [facility] [address] [place] [address] 61684 PTon 04-01-2021 INR Coag (PPP) [Relative time] 1.0 {INR} Normal 0.8-1.1 [facility] Comment on above: Result Comment: CO [...] systemic embolism) 2.0-3.0 AMI (to prevent recurrent MA) 2.5-3.5 Valvular heart disease 2.0-3.0 Atrial fibrillation 2.0-3.0 Mechanical prosthetic valves (high risk) 2.5-3.5 Bileaflet mechanical valve in aortic position 2.0-3.0 Presence of Lupus Anticoagulant or Antiphospholipid Antibodies 2.5-3.5 PANIC VALUE: GREATER THAN OR EQUAL TO 4.5 Performed By: #### L 200.1602, L200.1642 #### [facility] [address] [place] [address] PT Coag (PPP) [Time] 11.0 s Normal 9.4-12.5 [facility] Comment on above: Performed By: #### L 200.1602, L200.1642 #### [facility] - LAB[facility]ATORY [address] [place] [address] 82995 PTTon 04-01-2021 aPTT Coag (Bld) [Time] 29.0 s Normal 25.1-36.5 [facility] Comment on above: Result Comment: Hepa rin Protocol Therapeutic Range = 54.0-90.0 secs Performed By: #### L 200.1602, L200.1642 #### [facility] - [facility]ATORY [address] [place] [address]27 RAPID COVIDon 04-01-2021 SARS-CoV-2 (COVID-19) RNA ADELA+probe Ql (Unsp spec) Negative Normal NEGATIVE [facility] Comment on above: Result Comment: THIS TEST HAS BEEN AUTHORIZED BY FDA UNDER AN EMERGENCY USE AUTHORIZATION (EUA). NEGATIVE: NEGATIVE FOR COVID19 (SARS-CoV-2) BY PCR POSITIVE: POSITIVE FOR COVID19 (SARS-CoV-2) BY PCR PRESUMPTIVE POSITIVE: POSITIVE BY SINGLE [place] SARS-CoV TARGET. SARS-CoV-1 CANNOT BE EXCLUDED, BUT IS NOT CURRENTLY CIRCULATING IN [place]. Performed By: #### L 200.0010 #### [facility] - [facility] [address] [place] [address] TROPONIN Ton 04-01-2021 TROPONIN T <0.010 Normal 0-0.010 [facility] Comment on above: Performed By: #### L 200.0010 #### [facility] - [facility] [address] [place] [address] 88657 TYPE AND SCREENon 04-01-2021 AB SCRN Negative Normal [facility] Comment on above: Order Comment: [id number] ,PT SHIPPED OUT,ASHLEY Performed By: #### B 100.0700 #### [facility] - [facility] [address] [place] [address] 40963 BLD TYPE Positive Normal [facility] Comment on above: Order Comment: [id number] ,PT SHIPPED OUT,ASHLEY Performed By: #### B 100.0700 #### [facility] [address] [place] [address] COVID-19 virus antigen assay SARS-CoV-2 (COVID-19) Ag IA.rapid Ql (Resp) [facility] Work Phone: Culture, urine Bacteria identified Cx Nom (U) Culture exhibits no growth. [facility] Work Phone: Vital Signs Date Time Vital Sign Value Performing Clinician Facility 11-22-2024 12:36-0400 Body height 177.8 cm Tracie Abreu MD Work Phone: [facility] 10-29-2024 16:00-0400 Body temperature 99.4 [degF] Tracie Abreu MD Work Phone: [facility] 10-29-2024 16:00-0400 Diastolic blood pressure 76 mm[Hg] Tracie Abreu MD Work Phone: [facility] 10-29-2024 16:00-0400 Heart rate 100 /min Tracie Abreu MD Work Phone: [facility] 10-29-2024 16:00-0400 Respiratory rate 23 /min Tracie Abreu MD Work Phone: [facility] 10-29-2024 16:00-0400 SaO2% (BldA) [Mass fraction] 91 % Tracie Abreu MD Work Phone: [facility] 10-29-2024 16:00-0400 Systolic blood pressure 148 mm[Hg] Tracie Abreu MD Work Phone: [facility] 10-29-2024 15:10-0400 Body mass index (BMI) [Ratio] 27.8 kg/m2 Tracie Abreu MD Work Phone: [facility] 10-29-2024 15:10-0400 Body weight 88 kg Tracie Abreu MD Work Phone: [facility] 10-29-2024 15:10-0400 Inhaled oxygen flow rate 3 L/min Tracie Abreu MD Work Phone: [facility] 10-29-2024 02:52-0400 Body height 177.8 cm Tracie Abreu MD Work Phone: [facility] 10-17-2024 21:00-0400 Body temperature 99.6 [degF] Tracie Abreu MD Work Phone: [facility] 10-17-2024 21:00-0400 Diastolic blood pressure 73 mm[Hg] Tracie Abreu MD Work Phone: [facility] 10-17-2024 21:00-0400 Heart rate 126 /min Tracie Abreu MD Work Phone: [facility] 10-17-2024 21:00-0400 Respiratory rate 29 /min Tracie Abreu MD Work Phone: [facility] 10-17-2024 21:00-0400 SaO2% (BldA) [Mass fraction] 94 % Tracie Abreu MD Work Phone: [facility] 10-17-2024 21:00-0400 Systolic blood pressure 119 mm[Hg] Tracie Abreu MD Work Phone: [facility] 10-17-2024 18:07-0400 Body height 177.8 cm Tracie Abreu MD Work Phone: [facility] 10-17-2024 18:07-0400 Body mass index (BMI) [Ratio] 25 kg/m2 Tracie Abreu MD Work Phone: [facility] 10-17-2024 18:07-0400 Body weight 79.2 kg Tracie Abreu MD Work Phone: [facility] 08-06-2024 14:27-0400 Body mass index (BMI) [Ratio] 26.83 kg/m2 Edith Hart DO Work Phone: [facility] 08-06-2024 14:27-0400 Body temperature 97.59 [degF] Edith Hart DO Work Phone: [facility] 08-06-2024 14:27-0400 Body weight 83.01 kg Edith Liangi DO Work Phone: [facility] 08-06-2024 14:27-0400 Diastolic blood pressure 74 mm[Hg] Edith Liangi DO Work Phone: [facility] 08-06-2024 14:27-0400 Heart rate 83 /min Edith Liangi DO Work Phone: [facility] 08-06-2024 14:27-0400 SaO2% (BldA) [Mass fraction] 96 % Edith Liangi DO Work Phone: [facility] 08-06-2024 14:27-0400 Systolic blood pressure 112 mm[Hg] Edith Liangi DO Work Phone: [facility] 07-12-2024 11:12-0400 Body mass index (BMI) [Ratio] 27.42 kg/m2 Layne Manley Jr., MD Work Phone: [facility] 07-12-2024 11:12-0400 Body weight 84.82 kg Layne Manley Jr., MD Work Phone: [facility] 07-12-2024 11:12-0400 Diastolic blood pressure 72 mm[Hg] Layne Manley Jr., MD Work Phone: [facility] 07-12-2024 11:12-0400 Heart rate 97 /min Layne Manley Jr., MD Work Phone: [facility] 07-12-2024 11:12-0400 Respiratory rate 16 /min Layne Manley Jr., MD Work Phone: [facility] 07-12-2024 11:12-0400 SaO2% (BldA) [Mass fraction] 96 % Layne Manley Jr., MD Work Phone: [facility] 07-12-2024 11:12-0400 Systolic blood pressure 113 mm[Hg] Layne Manley Jr., MD Work Phone: [facility] 02-29-2024 11:05-0500 Body height 177.8 cm Tracie Abreu MD Work Phone: [facility] 02-29-2024 11:05-0500 Body mass index (BMI) [Ratio] 26.2 kg/m2 Tracie Abreu MD Work Phone: [facility] 02-29-2024 11:05-0500 Body weight 83 kg Tracie Abreu MD Work Phone: [facility] 02-29-2024 11:05-0500 Diastolic blood pressure 77 mm[Hg] Tracie Abreu MD Work Phone: [facility] 02-29-2024 11:05-0500 Heart rate 86 /min Tracie Abreu MD Work Phone: [facility] 02-29-2024 11:05-0500 Respiratory rate 18 /min Tracie Abreu MD Work Phone: [facility] 02-29-2024 11:05-0500 SaO2% (BldA) [Mass fraction] 98 % Tracie Abreu MD Work Phone: [facility] 02-29-2024 11:05-0500 Systolic blood pressure 127 mm[Hg] Tracie Abreu MD Work Phone: [facility] 12-06-2023 12:30-0400 Diastolic blood pressure 73 mm[Hg] Fallon Steiner PA-C Work Phone: [facility] 12-06-2023 12:30-0400 Heart rate 95 /min Fallon Steiner PA-C Work Phone: [facility] 12-06-2023 12:30-0400 SaO2% (BldA) [Mass fraction] 96 % Fallon Steiner PA-C Work Phone: [facility] 12-06-2023 12:30-0400 Systolic blood pressure 122 mm[Hg] Fallon Steiner PA-C Work Phone: [facility] 10-20-2023 10:42-0400 Body mass index (BMI) [Ratio] 26.95 kg/m2 Layne Manley Jr., MD Work Phone: [facility] 10-20-2023 10:42-0400 Body weight 83.37 kg Layne Manley Jr., MD Work Phone: [facility] 10-20-2023 10:42-0400 Diastolic blood pressure 78 mm[Hg] Layne Manley Jr., MD Work Phone: [facility] 10-20-2023 10:42-0400 Heart rate 86 /min Layne Manley Jr., MD Work Phone: [facility] 10-20-2023 10:42-0400 SaO2% (BldA) [Mass fraction] 97 % Layne Manley Jr., MD Work Phone: [facility] 10-20-2023 10:42-0400 Systolic blood pressure 122 mm[Hg] Layne Manley Jr., MD Work Phone: [facility] 09-25-2023 15:35-0400 Body mass index (BMI) [Ratio] 26.9 kg/m2 Edith Masci DO Work Phone: [facility] 09-25-2023 15:35-0400 Body temperature 98.29 [degF] Edith Masci DO Work Phone: [facility] 09-25-2023 15:35-0400 Body weight 83.23 kg Edith Masci DO Work Phone: [facility] 09-25-2023 15:35-0400 Diastolic blood pressure 75 mm[Hg] Edith Masci DO Work Phone: [facility] 09-25-2023 15:35-0400 Heart rate 83 /min Edith Masci DO Work Phone: [facility] 09-25-2023 15:35-0400 SaO2% (BldA) [Mass fraction] 98 % Edith Masci DO Work Phone: [facility] 09-25-2023 15:35-0400 Systolic blood pressure 114 mm[Hg] Edith Liangi DO Work Phone: [facility] 08-07-2023 10:40-0400 Body height 175.9 cm Edith Liangi DO Work Phone: [facility] 08-07-2023 10:40-0400 Body mass index (BMI) [Ratio] 25.95 kg/m2 Edith Liangi DO Work Phone: [facility] 08-07-2023 10:40-0400 Body temperature 97.59 [degF] Edith Liangi DO Work Phone: [facility] 08-07-2023 10:40-0400 Body weight 80.29 kg Edith Liangi DO Work Phone: [facility] 08-07-2023 10:40-0400 Diastolic blood pressure 76 mm[Hg] Edith Liangi DO Work Phone: [facility] 08-07-2023 10:40-0400 Heart rate 90 /min Edith Liangi DO Work Phone: [facility] 08-07-2023 10:40-0400 SaO2% (BldA) [Mass fraction] 98 % Edith Liangi DO Work Phone: [facility] 08-07-2023 10:40-0400 Systolic blood pressure 112 mm[Hg] Edith Liangi DO Work Phone: [facility] 07-17-2023 14:07-0400 Body mass index (BMI) [Ratio] 26.09 kg/m2 Layne Manley Jr., MD Work Phone: [facility] 07-17-2023 14:07-0400 Body weight 82.46 kg Layne Manley Jr., MD Work Phone: [facility] 07-17-2023 14:07-0400 Diastolic blood pressure 76 mm[Hg] Layne Manley Jr., MD Work Phone: [facility] 07-17-2023 14:07-0400 Heart rate 84 /min Layne Manley Jr., MD Work Phone: [facility] 07-17-2023 14:07-0400 Respiratory rate 16 /min Layne Manley Jr., MD Work Phone: [facility] 07-17-2023 14:07-0400 SaO2% (BldA) [Mass fraction] 96 % Layne Manley Jr., MD Work Phone: [facility] 07-17-2023 14:07-0400 Systolic blood pressure 120 mm[Hg] Layne Manley Jr., MD Work Phone: [facility] 04-18-2023 09:50-0400 Body weight 80.2 kg Fallon Cavazoser PA-C Work Phone: [facility] 04-18-2023 09:50-0400 Diastolic blood pressure 78 mm[Hg] Fallon Queener PA-C Work Phone: [facility] 04-18-2023 09:50-0400 Heart rate 94 /min Fallon Queener PA-C Work Phone: [facility] 04-18-2023 09:50-0400 Respiratory rate 16 /min Fallon Queener PA-C Work Phone: [facility] 04-18-2023 09:50-0400 SaO2% (BldA) [Mass fraction] 96 % Fallon Queener PA-C Work Phone: [facility] 04-18-2023 09:50-0400 Systolic blood pressure 122 mm[Hg] Fallon Queener PA-C Work Phone: [facility] 12-05-2022 15:40-0400 Body mass index (BMI) [Ratio] 22.1 kg/m2 DO Madhavi Chaudhry Work Phone: [facility] 12-05-2022 15:38-0400 Body temperature 97.6 [degF] DO Madhavi Chaudhry Work Phone: [facility] 12-05-2022 15:38-0400 Diastolic blood pressure 73 mm[Hg] DO Madhavi Richa Work Phone: [facility] 12-05-2022 15:38-0400 Heart rate 92 /min DO Madhavi Richa Work Phone: [facility] 12-05-2022 15:38-0400 Respiratory rate 18 /min DO Madhavi Ircha Work Phone: [facility] 12-05-2022 15:38-0400 SaO2% (BldA) [Mass fraction] 97 % DO Madhavi Richa Work Phone: [facility] 12-05-2022 15:38-0400 Systolic blood pressure 125 mm[Hg] DO Madhavi Richa Work Phone: [facility] 12-05-2022 05:29-0400 Body weight 70.2 kg DO Madhavi Richa Work Phone: [facility] 12-01-2022 13:20-0400 Body height 177.8 cm DO Madhavi Richa Work Phone: [facility] 11-24-2022 13:05-0400 Body temperature 97.1 [degF] DO Madhavi Richa Work Phone: [facility] 11-24-2022 13:05-0400 Diastolic blood pressure 77 mm[Hg] DO Madhavi Richa Work Phone: [facility] 11-24-2022 13:05-0400 Heart rate 97 /min DO Madhavi Richa Work Phone: [facility] 11-24-2022 13:05-0400 Respiratory rate 16 /min DO Madhavi Richa Work Phone: [facility] 11-24-2022 13:05-0400 SaO2% (BldA) [Mass fraction] 96 % DO Madhavi Richa Work Phone: [facility] 11-24-2022 13:05-0400 Systolic blood pressure 118 mm[Hg] DO Madhavi Richa Work Phone: [facility] 11-24-2022 09:23-0400 Body height 177.8 cm DO Madhavi Chaudhry Work Phone: [facility] 11-24-2022 09:23-0400 Body weight 71 kg DO Madhavi Chaudhry Work Phone: [facility] 11-23-2022 23:13-0400 Body mass index (BMI) [Ratio] 22.4 kg/m2 DO Madhavi Chaudrhy Work Phone: [facility] 11-22-2022 11:47-0400 Diastolic blood pressure 80 mm[Hg] [facility] 11-22-2022 11:47-0400 Heart rate 95 /min [facility] 11-22-2022 11:47-0400 Respiratory rate 16 /min [facility] 11-22-2022 11:47-0400 SaO2% (BldA) [Mass fraction] 98 % [facility] 11-22-2022 11:47-0400 Systolic blood pressure 100 mm[Hg] [facility] 11-22-2022 10:23-0400 Body mass index (BMI) [Ratio] 23.6 kg/m2 [facility] 11-22-2022 09:48-0400 Body height 177.8 cm [facility] 11-22-2022 09:48-0400 Body temperature 98.7 [degF] [facility] 11-22-2022 09:48-0400 Body weight 74.9 kg [facility] 01-13-2022 10:14-0500 Body height 177.8 cm Clarence Colin MD Work Phone: [facility] 01-13-2022 10:14-0500 Body weight 63.78 kg Clarence Colin MD Work Phone: [facility] 01-13-2022 10:14-0500 Diastolic blood pressure 64 mm[Hg] Clarence Colin MD Work Phone: [facility] 01-13-2022 10:14-0500 Heart rate 92 /min Clarence Colin MD Work Phone: [facility] 01-13-2022 10:14-0500 Respiratory rate 16 /min Clarence Colin MD Work Phone: [facility] 01-13-2022 10:14-0500 Systolic blood pressure 118 mm[Hg] Clarence Colin MD Work Phone: [facility] 12-17-2021 10:57-0500 Body temperature 97.81 [degF] Layne Manley Jr., MD Work Phone: [facility] 12-17-2021 10:57-0500 Body weight 68.04 kg Layne Manley Jr., MD Work Phone: [facility] 12-17-2021 10:57-0500 Diastolic blood pressure 68 mm[Hg] Layne Manley Jr., MD Work Phone: [facility] 12-17-2021 10:57-0500 Heart rate 110 /min Layne Manley Jr., MD Work Phone: [facility] 12-17-2021 10:57-0500 Respiratory rate 18 /min Layne Manley Jr., MD Work Phone: [facility] 12-17-2021 10:57-0500 SaO2% (BldA) [Mass fraction] 99 % Layne Manley Jr., MD Work Phone: [facility] 12-17-2021 10:57-0500 Systolic blood pressure 138 mm[Hg] Layne Manley Jr., MD Work Phone: [facility] 10-13-2021 15:10-0400 Diastolic blood pressure 82 mm[Hg] [facility] Work Phone: 10-13-2021 15:10-0400 Heart rate 85 /min [facility] Work Phone: 10-13-2021 15:10-0400 Respiratory rate 18 /min [facility] Work Phone: 10-13-2021 15:10-0400 SaO2% (BldA) [Mass fraction] 98 % [facility] Work Phone: 10-13-2021 15:10-0400 Systolic blood pressure 135 mm[Hg] [facility] Work Phone: 10-13-2021 10:58-0400 Body height 177.8 cm [facility] Work Phone: 10-13-2021 10:58-0400 Body mass index (BMI) [Ratio] 21.2 kg/m2 [facility] Work Phone: 10-13-2021 10:58-0400 Body temperature 97.2 [degF] [facility] Work Phone: 10-13-2021 10:58-0400 Body weight 67.13 kg [facility] Work Phone: 08-04-2021 20:18-0400 Diastolic blood pressure 78 mm[Hg] [facility] Work Phone: 08-04-2021 20:18-0400 Heart rate 109 /min [facility] Work Phone: 08-04-2021 20:18-0400 Respiratory rate 27 /min [facility] Work Phone: 08-04-2021 20:18-0400 SaO2% (BldA) [Mass fraction] 97 % [facility] Work Phone: 08-04-2021 20:18-0400 Systolic blood pressure 123 mm[Hg] [facility] Work Phone: 08-04-2021 15:05-0400 Body height 177.8 cm [facility] Work Phone: 08-04-2021 15:05-0400 Body mass index (BMI) [Ratio] 24.6 kg/m2 [facility] Work Phone: 08-04-2021 15:05-0400 Body temperature 98 [degF] [facility] Work Phone: 08-04-2021 15:05-0400 Body weight 77.9 kg [facility] Work Phone: 05-12-2021 15:00-0400 Body height 177.8 cm Willa Jay [employer]USS ASSEMBLER.COMMERCIAL UNDERWRITER Work Phone: [facility] 05-12-2021 15:00-0400 Body weight 81.28 kg Willa Jay [employer]USS ASSEMBLER.COMMERCIAL UNDERWRITER Work Phone: [facility] 05-12-2021 15:00-0400 Diastolic blood pressure 72 mm[Hg] Willa Jay [employer]USS ASSEMBLER.COMMERCIAL UNDERWRITER Work Phone: [facility] 05-12-2021 15:00-0400 Heart rate 92 /min Willa Jay [employer]USS ASSEMBLER.COMMERCIAL UNDERWRITER Work Phone: [facility] 05-12-2021 15:00-0400 SaO2% (BldA) [Mass fraction] 97 % Willa Jay [employer]USS ASSEMBLER.COMMERCIAL UNDERWRITER Work Phone: [facility] 05-12-2021 15:00-0400 Systolic blood pressure 116 mm[Hg] Willa Jay [employer]USS ASSEMBLER.COMMERCIAL UNDERWRITER Work Phone: [facility] Encounters Encounter Date Encounter Type Care Provider Facility Start: 12-13-2024 End: 12-13-2024 ambulatory Juan Palacios Facility:[facility] Start: 11-28-2024 End: 11-28-2024 ambulatory Bonnie Aguilar NP Facility:[facility] Start: 11-27-2024 ambulatory Conrad William cility:[facility] Start: 11-20-2024 ambulatory Chalon Joel Facility:[facility] Start: 11-20-2024 Conrad Curtis Start: 11-13-2024 ambulatory Chalon Joel Facility:[facility] Start: 11-13-2024 Conrad Curtis Start: 11-06-2024 ambulatory Chalon Joel Facility:[facility] Start: 11-06-2024 Conrad Curtis Start: 10-31-2024 End: 10-31-2024 ambulatory Chalon Joel MD Work Phone: [facility] [place][Note 2] Start: 10-31-2024 End: 10-31-2024 [facility] Start: 10-31-2024 Conrad Burnett MD [facility] Start: 10-30-2024 End: 10-31-2024 ambulatory Tracie Abreu MD Work Phone: [facility] [place][Note 2] Start: 10-30-2024 End: 10-30-[address] [facility] Work Phone: Start: 10-29-2024 Dr. Juan Palacios MD - [facility] Start: 10-28-2024 Dr. Javon Baldwin DO [facility] Work Phone: Start: 10-28-2024 [facility] Start: 10-27-2024 Dr. Rosmery Lake MD [facility] Work Phone: Start: 10-27-2024 Dr. Eliot Hand MD [facility] Start: 10-26-2024 Dr. Rosmery Lake MD - [place] [facility] Work Phone: Start: 10-26-2024 Dr. Eliot Hand MD [facility] Start: 10-25-2024 Dr. Rosmery Lake MD [facility] Work Phone: Start: 10-24-2024 Dr. Cece Dennis MD -[facility] Start: 10-24-2024 Dr. Rosmery Lake MD [facility] Work Phone: Start: 10-23-2024 Dr. Rosmery Lake MD [facility] Work Phone: Start: 10-22-2024 Dr. Rosmery Lake MD [facility] Work Phone: Start: 10-22-2024 Roxanna Alvarez [facility] Start: 10-21-2024 Dr. Juan Palacios MD - [facility] Start: 10-21-2024 Dr. Rosmery Lake MD - [place] [facility] Work Phone: Start: 10-20-2024 Dr[facility] Nathalia [facility] Work Phone: Start: 10-19-2024 Dr. Nathalia Garcia DO -[facility] Work Phone: Start: 10-18-2024 ambulatory Chalon Joel Facility:[facility] Start: 10-18-2024 Dr. James Sanchez MD [facility] Start: 10-18-2024 Dr. Nathalia Garcia [facility] Work Phone: Start: 10-17-2024 ambulatory Chalon Joel Facility:[facility] Start: 10-17-2024 End: 10-29-2024 Evaluation and management of inpatient Dr. Kenrick Ng -Progressive Care Unit Work Phone: Start: 10-17-2024 End: 10-29-2024 [facility] Start: 09-16-2024 End: 09-16-2024 ambulatory Mona Roach [facility] Physical Therapy Comment on above: Abnormality of gait (Primary Dx); Parkinsonism, unspecified Parkinsonism type (HCC) Start: 09-05-2024 End: 09-06-2024 Refill Edith Hart DO Work Phone: Hematology/Oncology Comment on above: Refill Request Start: 08-06-2024 End: 08-06-2024 Patient encounter procedure Edith Hart DO Work Phone: Hematology/Oncology Start: 08-06-2024 End: 08-06-2024 ambulatory Eidth Hart DO Work Phone: Hematology/Oncology Comment on above: Elevated factor VIII level (Primary Dx) Start: 07-29-2024 End: 07-29-2024 ambulatory Mona Roach PT [facility] Physical Therapy Comment on above: Parkinsonism, unspec ified Parkinsonism type (HCC) (Primary Dx); Abnormality of gait Start: 07-12-2024 End: 07-12-2024 Patient encounter procedure Layne Manley MD Work Phone: Neurology Comment on above: Parkinsonism, unspec ified Parkinsonism type (HCC) (Primary Dx); Abnormality of gait; Recurrent strokes (HCC); History of DVT (deep vein thrombosis); 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 Fabien Leal DPM -Cardiovascular Services Work Phone: Start: 05-01-2024 End: 05-01-2024 ambulatory Tracie [facility] Facility:[facility] Start: 03-12-2024 End: 03-13-2024 Refill Edtih Hart DO Work Phone: Hematology/Oncology Comment on above: Refill Request Start: 02-29-2024 End: 02-29-2024 Patient encounter procedure Iain HERRMANN -[facility] Work Phone: Start: 02-29-2024 End: 02-29-2024 ambulatory Tracie Joel Facility:[facility] Start: 01-26-2024 End: 01-26-2024 ambulatory FALLON STEINER Facility:[facility] Start: 01-26-2024 End: 01-26-2024 Discharged Recurring FALLON STEINER PA -Physical Therapy Work Phone: Start: 01-12-2024 End: 01-12-[address] 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; Parkinsonism, unspecified Parkinsonism type (HCC) Start: 10-20-2023 End: 10-20-2023 ambulatory LAYNE MANLEY JR Facility:[facility] Start: 10-03-2023 End: 10-03-2023 Telephone encounter Edith Monique Azulmaura DO Work Phone: Hematology/Oncology Comment on above: Medication Question Start: 10-01-2023 End: 10-01-2023 Telephone encounter Edith Hart DO Work Phone: Hematology/Oncology Comment on above: Opened In Error Start: 09-25-2023 End: 09-25-2023 ambulatory Edith Amaya Azulmaura DO Work Phone: Hematology/Oncology Comment on above: Elevated factor VIII level (Primary Dx); Chronic deep vein thrombosis (DVT) of femoral vein of right lower extremity (HCC); Recurrent strokes (HCC); Presence of IVC filter Start: 09-25-2023 End: 09-25-2023 Patient encounter procedure Edith Hart DO Work Phone: Hematology/Oncology Start: 09-14-2023 End: 10-03-2023 Telephone encounter Layne Manley MD Work Phone: Neurology Comment on above: Results Start: 09-12-2023 Telephone encounter Edith ramirez DO Work Phone: Hematology/Oncology Comment on above: Results Start: 09-05-2023 Telephone encounter Layne Manley MD Work Phone: [facility] Comment on above: Patient Question Start: 08-21-2023 End: 08-21-2023 Subsequent hospital visit by physician [facility] (I-Stat/1.5t) Work Phone: Radiology Comment on above: Cerebral infarction, unspecified mechanism (HCC) [I63.9] Start: 08-17-2023 Telephone encounter Layne Manley MD Work Phone: Neurology Comment on above: Patient Update Start: 08-07-2023 Telephone encounter Edith ramirez DO Work Phone: Hematology/Oncology Comment on above: Follow Up Start: 08-07-2023 End: 08-07-2023 ambulatory Edith Hart DO Work Phone: Hematology/Oncology Comment on above: Recurrent strokes (H CC) (Primary Dx); Chronic deep vein thrombosis (DVT) of femoral vein of right lower extremity (HCC); Presence of IVC filter Start: 08-07-2023 End: 08-07-2023 Patient encounter procedure Edith Hart DO Work Phone: Hematology/Oncology Start: 07-25-2023 Telephone encounter Layne Manley MD Work Phone: Neurology Comment on above: Release Of Medical R ecords Start: 07-18-2023 Telephone encounter Edith ramirez DO Work Phone: Hematology/Oncology Comment on above: New Patient Start: 07-17-2023 End: 07-17-2023 Patient encounter procedure Layne Manley MD Work Phone: Neurology Comment on above: Recurrent strokes (H CC) (Primary Dx); Cerebral infarction, unspecified mechanism (HCC) Start: 05-19-2023 End: 05-19-2023 ambulatory CATHLEEN GOEL Facility:[id number] Start: 05-19-2023 End: 05-19-2023 ambulatory Cathleen Goel OT/L [facility] Comment on above: Cerebrovascular acci dent (CVA), unspecified mechanism (HCC) (Primary Dx); Language impairment; 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) Start: 05-11-2023 Telephone encounter Cathleen Goel OT/L [facility] Comment on above: Results; Patient Upd ate (This therapist called patient's sister who is DPOA and lives in [place] regarding Gustavo's recent clinical assessment results of [...] strokes.) Start: 05-04-2023 End: 05-04-2023 ambulatory Cathleen Goel OT/L [facility] Comment on above: Language impairment (Primary Dx); Cerebrovascular accident (CVA), unspecified mechanism (HCC) Start: 04-30-2023 Refill Blayne kirby MD Work Phone: [facility] [place] Comment on above: Refill Request Start: 04-20-2023 Telephone encounter Fallon myers PA-C Work Phone: Neurology Comment on above: Patient Question Start: 04-18-2023 End: 04-18-2023 Patient encounter procedure Fallon Cavazosmyles GRA[facility]C Work Phone: Neurology Comment on above: Cerebrovascular acci dent (CVA), unspecified mechanism (HCC) (Primary Dx); Left arm weakness; Cognitive developmental delay Start: 01-05-2023 End: 01-05-2023 ambulatory DO Madhavi Chaudhry Work Phone: [facility] Work Phone: Start: 01-05-2023 End: 01-05-2023 Patient encounter procedure DO Madhavi Chaudhry Work Phone: [facility] Work Phone: Start: 12-14-2022 End: 12-14-2022 ambulatory DO Madhavi Munozer Work Phone: [facility] Work Phone: Start: 12-14-2022 End: 12-14-2022 Patient encounter procedure DO Madhavi Chaudhry Work Phone: [facility] Start: 12-05-2022 Non-patient / Non-visit DO Lor Munozer Work Phone: [facility] In[facility] Work Phone: Start: 12-01-2022 Non-patient / Non-visit DO Krmaura quintanan Richa Work Phone: [facility] Work Phone: Start: 11-29-2022 Non-patient / Non-visit DO Krmaura quintanan Richa Work Phone: [facility] Work Phone: Start: 11-28-2022 Non-patient / Non-visit DO Kri stin Richa Work Phone: [facility] Work Phone: Start: 11-24-2022 Non-patient / Non-visit DO Kri stin Richa Work Phone: [facility] Work Phone: Start: 11-24-2022 End: 12-05-2022 Evaluation and management of inpatient DO Madhaviilan Hassannger Work Phone: [facility]Rehab Unit Work Phone: Start: 11-23-2022 End: 11-24-2022 Evaluation and management of inpatient DO Madhaviilan Hassannger Work Phone: [facility]-Intensive Care Unit Work Phone: Start: 11-23-2022 Non-patient / Non-visit DO Kri stin Richa Work Phone: [facility] Work Phone: Start: 11-22-2022 Non-patient / Non-visit DO Kri stin Richa Work Phone: [facility] Start: 11-22-2022 Evaluation and management of inpatient [facility] Work Phone: Start: 11-22-2022 observation encounter [facility] Work Phone: Start: 07-08-2022 Refill Blayne kirby MD Work Phone: [facility] Comment on above: Refill Request Start: 05-27-2022 Refill Willa rebolledo TRUSS ASSEMBLER.COMMERCIAL UNDERWRITER Work Phone: [facility] Comment on above: Refill Request Start: 05-20-2022 Refill Willa rebolledo APRN.CNP Work Phone: [facility] Comment on above: Refill Request Start: 05-20-2022 Telephone encounter Blayne Marin MD Work Phone: [facility] Cardiology Comment on above: Appointment Start: 05-02-2022 Non-patient / Non-visit DO Lor quintanapaul Munozer Work Phone: [facility] Start: 05-02-2022 End: 05-02-2022 ambulatory DO Madhavi Hassannger Work Phone: [facility] Work Phone: Start: 05-02-2022 End: 05-02-2022 Patient encounter procedure DO Madhavi Hassannger Work Phone: [facility]-Cardiovascu lar Services Start: 04-25-2022 End: 04-25-2022 Patient encounter procedure DO Madhavi Hassannger Work Phone: [facility] Start: 03-31-2022 Telephone encounter Layne Manley MD Work Phone: Neurology Comment on above: Information Start: 03-17-2022 End: 03-17-2022 ambulatory DO Madhavi Chaudhry Work Phone: [facility] Work Phone: Start: 03-17-2022 End: 03-17-2022 Discharged Recurring DO Madhavi Hassannger Work Phone: [facility]-Physical Therapy Start: 03-17-2022 Registered Recurring DO Sheree Chaudhry Work Phone: [facility]-Physical Therapy Start: 02-16-2022 End: 02-16-2022 ambulatory Cathleen Daviesk OT/L [facility] Comment on above: 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) Start: 02-11-2022 End: 02-11-2022 ambulatory Cathleen A Boyd OT/L [facility] Comment on above: 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) Start: 01-14-2022 Telephone encounter Layne Manley MD Work Phone: Sleep Comment on above: Fax order to out asha e Start: 01-13-2022 End: 01-13-2022 ambulatory EDITH FRASER Facility:[facility] Start: 01-13-2022 End: 01-13-2022 Patient encounter procedure Clarence Colin MD Work Phone: [facility] Cardiac, Thoracic, and Vascular Specialties Comment on above: Deep vein thrombosis (DVT) of femoral vein, unspecified chronicity, unspecified laterality (HCC) Start: 01-05-2022 Telephone encounter Layne Manley MD Work Phone: Neurology Comment on above: Orders [facility] Net[facility] rk requesting records Start: 01-04-2022 Telephone encounter Layne Manley MD Work Phone: Neurology Comment on above: Results Start: 12-29-2021 End: 12-29-2021 Patient encounter procedure [facility] Work Phone: Vasculary Surgery Comment on above: Deep vein thrombosis (DVT) of popliteal vein of right lower extremity, unspecified chronicity (HCC) Start: 12-28-2021 Telephone encounter Layne Manley MD Work Phone: Neurology Comment on above: Results Start: 12-27-2021 End: 12-27-2021 Patient encounter procedure Echocardi[facility] Work Phone: Cardiology Comment on above: 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) Start: 12-24-2021 End: 12-24-2021 Subsequent hospital visit by physician [facility] (I-Stat) Work Phone: Cat Scan Comment on above: 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) [I63.412] Start: 12-21-2021 End: 12-21-2021 Patient encounter procedure [facility]Cardiovasc[facility] lar Services Start: 12-17-2021 End: 12-17-2021 Patient encounter procedure Layne Manley MD Work Phone: Neurology Comment on above: 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); History of DVT (deep vein thrombosis); Deep vein thrombosis (DVT) of popliteal vein of right lower extremity, unspecified chronicity (HCC); 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 Start: 12-16-2021 Telephone encounter Layne Manley MD Work Phone: Neurology Comment on above: Appointment Start: 12-01-2021 End: 12-01-2021 ambulatory [facility] Work Phone: Start: 12-01-2021 End: 12-01-2021 [facility] Start: 11-05-2021 End: 11-05-2021 ambulatory [facility] Work Phone: Start: 11-05-2021 End: 11-05-2021 Patient encounter procedure [facility] Start: 10-13-2021 End: 10-13-2021 Emergency department patient visit [facility]Emergency Department Start: 10-05-2021 [facility] Start: 08-04-2021 End: 08-04-2021 Emergency department patient visit [facility]Emergency Department Start: 08-04-2021 [facility] Start: 06-30-2021 Telephone encounter Adriana abreu MD Work Phone: [place] [facility] Comment on above: modified [place] [facility] Start: 06-28-2021 Telephone encounter Willa mcelroy APRN.COMMERCIAL UNDERWRITER Work Phone: [facility] Cardiology Comment on above: Results Start: 06-11-2021 Registered Recurring [facility] Start: 06-08-2021 End: 06-08-2021 Subsequent hospital visit by physician Holter/Event Monitor [facility] Comment on above: Shortness of breath [R06.02] Start: 06-02-2021 Telephone encounter Jackeline Dunne RN [facility] Comment on above: Orders ([place] [facility] - ord er contact/deferral) Start: 05-12-2021 End: 05-12-2021 Patient encounter procedure Willa Jay APRN.COMMERCIAL UNDERWRITER Work Phone: [facility] Cardiology [place] Comment on above: Shortness of breath Start: 05-06-2021 Telephone encounter [facility] Comment on above: Orders ([place] [facility] - jennifer t contact/SNF letter 2) Procedures Date Procedure Procedure Detail Performing Clinician Start: 11-27-2024 Mean corpuscular hem oglobin concentration determination Tracie Abreu MD Work Phone: Start: 11-27-2024 Neutrophil count Tracie Abreu MD Work Phone: Start: 11-27-2024 Nucleated red blood cell count procedure Tracie Abreu MD Work Phone: Start: 11-27-2024 Platelet mean volume determination Tracie Abreu MD Work Phone: Start: 11-20-2024 Mean corpuscular hem oglobin concentration determination Tracie Abreu MD Work Phone: Start: 11-20-2024 Neutrophil count Tracie Abreu MD Work Phone: Start: 11-20-2024 Nucleated red blood cell count procedure Tracie Abreu MD Work Phone: Start: 11-20-2024 Platelet mean volume determination Tracie Abreu MD Work Phone: Start: 11-13-2024 Mean corpuscular hem oglobin concentration determination Tracie Abreu MD Work Phone: Start: 11-13-2024 Neutrophil count Tracie Abreu MD Work Phone: Start: 11-13-2024 Nucleated red blood cell count procedure Tracie Abreu MD Work Phone: Start: 11-13-2024 Platelet mean volume determination Tracie Abreu MD Work Phone: Start: 11-06-2024 Mean corpuscular hem oglobin concentration determination Tracie Abreu MD Work Phone: Start: 11-06-2024 Neutrophil count Tracie Abreu MD Work Phone: Start: 11-06-2024 Nucleated red blood cell count procedure Tracie Abreu MD Work Phone: Start: 11-06-2024 Platelet mean volume determination Tracie Abreu MD Work Phone: Start: 10-31-2024 Blood count smear mc rscp w/mnl difrntl wbc count Tracie Abreu MD Work Phone: Start: 10-31-2024 Mean corpuscular hem oglobin concentration determination Tracie Abreu MD Work Phone: Start: 10-31-2024 Neutrophil count Tracie Abreu MD Work Phone: Start: 10-31-2024 Nucleated red blood cell count procedure Tracie Abreu MD Work Phone: Start: 10-31-2024 Platelet mean volume determination Tracie Abreu MD Work Phone: Start: 10-29-2024 Plain chest X-ray Huey Abreu MD Work Phone: Start: 10-29-2024 Insertion of hemodia lysis catheter Tracie Abreu MD Work Phone: Start: 10-29-2024 Fluoroscopic guidance Joanne Abreu MD Work Phone: Start: 10-29-2024 Blood count smear mc rscp w/mnl difrntl wbc count Tracie Abreu MD Work Phone: Start: 10-29-2024 Estimated creatinine clearance Tracie Abreu MD Work Phone: Start: 10-29-2024 Mean corpuscular hem oglobin concentration determination Tracie Abreu MD Work Phone: Start: 10-29-2024 Neutrophil count Tracie Abreu MD Work Phone: Start: 10-29-2024 Nucleated red blood cell count procedure Tracie Aberu MD Work Phone: Start: 10-29-2024 Platelet mean volume determination Tracie Abreu MD Work Phone: Start: 10-26-2024 Urine culture Tracie martinez MD Work Phone: Start: 10-26-2024 CT of chest, abdomen and pelvis without contrast Tracie Abreu MD Work Phone: Start: 10-26-2024 Myelocyte percent differential count Tracie Abreu MD Work Phone: Start: 10-25-2024 Blood culture Tracie martinez MD Work Phone: Start: 10-25-2024 Plain chest X-ray Huey Abreu MD Work Phone: Start: 10-25-2024 Urine microscopy: red cells Tracie Abreu MD Work Phone: Start: 10-25-2024 Urnls dip stick/tabl et reagent auto microscopy Tracie Abreu MD Work Phone: Start: 10-24-2024 Plain chest X-ray Huey Abreu MD Work Phone: Start: 10-23-2024 Videoswallow Tracie kirby MD Work Phone: Start: 10-22-2024 Us retroperitoneal r eal time w/image complete Tracie Abreu MD Work Phone: Start: 10-22-2024 Antibody measurement Ch trae Abreu MD Work Phone: Start: 10-22-2024 C>3< complement assay C yana Abreu MD Work Phone: Start: 10-22-2024 Electrophoresis: [id number] Tracie Abreu MD Work Phone: Start: 10-22-2024 Electrophoresis: [id number] Tracie Abreu MD Work Phone: Start: 10-22-2024 Electrophoresis: david ma globulin Tracie Abreu MD Work Phone: Start: 10-21-2024 Plain chest X-ray Huey Abreu MD Work Phone: Start: 10-21-2024 Clostridium difficil e detection Tracie Abreu MD Work Phone: Start: 10-21-2024 Nucleic acid assay Flo Abreu MD Work Phone: Start: 10-21-2024 Iadna-dna/rna gi pth gn multiplex probe tq 6-11 Tracie Abreu MD Work Phone: Start: 10-20-2024 Carbon dioxide measu rement, partial pressure Tracie Abreu MD Work Phone: Start: 10-20-2024 Gases blood o2 satur ation only direct makenzie Tracie Abreu MD Work Phone: Start: 10-20-2024 Measurement of parti al pressure of oxygen in blood Tracie Abreu MD Work Phone: Start: 10-20-2024 Oxygen measurement Flo Abreu MD Work Phone: Start: 10-20-2024 Oxygen saturation measurement Tracie Abreu MD Work Phone: Start: 10-19-2024 Legionella pneumophi la antigen assay Tracie Abreu MD Work Phone: Start: 10-19-2024 Nucleic acid assay Flo Abreu MD Work Phone: Start: 10-19-2024 Sars-cov-2 Tracie kirby MD Work Phone: Start: 10-19-2024 End: 10-19-2024 Streptococcus pneumoniae antigen assay Tracie Abreu MD Work Phone: Start: 10-19-2024 Viral antigen assay Vero Abreu MD Work Phone: Start: 10-19-2024 Bacterial nucleic acid assay Tracie Abreu MD Work Phone: Start: 10-19-2024 Urea nitrogen measur ement, urine Tracie Abreu MD Work Phone: Start: 10-19-2024 Calculation of inter national normalized ratio Tracie Abreu MD Work Phone: Start: 10-19-2024 CT of chest without contrast Tracie Abreu MD Work Phone: Start: 10-19-2024 Serum inorganic phos phate measurement Tracie Abreu MD Work Phone: Start: 10-19-2024 Plain chest X-ray Huey Abreu MD Work Phone: Start: 10-18-2024 Urine culture Tracie maritnez MD Work Phone: Start: 10-18-2024 Venous oxygen satura tion measurement Tracie Abreu MD Work Phone: Start: 10-18-2024 Assay of triglycerides Tracie Abreu MD Work Phone: Start: 10-18-2024 Total cholesterol:HD L ratio measurement Tracie Abreu MD Work Phone: Start: 10-18-2024 Triglycerides measurement Tracie Abreu MD Work Phone: Start: 10-17-2024 Assay of lactate Tracie Abreu MD Work Phone: Start: 10-17-2024 Lactic acid measurement Tracie Abreu MD Work Phone: Start: 10-17-2024 Prostate specific an tigen measurement Tracie Abreu MD Work Phone: Start: 10-17-2024 Carbon dioxide measu rement, partial pressure Tracie Abreu MD Work Phone: Start: 10-17-2024 Gases blood o2 satur ation only direct makenzie Tracie Abreu MD Work Phone: Start: 10-17-2024 Measurement of parti al pressure of oxygen in blood Tracie Abreu MD Work Phone: Start: 10-17-2024 Oxygen measurement Flo Abreu MD Work Phone: Start: 10-17-2024 Plain chest X-ray Huey Abreu MD Work Phone: Start: 10-17-2024 Estimated creatinine clearance Tracie Abreu MD Work Phone: Start: 10-17-2024 CT of head without contrast Tracie Abreu MD Work Phone: Start: 10-17-2024 Blood culture Tracie martinez MD Work Phone: Start: 08-21-2023 End: 08-21-2023 Mra head w/o contrst material Layne Manley MD Work Phone: Start: 01-05-2023 CT of head without contrast DO Madhavi Chaudhry Work Phone: Start: 2022 Measurement of occul t blood in stool specimen using immunoassay DO Madhavi Chaudhry Work Phone: Start: 11-22-2022 MRI of brain without contrast DO Madhavi Chaudhry Work Phone: Start: 11-22-2022 CT of head without contrast Start: 11-22-2022 Plain chest X-ray Start: 12-29-2021 Dup-scan xtr veins c omplete bilateral study Layne Manley MD Work Phone: Start: 12-27-2021 Echo transthorac r-t 2d w/wo m-mode rec comp Layne Manley MD Work Phone: Start: 12-27-2021 LVEF ECHO WITH AGITA MAILE SALINE CONTRAST Layne Manley MD Work Phone: Start: 12-24-2021 Ct head/brain w/o co ntrast material Layne Manley MD Work Phone: Start: 10-13-2021 Plain chest X-ray Start: 08-04-2021 Plain chest X-ray Start: 08-04-2021 CT of head without contrast Start: 06-08-2021 Myocardial spect mul tiple studies Willa Jay [employer]USS ASSEMBLER.COMMERCIAL UNDERWRITER Work Phone: Urine culture Viral antigen assay Plan of Treatment Date Care Activity Detail Author Start: 11-27-2027 RSV Vaccine (1 - 1-d ose 75+ series) RSV Vaccine (1 - 1-dose 75+ series) [facility] Start: 08-06-2025 End: 08-06-2025 ambulatory 08/06/2025 11:10 AM EDT Visit (SP) Office Hematology/Oncology [address] [place] [address] Edith Hart DO [address] [place] [address] 1YR OV* Hematology/Oncology Comment on above: 1YR OV* Start: 01-01-2025 ambulatory Facility:[facility] Start: 11-27-2024 ELINOR Elizabeth Start: 11-12-2024 End: 11-12-2024 Patient encounter procedure 11/12/2024 12:30 PM EDT Office Visit Neurology [address] [place] [address] Fallon Steiner PA-C [address] [place] [address] 4 month follow up, [address] Manley Neurology Comment on above: 4 month follow up, [address] Manley Start: 10-29-2024 Patient discharge [facility] Start: 10-29-2024 Care of hemodialysis equipment [facility] Start: 10-29-2024 Hemodialysis care [facility] Start: 10-29-2024 [facility] Start: 10-25-2024 Care of hemodialysis equipment [facility] Start: 10-25-2024 Hemodialysis care [facility] Start: 10-25-2024 End: 10-25-2024 [facility] Start: 10-24-2024 [facility] Start: 10-24-2024 [facility] Start: 10-23-2024 Care of hemodialysis equipment [facility] Start: 10-23-2024 Hemodialysis care [facility] Start: 10-23-2024 [facility] Start: 10-22-2024 Care of hemodialysis equipment [facility] Start: 10-22-2024 Hemodialysis care [facility] Start: 10-22-2024 [facility] Start: 10-21-2024 Referral to general surgeon [facility] Start: 10-20-2024 Speech therapy assessment [facility] Start: 10-19-2024 Referral to j2ee programmer [facility] Start: 10-19-2024 [facility] Start: 10-18-2024 Referral to service [facility] Start: 10-17-2024 Application of intermittent pneumatic compression device [facility] Start: 10-17-2024 Following clinical pathway protocol [facility] Start: 10-17-2024 Cardiac monitoring [facility] Start: 10-17-2024 Catheterization of vein [facility] Start: 10-17-2024 Consultation [facility] Start: 10-17-2024 Notification of physician [facility] Start: 10-17-2024 Referral for physica l therapy [facility] Start: 10-17-2024 Referral to occupati onal therapist [facility] Start: 10-17-2024 Referral to service [facility] Start: 10-17-2024 Vital signs measurements [facility] Start: 10-17-2024 End: 10-17-2024 [facility] Start: 10-17-2024 Admission procedure [facility] Start: 10-17-2024 Prostate specific an tigen measurement [facility] Start: 10-17-2024 Thyroid stimulating hormone measurement [facility] Start: 10-17-2024 Hospital admission, emergency, from emergency room, medical nature [facility] Start: 10-17-2024 End: 10-17-2024 [facility] Start: 10-17-2024 Bacteria identified in Blood by Culture Blood Culture [facility] Start: 10-07-2024 Influenza vaccination [facility] Start: 09-16-2024 End: 09-16-2024 ambulatory 09/16/2024 10:45 AM EDT OT/PT/Speech Visit [facility] [place] [place] [address] Mona Roach PT G20.C (ICD-10-CM) - Parkinsonism, unspecified Parkinsonism type (HCC) [facility] Comment on above: G20.C (ICD-10-CM) - Parkinsonism, unspecified Parkinsonism type (HCC) Start: 08-06-2024 End: 08-06-2024 Follow-up encounter 08/06/2024 4:00 PM EDT Visit (SP) Office Hematology/Oncology [address] [place] [address] Edith Hrat DO [address] [place] [address] follow up per Sindhu Hematology/Oncology Comment on above: follow up per Sindhu Start: 08-06-2024 End: 11-05-2024 C reactive protein [Mass/volume] in Serum or Plasma [facility] Comment on above: Expected: 08/06/2024 , Expires: 11/05/2024 Start: 08-06-2024 End: 11-05-2024 Coagulation factor VIII activity actual/normal in Platelet poor plasma by Coagulation assay [facility] Work Phone: Comment on above: Expected: 08/06/2024 , Expires: 11/05/2024 Start: 07-29-2024 End: 07-29-2024 ambulatory 07/29/2024 2:00 PM EDT OT/PT/Speech Visit [facility] [address] [place] [address] Mona Roach, PT Parkinsonism, unspecified Parkinsonism type (HCC) [G20.C] [facility] Comment on above: Parkinsonism, unspec ified Parkinsonism type (HCC) [G20.C] Start: 07-12-2024 End: 07-12-2024 Patient encounter procedure 07/12/2024 1:00 PM EDT Office Visit Neurology [address] [place] [id number] Layne Manley Jr., MD [address] [place], [place] [id number] PD, hx of DVT, aphasia, CVA. arm weakness- matheus 10/30 MQ increase sinemet 1.5 tablets TID, cont PT Neurology Comment on above: PD, hx of DVT, aphas ia, CVA. arm weakness- matheus 10/30 MQ increase sinemet 1.5 tablets TID, cont PT Start: 06-03-2024 End: 06-03-2024 Patient encounter procedure 06/03/2024 11:00 AM EDT Office Visit Neurology [address] [place] [address] Layne Manley Jr., MD [address] [place], [place] [id number] PD, hx of DVT, aphasia, CVA. arm weakness- matheus 12/05 MQ increase sinemet 1.5 tablets TID, cont PT Neurology Comment on above: PD, hx of DVT, aphas ia, CVA. arm weakness- matheus 12/05 MQ increase sinemet 1.5 tablets TID, cont PT Start: 03-08-2024 End: 03-08-2024 Patient encounter procedure 03/08/2024 10:40 AM EST Office Visit Neurology [address] [place] [address] Layne Manley Jr., MD [facility] [place], [place] [id number] follow up Neurology Comment on above: follow up Start: 02-07-2024 Advance Directive Discussion Advance Directive Discussion [facility] Start: 12-06-2023 End: 12-06-2023 Patient encounter procedure 12/06/2023 12:30 PM EDT Office Visit Neurology [address] [place], [place] [id number] Fallon Steiner PA-C [address] [place], [place] [phone] follow up 10/20/23 [facility] Neurology Comment on above: follow up 10/20/23 [facility] N [facility]heus Start: 10-20-2023 End: 10-20-2023 Patient encounter procedure 10/20/2023 10:40 AM EDT Office Visit Neurology [address] [place], [place] [address] Layne Manley Jr., MD [address] [id number] Follow up Hx stroke Neurology Comment on above: Follow up Hx stroke Start: 10-08-2023 Covid-19 Vaccine ( season) Covid-19 Vaccine ( season) [facility] Start: 10-08-2023 Covid-19 Vaccine ( season) Covid-19 Vaccine ( season) [facility] Start: 10-08-2023 Influenza vaccination [facility] Start: 09-25-2023 End: 09-25-2023 ambulatory 09/25/2023 3:50 PM EDT Visit (SP) Office Hematology/Oncology [address] [place] [id number] Edith Hart DO [address] [place] [id number] OV/LAB 09/12* Hematology/Oncology Comment on above: OV/LAB 09/12* Start: 09-12-2023 End: 12-12-2023 Coagulation factor VIII activity actual/normal in Platelet poor plasma by Coagulation assay FACTOR VIII:C ASSAY Lab Routine Elevated factor VIII level Expected: 09/12/2023, Expires: 12/12/2023 [facility] Work Phone: Comment on above: Expected: 09/12/2023 , Expires: 12/12/2023 Start: 08-21-2023 End: 08-21-2023 Patient encounter procedure Radiology Comment on above: Cerebral infarction, unspecified mechanism (HCC) [I63.9] Start: 08-21-2023 End: 08-21-2023 ambulatory 08/21/2023 2:00 PM EDT Results Only [facility] [address] [place] [address] LAB* [facility] Comment on above: LAB* Start: 08-07-2023 End: 11-06-2023 HYPERCOAG DIAG PNL HYPERCOAG DIAG PNL Lab Routine Recurrent strokes (HCC) Chronic deep vein thrombosis (DVT) of femoral vein of right lower extremity (HCC) Presence of IVC filter Expected: 08/07/2023, Expires: 11/06/2023 [facility] Work Phone: Comment on above: Expected: 08/07/2023 , Expires: 11/06/2023 Start: 08-07-2023 End: 08-07-2023 Visit (SP) Office 08/07/2023 11:10 AM EDT Visit (SP) Office Hematology/Oncology [address] [place] [address] Edith Hart DO [address] [place] [address] new patient/ dx: Recurrent strokes (HCC) [I63.9] eval for possible hypercoag disorder with pt having had multiple strokes in past 2-3 years. Hematology/Oncology Comment on above: new patient/ dx: Rec urrent strokes (HCC) [I63.9] eval for possible hypercoag disorder with pt having had multiple strokes in past 2-3 years. Start: 02-06-2023 Advance Directive Discussion Advance Directive Discussion [facility] Start: 02-06-2023 Behavioral Health Screening Behavioral Health Screening [facility] Start: 02-06-2023 Depression Assessment Depression Ass essment [facility] Start: 12-05-2022 Patient discharge [facility] Start: 12-01-2022 Referral to service [facility] Start: 11-28-2022 [facility] Start: 11-28-2022 Chart related administrative procedure [facility] Start: 11-25-2022 Following clinical pathway protocol [facility] Start: 11-24-2022 Recommendation to continue with treatment [facility] Start: 11-24-2022 Referral to service [facility] Start: 11-24-2022 Urinary bladder training [facility] Start: 11-24-2022 Admission procedure [facility] Start: 11-24-2022 Patient referral to dietitian [facility] Start: 11-24-2022 Referral to occupati onal therapist [facility] Start: 11-24-2022 Vital signs measurements [facility] Start: 11-24-2022 [facility] Start: 11-24-2022 Patient discharge [facility] Start: 11-24-2022 Speech therapy assessment [facility] Start: 11-23-2022 Admission procedure [facility] Start: 11-23-2022 Verification routine [facility] Start: 11-22-2022 Telepractice consultation [facility] Start: 11-22-2022 Speech therapy assessment [facility] Start: 11-22-2022 Application of intermittent pneumatic compression device [facility] Start: 11-22-2022 Ambulation without limitation [facility] Start: 11-22-2022 Assessment of risk o f venous thromboembolism [facility] Start: 11-22-2022 Cardiac monitoring [facility] Start: 11-22-2022 Catheterization of vein [facility] Start: 11-22-2022 Continuous pulse oximetry [facility] Start: 11-22-2022 Elevation of head of bed [facility] Start: 11-22-2022 Exercises [facility] Start: 11-22-[address] anned interventions [facility] Start: 11-22-2022 Insertion of cathete r into peripheral vein [facility] Start: 11-22-2022 Notification of physician [facility] Start: 11-22-2022 Oxygen therapy [facility] Start: 11-22-2022 Providing care accor ding to standard [facility] Start: 11-22-2022 Referral to occupati onal therapist [facility] Start: 11-22-2022 Referral to service [facility] Start: 11-22-2022 Tobacco use cessatio n education [facility] Start: 11-22-2022 [facility] Start: 11-22-2022 Vital signs measurements [facility] Start: 11-22-2022 Admission procedure [facility] Start: 11-22-2022 Following clinical pathway protocol [facility] Start: 11-22-2022 Hospital admission, emergency, from emergency room, medical nature [facility] Start: 11-22-2022 Oxygen therapy [facility] Start: 11-22-2022 End: 11-22-2022 [facility] Start: 10-07-2022 Covid-19 Vaccine ( season) Covid-19 Vaccine (2022- season) [facility] Start: 10-07-2022 Influenza vaccination [facility] Start: 04-02-2022 Hepatitis B surface antibody level LDL CHOLESTEROL [facility] Start: 02-06-2022 ADVANCE DIRECTIVE DISCUSSION ADVANCE DIRECTIVE DISCUSSION [facility] Start: 02-06-2022 DEPRESSION ASSESSMENT DEPRESSION ASS ESSMENT [facility] Start: 10-13-2021 End: 10-13-2021 [facility] Work Phone: Start: 10-07-2021 Influenza vaccination [facility] Start: 06-30-2021 Hemoglobin A1c measurement HbA1C [facility] Start: 06-30-2021 Hemoglobin A1c/Hemoglobin.total in Blood HBA1C [facility] Start: 06-11-2021 End: 06-11-2022 NM CARDIAC PERF STRESS/PHARM NM CARDIAC PERF STRESS/PHARM Radiology Routine Shortness of breath Expected: 06/11/2021, Expires: 06/11/2022 [facility] Work Phone: Comment on above: Expected: 06/11/2021 , Expires: 06/11/2022 Start: 05-26-2021 End: 05-12-2022 EXTENDED WEAR POWDERED METAL SUPERVISOR PATCH EXTENDED WEAR POWDERED METAL SUPERVISOR PATCH ECG Routine Shortness of breath Expected: 05/26/2021, Expires: 05/12/2022 [facility] Work Phone: Comment on above: Expected: 05/26/2021 , Expires: 05/12/2022 Start: 05-07-2021 Medicare Annual Well ness Visit Medicare Annual Wellness Visit [facility] Start: 02-06-2021 ADVANCE DIRECTIVE DISCUSSION ADVANCE DIRECTIVE DISCUSSION [facility] Start: 02-06-2021 DEPRESSION ASSESSMENT DEPRESSION ASS ESSMENT [facility] Start: 2017 PNEUMOVAX AGE 65 AND OVER WITH 5YR LOOKBACK (#1) PNEUMOVAX AGE 65 AND OVER WITH 5YR LOOKBACK (#1) [facility] Start: 2012 Hepatitis B Vaccine (1 of 3 - Risk 3-dose series) Hepatitis B Vaccine (1 of 3 - Risk 3-dose series) [facility] Start: 2012 RSV Vaccine (1 - 1-d ose 60+ series) RSV Vaccine (1 - 1-dose 60+ series) [facility] Start: 11-27-2007 PROSTATE CANCER SCRE ENING DISCUSSION PROSTATE CANCER SCREENING DISCUSSION [facility] Start: 2002 SHINGRIX VACCINE (1 of 2) FARMER GRIX VACCINE (1 of 2) [facility] Start: 1997 COLOGUARD (FIT-DNA) COLOGUARD (FIT-D NA) [facility] Start: 1997 Colonoscopy COLONOSCOPY [facility] Start: 1997 COLORECTAL CANCER SCREENING COLORECTAL CANCER SCREENING [facility] Start: [address] COLONOGRAPHY [facility] Start: 1997 FECAL OCCULT BLOOD FECAL OCCULT BLOO D [facility] Start: 1997 Screening for malign ant neoplasm of colon [facility] Start: 1997 SIGMOIDOSCOPY SIGMOIDOSCOPY [facility] Start: 11-27-1971 Pneumococcal Vaccine : 50+ (1 of 2 - PCV) Pneumococcal Vaccine: 50+ (1 of 2 - PCV) [facility] Start: 11-27-1971 Urine microalbumin profile [facility] Start: 1970 ANNUAL PCP TEAM ACID LOADER MARGUERITE DISEASE VISIT ANNUAL PCP TEAM CHRONIC DISEASE VISIT [facility] Start: 1970 Anxiety Screening Anxiety Screening [facility] Start: 1970 Depression Screening Depression Scre ening [facility] Start: 1970 HEPATITIS C SCREENING HEPATITIS C [facility] Start: 1970 Hepatitis C screening Hepatitis C [facility] Start: 1964 Adult depression screening assessment DEPRESSION SCREENING [facility] Start: 1962 3 comp foot exam completed DIABETIC FOOT EXAM [facility] Start: 1962 Diabetic foot examination Diabetic F oot Exam [facility] Start: 1962 Glaucoma screening Dilated Retinal E xam [facility] Start: 1962 Hepatitis B screening URINE ALBUMIN:CREATININE RATIO [facility] Start: 1962 Hepatitis C antibody , confirmatory test DILATED RETINAL EXAM [facility] Start: 1958 Pneumococcal Vaccine : 65+ (1 - PCV) Pneumococcal Vaccine: 65+ (1 - PCV) [facility] Start: 1958 Pneumococcal Vaccine : 65+ (1 of 2 - PCV) Pneumococcal Vaccine: 65+ (1 of 2 - PCV) [facility] Start: 1956 PNEUMOCOCCAL: 65+ (1 - PCV) PNEUMOCOCCAL: 65+ (1 - PCV) [facility] Start: 1955 COVID-19 VACCINE (#1) COVID-19 VACCI NE (#1) [facility] Start: 1955 COVID-19 VACCINE (1) [facility] Start: 05-27-1951 COVID-19 VACCINE (#1) COVID-19 VACCI NE (#1) [facility] Bacteria identified in Urine by Culture Urine Culture [facility] Work Phone: Bilirubin measuremen t, urine [facility] Coagulation factor V III activity actual/normal in Platelet poor plasma by Coagulation assay FACTOR VIII:C ASSAY Lab Routine Elevated factor VIII level 09/13/2023 11:10 AM EDT [facility] Creatine kinase [Enzymatic activity/volume] in Serum or Plasma [facility] End: 01-16-2023 CT BRAIN WO IVCON CT BRAIN WO IVCON Radiology Routine 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) 1 Occurrences starting 12/17/2021 until 01/16/2023 [facility] Work Phone: Comment on above: 1 Occurrences starti ng 12/17/2021 until 01/16/2023 End: 12-17-2022 ECHO WITH AGITATED SALINE CONTRAST ECHO WITH AGITATED SALINE CONTRAST Cardiology Routine 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) 1 Occurrences starting 12/17/2021 until 12/17/2022 [facility] Work Phone: Comment on above: 1 Occurrences starti ng 12/17/2021 until 12/17/2022 End: 06-08-2021 EXTENDED WEAR POWDERED METAL SUPERVISOR PATCH EXTENDED WEAR POWDERED METAL SUPERVISOR PATCH ECG Routine Shortness of breath 1 Occurrences starting 06/08/2021 until 06/08/2021 [facility] Work Phone: Comment on above: 1 Occurrences starti ng 06/08/2021 until 06/08/2021 Folate [Moles/volume ] in Serum or Plasma [facility] Hemoglobin [Presence ] in Urine [facility] Hemoglobin A1c/Hemoglobin.total in Blood [facility] Lactic acid measurement [facility] Measurement of keton es in urine using dipstick [facility] Microscopic urinalysis [facility] End: 08-15-2024 MRA Head vessels WO contrast MRA BRAIN WO IVCON Radiology Routine Cerebral infarction, unspecified mechanism (HCC) 1 Occurrences starting 07/17/2023 until 08/15/2024 [facility] Work Phone: Comment on above: 1 Occurrences starti ng 07/17/2023 until 08/15/2024 End: 08-15-2024 MRA Neck vessels WO contrast MRA CAROTID WO IVCON Radiology Routine Cerebral infarction, unspecified mechanism (HCC) 1 Occurrences starting 07/17/2023 until 08/15/2024 [facility] Comment on above: 1 Occurrences starti ng 07/17/2023 until 08/15/2024 OUTSIDE VENDOR CARDI AC OUTPATIENT EXTENDED RHYTHM RECORDING (WITHOUT TELEMETRY) OUTSIDE VENDOR CARDIAC OUTPATIENT EXTENDED RHYTHM RECORDING (WITHOUT TELEMETRY) Holter Routine Recurrent strokes (HCC) Ordered: 07/17/2023 [facility] Comment on above: Ordered: 07/17/2023 OUTSIDE VENDOR CARDI AC OUTPATIENT EXTENDED RHYTHM RECORDING (WITHOUT TELEMETRY) OUTSIDE VENDOR CARDIAC OUTPATIENT EXTENDED RHYTHM RECORDING (WITHOUT TELEMETRY) Holter Routine Recurrent strokes (HCC) Ordered: 08/17/2023 [facility] Work Phone: Comment on above: Ordered: 08/17/2023 [facility] Work Phone: Patient referral [facility] Work Phone: pH of Urine [facility] SARS-CoV-2 (COVID-19 ) RNA [Presence] in Respiratory specimen by ADELA with probe detection SELF CHECK COVDE Microbiology Routine Shortness of breath Ordered: 05/12/2021 [facility] Work Phone: Comment on above: Ordered: 05/12/2021 Specific gravity of Urine [facility] Troponin T.cardiac [Mass/volume] in Serum or Plasma by High sensitivity method [facility] Urine blood test [facility] Urine culture [facility] Urine dipstick for glucose [facility] Urine dipstick for leukocyte esterase [facility] Urine dipstick for nitrite [facility] Urine dipstick for protein [facility] Urine examination [facility] Urine microscopy: epithelial cells [facility] Urine Microscopy: wh ite cells [facility] Urobilinogen [Presen ce] in Urine [facility] End: 12-17-2022 US LEG VEIN DVT KRUNAL VAS LAB US LEG VEIN DVT KRUNAL VAS LAB Vascular Lab Routine Deep vein thrombosis (DVT) of popliteal vein of right lower extremity, unspecified chronicity (HCC) 1 Occurrences starting 12/17/2021 until 12/17/2022 [facility] Work Phone: Comment on above: 1 Occurrences starti ng 12/17/2021 until 12/17/2022 [facility] Payers Date Payer Category Payer Self-pay [id number] 2021 Private Health Insurance [facility] AARP SUPPLEMENT [id number] 2021-Present [phone] [address] [place] [address] Indemnity [id number] 2021 Private Health Insurance [id number] 2021 Unknown [id number] 2017 Medicare MEDICARE MEDICAR E A AND B [id number] 2017-Present [phone] [place] [address] Medicare [id number] 2017 Medicare [id number] [id number]. [id number] 2017 Medicare [id number] 2017 Unknown MMO MMO SUPERMED PLUS [id number] 2017-Present [phone] [address] [place] [address] PPO [id number]. [id number] Private Health Insurance [id number] Unknown [id number] Unknown [id number] Unknown [id number]. 1.13.159.2. 7.3.640955.315 Unknown [facility] [id number] Unknown [id number] 2.16840.1.080920.3.579.2. 462 Unknown [id number] 2.840.1.443271.3.579.2. 462 Unknown [id number] 2.840.1.577113.3.579.2. 462 Unknown [id number] 2.16840.1.041646.3.579.2. 462 Unknown [id number] 2.16840.1.876293.3.579.2. 462 Unknown [id number] 2.16840.1.704886.3.579.2. 462 Unknown [id number] 2.16840.1.774202.3.579.2. 462 Unknown [id number] 2.16840.1.452071.3.579.2. 462 Unknown [id number] 2.16.840.1.834045.3.579.2. 462 Unknown [id number] 2.16.840.1.289895.3.579.2. 462 Unknown [id number] 2.16.840.1.079196.3.579.2. 462 Unknown [id number] 2.16.840.1.898849.3.579.2. 462 Unknown [id number] 2.16.840.1.791137.3.579.2. 462 Unknown [id number] 2.16.840.1.145555.3.579.2. 462 Unknown [id number] 2.16.840.1.163596.3.579.2. 462 Unknown [id number] 2.16.840.1.888535.3.579.2. 462 Unknown [id number] 2.16.840.1.116207.3.579.2. 462 Unknown [id number] 2.16.840.1.291807.3.579.2. 462 Unknown [id number] 2.16.840.1.590046.3.579.2. 462 Unknown [id number] 2.16.840.1.457033.3.579.2. 462 Unknown [id number] 2.16.840.1.651575.3.579.2. 462 Unknown [id number] 2.16.840.1.080709.3.579.2. 462 Unknown [id number] 2.16.840.1.606151.3.579.2. 462 Unknown [id number] 2.16.840.1.242241.3.579.2. 462 Unknown [id number] 2.16.840.1.627469.3.579.2. 462 Unknown [id number] 2.16.840.1.283105.3.579.2. 462 Unknown [id number] 2.16.840.1.690963.3.579.2. 462 Unknown [id number] 2.16.840.1.165249.3.579.2. 462 Unknown [id number] 2.16.840.1.112810.3.579.2. 462 Unknown [id number] 2.16.840.1.327871.3.579.2. 462 Unknown [id number] 2.16.840.1.062395.3.579.2. 462 Unknown [id number] 2.16.840.1.984361.3.579.2. 462 Unknown [id number] 2.16.840.1.447698.3.579.2. 462 Unknown [id number] 2.16.840.1.499425.3.579.2. 462 Unknown [id number] 2.16.840.1.789093.3.579.2. 462 Unknown [id number] 2.16.840.1.013256.3.579.2. 462 Unknown [id number] 2.16.840.1.522565.3.579.2. 462 Social History Date Type Detail Facility Start: 08-04-2021 End: 12-05-2022 Tobacco smoking status COIS Tobacco smoking consumption unknown [facility] Start: 1950 Sex Assigned At Not on file C [facility] Start: 05-12-2021 End: 11-22-2024 Tobacco smoking status COIS Never smoked tobacco [facility] Start: 05-12-2021 End: 01-13-2022 Tobacco use and exposure Smokeless tobacco non-user [facility] Start: 05-12-2021 End: 08-06-2024 Alcohol intake Lifetime non-drinker (finding) [facility] Start: 05-12-2021 History SDOH Alcohol Frequency 1 [facility] Start: 05-02-2021 End: 12-17-2021 Exposure to SARS-CoV-2 (event) Not sure [facility] Start: 1950 Sex Assigned At Male [facility] Start: 12-17-2021 End: 08-06-2024 History of Social function [facility] Start: 12-17-2021 End: 08-06-2024 Tobacco use panel [facility] Start: 12-05-2022 Non-smoker [facility] Start: 05-04-2024 Sex Male (finding) [facility] Start: 01-08-2012 Sex Male [facility] Medical Equipment Procedure Code Equipment Code Equipment Origin al Text Equipment Identifier Dates Insertion, catheter, hemodialysis FDA Start: 10-29-2024 Insertion, catheter, hemodialysis FDA Start: 10-29-2024 Insertion, catheter, hemodialysis FDA Start: 10-29-2024 Insertion, catheter, hemodialysis FDA Start: 10-29-2024 Insertion, catheter, hemodialysis FDA Start: 10-29-2024 Insertion, catheter, hemodialysis FDA Start: 10-29-2024 Insertion, catheter, hemodialysis FDA Start: 10-29-2024 Insertion, catheter, hemodialysis FDA Start: 10-29-2024 Insertion, catheter, hemodialysis FDA Start: 10-29-2024 Goals Date Patient Goal Desired Activity /State Functional Status Date Assessment Result Facility 10-29-2024 Functional status [facility] Work Phone: 10-27-2024 Functional status [facility] Work Phone: 12-05-2022 Functional status Chair [facility] Work Phone: 11-24-2022 Functional status Patient Activi ty Dangle Feet;Chair [facility] Work Phone: 11-24-2022 Functional status Standby Assist [facility] Work Phone: Mental Status Date Assessment Result Facility 10-29-2024 Cognitive function Voice/Name [facility] Work Phone: 12-05-2022 Cognitive function Voice/Name [facility] Work Phone: 11-24-2022 Cognitive function Voice/Name [facility] Work Phone: 11-22-2022 Cognitive function Level Of Cons ciousness Awake;Alert;Appropriate [facility] Work Phone: 10-13-2021 Cognitive function Voice/Name [facility] Work Phone: 08-04-2021 Cognitive function Level Of Cons ciousness Awake;Alert;Inappropriate [facility] Work Phone: Clinical Notes 05-06-2021 to 10-29-2024 Note Date & Type Note Facility 10-29-2024 Consult note Note Date/Time October 29, 2024 5:04pm [facility] Medical Records Department [address] [place] [address] Anesthesia Postop Eval II 10/29/24 1504 MR#: [id number] Acct: [id number] Name: GUSTAVO PATTON Rep #:[id number] : 1950 73 From: Shanell harrison CRNA PCP: Dr. Tracie Abreu MD Status:ADM IN Y Race: C Location: [place] [address] 0-1 Anesthesia Postop Eval I Sum Postop Eval Completion status Anesthesia document: Postop Eval 1 completed: Yes Anesthesia Postop Eval I Summary Anesthesia Postop Eval I Summary: Anesthesia Postop Eval I: Assessment Summary Airway patent Yes 10/29/24 10:07 SENIOR ASSISTANT MANAGER.TNES Spontaneous unlabored Yes 10/29/24 10:07 SENIOR ASSISTANT MANAGER.TNES respirations Mental status nausea No 10/29/24 10:07 SENIOR ASSISTANT MANAGER.TNES Vomiting No 10/29/24 10:07 SENIOR ASSISTANT MANAGER.TNES Anesthesia Postop Eval I: Fluid Summary Crystalloid volume administer 200 10/29/24 10:07 SENIOR ASSISTANT MANAGER.TNES (ml) Colloids volume administered ( ml) Blood Product volume administered (ml) Total IV fluid infused 200 10/29/24 10:07 SENIOR ASSISTANT MANAGER.TNES Anesthesia Postop Eval I: Summary Notes Anesthesia Complication No 10/29/24 10:07 SENIOR ASSISTANT MANAGER.TNES Anesthesia Complication Comment: Post-operative progress note Anesthesia: Postop Eval II Evaluation Mental status: Awake and Calm Pain Level: 0 nausea: No Vomiting: No Complications Anesthesia Complication: No 10/29/24 1504 <Electronically signed by Shanell maria SENIOR ASSISTANT MANAGER> Date _ Shanell Abdullahiigner Signature: Date CC: ~ Signed [facility] Work Phone: 1(803) 760-522609-23-2025 Consult note Author Concha Silveira [facility] Note Date/Time October 29, 2024 5:04pm [facility] Medical Records Department [address] [place] [address] Counseling Note - Pharmacy 10/29/24 1419 MR#: [id number] Acct: [id number] Name: GUSTAVO PATTON Rep #:[id number] : 1950 73 From: Concha Silveira PCP: Dr. Tracie Abreu MD Status:ADM IN Location: [place] [address] Pharmacy [place] Med Reconciliation Pharmacy Service has performed discharge medication reconciliation for this patient. The patient's discharge medication list was reviewed for discrepancies and discrepancies were resolved. Medications at Discharge Home Medications multivitamin 1 cap PO DAILY supplement 12/26/21 atorvastatin 40 mg tablet 40 mg PO QHS #30 tabs 12/05/22 metoprolol succinate 25 mg tablet,extended release 24 hr 25 mg PO DAILY #30 tabs1 loratadine 10 mg tablet (Allergy Relief (loratadine)) 10 mg PO DAILY 01/20/23 sennosides 8.6 mg tablet (Senna Lax) 8.6 mg PO QHS 01/20/23 pantoprazole 20 mg tablet,delayed release 20 mg PO DAILY 05/23/23 apixaban 5 mg tablet (Eliquis) 5 mg PO BID 11/09/23 aspirin 81 mg chewable tablet 81 mg PO QDAY 11/09/23 carbidopa 25 mg-levodopa 100 mg tablet 2 tab PO TID 11/09/23 ipratropium bromide 21 mcg (0.03 %) nasal spray 2 spray intranasal TID PRN nasalcongestion 11/09/23 insulin lispro 100 unit/mL subcutaneous pen (Humalog KwikPen (U-100) Insulin) See Protocol subcut ACHS #0 mL 10/29/24 tamsulosin 0.4 mg capsule 0.4 mg PO DAILY@1730 #0 caps 10/29/24 10/29/24 1419 <Electronically signed by Concha Silveira> Date _ Concha Silveira Cosigner Signature (if applicable): Date CC: ~ Signed [facility] Work Phone: 1(197) 911-232309-23-2025 Discharge summary Author Javon [facility] Note Date/Time October 29, 2024 1:37pm [facility] Medical Records Department [address] [place] [address] Discharge Summary 10/29/24 1333 MR#: [id number] Acct: [id number] Name: GUSTAVO PATTON Rep #:[id number] : 1950 73 From: Javon Baldwin DO PCP: Dr. Traice Abreu MD Status:ADM IN Location: [place] [address] Providers Date of Admission: 10/17/24 Primary Care Physician: Tracie Abreu MD Consultations 10/17/24 21:42 Consult: Urology Routine Consulting Provider: Jose R Rg Reason for Consult: Hematuria with Urinary Retention. EMERGENT Consult: No MD Notified: Yes Date Notified: 10/17/24 Time Notified: 21:05 Method of Notification: ED Physician Initiated 10/19/24 07:46 Consult: Nephrology Routine Consulting Provider: Rondey Chavez Reason for Consult: CHRISTY EMERGENT Consult: No Notified: Yes Date Notified: 10/19/24 Time Notified: 07:52 Method of Notification: Answering Service 10/21/24 08:10 Consult: General Surgery Routine Consulting Provider: Juan Palacios Reason for Consult: need for temporary dialysis catheter EMERGENT Consult: No MD Notified: Yes Date Notified: 10/21/24 Time Notified: 08:10 Method of Notification: Text Reason For Visit: SIRS, CHRISTY, RHABOMYOLYSIS AND HEMATURIA Diagnosis Discharge Diagnosis (1) High anion gap metabolic acidosis: Status: Acute Code(s): E87.29 - Other acidosis (2) Urethral stricture: Status: Acute Code(s): N35.919 - Unspecified urethral stricture, male, unspecified site (3) Urinary retention: Status: Acute Code(s): R33.9 - Retention of urine, unspecified (4) Fall: Status: Acute Code(s): W19.XXXA - Unspecified fall, initial encounter Qualifiers: Encounter type: initial encounter Qualified Code(s): W19.XXXA - Unspecified fall, initial encounter (5) Rhabdomyolysis: Status: Acute Code(s): M62.82 - Rhabdomyolysis Qualifiers: Rhabdomyolysis type: non-traumatic Qualified Code(s): M62.82 - Rhabdomyolysis Plan Sepsis Present on admission Secondary to pneumonia acute hypoxic respiratory * RULED OUT Pneumonia * pneumococcal v aspiration. With associated pleural effusion. * received pip/tazo from 10/17-. Starting on 10/26 has been on pip/tazo and vancomycin. Given infectious workup has been negative, will discontinue antibiotics. CHRISTY * had dialysis on 10/22 and . * suspect due to ischemic ATN from being down for extended period of time and rhabdomyolysis * non-oliguric, though creatinine trending up. * tunnelled dialysis catheter placed 10/29. Dialysis today. Then outpatient dialysis. Rhabdomyolysis: * resolved. * traumatic, 2/2 to being down for extended period. Hematuria due to urethral stricture * Had urinary retention and urology had to be consulted to place a L[facility]in as he could not be placed in the ED. Having some mild hematuria but is clearing up. Likely traumatic as a result of passing the Larkin. * To leave Larkin in situ on discharge and to follow-up with urology on outpatient basis. Chronic medical conditions: * Type 2 diabetes mellitus: A1c is 8.1. On insulin sliding scale. Accuhecks ACHS. Usually on metformin at home which is currently on hold. * History of DVT: Has IVC filter in situ. on heparin drip. 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 Has resultant chronic disability from this. Lives alone currently. Family looking at getting him into assisted living. On aspirin. PT OT on board. * Benign essential hypertension: On metoprolol. Lisinopril held due to CHRISTY on CKD * Hyperlipidemia: On statin * Heart failure with reduced ejection fraction: Not in exacerbation but is fluid overloaded due to CHRISTY. Dialysis helping with fluid removal * Parkinson's disease with recent fall: PT OT on board. On levodopa carbidopa. DVT prophylaxis: on heparin drip. Will hold tonight at midnight in anticipationof limited dialysis catheter insertion depending on wbc Disposition: to [facility]. Medications at Discharge Home Medications multivitamin 1 cap PO DAILY supplement 12/26/21 atorvastatin 40 mg tablet 40 mg PO QHS #30 tabs 12/05/22 metoprolol succinate 25 mg tablet,extended release 24 hr 25 mg PO DAILY #30 tabs1 loratadine 10 mg tablet (Allergy Relief (loratadine)) 10 mg PO DAILY 01/20/23 sennosides 8.6 mg tablet (Senna Lax) 8.6 mg PO QHS 01/20/23 pantoprazole 20 mg tablet,delayed release 20 mg PO DAILY 05/23/23 apixaban 5 mg tablet (Eliquis) 5 mg PO BID 11/09/23 aspirin 81 mg chewable tablet 81 mg PO QDAY 11/09/23 carbidopa 25 mg-levodopa 100 mg tablet 2 tab PO TID 11/09/23 ipratropium bromide 21 mcg (0.03 %) nasal spray 2 spray intranasal TID PRN nasalcongestion 11/09/23 insulin lispro 100 unit/mL subcutaneous pen (Humalog KwikPen (U-100) Insulin) See Protocol subcut ACHS #0 mL 10/29/24 tamsulosin 0.4 mg capsule 0.4 mg PO DAILY@1730 #0 caps 10/29/24 Hospital Course Operations - (Tunneled dialysis catheter) Procedures 2-D Echocardiogram, Central line placement and Dialysis Summary of Care Provided Hospital Course: Greater than 30-minute spent on discharge This is a 73-year-old male with history of Parkinson disease found down at home. Presented with sepsis, rhabdomyolysis, CHRISTY and pneumonia. Patient was started on broad-spectrum antibiotics but his kidney function got worse. Patient was nonoliguric. Patient had a temporary dialysis catheter placed and did have hemodialysis and the plan is for her to have a tunneled dialysis catheter but that is held given his leukocytosis and concern for underlying infection. Send patient was started back up on antibiotics with pip-tazo and vancomycin. Infectious workup was negative the patient underwent tunneled dialysis catheter on the and has been reinitiated on dialysis will continue with hemodialysisas outpatient. Is CHRISTY may have been due to ischemic ATN but also his rhabdomyolysis. He has been having good urine output though his kidney function with his creatinine continues to climb upwards. Patient was having rhabdomyolysis when he presented and so his statin was held that will be resumed upon discharge. Weight / BMI Weight Weight: 88.4 kg Body Mass Index (BMI) 27.8 ABG / Lab / Microbiology Data 10/29/24 04:15 10/29/24 04:15 Laboratory: Laboratory Results - last 24 hr 10/28/24 16:20: POC Glucose 191 H 10/28/24 21:47: POC Glucose 150 H 10/29/24 04:15: WBC 13.7 H, RBC 2.77 L, Hgb 8.5 L, Hct 25.3 L, MCV 91.3, MCH 30.7, MCHC 33.6, RDW Std Deviation 46.7 H, RDW Coeff of Sara 14.1, Plt Count 438,MPV 11.3, Immature Gran % (Auto) 1.200 H, Neut % (Auto) 79.7 H, Lymph % (Auto) 8.7 L, Scurry % (Auto) 6.1, Eos % (Auto) 3.5, Baso % (Auto) 0.8, Absolute Neuts (auto) 10.9 H, Absolute Lymphs (auto) 1.19, Nucleated RBC % 0, APTT 28.4, Tgbxed108, Potassium 4.0, Chloride 107, Carbon Dioxide 19.4 L, Anion Gap 16 H, BUN 57 H, Creatinine 7.99 H*, Estim Creat Clear Calc 9.49 L*, Est GFR (MDRD) Non-Af 7 L, BUN/Creatinine Ratio 7.1 L, Glucose 143 H, Calcium 8.7 10/29/24 05:59: POC Glucose 130 H 10/29/24 11:05: POC Glucose 121 H Microbiology: Microbiology 10/26/24 08:05 Urine Catheter - [facility] Urine Culture - Final Culture exhibits no growth. 10/25/24 10:03 Blood Culture (Wb) - Left Wrist Blood Culture - Preliminary No growth in 48 hours. 10/25/24 10:00 Blood Culture (Wb) - Left Hand Blood Culture - Preliminary No growth in 48 hours. 10/17/24 18:30 Blood Culture (Wb) - Anticubital Right Blood Culture - Final No growth in 5 days. 10/17/24 18:34 Blood Culture (Wb) - Anticubital Left Blood Culture - Final No growth in 5 days. 10/21/24 09:23 Stool Enteric Bacteriology - Final 10/21/24 09:23 Stool Clostridioides difficile (PCR) - Final 10/18/24 11:58 Urine Catheter - [facility] Urine Culture - Final Culture exhibits no growth. 10/19/24 10:15 Urine Catheter - Catheter Legionella Antigen - Final 10/19/24 10:15 Urine Catheter - Catheter Streptococcus pneumoniae Antigen (M- Final 10/19/24 17:55 Mucosa - Nasopharyngeal Respiratory Panel (PCR) - Final 10/19/24 18:11 Mucosa - Nose Coronavirus COVID-19 PCR - Final Radiography Diagnostic Testing: Radiology Impression Chest X-Ray 10/29/24 10:06 IMPRESSION: The tip of the right-sided double-lumen catheter is in the right atrium. Mild bibasilar atelectasis. Reading Location: [place] [address] D/C Instructions DC O2, CPAP, BIPAP Needs Home O2 Discharge instructions: Yes Type of respiratory needs?: Oxygen Oxygen frequency: Continuous Continuous oxygen liters per minute: 3 DC home with Oxygen: Yes Home O2 MD Review: I have reviewed the oxygen testing, and the patient qualifies for home oxygen equipment and portability. The patient is mobile in the home and the community. Meaningful Use Info Meaningful Use Meaningful Use Diagnoses (Choose all that apply): None applicable Discharge Plan Admission Admit Date/Time: 10/17/24 20:58 Primary Reason for Your Visit: pneumonia. sepsis. CHRISTY. Attending Provider: Javon Baldwin Primary Care Provider: Tracie Abreu Consulting Providers: Jose R Rg; Kenrick Ng; Rodney Chavez; Nathalia Garcia; Juan Palacios; Rosmery Lake Instructions Additional Instructions / Restrictions: Continue with hemodialysis per nephrology's routine. Discharge Orders/Prescriptions Prescriptions: New tamsulosin 0.4 mg Capsule 0.4 mg PO DAILY@1730 Qty: 0 0RF insulin lispro [Humalog KwikPen Insulin] 100 unit/mL Insulin Pen See Protocol subcut ACHS Qty: 0 0RF Protocol: 1. Sliding Scale Insulin Low Dosing Condition: 150-224 mg/dl = 1 unit Condition: 225-299 mg/dl = 2 units Condition: 300-374 mg/dl = 3 units Condition: 375-449 mg/dl = 4 units Condition: Greater than 449 call physician Protocol Text: Suggested for: - Patients on Total Daily Insulin Dose of 15-27 units - Thin, elderly, renal patients LOW DOSING ALGORITHM Continued loratadine [Allergy Relief (loratadine)] 10 mg tablet 10 mg PO DAILY sennosides [Senna Lax] 8.6 mg tablet 8.6 mg PO QHS aspirin 81 mg tablet,chewable 81 mg PO QDAY ipratropium bromide 21 mcg (0.03 %) spray,non-aerosol 2 spray intranasal TID PRN (Reason: nasal congestion) Rx Instructions: 2 sprays each nostril twice a day as need for allergies. Eliquis 5 mg tablet 5 mg PO BID carbidopa-levodopa 25-100 mg tablet 2 tab PO TID Rx Instructions: 2 tabs pantoprazole 20 mg Tablet,Delayed Release (Dr/Ec) 20 mg PO DAILY multivitamin Capsule 1 cap PO DAILY atorvastatin 40 mg Tablet 40 mg PO QHS Qty: 30 0RF metoprolol succinate 25 mg Tablet Extended Release 24 Hr 25 mg PO DAILY Qty: 30 0RF Discontinued metformin 500 mg Tablet 500 mg PO DAILY lisinopril 2.5 mg Tablet 2.5 mg PO DAILY Qty: 30 0RF Referrals / Follow Up: Tracie Abreu MD [Primary Care Provider, Family Practice] - Within 2 Weeks Disposition Disposition (needs filled in before D/C Order can be placed): [facility]irement Facility Charges/Coding Visit Charges Inpatient E&M: 09482 Disch Hosp >30min 10/29/24 1337 <Electronically signed by Javon Baldwin DO> Cosigner Signature (if applicable): CC: Dr. Tracie Abreu MD; Dr. Javon Baldwin DO~ Signed [facility] Work Phone: [phone] 421-555809-23-2025 Discharge summary Author Javon Baldwin [facility] Note Date/Time October 29, 2024 1:33pm [facility] Medical Records Department [address] [place] [address] Transfer to [facility] Care MR#: [id number] Acct: [id number] Name: GUSTAVO PATTON Rep #:[id number] : 1950 73 From: Javon Baldwin DO PCP: Dr. Tracie Abreu MD Status:ADM IN Certification of patient admission REQUIRED AT TIME OF ADMISSION. I CERTIFY THAT POST-HOSPITAL ECF SERVICES ARE REQUIRED TO BE GIVEN ON AN IN-PATIENT BASIS BECAUSE OF THE ABOVE NAMED PATIENT'S NEED FOR INTERMEDIATE CARE ON A CONTINUING BASIS FOR THE CONDITION(S) FOR WHICH HE/SHE WAS RECEIVING IN-PATIENT HOSPITAL SERVICES PRIOR TO HIS/HER TRANSFER TO THE F. 10/29/24 1333<Electronically signed by Javon Baldwin DO> Diet Diet Order/Speech Therapy: INPATIENT Hospital Diet / Speech Therapy Order(s) 10/29/24 00:01 NPO [Diet: Nothing Per Oral] Dietary Modifications:: Sodium Restricted Potassium Restricted Speech Therapy Comments: Direct supervision, ORAL CARE before/after meal, sips 1 at a time DC O2, CPAP, BIPAP needs Home O2 Discharge instructions: Yes Type of respiratory needs?: Oxygen Oxygen frequency: Continuous Continuous oxygen liters per minute: 3 Wound(s) Nose: Wound Type: Abrasion Right Clavicle: Wound Type: Temp dialysis cath removal site RT CHEST: Wound Type: Surgical Incision RT BASE OF NECK: Wound Type: Surgical Incision Therapies Weight Bearing: Full weight bearing Physical Therapy: Eval and Treat Occupational Therapy: Eval and Treat Problem/Diagnosis (1) High anion gap metabolic acidosis: Status: Acute Code(s): E87.29 - Other acidosis (2) Urethral stricture: Status: Acute Code(s): N35.919 - Unspecified urethral stricture, male, unspecified site (3) Urinary retention: Status: Acute Code(s): R33.9 - Retention of urine, unspecified (4) Fall: Status: Acute Code(s): W19.XXXA - Unspecified fall, initial encounter (5) Rhabdomyolysis: Status: Acute Code(s): M62.82 - Rhabdomyolysis Plan Acute hypoxic respiratory * RULED OUT Pneumonia * pneumococcal v aspiration. With associated pleural effusion. * received pip/tazo from 10/17-. Starting on 10/26 has been on pip/tazo and vancomycin CHRISTY * had dialysis on 10/22 and . * suspect due to ischemic ATN from being down for extended period of time and rhabdomyolysis * non-oliguric, though creatinine trending up. * gtunnel dialysis catheter tentatively for 10/29. Dialysis today. Then outpatient dialysis. Rhabdomyolysis: * resolved. * traumatic, 2/ to being down for extended period. Hematuria due to urethral stricture * Had urinary retention and urology had to be consulted to place a Larkin as he could not be placed in the ED. Having some mild hematuria but is clearing up. Likely traumatic as a result of passing the Larkin. * To leave Larkin in situ on discharge and to follow-up with urology on outpatient basis. Chronic medical conditions: * Type 2 diabetes mellitus: A1c is 8.1. On insulin sliding scale. Accuhecks ACHS. Usually on metformin at home which is currently on hold. * History of DVT: Has IVC filter in situ. on heparin drip. 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 Has resultant chronic disability from this. Lives alone currently. Family looking at getting him into assisted living. On aspirin. PT OT on board. * Benign essential hypertension: On metoprolol. Lisinopril held due to CHRISTY on CKD * Hyperlipidemia: On statin * Heart failure with reduced ejection fraction: Not in exacerbation but is fluid overloaded due to CHRISTY. Dialysis helping with fluid removal * Parkinson's disease with recent fall: PT OT on board. On levodopa carbidopa. DVT prophylaxis: on heparin drip. Will hold tonight at midnight in anticipationof limited dialysis catheter insertion depending on wbc Disposition: to [facility]. Allergies/Procedures Done in Hospital Allergies No Known Allergies Allergy (Verified 10/17/24 22:17) Procedures: Dialysis Type of Care/Length of Stay Estimated LOS: Convalescent Care Less Than 30 days Type of Care Needed: Skilled Rehab Potential: Fair Prognosis: Fair Additional Orders/Day of Discharge Day of Discharge: 10/29/24 Dietary and Speech Recommendations Dietitian Recommendations/Changes: Adjust to consistent carbohydrate diet with sodium restriction per [employer] recommendations. Will monitor weight, labs, and make adjustments to pt's diet as needed. Discharge Plan Admission Admit Date/Time: 10/17/24 20:58 Primary Reason for Your Visit: pneumonia. sepsis. CHRISTY. Attending Provider: Javon Baldwin Primary Care Provider: Tracie Abreu Consulting Providers: Jose R Rg; Kenrick Ng; Rodney Chavez; Nathalia Garcia; Juan Palacios; Rosmery Lake Instructions Additional Instructions / Restrictions: Continue with hemodialysis per nephrology's routine. Discharge Orders/Prescriptions Prescriptions: New tamsulosin 0.4 mg Capsule 0.4 mg PO DAILY@1730 Qty: 0 0RF insulin lispro [Humalog KwikPen Insulin] 100 unit/mL Insulin Pen See Protocol subcut ACHS Qty: 0 0RF Protocol: 1. Sliding Scale Insulin Low Dosing Condition: 150-224 mg/dl = 1 unit Condition: 225-299 mg/dl = 2 units Condition: 300-374 mg/dl = 3 units Condition: 375-449 mg/dl = 4 units Condition: Greater than 449 call physician Protocol Text: Suggested for: - Patients on Total Daily Insulin Dose of 15-27 units - Thin, elderly, renal patients LOW DOSING ALGORITHM Continued loratadine [Allergy Relief (loratadine)] 10 mg tablet 10 mg PO DAILY sennosides [Senna Lax] 8.6 mg tablet 8.6 mg PO QHS aspirin 81 mg tablet,chewable 81 mg PO QDAY ipratropium bromide 21 mcg (0.03 %) spray,non-aerosol 2 spray intranasal TID PRN (Reason: nasal congestion) Rx Instructions: 2 sprays each nostril twice a day as need for allergies. Eliquis 5 mg tablet 5 mg PO BID carbidopa-levodopa 25-100 mg tablet 2 tab PO TID Rx Instructions: 2 tabs pantoprazole 20 mg Tablet,Delayed Release (Dr/Ec) 20 mg PO DAILY multivitamin Capsule 1 cap PO DAILY atorvastatin 40 mg Tablet 40 mg PO QHS Qty: 30 0RF metoprolol succinate 25 mg Tablet Extended Release 24 Hr 25 mg PO DAILY Qty: 30 0RF Discontinued metformin 500 mg Tablet 500 mg PO DAILY lisinopril 2.5 mg Tablet 2.5 mg PO DAILY Qty: 30 0RF Referrals / Follow Up: Tracie Abreu MD [Primary Care Provider, Family Practice] - Within 2 Weeks Disposition Disposition (needs filled in before D/C Order can be placed): Retirement Facility (4) Fall Qualifiers: Encounter type: initial encounter Qualified Code(s): W19.XXXA - Unspecified fall, initial encounter (5) Rhabdomyolysis Qualifiers: Rhabdomyolysis type: non-traumatic Qualified Code(s): M62.82 - Rhabdomyolysis 10/29/24 1333 <Electronically signed by Javon Baldwin DO> Cosigner Signature (if applicable): CC: Dr. Tracie Abreu MD; Dr. Kenrick Ng DO; Dr. Rodney Chavez MD; Dr. Jose R Rg MD; Dr. Nathalia Garcia DO; Dr. Rosmery Lake MD; Dr. Juan Palacios MD ~ [facility] Work Phone: [phone] Progress note Author Javon [facility] Note Date/Time October 29, 2024 1:25pm [facility] Medical Records Department [facility] [place] [address] Progress Note - Hospitalist 10/29/24819 MR#: [id number] Acct: [id number] Name: GUSTAVO PATTON Rep #:[id number] : 1950 73 From: Javon Baldiwn DO PCP: Dr. Tracie Abreu MD Status:ADM IN Location: [place] [address]- Reason for Visit Chief Complaint: Fall at Home. Subjective Subjective Tunnelled dialysis catheter placed. Seen on HD. Denies complaints. Objective Data Objective Data Vital Signs: Vital Signs Temp Pulse Resp BP Pulse Ox O2 Del Method O2 Flow Rate 36.6 C 99 18 132/74 H 96 Nasal Cannula 3 10/29/24 08:00 10/29/24 08:00 10/29/24 08:00 10/29/24 08:00 10/29/24 08:00 10/29/24 08:00 10/29/24 08:00 Oxygen Flow Rate (L/min) 3 Oxygen Delivery Method Nasal Cannula Weight: 88.4 kg Body Mass Index (BMI) 27.9 Intake & Output: Intake and Output for Last 24 Hours 10/27/24 10/28/24 10/29/24 23:59 23:59 23:59 Intake Total 1770.00 / 1870.00 600 / 816.48 266.48 / 266.48 Output Total 1200 / 1550 1550 / 2150 1550 / 1550 Balance 570.00 / 320.00 -950 / -1333.52 -1283.52 / -1283.52 Lab / Micro Data 10/29/24 04:15 10/29/24 04:15 Labs: Laboratory Results - last 24 hr 10/28/24 11:22: POC Glucose 218 H 10/28/24 16:20: POC Glucose 191 H 10/28/24 21:47: POC Glucose 150 H 10/29/24 04:15: WBC 13.7 H, RBC 2.77 L, Hgb 8.5 L, Hct 25.3 L, MCV 91.3, MCH 30.7, MCHC 33.6, RDW Std Deviation 46.7 H, RDW Coeff of Sara 14.1, Plt Count 438,MPV 11.3, Immature Gran % (Auto) 1.200 H, Neut % (Auto) 79.7 H, Lymph % (Auto) 8.7 L, Scurry % (Auto) 6.1, Eos % (Auto) 3.5, Baso % (Auto) 0.8, Absolute Neuts (auto) 10.9 H, Absolute Lymphs (auto) 1.19, Nucleated RBC % 0, APTT 28.4, [id number], Potassium 4.0, Chloride 107, Carbon Dioxide 19.4 L, Anion Gap 16 H, BUN 57 H, Creatinine 7.99 H*, Estim Creat Clear Calc 9.49 L*, Est GFR (MDRD) Non-Af 7 L, BUN/Creatinine Ratio 7.1 L, Glucose 143 H, Calcium 8.7 10/29/24 05:59: POC Glucose 130 H Micro: Microbiology 10/26/24 08:05 Urine Catheter - Larkin Urine Culture - Final Culture exhibits no growth. 10/25/24 10:03 Blood Culture (Wb) - Left Wrist Blood Culture - Preliminary No growth in 48 hours. 10/25/24 10:00 Blood Culture (Wb) - Left Hand Blood Culture - Preliminary No growth in 48 hours. 10/17/24 18:30 Blood Culture (Wb) - Anticubital Right Blood Culture - Final No growth in 5 days. 10/17/24 18:34 Blood Culture (Wb) - Anticubital Left Blood Culture - Final No growth in 5 days. 10/21/24 09:23 Stool Enteric Bacteriology - Final 10/21/24 09:23 Stool Clostridioides difficile (PCR) - Final 10/18/24 11:58 Urine Catheter - Larkin Urine Culture - Final Culture exhibits no growth. 10/19/24 10:15 Urine Catheter - Catheter Legionella Antigen - Final 10/19/24 10:15 Urine Catheter - Catheter Streptococcus pneumoniae Antigen (M- Final 10/19/24 17:55 Mucosa - Nasopharyngeal Respiratory Panel (PCR) - Final 10/19/24 18:11 Mucosa - Nose Coronavirus COVID-19 PCR - Final Physical Exam Const alert and no apparent distress Constitutional Narrative: on HD. HEENT head/scalp atraumatic and moist oral mucous membranes Resp normal respiratory effort, no retractions, no use of accessory muscles and clearto auscultation bilaterally Cardio regular rate, regular rhythm, S1 normal heart sound and S2 normal heart sound GI normal to inspection, nondistended, normoactive bowel sounds, soft to palpation and non-tender Extremity General Extremity: edema bilateral lower extremity Details: mild Assessment & Plan Assessment/Plan (1) High anion gap metabolic acidosis: (2) Urethral stricture: (3) Urinary retention: (4) Fall: QUALIFIERS: Encounter type: initial encounter Qualified Code(s): W19.XXXA - Unspecified fall, initial encounter (5) Rhabdomyolysis: QUALIFIERS: Rhabdomyolysis type: non-traumatic Qualified Code(s):M62.82 - Rhabdomyolysis PLAN: Plan Acute hypoxic respiratory * RULED OUT Pneumonia * pneumococcal v aspiration. With associated pleural effusion. * received pip/tazo from 10/17-. Starting on 10/26 has been on pip/tazo and vancomycin CHRISTY * had dialysis on 10/22 and . * suspect due to ischemic ATN from being down for extended period of time and rhabdomyolysis * non-oliguric, though creatinine trending up. * gtunnel dialysis catheter tentatively for 10/29. Dialysis today. Then outpatient dialysis. Rhabdomyolysis: * resolved. * traumatic, 2/2 to being down for extended period. Hematuria due to urethral stricture * Had urinary retention and urology had to be consulted to place a Larkin as he could not be placed in the ED. Having some mild hematuria but is clearing up. Likely traumatic as a result of passing the Larkin. * To leave Larkin in situ on discharge and to follow-up with urology on outpatient basis. Chronic medical conditions: * Type 2 diabetes mellitus: A1c is 8.1. On insulin sliding scale. Accuhecks ACHS. Usually on metformin at home which is currently on hold. * History of DVT: Has IVC filter in situ. on heparin drip. 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 Has resultant chronic disability from this. Lives alone currently. Family looking at getting him into assisted living. On aspirin. PT OT on board. * Benign essential hypertension: On metoprolol. Lisinopril held due to CHRISTY on CKD * Hyperlipidemia: On statin * Heart failure with reduced ejection fraction: Not in exacerbation but is fluid overloaded due to CHRISTY. Dialysis helping with fluid removal * Parkinson's disease with recent fall: PT OT on board. On levodopa carbidopa. DVT prophylaxis: on heparin drip. Will hold tonight at midnight in anticipationof limited dialysis catheter insertion depending on wbc Disposition: to [facility]. 10/29/24 1325 <Electronically signed by Javon Baldwin DO> Cosigner Signature (if applicable): CC: ~ Signed [facility] Work Phone: [phone]) 474-670809-23-2025 Progress note Author Rodney Chavez [facility] Note Date/Time October 29, 2024 5:04pm [facility] System Medical Records Department [address] [place] [address] Progress Note - Nephrology 10/29/24 1249 MR#: [id number] Acct: [id number] Name: GUSTAVO PATTON Rep #:[id number] : 1950 73 From: Rodney pringle MD PCP: Dr. Tracie Abreu MD Status:ADM IN Location: [place] [address]- 1 Subjective Subjective no new events s/p TDC placement Objective Data Objective Data Vital Signs: Vital Signs Temp Pulse Resp BP Pulse Ox O2 Del Method O2 Flow Rate 98.1 F 90 17 142/72 H 100 Nasal Cannula 3 10/29/24 11:10 10/29/24 12:39 10/29/24 12:39 10/29/24 12:39 10/29/24 12:09 10/29/24 12:39 10/29/24 12:39 Oxygen Flow Rate (L/min) 3 Oxygen Delivery Method Nasal Cannula Weight: 88.4 kg Body Mass Index (BMI) 27.8 Intake & Output: Intake and Output for Last 24 Hours 10/27/24 10/28/24 10/29/24 23:59 23:59 23:59 Intake Total 1770.00 / 1870.00 600 / 816.48 266.48 / 266.48 Output Total 1200 / 1550 1550 / 2150 1551 / 1551 Balance 570.00 / 320.00 -950 / -1333.52 -1284.52 / -1284.52 Lab / Micro Data 10/29/24 04:15 10/29/24 04:15 Labs: Laboratory Results - last 24 hr 10/28/24 16:20: POC Glucose 191 H 10/28/24 21:47: POC Glucose 150 H 10/29/24 04:15: WBC 13.7 H, RBC 2.77 L, Hgb 8.5 L, Hct 25.3 L, MCV 91.3, MCH 30.7, MCHC 33.6, RDW Std Deviation 46.7 H, RDW Coeff of Sara 14.1, Plt Count 438,MPV 11.3, Immature Gran % (Auto) 1.200 H, Neut % (Auto) 79.7 H, Lymph % (Auto) 8.7 L, Scurry % (Auto) 6.1, Eos % (Auto) 3.5, Baso % (Auto) 0.8, Absolute Neuts (auto) 10.9 H, Absolute Lymphs (auto) 1.19, Nucleated RBC % 0, APTT 28.4, [id number], Potassium 4.0, Chloride 107, Carbon Dioxide 19.4 L, Anion Gap 16 H, BUN 57 H, Creatinine 7.99 H*, Estim Creat Clear Calc 9.49 L*, Est GFR (MDRD) Non-Af 7 L, BUN/Creatinine Ratio 7.1 L, Glucose 143 H, Calcium 8.7 10/29/24 05:59: POC Glucose 130 H 10/29/24 11:05: POC Glucose 121 H Micro: Microbiology 10/26/24 08:05 Urine Catheter - [place] Urine Culture - Final Culture exhibits no growth. 10/25/24 10:03 Blood Culture (Wb) - Left Wrist Blood Culture - Preliminary No growth in 48 hours. 10/25/24 10:00 Blood Culture (Wb) - Left Hand Blood Culture - Preliminary No growth in 48 hours. 10/17/24 18:30 Blood Culture (Wb) - Anticubital Right Blood Culture - Final No growth in 5 days. 10/17/24 18:34 Blood Culture (Wb) - Anticubital Left Blood Culture - Final No growth in 5 days. 10/21/24 09:23 Stool Enteric Bacteriology - Final 10/21/24 09:23 Stool Clostridioides difficile (PCR) - Final 10/18/24 11:58 Urine Catheter - [place] Urine Culture - Final Culture exhibits no growth. 10/19/24 10:15 Urine Catheter - Catheter Legionella Antigen - Final 10/19/24 10:15 Urine Catheter - Catheter Streptococcus pneumoniae Antigen (M- Final 10/19/24 17:55 Mucosa - Nasopharyngeal Respiratory Panel (PCR) - Final 10/19/24 18:11 Mucosa - Nose Coronavirus COVID-19 PCR - Final Radiography Diagnostic Testing: Radiology Impression Chest X-Ray 10/29/24 10:06 IMPRESSION: The tip of the right-sided double-lumen catheter is in the right atrium. Mild bibasilar atelectasis. Reading Location: [facility] Physical Exam Narrative Alert and oriented no obvious distress s1s2 no murmurs lungs clear abdomen soft 2+ lower extremity pitting edema larkin + Assessment & Plan Assessment/Plan (1) CHRISTY (acute kidney injury): PLAN: Assessment/Plan: Patient is a 73-year-old male with past history of type 2 diabetes mellitus, hypertension, HFpEF, stroke, Parkinson's disease, and DVT. Patient presented to hospital on 10/17/2024 after falling at home. Patient is admitted to the hospital for treatment of acute hypoxic respiratory failure which was attributed to pneumonia and fluid overload. Patient was also found tohave [place]dom[place] [address] [place]/L on 10/18/2024. Acute kidney injury on chronic kidney disease stage G3a. Baseline serum creatinine appears to be around 1.46 mg/dL (July 2023). CHRISTY is likely due to ischemic/nephrotoxic ATN. Admission creatinine was 2.4, CPK level was 18,000. CPK levels have trended down however he had progressive renal failure. Serum creatinine peaked at 9.55 on 10/22. We also considered alternative etiologies for acute kidney injury, so serologies were sent. So far, serologiesare all negative. Patient was started on dialysis on 10/22/2024 HD today. see orders 10/29/24 1249 <Electronically signed by Rodney Chavez MD> Cosigner Signature (if applicable): CC: ~ Signed [facility] Work Phone: [phone]) 911-564909-23-2025 [facility]09-23-2025 Consult note Author Vicky Rowan [facility] Note Date/Time October 29, 2024 5:04pm [facility] Medical Records Department [address] [place] [address] Pharmacokinetic/Renal -Consult 10/29/24 1130 MR#: [id number] Acct: [id number] Name: GUSTAVO PATTON Rep #:[id number] : 1950 73 From: iVcky Rowan PCP: Dr. Tracie Abreu MD Status:ADM IN Location: [place] [address] Consult Antibiotic Management Pharmacy has been consulted to manage selected antibiotic: Vancomycin Type of Intervention Type of Consult: Follow-up Labs Labs: Sodium 143 mmol/L (133-145) 10/29/24 04:15 Potassium 4.0 mmol/L (3.3-5.1) 10/29/24 04:15 Chloride 107 mmol/L (98-108) 10/29/24 04:15 Carbon Dioxide 19.4 mmol/L (21.0-32.0) L 10/29/24 04:15 Anion Gap 16 (5-15) H 10/29/24 04:15 BUN 57 mg/dL (4-19) H 10/29/24 04:15 Creatinine 7.99 mg/dL (0.70-1.20) H* 10/29/24 04:15 Est GFR (MDRD) Non-Af 7 (>60) L 10/29/24 04:15 BUN/Creatinine Ratio 7.1 RATIO (10-20) L 10/29/24 04:15 Glucose 143 mg/dL (70-99) H 10/29/24 04:15 Microbiology Microbiology: Microbiology 10/26/24 08:05 Urine Catheter - [place] Urine Culture - Final Culture exhibits no growth. 10/25/24 10:03 Blood Culture (Wb) - Left Wrist Blood Culture - Preliminary No growth in 48 hours. 10/25/24 10:00 Blood Culture (Wb) - Left Hand Blood Culture - Preliminary No growth in 48 hours. 10/17/24 18:30 Blood Culture (Wb) - Anticubital Right Blood Culture - Final No growth in 5 days. 10/17/24 18:34 Blood Culture (Wb) - Anticubital Left Blood Culture - Final No growth in 5 days. 10/21/24 09:23 Stool Enteric Bacteriology - Final 10/21/24 09:23 Stool Clostridioides difficile (PCR) - Final 10/18/24 11:58 Urine Catheter - [place] Urine Culture - Final Culture exhibits no growth. 10/19/24 10:15 Urine Catheter - Catheter Legionella Antigen - Final 10/19/24 10:15 Urine Catheter - Catheter Streptococcus pneumoniae Antigen (M- Final 10/19/24 17:55 Mucosa - Nasopharyngeal Respiratory Panel (PCR) - Final 10/19/24 18:11 Mucosa - Nose Coronavirus COVID-19 PCR - Final Goal Trough Goal Trough: 15-20 mcg/mL Pharmacy Plan for Drug Dosing Pharmacy Plan for Drug Dosing: DAILY ASSESSMENT Current Vancomycin Dose: dosing per HD treatment schedule Number of Doses Received: 1 (2g IV x1 10/26 @1146) Current Renal Function: Patient HD dependent- HD schedule is M/W/F per Dialysis nurse Renal Function Trend: n/a Lab/Micro: cultures showing NGTD Any Change in Vanc Plan: Patient had dialysis catheter placement completed today. Discussed case with Tl perioperative nurse to formulate a dosing plan. patientis getting HD today, so patient will get vancomycin 750mg IV x1 post-HD treatment. The patient will be on a HD schedule of M/W/F with next planned HD 10/30/24 per nursing. Will order a random level tomorrow morning pre-HD to determine next dose. Will continue to dose per pre-HD levels. Pending Level: *RANDOM* 10/30/24 @0600 Pharmacy Service will continue to monitor and adjust dosing as required. 10/29/24 1130 <Electronically signed by Vicky Rowan > Date _ Vicky Rowan Cosigner Signature (if applicable): Date CC: ~ Signed [facility] Work Phone: [phone]) 326-294209-23-2025 Consult note Author Domingo Gonsalez [facility] Note Date/Time October 29, 2024 10:08[facility] Medical Records Department [address] [place] [address] Anesthesia Postop Eval I 10/29/24 1007 MR#: [id number] Acct: [id number] Name: GUSTAVO PATTON Rep #:[id number] : 1950 73 From: Domingo BURCIAGA PCP: Dr. Tracie Abreu MD Status:ADM IN Y Race: C Location: [place] [address] 0-1 Anesthesia: Postop Eval I Current Vital Signs Temperature: 98.3 F Pulse Rate: 91 Blood Pressure: 117/68 Respiratory Rate: 16 Pulse Ox: 95 Assessment Airway patent: Yes Spontaneous unlabored respirations: Yes nausea: No Vomiting: No Anesthesia Complication: No Fluid Hydration Crystalloid volume administer (ml): 200 Total IV fluid infused: 200 Progress Note Anesthesia document: Postop Eval 1 completed: Yes 10/29/24 1008 <Electronically signed by Domingo Gonsalez CRNA> Date _ Domingo Abdullahiignmyles Signature: Date CC: ~ Signed [facility] Work Phone: [phone]) [phone] Radiology Diagnostic study [facility]09-23-2025 History and physical note Author Juan Palacios [facility] Note Date/Time October 29, 2024 8:55am [facility] Medical Records Department [address] [place] [address] History & Physical Exam 10/29/24 0854 MR#: [id number] Acct: [id number] Name: GUSTAVO PATTON Rep #:[id number] : 1950 73 From: Juan Palacios MD PCP: Dr. Tracie Abreu MD Status:ADM IN Location: [facility] [id number] HPI - General General Date of Admission: 10/17/24 Date of Service: 10/29/24 Chief Complaint: Fall at Home. HPI Narrative GUSTAVO PATTON, is a 73 M who presents for tunneled dialysis catheter placement [facility] Medical History Facial droop Dysphagia Primary cardiomyopathy Essential (primary) hypertension Diastolic heart failure History of developmental delay History of DVT (deep vein thrombosis) Remote history of stroke DM II (diabetes mellitus, type II), controlled Dysarthria Stroke/cerebrovascular accident Home Medications ?Medication ?Instructions ?Recorded ?Last Taken ?Type multivitamin 1 cap PO DAILY supplement 11/24/22 History atorvastatin 40 mg tablet 40 mg PO QHS #30 tabs Unknown Rx lisinopril 2.5 mg tablet 2.5 mg PO DAILY #30 tabs Unknown Rx metoprolol succinate 25 mg 25 mg PO DAILY #30 tabs Unknown Rx tablet,extended release 24 hr loratadine 10 mg tablet (Allergy 10 mg PO DAILY Unknown History Relief (loratadine)) sennosides 8.6 mg tablet (Senna 8.6 mg PO QHS 01/20/23 Unknown History Lax) metformin 500 mg tablet 500 mg PO DAILY 05/23/23 Unk nown History pantoprazole 20 mg tablet,delayed 20 mg PO DAILY 05/22 Unknown History release apixaban 5 mg tablet (Eliquis) 5 mg PO BID 11/09/23 Un known History aspirin 81 mg chewable tablet 81 mg PO QDAY 11/09/23 U nknown History carbidopa 25 mg-levodopa 100 mg 2 tab PO TID 11/09/23 Unknown History tablet ipratropium bromide 21 mcg (0.03 2 spray intranasal TI D PRN nasal 11/09/23 Unknown History %) nasal spray congestion Allergy/AdvReac Type Severity Reaction Status Date / Time No Known Allergies Allergy Verified 10/17/24 22:17 Family History Father Diabetes Social History household members: none housing: apartment number of children: 0 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 pets and animals: No Smoking Status: Never smoker alcohol intake: never substance use type: does not use Vital Signs Vital Signs Vital Signs: 10/28/24 09:10 10/28/24 09:14 10/28/24 10:50 Temperature 98.0 F Temperature Source Temporal Pulse Rate 101 H Respiratory Rate 16 Respiratory Effort Normal Non-Labored Respiratory Depth Normal Respiratory Pattern Normal Blood Pressure 131/102 H Blood Pressure Mean 111 Blood Pressure Source Blood Pressure Position Blood Pressure Location Pulse Ox 91 96 Oxygen Delivery Method Room Air Room Air Oxygen Flow Rate (L/min) 10/28/24 14:00 10/28/24 16:18 10/28/24 21:00 Temperature 97.9 F Temperature Source Temporal Pulse Rate 104 H Respiratory Rate 18 Respiratory Effort Normal Non-Labored Normal Non-Labored Respiratory Depth Normal Normal Respiratory Pattern Normal Normal Blood Pressure 129/72 H Blood Pressure Mean 91 Blood Pressure Source Blood Pressure Position Blood Pressure Location Pulse Ox 97 Oxygen Delivery Method Room Air Room Air Room Air Oxygen Flow Rate (L/min) 10/28/24 21:40 10/29/24 04:15 10/29/24 04:27 Temperature 98.3 F 97.6 F L Temperature Source Oral Oral Pulse Rate 95 100 Respiratory Rate 18 20 H Respiratory Effort Normal Non-Labored Respiratory Depth Normal Respiratory Pattern Normal Blood Pressure 133/79 H 123/66 H Blood Pressure Mean 97 85 Blood Pressure Source Blood Pressure Position Blood Pressure Location Pulse Ox 96 92 Oxygen Delivery Method Room Air Room Air Room Air Oxygen Flow Rate (L/min) 10/29/24 07:30 10/29/24 08:00 10/29/24 08:22 Temperature 98.3 F 97.9 F Temperature Source Oral Temporal Pulse Rate 106 H 99 Respiratory Rate 20 H 18 Respiratory Effort Normal Non-Labored Respiratory Depth Normal Respiratory Pattern Normal Blood Pressure 145/76 H 132/74 H Blood Pressure Mean 99 93 Blood Pressure Source Monitor Blood Pressure Position Semi-Fowlers Blood Pressure Location Left Arm Pulse Ox 90 96 Oxygen Delivery Method Nasal Cannula Nasal Cannula Room Air Oxygen Flow Rate (L/min) 3 3 10/29/24 08:31 Temperature 97.9 F Temperature Source Pulse Rate 99 Respiratory Rate 18 Respiratory Effort Respiratory Depth Respiratory Pattern Blood Pressure 132/74 H Blood Pressure Mean Blood Pressure Source Blood Pressure Position Blood Pressure Location Pulse Ox 96 Oxygen Delivery Method Nasal Cannula Oxygen Flow Rate (L/min) 3 Weight Weight: 194 lb 14.218 oz Body Mass Index (BMI) 27.9 Physical Exam Const alert, oriented x3 and no apparent distress Results Lab / Micro Data 10/29/24 04:15 10/29/24 04:15 Labs: Laboratory Results - last 24 hr 10/28/24 11:22: POC Glucose 218 H 10/28/24 16:20: POC Glucose 191 H 10/28/24 21:47: POC Glucose 150 H 10/29/24 04:15: WBC 13.7 H, RBC 2.77 L, Hgb 8.5 L, Hct 25.3 L, MCV 91.3, MCH 30.7, MCHC 33.6, RDW Std Deviation 46.7 H, RDW Coeff of Sara 14.1, Plt Count 438,MPV 11.3, Immature Gran % (Auto) 1.200 H, Neut % (Auto) 79.7 H, Lymph % (Auto) 8.7 L, Scurry % (Auto) 6.1, Eos % (Auto) 3.5, Baso % (Auto) 0.8, Absolute Neuts (auto) 10.9 H, Absolute Lymphs (auto) 1.19, Nucleated RBC % 0, APTT 28.4, [id number], Potassium 4.0, Chloride 107, Carbon Dioxide 19.4 L, Anion Gap 16 H, BUN 57 H, Creatinine 7.99 H*, Estim Creat Clear Calc 9.49 L*, Est GFR (MDRD) Non-Af 7 L, BUN/Creatinine Ratio 7.1 L, Glucose 143 H, Calcium 8.7 10/29/24 05:59: POC Glucose 130 H Micro: Microbiology 10/26/24 08:05 Urine Catheter - [place] Urine Culture - Final Culture exhibits no growth. Assessment & Plan Assessment/Plan (1) Rhabdomyolysis: QUALIFIERS: Rhabdomyolysis type: non-traumatic Qualified Code(s):M62.82 - Rhabdomyolysis PLAN: Plan Placement of right sided tunneled dialysis catheter planned for today. Discussed the details of the planned procedure including risk benefits and alternatives. He wishes to proceed. 10/29/24 0855 <Electronically signed by Juan Palacios MD> Cosigner Signature (if applicable): CC: Dr. Traice Abreu MD; Dr. Juan Palacios MD~ Signed [facility] Work Phone: [phone] [phone] Consult note Author [facility] Note Date/Time October 29, 2024 8:33am [facility] Medical Records Department [address] [place] [id number] Pre-Anesthesia Evaluation 10/29/24 0820 MR#: [id number] Acct: [id number] Name: GUSTAVO PATTON Rep #:[id number] : 1950 73 From: Jefferson Alejo MD PCP: Dr. Tracie Abreu MD Status:ADM IN Y Race: C Location: [place] [address] 0-1 ASA Classification* ASA Classification ASA Classification: 3 Assessment & Plan Anesthesia* Anesthesia Assessment Anesthesia Assessment: Discussed sedation and/or anesthesia options, risks, benefits, and alternatives with patient/parents/legal guardian/POA. Questions invited. The patient/parents/legal guardian/POA seems to understand and agrees to proceedwith anesthesia plan. Reviewed the physical assessment, medical history, allergy history and patient home medications list prior to surgery/procedure/anesthetic and documented any changes. Performed airway and anesthesia risk assessments. Anesthesia Type Anesthesia Type: MAC History Source History Obtained from:: Patient and Chart Anesthesia Focused Assessment* Temperature: 97.9 F Pulse Rate: 99 Blood Pressure: 132/74 Respiratory Rate: 18 Pulse Ox: 96 Oxygen Delivery Method: Nasal Cannula Oxygen Flow Rate (L/min): 3 Airway Assessment Mouth opens: >3 cm Mallampati Score: III Teeth Condition: Caps/Crowns (Patient has several crowns. All tight.) Neck Range of motion (ROM): Limited ROM (Somewhat Decreased) Labs Anesthesia Preop lab: CBC WBC, (4.4-11.0) 13.7 K/mm3 H Today, 04:15 RBC, (4.6-6.2) 2.77 M/mm3 L Today, 04:15 Hgb, (13.0-16.5) 8.5 g/dL L Today, 04:15 Hct, (40-54) 25.3 % L Today, 04:15 Plt Count, (150-450) 438 K/mm3 Today, 04:15 CHEMISTRY Potassium, (3.3-5.1) 4.0 mmol/L Today, 04:15 Sodium, (133-145) 143 mmol/L Today, 04:15 Magnesium, (1.5-2.2) 2.0 mg/dL 10/20/24, 02:54 Phosphorus, (2.7-4.5) 3.6 mg/dL 10/19/24, 04:20 BUN, (4-19) 57 mg/dL H Today, 04:15 Creatinine, (0.70-1.20) 7.99 mg/dL H* Today, 04:15 Glucose, (70-99) 143 mg/dL H Today, 04:15 POC Glucose, (74-106) 130 mg/dL H Today, 05:59 TSH, (0.300-4.200) 0.834 uIU/mL 10/17/24, 20:25 COAG PT, (11.7-14.9) 19.0 SECONDS H 10/19/24, 09:23 Pre-Assessment Diagnosis/Proposed Procedure Planned Operative Procedure(s): Right possible left chest tunneled dialysis catheter placement. 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 When Was Last Pacemaker Check QUESTION #4 FULL TEXT: You/Your Family Experience fever (hyperthermia) with Anesthesia Last Oral Intake Last Oral intake: Last Oral Intake NPO since 00:00 10/29/24 02:52 Meds taken in AM with sips of water? Meds patient instructed to take am of surgery PONV PONV - machine spreader: PONV - machine spreader Female HX of Motion Sickness HX of N/V After Surgery Non-Smoker Duration of Surgery greater than 60 minutes Number of Risk Factors PONV Score Height & Weight Height & Weight: Anesthesia: Height & Weight Height 5 ft 10 in 10/29/24 02:52 Weight: 88.4 kg 10/29/24 02:52 Body Mass Index (BMI) 27.9 10/29/24 02:52 Respiratory Assessment Respiratory Assessment - machine spreader: Respiratory Tract Infection Hx - machine spreader Hx Respiratory Tract Infection No 10/29/24 02:52 Any additional information?: Yes Hx Respiratory Tract Infection: Yes History of Anesthesia Respiratory Infection details: Patient believes he had pneumonia about 2 weeks ago. Unclear if he got antibiotics. STOP Sleep Apnea STOP Sleep Apnea - machine spreader: STOP Sleep Apnea - machine spreader Hx Hypertension Yes 10/18/24 13:23 Hx Sleep Apnea No 10/17/24 21:51 CPAP BIPAP Do you snore loudly (louder No 10/17/24 21:51 than talking or can be heard Do you often feel tired/ No 10/17/24 21:51 fatigued/ sleepy during daytime? Has anyone observed you stop No 10/17/24 21:51 breathing during sleep? STOP Results Negative 10/17/24 21:51 QUESTION #5 FULL TEXT : Do you snore loudly (louder than talking or can be heard through closed doors)? 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 Specify any problems Hx of Preganancy in last 3 N/A 10/17/24 21:51 Months Nurse Filling Out Transfusion JSNOW 10/17/24 21:51 & Questions: Date: 10/17/24 10/17/24 21:51 Time: 22:13 10/17/24 21:51 Patient unable to answer at this time (ie. confused, unrespo /Reproduction History /Reproductive History - machine spreader: /Reproductive Hx- machine spreader Hx Now No 10/29/24 02:52 Gestational Age (in weeks): EDC: Hx Hx Para Hx Section SAB No 10/29/24 02:52 Active Medications Active Medications: Current Medications Generic Name Dose Route Start Last Admin Trade Name Freq PRN Reason Stop Dose Admin Acetaminophen 650 mg 10/17/24 22:00 10/18/24 14:03 Acetaminophen 325 Mg Tablet PO 650 mg Q6H PRN PRN Administration Pain 1-5/10 or Fever Calamine/Phenol 1 applic 10/20/24 10:00 10/28/24 21:48 Menthol/Lanolin/Calamine/Znox 113 Gm Tube TOPICAL 1 applic BID SHIRA Administration Protocol Carbidopa/Levodopa 2 tablet 10/17/24 22:00 10/29/24 06:00 Carbidopa/Levodopa 25/100 Tablet PO 2 tablet TIDAC SHIRA Administration Heparin Sodium (Porcine) 0 unit 10/25/24 18:02 10/26/24 15:20 Heparin Nomogram Adjustment 5,000 Unit/Ml Vial IV 1,000 unit UD PRN Administration Dose Adjustment Protocol Sodium Chloride 250 mls @ 15 mls/hr 10/17/24 22:17 10/23/24 16:07 IV Infused .[id number] PRN Infusion Saline Flush Sodium Chloride 250 mls @ 15 mls/hr 10/17/24 22:17 IV .[id number] PRN Additional IVPB Infusion Heparin Sodium/Dextrose 25,000 units in 250 mls @ 7.602 mls/hr 10/25/24 18:05 10/29/24 00:01 CONT INF Infused On Hold: 10/29/24 01:00 .[id number] SHIRA Titration Protocol 8.6 UNIT/KG/HR Vancomycin IV-PHARMACY TO DOSE 500 mls @ 250 mls/hr 10/26/24 08:54 1 each/ Sodium Chloride IV X1 PRN Rx to Dose Protocol Piperacillin Sod/Tazobactam 50 mls @ 12.5 mls/hr 10/26/24 09:30 10/29/24 02:52 Sod 3.375 gm/ Sodium Chloride IV Infused Q12 SHIRA Infusion Sodium Chloride 500 mls @ 0 mls/hr 10/29/24 08:00 10/29/24 08:05 IV 15 mls/hr .Q0M SHIRA Administration KVO Insulin Human Lispro 0 unit 10/18/24 07:00 10/29/24 06:01 Insulin Lispro 100 Unit/Ml Insuln.Pen SC Not Given ACHS [facility] Protocol Ipratropium [place] 1 spray 10/17/24 22:00 Ipratropium [place] 0.06% Nasal [place] NASAL BID PRN ALLERGIES Loratadine 10 mg 10/28/24 10:00 10/28/24 09:17 Loratadine 10 Mg Tablet PO 10 mg Q48 SHIRA Administration Multivitamins 1 tablet 10/18/24 08:00 10/28/24 09:17 Multivitamins,Therapeutic Tablet PO 1 tablet BREAKFAST SHIRA Administration Oxycodone HCl 10 mg 10/17/24 22:00 Oxycodone 5 Mg Tablet PO Q6H PRN PRN Pain Score 6-10 Pantoprazole Sodium 20 mg 10/17/24 22:00 10/28/24 09:17 Pantoprazole Sodium 20 Mg Tablet PO 20 mg DAILY SHIRA Administration Senna 1 tablet 10/17/24 22:00 10/28/24 21:48 Senna Tablet PO 1 tablet QHS SHIRA Administration Sodium Chloride 10 - 40 ml 10/17/24 22:17 10/28/24 09:18 0.9% Saline Lock 10 Ml Syringe IV 10 ml UD PRN Administration SALINE FLUSH Tamsulosin HCl 0.4 mg 10/18/24 17:30 10/28/24 16:21 Tamsulosin Hcl 0.4 Mg Capsule PO 0.4 mg DAILY@1730 SHIRA Administration [facility] Medical History Facial droop Dysphagia Primary cardiomyopathy Essential (primary) hypertension Diastolic heart failure History of developmental delay History of DVT (deep vein thrombosis) Remote history of stroke DM II (diabetes mellitus, type II), controlled Dysarthria Stroke/cerebrovascular accident Home Medications ?Medication ?Instructions ?Recorded ?Last Taken ?Type multivitamin 1 cap PO DAILY supplement 11/24/22 History atorvastatin 40 mg tablet 40 mg PO QHS #30 tabs Unknown Rx lisinopril 2.5 mg tablet 2.5 mg PO DAILY #30 tabs Unknown Rx metoprolol succinate 25 mg 25 mg PO DAILY #30 tabs Unknown Rx tablet,extended release 24 hr loratadine 10 mg tablet (Allergy 10 mg PO DAILY Unknown History Relief (loratadine)) sennosides 8.6 mg tablet (Senna 8.6 mg PO QHS 01/20/23 Unknown History Lax) metformin 500 mg tablet 500 mg PO DAILY 05/23/23 Unk nown History pantoprazole 20 mg tablet,delayed 20 mg PO DAILY 05/22 Unknown History release apixaban 5 mg tablet (Eliquis) 5 mg PO BID 11/09/23 Un known History aspirin 81 mg chewable tablet 81 mg PO QDAY 11/09/23 U nknown History carbidopa 25 mg-levodopa 100 mg 2 tab PO TID 11/09/23 Unknown History tablet ipratropium bromide 21 mcg (0.03 2 spray intranasal TI D PRN nasal 11/09/23 Unknown History %) nasal spray congestion Allergy/AdvReac Type Severity Reaction Status Date / Time No Known Allergies Allergy Verified 10/17/24 22:17 Family History Father Diabetes Social History household members: none housing: apartment number of children: 0 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 pets and animals: No Smoking Status: Never smoker alcohol intake: never substance use type: does not use Review of Systems (Anesthesia) ROS Narrative System reviewed and no additional complaints, except as documented. 10/29/24832 <Electronically signed by Jefferson garza MD> Date _ Jefferson Alejo MD Cosigner Signature: Date CC: ~ Signed [facility] Work Phone: [phone]) 783-282109-23-2025 Procedure [facility] 10-29-2024 [facility]09-22-2025 Progress note Author Javon Baldwin [facility] Note Date/Time October 28, 2024 2:49pm [facility] Medical Records Department [address] [place] [address] Progress Note - Hospitalist 10/28/24913 MR#: [id number] Acct: [id number] Name: GUSTAVO PATTON Rep #:[id number] : 1950 73 From: Javon Baldwin DO PCP: Dr. Tracie Abreu MD Status:ADM IN Location: [place] [address] Reason for Visit Chief Complaint: Fall at Home. Subjective Subjective denies any new complaints Objective Data Objective Data Vital Signs: Vital Signs Temp Pulse Resp BP Pulse Ox O2 Del Method O2 Flow Rate 36.7 C 101 H 16 131/102 H 91 Room Air 2 10/28/24 09:10 10/28/24 09:10 10/28/24 09:10 10/28/24 09:10 10/28/24 09:10 10/28/24 09:10 10/27/24 10:50 Oxygen Flow Rate (L/min) 2 Oxygen Delivery Method Room Air Weight: 88.4 kg Body Mass Index (BMI) 27.9 Intake & Output: Intake and Output for Last 24 Hours 10/26/24 10/27/24 10/28/24 23:59 23:59 23:59 Intake Total 1740.00 / 1860.00 1770.00 / 1870.00 150 / 150 Output Total 800 / 1150 1200 / 1550 750 / 750 Balance 940.00 / 710.00 570.00 / 320.00 -600 / -600 Lab / Micro Data 10/28/24 05:09 10/28/24 05:09 Labs: Laboratory Results - last 24 hr 10/27/24 10:43: APTT 67.2 H 10/27/24 11:32: POC Glucose 183 H 10/27/24 16:53: POC Glucose 136 H 10/27/24 17:13: APTT 62.8 H 10/27/24 21:27: POC Glucose 189 H 10/28/24 05:09: WBC 15.4 H, RBC 2.88 L, Hgb 8.8 L, Hct 26.3 L, MCV 91.3, MCH 30.6, MCHC 33.5, RDW Std Deviation 45.0 H, RDW Coeff of Sara 13.8, Plt Count 442,MPV 11.2, Immature Gran % (Auto) 2.700 H, Neut % (Auto) 74.3 H, Lymph % (Auto) 12.1 L, Scurry % (Auto) 6.2, Eos % (Auto) 4.0, Baso % (Auto) 0.7, Absolute Neuts (auto) 11.4 H, Absolute Lymphs (auto) 1.87, Nucleated RBC % 0, APTT 60.4 H, Sodium 140, Potassium 3.9, Chloride 104, Carbon Dioxide 19.0 L, Anion Gap 17 H, BUN 57 H, Creatinine 7.71 H*, Estim Creat Clear Calc 9.84 L*, Est GFR (MDRD) Non-Af 7 L, BUN/Creatinine Ratio 7.4 L, Glucose 147 H, Calcium 8.8 Micro: Microbiology 10/25/24 10:03 Blood Culture (Wb) - Left Wrist Blood Culture - Preliminary No growth in 48 hours. 10/25/24 10:00 Blood Culture (Wb) - Left Hand Blood Culture - Preliminary No growth in 48 hours. 10/17/24 18:30 Blood Culture (Wb) - Anticubital Right Blood Culture - Final No growth in 5 days. 10/17/24 18:34 Blood Culture (Wb) - Anticubital Left Blood Culture - Final No growth in 5 days. 10/21/24 09:23 Stool Enteric Bacteriology - Final 10/21/24 09:23 Stool Clostridioides difficile (PCR) - Final 10/18/24 11:58 Urine Catheter - [place] Urine Culture - Final Culture exhibits no growth. 10/19/24 10:15 Urine Catheter - Catheter Legionella Antigen - Final 10/19/24 10:15 Urine Catheter - Catheter Streptococcus pneumoniae Antigen (M- Final 10/19/24 17:55 Mucosa - Nasopharyngeal Respiratory Panel (PCR) - Final 10/19/24 18:11 Mucosa - Nose Coronavirus COVID-19 PCR - Final Physical Exam Const alert and no apparent distress Constitutional Narrative: up in chair. weak voice Resp normal respiratory effort, no retractions, no use of accessory muscles and clearto auscultation bilaterally Cardio regular rate, regular rhythm, S1 normal heart sound and S2 normal heart sound GI normal to inspection, nondistended, normoactive bowel sounds, soft to palpation,non-tender and non-distended Extremity normal to inspection, full ROM and no clubbing, cyanosis or edema Neuro Sensorium / Orientation: awake and alert Assessment & Plan Assessment/Plan (1) High anion gap metabolic acidosis: (2) Urethral stricture: (3) Urinary retention: (4) Fall: QUALIFIERS: Encounter type: initial encounter Qualified Code(s): W19.XXXA - Unspecified fall, initial encounter (5) Rhabdomyolysis: QUALIFIERS: Rhabdomyolysis type: non-traumatic Qualified Code(s):M62.82 - Rhabdomyolysis PLAN: Plan Acute hypoxic respiratory * RULED OUT Pneumonia * pneumococcal v aspiration. With associated pleural effusion. * received pip/tazo from 10/17-. Starting on 10/26 has been on pip/tazo and vancomycin CHRISTY * had dialysis on 10/22 and . * suspect due to ischemic ATN from being down for extended period of time and rhabdomyolysis * non-oliguric, though creatinine trending up. * general surgery on for tunnel dialysis catheter tentatively for 10/29 #Rhabdomyolysis: * resolved. * traumatic, 2/2 to being down for extended period. Hematuria due to urethral stricture * Had urinary retention and urology had to be consulted to place a Larkin as he could not be placed in the ED. Having some mild hematuria but is clearing up. Likely traumatic as a result of passing the Larkin. * To leave Larkin in situ on discharge and to follow-up with urology on outpatient basis. Chronic medical conditions: * Type 2 diabetes mellitus: A1c is 8.1. On insulin sliding scale. Accuhecks ACHS. Usually on metformin at home which is currently on hold. * History of DVT: Has IVC filter in situ. on heparin drip. 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 Has resultant chronic disability from this. Lives alone currently. Family looking at getting him into assisted living. On aspirin. PT OT on board. * Benign essential hypertension: On metoprolol. Lisinopril held due to CHRISTY on CKD * Hyperlipidemia: On statin * Heart failure with reduced ejection fraction: Not in exacerbation but is fluid overloaded due to CHRISTY. Dialysis helping with fluid removal * Parkinson's disease with recent fall: PT OT on board. On levodopa carbidopa. DVT prophylaxis: on heparin drip. Will hold tonight at midnight in anticipationof limited dialysis catheter insertion depending on wbc Disposition: TBD. will need placement when medically ready. Charges/Coding Visit Charges Inpatient E&M: 63570 Subs Hosp L2 10/28/24 2286 <Electronically signed by Javon Baldwin DO> Cosigner Signature (if applicable): CC: ~ Signed [facility] Work Phone: [phone]) 835-753609-22-2025 Progress note Author Roxanna Rahman [facility] Note Date/Time October 28, 2024 1:18pm [facility] Medical Records Department [address] [place] [address] Progress Note - Surgery 10/28/24807 MR#: [id number] Acct: [id number] Name: GUSTAVO PATTON Rep #:[id number] : 1950 73 From: Roxanna MCCLAIN PA-C PCP: Dr. Tracie Abreu MD Status:ADM IN Location: [place] [address]- 1 Subjective Subjective Patient evaluated resting comfortably in the chair. He seems lethargic this morning. No concerns or complaints at the previous temporary dialysis site. He denies any questions about the tunneled catheter. Objective Data Objective Data Vital Signs: Vital Signs Temp Pulse Resp BP Pulse Ox O2 Del Method O2 Flow Rate 98.5 F 88 18 145/87 H 94 Room Air 2 10/28/24 03:10/28/24 03:20 10/28/24 03:10/28/24 03:10/28/24 03:20 10/28/24 03:10/27/24 10:50 Oxygen Flow Rate (L/min) 2 Oxygen Delivery Method Room Air Weight: 194 lb 14.218 oz Body Mass Index (BMI) 27.9 Intake & Output: Intake and Output for Last 24 Hours 10/26/24 10/27/24 10/28/24 23:59 23:59 23:59 Intake Total 1740.00 / 1860.00 1770.00 / 1870.00 150 / 150 Output Total 800 / 1150 1200 / 1550 750 / 750 Balance 940.00 / 710.00 570.00 / 320.00 -600 / -600 Lab / Micro Data 10/28/24 05:09 10/28/24 05:09 Labs: Laboratory Results - last 24 hr 10/27/24 10:43: APTT 67.2 H 10/27/24 11:32: POC Glucose 183 H 10/27/24 16:53: POC Glucose 136 H 10/27/24 17:13: APTT 62.8 H 10/27/24 21:27: POC Glucose 189 H 10/28/24 05:09: WBC 15.4 H, RBC 2.88 L, Hgb 8.8 L, Hct 26.3 L, MCV 91.3, MCH 30.6, MCHC 33.5, RDW Std Deviation 45.0 H, RDW Coeff of Sara 13.8, Plt Count 442,MPV 11.2, Immature Gran % (Auto) 2.700 H, Neut % (Auto) 74.3 H, Lymph % (Auto) 12.1 L, Scurry % (Auto) 6.2, Eos % (Auto) 4.0, Baso % (Auto) 0.7, Absolute Neuts (auto) 11.4 H, Absolute Lymphs (auto) 1.87, Nucleated RBC % 0, APTT 60.4 H, Sodium 140, Potassium 3.9, Chloride 104, Carbon Dioxide 19.0 L, Anion Gap 17 H, BUN 57 H, Creatinine 7.71 H*, Estim Creat Clear Calc 9.84 L*, Est GFR (MDRD) Non-Af 7 L, BUN/Creatinine Ratio 7.4 L, Glucose 147 H, Calcium 8.8 Micro: Microbiology 10/25/24 10:03 Blood Culture (Wb) - Left Wrist Blood Culture - Preliminary No growth in 48 hours. 10/25/24 10:00 Blood Culture (Wb) - Left Hand Blood Culture - Preliminary No growth in 48 hours. 10/17/24 18:30 Blood Culture (Wb) - Anticubital Right Blood Culture - Final No growth in 5 days. 10/17/24 18:34 Blood Culture (Wb) - Anticubital Left Blood Culture - Final No growth in 5 days. 10/21/24 09:23 Stool Enteric Bacteriology - Final 10/21/24 09:23 Stool Clostridioides difficile (PCR) - Final 10/18/24 11:58 Urine Catheter - [place] Urine Culture - Final Culture exhibits no growth. 10/19/24 10:15 Urine Catheter - Catheter Legionella Antigen - Final 10/19/24 10:15 Urine Catheter - Catheter Streptococcus pneumoniae Antigen (M- Final 10/19/24 17:55 Mucosa - Nasopharyngeal Respiratory Panel (PCR) - Final 10/19/24 18:11 Mucosa - Nose Coronavirus COVID-19 PCR - Final Physical Exam Neck Neck Narrative: Neck, right lateral- previous catheter site completely healed Assessment & Plan Assessment/Plan (1) HCRISTY (acute kidney injury): PLAN: I am following this patient in conjunction with Dr. Hand. He has independently evaluated this patient. Labs reviewed. WBC decreasing Continue IV antibiotics Plan for tunneled catheter to be placed tomorrow, likely with Dr. Philip HAMPTON after midnight tonight Hold Heparin starting tonight around midnight We will continue to monitor this patient Charges/Coding Visit Charges Inpatient E&M: 91326 Subs Hosp L2 10/28/24 0842 <Electronically signed by Roxanna MCCLAIN PA-C> Cosigner Signature (if applicable): CC: ~ Signed ADDENDUM by JOSE Rahman on 10/28/24 at 1318 Addendum Patient is tentatively scheduled for tunneled catheter placement at approximately 8:45 AM on 10/[address] Juan Palacios. 10/28/24 1318<Electronically signed by Roxanna MCCLAIN PA-C> Cosigner Signature (if applicable): cc: ~* Signed [facility] Work Phone: [phone]) 999-696209-22-2025 Progress note Author Rodney Chavez [facility] Note Date/Time October 28, 2024 11:04am [facility] Medical Records Department [address] [place] [address] Progress Note - Nephrology 10/28/24 1103 MR#: [id number] Acct: [id number] Name: GUSTAVO PATTON Rep #:[id number] : 1950 73 From: Rodney pringle MD PCP: Dr. Tracie Abreu MD Status:ADM IN Location: [place] [address] Subjective Subjective No new complaints today Objective Data Objective Data Vital Signs: Vital Signs Temp Pulse Resp BP Pulse Ox O2 Del Method O2 Flow Rate 98.0 F 101 H 16 131/102 H 91 Room Air 2 10/28/24 09:10 10/28/24 09:10 10/28/24 09:10 10/28/24 09:10 10/28/24 09:10 10/28/24 09:14 10/27/24 10:50 Oxygen Flow Rate (L/min) 2 Oxygen Delivery Method Room Air Weight: 88.4 kg Body Mass Index (BMI) 27.9 Intake & Output: Intake and Output for Last 24 Hours 10/26/24 10/27/24 10/28/24 23:59 23:59 23:59 Intake Total 1740.00 / 1860.00 1770.00 / 1870.00 150 / 150 Output Total 800 / 1150 1200 / 1550 750 / 750 Balance 940.00 / 710.00 570.00 / 320.00 -600 / -600 Lab / Micro Data 10/28/24 05:09 10/28/24 05:09 Labs: Laboratory Results - last 24 hr 10/27/24 10:43: APTT 67.2 H 10/27/24 11:32: POC Glucose 183 H 10/27/24 16:53: POC Glucose 136 H 10/27/24 17:13: APTT 62.8 H 10/27/24 21:27: POC Glucose 189 H 10/28/24 05:09: WBC 15.4 H, RBC 2.88 L, Hgb 8.8 L, Hct 26.3 L, MCV 91.3, MCH 30.6, MCHC 33.5, RDW Std Deviation 45.0 H, RDW Coeff of Sara 13.8, Plt Count 442,MPV 11.2, Immature Gran % (Auto) 2.700 H, Neut % (Auto) 74.3 H, Lymph % (Auto) 12.1 L, Scurry % (Auto) 6.2, Eos % (Auto) 4.0, Baso % (Auto) 0.7, Absolute Neuts (auto) 11.4 H, Absolute Lymphs (auto) 1.87, Nucleated RBC % 0, APTT 60.4 H, Sodium 140, Potassium 3.9, Chloride 104, Carbon Dioxide 19.0 L, Anion Gap 17 H, BUN 57 H, Creatinine 7.71 H*, Estim Creat Clear Calc 9.84 L*, Est GFR (MDRD) Non-Af 7 L, BUN/Creatinine Ratio 7.4 L, Glucose 147 H, Calcium 8.8 Micro: Microbiology 10/26/24 08:05 Urine Catheter - Larkin Urine Culture - Final Culture exhibits no growth. 10/25/24 10:03 Blood Culture (Wb) - Left Wrist Blood Culture - Preliminary No growth in 48 hours. 10/25/24 10:00 Blood Culture (Wb) - Left Hand Blood Culture - Preliminary No growth in 48 hours. 10/17/24 18:30 Blood Culture (Wb) - Anticubital Right Blood Culture - Final No growth in 5 days. 10/17/24 18:34 Blood Culture (Wb) - Anticubital Left Blood Culture - Final No growth in 5 days. 10/21/24 09:23 Stool Enteric Bacteriology - Final 10/21/24 09:23 Stool Clostridioides difficile (PCR) - Final 10/18/24 11:58 Urine Catheter - Larkin Urine Culture - Final Culture exhibits no growth. 10/19/24 10:15 Urine Catheter - Catheter Legionella Antigen - Final 10/19/24 10:15 Urine Catheter - Catheter Streptococcus pneumoniae Antigen (M- Final 10/19/24 17:55 Mucosa - Nasopharyngeal Respiratory Panel (PCR) - Final 10/19/24 18:11 Mucosa - Nose Coronavirus COVID-19 PCR - Final Physical Exam Narrative Alert and oriented no obvious distress s1s2 no murmurs lungs clear abdomen soft 2+ lower extremity pitting edema larkin + Assessment & Plan Assessment/Plan (1) CHRISTY (acute kidney injury): PLAN: Assessment/Plan: Patient is a 73-year-old male with past history of type 2 diabetes mellitus, hypertension, HFpEF, stroke, Parkinson's disease, and DVT. Patient presented to hospital on 10/17/2024 after falling at home. Patient is admitted to the hospital for treatment of acute hypoxic respiratory failure which was attributed to pneumonia and fluid overload. Patient was also found tohave rhabdomy[place] [address] [place]/L on 10/18/2024. Acute kidney injury on chronic kidney disease stage G3a. Baseline serum creatinine appears to be around 1.46 mg/dL (July 2023). CHRISTY is likely due to ischemic/nephrotoxic ATN. Admission creatinine was 2.4, CPK level was 18,000. CPK levels have trended down however he had progressive renal failure. Serum creatinine peaked at 9.55 on 10/22. We also considered alternative etiologies for acute kidney injury, so serologies were sent. So far, serologiesare all negative. Patient was started on dialysis on 10/22/2024 Last dialysis was . Urine output is decent. Creatinine remains high. Tunneled dialysis catheter placement as per surgery. Discussed with hospitalist. There was some concern for infection due to leukocytosis. Today potassium is okay, bicarbonate is okay. Tentatively line placement tomorrow 10/28/24 1104 <Electronically signed by Rodney Chavez MD> Cosigner Signature (if applicable): CC: ~ Signed [facility] Work Phone: [phone]) 792-306709-22-2025 Progress note Author Tristin Caba [facility] Note Date/Time October 28, 2024 10:01[facility] Medical Records Department [address] [facility] [place] [address] Progress Note - Nephrology 10/24/24 0958 MR#: [id number] Acct: [id number] Name: GUSTAVO PATTON Rep #:[id number] : 1950 73 From: Tristin harrison [employer] PCP: Dr. Tracie Abreu MD Status:ADM IN Location: [place] [address] Subjective Subjective Sitting in chair, no complaints today. States tolerated his dialysis session yesterday. Objective Data Objective Data Vital Signs: Vital Signs Temp Pulse Resp BP Pulse Ox O2 Del Method O2 Flow Rate 97.8 F 87 28 H 134/68 H 93 Room Air 5 10/24/24 09:04 10/24/24 09:04 10/24/24 09:04 10/24/24 09:04 10/24/24 09:04 10/24/24 09:05 10/24/24 09:04 Oxygen Flow Rate (L/min) 5 Oxygen Delivery Method Room Air Weight: 75.4 kg Body Mass Index (BMI) 23.8 Intake & Output: Intake and Output for Last 24 Hours 10/22/24 10/23/24 10/24/24 23:59 23:59 23:59 Intake Total 280.62 / 530.62 796.57 / 796.57 196.31 / 196.31 Output Total 1230 / 1330 1780 / 1780 450 / 450 Balance -949.38 / -799.38 -983.43 / -983.43 -253.69 / -253.69 Lab / Micro Data 10/24/24 04:29 10/24/24 04:29 Labs: Laboratory Results - last 24 hr 10/22/24 08:15: Double Strand DNA Ab <1 10/23/24 11:53: POC Glucose 181 H 10/23/24 12:08: APTT 39.8 H 10/23/24 17:01: POC Glucose 145 H 10/23/24 19:10: APTT 113.7 H* 10/23/24 22:40: POC Glucose 196 H 10/24/24 04:29: WBC 12.2 H, RBC 3.23 L, Hgb 9.8 L, Hct 29.2 L, MCV 90.4, MCH 30.3, MCHC 33.6, RDW Std Deviation 45.0 H, RDW Coeff of Sara 13.7, Plt Count 351,MPV 10.5, Neut % (Auto) Not Reportable, Absolute Neuts (auto) 9.0 H, Absolute Lymphs (auto) 1.46, Total Counted 100, Neutrophils % (Manual) 74 H, Lymphocytes % (Manual) 12 L, Monocytes % (Manual) 4, Eosinophils % (Manual) 6 H, Metamyelocytes % 3 H, Myelocytes % 1 H, Platelet Estimate ADEQUATE, Anisocytosis 1+, Ovalocytes 1+, APTT 54.1 H, Sodium 141, Potassium 3.6, Chloride 106, Carbon Dioxide 22.2, Anion Gap 14, BUN 48 H, Creatinine 5.62 H, Estim Creat Clear Calc 12.45 L, Est GFR (MDRD) Non-Af 10 L, BUN/Creatinine Ratio 8.5 L, Glucose 171 H, Calcium 8.6 10/24/24 06:27: POC Glucose 141 H Micro: Microbiology 10/17/24 18:30 Blood Culture (Wb) - Anticubital Right Blood Culture - Final No growth in 5 days. 10/17/24 18:34 Blood Culture (Wb) - Anticubital Left Blood Culture - Final No growth in 5 days. 10/21/24 09:23 Stool Enteric Bacteriology - Final 10/21/24 09:23 Stool Clostridioides difficile (PCR) - Final 10/18/24 11:58 Urine Catheter - Larkin Urine Culture - Final Culture exhibits no growth. 10/19/24 10:15 Urine Catheter - Catheter Legionella Antigen - Final 10/19/24 10:15 Urine Catheter - Catheter Streptococcus pneumoniae Antigen (M- Final 10/19/24 17:55 Mucosa - Nasopharyngeal Respiratory Panel (PCR) - Final 10/19/24 18:11 Mucosa - Nose Coronavirus COVID-19 PCR - Final Radiography Diagnostic Testing: Radiology Impression Chest X-Ray 10/24/24 09:25 IMPRESSION: Mild bilateral pulmonary vascular congestion. Reading Location: [facility] Physical Exam Narrative Alert and oriented no obvious distress s1s2 no murmurs lungs clear abdomen soft no pitting edema larkin + temporary non-tunneled dialysis catheter right IJ Assessment & Plan Assessment/Plan (1) CHRISTY (acute kidney injury): PLAN: - CHRISTY on possible CKD (SCr 1.11 July 2023). He was initially admitted to the hospital with a fall and rhabdomyolysis. Admission creatinine was 2.4, CPK level was 18,000. CPK levels have trended down however he had progressive renalfailure. Serum creatinine peaked at 9.55 on 10/22. Nonoliguric. At this point we will consider alternative etiologies for acute renal failure. Serologies ordered and are pending. Initiated on dialysis 10/22/2024, dialyzed again 10/23 with 1 L fluid removal. No acute indication for renal placement therapy today. There has been no noted renal recovery therefore patient will need tunneled hemodialysis catheter placed and outpatient hemodialysis arrangements to [facility] Dx: CHRISTY. Will plan for dialysis tomorrow with fluid removal. Reviewed chest x-ray today showing mild pulmonary congestion. History of DVT on heparin drip. Assessment and plan reviewed with Dr. Chavez. 10/24/24 1005 <Electronically signed by Tristin HERRMANN> Cosigner Signature (if applicable): 10/28/24 1001 <Electronically signed by Rodney Chavez MD> CC: ~ Signed [facility] Work Phone: [phone] 909-637009-22-2025 Progress note Author [facility] Note Date/Time October 28, 2024 10:01am [facility] Medical Records Department [address] [place] [address] Progress Note - Nephrology 10/25/24 1549 MR#: [id number] Acct: [id number] Name: GUSTAVO PATTON Rep #:[id number] : 1950 73 From: Tristin HERRMANN PCP: Dr. Tracie Abreu MD Status:ADM IN Location: [place] [id number]- [id number] Subjective Subjective Sitting in chair. No complaints. No overnight events. Objective Data Objective Data Vital Signs: Vital Signs Temp Pulse Resp BP Pulse Ox O2 Del Method O2 Flow Rate 97.6 F L 104 H 22 H 135/71 H 94 Room Air 2 10/25/24 14:47 10/25/24 14:47 10/25/24 14:47 10/25/24 14:47 10/25/24 14:47 10/25/24 14:47 10/24/24 12:49 Oxygen Flow Rate (L/min) 2 Oxygen Delivery Method Room Air Weight: 88.4 kg Body Mass Index (BMI) 27.9 Intake & Output: Intake and Output for Last 24 Hours 10/23/24 10/24/24 10/25/24 23:59 23:59 23:59 Intake Total 796.57 / 796.57 371.50 / 371.50 0 / 0 Output Total 1780 / 1780 1000 / 1000 500 / 500 Balance -983.43 / -983.43 -628.50 / -628.50 -500 / -500 Lab / Micro Data 10/25/24 04:47 10/25/24 04:47 Labs: Laboratory Results - last 24 hr 10/24/24 16:44: POC Glucose 201 H 10/24/24 17:00: APTT 44.9 H 10/24/24 22:56: POC Glucose 163 H 10/25/24 04:47: WBC 14.7 H, RBC 3.07 L, Hgb 9.3 L, Hct 28.0 L, MCV 91.2, MCH 30.3, MCHC 33.2, RDW Std Deviation 45.8 H, RDW Coeff of Sara 13.8, Plt Count 364,MPV 10.5, Neut % (Auto) Not Reportable, Absolute Neuts (auto) 11.8 H, Absolute Lymphs (auto) 2.06, Total Counted 100, Neutrophils % (Manual) 80 H, Lymphocytes % (Manual) 14 L, Monocytes % (Manual) 2, Eosinophils % (Manual) 3, Myelocytes % 1 H, Toxic Granulation 1+, Platelet Estimate ADEQUATE, RBC Morphology NORM C+C, APTT 28.9, Sodium 142, Potassium 3.4, Chloride 107, Carbon Dioxide 21.5, Anion Gap 14, BUN 55 H, Creatinine 6.53 H, Estim Creat Clear Calc 11.62 L, Est GFR (MDRD) Non-Af 8 L, BUN/Creatinine Ratio 8.4 L, Glucose 164 H, Calcium 8.5, Procalcitonin 0.33 H 10/25/24 06:41: POC Glucose 142 H 10/25/24 10:15: Urine Color Yellow, Urine Clarity Clear, Urine pH 6.0, Ur Specific [place] 1.010, Urine Protein 100 H, Urine Glucose (UA) Normal, Urine Ketones Negative, Urine Occult Blood 250 H, Urine Nitrite Negative, Urine Bilirubin Negative, Urine Urobilinogen Normal, Ur Leukocyte Esterase 500 H, Urine RBC > 100 SEEN, Urine WBC 10-25 SEEN, Ur Squamous Epith Cells 0-5 SEEN, Urine Bacteria 0 SEEN, Urine Mucus 0 SEEN 10/25/24 11:17: POC Glucose 183 H Micro: Microbiology 10/17/24 18:30 Blood Culture (Wb) - Anticubital Right Blood Culture - Final No growth in 5 days. 10/17/24 18:34 Blood Culture (Wb) - Anticubital Left Blood Culture - Final No growth in 5 days. 10/21/24 09:23 Stool Enteric Bacteriology - Final 10/21/24 09:23 Stool Clostridioides difficile (PCR) - Final 10/18/24 11:58 Urine Catheter - Larkin Urine Culture - Final Culture exhibits no growth. 10/19/24 10:15 Urine Catheter - Catheter Legionella Antigen - Final 10/19/24 10:15 Urine Catheter - Catheter Streptococcus pneumoniae Antigen (M- Final 10/19/24 17:55 Mucosa - Nasopharyngeal Respiratory Panel (PCR) - Final 10/19/24 18:11 Mucosa - Nose Coronavirus COVID-19 PCR - Final Radiography Diagnostic Testing: Radiology Impression Chest X-Ray 10/25/24 11:03 IMPRESSION: Mild degree of bibasilar atelectasis. [facility] Physical Exam Narrative Alert and oriented no obvious distress s1s2 no murmurs lungs clear abdomen soft no pitting edema larkin + Assessment & Plan Assessment/Plan (1) CHRISTY (acute kidney injury): PLAN: - CHRISTY on possible CKD (SCr 1.11 July 2023). He was initially admitted to the hospital with a fall and rhabdomyolysis. Admission creatinine was 2.4, CPK level was 18,000. CPK levels have trended down however he had progressive renalfailure. Serum creatinine peaked at 9.55 on 10/22. Nonoliguric. At this point we will consider alternative etiologies for acute renal failure. Serologies ordered and are pending. Initiated on dialysis 10/22/2024, dialyzed again 10/23 with 1 L fluid removal. Temporary hemodialysis line was removed as plan was forpatient to have tunneled hemodialysis catheter placed. White count trended up to 14.7 today. Surgery has been consulted for tunneled hemodialysis catheter but prefers to hold off placing tunneled line due to elevated white count. No acute indication for renal placement therapy today, serum creatinine 6.53, todaypotassium and bicarb normal. Patient is making urine and he is on room air. Nosignificant hypervolemia. Urine output yesterday around 1 L. Recommend for patient to be on renal diet with low potassium restrictions, will check labs over the weekend. Outpatient hemodialysis arrangements ud[place]way to [facility] Dx: CHRISTY. Assessment and plan reviewed with Dr. Chavez. 10/25/24 1554 <Electronically signed by Tristin HERRMANN> Cosigner Signature (if applicable): 10/28/24 1001 <Electronically signed by Rodney Chavez MD> CC: ~ Signed [facility] Work Phone: 1(270) 533-484809-21-2025 Progress note Author [facility] Note Date/Time October 27, 2024 5:07pm [facility] Medical Records Department [address] [place] [address] Progress Note 10/27/24 1236 MR#: [id number] Acct: [id number] Name: GUSTAVO PATTON Rep #:[id number] : 1950 73 From: Rosmery Lake MD PCP: Dr. Tracie Abreu MD Status:ADM IN Location: [place] [address] Subjective Subjective Patient seen and examined. He had no complaints today and had an uneventful night. Review of systems is otherwise negative. He has remained hemodynamically stable. He is on 2L of oxygen by nasal canula. He has otherwise remained hemodynamically stable. Objective Data Objective Data Vital Signs: Vital Signs Temp Pulse Resp BP Pulse Ox O2 Del Method O2 Flow Rate 97.5 F L 95 19 H 142/72 H 98 Room Air 2 10/27/24 09:29 10/27/24 09:29 10/27/24 09:29 10/27/24 09:29 10/27/24 09:29 10/27/24 09:29 10/27/24 10:50 Oxygen Flow Rate (L/min) 2 Oxygen Delivery Method Room Air Weight: 194 lb 14.218 oz Body Mass Index (BMI) 27.9 Intake & Output: Intake and Output for Last 24 Hours 10/25/24 10/26/24 10/27/24 23:59 23:59 23:59 Intake Total 760 / 760 1740.00 / 1860.00 704.02 / 704.02 Output Total 1200 / 1200 800 / 1150 850 / 850 Balance -440 / -440 940.00 / 710.00 -145.98 / -145.98 Lab / Micro Data 10/27/24 03:40 10/27/24 03:40 Labs: Laboratory Results - last 24 hr 10/26/24 14:20: APTT 50.3 H 10/26/24 16:22: POC Glucose 180 H 10/26/24 21:18: APTT 73.6 H 10/26/24 21:23: POC Glucose 187 H 10/27/24 03:40: WBC 17.7 H, RBC 2.95 L, Hgb 8.9 L, Hct 26.9 L, MCV 91.2, MCH 30.2, MCHC 33.1, RDW Std Deviation 46.5 H, RDW Coeff of Sara 13.9, Plt Count 397,MPV 10.7, Immature Gran % (Auto) 4.300 H, Neut % (Auto) 72.5 H, Lymph % (Auto) 12.7 L, Scurry % (Auto) 5.9, Eos % (Auto) 3.8, Baso % (Auto) 0.8, Absolute Neuts (auto) 12.9 H, Absolute Lymphs (auto) 2.25, Nucleated RBC % 0, APTT 85.5 H, Sodium 139, Potassium 3.6, Chloride 104, Carbon Dioxide 19.8 L, Anion Gap 16 H, BUN 58 H, Creatinine 7.51 H*, Estim Creat Clear Calc 10.10 L, Est GFR (MDRD) Non-Af 7 L, BUN/Creatinine Ratio 7.7 L, Glucose 148 H, Calcium 8.7 10/27/24 06:41: POC Glucose 145 H 10/27/24 10:43: APTT 67.2 H 10/27/24 11:32: POC Glucose 183 H Micro: Microbiology 10/25/24 10:03 Blood Culture (Wb) - Left Wrist Blood Culture - Preliminary No growth in 48 hours. 10/25/24 10:00 Blood Culture (Wb) - Left Hand Blood Culture - Preliminary No growth in 48 hours. 10/17/24 18:30 Blood Culture (Wb) - Anticubital Right Blood Culture - Final No growth in 5 days. 10/17/24 18:34 Blood Culture (Wb) - Anticubital Left Blood Culture - Final No growth in 5 days. 10/21/24 09:23 Stool Enteric Bacteriology - Final 10/21/24 09:23 Stool Clostridioides difficile (PCR) - Final 10/18/24 11:58 Urine Catheter - Larkin Urine Culture - Final Culture exhibits no growth. 10/19/24 10:15 Urine Catheter - Catheter Legionella Antigen - Final 10/19/24 10:15 Urine Catheter - Catheter Streptococcus pneumoniae Antigen (M- Final 10/19/24 17:55 Mucosa - Nasopharyngeal Respiratory Panel (PCR) - Final 10/19/24 18:11 Mucosa - Nose Coronavirus COVID-19 PCR - Final Physical Exam Const alert, no apparent distress, average body habitus and healthy appearing Constitutional Narrative: flat affect, episodic confusion General Appearance: cooperative HEENT normocephalic, head/scalp atraumatic, hearing grossly normal bilaterally, moist oral mucous membranes and oropharynx normal Eyes PERRL, EOMs intact bilaterally and conjunctivae normal Eyes Narrative: No scleral icterus Neck no lymphadenopathy, supple and no JVD Neck Narrative: Trachea midline Lymph Lymphatic: no lymphedema noted Resp No normal respiratory effort, no retractions, no use of accessory muscles and clear to auscultation bilaterally Resp Narrative: Mildly diminished breath sounds bibasilar. No wheezes or crackles. on room air. Effort and Inspection: tachypneic Auscultation: Negative for rales, rhonchi or wheezes Cardio regular rate, regular rhythm, S1 normal heart sound, S2 normal heart sound, no murmurs, no rub, no gallops and no clicks GI normal to inspection, nondistended, normoactive bowel sounds, soft to palpation,non-tender and non-distended Extremity Extremity Narrative: 1+ pedal and radial pulses, trace pitting edema bilateral lower and upper extremities especially in dependent areas, no cyanosis or clubbing General Extremity: no tenderness to palpation of joints or extremities Skin Skin Narrative: dialysis catheter in situ General Skin Exam: no breakdown Neuro CN's II-XII intact bilaterally, moves all extremities and no focal motor deficits Neuro Narrative: Bradykinesia, speech is clear and normal though he often appears hesitant in speech and movement. Sensorium / Orientation: awake and alert Motor Exam: general weakness Psych thought process normal, cooperative and affect normal Psych Narrative: flat affect Mood & Affect: flat affect Assessment & Plan Assessment/Plan (1) High anion gap metabolic acidosis: (2) Urethral stricture: (3) Urinary retention: (4) Fall: QUALIFIERS: Encounter type: initial encounter Qualified Code(s): W19.XXXA - Unspecified fall, initial encounter (5) Rhabdomyolysis: QUALIFIERS: Rhabdomyolysis type: non-traumatic Qualified Code(s):M62.82 - Rhabdomyolysis PLAN: Plan #Acute hypoxic respiratory failure due to multilobar pneumonia and fluid overload * now on room air. Chest x-ray done showed vascular congestion. * CT of the chest showed multilobar pneumonia on admission.Completed a course of IV zosyn yesterday from 10/19/2024 till 10/24/2024 * Urine for strep and Legionella antigens were negative. Speech therapy on board in light of history of stroke and Parkinson's disease. * COVID and respiratory panels were negative. * should improve with dialysis * wbc today is 17.7, slightly down from 17.9 yesterday. * Urinalysis was not very impressive for UTI. Bacteria was negative but he did have elevated leukocyte esterase and WBC. There were no nitrites. Urine cultures and blood cultures are pending. * CT of the chest abdomen and pelvis was done which is showing thickened left pectoralis major muscle with intramuscular hematoma which is new since prior study cardiomegaly with mild vascular congestion, bilateral pleural effusions small on the right and minimal on the left and improving dependent lung opacities bilaterally likely atelectasis and/or infiltrates and nonobstructing left renal calculus. The intramuscular hematoma is likely due to the dialysis catheter that was pulled. * Blood culture showed no growth in 48 hours. Urine cultures pending. * Patient started on IV vancomycin and Zosyn empirically. * If urine cultures negative will DC broad-spectrum antibiotics. * * #CHRISTY on CKD stage IIIb * Commenced on dialysis. * Management as per nephrology. * on bicarb. * .Nephrology patient need continued dialysis so general surgery contacted for insertion of permanent dialysis catheter. Will hold heparin * General Surgery not during the dialysis catheter today because of the elevated WBC patient started empirically on broad-spectrum antibiotics as above. * Discussed with Dr. Hand. If nephrology deems that patient will need dialysis then a temporary dialysis catheter will be inserted tomorrow. Per Dr. Hand nobody available to do the permanent dialysis catheter on Monday. * #Rhabdomyolysis: * resolved. * #Acute anemia: Hemoglobin today is 8.9. Remained stable. Will monitor. #Hematuria due to urethral stricture * Had urinary retention and urology had to be consulted to place a Larkin as he could not be placed in the ED. Having some mild hematuria but is clearing up. Likely traumatic as a result of passing the Larkin. * To leave Larkin in situ on discharge and to follow-up with urology on outpatient basis. * #Type 2 diabetes mellitus: A1c is 8.1. On insulin sliding scale. Accuhecks ACHS. Usually on metformin at home which is currently on hold. #History of DVT: Has IVC filter in situ. on heparin drip. 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 Lives alone currently. Family looking at getting him into assisted living. On aspirin. PT OT on board. #Benign essential hypertension: On metoprolol. Lisinopril held due to CHRISTY on CKD #Hyperlipidemia: On statin #Heart failure with reduced ejection fraction: Not in exacerbation but is fluid overloaded due to CHRISTY. Dialysis helping with fluid removal #Parkinson's disease with recent fall: PT OT on board. On levodopa carbidopa. #DVT prophylaxis: on heparin drip. Will hold tonight at midnight in anticipation of limited dialysis catheter insertion depending on wbc Disposition: will need placement Charges/Coding Visit Charges Inpatient E&M: 68305 Subs Hosp L2 10/27/24 6326 <Electronically signed by Rosmery Lake MD> Rosmery Lake MD Cosigner Signature (if applicable): CC: ~ Signed [facility] Work Phone: 1(455) 936-565009-21-2025 Progress note Author Eliot Hand [facility] Note Date/Time October 27, 2024 11:23am [facility] Medical Records Department [address] [place] [address] Progress Note - Surgery 10/27/24 1118 MR#: [id number] Acct: [id number] Name: GUSTAVO PATTON Rep #:[id number] : 1950 73 From: Eliot Greenwood PCP: Dr. Tracie Abreu MD Status:ADM IN Location: [place] [address] Subjective Subjective Patient seen and examined during AM rounds. He is preparing to leave for a walkwith physical therapy. He denies any present concerns. Objective Data Objective Data Vital Signs: Vital Signs Temp Pulse Resp BP Pulse Ox O2 Del Method O2 Flow Rate 97.5 F L 95 19 H 142/72 H 98 Room Air 2 10/27/24 09:29 10/27/24 09:29 10/27/24 09:29 10/27/24 09:10/27/24 09:10/27/24 09:29 10/27/24 10:50 Oxygen Flow Rate (L/min) 2 Oxygen Delivery Method Room Air Weight: 194 lb 14.218 oz Body Mass Index (BMI) 27.9 Intake & Output: Intake and Output for Last 24 Hours 10/25/24 10/26/24 10/27/24 23:59 23:59 23:59 Intake Total 760 / 760 1740.00 / 1860.00 344.02 / 344.02 Output Total 1200 / 1200 800 / 1150 650 / 650 Balance -440 / -440 940.00 / 710.00 -305.98 / -305.98 Lab / Micro Data 10/27/24 03:40 10/27/24 03:40 Labs: Laboratory Results - last 24 hr 10/26/24 11:48: POC Glucose 196 H 10/26/24 14:20: APTT 50.3 H 10/26/24 16:22: POC Glucose 180 H 10/26/24 21:18: APTT 73.6 H 10/26/24 21:23: POC Glucose 187 H 10/27/24 03:40: WBC 17.7 H, RBC 2.95 L, Hgb 8.9 L, Hct 26.9 L, MCV 91.2, MCH 30.2, MCHC 33.1, RDW Std Deviation 46.5 H, RDW Coeff of Sara 13.9, Plt Count 397,MPV 10.7, Immature Gran % (Auto) 4.300 H, Neut % (Auto) 72.5 H, Lymph % (Auto) 12.7 L, Scurry % (Auto) 5.9, Eos % (Auto) 3.8, Baso % (Auto) 0.8, Absolute Neuts (auto) 12.9 H, Absolute Lymphs (auto) 2.25, Nucleated RBC % 0, APTT 85.5 H, Sodium 139, Potassium 3.6, Chloride 104, Carbon Dioxide 19.8 L, Anion Gap 16 H, BUN 58 H, Creatinine 7.51 H*, Estim Creat Clear Calc 10.10 L, Est GFR (MDRD) Non-Af 7 L, BUN/Creatinine Ratio 7.7 L, Glucose 148 H, Calcium 8.7 10/27/24 06:41: POC Glucose 145 H 10/27/24 10:43: APTT 67.2 H Micro: Microbiology 10/25/24 10:03 Blood Culture (Wb) - Left Wrist Blood Culture - Preliminary No growth in 48 hours. 10/25/24 10:00 Blood Culture (Wb) - Left Hand Blood Culture - Preliminary No growth in 48 hours. 10/17/24 18:30 Blood Culture (Wb) - Anticubital Right Blood Culture - Final No growth in 5 days. 10/17/24 18:34 Blood Culture (Wb) - Anticubital Left Blood Culture - Final No growth in 5 days. 10/21/24 09:23 Stool Enteric Bacteriology - Final 10/21/24 09:23 Stool Clostridioides difficile (PCR) - Final 10/18/24 11:58 Urine Catheter - Larkin Urine Culture - Final Culture exhibits no growth. 10/19/24 10:15 Urine Catheter - Catheter Legionella Antigen - Final 10/19/24 10:15 Urine Catheter - Catheter Streptococcus pneumoniae Antigen (M- Final 10/19/24 17:55 Mucosa - Nasopharyngeal Respiratory Panel (PCR) - Final 10/19/24 18:11 Mucosa - Nose Coronavirus COVID-19 PCR - Final Radiography Diagnostic Testing: Radiology Impression Chest/Abdomen/Pelvis CT 10/26/24 09:54 IMPRESSION: 1. Thickened left pectoralis major muscle with intramuscular hematoma. This isnew since the prior study. 2. Cardiomegaly with mild vascular congestion. 3. Bilateral pleural effusions, small on the right and minimal on the left. 4. Improving dependent lung opacities bilaterally, likely atelectasis and/or infiltrates. 5. Nonobstructing left renal calculus. Reading Location: [facility] Physical Exam Const no apparent distress Constitutional Narrative: Oriented to person and place Neck Neck Narrative: Right IJ catheter insertion site clean and well-healing. Chest Chest Narrative: Left chest is examined over the area where CT designated intramuscular hematoma. There is nothing visible from the skin surface. Patient denies any tenderness with palpation over this area. Resp normal respiratory effort Resp Narrative: Mildly shallow inspiration Assessment & Plan Assessment/Plan (1) CHRISTY (acute kidney injury): (2) History of DVT (deep vein thrombosis): (3) Chronic anticoagulation: PLAN: Plan Patient exhibits stable rise in white blood cell count without apparent cause. [place] scan with CT was performed yesterday?no clear infectious etiology was detected, but patient was noted to have small intramuscular hematoma of the leftpectoralis muscle. I do not see any clinical evidence of this on exam today. Formal blood culture results remain pending. Patient remains afebrile and without any specific complaints. Empiric antibiotics were initiated with vancomycin and Zosyn yesterday. Prior temporary hemodialysis catheter site is well-healing. Review of patient's BMP, again, demonstrates worsening of his creatinine with persistent acidemia. However, he does continue to have some urine output and he does not appear particularly volume overloaded. His potassium remains within normal limits. Nephrology wrote yesterday that they did not find cause for imminent dialysis yesterday but will await their reevaluation today. Ideally patient's white blood cell count would be closer tonormal and we would have reassurance with negative blood cultures prior to proceeding with a catheter placement. No plans for catheter placement today. Please continue dialogue with surgery to work for optimal timing of catheter replacement and next dialysis. Eliot Hand MD General Surgery Endocrine Surgery Pager: [facility] [address] [place] [address], [address] [place] [id number] Office: [phone] Charges/Coding Visit Charges Inpatient E&M: 52497 Subs Hosp L2 10/27/24 1123 <Electronically signed by Eliot Hand MD> Cosigner Signature (if applicable): CC: ~ Signed [facility] Work Phone: 1(666) 962-951509-21-2025 Progress note Author Marlee Preston tr [facility] Note Date/Time October 27, 2024 2:47am [facility] Medical Records Department [address] [place] [address] Progress Note - Nephrology 10/26/242008 MR#: [id number] Acct: [id number] Name: GUSTAVO PATTON Rep #:[id number] : 1950 73 From: Marlee blood MD PCP: Dr. Tracie Abreu MD Status:ADM IN Location: [place] [address] Subjective Subjective Following for CHRISTY. Patient denies chest pain, dyspnea or nausea. Patient does have lower extremityedema which is unchanged. Objective Data Objective Data Vital Signs: Vital Signs Temp Pulse Resp BP Pulse Ox O2 Del Method O2 Flow Rate 97.7 F L 99 18 134/80 H 97 Room Air 2 10/26/24 15:20 10/26/24 15:20 10/26/24 15:20 10/26/24 15:20 10/26/24 15:20 10/26/24 15:20 10/26/24 11:56 Oxygen Flow Rate (L/min) 2 Oxygen Delivery Method Room Air Weight: 88.4 kg Body Mass Index (BMI) 27.9 Intake & Output: Intake and Output for Last 24 Hours 10/24/24 10/25/24 10/26/24 23:59 23:59 23:59 Intake Total 371.50 / 371.50 760 / 760 1685.71 / 1685.71 Output Total 1000 / 1000 1200 / 1200 800 / 800 Balance -628.50 / -628.50 -440 / -440 885.71 / 885.71 Lab / Micro Data 10/26/24 06:56 10/26/24 06:56 Labs: Laboratory Results - last 24 hr 10/22/24 08:15: Total Protein (PEP) 6.0, Albumin (PEP) 2.4 L, Globulin (PEP) 3.6, Albumin/Globulin (PEP) 0.7, Gccbh-9-Aoyxvuxmf 0.3, Vjpkd-3-Qjihemlue 1.2 H,Beta Globulins 1.0, Gamma Globulins 1.0, M-Ernie Comment:, PEP Note Comment, PEPInterpretation Comment, c-ANCA Antibody <1:20, Atypical p-ANCA <1:20, p-ANCA Antibody <1:20, Glomerular Base Memb Ab < 0.2, Complement C3 178 H, Complement C4 34 10/25/24 21:56: POC Glucose 148 H 10/26/24 00:38: APTT 42.9 H 10/26/24 06:31: POC Glucose 141 H 10/26/24 06:56: WBC 17.9 H, RBC 2.91 L, Hgb 8.8 L, Hct 26.7 L, MCV 91.8, MCH 30.2, MCHC 33.0, RDW Std Deviation 46.4 H, RDW Coeff of Sara 13.8, Plt Count 311,MPV 11.2, Neut % (Auto) Not Reportable, Absolute Neuts (auto) 13.6 H, Absolute Lymphs (auto) 2.69, Total Counted 100, Neutrophils % (Manual) 74 H, Band Neutrophils % 2, Lymphocytes % (Manual) 15 L, Monocytes % (Manual) 4, Eosinophils % (Manual) 2, Metamyelocytes % 2 H, Myelocytes % 1 H, Platelet Estimate ADEQUATE, Plt Morphology Comment GIANT, APTT 56.4 H, Sodium 139, Potassium 3.7, Chloride 106, Carbon Dioxide 18.5 L, Anion Gap 15, BUN 59 H, Creatinine 7.44 H*, Estim Creat Clear Calc 10.20 L, Est GFR (MDRD) Non-Af 7 L, BUN/Creatinine Ratio 7.9 L, Glucose 173 H, Calcium 8.5 10/26/24 11:48: POC Glucose 196 H 10/26/24 14:20: APTT 50.3 H 10/26/24 16:22: POC Glucose 180 H Micro: Microbiology 10/17/24 18:30 Blood Culture (Wb) - Anticubital Right Blood Culture - Final No growth in 5 days. 10/17/24 18:34 Blood Culture (Wb) - Anticubital Left Blood Culture - Final No growth in 5 days. 10/21/24 09:23 Stool Enteric Bacteriology - Final 10/21/24 09:23 Stool Clostridioides difficile (PCR) - Final 10/18/24 11:58 Urine Catheter - Larkin Urine Culture - Final Culture exhibits no growth. 10/19/24 10:15 Urine Catheter - Catheter Legionella Antigen - Final 10/19/24 10:15 Urine Catheter - Catheter Streptococcus pneumoniae Antigen (M- Final 10/19/24 17:55 Mucosa - Nasopharyngeal Respiratory Panel (PCR) - Final 10/19/24 18:11 Mucosa - Nose Coronavirus COVID-19 PCR - Final Radiography Diagnostic Testing: Radiology Impression Chest/Abdomen/Pelvis CT 10/26/24 09:54 IMPRESSION: 1. Thickened left pectoralis major muscle with intramuscular hematoma. This isnew since the prior study. 2. Cardiomegaly with mild vascular congestion. 3. Bilateral pleural effusions, small on the right and minimal on the left. 4. Improving dependent lung opacities bilaterally, likely atelectasis and/or infiltrates. 5. Nonobstructing left renal calculus. Reading Location: [facility] Physical Exam Narrative Alert and oriented no obvious distress s1s2 no murmurs lungs clear abdomen soft 2+ lower extremity pitting edema larkin + Assessment & Plan Assessment/Plan (1) CHRISTY (acute kidney injury): PLAN: Assessment/Plan: Patient is a 73-year-old male with past history of type 2 diabetes mellitus, hypertension, HFpEF, stroke, Parkinson's disease, and DVT. Patient presented to hospital on 10/17/2024 after falling at home. Patient is admitted to the hospital for treatment of acute hypoxic respiratory failure which was attributed to pneumonia and fluid overload. Patient was also found tohave rhabdom[place] [address] [place]/L on 10/18/2024. Acute kidney injury on chronic kidney disease stage G3a. Baseline serum creatinine appears to be around 1.46 mg/dL (July 2023). CHRISTY is likely due to ischemic/nephrotoxic ATN. Admission creatinine was 2.4, CPK level was 18,000. CPK levels have trended down however he had progressive renal failure. Serum creatinine peaked at 9.55 on 10/22. We also considered alternative etiologies for acute kidney injury, so serologies were sent. So far, serologiesare all negative. Patient was started on dialysis on 10/22/2024, dialyzed again 10/23 with 1 L fluidremoval. Temporary hemodialysis catheter was removed as plan was for patient to have tunneled hemodialysis catheter placed. However, tunneled dialysis catheter placement was postponed on 10/25/2024 becauseof leukocytosis and concern for occult infection. Although serum creatinine is still trending up without dialysis, there is no urgent need for dialysis today. Patient is not hyperkalemic severely acidotic or volume overloaded. He is not oliguric. Will recheck renal function, volume status, acid-base and electrolytes again tomorrow. Outpatient hemodialysis arrangements [facility] to [facility] when patient is ready to be discharged. 10/27/24 0247 <Electronically signed by Marlee Camargo MD> Cosigner Signature (if applicable): CC: ~ Signed [facility] Work Phone: [phone]) 691-612009-20-2025 Consult note Author Quinn Kline [facility] Note Date/Time October 26, 2024 3:18pm [facility] Medical Records Department [address] [place] [address] Pharmacokinetic/Renal -Consult 10/26/24 1506 MR#: [id number] Acct: [id number] Name: GUSTAVO PATTON Rep #:[id number] : 1950 73 From: Quinn santizo PCP: Dr. Tracie Abreu MD Status:ADM IN Location: [place] [address]- Consult Antibiotic Management Pharmacy has been consulted to manage selected antibiotic: Vancomycin Type of Intervention Type of Consult: New start Labs Labs: Sodium 139 mmol/L (133-145) 10/26/24 06:56 Potassium 3.7 mmol/L (3.3-5.1) 10/26/24 06:56 Chloride 106 mmol/L (98-108) 10/26/24 06:56 Carbon Dioxide 18.5 mmol/L (21.0-32.0) L 10/26/24 06:56 Anion Gap 15 (5-15) 10/26/24 06:56 BUN 59 mg/dL (4-19) H 10/26/24 06:56 Creatinine 7.44 mg/dL (0.70-1.20) H* 10/26/24 06:56 Est GFR (MDRD) Non-Af 7 (>60) L 10/26/24 06:56 BUN/Creatinine Ratio 7.9 RATIO (10-20) L 10/26/24 06:56 Glucose 173 mg/dL (70-99) H 10/26/24 06:56 Microbiology Microbiology: Microbiology 10/17/24 18:30 Blood Culture (Wb) - Anticubital Right Blood Culture - Final No growth in 5 days. 10/17/24 18:34 Blood Culture (Wb) - Anticubital Left Blood Culture - Final No growth in 5 days. 10/21/24 09:23 Stool Enteric Bacteriology - Final 10/21/24 09:23 Stool Clostridioides difficile (PCR) - Final 10/18/24 11:58 Urine Catheter - Larkin Urine Culture - Final Culture exhibits no growth. 10/19/24 10:15 Urine Catheter - Catheter Legionella Antigen - Final 10/19/24 10:15 Urine Catheter - Catheter Streptococcus pneumoniae Antigen (M- Final 10/19/24 17:55 Mucosa - Nasopharyngeal Respiratory Panel (PCR) - Final 10/19/24 18:11 Mucosa - Nose Coronavirus COVID-19 PCR - Final Dosing Weight Weight used for dosin.4 kg Estimated Creatinine Clearance Estimated Creatinine Clearance: on HD Goal Trough Goal Trough: 15-20 mcg/mL Pharmacy Plan for Drug Dosing Pharmacy Plan for Drug Dosing: Give initial load dose (25mg/kg) of 2000mg IV x1 today. It is not known yet when the next dialysis session will be but when that is known pharmacy will enter the next dose of vancomycin (7.5mg/kg based on the patient's weight) to begiven after the next HD session. Subsequent doses after that will be guided by pre-dialysis random vanc levels. Pharmacy Service will continue to monitor and adjust dosing as required. Date/Time Labs Ordered Labs to be done on [date and time ordered]: unsure at this time 10/26/24 0471 <Electronically signed by Quinn Bolivar erg> Date _ Quinn Kline 10/26/24 1518 <Electronically signed by Rosmery galeas MD> Cosigner Signature (if applicable): Date Rosmery Lake MD CC: ~ Signed [facility] Work Phone: 1(459) 289-756009-20-2025 Progress note [facility] Note Date/Time October 26, 2024 3:18pm [facility] Medical Records Department [address] [place] [address] Progress Note 10/26/24 1151 MR#: [id number] Acct: [id number] Name: GUSTAVO PATTON Rep #:[id number] : 1950 73 From: Rosmery Lake MD PCP: Dr. Tracie Abreu MD Status:ADM IN Location: [place] [address] Subjective Subjective Patient seen and examined with his nurse by his bedside. He was comfortably sitting up in bed eating breakfast. He had no complaints. He denied any fever,chills, shortness of breath, palpitations, nausea vomiting or any other symptoms. Review of systems otherwise negative. He has remained hemodynamically stable. WBC has trended up further to 17.9 today. Objective Data Objective Data Vital Signs: Vital Signs Temp Pulse Resp BP Pulse Ox O2 Del Method O2 Flow Rate 98.5 F 99 16 136/75 H 97 Room Air 2 10/26/24 09:20 10/26/24 09:20 10/26/24 09:20 10/26/24 09:20 10/26/24 09:10/26/24 09:10/26/24 08:35 Oxygen Flow Rate (L/min) 2 Oxygen Delivery Method Room Air Weight: 194 lb 14.218 oz Body Mass Index (BMI) 27.9 Intake & Output: Intake and Output for Last 24 Hours 10/24/24 10/25/24 10/26/24 23:59 23:59 23:59 Intake Total 371.50 / 371.50 760 / 760 258.91 / 258.91 Output Total 1000 / 1000 1200 / 1200 450 / 450 Balance -628.50 / -628.50 -440 / -440 -191.09 / -191.09 Lab / Micro Data 10/26/24 06:56 10/26/24 06:56 Labs: Laboratory Results - last 24 hr 10/22/24 08:15: Total Protein (PEP) 6.0, Albumin (PEP) 2.4 L, Globulin (PEP) 3.6, Albumin/Globulin (PEP) 0.7, Fhdcc-4-Ubgsynkek 0.3, Hgcuz-0-Kkovytpaa 1.2 H,Beta Globulins 1.0, Gamma Globulins 1.0, M-Ernie Comment:, PEP Note Comment, PEPInterpretation Comment, c-ANCA Antibody <1:20, Atypical p-ANCA <1:20, p-ANCA Antibody <1:20, Glomerular Base Memb Ab < 0.2, Complement C3 178 H, Complement C4 34 10/25/24 11:17: POC Glucose 183 H 10/25/24 16:25: POC Glucose 257 H 10/25/24 21:56: POC Glucose 148 H 10/26/24 00:38: APTT 42.9 H 10/26/24 06:31: POC Glucose 141 H 10/26/24 06:56: WBC 17.9 H, RBC 2.91 L, Hgb 8.8 L, Hct 26.7 L, MCV 91.8, MCH 30.2, MCHC 33.0, RDW Std Deviation 46.4 H, RDW Coeff of Sara 13.8, Plt Count 311,MPV 11.2, Neut % (Auto) Not Reportable, Absolute Neuts (auto) 13.6 H, Absolute Lymphs (auto) 2.69, Total Counted 100, Neutrophils % (Manual) 74 H, Band Neutrophils % 2, Lymphocytes % (Manual) 15 L, Monocytes % (Manual) 4, Eosinophils % (Manual) 2, Metamyelocytes % 2 H, Myelocytes % 1 H, Platelet Estimate ADEQUATE, Plt Morphology Comment GIANT, APTT 56.4 H, Sodium 139, Potassium 3.7, Chloride 106, Carbon Dioxide 18.5 L, Anion Gap 15, BUN 59 H, Creatinine 7.44 H*, Estim Creat Clear Calc 10.20 L, Est GFR (MDRD) Non-Af 7 L, BUN/Creatinine Ratio 7.9 L, Glucose 173 H, Calcium 8.5 Micro: Microbiology 10/17/24 18:30 Blood Culture (Wb) - Anticubital Right Blood Culture - Final No growth in 5 days. 10/17/24 18:34 Blood Culture (Wb) - Anticubital Left Blood Culture - Final No growth in 5 days. 10/21/24 09:23 Stool Enteric Bacteriology - Final 10/21/24 09:23 Stool Clostridioides difficile (PCR) - Final 10/18/24 11:58 Urine Catheter - Larkin Urine Culture - Final Culture exhibits no growth. 10/19/24 10:15 Urine Catheter - Catheter Legionella Antigen - Final 10/19/24 10:15 Urine Catheter - Catheter Streptococcus pneumoniae Antigen (M- Final 10/19/24 17:55 Mucosa - Nasopharyngeal Respiratory Panel (PCR) - Final 10/19/24 18:11 Mucosa - Nose Coronavirus COVID-19 PCR - Final Physical Exam Const alert, oriented x3, no apparent distress and average body habitus General Appearance: cooperative HEENT normocephalic, head/scalp atraumatic, hearing grossly normal bilaterally, moist oral mucous membranes and oropharynx normal Eyes EOMs intact bilaterally and conjunctivae normal Eyes Narrative: No scleral icterus Neck no lymphadenopathy, supple and no JVD Neck Narrative: Trachea midline Lymph Lymphatic: no lymphedema noted Resp Resp Narrative: Mildly diminished breath sounds bibasilar. No wheezes or crackles. on room air. Cardio regular rate, regular rhythm, S1 normal heart sound, S2 normal heart sound and no murmurs GI normal to inspection, nondistended, normoactive bowel sounds, soft to palpation,non-tender and non-distended Extremity normal capillary refill, no clubbing, cyanosis or edema and no calf tenderness General Extremity: no tenderness to palpation of joints or extremities Skin General Skin Exam: no breakdown Neuro CN's II-XII intact bilaterally, moves all extremities and no focal motor deficits Neuro Narrative: Bradykinesia, speech is clear and normal though he often appears hesitant in speech and movement. Sensorium / Orientation: awake and alert Motor Exam: general weakness Psych thought process normal and cooperative Psych Narrative: flat affect Mood & Affect: flat affect Assessment & Plan Assessment/Plan (1) High anion gap metabolic acidosis: (2) Urethral stricture: (3) Urinary retention: (4) Fall: QUALIFIERS: Encounter type: initial encounter Qualified Code(s): W19.XXXA - Unspecified fall, initial encounter (5) Rhabdomyolysis: QUALIFIERS: Rhabdomyolysis type: non-traumatic Qualified Code(s):M62.82 - Rhabdomyolysis PLAN: Plan #Acute hypoxic respiratory failure due to multilobar pneumonia and fluid overload * now on room air. Chest x-ray done showed vascular congestion. * CT of the chest showed multilobar pneumonia on admission.Completed a course of IV zosyn yesterday from 10/19/2024 till 10/24/2024 * Urine for strep and Legionella antigens were negative. Speech therapy on board in light of history of stroke and Parkinson's disease. * COVID and respiratory panels were negative. * should improve with dialysis * wbc up to 17.9 from 14.7 yesterday * Urinalysis was not very impressive for UTI. Bacteria was negative but he did have elevated leukocyte esterase and WBC. There were no nitrites. Urine cultures and blood cultures are pending. * In the bed to further elucidate the cause of this elevated white cell count, CT of the chest abdomen and pelvis was done which is showing thickened left pectoralis major muscle with intramuscular hematoma which is new since prior study cardiomegaly with mild vascular congestion, bilateral pleural effusions small on the right and minimal on the left and improving dependent lung opacities bilaterally likely atelectasis and/or infiltrates and nonobstructing left renal calculus. The intramuscular hematoma is likely due to the dialysis catheter that was pulled. * Patient started on IV vancomycin and Zosyn empirically. Blood cultures pending. * * #CHRISTY on CKD stage IIIb * Commenced on dialysis. * Management as per nephrology. * on bicarb. * .Nephrology patient need continued dialysis so general surgery contacted for insertion of permanent dialysis catheter. Will hold heparin * General Surgery not during the dialysis catheter today because of the elevated WBC patient started empirically on broad-spectrum antibiotics as above. * Discussed with Dr. Hand. If nephrology deems that patient will need dialysis then a temporary dialysis catheter will be inserted tomorrow. Per Dr. Hand nobody available to do the permanent dialysis catheter on Monday. * #Rhabdomyolysis: * resolved. * #Acute anemia: Hemoglobin today is 8.8. Remained stable. Will monitor. #Hematuria due to urethral stricture * Had urinary retention and urology had to be consulted to place a Larkin as he could not be placed in the ED. Having some mild hematuria but is clearing up. Likely traumatic as a result of passing the Larkin. * To leave Larkin in situ on discharge and to follow-up with urology on outpatient basis. * #Type 2 diabetes mellitus: A1c is 8.1. On insulin sliding scale. Accuhecks ACHS. Usually on metformin at home which is currently on hold. #History of DVT: Has IVC filter in situ. on heparin drip. 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 Lives alone currently. Family looking at getting him into assisted living. On aspirin. PT OT on board. #Benign essential hypertension: On metoprolol. Lisinopril held due to CHRISTY on CKD #Hyperlipidemia: On statin #Heart failure with reduced ejection fraction: Not in exacerbation but is fluid overloaded due to CHRISTY. Dialysis helping with fluid removal #Parkinson's disease with recent fall: PT OT on board. On levodopa carbidopa. #DVT prophylaxis: on heparin drip Disposition: will need placement Charges/Coding Visit Charges Inpatient E&M: 50389 Subs Hosp L2 10/26/24 1518 <Electronically signed by Rosmery Lake MD> Rosmery Lake MD Cosigner Signature (if applicable): CC: ~ Signed [facility] Work Phone: 1(882) 249-946209-20-2025 Radiology Diagnostic study [facility]09-20-2025 Progress note Author Eliot Hand [facility] Note Date/Time October 26, 2024 9:13am [facility] Medical Records Department [address] [place] [address] Progress Note - Surgery 10/26/2425 MR#: [id number] Acct: [id number] Name: GUSTAVO PATTON Rep #:[id number] : 1950 73 From: Eliot Greenwood PCP: Dr. Tracie Abreu MD Status:ADM IN Location: [place] [address] Subjective Subjective Patient seen and examined during AM rounds. He reports feeling well overall. He denies any specific complaints. Objective Data Objective Data Vital Signs: Vital Signs Temp Pulse Resp BP Pulse Ox O2 Del Method O2 Flow Rate 98.3 F 95 20 H 146/76 H 93 Nasal Cannula 2 10/26/24 03:20 10/26/24 03:20 10/26/24 03:20 10/26/24 03:20 10/26/24 03:20 10/26/24 03:24 10/26/24 03:24 Oxygen Flow Rate (L/min) 2 Oxygen Delivery Method Nasal Cannula Weight: 194 lb 14.218 oz Body Mass Index (BMI) 27.9 Intake & Output: Intake and Output for Last 24 Hours 10/24/24 10/25/24 10/26/24 23:59 23:59 23:59 Intake Total 371.50 / 371.50 760 / 760 258.91 / 258.91 Output Total 1000 / 1000 1200 / 1200 450 / 450 Balance -628.50 / -628.50 -440 / -440 -191.09 / -191.09 Lab / Micro Data 10/26/24 06:56 10/26/24 06:56 Labs: Laboratory Results - last 24 hr 10/22/24 08:15: Total Protein (PEP) 6.0, Albumin (PEP) 2.4 L, Globulin (PEP) 3.6, Albumin/Globulin (PEP) 0.7, Tbcvk-0-Wrfhqwdco 0.3, Uheyw-7-Wiztxufed 1.2 H,Beta Globulins 1.0, Gamma Globulins 1.0, M-Ernie Comment:, PEP Note Comment, PEPInterpretation Comment, c-ANCA Antibody <1:20, Atypical p-ANCA <1:20, p-ANCA Antibody <1:20, Glomerular Base Memb Ab < 0.2, Complement C3 178 H, Complement C4 34 10/25/24 04:47: Procalcitonin 0.33 H 10/25/24 10:15: Urine Color Yellow, Urine Clarity Clear, Urine pH 6.0, Ur Specific [place] 1.010, Urine Protein 100 H, Urine Glucose (UA) Normal, Urine Ketones Negative, Urine Occult Blood 250 H, Urine Nitrite Negative, Urine Bilirubin Negative, Urine Urobilinogen Normal, Ur Leukocyte Esterase 500 H, Urine RBC > 100 SEEN, Urine WBC 10-25 SEEN, Ur Squamous Epith Cells 0-5 SEEN, Urine Bacteria 0 SEEN, Urine Mucus 0 SEEN 10/25/24 11:17: POC Glucose 183 H 10/25/24 16:25: POC Glucose 257 H 10/25/24 21:56: POC Glucose 148 H 10/26/24 00:38: APTT 42.9 H 10/26/24 06:31: POC Glucose 141 H 10/26/24 06:56: WBC 17.9 H, RBC 2.91 L, Hgb 8.8 L, Hct 26.7 L, MCV 91.8, MCH 30.2, MCHC 33.0, RDW Std Deviation 46.4 H, RDW Coeff of Sara 13.8, Plt Count 311,MPV 11.2, Neut % (Auto) Not Reportable, Absolute Neuts (auto) 13.6 H, Absolute Lymphs (auto) 2.69, Total Counted 100, Neutrophils % (Manual) 74 H, Band Neutrophils % 2, Lymphocytes % (Manual) 15 L, Monocytes % (Manual) 4, Eosinophils % (Manual) 2, Metamyelocytes % 2 H, Myelocytes % 1 H, Platelet Estimate ADEQUATE, Plt Morphology Comment GIANT, APTT 56.4 H Micro: Microbiology 10/17/24 18:30 Blood Culture (Wb) - Anticubital Right Blood Culture - Final No growth in 5 days. 10/17/24 18:34 Blood Culture (Wb) - Anticubital Left Blood Culture - Final No growth in 5 days. 10/21/24 09:23 Stool Enteric Bacteriology - Final 10/21/24 09:23 Stool Clostridioides difficile (PCR) - Final 10/18/24 11:58 Urine Catheter - Larkin Urine Culture - Final Culture exhibits no growth. 10/19/24 10:15 Urine Catheter - Catheter Legionella Antigen - Final 10/19/24 10:15 Urine Catheter - Catheter Streptococcus pneumoniae Antigen (M- Final 10/19/24 17:55 Mucosa - Nasopharyngeal Respiratory Panel (PCR) - Final 10/19/24 18:11 Mucosa - Nose Coronavirus COVID-19 PCR - Final Radiography Diagnostic Testing: Radiology Impression Chest X-Ray 10/25/24 11:03 IMPRESSION: Mild degree of bibasilar atelectasis. Reading Location: [facility] Physical Exam Const no apparent distress Constitutional Narrative: Oriented to person and place Neck Neck Narrative: Right IJ catheter insertion site bandages removed and beneath the site is healing appropriately with some mild crusted blood. Resp Resp Narrative: Mildly shallow inspiration GI GI Narrative: Nondistended, soft, nontender to palpation x 4 quadrants Assessment & Plan Assessment/Plan (1) CHRISTY (acute kidney injury): (2) History of DVT (deep vein thrombosis): (3) Chronic anticoagulation: PLAN: Plan Patient exhibits further rise in white blood cell count without apparent cause. Formal blood culture results remain pending. Otherwise patient is afebrile and without any specific complaints. Prior temporary hemodialysis catheter site is well-healing. Review of patient's BMP demonstrates worsening of his creatinine and worsened acidemia. He does continue to have some urine output. He does notappear particularly volume overloaded and his potassium remains within normal limits. Discussed with hospitalist service and plans are tentatively in place to begin empiric antibiotic coverage. With rise in WBC and ANC I remain concerned about placing a tunneled line and risk for propagating infection/bacteremia. Please continue dialogue with surgery to work for optimaltiming of catheter replacement and next dialysis. Eliot Hand MD General Surgery Endocrine Surgery Pager: [facility] [address] [place] [address], [address] [place] [address] Office: [phone] Charges/Coding Visit Charges Inpatient E&M: 32201 Subs Hosp L2 10/26/24 0913 <Electronically signed by Eliot Hand MD> Cosigner Signature (if applicable): CC: ~ Signed [facility] Work Phone: [phone] 838-998909-19-2025 Progress note Author Rosmery Lake [facility] Note Date/Time October 25, 2024 5:20pm [facility] Medical Records Department [address] [place] [address] Progress Note 10/25/24 1011 MR#: [id number] Acct: [id number] Name: GUSTAVO PATTON Rep #:[id number] : 1950 73 From: Rosmery Lake MD PCP: Dr. Tracie Abreu MD Status:ADM IN Location: [place] [id number] Subjective Subjective Patient seen and examined this morning. He was on room air and had no complaints. He denied any pain, any fever or chills, cough, shortness of breath, nausea or vomiting or any other symptoms. WBC is up to 14.7 this morning. His heparin drip was held last night at 10 PM and he had the dialysis catheter pulled today. Now however general surgery saying that due to the rising WBC to 14.7 from around 12 yesterday, they may not be able to do the permanent dialysis catheter. Patient has no clear foci of infection. He did have a chest x-ray done yesterday due to shortness of breath and it was only showed mild pulmonary vascular congestion. As stated he is on room air today. Review of systems otherwise negative. Objective Data Objective Data Vital Signs: Vital Signs Temp Pulse Resp BP Pulse Ox O2 Del Method O2 Flow Rate 98.6 F 88 19 H 132/74 H 91 Room Air 2 10/25/24 05:27 10/25/24 05:27 10/25/24 05:27 10/25/24 05:27 10/25/24 05:27 10/25/24 08:44 10/24/24 12:49 Oxygen Flow Rate (L/min) 2 Oxygen Delivery Method Room Air Weight: 194 lb 14.218 oz Body Mass Index (BMI) 27.9 Intake & Output: Intake and Output for Last 24 Hours 10/23/24 10/24/24 10/25/24 23:59 23:59 23:59 Intake Total 796.57 / 796.57 371.50 / 371.50 0 / 0 Output Total 1780 / 1780 1000 / 1000 200 / 200 Balance -983.43 / -983.43 -628.50 / -628.50 -200 / -200 Lab / Micro Data 10/25/24 04:47 10/25/24 04:47 Labs: Laboratory Results - last 24 hr 10/24/24 11:03: APTT 55.2 H 10/24/24 12:16: POC Glucose 213 H 10/24/24 16:44: POC Glucose 201 H 10/24/24 17:00: APTT 44.9 H 10/24/24 22:56: POC Glucose 163 H 10/25/24 04:47: WBC 14.7 H, RBC 3.07 L, Hgb 9.3 L, Hct 28.0 L, MCV 91.2, MCH 30.3, MCHC 33.2, RDW Std Deviation 45.8 H, RDW Coeff of Sara 13.8, Plt Count 364,MPV 10.5, Neut % (Auto) Not Reportable, Absolute Neuts (auto) 11.8 H, Absolute Lymphs (auto) 2.06, Total Counted 100, Neutrophils % (Manual) 80 H, Lymphocytes % (Manual) 14 L, Monocytes % (Manual) 2, Eosinophils % (Manual) 3, Myelocytes % 1 H, Toxic Granulation 1+, Platelet Estimate ADEQUATE, RBC Morphology NORM C+C, APTT 28.9, Sodium 142, Potassium 3.4, Chloride 107, Carbon Dioxide 21.5, Anion Gap 14, BUN 55 H, Creatinine 6.53 H, Estim Creat Clear Calc 11.62 L, Est GFR (MDRD) Non-Af 8 L, BUN/Creatinine Ratio 8.4 L, Glucose 164 H, Calcium 8.5 10/25/24 06:41: POC Glucose 142 H Micro: Microbiology 10/17/24 18:30 Blood Culture (Wb) - Anticubital Right Blood Culture - Final No growth in 5 days. 10/17/24 18:34 Blood Culture (Wb) - Anticubital Left Blood Culture - Final No growth in 5 days. 10/21/24 09:23 Stool Enteric Bacteriology - Final 10/21/24 09:23 Stool Clostridioides difficile (PCR) - Final 10/18/24 11:58 Urine Catheter - Larkin Urine Culture - Final Culture exhibits no growth. 10/19/24 10:15 Urine Catheter - Catheter Legionella Antigen - Final 10/19/24 10:15 Urine Catheter - Catheter Streptococcus pneumoniae Antigen (M- Final 10/19/24 17:55 Mucosa - Nasopharyngeal Respiratory Panel (PCR) - Final 10/19/24 18:11 Mucosa - Nose Coronavirus COVID-19 PCR - Final Radiography Diagnostic Testing: Radiology Impression Renal Ultrasound 10/22/24 12:16 IMPRESSION: NORMAL RENAL ULTRASOUND. Reading Location: [facility] Physical Exam Const alert, oriented x3 and no apparent distress Constitutional Narrative: flat affect, episodic confusion General Appearance: cooperative HEENT normocephalic, head/scalp atraumatic, hearing grossly normal bilaterally, moist oral mucous membranes and oropharynx normal Eyes PERRL, EOMs intact bilaterally and conjunctivae normal Eyes Narrative: No scleral icterus Neck no lymphadenopathy, supple and no JVD Neck Narrative: Trachea midline Lymph Lymphatic: no lymphedema noted Resp No normal respiratory effort Resp Narrative: Mildly diminished breath sounds bibasilar. No wheezes or crackles. on room air. Effort and Inspection: tachypneic Auscultation: Negative for rales, rhonchi or wheezes Cardio regular rate, regular rhythm, S1 normal heart sound and S2 normal heart sound GI normal to inspection, nondistended, normoactive bowel sounds and soft to palpation Extremity normal capillary refill, no clubbing, cyanosis or edema and no calf tenderness Extremity Narrative: 2+ pedal and radial pulses, trace pitting edema bilateral lower and upper extremities especially in dependent areas, no cyanosis or clubbing General Extremity: no tenderness to palpation of joints or extremities Skin Skin Narrative: dialysis catheter in situ General Skin Exam: no breakdown Neuro oriented x3, CN's II-XII intact bilaterally, moves all extremities and no focal motor deficits Neuro Narrative: Bradykinesia, speech is clear and normal though he often appears hesitant in speech and movement. Sensorium / Orientation: awake, alert, oriented to person, oriented to place andoriented to time Speech: speech normal Motor Exam: general weakness Psych thought process normal, cooperative and affect normal Psych Narrative: flat affect Mood & Affect: flat affect Assessment & Plan Assessment/Plan (1) High anion gap metabolic acidosis: (2) Urethral stricture: (3) Urinary retention: (4) Fall: QUALIFIERS: Encounter type: initial encounter Qualified Code(s): W19.XXXA - Unspecified fall, initial encounter (5) Rhabdomyolysis: QUALIFIERS: Rhabdomyolysis type: non-traumatic Qualified Code(s):M62.82 - Rhabdomyolysis PLAN: Plan #Acute hypoxic respiratory failure due to multilobar pneumonia and fluid overload * was on 2L today but had to go up to 6L. Chest x-ray done showed vascular congestion. * CT of the chest showed multilobar pneumonia on admission.Completed a course of IV zosyn yesterday from 10/19/2024 till 10/24/2024 * Urine for strep and Legionella antigens were negative. Speech therapy on board in light of history of stroke and Parkinson's disease. * COVID and respiratory panels were negative. * should improve with dialysis * wbc is up to 14.7 today from ~ 12 yesterday. Patient asymptomatic. Will get urinalysis and blood cultures as well as procalcitonin. Hold off on commencing antibiotics now. #CHRISTY on CKD stage IIIb * Commenced on dialysis. * Management as per nephrology. * on bicarb. * .Nephrology patient need continued dialysis so general surgery contacted for insertion of permanent dialysis catheter. Will hold heparin * General Surgery not during the dialysis catheter today because of the elevated WBC. Per nephrology patient may be able to hold off her dialysis till Monday. If there is a need for dialysis will call general surgery department temporary dialysis catheter. * #Rhabdomyolysis: * resolved. * #Acute anemia: Hemoglobin today is 9.8. Remained stable. Will monitor. #Hematuria due to urethral stricture * Had urinary retention and urology had to be consulted to place a Larkin as he could not be placed in the ED. Having some mild hematuria but is clearing up. Likely traumatic as a result of passing the Larkin. * To leave Larkin in situ on discharge and to follow-up with urology on outpatient basis. * #Type 2 diabetes mellitus: A1c is 8.1. On insulin sliding scale. Accuhecks ACHS. Usually on metformin at home which is currently on hold. #History of DVT: Has IVC filter in situ. on heparin drip. 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 Lives alone currently. Family looking at getting him into assisted living. On aspirin. PT OT on board. #Benign essential hypertension: On metoprolol. Lisinopril held due to CHRISTY on CKD #Hyperlipidemia: On statin #Heart failure with reduced ejection fraction: Not in exacerbation but is fluid overloaded due to CHRISTY. Dialysis helping with fluid removal #Parkinson's disease with recent fall: PT OT on board. On levodopa carbidopa. #DVT prophylaxis: Currently on heparin drip which was held yesterday; will resume tonight. Disposition: will need placement Charges/Coding Visit Charges Inpatient E&M: 19253 Subs Hosp L2 10/25/24 5914 <Electronically signed by Rosmery Lake MD> Rosmery Lake MD Cosigner Signature (if applicable): CC: ~ Signed [facility] Work Phone: 1(236) 496-923909-19-2025 Progress note Author Cece Dennis [facility] Note Date/Time October 25, 2024 10:22am [facility] Medical Records Department [address] [place] [address] Progress Note 10/25/24 0926 MR#: [id number] Acct: [id number] Name: GUSTAVO PATTON Rep #:[id number] : 1950 73 From: Cece Dennis MD PCP: Dr. Tracie Abreu MD Status:ADM IN Location: [place] [id number]- [id number] Progress Note Patient with blood count up to 14.7-unsure of source will plan to get a UA, chest x-ray, blood cultures. However temporary line has been removed at 7 AM. Patient's creatinine is currently 6.53 from 5.63 plan to have dialysis today. Tunneled line scheduled at 1130 to noon. Patient could be at a higher risk for potential infection with a permanent catheter versus replacing the temporary catheter and needing an additional tunnel in the future. Will plan to discuss with nephrology, hospitalist, patient/family. Discussed with dialysis they would be able to do dialysis only tomorrow morning until noon. Will plan to cancel the tunneled line placement today discussed with Dr. Lake. Discussed with Tristin [employer] from nephrology thinks that he should be okay until Monday. She is aware that we do not have the abilities of doing dialysis on Monday at all and it is Monday would need to be prescheduled starting at 9 AM and ending at about noon. Will also plan to talk with patient's sister did try to call but got voicemail. Will discuss with Dr. Hand as he will be rounding over the weekend. Tristin also plans to also discussed with Dr. Monreal who will berounding for nephrology over the weekend Cece Dennis M.D. Pager: [phone] [facility] [address] [place] [address], [facility], [address] [place] [address] Office: [phone] 10/25/24 1022 <Electronically signed by Cece Dennis MD> Cece Dennis MD Cosigner Signature (if applicable): CC: ~ Signed [facility] Work Phone: 1(359) 941-683709-19-2025 Radiology Diagnostic study [facility]09-19-2025 Progress note Author Anna Condon [facility] Note Date/Time October 24, 2024 11:19pm [facility] Medical Records Department [address] [place] [address] Progress Note - Hospitalist 10/24/247 MR#: [id number] Acct: [id number] Name: GUSTAVO PATTON Rep #:[id number] : 1950 73 From: Anna Muller PCP: Dr. Tracie Abreu MD Status:ADM IN Location: [place] [address] Hospitalist Note Stopped heparin drip per surgery's note to prep for dialysis nurse to pull temporary HD cath tomorrow at 0700, and tunneled cath placement tomorrow around noon. 10/24/242318 <Electronically signed by Anna HERRMANN> Cosigner Signature (if applicable): CC: ~ Signed [facility] Work Phone: 1(260) 554-876409-18-2025 Progress note [facility] Note Date/Time October 24, 2024 4:05pm [facility] Medical Records Department [address] [place] [address] Progress Note 10/24/24 1157 MR#: [id number] Acct: [id number] Name: GUSTAVO PATTON Rep #:[id number] : 1950 73 From: Rosmery Lake MD PCP: Dr. Tracie Abreu MD Status:ADM IN Location: [place] [address] Subjective Subjective Patient seen and examined. He had no active complaints. Review of systems otherwise negative. Objective Data Objective Data Vital Signs: Vital Signs Temp Pulse Resp BP Pulse Ox O2 Del Method O2 Flow Rate 97.8 F 87 28 H 134/68 H 93 Room Air 5 10/24/24 09:04 10/24/24 09:04 10/24/24 09:04 10/24/24 09:04 10/24/24 09:04 10/24/24 09:05 10/24/24 09:04 Oxygen Flow Rate (L/min) 5 Oxygen Delivery Method Room Air Weight: 166 lb 3.657 oz Body Mass Index (BMI) 23.8 Intake & Output: Intake and Output for Last 24 Hours 10/22/24 10/23/24 10/24/24 23:59 23:59 23:59 Intake Total 280.62 / 530.62 796.57 / 796.57 196.31 / 196.31 Output Total 1230 / 1330 1780 / 1780 450 / 450 Balance -949.38 / -799.38 -983.43 / -983.43 -253.69 / -253.69 Lab / Micro Data 10/24/24 04:29 10/24/24 04:29 Labs: Laboratory Results - last 24 hr 10/22/24 08:15: Double Strand DNA Ab <1 10/23/24 11:53: POC Glucose 181 H 10/23/24 12:08: APTT 39.8 H 10/23/24 17:01: POC Glucose 145 H 10/23/24 19:10: APTT 113.7 H* 10/23/24 22:40: POC Glucose 196 H 10/24/24 04:29: WBC 12.2 H, RBC 3.23 L, Hgb 9.8 L, Hct 29.2 L, MCV 90.4, MCH 30.3, MCHC 33.6, RDW Std Deviation 45.0 H, RDW Coeff of Sara 13.7, Plt Count 351,MPV 10.5, Neut % (Auto) Not Reportable, Absolute Neuts (auto) 9.0 H, Absolute Lymphs (auto) 1.46, Total Counted 100, Neutrophils % (Manual) 74 H, Lymphocytes % (Manual) 12 L, Monocytes % (Manual) 4, Eosinophils % (Manual) 6 H, Metamyelocytes % 3 H, Myelocytes % 1 H, Platelet Estimate ADEQUATE, Anisocytosis 1+, Ovalocytes 1+, APTT 54.1 H, Sodium 141, Potassium 3.6, Chloride 106, Carbon Dioxide 22.2, Anion Gap 14, BUN 48 H, Creatinine 5.62 H, Estim Creat Clear Calc 12.45 L, Est GFR (MDRD) Non-Af 10 L, BUN/Creatinine Ratio 8.5 L, Glucose 171 H, Calcium 8.6 10/24/24 06:27: POC Glucose 141 H 10/24/24 11:03: APTT 55.2 H Micro: Microbiology 10/17/24 18:30 Blood Culture (Wb) - Anticubital Right Blood Culture - Final No growth in 5 days. 10/17/24 18:34 Blood Culture (Wb) - Anticubital Left Blood Culture - Final No growth in 5 days. 10/21/24 09:23 Stool Enteric Bacteriology - Final 10/21/24 09:23 Stool Clostridioides difficile (PCR) - Final 10/18/24 11:58 Urine Catheter - Larkin Urine Culture - Final Culture exhibits no growth. 10/19/24 10:15 Urine Catheter - Catheter Legionella Antigen - Final 10/19/24 10:15 Urine Catheter - Catheter Streptococcus pneumoniae Antigen (M- Final 10/19/24 17:55 Mucosa - Nasopharyngeal Respiratory Panel (PCR) - Final 10/19/24 18:11 Mucosa - Nose Coronavirus COVID-19 PCR - Final Radiography Diagnostic Testing: Radiology Impression Chest X-Ray 10/24/24 09:25 IMPRESSION: Mild bilateral pulmonary vascular congestion. Reading Location: [facility] Physical Exam Const alert, no apparent distress and average body habitus Constitutional Narrative: flat affect, episodic confusion General Appearance: cooperative HEENT normocephalic, head/scalp atraumatic, hearing grossly normal bilaterally, moist oral mucous membranes and oropharynx normal Eyes EOMs intact bilaterally and conjunctivae normal Eyes Narrative: No scleral icterus Neck supple and no JVD Neck Narrative: Trachea midline Lymph Lymphatic: no lymphedema noted Resp Resp Narrative: Mildly diminished breath sounds bibasilar. No wheezes or crackles. Was on 2L of oxygen by nasal canula this morning but subsequently went up to 6 L. Tachypneic and breathing at 28/min Effort and Inspection: tachypneic Cardio regular rate, regular rhythm, S1 normal heart sound, S2 normal heart sound and no murmurs GI normal to inspection, nondistended, normoactive bowel sounds, soft to palpation,non-tender and non-distended Extremity normal capillary refill, no clubbing, cyanosis or edema and no calf tenderness General Extremity: no tenderness to palpation of joints or extremities Skin Skin Narrative: dialysis catheter in situ General Skin Exam: no breakdown Neuro oriented x3 and moves all extremities Neuro Narrative: Bradykinesia, speech is clear and normal though he often appears hesitant in speech and movement. Sensorium / Orientation: awake and alert Speech: speech normal Motor Exam: general weakness Psych Psych Narrative: flat affect Mood & Affect: flat affect Assessment & Plan Assessment/Plan (1) High anion gap metabolic acidosis: (2) Urethral stricture: (3) Urinary retention: (4) Fall: QUALIFIERS: Encounter type: initial encounter Qualified Code(s): W19.XXXA - Unspecified fall, initial encounter (5) Rhabdomyolysis: QUALIFIERS: Rhabdomyolysis type: non-traumatic Qualified Code(s):M62.82 - Rhabdomyolysis PLAN: Plan #Acute hypoxic respiratory failure due to multilobar pneumonia and fluid overload * was on 2L today but had to go up to 6L. Chest x-ray done showed vascular congestion. * CT of the chest showed multilobar pneumonia on admission. On IV Zosyn. * Urine for strep and Legionella antigens were negative. Speech therapy on board in light of history of stroke and Parkinson's disease. * COVID and respiratory panels were negative. * should improve with dialysis #CHRISTY on CKD stage IIIb * Commenced on dialysis. Has had 2 sessions of dialysis so far * Management as per nephrology. * on bicarb. * .Nephrology patient need continued dialysis so general surgery contacted for insertion of permanent dialysis catheter. Will hold heparin * #Rhabdomyolysis: * resolved. * #Acute anemia: Hemoglobin today is 9.8. Remained stable. Will monitor. #Hematuria due to urethral stricture * Had urinary retention and urology had to be consulted to place a Larkin as he could not be placed in the ED. Having some mild hematuria but is clearing up. Likely traumatic as a result of passing the Larkin. * To leave Larkin in situ on discharge and to follow-up with urology on outpatient basis. * #Type 2 diabetes mellitus: A1c is 8.1. On insulin sliding scale. Accuhecks ACHS. Usually on metformin at home which is currently on hold. #History of DVT: Has IVC filter in situ. on heparin drip. 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 Lives alone currently. Family looking at getting him into assisted living. On aspirin. PT OT on board. #Benign essential hypertension: On metoprolol. Lisinopril held due to CHRISTY on CKD #Hyperlipidemia: On statin #Heart failure with reduced ejection fraction: Not in exacerbation but is fluid overloaded due to CHRISTY. Dialysis helping with fluid removal #Parkinson's disease with recent fall: PT OT on board. On levodopa carbidopa. #DVT prophylaxis: Currently on heparin drip Disposition: will need placement Charges/Coding Visit Charges Inpatient E&M: 37871 Subs Hosp L2 10/24/24 1605 <Electronically signed by Rosmery Lake MD> Rosmery Lake MD Cosigner Signature (if applicable): CC: ~ Signed [facility] Work Phone: 1(556) 474-745509-18-2025 Progress note Author Cece Dennis [facility] Note Date/Time October 24, 2024 3:33pm [facility] Medical Records Department [address] [place] [address] Progress Note - Surgery 10/24/24 1529 MR#: [id number] Acct: [id number] Name: GUSTAVO PATTON Rep #:[id number] : 1950 73 From: Cece Dennis MD PCP: Dr. Tracie Abreu MD Status:ADM IN Location: [place] [address] Subjective Subjective Patient will need tunneled dialysis catheter currently has a temporary in the right IJ Objective Data Objective Data Vital Signs: Vital Signs Temp Pulse Resp BP Pulse Ox O2 Del Method O2 Flow Rate 97.8 F 87 28 H 134/68 H 99 Room Air 2 10/24/24 09:04 10/24/24 09:04 10/24/24 09:04 10/24/24 09:04 10/24/24 12:49 10/24/24 14:00 10/24/24 12:49 Oxygen Flow Rate (L/min) 2 Oxygen Delivery Method Room Air Weight: 166 lb 3.657 oz Body Mass Index (BMI) 23.8 Intake & Output: Intake and Output for Last 24 Hours 10/22/24 10/23/2410/24/25 23:59 23:59 23:59 Intake Total 280.62 / 530.62 796.57 / 796.57 239.64 / 239.64 Output Total 1230 / 1330 1780 / 1780 650 / 650 Balance -949.38 / -799.38 -983.43 / -983.43 -410.36 / -410.36 Lab / Micro Data 10/24/24 04:29 10/24/24 04:29 Labs: Laboratory Results - last 24 hr 10/23/24 17:01: POC Glucose 145 H 10/23/24 19:10: APTT 113.7 H* 10/23/24 22:40: POC Glucose 196 H 10/24/24 04:29: WBC 12.2 H, RBC 3.23 L, Hgb 9.8 L, Hct 29.2 L, MCV 90.4, MCH 30.3, MCHC 33.6, RDW Std Deviation 45.0 H, RDW Coeff of Sara 13.7, Plt Count 351,MPV 10.5, Neut % (Auto) Not Reportable, Absolute Neuts (auto) 9.0 H, Absolute Lymphs (auto) 1.46, Total Counted 100, Neutrophils % (Manual) 74 H, Lymphocytes % (Manual) 12 L, Monocytes % (Manual) 4, Eosinophils % (Manual) 6 H, Metamyelocytes % 3 H, Myelocytes % 1 H, Platelet Estimate ADEQUATE, Anisocytosis 1+, Ovalocytes 1+, APTT 54.1 H, Sodium 141, Potassium 3.6, Chloride 106, Carbon Dioxide 22.2, Anion Gap 14, BUN 48 H, Creatinine 5.62 H, Estim Creat Clear Calc 12.45 L, Est GFR (MDRD) Non-Af 10 L, BUN/Creatinine Ratio 8.5 L, Glucose 171 H, Calcium 8.6 10/24/24 06:27: POC Glucose 141 H 10/24/24 11:03: APTT 55.2 H 10/24/24 12:16: POC Glucose 213 H Micro: Microbiology 10/17/24 18:30 Blood Culture (Wb) - Anticubital Right Blood Culture - Final No growth in 5 days. 10/17/24 18:34 Blood Culture (Wb) - Anticubital Left Blood Culture - Final No growth in 5 days. 10/21/24 09:23 Stool Enteric Bacteriology - Final 10/21/24 09:23 Stool Clostridioides difficile (PCR) - Final 10/18/24 11:58 Urine Catheter - Larkin Urine Culture - Final Culture exhibits no growth. 10/19/24 10:15 Urine Catheter - Catheter Legionella Antigen - Final 10/19/24 10:15 Urine Catheter - Catheter Streptococcus pneumoniae Antigen (M- Final 10/19/24 17:55 Mucosa - Nasopharyngeal Respiratory Panel (PCR) - Final 10/19/24 18:11 Mucosa - Nose Coronavirus COVID-19 PCR - Final Radiography Diagnostic Testing: Radiology Impression Renal Ultrasound 10/22/24 12:16 IMPRESSION: NORMAL RENAL ULTRASOUND. [facility] 10/24/24 09:25 IMPRESSION: Mild bilateral pulmonary vascular congestion. Reading Location: [facility] Physical Exam Narrative Patient was currently sleeping in chair would only shake his head to questions. Temporary dialysis catheter in the right IJ in place. Const no apparent distress Resp normal respiratory effort GI soft to palpation and non-tender Assessment & Plan Assessment/Plan (1) CHRISTY (acute kidney injury): (2) History of DVT (deep vein thrombosis): (3) Chronic anticoagulation: PLAN: Plan Will plan to place at tunnel dialysis catheter right possible left tomorrow in the OR about noon. Did talk to the patient who did shake his head they had no further questions and also talk to his sister Renate who is his POA as well. Plan to stop the heparin drip tonight, night the dialysis nurse will plan to pull the catheter at 7 AM tomorrow morning. Plan to go to the OR about noon fora tunneled dialysis catheter. N.p.o. after midnight Cece Dennis M.D. Pager: [phone] [facility] [address] [place] [address], [facility], [address] [place] [id number] Office: [phone] 10/24/24 1537 <Electronically signed by Cece Dennis MD> Cosigner Signature (if applicable): CC: ~ Signed ADDENDUM by Dr. Cece Dennis MD on 10/24/24 at 1533 Visit Charges Inpatient E&M: 73070 Subs Hosp L2 10/24/24 1533<Electronically signed by Cece Dennis MD> Cosigner Signature (if applicable): cc: ~* Signed [facility] Work Phone: [phone]) 176-459509-18-2025 Radiology Diagnostic study [facility]09-18-2025 Radiology Diagnostic study [facility]09-17-2025 Progress note Author Rosmery Lake [facility] Note Date/Time October 23, 2024 3:59pm [facility] Medical Records Department [address] [facility] [place] [address] Progress Note 10/23/24 1100 MR#: [id number] Acct: [id number] Name: GUSTAVO PATTON Rep #:[id number] : 1950 73 From: Rosmery Lake MD PCP: Dr. Tracie Abreu MD Status:ADM IN Location: [place] [address] Subjective Subjective Patient seen and examined. He had no complaints today. He did have a mild fever this morning of 99.5 Fahrenheit. He is on 2 L of oxygen. Review of systems otherwise negative. Objective Data Objective Data Vital Signs: Vital Signs Temp Pulse Resp BP Pulse Ox O2 Del Method O2 Flow Rate 99.5 F H 91 27 H 127/61 H 96 Nasal Cannula 2 10/23/24 10:10/23/24 10:00 10/23/24 10:00 10/23/24 10:10/23/24 10:10/23/24 10:10/23/24 10:00 Oxygen Flow Rate (L/min) 2 Oxygen Delivery Method Nasal Cannula Weight: 168 lb 11.163 oz Body Mass Index (BMI) 24.2 Intake & Output: Intake and Output for Last 24 Hours 10/21/24 10/22/24 10/23/24 23:59 23:59 23:59 Intake Total 228.83 / 228.83 280.62 / 530.62 368.08 / 368.08 Output Total 575 / 725 1230 / 1330 250 / 250 Balance -346.17 / -496.17 -949.38 / -799.38 118.08 / 118.08 Lab / Micro Data 10/23/24 03:20 10/23/24 02:20 Labs: Laboratory Results - last 24 hr 10/20/24 16:38: POC Glucose 223 H 10/22/24 12:30: APTT 84.9 H 10/22/24 12:38: POC Glucose 121 H 10/22/24 16:18: POC Glucose 175 H 10/22/24 19:13: APTT 48.4 H 10/22/24 22:11: POC Glucose 177 H 10/23/24 02:20: Sodium 141, Potassium 3.4, Chloride 105, Carbon Dioxide 20.8 L, Anion Gap 15, BUN 70 H, Creatinine 7.11 H, Estim Creat Clear Calc 9.84 L*, Est GFR (MDRD) Non-Af 8 L, BUN/Creatinine Ratio 9.9 L, Glucose 166 H, Calcium 8.1 10/23/24 03:20: WBC 11.8 H, RBC 2.93 L, Hgb 9.0 L, Hct 26.1 L, MCV 89.1, MCH 30.7, MCHC 34.5, RDW Std Deviation 44.8 H, RDW Coeff of Sara 13.8, Plt Count 339,MPV 11.1, Neut % (Auto) Not Reportable, Absolute Neuts (auto) 7.6, Absolute Lymphs (auto) 2.40, Neutrophils % (Manual) 64, Band Neutrophils % 20 H, Lymphocytes % (Manual) 20, Monocytes % (Manual) 4, Eosinophils % (Manual) 9 H, Metamyelocytes % 2 H, Myelocytes % 1 H, Diff Path Review May , Platelet Estimate ADEQUATE, RBC Morphology NORM C+C, APTT 82.7 H 10/23/24 05:54: POC Glucose 147 H Micro: Microbiology 10/17/24 18:30 Blood Culture (Wb) - Anticubital Right Blood Culture - Final No growth in 5 days. 10/17/24 18:34 Blood Culture (Wb) - Anticubital Left Blood Culture - Final No growth in 5 days. 10/21/24 09:23 Stool Enteric Bacteriology - Final 10/21/24 09:23 Stool Clostridioides difficile (PCR) - Final 10/18/24 11:58 Urine Catheter - Larkin Urine Culture - Final Culture exhibits no growth. 10/19/24 10:15 Urine Catheter - Catheter Legionella Antigen - Final 10/19/24 10:15 Urine Catheter - Catheter Streptococcus pneumoniae Antigen (M- Final 10/19/24 17:55 Mucosa - Nasopharyngeal Respiratory Panel (PCR) - Final 10/19/24 18:11 Mucosa - Nose Coronavirus COVID-19 PCR - Final Physical Exam Const alert, oriented x3, no apparent distress and average body habitus Constitutional Narrative: flat affect General Appearance: cooperative HEENT normocephalic, head/scalp atraumatic, hearing grossly normal bilaterally, moist oral mucous membranes and oropharynx normal Eyes PERRL, EOMs intact bilaterally and conjunctivae normal Neck supple and no JVD Neck Narrative: Trachea midline Lymph Lymphatic: no lymphedema noted Resp Resp Narrative: Mildly diminished breath sounds bibasilar. No wheezes or crackles. On 2L of oxygen by nasal canula Effort and Inspection: tachypneic Auscultation: Negative for rales, rhonchi or wheezes Cardio regular rate, regular rhythm, S1 normal heart sound, S2 normal heart sound and no murmurs Cardio Narrative: Mild tachycardia GI normal to inspection, nondistended, normoactive bowel sounds, soft to palpation,non-tender and non-distended Extremity normal capillary refill, no clubbing, cyanosis or edema and no calf tenderness General Extremity: no tenderness to palpation of joints or extremities Skin Skin Narrative: dialysis catheter in situ General Skin Exam: no breakdown Neuro oriented x3, CN's II-XII intact bilaterally and no focal motor deficits Neuro Narrative: Bradykinesia, speech is clear and normal though he often appears hesitant in speech and movement. Sensorium / Orientation: awake and alert Motor Exam: general weakness Psych thought process normal and cooperative Psych Narrative: flat affect Mood & Affect: flat affect Assessment & Plan Assessment/Plan (1) High anion gap metabolic acidosis: (2) Urethral stricture: (3) Urinary retention: (4) Fall: QUALIFIERS: Encounter type: initial encounter Qualified Code(s): W19.XXXA - Unspecified fall, initial encounter (5) Rhabdomyolysis: QUALIFIERS: Rhabdomyolysis type: non-traumatic Qualified Code(s):M62.82 - Rhabdomyolysis PLAN: Plan #Sepsis due to multilobar pneumonia * now on room air. CT of the chest showed multilobar pneumonia. On IV Zosyn. * Urine for strep and Legionella antigens were negative. Speech therapy on board in light of history of stroke and Parkinson's disease. * Sputum culture is pending. COVID and respiratory panels were negative. #CHRISTY on CKD stage IIIb * Commenced on dialysis yesterday. Creatinine is down to around 7.5 today. Having dialysis again today. * Management as per nephrology. * on bicarb. * #Rhabdomyolysis: * improving with dialysis. Stable. * #Acute anemia: Hemoglobin today is 9.0. Remained stable. Will monitor. #Hematuria due to urethral stricture * Had urinary retention and urology had to be consulted to place a Larkin as he could not be placed in the ED. Having some mild hematuria but is clearing up. Likely traumatic as a result of passing the Larkin. * To leave Larkin in situ on discharge and to follow-up with urology on outpatient basis. * #Type 2 diabetes mellitus: A1c is 8.1. On insulin sliding scale. Accuhecks ACHS. Usually on metformin at home which is currently on hold. #History of DVT: Has IVC filter in situ. on heparin drip. 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 Lives alone currently. Family looking at getting him into assisted living. On aspirin. PT OT on board. #Benign essential hypertension: On metoprolol. Lisinopril held due to CHRISTY on CKD #Hyperlipidemia: On statin #Heart failure with reduced ejection fraction: Not in exacerbation. #Parkinson's disease with recent fall: PT OT on board. On levodopa carbidopa. #DVT prophylaxis: Currently on heparin drip Disposition: will need placement Charges/Coding Visit Charges Inpatient E&M: 90406 Subs Hosp L2 10/23/24 1579 <Electronically signed by Rosmery Lake MD> Rosmery Lake MD Cosigner Signature (if applicable): CC: ~ Signed [facility] Work Phone: 1(801) 592-582409-17-2025 Procedure [facility] 10-22-2024 Progress note Author Rosmery Lake [facility] Note Date/Time October 22, 2024 4:50pm [facility] Medical Records Department [address] [facility] [place] [address] Progress Note 10/22/24 1336 MR#: [id number] Acct: [id number] Name: GUSTAVO PATTON Rep #:[id number] : 1950 73 From: Rosmery Lake MD PCP: Dr. Tracie Abreu MD Status:ADM IN Location: [place] [address] Subjective Subjective Patient seen and examined. He was having dialysis. He was drowsy but woke up to communicate. He had no active complaints. He denied any fever or chills, nausea or vomiting. His diarrhea had resolved. Review of systems otherwise negative. Creatinine has trended up further to 9.55 today. Objective Data Objective Data Vital Signs: Vital Signs Temp Pulse Resp BP Pulse Ox O2 Del Method O2 Flow Rate 97.5 F L 87 25 H 146/77 H 98 Room Air 2 10/22/24 12:29 10/22/24 12:29 10/22/24 12:29 10/22/24 12:29 10/22/24 12:29 10/22/24 12:29 10/22/24 11:00 Oxygen Flow Rate (L/min) 2 Oxygen Delivery Method Room Air Weight: 168 lb 11.163 oz Body Mass Index (BMI) 24.2 Intake & Output: Intake and Output for Last 24 Hours 10/20/24 10/21/24 10/22/24 23:59 23:59 23:59 Intake Total 2377.11 / 2377.11 228.83 / 228.83 167.16 / 167.16 Output Total 320 / 470 575 / 725 880 / 880 Balance 2057.11 / 1907.11 -346.17 / -496.17 -712.84 / -712.84 Lab / Micro Data 10/22/24 04:40 10/22/24 04:40 Labs: Laboratory Results - last 24 hr 10/20/24 16:38: POC Glucose 223 H 10/21/24 17:16: POC Glucose 142 H 10/21/24 21:45: POC Glucose 227 H 10/22/24 04:40: WBC 12.1 H, RBC 3.22 L, Hgb 9.7 L, Hct 28.7 L, MCV 89.1, MCH 30.1, MCHC 33.8, RDW Std Deviation 44.5 H, RDW Coeff of Sara 13.5, Plt Count 319,MPV 11.4, Neut % (Auto) Not Reportable, Absolute Neuts (auto) 10.9 H, Absolute Lymphs (auto) 1.21, Total Counted 100, Neutrophils % (Manual) 90 H, Lymphocytes % (Manual) 10 L, Platelet Estimate ADEQUATE, RBC Morphology NORM C+C, APTT 54.5 H, Sodium 142, Potassium 3.7, Chloride 106, Carbon Dioxide 17.6 L, Anion Gap 18 H, BUN 98 H, Creatinine 9.55 H*, Estim Creat Clear Calc 7.33 L*, Est GFR (MDRD) Non-Af 5 L, BUN/Creatinine Ratio 10.2, Glucose 169 H, Calcium 8.1 10/22/24 06:18: POC Glucose 148 H 10/22/24 08:15: Hep Bs Antigen Nonreactive 10/22/24 12:30: APTT 84.9 H 10/22/24 12:38: POC Glucose 121 H Micro: Microbiology 10/21/24 09:23 Stool Enteric Bacteriology - Final 10/21/24 09:23 Stool Clostridioides difficile (PCR) - Final 10/18/24 11:58 Urine Catheter - Larkin Urine Culture - Final Culture exhibits no growth. 10/17/24 18:30 Blood Culture (Wb) - Anticubital Right Blood Culture - Preliminary No growth in 48 hours. 10/17/24 18:34 Blood Culture (Wb) - Anticubital Left Blood Culture - Preliminary No growth in 48 hours. 10/19/24 10:15 Urine Catheter - Catheter Legionella Antigen - Final 10/19/24 10:15 Urine Catheter - Catheter Streptococcus pneumoniae Antigen (M- Final 10/19/24 17:55 Mucosa - Nasopharyngeal Respiratory Panel (PCR) - Final 10/19/24 18:11 Mucosa - Nose Coronavirus COVID-19 PCR - Final Radiography Diagnostic Testing: Radiology Impression Chest X-Ray 10/21/24 16:30 IMPRESSION: Cardiomegaly with mild congestion. Reading Location: [facility] Physical Exam Const alert, oriented x3, no apparent distress, average body habitus and well nourished; Negative for healthy appearing Constitutional Narrative: Somnolent, older, white male, with bradykinesia and a flat affect, appears comfortable, does not appear toxic, lying in bed, nursing at bedside, patient appears comfortable recurrently, sick but not toxic General Appearance: cooperative HEENT normocephalic, head/scalp atraumatic, hearing grossly normal bilaterally, moist oral mucous membranes and oropharynx normal Eyes PERRL, EOMs intact bilaterally and conjunctivae normal Eyes Narrative: No scleral icterus Neck no lymphadenopathy, supple and no JVD Neck Narrative: Trachea midline Lymph Lymphatic: no lymphedema noted Resp Resp Narrative: Mildly diminished breath sounds bibasilar. No wheezes or crackles. On room air. Effort and Inspection: tachypneic Auscultation: Negative for rales, rhonchi or wheezes Cardio regular rate, regular rhythm, S1 normal heart sound, S2 normal heart sound and no murmurs GI normal to inspection, nondistended, normoactive bowel sounds, soft to palpation,non-tender and non-distended Extremity normal capillary refill, no clubbing, cyanosis or edema and no calf tenderness General Extremity: no tenderness to palpation of joints or extremities Skin Skin Narrative: dialysis catheter in situ General Skin Exam: no breakdown Neuro oriented x3, CN's II-XII intact bilaterally, moves all extremities and no focal motor deficits Sensorium / Orientation: awake and alert Speech: speech normal Motor Exam: general weakness Psych cooperative; Negative for affect normal Psych Narrative: flat affect Assessment & Plan Assessment/Plan (1) High anion gap metabolic acidosis: (2) Urethral stricture: (3) Urinary retention: (4) Fall: QUALIFIERS: Encounter type: initial encounter Qualified Code(s): W19.XXXA - Unspecified fall, initial encounter (5) Rhabdomyolysis: QUALIFIERS: Rhabdomyolysis type: non-traumatic Qualified Code(s):M62.82 - Rhabdomyolysis PLAN: Plan #Sepsis due to multilobar pneumonia * now on room air. CT of the chest showed multilobar pneumonia. On IV Zosyn. * Urine for strep and Legionella antigens were negative. Speech therapy on board in light of history of stroke and Parkinson's disease. * Sputum culture is pending. COVID and respiratory panels were negative. #CHRISTY on CKD stage IIIb * Creatinine is up to 9.55 today today. His baseline creatinine seems to be around 1.4. * Nephrology on board. On bicarb. * Had insertion of dialysis catheter done yesterday and patient undergoing dialysis. * #Rhabdomyolysis: * CPK was still elevated yesterday but this was likely due to decreased clearance from the acute renal failure * However in light of the worsening kidney function it is difficult to see if this is very accurate or just due to decreased clearance. * Encourage oral hydration and continue hydration with IV fluids. * Has been compliant on dialysis today so that should help with this. * #Acute anemia: Hemoglobin today is 9.7. Remained stable. Will monitor. #Hematuria due to urethral stricture * Had urinary retention and urology had to be consulted to place a Larkin as he could not be placed in the ED. Having some mild hematuria but is clearing up. Likely traumatic as a result of passing the Larkin. * To leave Larkin in situ on discharge and to follow-up with urology on outpatient basis. * #Type 2 diabetes mellitus: A1c is 8.1. On insulin sliding scale. Accuhecks ACHS. Usually on metformin at home which is currently on hold. #History of DVT: Has IVC filter in situ. Was on Eliquis but now on heparin dripas he is in the hospital. Heparin drip held as it needs to be on hold for 6 hours before he can have the dialysis catheter inserted. 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 Lives alone currently. Family looking at getting him into assisted living. On aspirin. PT OT on board. #Benign essential hypertension: On metoprolol. Lisinopril held due to CHRISTY on CKD #Hyperlipidemia: On statin #Heart failure with reduced ejection fraction: Not in exacerbation. #Parkinson's disease with recent fall: PT OT on board. On levodopa carbidopa. #DVT prophylaxis: Currently on heparin drip Charges/Coding Visit Charges Inpatient E&M: 66158 Subs Hosp L2 10/22/24 1650 <Electronically signed by Rosmery Lake MD> Rosmery Lake MD Cosigner Signature (if applicable): CC: ~ Signed [facility] Work Phone: [phone] 674-835509-16-2025 Progress note Author Rodney Chavez [facility] Note Date/Time October 22, 2024 12:18pm [facility] Medical Records Department [address] [place] [address] Progress Note - Nephrology 10/22/24 1217 MR#: [id number] Acct: [id number] Name: GUSTAVO PATTON Rep #:[id number] : 1950 73 From: Rodney pringle MD PCP: Dr. Tracie Abreu MD Status:ADM IN Location: [place] [address] Subjective Subjective seen on HD Objective Data Objective Data Vital Signs: Vital Signs Temp Pulse Resp BP Pulse Ox O2 Del Method O2 Flow Rate 98.0 F 87 28 H 146/75 H 97 Room Air 2 10/22/24 02:02 10/22/24 12:00 10/22/24 12:00 10/22/24 12:00 10/22/24 12:00 10/22/24 12:00 10/22/24 11:00 Oxygen Flow Rate (L/min) 2 Oxygen Delivery Method Room Air Weight: 77.1 kg Body Mass Index (BMI) 24.3 Intake & Output: Intake and Output for Last 24 Hours 10/20/24 10/21/24 10/22/24 23:59 23:59 23:59 Intake Total 2377.11 / 2377.11 228.83 / 228.83 110.54 / 110.54 Output Total 320 / 470 575 / 725 300 / 300 Balance 2057.11 / 1907.11 -346.17 / -496.17 -189.46 / -189.46 Lab / Micro Data 10/22/24 04:40 10/22/24 04:40 Labs: Laboratory Results - last 24 hr 10/21/24 17:16: POC Glucose 142 H 10/21/24 21:45: POC Glucose 227 H 10/22/24 04:40: WBC 12.1 H, RBC 3.22 L, Hgb 9.7 L, Hct 28.7 L, MCV 89.1, MCH 30.1, MCHC 33.8, RDW Std Deviation 44.5 H, RDW Coeff of Sara 13.5, Plt Count 319,MPV 11.4, Neut % (Auto) Not Reportable, Absolute Neuts (auto) 10.9 H, Absolute Lymphs (auto) 1.21, Total Counted 100, Neutrophils % (Manual) 90 H, Lymphocytes % (Manual) 10 L, Platelet Estimate ADEQUATE, RBC Morphology NORM C+C, APTT 54.5 H, Sodium 142, Potassium 3.7, Chloride 106, Carbon Dioxide 17.6 L, Anion Gap 18 H, BUN 98 H, Creatinine 9.55 H*, Estim Creat Clear Calc 7.33 L*, Est GFR (MDRD) Non-Af 5 L, BUN/Creatinine Ratio 10.2, Glucose 169 H, Calcium 8.1 10/22/24 06:18: POC Glucose 148 H 10/22/24 08:15: Hep Bs Antigen Nonreactive Micro: Microbiology 10/21/24 09:23 Stool Enteric Bacteriology - Final 10/21/24 09:23 Stool Clostridioides difficile (PCR) - Final 10/18/24 11:58 Urine Catheter - Larkin Urine Culture - Final Culture exhibits no growth. 10/17/24 18:30 Blood Culture (Wb) - Anticubital Right Blood Culture - Preliminary No growth in 48 hours. 10/17/24 18:34 Blood Culture (Wb) - Anticubital Left Blood Culture - Preliminary No growth in 48 hours. 10/19/24 10:15 Urine Catheter - Catheter Legionella Antigen - Final 10/19/24 10:15 Urine Catheter - Catheter Streptococcus pneumoniae Antigen (M- Final 10/19/24 17:55 Mucosa - Nasopharyngeal Respiratory Panel (PCR) - Final 10/19/24 18:11 Mucosa - Nose Coronavirus COVID-19 PCR - Final Radiography Diagnostic Testing: Radiology Impression Chest X-Ray 10/21/24 16:30 IMPRESSION: Cardiomegaly with mild congestion. Reading Location: [facility] Physical Exam Narrative Alert and oriented no obvious distress s1s2 no murmurs lungs clear abdomen soft no pitting edema larkin + Assessment & Plan Assessment/Plan (1) CHRISTY (acute kidney injury): PLAN: - CHRISTY on possible CKD (SCr 1.11 July 2023). He was initially admitted to the hospital with a fall and rhabdomyolysis. Admission creatinine was 2.4, CPK level was 18,000. CPK levels have trended down however he had progressive renalfailure. Nonoliguric. At this point we will consider alternative etiologies for acute renal failure. Renal ultrasound ordered Serologies ordered Initiated on dialysis 10/21/2024. Today second treatment. 10/22/24 1218 <Electronically signed by Rodney Chavez MD> Cosigner Signature (if applicable): CC: ~ Signed [facility] Work Phone: [phone] 138-212509-16-2025 Progress note Author Tristin Caba [facility] Note Date/Time October 22, 2024 9:30am [facility] Medical Records Department [address] [place] [address] Progress Note - Nephrology 10/21/24 1044 MR#: [id number] Acct: [id number] Name: GUSTAVO PATTON Rep #:[id number] : 1950 73 From: Tristin harrison [employer] PCP: Dr. Tracie Abreu MD Status:ADM IN Location: [place] [address] Subjective Subjective Patient sitting in chair. His sisters are at bedside. No overnight events. Objective Data Objective Data Vital Signs: Vital Signs Temp Pulse Resp BP Pulse Ox O2 Del Method O2 Flow Rate 98.7 F 95 28 H 132/75 H 93 Nasal Cannula 3 10/21/24 06:00 10/21/24 06:00 10/21/24 06:00 10/21/24 06:00 10/21/24 09:16 10/21/24 09:16 10/21/24 09:16 Oxygen Flow Rate (L/min) 3 Oxygen Delivery Method Nasal Cannula Weight: 77.111 kg Body Mass Index (BMI) 24.3 Intake & Output: Intake and Output for Last 24 Hours 10/19/24 10/20/24 10/21/24 23:59 23:59 23:59 Intake Total 2952.24 / 3072.24 2377.11 / 2377.11 178.83 / 178.83 Output Total 150 / 220 320 / 470 275 / 275 Balance 2802.24 / 2852.24 2057.11 / 1907.11 -96.17 / -96.17 Lab / Micro Data 10/21/24 05:03 10/21/24 05:03 Labs: Laboratory Results - last 24 hr 10/20/24 11:48: Sodium 138, Potassium 3.6, Chloride 103, Carbon Dioxide 17.1 L, Anion Gap 17 H, BUN 89 H, Creatinine 7.23 H, Estim Creat Clear Calc 9.68 L*, EstGFR (MDRD) Non-Af 7 L, BUN/Creatinine Ratio 12.3, Glucose 207 H, Calcium 8.2 10/20/24 11:55: POC Glucose 190 H 10/20/24 17:20: APTT 67.5 H 10/20/24 21:06: POC Glucose 202 H 10/21/24 05:03: WBC 13.5 H, RBC 3.21 L, Hgb 9.8 L, Hct 28.7 L, MCV 89.4, MCH 30.5, MCHC 34.1, RDW Std Deviation 44.2 H, RDW Coeff of Sara 13.4, Plt Count 266,MPV 11.1, Immature Gran % (Auto) 1.800 H, Neut % (Auto) 81.2 H, Lymph % (Auto) 6.8 L, Scurry % (Auto) 7.0, Eos % (Auto) 2.8, Baso % (Auto) 0.4, Absolute Neuts (auto) 10.9 H, Absolute Lymphs (auto) 0.92, Nucleated RBC % 0, APTT 82.2 H, Sodium 140, Potassium 3.6, Chloride 106, Carbon Dioxide 17.7 L, Anion Gap 17 H, BUN 95 H, Creatinine 8.28 H*, Estim Creat Clear Calc 8.45 L*, Est GFR (MDRD) Non-Af 6 L, BUN/Creatinine Ratio 11.5, Glucose 182 H, Calcium 8.2 10/21/24 06:25: POC Glucose 169 H Micro: Microbiology 10/21/24 09:23 Stool Clostridioides difficile (PCR) - Final 10/18/24 11:58 Urine Catheter - Larkin Urine Culture - Final Culture exhibits no growth. 10/17/24 18:30 Blood Culture (Wb) - Anticubital Right Blood Culture - Preliminary No growth in 48 hours. 10/17/24 18:34 Blood Culture (Wb) - Anticubital Left Blood Culture - Preliminary No growth in 48 hours. 10/19/24 10:15 Urine Catheter - Catheter Legionella Antigen - Final 10/19/24 10:15 Urine Catheter - Catheter Streptococcus pneumoniae Antigen (M- Final 10/19/24 17:55 Mucosa - Nasopharyngeal Respiratory Panel (PCR) - Final 10/19/24 18:11 Mucosa - Nose Coronavirus COVID-19 PCR - Final Physical Exam Narrative Alert and oriented no obvious distress s1s2 no murmurs lungs clear abdomen soft no pitting edema larkin + Assessment & Plan Assessment/Plan (1) CHRISTY (acute kidney injury): PLAN: - CHRISTY on possible CKD (SCr 1.11 July 2023). Admitted for fall and rhabdomyolysis 10/17. CPK 16,400 on admission, worsened to 18,000 on 10/18. LastCPK 4400 on 10/20. Serum creatinine 2.76 on admission and has been worsening. Today serum creatinine 8.28mg/dL. Potassium 3.6, bicarb 17.7. Total urine output documented for yesterday 320 mL (patient has larkin). Patient is heading towards needing renal placement therapy. Discussed with patient, and his 2 sisters (who have POA) about renal placement therapy, patient heading towards needing FISH CHECKER. Discussed risks and benefits of hemodialysis. Questions answered. All are in agreement with renal placement therapy. Plan was discussed with and Dr. Lake for patient needing dialysis access. Surgery team has beenconsulted. Once dialysis access obtained we will then plan for hemodialysis. We will continue to monitor for renal recovery. Assessment and plan reviewed with Dr. Chavez. 10/21/24 1053 <Electronically signed by Tristin HERRMANN> Cosigner Signature (if applicable): 10/22/24 0930 <Electronically signed by Rodney Chavez MD> CC: ~ Signed [facility] Work Phone: [phone]) 172-385509-16-2025 Progress note Author Roxanna Rahman [facility] Note Date/Time October 22, 2024 9:14am [facility] System Medical Records Department [address] [place] [address] Progress Note - Surgery 10/22/24 0836 MR#: [id number] Acct: [id number] Name: GUSTAVO PATTON Rep #:[id number] : 1950 73 From: Roxanna MCCLAIN PA-C PCP: Dr. Tracie Abreu MD Status:ADM IN Location: [place] [id number] Subjective Subjective Patient evaluated resting comfortably in bed. He denies any concerns with the right temporary dialysis catheter. Objective Data Objective Data Vital Signs: Vital Signs Temp Pulse Resp BP Pulse Ox O2 Del Method O2 Flow Rate 98.0 F 92 27 H 134/76 H 97 Nasal Cannula 2 10/22/24 02:02 10/22/24 03:00 10/22/24 03:00 10/22/24 03:00 10/22/24 03:00 10/22/24 08:01 10/22/24 03:00 Oxygen Flow Rate (L/min) 2 Oxygen Delivery Method Nasal Cannula Weight: 170 lb 0.01 oz Body Mass Index (BMI) 24.3 Intake & Output: Intake and Output for Last 24 Hours 10/20/24 10/21/24 10/22/24 23:59 23:59 23:59 Intake Total 2377.11 / 2377.11 228.83 / 228.83 110.54 / 110.54 Output Total 320 / 470 575 / 725 300 / 300 Balance 2057.11 / 1907.11 -346.17 / -496.17 -189.46 / -189.46 Lab / Micro Data 10/22/24 04:40 10/22/24 04:40 Labs: Laboratory Results - last 24 hr 10/21/24 11:35: POC Glucose 134 H 10/21/24 17:16: POC Glucose 142 H 10/21/24 21:45: POC Glucose 227 H 10/22/24 04:40: WBC 12.1 H, RBC 3.22 L, Hgb 9.7 L, Hct 28.7 L, MCV 89.1, MCH 30.1, MCHC 33.8, RDW Std Deviation 44.5 H, RDW Coeff of Sara 13.5, Plt Count 319,MPV 11.4, Neut % (Auto) Not Reportable, Absolute Neuts (auto) 10.9 H, Absolute Lymphs (auto) 1.21, Total Counted 100, Neutrophils % (Manual) 90 H, Lymphocytes % (Manual) 10 L, Platelet Estimate ADEQUATE, RBC Morphology NORM C+C, APTT 54.5 H, Sodium 142, Potassium 3.7, Chloride 106, Carbon Dioxide 17.6 L, Anion Gap 18 H, BUN 98 H, Creatinine 9.55 H*, Estim Creat Clear Calc 7.33 L*, Est GFR (MDRD) Non-Af 5 L, BUN/Creatinine Ratio 10.2, Glucose 169 H, Calcium 8.1 10/22/24 06:18: POC Glucose 148 H Micro: Microbiology 10/21/24 09:23 Stool Enteric Bacteriology - Final 10/21/24 09:23 Stool Clostridioides difficile (PCR) - Final 10/18/24 11:58 Urine Catheter - Larkin Urine Culture - Final Culture exhibits no growth. 10/17/24 18:30 Blood Culture (Wb) - Anticubital Right Blood Culture - Preliminary No growth in 48 hours. 10/17/24 18:34 Blood Culture (Wb) - Anticubital Left Blood Culture - Preliminary No growth in 48 hours. 10/19/24 10:15 Urine Catheter - Catheter Legionella Antigen - Final 10/19/24 10:15 Urine Catheter - Catheter Streptococcus pneumoniae Antigen (M- Final 10/19/24 17:55 Mucosa - Nasopharyngeal Respiratory Panel (PCR) - Final 10/19/24 18:11 Mucosa - Nose Coronavirus COVID-19 PCR - Final Radiography Diagnostic Testing: Radiology Impression Chest X-Ray 10/21/24 16:30 IMPRESSION: Cardiomegaly with mild congestion. Reading Location: [facility] Physical Exam Neck Neck Narrative: Right IJ temporary dialysis- intact. No bleeding or oozing noted. Assessment & Plan Assessment/Plan (1) CHRISTY (acute kidney injury): PLAN: I am following this patient in conjunction with Dr. Palacios. He will independently evaluate this patient. Catheter intact and ready to be used Dialysis is to be started today We will follow this patient as needed at this time Charges/Coding Visit Charges Inpatient E&M: 32834 Subs Hosp L1 10/22/24913 <Electronically signed by Roxanna MCCLAIN PA-C> Cosigner Signature (if applicable): CC: ~ Signed [facility] Work Phone: [phone]) 564-378909-15-2025 Consult note Author Juan Palacios [facility] Note Date/Time October 21, 2024 4:47pm [facility] Medical Records Department [address] [place] [address] Consultation - Surgical 10/21/24 1642 MR#: [id number] Acct: [id number] Name: GUSTAVO PATTON Rep #:[id number] : 1950 73 From: Juan Palacios MD PCP: Dr. Tracie Abreu MD Status:ADM IN Location: [place] [address] Assessment & Plan Assessment/Plan (1) Rhabdomyolysis: QUALIFIERS: Rhabdomyolysis type: non-traumatic Qualified Code(s):M62.82 - Rhabdomyolysis PLAN: Plan The patient is a 73-year-old male who has developed acute kidney injury after a fall at home and resultant rhabdomyolysis. Temporary dialysis catheter has beenplaced. Primary medical team and nephrology are free to utilize the line for dialysis purposes. HPI Consult Data Date of Consult: 10/21/24 HPI Narrative Reason for Consultation: Insertion of temporary dialysis catheter HPI Narrative: GUSTAVO PATTON, is a 73 M who was admitted to [facility] recently after a fall at home. Patient has multiple medical problems including hypertension, hyperlipidemia, diabetes, developmental delay, DVT, Parkinson's disease, multiple strokes, constipation. He was admitted to a fall at home and presumed to have been down for quite some time as he presented with hematuria and rhabdomyolysis. He also had hyperglycemia. He was admitted for sepsis and was also found to have acute kidney injury. His creatinine has continued to rise and nephrology is recommending hemodialysis. As result a temporary dialysis catheter was requested. Patient was on a heparin drip and this needed to be held prior to insertion. Details of the procedure were discussed with thepatient as well as his 2 sisters. All 4 were in agreement with proceeding. We discussed the details of the procedure including risk benefits and alternatives [facility] Medical History Facial droop Dysphagia Primary cardiomyopathy Essential (primary) hypertension Diastolic heart failure History of developmental delay History of DVT (deep vein thrombosis) Remote history of stroke DM II (diabetes mellitus, type II), controlled Dysarthria Stroke/cerebrovascular accident Home Medications ?Medication ?Instructions ?Recorded ?Last Taken ?Type multivitamin 1 cap PO DAILY supplement 11/24/22 History atorvastatin 40 mg tablet 40 mg PO QHS #30 tabs Unknown Rx lisinopril 2.5 mg tablet 2.5 mg PO DAILY #30 tabs Unknown Rx metoprolol succinate 25 mg 25 mg PO DAILY #30 tabs Unknown Rx tablet,extended release 24 hr loratadine 10 mg tablet (Allergy 10 mg PO DAILY Unknown History Relief (loratadine)) sennosides 8.6 mg tablet (Senna 8.6 mg PO QHS 01/20/23 Unknown History Lax) metformin 500 mg tablet 500 mg PO DAILY 05/23/23 Unk nown History pantoprazole 20 mg tablet,delayed 20 mg PO DAILY 05/22 Unknown History release apixaban 5 mg tablet (Eliquis) 5 mg PO BID 11/09/23 Un known History aspirin 81 mg chewable tablet 81 mg PO QDAY 11/09/23 U nknown History carbidopa 25 mg-levodopa 100 mg 2 tab PO TID 11/09/23 Unknown History tablet ipratropium bromide 21 mcg (0.03 2 spray intranasal TI D PRN nasal 11/09/23 Unknown History %) nasal spray congestion Allergy/AdvReac Type Severity Reaction Status Date / Time No Known Allergies Allergy Verified 10/17/24 22:17 Family History Father Diabetes Social History household members: none housing: apartment number of children: 0 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 pets and animals: No Smoking Status: Never smoker alcohol intake: never substance use type: does not use Physical Exam Const alert and no apparent distress General Appearance: cooperative Neck full ROM Resp normal respiratory effort Lab / Micro Data 10/21/24 05:03 10/21/24 05:03 Labs: Laboratory Results - last 24 hr 10/20/24 17:20: APTT 67.5 H 10/20/24 21:06: POC Glucose 202 H 10/21/24 05:03: WBC 13.5 H, RBC 3.21 L, Hgb 9.8 L, Hct 28.7 L, MCV 89.4, MCH 30.5, MCHC 34.1, RDW Std Deviation 44.2 H, RDW Coeff of Sara 13.4, Plt Count 266,MPV 11.1, Immature Gran % (Auto) 1.800 H, Neut % (Auto) 81.2 H, Lymph % (Auto) 6.8 L, Scurry % (Auto) 7.0, Eos % (Auto) 2.8, Baso % (Auto) 0.4, Absolute Neuts (auto) 10.9 H, Absolute Lymphs (auto) 0.92, Nucleated RBC % 0, APTT 82.2 H, Sodium 140, Potassium 3.6, Chloride 106, Carbon Dioxide 17.7 L, Anion Gap 17 H, BUN 95 H, Creatinine 8.28 H*, Estim Creat Clear Calc 8.45 L*, Est GFR (MDRD) Non-Af 6 L, BUN/Creatinine Ratio 11.5, Glucose 182 H, Calcium 8.2 10/21/24 06:25: POC Glucose 169 H 10/21/24 11:35: POC Glucose 134 H Micro: Microbiology 10/21/24 09:23 Stool Enteric Bacteriology - Preliminary 10/21/24 09:23 Stool Clostridioides difficile (PCR) - Final 10/21/24 1647 <Electronically signed by Juan Palacios MD> Cosigner Signature (if applicable): CC: Dr. Tracie Abreu MD~ Signed [facility] Work Phone: [phone] Progress note [facility] Note Date/Time October 21, 2024 4:40pm [facility] Medical Records Department [address] [place] [id number] Progress Note 10/21/24 1403 MR#: [id number] Acct: [id number] Name: GUSTAVO PATTON Rep #:[id number] : 1950 73 From: Rosmery Lake MD PCP: Dr. Tracie Abreu MD Status:ADM IN Location: [place] [address] Subjective Subjective Patient seen and examined. He complains of diarrhea, and says he has had severalsessions of diarrhea today. He denies any cough, chest pain, palpitations, dizziness, nausea or vomiting. Review of systems is otherwise negative. Objective Data Objective Data Vital Signs: Vital Signs Temp Pulse Resp BP Pulse Ox O2 Del Method O2 Flow Rate 97.4 F L 96 23 H 135/66 H 98 Nasal Cannula 2 10/21/24 13:00 10/21/24 13:00 10/21/24 13:00 10/21/24 13:00 10/21/24 13:00 10/21/24 13:00 10/21/24 13:00 Oxygen Flow Rate (L/min) 2 Oxygen Delivery Method Nasal Cannula Weight: 170 lb 0.01 oz Body Mass Index (BMI) 24.3 Intake & Output: Intake and Output for Last 24 Hours 10/19/24 10/20/24 10/21/24 23:59 23:59 23:59 Intake Total 2952.24 / 3072.24 2377.11 / 2377.11 178.83 / 178.83 Output Total 150 / 220 320 / 470 275 / 275 Balance 2802.24 / 2852.24 2057.11 / 1907.11 -96.17 / -96.17 Lab / Micro Data 10/21/24 05:03 10/21/24 05:03 Labs: Laboratory Results - last 24 hr 10/20/24 17:20: APTT 67.5 H 10/20/24 21:06: POC Glucose 202 H 10/21/24 05:03: WBC 13.5 H, RBC 3.21 L, Hgb 9.8 L, Hct 28.7 L, MCV 89.4, MCH 30.5, MCHC 34.1, RDW Std Deviation 44.2 H, RDW Coeff of Sara 13.4, Plt Count 266,MPV 11.1, Immature Gran % (Auto) 1.800 H, Neut % (Auto) 81.2 H, Lymph % (Auto) 6.8 L, Scurry % (Auto) 7.0, Eos % (Auto) 2.8, Baso % (Auto) 0.4, Absolute Neuts (auto) 10.9 H, Absolute Lymphs (auto) 0.92, Nucleated RBC % 0, APTT 82.2 H, Sodium 140, Potassium 3.6, Chloride 106, Carbon Dioxide 17.7 L, Anion Gap 17 H, BUN 95 H, Creatinine 8.28 H*, Estim Creat Clear Calc 8.45 L*, Est GFR (MDRD) Non-Af 6 L, BUN/Creatinine Ratio 11.5, Glucose 182 H, Calcium 8.2 10/21/24 06:25: POC Glucose 169 H 10/21/24 11:35: POC Glucose 134 H Micro: Microbiology 10/21/24 09:23 Stool Enteric Bacteriology - Preliminary 10/21/24 09:23 Stool Clostridioides difficile (PCR) - Final 10/18/24 11:58 Urine Catheter - Larkin Urine Culture - Final Culture exhibits no growth. 10/17/24 18:30 Blood Culture (Wb) - Anticubital Right Blood Culture - Preliminary No growth in 48 hours. 10/17/24 18:34 Blood Culture (Wb) - Anticubital Left Blood Culture - Preliminary No growth in 48 hours. 10/19/24 10:15 Urine Catheter - Catheter Legionella Antigen - Final 10/19/24 10:15 Urine Catheter - Catheter Streptococcus pneumoniae Antigen (M- Final 10/19/24 17:55 Mucosa - Nasopharyngeal Respiratory Panel (PCR) - Final 10/19/24 18:11 Mucosa - Nose Coronavirus COVID-19 PCR - Final Physical Exam Const alert, oriented x3 and no apparent distress General Appearance: cooperative HEENT normocephalic, head/scalp atraumatic, moist oral mucous membranes and oropharynxnormal Neck supple Lymph Lymphatic: no lymphedema noted Resp Resp Narrative: mildly diminished breath sounds bibasally, no wheezes or crackles. On 2L of oxygen by nasal canula Cardio regular rate, regular rhythm, S1 normal heart sound, S2 normal heart sound and no murmurs GI normal to inspection, nondistended, normoactive bowel sounds, soft to palpation,non-tender and non-distended Extremity normal capillary refill, no clubbing, cyanosis or edema and no calf tenderness General Extremity: no tenderness to palpation of joints or extremities Skin General Skin Exam: no breakdown Neuro CN's II-XII intact bilaterally and no focal motor deficits Motor Exam: general weakness Psych cooperative Psych Narrative: flat affect Assessment & Plan Assessment/Plan (1) High anion gap metabolic acidosis: (2) Urethral stricture: (3) Urinary retention: (4) Fall: QUALIFIERS: Encounter type: initial encounter Qualified Code(s): W19.XXXA - Unspecified fall, initial encounter (5) Rhabdomyolysis: QUALIFIERS: Rhabdomyolysis type: non-traumatic Qualified Code(s):M62.82 - Rhabdomyolysis PLAN: Plan #Sepsis due to multilobar pneumonia * Currently on [address] of the chest showed multilobar pneumonia. On IV Zosyn. * Urine for strep and Legionella antigens were negative. Speech therapy on board in light of history of stroke and Parkinson's disease. * Sputum culture is pending. COVID and respiratory panels were negative. #CHRISTY on CKD stage IIIb * Creatinine is up to over 8 today. His baseline creatinine seems to be around 1.4. * Nephrology on board. On bicarb. I did discuss with nephrology this morning and decision made that patient will require initiation of dialysis. General surgery consulted and heparin drip held # * #Rhabdomyolysis: * CPK still elevated at 4431. * However in light of the worsening kidney function it is difficult to see if this is very accurate or just due to decreased clearance. * Encourage oral hydration and continue hydration with IV fluids. * Dialysis should also help with this. * #Acute anemia: Hemoglobin today is 9.8. Remained stable. Will monitor. #Hematuria due to urethral stricture * Had urinary retention and urology had to be consulted to place a Larkin as he could not be placed in the ED. Having some mild hematuria but is clearing up. Likely traumatic as a result of passing the * To leave Larkin in situ on discharge and to follow-up with urology on outpatient basis. * #Type 2 diabetes mellitus: A1c is 8.1. On insulin sliding scale. ACT checks ACHS. Usually on metformin at home which is currently on hold. #History of DVT: Has IVC filter in situ. Was on Eliquis but now on heparin dripas he is in the hospital. Heparin drip held as it needs to be on hold for 6 hours before he can have the dialysis catheter inserted. 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 Lives alone currently. Family looking at getting him into assisted living. On aspirin. PT OT on board. #Benign essential hypertension: On metoprolol. Lisinopril held due to CHRISTY on CKD #Hyperlipidemia: On statin #Heart failure with reduced ejection fraction: Not in exacerbation. #Parkinson's disease with recent fall: PT OT on board. On levodopa carbidopa. #DVT prophylaxis: Currently on heparin drip which is on hold. Charges/Coding Visit Charges Inpatient E&M: 45211 Subs Hosp L3 10/21/24 1434 <Electronically signed by Rosmery Lake MD> Rosmery Lake MD Cosigner Signature (if applicable): CC: ~ Signed ADDENDUM by Dr. Rosmery Lake MD on 10/21/24 at 1640 Addendum #Diarrhea * Patient developed diarrhea today and has had several bowel movements. C. difficile and enteric panel ordered. 10/21/24 1640 <Electronically signed by Rosmery galeas MD> Date _ Rosmery Lake MD Cosigner Signature (if applicable): Date cc: ~* Signed [facility] Work Phone: [phone]) 263-364809-15-2025 Radiology Diagnostic study [facility]09-15-2025 Procedure [facility]09-14-2025 Progress note Author Nathalia Garcia [facility] Note Date/Time October 20, 2024 12:23pm [facility] Medical Records Department [address] [place] [address] Progress Note - Hospitalist 10/20/24 0721 MR#: [id number] Acct: [id number] Name: GUSTAVO PATTON Rep #:[id number] : 1950 73 From: Nathalia Garcia DO PCP: Dr. Tracie Abreu MD Status:ADM IN Location: [place] [address] Reason for Visit Chief Complaint: Fall at Home. Subjective Subjective No issues overnight. Patient remains on 3 L nasal cannula. His sister who is part A has arrived from [place] and helps provide some history. He is alert and oriented x 3 however it sounds like his decision making capacity is problematic. She states he decided to go independently this summer in August on atrip to [place] and had paid $14,000 to do so however when he got to the airport he got scared and confused and only packed a small kit to go to [place]. He was not able to go and lost his money. It sounds like there is multiple problematicevents that have occurred and she is currently trying to get him in assisted living facility. We did discuss that he is sick enough that he may need to be placed at discharge. He is traditional Medicare and I do feel that he would benefit from rehab services at discharge. He has had 2 strokes and has Parkinson's at baseline. Objective Data Objective Data Vital Signs: Vital Signs Temp Pulse Resp BP Pulse Ox O2 Del Method O2 Flow Rate 98.7 F 102 H 28 H 122/56 H 94 Nasal Cannula 3 10/20/24 06:57 10/20/24 06:57 10/20/24 06:57 10/20/24 06:57 10/20/24 06:57 10/20/24 06:57 10/20/24 06:57 Oxygen Flow Rate (L/min) 3 Oxygen Delivery Method Nasal Cannula Weight: 77.111 kg Body Mass Index (BMI) 24.3 Intake & Output: Intake and Output for Last 24 Hours 10/18/24 10/19/24 10/20/24 23:59 23:59 23:59 Intake Total 4452.08 / 4452.08 2952.24 / 3072.24 955.23 / 955.23 Output Total 150 / 220 120 / 120 Balance 4427.08 / 4427.08 2802.24 / 2852.24 835.23 / 835.23 Lab / Micro Data 10/20/24 02:54 10/20/24 02:54 Labs: Laboratory Results - last 24 hr 10/19/24 04:20: Hgb 9.9 L, Sodium 137, Potassium 4.2, Chloride 105, Carbon Dioxide 15.6 L, Anion Gap 16 H, BUN 74 H, Creatinine 5.18 H, Estim Creat Clear Calc 13.51 L, Est GFR (MDRD) Non-Af 11 L, BUN/Creatinine Ratio 14.2, Glucose 124H, Calcium 7.7, Total Bilirubin 0.51, AST 318 H, ALT 17, Alkaline Phosphatase 75, Total Creatine Kinase 8103 H, Total Protein 5.8 L, Albumin 2.6 L, Globulin 3.1, Albumin/Globulin Ratio 0.8 L 10/19/24 09:23: PT 19.0 H, INR 1.6, APTT 34.1 10/19/24 10:15: Urine Color Yellow, Urine Clarity Sl. Cloudy, Urine pH 6.0, Ur Specific [place] 1.010, Urine Protein 100 H, Urine Glucose (UA) Normal, Urine Ketones Negative, Urine Occult Blood 250 H, Urine Nitrite Negative, Urine Bilirubin Negative, Urine Urobilinogen Normal, Ur Leukocyte Esterase 500 H, Urine RBC 10-25 SEEN, Urine WBC 0-5 SEEN, Ur Squamous Epith Cells 0 SEEN, Amorphous Sediment 1+, Urine Bacteria 0 SEEN, Urine Mucus 0 SEEN, Ur Random Sodium 94, Urine Creatinine 70.10, Urine Urea Nitrogen 159 10/19/24 11:22: POC Glucose 161 H 10/19/24 12:00: Hgb 11.0 L, Sodium 135, Potassium 4.3, Chloride 102, Carbon Dioxide 15.4 L, Anion Gap 18 H, BUN 79 H, Creatinine 5.72 H, Estim Creat Clear Calc 12.23 L, Est GFR (MDRD) Non-Af 10 L, BUN/Creatinine Ratio 13.8, Glucose 167H, Calcium 8.1 10/19/24 13:00: MRSA (PCR) Negative 10/19/24 14:50: Sodium 133, Potassium 4.2, Chloride 103, Carbon Dioxide 12.2 L, Anion Gap 18 H, BUN 79 H, Creatinine 5.79 H, Estim Creat Clear Calc 12.08 L, EstGFR (MDRD) Non-Af 10 L, BUN/Creatinine Ratio 13.7, Glucose 172 H, Calcium 8.1 10/19/24 17:00: APTT Cancelled 10/19/24 17:21: POC Glucose 157 H 10/19/24 17:45: APTT 79.6 H, Sodium 136, Potassium 4.2, Chloride 102, Carbon Dioxide 17.4 L, Anion Gap 17 H, BUN 80 H, Creatinine 5.97 H, Estim Creat Clear Calc 11.72 L, Est GFR (MDRD) Non-Af 9 L, BUN/Creatinine Ratio 13.4, Glucose 157 H, Calcium 8.1 10/19/24 20:53: Sodium 138, Potassium 3.9, Chloride 103, Carbon Dioxide 17.7 L, Anion Gap 17 H, BUN 81 H, Creatinine 6.21 H, Estim Creat Clear Calc 11.27 L, EstGFR (MDRD) Non-Af 9 L, BUN/Creatinine Ratio 13.0, Glucose 151 H, Calcium 7.9 10/19/24 22:08: POC Glucose 138 H 10/19/24 23:40: APTT 132.3 H* 10/20/24 02:54: WBC 12.5 H, RBC 3.23 L, Hgb 10.0 L, Hct 28.9 L, MCV 89.5, MCH 31.0, MCHC 34.6, RDW Std Deviation 44.2 H, RDW Coeff of Sara 13.3, Plt Count 230,MPV 12.1 H, Immature Gran % (Auto) 0.400, Neut % (Auto) 88.2 H, Lymph % (Auto) 4.9 L, Scurry % (Auto) 5.6, Eos % (Auto) 0.6, Baso % (Auto) 0.3, Absolute Neuts (auto) 11.0 H, Absolute Lymphs (auto) 0.61 L, Nucleated RBC % 0, Differential Comment SCANNED, Toxic Granulation 2+, Sodium 137, Potassium 3.7, Chloride 104, Carbon Dioxide 16.4 L, Anion Gap 17 H, BUN 82 H, Creatinine 6.70 H, Estim Creat Clear Calc 10.44 L, Est GFR (MDRD) Non-Af 8 L, BUN/Creatinine Ratio 12.2, Glucose 195 H, Calcium 7.8, Magnesium 2.0, Total Creatine Kinase 4431 H Micro: Microbiology 10/19/24 10:15 Urine Catheter - Catheter Legionella Antigen - Final 10/19/24 10:15 Urine Catheter - Catheter Streptococcus pneumoniae Antigen (M- Final 10/19/24 17:55 Mucosa - Nasopharyngeal Respiratory Panel (PCR) - Final 10/19/24 18:11 Mucosa - Nose Coronavirus COVID-19 PCR - Final ABG Data ABG results: ABG 10/20/24 06:50 Specimen Type ART Sample Site R Radial pH 7.47 H Bicarbonate Actual 21.8 L Total CO2 23 Base Excess -2 O2 Saturation 96 O2 % 3.0 ABG pCO2 30.3 L ABG pO2 72 L Luis Miguel Test N/A O2 Delivery Device Cannula Vent Mode Not entered Radiography Diagnostic Testing: Radiology Impression Chest CT 10/19/24 07:49 IMPRESSION: Multi lobar multifocal pneumonia. Reading Location: [facility] Physical Exam Const alert, oriented x3, no apparent distress, average body habitus and well nourished; Negative for healthy appearing Constitutional Narrative: Somnolent, older, white male, with bradykinesia and a flat affect, appears comfortable, does not appear toxic, lying in bed, nursing at bedside, patient appears comfortable recurrently, sick but not toxic General Appearance: cooperative HEENT normocephalic, head/scalp atraumatic and moist oral mucous membranes HEENT Narrative: No thrush, abrasion over nose is healing Resp No normal respiratory effort, no retractions, no use of accessory muscles and clear to auscultation bilaterally Resp Narrative: Still with tachypneic, crackles at bilateral bases Auscultation: Negative for rales, rhonchi or wheezes Cardio regular rhythm, S1 normal heart sound, S2 normal heart sound, no murmurs, no rub, no gallops and no clicks Cardio Narrative: Mild tachycardia GI normal to inspection, nondistended, normoactive bowel sounds, soft to palpation and non-tender Extremity Extremity Narrative: 2+ pedal and radial pulses, trace pitting edema bilateral lower and upper extremities especially in dependent areas, no cyanosis or clubbing Skin Skin Narrative: Abrasion on nose as noted Neuro moves all extremities and no focal motor deficits Neuro Narrative: Bradykinesia, speech is clear and normal but response times are somewhat delayed Speech: speech normal Psych Negative for affect normal Psych Narrative: Affect is flat but patient makes good eye contact and interacts appropriately Assessment & Plan Assessment/Plan (1) Chronic anticoagulation: (2) Hematuria: QUALIFIERS: Hematuria type: unspecified type Qualified Code(s): R31.9 - Hematuria, unspecified (3) Fall: QUALIFIERS: Encounter type: initial encounter Qualified Code(s): W19.XXXA - Unspecified fall, initial encounter (4) Rhabdomyolysis: QUALIFIERS: Rhabdomyolysis type: non-traumatic Qualified Code(s):M62.82 - Rhabdomyolysis (5) CHRISTY (acute kidney injury): (6) SIRS (systemic inflammatory response syndrome): (7) High anion gap metabolic acidosis: (8) Urethral stricture: PLAN: Plan Sepsis secondary to multilobar pneumonia - Patient developed shortness of breath and hypoxia overnight -Initially thought to be volume overload however suspect elevated BNP was related to decreased clearance as chest x-ray did not appear to be volume overloaded -Obtained CT of the chest which revealed multilobar pneumonia -Continue Zosyn - Strep pneumo and Legionella antigens are negative so we will discontinue azithromycin -Speech therapy to evaluate with history of stroke and Parkinson's - sputum culture pending if patient able to produce - Urine culture was negative - Blood cultures are negative at 48 hours - COVID and respiratory viral panels were unremarkable - Continue broad-spectrum antibiotics CHRISTY on CKD stage IIIb secondary to ischemic ATN - Baseline serum creatinine appears to be between 1.4 and 1.5 - Serum creatinine was 2.76 on admission and renal function continues to climb with most recent serum creatinine being 6.7 - 12 PM BMP - IV fluids discontinued as patient is oliguric and patient is now getting volume overloaded - Still may need May need bicarb drip depending on trends and bicarb and clinical status as he is tachypneic to compensate for his metabolic acidosis -Was given 1 amp of bicarb yesterday - Did discuss with patient and family he may need temporary dialysis overall electrolytes are relatively stable at this time so he may be able to give him some more time before initiating HD - Nephrology is following Acute anemia - Suspect related to volume status and overall illness - Has been fluctuating but relatively stable - No signs of bleeding - Repeat in a.m. Rhabdomyolysis -Resolving - CPK was greater than 18,000 - Trending down and is now 4431 - No need to repeat CK Urinary retention secondary to urethral stricture/hematuria - Larkin unable to be placed in the emergency department - Urology placed Larkin and will need to leave in at discharge - Continue Flomax 0.4 daily - Outpatient follow-up with Dr. 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 - Nephrology following DM-2 uncontrolled - Hyperglycemic on presentation but fasting blood sugar this morning was 167 - Hold home metformin - A1c was 8.1 indicative of poor overall control - Continue SSI - Accu-Cheks as ordered History of DVT - Has IVC filter - Continue heparin drip with severity of illness as he would not tolerate PE well - Restart Eliquis once renal function stabilizes 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 - Has chronic disability but lives alone--> per discussion with family they would like to get him into assisted living - Continue aspirin - PT/OT following Essential hypertension/hyperlipidemia - Continue home metoprolol - Hold home lisinopril with renal dysfunction - continue home statin Chronic HFrEF - Stable with no signs of decompensation - BNP is elevated however I suspect this is related to decreased clearance basedon imaging and clinical status Parkinson's disease with recent fall - Continue home carbidopa levodopa - PT/OT following Seasonal allergies - Continue home loratadine History of developmental delay - Complicates overall medical history DVT prophylaxis - Heparin drip for now and restart apixaban once renal function is improved CODE STATUS - Full code Charges/Coding Visit Charges Inpatient E&M: 61303 Subs Hosp L2 10/20/24 1223 <Electronically signed by Nathalia Garcia DO> Cosigner Signature (if applicable): CC: ~ Signed [facility] Work Phone: [phone] Consult note Author Rodney Chavez [facility] Note Date/Time October 19, 2024 4:51pm [facility] Medical Records Department [address] [place] [address] Consultation - Nephrology 10/19/24 1648 MR#: [id number] Acct: [id number] Name: GUSTAVO PATTON Rep #:[id number] : 1950 73 From: Rodney pringle MD PCP: Dr. Tracie Abreu MD Status:ADM IN Location: [place] [address] Assessment & Plan Assessment/Plan (1) CHRISTY (acute kidney injury): PLAN: Reviewed prior lab data. baseline cr was 1.4 in July 2023. this admit he came in with cr 2.7 or so. worsening rhabdomyolysis. no focal muscle compartment tenderness. CK is better Larkin inserted by urology volume status looks ok fluids for now Acidosis. will give IV bicarb for now dw Dr Garcia HPI Consult Data Date of Consult: 10/19/24 HPI Narrative Reason for Consultation: CHRISTY HPI Narrative: GUSTAVO PATTON, is a 73 M who presents to the hospital with a fall. nephrology on consult due to CHRISTY. somewhat poor historian. apparently fell and could not get up for a while before brought in. ongoing events include rhabdomyolysis, CHRISTY, urinary retention. [facility] Medical History Facial droop Dysphagia Primary cardiomyopathy Essential (primary) hypertension Diastolic heart failure History of developmental delay History of DVT (deep vein thrombosis) Remote history of stroke DM II (diabetes mellitus, type II), controlled Dysarthria Stroke/cerebrovascular accident Home Medications ?Medication ?Instructions ?Recorded ?Last Taken ?Type multivitamin 1 cap PO DAILY supplement 11/24/22 History atorvastatin 40 mg tablet 40 mg PO QHS #30 tabs Unknown Rx lisinopril 2.5 mg tablet 2.5 mg PO DAILY #30 tabs Unknown Rx metoprolol succinate 25 mg 25 mg PO DAILY #30 tabs Unknown Rx tablet,extended release 24 hr loratadine 10 mg tablet (Allergy 10 mg PO DAILY Unknown History Relief (loratadine)) sennosides 8.6 mg tablet (Senna 8.6 mg PO QHS 01/20/23 Unknown History Lax) metformin 500 mg tablet 500 mg PO DAILY 05/23/23 Unk nown History pantoprazole 20 mg tablet,delayed 20 mg PO DAILY 05/22 Unknown History release apixaban 5 mg tablet (Eliquis) 5 mg PO BID 11/09/23 Un known History aspirin 81 mg chewable tablet 81 mg PO QDAY 11/09/23 U nknown History carbidopa 25 mg-levodopa 100 mg 2 tab PO TID 11/09/23 Unknown History tablet ipratropium bromide 21 mcg (0.03 2 spray intranasal TI D PRN nasal 11/09/23 Unknown History %) nasal spray congestion Allergy/AdvReac Type Severity Reaction Status Date / Time No Known Allergies Allergy Verified 10/17/24 22:17 Family History Father Diabetes Social History household members: none housing: apartment number of children: 0 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 pets and animals: No Smoking Status: Never smoker alcohol intake: never substance use type: does not use ROS ROS Narrative negative except above Physical Exam Narrative no obvious distress no pallor no icterus no JVD s1s2 no murmurs lungs clear abdomen soft no organomegaly no edema no cyanosis larkin + Lab / Micro Data 10/19/24 12:00 10/19/24 14:50 Labs: Laboratory Results - last 24 hr 10/18/24 16:16: POC Glucose 141 H 10/18/24 21:56: POC Glucose 126 H 10/19/24 04:20: WBC 9.6, RBC 3.22 L, Hgb 9.8 L 10/19/24 04:20: Hgb 9.9 L, Hct 29.2 L, MCV 90.7, MCH 30.4, MCHC 33.6, RDW Std Deviation 43.3, RDW Coeff of Sara 13.2, Plt Count 195, MPV 11.5, Immature Gran % (Auto) 0.300, Neut % (Auto) 83.9 H, Lymph % (Auto) 6.1 L, Scurry % (Auto) 7.9, Eos% (Auto) 1.3, Baso % (Auto) 0.5, Absolute Neuts (auto) 8.0 H, Absolute Lymphs (auto) 0.58 L, Nucleated RBC % 0, Differential Comment SCANNED, Sodium 137, Potassium 4.2, Chloride 105, Carbon Dioxide 15.6 L, Anion Gap 16 H, BUN 74 H, Creatinine 5.18 H, Estim Creat Clear Calc 13.51 L, Est GFR (MDRD) Non-Af 11 L, BUN/Creatinine Ratio 14.2, Glucose 124 H, Calcium 7.7, Phosphorus 3.6, Magnesium1.7, Total Bilirubin 0.51, AST 318 H, ALT 17, Alkaline Phosphatase 75, Total Creatine Kinase 8103 H, NT pro BNP II 2366 H, Total Protein 5.8 L, Albumin 2.6 L, Globulin 3.1, Albumin/Globulin Ratio 0.8 L 10/19/24 06:16: POC Glucose 114 H 10/19/24 09:23: PT 19.0 H, INR 1.6, APTT 34.1 10/19/24 10:15: Urine Color Yellow, Urine Clarity Sl. Cloudy, Urine pH 6.0, Ur Specific [place] 1.010, Urine Protein 100 H, Urine Glucose (UA) Normal, Urine Ketones Negative, Urine Occult Blood 250 H, Urine Nitrite Negative, Urine Bilirubin Negative, Urine Urobilinogen Normal, Ur Leukocyte Esterase 500 H, Urine RBC 10-25 SEEN, Urine WBC 0-5 SEEN, Ur Squamous Epith Cells 0 SEEN, Amorphous Sediment 1+, Urine Bacteria 0 SEEN, Urine Mucus 0 SEEN, Ur Random Sodium 94, Urine Creatinine 70.10, Urine Urea Nitrogen 159 10/19/24 11:22: POC Glucose 161 H 10/19/24 12:00: Hgb 11.0 L, Sodium 135, Potassium 4.3, Chloride 102, Carbon Dioxide 15.4 L, Anion Gap 18 H, BUN 79 H, Creatinine 5.72 H, Estim Creat Clear Calc 12.23 L, Est GFR (MDRD) Non-Af 10 L, BUN/Creatinine Ratio 13.8, Glucose 167H, Calcium 8.1 10/19/24 13:00: MRSA (PCR) Negative 10/19/24 14:50: Sodium 133, Potassium 4.2, Chloride 103, Carbon Dioxide 12.2 L, Anion Gap 18 H, BUN 79 H, Creatinine 5.79 H, Estim Creat Clear Calc 12.08 L, EstGFR (MDRD) Non-Af 10 L, BUN/Creatinine Ratio 13.7, Glucose 172 H, Calcium 8.1 ABG Data ABG results: ABG 10/19/24 04:26 Specimen Type ART Sample Site R Radial pH 7.49 H Bicarbonate Actual 18.0 L Total CO2 19 Base Excess -5 L O2 Saturation 99 O2 % 4.0 ABG pCO2 23.7 L ABG pO2 107 H Luis Miguel Test Positive O2 Delivery Device Cannula Vent Mode Not entered Imaging Radiology Impression Chest X-Ray 10/19/24 04:00 IMPRESSION: Minimal bibasilar atelectasis in the cardiophrenic angles. Follow-up recommended to ensure resolution Previously noted left pleural effusion has resolved No organized infiltrate Reading Location: [id number] Chest CT 10/19/24 07:49 IMPRESSION: Multi lobar multifocal pneumonia. Reading Location: [id number] 10/19/24 1651 <Electronically signed by Rodney Chavez MD> Cosigner Signature (if applicable): CC: Dr. Tracie Abreu MD~ Signed [facility] Work Phone: [phone] Progress note Author Nathalia Garcia [facility] Note Date/Time October 19, 2024 1:49pm [facility] Medical Records Department [address] [place] [address] Progress Note - Hospitalist 10/19/24 0700 MR#: [id number] Acct: [id number] Name: GUSTAVO PATTON Rep #:[id number] : 1950 73 From: Nathalia Garcia DO PCP: Dr. Tracie Abreu MD Status:ADM IN Location: [place] [address] Reason for Visit Chief Complaint: Fall at Home. Subjective Subjective Events from overnight reviewed. Patient was started on Lasix drip however renalfunction continues to be poor and urine output remains poor. Workup in progress. Highly suspect patient is dry however. Patient looks tachypneic and is somnolent. States he had a bad night but is still oriented x 3. Per discussion with nursing, his sister had called and expressed concern about him going home. Unfortunately he walked 250 feet yesterday. Will continue to watchfunctional status and assist with discharge planning. Objective Data Objective Data Vital Signs: Vital Signs Temp Pulse Resp BP Pulse Ox O2 Del Method O2 Flow Rate 99.0 F 104 H 22 H 107/59 L 92 Nasal Cannula 3 10/19/24 06:10 10/19/24 06:10 10/19/24 06:10 10/19/24 06:10 10/19/24 06:10 10/19/24 06:10 10/19/24 06:10 Oxygen Flow Rate (L/min) 3 Oxygen Delivery Method Nasal Cannula Weight: 77.111 kg Body Mass Index (BMI) 24.3 Intake & Output: Intake and Output for Last 24 Hours 10/17/24 10/18/24 10/19/24 23:59 23:59 23:59 Intake Total 2429.17 / 2429. 4452.08 / 4452.08 497.92 / 497.92 Output Total 50 / 50 Balance 2429.17 / 2429.17 4427.08 / 4427.08 447.92 / 447.92 Lab / Micro Data 10/19/24 12:00 10/19/24 04:20 Labs: Laboratory Results - last 24 hr 10/17/24 11:58: Urine Color Liliana, Urine Clarity Cloudy, Urine pH 5.0, Ur Specific [place] 1.025, Urine Protein 100 H, Urine Glucose (UA) 50 H, Urine Ketones 5 H, Urine Occult Blood 250 H, Urine Nitrite Negative, Urine Bilirubin 1H, Urine Urobilinogen 1 H, Ur Leukocyte Esterase 100 H, Urine RBC > 100 SEEN, Urine WBC 10-25 SEEN, Ur Squamous Epith Cells 0-5 SEEN, Urine Bacteria 0 SEEN, Urine Mucus 0 SEEN 10/18/24 05:36: Sodium 138, Potassium 4.8, Chloride 105, Carbon Dioxide 15.7 L, Anion Gap 18 H, BUN 58 H, Creatinine 2.85 H, Estim Creat Clear Calc 24.55 L, EstGFR (MDRD) Non-Af 23 L, BUN/Creatinine Ratio 20.5 H, Glucose 176 H, Calcium 8.2 10/18/24 06:13: POC Glucose 167 H 10/18/24 12:23: POC Glucose 146 H 10/18/24 16:16: POC Glucose 141 H 10/18/24 21:56: POC Glucose 126 H 10/19/24 04:20: WBC 9.6, RBC 3.22 L, Hgb 9.8 L, Hct 29.2 L, MCV 90.7, MCH 30.4, MCHC 33.6, RDW Std Deviation 43.3, RDW Coeff of Sara 13.2, Plt Count 195, MPV 11.5, Immature Gran % (Auto) 0.300, Neut % (Auto) 83.9 H, Lymph % (Auto) 6.1 L, Scurry % (Auto) 7.9, Eos % (Auto) 1.3, Baso % (Auto) 0.5, Absolute Neuts (auto) 8.0 H, Absolute Lymphs (auto) 0.58 L, Nucleated RBC % 0, Differential Comment SCANNED, Phosphorus 3.6, Magnesium 1.7, NT pro BNP II 2366 H 10/19/24 06:16: POC Glucose 114 H ABG Data ABG results: ABG 10/18/24 10/18/24 10/19/24 07:25 15:43 04:26 Specimen Type SYED ART ART Sample Site Not entered R Radial R Radial pH 7.47 H 7.49 H Bicarbonate Actual 18.9 L 18.0 L Total CO2 20 19 Base Excess -5 L -5 L O2 Saturation 94 L 99 O2 % 21.0 4.0 ABG pCO2 26.1 L 23.7 L ABG pO2 65 L 107 H Luis Miguel Test Positive Positive VBG pH 7.44 H VBG pO2 162 H VBG HCO3 22 VBG Total CO2 23 VBG O2 Sat (Calc) 100 H VBG Base Excess -2 L POC Mix VBG pCO2 Pt Tmp 32.5 L O2 Delivery Device Not entered Room Air Cannula Vent Mode Not entered Not entered Radiography Diagnostic Testing: Radiology Impression Echocardiogram 10/18/24 08:08 Interpretation Summary The study was technically difficult. Apical lateral thinning with hypokinesis. Unchanged from previous study in 2022.Overall LVEF 55%. Stage I diastolic dysfunction. Ordering Physician: Nathalia Garcia Performed By: Gerard Kulkarni [facility] Chest X-Ray 10/19/24 04:00 IMPRESSION: Minimal bibasilar atelectasis in the cardiophrenic angles. Follow-up recommended to ensure resolution Previously noted left pleural effusion has resolved No organized infiltrate Reading Location: [facility] Physical Exam Const alert, oriented x3, no apparent distress, average body habitus and well nourished; Negative for healthy appearing Constitutional Narrative: Somnolent, older, white male, with bradykinesia and a flat affect, appears comfortable, does not appear toxic, sitting up in a chair at the bedside and appears sleepy but interacts General Appearance: cooperative HEENT normocephalic and hearing grossly normal bilaterally HEENT Narrative: Mucous membranes appear dry, scrape on nose appears stable without any significant drainage Eyes conjunctivae normal Eyes Narrative: No scleral icterus Neck no JVD Neck Narrative: Trachea midline Resp No normal respiratory effort, no retractions, no use of accessory muscles and clear to auscultation bilaterally Resp Narrative: Tachypneic, few crackles at right base Auscultation: Negative for rales, rhonchi or wheezes Cardio regular rhythm, S1 normal heart sound, S2 normal heart sound, no murmurs, no rub, no gallops and no clicks Cardio Narrative: Mild tachycardia GI normal to inspection, nondistended, normoactive bowel sounds, soft to palpation and non-tender Extremity no clubbing, cyanosis or edema Extremity Narrative: 2+ pedal and radial pulses Skin Skin Narrative: Abrasion on nose as noted Neuro oriented x3, moves all extremities and no focal motor deficits Neuro Narrative: Bradykinesia, speech is clear and normal but response times are somewhat delayed Speech: speech normal Psych Negative for affect normal Psych Narrative: Affect is flat but patient makes good eye contact and interacts appropriately Assessment & Plan Assessment/Plan (1) Chronic anticoagulation: (2) Hematuria: QUALIFIERS: Hematuria type: unspecified type Qualified Code(s): R31.9 - Hematuria, unspecified (3) Fall: QUALIFIERS: Encounter type: initial encounter Qualified Code(s): W19.XXXA - Unspecified fall, initial encounter (4) Rhabdomyolysis: QUALIFIERS: Rhabdomyolysis type: non-traumatic Qualified Code(s):M62.82 - Rhabdomyolysis (5) CHRISTY (acute kidney injury): (6) SIRS (systemic inflammatory response syndrome): (7) High anion gap metabolic acidosis: (8) Urethral stricture: PLAN: Plan Sepsis secondary to multilobar pneumonia - Patient developed shortness of breath and hypoxia overnight -Initially thought to be volume overload however suspect elevated BNP was related to decreased clearance as chest x-ray did not appear to be volume overloaded -Obtained CT of the chest which revealed multilobar pneumonia -Continue Zosyn and as azithromycin -Check strep pneumo and Legionella antigens - Add sputum culture if patient able to produce - Urine cultures are pending - Continue broad-spectrum antibiotics CHRISTY on CKD stage IIIb - Baseline serum creatinine appears to be between 1.4 and 1.5 - Serum creatinine was 2.76 on admission and now up to greater than 5 - Will check serial BMPs - Discontinue Lasix drip as a suspect his decreased urine output is oliguria related to his CHRISTY - BNP elevation is likely related to decreased clearance due to kidney injury - Restart IV fluids with LR at 200 cc/h - May need bicarb drip depending on trends and bicarb and clinical status as he is tachypneic to compensate for his metabolic acidosis - Rate of rise seems to be stabilizing so we will hold off on further workup at this time and reevaluate tomorrow - Consult nephrology--> discussed with Dr. Chavez Rhabdomyolysis - CPK was greater than 18,000 and - Trending down and is now 8000 - Continue IV fluids aggressively Urinary retention secondary to urethral stricture/hematuria - Larkin unable to be placed in the emergency department - Urology placed Larkin and will need to leave in until discharge - Start Flomax 0.4 daily - Outpatient follow-up with Dr. Rg after discharge Anion gap metabolic acidosis - Likely related to renal dysfunction - Restart LR and discontinue Lasix drip - Serial BMPs - Patient is working to maintain pH but appears to have triple acid-base disorder with a metabolic acidosis and a respiratory alkalosis and acidosis - May need bicarb Lactic acidosis - Resolved DM-2 uncontrolled - Hyperglycemic on presentation but fasting blood sugar this morning was 167 - Hold home metformin - A1c was 8.1 indicative of poor overall control History of DVT - Has IVC filter - Will start heparin drip with severity of illness as he would not tolerate PE well 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 - Has chronic disability but lives alone - Continue aspirin Essential hypertension/hyperlipidemia - Continue home metoprolol - Hold home lisinopril with renal dysfunction - continue home statin Chronic HFrEF - Stable with no signs of decompensation - BNP is elevated however I suspect this is related to decreased clearance basedon imaging and clinical status Parkinson's disease with recent fall - Continue home carbidopa levodopa - PT/OT following Seasonal allergies - Continue home loratadine History of developmental delay - Complicates overall medical history DVT prophylaxis - Heparin drip for now and restart apixaban once renal function is improved CODE STATUS - Full code Charges/Coding Visit Charges Inpatient E&M: 03948 Subs Hosp L3 10/19/24 1344 <Electronically signed by Nathalia Garcia DO> Cosigner Signature (if applicable): CC: ~ Signed ADDENDUM by Dr. Nathalia Garcia DO on 10/19/24 at 1349 Addendum Acute hypoxic respiratory failure - Patient developed respiratory distress overnight - Initially thought was related to heart failure due to elevated BNP however suspect this is related to decreased clearance with more data available today - CT of the chest shows multifocal pneumonia which I highly suspect may be related to aspiration given clinical situation on arrival however will assess sputum culture, strep pneumo and Legionella antigens and broaden antibiotics to include Zosyn and azithromycin for now - Add pulmonary toilet including incentive spirometry and Acapella - Patient is tachypneic however this is related to his acid-base status - Continue oxygen at 2 L and wean as able as patient is not oxygen dependent at baseline 10/19/24 1349<Electronically signed by Nathalia Garcia DO> Cosigner Signature (if applicable): cc: ~* Signed [facility] Work Phone: 1(956) 737-976109-13-2025 Radiology Diagnostic study [facility]09-13-2025 Radiology Diagnostic study [facility]09-12-2025 Progress note Author Nathalia Garcia [facility] Note Date/Time October 18, 2024 7:17pm [facility] Medical Records Department [address] [place] [id number] Progress Note - Hospitalist 10/18/24 0806 MR#: [id number] Acct: [id number] Name: GUSTAVO PATTON Rep #:[id number] : 1950 73 From: Nathalia Garcia DO PCP: Dr. Tracie Abreu MD Status:ADM IN Location: [place] [address] Reason for Visit Chief Complaint: Fall at Home. Subjective Subjective Patient denies any current pain. States he is feeling okay. No complaints at this time. Objective Data Objective Data Vital Signs: Vital Signs Temp Pulse Resp BP Pulse Ox O2 Del Method 99.4 F H 113 H 18 108/66 93 Room Air 10/18/24 07:00 10/18/24 06:20 10/18/24 06:20 10/18/24 06:20 10/18/24 06:20 10/18/24 06:20 Oxygen Delivery Method Room Air Weight: 77.111 kg Body Mass Index (BMI) 24.3 Intake & Output: Intake and Output for Last 24 Hours 10/16/24 10/17/24 10/18/24 23:59 23:59 23:59 Intake Total 2429.17 / 2429.17 1050 / 1050 Output Total 0 / 0 Balance 2429.17 / 2429.17 1050 / 1050 Lab / Micro Data 10/17/24 18:24 10/18/24 05:36 Labs: Laboratory Results - last 24 hr 10/17/24 18:24: WBC 15.5 H, RBC 4.48 L, Hgb 13.7, Hct 41.0, MCV 91.5, MCH 30.6, MCHC 33.4, RDW Std Deviation 43.2, RDW Coeff of Sara 12.9, Plt Count 275, MPV 12.2 H, Immature Gran % (Auto) 0.300, Neut % (Auto) 88.6 H, Lymph % (Auto) 2.7 L, Scurry % (Auto) 7.1, Eos % (Auto) 0.8, Baso % (Auto) 0.5, Absolute Neuts (auto) 13.7 H, Absolute Lymphs (auto) 0.41 L, Nucleated RBC % 0, PT 19.7 H, INR 1.6, APTT 33.3, Sodium 138, Potassium 4.5, Chloride 98, Carbon Dioxide 21.0, Anion Gap 19 H, BUN 55 H, Creatinine 2.76 H, Estim Creat Clear Calc 25.35 L, Est GFR (MDRD) Non-Af 24 L, BUN/Creatinine Ratio 20.1 H, Glucose 344 H, Hemoglobin A1c 8.1 H, Lactic Acid 3.6 H*, Calcium 9.5, Total Bilirubin 0.76, AST 392 H, ALT 77 H, Alkaline Phosphatase 104, Total Creatine Kinase 23587 H, Troponin T High Sens64 H*, Total Protein 8.2, Albumin 4.0, Globulin 4.3 H, Albumin/Globulin Ratio 0.9 10/17/24 19:23: POC Glucose 320 H 10/17/24 20:25: Troponin T Hi Sens 2 Hr 69 H*, PSA Screen 0.80, TSH 0.834 10/17/24 21:17: Lactic Acid 1.7, Serum Folate 38.40 H 10/17/24 22:47: Lactic Acid 2.0, Troponin T Hi Sens 4Hr 67 H*, Vitamin B12 680 10/18/24 04:58: Total Creatine Kinase 16613 H, Triglycerides 89, Cholesterol 84,LDL Cholesterol, Calc 31, VLDL Cholesterol 18, HDL Cholesterol 35 L, Cholesterol/HDL Ratio 2.40 10/18/24 06:13: POC Glucose 167 H ABG Data ABG results: ABG 10/17/24 10/18/24 18:27 07:25 Specimen Type ART SYED Sample Site L Radial Not entered pH 7.50 H Bicarbonate Actual 20.2 L Total CO2 21 Base Excess -3 L O2 Saturation 96 O2 % 21.0 ABG pCO2 26.1 L ABG pO2 70 L Luis Miguel Test Positive VBG pH 7.44 H VBG pO2 162 H VBG HCO3 22 VBG Total CO2 23 VBG O2 Sat (Calc) 100 H VBG Base Excess -2 L POC Mix VBG pCO2 Pt Tmp 32.5 L O2 Delivery Device Room Air Not entered Vent Mode Not entered Radiography Diagnostic Testing: Radiology Impression Brain CT 10/17/24 18:06 IMPRESSION: No evidence of acute intracranial pathology. Advanced chronic small-vessel ischemic changes with multiple patchy areas of old infarct involving the bilateral cerebral hemispheres. Reading Location: [facility] Chest X-Ray 10/17/24 18:25 IMPRESSION: Small left pleural effusion, superimposed consolidation not excluded. Reading [facility] Physical Exam Const alert, oriented x3, no apparent distress, average body habitus and well nourished Constitutional Narrative: Older, white male, with bradykinesia and a flat affect, appears comfortable, does not appear toxic HEENT moist oral mucous membranes HEENT Narrative: Large abrasion over right anterior nasal region but no significant ecchymosis oredema Head and Scalp: normocephalic Resp normal respiratory effort, no retractions, no use of accessory muscles and clearto auscultation bilaterally Auscultation: Negative for rales, rhonchi or wheezes Cardio regular rate, regular rhythm, S1 normal heart sound, S2 normal heart sound, no murmurs, no rub, no gallops and no clicks GI normal to inspection, nondistended, normoactive bowel sounds, soft to palpation and non-tender Extremity no clubbing, cyanosis or edema Extremity Narrative: 2+ pedal and radial pulses Neuro moves all extremities and no focal motor deficits Neuro Narrative: Bradykinesia, speech is clear and normal but response times are somewhat delayed Psych Negative for affect normal Psych Narrative: Affect is flat but patient makes good eye contact and interacts appropriately Assessment & Plan Assessment/Plan (1) Chronic anticoagulation: (2) Hematuria: QUALIFIERS: Hematuria type: unspecified type Qualified Code(s): R31.9 - Hematuria, unspecified (3) Fall: QUALIFIERS: Encounter type: initial encounter Qualified Code(s): W19.XXXA - Unspecified fall, initial encounter (4) Rhabdomyolysis: QUALIFIERS: Rhabdomyolysis type: non-traumatic Qualified Code(s):M62.82 - Rhabdomyolysis (5) CHRISTY (acute kidney injury): (6) SIRS (systemic inflammatory response syndrome): (7) High anion gap metabolic acidosis: (8) Urethral stricture: PLAN: Plan Sepsis - Patient technically meets sepsis criteria with leukocytosis, lactic acidosis and CHRISTY however no identifiable infectious source had been identified - Sepsis protocol was initiated - Urine cultures are pending - Continue broad-spectrum antibiotics - If infection is ruled out we will discontinue antibiotics CHRISTY on CKD stage IIIb - Baseline serum creatinine appears to be between 1.4 and 1.5 - Serum creatinine presentation was 2.76 with rhabdo myelosis noted - Avoid nephrotoxins - Continue IV fluids - Rate of rise seems to be stabilizing so we will hold off on further workup at this time and reevaluate tomorrow Rhabdomyolysis - CPK was greater than 18,000 and - Repeat CPK in a.m. - Continue IV fluids aggressively Urinary retention secondary to urethral stricture/hematuria - Larkin unable to be placed in the emergency department - Urology consult with stricture found - DC with Larkin and outpatient follow-up with urology - Start Flomax 0.4 daily Anion gap metabolic acidosis - Likely related to renal dysfunction - Will utilize LR - pH is normal but patient is blowing down CO2 to less than 30 - Repeat BMP in a.m. 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 - Has chronic disability but lives alone - Continue aspirin Essential hypertension/hyperlipidemia - Continue home metoprolol - Hold home lisinopril with renal dysfunction - continue home statin Chronic HFrEF - Stable with no signs of decompensation Parkinson's disease with recent fall - Continue home carbidopa levodopa - PT/OT consultation Seasonal allergies - Continue home loratadine History of developmental delay - Complicates overall medical history DVT prophylaxis SCDs - Restart apixaban once renal function stabilizes CODE STATUS - Full code Charges/Coding Visit Charges Inpatient E&M: 87608 Subs Hosp L2 10/18/241916 <Electronically signed by Nathalia Garcia DO> Cosigner Signature (if applicable): CC: ~ Signed [facility] Work Phone: 1(312) 161-418409-12-2025 Consult note Author Jose R Rg [facility] Note Date/Time October 18, 2024 11:57am [facility] System Medical Records Department [address] [place] [address] Consultation 10/18/24 1154 MR#: [id number] Acct: [id number] Name: GUSTAVO PATTON Rep #:[id number] : 1950 73 From: Jose R Rg MD PCP: Dr. Tracie Abreu MD Status:ADM IN Location: [place] [address] Assessment & Plan Assessment/Plan (1) Urinary retention: PLAN: Larkin placed not able to urinate he had a mild urethral stricture probablyneeds to go to rehab or home with a Larkin catheter follow-up as an outpatient atthe catheter removed later on once that heals up should be okay once to get the catheter out (2) Hematuria: QUALIFIERS: Hematuria type: unspecified type Qualified Code(s): R31.9 - Hematuria, unspecified HPI Consult Data Date of Consult: 10/18/24 HPI Narrative Reason for Consultation: Unable to place Larkin catheter retention of urine HPI Narrative: GUSTAVO PATTON, is a 73 M who presents to the hospital after a fall and purely he is dehydrated has rhabdomyolysis has not been able to urinate nursing staff attempted to place a Larkin catheter were not successful in the met resistance soI came by and put a wire through and then over the wire I put in a 16 Sammarinese augustine tip catheter he did have a mild urethral stricture and this was preventing the catheters from going in but once we get the catheter over the wire was able to get in the bladder had darkish yellow urine coming out the bladder 10 cc in the balloon and put to gravity drainage he can keep the Larkin in place follow-up as an outpatient to remove the catheter call me with any questions. [facility] Medical History Facial droop Dysphagia Primary cardiomyopathy Essential (primary) hypertension Diastolic heart failure History of developmental delay History of DVT (deep vein thrombosis) Remote history of stroke DM II (diabetes mellitus, type II), controlled Dysarthria Stroke/cerebrovascular accident Home Medications ?Medication ?Instructions ?Recorded ?Last Taken ?Type multivitamin 1 cap PO DAILY supplement 11/24/22 History atorvastatin 40 mg tablet 40 mg PO QHS #30 tabs Unknown Rx lisinopril 2.5 mg tablet 2.5 mg PO DAILY #30 tabs Unknown Rx metoprolol succinate 25 mg 25 mg PO DAILY #30 tabs Unknown Rx tablet,extended release 24 hr loratadine 10 mg tablet (Allergy 10 mg PO DAILY Unknown History Relief (loratadine)) sennosides 8.6 mg tablet (Senna 8.6 mg PO QHS 01/20/23 Unknown History Lax) metformin 500 mg tablet 500 mg PO DAILY 05/23/23 Unk nown History pantoprazole 20 mg tablet,delayed 20 mg PO DAILY 05/22 Unknown History release apixaban 5 mg tablet (Eliquis) 5 mg PO BID 11/09/23 Un known History aspirin 81 mg chewable tablet 81 mg PO QDAY 11/09/23 U nknown History carbidopa 25 mg-levodopa 100 mg 2 tab PO TID 11/09/23 Unknown History tablet ipratropium bromide 21 mcg (0.03 2 spray intranasal TI D PRN nasal 11/09/23 Unknown History %) nasal spray congestion Allergy/AdvReac Type Severity Reaction Status Date / Time No Known Allergies Allergy Verified 10/17/24 22:17 Family History Father Diabetes Social History household members: none housing: apartment number of children: 0 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 pets and animals: No Smoking Status: Never smoker alcohol intake: never substance use type: does not use Physical Exam Const alert and oriented x3 General Appearance: cooperative HEENT normocephalic and head/scalp atraumatic Eyes PERRL and EOMs intact bilaterally Neck supple, no JVD and no carotid bruits Resp normal respiratory effort, normal air movement and clear to auscultation bilaterally Cardio regular rate and no murmurs GI normal to inspection, nondistended, normoactive bowel sounds and soft to palpation Extremity normal capillary refill General Extremity: no tenderness to palpation of joints or extremities; Negativefor edema Skin no rashes or lesions noted and no wounds General Skin Exam: no breakdown Neuro CN's II-XII intact bilaterally Psych affect normal Appearance: appropriate Lab / Micro Data 10/17/24 18:24 10/18/24 05:36 Labs: Laboratory Results - last 24 hr 10/17/24 18:24: WBC 15.5 H, RBC 4.48 L, Hgb 13.7, Hct 41.0, MCV 91.5, MCH 30.6, MCHC 33.4, RDW Std Deviation 43.2, RDW Coeff of Sara 12.9, Plt Count 275, MPV 12.2 H, Immature Gran % (Auto) 0.300, Neut % (Auto) 88.6 H, Lymph % (Auto) 2.7 L, Scurry % (Auto) 7.1, Eos % (Auto) 0.8, Baso % (Auto) 0.5, Absolute Neuts (auto) 13.7 H, Absolute Lymphs (auto) 0.41 L, Nucleated RBC % 0, PT 19.7 H, INR 1.6, APTT 33.3, Sodium 138, Potassium 4.5, Chloride 98, Carbon Dioxide 21.0, Anion Gap 19 H, BUN 55 H, Creatinine 2.76 H, Estim Creat Clear Calc 25.35 L, Est GFR (MDRD) Non-Af 24 L, BUN/Creatinine Ratio 20.1 H, Glucose 344 H, Hemoglobin A1c 8.1 H, Lactic Acid 3.6 H*, Calcium 9.5, Total Bilirubin 0.76, AST 392 H, ALT 77 H, Alkaline Phosphatase 104, Total Creatine Kinase 58200 H, Troponin T High Sens64 H*, Total Protein 8.2, Albumin 4.0, Globulin 4.3 H, Albumin/Globulin Ratio 0.9 10/17/24 19:23: POC Glucose 320 H 10/17/24 20:25: Troponin T Hi Sens 2 Hr 69 H*, PSA Screen 0.80, TSH 0.834 10/17/24 21:17: Lactic Acid 1.7, Serum Folate 38.40 H 10/17/24 22:47: Lactic Acid 2.0, Troponin T Hi Sens 4Hr 67 H*, Vitamin B12 680 10/18/24 04:58: Total Creatine Kinase 01471 H, Triglycerides 89, Cholesterol 84,LDL Cholesterol, Calc 31, VLDL Cholesterol 18, HDL Cholesterol 35 L, Cholesterol/HDL Ratio 2.40 10/18/24 05:36: Sodium 138, Potassium 4.8, Chloride 105, Carbon Dioxide 15.7 L, Anion Gap 18 H, BUN 58 H, Creatinine 2.85 H, Estim Creat Clear Calc 24.55 L, EstGFR (MDRD) Non-Af 23 L, BUN/Creatinine Ratio 20.5 H, Glucose 176 H, Calcium 8.2 10/18/24 06:13: POC Glucose 167 H ABG Data ABG results: ABG 10/17/24 10/18/24 18:27 07:25 Specimen Type ART SYED Sample Site L Radial Not entered pH 7.50 H Bicarbonate Actual 20.2 L Total CO2 21 Base Excess -3 L O2 Saturation 96 O2 % 21.0 ABG pCO2 26.1 L ABG pO2 70 L Luis Miguel Test Positive VBG pH 7.44 H VBG pO2 162 H VBG HCO3 22 VBG Total CO2 23 VBG O2 Sat (Calc) 100 H VBG Base Excess -2 L POC Mix VBG pCO2 Pt Tmp 32.5 L O2 Delivery Device Room Air Not entered Vent Mode Not entered Imaging Radiology Impression Brain CT 10/17/24 18:06 IMPRESSION: No evidence of acute intracranial pathology. Advanced chronic small-vessel ischemic changes with multiple patchy areas of old infarct involving the bilateral cerebral hemispheres. Reading Location: [facility] Chest X-Ray 10/17/24 18:25 IMPRESSION: Small left pleural effusion, superimposed consolidation not excluded. Reading Location: [facility] 10/18/24 1157 <Electronically signed by Jose R Rg MD> Cosigner Signature (if applicable): CC: Dr. Tracie Abreu MD~ Signed [facility] Work Phone: 1(265) 363-224709-12-2025 [facility]09-12-2025 History and physical note Author Kenrick Abraham [facility] Note Date/Time October 18, 2024 6:22am [facility] Medical Records Department [address] [place] [id number] H&P Exam - Hospitalist 10/17/242012 MR#: [id number] Acct: [id number] Name: GUSTAVO PATTON Rep #:[id number] : 1950 73 From: Kenrick Andres DO PCP: Dr. Tracie Abreu MD Status:ADM IN Location: [place] [id number] HPI - General General Date of Admission: 10/17/24 Date of Service: 10/17/24 Chief Complaint: Fall at Home. 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 HS, seasonal allergies; on loratadine andOA who presents to [facility] ER complaining of fall at home. Mr. Patton is not a fully-reliable historian at this time so information was gathered from vincent, medical staff and computer. According to the records he waslast seen well ~3 days ago with the patient not sure when he fell or how he fell- but he admits he was unable to get up off the floor. When EMS was activated they noted patient was incontinent of urine and stool with Larkin unable to be placed with subsequent hematuria. He was also unaware he had sustained a laceration of his nose with swelling until the ER physician informed him in addition to statin he thinks he was on the floor for only an hour - which is highly doubtful. He admits to generalized weakness and easy bleeding/bruising on apixaban. He denies associated fever, chills, nausea, vomiting, abdominal pain, headache, visual changes, paresthesias, tinnitus, decreased hearing, chestpain, palpitations, heart racing, dysuria or hematuria. In the ER he was noted to have a low-grade Fever of 99.6 degrees Fahrenheit, Leukocytosis of 15.5K, Lactic Acidosis of 3.6 mmol/L and persistent Tachycardia in the ~125 bpm range consistent with SIRS; with no identifiable source of infection at this time complicated by CHRISTY; with elevated serum creatinine of 2.76 mg/dL (up from his previous baseline of 1.46 mg/dL) likely due to Rhabdomyolysis; evidenced by highly elevated CPK of 16,437 U/L after recent Fall with suspected prolonged down-time compounded by Hyperglycemia of 344 mg/dL; indicating uncontrolled DM-2present on admission in addition to clinical evidence of Hematuria with Urinary Retention causing Larkin to be unable to be placed in ER with an elevated anion gap of 19 present on admission with CXR and Head CT done in ER unremarkable for acute pathologic findings. He was then admitted to the PCU for treatment under the Sepsis protocol for a stay that is expected to extend beyond 2 midnights. [facility] Medical History (Updated 10/18/24 @ 02:[address] Kenrick Ng, DO) Facial droop Dysphagia Primary cardiomyopathy Essential (primary) hypertension Diastolic heart failure History of developmental delay History of DVT (deep vein thrombosis) Remote history of stroke DM II (diabetes mellitus, type II), controlled Dysarthria Stroke/cerebrovascular accident Home Medications ?Medication ?Instructions ?Recorded ?Last Taken ?Type multivitamin 1 cap PO DAILY supplement 11/24/22 History atorvastatin 40 mg tablet 40 mg PO QHS #30 tabs Unknown Rx lisinopril 2.5 mg tablet 2.5 mg PO DAILY #30 tabs Unknown Rx metoprolol succinate 25 mg 25 mg PO DAILY #30 tabs Unknown Rx tablet,extended release 24 hr loratadine 10 mg tablet (Allergy 10 mg PO DAILY Unknown History Relief (loratadine)) sennosides 8.6 mg tablet (Senna 8.6 mg PO QHS 01/20/23 Unknown History Lax) metformin 500 mg tablet 500 mg PO DAILY 05/23/23 Unk nown History pantoprazole 20 mg tablet,delayed 20 mg PO DAILY 05/22 Unknown History release apixaban 5 mg tablet (Eliquis) 5 mg PO BID 11/09/23 Un known History aspirin 81 mg chewable tablet 81 mg PO QDAY 11/09/23 U nknown History carbidopa 25 mg-levodopa 100 mg 2 tab PO TID 11/09/23 Unknown History tablet ipratropium bromide 21 mcg (0.03 2 spray intranasal TI D PRN nasal 11/09/23 Unknown History %) nasal spray congestion Allergy/AdvReac Type Severity Reaction Status Date / Time No Known Allergies Allergy Verified 10/17/24 22:17 Family History Father Diabetes Social History household members: none housing: apartment number of children: 0 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 pets and animals: No Smoking Status: Never smoker alcohol intake: never substance use type: does not use ROS ROS Narrative Review of Systems: Constitutional: Patient denies fever or chills. Eyes: Patient denies changes in vision or discharge from eyes. ENT: Patient admits to nasal swelling and laceration but he denies runny nose, sore throat or ear pain. Resp: Patient denies SOB or cough. CV: Patient denies chest pain, palpitations or heart racing. GI: Patient denies abdominal pain, nausea, vomiting or diarrhea with HPI indicating incontinence of stool. : Patient noted to have hematuria and urinary retention in ER but he denies complaints. MSK: Patient admits to generalized weakness after recent fall but he denies arthralgias or myalgias. Skin: Patient has no evidence of rash, abscess, wounds or jaundice. Psych: Patient denies symptoms of uncontrolled depression or anxiety. Neuro: Patient admits to generalized weakness and chronic debility after multiple CVA's with no new neurologic deficit, paresthesias or headache as per HPI. Allergy: Patient denies lip swelling, tongue swelling or urticaria. Hematology: Patient admits to easy bleeding and easy bruisability on apixaban. Endocrinology: Patient denies polyuria, polydipsia, polyphagia or heat/cold intolerance. 14 point ROS otherwise negative except for positives noted above in HPI. Vital Signs Vital Signs Vital Signs: 10/17/24 18:07 10/17/24 18:11 10/17/24 18:41 Temperature 99.7 F H 99.7 F H Temperature Source Oral Oral Pulse Rate 130 H 132 H Respiratory Rate 24 H 24 H Respiratory Effort Normal Non-Labored Blood Pressure 127/71 H 127/71 H Blood Pressure Mean 89 89 Pulse Ox 94 97 Oxygen Delivery Method Room Air Room Air 10/17/24 19:04 10/17/24 19:11 10/17/24 20:00 Temperature 99.7 F H 99.6 F H Temperature Source Oral Oral Pulse Rate 122 H 123 H 126 H Respiratory Rate 24 H 23 H 29 H Respiratory Effort Blood Pressure 104/76 104/76 111/54 L Blood Pressure Mean 85 85 73 Pulse Ox 93 93 94 Oxygen Delivery Method Room Air Room Air Room Air Weight Weight: 174 lb 9.698 oz Body Mass Index (BMI) 25.0 Physical Exam Const alert, oriented x3, no apparent distress and average body habitus Constitutional Narrative: Chronically ill but nontoxic appearance. General Appearance: cooperative HEENT normocephalic and hearing grossly normal bilaterally HEENT Narrative: Mucous membranes dry with dry blood in swollen nares and large laceration diagonally across the nose. Eyes PERRL, EOMs intact bilaterally and conjunctivae normal Neck no lymphadenopathy, supple and no JVD Resp normal respiratory effort, no retractions, no use of accessory muscles and clearto auscultation bilaterally Cardio regular rate and regular rhythm Cardio Narrative: Persistent tachycardia in the ~125 bpm range noted. GI normal to inspection, nondistended, normoactive bowel sounds, soft to palpation,non-tender and non-distended Extremity Extremity Narrative: Mottling of all extremities with trace edema and delayed capillary refill noted. Skin Skin Narrative: Patient has mottling of extremities but no rash. Neuro oriented x3, CN's II-XII intact bilaterally, moves all extremities and no focal motor deficits Sensorium / Orientation: awake, alert, oriented to person, oriented to place andoriented to time Speech: speech normal Psych affect normal Results Medical Records Data Attestation: I reviewed the patient's medical records Lab / Micro Data Attestation: I reviewed the patient's lab results. 10/17/24 18:24 10/17/24 18:24 Labs: Laboratory Results - last 24 hr 10/17/24 18:24: WBC 15.5 H, RBC 4.48 L, Hgb 13.7, Hct 41.0, MCV 91.5, MCH 30.6, MCHC 33.4, RDW Std Deviation 43.2, RDW Coeff of Sara 12.9, Plt Count 275, MPV 12.2 H, Immature Gran % (Auto) 0.300, Neut % (Auto) 88.6 H, Lymph % (Auto) 2.7 L, Scurry % (Auto) 7.1, Eos % (Auto) 0.8, Baso % (Auto) 0.5, Absolute Neuts (auto) 13.7 H, Absolute Lymphs (auto) 0.41 L, Nucleated RBC % 0, PT 19.7 H, INR 1.6, APTT 33.3, Sodium 138, Potassium 4.5, Chloride 98, Carbon Dioxide 21.0, Anion Gap 19 H, BUN 55 H, Creatinine 2.76 H, Estim Creat Clear Calc 25.35 L, Est GFR (MDRD) Non-Af 24 L, BUN/Creatinine Ratio 20.1 H, Glucose 344 H, Lactic Acid 3.6 H*, Calcium 9.5, Total Bilirubin 0.76, AST 392 H, ALT 77 H, Alkaline [id number], Total Creatine Kinase 78160 H, Total Protein 8.2, Albumin 4.0, Globulin 4.3H, Albumin/Globulin Ratio 0.9 10/17/24 19:23: POC Glucose 320 H ABG Data ABG results: ABG 10/17/24 18:27 Specimen Type ART Sample Site L Radial pH 7.50 H Bicarbonate Actual 20.2 L Total CO2 21 Base Excess -3 L O2 Saturation 96 O2 % 21.0 ABG pCO2 26.1 L ABG pO2 70 L Luis Miguel Test Positive O2 Delivery Device Room Air Vent Mode Not entered Imaging Radiology Impression Brain CT 10/17/24 18:06 IMPRESSION: No evidence of acute intracranial pathology. Advanced chronic small-vessel ischemic changes with multiple patchy areas of old infarct involving the bilateral cerebral hemispheres. Reading Location: [facility] Chest X-Ray 10/17/24 18:25 IMPRESSION: Small left pleural effusion, superimposed consolidation not excluded. Reading Location: [facility] Assessment & Plan Assessment/Plan (1) SIRS (systemic inflammatory response syndrome): (2) Sinus tachycardia seen on teletypesetter monitor: (3) CHRISTY (acute kidney injury): (4) Rhabdomyolysis: QUALIFIERS: Rhabdomyolysis type: non-traumatic Qualified Code(s):M62.82 - Rhabdomyolysis (5) Fall: QUALIFIERS: Encounter type: initial encounter Qualified Code(s): W19.XXXA - Unspecified fall, initial encounter (6) Hematuria: QUALIFIERS: Hematuria type: unspecified type Qualified Code(s): R31.9 - Hematuria, unspecified (7) Urinary retention: (8) High anion gap: (9) Hyperglycemia due to type 2 diabetes mellitus: QUALIFIERS: Diabetes mellitus intermodal customer service insulin use: without residential use Qualified Code(s): E11.65 - Type 2 diabetes mellitus with hyperglycemia (10) Stroke/cerebrovascular accident: QUALIFIERS: CVA mechanism: stenosis Laterality of affected vessel: right Precerebral and cerebral artery: anterior cerebral artery Qualified Code(s): I63.521 - Cerebral infarction due to unspecified occlusion or stenosis of right anterior cerebral artery (11) Parkinson disease: QUALIFIERS: Dyskinesia presence: unspecified whether dyskinesia Fluctuating manifestations: unspecified whether manifestations fluctuate Qualified Code(s): G20.A1 - Parkinson's disease without dyskinesia, without mention of fluctuations (12) History of DVT (deep vein thrombosis): (13) Chronic anticoagulation: PLAN: Plan 1. Low-grade Fever of 99.6 degrees Fahrenheit, Leukocytosis of 15.5K, Lactic Acidosis of 3.6 mmol/L and persistent Tachycardia in the ~125 bpm range consistent with SIRS; with no identifiable source of infection at this time - Admit to PCU for treatment under the Sepsis protocol. 2. CHRISTY; with elevated serum creatinine of 2.76 mg/dL (up from his previous baseline of 1.46 mg/dL) complicating #1 - Aggressively volume resuscitate and recheck renal indices daily to follow trend. We will avoid potentially nephrotoxic agents. 3. Rhabdomyolysis; evidenced by highly elevated CPK of 16,437 U/L after recent Fall with suspected prolonged down-time likely causing #2 with subsequent Generalized Weakness - Give copious IVF and serialize CPK daily to follow trend. 4. Hematuria with Urinary Retention causing Larkin to be unable to be placed in ER with an elevated anion gap of 19 present on admission compounding #1 - #3 - Check PSA screen and consult urology if patient continues to have urinary retention and Larkin cannot be placed in ER. 5. Hyperglycemia of 344 mg/dL; indicating uncontrolled DM-2 present on admission compounding #1 - #4 - ADA diet. FSBS q. AC/HS plus SSI. Hold metformin. Check HgbA1c to objectively evaluate quality of diabetic control. 6. History of multiple CVA's with hemorrhagic conversion after TNK; with subsequent facial droop, dysarthria, dysphagia and Right-sided weakness with chronic debility on BASA daily adding to the medical complexity of #1 - #5 - 7. Parkinson's disease; on carbidopa-levodopa TID adding to the burden of disease outlined from #1 - #6 - Maintain current treatment. 8. History of DVT (2021); s/p IVC filter on apixaban - Hold apixaban in light of #4. 9. History of developmental delay - Noted. 10. Essential hypertension; on metoprolol and lisinopril - 11. Hyperlipidemia; on atorvastatin - 12. Chronic diastolic CHF; with preserved LVEF - Stable. 13. GERD; on pantoprazole - Maintain PPI. 14. Chronic constipation; on sennosides q. HS - Resume sennosides q. HS as before. 15. Seasonal allergies; on loratadine - Continue current therapy. 16. OA - Give acetaminophen prn as noted in #1. 17. DVT prophylaxis - Hold apixaban in light of #4. Place SCD's. Total time: Approximately (but not less than) 75 minutes. Sepsis Attestation Sepsis Alert: Yes Sepsis Attestation: Agree w/Sepsis Date exam was performed: 10/17/24 Time exam was performed: 21:00 Possible Source of Sepsis: Genitourinary and Unknown Sepsis Organ Dysfunction Criteria Present: Creatinine > 2.0 mg/dL, UOP < 0.5 mL/kg/hour for 2 consecutive hours, Lactic Acid > 2 mmol/L and New/Unexplained change in mental status Fluid Resuscitation Fluid resuscitation indicated?: Yes Fluid Resuscitation ordered: 30 ml/kg fluid bolus ordered Amount of fluid ordered: 2 Sepsis Note Date exam was performed: 10/18/24 Time exam was performed: 01:00 Sepsis Attestation: Sepsis re-evaluation was performed Response to fluids: Fluid responsive hypotension Charges/Coding Visit Charges Inpatient E&M: 92903 Init Hosp L3 10/18/24 0622 <Electronically signed by Kenrick Ng DO> Cosigner Signature (if applicable): CC: Dr. Tracie Abreu MD; Dr. Kenrick Ng DO~ Signed [facility] Work Phone: 1(180) 343-339909-11-2025 Evaluation note* Diagnosis Onset Date Resolution Status Admit Date Debility acute October 8:58pm Unable to ambulate acute [facility] ino 2024 8:58pm Urethral stricture acute [facility] ino 2024 8:58pm Urinary retention acute [facility] er 2024 8:58pm Acidosis, lactic resolved [facility] 2024 8:58pm Acute renal failure due to rhabdomyolysis resolved October 17, 2024 8:58pm CHRISTY (acute kidney injury) resolved October 17, 2024 8:58pm Closed head injury resolved Oct ino 2024 8:58pm Elevated troponin resolved Sept[facility] er 2024 8:58pm Fall resolved October 8:58pm Hematuria resolved October 8:58pm High anion gap resolved October 17, 2024 8:58pm High anion gap metabolic acidosis resolved October 17, 2024 8:58pm Laceration of nose resolved ino 2024 8:58pm Rhabdomyolysis resolved October 17, 2024 8:58pm Sinus tachycardia seen on teletypesetter monitor resolved October 17, 2024 8:58pm SIRS (systemic inflammatory response syndrome) resolved October 8:58pm Chronic anticoagulation inactive S eptember 2024 8:58pm Essential (primary) hypertension inactive October 17, 2024 8:58pm History of DVT (deep vein thrombosis) inactive October 17, 2024 8:58pm History of multiple strokes inactive October 17, 2024 8:58pm Hyperglycemia due to type 2 diabetes mellitus inactive October 8:58pm Parkinson disease inactive er 2024 8:58pm Primary cardiomyopathy inactive Se ptember 2024 8:58pm Stroke/cerebrovascular accident inactive October 17, 2024 8:58pm [facility] Work Phone: [phone] 296-401309-11-2025 Discharge summary Author Gamal Irwin [facility] Note Date/Time October 17, 2024 8:16pm [facility] Medical Records Department [address] [place] [address] Emergency Department Summary 10/17/24 MR#: [id number] Acct: [id number] Name: GUSTAVO PATTON Rep #:[id number] : 1950 73 From: Gamal Irwin MD PCP: Dr. Tracie Abreu MD Status:REG ER Location: ED HPI History of Present Illness Chief Complaint: Fall Detail of Chief Complaint: Patient last seen well 3 days ago. Family called paramedics because he was Informant: patient and EMS Onset/Context/Timing Onset: - (Last seen well 3 days ago) Context: - (Unknown. Patient does not know when he fell) Timing: - (Unable to get up off the floor.) Quality: Patient has no complaints Location: Found on bedroom floor. Incontinent of urine and stool Current Severity: Patient denies any symptoms Maximum Severity: Patient denies any symptoms Worsened by: Nothing per patient Relieved by: Not applicable Associated Symptoms Associated Symptoms: Unable to get up and when asked why he had no response. Narrative Narrative: Patient is a active 73-year-old per EMS. He is awake but not alert. He is oriented. He cannot explain why or how he fell. He does know the date, where he is at and his name. He denies headache. Denies double vision blurred vision loss of vision. He denies ringing in his ears decreased hearing. He was unaware that he has a swollen nose with a laceration. He denies dental pain. He denies inability to open or close his mouth. He denies neck pain. He denies chest pain. No shortness of breath. He denies abdominal pain, he denies nausea or vomiting. He denies dysuria, frequency, urgency or hematuria. He denies numbness or tingling in his arms or legs. He had a prior stroke which affected his right side. Did speak with EMS. Patient needed full assistance to get onto the cot. He wasnot able to get up even with minimal assistance. He told them he been on the ground for an hour. His findings are not consistent with him being on the ground for an hour. Squad also inform me that his pulse ox was 75%. They were not certain this is accurate since he had cold hands. The ABG that was obtainedon room air. Suspect was due to cold extremities. Recent Illness/Hospitalization: No [facility] Medical History Dysphagia Primary cardiomyopathy Essential (primary) hypertension Diastolic heart failure Facial droop History of developmental delay History of DVT (deep vein thrombosis) Remote history of stroke DM II (diabetes mellitus, type II), controlled Dysarthria Stroke/cerebrovascular accident Home Medications ?Medication ?Instructions ?Recorded ?Last Taken ?Type multivitamin 1 cap PO DAILY supplement 11/24/22 History atorvastatin 40 mg tablet 40 mg PO QHS #30 tabs Unknown Rx lisinopril 2.5 mg tablet 2.5 mg PO DAILY #30 tabs Unknown Rx metoprolol succinate 25 mg 25 mg PO DAILY #30 tabs Unknown Rx tablet,extended release 24 hr loratadine 10 mg tablet (Allergy 10 mg PO DAILY Unknown History Relief (loratadine)) sennosides 8.6 mg tablet (Senna 8.6 mg PO QHS 01/20/23 Unknown History Lax) metformin 500 mg tablet 500 mg PO DAILY 05/23/23 Unk nown History pantoprazole 20 mg tablet,delayed 20 mg PO DAILY 05/22 Unknown History release apixaban 5 mg tablet (Eliquis) 5 mg PO BID 11/09/23 Un known History aspirin 81 mg chewable tablet 81 mg PO QDAY 11/09/23 U nknown History carbidopa 25 mg-levodopa 100 mg 1 tab PO TID 11/09/23 Unknown History tablet ipratropium bromide 21 mcg (0.03 2 spray intranasal TI D PRN nasal 11/09/23 Unknown History %) nasal spray congestion Allergy/AdvReac Type Severity Reaction Status Date / Time No Known Allergies Allergy Verified 10/17/24 18:07 Family History Father Diabetes Social History household members: none housing: apartment number of children: 0 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 pets and animals: No Smoking Status: Never smoker alcohol intake: never substance use type: does not use ROS ROS ED Constitutional Constitutional ED: Denies chills, fever(s), subjective or sweats Eyes Eyes: Denies blurry vision or change in vision ENT ENT ED: Denies ear pain, rhinorrhea or sore throat Cardiovascular Cardiovascular: Denies chest pain or palpitations Respiratory/Chest Respiratory/Chest: Denies cough, dyspnea or dyspnea on exertion Gastrointestinal Gastrointestinal: Denies abdominal pain, diarrhea, nausea or vomiting Genitourinary Genitourinary ED: Denies dysuria or urinary frequency Musculoskeletal Musculoskeletal: Denies arthralgias or myalgias Integumentary Denies rash Neurologic Neurologic: Reports weakness; Denies headache(s) or paresthesias Endocrine Endocrinology: Denies cold intolerance or heat intolerance Hematologic/Lymphatic Hematologic/Lymphatic: Reports easy bruising Allergic/Immunologic Allergic/Immunologic ED: Denies mouth swelling or tongue swelling EXAM Physical Exam Const Vital Signs: 10/17/24 18:07 10/17/24 18:11 10/17/24 18:41 Temperature 99.7 F H 99.7 F H Temperature Source Oral Oral Pulse Rate 130 H 132 H Respiratory Rate 24 H 24 H Respiratory Effort Normal Non-Labored Blood Pressure 127/71 H 127/71 H Blood Pressure Mean 89 89 Pulse Ox 94 97 Oxygen Delivery Method Room Air Room Air 10/17/24 19:04 10/17/24 19:11 10/17/24 20:00 Temperature 99.7 F H 99.6 F H Temperature Source Oral Oral Pulse Rate 122 H 123 H 126 H Respiratory Rate 24 H 23 H 29 H Respiratory Effort Blood Pressure 104/76 104/76 111/54 L Blood Pressure Mean 85 85 73 Pulse Ox 93 93 94 Oxygen Delivery Method Room Air Room Air Room Air Positive well nourished, well developed and unkempt General Appearance ED: unkempt and well developed; Negative for cyanotic, diaphoretic or pallor HEENT Reports dry mucous membranes HEENT Narrative: Patient has bruising and laceration to the face. Ears normal. No hemotympanum. He has some blood in his nares. There is no septal deviation hematoma. Posterior pharynx without erythema or exudate. Mouth ED: Yes dry mucous membranes Mouth: dry mucous membranes Eyes PERRL and EOMs intact bilaterally Eyes Narrative: There is no nystagmus. General Eye ED: Negative for pale conjunctiva or scleral icterus Neck no lymphadenopathy, supple and no JVD Chest Wall inspection of chest normal and palpation of chest normal Resp normal respiratory effort and clear to auscultation bilaterally Cardio regular rhythm, S1 normal heart sound, S2 normal heart sound and no murmurs Rate: tachycardic GI normal to inspection, nondistended, normoactive bowel sounds, non-tender, non-distended and no masses; Negative for hepatosplenomegaly Narrative: Testes tender bilaterally. No scrotal swelling. Back/Spine no CVA tenderness Extremity Negative for normal to inspection Extremity Narrative: Patient has mottling of his distal upper and lower extremities. His hands and feet are cold to touch. Capillary refill in his hands and feet are delayed. General Extremety ED: Yes edema General Extremity: edema Neuro oriented x3 and CN's II-XII intact bilaterally Sensorium / Orientation: Negative for alert Motor Exam: strength 5/5 throughout Psych Appearance: unkempt Skin No no wounds General Skin Exam: Negative for elasticity normal, jaundice or pallor Sepsis Attestation Sepsis Alert: Yes Sepsis Attestation: Sepsis Ruled Out Date exam was performed: 10/17/24 Time exam was performed: 20:08 [facility] MDM MDM Narrative Medical decision making narrative: Since patient has had head trauma on anticoagulant we will obtain CT of the headto rule out intracranial bleed i.e. epidural hematoma, subdural hematoma, traumatic subarachnoid hemorrhage or intraparenchymal contusion. Since he is alert oriented has a nonfocal neurologic exam no posterior midline pain and fullactive range of motion without pain imaging of the neck was not obtained. EKG was obtained to assess for dysrhythmia or changes that may suggest hyperkalemia. Will obtain competence of metabolic panel to assess renal function, CO2 anion gap electrolytes and specifically hyponatremia hyperkalemia. UA was ordered to assess for evidence of infection. CPK to rule out rhabdomyolysis. Clinically he is dehydrated. 1 L normal saline was ordered. Lab Data Attestation: I reviewed the patient's lab results. Lab results narrative: White count is elevated. There is slight shift. There is no bandemia. H&H andindices are normal. Comprehensive metabolic panel is remarked for elevated BUN and creatinine of 55 and 2.76. Estimated GFR is 24. BUN to creatinine ratio is20:1. Glucose is elevated 344. CO2 is normal but the anion gap is elevated. CPK is greater than 16,000. PT is slightly elevated which may be due to the fact that he is on apixaban. Labs: Laboratory Results - last 24 hr 10/17/24 10/17/24 18:24 19:23 WBC 15.5 H RBC 4.48 L Hgb 13.7 Hct 41.0 MCV 91.5 MCH 30.6 MCHC 33.4 RDW Std Deviation 43.2 RDW Coeff of Sara 12.9 Plt Count 275 MPV 12.2 H Immature Gran % (Auto) 0.300 Neut % (Auto) 88.6 H Lymph % (Auto) 2.7 L Scurry % (Auto) 7.1 Eos % (Auto) 0.8 Baso % (Auto) 0.5 Absolute Neuts (auto) 13.7 H Absolute Lymphs (auto) 0.41 L Nucleated RBC % 0 PT 19.7 H INR 1.6 APTT 33.3 Sodium 138 Potassium 4.5 Chloride 98 Carbon Dioxide 21.0 Anion Gap 19 H BUN 55 H Creatinine 2.76 H Estim Creat Clear Calc 25.35 L Est GFR (MDRD) Non-Af 24 L BUN/Creatinine Ratio 20.1 H Glucose 344 H Lactic Acid 3.6 H* Calcium 9.5 Total Bilirubin 0.76 AST 392 H ALT 77 H Alkaline Phosphatase 104 Total Creatine Kinase 88491 H Total Protein 8.2 Albumin 4.0 Globulin 4.3 H Albumin/Globulin Ratio 0.9 POC Glucose 320 H ABG Data Attestation: I personally reviewed and interpreted this ABG as follows: Interpretation: ABG reveals alkalosis. pH 7.5, pCO2 26.1, pO2 71, O2 sat 96%, base excess -3, total CO2 21 and bicarb is slightly decreased at 20.2. This reveals an increased AA gradient and respiratory alkalosis. ABG results: ABG 10/17/24 18:27 Specimen Type ART Sample Site L Radial pH 7.50 H Bicarbonate Actual 20.2 L Total CO2 21 Base Excess -3 L O2 Saturation 96 O2 % 21.0 ABG pCO2 26.1 L ABG pO2 70 L Luis Miguel Test Positive O2 Delivery Device Room Air Vent Mode Not entered Radiography Chest X-Ray - ED: 1 View and Read by ED Physician (Single view chest x-ray reveals a left pleural effusion. There is no evidence of pneumothorax or obvious fractured ribs. Cardiac silhouette is unremarkable. Heart size is normal. Hilum is unremarkable.) Diagnostic Testing: Clinical Impression(s) from Imaging Studies Brain CT 10/17/24 18:06 IMPRESSION: No evidence of acute intracranial pathology. Advanced chronic small-vessel ischemic changes with multiple patchy areas of old infarct involving the bilateral cerebral hemispheres. Reading Location: [facility] Chest X-Ray 10/17/24 18:25 IMPRESSION: Small left pleural effusion, superimposed consolidation not excluded. [facility] CT of the head was reviewed. This reveals no evidence of intracranial bleed i.e. subdural hematoma, traumatic subarachnoid hemorrhage or contusion. There is evidence of multiple prior strokes. EKG Initial EKG: Attestation: I personally reviewed and interpreted this EKG as follows: Interpretation: Sinus Tachycardia (Rate is 130. Patient has incomplete right bundle branch block. Parables 142 ms. Cures duration 102 ms. QT duration Winston 12 ms. [place] is unremarkable. Patient has nonsevere changes which may represent many things. There is no obvious acute ischemic changes noted.) Management Discussion w/another healthcare provider: Hospitalist (Spoke with Dr. Salmeron. Admit to PCU) Treatment and Re-Evaluation :: Nursing staff was unable to place Larkin, coud? Larkin. He has a traumatic injuryof blood from the meatus. Bladder scan revealed 200 cc. If patient is unable to urinate will need to consult urology. Critical Care Time Critical Care Time: Yes Critical care time (excluding procedures): 30-74 minutes (31), 75-104 minutes (History, physical, documentation, review of prior records, independent or potation laboratory results, initiation of therapy), Discussing w/Patient &/or Family/Clerk [employer] Service, Discussing w/Consultants and Arranging Admission or Transfer Discharge Plan Dx/Rx/DC Orders Clinical Impression: Acute renal failure due to rhabdomyolysis, Debility, Essential (primary) hypertension, Primary cardiomyopathy, Closed head injury, Laceration of nose, History of multiple strokes, Acidosis, lactic, High anion gap, Sinus tachycardiaseen on teletypesetter monitor Disposition Disposition: Acute Care Hospital [facility] What to do if you have Problems For any increased pain, shortness of breath, bleeding, nausea or vomiting, chestpain, or any unexpected problems, contact your Primary Care Provider. Call [facility] ([phone]) or report to the closest Emergency Room. Call 911 if necessary. 10/17/242015 <Electronically signed by Gamal Irwin MD> Cosigner Signature (if applicable): CC: Dr. Tracie Abreu MD ~ Signed [facility] Work Phone: [phone] Discharge summary [facility] Medical Records Department [address] [place] [address] Emergency Department Summary 10/17/24 MR#: [id number] Acct: [id number] Name: GUSTAVO PATTON Rep #:[id number] : 1950 73 From: Gamal Irwin MD PCP: Dr. Tracie Abreu MD Status:REG ER Location: ED HPI History of Present Illness Chief Complaint: Fall Detail of Chief Complaint: Patient last seen well 3 days ago. Family called paramedics because he was Informant: patient and EMS Onset/Context/Timing Onset: - (Last seen well 3 days ago) Context: - (Unknown. Patient does not know when he fell) Timing: - (Unable to get up off the floor.) Quality: Patient has no complaints Location: Found on bedroom floor. Incontinent of urine and stool Current Severity: Patient denies any symptoms Maximum Severity: Patient denies any symptoms Worsened by: Nothing per patient Relieved by: Not applicable Associated Symptoms Associated Symptoms: Unable to get up and when asked why he had no response. Narrative Narrative: Patient is a active 73-year-old per EMS. He is awake but not alert. He is oriented. He cannot explain why or how he fell. He does know the date, where he is at and his name. He denies headache. Denies double vision blurred vision loss of vision. He denies ringing in his ears decreased hearing. He was unaware that he has a swollen nose with a laceration. He denies dental pain. He denies inability to open or close his mouth. He denies neck pain. He denies chest pain. No shortness of breath. He denies abdominal pain, he denies nausea or vomiting. He denies dysuria, frequency, urgency or hematuria. He denies numbness or tingling in his arms or legs. He had a prior stroke which affected his right side. Did speak with EMS. Patient needed full assistance to get onto the cot. He wasnot able to get up even with minimal assistance. He told them he been on the ground for an hour. His findings are not consistent with him being on the ground for an hour. Squad also inform me that his pulse ox was 75%. They were not certain this is accurate since he had cold hands. The ABG that was obtainedon room air. Suspect was due to cold extremities. Recent Illness/Hospitalization: No [facility] Medical History Dysphagia Primary cardiomyopathy Essential (primary) hypertension Diastolic heart failure Facial droop History of developmental delay History of DVT (deep vein thrombosis) Remote history of stroke DM II (diabetes mellitus, type II), controlled Dysarthria Stroke/cerebrovascular accident Home Medications ?Medication ?Instructions ?Recorded ?Last Taken ?Type multivitamin 1 cap PO DAILY supplement 11/24/22 History atorvastatin 40 mg tablet 40 mg PO QHS #30 tabs Unknown Rx lisinopril 2.5 mg tablet 2.5 mg PO DAILY #30 tabs Unknown Rx metoprolol succinate 25 mg 25 mg PO DAILY #30 tabs Unknown Rx tablet,extended release 24 hr loratadine 10 mg tablet (Allergy 10 mg PO DAILY Unknown History Relief (loratadine)) sennosides 8.6 mg tablet (Senna 8.6 mg PO QHS 01/20/23 Unknown History Lax) metformin 500 mg tablet 500 mg PO DAILY 05/23/23 Unk nown History pantoprazole 20 mg tablet,delayed 20 mg PO DAILY 05/22 Unknown History release apixaban 5 mg tablet (Eliquis) 5 mg PO BID 11/09/23 Un known History aspirin 81 mg chewable tablet 81 mg PO QDAY 11/09/23 U nknown History carbidopa 25 mg-levodopa 100 mg 1 tab PO TID 11/09/23 Unknown History tablet ipratropium bromide 21 mcg (0.03 2 spray intranasal TI D PRN nasal 11/09/23 Unknown History %) nasal spray congestion Allergy/AdvReac Type Severity Reaction Status Date / Time No Known Allergies Allergy Verified 10/17/24 18:07 Family History Father Diabetes Social History household members: none housing: apartment number of children: 0 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 pets and animals: No Smoking Status: Never smoker alcohol intake: never substance use type: does not use ROS ROS ED Constitutional Constitutional ED: Denies chills, fever(s), subjective or sweats Eyes Eyes: Denies blurry vision or change in vision ENT ENT ED: Denies ear pain, rhinorrhea or sore throat Cardiovascular Cardiovascular: Denies chest pain or palpitations Respiratory/Chest Respiratory/Chest: Denies cough, dyspnea or dyspnea on exertion Gastrointestinal Gastrointestinal: Denies abdominal pain, diarrhea, nausea or vomiting Genitourinary Genitourinary ED: Denies dysuria or urinary frequency Musculoskeletal Musculoskeletal: Denies arthralgias or myalgias Integumentary Denies rash Neurologic Neurologic: Reports weakness; Denies headache(s) or paresthesias Endocrine Endocrinology: Denies cold intolerance or heat intolerance Hematologic/Lymphatic Hematologic/Lymphatic: Reports easy bruising Allergic/Immunologic Allergic/Immunologic ED: Denies mouth swelling or tongue swelling EXAM Physical Exam Const Vital Signs: 10/17/24 18:07 10/17/24 18:11 10/17/24 18:41 Temperature 99.7 F H 99.7 F H Temperature Source Oral Oral Pulse Rate 130 H 132 H Respiratory Rate 24 H 24 H Respiratory Effort Normal Non-Labored Blood Pressure 127/71 H 127/71 H Blood Pressure Mean 89 89 Pulse Ox 94 97 Oxygen Delivery Method Room Air Room Air 10/17/24 19:04 10/17/24 19:11 10/17/24 20:00 Temperature 99.7 F H 99.6 F H Temperature Source Oral Oral Pulse Rate 122 H 123 H 126 H Respiratory Rate 24 H 23 H 29 H Respiratory Effort Blood Pressure 104/76 104/76 111/54 L Blood Pressure Mean 85 85 73 Pulse Ox 93 93 94 Oxygen Delivery Method Room Air Room Air Room Air Positive well nourished, well developed and unkempt General Appearance ED: unkempt and well developed; Negative for cyanotic, diaphoretic or pallor HEENT Reports dry mucous membranes HEENT Narrative: Patient has bruising and laceration to the face. Ears normal. No hemotympanum. He has some blood inhis nares. There is no septal deviation hematoma. Posterior pharynx without erythema or exudate. Mouth ED: Yes dry mucous membranes Mouth: dry mucous membranes Eyes PERRL and EOMs intact bilaterally Eyes Narrative: There is no nystagmus. General Eye ED: Negative for pale conjunctiva or scleral icterus Neck no lymphadenopathy, supple and no JVD Chest Wall inspection of chest normal and palpation of chest normal Resp normal respiratory effort and clear to auscultation bilaterally Cardio regular rhythm, S1 normal heart sound, S2 normal heart sound and no murmurs Rate: tachycardic GI normal to inspection, nondistended, normoactive bowel sounds, non-tender, non- distended and no masses; Negative for hepatosplenomegaly Narrative: Testes tender bilaterally. No scrotal swelling. Back/Spine no CVA tenderness Extremity Negative for normal to inspection Extremity Narrative: Patient has mottling of his distal upper and lower extremities. His hands and feet are cold to touch. Capillary refill in his hands and feet are delayed. General Extremety ED: Yes edema General Extremity: edema Neuro oriented x3 and CN's II-XII intact bilaterally Sensorium / Orientation: Negative for alert Motor Exam: strength 5/5 throughout Psych Appearance: unkempt Skin No no wounds General Skin Exam: Negative for elasticity normal, jaundice or pallor Sepsis Attestation Sepsis Alert: Yes Sepsis Attestation: Sepsis Ruled Out Date exam was performed: 10/17/24 Time exam was performed: 20:08 MDM MDM MDM Narrative Medical decision making narrative: Since patient has had head trauma on anticoagulant we will obtain CT of the headto rule out intracranial bleed i.e. epidural hematoma, subdural hematoma, traumatic subarachnoid hemorrhage or intraparenchymal contusion. Since he is alert oriented has a nonfocal neurologic exam no posterior midline pain and fullactive range of motion without pain imaging of the neck was not obtained. EKG was obtained to assess for dysrhythmia or changes that may suggest hyperkalemia. Will obtain competence of metabolic panel to assess renal function, CO2 anion gap electrolytes and specifically hyponatremia hyperkalemia. UA was ordered to assess for evidence of infection. CPK to rule out rhabdomyolysis. Clinically he is dehydrated. 1 L normal saline was ordered. Lab Data Attestation: I reviewed the patient's lab results. Lab results narrative: White count is elevated. There is slight shift. There is no bandemia. H&H andindices are normal. Comprehensive metabolic panel is remarked for elevated BUN and creatinine of 55 and 2.76. Estimated GFR is 24. BUN to creatinine ratio is20:1. Glucose is elevated 344. CO2 is normal but the anion gap is elevated. CPK is greater than 16,000. PT is slightly elevated which may be due to the fact thathe is on apixaban. Labs: Laboratory Results - last 24 hr 10/17/24 10/17/24 18:24 19:23 WBC 15.5 H RBC 4.48 L Hgb 13.7 Hct 41.0 MCV 91.5 MCH 30.6 MCHC 33.4 RDW Std Deviation 43.2 RDW Coeff of Sara 12.9 Plt Count 275 MPV 12.2 H Immature Gran % (Auto) 0.300 Neut % (Auto) 88.6 H Lymph % (Auto) 2.7 L Scurry % (Auto) 7.1 Eos % (Auto) 0.8 Baso % (Auto) 0.5 Absolute Neuts (auto) 13.7 H Absolute Lymphs (auto) 0.41 L Nucleated RBC % 0 PT 19.7 H INR 1.6 APTT 33.3 Sodium 138 Potassium 4.5 Chloride 98 Carbon Dioxide 21.0 Anion Gap 19 H BUN 55 H Creatinine 2.76 H Estim Creat Clear Calc 25.35 L Est GFR (MDRD) Non-Af 24 L BUN/Creatinine Ratio 20.1 H Glucose 344 H Lactic Acid 3.6 H* Calcium 9.5 Total Bilirubin 0.76 AST 392 H ALT 77 H Alkaline Phosphatase 104 Total Creatine Kinase 58825 H Total Protein 8.2 Albumin 4.0 Globulin 4.3 H Albumin/Globulin Ratio 0.9 POC Glucose 320 H ABG Data Attestation: I personally reviewed and interpreted this ABG as follows: Interpretation: ABG reveals alkalosis. pH 7.5, pCO2 26.1, pO2 71, O2 sat 96%, base excess -3, total CO2 21 and bicarb is slightly decreased at 20.2. This reveals an increased AA gradient and respiratory alkalosis. ABG results: ABG 10/17/24 18:27 Specimen Type ART Sample Site L Radial pH 7.50 H Bicarbonate Actual 20.2 L Total CO2 21 Base Excess -3 L O2 Saturation 96 O2 % 21.0 ABG pCO2 26.1 L ABG pO2 70 L Luis Miguel Test Positive O2 Delivery Device Room Air Vent Mode Not entered Radiography Chest X-Ray - ED: 1 View and Read by ED Physician (Single view chest x-ray reveals a left pleural effusion. There is no evidence of pneumothorax or obvious fractured ribs. Cardiac silhouette is unremarkable. Heart size is normal. Hilum is unremarkable.) Diagnostic Testing: Clinical Impression(s) from Imaging Studies Brain CT 10/17/24 18:06 IMPRESSION: No evidence of acute intracranial pathology. Advanced chronic small-vessel ischemic changes with multiple patchy areas of old infarct involving the bilateral cerebral hemispheres. Reading Location: [facility] Chest X-Ray 10/17/24 18:25 IMPRESSION: Small left pleural effusion, superimposed consolidation not excluded. Reading Location: [facility] CT of the head was reviewed. This reveals no evidence of intracranial bleed i.e. subdural hematoma,traumatic subarachnoid hemorrhage or contusion. There is evidence of multiple prior strokes. EKG Initial EKG: Attestation: I personally reviewed and interpreted this EKG as follows: Interpretation: Sinus Tachycardia (Rate is 130. Patient has incomplete right bundle branch block. Parables 142 ms. Cures duration 102 ms. QT duration Winston 12 ms. [place] is unremarkable. Patient has nonsevere changes which may represent many things. There is no obvious acute ischemic changes noted.) Management Discussion w/another healthcare provider: Hospitalist (Spoke with Dr. Salmeron. Admit to PCU) Treatment and Re-Evaluation :: Nursing staff was unable to place Larkin, coud? Larkin. He has a traumatic injuryof blood from the meatus. Bladder scan revealed 200 cc. If patient is unable to urinate will need to consult urology. Critical Care Time Critical Care Time: Yes Critical care time (excluding procedures): 30-74 minutes (31), 75-104 minutes (History, physical, documentation, review of prior records, independent or potation laboratory results, initiation of therapy), Discussing w/Patient &/or Family/Clerk Telegraph Service, Discussing w/Consultants and Arranging Admission or Transfer Discharge Plan Dx/Rx/DC Orders Clinical Impression: Acute renal failure due to rhabdomyolysis, Debility, Essential (primary) hypertension, Primary cardiomyopathy, Closed head injury, Laceration of nose, History of multiple strokes, Acidosis, lactic, High anion gap, Sinus tachycardiaseen on teletypesetter monitor Disposition Disposition: Acute Care Hospital [facility] What to do if you have Problems For any increased pain, shortness of breath, bleeding, nausea or vomiting, chestpain, or any unexpected problems, contact your Primary Care Provider. Call [facility] ([phone]) or report tothe closest Emergency Room. Call 911 if necessary. 10/17/242015 Cosigner Signature (if applicable): CC: Dr. Tracie Abreu MD ~ Signed [facility]09-11-2025 Radiology Diagnostic study note [facility] Imaging Services [address] [place] [address] Brain/Head without Contrast MR#: [id number] Acct: [id number] Name: GUSTAVO PATTON Rep #: [id number] : 1950 M 73 From: Jalil Bolton MD PCP: Dr. Tracie Abreu MD Status: PRE ER Study:Brain/Head without Contrast Date of Exa m: 10/17/24 Exam# [id number] Ordering Dr: Edilson Irwin MD PROCEDURE: CT BRAIN/HEAD WITHOUT CONTRAST 10/17/2024 REASON FOR EXAM: HEAD TRAUMA, TECHNIQUE: Procedure Code: CTBR Modality: CT Procedure: BRAIN/HEAD WITHOUT CONTRAST Coronal and Sagittal reconstruction series were provided. One or more dose reduction techniques were used (e.g., Automated exposure control, adjustment of the mA and/or kV according to patient size, use of iterative reconstruction technique. RADIATION DOSE SUMMARY: CTDlvol: 44.99 mGy DLP: 863.6 mGycm COMPARISON: CT head 01/05/2023. FINDINGS: No acute intracranial hemorrhage, extra-axial collection, mass effect or evidence of acute infarct. Moderate-advanced chronic small-vessel ischemic changes with multiple patchy areas of chronic encephalomalacia and gliosis from remote infarcts involving the left MCA vascular territory, and within the right parieto-occipital lobes. Mild generalized parenchymal volume loss. Intact skull base and calvarium. Clear paranasal sinuses and mastoid air cells. CT/Brain/Head without Contrast IMPRESSION: No evidence of acute intracranial pathology. Advanced chronic small-vessel ischemic changes with multiple patchy areas of old infarct involving the bilateral cerebral hemispheres. Reading Location: [facility] CC: Dr. Tracie Abreu MD; Dr. Gamal Irwin MD ~ System Controller: Signed [facility]09-11-2025 Radiology Diagnostic study note [facility] Imaging Services [address] [place], [place] [address] Chest 1 View (Portable) MR#: [id number] Acct: [id number] Name: GUSTAVO PATTON Rep #: [id number] : 1950 M 73 From: Dominguez Ibarra MD PCP: Dr. Tracie Abreu MD Status: PRE ER Study:Chest 1 View (Portable) Date of Exam: 10/17/24 Exam# [id number] Ordering Dr: Edilson Irwin MD PROCEDURE: CHEST 1 VIEW (PORTABLE) 10/17/2024 REASON FOR EXAM: ADVENTITIAL BREATH SOUNDS TECHNIQUE: Frontal view of the chest. COMPARISON: Chest x-ray 11/22/2022 FINDINGS: Hardware: None. Heart: The heart size is normal. Lungs: Small left pleural effusion, superimposed consolidation not excluded. Nodefinite pneumothorax Bones: The bones are unremarkable. RAD/Chest 1 View (Portable) IMPRESSION: Small left pleural effusion, superimposed consolidation not excluded. Reading Location: [facility] CC: Dr. Tracie Abreu MD; Dr. Gamal Irwin MD ~ System Controller: Signed [facility]09-11-2025 Discharge summary Author Gamal Irwin [facility] Note Date/Time October 17, 2024 8:16pm [facility] Medical Records Department [address] [place] [address] Emergency Department Summary 10/17/24 MR#: [id number] Acct: [id number] Name: GUSTAVO PATTON Rep #:[id number] : 1950 73 From: Gamal Irwin MD PCP: Dr. Tracie Abreu MD Status:REG ER Location: ED HPI History of Present Illness Chief Complaint: Fall Detail of Chief Complaint: Patient last seen well 3 days ago. Family called paramedics because he was Informant: patient and EMS Onset/Context/Timing Onset: - (Last seen well 3 days ago) Context: - (Unknown. Patient does not know when he fell) Timing: - (Unable to get up off the floor.) Quality: Patient has no complaints Location: Found on bedroom floor. Incontinent of urine and stool Current Severity: Patient denies any symptoms Maximum Severity: Patient denies any symptoms Worsened by: Nothing per patient Relieved by: Not applicable Associated Symptoms Associated Symptoms: Unable to get up and when asked why he had no response. Narrative Narrative: Patient is a active 73-year-old per EMS. He is awake but not alert. He is oriented. He cannot explain why or how he fell. He does know the date, where he is at and his name. He denies headache. Denies double vision blurred vision loss of vision. He denies ringing in his ears decreased hearing. He was unaware that he has a swollen nose with a laceration. He denies dental pain. He denies inability to open or close his mouth. He denies neck pain. He denies chest pain. No shortness of breath. He denies abdominal pain, he denies nausea or vomiting. He denies dysuria, frequency, urgency or hematuria. He denies numbness or tingling in his arms or legs. He had a prior stroke which affected his right side. Did speak with EMS. Patient needed full assistance to get onto the cot. He wasnot able to get up even with minimal assistance. He told them he been on the ground for an hour. His findings are not consistent with him being on the ground for an hour. Squad also inform me that his pulse ox was 75%. They were not certain this is accurate since he had cold hands. The ABG that was obtainedon room air. Suspect was due to cold extremities. Recent Illness/Hospitalization: No [facility] Medical History Dysphagia Primary cardiomyopathy Essential (primary) hypertension Diastolic heart failure Facial droop History of developmental delay History of DVT (deep vein thrombosis) Remote history of stroke DM II (diabetes mellitus, type II), controlled Dysarthria Stroke/cerebrovascular accident Home Medications ?Medication ?Instructions ?Recorded ?Last Taken ?Type multivitamin 1 cap PO DAILY supplement 11/24/22 History atorvastatin 40 mg tablet 40 mg PO QHS #30 tabs Unknown Rx lisinopril 2.5 mg tablet 2.5 mg PO DAILY #30 tabs Unknown Rx metoprolol succinate 25 mg 25 mg PO DAILY #30 tabs Unknown Rx tablet,extended release 24 hr loratadine 10 mg tablet (Allergy 10 mg PO DAILY Unknown History Relief (loratadine)) sennosides 8.6 mg tablet (Senna 8.6 mg PO QHS 01/20/23 Unknown History Lax) metformin 500 mg tablet 500 mg PO DAILY 05/23/23 Unk nown History pantoprazole 20 mg tablet,delayed 20 mg PO DAILY 05/22 Unknown History release apixaban 5 mg tablet (Eliquis) 5 mg PO BID 11/09/23 Un known History aspirin 81 mg chewable tablet 81 mg PO QDAY 11/09/23 U nknown History carbidopa 25 mg-levodopa 100 mg 1 tab PO TID 11/09/23 Unknown History tablet ipratropium bromide 21 mcg (0.03 2 spray intranasal TI D PRN nasal 11/09/23 Unknown History %) nasal spray congestion Allergy/AdvReac Type Severity Reaction Status Date / Time No Known Allergies Allergy Verified 10/17/24 18:07 Family History Father Diabetes Social History household members: none housing: apartment number of children: 0 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 pets and animals: No Smoking Status: Never smoker alcohol intake: never substance use type: does not use ROS ROS ED Constitutional Constitutional ED: Denies chills, fever(s), subjective or sweats Eyes Eyes: Denies blurry vision or change in vision ENT ENT ED: Denies ear pain, rhinorrhea or sore throat Cardiovascular Cardiovascular: Denies chest pain or palpitations Respiratory/Chest Respiratory/Chest: Denies cough, dyspnea or dyspnea on exertion Gastrointestinal Gastrointestinal: Denies abdominal pain, diarrhea, nausea or vomiting Genitourinary Genitourinary ED: Denies dysuria or urinary frequency Musculoskeletal Musculoskeletal: Denies arthralgias or myalgias Integumentary Denies rash Neurologic Neurologic: Reports weakness; Denies headache(s) or paresthesias Endocrine Endocrinology: Denies cold intolerance or heat intolerance Hematologic/Lymphatic Hematologic/Lymphatic: Reports easy bruising Allergic/Immunologic Allergic/Immunologic ED: Denies mouth swelling or tongue swelling EXAM Physical Exam Const Vital Signs: 10/17/24 18:07 10/17/24 18:11 10/17/24 18:41 Temperature 99.7 F H 99.7 F H Temperature Source Oral Oral Pulse Rate 130 H 132 H Respiratory Rate 24 H 24 H Respiratory Effort Normal Non-Labored Blood Pressure 127/71 H 127/71 H Blood Pressure Mean 89 89 Pulse Ox 94 97 Oxygen Delivery Method Room Air Room Air 10/17/24 19:04 10/17/24 19:11 10/17/24 20:00 Temperature 99.7 F H 99.6 F H Temperature Source Oral Oral Pulse Rate 122 H 123 H 126 H Respiratory Rate 24 H 23 H 29 H Respiratory Effort Blood Pressure 104/76 104/76 111/54 L Blood Pressure Mean 85 85 73 Pulse Ox 93 93 94 Oxygen Delivery Method Room Air Room Air Room Air Positive well nourished, well developed and unkempt General Appearance ED: unkempt and well developed; Negative for cyanotic, diaphoretic or pallor HEENT Reports dry mucous membranes HEENT Narrative: Patient has bruising and laceration to the face. Ears normal. No hemotympanum. He has some blood in his nares. There is no septal deviation hematoma. Posterior pharynx without erythema or exudate. Mouth ED: Yes dry mucous membranes Mouth: dry mucous membranes Eyes PERRL and EOMs intact bilaterally Eyes Narrative: There is no nystagmus. General Eye ED: Negative for pale conjunctiva or scleral icterus Neck no lymphadenopathy, supple and no JVD Chest Wall inspection of chest normal and palpation of chest normal Resp normal respiratory effort and clear to auscultation bilaterally Cardio regular rhythm, S1 normal heart sound, S2 normal heart sound and no murmurs Rate: tachycardic GI normal to inspection, nondistended, normoactive bowel sounds, non-tender, non-distended and no masses; Negative for hepatosplenomegaly Narrative: Testes tender bilaterally. No scrotal swelling. Back/Spine no CVA tenderness Extremity Negative for normal to inspection Extremity Narrative: Patient has mottling of his distal upper and lower extremities. His hands and feet are cold to touch. Capillary refill in his hands and feet are delayed. General Extremety ED: Yes edema General Extremity: edema Neuro oriented x3 and CN's II-XII intact bilaterally Sensorium / Orientation: Negative for alert Motor Exam: strength 5/5 throughout Psych Appearance: unkempt Skin No no wounds General Skin Exam: Negative for elasticity normal, jaundice or pallor Sepsis Attestation Sepsis Alert: Yes Sepsis Attestation: Sepsis Ruled Out Date exam was performed: 10/17/24 Time exam was performed: 20:08 MDM MDM MDM Narrative Medical decision making narrative: Since patient has had head trauma on anticoagulant we will obtain CT of the headto rule out intracranial bleed i.e. epidural hematoma, subdural hematoma, traumatic subarachnoid hemorrhage or intraparenchymal contusion. Since he is alert oriented has a nonfocal neurologic exam no posterior midline pain and fullactive range of motion without pain imaging of the neck was not obtained. EKG was obtained to assess for dysrhythmia or changes that may suggest hyperkalemia. Will obtain competence of metabolic panel to assess renal function, CO2 anion gap electrolytes and specifically hyponatremia hyperkalemia. UA was ordered to assess for evidence of infection. CPK to rule out rhabdomyolysis. Clinically he is dehydrated. 1 L normal saline was ordered. Lab Data Attestation: I reviewed the patient's lab results. Lab results narrative: White count is elevated. There is slight shift. There is no bandemia. H&H andindices are normal. Comprehensive metabolic panel is remarked for elevated BUN and creatinine of 55 and 2.76. Estimated GFR is 24. BUN to creatinine ratio is20:1. Glucose is elevated 344. CO2 is normal but the anion gap is elevated. CPK is greater than 16,000. PT is slightly elevated which may be due to the fact that he is on apixaban. Labs: Laboratory Results - last 24 hr 10/17/24 10/17/24 18:24 19:23 WBC 15.5 H RBC 4.48 L Hgb 13.7 Hct 41.0 MCV 91.5 MCH 30.6 MCHC 33.4 RDW Std Deviation 43.2 RDW Coeff of Sara 12.9 Plt Count 275 MPV 12.2 H Immature Gran % (Auto) 0.300 Neut % (Auto) 88.6 H Lymph % (Auto) 2.7 L Scurry % (Auto) 7.1 Eos % (Auto) 0.8 Baso % (Auto) 0.5 Absolute Neuts (auto) 13.7 H Absolute Lymphs (auto) 0.41 L Nucleated RBC % 0 PT 19.7 H INR 1.6 APTT 33.3 Sodium 138 Potassium 4.5 Chloride 98 Carbon Dioxide 21.0 Anion Gap 19 H BUN 55 H Creatinine 2.76 H Estim Creat Clear Calc 25.35 L Est GFR (MDRD) Non-Af 24 L BUN/Creatinine Ratio 20.1 H Glucose 344 H Lactic Acid 3.6 H* Calcium 9.5 Total Bilirubin 0.76 AST 392 H ALT 77 H Alkaline Phosphatase 104 Total Creatine Kinase 67216 H Total Protein 8.2 Albumin 4.0 Globulin 4.3 H Albumin/Globulin Ratio 0.9 POC Glucose 320 H ABG Data Attestation: I personally reviewed and interpreted this ABG as follows: Interpretation: ABG reveals alkalosis. pH 7.5, pCO2 26.1, pO2 71, O2 sat 96%, base excess -3, total CO2 21 and bicarb is slightly decreased at 20.2. This reveals an increased AA gradient and respiratory alkalosis. ABG results: ABG 10/17/24 18:27 Specimen Type ART Sample Site L Radial pH 7.50 H Bicarbonate Actual 20.2 L Total CO2 21 Base Excess -3 L O2 Saturation 96 O2 % 21.0 ABG pCO2 26.1 L ABG pO2 70 L Luis Miguel Test Positive O2 Delivery Device Room Air Vent Mode Not entered Radiography Chest X-Ray - ED: 1 View and Read by ED Physician (Single view chest x-ray reveals a left pleural effusion. There is no evidence of pneumothorax or obvious fractured ribs. Cardiac silhouette is unremarkable. Heart size is normal. Hilum is unremarkable.) Diagnostic Testing: Clinical Impression(s) from Imaging Studies Brain CT 10/17/24 18:06 IMPRESSION: No evidence of acute intracranial pathology. Advanced chronic small-vessel ischemic changes with multiple patchy areas of old infarct involving the bilateral cerebral hemispheres. Reading Location: [facility] Chest X-Ray 10/17/24 18:25 IMPRESSION: Small left pleural effusion, superimposed consolidation not excluded. [facility] of the head was reviewed. This reveals no evidence of intracranial bleed i.e. subdural hematoma, traumatic subarachnoid hemorrhage or contusion. There is evidence of multiple prior strokes. EKG Initial EKG: Attestation: I personally reviewed and interpreted this EKG as follows: Interpretation: Sinus Tachycardia (Rate is 130. Patient has incomplete right bundle branch block. Parables 142 ms. Cures duration 102 ms. QT duration Winston 12 ms. [place] is unremarkable. Patient has nonsevere changes which may represent many things. There is no obvious acute ischemic changes noted.) Management Discussion w/another healthcare provider: Hospitalist (Spoke with Dr. Salmeron. Admit to PCU) Treatment and Re-Evaluation :: Nursing staff was unable to place Larkin, coud? Larkin. He has a traumatic injuryof blood from the meatus. Bladder scan revealed 200 cc. If patient is unable to urinate will need to consult urology. Critical Care Time Critical Care Time: Yes Critical care time (excluding procedures): 30-74 minutes (31), 75-104 minutes (History, physical, documentation, review of prior records, independent or potation laboratory results, initiation of therapy), Discussing w/Patient &/or Family/Clerk Telegraph Service, Discussing w/Consultants and Arranging Admission or Transfer Discharge Plan Dx/Rx/DC Orders Clinical Impression: Acute renal failure due to rhabdomyolysis, Debility, Essential (primary) hypertension, Primary cardiomyopathy, Closed head injury, Laceration of nose, History of multiple strokes, Acidosis, lactic, High anion gap, Sinus tachycardiaseen on teletypesetter monitor Disposition Disposition: Acute Care Hospital [facility] What to do if you have Problems For any increased pain, shortness of breath, bleeding, nausea or vomiting, chestpain, or any unexpected problems, contact your Primary Care Provider. Call [facility] ([phone]) or report to the closest Emergency Room. Call 911 if necessary. 10/17/242015 <Electronically signed by Gamal Irwin MD> Cosigner Signature (if applicable): CC: Dr. Tracie Abreu MD ~ Signed [facility] Work Phone: 1(517) 277-350208-11-2025 NoteHNO ID: [id number] Author: MONA ROACH PT Service: ? Author Type: Physical Therapist Type: Progress Notes Filed: 09/16/2024 13:49 Note Text: Episode Visit Count: 2 Therapist That Will Accept/Oversee The Plan Of Care: Mona Roach Start of Care Date: 07/29/24 Onset [...] SLS to reflect decreased fall risk. Improved [place] in home exercise program including cardiovascular exercise. [...] : 1051 Session Stop Time : 1117 Mona Roach [facility]08-11-2025 History of Present illness Narrative* Mona Roach, PT - 09/16/2024 1:46 PM EDT Episode Visit Count: 2 Therapist That Will Accept/Oversee The Plan Of Care: Mona Roach Start of Care Date: 07/29/24 Onset [...] SLS to reflect decreased fall risk. Improved [place] in home exercise program including cardiovascular exercise. [...] Time (minutes): 26 Session Start Time : 105 Session Stop Time : 111 Mona Roach PT * Mona Roach PT - 09/16/2024 11:05 AM EDT Program_ID:[id number] Access Code: [email or web address] URL: [email or web address]/ Date: 09-16-2024 Prepared By: Mona Roach Program Notes Exercises - Sit to [...] sets - 10 [facility] NoteHNO ID: [id number] Author: EDITH HART, DO Service: ? Author Type: Physician Type: Progress Notes Filed: 08/06/2024 16:26 Note Text: Hematologic problem(s): 1) H/O RLE DVT. 2) IVC filter 2021. 3) Multiple strokes in differing vascular territories. 4) Elevated factor VIII:C; normal CRP. HPI: The patient is a 73-year-old male with a past medical history as outlined below. 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 He has underlying history of hypertension, diabetes mellitus, and diastolic heart failure. He was admitted to 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 He was diagnosed with left MCA infarct with petechial hemorrhage, transferred to [facility]. He also had left M1 occlusion. [...] to [facility] for poststroke inpatient rehabilitation therapies." IVC filter placed 04/20/2021. No procedure note indicating it was removed. 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 Left leg negative for acute DVT. Per Dr. Manley's most recent note, "Patient with recurrent strokes over the past couple [...] going to draw labs today but pt declined." Carotid arterial duplex ultrasound 04/2022 showed mild less than 50% stenosis of both the right and left extracranial internal carotid arteries. Patent and antegrade flow was observed in the vertebral arteries bilaterally. He was admitted again to [facility] 11/22/2022 for complaint of slurred speech and [...] on 11/24/2022. Most recent MRI brain from [facility] 11/22/2022 demonstrated acute infarct in the [...] since childhood. Lives in one-story house in [place]. Has steps to the basement. Has a friend close by who helps out. Not driving. Interim history: No complaints today. Neurologically stable. Has trip to [place] planned. No unusual bleeding or unexplained bruisin (more content not included)... [facility]07-01-[facility] History of Present illness Narrative* Edith Hart, - 08/06/2024 3:43 PM EDT Hematologic problem(s): 1) H/O RLE DVT. 2) IVC filter 2021. 3) Multiple strokes in differing vascular territories. 4) Elevated factor VIII:C; normal CRP. HPI: The patient is a 73-year-old male with a past medical history as outlined below. 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 He has underlying history of hypertension, diabetes mellitus, and diastolic heart failure. He was admitted to 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 He was diagnosed with left MCA infarct with petechial hemorrhage, transferred to [facility]. He also had left M1 occlusion. [...] to [facility] for poststroke inpatient rehabilitation therapies." IVC filter placed 04/20/2021. No procedure note indicating it was removed. 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 Left leg negative for acute DVT. Per Dr. Manley's most recent note, "Patient with recurrent strokes over the past couple [...] going to draw labs today but pt declined." Carotid arterial duplex ultrasound 04/2022 showed mild less than 50% stenosis of both the right and left extracranial internal carotid arteries. Patent and antegrade flow was observed in the vertebralarteries bilaterally. He was admitted again to [facility] 11/22/2022 for complaint of slurred speech and [...] on 11/24/2022. Most recent MRI brain from [facility] 11/22/2022 demonstrated acute infarct in the [...] since childhood. Lives in one-story house in [place]. Has steps to the basement. Has a [...] (HCC) Shortness of breath Stroke (cerebrum) (HCC) PAST SURGICAL HISTORY Procedure Laterality Date IVC [...] 1 tablet by mouth once daily. Ipratropium Gladbrook (ATROVENT) 21 mcg (0.03 %) nasal spray Use 1 [place] in the nose three times a day [...] temperature 36.4 C (97.6 F), temperature source Temporal,weight 83 kg (183 lb), SpO2 96%. Well-appearing [...] No jaundice or rash. No petechiae. NEUROLOGIC: gas regulator repairer helper II-XII are grossly intact. ASSESSMENT/PLAN: (I63.9) Recurrent [...] which included preparing to see the patient, [id number] patient care, completing clinical documentation, obtaining and/or reviewing separately obtained history, performing a medically appropriate examination, counseling and educating the pat ient/family/caregiver, ordering medications, tests, or procedures, communicating with other HCPs (not separately reported), and communicating results to the patient/family/caregiver. Edith Hart DO documented in this encounterOhiohealth Grove City [facility]06-24-2025 NoteHNO ID: [id number] Author: MONA ROACH PT Service: ? Author Type: Physical Therapist Type: Progress Notes Filed: 07/30/2024 14:55 Note Text: Episode Visit Count: 1 Therapist That Will Accept/Oversee The Plan Of Care: Mona Roach Start of Care Date: 07/29/24 Onset [...] in SLS to reflect decreased fall risk. [place] in home exercise program including cardiovascular exercise. Patient Goals: Get stronger, walk better Time Frame for Goals and Treatment : 09/29/24 Planned Interventions, Frequency, and Duration: Current Frequency: 1x/week Duration: 8 weeks Total Number of Visits Planned: 8 Planned Treatment Interventions: Therapeutic exercise (66957), Neuromuscular re-education (22296), Manual therapy (83859), Therapeutic activities (97953), Self-halfway management (61090), Patient/Family/Caregiver Education, Body Mechanics Training PLAN FOR [...] Explanation, [employer]ed [employer] [place] (more content not included)...[facility] History of Present illness Narrative* Mona Roach, PT - 07/30/2024 2:51 PM EDT Episode Visit Count: 1 Therapist That Will Accept/Oversee The Plan Of Care: Mona Roach Start of Care Date: 07/29/24 Onset [...] standing, walking, heavy exertion, lifting, physical activities .The patient presents with impairments in ADL's, balance, [...] in SLS to reflect decreased fall risk. [place] in home exercise program including cardiovascular exercise. Patient Goals: Get stronger, walk better Time Frame for Goals and Treatment : 09/29/24 Planned Interventions, Frequency, and Duration: Current Frequency: 1x/week Duration: 8 weeks Total Number of Visits Planned: 8 Planned Treatment Interventions: Therapeutic exercise (85046), Neuromuscular re- education (90039), Manual therapy (04219), Therapeutic activities (39021), Self- halfway management (17799), Patient/Family/Caregiver Education, Body Mechanics Training PLAN FOR [...] : 1400 Session Stop Time : 1443 Mona Roach PT * Mona Roach PT - 07/29/2024 2:41 PM EDT Program_ID:[id number] Access Code: [email or web address] URL: [email or web address] Date: 07-29-2024 Prepared By: Mona Roach Program Notes Exercises - Sidelying Hip [...] sets - 10 reps documented in this encounterOhiohealth Grove City Methodist Hospital06-06-2025 NoteHNO ID: [id number] Author: HALEY PRATT OCCA Service: ? Author Type: Furnace Process Plant Operator Type: Progress Notes Filed: 07/12/2024 14:31 Note Text: Office visit note from today's visit faxed to primary care, Dr. Fraser, as requested. [facility] History of Present illness Narrative* Haley Pratt OCCA - 07/12/2024 2:31 PM EDT Office visit note from today's visit faxed to primary care, Dr. Fraser, as requested. TIFFANY Noland * Layne Manley Jr., MD - 07/12/2024 11:10 AM EDT ESTABLISHED PATIENT VISIT CHIEF COMPLAINT: [...] like pt to follow up with his general manager oracle data cloud Dr. Dill to determine if further workupnecessary. [...] to suggest vascular cause. D/w pt and resident caregiver dx of PD, physiology, testing, treatment and [...] concerns of parkinsonism. Patient presents with his entertainment & media correspondent for follow-up after starting this medication, notes [...] tablets 3 timesa day and patient and entertainment & media correspondent amenable, discussed increased risk of side effects with increasing t his medication and they agree and understand. Discussed importance of physical activity, discussed physical therapy and patient amenable to this. Would like to continue at [facility] as he is calledher in the past and will fax order for physical therapy over today. No falls since last appointment, discussed fall prevention with patient and entertainment & media correspondent. 2. Recurrent strokes (HCC) - ICD9: 434.91, [...] in front of people - present for about5 months - near daily. Non productive cough. Also asking about chronic rhinitis and sinus discharge(not bleeding and no discoloration). Finally asks about having his ears cleaned out today. Most of the above questions I explained need to be addressed by PCP. Pain in hands resolved. No neck pain today. When discussing possible PD symptoms. States when stands up, legs feel weak. Feels like legs shaky.No tremors. No falls. No difficulties rising from [...] 1 tablet by mouth once daily. Ipratropium [place] (ATROVENT) 21 mcg (0.03 %) nasal spray Use 1 [place] in the nose three times a day [...] baseline; comprehension, naming, repetition intact. Short and intermodal customer service memory intact. Fund of knowledge grossly normal by MOCA. CN: PERRL, fundi with no evidence of papilledema, EOMI and without nystagmus, VFF to confrontation,facial sensation and strength are normal and symmetric, hearing is intact, palate and tongue movements are intact and symmetric. SCM and trapezius strength normal. Motor: Normal bulk and strength (5/5) bilaterally (throughout extremities x4). Tone increased in RUE - cogwheel nature. Coordination: FNF, HTS intact. ALEKSNADR possibly slower in R hand. No tremors. Sensation: Light touch, vibration, temperature intact throughout. No evidence of neglect. Gait: Unable to rise from chair with arms crossed over chest. Shuffling gait. Mild stooped posture.Takes about 5 steps to turn 180 degrees. [...] assigned to take the medication. Explained the impo rtance of taking Sinemet when Rx'd to do so and reviewed Rx. Will try to increase Sinemet 25/100mg to 2 tabs TID at 8AM, Noon and 5PM to see if any further improvement. Will also refer for physical therapy. Encouraged exrcise. Note no hydrocephalus on prior head imaging, and not endorsing NPH triad- in addition gait is not magnetic. 3. Recurrent strokes (HCC) - ICD9: 434.91, ICD10: I63.9 4. 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 Now following with Heme. On both Eliquis and ASA. PCP following lipidsand pt on Lipitor 40mg daily. BP goal [...] next week but cannot find this in [employer]. 6. 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 Needs responsibilities or activities duringthe day to avoid sleeping "whenever". Explained need to not nap during the day. Encouraged daylightexposure from 7AM to 7PM, and a dark quiet environment from 7PM to 7AM. Avoid electronics at night.Reviewed means of improving sleep hygiene. Layne Manley MD I spent a total of 40+ minutes on the date of the service which included preparing to see the patient, [id number] patient care, completing clinical documentation, obtaining and/or reviewing separately obtained history, performing a medically appropriate examination, counseling and educating the pa tient/family/caregiver, ordering medications, tests, or procedures, independently interpreting results (not separately reported), and communicating results to the patient/family/caregiver. documented in this encounterOhiohealth Grove City [facility] Hospital06-06-2025 NoteHNO ID: [id number] Author: LAYNE MANLEY JR, MD Service: ? Author Type: [...] like pt to follow up with his general manager oracle data cloud Dr. Dill to determine if further workup [...] to suggest vascular cause. D/w pt and resident caregiver dx of PD, physiology, testing, treatment and [...] concerns of parkinsonism. Patient presents with his entertainment & media correspondent for follow-up after starting this medication, notes [...] 3 times a day and patient and entertainment & media correspondent amenable, discussed increased risk of side effects with increasing this medication and they agree and understand. Discussed importance of physical activity, discussed physical therapy and patient amenable to this. Would like to continue at [facility] as he is called her in the past and will fax order for physical therapy over today. No falls since last appointment, discussed fall prevention with patient and entertainment & media correspondent. 2. Recurrent strokes (HCC) - ICD9: 434.91, [...] wants to know i (more content not included)...[facility]04-08[facility] Miscellaneous Notes* Telephone Encounter - Celina Baldwin LPN - 05/14/2024 1:23 PM EDT TC to pt who confirms he is taking 1.5 tablets. Celina Baldwin LPN * Telephone Encounter - Celina Baldwin LPN - 05/13/2024 11:50 AM EDT Prescription Refill Information The patient has been [...] office visit with this provider/department: Yes 07/12/24 WN Requested Prescriptions Pending Prescriptions Disp Refills carbidopa-levodopa (SINEMET 25-100) 25-100 mg per tablet [Pharmacy Med Name: CARBIDOPA-LEVODOPA 25-100 TAB] 270 tablet 1 Sig: TAKE 1 TABLET BY MOUTH THREE TIMES DAILY (AT 9AM, 1PM AND 5PM) Celina Baldwin LPN May 13, 2024 11:50 AM documented in this encounterOhiohealth Grove City [facility] Hospital04-08-2025 Telephone encounter Note * Telephone Encounter - Celina Baldwin LPN - 05/14/2024 1:23 PM EDT TC to pt who confirms he is taking 1.5 tablets. Celina Baldwin LPN [facility]04-07-2025 Telephone encounter Note* Telephone Encounter - Celina Baldwin LPN - 05/13/2024 11:50 AM EDT Prescription Refill Information The patient has been [...] office visit with this provider/department: Yes 07/12/24 WN Requested Prescriptions Pending Prescriptions Disp Refills carbidopa-levodopa (SINEMET 25-100) 25-100 mg per tablet [Pharmacy Med Name: CARBIDOPA-LEVODOPA 25-100 TAB] 270 tablet 1 Sig: TAKE 1 TABLET BY MOUTH THREE TIMES DAILY (AT 9AM, 1PM AND 5PM) Celina Baldwin LPN May 13, 2024 11:50 AM [facility]01-23-2025 Evaluation note* Diagnosis Onset Date Resolution Status Admit Date Essential (primary) hypertension chronic February 28 10:23am Stroke/cerebrovascular accident chronic February 28 10:23am [facility] Work Phone: [phone] Telephone encounter Note* Telephone Encounter - Haley Pratt OCCA - 01/11/2024 3:45 PM EST TC to patient who verbalized understanding of medication sent to pharmacy. TIFFANY Noland [facility]12-05-2024 Miscellaneous Notes* Telephone Encounter - Haley Pratt OCCA - 01/11/2024 3:45 PM EST [...] 11, 2024 2:06 PM documented in this encounterOhiohealth Grove City [facility] Hospital12-05-2024 Telephone encounter Note * Telephone Encounter - [...] Cedillo LPN January 11, 2024 2:06 PM [facility]11-14-2024 Telephone encounter Note* Telephone Encounter - Erma Olsen RN - 12/21/2023 3:50 PM EST Patient's recent Neurology note (12/06/23) has been faxed to his PCP office at [phone], for their update and for continuation of care of patient. Erma Olsen RN [facility]11-14-2024 Miscellaneous Notes* Telephone Encounter - Erma Olsen RN - 12/21/2023 3:50 PM EST Patient's recent Neurology note (12/06/23) has been faxed to his PCP office at [phone], for their update and for continuation of care of patient. Erma Olsen RN documented in this encounterOhiohealth Grove City [facility] Hospital10-30-2024 Telephone encounter Note * Telephone Encounter - Liv Shaw LPN - 12/06/2023 2:09 PM EDT Orders and face sheet faxed. Liv Shaw LPN December 06, 2023 2:10 PM [facility]10-30-2024 Miscellaneous Notes* Telephone Encounter - Liv Shaw LPN - 12/06/2023 2:09 PM EDT Orders and face sheet faxed. Liv Shaw LPN December 06, 2023 2:10 PM * Telephone Encounter - Fallon Steiner PA-C - 12/06/2023 1:12 PM EDT Please fax PT order to [facility] in [place]. documented in this encounterOhiohealth Grove City [facility] Hospital10-30-2024 Telephone encounter Note * Telephone Encounter - Fallon Steiner PA-C - 12/06/2023 1:12 PM EDT Please fax PT order to [facility] in [place]. [facility]10-30-2024 Instructions* Patient Instructions* Fallon Steiner PA-C - 12/06/2023 12:53 PM EDT Physical therapy for your neck and parkinsons Increase sinemet to 1.5 tablets three times a day Increase water intake throughout the day Follow up in 3 months documented in this encounterOhiohealth Grove City [facility] Hospital10-30-2024 NoteHNO ID: [id number] Author: FALLON STEINER PA-C Service: ? Author Type: Physician Surgical Forceps Fabricator Type: Progress Notes Filed: 12/06/2023 13:13 Note [...] like pt to follow up with his general manager oracle data cloud Dr. Dill to determine if further workup [...] to suggest vascular cause. D/w pt and resident caregiver dx of PD, physiology, testing, treatment and [...] reevaluation in 8 weeks or sooner prn. Layne Manley MD CHIEF COMPLAINT: follow up HISTORY [...] gait, new, started sinemet. Patient presents with entertainment & media correspondent for follow-up appointment. At last appointment was started on Sinemet due to new shuffled gait. Patient states he has been responding well to the Sinemet. Labor Economics Professor states that he gets up very quickly [...] for prolonged bleeding, bru (more content not included)...[facility] History of Present illness Narrative* Fallon Steiner [...] like pt to follow up with his general manager oracle data cloud Dr. Dill to determine if further workupnecessary. [...] to suggest vascular cause. D/w pt and resident caregiver dx of PD, physiology, testing, treatment and [...] reevaluation in 8 weeks or sooner prn. Layne Manley MD CHIEF COMPLAINT: follow up HISTORY [...] gait, new, started sinemet. Patient presents with entertainment & media correspondent for follow-up appointment. At last appointment was started on Sinemet due to new shuffled gait. Patient states he has been responding well to the Sinemet. Labor Economics Professor states that he gets up very quickly [...] 1 tablet by mouth once daily. Ipratropium [place] (ATROVENT) 21 mcg (0.03 %) nasal spray Use 1 [place] in the nose three times a day [...] concerns of parkinsonism. Patient presents with his entertainment & media correspondent for follow-up after starting this medication, notes [...] tablets 3 timesa day and patient and entertainment & media correspondent amenable, discussed increased risk of side effects with increasing t his medication and they agree and understand. Discussed importance of physical activity, discussed physical therapy and patient amenable to this. Would like to continue at [facility] as he is calledher in the past and will fax order for physical therapy over today. No falls since last appointment, discussed fall prevention with patient and entertainment & media correspondent. 2. Recurrent strokes (HCC) - ICD9: 434.91, [...] which included preparing to see the patient, [id number] patient care, completing clinical documentation, obtaining and/or reviewing separately obtained history, performing a medically appropriate examination, counseling and educating the pat ient/family/caregiver, and ordering medications, tests, or procedures. This document has been created with the use of voice recognition technology. It may contain inaccuracies: (e.g. misspellings, inaccurate syntax or word sense) that have escaped review. documented in this encounterOhiohealth Grove City [facility] Hospital10-08-2024 Telephone encounter Note * Telephone Encounter - Celina Baldwin LPN - 11/14/2023 1:11 PM EDT Requesting 90 days. Celina Baldwin LPN [facility]10-08-2024 Miscellaneous Notes* Telephone Encounter - Celina Baldwin LPN - 11/14/2023 1:11 PM EDT Requesting 90 days. Celina Baldwin LPN documented in this encounterOhiohealth Grove City [facility] Hospital09-13-2024 Telephone encounter Note * Telephone Encounter - Liv Shaw LPN - 10/20/2023 1:14 PM EDT Called office notified fax will be coming for patient who needs appointment adriel, staff verified. Fax sent. Liv Shaw LPN October 20, 2023 1:15 PM [facility]09-13-2024 Miscellaneous Notes* Telephone Encounter - Liv Shaw LPN - 10/20/2023 1:14 PM EDT Called office notified fax will be coming for patient who needs appointment adriel, staff verified. Fax sent. Liv Shaw LPN October 20, 2023 1:15 PM * Telephone Encounter - Liv Shaw LPN - 10/20/2023 12:04 PM EDT Images from the original note were not included. Layne Manley Jr., MD P [facility] Neur Sindhu Nurse Please help pt schdule follow up with Dr. Aniyah MOREL. Please send copy of Zio monitor. documented in this encounterOhiohealth Grove City [facility] Hospital09-13-2024 Telephone encounter Note * Telephone Encounter - Liv Shaw LPN - 10/20/2023 12:04 PM EDT Images from the original note were not included. Layne Manley Jr., MD P [facility] Neur Sindhu Nurse Please help pt schdule follow up with Dr. Aniyah MOREL. Please send copy of Zio monitor. [facility]09-13-2024 NoteHNO ID: [id number] Author: LAYNE MANLEY JR, MD Service: ? Author Type: [...] rare (<1.0%). Isolated VEs were occasional (2.0%, 95527), VE Couplets were rare (<1.0%, 70), and no VE Triplets were present. Ventricular Bigeminy and Trigeminy were present. Pt has also seen Dr. Alfredo Hart of [facility] and I have discussed plan with [...] stopping Plavix. Plan: -I will contact his PORTFOLIO MGR that sees him through the community care network via [facility] to update her on medication recommendations (Dorinda White LPN [phone] -Rx apixaban 5 mg BID. -Stop Plavix. [...] working about 2-3 hours per day at [employer]. No family history neuro disorders. Pt denies falls. Handwriting getting smaller. REVIEW OF SYSTEMS GENERAL:No weight loss, malaise or fevers. HEENT:Negative for fr (more content not included)...[facility] 10-20-2023 History of Present illness Narrative* Layne Manley Jr., MD - 10/20/2023 10:36 AM [...] well as DVT, patient may benefit from [facility] evaluation for clotting disorder. Will place consult. [...] rare (<1.0%). Isolated VEs were occasional (2.0%, 25753), VE Coupl ets were rare (<1.0%, 70), and no VE Triplets were present. Ventricular Bigeminy and Trigeminy were present. Pt has also seen Dr. Alfredo Hart of [facility] and I have discussed plan with [...] stopping Plavix. Plan: -I will contact his PORTFOLIO MGR that sees him through the community care network via [facility] to update her on medication recommendations (Dorinda White, PORTFOLIO MGR [phone] -Rx apixaban 5 mg BID. -Stop Plavix. [...] working about 2-3 hours per day at [employer]. No family history neuro disorders. Pt denies [...] 1 tablet by mouth once daily. Ipratropium [place] (ATROVENT) 21 mcg (0.03 %) nasal spray Use 1 [place] in the nose three times a day [...] like pt to follow up with his general manager oracle data cloud Dr. Dill to determine if further workupnecessary. [...] to suggest vascular cause. D/w pt and resident caregiver dx of PD, physiology, testing, treatment and [...] reevaluation in 8 weeks or sooner prn. Layne Manley MD I spent a total of 48 minutes on the date of the service which included preparing to see the patient, [id number] patient care, completing clinical documentation, obtaining and/or reviewing separately obtained history, performing a medically appropriate examination, counseling and educating the pat ient/family/caregiver, ordering medications, tests, or procedures, and communicating results to thepatient/family/caregiver. documented in this encounterOhiohealth Grove City [facility] Hospital08-27-2024 Telephone encounter Note * Telephone Encounter - Celina Baldwin LPN - 10/03/2023 4:06 PM EDT Pt has upcoming appt with [facility] on 10-20-23 Celina Baldwin LPN [facility]08-27-2024 Miscellaneous Notes* Telephone Encounter - Celina Baldwin LPN - 10/03/2023 4:06 PM EDT Pt has upcoming appt with [facility] on 10-20-23 Ceilna Baldwin LPN * Telephone Encounter - Haley Pratt OCCA - 09/20/2023 8:57 AM EDT [...] call placed no answer, brief message left. [email or web address] 09/13/2023, message sent. Rand Johansen LPN * Telephone Encounter - Rand Johansen LPN - 09/14/2023 6:31 PM EDT ----- Message from Lyane Manley Jr., MD sent at 09/14/2023 4:26 PM EDT ----- Pt reportedly had Vtach on monitor - no afib - would like pt to see cardiology. If pt not actively following with cardiology we can make appt. Please confirm with pt. Layne Manley MD documented in this encounterOhiohealth Grove City [facility]08-27-2024 Telephone encounter Note * Telephone Encounter - Lia Mercedes LISW - 10/03/2023 1:38 PM EDT Unfortunately since pt filled the script he is ineligible for the co-pay card. However, he could likely qualify for the patient assistance program through [employer]. I'll prepare the application and contact Dorinda and patient to discuss. GLENN Adkins [facility]08-27-2024 Miscellaneous Notes* Telephone Encounter - Lia Mercedes LISW - 10/03/2023 1:38 PM EDT Unfortunately since pt filled the script he is ineligible for the co-pay card. However, he could likely qualify for the patient assistance program through [employer]. I'll prepare the application and contact Dorinda [...] that to Dorinda. However pt went to [facility], was $500, he did pick it up and pay for it but will not be able to do that every month. Will ask our social work coordinator first if there is a Copay card he can utilize. Dr Hart, is pt to follow up here or resume f/u with your recommendation to PCP. Haydee Kelley LPN * Telephone Encounter - Masha Pichardo - 10/03/2023 11:45 AM EDT Please call Dorinda [phone]. She has questions regarding plavix and eliquis. documented in this encounterOhiohealth Grove City [facility] Hospital08-27-2024 Telephone encounter Note * Telephone Encounter - Haydee Kelley LPN - 10/03/2023 12:55 PM EDT Dorinda from [facility] is calling. Asking if pt is to stop Plavix as pt was started on Eliquis. Per OV note -Rx apixaban 5 mg BID. -Stop Plavix. -Okay to resume ASA for history of PVD (suggested by SYLVIE 12/2021). Relayed that to Dorinda. However pt went to [facility], was $500, he did pick it up and pay for it but will not be able to do that every month. Will ask our social work coordinator first if there is a Copay card he can utilize. Dr Hart, is pt to follow up here or resume f/u with your recommendation to PCP. Haydee Kelley LPN [facility]08-27-2024 Telephone encounter Note* Telephone Encounter - Masha Pichardo - 10/03/2023 11:45 AM EDT Please call Dorinda [phone]. She has questions regarding plavix and eliquis. [facility] Work Phone: 1(285) 694-568208-19-2024 NoteHNO ID: [id number] Author: EDITH HART, DO Service: ? Author Type: Physician Type: Progress Notes Filed: 10/01/2023 16:42 Note Text: Hematologic problem(s): 1) H/O RLE DVT. 2) IVC filter 2021. 3) Multiple strokes in differing vascular territories. 4) Elevated factor VIII:C; normal CRP. HPI: The patient is a 72-year-old male with a past medical history as outlined below. 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 He has underlying history of hypertension, diabetes mellitus, and diastolic heart failure. He was admitted to 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 He was diagnosed with left MCA infarct with petechial hemorrhage, transferred to [facility]. He also had left M1 occlusion. [...] to [facility] for poststroke inpatient rehabilitation therapies." IVC filter placed 04/20/2021. No procedure note indicating it was removed. 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 Left leg negative for acute DVT. Per Dr. Manley's most recent note, "Patient with recurrent strokes over the past couple [...] going to draw labs today but pt declined." Carotid arterial duplex ultrasound 04/2022 showed mild less than 50% stenosis of both the right and left extracranial internal carotid arteries. Patent and antegrade flow was observed in the vertebral arteries bilaterally. He was admitted again to [facility] 11/22/2022 for complaint of slurred speech and [...] on 11/24/2022. Most recent MRI brain from [facility] 11/22/2022 demonstrated acute infarct in the [...] since childhood. Lives in one-story house in [place]. Has steps to the basement. Has a friend close by who helps out. Not driving. Hematologic problem(s): Interim history: No complaints today. No neurologic change. PAST MEDICAL HISTORY No date: Diabetes mellit (more content not included)...[facility]08-19-2024 History of Present illness Narrative* Edith Hart, - 09/25/2023 3:41 PM EDT Hematologic problem(s): 1) H/O RLE DVT. 2) IVC filter 2021. 3) Multiple strokes in differing vascular territories. 4) Elevated factor VIII:C; normal CRP. HPI: The patient is a 72-year-old male with a past medical history as outlined below. 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 He has underlying history of hypertension, diabetes mellitus, and diastolic heart failure. He was admitted to 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 He was diagnosed with left MCA infarct with petechial hemorrhage, transferred to [facility]. He also had left M1 occlusion. [...] to [facility] for poststroke inpatient rehabilitation therapies." IVC filter placed 04/20/2021. No procedure note indicating it was removed. 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 Left leg negative for acute DVT. Per Dr. Manley's most recent note, "Patient with recurrent strokes over the past couple [...] going to draw labs today but pt declined." Carotid arterial duplex ultrasound 04/2022 showed mild less than 50% stenosis of both the right and left extracranial internal carotid arteries. Patent and antegrade flow was observed in the vertebralarteries bilaterally. He was admitted again to [facility] 11/22/2022 for complaint of slurred speech and [...] on 11/24/2022. Most recent MRI brain from [facility] 11/22/2022 demonstrated acute infarct in the [...] since childhood. Lives in one-story house in [place]. Has steps to the basement. Has a [...] Shortness of breath No date: Stroke (cerebrum) ([facility] PAST SURGICAL HISTORY 03/2021: IVC FILTER PLACEMENT 03/2021: PAST SURGICAL HISTORY OF Comment: Cerebral angiography and left MCA thrombectomy ALLERGIES No Known Allergies Current Outpatient Medications Medication Sig multivitamin tablet Take 1 tablet by mouth once daily. Ipratropium [place] (ATROVENT) 21 mcg (0.03 %) nasal spray Use 1 [place] in the nose three times a day [...] No jaundice or rash. No petechiae. NEUROLOGIC: gas regulator repairer helper II-XII are grossly intact. ASSESSMENT/PLAN: (I63.9) Recurrent [...] stopping Plavix. Plan: -I will contact his PORTFOLIO MGR that sees him through the community care network via [facility] to update her on medication recommendations (Dorinda WhiteAGATA [phone] -Rx apixaban 5 mg BID. -Stop Plavix. [...] which included preparing to see the patient, [id number] patient care, completing clinical documentation, obtaining and/or reviewing separately obtained history, performing a medically appropriate examination, counseling and educating the pat ient/family/caregiver, ordering medications, tests, or procedures, and communicating results to thepatient/family/caregiver. Edith Hart DO documented in this encounterOhiohealth Grove City [facility] Hospital08-14-2024 Telephone encounter Note * Telephone Encounter - Haley Pratt OCCA - 09/20/2023 8:57 AM EDT Multiple attempts to reach patient by phone and MC message with no success. Sent letter to patientshome address to call office for below results and recommendations. TIFFANY Noland [facility]08-13-2024 Telephone encounter Note* Telephone Encounter - Celina Baldwin LPN - 09/19/2023 1:38 PM EDT TC to pt with no answer. Left VM to return call. Celina Baldwin LPN [facility]08-08-2024 Telephone encounter Note* Telephone Encounter - Rand Johansen LPN - 09/14/2023 6:32 PM EDT Phone call placed no answer, brief message left. [employer] 09/13/2023, message sent. Rand Johansen LPN [facility]08-08-2024 Telephone encounter Note* Telephone Encounter - Rand Johansen LPN - 09/14/2023 6:31 PM EDT ----- Message from Layne Manley Jr., MD sent at 09/14/2023 4:26 PM EDT ----- Pt reportedly had Vtach on monitor - no afib - would like pt to see cardiology. If pt not actively following with cardiology we can make appt. Please confirm with pt. Layne Manley MD [facility]08-07-2024 Telephone encounter Note* Telephone Encounter - Masha Pichardo - 09/13/2023 8:30 AM EDT Scheduled with patient [facility] Work Phone: [phone] 108-582408-07-2024 Miscellaneous Notes* Telephone Encounter - Masha Pichardo - 09/13/2023 8:30 AM EDT Scheduled with patient * Telephone Encounter - Edith Hart DO - 09/12/2023 5:26 PM EDT I would like him to have repeat lab work filed under this encounter then office visit with me sometime in the next couple weeks. Edith Hart DO documented in this encounterOhiohealth [facility] City [facility]08-06-2024 Telephone encounter Note * Telephone Encounter - Edith Hart DO - 09/12/2023 5:26 PM EDT I would like him to have repeat lab work filed under this encounter then office visit with me sometime in the next couple weeks. Edith Hart DO [facility]08-05-2024 Telephone encounter Note* Telephone Encounter - Haley Pratt OCCA - 09/11/2023 1:18 PM EDT Images from the original note were not included. Estefani Dill APRN.COMMERCIAL UNDERWRITER You6 days ago Do not see any information in notes regarding driving. Do see that Dr. Manley mentioned "-Patient needs family or others who know med history to attend visits with patient to help with history" and atthis time would recommend waiting until [...] possible to assist with hx. TIFFANY Noland [facility]08-05-2024 Miscellaneous Notes* Telephone Encounter - Haley Pratt OCCA - 09/11/2023 1:18 PM EDT Images from the original note were not included. Estefani Dill, ROULA.COMMERCIAL UNDERWRITER You6 days ago Do not see any information in notes regarding driving. Do see that Dr. Manley mentioned "-Patient needs family or others who know med history to attend visits with patient to help with history" and atthis time would recommend waiting until [...] hx. TIFFANY Noland * Telephone Encounter - Haley Pratt OCCA - 09/05/2023 2:06 PM EDT Patient had MRA completed 08/20. Of note patient has follow up 10/19. TFIFANY Noland * Telephone Encounter - Armida mSith LPN - 09/05/2023 2:01 PM EDT Pt is calling to ask if he can ride his motorcycle again. Pt reports he had some testing done and it was supposed to show if he can ride his motorcycle again or not. Please review and advise. Armida Smith LPN documented in this encounterOhiohealth Grove City [facility] Hospital07-30-2024 Telephone encounter Note * Telephone Encounter - Haley Pratt OCCA - 09/05/2023 2:06 PM EDT Patient had MRA completed 08/20. Of note patient has follow up 10/19. TIFFANY Noland [facility]07-30-2024 Telephone encounter Note* Telephone Encounter - Armida Smith LPN - 09/05/2023 2:01 PM EDT Pt is calling to ask if he can ride his motorcycle again. Pt reports he had some testing done and it was supposed to show if he can ride his motorcycle again or not. Please review and advise. Armida Smith LPN [facility]07-15-2024 History of Present illness Narrative* Dania Koenig [...] PATIENT PRESENTS WITH AN IMPLANTABLE OR ATTACHED BANDAGE WINDING MACHINE OPERATOR: No RADIOLOGY DEPARTMENT: MR; Exam(s) Completed: Head: [place] MRA Neck: Carotids MRA, bilateral PERIPHERAL IV DATA: Not applicable SIGNED BY: RT Kymberly(R) August 21, 2023 2:29 PM documented in this encounterOhiohealth Grove City [facility] Hospital07-11-2024 Telephone encounter Note * Telephone Encounter - Rand Johansen LPN - 08/17/2023 10:26 AM EDT New Zio Rx ordered by Dr. Manley on 08/17/2023 at 9:00 AM, no further action. Rand Johansen LPN [facility]07-11-2024 Miscellaneous Notes* Telephone Encounter - Rand Johansen LPN - 08/17/2023 10:26 AM EDT New Zio Rx ordered by Dr. Manley on 08/17/2023 at 9:00 AM, no further action. Rand Johansen LPN * Telephone Encounter - Zhanna Wynne MA - 08/17/2023 8:23 AM EDT Received notification from [employer] (electrical systems designer for Zio device): We have found that [...] needs done once order is signed in [facility], it will automatically generate on the electrical systems designer end to send new device to patient.) Zhanna Wynne MA documented in this encounterOhiohealth Grove City [facility] Hospital07-11-2024 Telephone encounter Note * Telephone Encounter - Zhanna Wynne MA - 08/17/2023 8:23 AM EDT Received notification from [employer] (electrical systems designer for Zio device): We have found that [...] needs done once order is signed in [facility], it will automatically generate on the electrical systems designer end to send new device to patient.) Zhanna Wynne MA [facility]07-01-2024 Telephone encounter Note* Telephone Encounter - Nano Martines - 08/07/2023 2:50 PM EDT Spoke with patient and scheduled. Nano Martines [facility]07-01-2024 Miscellaneous Notes* Telephone Encounter - Nano Martines 08/07/2023 2:50 PM EDT Spoke with patient and scheduled. Nano Martines * Telephone Encounter - Fallon Amaya LPN - 08/07/2023 12:41 PM EDT PSS- This may have to be scheduled with lab and a chorus master in the morning. Please contact patient toschedule. Fallon Amaya LPN * Telephone Encounter - Edith Hart DO - 08/07/2023 12:30 PM EDT Please advise him to come back for lab work ordered under today's office visit whenever he has a chance. Edith Hart DO documented in this encounterOhiohealth [facility] City [facility]07-01-2024 Telephone encounter Note * Telephone Encounter - Fallon Amaya LPN - 08/07/2023 12:41 PM EDT PSS- This may have to be scheduled with lab and a chorus master in the morning. Please contact patient toschedule. Fallon Amaya LPN [facility]07-01-2024 Telephone encounter Note* Telephone Encounter - Edith Hart DO - 08/07/2023 12:30 PM EDT Please advise him to come back for lab work ordered under today's office visit whenever he has a chance. Edith Hart DO [facility] Work Phone: 1(507) 203-617807-01-2024 History of Present illness Narrative* Edith Hart DO - 08/07/2023 11:19 AM EDT Portions of this documentation were copied and pasted from previous office visit notes in order to provide a cohesive continuity of the history. The note has been reviewed and edited and updated as necessary. HPI: The patient is a 72-year-old male with a past medical history as outlined below. 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 He has underlying history of hypertension, diabetes mellitus, and diastolic heart failure. He was admitted to 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 He was diagnosed with left MCA infarct with petechial hemorrhage, transferred to [facility]. He also had left M1 occlusion. [...] to [facility] for poststroke inpatient rehabilitation therapies." IVC filter placed 04/20/2021. No procedure note indicating it was removed. 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 Left leg negative for acute DVT. Per Dr. Manley's most recent note, "Patient with recurrent strokes over the past couple [...] going to draw labs today but pt declined." Carotid arterial duplex ultrasound 04/2022 showed mild less than 50% stenosis of both the right and left extracranial internal carotid arteries. Patent and antegrade flow was observed in the vertebralarteries bilaterally. He was admitted again to [facility] 11/22/2022 for complaint of slurred speech and [...] on 11/24/2022. Most recent MRI brain from [facility] 11/22/2022 demonstrated acute infarct in the [...] since childhood. Lives in one-story house in [place]. Has steps to the basement. Has a friend close by who helps out. Not driving. PAST MEDICAL HISTORY Diagnosis Date Diabetes mellitus (HCC) Diastolic heart failure (HCC) DVT of lower extremity (deep venous thrombosis) (HCC) Dysphagia HTN (hypertension) Primary cardiomyopathy (HCC) Primary cardiomyopathy (HCC) Shortness of breath Stroke (cerebrum) (HCC) PAST SURGICAL HISTORY Procedure Laterality Date IVC FILTER PLACEMENT 03/2021 PAST SURGICAL HISTORY OF 03/2021 Cerebral angiography and left MCA thrombectomy ALLERGIES No Known Allergies Current Outpatient Medications Medication Sig multivitamin tablet Take 1 tablet by mouth once daily. Ipratropium [place] (ATROVENT) 21 mcg (0.03 %) nasal spray Use 1 [place] in the nose three times a day [...] temperature source Temporal, height 175.9 cm (5' 9.25"), weight 80.3 kg (177 lb), SpO2 98%. [...] No jaundice or rash. No petechiae. NEUROLOGIC: gas regulator repairer helper II-XII are grossly intact. ASSESSMENT/PLAN: (I63.9) Recurrent [...] which included preparing to see the patient, [id number] patient care, completing clinical documentation, obtaining and/or reviewing separately obtained history, performing a medically appropriate examination, counseling and educating the pat ient/family/caregiver, ordering medications, tests, or procedures, communicating with other HCPs (not separately reported), and communicating results to the patient/family/caregiver. Edith Hart DO documented in this encounterOhiohealth Grove City [facility] Hospital06-18-2024 Telephone encounter Note * Telephone Encounter - Magda Seymour RN - 07/25/2023 8:47 AM EDT Dorinda with [facility] calls to request a copy of OV note from 07/17/2023 to assist patient with education. Faxed to [phone] per request. Magda Seymour RN [facility]06-18-2024 Miscellaneous Notes* Telephone Encounter - Magda Seymour RN - 07/25/2023 8:47 AM EDT Dorinda with [facility] calls to request a copy of OV note from 07/17/2023 to assist patient with education. Faxed to [phone] per request. Magda Seymour RN documented in this encounterOhiohealth Grove City [facility] Hospital06-11-2024 Telephone encounter Note * Telephone Encounter - Teena Perez - 07/18/2023 2:37 PM EDT Called patient and scheduled first available. Teena Monsalve [facility]06-11-2024 Miscellaneous Notes* Telephone Encounter - Teena Perez - 07/18/2023 2:37 PM EDT Called patient and scheduled first available. Teena Monsalve * Telephone Encounter - Edith Hart DO - 07/18/2023 1:22 PM EDT I don't think Dr. Manley is aware that Dr. Ron is here. Next new patient appointment time with either me or Dr. Ron. Edith Hart DO * Telephone Encounter - Cheryle Bates - 07/18/2023 9:06 AM EDT Patient is being referred to Dr. Hart DX: keenan for possible hypercoag disorder Insurance: Medicare A and B/ [facility] AARP Supplement Referred by: Layne Manley Jr Please review and advise documented in this encounterOhiohealth Grove City [facility] Hospital06-11-2024 Telephone encounter Note * Telephone Encounter - Edith Hart DO - 07/18/2023 1:22 PM EDT I don't think Dr. Manley is aware that Dr. Ron is here. Next new patient appointment time with either me or Dr. Ron. Edith Hart DO [facility] Work Phone: 1(545) 739-782106-11-2024 Telephone encounter Note* Telephone Encounter - Cheryle Bates - 07/18/2023 9:06 AM EDT Patient is being referred to Dr. Hart DX: evriley for possible hypercoag disorder Insurance: Medicare A and B/ [facility] AARP Supplement Referred by: Layne Manley Jr Please review and advise [facility]06-10-2024 History of Present illness Narrative* Layne Manley Jr., MD - 07/17/2023 2:30 PM [...] OAC or sooner eval. Last saw Jackeline MCCLAIN on 04/18/23: 1. Cerebrovascular accident (CVA), unspecified [...] in November, did look at records at [facility] at that time. These records are limited, [...] Per record: On 11-22-2022, patient presented to [facility] emergency department with power of estate attorney for concerns of worsening weakness starting [...] visits with patient to help with history. Layne Manley MD I spent a total of 36 minutes on the date of the service which included preparing to see the patient, [id number]-[id number] patient care, completing clinical documentation, obtaining and/or reviewing separately obtained history, performing a medically appropriate examination, counseling and educating the pat ient/family/caregiver, ordering medications, tests, or procedures, and communicating results to thepatient/family/caregiver. * Rand Johansen LPN - 07/17/2023 1:57 PM EDT documented in this encounterOhiohealth Grove City Methodist Hospital04-12-2024 NoteHNO ID: [id number] Author: CATHLEEN GOEL OT/Marixa Service: ? Author Type: Occupational Therapist Type: [...] the drive started and ended. He drove [employer] for the assessment. Route was discussed prior to the drive and he indicated he would drive into [place] then onto the highway prior to going [...] behind the wheel assessment by this OT/L, TOBY, SHAI ASSESSMENT: Gustavo Patton tolerated today's treatment visit well. He demonstrated functional performance as this report indicates. 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 This therapist did call his sister, Renate, who is his DPOA after the session to share results with her. Billing: Total Treatment Time Minutes (timed/untimed) 60 Drivers Follow Up per 60 min (18270): 1:1 time 60 min Total time: 60 minutes Cathleen Goel, OT/L, S, LDI Certified Employee Placement Specialist [employer] Machine Operator Episode Visit Count: 2 Therapist That Will [...] Date: 05/04/23 to 05/19/2023 and treatment included: Employee Placement Specialist rehab evaluation. Goals for Episode of Care created on 05/04/23 through 06/04/23 1.Patient will complete clinical training and/or testing at [place] level in preparation for returning to driving. 2.Patient will complete functional mobility task with good safety awareness during behind the wheel assessment PROMIS Scales 05/04/2023 Higher is Better Phys Func - Score 76 (within normal limits) Phys Func - Percentile 100 Self-Eff Symptom - Score 27 (Very Low) Self-Eff Symptom - Percentile 1 T-scores: mean of gene (more content not included)...[facility] 05-19-2023 History of Present illness Narrative* Cathleen Goel, OT/L - 05/19/2023 3:32 PM EDT Episode Visit [...] the drive started and ended. He drove [employer] for the assessment. Route was discussed prior to thedrive and he indicated he would drive into [place] then onto the highway prior to going back to hishouse as these are roads he might travel [...] behind the wheel assessment by this OT/L, S, LDI ASSESSMENT: Gustavo Patton tolerated today's treatment visit well. He demonstrated functional performance as this report indicates. 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 This therapist did call his sister, Renate, who is his DPOA after the session to share results with her. Billing: Total Treatment Time Minutes (timed/untimed) 60 Drivers Follow Up per 60 min (55752): 1:1 time 60 min Total time: 60 minutes Cathleen Goel, OT/L, CDRS, LDI Certified Employee Placement Specialist Radius Corner Machine Operator Episode Visit Count: 2 Therapist That Will [...] Date: 05/04/23 to 05/19/2023 and treatment included: Employee Placement Specialist rehab evaluation. Goals for Episode of Care created on 05/04/23 through 06/04/23 1.Patient will complete clinical training and/or testing at [place] level in preparation for returning to driving. [...] BIBI Louis, CDRS, LDI documented in this encounterOhiohealth Grove City [facility] Hospital04-04-2024 Miscellaneous Notes* Telephone Encounter - Cathleen Goel OT/L - 05/11/2023 1:09 PM EDT This therapist indicated that she could contact his sister after the behind the wheel assessment toindicate recommendations. documented in this encounterOhiohealth Grove City [facility] Hospital03-28-2024 NoteHNO ID: [id number] Author: CATHLEEN GOEL OT/L Service: ? Author [...] he is still working 2-3 hours/day at [employer] which is just behind his apartment while [...] for some things while has PO and [employer] close by. Functional Limitations: nothing Prior Level of Function: Required assistance Home Environment Patient Lives With: Self/Alone Assistance Available: None Home Type: Apt/Condo Entry To Home: Stairs Number Of Stairs Into Home: 4 Laundry: in basement Transportation: [employer] (2023 [facility]) Patient Goals: to return to driving on public roads Intake Information: Prescription present Previous Treatment: Speech Therapy , Acute Hospital , Acute Rehab , SNF , Home Therapy , Employee Placement Specialist Assessment Falls Interview: No positive findings with falls interview Relevant History Past Relevant Medical Conditions: Cerebral Vascular Accident, Diabetes, Hypertension Highest Level of Education: High School Right or Left Handed: Right 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: See Comment Power Barker Operator Occupation: 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 Recreation / Current Exercise: some walking to [employer] and [employer] but otherwise no exercise Hobbies / Interests: watching TV, will look things up on his computer, used to be active in sports card collecting but not much now Home Environment Patient Lives With: Self/Alone Assistance Available: None Home Type: Apt/Condo Entry To Home: Stairs Number Of Stairs Into Home: 4 Laundry: in basement Transportation: [employer] (2023 [place] [employer]) Pain Level: 0 Post Treatment Pain Level: [...] to the stroke that occurred 11/28 State: [place] License/Permit #: [id number] Expires: 11/26/26 Restrictions: none 5 Yr. Violation [...] Driving: Right UE: Sufficient Left UE: Sufficient Children'S Institution Attendant: Sufficient Right LE: Sufficient Left LE: Sufficient Sitting Balance: Sufficient Head / Neck: Sufficient Ambulation: Sufficient Transfers: Sufficient Loading of Device: NA ASSESSMENT OF SENSORIMOTOR FUNCTION: Compatible with Driving VISION SCREENING: Vision Vision Deficits: Wears corrective lenses Corrective lenses: reading glasses on while he has last formal eye exam about 3 weeks ago Corrective Lenses: None (more content not included)...[facility]03-28-2024 History of Present illness Narrative* Cathleen Goel, OT/L - 05/04/2023 3:44 PM EDT Episode Visit [...] he is still working 2-3 hours/day at [employer] which is just behind his apartment while he walks over there daily. He also shared that he continues to have a nurse come to his house weekly to set up his medication and check on him. He also was able to communicate that his sister Georgina who brought him last time to this appointment following his first stroke, nolonger can drive due to vision problems so he had been helping her out with transportation assist prior to the most recent stroke occurring. He also said that he can and does walk for some things while has PO and [employer] close by. Functional Limitations: nothing Prior Level of Function: Required assistance Home Environment Patient Lives With: Self/Alone Assistance Available: None Home Type: Apt/Condo Entry To Home: Stairs Number Of Stairs Into Home: 4 Laundry: in basement Transportation: [employer] (2023 [employer]) Patient Goals: to return to driving on public roads Intake Information: Prescription present Previous Treatment: Speech Therapy , Acute Hospital , Acute Rehab , SNF , Home Therapy , Employee Placement Specialist Assessment Falls Interview: No positive findings with falls interview Relevant History Past Relevant Medical Conditions: Cerebral Vascular Accident, Diabetes, Hypertension Highest Level of Education: High School Right or Left Handed: Right 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: See Comment Power Barker Operator 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: 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 Recreation / Current Exercise: some walking to [employer] and [employer] but otherwise no exercise Hobbies / Interests: watching TV, will look things up on his computer, used to be active in sports card collecting but not much now Home Environment Patient Lives With: Self/Alone Assistance Available: None Home Type: Apt/Condo Entry To Home: Stairs Number Of Stairs Into Home: 4 Laundry: in basement Transportation: [employer] (2023 [employer]) Pain Level: 0 Post Treatment Pain Level: [...] to the stroke that occurred 11/28 State: [place] License/Permit #: [id number] Expires: 11/26/26 Restrictions: none 5 Yr. Violation [...] Driving: Right UE: Sufficient Left UE: Sufficient Children'S Institution Attendant: Sufficient Right LE: Sufficient Left LE: Sufficient [...] impairment 20-28; Severe impairment [email or web address] Visual Scanning/Attention: [place] Making Part B (sec): 318 sec (required [...] deficits which were also present last session [facility] Employee Placement Specialist Simulator: Simple Brake Reaction Time: Average Distance: 55.6 feet (Normal = 60 feet) R foot only pedal operation method Education: Education Learning Preferences: Demonstration, Explanation Barriers: Communication Deficit Learning/educational needs: Safety, Plan of Care Education Provided: Yes, see treatment interventions for education provided Education Provided To: Patient Education Mode/Type: Explanation/Discussion, Demonstration Response to Education/Teach Back: States/Identifies TREATMENT: Evaluation Self-[facility] Management: 1: refer to documentation in this [...] this report indicates the ability 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 2.Patient will complete functional mobility task with good safety awareness during behind the wheelassessment. Planned Interventions, Frequency, and Duration: Current Frequency: 1x/week Duration: 1 week Total Number of Visits Planned: 1 Patient to be see for Employee Placement Specialist rehab evaluation, Patient/Family/Caregiver Education PLAN FOR NEXT VISIT: completion of the behind the wheel session Patient demonstrates good understanding of plan of care and treatment. The above goals and plan of care were discussed and agreed upon by patient. Billing: Total Treatment Time Minutes (timed/untimed) 120 Evaluation - Moderate Complexity (35662) Self Care / Home Management (98946): 1:1 time: 30 minutes (2 units: 23-37 mins) Community /Work Re-integration (30335): 1:1 time: 30 minutes (2 units: 23-37 mins) Total time: 120 minutes BIBI Louis, CDRS, LDI Certified Employee Placement Specialist Radius Corner Machine Operator documented in this encounterOhiohealth Grove City [facility] Hospital03-25-2024 Miscellaneous Notes* Telephone Encounter - Renuka York [...] accordingly. Renuka York LPN documented in this encounterOhiohealth Grove City [facility] Hospital03-14-2024 Miscellaneous Notes* Addendum Note - Fallon Steiner PA-C - 04/20/2023 10:50 AM EDTAddended by: FALLON STEINER on: 04/20/2023 10:50 AM Modules accepted: Orders * Telephone Encounter - Fallon Steiner PA-C - 04/20/2023 10:50 AM EDT Will send in referral to OT for driving evaluation. * Telephone Encounter - Rand Johansen LPN - 04/20/2023 10:41 AM EDT Phone call placed to [facility] transportation to coordinate patients ride for scheduled OV 07/17/2023 spoke to sarah Lee os scheduled, no further action. Rand Johansen LPN * Telephone Encounter - Rand Johansen LPN - 04/20/2023 10:36 AM EDT Phone call placed to [facility], Dr. Dill spoke to Mary [...] PT order and just needs scheduled at [facility]. Please advise Dorinda at [phone] documented in this encounterOhiohealth Grove City [facility] Hospital03-12-2024 Instructions* Patient Instructions* Fallon Steiner PA-C - [...] months with Dr. Manley documented in this encounterOhiohealth Grove City [facility] Hospital03-12-2024 History of Present illness Narrative* aFllon Steiner PA-C - 04/18/2023 9:53 AM EDT ESTABLISHED PATIENT [...] up in 3 months or sooner prn. Layne Manley MD CHIEF COMPLAINT: follow up HISTORY OF PRESENT ILLNESS: Gustavo Patton is a 72 year old male, There were no vitals taken for this visit. with a PMH significant for stroke, cardiomyopathy, DM, DVT. Last saw Dr. Manley on 12/17/21 for CVA. " 04/03/21 and showed acute infarct secondary to [...] on 11/22/22. On 11-22-2022, patient presented to [facility] emergency department with power of estate attorney for concerns of worsening weakness starting [...] her. Does report he did see his general manager oracle data cloud in March and was able to pull up his appointments on his MyChart on his phone. However, states that all he said was to follow-up in a year and that he was fine. Denies any weakness, denies any falls. Notes he lives by himself in [place] but he has people visit him. Was [...] Motor: Normal tone, bulk. Slight decreased in tape deck installer strength on left hand, decreased finger abduction [...] in November, did look at records at [facility] at that time. These records are limited, [...] which included preparing to see the patient, [id number] patient care, completing clinical documentation, obtaining and/or reviewing separately obtained history, performing a medically appropriate examination, counseling and educating the pat ient/family/caregiver, and ordering medications, tests, or procedures. This document has been created with the use of voice recognition technology. It may contain inaccuracies: (e.g. misspellings, inaccurate syntax or word sense) that have escaped review. documented in this encounterOhiohealth Grove City [facility] Hospital10-19-2023 Discharge summary Author [facility] November 24, 2022 11:21am Note Date/Time November 23, 2022 1 0:33am [facility] Medical Records Department [address] [place] [address] Instructions for Home/Discharge Instructions 11/23/22 1032 MR#: [id number] Acct: [id number] Name: GUSTAVO PATTON Rep #:[id number] : [...] DO CC: Madhavi Chaudhry DO ~ Signed [facility] Work Phone: 1(379) 922-748710-18-2023 Progress note Author Jerod Cavazos [facility] November 23, 2022 3:00pm Note Date/Time November 23, 2022 2 :55pm [facility] Medical Records Department [address] [place] [address] Progress Note - Hospitalist 11/23/22 1442 MR#: [id number] Acct: [id number] Name: FARRUKHGUSTAVO ELIJAH Rep #:[id number] : 1950 71 From: Jerod askew DO PCP: Madhavi Chaudhry DO Status:ADM I NO Location: ICU CVICU20 02-06 Reason for Visit Reason for Visit: Diagnoses [...] Segovia MD at 19:00 EDT , ADDENDUM: 11/22/221955 IMPRESSION: Acute infarct in the right parietal lobe. Old left frontal temporal infarct N.B. : The above Results were Read Back by Roger Segovia MD to Irish Brantley RN, and understanding confirmed on 11/22/2022 19:49:42 (ET). Electronically Signed: Roger Segovia MD at 19:00 EDT Reading Location ID and State: [place] / [place] Tel [phone], Service support , ADDENDUM: 11/22/222125 IMPRESSION: Acute infarct in [...] Physician: Madhavi Chaudhry Performed By: Marlen Arthur, ARLETTE, RVT Physical Exam Const alert, no apparent [...] and mild developmental delay who presented to [facility] ED on 11/22/2022 with new onset weakness [...] finances, etc. Per neurology office note from [facility] from 12/2021, patient apparently hadno cognitive impairment [...] 35 minutes. Charges/Coding Visit Charges Inpatient E&M: 98767 Subs Hosp L2 11/23/22 1500 <Electronically signed by Jerod Cavazos DO> Cosigner Signature (if applicable): CC: ~ Signed [facility] Work Phone: 1(862) 967-810510-17-2023 Progress note Author Gordon Mccollum [facility] November 22, 2022 9:21pm Note Date/Time November 22, 2022 9 :21pm [facility] System Medical Records Department [address] [place] [address] Progress Note - Hospitalist 11/22/222116 MR#: [id number] Acct: [id number] Name: GUSTAVO PATTON Rep #:[id number] : [...] Cosigner Signature (if applicable): CC: ~ Signed [facility] Work Phone: 1(774) 150-582810-17-2023 History and physical note Author Jerod Cavazos [facility] November 22, 2022 6:59pm Note Date/Time November 22, 2022 1 2:21pm [facility] Medical Records Department [address] [place] [address] H&P Exam - Hospitalist 11/22/22 1221 MR#: [id number] Acct: [id number] Name: GUSTAVO PATTON Rep #:[id number] : 1950 71 From: Jerod askew DO PCP: Madhavi Chaudhry DO Status:ADM I NO Location: ICU CVICU20 1- HPI - General General Date of Admission: 11/22/22 Date of Service: 11/22/22 Chief Complaint: Weakness and slurred speech HPI Narrative GUSTAVO PATTON, is a 71 M with 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 States his daughter lives in [place] and he has friends that live in the area that can helphim with certain things as needed. States has been taking all home medications as prescribed recently. No other acute concerns currently. Patient notably had a prolonged hospitalization for a CVA back in March 2021. Obtained most of this history from his most recent [facility] (follows with [facility] neurology). Patient presented to [facility] in [place] in late March 2021 with right-sided weakness [...] DVT at that time. Was transferred to [facility] apparently for neurosurgical evaluation and IVC filter [...] no ST changes. Chest x-ray was unremarkable. [facility] Medical History Diabetes Stroke/cerebrovascular accident Home Medications [...] 70.3 H, Lymph % (Auto) 18.5 L, Scurry % (Auto) 9.3, Eos % (Auto) 1.1, [...] and mild developmental delay who presented to [facility] ED on 11/22/2022 with new onset weakness [...] finances, etc. Per neurology office note from [facility] from 12/2021, patient apparently hadno cognitive impairment [...] 55 minutes. Charges/Coding Visit Charges Inpatient E&M: 61696 Init Hosp L2 11/22/22 6617 <Electronically signed by Jerod Cavazos DO> Cosigner Signature (if applicable): CC: Dr. Jerod Cavazos DO; Madhavi Chaudhry DO~ Signed [facility] Work Phone: 1(158) 413-581610-17-2023 Discharge summary Author Cristhian Carlos [facility] November 22, 2022 3:27pm Note Date/Time November 22, 2022 1 0:40am [facility] System Medical Records Department [address] [place] [address] Emergency Department Summary 11/22/22 MR#: [id number] Acct: [id number] Name: GUSTAVO PATTON Rep #:[id number] : 1950 71 From: Cristhian Taylor PCP: Madhavi Chaudhry DO Status:ADM I NO Location: ICU CVICU20 1-1 HPI History of Present Illness Chief Complaint: Weakness Informant: patient and other (DPOA friend) Narrative Narrative: Presents here with his friend who is DPOA stating there is 2 other individuals that are power of estate attorney his daughter is in [place]. Concerns for increasing weakness started yesterday. States [...] was coming out of his right side. [facility] Medical History Diabetes Stroke/cerebrovascular accident Home [...] Social History Smoking Status: Never smoker ROS ROS ED Constitutional Constitutional ED: Denies chills, fever(s) [...] droop. 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 Sensorium [...] are able. EKG sinus rhythm. Discussed with hospitalistDr. Cavazos for admission to PCU. Re-evaluation: stable Disposition discussed with patient/family/significant other: Patient Case discussed with consulting clinician: Hospitalist This note was generated with [employer] dictation software. It may contain incorrectwords, spelling, [...] 70.3 H Lymph % (Auto) 18.5 L Scurry % (Auto) 9.3 Eos % (Auto) 1.1 [...] (cerebrovascular accident) Disposition Disposition: Acute Care Hospital [facility] Discharge Date/Time: 11/22/22 12:54 What to do if you have Problems For any increased pain, shortness of breath, bleeding, nausea or vomiting, chestpain, or any unexpected problems, contact your Primary Care Provider. Call [facility] ([phone]) or report to the closest Emergency Room. Call 911 if necessary. 11/22/22 1527 <Electronically signed by Cristhian Taylor> Cosigner Signature (if applicable): CC: Madhavi Chaudhry DO ~ Signed [facility] Work Phone: 1(402) 663-794508-03-2023 NoteHNO ID: [id number] Author: Cathleen Goel OT/L Service: ? Author [...] or scheduled additional follow-up appointments. Cathleen Goel, ADONIS/[facility]06-02-2023 Miscellaneous Notes* Telephone Encounter - Celina VelizAGATA jimenez - 07/08/2022 7:36 AM EDT Patient's request [...] accordingly. Celina Marshall LPN documented in this encounterOhiohealth Grove City [facility] Hospital04-21-2023 Miscellaneous Notes* Telephone Encounter - Celina Marshall [...] accordingly. Celina Marshall LPN documented in this encounterOhiohealth Grove City [facility] Hospital04-14-2023 Miscellaneous Notes* Telephone Encounter - Liliana Batista [...] appointment. Celina Marshall LPN documented in this [facility]04-14-2023 Miscellaneous Notes* Telephone Encounter - Celina Marshall [...] accordingly. Celina Marshall LPN documented in this encounterOhiohealth Grove City [facility] Hospital02-28-2023 Miscellaneous Notes* Telephone Encounter - Kely Johnson Pss - 04/05/2022 4:45 PM EST Never received the letter. * Telephone Encounter - Kely Johnson Pss - 03/31/2022 3:24 PM EST Dorinda from [facility] calling requesting the provider to review a letter. The letter isn't in the patient's chart. Requested the letter be faxed to the office. We haven't received the letter. Dorinda's phone# [phone] documented in this encounterOhiohealth Grove City [facility] Hospital02-09-2023 Discharge summary Author Stephani Vila [facility] June 09, 2022 2:40pm Note Date/Time March 17, 2022 1 0:30am [facility] Physical Therapy [facility] [address] [place] [address]. [address] [place] [address] / REHABILITATION SERVICES DISCHARGE SUMMARY MR#: [id number] Acct: [id number] Name: GUSTAVO PATTON Rep #: [id number] : 1950 71 From: Cert. SHIRLEY Durant, OCS Referring Dr.: Dr. Layne Manley MD Status: REG RCR Insurance: MEDICARE PART A B AARP It has been my pleasure to treat GUSTAVO PATTON referred by Dr. Layne Manley MD, with the diagnosis of CEREBRAL [...] please feel free to call me at [phone]. Thank you for the referral of thispatient. Sincerely, Stephani Vila PT, Cert MDT, OCS Balance/Gait/Functional tests - Balance/Special Test Scores Functional Gait Assessment Score: 30 % Disability: 0 CATSIB Score (Max score 120 seconds): 100 Lower Extremity Functional Score: 62 30 Second Chair Rise Test Seconds: 12 <Electronically signed by Stephani Vila PT, Cert. T, OCS> 06/09/22 1440 CC: Dr. Edith Fraser MD; Dr. Layne Manley MD ~ JLMonique Signed [facility] Work Phone: 1(326) 385-783901-11-2023 History of Present illness Narrative* Cathleen Goel, OT/L - 02/16/2022 3:42 PM EST Episode Visit Count: 2 Therapist That Will Accept/Oversee The Plan Of Care: Emery Goel Start of Care Date: 02/11/22 Onset Date: 04/01/21 (stroke occurred while 1 week in acute hospital followed by 2-3 weeks at [facility] the 2 weeks at senior care facility in [place] prior to returning home; [facility] [place]; now has nurse who comes weekly to [...] started and ended from. 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 ENVIRONMENT: Location: Residential, Urban, Rural, Parking Lot, [...] very familiar with the roadways driving into [place] where he does much of his errand [...] this report indicates the ability of the class b truck driver to operate a motor vehicle [...] (>3 HOURS) CURRENTLY UNLESS HAS OTHER LICENSED WOOD MILLER WITH HIM TO SHARE THE DRIVING; DO [...] minutes Drivers Follow Up per 60 min (11828): 1:1 time 60 min Total time: 60 minutes BIBI Louis, CDRS, CDI Certified Employee Placement Specialist Radius Corner Machine Operator documented in this encounterOhiohealth Grove City [facility] Hospital01-06-2023 History of Present illness Narrative* BIBI Yo - 02/11/2022 3:48 PM EST Episode Visit Count: 1 Therapist That Will Accept/Oversee The Plan Of Care: Emery Goel Start of Care Date: 02/11/22 Onset Date: 04/01/21 (stroke occurred while 1 week in acute hospital followed by 2-3 weeks at [facility] the 2 weeks at senior care facility in [place] prior to returning home; had outpatient [facility] [...] speech deficits resulting. 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 He has 3 sisters while main support lives in [place] and checks in often while he has one sister in [place] who he sees occasionally. He does have a motorcycle that he would ride on occasion in the past and plans to ride again in the future as appropriate. His sister, Georgina, that was with him verbalized that she does not think he is "himself" while seems anxious at times and does [...] Level of Education: High School Preferred Language: Luxembourgish Right or Left Handed: Right Employment: Retired (was truck farmer at time of stroke but has since retired) Recreation / Current Exercise: some walking to [email or web address] but otherwise no exercise Hobbies / Interests: [...] he also lives) more recently; has 2000 [address] that he bought new and only has 92,000 miles on it State: [place] License/Permit #: [id number] Expires: 11/26/22 Restrictions: class B CDL/Intrastate only, tank endorsement; has motorcycle endorsement 5 Yr. Violation HX: none 5 Yr. MVA HX: none Handicap Parking Placard: NO 1. Gustavo Mirlande Farrukh self report indicates an awareness of: some ongoing communication deficits. 2. Gustavo W Farrukh expressed confidence regarding driving at night/decreased light conditions, in congested traffic, on the interstate, on long trips, to back up, to make left turns , and when drivingalone. 3. Gustavo Mirlande Farrukh expressed no concerns regarding driving. OBJECTIVE MEASURES WITH LEVEL OF FUNCTION: SENSORIMOTOR ASSESSMENT: Hand dominance: Right Level of Function Relevant to I ADL, Community Mobility, and Driving: Right UE: Sufficient Left UE: Sufficient [facility] Attendant: Sufficient Right LE: Sufficient Left LE: Sufficient [...] VISUAL FUNCTION: functional with regards to the [place] BMV requirements however some concerns related to decreased [...] receptive and expressive language deficits Visual Scanning/Attention: [place] Making Part B (sec): 183 sec 50th percentile norm for age group: 60-69; Part A: 48 seconds, Part B: 119 seconds Heidy Clock Drawing Test: Gustavo Patton correctly included 6/8 criteria for this test. He failed to include or correctly place: the numbers equally, or nearly so, from each other the numbers equally spaced, or nearly so, from the edge of the [place] According to The Physician's Guide to Assessing [...] speed on visual perceptual screening for age [place] Employee Placement Specialist Simulator: Simple Brake Reaction Time: Average Distance: [...] in the event of emergency) TREATMENT: Evaluation Self-[facility] Management: 1: refer to documentation in this [...] this report indicates the ability of the class b truck driver to operate a motor vehicle [...] Complete Eye Exam: as indicated by eyeglass frames inspector Prognosis: Good Good due to: current objective clinical presentation;good overall health status Goals for Episode of Care created on 02/11/22 through 02/18/22 Patient will complete clinical training and/or testing at [place] level in preparation for returning to driving. Patient will complete functional mobility task with good safety awareness during behind the wheel assessment. Patient will return to/continue independent driving with or without restrictions. Planned Interventions, Frequency, and Duration: Current Frequency: 1 visit Duration: 1 visit Total Number of Visits Planned: 1 Patient to be see for Employee Placement Specialist rehab evaluation PLAN FOR NEXT VISIT: completion of the behind the wheel session Patient demonstrates good understanding of plan of care and treatment. The above goals and plan of care were discussed and agreed upon by patient/family. Billing: Total Treatment Time Minutes (timed/untimed) 120 minutes Evaluation - Moderate Complexity (71093) Self Care / Home Management (51553): 1:1 time: 60 minutes (4 units: 53-67 mins) Total time: 120 minutes BIBI Louis, CDRS, CDI Certified Employee Placement Specialist [place] Machine Operator documented in this encounterOhiohealth [facility]12-09-2022 Miscellaneous Notes* Telephone Encounter - Benita Johansen LPN - 01/14/2022 11:11 AM EST Zhanna with [facility] called and requested order for PT for pt be faxed to them FAX: [phone]. Identified pt with name and date of . Done. Benita Johansen LPN documented in this encounterOhiohealth Grove City [facility]12-08-2022 NoteHNO ID: [id number] Author: Clarence Colin MD Service: ? Author Type: Physician Type: Progress Notes Filed: 01/13/2022 10:55 AM Note Text: Gustavo Patton is a 71 year old male presents for evaluation of DVT. He was actually referred to vascular medidince, which we discussed that I am not, but he would have to go to [place] or another [facility] hospital for vascular medicine. When talking to [...] elevation for symptom control. Follow up prn Clarence Colin MD I spent 30 minutes in the visit, with more than 50% of the total gksx-zp-kmtx time of the visit in counseling / coordination of care.[facility]12-08-2022 History of Present illness Narrative* Clarence Colin MD - 01/13/2022 10:30 AM EST Gustavo Patton is a 71 year old male presents for evaluation of DVT. [facility], which we discussed that I am not, but he would have to go to [place] or another [facility] for vascular medicine. When talking to him, [...] elevation for symptom control. Follow up prn Clarence Colin MD I spent 30 minutes in the visit, with more than 50% of the total opuc-gm-vkib time of the visit in counseling / coordination of care. documented in this encounterOhiohealth Grove City [facility] Hospital11-30-2022 Miscellaneous Notes* Telephone Encounter - Meg Cedillo LPN - 01/05/2022 1:31 PM EST Dorinda from [facility] calling said she had asked for copy of last office visit and has never gotten it. printed visit from 12/17/2021 and faxed to [phone] as requested. documented in this encounterOhiohealth Grove City [facility] Hospital11-30-2022 Miscellaneous Notes* Telephone Encounter - Layne Manley Jr., MD - 01/05/2022 12:58 PM EST ----- Message from Alcira Elias PT sent at 01/03/2022 3:53 PM EST ----- Regarding: FW: driving eval Hi Dr Manley, Can you please change the order to OT (instead of PT) for the driving eval as we have OT's doing these assessments within [facility]. We will help get him scheduled accordingly. Thanks so much, Alcira Elias PT ----- Message ----- From: Gamaliel Regalado OTR/L Sent: 01/03/2022 1:18 PM EST To: Alcira Elias PT Subject: RE: driving eval I am doing well. Just been busy. Short of today where I have had 4 cancels. Miss you guys as well. As far as driving goes, Within the [facility] there is me in [place], Cathleen at [facility] in [place] and then there is up in the [facility] a couple of places. The order will need to be for OT. In fact I think wherever he goes it is only OTs doing driving. As far as scheduling, he just needs to call here at [phone] or [facility] at [phone]. Let me know if you have any more questions. Jesus ----- Message ----- From: Alcira Elias PT Sent: 01/03/2022 12:30 PM EST To: RAMÓN Stratton/Marixa Subject: driving eval Marty Lee, How's it going? Hope you're doing well. We miss you around here. Hey I have a quick question - I have a patient on my schedule next Monday who was referred to PT for driving eval. I see he lives in [place] so do you know if there would be anything closer for him? If not how does he get that scheduled with you? Do I need to have the Dr change the order to OT? Alcira Monsalve documented in this encounterOhiohealth Grove City [facility] Hospital11-29-2022 Miscellaneous Notes* Telephone Encounter - NATAN Noland - 01/04/2022 1:08 PM EST Please call and assist patient in scheduling consult with Vascular Medicine. Thank you. NATAN Noland * Telephone Encounter - Layne Manley Jr., MD - 01/04/2022 11:35 AM EST Order placed. Layne Manley MD * Telephone Encounter - NATAN Noland - 01/04/2022 10:16 AM EST TC to patient who is agreeable to see vascular medicine. Please place consult and route back so patient can be scheduled. Thank you. NATAN Noland * Telephone Encounter - NATAN Noland - 01/04/2022 10:14 AM EST ----- Message from Layne Manley Jr., MD sent at 01/03/2022 1:23 PM EST ----- Pt needs follow up with vascular for further recs regarding abnormalities on scans including post thrombotic changes and occlusion of L fem vein. Please help pt be scheduled ADRIEL with anyone in the department. Thank you, Layne Manley MD documented in this encounterOhiohealth Grove City [facility] Hospital11-28-2022 History of Present illness Narrative* Layne Manley Jr., MD - 01/03/2022 1:18 PM EST Opened in error. documented in this encounterOhiohealth Grove City [facility] Hospital11-22-2022 Miscellaneous Notes* Telephone Encounter - NATAN Noland - 12/28/2021 8:16 AM EST TC to patient who verbalizes understanding of providers message and has no questions at this time. NATAN Noland * Telephone Encounter - NATAN Noland - 12/28/2021 8:14 AM EST ----- Message from Layne Manley Jr., MD sent at 12/27/2021 6:19 PM EST ----- ECHO per report does not show a source of stroke. Layne Manley MD documented in this encounterOhiohealth Grove City [facility] Hospital11-21-2022 History of Present illness Narrative* Vicky Montgomery RN - 12/27/2021 2:45 PM EST 24 ga angio started to RAC. Good blood return. Flushed easily with NSS. Dressing applied. Agitated saline adminstered per protocol. 10 cc administered throughout procedure. 0 cc discarded. Pt tolerated procedure well. No C/o's, Hep lock D/c'd and dressing applied. Patient discharged ambulatory with Freelance Director. Vicky Montgomery RN documented in this encounterOhiohealth Grove City [facility] Hospital11-18-2022 History of Present illness Narrative* Arianna Mullen [...] 24, 2021 2:27 PM documented in this encounterOhiohealth Grove City [facility] Hospital11-11-2022 History of Present illness Narrative* Layne Manley Jr., MD - 12/17/2021 10:45 AM EST NEW PATIENT (CONSULT) HISTORY AND PHYSICAL EXAM PRIMARY CARE PHYSICIAN: No primary care provider on file. REASON FOR CONSULT: Stroke REFERRING PHYSICIAN: Self CHIEF COMPLAINT: Stroke follow up HISTORY OF PRESENT ILLNESS: Gustavo Patton is a 71 year old right handed male, with a PMH significant for stroke in 04/01/21. Pt seen at [facility] by [facility]. Was supposed to follow up in [...] M1. TNK given at 1032. Transported to [facility] for intervention and underwent LMCA thrombectomy. Repeat [...] follow up care. Currently following with Dr. Edith Fraser. Patient states he is doing fine. 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 Family states pt always [...] concerns. Orientation: 12/17/21Monday, Jose Alberto Saini 7s: [id number] Similar: Banana and orange: fruit Watch and ruler: does not know Delayed recall: 04/10 Repeat number: 88907 - 5309 (bkwds) 143-260 Repeat sentence: Unable to repeat. NIHSS: 1(a). [...] up in 3 months or sooner prn. Layne Manley MD I spent a total of 65 minutes on the date of the service which included preparing to see the patient, [id number] patient care, completing clinical documentation, obtaining and/or reviewing separately obtained history, performing a medically appropriate examination, counseling and educating the pat ient/family/caregiver, ordering medications, tests, or procedures, independently interpreting results (not separately reported), and communicating results to the patient/family/caregiver. documented in this encounterOhiohealth Grove City [facility] Hospital11-10-2022 Miscellaneous Notes* Telephone Encounter - NATAN Noland - 12/16/2021 3:13 PM EST FYI: TC to patient to inquire about appointment 12/17 as appointment notes say "multiple symptoms". Pt states he was seen at [facility] in March for an Acute Stoke and was told he would need a Neurology evaluation in order drive again. Pt coming in to be evaluated for license reinstatement. NATAN Noland documented in this encounterOhiohealth Grove City [facility] Hospital09-07-2022 Hospital Discharge instructions Additional Instructions Drink lots of fluids. He may take Tylenol for any discomfort. Take the entire course of antibiotics (1 pill in the morning 1 pill in the evening) with your first dose tomorrow morning as you received some today.[facility] Work Phone: 1(106) 693-726205-25-2022 Miscellaneous Notes* Telephone Encounter - Vicky Contreras RN - 06/30/2021 9:44 AM EDT MODIFIED MAXINE SCORE POST-DISCHARGE Telephone Visit Patient Name: Gustavo Patton Today's date: June 30, 2021 Date of discharge: April 07, 2021 Person giving information: Gustavo Patton. Relationship to patient: self. Contact information: [phone] Contact attempt: #1 Patient discharge [facility] Patient current location: home Presentation to ED or readmission after discharge: No Modified [place] Score: 90 days post discharge: 2 = Slight disability. Unable to carry out all previous activities but able to look after own affairs w/o assistance. Mortality: No Patient still with speech difficulty, but states he is able to be independent. Has an aide come to the house once a week. Signature: Vicky Contreras RN June 30, 2021 9:45 AM documented in this encounterOhiohealth Grove City [facility] Hospital05-23-2022 Miscellaneous Notes* Telephone Encounter - Celina Marshall [...] scheduled. Willa Jay APRN.MARIANA documented in this encounterOhiohealth Grove City [facility] Hospital05-03-2022 Nurse Note* Alicia Olvera, Risk Control Specialist - 06/08/2021 2:00 PM EDT Applied 14 day extended wear EKG patch. Pt a little confused with instructions, so I went over everything with 1 sister in person and one on the phone. documented in this encounterOhiohealth Grove City [facility] Hospital05-03-2022 History of Present illness Narrative* Nikita Quiros, RT(R) - 06/08/2021 10:00 AM EDT RADIOLOGY SERVICE [...] POST EXAM PIV STATUS: Discontinued PROCEDURE TYPE: NM Stress: 13.7mCi It06b-Wfxepiq was administered IV for Rest Imaging at 1010 by ty. 30.9 mCi Xy63x-Jekxajd was administered IV for Stress Imaging at 1125 by ms. ADMINISTRATION TIME: 09652 PATIENT DISCHARGED TO: Ambulatory patient, left CT department area. A Diagnostic radioactive procedure has taken place, with no further precautions necessary other than routine body substance precautions. More information regarding radiation safety can be found usingthis link: [email or web address] SIGNATURE: RT Donnie(R) PATIENT NAME: Gustavo Patton DATE: June 08, 2021 TIME: 12:40 PM PAGER/CONTACT #: documented in this encounterOhiohealth Grove City [facility] Hospital05-03-2022 Miscellaneous Notes* Result QuickNote - Willa Jay APRN.MARIANA - 06/08/2021 10:00 AM EDT Please call BOTH sisters with pts testing results per pt request please let him know that the results of the stress test show myocardial scar, NO ACTIVE ISCHEMIA with improved EF from prior . No change in medical treatment at this time.Keep planned appointment. Continue aspirin, statin and good hypertension control and metoprolol. documented in this encounterOhiohealth Grove City [facility] Hospital05-03-2022 Nurse Note* Dania Holguin RN - 06/08/2021 [...] and pt tolerated well. documented in this encounterOhiohealth Grove City [facility] Hospital04-27-2022 Miscellaneous Notes* Telephone Encounter - Jackeline Dunne RN - 06/02/2021 11:43 AM EDT The [facility] has reached out to the patient with no response. Therefore, this is considered a deferral of [facility] services at this time. documented in this encounterOhiohealth Grove City [facility] Hospital04-06-2022 Instructions* Patient Instructions* Willa Jay APRN.CNP - 05/12/2021 3:24 PM EDT Obtain Stress Wear monitor I will call both your sisters with your stress test results. documented in this encounterOhiohealth Grove City [facility] Hospital04-06-2022 History of Present illness Narrative* Willa Jay APRN.MARIANA - 05/12/2021 3:00 PM EDT PRIMARY CARE PHYSICIAN: To use this Smartlink, specify the provider ID whose address you want to display, e.g., .PROVADDR[1(where 1 is the provider ID). Chief Complaint Patient presents with: CARD Hospital Follow Up: hospital discharge HISTORY OF PRESENT ILLNESS: Mr. Patton is a 70 year old male who is known to Dr. Marin from his hospitalization in March 2021. Patient was transferred from [facility] after he was witnessed walking into [place] [...] therapy. It was also recommended by the general manager oracle data cloud that he have ischemic evaluation in the [...] Examination: Vitals:BP 116/72 Pulse 92 Ht 5' 10" (1.78m) Wt 179 lb 3.2 oz (81.3kg) [...] NM CARDIAC PERF STRESS/PHARM - EXTENDED WEAR POWDERED METAL SUPERVISOR PATCH - SELF CHECK COVID 2. L [...] to medications at discharge. Called [facility] in [place], they do not have him on any [...] to correct any errors. documented in this encounterOhiohealth Grove City [facility] Hospital04-06-2022 Nurse Note* Fidelia Conrad LPN - 05/12/2021 3:00 PM EDT Patient denies any cardiac complaints or symptoms. Not sure of medications he is taking. documented in this encounterOhiohealth Grove City [facility] Hospital03-31-2022 Miscellaneous Notes* Telephone Encounter - Jackeline Dunne RN - 05/06/2021 3:53 PM EDT Patient was discharged from [facility] 04/08/21 with an order to schedule with [...] discharged from the facility. [facility]* Diagnosis Shortness of breath [facility]* Diagnosis Shortness of breath [facility]* Diagnosis Shortness of breath documented in this encounter [facility] noteNo assessment information availableWMagruder Hospital Work Phone: Evaluation note* Diagnosis Cerebral [...] of cerebrovascular disease documented in this encounter [facility]* Diagnosis 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) Cerebral embolism with cerebral infarction documented in this encounter [facility]* Diagnosis Deep vein thrombosis (DVT) of popliteal vein of right lower extremity, unspecified chronicity (HCC) documented in this encounter [facility]* Diagnosis Deep vein thrombosis (DVT) of femoral vein, unspecified chronicity, unspecified laterality (HCC)- Primary documented in this encounter [facility]* Diagnosis 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)- Primary Cerebral embolism with cerebral infarction documented in this encounter [facility]* Diagnosis Deep vein thrombosis (DVT) of femoral vein, unspecified chronicity, unspecified laterality (HCC) documented in this encounter [facility]* Diagnosis 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) Cerebral embolism with cerebral infarction documented in this encounter [facility]* Diagnosis 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)- Primary Cerebral embolism with cerebral infarction documented in this encounter [facility]* Diagnosis Onset Date Resolution Status CVA (cerebrovascular accident) acute Dysarthria acute Paresthesia acute [facility] Work Phone: Evaluation note* Diagnosis 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) Cerebral embolism with cerebral infarction documented in this encounter [facility]* Diagnosis Onset Date Resolution Status Paresthesia resolved Cognitive change acute Debility acute Heme + stool acute Normochromic normocytic anemia acute Stroke/cerebrovascular accident acute Dehydration resolved Paresthesia resolved Superficial thrombophlebitis of left upper extremity resolved [facility] Work Phone: Evaluation note* Diagnosis Cerebrovascular accident (CVA), unspecified mechanism (HCC)- Primary Left arm weakness Other musculoskeletal symptoms referable to limbs Cognitive developmental delay [facility] Diagnosis Cerebrovascular accident (CVA), unspecified mechanism (HCC)- Primary documented in this encounter [facility]* Diagnosis Language impairment- Primary Other speech disturbance Cerebrovascular accident (CVA), unspecified mechanism (HCC) [facility]* Diagnosis Cerebrovascular accident (CVA), unspecified mechanism (HCC)- Primary Language impairment Other speech disturbance 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) Cerebral embolism with cerebral infarction documented in this encounter [facility]* Diagnosis Recurrent strokes (HCC)- Primary Cerebral infarction, unspecified mechanism (HCC) documented in this encounter [facility]* Diagnosis Recurrent strokes (HCC)- Primary Chronic deep vein thrombosis (DVT) of femoral vein of right lower extremity (HCC) Presence of IVC filter Other postprocedural status [facility]* Diagnosis Recurrent strokes (HCC)- Primary documented in this encounter [facility]* Diagnosis Cerebral infarction, unspecified mechanism (HCC) documented in this encounter [facility]* Diagnosis Elevated factor VIII level- Primary documented in [facility]* Diagnosis Cerebrovascular accident (CVA) due to thrombosis of left middle cerebral artery (HCC) Type 2 diabetes mellitus without complication, unspecified whether intermodal customer service insulin use (HCC) Diabetes (HCC) Type II [...] Other postprocedural status documented in this [facility] note* Diagnosis Cerebrovascular accident (CVA) due to thrombosis of left middle cerebral artery (HCC) Type 2 diabetes mellitus without complication, unspecified whether residential insulin use (HCC) Diabetes (HCC) Type II [...] Parkinsonism type (HCC) documented in this encounter [facility] note* Diagnosis Cerebrovascular accident (CVA) due to thrombosis of left middle cerebral artery (HCC) Type 2 diabetes mellitus without complication, unspecified whether residential insulin use (HCC) Diabetes (HCC) Type II or unspecified type diabetes mellitus without mention of complication, not stated as uncontrolled Deep vein thrombosis (DVT) of lower extremity (HCC) Dysphagia Dysphagia, unspecified Cardiomyopathy (HCC) Other primary cardiomyopathies Parkinsonism, unspecified Parkinsonism type (HCC) documented in this encounter [facility] note* Diagnosis Cerebrovascular accident (CVA) due to thrombosis of left middle cerebral artery (HCC) Type 2 diabetes mellitus without complication, unspecified whether residential insulin use (HCC) Diabetes (HCC) Type II [...] in limb Cervicalgia documented in this encounter [facility] note* Diagnosis Cerebrovascular accident (CVA) due to thrombosis of left middle cerebral artery (HCC) Type 2 diabetes mellitus without complication, unspecified whether residential insulin use (HCC) Diabetes (HCC) Type II or unspecified type diabetes mellitus without mention of complication, not stated as uncontrolled Deep vein thrombosis (DVT) of lower extremity (HCC) Dysphagia Dysphagia, unspecified Cardiomyopathy (HCC) Other primary cardiomyopathies Parkinsonism, unspecified Parkinsonism type (HCC) documented in this encounter [facility] note* Diagnosis Cerebrovascular accident (CVA) due to thrombosis of left middle cerebral artery (HCC) Type 2 diabetes mellitus without complication, unspecified whether residential insulin use (HCC) Diabetes (HCC) Type II or unspecified type diabetes mellitus without mention of complication, not stated as uncontrolled Deep vein thrombosis (DVT) of lower extremity (HCC) Dysphagia Dysphagia, unspecified Cardiomyopathy (HCC) Other primary cardiomyopathies Parkinsonism, unspecified Parkinsonism type (HCC) documented in this encounter [facility] note* Diagnosis Cerebrovascular accident (CVA) due to thrombosis of left middle cerebral artery (HCC) Type 2 diabetes mellitus without complication, unspecified whether intermodal customer service insulin use (HCC) Diabetes (HCC) Type II [...] rhythm sleep disorder documented in this encounter [facility] note* Diagnosis Cerebrovascular accident (CVA) due to thrombosis of left middle cerebral artery (HCC) Type 2 diabetes mellitus without complication, unspecified whether residential insulin use (HCC) Diabetes (HCC) Type II or unspecified type diabetes mellitus without mention of complication, not stated as uncontrolled Deep vein thrombosis (DVT) of lower extremity (HCC) Dysphagia Dysphagia, unspecified Cardiomyopathy (HCC) Other primary cardiomyopathies Parkinsonism, unspecified Parkinsonism type (HCC)- Primary Abnormality of gait documented in this encounter [facility] note* Diagnosis Cerebrovascular accident (CVA) due to thrombosis of left middle cerebral artery (HCC) Type 2 diabetes mellitus without complication, unspecified whether residential insulin use (HCC) Diabetes (HCC) Type II or unspecified type diabetes mellitus without mention of complication, not stated as uncontrolled Deep vein thrombosis (DVT) of lower extremity (HCC) Dysphagia Dysphagia, unspecified Cardiomyopathy (HCC) Other primary cardiomyopathies Elevated factor VIII level- Primary documented in this encounter [facility] note* Diagnosis Cerebrovascular accident (CVA) due to thrombosis of left middle cerebral artery (HCC) Type 2 diabetes mellitus without complication, unspecified whether intermodal customer service insulin use (HCC) Diabetes (HCC) Type II or unspecified type diabetes mellitus without mention of complication, not stated as uncontrolled Deep vein thrombosis (DVT) of lower extremity (HCC) Dysphagia Dysphagia, unspecified Cardiomyopathy (HCC) Other primary cardiomyopathies Abnormality of gait- Primary Parkinsonism, unspecified Parkinsonism type (HCC) documented in this encounter [facility] note* Diagnosis Onset Date Resolution Status Admit Date Acidosis, lactic acute Octembe r 2024 8:58pm Acute renal failure due to rhabdomyolysis acute October 17, 2024 8:58pm Closed head injury acute 2024 8:58pm Debility acute October 8:58pm High anion gap acute October 17, 2024 8:58pm History of multiple strokes acute October 17, 2024 8:58pm Laceration of nose acute 2024 8:58pm Primary cardiomyopathy acute Se pt2024 8:58pm Sinus tachycardia seen on teletypesetter monitor acute October 17, 2024 8:58pm Essential (primary) hypertension chronic October 17, 2024 8:58pm [facility] Work Phone: Hospital Discharge instructions Additional Instructions Please take [...] with given clinic within the next several weeks.[facility] Work Phone: Hospital Discharge instructionsAdditional Instructions Continue with hemodialysis per nephrology's routine.[facility] Work Phone: Reason for referral (narrative)* Diagnostic Procedure Only (Routine) - Pending Review Specialty Diagnoses / Procedures Referred By Contac t Referred To Contact MOLECULAR & FUNCTIONAL IMAGING Diagnoses Shortness of breath Procedures NM CARDIAC PERF STRESS/PHARM MYOCARDIAL SPECT MULTIPLE STUDIES Willa Jay APRN.CNP [address] [place] [phone] Fax: Molecular & Functional Imaging [address] [phone] Referral ID Status Reason Start Date Expiration Date Visits Requested Visits Authorized [id number] Pending Review Auto-Generat ed Referral 06/11/2021 06/11/2022 1 1 [facility] for referral (narrative)* Diagnostic Procedure Only (Routine) - Closed Specialty Diagnoses / Procedures Referred By Contac t Referred To Contact MOLECULAR & FUNCTIONAL IMAGING Diagnoses Shortness of breath Procedures NM CARDIAC PERF STRESS/PHARM MYOCARDIAL SPECT MULTIPLE STUDIES Willa Jay APRN.CNP [address] [place] [phone] Fax: Molecular [facility] Functional Imaging [address] [place] [address] Referral ID Status Reason Start Date Expiration Date V isits Requested Visits Authorized [id number] Closed Auto-Generate d Referral 05/13/2021 06/27/2021 1 1 [facility] for referral (narrative)* - Authorized Specialty Diagnoses / Procedures Referred By Contac t Referred To Contact Occupational Therapy Diagnoses Cerebrovascular accident (CVA), unspecified mechanism (HCC) Procedures CONSULT TO PEER SUPPORT SPECIALIST Fallon Steiner PA-C [address] [place] [address] Referral ID Status Reason Start Date Expiration Date V isits Requested Visits Authorized [id number] Authorized 04/20/2023 07/19/2023 99 99 [facility] for referral (narrative)No reason for referral information [facility]WM[facility] Work Phone: Reason for visit Narrative* Diagnostic Procedure Only (Routine) - Closed Specialty Diagnoses / Procedures Referred By Contac t Referred To Contact MOLECULAR & FUNCTIONAL IMAGING Diagnoses Shortness of breath Procedures NM CARDIAC PERF STRESS/PHARM MYOCARDIAL SPECT MULTIPLE STUDIES Willa Jay, TRUSS ASSEMBLER.COMMERCIAL UNDERWRITER [address] [place] [address] [facility] [address] [phone] Referral ID Status Reason Start Date Expiration Date V isits Requested Visits Authorized [id number] Closed Auto-Generate d Referral 05/13/2021 06/27/2021 1 1 [facility] for visit Narrative* Outpatient Procedure (Routine) - Closed Specialty Diagnoses / Procedures [facility] Diagnoses 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) Procedures ECHO WITH AGITATED SALINE CONTRAST ECHO TRANSTHORAC R-T 2D W/WO M-MODE REC COMP Layne Manley Jr., MD [address] [facility] [address] [place] [address] [facility] [address] [place] [address] Referral ID Status Reason Start Date Expiration Date V isits Requested Visits Authorized [id number] Closed Auto-Generate d Referral 12/17/2021 12/17/2022 1 1 [facility] for visit Narrative* Outpatient Procedure (Routine) - Closed Specialty Diagnoses / Procedures [facility] Referred To Contact [facility] Diagnoses Deep vein thrombosis (DVT) of popliteal vein of right lower extremity, unspecified chronicity (HCC) Procedures US LEG VEIN DVT KRUNAL VAS LAB DUP-SCAN XTR VEINS COMPLETE BILATERAL STUDY Layne Manley Jr., MD [address] [place] [address] [facility] [place] [address] Referral ID Status Reason Start Date Expiration Date V isits Requested Visits Authorized [id number] Closed Auto-Generate d Referral 12/17/2021 12/17/2022 1 1 [facility] Advance Directives No Advanced Directives Records FoundDocuments on File Type Date Recorded Patient Gasoline Tester Expl anation Advance Directive(s) 04/02/2021 12:29 PM Documents on File Type Date Recorded Patient Gasoline Tester Expl anation Advance Directive(s) 04/02/2021 12:29 PM Advance Directive Response Recorded Date/ Time Living Will No August 04, 2021 3:09pm Power of Account Clerk No August 04 3:09pm Advance Directive Response Recorded Date/ Time Living Will No October 13 11:01am Power of Account Clerk No October 13, 2021 11:01am Advance Directive Response Recorded Date/ Time Living Will No October 13 10:01am Power of Account Clerk No October 13, 2021 10:01am Advance Directive Response Recorded Date/ Time Living Will No November 22 9:55am Power of Account Clerk No November 22, 2022 9:55am Advance Directive Response Recorded Date/ Time Name of Medical Power of Account Clerk Patient doesn't remember at this time November 22, 2022 12:45pm Living Will Yes November 22 12:45pm Power of Account Clerk Yes November 22, 2022 12:45pm Advance Directive Response Recorded Date/ Time Name of Medical Power of Account Clerk Patient doesn't remember at this time November 22, 2022 11:45am Name of Medical Power of Account Clerk Renate Francois, sister November 25, 2022 9:27am Living Will Yes November 25 9:27am Power of Account Clerk Yes November 25, 2022 9:27am Advance Directive Response Recorded Date/ Time Living Will Yes November 25 10:27am Do you have a Healthcare Power of Account Clerk? Yes November 25, 2022 10:27am Advance Directive Response Recorded Date/ Time Do you have a Healthcare Power of Account Clerk? Yes October 17, 2024 6:18pm Advance Directive Response Recorded Date/ Time Do you have a Healthcare Power of Account Clerk? Yes October 17, 2024 9:51pm Chief Complaint and Reason for Visit Chief [...] 10:23am Stroke/cerebrovascular accident February 29, 2024 10:23am Chief Complaint Admit Date SIRS, CHRISTY, RHABOMYOLYSIS AND HEMATURIA S epteer 2024 8:58pm Reason for Visit Admit Date Acidosis, lactic October 17, 2024 8:58pm Acute renal failure due to rhabdomyolysi s October 17, 2024 8:58pm Closed head injury October 17, 2024 8:58pm Debility October 17, 2024 8:58pm High anion gap October 17, 2024 8:58pm History of multiple strokes October 172024 8:58pm Laceration of nose October 17, 2024 8:58pm Primary cardiomyopathy October 17, 2 025 8:58pm Sinus tachycardia seen on cardiac monito r October 17, 2024 8:58pm Essential (primary) hypertension Septemb er 2024 8:58pm Chief Complaint Admit Date SIRS, CHRISTY, RHABOMYOLYSIS AND HEMATURIA S eptember 2024 8:58pm SIRS, CHRISTY, RHABOMYOLYSIS AND HEMATURIA S epteer 2024 8:06am SIRS, CHRISTY, RHABOMYOLYSIS AND HEMATURIA S eptember 2024 7:00am SIRS, CHRISTY, RHABOMYOLYSIS AND HEMATURIA S eptember 2024 7:21am SIRS, CHRISTY, RHABOMYOLYSIS AND HEMATURIA S eptember 2024 2:03pm SIRS, CHRISTY, RHABOMYOLYSIS AND HEMATURIA S eptember 2024 4:30pm SIRS, CHRISTY, RHABOMYOLYSIS AND HEMATURIA S eptember 2024 8:36am SIRS, CHRISTY, RHABOMYOLYSIS AND HEMATURIA S eptember 2024 1:36pm SIRS, CHRISTY, RHABOMYOLYSIS AND HEMATURIA S eptember 2024 11:00am SIRS, CHRISTY, RHABOMYOLYSIS AND HEMATURIA [facility] 11:57am SIRS, CHRISTY, RHABOMYOLYSIS AND HEMATURIA S eptember 2024 3:29pm SIRS, CHRISTY, RHABOMYOLYSIS AND HEMATURIA S [facility] 2024 9:26am SIRS, CHRISTY, RHABOMYOLYSIS AND HEMATURIA S [facility] 2024 10:11am SIRS, CHRISTY, RHABOMYOLYSIS AND HEMATURIA S epteer 2024 8:25am SIRS, CHRISTY, RHABOMYOLYSIS AND HEMATURIA S [facility] 2024 11:51am SIRS, CHRISTY, RHABOMYOLYSIS AND HEMATURIA S eptember 2024 11:18am SIRS, CHRISTY, RHABOMYOLYSIS AND HEMATURIA S eptember 2024 12:36pm SIRS, CHRISTY, RHABOMYOLYSIS AND HEMATURIA S [facility] 2024 8:08am SIRS, CHRISTY, RHABOMYOLYSIS AND HEMATURIA S eptemb 2024 9:14am SIRS, CHRISTY, RHABOMYOLYSIS AND HEMATURIA S eptemb 2024 8:20am SIRS, CHRISTY, RHABOMYOLYSIS AND HEMATURIA S [facility] 2024 8:54am Reason for Visit Admit Date Debility October 17, 2024 8:58pm Unable to ambulate October 17, 2024 8:58pm Urethral stricture October 17, 2024 8:58pm Urinary retention October 17, 2024 8:58pm Acidosis, lactic October 17, 2024 8:58pm Acute renal failure due to rhabdomyolysi s October 17, 2024 8:58pm CHRISTY (acute kidney injury) October 8:58pm Closed head injury October 17, 2024 8:58pm Elevated troponin October 17, 2024 8:58pm Fall October 17, 2024 8:58pm Hematuria October 17, 2024 8:58pm High anion gap October 17, 2024 8:58pm High anion gap metabolic acidosis Septem ino 2024 8:58pm Laceration of nose October 17, 2024 8:58pm Rhabdomyolysis October 17, 2024 8:58pm Sinus tachycardia seen on cardiac monito r October 17, 2024 8:58pm SIRS (systemic inflammatory response syn drome) October 17, 2024 8:58pm Chronic anticoagulation October 17, 2024 8:58pm [facility] 8:58pm History of DVT (deep vein thrombosis) Se ptember 2024 8:58pm History of multiple strokes October 172024 8:58pm Hyperglycemia due to type 2 diabetes nikita litus October 17, 2024 8:58pm Parkinson disease October 17, 2024 8:58pm Primary cardiomyopathy October 17, 025 8:58pm [facility] 8[facility] Chief Complaint Admit Date SIRS, CHRISTY, RHABOMYOLYSIS AND HEMATURIA S epteer 2024 8:58pm SIRS, CHRISTY, RHABOMYOLYSIS AND HEMATURIA S epteer 2024 8:06am SIRS, CHRISTY, RHABOMYOLYSIS AND HEMATURIA S epteer 2024 7:00am SIRS, CHRISTY, RHABOMYOLYSIS AND HEMATURIA S eptember 2024 7:21am SIRS, CHRISTY, RHABOMYOLYSIS AND HEMATURIA S epteer 2024 2:03pm SIRS, CHRISTY, RHABOMYOLYSIS AND HEMATURIA S epteer 2024 4:30pm SIRS, CHRISTY, RHABOMYOLYSIS AND HEMATURIA S epteer 2024 8:36am SIRS, CHRISTY, RHABOMYOLYSIS AND HEMATURIA S eptember 2024 1:36pm SIRS, CHRISTY, RHABOMYOLYSIS AND HEMATURIA S eptember 2024 11:00am SIRS, CHRISTY, RHABOMYOLYSIS AND HEMATURIA S eptember 2024 11:57am SIRS, CHRISTY, RHABOMYOLYSIS AND HEMATURIA S epteer 2024 3:29pm SIRS, CHRISTY, RHABOMYOLYSIS AND HEMATURIA S eptember 2024 9:26am SIRS, CHRISTY, RHABOMYOLYSIS AND HEMATURIA S tember 2024 10:11am SIRS, CHRISTY, RHABOMYOLYSIS AND HEMATURIA S eptember 2024 8:25am SIRS, CHRISTY, RHABOMYOLYSIS AND HEMATURIA S [facility] 2024 11:51am SIRS, CHRISTY, RHABOMYOLYSIS AND HEMATURIA S [facility] 2024 11:18am SIRS, CHRISTY, RHABOMYOLYSIS AND HEMATURIA S [facility] 2024 12:36pm SIRS, CHRISTY, RHABOMYOLYSIS AND HEMATURIA S [facility] 2024 8:08am SIRS, CHRISTY, RHABOMYOLYSIS AND HEMATURIA S [facility] 2024 9:14am SIRS, CHRISTY, RHABOMYOLYSIS AND HEMATURIA S [facility] 2024 8:20am SIRS, CHRISTY, RHABOMYOLYSIS AND HEMATURIA S [facility] 2024 8:54am ADMISSION H&P 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 October 30, 2024 5:57pm INTERMEDIATE LAB WORK October 31 5:30am NEW CONCERN October 31, 2024 3:29pm LAB WORK November 06, 2024 7: 00am LABWORK November 13, 2024 5: 30am Summary Purpose Family History No Family History Records Found Relationship Condition Age at Onset Recorded Date/T jamar father Diabetes mellitus Unknown Reason for Referral Specialty Diagnoses / Procedures Referred By Contac t Referred To Contact [facility] Diagnoses 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 Diagnoses Deep vein thrombosis (DVT) of popliteal vein of right lower extremity, unspecified chronicity (HCC) Procedures US LEG VEIN DVT KRUNAL VAS LAB DUP-SCAN XTR VEINS COMPLETE BILATERAL STUDY Layne Manley Jr., MD [address] [place] [address] 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) Procedures CT BRAIN WO IVCON CT HEAD/BRAIN W/O CONTRAST MATERIAL Layne Manley Jr., MD [address] [facility] [address] [place] [address] Ct Imaging Referral ID Status Reason Start Date Expiration Date V isits Requested Visits Authorized [id number] Open Auto-Generate d Referral 12/17/2021 01/16/2023 1 1 Specialty Diagnoses / Procedures Referred By Contac t Referred To Contact Vascular Medicine Diagnoses Deep vein thrombosis (DVT) of femoral vein, unspecified chronicity, unspecified laterality (HCC) Procedures CONSULT TO VASCULAR MEDICINE OFFICE/OUTPATIENT NEW HIGH MDM 60-74 MINUTES Layne Manley Jr., MD [address] [facility] [address] [place] [address] Referral ID Status Reason Start Date Expiration Date Visits Requested Visits Authorized [id number] Authorized PCP Requested Referral 2 01/04/2023 1 1 Specialty Diagnoses / Procedures Referred By Contac t Referred To Contact [facility] Diagnoses 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) Procedures CONSULT TO PEER SUPPORT SPECIALIST OCCUPATIONAL THERAPY EVAL HIGH COMPLEX 60 MINS Layne Manley Jr., MD [address] [facility] [address] [place] [address] [facility] [place] [address] [place] [address] Referral ID Status Reason Start Date Expiration Date Visits Requested Visits Authorized [id number] Pending Review Auto-Generat ed Referral 2 01/05/2023 1 1 Specialty Diagnoses / Procedures Referred By Contac t Referred To Contact CT IMAGING Diagnoses 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) Procedures CT BRAIN WO IVCON CT HEAD/BRAIN W/O CONTRAST MATERIAL Layne Manley Jr., MD [address] [facility] [address] [place] [address] Ct Imaging [facility] Referral ID Status Reason Start Date Expiration Date V isits Requested Visits Authorized [id number] Denied Auto-Generate d Referral 12/17/2021 01/16/2023 1 0 Specialty Diagnoses / Procedures Referred By Contac t Referred To Contact [facility] Diagnoses Cerebrovascular accident (CVA), unspecified mechanism (HCC) Procedures CONSULT TO PHYSICAL THERAPY PHYSICAL THERAPY EVALUATION HIGH COMPLEX 45 MINS Fallon Steiner PA-C [address] [place] [address] [facility] [place] [address] Referral ID Status Reason Start Date Expiration Date Visits Requested Visits Authorized [id number] Authorized PCP Requested Referral Auto-Generate d Referral 04/18/2023 04/17/2024 99 99 Specialty Diagnoses / Procedures Referred By Contac t Referred To Contact Diagnoses Recurrent strokes (HCC) Procedures CONSULT TO HEMATOLOGY/ONCOLOGY OFFICE/OUTPATIENT [facility] 60 MINUTES Layne Manley Jr., MD [address] [facility] [address] [place] [address] Referral ID Status Reason Start Date Expiration Date Visits Requested Visits Authorized [id number] Authorized PCP Requested Referral 07/17/2023 07/16/2024 1 1 Specialty Diagnoses / Procedures Referred By Contac t Referred To Contact MR IMAGING Diagnoses Cerebral infarction, unspecified mechanism (HCC) Procedures MRA CAROTID WO IVCON MRA, NECK; W/O CONTRAST Layne Manley Jr., MD [address] [facility] [address] [place] [address] Mr Imaging [facility]95 Referral ID Status Reason Start Date Expiration Date Visits Requested Visits Authorized [id number] Authorized Auto-Generat ed Referral 07/17/2023 08/15/2024 1 1 Specialty Diagnoses / Procedures Referred By Contac t Referred To Contact MR IMAGING Diagnoses Cerebral infarction, unspecified mechanism (HCC) Procedures MRA BRAIN WO IVCON MRA, HEAD W/O CONTRAST Layne Manley Jr., MD [address] [facility] [address] [place] [address] Mr Imaging [facility]95 Referral ID Status Reason Start Date Expiration Date Visits Requested Visits Authorized [id number] Authorized Auto-Generat ed Referral 07/17/2023 08/15/2024 1 1 Referral ID Status Reason Start Date Expiration Date V isits Requested Visits Authorized [id number] Closed Auto-Generate d Referral 07/17/2023 08/15/2024 1 1 Referral ID Status Reason Start Date Expiration Date V isits Requested Visits Authorized [id number] Closed Auto-Generate d Referral 07/17/2023 08/15/2024 1 1 Specialty Diagnoses / Procedures Referred By Silvia t Referred To Contact [facility] Diagnoses Parkinsonism, unspecified Parkinsonism type (HCC) Pain in finger of left hand Cervicalgia Procedures CONSULT TO PHYSICAL THERAPY PHYSICAL THERAPY EVALUATION HIGH COMPLEX 45 MINS Fallon Steiner PA-C [address] [place] [address] [facility] [address] [place] [address] Referral ID Status Reason Start Date Expiration Date Visits Requested Visits Authorized [id number] Authorized PCP Requested Referral Auto-Generate d Referral 12/05/2024 99 99 Medications Administered Section Inactive Administered Medications - up to 3 most recent administrations Medication Order MAR Action Action Date Dose Rate Site sodium chloride 0.9 % (flush) 10 mL (BD POSIFLUSH) 10 mL, INTRAVENOUS, DIRECTED NEEDED, 1 dose, Starting on Mon12/17/21 at 1136, Until Mon12/27/21 at 1330, Per-Protocol - for use during [...] or prosecute any alcohol or drug abuse patient.[facility] the event this information is protected by the Federal Confidentiality of Alcohol and Drug Abuse Patient Records regulations: The Federal rules restrict any use of the information to criminally investigate or prosecute any alcohol or drug abuse patient.[facility] the event this information is protected by the Federal Confidentiality of Alcohol and Drug Abuse Patient Records regulations: The Federal rules restrict any use of the information to criminally investigate or prosecute any alcohol or drug abuse patient.[facility] the event this information is protected by the Federal Confidentiality of Alcohol and Drug Abuse Patient Records regulations: The Federal rules restrict any use of the information to criminally investigate or prosecute any alcohol or drug abuse patient.[facility] the event this information is protected by the Federal Confidentiality of Alcohol and Drug Abuse Patient Records regulations: The Federal rules restrict any use of the information to criminally investigate or prosecute any alcohol or drug abuse patient.[facility] the event this information is protected by the Federal Confidentiality of Alcohol and Drug Abuse Patient Records regulations: The Federal rules restrict any use of the information to criminally investigate or prosecute any alcohol or drug abuse patient.[facility] the event this information is protected by the Federal Confidentiality of Alcohol and Drug Abuse Patient Records regulations: The Federal rules restrict any use of the information to criminally investigate or prosecute any alcohol or drug abuse patient.[facility] HospitalIn the event this information is protected by the Federal Confidentiality of Alcohol and Drug Abuse Patient Records regulations: The Federal rules restrict any use of the information to criminally investigate or prosecute any alcohol or drug abuse patient.[facility] HospitalIn the event this information is protected by the Federal Confidentiality of Alcohol and Drug Abuse Patient Records regulations: The Federal rules restrict any use of the information to criminally investigate or prosecute any alcohol or drug abuse patient.[facility] HospitalIn the event this information is protected by the Federal Confidentiality of Alcohol and Drug Abuse Patient Records regulations: The Federal rules restrict any use of the information to criminally investigate or prosecute any alcohol or drug abuse patient.[facility] HospitalIn the event this information is protected by the Federal Confidentiality of Alcohol and Drug Abuse Patient Records regulations: The Federal rules restrict any use of the information to criminally investigate or prosecute any alcohol or drug abuse patient.[facility] HospitalIn the event this information is protected by the Federal Confidentiality of Alcohol and Drug Abuse Patient Records regulations: The Federal rules restrict any use of the information to criminally investigate or prosecute any alcohol or drug abuse patient.[facility] HospitalIn the event this information is protected by the Federal Confidentiality of Alcohol and Drug Abuse Patient Records regulations: The Federal rules restrict any use of the information to criminally investigate or prosecute any alcohol or drug abuse patient.[facility] HospitalIn the event this information is protected by the Federal Confidentiality of Alcohol and Drug Abuse Patient Records regulations: The Federal rules restrict any use of the information to criminally investigate or prosecute any alcohol or drug abuse patient.[facility] HospitalIn the event this information is protected by the Federal Confidentiality of Alcohol and Drug Abuse Patient Records regulations: The Federal rules restrict any use of the information to criminally investigate or prosecute any alcohol or drug abuse patient.[facility] HospitalIn the event this information is protected by the Federal Confidentiality of Alcohol and Drug Abuse Patient Records regulations: The Federal rules restrict any use of the information to criminally investigate or prosecute any alcohol or drug abuse patient.[facility] HospitalIn the event this information is protected by the Federal Confidentiality of Alcohol and Drug Abuse Patient Records regulations: The Federal rules restrict any use of the information to criminally investigate or prosecute any alcohol or drug abuse patient.[facility] HospitalIn the event this information is protected by the Federal Confidentiality of Alcohol and Drug Abuse Patient Records regulations: The Federal rules restrict any use of the information to criminally investigate or prosecute any alcohol or drug abuse patient.[facility] HospitalIn the event this information is protected by the Federal Confidentiality of Alcohol and Drug Abuse Patient Records regulations: The Federal rules restrict any use of the information to criminally investigate or prosecute any alcohol or drug abuse patient.[facility] HospitalIn the event this information is protected by the Federal Confidentiality of Alcohol and Drug Abuse Patient Records regulations: The Federal rules restrict any use of the information to criminally investigate or prosecute any alcohol or drug abuse patient.[facility] HospitalIn the event this information is protected by the Federal Confidentiality of Alcohol and Drug Abuse Patient Records regulations: The Federal rules restrict any use of the information to criminally investigate or prosecute any alcohol or drug abuse patient.[facility] HospitalIn the event this information is protected by the Federal Confidentiality of Alcohol and Drug Abuse Patient Records regulations: The Federal rules restrict any use of the information to criminally investigate or prosecute any alcohol or drug abuse patient.[facility] HospitalIn the event this information is protected by the Federal Confidentiality of Alcohol and Drug Abuse Patient Records regulations: The Federal rules restrict any use of the information to criminally investigate or prosecute any alcohol or drug abuse patient.[facility] HospitalIn the event this information is protected by the Federal Confidentiality of Alcohol and Drug Abuse Patient Records regulations: The Federal rules restrict any use of the information to criminally investigate or prosecute any alcohol or drug abuse patient.[facility] HospitalIn the event this information is protected by the Federal Confidentiality of Alcohol and Drug Abuse Patient Records regulations: The Federal rules restrict any use of the information to criminally investigate or prosecute any alcohol or drug abuse patient.[facility] HospitalIn the event this information is protected by the Federal Confidentiality of Alcohol and Drug Abuse Patient Records regulations: The Federal rules restrict any use of the information to criminally investigate or prosecute any alcohol or drug abuse patient.[facility] HospitalIn the event this information is protected by the Federal Confidentiality of Alcohol and Drug Abuse Patient Records regulations: The Federal rules restrict any use of the information to criminally investigate or prosecute any alcohol or drug abuse patient.[facility] HospitalIn the event this information is protected by the Federal Confidentiality of Alcohol and Drug Abuse Patient Records regulations: The Federal rules restrict any use of the information to criminally investigate or prosecute any alcohol or drug abuse patient.[facility] HospitalIn the event this information is protected by the Federal Confidentiality of Alcohol and Drug Abuse Patient Records regulations: The Federal rules restrict any use of the information to criminally investigate or prosecute any alcohol or drug abuse patient.[facility] HospitalIn the event this information is protected by the Federal Confidentiality of Alcohol and Drug Abuse Patient Records regulations: The Federal rules restrict any use of the information to criminally investigate or prosecute any alcohol or drug abuse patient.[facility] HospitalIn the event this information is protected by the Federal Confidentiality of Alcohol and Drug Abuse Patient Records regulations: The Federal rules restrict any use of the information to criminally investigate or prosecute any alcohol or drug abuse patient.[facility] HospitalIn the event this information is protected by the Federal Confidentiality of Alcohol and Drug Abuse Patient Records regulations: The Federal rules restrict any use of the information to criminally investigate or prosecute any alcohol or drug abuse patient.[facility] HospitalIn the event this information is protected by the Federal Confidentiality of Alcohol and Drug Abuse Patient Records regulations: The Federal rules restrict any use of the information to criminally investigate or prosecute any alcohol or drug abuse patient.[facility] HospitalIn the event this information is protected by the Federal Confidentiality of Alcohol and Drug Abuse Patient Records regulations: The Federal rules restrict any use of the information to criminally investigate or prosecute any alcohol or drug abuse patient.[facility] HospitalIn the event this information is protected by the Federal Confidentiality of Alcohol and Drug Abuse Patient Records regulations: The Federal rules restrict any use of the information to criminally investigate or prosecute any alcohol or drug abuse patient.[facility] HospitalIn the event this information is protected by the Federal Confidentiality of Alcohol and Drug Abuse Patient Records regulations: The Federal rules restrict any use of the information to criminally investigate or prosecute any alcohol or drug abuse patient.[facility] HospitalIn the event this information is protected by the Federal Confidentiality of Alcohol and Drug Abuse Patient Records regulations: The Federal rules restrict any use of the information to criminally investigate or prosecute any alcohol or drug abuse patient.[facility] HospitalIn the event this information is protected by the Federal Confidentiality of Alcohol and Drug Abuse Patient Records regulations: The Federal rules restrict any use of the information to criminally investigate or prosecute any alcohol or drug abuse patient.[facility] HospitalIn the event this information is protected by the Federal Confidentiality of Alcohol and Drug Abuse Patient Records regulations: The Federal rules restrict any use of the information to criminally investigate or prosecute any alcohol or drug abuse patient.[facility] HospitalIn the event this information is protected by the Federal Confidentiality of Alcohol and Drug Abuse Patient Records regulations: The Federal rules restrict any use of the information to criminally investigate or prosecute any alcohol or drug abuse patient.[facility] HospitalIn the event this information is protected by the Federal Confidentiality of Alcohol and Drug Abuse Patient Records regulations: The Federal rules restrict any use of the information to criminally investigate or prosecute any alcohol or drug abuse patient.[facility] HospitalIn the event this information is protected by the Federal Confidentiality of Alcohol and Drug Abuse Patient Records regulations: The Federal rules restrict any use of the information to criminally investigate or prosecute any alcohol or drug abuse patient.[facility] HospitalIn the event this information is protected by the Federal Confidentiality of Alcohol and Drug Abuse Patient Records regulations: The Federal rules restrict any use of the information to criminally investigate or prosecute any alcohol or drug abuse patient.[facility] HospitalIn the event this information is protected by the Federal Confidentiality of Alcohol and Drug Abuse Patient Records regulations: The Federal rules restrict any use of the information to criminally investigate or prosecute any alcohol or drug abuse patient.[facility] HospitalIn the event this information is protected by the Federal Confidentiality of Alcohol and Drug Abuse Patient Records regulations: The Federal rules restrict any use of the information to criminally investigate or prosecute any alcohol or drug abuse patient.[facility] HospitalIn the event this information is protected by the Federal Confidentiality of Alcohol and Drug Abuse Patient Records regulations: The Federal rules restrict any use of the information to criminally investigate or prosecute any alcohol or drug abuse patient.[facility] HospitalIn the event this information is protected by the Federal Confidentiality of Alcohol and Drug Abuse Patient Records regulations: The Federal rules restrict any use of the information to criminally investigate or prosecute any alcohol or drug abuse patient.[facility] HospitalIn the event this information is protected by the Federal Confidentiality of Alcohol and Drug Abuse Patient Records regulations: The Federal rules restrict any use of the information to criminally investigate or prosecute any alcohol or drug abuse patient.[facility] HospitalIn the event this information is protected by the Federal Confidentiality of Alcohol and Drug Abuse Patient Records regulations: The Federal rules restrict any use of the information to criminally investigate or prosecute any alcohol or drug abuse patient.[facility] HospitalIn the event this information is protected by the Federal Confidentiality of Alcohol and Drug Abuse Patient Records regulations: The Federal rules restrict any use of the information to criminally investigate or prosecute any alcohol or drug abuse patient.[facility] HospitalIn the event this information is protected by the Federal Confidentiality of Alcohol and Drug Abuse Patient Records regulations: The Federal rules restrict any use of the information to criminally investigate or prosecute any alcohol or drug abuse patient.[facility] HospitalIn the event this information is protected by the Federal Confidentiality of Alcohol and Drug Abuse Patient Records regulations: The Federal rules restrict any use of the information to criminally investigate or prosecute any alcohol or drug abuse patient.[facility] HospitalIn the event this information is protected by the Federal Confidentiality of Alcohol and Drug Abuse Patient Records regulations: The Federal rules restrict any use of the information to criminally investigate or prosecute any alcohol or drug abuse patient.[facility] HospitalIn the event this information is protected by the Federal Confidentiality of Alcohol and Drug Abuse Patient Records regulations: The Federal rules restrict any use of the information to criminally investigate or prosecute any alcohol or drug abuse patient.[facility] HospitalIn the event this information is protected by the Federal Confidentiality of Alcohol and Drug Abuse Patient Records regulations: The Federal rules restrict any use of the information to criminally investigate or prosecute any alcohol or drug abuse patient.[facility] HospitalIn the event this information is protected by the Federal Confidentiality of Alcohol and Drug Abuse Patient Records regulations: The Federal rules restrict any use of the information to criminally investigate or prosecute any alcohol or drug abuse patient.[facility] HospitalIn the event this information is protected by the Federal Confidentiality of Alcohol and Drug Abuse Patient Records regulations: The Federal rules restrict any use of the information to criminally investigate or prosecute any alcohol or drug abuse patient.[facility] HospitalIn the event this information is protected by the Federal Confidentiality of Alcohol and Drug Abuse Patient Records regulations: The Federal rules restrict any use of the information to criminally investigate or prosecute any alcohol or drug abuse patient.[facility] HospitalIn the event this information is protected by the Federal Confidentiality of Alcohol and Drug Abuse Patient Records regulations: The Federal rules restrict any use of the information to criminally investigate or prosecute any alcohol or drug abuse patient.[facility] Reason for Visit (unrecogniz ed section and content) Reason Comments OT EVAL Specialty Diagnoses / Procedures Referred By Contac t Referred To Contact Occupational Therapy Diagnoses Cerebrovascular accident (CVA), unspecified mechanism (HCC) Procedures CONSULT TO PEER SUPPORT SPECIALIST Fallon Steiner PA-C [address] [place] [address] Referral ID Status Reason Start Date Expiration Date V isits Requested Visits Authorized [id number] Authorized 04/20/2023 07/19/2023 99 99 Reason Comments Occupational Therapy Specialty Diagnoses / Procedures Referred By Contac t Referred To Contact OCCUPATIONAL THERAPY Diagnoses 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) Procedures CONSULT TO PEER SUPPORT SPECIALIST OCCUPATIONAL THERAPY EVAL HIGH COMPLEX 60 MINS Layne Manley Jr., MD [address] [facility] [address] [place] [address] Cathleen Goel OT/L Referral ID Status Reason Start Date Expiration Date V isits Requested Visits Authorized [id number] Authorized 01/05/2022 01/05/2023 99 99 Reason Comments Orders [facility] - appt contac t/SNF letter 2 Reason Comments CARD Hospital Follow Up hospital dischar ge Reason Comments Orders [facility] - order conta ct/deferral Reason Comments Results Reason Onset Date Comments modified Maxine score 06/30/2021 Reason Comments Appointment Reason Comments New Patient Consult for evaluati on for driving post CVA Reason Comments Results Reason Comments Orders Reason Comments [facility] requesting record s Reason Comments Venous Thrombus Gustavo is here for DV T Rfd by Dr. 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, unspecified chronicity, unspecified laterality (HCC) Procedures CONSULT TO VASCULAR MEDICINE OFFICE/OUTPATIENT NEW HIGH MDM 60-74 MINUTES Layne Manley Jr., MD [address] [facility] [address] [place] [address] Referral ID Status Reason Start Date Expiration Date V isits Requested Visits Authorized [id number] Closed PCP Requested Referral 01/04/2022 01/04/2023 1 1 Reason Comments Fax order to out side Reason Comments Information Reason Comments Refill Request Reason Comments Radiology CT Specialty Diagnoses / Procedures Referred By Silvia abreu Referred To Contact CT IMAGING Diagnoses 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 Reason Comments Patient Question Reason Comments Results Patient Update This therapist chinchilla d patient's sister who is DPOA and lives in [place] regarding Gustavo's recent clinical assessment results of [...] Therapy Specialty Diagnoses / Procedures Referred By Silvia abreu Referred To Contact OCCUPATIONAL THERAPY Diagnoses Self pay driving Procedures Self pay driving Self Ot [address] [address] Referral ID Status Reason Start Date Expiration Date Visits Requested Visits Authorized [id number] Authorized Financial Clearance Required - Self Pay 05/04/2023 02/06/2024 2 2 Reason Comments New Patient New Patient Hx Strok e. Reason Comments New Patient Reason Comments Release Of Medical Records Reason Comments New Patient Evaluation Specialty Diagnoses / Procedures Referred By Silvia abreu Referred To Contact Diagnoses Recurrent strokes (HCC) Procedures CONSULT TO HEMATOLOGY/ONCOLOGY OFFICE/OUTPATIENT NEW HIGH MDM 60 MINUTES Layne Manley Jr., MD [address] [place] [address] Referral ID Status Reason Start Date Expiration Date V isits Requested Visits Authorized [id number] Closed PCP Requested Referral 07/17/2023 07/16/2024 1 1 Reason Comments Follow Up Reason Comments Patient Update Specialty Diagnoses / Procedures Referred By Contac t Referred To Contact MR IMAGING Diagnoses Cerebral infarction, unspecified mechanism (HCC) Procedures MRA CAROTID WO IVCON MRA, NECK; W/O CONTRAST Layne Manley Jr., MD [address] [facility] [address] [place] [address] [facility] [place] [address] Referral ID Status Reason Start Date Expiration Date V isits Requested Visits Authorized [id number] Closed Auto-Generate d Referral 07/17/2023 08/15/2024 1 [...] PHYSICAL THERAPY EVALUATION HIGH COMPLEX 45 MINS Layne Manley Jr., MD [address] [place], [place] [id number] Phone: tel: fax: [facility] [address] [place] [address] Referral ID Status Reason Start Date Expiration Date Visits Requested Visits Authorized [id number] Authorized PCP Requested Referral Auto-Generate d Referral 07/12/2024 07/12/2025 99 99 Reason Comments PT Discharge Specialty Diagnoses / Procedures Referred By Contac t Referred To Contact [facility] Diagnoses Parkinsonism, unspecified Parkinsonism type (HCC) Abnormality of gait Procedures PHYSICAL THERAPY EVALUATION HIGH COMPLEX 45 MINS Layne Manley Jr., MD [address] [place] [address] Phone: tel: fax: [facility] [address] [place] [id number] Goals (unrecognized section and content) Goals may [...] section and content) DATE CREATED AUTHOR 08/07/2021 [facility] DATE CREATED AUTHOR AUTHOR'S ORGANIZ ATION 09/30/2022 [facility] DATE CREATED AUTHOR AUTHOR'S ORGANIZ ATION 05/26/2023 [facility] DATE CREATED AUTHOR AUTHOR'S ORGANIZ ATION 09/17/2024 [facility] DATE CREATED AUTHOR AUTHOR'S ORGANIZ ATION 12/18/2024 [facility] Care Teams (unrecognized sec tion and content) Land Department Head Relationship Specialty Start Date End Date Edith Fraser MD [address] [facility] [address] [place] [address] PCP - General Family Medicine 01/10/22 Layne Manley Jr., MD [address] [place] [address] Neurology 01/10/22 Land Department Head Relationship Specialty Start Date End Date Edith Fraser MD [address] [facility] [address] [place] [address] PCP - General Family Medicine 01/10/22 Layne Manley Jr., MD [address] [place] [address] Neurology 01/10/22 Land Department Head Relationship Specialty Start Date End Date Edith Fraser MD [address] [facility] [address] [place] [address] PCP - General Family Medicine 01/10/22 Layne Manley Jr., MD [address] [place], [place] [address] Neurology 01/10/22 Team Status: Active Member Role Status Dates U Family Provider Active Madhavi Chaudhry DO Primary Care Provider Active Team Status: Active Member Role Status Dates Madhavi Chaudhry DO Primary Care Provider Active Dr. Javon Vazquez MD Attending Provider Active Team Status: Active Member Role Status Dates Dr. Edith Fraser MD Primary Care Provider Active Dr. Layne Manley MD Attending Provider, Referring P rovider Active Team Status: Inactive Member Role Status Dates Ayla Stathoptorrieos , [employer]-C Attending Provider, Referr ing Provider Active Madhavi Chaudhry DO Primary Care Provider Active Team Status: Inactive Member Role Status Dates Madhavi Chaudhry DO Primary Care Provider Active Ayla Stathopoulos , [employer] TENDER-C Attending Provider, Referr ing Provider Active Land Department Head Relationship Specialty Start Date End Date Edith Fraser MD [address] [address] PCP - [facility] 01/10/22 Layne Manley Jr., MD [address] [place] [address] Neurology 01/10/22 Team Status: Active Member Role Status Dates Madhavi Chaudhry DO Primary Care Provider Active Dr. Javon Vazquez MD Attending Provider Active Ayla Stathoptorrieos , [employer] TENDER-C Referring Provider Active Team Status: Inactive Member Role Status Dates Dr. Edith Fraser MD Primary Care Provider Active Dr. Layne Manley MD Attending Provider, Referring P rovider Active Team Status: Active Member Role Status Dates Madhavi Chaudhry DO Primary Care Provider Active Dr. Cristhian Carlos , Emergency Provider Active Dr. Jerod Cavazos DO Admit Provider, Attending Provider Active Team Status: Active Member Role Status Dates Madhavi Chaudhry DO Primary Care Provider Active Dr. Moriah Jones MD Attending Provider Activ e Team Status: Active Member Role Status Dates Madhavi M Richa , DO Primary Care Provider Active Dr. [...] , DO Primary Care Provider Active Dr. Moriah [...] Provi ellen, Attending Provider, Referring Provider Active Land Department Head Relationship Specialty Start Date End Date Edith Fraser MD [address] [address] PCP - General Family Medicine 01/10/22 Layne Manley Jr., MD [address] [place] [address] Neurology 01/10/22 Land Department Head Relationship Specialty Start Date End Date Edith Fraser MD [address] [facility] [address] [place] [address] PCP - General Family Medicine 01/10/22 Layne Manley Jr., MD [address] [place] [address] Neurology 01/10/22 Land Department Head Relationship Specialty Start Date End Date Edith Fraser MD [address] [facility] [address] [place] [address] PCP - General Family Medicine 01/10/22 Layne Manley Jr., MD [address] [facility] [address] Neurology 01/10/22 Land Department Head Relationship Specialty Start Date End Date Edith Fraser MD [address] [facility] [address] [place] [address] PCP - General Family Medicine 01/10/22 Layne Manley Jr., MD [address] [facility] [address] Neurology 01/10/22 Land Department Head Relationship Specialty Start Date End Date Edith Fraser MD [address] [facility] [address] [place] [address] PCP - General Family Medicine 01/10/22 Layne Manley Jr., MD [address] [facility] [address] Neurology 01/10/22 Land Department Head Relationship Specialty Start Date End Date Edith Fraser MD [address] [place] [address] [address] [place] [address] PCP - General Family Medicine 01/10/22 Layne Manley Jr., MD [address] [facility] [address] Neurology 01/10/22 Land Department Head Relationship Specialty Start Date End Date Edith Fraser MD [address] [address] PCP - General Family Medicine 01/10/22 Layne Manley Jr., MD [address] [place] [address] Neurology 01/10/22 Land Department Head Relationship Specialty Start Date End Date Edith Fraser MD [address] [place] [address] PCP - General Family Medicine 01/10/22 Layne Manley Jr., MD [address] [place] [address] Neurology 01/10/22 Land Department Head Relationship Specialty Start Date End Date Edith Fraser MD [address] [place] [address] PCP - General Family Medicine 01/10/22 Layne Manley Jr., MD [address] [place] [address] Neurology 01/10/22 Land Department Head Relationship Specialty Start Date End Date Edith Fraser MD [address] [place] [address] PCP - General Family Medicine 01/10/22 Layne Manley Jr., MD [address] [place], [place] [address] Neurology 01/10/22 Land Department Head Relationship Specialty Start Date End Date Edith Fraser MD [address] [place] [address] PCP - General Family Medicine 01/10/22 Layne Manley Jr., MD [address] [facility] [address] Neurology 01/10/22 Land Department Head Relationship Specialty Start Date End Date Edith Fraser MD [address] [facility] [address] [place] [address] PCP - General Family Medicine 01/10/22 Layne Manley Jr., MD [address] [place] [address] Neurology 01/10/22 Land Department Head Relationship Specialty Start Date End Date Edith Fraser MD [address] [facility] [address] [place] [address] PCP - General Family Medicine 01/10/22 Layne Manley Jr., MD [address] [place] [address] Neurology 01/10/22 Land Department Head Relationship Specialty Start Date End Date Edith Fraser MD [address] [place] [address] [address] [place] [address] PCP - General Family Medicine 01/10/22 Layne Manley Jr., MD [address] [place] [address] Neurology 01/10/22 Land Department Head Relationship Specialty Start Date End Date Edith Fraser MD [address] [facility] [address] [place] [address] PCP - General Family Medicine 01/10/22 Layne Manley Jr., MD [address] [place] [address] Neurology 01/10/22 Land Department Head Relationship Specialty Start Date End Date Edith Fraser MD [address] [facility] [address] [place] [address] PCP - General Family Medicine 01/10/22 Layne Manley Jr., MD [address] [place] [address] Neurology 01/10/22 Land Department Head Relationship Specialty Start Date End Date Edith Fraser MD [address] [facility] [address] [place] [address] PCP - General Family Medicine 01/10/22 Layne Manley Jr., MD [address] [place] [address] Neurology 01/10/22 Team Status: Active Member Role Status Tyler Abreu MD Primary Care Provider Active Team Status: Inactive Member Role Status Tyler Abreu MD Primary Care Provider Active St art: January 12, 2024 End: January 12, 2024 Tracie Abreu MD Attending Provider Active Start : January 12, 2024 End: January 12, 2024 Tracie Abreu MD Referring Provider Active Start : January 12, 2024 End: January 12, 2024 Team Status: Inactive Member Role Status Tyler Abreu MD Primary Care Provider Active St art: [...] 2024 End: February 29, 2024 Iain López [employer], [employer]-C Attending Provider Active S tart: February 29, 2024 End: February 29, 2024 Tracie Abreu MD Primary Care Provider Active St art: February 29, 2024 End: February 29, 2024 Team Status: Inactive Member Role Status Dates Tracie Abreu MD Primary Care Provider Active St art: May 01, 2024 End: May 01, 2024 Dr. Fabien Leal DPM Attending Provider Active Start: May 01, 2024 End: May 01, 2024 Dr. Fabien Leal DPM Referring Provider Active Start: May 01, 2024 End: May 01, 2024 Land Department Head Relationship Specialty Start Date End Date Eidth Fraser MD [address] [facility] [address] [place] [address] PCP - General Family Medicine 01/10/22 Layne Manley Jr., MD [address] [place] [address] Neurology 01/10/22 Land Department Head Relationship Specialty Start Date End Date Edith Fraser MD [address] [place] [address] PCP - General Family Medicine 01/10/22 Layne Manley Jr., MD [address] [place] [address] Neurology 01/10/22 Land Department Head Relationship Specialty Start Date End Date Edith Fraser MD [address] [id number] PCP - General Family Medicine 01/10/22 Layne Manley Jr., MD [address] [place], [place] [address] Neurology 01/10/22 Land Department Head Relationship Specialty Start Date End Date Tracie Abreu MD [address] [place] [address] [id number] PCP - General Internal Medicine 08/06/24 Layne Manley Jr., MD [address] [place], [place] [address] Neurology 01/10/22 Land Department Head Relationship Specialty Start Date End Date Tracie Abreu MD [address] [place] [address] [address] PCP - General Internal Medicine 08/06/24 Layne Manley Jr., MD [address] [place] [address] Neurology 01/10/22 Land Department Head Relationship Specialty Start Date End Date Tracie Abreu MD [facility] [place] [address] [id number] PCP - General Internal Medicine 08/06/24 Layne Manley Jr., MD [address] [place] [address] Neurology 01/10/22 Team Status: Active Member Role/Relationship Status Dates Tracie Abreu MD Primary Care Provider Active Team Status: Active Member Role/Relationship Status Dates Tracie Abreu MD Primary Care Provider Active St art: October 17, 2024 Dr. Gamal Irwin MD Emergency Provider Active Sta rt: October 17, 2024 Dr. Kenrick Ng DO Admit Provider Active Start: October 17, 2024 Dr. Kenrick Ng DO Attending Provider Active Start: October 17, 2024 Team Status: Active Member Role/Relationship Status Dates Tracie Abreu MD Primary care physician Active Team Status: Inactive Member Role/Relationship Status Dates Tracie Abreu MD Primary care physician Active S tart: October 17, 2024 End: October 29, 2024 Dr. Gamal Irwin MD Emergency Department Physician Active Start: October 17, 2024 End: October 29, 2024 Dr. Kenrick Ng , DO Admitting physician Active Start: October 17, 2024 End: October 29, 2024 Dr. Kenrick Ng , DO Nurse Practitioner Active Start: October 17, 2024 End: October 29, 2024 Dr. Jose R Rg MD Nurse Practitioner Active Start: October End: October 29, 2024 Dr. Rodney Chavez MD Nurse Practitioner Active Start: October 17, 2024 End: October 29, 2024 Dr. Nathalia Garcia , Nurse Practitioner Active S tart: October 17, 2024 End: October 29, 2024 Dr. Juan Palacios MD Nurse Practitioner Active Start: October 17, 2024 End: October 29, 2024 Dr. Javon Baldwin , Attending physician Active Start: October 17, 2024 End: October 29, 2024 Dr. Rosmery Lake MD Nurse Practitioner Active Start: October 17, 2024 End: October 29, 2024 Team Status: Active Member Role/Relationship Status Dates Tracie Abreu MD Primary care physician Active S tart: October 18, 2024 Dr. Gamal Irwin MD Emergency Department Physician Active Start: October 18, 2024 Dr. Kenrick Ng , DO Admitting physician Active Start: October Dr. Kenrick Ng , DO Nurse Practitioner Active Start: October Dr. Jose R Rg MD Nurse Practitioner Active Start: October Dr. Nathalia Garcia , DO Attending physician Active Start: October 18, 2024 Dr. Nathalia Garcia , DO Nurse Practitioner Active S tart: October 18, 2024 Team Status: Active Member Role/Relationship Status Dates Tracie Abreu MD Primary care physician Active S tart: October 18, 2024 Dr. James Sanchez MD Attending physician Active Start: October 18, 2024 Team Status: Active Member Role/Relationship Status Dates Tracie Abreu MD Primary care physician Active S tart: October 19, 2024 Dr. Gamal Irwin MD Emergency Department Physician Active Start: October 19, 2024 Dr. Kenrick Ng , DO Admitting physician Active Start: October 19, 2024 Dr. Kenrick Ng , DO Nurse Practitioner Active Start: October 19, 2024 Dr. Jose R Rg MD Nurse Practitioner Active Start: October Dr. Nathalia Garcia , DO Attending physician Active Start: October 19, 2024 Dr. Nathalia Garcia , DO Nurse Practitioner Active S tart: October 19, 2024 Dr. Rodney Chavez MD Nurse Practitioner Active Start: October 19, 2024 Team Status: Active Member Role/Relationship Status Dates Tracie Abreu MD Primary care physician Active S tart: October 20, 2024 Dr. Gamal Irwin MD Emergency Department Physician Active Start: October 20, 2024 Dr. Kenrick Ng , DO Admitting physician Active Start: October 20, 2024 Dr. Kenrick Ng , DO Nurse Practitioner Active Start: October 20, 2024 Dr. Jose R Rg MD Nurse Practitioner Active Start: October Dr. Nathalia Garcia , Attending physician Active Start: October 20, 2024 Dr. Nathalia Garcia , DO Nurse Practitioner Active S tart: October 20, 2024 Dr. Rodney Chavez MD Nurse Practitioner Active Start: October 20, 2024 Team Status: Active Member Role/Relationship Status Dates Tracie Abreu MD Primary care physician Active S tart: October 21, 2024 Dr. Gamal Irwin MD Emergency Department Physician Active Start: October 21, 2024 Dr. Kenrick Ng , DO Admitting physician Active Start: October 21, 2024 Dr. Kenrick Ng , DO Nurse Practitioner Active Start: October 21, 2024 Dr. Jose R Rg MD Nurse Practitioner Active Start: October Dr. Rodney Chavez MD Nurse Practitioner Active Start: October 21, 2024 Dr. Rosmery Lake MD Attending physician Active Start: October 21, 2024 Dr. Rosmery Lake MD Nurse Practitioner Active Start: October 21, 2024 Dr. Nathalia Garcia , DO Nurse Practitioner Active S tart: October 21, 2024 Dr. Juan Palac[place] MD Nurse Practitioner Active Start: October 21, 2024 Team Status: Active Member Role/Relationship Status Dates Tracie Abreu MD Primary care physician Active S tart: October 21, 2024 Dr. Gamal Irwin MD Emergency Department Physician Active Start: October 21, 2024 Dr. Kenrick Ng DO Admitting physician Active Start: October 21, 2024 Dr. Kenrick Ng , DO Nurse Practitioner Active Start: October 21, 2024 Dr. Jose R Rg MD Nurse Practitioner Active Start: October Dr. Rodney Chavez MD Nurse Practitioner Active Start: October 21, 2024 Dr. Rosmery Lake MD Nurse Practitioner Active Start: October 21, 2024 Dr. Nathalia Garcia , DO Nurse Practitioner Active S tart: October 21, 2024 Dr. Juan Palacios MD Attending physician Active Start: October 21, 2024 Dr. Juan Palacios MD Nurse Practitioner Active Start: October 21, 2024 Team Status: Active Member Role/Relationship Status Dates Tracie Abreu MD Primary care physician Active S tart: October 22, 2024 Dr. Gamal Irwin MD Emergency Department Physician Active Start: October 22, 2024 Dr. Kenrick Ng DO Admitting physician Active Start: October 22, 2024 Dr. Kenrick Ng DO Nurse Practitioner Active Start: October 22, 2024 Dr. Jose R Rg MD Nurse Practitioner Active Start: October Dr. Rodney Chavez MD Nurse Practitioner Active Start: October 22, 2024 Dr. Rosmery Lake MD Nurse Practitioner Active Start: October 22, 2024 Dr. Nathalia Garcia , Nurse Practitioner Active S tart: October 22, 2024 Dr. Juan Palacios MD Nurse Practitioner Active Start: October 22, 2024 Roxanna MCCLAIN PACoriC Attending physician Active Start: October 22, 2024 Team Status: Active Member Role/Relationship Status Dates Tracie Abreu MD Primary care physician Active S tart: October 22, 2024 Dr. Gamal Irwin MD Emergency Department Physician Active Start: October 22, 2024 Dr. Kenrick Ng , DO Admitting physician Active Start: October 22, 2024 Dr. Kenrick Ng , DO Nurse Practitioner Active Start: October 22, 2024 Dr. Jose R Rg MD Nurse Practitioner Active Start: October Dr. Rodney Chavez MD Nurse Practitioner Active Start: October 22, 2024 Dr. Rosmery Lake MD Attending physician Active Start: October 22, 2024 Dr. Rosmery Lake MD Nurse Practitioner Active Start: October 22, 2024 Dr. Nathalia Garcia , Nurse Practitioner Active S tart: October 22, 2024 Dr. Juan Palacios MD Nurse Practitioner Active Start: October 22, 2024 Team Status: Active Member Role/Relationship Status Dates Tracie Abreu MD Primary care physician Active S tart: October 23, 2024 Dr. Gamal Irwin MD Emergency Department Physician Active Start: October 23, 2024 Dr. Kenrick Ng , DO Admitting physician Active Start: October 23, 2024 Dr. Kenrick Ng DO Nurse Practitioner Active Start: October 23, 2024 Dr. Jose R Rg MD Nurse Practitioner Active Start: October Dr. Rodney Chavez MD Nurse Practitioner Active Start: October 23, 2024 Dr. Rosmery Lake MD Attending physician Active Start: October 23, 2024 Dr. Rosmery Lake MD Nurse Practitioner Active Start: October 23, 2024 Dr. Nathalia Garcia , DO Nurse Practitioner Active S tart: October 23, 2024 Dr. Juan Palacios MD Nurse Practitioner Active Start: October 23, 2024 Team Status: Active Member Role/Relationship Status Dates Tracie Abreu MD Primary care physician Active S tart: October 24, 2024 Dr. Gmaal Irwin MD Emergency Department Physician Active Start: October 24, 2024 Dr. Kenrick Ng , DO Admitting physician Active Start: October 24, 2024 Dr. Kenrick Ng , DO Nurse Practitioner Active Start: October 24, 2024 Dr. Jose R Rg MD Nurse Practitioner Active Start: October Dr. Rodney Chavez MD Nurse Practitioner Active Start: October 24, 2024 Dr. Rosmery Lake MD Attending physician Active Start: October 24, 2024 Dr. Rosmery Lake MD Nurse Practitioner Active Start: October 24, 2024 Dr. Nathalia Garcia , DO Nurse Practitioner Active S tart: October 24, 2024 Dr. Juna Palacios MD Nurse Practitioner Active Start: October 24, 2024 Team Status: Active Member Role/Relationship Status Dates Tracie Abreu MD Primary care physician Active S tart: October 24, 2024 Dr. Gamal Irwin MD Emergency Department Physician Active Start: October 24, 2024 Dr. Kenrick Ng , DO Admitting physician Active Start: October 24, 2024 Dr. Kenrick Ng , DO Nurse Practitioner Active Start: October 24, 2024 Dr. Jose R Rg MD Nurse Practitioner Active Start: October Dr. Rodney Chavez MD Nurse Practitioner Active Start: October 24, 2024 Dr. Rosmery Lake MD Nurse Practitioner Active Start: October 24, 2024 Dr. Nathalia Garcia , DO Nurse Practitioner Active S tart: October 24, 2024 Dr. Juan Palacios MD Nurse Practitioner Active Start: October 24, 2024 Dr. Cece Dennis MD Attending physician Active Start: October 24, 2024 Team Status: Active Member Role/Relationship Status Dates rTacie Abreu MD Primary care physician Active S tart: October 25, 2024 Dr. Gamal Irwin MD Emergency Department Physician Active Start: October 25, 2024 Dr. Kenrick Ng , DO Admitting physician Active Start: October 25, 2024 Dr. Kenrick Ng , DO Nurse Practitioner Active Start: October 25, 2024 Dr. Jose R Rg MD Nurse Practitioner Active Start: October Dr. Rodney Chavez MD Nurse Practitioner Active Start: October 25, 2024 Dr. Rosmery Lake MD Nurse Practitioner Active Start: October 25, 2024 Dr. Nathalia Garcia , DO Nurse Practitioner Active S tart: October 25, 2024 Dr. Juan Palacios MD Nurse Practitioner Active Start: October 25, 2024 Dr. Cece Dennis MD Attending physician Active Start: October 25, 2024 Team Status: Active Member Role/Relationship Status Dates Tracie Abreu MD Primary care physician Active S tart: October 25, 2024 Dr. Gamal Irwin MD Emergency Department Physician Active Start: October 25, 2024 Dr. Kenrick Ng , DO Admitting physician Active Start: October 25, 2024 Dr. Kenrick Ng DO Nurse Practitioner Active Start: October 25, 2024 Dr. Jose R Rg MD Nurse Practitioner Active Start: October Dr. Rodney Chavez MD Nurse Practitioner Active Start: October 25, 2024 Dr. Rosmery Lake MD Attending physician Active Start: October 25, 2024 Dr. Rosmery Lake MD Nurse Practitioner Active Start: October 25, 2024 Dr. Nathalia Garcia , DO Nurse Practitioner Active S tart: October 25, 2024 Dr. Juan Palacios MD Nurse Practitioner Active Start: October 25, 2024 Team Status: Active Member Role/Relationship Status Dates Tracie Abreu MD Primary care physician Active S tart: October 26, 2024 Dr. Gamal Irwin MD Emergency Department Physician Active Start: October 26, 2024 Dr. Kenrick Ng , DO Admitting physician Active Start: October 26, 2024 Dr. Kenrick Ng , DO Nurse Practitioner Active Start: October 26, 2024 Dr. Jose R Rg MD Nurse Practitioner Active Start: October Dr. Rodney Chavez MD Nurse Practitioner Active Start: October 26, 2024 Dr. Rosmery Lake MD Nurse Practitioner Active Start: October 26, 2024 Dr. Nathalia Garcia , DO Nurse Practitioner Active S tart: October 26, 2024 Dr. Juan Palacios MD Nurse Practitioner Active Start: October 26, 2024 Dr. Eliot Hand MD Attending physician Active Start: October 26, 2024 Team Status: Active Member Role/Relationship Status Dates Tracie Abreu MD Primary care physician Active S tart: October 26, 2024 Dr. Gamal Irwin MD Emergency Department Physician Active Start: October 26, 2024 Dr. Kenrick Ng , DO Admitting physician Active Start: October 26, 2024 Dr. Kenrick Ng , DO Nurse Practitioner Active Start: October 26, 2024 Dr. Jose R Rg MD Nurse Practitioner Active Start: October Dr. Rodney Chavez MD Nurse Practitioner Active Start: October 26, 2024 Dr. Rosmery Lake MD Attending physician Active Start: October 26, 2024 Dr. Rosmeyr Lake MD Nurse Practitioner Active Start: October 26, 2024 Dr. Nathalia Garcia , DO Nurse Practitioner Active S tart: October 26, 2024 Dr. Juan Palacios MD Nurse Practitioner Active Start: October 26, 2024 Team Status: Active Member Role/Relationship Status Dates Tracie Abreu MD Primary care physician Active S tart: October 27, 2024 Dr. Gamal Irwin MD Emergency Department Physician Active Start: October 27, 2024 Dr. Kenrick Ng , DO Admitting physician Active Start: October 27, 2024 Dr. Kenrick Ng , DO Nurse Practitioner Active Start: October 27, 2024 Dr. Jose R Rg MD Nurse Practitioner Active Start: October Dr. Rodney Chavez MD Nurse Practitioner Active Start: October 27, 2024 Dr. Rosmery Lake MD Nurse Practitioner Active Start: October 27, 2024 Dr. Nathalia Garcia , DO Nurse Practitioner Active S tart: October 27, 2024 Dr. Juan Palacios MD Nurse Practitioner Active Start: October 27, 2024 Dr. Eliot Hand MD Attending physician Active Start: October 27, 2024 Team Status: Active Member Role/Relationship Status Dates Tracie Abreu MD Primary care physician Active S tart: October 27, 2024 Dr. Gamal Irwin MD Emergency Department Physician Active Start: October 27, 2024 Dr. Kenrick Ng , DO Admitting physician Active Start: October 27, 2024 Dr. Kenrick Ng , DO Nurse Practitioner Active Start: October 27, 2024 Dr. Jose R Rg MD Nurse Practitioner Active Start: October Dr. Rodney Chavez MD Nurse Practitioner Active Start: October 27, 2024 Dr. Rosmery Lake MD Attending physician Active Start: October 27, 2024 Dr. Rosmery Lake MD Nurse Practitioner Active Start: October 27, 2024 Dr. Nathalia Garcia , DO Nurse Practitioner Active S tart: October 27, 2024 Dr. Juan Palacios MD Nurse Practitioner Active Start: October 27, 2024 Team Status: Active Member Role/Relationship Status Dates Tracie Abreu MD Primary care physician Active S tart: October 28, 2024 Dr. Gamal Irwin MD Emergency Department Physician Active Start: October 28, 2024 Dr. Kenrick Ng , DO Admitting physician Active Start: October 28, 2024 Dr. Kenrick Ng , DO Nurse Practitioner Active Start: October 28, 2024 Dr. Jose R Rg MD Nurse Practitioner Active Start: October Dr. Rodney Chavez MD Nurse Practitioner Active Start: October 28, 2024 Dr. Nathalia Garcia , DO Nurse Practitioner Active S tart: October 28, 2024 Dr. Juan Palacios MD Nurse Practitioner Active Start: October 28, 2024 Dr. Javon Baldwin , DO Nurse Practitioner Active Start: October 28, 2024 Dr. Rosmery Lake MD Nurse Practitioner Active Start: October 28, 2024 Roxanna MCCLAIN PA-C Attending physician Active Start: October 28, 2024 Team Status: Active Member Role/Relationship Status Dates Tracie Abreu MD Primary care physician Active S tart: October 28, 2024 Dr. Gamal Irwin MD Emergency Department Physician Active Start: October 28, 2024 Dr. Kenrick Ng , DO Admitting physician Active Start: October 28, 2024 Dr. Kenrick Ng , DO Nurse Practitioner Active Start: October 28, 2024 Dr. Jose R Rg MD Nurse Practitioner Active Start: October Dr. Rodney Chavez MD Nurse Practitioner Active Start: October 28, 2024 Dr. Nathalia Garcia , DO Nurse Practitioner Active S tart: October 28, 2024 Dr. Juan Palacios MD Nurse Practitioner Active Start: October 28, 2024 Dr. Javon Baldwin , Attending physician Active Start: October 28, 2024 Dr. Javon Baldwin , DO Nurse Practitioner Active Start: October 28, 2024 Dr. Rosmery Lake MD Nurse Practitioner Active Start: October 28, 2024 Team Status: Active Member Role/Relationship Status Dates Tracie Abreu MD Primary care physician Active S tart: October 29, 2024 Dr. Gamal Irwin MD Emergency Department Physician Active Start: October 29, 2024 Dr. Kenrick Ng , DO Admitting physician Active Start: October 29, 2024 Dr. Kenrick Ng , DO Nurse Practitioner Active Start: October 29, 2024 Dr. Jose R Rg MD Nurse Practitioner Active Start: October Dr. Rodney Chavez MD Nurse Practitioner Active Start: October 29, 2024 Dr. Nahtalia Garcia , DO Nurse Practitioner Active S tart: October 29, 2024 Dr. Juan Palacios MD Nurse Practitioner Active Start: October 29, 2024 Dr. Javon Baldwin , Attending physician Active Start: October 29, 2024 Dr. Javon Baldwin , Nurse Practitioner Active Start: October 29, 2024 Dr. Rosmery Lake MD Nurse Practitioner Active Start: October 29, 2024 Team Status: Active Member Role/Relationship Status Dates Tracie Abreu MD Primary care physician Active S tart: October 29, 2024 Dr. Gamal Irwin MD Emergency Department Physician Active Start: October 29, 2024 Dr. Kenrick Ng , DO Admitting physician Active Start: October 29, 2024 Dr. Kenrick Ng , DO Nurse Practitioner Active Start: October 29, 2024 Dr. Jose R Rg MD Nurse Practitioner Active Start: October Dr. Rodney Chavez MD Nurse Practitioner Active Start: October 29, 2024 Dr. Nathalia Garcia , DO Nurse Practitioner Active S tart: October 29, 2024 Dr. Juan Palacios MD Attending physician Active Start: October 29, 2024 Dr. Juan Palacios MD Nurse Practitioner Active Start: October 29, 2024 Dr. Javon Baldwin , DO Nurse Practitioner Active Start: October 29, 2024 Dr. Rosmery Lake MD Nurse Practitioner Active Start: October 29, 2024 Team Status: Active Member Role/Relationship Status Dates Tracie Abreu MD Primary care physician Active S tart: October 31, 2024 Conrad KOVACS MD Attending physician Active Start: October 31, 2024 Team Status: Active Member Role/Relationship Status Dates Tracie Abreu MD Primary care physician Active S tart: October 21, 2024 Dr. Gamal Irwin MD Emergency Department Physician Active Start: October 21, 2024 Dr. Kenrick Ng DO Admitting physician Active Start: October 21, 2024 Dr. Kenrick Ng , Nurse Practitioner Active Start: October 21, 2024 Dr. Jose R Rg MD Nurse Practitioner Active Start: October Dr. Rodney Chavez MD Nurse Practitioner Active Start: October 21, 2024 Dr. Rosmery Lake MD Referring Provider Active Start: October 21, 2024 Dr. Rosmery Lake MD Nurse Practitioner Active Start: October 21, 2024 Dr. Nathalia Garcia DO Nurse Practitioner Active S tart: October 21, 2024 Dr. Juan Palacios MD Attending physician Active Start: October 21, 2024 Dr. Juan Palacios MD Nurse Practitioner Active Start: October 21, 2024 Team Status: Inactive Member Role/Relationship Status Tyler Abreu MD Primary care physician Active S tart: October 30, 2024 End: October 30, 2024 Bonnie Aguilar [employer], [employer] Attending physician Active Start: October 30, 2024 End: October 30, 2024 Team Status: Active Member Role/Relationship Status Tyler Abreu MD Primary care physician Active S tart: October 31, 2024 Conrad KOVACS MD Attending physician Active Start: October 31, 2024 Team Status: Inactive Member Role/Relationship Status Tyler Abreu MD Primary care physician Active S tart: October 31, 2024 End: October 31, 2024 Bonnie Aguilar [employer], [employer] Attending physician Active Start: October 31, 2024 End: October 31, 2024 Team Status: Active Member Role/Relationship Status Tyler Abreu MD Primary care physician Active S tart: November 06, 2024 Conrad KOVACS MD Attending physician Active Start: November 06, 2024 Team Status: Active Member Role/Relationship Status Tyler Abreu MD Primary care physician Active S tart: November 13, 2024 Conrad KOVACS MD Attending physician Active Start: November 13, 2024 Team Status: Active Member Role/Relationship Status Tyler Abreu MD Primary care physician Active S tart: November 20, 2024 Conrad KOVACS MD Attending physician Active Start: November 20, 2024 Team Status: Active Member Role/Relationship Status Tyler Abreu MD Primary care physician Active S tart: November 27, 2024 Conrad KOVACS MD Attending physician Active Start: November 27, 2024 FOR RECORDS PERTAINING TO PATIENTS WHO ARE [...] BE BASED ON THE PRIMARY CLINICAL RECORDS. [employer] provides no warranty or guarantee of the accuracy or completeness of information in this document.
[2024-12-25 08:56] LABS: Hematocrit 43.6 % (40-54); Hemoglobin 13.3 g/dL (13.0-16.5); Immature Granulocytes Count 0.020 X10^3/uL (0.0-0.0); Mean Corp Hgb Conc 30.5 g/dL (32-36); Mean Corpuscular Volume 93.6 fL (80-94); Mean Platelet Vol. 12.0 fl (6.2-12.0); NRBC Flagged by Analyzer 0 % (0-5); Platelet Count 291 K/mm3 (150-450); RBC Distribution Width CV 14.4 % (11.6-14.6); RBC Distribution Width SD 49.1 fl (35.1-43.9); Red Blood Count 4.66 M/mm3 (4.6-6.2); White Blood Count 7.8 K/mm3 (4.4-11.0)
[2024-12-25 09:15] LABS: Anion Gap 10 (5-15); BUN 21 mg/dL (4-19); BUN/Creat Ratio 16.1 RATIO (10-20); Calcium,Total 9.2 mg/dL (7.6-11.0); Carbon Dioxide 26.3 mmol/L (21.0-32.0); Chloride 103 mmol/L (98-108); Glucose 118 mg/dL (70-99); Potassium 4.2 mmol/L (3.3-5.1)
== END ==
LOC: OLS.WHLTSB 05:00
PROVIDERS: PCP Family Medicine; Visit Provider Internal Medicine
DX: E11.22 Type 2 diabetes mellitus with diabetic chronic kidney disease (principal); N18.9 Chronic kidney disease, unspecified
CPT/HCPCS: 36415; 80048; 85025

== ENCOUNTER → 2025-01-22 05:00 | Outpatient (REF) | payer MEDICARE, OTHER, SELFPAY ==
--- OUTSIDE RECORDS SUMMARY | 2025-01-22 03:58 | XMS RPT_ITS | CCD ---
Author Organization [facility] Care Team Providers Care Splitting Machine Tender Name Role Phone Unavailable Primary Care Provider Unavailabby Manley Jr., MD, William J Unavailable Edith Fraser MD Primary Care Provider Edith Fraser MD Primary Care Provider DO Madhavi Chaudhry Primary Care Provider Dr. Javon Vazquez Attending Provider MONTEZ Turner Referring Provider [phone] EDITH FRASER Primary Care Unavailable CLARENCE COLIN [...] Referring Provider Madhavi Chaudhry DO Referring Provider [facility] BISQUE CLEANER-Iain Rubio Attending Provider Elvis DOW, Dr. Conn [...] Unavailable Tracie Abreu MD Primary Care Provider [phone] Dc COTTON, Dr. Yeung Emergency Provider de [facility], Dr. Choudhary Admit Provider Unavail able de [facility], Dr. Choudhary Attending Provider Carmenv ayana Abreu MD, [facility] Primary Care Physician Dc COTTON, Dr. Yeung Emergency Department Physician de [place] , Dr. Choudhary Admitting Physician Carmen vailable de [facility], Dr. Choudhary Nurse Practitioner Carmenv ayana Rg MD, Dr. Jose R Morgan Nurse Practitioner [phone] Kathy COTTON, Dr. Stevens Nurse Practitioner Jose LLOYD, Dr. Sloan Nurse Practitioner Philip COTTON, Dr. Juan Amaya Nurse Practitioner Denny LLOYD, Dr. Alejandro Attending Physician Jaya COTTON, Dr. Rosmery Hernandez Nurse Practitioner Jose LLOYD, Dr. Sloan Attending Physician Daniel COTTON, Dr. Ramirez Attending Physician Jaya COTTON, Dr. Rosmery Hernandez Attending Physician [phone] Philip COTTON, Dr. Juan Amaya Attending Physician [...] Care Unavailable Joel, Chalon Referring Unavailable Lauren BISQUE CLEANER, Bonnie Attending Unavailable Joel, Chalon Primary Care Unavailable Cece Dennis Attending Unavailable Tickton BISQUE CLEANER, Bonnie Attending Unavailable Joel, Chalon Primary Care Unavailable Joel, Chalon Primary Care Unavailable James Sanchez Attending Unavailable FALLON STEINER Attending Unavailable FALLON STEINER Referring Unavailable Joel, Chalon Primary Care Unavailable Joel, Chalon Primary Care Unavailable Oleghe Conrad KOVACS Attending UnavailRoxanna Arauz Attending Unavailable Joel, Chalon Primary Care Unavailable Madhavi Chaudhry Referring Unavailable Iain López NP Attending Unavailable Lauren BISQUE CLEANERBonnie Attending Unavailable Joel, Chalon Primary Care Unavailable Koram, Rosmery Mary Referring Unavailable Joel, Chalon Primary Care [...] 15, 2021 12:00am November 09, 2023 1:42pm [facility] Start: 04-08-2021 End: 07-17-2023 take 1 tablet [...] times daily as needed for congestion Ipratropium Frankenmuth 21 mcg (0.03 %) spray,non-aerosol Active 2 NMA INTRANASAL THREE TIMES A DAY as needed for nasal congestion November 09, 2023 1:44pm 2 sprays each nostril twice a day as need for allergies. Start: 12-05-2022 End: 11-09-2023 Start: 12-05-2022 End: 11-09-2023 take 2 spray(s) nasal route twice daily Ipratropium Frankenmuth 21 mcg (0.03 %) spray,non-aerosol Discontinued 2 NMA INTRANASAL TWICE A DAY 30 0 December 05, 2022 12:00am November 09, 2023 1:45pm 2 sprays each nostril twice a day as need for allergies. 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 Other nervous system disorders (8 [...] Visit Reporton 12-13 Surgery Visit Report Normal [facility] Absolute lymphocyte countOrd ered By: Conrad Burnett on 11-27-2024 Lymphocytes Auto (Unsp spec) [#/Vol] 1.62 10*3/uL 0.83-4.51 [facility] Anion gap in Serum or Plasma Ordered By: Conrad Burnett on 11-27-2024 Anion gap [Moles/Vol] 10 mmol/L 5-15 [facility] Automated lymphocyte count a s percentage of total leukocytesOrdered By: Conrad Burnett on 11-27-2024 Lymphocytes/100 WBC Auto (Unsp spec) 20.0 % - [facility] BUN/creatinine ratioOrdered By: Conrad Burnett on 11-27-2024 Urea nitrogen/Creatinine [Mass ratio] 9.1 mg/mg Low 10- [facility] Basophil percentageOrdered B y: Conrad Burnett on 11-27-2024 Basophils/100 WBC (Bld) 1.6 % High 0-1 [facility] Bilirubin directOrdered By: Conrad Burnett on 11-27-2024 Bilirubin.direct [Mass/Vol] 0.17 mg/dL 0.00-0.30 [facility] Bilirubin, totalOrdered By: Conrad Burnett on 11-27-2024 Bilirubin [Mass/Vol] 0.47 mg/dL 0.00-1.30 [facility] Carbon dioxide, total [Moles /volume] in Central venous bloodOrdered By: Conrad Burnett on 11-27-2024 CO2 [Moles/Vol] 26.8 mmol/L 21.0-32.0 [facility] Chloride assayOrdered By: Godwin Burnett on 11-27-2024 Chloride [Moles/Vol] 103 mmol/L 98-108 [facility] Eosinophil percentageOrdered By: Conrad Burnett on 11-27-2024 Eosinophils/100 WBC (Bld) 3.1 % 0-5 [facility] Erythrocyte distribution wid th ratioOrdered By: Conrad Burnett on 11-27-2024 Erythrocyte distribution width (RBC) [Ratio] 15.0 % High 11.6-14.6 [facility] Erythrocyte distribution wid th standard deviationOrdered By: Conrad Burnett on 11-27-2024 Erythrocyte distribution width (RBC) [Ratio] 49.9 fl High 35.1-43.9 [facility] Glomerular filtration rate ( GFR) estimation/1.73 sq m using serum, plasma, or whole bOrdered By: Conrad Burnett on 11-27-2024 GFR/1.73 sq M.predicted among non-blacks MDRD (S/P/Bld) [Vol rate/Area] 43 mL/min/{1.73_m2} Low >[address] [facility] Hematocrit Auto (Bld) [Volum e fraction]Ordered By: Normachicagodavid Burnett on 11-27-2024 Hematocrit (Bld) [Volume fraction] 37.9 % Low 40-54 [facility] Hemoglobin measurementOrdere d By: Conrad Burnett on 11-27-2024 Hemoglobin (Bld) [Mass/Vol] 11.5 g/dL Low 13.0-16.5 [facility] Immature granulocytes/100 WB C Auto (Bld)Ordered By: Conrad Burnett on 11-27-2024 Immature granulocytes/100 WBC (Bld) 0.200 % 0.0-0.9 [facility] MCV (mean corpuscular volume ) determinationOrdered By: Conrad Burnett on 11-27-2024 MCV (RBC) [Entitic vol] 97.4 fL High 80-94 [facility] Mean corpuscular hemoglobin (MCH) determinationOrdered By: Conrad Burnett on 11-27-2024 MCH (RBC) [Entitic mass] 29.6 pg 27.0-32.0 [facility] Monocyte percentageOrdered B y: Conrad Burnett on 11-27-2024 Monocytes/100 WBC (Bld) 11.6 % High 0-10 [facility] Neutrophil percentageOrdered By: Conrad Burnett on 11-27-2024 Neutrophils/100 WBC (Bld) 63.5 % 47-70 [facility] No Panel InformationOrdered By: Conrad Burnett on 11-27-2024 23 U/L <38 [facility] Platelet countOrdered By: Godwin Burnett on 11-27-2024 Platelets (Bld) [#/Vol] 290 10*3/uL 150-450 [facility] Potassium measurement (mass/ volume)Ordered By: Conrad Burnett on 11-27-2024 Potassium (Unsp spec) [Mass/Vol] 4.6 mmol/L 3.3-5.1 [facility] RBC Auto (Bld) [#/Vol]Ordere d By: Conrad Burnett on 11-27-2024 RBC (Bld) [#/Vol] 3.89 10*6/uL Low 4.6-6.2 [facility] Serum creatinine measurement (mass/volume)Ordered By: Conrad Burnett on 11-27-2024 Creatinine [Mass/Vol] 1.67 mg/dL High 0.70-1.20 [facility] Serum globulin measurementOr dered By: Conrad Burnett on 11-27-2024 Globulin (S) [Mass/Vol] 3.3 g/dL 2.2-4.2 [facility] Serum glucose measurement (m ass/volume)Ordered By: Conrad Burnett on 11-27-2024 Glucose [Mass/Vol] 131 mg/dL High 70-99 [facility] Serum or plasma alanine gandhi otransferase (ALT) measurementOrdered By: Conrad Burnett on 11-27-2024 ALT [Catalytic activity/Vol] 7 U/L <47 [facility] Serum or plasma albumin makenzie urement (mass/volume)Ordered By: Conrad Burnett on 11-27-2024 Albumin [Mass/Vol] 4.0 g/dL 3.4-4.8 [facility] Serum or plasma alkaline manju sphatase measurementOrdered By: Conrad Burnett 11-27-2024 ALP [Catalytic activity/Vol] 86 U/L 40-129 [facility] Serum or plasma calcium makenzie urement (mass/volume)Ordered By: Conrad Burnett on 11-27-2024 Calcium [Mass/Vol] 9.3 mg/dL 7.6-11.0 [facility] Serum or plasma urea nitroge n measurement (mass/volume)Ordered By: Conrad Burnett on 11-27-2024 Urea nitrogen [Mass/Vol] 15 mg/dL 4-19 [facility] Sodium levelOrdered By: Norma Burnett on 11-27-2024 Sodium [Moles/Vol] 140 mmol/L 133-145 [facility] Total proteinOrdered By: Malick Burnett on 11-27-2024 Protein [Mass/Vol] 7.2 g/dL 5.9-8.4 [facility] White blood cell (WBC) count Ordered By: Conrad Burnett on 11-27-2024 WBC (Bld) [#/Vol] 8.1 10*3/uL 4.4-11.0 [facility] Absolute lymphocyte countOrd ered By: Conrad Burnett on 11-20-2024 Lymphocytes Auto (Unsp spec) [#/Vol] 1.84 10*3/uL 0.83-4.51 [facility] Anion gap in Serum or Plasma Ordered By: Conrad Burnett on 11-20-2024 Anion gap [Moles/Vol] 13 mmol/L 5-15 [facility] Automated lymphocyte count a s percentage of total leukocytesOrdered By: Conrad Burnett on 11-20-2024 Lymphocytes/100 WBC Auto (Unsp spec) 20.9 % 19- [facility] BUN/creatinine ratioOrdered By: Conrad Burnett on 11-20-2024 Urea nitrogen/Creatinine [Mass ratio] 7.8 mg/mg Low 10- [facility] Basophil percentageOrdered B y: Conrad Burnett on 11-20-2024 Basophils/100 WBC (Bld) 1.4 % High 0-1 [facility] Carbon dioxide, total [Moles /volume] in Central venous bloodOrdered By: Conrad Burnett on 11-20-2024 CO2 [Moles/Vol] 26.4 mmol/L 21.0-32.0 [facility] Chloride assayOrdered By: Godwin Burnett on 11-20-2024 Chloride [Moles/Vol] 102 mmol/L 98-108 [facility] Eosinophil percentageOrdered By: Conrad Burnett on 11-20-2024 Eosinophils/100 WBC (Bld) 3.5 % 0-5 [facility] Erythrocyte distribution wid th ratioOrdered By: Conrad Burnett on 11-20-2024 Erythrocyte distribution width (RBC) [Ratio] 14.8 % High 11.6-14.6 [facility] Erythrocyte distribution wid th standard deviationOrdered By: Conrad Burnett on 11-20-2024 Erythrocyte distribution width (RBC) [Ratio] 52.8 fl High 35.1-43.9 [facility] Glomerular filtration rate ( GFR) estimation/1.73 sq m using serum, plasma, or whole bOrdered By: Conrad Burnett on 11-20-2024 GFR/1.73 sq M.predicted among non-blacks MDRD (S/P/Bld) [Vol rate/Area] 35 mL/min/{1.73_m2} Low >[address] [facility] Hematocrit Auto (Bld) [Volum e fraction]Ordered By: Conrad Burnett on 11-20-2024 Hematocrit (Bld) [Volume fraction] 36.7 % Low 40-54 [facility] Hemoglobin measurementOrdere d By: Conrad Burnett on 11-20-2024 Hemoglobin (Bld) [Mass/Vol] 11.3 g/dL Low 13.0-16.5 [facility] Immature granulocytes/100 WB C Auto (Bld)Ordered By: Conrad Burnett on 11-20-2024 Immature granulocytes/100 WBC (Bld) 0.300 % 0.0-0.9 [facility] MCV (mean corpuscular volume ) determinationOrdered By: Conrad Burnett on 11-20-2024 MCV (RBC) [Entitic vol] 96.6 fL High 80-94 [facility] Mean corpuscular hemoglobin (MCH) determinationOrdered By: Conrad Burnett 11-20-2024 MCH (RBC) [Entitic mass] 29.7 pg 27.0-32.0 [facility] Monocyte percentageOrdered B y: Conrad Burnett on 11-20-2024 Monocytes/100 WBC (Bld) 9.8 % 0-10 [facility] Neutrophil percentageOrdered By: Conrad Burnett on 11-20-2024 Neutrophils/100 WBC (Bld) 64.1 % 47-70 [facility] Platelet countOrdered By: Godwin Burnett on 11-20-2024 Platelets (Bld) [#/Vol] 227 10*3/uL 150-450 [facility] Potassium measurement (mass/ volume)Ordered By: Conrad Burnett on 11-20-2024 Potassium (Unsp spec) [Mass/Vol] 3.5 mmol/L 3.3-5.1 [facility] RBC Auto (Bld) [#/Vol]Ordere d By: Conrad Burnett on 11-20-2024 RBC (Bld) [#/Vol] 3.80 10*6/uL Low 4.6-6.2 [facility] Serum creatinine measurement (mass/volume)Ordered By: Conrad Burnett on 11-20-2024 Creatinine [Mass/Vol] 1.98 mg/dL High 0.70-1.20 [facility] Serum glucose measurement (m ass/volume)Ordered By: Conrad Burnett on 11-20-2024 Glucose [Mass/Vol] 178 mg/dL High 70-99 [facility] Serum or plasma calcium makenzie urement (mass/volume)Ordered By: Conrad Burnett on 11-20-2024 Calcium [Mass/Vol] 9.3 mg/dL 7.6-11.0 [facility] Serum or plasma urea nitroge n measurement (mass/volume)Ordered By: Conrad Burnett on 11-20-2024 Urea nitrogen [Mass/Vol] 15 mg/dL 4-19 [facility] Sodium levelOrdered By: Norma Burnett on 11-20-2024 Sodium [Moles/Vol] 141 mmol/L 133-145 [facility] White blood cell (WBC) count Ordered By: Conrad Burnett on 11-20-2024 WBC (Bld) [#/Vol] 8.8 10*3/uL 4.4-11.0 [facility] CBC W/Diff, Automatedon 11-06 PATH REV Reviewed Normal [facility] Comment on above: Order Comment: RESUL T(S) PREVIOUSLY REPORTED ON MANUAL REQUISITION DURINGDOWNTIME. Result Comment: SEE REPORT IN PATIENT'S EMR AMENDED REPORT 11/15/24 1127 PATH REV previously reported as: June Performed By: #### L 100.0100, L500.2500 ####[facility] [address] [place], [address] Absolute lymphocyte countOrd ered By: Conrad Burnett on 11-13-2024 Lymphocytes Auto (Unsp spec) [#/Vol] 2.32 10*3/uL 0.83-4.51 [facility] Anion gap in Serum or Plasma Ordered By: Conrad Burnett on 11-13-2024 Anion gap [Moles/Vol] 13 mmol/L 5-15 [facility] Automated lymphocyte count a s percentage of total leukocytesOrdered By: Conrad Burnett on 11-13-2024 Lymphocytes/100 WBC Auto (Unsp spec) 23.8 % 19-41 [facility] BUN/creatinine ratioOrdered By: Conrad Burnett on 11-13-2024 Urea nitrogen/Creatinine [Mass ratio] 6.7 mg/mg Low 10-20 [facility] Basophil percentageOrdered B y: Conrad Burnett on 11-13-2024 Basophils/100 WBC (Bld) 2.0 % High 0-1 [facility] Carbon dioxide, total [Moles /volume] in Central venous bloodOrdered By: Conrad Burnett on 11-13-2024 CO2 [Moles/Vol] 24.3 mmol/L 21.0-32.0 [facility] Chloride assayOrdered By: Godwin Burnett on 11-13-2024 Chloride [Moles/Vol] 104 mmol/L 98-108 [facility] Eosinophil percentageOrdered By: Conrad Burnett on 11-13-2024 Eosinophils/100 WBC (Bld) 8.4 % High 0-5 [facility] Erythrocyte distribution wid th ratioOrdered By: Conrad Burnett on 11-13-2024 Erythrocyte distribution width (RBC) [Ratio] 14.9 % High 11.6-14.6 [facility] Erythrocyte distribution wid th standard deviationOrdered By: Conrad Burnett on 11-13-2024 Erythrocyte distribution width (RBC) [Ratio] 49.1 fl High 35.1-43.9 [facility] Glomerular filtration rate ( GFR) estimation/1.73 sq m using serum, plasma, or whole bOrdered By: Normachicagodavid Burnett on 11-13-2024 GFR/1.73 sq M.predicted among non-blacks MDRD (S/P/Bld) [Vol rate/Area] 26 mL/min/{1.73_m2} Low >[address] [facility] Hematocrit Auto (Bld) [Volum e fraction]Ordered By: Conrad Burnett on 11-13-2024 Hematocrit (Bld) [Volume fraction] 30.5 % Low 40-54 [facility] Hemoglobin measurementOrdere d By: Conrad Burnett on 11-13-2024 Hemoglobin (Bld) [Mass/Vol] 9.6 g/dL Low 13.0-16.5 [facility] Immature granulocytes/100 WB C Auto (Bld)Ordered By: Conrad Burnett on 11-13-2024 Immature granulocytes/100 WBC (Bld) 1.400 % High 0.0-0.9 [facility] MCV (mean corpuscular volume ) determinationOrdered By: Conrad Burnett on 11-13-2024 MCV (RBC) [Entitic vol] 96.8 fL High 80-94 [facility] Mean corpuscular hemoglobin (MCH) determinationOrdered By: Normachicagodavid Burnett on 11-13-2024 MCH (RBC) [Entitic mass] 30.5 pg 27.0-32.0 [facility] Monocyte percentageOrdered B y: Conrad Burnett on 11-13-2024 Monocytes/100 WBC (Bld) 11.6 % High 0-10 [facility] Neutrophil percentageOrdered By: Conrad Burnett on 11-13-2024 Neutrophils/100 WBC (Bld) 52.8 % 47-70 [facility] Platelet countOrdered By: Godwin jackieyesi Burnett on 11-13-2024 Platelets (Bld) [#/Vol] 288 10*3/uL 150-450 [facility] Potassium measurement (mass/ volume)Ordered By: Conrad Burnett on 11-13-2024 Potassium (Unsp spec) [Mass/Vol] 3.7 mmol/L 3.3-5.1 [facility] RBC Auto (Bld) [#/Vol]Ordere d By: Conrad Burnett on 11-13-2024 RBC (Bld) [#/Vol] 3.15 10*6/uL Low 4.6-6.2 [facility] Serum creatinine measurement (mass/volume)Ordered By: Conrad Burnett on 11-13-2024 Creatinine [Mass/Vol] 2.55 mg/dL High 0.70-1.20 [facility] Serum glucose measurement (m ass/volume)Ordered By: Conrad Burnett on 11-13-2024 Glucose [Mass/Vol] 132 mg/dL High 70-99 [facility] Serum or plasma calcium makenzie urement (mass/volume)Ordered By: Conrad Burnett on 11-13-2024 Calcium [Mass/Vol] 9.2 mg/dL 7.6-11.0 [facility] Serum or plasma urea nitroge n measurement (mass/volume)Ordered By: Conrad Burnett on 11-13-2024 Urea nitrogen [Mass/Vol] 17 mg/dL 4-19 [facility] Sodium levelOrdered By: Norma yesi Hortencia on 11-13-2024 Sodium [Moles/Vol] 141 mmol/L 133-145 [facility] White blood cell (WBC) count Ordered By: Conrad Burnett on 11-13-2024 WBC (Bld) [#/Vol] 9.7 10*3/uL 4.4-11.0 [facility] Absolute lymphocyte countOrd ered By: Conrad Burnett on 11-06-2024 Lymphocytes Auto (Unsp spec) [#/Vol] 2.16 10*3/uL 0.83-4.51 [facility] Anion gap in Serum or Plasma Ordered By: Conrad Burnett on 11-06-2024 Anion gap [Moles/Vol] 15 mmol/L 5-15 [facility] Automated lymphocyte count a s percentage of total leukocytesOrdered By: Conrad Burnett on 11-06-2024 Lymphocytes/100 WBC Auto (Unsp spec) 22.0 % 19-41 [facility] BUN/creatinine ratioOrdered By: Conrad Burnett on 11-06-2024 Urea nitrogen/Creatinine [Mass ratio] 7.6 mg/mg Low 10-20 [facility] Basophil percentageOrdered B y: Conrad Burnett on 11-06-2024 Basophils/100 WBC (Bld) 1.8 % High 0-1 [facility] Carbon dioxide, total [Moles /volume] in Central venous bloodOrdered By: Conrad Burnett on 11-06-2024 CO2 [Moles/Vol] 23.5 mmol/L 21.0-32.0 [facility] Chloride assayOrdered By: Godwin Burnett on 11-06-2024 Chloride [Moles/Vol] 104 mmol/L 98-108 [facility] Eosinophil percentageOrdered By: Conrad Burnett on 11-06-2024 Eosinophils/100 WBC (Bld) 5.2 % High 0-5 [facility] Erythrocyte distribution wid th ratioOrdered By: Conrad Burnett on 11-06-2024 Erythrocyte distribution width (RBC) [Ratio] 13.9 % 11.6-14.6 [facility] Erythrocyte distribution wid th standard deviationOrdered By: Conrad Burnett on 11-06-2024 Erythrocyte distribution width (RBC) [Ratio] 48.0 fl High 35.1-43.9 [facility] Glomerular filtration rate ( GFR) estimation/1.73 sq m using serum, plasma, or whole bOrdered By: Conrad Burnett on 11-06-2024 GFR/1.73 sq M.predicted among non-blacks MDRD (S/P/Bld) [Vol rate/Area] 18 mL/min/{1.73_m2} Low >[address] [facility] Hematocrit Auto (Bld) [Volum e fraction]Ordered By: Conrad Burnett on 11-06-2024 Hematocrit (Bld) [Volume fraction] 29.4 % Low 40-54 [facility] Hemoglobin measurementOrdere d By: Normastevedavid Cardozasahrakofi on 11-06-2024 Hemoglobin (Bld) [Mass/Vol] 9.4 g/dL Low 13.0-16.5 [facility] Immature granulocytes/100 WB C Auto (Bld)Ordered By: Conrad Burnett on 11-06-2024 Immature granulocytes/100 WBC (Bld) 0.300 % 0.0-0.9 [facility] MCV (mean corpuscular volume ) determinationOrdered By: Conrad Burnett on 11-06-2024 MCV (RBC) [Entitic vol] 95.1 fL High 80-94 [facility] Mean corpuscular hemoglobin (MCH) determinationOrdered By: Conrad Burnett on 11-06-2024 MCH (RBC) [Entitic mass] 30.4 pg 27.0-32.0 [facility] Monocyte percentageOrdered B y: Conrad Burnett on 11-06-2024 Monocytes/100 WBC (Bld) 9.6 % 0-10 [facility] Neutrophil percentageOrdered By: Conrad Burnett on 11-06-2024 Neutrophils/100 WBC (Bld) 61.1 % 47-70 [facility] Platelet countOrdered By: Godwin kia Sonysahrakofi on 11-06-2024 Platelets (Bld) [#/Vol] 451 10*3/uL High 150-450 [facility] Potassium measurement (mass/ volume)Ordered By: Godwinkia Cardozasahrakofi on 11-06-2024 Potassium (Unsp spec) [Mass/Vol] 4.0 mmol/L 3.3-5.1 [facility] RBC Auto (Bld) [#/Vol]Ordere d By: Conrad Benoitkofi on 11-06-2024 RBC (Bld) [#/Vol] 3.09 10*6/uL Low 4.6-6.2 [facility] Serum creatinine measurement (mass/volume)Ordered By: Conrad Burnett on 11-06-2024 Creatinine [Mass/Vol] 3.49 mg/dL High 0.70-1.20 [facility] Serum glucose measurement (m ass/volume)Ordered By: Conrad Burnett on 11-06-2024 Glucose [Mass/Vol] 132 mg/dL High 70-99 [facility] Serum or plasma calcium makenzie urement (mass/volume)Ordered By: Conrad Burnett on 11-06-2024 Calcium [Mass/Vol] 9.1 mg/dL 7.6-11.0 [facility] Serum or plasma urea nitroge n measurement (mass/volume)Ordered By: Conrad Burnett on 11-06-2024 Urea nitrogen [Mass/Vol] 27 mg/dL High 4-19 [facility] Sodium levelOrdered By: Norma yesi Hortencia on 11-06-2024 Sodium [Moles/Vol] 143 mmol/L 133-145 [facility] White blood cell (WBC) count Ordered By: Conrad Burnett on 11-06-2024 WBC (Bld) [#/Vol] 9.8 10*3/uL 4.4-11.0 [facility] Absolute lymphocyte countOrd ered By: Conrad Burnett on 10-31-2024 Lymphocytes Auto (Unsp spec) [#/Vol] 1.73 10*3/uL 0.83-4.51 [facility] Anion gap in Serum or Plasma Ordered By: Conrad Burnett on 10-31-2024 Anion gap [Moles/Vol] 24 mmol/L High 5-15 [facility] Automated lymphocyte count a s percentage of total leukocytesOrdered By: Conrad Burnett on 10-31-2024 Lymphocytes/100 WBC Auto (Unsp spec) 13.1 % Low 19-41 [facility] BUN/creatinine ratioOrdered By: Conrad Burnett on 10-31-2024 Urea nitrogen/Creatinine [Mass ratio] 4.7 mg/mg Low 10- [facility] Basic Metabolic Profile (BMP )on 10-31-2024 BUN Normal 4-19 [facility] Comment on above: Result Comment: Canc elled via OM: Order cancelled - Patient discharged Performed By: #### L 500.2500, L100.0100 ####[facility] [address] [place], [address] BUN/CRE Normal 10- [facility] Comment on above: Result Comment: Canc elled via OM: Order cancelled - Patient discharged Performed By: #### L 500.2500, L100.0100 ####[facility] [address] [place], [address] Calcium Normal 7.6-11.0 [facility] Comment on above: Result Comment: Canc elled via OM: Order cancelled - Patient discharged Performed By: #### L 500.2500, L100.0100 ####[facility] [address] [place], [address] CL Normal 98-108 [facility] Comment on above: Result Comment: Canc elled via OM: Order cancelled - Patient discharged Performed By: #### L 500.2500, L100.0100 ####[facility] [address] [place], [address] CO2 Normal 21.0-32.0 [facility] Comment on above: Result Comment: Canc elled via OM: Order cancelled - Patient discharged Performed By: #### L 500.2500, L100.0100 ####[facility] [address] [place], [address] CREAT,SERUM Normal 0.70-1.20 [facility] Comment on above: Result Comment: Canc elled via OM: Order cancelled - Patient discharged Performed By: #### L 500.2500, L100.0100 ####[facility] [address] [place], [address] eGFR Normal >60 [facility] Comment on above: Result Comment: Canc elled via OM: Order cancelled - Patient discharged Performed By: #### L 500.2500, L100.0100 ####[facility] [address] [place], [address] GAP Normal 5-15 [facility] Comment on above: Result Comment: Canc elled via OM: Order cancelled - Patient discharged Performed By: #### L 500.2500, L100.0100 ####[facility] [address] [place], [address] GLU Normal 70-99 [facility] Comment on above: Result Comment: Canc elled via OM: Order cancelled - Patient discharged Performed By: #### L 500.2500, L100.0100 ####[facility] [address] [place], [address] Potassium Normal 3.3-5.1 [facility] Comment on above: Result Comment: Canc elled via OM: Order cancelled - Patient discharged Performed By: #### L 500.2500, L100.0100 ####[facility] [address] [place], [address] Basic Metabolic Profile (BMP) Normal 133-145 [facility] Comment on above: Result Comment: Canc elled via OM: Order cancelled - Patient discharged Performed By: #### L 500.2500, L100.0100 ####[facility] [address] [place], [address] Basophil percentageOrdered B y: Conrad Burnett on 10-31-2024 Basophils/100 WBC (Bld) 1.1 % High 0-1 [facility] Bilirubin, totalOrdered By: Conrad Burnett on 10-31-2024 Bilirubin [Mass/Vol] 0.25 mg/dL 0.00-1.30 [facility] CBC W/Diff, Automatedon 09-2 Absolute Neut Normal 2.0-7.7 [facility] Comment on above: Result Comment: Canc elled via OM: Order cancelled - Patient discharged Performed By: #### L 500.2500, L100.0100 ####[facility] [address] [place], [address] HCT Normal 40-54 [facility] Comment on above: Result Comment: Canc elled via OM: Order cancelled - Patient discharged Performed By: #### L 500.2500, L100.0100 ####[facility] [address] [place], [address] HGB Normal 13.0-16.5 [facility] Comment on above: Result Comment: Canc elled via OM: Order cancelled - Patient discharged Performed By: #### L 500.2500, L100.0100 ####[facility] [address] [place], [address] MCH Normal 27.0-32.0 [facility] Comment on above: Result Comment: Canc elled via OM: Order cancelled - Patient discharged Performed By: #### L 500.2500, L100.0100 ####[facility] [address] [place], [address] MCHC Normal 32-36 [facility] Comment on above: Result Comment: Canc elled via OM: Order cancelled - Patient discharged Performed By: #### L 500.2500, L100.0100 ####[facility] [address] [place], [address] MCV Normal 80-94 [facility] Comment on above: Result Comment: Canc elled via OM: Order cancelled - Patient discharged Performed By: #### L 500.2500, L100.0100 ####[facility] [address] [place], [address] NEUT% Normal 47-70 [facility] Comment on above: Result Comment: Canc elled via OM: Order cancelled - Patient discharged Performed By: #### L 500.2500, L100.0100 ####[facility] [address] [place], [address] PLT Normal 150-450 [facility] Comment on above: Result Comment: Canc elled via OM: Order cancelled - Patient discharged Performed By: #### L 500.2500, L100.0100 ####[facility] [address] [place], [address] RBC Normal 4.6-6.2 [facility] Comment on above: Result Comment: Canc elled via OM: Order cancelled - Patient discharged Performed By: #### L 500.2500, L100.0100 ####[facility] [address] [place], [address] RDW CV Normal 11.6-14.6 [facility] Comment on above: Result Comment: Canc elled via OM: Order cancelled - Patient discharged Performed By: #### L 500.2500, L100.0100 ####[facility] [address] [place], [address] RDW SD Normal 35.1-43.9 [facility] Comment on above: Result Comment: Canc elled via OM: Order cancelled - Patient discharged Performed By: #### L 500.2500, L100.0100 ####[facility] [address] [place], [address] WBC Normal 4.4-11.0 [facility] Comment on above: Result Comment: Canc elled via OM: Order cancelled - Patient discharged Performed By: #### L 500.2500, L100.0100 ####[facility] [address] [place], [address] Carbon dioxide, total [Moles /volume] in Central venous bloodOrdered By: Conrad Burnett on 10-31-2024 CO2 [Moles/Vol] 11.4 mmol/L Low 21.0-32.0 [facility] Chloride assayOrdered By: Godwin Burnett on 10-31-2024 Chloride [Moles/Vol] 107 mmol/L 98-108 [facility] Eosinophil percentageOrdered By: Conrad Burnett on 10-31-2024 Eosinophils/100 WBC (Bld) 3.5 % 0-5 [facility] Erythrocyte distribution wid th ratioOrdered By: Conrad Burnett on 10-31-2024 Erythrocyte distribution width (RBC) [Ratio] 14.3 % 11.6-14.6 [facility] Erythrocyte distribution wid th standard deviationOrdered By: Conrad Burnett on 10-31-2024 Erythrocyte distribution width (RBC) [Ratio] 48.7 fl High 35.1-43.9 [facility] Glomerular filtration rate ( GFR) estimation/1.73 sq m using serum, plasma, or whole bOrdered By: Conrad Burnett on 10-31-2024 GFR/1.73 sq M.predicted among non-blacks MDRD (S/P/Bld) [Vol rate/Area] 12 mL/min/{1.73_m2} Low >[address] [facility] Hematocrit Auto (Bld) [Volum e fraction]Ordered By: Conrad Burnett on 10-31-2024 Hematocrit (Bld) [Volume fraction] 27.5 % Low 40-54 [facility] Hemoglobin measurementOrdere d By: Conrad Burnett on 10-31-2024 Hemoglobin (Bld) [Mass/Vol] 8.9 g/dL Low 13.0-16.5 [facility] Immature granulocytes/100 WB C Auto (Bld)Ordered By: Conrad Burnett on 10-31-2024 Immature granulocytes/100 WBC (Bld) 0.700 % 0.0-0.9 [facility] MCV (mean corpuscular volume ) determinationOrdered By: Conrad Burnett on 10-31-2024 MCV (RBC) [Entitic vol] 94.5 fL High 80-94 [facility] Mean corpuscular hemoglobin (MCH) determinationOrdered By: Conrad Burnett on 10-31-2024 MCH (RBC) [Entitic mass] 30.6 pg 27.0-32.0 [facility] Monocyte percentageOrdered B y: Normastevedavid Cardozasahrakofi on 10-31-2024 Monocytes/100 WBC (Bld) 9.6 % 0-10 [facility] Neutrophil percentageOrdered By: Conrad Cardozasahrakofi on 10-31-2024 Neutrophils/100 WBC (Bld) 72.0 % High 47-70 [facility] No Panel InformationOrdered By: Conrad Burnett on 10-31-2024 30 U/L <38 [facility] Platelet countOrdered By: Godwin Burnett on 10-31-2024 Platelets (Bld) [#/Vol] 391 10*3/uL 150-450 [facility] Potassium measurement (mass/ volume)Ordered By: Conrad Burnett on 10-31-2024 Potassium (Unsp spec) [Mass/Vol] 3.8 mmol/L 3.3-5.1 [facility] RBC Auto (Bld) [#/Vol]Ordere d By: Conrad Burnett on 10-31-2024 RBC (Bld) [#/Vol] 2.91 10*6/uL Low 4.6-6.2 [facility] Serum creatinine measurement (mass/volume)Ordered By: Conrad Burnett on 10-31-2024 Creatinine [Mass/Vol] 4.99 mg/dL High 0.70-1.20 [facility] Serum globulin measurementOr dered By: Conrad Burnett on 10-31-2024 Globulin (S) [Mass/Vol] 2.6 g/dL 2.2-4.2 [facility] Serum glucose measurement (m ass/volume)Ordered By: Conrad Burnett on 10-31-2024 Glucose [Mass/Vol] 122 mg/dL High 70-99 [facility] Serum or plasma alanine gandhi otransferase (ALT) measurementOrdered By: Conrad Burnett on 10-31-2024 ALT [Catalytic activity/Vol] 11 U/L <47 [facility] Serum or plasma albumin makenzie urement (mass/volume)Ordered By: Conrad Burnett on 10-31-2024 Albumin [Mass/Vol] 2.2 g/dL Low 3.4-4.8 [facility] Serum or plasma albumin/glob ulin mass ratioOrdered By: Conrad Burnett on 10-31-2024 Albumin/Globulin [Mass ratio] 0.8 {ratio} Low 0.9-2.4 [facility] Serum or plasma alkaline manju sphatase measurementOrdered By: Conrad Burnett on 10-31-2024 ALP [Catalytic activity/Vol] 76 U/L 40-129 [facility] Serum or plasma calcium makenzie urement (mass/volume)Ordered By: Conrad Burnett on 10-31-2024 Calcium [Mass/Vol] 8.2 mg/dL 7.6-11.0 [facility] Serum or plasma urea nitroge n measurement (mass/volume)Ordered By: Conrad Burnett on 10-31-2024 Urea nitrogen [Mass/Vol] 24 mg/dL High - [facility] Sodium levelOrdered By: Norma Burnett on 10-31-2024 Sodium [Moles/Vol] 142 mmol/L 133-145 [facility] Total proteinOrdered By: Malick Burnett on 10-31-2024 Protein [Mass/Vol] 4.8 g/dL Low 5.9-8.4 [facility] White blood cell (WBC) count Ordered By: Conrad Burnett on 10-31-2024 WBC (Bld) [#/Vol] 13.2 10*3/uL High 4.4-11.0 [facility] Basic Metabolic Profile (BMP )on 10-30-2024 BUN Normal 05-25 [facility] Comment on above: Result Comment: Jennifer mcgovern via OM: Order cancelled - Patient discharged Performed By: #### L 100.0100, L500.2500 ####[facility] [address] [place], [place], [address] BUN/CRE Normal - [facility] Comment on above: Result Comment: Canc elled via OM: Order cancelled - Patient discharged Performed By: #### L 100.0100, L500.2500 ####[facility] [address] [place], [address] Calcium Normal 7.6-11.0 [facility] Comment on above: Result Comment: Canc elled via OM: Order cancelled - Patient discharged Performed By: #### L 100.0100, L500.2500 ####[facility] [address] [place], [address] CL Normal 98-108 [facility] Comment on above: Result Comment: Canc elled via OM: Order cancelled - Patient discharged Performed By: #### L 100.0100, L500.2500 ####[facility] [address] [place], [address] CO2 Normal 21.0-32.0 [facility] Comment on above: Result Comment: Canc elled via OM: Order cancelled - Patient discharged Performed By: #### L 100.0100, L500.2500 ####[facility] [address] [place], [address] CREAT,SERUM Normal 0.70-1.20 [facility] Comment on above: Result Comment: Canc elled via OM: Order cancelled - Patient discharged Performed By: #### L 100.0100, L500.2500 ####[facility] [address] [place], [address] eGFR Normal >60 [facility] Comment on above: Result Comment: Canc elled via OM: Order cancelled - Patient discharged Performed By: #### L 100.0100, L500.2500 ####[facility] [address] [place], [address] GAP Normal 5-15 [facility] Comment on above: Result Comment: Canc elled via OM: Order cancelled - Patient discharged Performed By: #### L 100.0100, L500.2500 ####[facility] [address] [place], [address] GLU Normal 70-99 [facility] Comment on above: Result Comment: Canc elled via OM: Order cancelled - Patient discharged Performed By: #### L 100.0100, L500.2500 ####[facility] [address] [place], [address] Potassium Normal 3.3-5.1 [facility] Comment on above: Result Comment: Canc elled via OM: Order cancelled - Patient discharged Performed By: #### L 100.0100, L500.2500 ####[facility] [address] [place], [address] Basic Metabolic Profile (BMP) Normal 133-145 [facility] Comment on above: Result Comment: Canc elled via OM: Order cancelled - Patient discharged Performed By: #### L 100.0100, L500.2500 ####[facility] [address] [place], [address] CBC W/Diff, Automatedon 09-2 Absolute Neut Normal 2.0-7.7 [facility] Comment on above: Result Comment: Canc elled via OM: Order cancelled - Patient discharged Performed By: #### L 100.0100, L500.2500 ####[facility] [address] [place], [address] HCT Normal 40-54 [facility] Comment on above: Result Comment: Canc elled via OM: Order cancelled - Patient discharged Performed By: #### L 100.0100, L500.2500 ####[facility] [address] [place], [address] HGB Normal 13.0-16.5 [facility] Comment on above: Result Comment: Canc elled via OM: Order cancelled - Patient discharged Performed By: #### L 100.0100, L500.2500 ####[facility] [address] [place], [address] MCH Normal 27.0-32.0 [facility] Comment on above: Result Comment: Canc elled via OM: Order cancelled - Patient discharged Performed By: #### L 100.0100, L500.2500 ####[facility] [address] [place], [address] MCHC Normal 32-36 [facility] Comment on above: Result Comment: Canc elled via OM: Order cancelled - Patient discharged Performed By: #### L 100.0100, L500.2500 ####[facility] [address] [place], [address] MCV Normal 80-94 [facility] Comment on above: Result Comment: Canc elled via OM: Order cancelled - Patient discharged Performed By: #### L 100.0100, L500.2500 ####[facility] [address] [place], [address] NEUT% Normal 47-70 [facility] Comment on above: Result Comment: Canc elled via OM: Order cancelled - Patient discharged Performed By: #### L 100.0100, L500.2500 ####[facility] [address] [place], [address] PLT Normal 150-450 [facility] Comment on above: Result Comment: Canc elled via OM: Order cancelled - Patient discharged Performed By: #### L 100.0100, L500.2500 ####[facility] [address] [place], [address] RBC Normal 4.6-6.2 [facility] Comment on above: Result Comment: Canc elled via OM: Order cancelled - Patient discharged Performed By: #### L 100.0100, L500.2500 ####[facility] [address] [place], [address] RDW CV Normal 11.6-14.6 [facility] Comment on above: Result Comment: Canc elled via OM: Order cancelled - Patient discharged Performed By: #### L 100.0100, L500.2500 ####[facility] [address] [place], [address] RDW SD Normal 35.1-43.9 [facility] Comment on above: Result Comment: Canc elled via OM: Order cancelled - Patient discharged Performed By: #### L 100.0100, L500.2500 ####[facility] [address] [place], [address] WBC Normal 4.4-11.0 [facility] Comment on above: Result Comment: Canc elled via OM: Order cancelled - Patient discharged Performed By: #### L 100.0100, L500.2500 ####[facility] [address] [place], [address] Culture, Blood (WB)on 2024 CUB No growth in 5 days. Normal [facility] Comment on above: Performed By: #### M 200.1000 ####[facility] [address] [place], [address] Absolute lymphocyte countOrd ered By: Rosmery Lake on 10-29-2024 Lymphocytes Auto (Unsp spec) [#/Vol] 1.19 10*3/uL 0.83-4.51 [facility] Activated partial thrombopla stin time (aPTT) in platelet poor plasma by coagulation aOrdered By: Rosmery Lake on 10-29-2024 aPTT Coag (PPP) [Time] 28.4 s 24.1-36.[address] [facility] Anion gap in Serum or Plasma Ordered By: Rosmery Lake on 10-29-2024 Anion gap [Moles/Vol] 16 mmol/L High 5-15 [facility] Automated lymphocyte count a s percentage of total leukocytesOrdered By: Rosmery Lake on 10-29-2024 Lymphocytes/100 WBC Auto (Unsp spec) 8.7 % Low 19-41 [facility] BUN/creatinine ratioOrdered By: Rosmery Lake on 10-29-2024 Urea nitrogen/Creatinine [Mass ratio] 7.1 mg/mg Low 10-20 [facility] Basic Metabolic Profile (BMP )on 10-29-2024 BUN/CRE 7.1 RATIO Low 10-20 [facility] Comment on above: Performed By: #### L 500.2500, L100.0100 ####[facility] [address] [place], [address] Calcium [Mass/Vol] 8.7 mg/dL Normal 7.6-11.0 [facility] Comment on above: Performed By: #### L 500.2500, L100.0100 ####[facility] [address] [place], [address] Chloride [Moles/Vol] 107 mmol/L Normal 98-108 [facility] Comment on above: Performed By: #### L 500.2500, L100.0100 ####[facility] [address] [place], [address] CO2 [Moles/Vol] 19.4 mmol/L Low 21.0-32.0 [facility] Comment on above: Performed By: #### L 500.2500, L100.0100 ####[facility] [address] [place], [address] Creatinine [Mass/Vol] 7.99 mg/dL Invalid Interpretation Code 0.70-1.20 [facility] Comment on above: Result Comment: Crit ical Result(s) Called at: 0551 by:??ANA HAGEN Results read back by same. Performed By: #### L 500.2500, L100.0100 ####[facility] [address] [place], [address] ECRCL 9.49 ml/min Invalid Interpretation Code 50-250 [facility] Comment on above: Performed By: #### L 500.2500, L100.0100 ####[facility] [address] [place], [address] GAP 16 High 5-15 [facility] Comment on above: Performed By: #### L 500.2500, L100.0100 ####[facility] [address] [place], [address] GFR/1.73 sq M.predicted among non-blacks MDRD (S/P/Bld) [Vol rate/Area] 7 mL/min/{1.73_m2} Low >60 [facility] Comment on above: Result Comment: mL/m in/1.73m2 CKD-EPI Creatinine Equation (2020) Performed By: #### L 500.2500, L100.0100 ####[facility] [address] [place], [address] Glucose [Mass/Vol] 143 mg/dL High 70-99 [facility] Comment on above: Performed By: #### L 500.2500, L100.0100 ####[facility] [address] [place], [address] Potassium [Moles/Vol] 4.0 mmol/L Normal 3.3-5.1 [facility] Comment on above: Performed By: #### L 500.2500, L100.0100 ####[facility] [address] [place], [address] Sodium [Moles/Vol] 143 mmol/L Normal 133-145 [facility] Comment on above: Performed By: #### L 500.2500, L100.0100 ####[facility] [address] [place], [address] Urea nitrogen [Mass/Vol] 57 mg/dL High 4-19 [facility] Comment on above: Performed By: #### L 500.2500, L100.0100 ####[facility] [address] [place], [address] Basophil percentageOrdered B y: Rosmery Lake on 10-29-2024 Basophils/100 WBC (Bld) 0.8 % 0-1 [facility] Bedside Glucoseon 10-29-2024 FINGERSTICK GLU 106 mg/dL Normal 74-106 [facility] Comment on above: Result Comment: MARKY GEMENT OF PATIENT CARE PER NURSING PROTOCOL Performed By: #### L 501.080 ####[facility] [address] [place], [address] FINGERSTICK GLU 121 mg/dL High 74-106 [facility] Comment on above: Result Comment: MARKY GEMENT OF PATIENT CARE PER NURSING PROTOCOL Performed By: #### L 501.080 ####[facility] [address] [place], [address] FINGERSTICK GLU 130 mg/dL High 74-106 [facility] Comment on above: Result Comment: MARKY GEMENT OF PATIENT CARE PER NURSING PROTOCOL Performed By: #### L 501.080 ####[facility] [address] [place], [address] CBC W/Diff, Automatedon 10-08 Absolute Lymph 1.19 X10 3/uL Normal 0.83-4.51 [facility] Comment on above: Performed By: #### L 500.2500, L100.0100 ####[facility] [address] [place], [address] Absolute Neut 10.9 X10 3/uL High 2.0-7.7 [facility] Comment on above: Performed By: #### L 500.2500, L100.0100 ####[facility] [address] [place], [address] Basophils/100 WBC (Bld) 0.8 % Normal 0-1 [facility] Comment on above: Performed By: #### L 500.2500, L100.0100 ####[facility] [address] [place], [address] Eosinophils/100 WBC (Bld) 3.5 % Normal 0-5 [facility] Comment on above: Performed By: #### L 500.2500, L100.0100 ####[facility] [address] [place], [address] Erythrocyte distribution width (RBC) [Ratio] 14.1 % Normal 11.6-14.6 [facility] Comment on above: Performed By: #### L 500.2500, L100.0100 ####[facility] [address] [place], [address] Hematocrit (Bld) [Volume fraction] 25.3 % Low 40-54 [facility] Comment on above: Performed By: #### L 500.2500, L100.0100 ####[facility] [address] [place], [address] Hemoglobin (Bld) [Mass/Vol] 8.5 g/dL Low 13.0-16.5 [facility] Comment on above: Performed By: #### L 500.2500, L100.0100 ####[facility] [address] [place], [address] IG% 1.200 High 0.0-0.9 [facility] Comment on above: Result Comment: IG% - Immature Granulocytes (promyelocytes, myelocytes andmetamyelocytes) > 1% indicates that a LEFT SHIFT is Present. Performed By: #### L 500.2500, L100.0100 ####[facility] [address] [place], [address] Lymphocytes/100 WBC (Bld) 8.7 % Low 19-41 [facility] Comment on above: Performed By: #### L 500.2500, L100.0100 ####[facility] [address] [place], [address] MCH (RBC) [Entitic mass] 30.7 pg Normal 27.0-32.0 [facility] Comment on above: Performed By: #### L 500.2500, L100.0100 ####[facility] [address] [place], [address] MCHC (RBC) [Mass/Vol] 33.6 g/dL Normal 32-36 [facility] Comment on above: Performed By: #### L 500.2500, L100.0100 ####[facility] [address] [place], [address] MCV (RBC) [Entitic vol] 91.3 fL Normal 80-94 [facility] Comment on above: Performed By: #### L 500.2500, L100.0100 ####[facility] [address] [place], [address] Monocytes/100 WBC (Bld) 6.1 % Normal 0-10 [facility] Comment on above: Performed By: #### L 500.2500, L100.0100 ####[facility] [address] [place], [address] Neutrophils/100 WBC (Bld) 79.7 % High 47-70 [facility] Comment on above: Performed By: #### L 500.2500, L100.0100 ####[facility] [address] [place], [address] Nucleated RBC (Bld) [#/Vol] 0 10*3/uL Normal 0-5 [facility] Comment on above: Performed By: #### L 500.2500, L100.0100 ####[facility] [address] [place], [address] Platelet mean volume (Bld) [Entitic vol] 11.3 fL Normal 6.2-12.0 [facility] Comment on above: Performed By: #### L 500.2500, L100.0100 ####[facility] [address] [place], [address] Platelets (Bld) [#/Vol] 438 10*3/uL Normal 150-450 [facility] Comment on above: Performed By: #### L 500.2500, L100.0100 ####[facility] [address] [place], [address] RBC (Bld) [#/Vol] 2.77 10*6/uL Low 4.6-6.2 [facility] Comment on above: Performed By: #### L 500.2500, L100.0100 ####[facility] [address] [place], [address] RDW SD 46.7 fl High 35.1-43.9 [facility] Comment on above: Performed By: #### L 500.2500, L100.0100 ####[facility] [address] [place], [address] WBC (Bld) [#/Vol] 13.7 10*3/uL High 4.4-11.0 [facility] Comment on above: Performed By: #### L 500.2500, L100.0100 ####[facility] [address] [place], [address] CXR for Line Placementon CXR for Line Placement Normal [facility] Carbon dioxide, total [Moles /volume] in Central venous bloodOrdered By: Rosmery Lake on 10-29-2024 CO2 [Moles/Vol] 19.4 mmol/L Low 21.0-32.0 [facility] Chloride assayOrdered By: Dariela Lake on 10-29-2024 Chloride [Moles/Vol] 107 mmol/L 98-108 [facility] Eosinophil percentageOrdered By: Rosmery Lake on 10-29-2024 Eosinophils/100 WBC (Bld) 3.5 % 0-5 [facility] Erythrocyte distribution wid th ratioOrdered By: Rosmery Lake on 10-29-2024 Erythrocyte distribution width (RBC) [Ratio] 14.1 % 11.6-14.6 [facility] Erythrocyte distribution wid th standard deviationOrdered By: Rosmery Lake on 10-29-2024 Erythrocyte distribution width (RBC) [Ratio] 46.7 fl High 35.1-43.9 [facility] Glomerular filtration rate ( GFR) estimation/1.73 sq m using serum, plasma, or whole bOrdered By: Rosmery Lake on 10-29-2024 GFR/1.73 sq M.predicted among non-blacks MDRD (S/P/Bld) [Vol rate/Area] 7 mL/min/{1.73_m2} Low >60 [facility] deOrdered By: Javon Baldwin on 10-29-2024 Glucose [Mass/Vol] 106 mg/dL 74-106 [facility] [facility] Hemat[facility] Auto (Bld) [Volum e fraction]Ordered By: Rosmery Lake on 10-29-2024 Hematocrit (Bld) [Volume fraction] 25.3 % Low 40-54 [facility] Hemoglobin measurementOrdere d By: Rosmery Lake on 10-29-2024 Hemoglobin (Bld) [Mass/Vol] 8.5 g/dL Low 13.0-16.5 [facility] Immature granulocytes/100 WB C Auto (Bld)Ordered By: Rosmery Lake 10-29-2024 Immature granulocytes/100 WBC (Bld) 1.200 % High 0.0-0.9 [facility] MCV (mean corpuscular volume ) determinationOrdered By: Rosmery Lake on 10-29-2024 MCV (RBC) [Entitic vol] 91.3 fL 80-94 [facility] MR/POSTOP.ANEon 10-29-2024 MR/POSTOP.ANE Normal [facility] MR/FYOUQPDE1jd 10-29-2024 MR/POSTOPAN2 Normal [facility] Mean corpuscular hemoglobin (MCH) determinationOrdered By: Rosmery Lake on 10-29-2024 MCH (RBC) [Entitic mass] 30.7 pg 27.0-32.0 [facility] Monocyte percentageOrdered B y: Rosmery Jaya on 10-29-2024 Monocytes/100 WBC (Bld) 6.1 % 0-10 [facility] Neutrophil percentageOrdered By: Rosmery Lake on 10-29-2024 Neutrophils/100 WBC (Bld) 79.7 % High 47-70 [facility] Operative Reporton Operative Report Normal [facility] Partial Thromboplast Timeon 10-29-2024 aPTT Coag (Bld) [Time] 28.4 s Normal 24.1-36.[address] [facility] Comment on above: Performed By: #### L 300.4083 ####[facility] [address] [place], [place], [address] Platelet countOrdered By: Dariela Lake on 10-29-2024 Platelets (Bld) [#/Vol] 438 10*3/uL 150-450 [facility] Potassium measurement (mass/ volume)Ordered By: Rosmery Lake on 10-29-2024 Potassium (Unsp spec) [Mass/Vol] 4.0 mmol/L 3.3-5.1 [facility] RBC Auto (Bld) [#/Vol]Ordere d By: Rosmery Lake on 10-29-2024 RBC (Bld) [#/Vol] 2.77 10*6/uL Low 4.6-6.2 [facility] Serum creatinine measurement (mass/volume)Ordered By: Rosmery Lake on 10-29-2024 Creatinine [Mass/Vol] 7.99 mg/dL Critically high 0.70-1.20 [facility] Serum glucose measurement (m ass/volume)Ordered By: Rosmery Lake on 10-29-2024 Glucose [Mass/Vol] 143 mg/dL High 70-99 [facility] Serum or plasma calcium makenzie urement (mass/volume)Ordered By: Rosmery Lake on 10-29-2024 Calcium [Mass/Vol] 8.7 mg/dL 7.6-11.0 [facility] Serum or plasma urea nitroge n measurement (mass/volume)Ordered By: Rosmery Lake on 10-29-2024 Urea nitrogen [Mass/Vol] 57 mg/dL High 4-19 [facility] Sodium levelOrdered By: Rosmery Lake on 10-29-2024 Sodium [Moles/Vol] 143 mmol/L 133-145 [facility] White blood cell (WBC) count Ordered By: Rosmery Lake on 10-29-2024 WBC (Bld) [#/Vol] 13.7 10*3/uL High 4.4-11.0 [facility] Basic Metabolic Profile (BMP )on 10-28-2024 BUN/CRE 7.4 RATIO Low 10-20 [facility] Comment on above: Performed By: #### L 500.2500, L100.0100 ####[facility] [address] [place], [address] Calcium [Mass/Vol] 8.8 mg/dL Normal 7.6-11.0 [facility] Comment on above: Performed By: #### L 500.2500, L100.0100 ####[facility] [address] [place], [address] Chloride [Moles/Vol] 104 mmol/L Normal 98-108 [facility] Comment on above: Performed By: #### L 500.2500, L100.0100 ####[facility] [address] [place], [address] CO2 [Moles/Vol] 19.0 mmol/L Low 21.0-32.0 [facility] Comment on above: Performed By: #### L 500.2500, L100.0100 ####[facility] [address] [place], [address] Creatinine [Mass/Vol] 7.71 mg/dL Invalid Interpretation Code 0.70-1.20 [facility] Comment on above: Result Comment: Crit ical Result(s) Called at 0632: by: TRISTIN LOO. ??Results read back by same. Performed By: #### L 500.2500, L100.0100 ####[facility] [address] [place], [address] ECRCL 9.84 ml/min Invalid Interpretation Code 50-250 [facility] Comment on above: Performed By: #### L 500.2500, L100.0100 ####[facility] [address] [place], [address] GAP 17 High 5-15 [facility] Comment on above: Performed By: #### L 500.2500, L100.0100 ####[facility] [address] [place], [address] GFR/1.73 sq M.predicted among non-blacks MDRD (S/P/Bld) [Vol rate/Area] 7 mL/min/{1.73_m2} Low >60 [facility] Comment on above: Result Comment: mL/m in/1.73m2 CKD-EPI Creatinine Equation (2020) Performed By: #### L 500.2500, L100.0100 ####[facility] [address] [place], [address] Glucose [Mass/Vol] 147 mg/dL High 70-99 [facility] Comment on above: Performed By: #### L 500.2500, L100.0100 ####[facility] [address] [place], [address] Potassium [Moles/Vol] 3.9 mmol/L Normal 3.3-5.1 [facility] Comment on above: Performed By: #### L 500.2500, L100.0100 ####[facility] [address] [place], [address] Sodium [Moles/Vol] 140 mmol/L Normal 133-145 [facility] Comment on above: Performed By: #### L 500.2500, L100.0100 ####[facility] [address] [place], [address] Urea nitrogen [Mass/Vol] 57 mg/dL High 4-19 [facility] Comment on above: Performed By: #### L 500.2500, L100.0100 ####[facility] [address] [place], [address] Bedside Glucoseon 10-28-2024 FINGERSTICK GLU 150 mg/dL High 74-106 [facility] Comment on above: Result Comment: MARKY GEMENT OF PATIENT CARE PER NURSING PROTOCOL Performed By: #### L 501.080 ####[facility] [address] [place], [address] FINGERSTICK GLU 191 mg/dL High 74-106 [facility] Comment on above: Result Comment: MARKY GEMENT OF PATIENT CARE PER NURSING PROTOCOL Performed By: #### L 501.080 ####[facility] [address] [place], [address] FINGERSTICK GLU 218 mg/dL High 74-106 [facility] Comment on above: Result Comment: MARKY GEMENT OF PATIENT CARE PER NURSING PROTOCOL Performed By: #### L 501.080 ####[facility] [address] [place], [address] CBC W/Diff, Automatedon 10-08 Absolute Lymph 1.87 X10 3/uL Normal 0.83-4.51 [facility] Comment on above: Performed By: #### L 500.2500, L100.0100 ####[facility] [address] [place], [address] Absolute Neut 11.4 X10 3/uL High 2.0-7.7 [facility] Comment on above: Performed By: #### L 500.2500, L100.0100 ####[facility] [address] [place], [address] Basophils/100 WBC (Bld) 0.7 % Normal 0-1 [facility] Comment on above: Performed By: #### L 500.2500, L100.0100 ####[facility] [address] [place], [address] Eosinophils/100 WBC (Bld) 4.0 % Normal 0-5 [facility] Comment on above: Performed By: #### L 500.2500, L100.0100 ####[facility] [address] [place], [address] Erythrocyte distribution width (RBC) [Ratio] 13.8 % Normal 11.6-14.6 [facility] Comment on above: Performed By: #### L 500.2500, L100.0100 ####[facility] [address] [place], [address] Hematocrit (Bld) [Volume fraction] 26.3 % Low 40-54 [facility] Comment on above: Performed By: #### L 500.2500, L100.0100 ####[facility] [address] [place], [address] Hemoglobin (Bld) [Mass/Vol] 8.8 g/dL Low 13.0-16.5 [facility] Comment on above: Performed By: #### L 500.2500, L100.0100 ####[facility] [address] [place], [address] IG% 2.700 High 0.0-0.9 [facility] Comment on above: Result Comment: IG% - Immature Granulocytes (promyelocytes, myelocytes andmetamyelocytes) > 1% indicates that a LEFT SHIFT is Present. Performed By: #### L 500.2500, L100.0100 ####[facility] [address] [place], [address] Lymphocytes/100 WBC (Bld) 12.1 % Low 19-41 [facility] Comment on above: Performed By: #### L 500.2500, L100.0100 ####[facility] [address] [place], [address] MCH (RBC) [Entitic mass] 30.6 pg Normal 27.0-32.0 [facility] Comment on above: Performed By: #### L 500.2500, L100.0100 ####[facility] [address] [place], [address] MCHC (RBC) [Mass/Vol] 33.5 g/dL Normal 32-36 [facility] Comment on above: Performed By: #### L 500.2500, L100.0100 ####[facility] [address] [place], [address] MCV (RBC) [Entitic vol] 91.3 fL Normal 80-94 [facility] Comment on above: Performed By: #### L 500.2500, L100.0100 ####[facility] [address] [place], [address] Monocytes/100 WBC (Bld) 6.2 % Normal 0-10 [facility] Comment on above: Performed By: #### L 500.2500, L100.0100 ####[facility] [address] [place], [address] Neutrophils/100 WBC (Bld) 74.3 % High 47-70 [facility] Comment on above: Performed By: #### L 500.2500, L100.0100 ####[facility] [address] [place], [address] Nucleated RBC (Bld) [#/Vol] 0 10*3/uL Normal 0-5 [facility] Comment on above: Performed By: #### L 500.2500, L100.0100 ####[facility] [address] [place], [address] Platelet mean volume (Bld) [Entitic vol] 11.2 fL Normal 6.2-12.0 [facility] Comment on above: Performed By: #### L 500.2500, L100.0100 ####[facility] [address] [place], [address] Platelets (Bld) [#/Vol] 442 10*3/uL Normal 150-450 [facility] Comment on above: Performed By: #### L 500.2500, L100.0100 ####[facility] [address] [place], [address] RBC (Bld) [#/Vol] 2.88 10*6/uL Low 4.6-6.2 [facility] Comment on above: Performed By: #### L 500.2500, L100.0100 ####[facility] [address] [place], [address] RDW SD 45.0 fl High 35.1-43.9 [facility] Comment on above: Performed By: #### L 500.2500, L100.0100 ####[facility] [address] [place], [address] WBC (Bld) [#/Vol] 15.4 10*3/uL High 4.4-11.0 [facility] Comment on above: Performed By: #### L 500.2500, L100.0100 ####[facility] [address] [place], [address] Partial Thromboplast Timeon 10-28-2024 aPTT Coag (Bld) [Time] 60.4 s High 24.1-36.[address] [facility] Comment on above: Performed By: #### L 300.4310 ####[facility] [address] [place], [address] Basic Metabolic Profile (BMP )on 10-27-2024 BUN/CRE 7.7 RATIO Low 10-20 [facility] Comment on above: Performed By: #### L 500.2500, L100.0100 ####[facility] [address] [place], [address] Calcium [Mass/Vol] 8.7 mg/dL Normal 7.6-11.0 [facility] Comment on above: Performed By: #### L 500.2500, L100.0100 ####[facility] [address] [place], [address] Chloride [Moles/Vol] 104 mmol/L Normal 98-108 [facility] Comment on above: Performed By: #### L 500.2500, L100.0100 ####[facility] [address] [place], [address] CO2 [Moles/Vol] 19.8 mmol/L Low 21.0-32.0 [facility] Comment on above: Performed By: #### L 500.2500, L100.0100 ####[facility] [address] [place], [address] Creatinine [Mass/Vol] 7.51 mg/dL Invalid Interpretation Code 0.70-1.20 [facility] Comment on above: Result Comment: Crit ical Result(s) Called at 0456: by: TRISTIN ESTRADA. ??Results read back by same. Performed By: #### L 500.2500, L100.0100 ####[facility] [address] [place], [address] ECRCL 10.10 ml/min Low 50-250 [facility] Comment on above: Performed By: #### L 500.2500, L100.0100 ####[facility] [address] [place], [address] GAP 16 High 5-15 [facility] Comment on above: Performed By: #### L 500.2500, L100.0100 ####[facility] [address] [place], [address] GFR/1.73 sq M.predicted among non-blacks MDRD (S/P/Bld) [Vol rate/Area] 7 mL/min/{1.73_m2} Low >60 [facility] Comment on above: Result Comment: mL/m in/1.73m2 CKD-EPI Creatinine Equation (2020) Performed By: #### L 500.2500, L100.0100 ####[facility] [address] [place], [address] Glucose [Mass/Vol] 148 mg/dL High 70-99 [facility] Comment on above: Performed By: #### L 500.2500, L100.0100 ####[facility] [address] [place], [address] Potassium [Moles/Vol] 3.6 mmol/L Normal 3.3-5.1 [facility] Comment on above: Performed By: #### L 500.2500, L100.0100 ####[facility] [address] [place], [address] Sodium [Moles/Vol] 139 mmol/L Normal 133-145 [facility] Comment on above: Performed By: #### L 500.2500, L100.0100 ####[facility] [address] [place], [address] Urea nitrogen [Mass/Vol] 58 mg/dL High 4-19 [facility] Comment on above: Performed By: #### L 500.2500, L100.0100 ####[facility] [address] [place], [address] Bedside Glucoseon 10-27-2024 FINGERSTICK GLU 189 mg/dL High 74-106 [facility] Comment on above: Result Comment: MARKY PATEL OF PATIENT CARE PER NURSING PROTOCOL Performed By: #### L 501.080 ####[facility] [address] [place], [address] FINGERSTICK GLU 136 mg/dL High 74-106 [facility] Comment on above: Result Comment: MARKY GEMENT OF PATIENT CARE PER NURSING PROTOCOL Performed By: #### L 501.080 ####[facility] [address] [place], [address] FINGERSTICK GLU 183 mg/dL High 74-106 [facility] Comment on above: Result Comment: MARKY GEMENT OF PATIENT CARE PER NURSING PROTOCOL Performed By: #### L 501.080 ####[facility] [address] [place], [address] FINGERSTICK GLU 145 mg/dL High 74-106 [facility] Comment on above: Result Comment: MARKY GEMENT OF PATIENT CARE PER NURSING PROTOCOL Performed By: #### L 501.080 ####[facility] [address] [place], [address] CBC W/Diff, Automatedon -03 09-2024 Absolute Lymph 2.25 X10 3/uL Normal 0.83-4.51 [facility] Comment on above: Performed By: #### L 500.2500, L100.0100 ####[facility] [address] [place], [address] Absolute Neut 12.9 X10 3/uL High 2.0-7.7 [facility] Comment on above: Performed By: #### L 500.2500, L100.0100 ####[facility] [address] [place], [address] Basophils/100 WBC (Bld) 0.8 % Normal 0-1 [facility] Comment on above: Performed By: #### L 500.2500, L100.0100 ####[facility] [address] [place], [address] Eosinophils/100 WBC (Bld) 3.8 % Normal 0-5 [facility] Comment on above: Performed By: #### L 500.2500, L100.0100 ####[facility] [address] [place], [address] Erythrocyte distribution width (RBC) [Ratio] 13.9 % Normal 11.6-14.6 [facility] Comment on above: Performed By: #### L 500.2500, L100.0100 ####[facility] [address] [place], [address] Hematocrit (Bld) [Volume fraction] 26.9 % Low 40-54 [facility] Comment on above: Performed By: #### L 500.2500, L100.0100 ####[facility] [address] [place], [address] Hemoglobin (Bld) [Mass/Vol] 8.9 g/dL Low 13.0-16.5 [facility] Comment on above: Performed By: #### L 500.2500, L100.0100 ####[facility] [address] [place], [address] IG% 4.300 High 0.0-0.9 [facility] Comment on above: Result Comment: IG% - Immature Granulocytes (promyelocytes, myelocytes andmetamyelocytes) > 1% indicates that a LEFT SHIFT is Present. Performed By: #### L 500.2500, L100.0100 ####[facility] [address] [place], [address] Lymphocytes/100 WBC (Bld) 12.7 % Low 19-41 [facility] Comment on above: Performed By: #### L 500.2500, L100.0100 ####[facility] [address] [place], [address] MCH (RBC) [Entitic mass] 30.2 pg Normal 27.0-32.0 [facility] Comment on above: Performed By: #### L 500.2500, L100.0100 ####[facility] [address] [place], [address] MCHC (RBC) [Mass/Vol] 33.1 g/dL Normal 32-36 [facility] Comment on above: Performed By: #### L 500.2500, L100.0100 ####[facility] [address] [place], [address] MCV (RBC) [Entitic vol] 91.2 fL Normal 80-94 [facility] Comment on above: Performed By: #### L 500.2500, L100.0100 ####[facility] [address] [place], [address] Monocytes/100 WBC (Bld) 5.9 % Normal 0-10 [facility] Comment on above: Performed By: #### L 500.2500, L100.0100 ####[facility] [address] [place], [address] Neutrophils/100 WBC (Bld) 72.5 % High 47-70 [facility] Comment on above: Performed By: #### L 500.2500, L100.0100 ####[facility] [address] [place], [address] Nucleated RBC (Bld) [#/Vol] 0 10*3/uL Normal 0-5 [facility] Comment on above: Performed By: #### L 500.2500, L100.0100 ####[facility] [address] [place], [address] Platelet mean volume (Bld) [Entitic vol] 10.7 fL Normal 6.2-12.0 [facility] Comment on above: Performed By: #### L 500.2500, L100.0100 ####[facility] [address] [place], [address] Platelets (Bld) [#/Vol] 397 10*3/uL Normal 150-450 [facility] Comment on above: Performed By: #### L 500.2500, L100.0100 ####[facility] [address] [place], [address] RBC (Bld) [#/Vol] 2.95 10*6/uL Low 4.6-6.2 [facility] Comment on above: Performed By: #### L 500.2500, L100.0100 ####[facility] [address] [place], [address] RDW SD 46.5 fl High 35.1-43.9 [facility] Comment on above: Performed By: #### L 500.2500, L100.0100 ####[facility] [address] [place], [address] WBC (Bld) [#/Vol] 17.7 10*3/uL High 4.4-11.0 [facility] Comment on above: Performed By: #### L 500.2500, L100.0100 ####[facility] [address] [place], [address] Partial Thromboplast Timeon 10-27-2024 aPTT Coag (Bld) [Time] 62.8 s High 24.1-36.[address] [facility] Comment on above: Performed By: #### L 300.4310 ####[facility] [address] [place], [address] aPTT Coag (Bld) [Time] 67.2 s High 24.1-36.[address] [facility] Comment on above: Performed By: #### L 300.4310 ####[facility] [address] [place], [address] aPTT Coag (Bld) [Time] 85.5 s High 24.1-36.[address] [facility] Comment on above: Performed By: #### L 300.4310 ####[facility] [address] [place], [address] Urine Cultureon 10-27-2024 URC Culture exhibits no growth. Normal [facility] Comment on above: Performed By: #### M 100.2200 ####[facility] [address] [place], [address] Basic Metabolic Profile (BMP )on 10-26-2024 BUN/CRE 7.9 RATIO Low 10-20 [facility] Comment on above: Performed By: #### L 500.2500, L100.0100 ####[facility] [address] [place], [address] Calcium [Mass/Vol] 8.5 mg/dL Normal 7.6-11.0 [facility] Comment on above: Performed By: #### L 500.2500, L100.0100 ####[facility] [address] [place], [address] Chloride [Moles/Vol] 106 mmol/L Normal 98-108 [facility] Comment on above: Performed By: #### L 500.2500, L100.0100 ####[facility] [address] [place], [address] CO2 [Moles/Vol] 18.5 mmol/L Low 21.0-32.0 [facility] Comment on above: Performed By: #### L 500.2500, L100.0100 ####[facility] [address] [place], [address] Creatinine [Mass/Vol] 7.44 mg/dL Invalid Interpretation Code 0.70-1.20 [facility] Comment on above: Performed By: #### L 500.2500, L100.0100 ####[facility] [address] [place], [address] ECRCL 10.20 ml/min Low 50-250 [facility] Comment on above: Performed By: #### L 500.2500, L100.0100 ####[facility] [address] [place], [address] GAP 15 Normal 5-15 [facility] Comment on above: Performed By: #### L 500.2500, L100.0100 ####[facility] [address] [place], [address] GFR/1.73 sq M.predicted among non-blacks MDRD (S/P/Bld) [Vol rate/Area] 7 mL/min/{1.73_m2} Low >60 [facility] Comment on above: Result Comment: mL/m in/1.73m2 CKD-EPI Creatinine Equation (2020) Performed By: #### L 500.2500, L100.0100 ####[facility] [address] [place], [address] Glucose [Mass/Vol] 173 mg/dL High 70-99 [facility] Comment on above: Performed By: #### L 500.2500, L100.0100 ####[facility] [address] [place], [address] Potassium [Moles/Vol] 3.7 mmol/L Normal 3.3-5.1 [facility] Comment on above: Performed By: #### L 500.2500, L100.0100 ####[facility] [address] [place], [address] Sodium [Moles/Vol] 139 mmol/L Normal 133-145 [facility] Comment on above: Performed By: #### L 500.2500, L100.0100 ####[facility] [address] [place], [address] Urea nitrogen [Mass/Vol] 59 mg/dL High 4-19 [facility] Comment on above: Performed By: #### L 500.2500, L100.0100 ####[facility] [address] [place], [address] Bedside Glucoseon 10-26-2024 FINGERSTICK GLU 187 mg/dL High 74-106 [facility] Comment on above: Result Comment: MARKY GEMENT OF PATIENT CARE PER NURSING PROTOCOL Performed By: #### L 501.080 ####[facility] [address] [place], [address] FINGERSTICK GLU 180 mg/dL High [facility]106 [facility] Comment on above: Result Comment: MARKY GEMENT OF PATIENT CARE PER NURSING PROTOCOL Performed By: #### L 501.080 ####[facility] [address] [place], [address] FINGERSTICK GLU 196 mg/dL High [address] [place] [address] Comment on above: Result Comment: MARKY GEMENT OF PATIENT CARE PER NURSING PROTOCOL Performed By: #### L 501.080 ####[facility] [address] [place], [address] FINGERSTICK GLU 141 mg/dL High [address] [place] [address] Comment on above: Result Comment: MARKY GEMENT OF PATIENT CARE PER NURSING PROTOCOL Performed By: #### L 501.080 ####[facility] [address] [place], [address] Blood band neutrophil count as percentage of total leukocytesOrdered By: Rosmery Lake on 10-26-2024 Band form neutrophils/100 WBC (Bld) 2 % 0-5 [facility] Blood eosinophils/100 leukoc ytesOrdered By: Rosmery Lake on 10-26-2024 Eosinophils/100 WBC (Bld) 2 % 0-5 [facility] Blood lymphocytes/100 leukoc ytesOrdered By: Rosmery Lake on 10-26-2024 Lymphocytes/100 WBC (Bld) 15 % Low 19-41 [facility] Blood metamyelocytes/100 petty kocytesOrdered By: Rosmery Lake on 10-26-2024 Metamyelocytes/100 WBC (Bld) 2 % High 0-1 [facility] Blood monocytes/100 leukocyt esOrdered By: Rosmery Lake on 10-26-2024 Monocytes/100 WBC (Bld) 4 % 0-10 [facility] Blood segmented neutrophils/ 100 leukocytesOrdered By: Rosmery Lake on 10-26-2024 Segmented neutrophils/100 WBC (Bld) 74 % High 47-70 [facility] CBC W/Diff, Automatedon 10-08 Absolute Lymph 2.69 X10 3/uL Normal 0.83-4.51 [facility] Comment on above: Performed By: #### L 500.2500, L100.0100 ####[facility] [address] [place], [address] Absolute Neut 13.6 X10 3/uL High 2.0-7.7 [facility] Comment on above: Performed By: #### L 500.2500, L100.0100 ####[facility] [address] [place], [address] Absolute Neut Normal 2.0-7.7 [facility] Comment on above: Result Comment: DUPL ICATE ORDER Performed By: #### L 100.0100 ####[facility] [facility] [address] [place], [address] HCT Normal 40-54 [facility] Comment on above: Result Comment: DUPL ICATE ORDER Performed By: #### L 100.0100 ####[facility] [address] [place], [address] HGB Normal 13.0-16.5 [facility] Comment on above: Result Comment: DUPL ICATE ORDER Performed By: #### L 100.0100 ####[facility] [address] [place], [address] MCH Normal 27.0-32.0 [facility] Comment on above: Result Comment: DUPL ICATE ORDER Performed By: #### L 100.0100 ####[facility] [address] [place], [address] MCHC Normal 32-36 [facility] Comment on above: Result Comment: DUPL ICATE ORDER Performed By: #### L 100.0100 ####[facility] [address] [place], [address] MCV Normal 80-94 [facility] Comment on above: Result Comment: DUPL ICATE ORDER Performed By: #### L 100.0100 ####[facility] [address] [place], [address] NEUT% Normal 47-70 [facility] Comment on above: Result Comment: DUPL ICATE ORDER Performed By: #### L 100.0100 ####[facility] [address] [place], [address] PLT Normal 150-450 [facility] Comment on above: Result Comment: DUPL ICATE ORDER Performed By: #### L 100.0100 ####[facility] [address] [place], [address] RBC Normal 4.6-6.2 [facility] Comment on above: Result Comment: DUPL ICATE ORDER Performed By: #### L 100.0100 ####[facility] [address] [place], [address] RDW CV Normal 11.6-14.6 [facility] Comment on above: Result Comment: DUPL ICATE ORDER Performed By: #### L 100.0100 ####[facility] [address] [place], [address] RDW SD Normal 35.1-43.9 [facility] Comment on above: Result Comment: DUPL ICATE ORDER Performed By: #### L 100.0100 ####[facility] [address] [place], [address] WBC Normal 4.4-11.0 [facility] Comment on above: Result Comment: DUPL ICATE ORDER Performed By: #### L 100.0100 ####[facility] [address] [place], [address] CT Chest, Abd, Pelvis WO Con ton 10-26-2024 CT Chest, Abd, Pelvis WO Cont Normal [facility] Partial Thromboplast Timeon 10-26-2024 aPTT Coag (Bld) [Time] 73.6 s High 24.1-36.[address] [facility] Comment on above: Performed By: #### L 300.4310 ####[facility] [address] [place], [address] aPTT Coag (Bld) [Time] 50.3 s High 24.1-36.[address] [facility] Comment on above: Performed By: #### L 300.4310 ####[facility] [address] [place], [address] aPTT Coag (Bld) [Time] 56.4 s High 24.1-36.[address] [facility] Comment on above: Performed By: #### L 300.4310 ####[facility] [address] [place], [address] aPTT Coag (Bld) [Time] 42.9 s High 24.1-36.[address] [facility] Comment on above: Order Comment: Comme nts: heparin gtt Performed By: #### L 300.4310 ####[facility] [address] [place], [address] Platelet estimateOrdered By: Rosmery Lake on 10-26-2024 Platelets LM Ql (Bld) ADEQUATE ADEQ [facility] Platelet morphologyOrdered B y: Rosmery Lake on 10-26-2024 Platelet morphology finding Nom (Bld) GIANT [facility] Total cell countOrdered By: Rosmery Lake on 10-26-2024 Cells counted Molgen (Bld/Tiss) [#] 100 MANUAL DIFF [facility] Urine cultureOrdered By: Yael Lake on 10-26-2024 Bacteria identified Cx Nom (U) Culture exhibits no growth. [facility] ANCAon 10-25-2024 Atypical pANCA <1:20 Normal Neg:<1:20 [facility] Comment on above: Result Comment: The atypical pANCA pattern has been observed in asignificant percentage of patients with ulcerative colitis,primary sclerosing cholangitis and autoimmune hepatitis. Performed By: #### L 3400.4200, L3100.3450, L3100.5700, L3300.1200, L3100.5800 ####[facility] [address] [place], [place], [address] Cytoplasmic Ab <1:20 Normal Neg:<1:20 [facility] Comment on above: Performed By: #### L 3400.4200, L3100.3450, L3100.5700, L3300.1200, L3100.5800 ####[facility] [address] [place], [address] Perinuclear Ab. <1:20 Normal Neg:<1:20 [facility] Comment on above: Result Comment: The presence of positive fluorescence exhibiting P-ANCA orC-ANCA patterns alone is not specific for the diagnosis ofWegener's Granulomatosis (WG) or microscopic polyangiitis.Decisions about treatment should not be based solely onANCA IFA results. The International ANCA Group Consensusrecommends follow up testing of positive sera with both WI-3 and MPO-ANCA enzyme immunoassays. As many as 5% serumsamples are positive only by EIA. Ref. AM J Clin Kvanbv5238;111:507-513. Performed By: #### L 3400.4200, L3100.3450, L3100.5700, L3300.1200, L3100.5800 ####[facility] [address] [place], [address] Anti-Glomerular Basement Mem bon 10-25-2024 ANTI-GLOM BM Ab < 0.2 Normal 0.0-0.9 [facility] Comment on above: Result Comment: Perf ormed at: - [facility] [id number] Director: Krystian Oliver PhD, Phone: [phone] at: [address] [id number] Director: Julian Miller MD, Phone: [phone] Performed By: #### L 3400.4200, L3100.3450, L3100.5700, L3300.1200, L3100.5800 ####[facility] [address] [place], [address] Basic Metabolic Profile (BMP )on 10-25-2024 BUN/CRE 8.4 RATIO Low 10-20 [facility] Comment on above: Performed By: #### L 100.0100, L500.2500 ####[facility] [address] [place], [address] Calcium [Mass/Vol] 8.5 mg/dL Normal 7.6-11.0 [facility] Comment on above: Performed By: #### L 100.0100, L500.2500 ####[facility] [address] [place], [address] Chloride [Moles/Vol] 107 mmol/L Normal 98-108 [facility] Comment on above: Performed By: #### L 100.0100, L500.2500 ####[facility] [address] [place], [address] CO2 [Moles/Vol] 21.5 mmol/L Normal 21.0-32.0 [facility] Comment on above: Performed By: #### L 100.0100, L500.2500 ####[facility] [address] [place], [address] Creatinine [Mass/Vol] 6.53 mg/dL High 0.70-1.20 [facility] Comment on above: Performed By: #### L 100.0100, L500.2500 ####[facility] [address] [place], [address] ECRCL 11.62 ml/min Low 50-250 [facility] Comment on above: Performed By: #### L 100.0100, L500.2500 ####[facility] [address] [place], [address] GAP 14 Normal 5-15 [facility] Comment on above: Performed By: #### L 100.0100, L500.2500 ####[facility] [address] [place], [address] GFR/1.73 sq M.predicted among non-blacks MDRD (S/P/Bld) [Vol rate/Area] 8 mL/min/{1.73_m2} Low >60 [facility] Comment on above: Result Comment: mL/m in/1.73m2 CKD-EPI Creatinine Equation (2020) Performed By: #### L 100.0100, L500.2500 ####[facility] [address] [place], [address] Glucose [Mass/Vol] 164 mg/dL High 70-99 [facility] Comment on above: Performed By: #### L 100.0100, L500.2500 ####[facility] [address] [place], [address] Potassium [Moles/Vol] 3.4 mmol/L Normal 3.3-5.1 [facility] Comment on above: Performed By: #### L 100.0100, L500.2500 ####[facility] [address] [place], [address] Sodium [Moles/Vol] 142 mmol/L Normal 133-145 [facility] Comment on above: Performed By: #### L 100.0100, L500.2500 ####[facility] [address] [place], [address] Urea nitrogen [Mass/Vol] 55 mg/dL High 4-19 [facility] Comment on above: Performed By: #### L 100.0100, L500.2500 ####[facility] [address] [place], [address] Bedside Glucoseon 10-25-2024 FINGERSTICK GLU 148 mg/dL High 74-106 [facility] Comment on above: Result Comment: MARKY GEMENT OF PATIENT CARE PER NURSING PROTOCOL Performed By: #### L 501.080 ####[facility] [address] [place], [address] FINGERSTICK GLU 257 mg/dL High 74-106 [facility] Comment on above: Result Comment: MARKY GEMENT OF PATIENT CARE PER NURSING PROTOCOL Performed By: #### L 501.080 ####[facility] [address] [place], [address] FINGERSTICK GLU 183 mg/dL High 74-106 [facility] Comment on above: Result Comment: MARKY GEMENT OF PATIENT CARE PER NURSING PROTOCOL Performed By: #### L 501.080 ####[facility] [address] [place], [address] FINGERSTICK GLU 142 mg/dL High 74-106 [facility] Comment on above: Result Comment: MARKY GEMENT OF PATIENT CARE PER NURSING PROTOCOL Performed By: #### L 501.080 ####[facility] [address] [place], [address] Bilirubin Test strip Ql (U)O rdered By: Cece Dennis on 10-25-2024 Bilirubin Ql (U) Negative Negative [facility] Blood cultureOrdered By: Tera Dennis on 10-25-2024 Bacteria identified Cx Nom (Bld) No growth in 5 days. [facility] CBC W/Diff, Automatedon 10-07 Absolute Neut Normal 2.0-7.7 [facility] Comment on above: Order Comment: Comme nts: If not done in prior 24 hours Result Comment: Canc elled via OM: Duplicate Order Performed By: #### L 100.0100 ####[facility] [address] [place], [address] HCT Normal 40-54 [facility] Comment on above: Order Comment: Comme nts: If not done in prior 24 hours Result Comment: Canc elled via OM: Duplicate Order Performed By: #### L 100.0100 ####[facility] [address] [place], [address] HGB Normal 13.0-16.5 [facility] Comment on above: Order Comment: Comme nts: If not done in prior 24 hours Result Comment: Canc elled via OM: Duplicate Order Performed By: #### L 100.0100 ####[facility] [address] [place], [address] MCH Normal 27.0-32.0 [facility] Comment on above: Order Comment: Comme nts: If not done in prior 24 hours Result Comment: Canc elled via OM: Duplicate Order Performed By: #### L 100.0100 ####[facility] [address] [place], [address] MCHC Normal 32-36 [facility] Comment on above: Order Comment: Comme nts: If not done in prior 24 hours Result Comment: Canc elled via OM: Duplicate Order Performed By: #### L 100.0100 ####[facility] [address] [place], [address] MCV Normal 80-94 [facility] Comment on above: Order Comment: Comme nts: If not done in prior 24 hours Result Comment: Canc elled via OM: Duplicate Order Performed By: #### L 100.0100 ####[facility] [address] [place], [address] NEUT% Normal 47-70 [facility] Comment on above: Order Comment: Comme nts: If not done in prior 24 hours Result Comment: Canc elled via OM: Duplicate Order Performed By: #### L 100.0100 ####[facility] [address] [place], [address] PLT Normal 150-450 [facility] Comment on above: Order Comment: Comme nts: If not done in prior 24 hours Result Comment: Canc elled via OM: Duplicate Order Performed By: #### L 100.0100 ####[facility] [address] [place], [address] RBC Normal 4.6-6.2 [facility] Comment on above: Order Comment: Comme nts: If not done in prior 24 hours Result Comment: Canc elled via OM: Duplicate Order Performed By: #### L 100.0100 ####[facility] [address] [place], [address] RDW CV Normal 11.6-14.6 [facility] Comment on above: Order Comment: Comme nts: If not done in prior 24 hours Result Comment: Canc elled via OM: Duplicate Order Performed By: #### L 100.0100 ####[facility] [address] [place], [address] RDW SD Normal 35.1-43.9 [facility] Comment on above: Order Comment: Comme nts: If not done in prior 24 hours Result Comment: Canc elled via OM: Duplicate Order Performed By: #### L 100.0100 ####[facility] [address] [place], [address] WBC Normal 4.4-11.0 [facility] Comment on above: Order Comment: Comme nts: If not done in prior 24 hours Result Comment: Canc elled via OM: Duplicate Order Performed By: #### L 100.0100 ####[facility] [address] [place], [address] Absolute Lymph 2.06 X10 3/uL Normal 0.83-4.51 [facility] Comment on above: Performed By: #### L 100.0100, L500.2500 ####[facility] [address] [place], [address] Absolute Neut 11.8 X10 3/uL High 2.0-7.7 [facility] Comment on above: Performed By: #### L 100.0100, L500.2500 ####[facility] [address] [place], [address] RED CELL MORPH NORM C+C Normal NORM C C [facility] Comment on above: Performed By: #### L 100.0100, L500.2500 ####[facility] [address] [place], [address] Eosinophils/100 WBC (Bld) 3 % Normal 0-5 [facility] Comment on above: Performed By: #### L 100.0100, L500.2500 ####[facility] [address] [place], [address] Lymphocytes (Bld) [#/Vol] 14 10*3/uL Low 19-41 [facility] Comment on above: Performed By: #### L 100.0100, L500.2500 ####[facility] [address] [place], [address] Metamyelocytes/100 WBC (Bld) 1 % High 0-0 [facility] Comment on above: Performed By: #### L 100.0100, L500.2500 ####[facility] [address] [place], [address] MONOCYTE 2 Normal 0-10 [facility] Comment on above: Performed By: #### L 100.0100, L500.2500 ####[facility] [address] [place], [address] PLT EST ADEQUATE Normal ADEQ [facility] Comment on above: Performed By: #### L 100.0100, L500.2500 ####[facility] [address] [place], [address] SEGS 80 High 47-70 [facility] Comment on above: Performed By: #### L 100.0100, L500.2500 ####[facility] [address] [place], [address] TOTAL CELLS 100 Normal MANUAL DIFF [facility] Comment on above: Performed By: #### L 100.0100, L500.2500 ####[facility] [address] [place], [address] TOXIC GRAN 1+ Normal [facility] Comment on above: Performed By: #### L 100.0100, L500.2500 ####[facility] [address] [place], [address] Chest 1 View (Portable)on Chest 1 View (Portable) Normal [facility] Complement C3on 10-25-2024 COMP C3 178 mg/dL High 82-167 [facility] Comment on above: Performed By: #### L 3400.4200, L3100.3450, L3100.5700, L3300.1200, L3100.5800 ####[facility] [address] [place], [address] Complement C4on 10-25-2024 COMPLEMENT, C4 34 mg/dL Normal 12-38 [facility] Comment on above: Performed By: #### L 3400.4200, L3100.3450, L3100.5700, L3300.1200, L3100.5800 ####[facility] [address] [place], [address] Erythrocyte morphology asses smentOrdered By: Rosmery Lake on 10-25-2024 RBC morphology finding Nom (Bld) NORM C+C NORMAL NORM C&C [facility] Ketones Test strip Ql (U)Ord ered By: Cece Dennis on 10-25-2024 Ketones Ql (U) Negative Negative [facility] L509.7001on 10-25-2024 Procalcitonin 0.33 ng/mL High <=0.10 [facility] Comment on above: Result Comment: Inte rpretation:<0.10-0.25 ng/mL: Antibiotic therapy discouraged. Bacterialinfection unlikely.0.25-0.50 ng/mL: Antibiotic therapy encouraged. Bacterialinfection possible.>0.50 ng/mL: Antibiotic therapy strongly encouraged.Suggestive of presence of bacterial infection.PCT should always be interpreted in the clinical context ofthe patient. Therefore, clinicians should use the PCTresults in conjunction with other laboratory findings andclinical signs of the patient. Performed By: #### L 509.7001 ####[facility] [address] [place], [place], [address] Mucus LM Ql (Urine sed)Order ed By: Cece Dennis on 10-25-2024 Mucus Ql (Urine sed) 0 SEEN /hpf [facility] Nitrite Test strip Ql (U)Ord ered By: Cece [facility] on 10-25-2024 Nitrite Ql (U) Negative Negative [facility] Partial Thromboplast Timeon 10-25-2024 aPTT Coag (Bld) [Time] 28.9 s Normal 24.1-36.[address] [facility] Comment on above: Performed By: #### L 300.4310 ####[facility] [address] [place], [place], [address] Procalcitonin [Mass/volume] in Serum or Plasma by ImmunoassayOrdered By: Rosmery Lake on 10-25-2024 Procalcitonin IA [Mass/Vol] 0.33 ng/mL High <0.11 [facility] Protein Electroph, Son 10-25 Albumin [Mass/Vol] 2.4 g/dL Low 2.9-4.4 [facility] Comment on above: Performed By: #### L 3400.4200, L3100.3450, L3100.5700, L3300.1200, L3100.5800 ####[facility] [address] [place], [address] Albumin/Globulin [Mass ratio] 0.7 {ratio} Normal 0.7-1.7 [facility] Comment on above: Performed By: #### L 3400.4200, L3100.3450, L3100.5700, L3300.1200, L3100.5800 ####[facility] [address] [place], [address] ALPHA-1 GLOBUL 0.3 g/dL Normal 0.0-0.4 [facility] Comment on above: Performed By: #### L 3400.4200, L3100.3450, L3100.5700, L3300.1200, L3100.5800 ####[facility] [address] [place], [address] ALPHA-2 GLOBUL 1.2 g/dL High 0.4-1.0 [facility] Comment on above: Performed By: #### L 3400.4200, L3100.3450, L3100.5700, L3300.1200, L3100.5800 ####[facility] [address] [place], [address] BETA GLOBULIN 1.0 g/dL Normal 0.7-1.3 [facility] Comment on above: Performed By: #### L 3400.4200, L3100.3450, L3100.5700, L3300.1200, L3100.5800 ####[facility] [address] [place], [address] GAMMA GLOBULIN 1.0 g/dL Normal 0.4-1.8 [facility] Comment on above: Performed By: #### L 3400.4200, L3100.3450, L3100.5700, L3300.1200, L3100.5800 ####[facility] [address] [place], [address] Globulin (S) [Mass/Vol] 3.6 g/dL Normal 2.2-3.9 [facility] Comment on above: Performed By: #### L 3400.4200, L3100.3450, L3100.5700, L3300.1200, L3100.5800 ####[facility] [address] [place], [place], [address] INTERPRETATION Comment Normal . [facility] Comment on above: Result Comment: Prot ein electrophoresis scan will follow via computer,mail, or wallpaper inspector and shipper delivery. Performed By: #### L 3400.4200, L3100.3450, L3100.5700, L3300.1200, L3100.5800 ####[facility] [address] [place], [address] M-SPIKE Comment: Normal Not Observed [facility] Comment on above: Result Comment: M-sp delon #1 = 0.4 g/dlM-spike #2 = 0.2 g/dl Performed By: #### L 3400.4200, L3100.3450, L3100.5700, L3300.1200, L3100.5800 ####[facility] [address] [place], [address] NOTE: Comment Normal . [facility] Comment on above: Result Comment: The SPE pattern demonstrates two peaks in the beta-gammaregion which may represent monoclonal protein. A biclonalgammopathy may be confirmed by immunofixation, as well asevaluation of the urine for the presence of Bence-Jonesprotein. Performed By: #### L 3400.4200, L3100.3450, L3100.5700, L3300.1200, L3100.5800 ####[facility] [address] [place], [address] Protein [Mass/Vol] 6.0 g/dL Normal 6.0-8.5 [facility] Comment on above: Performed By: #### L 3400.4200, L3100.3450, L3100.5700, L3300.1200, L3100.5800 ####[facility] [address] [place], [address] Protein Test strip Ql (U)Ord ered By: Cece Dennsi on 10-25-2024 Protein Ql (U) 100 mg/dl High Negative [facility] Squamous epithelial cells de tection in urine sediment by light microscopyOrdered By: Cece Dennis on 10-25-2024 Epithelial cells.squamous LM Ql (Urine sed) 0-5 SEEN /hpf 0-5 [facility] Toxic leukocyte granulation detectionOrdered By: Rosmery Lake on 10-25-2024 Toxic granules LM Ql (Bld) 1+ [facility] Urinalysis, Completeon 10-25 EPI,SQUAMOUS 0-5 SEEN Normal 0-5 [facility] Comment on above: Order Comment: DOREEN TER SPECIMEN Performed By: #### L 400.0001 ####[facility] [address] [place], [address] RBC > 100 SEEN Normal 0-5 [facility] Comment on above: Order Comment: DOREEN TER SPECIMEN Performed By: #### L 400.0001 ####[facility] [address] [place], [address] WBC 10-25 SEEN Normal 0-5 [facility] Comment on above: Order Comment: DOREEN TER SPECIMEN Performed By: #### L 400.0001 ####[facility] [address] [place], [address] BACTERIA 0 SEEN Normal None Seen [facility] Comment on above: Order Comment: DOREEN TER SPECIMEN Performed By: #### L 400.0001 ####[facility] [address] [place], [address] Mucus Ql (Urine sed) 0 SEEN Normal [facility] Comment on above: Order Comment: DOREEN TER SPECIMEN Performed By: #### L 400.0001 ####[facility] [address] [place], [address] Urine clarityOrdered By: Tera Dennis on 10-25-2024 Clarity (U) Clear Clear [facility] Urine color determinationOrd ered By: Cece Dennis on 10-25-2024 Color (U) Yellow Yellow [facility] Urine glucose detectionOrder ed By: Cece Dennis on 10-25-2024 Glucose Ql (U) Normal mg/dl Normal [facility] Urine leukocyte esterase det ection by dipstickOrdered By: Cece Dennis on 10-25-2024 Leukocyte esterase Test strip Ql (U) 500 /ul High Negative [facility] Urine pHOrdered By: Cece Schulz obothnargis on 10-25-2024 pH (U) 6.0 [pH] 5.0 - 8.0 [facility] Urine sediment bacteria coun t by microscopy (number/high power field)Ordered By: Cece Dennis on 10-25-2024 Bacteria LM.HPF (Urine sed) [#/Area] 0 /[HPF] None Seen [facility] Urine specific gravity measu rementOrdered By: Cece Dennis on 10-25-2024 Specific gravity (U) [Rel density] 1.010 1.002-1.030 [facility] Urine urobilinogen measureme ntOrdered By: Cecesantiago Dennis on 10-25-2024 Urobilinogen Ql (U) Normal mg/dl Normal [facility] White blood cell countOrdere d By: Cece Dennis on 10-25-2024 White blood cell count 10-25 SEEN /hpf 0-5 [facility] Basic Metabolic Profile (BMP )on 10-24-2024 BUN/CRE 8.5 RATIO Low 10-20 [facility] Comment on above: Performed By: #### L 100.0100, L500.2500 ####[facility] [address] [place], [address] Calcium [Mass/Vol] 8.6 mg/dL Normal 7.6-11.0 [facility] Comment on above: Performed By: #### L 100.0100, L500.2500 ####[facility] [address] [place], [address] Chloride [Moles/Vol] 106 mmol/L Normal 98-108 [facility] Comment on above: Performed By: #### L 100.0100, L500.2500 ####[facility] [address] [place], [address] CO2 [Moles/Vol] 22.2 mmol/L Normal 21.0-32.0 [facility] Comment on above: Performed By: #### L 100.0100, L500.2500 ####[facility] [address] [place], [address] Creatinine [Mass/Vol] 5.62 mg/dL High 0.70-1.20 [facility] Comment on above: Performed By: #### L 100.0100, L500.2500 ####[facility] [address] [place], [address] ECRCL 12.45 ml/min Low 50-250 [facility] Comment on above: Performed By: #### L 100.0100, L500.2500 ####[facility] [address] [place], [address] GAP 14 Normal 5-15 [facility] Comment on above: Performed By: #### L 100.0100, L500.2500 ####[facility] [address] [place], [address] GFR/1.73 sq M.predicted among non-blacks MDRD (S/P/Bld) [Vol rate/Area] 10 mL/min/{1.73_m2} Low >[address] [facility] Comment on above: Result Comment: mL/m in/1.73m2 CKD-EPI Creatinine Equation (2020) Performed By: #### L 100.0100, L500.2500 ####[facility] [address] [place], [address] Glucose [Mass/Vol] 171 mg/dL High 70-99 [facility] Comment on above: Performed By: #### L 100.0100, L500.2500 ####[facility] [address] [place], [address] Potassium [Moles/Vol] 3.6 mmol/L Normal 3.3-5.1 [facility] Comment on above: Performed By: #### L 100.0100, L500.2500 ####[facility] [address] [place], [address] Sodium [Moles/Vol] 141 mmol/L Normal 133-145 [facility] Comment on above: Performed By: #### L 100.0100, L500.2500 ####[facility] [address] [place], [address] Urea nitrogen [Mass/Vol] 48 mg/dL High 4-19 [facility] Comment on above: Performed By: #### L 100.0100, L500.2500 ####[facility] [address] [place], [address] Bedside Glucoseon 10-24-2024 FINGERSTICK GLU 163 mg/dL High 74-106 [facility] Comment on above: Result Comment: MARKY GEMENT OF PATIENT CARE PER NURSING PROTOCOL Performed By: #### L 501.080 ####[facility] [address] [place], [address] FINGERSTICK GLU 201 mg/dL High 74-106 [facility] Comment on above: Result Comment: MARKY GEMENT OF PATIENT CARE PER NURSING PROTOCOL Performed By: #### L 501.080 ####[facility] [address] [place], [address] FINGERSTICK GLU 213 mg/dL High 74-106 [facility] Comment on above: Result Comment: MARKY GEMENT OF PATIENT CARE PER NURSING PROTOCOL Performed By: #### L 501.080 ####[facility] [address] [place], [address] FINGERSTICK GLU 141 mg/dL High 74-106 [facility] Comment on above: Result Comment: MARKY PATEL OF PATIENT CARE PER NURSING PROTOCOL Performed By: #### L 501.080 ####[facility] [address] [place], [address] CBC W/Diff, Automatedon - Anisocytosis Ql (Bld) 1+ Normal [facility] Comment on above: Performed By: #### L 100.0100, L500.2500 ####[facility] [address] [place], [address] OVALOCYTE 1+ Normal [facility] Comment on above: Performed By: #### L 100.0100, L500.2500 ####[facility] [address] [place], [address] PLT EST ADEQUATE Normal ADEQ [facility] Comment on above: Performed By: #### L 100.0100, L500.2500 ####[facility] [address] [place], [address] Absolute Lymph 1.46 X10 3/uL Normal 0.83-4.51 [facility] Comment on above: Performed By: #### L 100.0100, L500.2500 ####[facility] [address] [place], [address] Absolute Neut 9.0 X10 3/uL High 2.0-7.7 [facility] Comment on above: Performed By: #### L 100.0100, L500.2500 ####[facility] [address] [place], [address] Eosinophils/100 WBC (Bld) 6 % High 0-5 [facility] Comment on above: Performed By: #### L 100.0100, L500.2500 ####[facility] [address] [place], [address] Lymphocytes (Bld) [#/Vol] 12 10*3/uL Low 19-41 [facility] Comment on above: Performed By: #### L 100.0100, L500.2500 ####[facility] [address] [place], [address] META 3 High 0-1 [facility] Comment on above: Performed By: #### L 100.0100, L500.2500 ####[facility] [address] [place], [address] Metamyelocytes/100 WBC (Bld) 1 % High 0-0 [facility] Comment on above: Performed By: #### L 100.0100, L500.2500 ####[facility] [address] [place], [address] MONOCYTE 4 Normal 0-10 [facility] Comment on above: Performed By: #### L 100.0100, L500.2500 ####[facility] [address] [place], [address] SEGS 74 High 47-70 [facility] Comment on above: Performed By: #### L 100.0100, L500.2500 ####[facility] [address] [place], [address] TOTAL CELLS 100 Normal MANUAL DIFF [facility] Comment on above: Performed By: #### L 100.0100, L500.2500 ####[facility] [address] [place], [address] Chest 1 View (Portable)on Chest 1 View (Portable) Normal [facility] No Panel InformationOrdered By: Rosmery Lake on 10-24-2024 1+ [facility] Ovalocyte detectionOrdered B y: Rosmery Lake on 10-24-2024 Ovalocytes LM Ql (Bld) 1+ [facility] Partial Thromboplast Timeon 10-24-2024 aPTT Coag (Bld) [Time] 44.9 s High 24.1-36.[address] [facility] Comment on above: Performed By: #### L 300.4310 ####[facility] [address] [place], [address] aPTT Coag (Bld) [Time] 55.2 s High 24.1-36.[address] [facility] Comment on above: Performed By: #### L 300.4310 ####[facility] [address] [place], [address] aPTT Coag (Bld) [Time] 54.1 s High 24.1-36.[address] [facility] Comment on above: Performed By: #### L 300.4310 ####[facility] [address] [place], [address] Anti-dsDNA Abon 10-23-2024 ANTI-DNA (DS)AB <1 Normal 0-9 [facility] Comment on above: Result Comment: Nega tive <5 Equivocal 5 - 9 Positive >9Performed at: [facility] [address] Director: Krystian Oliver PhD, Phone: [phone] Performed By: #### L 6040.2157 ####[facility] [address] [place], [address] Basic Metabolic Profile (BMP )on 10-23-2024 BUN/CRE 9.9 RATIO Low 10-20 [facility] Comment on above: Performed By: #### L 100.0100, L500.2500 ####[facility] [address] [place], [address] Calcium [Mass/Vol] 8.1 mg/dL Normal 7.6-11.0 [facility] Comment on above: Performed By: #### L 100.0100, L500.2500 ####[facility] [address] [place], [address] Chloride [Moles/Vol] 105 mmol/L Normal 98-108 [facility] Comment on above: Performed By: #### L 100.0100, L500.2500 ####[facility] [address] [place], [address] CO2 [Moles/Vol] 20.8 mmol/L Low 21.0-32.0 [facility] Comment on above: Performed By: #### L 100.0100, L500.2500 ####[facility] [address] [place], [address] Creatinine [Mass/Vol] 7.11 mg/dL High 0.70-1.20 [facility] Comment on above: Performed By: #### L 100.0100, L500.2500 ####[facility] [address] [place], [address] ECRCL 9.84 ml/min Invalid Interpretation Code 50-250 [facility] Comment on above: Performed By: #### L 100.0100, L500.2500 ####[facility] [address] [place], [address] GAP 15 Normal 5-15 [facility] Comment on above: Performed By: #### L 100.0100, L500.2500 ####[facility] [address] [place], [address] GFR/1.73 sq M.predicted among non-blacks MDRD (S/P/Bld) [Vol rate/Area] 8 mL/min/{1.73_m2} Low >60 [facility] Comment on above: Result Comment: mL/m in/1.73m2 CKD-EPI Creatinine Equation (2020) Performed By: #### L 100.0100, L500.2500 ####[facility] [address] [place], [address] Glucose [Mass/Vol] 166 mg/dL High 70-99 [facility] Comment on above: Performed By: #### L 100.0100, L500.2500 ####[facility] [address] [place], [address] Potassium [Moles/Vol] 3.4 mmol/L Normal 3.3-5.1 [facility] Comment on above: Performed By: #### L 100.0100, L500.2500 ####[facility] [address] [place], [address] Sodium [Moles/Vol] 141 mmol/L Normal 133-145 [facility] Comment on above: Performed By: #### L 100.0100, L500.2500 ####[facility] [address] [place], [address] Urea nitrogen [Mass/Vol] 70 mg/dL High 4-19 [facility] Comment on above: Performed By: #### L 100.0100, L500.2500 ####[facility] [address] [place], [address] Bedside Glucoseon 10-23-2024 FINGERSTICK GLU 196 mg/dL High 74-106 [facility] Comment on above: Result Comment: MARKY GEMENT OF PATIENT CARE PER NURSING PROTOCOL Performed By: #### L 501.080 ####[facility] [address] [place], [address] FINGERSTICK GLU 145 mg/dL High 74-106 [facility] Comment on above: Result Comment: MARKY GEMENT OF PATIENT CARE PER NURSING PROTOCOL Performed By: #### L 501.080 ####[facility] [address] [place], [address] FINGERSTICK GLU 181 mg/dL High 74-106 [facility] Comment on above: Result Comment: MARKY GEMENT OF PATIENT CARE PER NURSING PROTOCOL Performed By: #### L 501.080 ####[facility] [address] [place], [address] FINGERSTICK GLU 147 mg/dL High 74-106 [facility] Comment on above: Result Comment: MARKY PATEL OF PATIENT CARE PER NURSING PROTOCOL Performed By: #### L 501.080 ####[facility] [address] [place], [address] Modified Barium Swallow Stud yon 10-23-2024 Modified Barium Swallow Study Normal [facility] Partial Thromboplast Timeon 10-23-2024 aPTT Coag (Bld) [Time] 113.7 s Invalid Interpretation Code 24.1-36.2 [facility] Comment on above: Result Comment: CRIT ICAL VALUE CALLED TO EDD HAGEN10/23/[id number] Nataliya Gupta.RESULTS READ BACK BY SAME. Performed By: #### L 387.4402 ####[facility] [address] [place], [address] aPTT Coag (Bld) [Time] 39.8 s High 24.1-36.[address] [facility] Comment on above: Performed By: #### L 833.9180 ####[facility] [address] [place], [place], [address] aPTT Coag (Bld) [Time] 82.7 s High 24.1-36.[address] [facility] Comment on above: Performed By: #### L 043.4310 ####[facility] [address] [place], [place], [address] Review by pathologistOrdered By: Rosmery Lake on 10-23-2024 Pathologist review Ahmet (Unsp spec) [Interp] May [facility] Pathologist review Ahmet (Unsp spec) [Interp] Reviewed [facility] Albumin Elph [Mass/Vol]Order ed By: Rodney Chavez on 10-22-2024 Albumin [Mass/Vol] 2.4 g/dL Low 2.9-4.4 [facility] Basic Metabolic Profile (BMP )on 10-22-2024 BUN/CRE 10.2 RATIO Normal 10-20 [facility] Comment on above: Performed By: #### L 100.0100, L500.2500 ####[facility] [address] [place], [address] Calcium [Mass/Vol] 8.1 mg/dL Normal 7.6-11.0 [facility] Comment on above: Performed By: #### L 100.0100, L500.2500 ####[facility] [address] [place], [address] Chloride [Moles/Vol] 106 mmol/L Normal 98-108 [facility] Comment on above: Performed By: #### L 100.0100, L500.2500 ####[facility] [address] [place], [address] CO2 [Moles/Vol] 17.6 mmol/L Low 21.0-32.0 [facility] Comment on above: Performed By: #### L 100.0100, L500.2500 ####[facility] [address] [place], [address] Creatinine [Mass/Vol] 9.55 mg/dL Invalid Interpretation Code 0.70-1.20 [facility] Comment on above: Result Comment: Crit ical Result(s) Called at 0550: by: TRISTIN RIVERA. ??Results read back by same. Performed By: #### L 100.0100, L500.2500 ####[facility] [address] [place], [address] ECRCL 7.33 ml/min Invalid Interpretation Code 50-250 [facility] Comment on above: Performed By: #### L 100.0100, L500.2500 ####[facility] [address] [place], [address] GAP 18 High 5-15 [facility] Comment on above: Performed By: #### L 100.0100, L500.2500 ####[facility] [address] [place], [address] GFR/1.73 sq M.predicted among non-blacks MDRD (S/P/Bld) [Vol rate/Area] 5 mL/min/{1.73_m2} Low >60 [facility] Comment on above: Result Comment: mL/m in/1.73m2 CKD-EPI Creatinine Equation (2020) Performed By: #### L 100.0100, L500.2500 ####[facility] [address] [place], [address] Glucose [Mass/Vol] 169 mg/dL High 70-99 [facility] Comment on above: Performed By: #### L 100.0100, L500.2500 ####[facility] [address] [place], [address] Potassium [Moles/Vol] 3.7 mmol/L Normal 3.3-5.1 [facility] Comment on above: Performed By: #### L 100.0100, L500.2500 ####[facility] [address] [place], [address] Sodium [Moles/Vol] 142 mmol/L Normal 133-145 [facility] Comment on above: Performed By: #### L 100.0100, L500.2500 ####[facility] [address] [place], [address] Urea nitrogen [Mass/Vol] 98 mg/dL High 4-19 [facility] Comment on above: Performed By: #### L 100.0100, L500.2500 ####[facility] [address] [place], [address] Bedside Glucoseon 10-22-2024 FINGERSTICK GLU 177 mg/dL High 74-106 [facility] Comment on above: Result Comment: MARKY PATEL OF PATIENT CARE PER NURSING PROTOCOL Performed By: #### L 501.080 ####[facility] [address] [place], [address] FINGERSTICK GLU 175 mg/dL High 74-106 [facility] Comment on above: Result Comment: MARKY GEMENT OF PATIENT CARE PER NURSING PROTOCOL Performed By: #### L 501.080 ####[facility] [address] [place], [address] FINGERSTICK GLU 121 mg/dL High 74-106 [facility] Comment on above: Result Comment: MARKY GEMENT OF PATIENT CARE PER NURSING PROTOCOL Performed By: #### L 501.080 ####[facility] [address] [place], [address] FINGERSTICK GLU 223 mg/dL High 74-106 [facility] Comment on above: Result Comment: MARKY GEMENT OF PATIENT CARE PER NURSING PROTOCOL Performed By: #### L 501.080 ####[facility] [address] [place], [address] FINGERSTICK GLU 148 mg/dL High 74-106 [facility] Comment on above: Result Comment: MARKY GEMENT OF PATIENT CARE PER NURSING PROTOCOL Performed By: #### L 501.080 ####[facility] [address] [place], [address] CBC W/Diff, Automatedon 10-07 Absolute Lymph 1.21 X10 3/uL Normal 0.83-4.51 [facility] Comment on above: Performed By: #### L 100.0100, L500.2500 ####[facility] [address] [place], [address] Absolute Neut 10.9 X10 3/uL High 2.0-7.7 [facility] Comment on above: Performed By: #### L 100.0100, L500.2500 ####[facility] [address] [place], [address] ENTERIC PATHOGEN PANEL STOOL on 10-22-2024 EP PANEL Normal [facility] Comment on above: Performed By: #### M 100.6796, M100.637 ####[facility] [address] [place], [place], [address] Kidney and Bladderon 025 Kidney and Bladder Normal [facility] L3890.6102on 10-22-2024 HEP B Surf Ag Non-Reactive Normal Nonreactive [facility] Comment on above: Order Comment: Reaso n for Exam: prob need for outpt dialysis Result Comment: Reac tive: Presumptive evidence of HBV. Repeatedly reactivesamples must be confirmed using a neutralization test([employer] HBsAg Confirmatory Test)Non-Reactive: HBsAg not detected; does not exclude thepossibility of exposure to HBV Performed By: #### L 3890.6102 ####[facility] [address] [place], [address] Laboratory - Microbiology an d Antimicrobial susceptibilityOrdered By: Rodney Chavez on 10-22-2024 HBV surface Ag Ql (S) Non-Reactive Nonreactive [facility] No Panel InformationOrdered By: Rodney Chavez on 10-22-2024 Addendum Document Comment . [facility] Partial Thromboplast Timeon 10-22-2024 aPTT Coag (Bld) [Time] 48.4 s High 24.1-36.[address] [facility] Comment on above: Performed By: #### L 300.8700 ####[facility] [address] [place], [place], [address] aPTT Coag (Bld) [Time] 84.9 s High 24.1-36.[address] [facility] Comment on above: Performed By: #### L 300.9070 ####[facility] [address] [place], [place], [address] aPTT Coag (Bld) [Time] 54.5 s High 24.1-36.[address] [facility] Comment on above: Performed By: #### L 300.4310 ####[facility] [address] [place], [place], [address] Protein Fractions Elph [Inte rp]Ordered By: Rodney Chavez on 10-22-2024 Protein Fractions [Interp] Comment . [facility] Serum DNA double strand anti body assay (units/volume)Ordered By: Rodney Chavez on 10-22-2024 DNA double strand Ab Qn (S) [IU]/mL 0-9 [facility] Serum albumin to globulin ra channing by protein electrophoresisOrdered By: Rodney Chavez on 10-22-2024 Albumin/Globulin Elph [Mass ratio] 0.7 0.7-1.7 [facility] Serum classic neutrophil cyt oplasmic antibody assay (units/volume)Ordered By: Rodney Chavez on 10-22-2024 Neutrophil cytoplasmic Ab.classic Qn (S) <1:20 titer Neg:<1:20 [facility] Serum globulin measurement ( mass/volume)Ordered By: Rodney Chavez on 10-22-2024 Globulin (S) [Mass/Vol] 3.6 g/dL 2.2-3.9 [facility] Serum glomerular basement me mbrane antibody assay (units/volume)Ordered By: Rodney Chavez on 10-22-2024 Glomerular basement membrane Ab Qn (S) < 0.2 units 0.0-0.9 [facility] Serum or plasma beta globuli n measurement by electrophoresis (mass/volume)Ordered By: Rodney Chavez on 10-22-2024 Beta globulin Elph [Mass/Vol] 1.0 g/dL 0.7-1.3 [facility] Serum or plasma complement C 4 measurement (mass/volume)Ordered By: Rodney Chavez on 10-22-2024 Complement C4 [Mass/Vol] 34 mg/dL 12-38 [facility] Serum or plasma protein makenzie urement (mass/volume)Ordered By: Rodney Chavez on 10-22-2024 Protein [Mass/Vol] 6.0 g/dL 6.0-8.5 [facility] Serum or plasma protein mono clonal measurement by electrophoresis (mass/volume)Ordered By: Rodney Chavez on 10-22-2024 Protein.monoclonal Elph [Mass/Vol] Comment: g/dL Not Observed [facility] Serum perinuclear neutrophil cytoplasmic antibody titer by immunofluorescenceOrdered By: Rodney Chavez on 10-22-2024 Neutrophil cytoplasmic Ab.perinuclear IF (S) [Titer] <1:20 titer Neg:<1:20 [facility] Basic Metabolic Profile (BMP )on 10-21-2024 BUN/CRE 11.5 RATIO Normal 10-20 [facility] Comment on above: Performed By: #### L 500.2500, L100.0100 ####[facility] [address] [place], [address] Calcium [Mass/Vol] 8.2 mg/dL Normal 7.6-11.0 [facility] Comment on above: Performed By: #### L 500.2500, L100.0100 ####[facility] [address] [place], [address] Chloride [Moles/Vol] 106 mmol/L Normal 98-108 [facility] Comment on above: Performed By: #### L 500.2500, L100.0100 ####[facility] [address] [place], [address] CO2 [Moles/Vol] 17.7 mmol/L Low 21.0-32.0 [facility] Comment on above: Performed By: #### L 500.2500, L100.0100 ####[facility] [address] [place], [address] Creatinine [Mass/Vol] 8.28 mg/dL Invalid Interpretation Code 0.70-1.20 [facility] Comment on above: Result Comment: Crit ical Result(s) Called at 0555: by: SUE LOO??Results read back by same. Performed By: #### L 500.2500, L100.0100 ####[facility] [address] [place], [address] ECRCL 8.45 ml/min Invalid Interpretation Code 50-250 [facility] Comment on above: Performed By: #### L 500.2500, L100.0100 ####[facility] [address] [place], [address] GAP 17 High 5-15 [facility] Comment on above: Performed By: #### L 500.2500, L100.0100 ####[facility] [address] [place], [address] GFR/1.73 sq M.predicted among non-blacks MDRD (S/P/Bld) [Vol rate/Area] 6 mL/min/{1.73_m2} Low >60 [facility] Comment on above: Result Comment: mL/m in/1.73m2 CKD-EPI Creatinine Equation (2020) Performed By: #### L 500.2500, L100.0100 ####[facility] [address] [place], [address] Glucose [Mass/Vol] 182 mg/dL High 70-99 [facility] Comment on above: Performed By: #### L 500.2500, L100.0100 ####[facility] [address] [place], [address] Potassium [Moles/Vol] 3.6 mmol/L Normal 3.3-5.1 [facility] Comment on above: Performed By: #### L 500.2500, L100.0100 ####[facility] [address] [place], [address] Sodium [Moles/Vol] 140 mmol/L Normal 133-145 [facility] Comment on above: Performed By: #### L 500.2500, L100.0100 ####[facility] [address] [place], [address] Urea nitrogen [Mass/Vol] 95 mg/dL High 4-19 [facility] Comment on above: Performed By: #### L 500.2500, L100.0100 ####[facility] [address] [place], [address] Bedside Glucoseon 10-21-2024 FINGERSTICK GLU 227 mg/dL High 74-106 [facility] Comment on above: Result Comment: MARKY GEMENT OF PATIENT CARE PER NURSING PROTOCOL Performed By: #### L 501.080 ####[facility] [address] [place], [address] FINGERSTICK GLU 142 mg/dL High 74-106 [facility] Comment on above: Result Comment: MARKY GEMENT OF PATIENT CARE PER NURSING PROTOCOL Performed By: #### L 501.080 ####[facility] [address] [place], [address] FINGERSTICK GLU 134 mg/dL High 74-106 [facility] Comment on above: Result Comment: MARKY GEMENT OF PATIENT CARE PER NURSING PROTOCOL Performed By: #### L 501.080 ####[facility] [address] [place], [address] FINGERSTICK GLU 169 mg/dL High 74-106 [facility] Comment on above: Result Comment: MARKY GEMENT OF PATIENT CARE PER NURSING PROTOCOL Performed By: #### L 501.080 ####[facility] [address] [place], [address] CBC W/Diff, Automatedon 10-07 Absolute Lymph 0.92 X10 3/uL Normal 0.83-4.51 [facility] Comment on above: Performed By: #### L 500.2500, L100.0100 ####[facility] [address] [place], [address] Absolute Neut 10.9 X10 3/uL High 2.0-7.7 [facility] Comment on above: Performed By: #### L 500.2500, L100.0100 ####[facility] [address] [place], [address] Basophils/100 WBC (Bld) 0.4 % Normal 0-1 [facility] Comment on above: Performed By: #### L 500.2500, L100.0100 ####[facility] [address] [place], [address] Eosinophils/100 WBC (Bld) 2.8 % Normal 0-5 [facility] Comment on above: Performed By: #### L 500.2500, L100.0100 ####[facility] [address] [place], [address] Erythrocyte distribution width (RBC) [Ratio] 13.4 % Normal 11.6-14.6 [facility] Comment on above: Performed By: #### L 500.2500, L100.0100 ####[facility] [address] [place], [address] Hematocrit (Bld) [Volume fraction] 28.7 % Low 40-54 [facility] Comment on above: Performed By: #### L 500.2500, L100.0100 ####[facility] [address] [place], [address] Hemoglobin (Bld) [Mass/Vol] 9.8 g/dL Low 13.0-16.5 [facility] Comment on above: Performed By: #### L 500.2500, L100.0100 ####[facility] [address] [place], [address] IG% 1.800 High 0.0-0.9 [facility] Comment on above: Result Comment: IG% - Immature Granulocytes (promyelocytes, myelocytes andmetamyelocytes) > 1% indicates that a LEFT SHIFT is Present. Performed By: #### L 500.2500, L100.0100 ####[facility] [address] [place], [address] Lymphocytes/100 WBC (Bld) 6.8 % Low 19-41 [facility] Comment on above: Performed By: #### L 500.2500, L100.0100 ####[facility] [address] [place], [address] MCH (RBC) [Entitic mass] 30.5 pg Normal 27.0-32.0 [facility] Comment on above: Performed By: #### L 500.2500, L100.0100 ####[facility] [address] [place], [address] MCHC (RBC) [Mass/Vol] 34.1 g/dL Normal 32-36 [facility] Comment on above: Performed By: #### L 500.2500, L100.0100 ####[facility] [address] [place], [address] MCV (RBC) [Entitic vol] 89.4 fL Normal 80-94 [facility] Comment on above: Performed By: #### L 500.2500, L100.0100 ####[facility] [address] [place], [address] Monocytes/100 WBC (Bld) 7.0 % Normal 0-10 [facility] Comment on above: Performed By: #### L 500.2500, L100.0100 ####[facility] [address] [place], [address] Neutrophils/100 WBC (Bld) 81.2 % High 47-70 [facility] Comment on above: Performed By: #### L 500.2500, L100.0100 ####[facility] [address] [place], [address] Nucleated RBC (Bld) [#/Vol] 0 10*3/uL Normal 0-5 [facility] Comment on above: Performed By: #### L 500.2500, L100.0100 ####[facility] [address] [place], [address] Platelet mean volume (Bld) [Entitic vol] 11.1 fL Normal 6.2-12.0 [facility] Comment on above: Performed By: #### L 500.2500, L100.0100 ####[facility] [address] [place], [address] Platelets (Bld) [#/Vol] 266 10*3/uL Normal 150-450 [facility] Comment on above: Performed By: #### L 500.2500, L100.0100 ####[facility] [address] [place], [address] RBC (Bld) [#/Vol] 3.21 10*6/uL Low 4.6-6.2 [facility] Comment on above: Performed By: #### L 500.2500, L100.0100 ####[facility] [address] [place], [address] RDW SD 44.2 fl High 35.1-43.9 [facility] Comment on above: Performed By: #### L 500.2500, L100.0100 ####[facility] [address] [place], [address] WBC (Bld) [#/Vol] 13.5 10*3/uL High 4.4-11.0 [facility] Comment on above: Performed By: #### L 500.2500, L100.0100 ####[facility] [address] [place], [address] CDIFF (PCR)on 10-21-2024 CDIFF Is the patient receiving laxatives? N New/unexplained onset of 3 or more stools in past 24 hrs? Y Pending 027 027 NAP1-B1 Presumptive Negative *for epidemiolologic???use C. Diff PCR Negative- No toxigenic C. Diff Detected Normal [facility] Comment on above: Performed By: #### M 100.6796, M100.637 ####[facility] [address], [address] CXR for Line Placementon CXR for Line Placement Normal [facility] Clostridium difficile detect ion by polymerase chain reactionOrdered By: Rosmery Lake on 10-21-2024 C. difficile DNA ADELA+probe Ql (Unsp spec) [facility] Consultation - Surgicalon Consultation - Surgical Normal [facility] Operative Reporton Operative Report Normal [facility] Partial Thromboplast Timeon 10-21-2024 aPTT Coag (Bld) [Time] 82.2 s High 24.1-36.[address] [facility] Comment on above: Performed By: #### L 300.4310 ####[facility] [address] [place], [address] Assessment of wrist artery p atency prior to arterial punctureOrdered By: Nathalia Garcia on 10-20-2024 Arterial patency Wrist artery --pre arterial puncture N/A [facility] Basic Metabolic Profile (BMP )on 10-20-2024 BUN Normal 4-19 [facility] Comment on above: Result Comment: Canc elled via OM: Order Changed Performed By: #### L 500.2500 ####[facility] [address] [place], [address] BUN/CRE Normal 10-20 [facility] Comment on above: Result Comment: Canc elled via OM: Order Changed Performed By: #### L 500.2500 ####[facility] [address] [place], [address] Calcium Normal 7.6-11.0 [facility] Comment on above: Result Comment: Canc elled via OM: Order Changed Performed By: #### L 500.2500 ####[facility] [address] [place], [address] CL Normal 98-108 [facility] Comment on above: Result Comment: Canc elled via OM: Order Changed Performed By: #### L 500.2500 ####[facility] [address] [place], [address] CO2 Normal 21.0-32.0 [facility] Comment on above: Result Comment: Canc elled via OM: Order Changed Performed By: #### L 500.2500 ####[facility] [address] [place], [address] CREAT,SERUM Normal 0.70-1.20 [facility] Comment on above: Result Comment: Canc elled via OM: Order Changed Performed By: #### L 500.2500 ####[facility] [address] [place], [address] eGFR Normal >60 [facility] Comment on above: Result Comment: Canc elled via OM: Order Changed Performed By: #### L 500.2500 ####[facility] [address] [place], [address] GAP Normal 5-15 [facility] Comment on above: Result Comment: Canc elled via OM: Order Changed Performed By: #### L 500.2500 ####[facility] [address] [place], [address] GLU Normal 70-99 [facility] Comment on above: Result Comment: Canc elled via OM: Order Changed Performed By: #### L 500.2500 ####[facility] [address] [place], [address] Potassium Normal 3.3-5.1 [facility] Comment on above: Result Comment: Canc elled via OM: Order Changed Performed By: #### L 500.2500 ####[facility] [address] [place], [address] Basic Metabolic Profile (BMP) Normal 133-145 [facility] Comment on above: Result Comment: Canjoanne elled via OM: Order Changed Performed By: #### L 500.2500 ####[facility] [address] [place], [address] BUN/CRE 12.3 RATIO Normal 10-20 [facility] Comment on above: Performed By: #### L 500.2500 ####[facility] [address] [place], [address] Calcium [Mass/Vol] 8.2 mg/dL Normal 7.6-11.0 [facility] Comment on above: Performed By: #### L 500.2500 ####[facility] [address] [place], [address] Chloride [Moles/Vol] 103 mmol/L Normal 98-108 [facility] Comment on above: Performed By: #### L 500.2500 ####[facility] [address] [place], [address] CO2 [Moles/Vol] 17.1 mmol/L Low 21.0-32.0 [facility] Comment on above: Performed By: #### L 500.2500 ####[facility] [address] [place], [address] Creatinine [Mass/Vol] 7.23 mg/dL High 0.70-1.20 [facility] Comment on above: Performed By: #### L 500.2500 ####[facility] [address] [place], [address] ECRCL 9.68 ml/min Invalid Interpretation Code 50-250 [facility] Comment on above: Performed By: #### L 500.2500 ####[facility] [address] [place], [address] GAP 17 High 5-15 [facility] Comment on above: Performed By: #### L 500.2500 ####[facility] [address] [place], [address] GFR/1.73 sq M.predicted among non-blacks MDRD (S/P/Bld) [Vol rate/Area] 7 mL/min/{1.73_m2} Low >60 [facility] Comment on above: Result Comment: mL/m in/1.73m2 CKD-EPI Creatinine Equation (2020) Performed By: #### L 500.2500 ####[facility] [address] [place], [address] Glucose [Mass/Vol] 207 mg/dL High 70-99 [facility] Comment on above: Performed By: #### L 500.2500 ####[facility] [address] [place], [address] Potassium [Moles/Vol] 3.6 mmol/L Normal 3.3-5.1 [facility] Comment on above: Performed By: #### L 500.2500 ####[facility] [address] [place], [address] Sodium [Moles/Vol] 138 mmol/L Normal 133-145 [facility] Comment on above: Performed By: #### L 500.2500 ####[facility] [address] [place], [address] Urea nitrogen [Mass/Vol] 89 mg/dL High 4-19 [facility] Comment on above: Performed By: #### L 500.2500 ####[facility] [address] [place], [address] BUN Normal 4-19 [facility] Comment on above: Result Comment: Canc elled via OM: Order Changed Performed By: #### L 500.2500 ####[facility] [address] [place], [address] BUN/CRE Normal 10-20 [facility] Comment on above: Result Comment: Canc elled via OM: Order Changed Performed By: #### L 500.2500 ####[facility] [address] [place], [address] Calcium Normal 7.6-11.0 [facility] Comment on above: Result Comment: Canc elled via OM: Order Changed Performed By: #### L 500.2500 ####[facility] [address] [place], [address] CL Normal 98-108 [facility] Comment on above: Result Comment: Canc elled via OM: Order Changed Performed By: #### L 500.2500 ####[facility] [address] [place], [address] CO2 Normal 21.0-32.0 [facility] Comment on above: Result Comment: Canc elled via OM: Order Changed Performed By: #### L 500.2500 ####[facility] [address] [place], [address] CREAT,SERUM Normal 0.70-1.20 [facility] Comment on above: Result Comment: Canc elled via OM: Order Changed Performed By: #### L 500.2500 ####[facility] [address] [place], [address] eGFR Normal >60 [facility] Comment on above: Result Comment: Canc elled via OM: Order Changed Performed By: #### L 500.2500 ####[facility] [address] [place], [address] GAP Normal 5-15 [facility] Comment on above: Result Comment: Canc elled via OM: Order Changed Performed By: #### L 500.2500 ####[facility] [address] [place], [address] GLU Normal 70-99 [facility] Comment on above: Result Comment: Canc elled via OM: Order Changed Performed By: #### L 500.2500 ####[facility] [address] [place], [address] Potassium Normal 3.3-5.1 [facility] Comment on above: Result Comment: Canc elled via OM: Order Changed Performed By: #### L 500.2500 ####[facility] [address] [place], [address] Basic Metabolic Profile (BMP) Normal 133-145 [facility] Comment on above: Result Comment: Canc elled via OM: Order Changed Performed By: #### L 500.2500 ####[facility] [address] [place], [address] BUN Normal 4-19 [facility] Comment on above: Result Comment: Canc elled via OM: Order Changed Performed By: #### L 500.2500 ####[facility] [address] [place], [address] BUN/CRE Normal 10-20 [facility] Comment on above: Result Comment: Canc elled via OM: Order Changed Performed By: #### L 500.2500 ####[facility] [address] [place], [address] Calcium Normal 7.6-11.0 [facility] Comment on above: Result Comment: Canc elled via OM: Order Changed Performed By: #### L 500.2500 ####[facility] [address] [place], [address] CL Normal 98-108 [facility] Comment on above: Result Comment: Canc elled via OM: Order Changed Performed By: #### L 500.2500 ####[facility] [address] [place], [address] CO2 Normal 21.0-32.0 [facility] Comment on above: Result Comment: Canc elled via OM: Order Changed Performed By: #### L 500.2500 ####[facility] [address] [place], [address] CREAT,SERUM Normal 0.70-1.20 [facility] Comment on above: Result Comment: Canc elled via OM: Order Changed Performed By: #### L 500.2500 ####[facility] [address] [place], [address] eGFR Normal >60 [facility] Comment on above: Result Comment: Canc elled via OM: Order Changed Performed By: #### L 500.2500 ####[facility] [address] [place], [address] GAP Normal 5-15 [facility] Comment on above: Result Comment: Canc elled via OM: Order Changed Performed By: #### L 500.2500 ####[facility] [address] [place], [address] GLU Normal 70-99 [facility] Comment on above: Result Comment: Canc elled via OM: Order Changed Performed By: #### L 500.2500 ####[facility] [address] [place], [address] Potassium Normal 3.3-5.1 [facility] Comment on above: Result Comment: Canc elled via OM: Order Changed Performed By: #### L 500.2500 ####[facility] [address] [place], [address] Basic Metabolic Profile (BMP) Normal 133-145 [facility] Comment on above: Result Comment: Canc elled via OM: Order Changed Performed By: #### L 500.2500 ####[facility] [address] [place], [address] BUN/CRE 12.2 RATIO Normal 10-20 [facility] Comment on above: Performed By: #### L 501.3620, L500.2500, L501.5200 ####[facility] [address] [place], [address] Calcium [Mass/Vol] 7.8 mg/dL Normal 7.6-11.0 [facility] Comment on above: Performed By: #### L 501.3620, L500.2500, L501.5200 ####[facility] [address] [place], [address] Chloride [Moles/Vol] 104 mmol/L Normal 98-108 [facility] Comment on above: Performed By: #### L 501.3620, L500.2500, L501.5200 ####[facility] [address] [place], [address] CO2 [Moles/Vol] 16.4 mmol/L Low 21.0-32.0 [facility] Comment on above: Performed By: #### L 501.3620, L500.2500, L501.5200 ####[facility] [address] [place], [address] Creatinine [Mass/Vol] 6.70 mg/dL High 0.70-1.20 [facility] Comment on above: Performed By: #### L 501.3620, L500.2500, L501.5200 ####[facility] [address] [place], [address] ECRCL 10.44 ml/min Low 50-250 [facility] Comment on above: Performed By: #### L 501.3620, L500.2500, L501.5200 ####[facility] [address] [place], [address] GAP 17 High 5-15 [facility] Comment on above: Performed By: #### L 501.3620, L500.2500, L501.5200 ####[facility] [address] [place], [address] GFR/1.73 sq M.predicted among non-blacks MDRD (S/P/Bld) [Vol rate/Area] 8 mL/min/{1.73_m2} Low >60 [facility] Comment on above: Result Comment: mL/m in/1.73m2 CKD-EPI Creatinine Equation (2020) Performed By: #### L 501.3620, L500.2500, L501.5200 ####[facility] [address] [place], [address] Glucose [Mass/Vol] 195 mg/dL High 70-99 [facility] Comment on above: Performed By: #### L 501.3620, L500.2500, L501.5200 ####[facility] [address] [place], [address] Potassium [Moles/Vol] 3.7 mmol/L Normal 3.3-5.1 [facility] Comment on above: Performed By: #### L 501.3620, L500.2500, L501.5200 ####[facility] [address] [place], [address] Sodium [Moles/Vol] 137 mmol/L Normal 133-145 [facility] Comment on above: Performed By: #### L 501.3620, L500.2500, L501.5200 ####[facility] [address] [place], [address] Urea nitrogen [Mass/Vol] 82 mg/dL High 4-19 [facility] Comment on above: Performed By: #### L 501.3620, L500.2500, L501.5200 ####[facility] [address] [place], [address] Bedside Glucoseon 10-20-2024 FINGERSTICK GLU 202 mg/dL High 74-106 [facility] Comment on above: Result Comment: MARYK PATEL OF PATIENT CARE PER NURSING PROTOCOL Performed By: #### L 501.080 ####[facility] [address] [place], [address] FINGERSTICK GLU 190 mg/dL High 74-106 [facility] Comment on above: Result Comment: MARKY GEMENT OF PATIENT CARE PER NURSING PROTOCOL Performed By: #### L 501.080 ####[facility] [address] [place], [address] FINGERSTICK GLU 165 mg/dL High 74-106 [facility] Comment on above: Result Comment: MARKY GEMENT OF PATIENT CARE PER NURSING PROTOCOL Performed By: #### L 501.080 ####[facility] [address] [place], [address] FINGERSTICK GLU 138 mg/dL High 74-106 [facility] Comment on above: Result Comment: MARKY GEMENT OF PATIENT CARE PER NURSING PROTOCOL Performed By: #### L 501.080 ####[facility] [address] [place], [address] [facility] 025 LUIS MIGUEL TEST N/A Normal [facility] Comment on above: Performed By: #### L 9000.0800 ####[facility] [address] [place], [address] Base excess Calc (Bld) [Moles/Vol] -2 mmol/L Normal -2 to +2 [facility] Comment on above: Performed By: #### L 9000.0800 ####[facility] [address] [place], [address] Blood Gas Type ART Normal [facility] Comment on above: Performed By: #### L 9000.0800 ####[facility] [address] [place], [address] CO2 [Moles/Vol] 23 mmol/L Normal [facility] Comment on above: Performed By: #### L 9000.0800 ####[facility] [address] [place], [address] FI02 3.0 Normal [facility] Comment on above: Performed By: #### L 9000.0800 ####[facility] [address] [place], [address] HCO3 (Bld) [Moles/Vol] 21.8 mmol/L Low 22-26 [facility] Comment on above: Performed By: #### L 9000.0800 ####[facility] [address] [place], [address] Mode Not entered [facility] Comment on above: Performed By: #### L 9000.0800 ####[facility] [address] [place], [address] O2 Delivery Dev Cannula Normal [facility] Comment on above: Performed By: #### L 9000.0800 ####[facility] [address] [place], [address] pCO2 30.3 mmHg Low 35-45 [facility] Comment on above: Performed By: #### L 9000.0800 ####[facility] [address] [place], [address] pH (Bld) 7.47 [pH] High 7.35-7.45 [facility] Comment on above: Performed By: #### L 9000.0800 ####[facility] [address] [place], [address] PO2 72 mmHG Low 75-100 [facility] Comment on above: Performed By: #### L 9000.0800 ####[facility] [address] [place], [address] SITE R Radial Normal [facility] Comment on above: Performed By: #### L 9000.0800 ####[facility] [address] [place], [address] SO2 96 Normal 95-99 [facility] Comment on above: Performed By: #### L 9000.0800 ####[facility] [address] [place], [address] Blood base excess determinat ionOrdered By: Nathalia Garcia on 10-20-2024 Base excess Calc (BldV) [Moles/Vol] -2 mmol/L -2-2 [facility] Blood bicarbonate measuremen tOrdered By: Nathalia Garcia on 10-20-2024 HCO3 (Bld) [Moles/Vol] 21.8 mmol/L Low 22-26 [facility] Blood manual differential co mment interpretation (narrative result)Ordered By: Nathalia Garcia on 10-20-2024 Manual differential comment Ahmet (Bld) [Interp] SCANNED [facility] CBC W/Diff, Automatedon 10-07 SMEAR COMMENT SCANNED Normal [facility] Comment on above: Result Comment: LEFT SHIFT: BANDS PRESENT 2+ Performed By: #### L 100.0100 ####[facility] [address] [place], [address] TOXIC GRAN 2+ Normal [facility] Comment on above: Performed By: #### L 100.0100 ####[facility] [address] [place], [address] CPK Total, Creatine Kinaseon 10-20-2024 CPK TOTAL 4431 U/L High 24-195 [facility] Comment on above: Performed By: #### L 501.3620, L500.2500, L501.5200 ####[facility] [address] [place], [address] Culture, Blood (WB)on 2024 CUB Blood cultures x2, from two different sites No growth in 5 days. Normal [facility] Comment on above: Performed By: #### L 506.0200, L501.9985, L503.6005, L501.9910, L501.9520, M200.1000 ####[facility] [address] [place], [address] Magnesiumon 10-20-2024 Magnesium [Mass/Vol] 2.0 mg/dL Normal 1.5-2.2 [facility] Comment on above: Performed By: #### L 501.3620, L500.2500, L501.5200 ####[facility] [address] [place], [address] Magnesium measurement (mass/ volume)Ordered By: Nathalia Garcia on 10-20-2024 Magnesium (Unsp spec) [Mass/Vol] 2.0 mg/dL 1.5-2.2 [facility] Measurement, pHOrdered By: Ashok Garcia on 10-20-2024 pH (Unsp spec) 7.47 [pH] High 7.35-7.45 [facility] No Panel InformationOrdered By: Nathalia Garcia on 10-20-2024 ART [facility] R Radial [facility] Not entered [facility] Cannula [facility] Partial Thromboplast Timeon 10-20-2024 aPTT Coag (Bld) [Time] 67.5 s High 24.1-36.[address] [facility] Comment on above: Performed By: #### L 300.4310 ####[facility] [address] [place], [address] aPTT Coag (Bld) [Time] 69.6 s High 24.1-36.[address] [facility] Comment on above: Performed By: #### L 300.4310 ####[facility] [address] [place], [address] aPTT Coag (Bld) [Time] 132.3 s Invalid Interpretation Code 24.1-36.2 [facility] Comment on above: Result Comment: CRIT ICAL VALUE CALLED TO [id number]/14/25 0011 Dre Pimentel.RESULTS READ BACK BY SAME. Performed By: #### L 300.4310 ####[facility] [address] [place], [address] Serum or plasma creatine kin ase activityOrdered By: Nathalia Garcia on 10-20-2024 CK [Catalytic activity/Vol] 4431 U/L High 24-195 [facility] Total carbon dioxide measure mentOrdered By: Nathalia Garcia on 10-20-2024 CO2 [Moles/Vol] 23 mmol/L [facility] Amorphous sediment detection in urine sediment by light microscopyOrdered By: Nathalia Garcia on 10-19-2024 Amorphous sediment LM Ql (Urine sed) 1+ [facility] Basic Metabolic Profile (BMP )on 10-19-2024 BUN/CRE 13.0 RATIO Normal 10-20 [facility] Comment on above: Performed By: #### L 500.2500 ####[facility] [address] [place], [address] Calcium [Mass/Vol] 7.9 mg/dL Normal 7.6-11.0 [facility] Comment on above: Performed By: #### L 500.2500 ####[facility] [address] [place], [address] Chloride [Moles/Vol] 103 mmol/L Normal 98-108 [facility] Comment on above: Performed By: #### L 500.2500 ####[facility] [address] [place], [address] CO2 [Moles/Vol] 17.7 mmol/L Low 21.0-32.0 [facility] Comment on above: Performed By: #### L 500.2500 ####[facility] [address] [place], [address] Creatinine [Mass/Vol] 6.21 mg/dL High 0.70-1.20 [facility] Comment on above: Performed By: #### L 500.2500 ####[facility] [address] [place], [address] ECRCL 11.27 ml/min Low 50-250 [facility] Comment on above: Performed By: #### L 500.2500 ####[facility] [address] [place], [address] GAP 17 High 5-15 [facility] Comment on above: Performed By: #### L 500.2500 ####[facility] [address] [place], [address] GFR/1.73 sq M.predicted among non-blacks MDRD (S/P/Bld) [Vol rate/Area] 9 mL/min/{1.73_m2} Low >60 [facility] Comment on above: Result Comment: mL/m in/1.73m2 CKD-EPI Creatinine Equation (2020) Performed By: #### L 500.2500 ####[facility] [address] [place], [address] Glucose [Mass/Vol] 151 mg/dL High 70-99 [facility] Comment on above: Performed By: #### L 500.2500 ####[facility] [address] [place], [address] Potassium [Moles/Vol] 3.9 mmol/L Normal 3.3-5.1 [facility] Comment on above: Performed By: #### L 500.2500 ####[facility] [address] [place], [address] Sodium [Moles/Vol] 138 mmol/L Normal 133-145 [facility] Comment on above: Performed By: #### L 500.2500 ####[facility] [address] [place], [address] Urea nitrogen [Mass/Vol] 81 mg/dL High 4-19 [facility] Comment on above: Performed By: #### L 500.2500 ####[facility] [address] [place], [address] BUN/CRE 13.4 RATIO Normal 10-20 [facility] Comment on above: Performed By: #### L 500.2500 ####[facility] [address] [place], [address] Calcium [Mass/Vol] 8.1 mg/dL Normal 7.6-11.0 [facility] Comment on above: Performed By: #### L 500.2500 ####[facility] [address] [place], [address] Chloride [Moles/Vol] 102 mmol/L Normal 98-108 [facility] Comment on above: Performed By: #### L 500.2500 ####[facility] [address] [place], [address] CO2 [Moles/Vol] 17.4 mmol/L Low 21.0-32.0 [facility] Comment on above: Performed By: #### L 500.2500 ####[facility] [address] [place], [address] Creatinine [Mass/Vol] 5.97 mg/dL High 0.70-1.20 [facility] Comment on above: Performed By: #### L 500.2500 ####[facility] [address] [place], [address] ECRCL 11.72 ml/min Low 50-250 [facility] Comment on above: Performed By: #### L 500.2500 ####[facility] [address] [place], [address] GAP 17 High 5-15 [facility] Comment on above: Performed By: #### L 500.2500 ####[facility] [address] [place], [address] GFR/1.73 sq M.predicted among non-blacks MDRD (S/P/Bld) [Vol rate/Area] 9 mL/min/{1.73_m2} Low >60 [facility] Comment on above: Result Comment: mL/m in/1.73m2 CKD-EPI Creatinine Equation (2020) Performed By: #### L 500.2500 ####[facility] [address] [place], [address] Glucose [Mass/Vol] 157 mg/dL High 70-99 [facility] Comment on above: Performed By: #### L 500.2500 ####[facility] [address] [place], [address] Potassium [Moles/Vol] 4.2 mmol/L Normal 3.3-5.1 [facility] Comment on above: Performed By: #### L 500.2500 ####[facility] [address] [place], [address] Sodium [Moles/Vol] 136 mmol/L Normal 133-145 [facility] Comment on above: Performed By: #### L 500.2500 ####[facility] [address] [place], [address] Urea nitrogen [Mass/Vol] 80 mg/dL High 4-19 [facility] Comment on above: Performed By: #### L 500.2500 ####[facility] [address] [place], [address] BUN/CRE 13.7 RATIO Normal 10-20 [facility] Comment on above: Performed By: #### L 500.2500 ####[facility] [address] [place], [address] Calcium [Mass/Vol] 8.1 mg/dL Normal 7.6-11.0 [facility] Comment on above: Performed By: #### L 500.2500 ####[facility] [address] [place], [address] Chloride [Moles/Vol] 103 mmol/L Normal 98-108 [facility] Comment on above: Performed By: #### L 500.2500 ####[facility] [address] [place], [address] CO2 [Moles/Vol] 12.2 mmol/L Low 21.0-32.0 [facility] Comment on above: Performed By: #### L 500.2500 ####[facility] [address] [place], [address] Creatinine [Mass/Vol] 5.79 mg/dL High 0.70-1.20 [facility] Comment on above: Performed By: #### L 500.2500 ####[facility] [address] [place], [address] ECRCL 12.08 ml/min Low 50-250 [facility] Comment on above: Performed By: #### L 500.2500 ####[facility] [address] [place], [address] GAP 18 High 5-15 [facility] Comment on above: Performed By: #### L 500.2500 ####[facility] [address] [place], [address] GFR/1.73 sq M.predicted among non-blacks MDRD (S/P/Bld) [Vol rate/Area] 10 mL/min/{1.73_m2} Low >[address] [facility] Comment on above: Result Comment: mL/m in/1.73m2 CKD-EPI Creatinine Equation (2020) Performed By: #### L 500.2500 ####[facility] [address] [place], [address] Glucose [Mass/Vol] 172 mg/dL High 70-99 [facility] Comment on above: Performed By: #### L 500.2500 ####[facility] [address] [place], [address] Potassium [Moles/Vol] 4.2 mmol/L Normal 3.3-5.1 [facility] Comment on above: Result Comment: Hemo lysis present, Results??could be affected.?? Performed By: #### L 500.2500 ####[facility] [address] [place], [address] Sodium [Moles/Vol] 133 mmol/L Normal 133-145 [facility] Comment on above: Performed By: #### L 500.2500 ####[facility] [address] [place], [address] Urea nitrogen [Mass/Vol] 79 mg/dL High 4-19 [facility] Comment on above: Performed By: #### L 500.2500 ####[facility] [address] [place], [address] BUN/CRE 13.8 RATIO Normal 10-20 [facility] Comment on above: Performed By: #### L 500.2500 ####[facility] [address] [place], [address] Calcium [Mass/Vol] 8.1 mg/dL Normal 7.6-11.0 [facility] Comment on above: Performed By: #### L 500.2500 ####[facility] [address] [place], [address] Chloride [Moles/Vol] 102 mmol/L Normal 98-108 [facility] Comment on above: Performed By: #### L 500.2500 ####[facility] [address] [place], [address] CO2 [Moles/Vol] 15.4 mmol/L Low 21.0-32.0 [facility] Comment on above: Performed By: #### L 500.2500 ####[facility] [address] [place], [address] Creatinine [Mass/Vol] 5.72 mg/dL High 0.70-1.20 [facility] Comment on above: Performed By: #### L 500.2500 ####[facility] [address] [place], [address] ECRCL 12.23 ml/min Low 50-250 [facility] Comment on above: Performed By: #### L 500.2500 ####[facility] [address] [place], [address] GAP 18 High 5-15 [facility] Comment on above: Performed By: #### L 500.2500 ####[facility] [address] [place], [address] GFR/1.73 sq M.predicted among non-blacks MDRD (S/P/Bld) [Vol rate/Area] 10 mL/min/{1.73_m2} Low >[address] [facility] Comment on above: Result Comment: mL/m in/1.73m2 CKD-EPI Creatinine Equation (2020) Performed By: #### L 500.2500 ####[facility] [address] [place], [address] Glucose [Mass/Vol] 167 mg/dL High 70-99 [facility] Comment on above: Performed By: #### L 500.2500 ####[facility] [address] [place], [address] Potassium [Moles/Vol] 4.3 mmol/L Normal 3.3-5.1 [facility] Comment on above: Performed By: #### L 500.2500 ####[facility] [address] [place], [address] Sodium [Moles/Vol] 135 mmol/L Normal 133-145 [facility] Comment on above: Performed By: #### L 500.2500 ####[facility] [address] [place], [address] Urea nitrogen [Mass/Vol] 79 mg/dL High 4-19 [facility] Comment on above: Performed By: #### L 500.2500 ####[facility] [address] [place], [address] Bedside Glucoseon 10-19-2024 FINGERSTICK GLU 157 mg/dL High 74-106 [facility] Comment on above: Result Comment: MARKY GEMENT OF PATIENT CARE PER NURSING PROTOCOL Performed By: #### L 501.080 ####[facility] [address] [place], [address] FINGERSTICK GLU 161 mg/dL High 74-106 [facility] Comment on above: Result Comment: MARKY GEMENT OF PATIENT CARE PER NURSING PROTOCOL Performed By: #### L 501.080 ####[facility] [address] [place], [address] FINGERSTICK GLU 114 mg/dL High -106 [facility] Comment on above: Result Comment: MARKY GEMENT OF PATIENT CARE PER NURSING PROTOCOL Performed By: #### L 501.080 ####[facility] [address] [place], [address] Bilirubin, totalOrdered By: Nathalia Garcia on 10-19-2024 Bilirubin [Mass/Vol] 0.51 mg/dL 0.00-1.30 [facility] Blood Gases by CPSon 025 LUIS MIGUEL TEST Positive Normal [facility] Comment on above: Performed By: #### L 9000.0800 ####[facility] [address] [place], [address] Base excess Calc (Bld) [Moles/Vol] -5 mmol/L Low -2 to +2 [facility] Comment on above: Performed By: #### L 9000.0800 ####[facility] [address] [place], [address] Blood Gas Type ART Normal [facility] Comment on above: Performed By: #### L 9000.0800 ####[facility] [address] [place], [address] CO2 [Moles/Vol] 19 mmol/L Normal [place] [facility] Comment on above: Performed By: #### L 9000.0800 ####[facility] [address] [place], [address] FI02 4.0 Normal [facility] Comment on above: Performed By: #### L 9000.0800 ####[facility] [address] [place], [address] HCO3 (Bld) [Moles/Vol] 18.0 mmol/L Low 22-26 [facility] Comment on above: Performed By: #### L 9000.0800 ####[facility] [address] [place], [address] Mode Not entered [facility] Comment on above: Performed By: #### L 9000.0800 ####[facility] [address] [place], [address] O2 Delivery Dev Cannula Normal [facility] Comment on above: Performed By: #### L 9000.0800 ####[facility] [address] [place], [address] pCO2 23.7 mmHg Low 35-45 [facility] Comment on above: Performed By: #### L 9000.0800 ####[facility] [address] [place], [address] pH (Bld) 7.49 [pH] High 7.35-7.45 [facility] Comment on above: Performed By: #### L 9000.0800 ####[facility] [address] [place], [address] PO2 107 mmHG High 75-100 [facility] Comment on above: Performed By: #### L 9000.0800 ####[facility] [address] [place], [address] SITE R Radial Normal [facility] Comment on above: Performed By: #### L 9000.0800 ####[facility] [address] [place], [address] SO2 99 Normal 95-99 [facility] Comment on above: Performed By: #### L 9000.0800 ####[facility] [address] [place], [address] CBC W/Diff, Automatedon 10-07 Absolute Neut Normal 2.0-7.7 [facility] Comment on above: Order Comment: Comme nts: If not done in prior 24 hours Result Comment: ALRE YAS DONE WITHIN 24 HOURS OF ORDER Performed By: #### L 300.3900, L300.4310, L100.0100 ####[facility] [address] [place], [address] HCT Normal 40-54 [facility] Comment on above: Order Comment: Comme nts: If not done in prior 24 hours Result Comment: ALRE YAS DONE WITHIN 24 HOURS OF ORDER Performed By: #### L 300.3900, L300.4310, L100.0100 ####[facility] [address] [place], [address] HGB Normal 13.0-16.5 [facility] Comment on above: Order Comment: Comme nts: If not done in prior 24 hours Result Comment: ALRE YAS DONE WITHIN 24 HOURS OF ORDER Performed By: #### L 300.3900, L300.4310, L100.0100 ####[facility] [address] [place], [address] MCH Normal 27.0-32.0 [facility] Comment on above: Order Comment: Comme nts: If not done in prior 24 hours Result Comment: ALRE YAS DONE WITHIN 24 HOURS OF ORDER Performed By: #### L 300.3900, L300.4310, L100.0100 ####[facility] [address] [place], [address] MCHC Normal 32-36 [facility] Comment on above: Order Comment: Comme nts: If not done in prior 24 hours Result Comment: ALRE YAS DONE WITHIN 24 HOURS OF ORDER Performed By: #### L 300.3900, L300.4310, L100.0100 ####[facility] [address] [place], [address] MCV Normal 80-94 [facility] Comment on above: Order Comment: Comme nts: If not done in prior 24 hours Result Comment: ALRE YAS DONE WITHIN 24 HOURS OF ORDER Performed By: #### L 300.3900, L300.4310, L100.0100 ####[facility] [address] [place], [address] NEUT% Normal 47-70 [facility] Comment on above: Order Comment: Comme nts: If not done in prior 24 hours Result Comment: ALRE YAS DONE WITHIN 24 HOURS OF ORDER Performed By: #### L 300.3900, L300.4310, L100.0100 ####[facility] [address] [place], [address] PLT Normal 150-450 [facility] Comment on above: Order Comment: Comme nts: If not done in prior 24 hours Result Comment: ALRE YAS DONE WITHIN 24 HOURS OF ORDER Performed By: #### L 300.3900, L300.4310, L100.0100 ####[facility] [address] [place], [address] RBC Normal 4.6-6.2 [facility] Comment on above: Order Comment: Comme nts: If not done in prior 24 hours Result Comment: ALRE YAS DONE WITHIN 24 HOURS OF ORDER Performed By: #### L 300.3900, L300.4310, L100.0100 ####[facility] [address] [place], [address] RDW CV Normal 11.6-14.6 [facility] Comment on above: Order Comment: Comme nts: If not done in prior 24 hours Result Comment: ALRE YAS DONE WITHIN 24 HOURS OF ORDER Performed By: #### L 300.3900, L300.4310, L100.0100 ####[facility] [address] [place], [address] RDW SD Normal 35.1-43.9 [facility] Comment on above: Order Comment: Comme nts: If not done in prior 24 hours Result Comment: ALRE YAS DONE WITHIN 24 HOURS OF ORDER Performed By: #### L 300.3900, L300.4310, L100.0100 ####[facility] [address] [place], [address] WBC Normal 4.4-11.0 [facility] Comment on above: Order Comment: Comme nts: If not done in prior 24 hours Result Comment: ALRE YAS DONE WITHIN 24 HOURS OF ORDER Performed By: #### L 300.3900, L300.4310, L100.0100 ####[facility] [address] [place], [address] SMEAR COMMENT SCANNED Normal [facility] Comment on above: Result Comment: LEFT SHIFT: BANDS PRESENT 1+LYMPHOPENIA PRESENT 1+ Performed By: #### L 100.0100, L501.2300 ####[facility] [address] [place], [address] CPK Total, Creatine Kinaseon 10-19-2024 CPK TOTAL 8103 U/L High 24-195 [facility] Comment on above: Performed By: #### L 501.3620, L501.5200, L500.4050 ####[facility] [address] [place], [address] Chest 1 View (Portable)on Chest 1 View (Portable) Normal [facility] Chest without Contraston 09- 13-2025 Chest without Contrast Normal [facility] Comprehensive Metabolic Prof ilon 10-19-2024 Albumin [Mass/Vol] 2.6 g/dL Low 3.4-4.8 [facility] Comment on above: Performed By: #### L 501.3620, L501.5200, L500.4050 ####[facility] [address] [place], [address] Albumin/Globulin [Mass ratio] 0.8 {ratio} Low 0.9-2.4 [facility] Comment on above: Performed By: #### L 501.3620, L501.5200, L500.4050 ####[facility] [address] [place], [address] ALK PHOS 75 U/L Normal 40-129 [facility] Comment on above: Performed By: #### L 501.3620, L501.5200, L500.4050 ####[facility] [address] [place], [address] ALT [Catalytic activity/Vol] 17 U/L Normal <=46 [facility] Comment on above: Performed By: #### L 501.3620, L501.5200, L500.4050 ####[facility] [address] [place], [address] AST [Catalytic activity/Vol] 318 U/L High <=37 [facility] Comment on above: Performed By: #### L 501.3620, L501.5200, L500.4050 ####[facility] [address] [place], [address] Bilirubin [Mass/Vol] 0.51 mg/dL Normal 0.00-1.30 [facility] Comment on above: Performed By: #### L 501.3620, L501.5200, L500.4050 ####[facility] [address] [place], [address] BUN/CRE 14.2 RATIO Normal 10-20 [facility] Comment on above: Performed By: #### L 501.3620, L501.5200, L500.4050 ####[facility] [address] [place], [address] Calcium [Mass/Vol] 7.7 mg/dL Normal 7.6-11.0 [facility] Comment on above: Performed By: #### L 501.3620, L501.5200, L500.4050 ####[facility] [address] [place], [address] Chloride [Moles/Vol] 105 mmol/L Normal 98-108 [facility] Comment on above: Performed By: #### L 501.3620, L501.5200, L500.4050 ####[facility] [address] [place], [address] CO2 [Moles/Vol] 15.6 mmol/L Low 21.0-32.0 [facility] Comment on above: Performed By: #### L 501.3620, L501.5200, L500.4050 ####[facility] [address] [place], [address] Creatinine [Mass/Vol] 5.18 mg/dL High 0.70-1.20 [facility] Comment on above: Performed By: #### L 501.3620, L501.5200, L500.4050 ####[facility] [address] [place], [address] ECRCL 13.51 ml/min Low 50-250 [facility] Comment on above: Performed By: #### L 501.3620, L501.5200, L500.4050 ####[facility] [address] [place], [address] GAP 16 High 5-15 [facility] Comment on above: Performed By: #### L 501.3620, L501.5200, L500.4050 ####[facility] [address] [place], [address] GFR/1.73 sq M.predicted among non-blacks MDRD (S/P/Bld) [Vol rate/Area] 11 mL/min/{1.73_m2} Low >[address] [facility] Comment on above: Result Comment: mL/m in/1.73m2 CKD-EPI Creatinine Equation (2020) Performed By: #### L 501.3620, L501.5200, L500.4050 ####[facility] [address] [place], [address] Globulin (S) [Mass/Vol] 3.1 g/dL Normal 2.2-4.2 [facility] Comment on above: Performed By: #### L 501.3620, L501.5200, L500.4050 ####[facility] [address] [place], [address] Glucose [Mass/Vol] 124 mg/dL High 70-99 [facility] Comment on above: Performed By: #### L 501.3620, L501.5200, L500.4050 ####[facility] [address] [place], [address] Potassium [Moles/Vol] 4.2 mmol/L Normal 3.3-5.1 [facility] Comment on above: Performed By: #### L 501.3620, L501.5200, L500.4050 ####[facility] [address] [place], [address] Sodium [Moles/Vol] 137 mmol/L Normal 133-145 [facility] Comment on above: Performed By: #### L 501.3620, L501.5200, L500.4050 ####[facility] [address] [place], [address] T PROT 5.8 g/dL Low 5.9-8.4 [facility] Comment on above: Performed By: #### L 501.3620, L501.5200, L500.4050 ####[facility] [address] [place], [address] Urea nitrogen [Mass/Vol] 74 mg/dL High 4-19 [facility] Comment on above: Performed By: #### L 501.3620, L501.5200, L500.4050 ####[facility] [address] [place], [address] Consultation - Nephrologyon 10-19-2024 Consultation - Nephrology Normal [facility] Creatinine, Urine (random)on 10-19-2024 UR CREAT 70.10 mg/dL Normal 39.00-259.00 [facility] Comment on above: Performed By: #### L 502.0715, L400.0001, L501.5500, L501.1200 ####[facility] [address] [place], [address] Hemoglobinon 10-19-2024 Hemoglobin (Bld) [Mass/Vol] 11.0 g/dL Low 13.0-16.5 [facility] Comment on above: Performed By: #### L 100.1300 ####[facility] [address] [place], [address] Hemoglobin (Bld) [Mass/Vol] 9.9 g/dL Low 13.0-16.5 [facility] Comment on above: Performed By: #### L 100.1300 ####[facility] [address] [place], [address] Legionella Antigen Urineon 0 10-19-2024 LEGU Normal [facility] Comment on above: Performed By: #### M 300.4500, M300.4600 ####[facility] [address] [place], [address] M R Staph Aureus DNA by PCRo n 10-19-2024 MRSA DNA ASSAY Negative Normal Negative [facility] Comment on above: Performed By: #### L 8200.1000 ####[facility] [address] [place], [address] M100.019on 10-19-2024 M100.019 Negative Normal [facility] Comment on above: Performed By: #### M 100.019 ####[facility] [address] [place], [address] Magnesiumon 10-19-2024 Magnesium [Mass/Vol] 1.7 mg/dL Normal 1.5-2.2 [facility] Comment on above: Performed By: #### L 501.3620, L501.5200, L500.4050 ####[facility] [address] [place], [address] Natriuretic peptide.B prohor salbador N-Terminal [Mass/volume] in Serum or PlasmaOrdered By: Kenrick Rosario on 10-19-2024 Natriuretic peptide.B prohormone N-Terminal [Mass/Vol] 2366 pg/mL High <900 [facility] No Panel InformationOrdered By: Nathalia Garcia on 10-19-2024 318 U/L High <38 [facility] Partial Thromboplast Timeon 10-19-2024 aPTT Coag (Bld) [Time] 79.6 s High 24.1-36.[address] [facility] Comment on above: Performed By: #### L 300.4310 ####[facility] [address] [place], [address] aPTT Coag (Bld) [Time] 34.1 s Normal 24.1-36.[address] [facility] Comment on above: Order Comment: Comme nts: If not done in prior 24 hours Performed By: #### L 300.3900, L300.4310, L100.0100 ####[facility] [address] [place], [address] Phosphoruson 10-19-2024 Phosphate [Mass/Vol] 3.6 mg/dL Normal 2.7-4.5 [facility] Comment on above: Performed By: #### L 100.0100, L501.2300 ####[facility] [address] [place], [address] Pro- Brain NATRIURETIC PEPTI Chery 10-19-2024 Natriuretic peptide B (Bld) [Mass/Vol] 2366 pg/mL High <=900 [facility] Comment on above: Result Comment: Hear t Failure Unlikely: < 300 pg/mLHeart Failure Likely< 50 Years: > 450 pg/mL50-75 Years: > 900 pg/mL>75 Years: > 1800 pg/mL Performed By: #### L 503.2138 ####[facility] [address] [place], [address] Prothrombin Time w/INRon INR Coag (PPP) [Relative time] 1.6 {INR} Normal [facility] Comment on above: Order Comment: Comme nts: If not done in prior 24 hours Performed By: #### L 300.3900, L300.4310, L100.0100 ####[facility] [address] [place], [address] PT Coag (PPP) [Time] 19.0 s High 11.7-14.9 [facility] Comment on above: Order Comment: Comme nts: If not done in prior 24 hours Performed By: #### L 300.3900, L300.4310, L100.0100 ####[facility] [address] [place], [address] Prothrombin timeOrdered By: Nathalia Garcia on 10-19-2024 PT Coag (PPP) [Time] 19.0 s High 11.7-14.9 [facility] RESPIRATORY PANEL MOLECULARo n 09-13-2025 RP PANEL Normal [facility] Comment on above: Performed By: #### M 100.638 ####[facility] [address] [place], [address] Random urine creatinine makenzie urement (mass/volume)Ordered By: Nathalia Garcia on 10-19-2024 Creatinine Unsp time (U) [Mass/Vol] 70.10 mg/dL 39.00-259.00 [facility] Respiratory pathogens detect ion panel by molecular detection methodOrdered By: Nathalia Garcia on 10-19-2024 Respiratory pathogens DNA and RNA panel ADELA+probe (Resp) [facility] Jupl-txj-0Cvucfnb By: Dwight Garcia on 10-19-2024 SARS-CoV-2 (COVID-19) RNA ADELA+probe Ql (Unsp spec) [facility] Serum globulin measurementOr dered By: Nathalia Garcia on 10-19-2024 Globulin (S) [Mass/Vol] 3.1 g/dL 2.2-4.2 [facility] Serum or plasma alanine gandhi otransferase (ALT) measurementOrdered By: Nathalia Garcia on 10-19-2024 ALT [Catalytic activity/Vol] 17 U/L <47 [facility] Serum or plasma albumin makenzie urement (mass/volume)Ordered By: Nathalia Garcia on 10-19-2024 Albumin [Mass/Vol] 2.6 g/dL Low 3.4-4.8 [facility] Serum or plasma albumin/glob ulin mass ratioOrdered By: Nathalia Garcia on 10-19-2024 Albumin/Globulin [Mass ratio] 0.8 {ratio} Low 0.9-2.4 [facility] Serum or plasma alkaline manju sphatase measurementOrdered By: Nathalia Garcia on 10-19-2024 ALP [Catalytic activity/Vol] 75 U/L 40-129 [facility] Strep pneumoniae Antig(UR,CS F)on 10-19-2024 STPAG Normal [facility] Comment on above: Performed By: #### M 300.2660, M300.4600 ####[facility] [address] [place], [address] Total proteinOrdered By: Jessica angelo Jose on 10-19-2024 Protein [Mass/Vol] 5.8 g/dL Low 5.9-8.4 [facility] Urea Nitrogen, Urineon 10-19 URINE UREA 159 mg/dL Normal NO RANGE EST. [facility] Comment on above: Performed By: #### L 502.0715, L400.0001, L501.5500, L501.1200 ####[facility] [address] [place], [address] Urinalysis, Completeon 10-19 AMORPHOUS 1+ Normal [facility] Comment on above: Order Comment: DOREEN TER SPECIMEN Performed By: #### L 502.0715, L400.0001, L501.5500, L501.1200 ####[facility] [address] [place], [address] RBC 10-25 SEEN Normal 0-5 [facility] Comment on above: Order Comment: DOREEN TER SPECIMEN Performed By: #### L 502.0715, L400.0001, L501.5500, L501.1200 ####[facility] [address] [place], [address] WBC 0-5 SEEN Normal 0-5 [facility] Comment on above: Order Comment: DOREEN TER SPECIMEN Performed By: #### L 502.0715, L400.0001, L501.5500, L501.1200 ####[facility] [address] [place], [address] BACTERIA 0 SEEN Normal None Seen [facility] Comment on above: Order Comment: DOREEN TER SPECIMEN Performed By: #### L 502.0715, L400.0001, L501.5500, L501.1200 ####[facility] [address] [place], [address] EPI,SQUAMOUS 0 SEEN Normal 0-5 [facility] Comment on above: Order Comment: DOREEN TER SPECIMEN Performed By: #### L 502.0715, L400.0001, L501.5500, L501.1200 ####[facility] [address] [place], [address] Mucus Ql (Urine sed) 0 SEEN Normal [facility] Comment on above: Order Comment: DOREEN [facility] SPECIMEN Performed By: #### L 502.0715, L400.0001, L501.5500, L501.1200 ####[facility] [address] [place], [address] Urine Cultureon 10-19-2024 URC Culture exhibits no growth. Normal [facility] Comment on above: Performed By: #### M 100.2200 ####[facility] [address] [place], [address] Urine Legionella pneumophila antigen detectionOrdered By: Nathalia Garcia on 10-19-2024 L. pneumophila Ag Ql (U) [facility] Urine Sodiumon 10-19-2024 Sodium (U) [Moles/Vol] 94 mmol/L Normal Not Establ. [facility] Comment on above: Performed By: #### L 502.0715, L400.0001, L501.5500, L501.1200 ####[facility] [address] [place], [address] Urine sodium measurement (mo les/volume)Ordered By: Nathalia Garcia on 10-19-2024 Sodium (U) [Moles/Vol] 94 mmol/L Not Establ. [facility] aPTTon 10-19-2024 aPTT [facility] Basic Metabolic Profile (BMP )on 10-18-2024 BUN/CRE 20.5 RATIO High 10-20 [facility] Comment on above: Performed By: #### L 500.2500 ####[facility] [address] [place], [address] Calcium [Mass/Vol] 8.2 mg/dL Normal 7.6-11.0 [facility] Comment on above: Performed By: #### L 500.2500 ####[facility] [address] [place], [address] Chloride [Moles/Vol] 105 mmol/L Normal 98-108 [facility] Comment on above: Performed By: #### L 500.2500 ####[facility] [address] [place], [address] CO2 [Moles/Vol] 15.7 mmol/L Low 21.0-32.0 [facility] Comment on above: Performed By: #### L 500.2500 ####[facility] [address] [place], [address] Creatinine [Mass/Vol] 2.85 mg/dL High 0.70-1.20 [facility] Comment on above: Performed By: #### L 500.2500 ####[facility] [address] [place], [address] ECRCL 24.55 ml/min Low 50-250 [facility] Comment on above: Performed By: #### L 500.2500 ####[facility] [address] [place], [address] GAP 18 High 5-15 [facility] Comment on above: Performed By: #### L 500.2500 ####[facility] [address] [place], [address] GFR/1.73 sq M.predicted among non-blacks MDRD (S/P/Bld) [Vol rate/Area] 23 mL/min/{1.73_m2} Low >[address] [facility] Comment on above: Result Comment: mL/m in/1.73m2 CKD-EPI Creatinine Equation (2020) Performed By: #### L 500.2500 ####[facility] [address] [place], [address] Glucose [Mass/Vol] 176 mg/dL High 70-99 [facility] Comment on above: Performed By: #### L 500.2500 ####[facility] [address] [place], [address] Potassium [Moles/Vol] 4.8 mmol/L Normal 3.3-5.1 [facility] Comment on above: Result Comment: Hemo lysis present, Results??could be affected.?? Performed By: #### L 500.2500 ####[facility] [address] [place], [address] Sodium [Moles/Vol] 138 mmol/L Normal 133-145 [facility] Comment on above: Performed By: #### L 500.2500 ####[facility] [address] [place], [address] Urea nitrogen [Mass/Vol] 58 mg/dL High 4-19 [facility] Comment on above: Performed By: #### L 500.2500 ####[facility] [address] [place], [address] Bedside Glucoseon 10-18-2024 FINGERSTICK GLU 126 mg/dL High 74-106 [facility] Comment on above: Result Comment: MARKY GEMENT OF PATIENT CARE PER NURSING PROTOCOL Performed By: #### L 501.080 ####[facility] [address] [place], [address] FINGERSTICK GLU 141 mg/dL High 74-106 [facility] Comment on above: Result Comment: MARKY GEMENT OF PATIENT CARE PER NURSING PROTOCOL Performed By: #### L 501.080 ####[facility] [address] [place], [address] FINGERSTICK GLU 146 mg/dL High 74-106 [facility] Comment on above: Result Comment: MARKY GEMENT OF PATIENT CARE PER NURSING PROTOCOL Performed By: #### L 501.080 ####[facility] [address] [place], [address] FINGERSTICK GLU 167 mg/dL High 74-106 [facility] Comment on above: Result Comment: MARKY PATEL OF PATIENT CARE PER NURSING PROTOCOL Performed By: #### L 501.080 ####[facility] [address] [place], [address] [facility] LUIS MIGUEL TEST Positive Normal [facility] Comment on above: Performed By: #### L 9000.0800 ####[facility] [address] [place], [address] Base excess Calc (Bld) [Moles/Vol] -5 mmol/L Low -2 to +2 [facility] Comment on above: Performed By: #### L 9000.0800 ####[facility] [address] [place], [address] Blood Gas Type ART Normal [facility] Comment on above: Performed By: #### L 9000.0800 ####[facility] [address] [place], [address] CO2 [Moles/Vol] 20 mmol/L Normal [facility] Comment on above: Performed By: #### L 9000.0800 ####[facility] [address] [place], [address] FI02 21.0 Normal [facility] Comment on above: Performed By: #### L 9000.0800 ####[facility] [address] [place], [address] HCO3 (Bld) [Moles/Vol] 18.9 mmol/L Low 22-26 [facility] Comment on above: Performed By: #### L 9000.0800 ####[facility] [address] [place], [address] Mode Not entered Normal [facility] Comment on above: Performed By: #### L 9000.0800 ####[facility] [address] [place], [address] O2 Delivery Dev Room Air Normal [facility] Comment on above: Performed By: #### L 9000.0800 ####[facility] [address] [place], [address] pCO2 26.1 mmHg Low 35-45 [facility] Comment on above: Performed By: #### L 9000.0800 ####[facility] [address] [place], [address] pH (Bld) 7.47 [pH] High 7.35-7.45 [facility] Comment on above: Performed By: #### L 9000.0800 ####[facility] [address] [place], [address] PO2 65 mmHG Low 75-100 [facility] Comment on above: Performed By: #### L 9000.0800 ####[facility] [address] [place], [address] SITE R Radial Normal [facility] Comment on above: Performed By: #### L 9000.0800 ####[facility] [address] [place], [address] SO2 94 Low 95-99 [facility] Comment on above: Performed By: #### L 9000.0800 ####[facility] [address] [place], [address] CO2 (BldV) [Moles/Vol]Ordere d By: Nathalia Garcia on 10-18-2024 CO2 [Moles/Vol] 23 mmol/L 23-33 [facility] CPK Total, Creatine Kinaseon 10-18-2024 CPK TOTAL 68887 U/L High 24-195 [facility] Comment on above: Result Comment: Hemo lysis present, Results??could be affected.?? Performed By: #### L 500.4100, L501.5470 ####[facility] [address] [place], [place], [address] Calculated very low density lipoprotein (VLDL) cholesterol measurementOrdered By: Kenrick Rosario on 10-18-2024 Calculated very low density lipoprotein (VLDL) cholesterol measurement 18 mg/dL 5-40 [facility] Echo Complete W/ Contraston 10-18-2024 Echo Complete W/ Contrast Normal [facility] Echocardiogram study reportO rdered By: James Sacnhez on 10-18-2024 Study report [facility] Work Phone: LDL calc ser/plasOrdered By: Kenrick Rosraio on 10-18-2024 Cholesterol in LDL [Mass/Vol] 31 mg/dL [facility] Lipid Profileon 10-18-2024 CHOL:HDL 2.40 Normal [facility] Comment on above: Performed By: #### L 500.4100, L501.3620 ####[facility] [address] [place], [place], [address] Cholesterol [Mass/Vol] 84 mg/dL Normal <=[address] [facility] Comment on above: Result Comment: Chol esterol level, Desirable <200 mg/dLBorderline high cholesterol 200-239 mg/dLHigh cholesterol >=240 mg/dLRecommendations of the NCEP Adult Treatment Panel for thefollowing risk-cutoff thresholds for the [place] [facility]. Performed By: #### L 500.4100, L501.3620 ####[facility] [address] [place], [place], [address] Cholesterol in HDL [Mass/Vol] 35 mg/dL Low [facility] Comment on above: Result Comment: Mamta onal Cholesterol Education Program (NCEP) guidelines:<40 mg/dL: Low HDL-cholesterol (major risk factor for CHD)>= 60 mg/dL: High HDL-cholesterol (negative risk factor forCHD)HDL-cholesterol is affected by a number of factors, e.g.smoking, exercise, hormones, sex and age. Performed By: #### L 500.4100, L501.3620 ####[place] [facility] [address] [place], [address] Cholesterol in LDL [Mass/Vol] 31 mg/dL Normal [facility] Comment on above: Result Comment: Bord xmmnxw=602-862 mg/dL Higher Gpvp=931 mg/dL or greaterFriedwald Equation for LDL-C Performed By: #### L 500.4100, L501.3620 ####[facility] [address] [place], [address] Cholesterol in VLDL [Mass/Vol] 18 mg/dL Normal 5-40 [facility] Comment on above: Performed By: #### L 500.4100, L501.3620 ####[facility] [address] [place], [address] Triglyceride [Mass/Vol] 89 mg/dL Normal [facility] Comment on above: Result Comment: The drugs N-Acetylcysteine and Metamizole may falselydepress this assay.Normal range: <150 mg/dLBorderline High: 150-199 mg/dLHigh: 200-499 mg/dLVery High: >500 mg/dL Performed By: #### L 500.4100, L501.3620 ####[facility] [address] [place], [address] Serum or plasma cholesterol in HDL measurement (mass/volume)Ordered By: Kenrick Rosario on 10-18-2024 Cholesterol in HDL [Mass/Vol] 35 mg/dL Low >40 [facility] Serum or plasma cholesterol measurement (mass/volume)Ordered By: Kenrick Rosario on 10-18-2024 Cholesterol [Mass/Vol] 84 mg/dL <[address] [facility] Troponin T HS 4 HRon 025 Trop T High Sen 67 ng/L Invalid Interpretation Code <=22 [facility] Comment on above: Result Comment: Hemo lysis present, Results??could be affected.??Critical Result(s) Called at: 10-18-24 00:01 TO CONNIERPORAL by: SONIA REDDING??Results read back by same. Performed By: #### L 499.0043 ####[facility] [address] [place], [address] Urinalysis, Completeon 10-18 EPI,SQUAMOUS 0-5 SEEN Normal 0-5 [facility] Comment on above: Order Comment: COLOR OF URINE MAY AFFECT DIPSTICK RESULTS.CLEAN CATCH Performed By: #### L 400.0001 ####[facility] [address] [place], [address] RBC > 100 SEEN Normal 0-5 [facility] Comment on above: Order Comment: COLOR OF URINE MAY AFFECT DIPSTICK RESULTS.CLEAN CATCH Performed By: #### L 400.0001 ####[facility] [address] [place], [address] WBC 10-25 SEEN Normal 0-5 [facility] Comment on above: Order Comment: COLOR OF URINE MAY AFFECT DIPSTICK RESULTS.CLEAN CATCH Performed By: #### L 400.0001 ####[facility] [address] [place], [address] BACTERIA 0 SEEN Normal None Seen [facility] Comment on above: Order Comment: COLOR OF URINE MAY AFFECT DIPSTICK RESULTS.CLEAN CATCH Performed By: #### L 400.0001 ####[facility] [address] [place], [address] Mucus Ql (Urine sed) 0 SEEN Normal [facility] Comment on above: Order Comment: COLOR OF URINE MAY AFFECT DIPSTICK RESULTS.CLEAN CATCH Performed By: #### L 400.0001 ####[facility] [address] [place], [address] Urine cultureOrdered By: Jessica Garcia on 10-18-2024 Bacteria identified Cx Nom (U) Culture exhibits no growth. [facility] Venous Blood Gason Blood Gas Type SYED Normal [facility] Comment on above: Performed By: #### L 9000.0810 ####[facility] [address] [place], [address] CO2 [Moles/Vol] 23 mmol/L Normal 23-33 [facility] Comment on above: Performed By: #### L 9000.0810 ####[facility] [address] [place], [address] HCO3 (Bld) [Moles/Vol] 22 mmol/L Normal 22-[address] [facility] Comment on above: Performed By: #### L 9000.0810 ####[facility] [address] [place], [address] O2 Delivery Dev Not entered Normal [facility] Comment on above: Performed By: #### L 9000.0810 ####[facility] [address] [place], [address] SITE Not entered Normal [facility] Comment on above: Performed By: #### L 9000.0810 ####[facility] [address] [place], [address] VBG BE -2 mmol/L Low -1.0-3.5 [facility] Comment on above: Performed By: #### L 9000.0810 ####[facility] [address] [place], [address] VBG pCO2 32.5 mmHg Low 41-51 [facility] Comment on above: Performed By: #### L 9000.0810 ####[facility] [address] [place], [address] VBG pH 7.44 High 7.32-7.42 [facility] Comment on above: Performed By: #### L 9000.0810 ####[facility] [address] [place], [address] VBG PO2 162 mmHg High 25-40 [facility] Comment on above: Performed By: #### L 9000.0810 ####[facility] [address] [place], [place], [address] VBG SO2 100 High 50-70 [facility] Comment on above: Performed By: #### L 9000.0810 ####[facility] [address] [place], [place], [address] Venous blood base excess carlos surementOrdered By: Nathalia Garcia on 10-18-2024 Base excess Calc (BldV) [Moles/Vol] -2 mmol/L Low -1.0-3.5 [facility] Venous blood bicarbonate carlos surementOrdered By: Nathalia Garcia on 10-18-2024 HCO3 (Bld) [Moles/Vol] 22 mmol/L 22-[address] [facility] Venous blood pH measurementO rdered By: Nathalia Garcia on 10-18-2024 pH (BldV) 7.44 [pH] High 7.32-7.42 [facility] Venous blood partial pressur e of carbon dioxide measurementOrdered By: Nathalia Garcia on 10-18-2024 CO2 (BldV) [Partial pressure] 32.5 mm[Hg] Low 41-51 [facility] Venous blood partial pressur e of oxygen measurementOrdered By: Nathalia Garcia on 10-18-2024 Oxygen (BldV) [Partial pressure] 162 mm[Hg] High 25-40 [facility] Absolute lymphocyte countOrd ered By: Gamal Irwin on 10-17-2024 Lymphocytes Auto (Unsp spec) [#/Vol] 0.41 10*3/uL Low 0.83-4.51 [facility] Absolute neutrophil countOrd ered By: Gamal Irwin on 10-17-2024 Neutrophils (Bld) [#/Vol] 13.7 10*3/uL High 2.0-7.7 [facility] Activated partial thrombopla stin time (aPTT) in platelet poor plasma by coagulation aOrdered By: Gamal Irwin on 10-17-2024 aPTT Coag (PPP) [Time] 33.3 s 24.1-36.[address] [facility] Anion gap in Serum or Plasma Ordered By: Gamal Irwin on 10-17-2024 Anion gap [Moles/Vol] 19 mmol/L High 5-15 [facility] Assessment of wrist artery p atency prior to arterial punctureOrdered By: Gamal Irwin on 10-17-2024 Arterial patency Wrist artery --pre arterial puncture Positive [facility] Automated lymphocyte count a s percentage of total leukocytesOrdered By: Gamal Irwin on 10-17-2024 Lymphocytes/100 WBC Auto (Unsp spec) 2.7 % Low 19-41 [facility] BUN/creatinine ratioOrdered By: Gamal Irwin on 10-17-2024 Urea nitrogen/Creatinine [Mass ratio] 20.1 mg/mg High 10-20 [facility] Basophil percentageOrdered B y: Gamal Irwin on 10-17-2024 Basophils/100 WBC (Bld) 0.5 % 0-1 [facility] Bedside Glucoseon 10-17-2024 FINGERSTICK GLU 320 mg/dL High 74-106 [facility] Comment on above: Result Comment: MARKY PATEL OF PATIENT CARE PER NURSING PROTOCOL Performed By: #### L 501.080 ####[facility] [address] [place], [place], [address] Bilirubin, totalOrdered By: Gamal Irwin on 10-17-2024 Bilirubin [Mass/Vol] 0.76 mg/dL 0.00-1.30 [facility] Blood Gases by CPSon 025 LUIS MIGUEL TEST Positive Normal [facility] Comment on above: Performed By: #### L 9000.0800 ####[facility] [address] [place], [address] Base excess Calc (Bld) [Moles/Vol] -3 mmol/L Low -2 to +2 [facility] Comment on above: Performed By: #### L 9000.0800 ####[facility] [address] [place], [address] Blood Gas Type ART Normal [facility] Comment on above: Performed By: #### L 9000.0800 ####[facility] [address] [place], [address] CO2 [Moles/Vol] 21 mmol/L Normal [facility] Comment on above: Performed By: #### L 8999.0800 ####[facility] [address] [place], [address] FI02 21.0 Normal [facility] Comment on above: Performed By: #### L 8999.0800 ####[facility] [address] [place], [address] HCO3 (Bld) [Moles/Vol] 20.2 mmol/L Low 22-26 [facility] Comment on above: Performed By: #### L 8999.0800 ####[facility] [address] [place], [address] Mode Not entered Normal [facility] Comment on above: Performed By: #### L 0.0800 ####[facility] [address] [place], [address] O2 Delivery Dev Room Air [facility] Comment on above: Performed By: #### L 0.0800 ####[facility] [address] [place], [address] pCO2 26.1 mmHg Low 35-45 [facility] Comment on above: Performed By: #### L 0.0800 ####[facility] [address] [place], [address] pH (Bld) 7.50 [pH] High 7.35-7.45 [facility] Comment on above: Performed By: #### L 0.0800 ####[facility] [address] [place], [address] PO2 70 mmHG Low 75-100 [facility] Comment on above: Performed By: #### L 0.0800 ####[facility] [address] [place], [address] SITE L Radial Normal [facility] Comment on above: Performed By: #### L 9000.0800 ####[facility] [address] [place], [address] SO2 96 Normal 95-99 [facility] Comment on above: Performed By: #### L 9000.0800 ####[facility] [address] [place], [address] Blood base excess determinat ionOrdered By: Gamal Irwin on 10-17-2024 Base excess Calc (BldV) [Moles/Vol] -3 mmol/L Low -2-2 [facility] Blood bicarbonate measuremen tOrdered By: Gamal Irwin on 10-17-2024 HCO3 (Bld) [Moles/Vol] 20.2 mmol/L Low 22-26 [facility] Blood cultureOrdered By: Sekou Rosario on 10-17-2024 Bacteria identified Cx Nom (Bld) No growth in 5 days. [facility] Bacteria identified Cx Nom (Bld) No growth in 5 days. [facility] Brain/Head without Contrasto n 10-17-2024 Brain/Head without Contrast Normal [facility] CBC W/Diff, Automatedon 10-07 Absolute Lymph 0.41 X10 3/uL Low 0.83-4.51 [facility] Comment on above: Performed By: #### L 300.3900, L500.4050, L503.6005, L100.0100, L501.3620, L300.4310 ####[facility] [address] [place], [address] Absolute Neut 13.7 X10 3/uL High 2.0-7.7 [facility] Comment on above: Performed By: #### L 300.3900, L500.4050, L503.6005, L100.0100, L501.3620, L300.4310 ####[facility] [address] [place], [address] Basophils/100 WBC (Bld) 0.5 % Normal 0-1 [facility] Comment on above: Performed By: #### L 300.3900, L500.4050, L503.6005, L100.0100, L501.3620, L300.4310 ####[facility] [address] [place], [address] Eosinophils/100 WBC (Bld) 0.8 % Normal 0-5 [facility] Comment on above: Performed By: #### L 300.3900, L500.4050, L503.6005, L100.0100, L501.3620, L300.4310 ####[facility] [address] [place], [address] Erythrocyte distribution width (RBC) [Ratio] 12.9 % Normal 11.6-14.6 [facility] Comment on above: Performed By: #### L 300.3900, L500.4050, L503.6005, L100.0100, L501.3620, L300.4310 ####[facility] [address] [place], [address] Hematocrit (Bld) [Volume fraction] 41.0 % Normal 40-54 [facility] Comment on above: Performed By: #### L 300.3900, L500.4050, L503.6005, L100.0100, L501.3620, L300.4310 ####[facility] [address] [place], [address] Hemoglobin (Bld) [Mass/Vol] 13.7 g/dL Normal 13.0-16.5 [facility] Comment on above: Performed By: #### L 300.3900, L500.4050, L503.6005, L100.0100, L501.3620, L300.4310 ####[facility] [address] [place], [address] IG% 0.300 Normal 0.0-0.9 [facility] Comment on above: Result Comment: IG% - Immature Granulocytes (promyelocytes, myelocytes andmetamyelocytes) > 1% indicates that a LEFT SHIFT is Present. Performed By: #### L 300.3900, L500.4050, L503.6005, L100.0100, L501.3620, L300.4310 ####[facility] [address] [place], [address] Lymphocytes/100 WBC (Bld) 2.7 % Low 19-41 [facility] Comment on above: Performed By: #### L 300.3900, L500.4050, L503.6005, L100.0100, L501.3620, L300.4310 ####[facility] [address] [place], [address] MCH (RBC) [Entitic mass] 30.6 pg Normal 27.0-32.0 [facility] Comment on above: Performed By: #### L 300.3900, L500.4050, L503.6005, L100.0100, L501.3620, L300.4310 ####[facility] [address] [place], [address] MCHC (RBC) [Mass/Vol] 33.4 g/dL Normal 32-36 [facility] Comment on above: Performed By: #### L 300.3900, L500.4050, L503.6005, L100.0100, L501.3620, L300.4310 ####[facility] [address] [place], [address] MCV (RBC) [Entitic vol] 91.5 fL Normal 80-94 [facility] Comment on above: Performed By: #### L 300.3900, L500.4050, L503.6005, L100.0100, L501.3620, L300.4310 ####[facility] [address] [place], [address] Monocytes/100 WBC (Bld) 7.1 % Normal 0-10 [facility] Comment on above: Performed By: #### L 300.3900, L500.4050, L503.6005, L100.0100, L501.3620, L300.4310 ####[facility] [address] [place], [address] Neutrophils/100 WBC (Bld) 88.6 % High 47-70 [facility] Comment on above: Performed By: #### L 300.3900, L500.4050, L503.6005, L100.0100, L501.3620, L300.4310 ####[facility] [address] [place], [address] Nucleated RBC (Bld) [#/Vol] 0 10*3/uL Normal 0-5 [facility] Comment on above: Performed By: #### L 300.3900, L500.4050, L503.6005, L100.0100, L501.3620, L300.4310 ####[facility] [address] [place], [address] Platelet mean volume (Bld) [Entitic vol] 12.2 fL High 6.2-12.0 [facility] Comment on above: Performed By: #### L 300.3900, L500.4050, L503.6005, L100.0100, L501.3620, L300.4310 ####[facility] [address] [place], [address] Platelets (Bld) [#/Vol] 275 10*3/uL Normal 150-450 [facility] Comment on above: Performed By: #### L 300.3900, L500.4050, L503.6005, L100.0100, L501.3620, L300.4310 ####[facility] [address] [place], [address] RBC (Bld) [#/Vol] 4.48 10*6/uL Low 4.6-6.2 [facility] Comment on above: Performed By: #### L 300.3900, L500.4050, L503.6005, L100.0100, L501.3620, L300.4310 ####[facility] [address] [place], [address] RDW SD 43.2 fl Normal 35.1-43.9 [facility] Comment on above: Performed By: #### L 300.3900, L500.4050, L503.6005, L100.0100, L501.3620, L300.4310 ####[facility] [address] [place], [address] WBC (Bld) [#/Vol] 15.5 10*3/uL High 4.4-11.0 [facility] Comment on above: Performed By: #### L 300.3900, L500.4050, L503.6005, L100.0100, L501.3620, L300.4310 ####[facility] [address] [place], [address] CPK Total, Creatine Kinaseon 10-17-2024 CPK TOTAL 67788 U/L High 24-195 [facility] Comment on above: Performed By: #### L 300.3900, L500.4050, L503.6005, L100.0100, L501.3620, L300.4310 ####[facility] [address] [place], [address] Carbon dioxide, total [Moles /volume] in Central venous bloodOrdered By: Gamal Irwin on 10-17-2024 CO2 [Moles/Vol] 21.0 mmol/L 21.0-32.0 [facility] Chest 1 View (Portable)on Chest 1 View (Portable) Normal [facility] Chloride assayOrdered By: Edilson Irwin on 10-17-2024 Chloride [Moles/Vol] 98 mmol/L 98-108 [facility] Comprehensive Metabolic Prof ilon 10-17-2024 Albumin [Mass/Vol] 4.0 g/dL Normal 3.4-4.8 [facility] Comment on above: Performed By: #### L 300.3900, L500.4050, L503.6005, L100.0100, L501.3620, L300.4310 ####[facility] [address] [place], [address] Albumin/Globulin [Mass ratio] 0.9 {ratio} Normal 0.9-2.4 [facility] Comment on above: Performed By: #### L 300.3900, L500.4050, L503.6005, L100.0100, L501.3620, L300.4310 ####[facility] [address] [place], [address] ALK PHOS 104 U/L Normal 40-129 [facility] Comment on above: Performed By: #### L 300.3900, L500.4050, L503.6005, L100.0100, L501.3620, L300.4310 ####[facility] [address] [place], [address] ALT [Catalytic activity/Vol] 77 U/L High <=46 [facility] Comment on above: Performed By: #### L 300.3900, L500.4050, L503.6005, L100.0100, L501.3620, L300.4310 ####[facility] [address] [place], [address] AST [Catalytic activity/Vol] 392 U/L High <=37 [facility] Comment on above: Performed By: #### L 300.3900, L500.4050, L503.6005, L100.0100, L501.3620, L300.4310 ####[facility] [address] [place], [address] Bilirubin [Mass/Vol] 0.76 mg/dL Normal 0.00-1.30 [facility] Comment on above: Performed By: #### L 300.3900, L500.4050, L503.6005, L100.0100, L501.3620, L300.4310 ####[facility] [address] [place], [address] BUN/CRE 20.1 RATIO High 10-20 [facility] Comment on above: Performed By: #### L 300.3900, L500.4050, L503.6005, L100.0100, L501.3620, L300.4310 ####[facility] [address] [place], [address] Calcium [Mass/Vol] 9.5 mg/dL Normal 7.6-11.0 [facility] Comment on above: Performed By: #### L 300.3900, L500.4050, L503.6005, L100.0100, L501.3620, L300.4310 ####[facility] [address] [place], [address] Chloride [Moles/Vol] 98 mmol/L Normal 98-108 [facility] Comment on above: Performed By: #### L 300.3900, L500.4050, L503.6005, L100.0100, L501.3620, L300.4310 ####[facility] [address] [place], [address] CO2 [Moles/Vol] 21.0 mmol/L Normal 21.0-32.0 [facility] Comment on above: Performed By: #### L 300.3900, L500.4050, L503.6005, L100.0100, L501.3620, L300.4310 ####[facility] [address] [place], [address] Creatinine [Mass/Vol] 2.76 mg/dL High 0.70-1.20 [facility] Comment on above: Performed By: #### L 300.3900, L500.4050, L503.6005, L100.0100, L501.3620, L300.4310 ####[facility] [address] [place], [address] ECRCL 25.35 ml/min Low 50-250 [facility] Comment on above: Performed By: #### L 300.3900, L500.4050, L503.6005, L100.0100, L501.3620, L300.4310 ####[facility] [address] [place], [address] GAP 19 High 5-15 [facility] Comment on above: Performed By: #### L 300.3900, L500.4050, L503.6005, L100.0100, L501.3620, L300.4310 ####[facility] [address] [place], [address] GFR/1.73 sq M.predicted among non-blacks MDRD (S/P/Bld) [Vol rate/Area] 24 mL/min/{1.73_m2} Low >[address] [facility] Comment on above: Result Comment: mL/m in/1.73m2 CKD-EPI Creatinine Equation (2020) Performed By: #### L 300.3900, L500.4050, L503.6005, L100.0100, L501.3620, L300.4310 ####[facility] [address] [place], [address] Globulin (S) [Mass/Vol] 4.3 g/dL High 2.2-4.2 [facility] Comment on above: Performed By: #### L 300.3900, L500.4050, L503.6005, L100.0100, L501.3620, L300.4310 ####[facility] [address] [place], [address] Glucose [Mass/Vol] 344 mg/dL High 70-99 [facility] Comment on above: Performed By: #### L 300.3900, L500.4050, L503.6005, L100.0100, L501.3620, L300.4310 ####[facility] [address] [place], [address] Potassium [Moles/Vol] 4.5 mmol/L Normal 3.3-5.1 [facility] Comment on above: Performed By: #### L 300.3900, L500.4050, L503.6005, L100.0100, L501.3620, L300.4310 ####[facility] [address] [place], [address] Sodium [Moles/Vol] 138 mmol/L Normal 133-145 [facility] Comment on above: Performed By: #### L 300.3900, L500.4050, L503.6005, L100.0100, L501.3620, L300.4310 ####[facility] [address] [place], [address] T PROT 8.2 g/dL Normal 5.9-8.4 [facility] Comment on above: Performed By: #### L 300.3900, L500.4050, L503.6005, L100.0100, L501.3620, L300.4310 ####[facility] [address] [place], [address] Urea nitrogen [Mass/Vol] 55 mg/dL High 4-19 [facility] Comment on above: Performed By: #### L 300.3900, L500.4050, L503.6005, L100.0100, L501.3620, L300.4310 ####[facility] [address] [place], [address] Emergency Department Summary on 10-17-2024 Emergency Department Summary Normal [facility] Eosinophil percentageOrdered By: Gamal Irwin on 10-17-2024 Eosinophils/100 WBC (Bld) 0.8 % 0-5 [facility] Erythrocyte distribution wid th ratioOrdered By: Gamal Irwin on 10-17-2024 Erythrocyte distribution width (RBC) [Ratio] 12.9 % 11.6-14.6 [facility] Erythrocyte distribution wid th standard deviationOrdered By: Gamal Irwin on 10-17-2024 Erythrocyte distribution width (RBC) [Ratio] 43.2 fl 35.1-43.9 [facility] Folate [Moles/volume] in Ser um or PlasmaOrdered By: Kenrick Rosario on 10-17-2024 Folate [Moles/Vol] 38.40 ng/mL High 4.60-34.80 [facility] Folates,Serum (Folic Acid)on 10-17-2024 FOLATES,SERUM 38.40 ng/mL High 4.60-34.80 [facility] Comment on above: Result Comment: Hemo lysis, Results will be affected, Requires Recollection. Performed By: #### L 506.0200, L501.9985, L503.6005, L501.9910, L501.9520, M200.1000 ####[facility] [address] [place], [address] Glomerular filtration rate ( GFR) estimation/1.73 sq m using serum, plasma, or whole bOrdered By: Gamal Irwin on 10-17-2024 GFR/1.73 sq M.predicted among non-blacks MDRD (S/P/Bld) [Vol rate/Area] 24 mL/min/{1.73_m2} Low >[address] [facility] Comment on above: mL/min/1.73m2 CKD-EP I Creatinine Equation (2020) Glucose measurement at bedsi deOrdered By: Gamal Irwin on 10-17-2024 Glucose [Mass/Vol] 320 mg/dL High 74-106 [facility] Comment on above: MANAGEMENT OF PATIEN T CARE PER NURSING PROTOCOL H AND P Exam - Hospitaliston 10-17-2024 H&P Exam - Hospitalist Normal [facility] Hematocrit Auto (Bld) [Volum e fraction]Ordered By: Gamal Irwin on 10-17-2024 Hematocrit (Bld) [Volume fraction] 41.0 % 40-54 [facility] Hemoglobin A1con 10-17-2024 HbA1c (Bld) [Mass fraction] 8.1 % High <=5.6 [facility] Comment on above: Result Comment: Norm al < 5.7 % Prediabetic 5.7 - 6.4 % Diabetic >or= 6.5 % Please note range changes. Performed By: #### L 506.0200, L501.9985, L503.6005, L501.9910, L501.9520, M200.1000 ####[facility] [address] [place], [place], [address] Hemoglobin A1c percentageOrd ered By: Kenrick Rosario on 10-17-2024 HbA1c (Bld) [Mass fraction] 8.1 % High <5.7 [facility] Hemoglobin measurementOrdere d By: Gamal Irwin on 10-17-2024 Hemoglobin (Bld) [Mass/Vol] 13.7 g/dL 13.0-16.5 [facility] Immature granulocytes/100 WB C Auto (Bld)Ordered By: Gamal Irwin on 10-17-2024 Immature granulocytes/100 WBC (Bld) 0.300 % 0.0-0.9 [facility] Comment on above: IG% - Immature Granu locytes (promyelocytes, myelocytes and metamyelocytes) > 1% indicates that a LEFT SHIFT is Present. International normalized rat io (INR) calculationOrdered By: Gamal Irwin on 10-17-2024 INR Coag (Bld) [Relative time] 1.6 {INR} [facility] L501.4021on 10-17-2024 Trop T High Sen 64 ng/L Invalid Interpretation Code <=22 [facility] Comment on above: Result Comment: Crit ical Result(s) Called LSPARR at: 2024 by:ADIEL??Results read back by same. Performed By: #### L 501.4021 ####[facility] [address] [place], [address] Laboratory - Chemistry and C hemistry - challengeOrdered By: Gamal Irwin on 10-17-2024 AST [Catalytic activity/Vol] 392 U/L High <38 [facility] Lactic Acidon 10-17-2024 Lactate [Moles/Vol] 2.0 mmol/L Normal 0.0-2.0 [facility] Comment on above: Result Comment: Crit ical Result(s) Called at:10-17-24 23:32 TO CAROLE by:??SONIA REDDING Results read back by same. Performed By: #### L 503.6005 ####[facility] [address] [place], [place], [address] Lactate [Moles/Vol] 1.7 mmol/L Normal 0.0-2.0 [facility] Comment on above: Order Comment: Comme nts: if result >2, system reflex orders 2nd test @ 4hrsY Performed By: #### L 506.0200, L501.9985, L503.6005, L501.9910, L501.9520, M200.1000 ####[facility] [address] [place], [place], [address] Lactate [Moles/Vol] 3.6 mmol/L Invalid Interpretation Code 0.0-2.0 [facility] Comment on above: Order Comment: Y Result Comment: Crit ical Result(s) Called LSPARR at: 2005 by:ADIEL??Results read back by same. Performed By: #### L 300.3900, L500.4050, L503.6005, L100.0100, L501.3620, L300.4310 ####[facility] [address] [place], [address] Lactic acid measurementOrder ed By: Gamal Irwin on 10-17-2024 Lactate [Moles/Vol] 3.6 mmol/L High 0.0-2.0 [facility] Comment on above: Critical Result(s) C gladis LSPARR at: 2006 by: ADIEL Results read back by same. MCV (mean corpuscular volume ) determinationOrdered By: Gamal Irwin on 10-17-2024 MCV (RBC) [Entitic vol] 91.5 fL 80-94 [facility] Mean corpuscular hemoglobin (MCH) determinationOrdered By: Gamalbala Irwin on 10-17-2024 MCH (RBC) [Entitic mass] 30.6 pg 27.0-32.0 [facility] Mean corpuscular hemoglobin concentration (MCHC) determinationOrdered By: Gamal Irwin on 10-17-2024 MCHC (RBC) [Mass/Vol] 33.4 g/dL 32-36 [facility] Mean platelet volume determi nationOrdered By: Gamal Irwin on 10-17-2024 Platelet mean volume (Bld) [Entitic vol] 12.2 fL High 6.2-12.0 [facility] Measurement, pHOrdered By: Gina Irwin on 10-17-2024 pH (Unsp spec) 7.50 [pH] High 7.35-7.45 [facility] Monocyte percentageOrdered B y: Gamal Irwin on 10-17-2024 Monocytes/100 WBC (Bld) 7.1 % 0-10 [facility] Neutrophil percentageOrdered By: Gamalbala Irwin on 10-17-2024 Neutrophils/100 WBC (Bld) 88.6 % High 47-70 [facility] No Panel InformationOrdered By: Gamal Irwin on 10-17-2024 Blood Gas Sample Site L Radial [facility] Blood Gas Specimen Type ART [facility] Blood Gas Vent Mode Not entered [facility] Oxygen Delivery Device Room Air [facility] Nucleated red blood cell per centageOrdered By: Gamal Irwin on 10-17-2024 Nucleated RBC/100 WBC (Bld) [Ratio] 0 % 0-5 [facility] PSA,Total - Annual Screenon 10-17-2024 PSA,TOT SCREEN 0.80 ng/mL Normal 0.02-4.00 [facility] Comment on above: Result Comment: This test [...] L 506.0200, L501.9985, L503.6005, L501.9910, L501.9520, M200.1000 ####[facility] [address] [place], [place], [address] Partial Thromboplast Timeon 10-17-2024 aPTT Coag (Bld) [Time] 33.3 s Normal 24.1-36.[address] [facility] Comment on above: Performed By: #### L 300.3900, L500.4050, L503.6005, L100.0100, L501.3620, L300.4310 ####[facility] [address] [place], [place], [address] Platelet countOrdered By: Edilson Irwin on 10-17-2024 Platelets (Bld) [#/Vol] 275 10*3/uL 150-450 [facility] Potassium measurement (mass/ volume)Ordered By: Gamal Irwin on 10-17-2024 Potassium (Unsp spec) [Mass/Vol] 4.5 mmol/L 3.3-5.1 [facility] Prothrombin Time w/INRon INR Coag (PPP) [Relative time] 1.6 {INR} Normal [facility] Comment on above: Performed By: #### L 300.3900, L500.4050, L503.6005, L100.0100, L501.3620, L300.4310 ####[facility] [address] [place], [address] PT Coag (PPP) [Time] 19.7 s High 11.7-14.9 [facility] Comment on above: Performed By: #### L 300.3900, L500.4050, L503.6005, L100.0100, L501.3620, L300.4310 ####[facility] [address] [place], [address] Prothrombin timeOrdered By: Gamalbala Irwin on 10-17-2024 PT Coag (PPP) [Time] 19.7 s High 11.7-14.9 [facility] RBC Auto (Bld) [#/Vol]Ordere d By: Gamal Irwin on 10-17-2024 RBC (Bld) [#/Vol] 4.48 10*6/uL Low 4.6-6.2 [facility] Serum creatinine measurement (mass/volume)Ordered By: Gamal Irwin on 10-17-2024 Creatinine [Mass/Vol] 2.76 mg/dL High 0.70-1.20 [facility] Serum globulin measurementOr dered By: Gamal Irwin on 10-17-2024 Globulin (S) [Mass/Vol] 4.3 g/dL High 2.2-4.2 [facility] Serum glucose measurement (m ass/volume)Ordered By: Gamal Irwin on 10-17-2024 Glucose [Mass/Vol] 344 mg/dL High 70-99 [facility] Serum or plasma alanine gandhi otransferase (ALT) measurementOrdered By: Gamalbala Irwin on 10-17-2024 ALT [Catalytic activity/Vol] 77 U/L High <47 [facility] Serum or plasma albumin makenzie urement (mass/volume)Ordered By: Gamal Irwin on 10-17-2024 Albumin [Mass/Vol] 4.0 g/dL 3.4-4.8 [facility] Serum or plasma albumin/glob ulin mass ratioOrdered By: Gamalbala Irwin on 10-17-2024 Albumin/Globulin [Mass ratio] 0.9 {ratio} 0.9-2.4 [facility] Serum or plasma alkaline manju sphatase measurementOrdered By: Gamalbala Irwin on 10-17-2024 ALP [Catalytic activity/Vol] 104 U/L 40-129 [facility] Serum or plasma calcium makenzie urement (mass/volume)Ordered By: Gamalbala Irwin on 10-17-2024 Calcium [Mass/Vol] 9.5 mg/dL 7.6-11.0 [facility] Serum or plasma creatine kin ase activityOrdered By: Gamal Irwin on 10-17-2024 CK [Catalytic activity/Vol] 03729 U/L High 24-195 [facility] Serum or plasma urea nitroge n measurement (mass/volume)Ordered By: Gamalbala Irwin on 10-17-2024 Urea nitrogen [Mass/Vol] 55 mg/dL High 4-19 [facility] Sodium levelOrdered By: Gamalbala Irwin on 10-17-2024 Sodium [Moles/Vol] 138 mmol/L 133-145 [facility] TSH DL <= 0.005 mIU/L QnOrde red By: Kenrick Rosario on 10-17-2024 TSH Qn 0.834 uIU/mL 0.300-4.200 [facility] Thyroid Stim Hormone (TSH)on 10-17-2024 TSH 0.834 uIU/mL Normal 0.300-4.200 [facility] Comment on above: Performed By: #### L 506.0200, L501.9985, L503.6005, L501.9910, L501.9520, M200.1000 ####[facility] [address] [place], [address] Total carbon dioxide measure mentOrdered By: Gamalbala Irwin on 10-17-2024 CO2 [Moles/Vol] 21 mmol/L [facility] Total proteinOrdered By: Gamalbala Irwin on 10-17-2024 Protein [Mass/Vol] 8.2 g/dL 5.9-8.4 [facility] Troponin T HS 2 HRon 025 Trop T High Sen 69 ng/L Invalid Interpretation Code <=22 [facility] Comment on above: Result Comment: Crit ical Result(s) Called LSPARR at: 2115 by:ADIEL??Results read back by same. Performed By: #### L 499.0042 ####[facility] [address] [place], [place], [address] Troponin T.cardiac [Mass/vol ume] in Serum or Plasma by High sensitivity methodOrdered By: Gamal Irwin on 10-17-2024 Troponin T.cardiac High sensitivity method [Mass/Vol] 67 ng/L Critically high <22 [facility] Troponin T.cardiac High sensitivity method [Mass/Vol] 69 ng/L Critically high <22 [facility] Comment on above: Critical Result(s) C alled LSPARR at: 2115 by: ADIEL Results read back by same. Troponin T.cardiac High sensitivity method [Mass/Vol] 64 ng/L Critically high <22 [facility] Comment on above: Critical Result(s) C alled LSPARR at: 2024 by: ADIEL Results read back by same. Vitamin B12on 10-17-2024 Cobalamin (Vitamin B12) [Mass/Vol] 680 pg/mL Normal 180-914 [facility] Comment on above: Performed By: #### L 503.0106 ####[facility] [address] [place], [place], [address] Vitamin B12 ser/plasOrdered By: Kenrick Rosario on 10-17-2024 Cobalamin (Vitamin B12) [Mass/Vol] 680 pg/mL 180-914 [facility] White blood cell (WBC) count Ordered By: Gamal Irwin on 10-17-2024 WBC (Bld) [#/Vol] 15.5 10*3/uL High 4.4-11.0 [facility] CNTHERAPYon 09-16-2024 CNTHERAPY OT/PT/Speech Visit (PTWS) FARRUKHGUSTAVO ([id number]) 1950 M Date Time Provider Department 09/16/24 10:45 AM MONA ROACH PTWS Date Time Provider Department Center 09/16/2024 10:45 AM [id number], SEAN PTBOOM Yeny Dawkins Reason for Visit: [...] tablet by mouth once daily. - Ipratropium Frankenmuth (ATROVENT) 21 mcg (0.03 %) nasal spray Use 1 Bude in the nose three times a day [...] Take 500 mg by mouth once daily. Jacquard Card Cutter: Therapy (PT/OT/Speech/Resp) ID: [id number] 09/16/2024 11:05 AM Author: MONA ROACH Signed by MONA ROACH PT on 09/16/2024 at 11:05 AM Document text: Program_ID:[id number] Access Code: [email or web address] URL: [email or web address] Date: 09-16-2024 Prepared By: Mona Roach Program [...] 3 sets - 10 reps -- Normal [facility] THERAPY NTon 09-16-2024 THERAPY NT HNO ID: [id number] Author: MONA ROACH PT Service: ? 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 He has underlying history of hypertension, diabetes mellitus, and diastolic heart failure. He was admitted to 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 He was diagnosed with left MCA infarct with petechial hemorrhage, transferred to [facility]. He also had left M1 occlusion. [...] arteries bilaterally. He was admitted again to [facility] 11/22/2022 for complaint of slurred speech [...] on 11/24/2022. Most recent MRI brain from [facility] 11/22/2022 demonstrated acute infarct in the right [...] delay since (more content not included)... Normal [facility] CRP [Mass/Vol] mg/L Normal <0.9 [facility] Comment on above: Order Comment: Speci men Type: BLOOD SPECIMENOrdering Facility: [facility] Address: [address] [place] [address] Performed By: #### 1 988-5 ####[facility] [id number] [place] [address] [place] Fact VIII Act/Nor PPPon 07-0 Coagulation factor VIII activity actual/normal Coag (PPP) [Relative time] 221 % High 50-173 [facility] Comment on above: Order Comment: A[facility] Type: BLOOD SPECIMENOrdering Facility: [facility] Address: [address] [place] [address] Result Comment: The factor VIII clottable activity level is elevated. This can be observed during the acute phase response. Persistent elevation of factor VIII, however, has been shown to be a risk factor for venous thrombosis. Suggest rechecking the factor VIII level in 1-2 months. Performed By: #### 3 209-4 ####[facility] LABCLIA [id number] [address] [place] [id number] 07-30-2024 [id number] HNO ID: [id number] Author: MONA ROACH PT Service: ? Author Type: Physical Therapist Type: [id number] Filed: 07/30/2024 14:55 Note Text: [facility] Physical Therapy Plan of Care Certification Patient Name: Gustavo Patton : 1950 [facility] #: [id number] Date: 07/29/2024 To: Layne Manley Jr., MD [...] in SLS to reflect decreased fall risk. [place] in home exercise program including cardiovascular exercise. Patient Goals: Get stronger, walk better Time Frame for Goals and Treatment : 09/29/24 Planned Interventions, Frequency, and Duration: Current Frequency: 1x/week Duration: 8 weeks Total Number of Visits Planned: 8 Planned Treatment Interventions: Therapeutic exercise (64171), Neuromuscular re-education (17261), Manual therapy (45761), Therapeutic activities (95443), Self-assisted management (09726), Patient/Family/Caregiv er Education, Body Mechanics Training PLAN [...] reviewed the treatment plan for Gustavo Patton, [facility]# [id number] for the period of 07/29/24 -- 10/29/24, established on 07/29/2024. Signature certifies the need for therapy services. Normal [facility] CNTHERAPYon 07-29-2024 CNTHERAPY OT/PT/Speech Visit (PTWS) GUSTAVO PATTON ([id number]) 1950 M Date Time Provider Department 07/29/24 2:00 PM MONA ROACH PTWS Date Time Provider Department Center 07/29/2024 2:00 PM [id number], SEAN PTWS Chip Estimate Reason for Visit: PT Eval [747] Primary [...] tablet by mouth once daily. - Ipratropium Frankenmuth (ATROVENT) 21 mcg (0.03 %) nasal spray Use 1 Bude in the nose three times a day [...] Take 500 mg by mouth once daily. Jacquard Card Cutter: Addendum Therapy (PT/OT/Speech/Resp) ID: [id number] 07/29/2024 2:41 PM Author: MONA ROACH Signed by MONA ROACH PT on 07/29/2024 at 2:41 PM * * * This document replaces document [id number] * * * Document text: Program_ID:[id number] Access Code: [email or web address] URL: [email or web address] Date: 07-29-2024 Prepared By: Mona Roach Program [...] 3 sets - 10 reps -- Normal [facility] THERAPY NTon 07-29-2024 THERAPY NT HNO ID: [id number] Author: MONA ROACH PT Service: ? 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 Dill to determine if further workup [...] to suggest vascular cause. D/w pt and career professional dx of PD, physiology, testing, treatment and [...] concerns of parkinsonism. Patient presents with his salary and wage administrator for follow-up after starting this medication, notes [...] 3 times a day and patient and salary and wage administrator amenable, discussed increased risk of side effects with increasing this medication and they agree and understand. Discussed importance of physical activity, discussed physical therapy and patient amenable to this. Would like to continue at [facility] as he is called her in the past and will fax order for physical therapy over today. No falls since last appointment, discussed fall prevention with patient and salary and wage administrator. 2. Recurrent strokes (HCC) - ICD9: 434.91, [...] patient amenabl (more content not included)... Normal [facility] Andino Arterial study reportOrdered By: Gustavo Malik on 05-01-2024 Noninvasive arteriosclerosis study report [facility] [address] [place] [address] Lower Ext Art Exam w/o Exercis 05/01/24 1104 MR#: [id number] Acct: [id number] Name: GUSTAVO PATTON Rep #:[id number] : 1950 73 From: Gustavo Malik MD Attending Dr: Dr. Fabien Leal DPM Status: REG CLI Ordering Dr: Fabien Leal DPJackeline Date: 05/01/24 [facility] Sex[facility] M C Admitted: Reason For [...] Date Dictated: 05/01/24 1104 Date Transcribed: 05/01/241709 [employer] Sales Representative: Signed [facility] Other Phone: Lower Ext Art Exam w/o Exerc ed 05-01-2024 Lower Ext Art Exam w/o Exercis Normal [facility] Cardiology Visit Reporton Cardiology Visit Report Normal [facility] PT D/C Summary (1)on 024 PT D/C Summary (1) Normal [facility] Absolute neutrophil countOrd ered By: Tracie Abreu on 01-12-2024 Neutrophils (Bld) [#/Vol] 6.5 10*3/uL 2.0-7.7 [facility] Basophil percentageOrdered B y: Tracie Abreu on 01-12-2024 Basophils/100 WBC (Bld) 0.8 % 0-1 [facility] CBC W/Diff, Automatedon Absolute Lymph 2.33 X10 3/uL Normal 0.83-4.51 [facility] Comment on above: Order Comment: Order Date: 01/12/24Order Info: 0184-1 - CBCD Performed By: #### L 100.0100, L501.9985 ####[facility] [address] [place], [address] Absolute Neut 6.5 X10 3/uL Normal 2.0-7.7 [facility] Comment on above: Order Comment: Order Date: 01/12/24Order Info: 0184-1 - CBCD Performed By: #### L 100.0100, L501.9985 ####[facility] [address] [place], [address] Basophils/100 WBC (Bld) 0.8 % Normal 0-1 [facility] Comment on above: Order Comment: Order Date: 01/12/24Order Info: 0184-1 - CBCD Performed By: #### L 100.0100, L501.9985 ####[facility] [address] [place], [address] Eosinophils/100 WBC (Bld) 4.0 % Normal 0-5 [facility] Comment on above: Order Comment: Order Date: 01/12/24Order Info: 0184-1 - CBCD Performed By: #### L 100.0100, L501.9985 ####[facility] [address] [place], [address] Erythrocyte distribution width (RBC) [Ratio] 12.7 % Normal 11.6-14.6 [facility] Comment on above: Order Comment: Order Date: 01/12/24Order Info: 0184-1 - CBCD Performed By: #### L 100.0100, L501.9985 ####[facility] [address] [place], [address] Hematocrit (Bld) [Volume fraction] 42.8 % Normal 40-54 [facility] Comment on above: Order Comment: Order Date: 01/12/24Order Info: 0184-1 - CBCD Performed By: #### L 100.0100, L501.9985 ####[facility] [address] [place], [address] Hemoglobin (Bld) [Mass/Vol] 13.1 g/dL Normal 13.0-16.5 [facility] Comment on above: Order Comment: Order Date: 01/12/24Order Info: 0184-1 - CBCD Performed By: #### L 100.0100, L501.9985 ####[facility] [address] [place], [address] IG% 0.300 Normal 0.0-0.9 [facility] Comment on above: Order Comment: Order Date: 01/12/24Order Info: 183- - CBCD Result Comment: IG% - Immature Granulocytes (promyelocytes, myelocytes andmetamyelocytes) > 1% indicates that a LEFT SHIFT is Present. Performed By: #### L 100.0100, L501.9985 ####[facility] [address] [place], [address] Lymphocytes/100 WBC (Bld) 22.8 % Normal 19-41 [facility] Comment on above: Order Comment: Order Date: 01/12/24Order Info: 183- - CBCD Performed By: #### L 100.0100, L501.9985 ####[facility] [address] [place], [address] MCH (RBC) [Entitic mass] 29.1 pg Normal 27.0-32.0 [facility] Comment on above: Order Comment: Order Date: 01/12/24Order Info: 183- - CBCD Performed By: #### L 100.0100, L501.9985 ####[facility] [address] [place], [address] MCHC (RBC) [Mass/Vol] 30.6 g/dL Low 32-36 [facility] Comment on above: Order Comment: Order Date: 01/12/24Order Info: 018- - CBCD Performed By: #### L 100.0100, L501.9985 ####[facility] [address] [place], [address] MCV (RBC) [Entitic vol] 95.1 fL High 80-94 [facility] Comment on above: Order Comment: Order Date: 01/12/24Order Info: 4-1 - CBCD Performed By: #### L 100.0100, L501.9985 ####[facility] [address] [place], [address] Monocytes/100 WBC (Bld) 8.5 % Normal 0-10 [facility] Comment on above: Order Comment: Order Date: 01/12/24Order Info: 4-1 - CBCD Performed By: #### L 100.0100, L501.9985 ####[facility] [address] [place], [address] Neutrophils/100 WBC (Bld) 63.6 % Normal 47-70 [facility] Comment on above: Order Comment: Order Date: 01/12/24Order Info: 183-1 - CBCD Performed By: #### L 100.0100, L501.9985 ####[facility] [address] [place], [address] Nucleated RBC (Bld) [#/Vol] 0 10*3/uL Normal 0-5 [facility] Comment on above: Order Comment: Order Date: 01/12/24Order Info: 183-1 - CBCD Performed By: #### L 100.0100, L501.9985 ####[facility] [address] [place], [address] Platelet mean volume (Bld) [Entitic vol] 12.0 fL Normal 6.2-12.0 [facility] Comment on above: Order Comment: Order Date: 01/12/24Order Info: 4-1 - CBCD Performed By: #### L 100.0100, L501.9985 ####[facility] [address] [place], [address] Platelets (Bld) [#/Vol] 311 10*3/uL Normal 150-450 [facility] Comment on above: Order Comment: Order Date: 01/12/24Order Info: 0184-1 - CBCD Performed By: #### L 100.0100, L501.9985 ####[facility] [address] [place], [address] RBC (Bld) [#/Vol] 4.50 10*6/uL Low 4.6-6.2 [facility] Comment on above: Order Comment: Order Date: 01/12/24Order Info: 018-1 - CBCD Performed By: #### L 100.0100, L501.9985 ####[facility] [address] [place], [address] RDW SD 43.9 fl Normal 35.1-43.9 [facility] Comment on above: Order Comment: Order Date: 01/12/24Order Info: 183- - CBCD Performed By: #### L 100.0100, L501.9985 ####[facility] [address] [place], [address] WBC (Bld) [#/Vol] 10.2 10*3/uL Normal 4.4-11.0 [facility] Comment on above: Order Comment: Order Date: 01/12/24Order Info: 018- - CBCD Performed By: #### L 100.0100, L501.9985 ####[facility] [address] [place], [address] Eosinophil percentageOrdered By: Tracie Abreu on 01-12-2024 Eosinophils/100 WBC (Bld) 4.0 % 0-5 [facility] Erythrocyte distribution wid th ratioOrdered By: Tracie Joel on 01-12-2024 Erythrocyte distribution width (RBC) [Ratio] 12.7 % 11.6-14.6 [facility] Erythrocyte distribution wid th standard deviationOrdered By: Tracie Abreu on 01-12-2024 Erythrocyte distribution width (RBC) [Entitic vol] 43.9 fL 35.1-43.9 [facility] Hematocrit Auto (Bld) [Volum e fraction]Ordered By: Tracie Abreu on 01-12-2024 Hematocrit (Bld) [Volume fraction] 42.8 % 40-54 [facility] Hemoglobin A1con 01-12-2024 HbA1c (Bld) [Mass fraction] 7.6 % High 3.8-5.6 [facility] Comment on above: Order Comment: Order Date: 01/12/24Order Info: 4548-4 - A1C Result Comment: Norm al < 5.7 % Prediabetic 5.7 - 6.4 % Diabetic >or= 6.5 % Please note range changes. Performed By: #### L 100.0100, L501.9985 ####[facility] [address] [place], [address] Hemoglobin A1c percentageOrd ered By: Tracie Abreu on 01-12-2024 HbA1c (Bld) [Mass fraction] 7.6 % High 3.8-5.6 [facility] Comment on above: Normal < 5.7 % Predi abetic 5.7 - 6.4 % Diabetic >or= 6.5 % Please note range changes. Hemoglobin measurementOrdere d By: Tracie Abreu on 01-12-2024 Hemoglobin (Bld) [Mass/Vol] 13.1 g/dL 13.0-16.5 [facility] Immature granulocytes/100 WB C Auto (Bld)Ordered By: Tracie Abreu on 01-12-2024 Immature granulocytes/100 WBC (Bld) 0.300 % 0.0-0.9 [facility] Comment on above: IG% - Immature Granu locytes (promyelocytes, myelocytes and metamyelocytes) > 1% indicates that a LEFT SHIFT is Present. Lymphocytes Auto (Unsp spec) [#/Vol]Ordered By: Tracie Abreu on 01-12-2024 Lymphocytes (Bld) [#/Vol] 2.33 10*3/uL 0.83-4.5 1 [facility] Lymphocytes/100 WBC Auto (Un sp spec)Ordered By: Tracie Abreu on 01-12-2024 Lymphocytes/100 WBC (Bld) 22.8 % 19-41 [facility] MCV (mean corpuscular volume ) determinationOrdered By: Tracie Abreu on 01-12-2024 MCV (RBC) [Entitic vol] 95.1 fL High 80-94 [facility] Mean corpuscular hemoglobin (MCH) determinationOrdered By: Tracie Abreu on 01-12-2024 MCH (RBC) [Entitic mass] 29.1 pg 27.0-32.0 [facility] Mean corpuscular hemoglobin concentration (MCHC) determinationOrdered By: Tracie Abreu on 01-12-2024 MCHC (RBC) [Mass/Vol] 30.6 g/dL Low 32-36 [facility] Mean platelet volume determi nationOrdered By: Tracie Abreu on 01-12-2024 Platelet mean volume (Bld) [Entitic vol] 12.0 fL 6.2-12.0 [facility] Monocyte percentageOrdered B y: Tracie Abreu on 01-12-2024 Monocytes/100 WBC (Bld) 8.5 % 0-10 [facility] Neutrophil percentageOrdered By: Tracie Abreu on 01-12-2024 Neutrophils/100 WBC (Bld) 63.6 % 47-70 [facility] Nucleated red blood cell per centageOrdered By: Tracie Abreu on 01-12-2024 Nucleated RBC/100 WBC (Bld) [Ratio] 0 % 0-5 [facility] Platelet countOrdered By: Kesha Abreu on 01-12-2024 Platelets (Bld) [#/Vol] 311 10*3/uL 150-450 [facility] RBC Auto (Bld) [#/Vol]Ordere d By: Tracie Abreu on 01-12-2024 RBC (Bld) [#/Vol] 4.50 10*6/uL Low 4.6-6.2 [facility] White blood cell (WBC) count Ordered By: Tracie Abreu on 01-12-2024 WBC (Bld) [#/Vol] 10.2 10*3/uL 4.4-11.0 [facility] Re-Evaluation - PT (1)on Re-Evaluation - PT (1) Normal [facility] 12-21-2023 MARIANAN Telephone (KD) FARRUKHGUSTAVO ([id number]) 1950 M Date Time Provider Department 12/21/23 FALLON STEINER During your visit today, we recorded the following information about you: Erma Olsen RN 12/21/2023 3:52 PM Signed Patient's recent Neurology note (12/06/23) has been faxed to his PCP office at [phone], for their update and for continuation of care of patient. Erma Olsen RN Allergies As of Date: 12/21/2023 (No Known Allergies) Date Reviewed: 12/06/2023 Reviewed by: Fallon Steiner PA-C - Fully Assessed Reason for Visit: Patient Request [[id number]] Prescriptions as of 12/21/2023 - carbidopa-levodopa (SINEMET 25-100) 25-100 mg per tablet TAKE 1.5 TABLETS BY MOUTH THREE TIMES DAILY (AT 9AM, 1PM AND 5PM) - apixaban (ELIQUIS) 5 mg tab(s) Take 1 tablet by mouth two times a day. - multivitamin tablet Take 1 tablet by mouth once daily. - Ipratropium Frankenmuth (ATROVENT) 21 mcg (0.03 %) nasal spray Use 1 Bude in the nose three times a day [...] Status:Closed by ERMA OLSEN on 12/21/23 Normal [facility] CNOVon 12-06-2023 CNOV Office Visit (KD ) GUSTAVO PATTON ([id number]) 1950 M Date Time Provider Department 12/06/23 [...] like pt to follow up with his color printer operator Dr. Dill to determine if further workup [...] to suggest vascular cause. 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 Patient presents with salary and wage administrator for follow-up appointment. At last appointment was started on Sinemet due to new shuffled gait. Patient states he has been responding well to the Sinemet. Legal Instruments Examiner states that he gets up very quickly [...] as pe (more content not included)... Normal [facility]UST[facility] PAT[facility] ([id number]) 1950 M Date Time Provider Department 12/06/23 QUEENER, FALLON NEMOWS During your visit today, we recorded the following information about you: Fallon Steiner PA-C 12/06/2023 1:13 PM Signed Please fax PT order to [facility] in [place]. Liv Shaw LPN 12/06/2023 2:10 PM Signed [...] tablet by mouth once daily. - Ipratropium Frankenmuth (ATROVENT) 21 mcg (0.03 %) nasal spray Use 1 Bude in the nose three times a day [...] Encounter Status:Closed by FALLON STEINER on 12/06/23 Normal [facility] CNOVon 10-20-2023 CNOV Office Visit (NEMOWS ) GUSTAVO PATTON ([id number]) 1950 M Date Time Provider Department 10/20/23 [...] rare (<1.0%). Isolated VEs were occasional (2.0%, 16104), VE Couplets were rare (<1.0%, 70), and no VE Triplets were present. Ventricular Bigeminy and Trigeminy were present. Pt has also seen Dr. Alfredo Hart of [facility] and I have discussed plan with [...] stopping Plavix. Plan: -I will contact his MEDICAL RECORD LIBRARIANS TEACHER that sees him through the community care network via [facility] to update her on medication recommendations (Dorinda White, MEDICAL RECORD LIBRARIANS TEACHER [phone] -Rx apixaban 5 mg BID. -Stop Plavix. [...] is tr (more content not included)... Normal [facility] 10-20-2023 [facility] Telephone (KD) GUSTAVO PATTON ([id number]) 1950 M Date Time Provider Department 10/20/23 LAYNE MANLEY JR During your visit today, we recorded the following information about you: Liv Shaw LPN 10/20/2023 12:55 PM Signed Layne Manley Jr., MD P [facility] Neur Sindhu Nurse Please help pt schdule [...] tablet by mouth once daily. - Ipratropium Frankenmuth (ATROVENT) 21 mcg (0.03 %) nasal spray Use 1 Bude in the nose three times a day [...] Encounter Status:Closed by LIV SHAW on 10/20/23 [facility] 10-03-2023 MARIANAN Telephone (HEMAWS) FARRUKHGUSTAVO Nogueira ([id number]) 1950 M Date Time Provider Department 10/03/23 EDITH HART During your visit today, we recorded the following information about you: Masha Pichardo 10/03/2023 11:46 AM Signed Please call Dorinda [phone]. She has questions regarding plavix and eliquis. Haydee Kelley LPN 10/03/2023 1:07 PM Signed Dorinda from [employer] is calling. Asking if pt is to stop Plavix as pt was started on Eliquis. Per OV note -Rx apixaban 5 mg BID. -Stop Plavix. -Okay to resume ASA for history of PVD (suggested by SYLVIE 12/2021). Relayed that to Dorinda. However pt went to [facility], was $500, he did pick it up and pay for it but will not be able to do that every month. Will ask our social insurance analyst first if there is a Copay card he can utilize. Dr Hart, is pt to follow up here or resume f/u with your recommendation to PCP. AGATA Mohan Samantha, LISW 10/03/2023 1:39 PM Signed Unfortunately since pt filled the script he is ineligible for the co-pay card. However, he could likely qualify for the patient assistance program through [employer]. I'll prepare the application and contact Dorinda and patient to discuss. JOSELINE Adkins-Payal Allergies As of Date: 10/03/2023 (No Known Allergies) Date Reviewed: 09/25/2023 Reviewed by: Cleveland Leary MA - Fully Assessed Reason for Visit: Medication Question [7118] Prescriptions as of 10/03/2023 - apixaban (ELIQUIS) 5 mg tab(s) Take 1 tablet by mouth two times a day. - multivitamin tablet Take 1 tablet by mouth once daily. 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 He has underlying history of hypertension, diabetes mellitus, and diastolic heart failure. He was admitted to 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 He was diagnosed with left MCA infarct with petechial hemorrhage, transferred to [facility]. He also had left M1 occlusion. [...] arteries bilaterally. He was admitted again to [facility] 11/22/2022 for complaint of slurred speech [...] on 11/24/2022. Most recent MRI brain from [facility] 11/22/2022 demonstrated acute infarct in the right [...] and orthostasis. Has history of developmental delay [facility] (more content not included)... Normal [facility] MRA Head vessels WO contrast on 08-21-2023 * * *Final Report* * * DATE OF EXAM: Aug 21 2023 2:43PM [facility] 0272 - MRA BRAIN WO IVCON / PROCEDURE REASON: Cerebral infarction, unspecified mechanism (HCC) * * * * Physician Interpretation * * * * EXAMINATION: MRA BRAIN WO IVCON, MRA CAROTID WO IVCON CLINICAL HISTORY: Recurrent strokes. TECHNIQUE: Intracranial and extracranial 3D udns-cm-znfyia MRA with post-processing performed at the modality [...] basilar arteries. The proximal AICAs/PICAs, SCA's and gas pipe layer are patent without evidence of focal significant [...] Left DIVISION OF RADIOLOGY Provider, Selma Casarez [facility] - 08/21/2023 * * *Final Report* * * DATE OF EXAM: Aug 21 2023 2:43PM [facility] 0272 - MRA BRAIN WO IVCON / PROCEDURE REASON: Cerebral infarction, unspecified mechanism (HCC) * * * * Physician Interpretation * * * * EXAMINATION: MRA BRAIN WO IVCON, MRA CAROTID WO IVCON CLINICAL HISTORY: Recurrent strokes. TECHNIQUE: Intracranial and extracranial 3D ljrc-zi-simamm MRA with post-processing performed at the modality [...] basilar arteries. The proximal AICAs/PICAs, SCA's and gas pipe layer are patent without evidence of focal significant [...] by NASCET criteria. Patent cervical vertebral arteries. [employer] Sales Representative: ABHISHEK Transcribe Date/Time: Aug 21 2023 2:53P Dictated by : EDITH TOLBERT MD This examination was interpreted and the report reviewed and electronically signed by: EDITH TOLBERT MD on Aug 21 2023 3:10PM EST [facility] MRA Neck vessels WO contrast on 08-21-2023 * * *Final Report* * * DATE OF EXAM: Aug 21 2023 2:43PM [facility] 0275 - MRA CAROTID WO IVCON / PROCEDURE REASON: Cerebral infarction, unspecified mechanism (HCC) * * * * Physician Interpretation * * * * EXAMINATION: MRA BRAIN WO IVCON, MRA CAROTID WO IVCON CLINICAL HISTORY: Recurrent strokes. TECHNIQUE: Intracranial and extracranial 3D kgaw-yx-uhbgui MRA with post-processing performed at the modality [...] basilar arteries. The proximal AICAs/PICAs, SCA's and gas pipe layer are patent without evidence of focal significant [...] configuration. Dominance: Left DIVISION OF RADIOLOGY Provider, [facility] - 08/21/2023 * * *Final Report* * * DATE OF EXAM: Aug 21 2023 2:43PM [facility] 0275 - MRA CAROTID WO IVCON / PROCEDURE REASON: Cerebral infarction, unspecified mechanism (HCC) * * * * Physician Interpretation * * * * EXAMINATION: MRA BRAIN WO IVCON, MRA CAROTID WO IVCON CLINICAL HISTORY: Recurrent strokes. TECHNIQUE: Intracranial and extracranial 3D mamv-gg-eazmfc MRA with post-processing performed at the modality [...] basilar arteries. The proximal AICAs/PICAs, SCA's and gas pipe layer are patent without evidence of focal significant [...] by NASCET criteria. Patent cervical vertebral arteries. [employer] Sales Representative: ABHISHEK Transcribe Date/Time: Aug 21 2023 2:53P Dictated by : EDITH TOLBERT MD This examination was interpreted and the report reviewed and electronically signed by: EDITH TOLBERT MD on Aug 21 2023 3:10PM EST [facility] No Panel Informationon 08-20 IMPRESSION: Relative paucity of distal branches of the left MCA compatible with the remote cortical infarct in this vascular territory. Otherwise no evidence of significant large vessel intracranial occlusive disease. No significant stenosis in either carotid bifurcation by NASCET criteria. Patent cervical vertebral arteries. [employer] Sales Representative: PSCB Transcribe Date/Time: Aug 21 2023 2:53P Dictated by : EDITH TOLBERT MD This examination was interpreted and the report reviewed and electronically signed by: EDITH TOLBERT MD on Aug 21 2023 3:10PM [facility] DIVISION OF RADIOLOGY Radiology Study observation (narrative) [facility] No Panel InformationOrdered By: Ccf Provider on 08-21-2023 [facility] CNTHERAPYon 05-19-2023 CNTHERAPY OT/PT/Speech Visit (OTNOCA) GUSTAVO PATTON ([id number]) 1950 M Date Time Provider Department 05/19/23 12:45 PM CATHLEEN GOEL Date Time Provider Department Center 05/19/2023 12:45 PM [id number], JULIE A [facility] N Reason for Visit: OT Discharge [750] [...] TAKE 2 TABS TWICE DAILY Letter Text [facility] [place] [facility]OT[facility] GUSTAVO PATTON ([id number]) 1950 M Date Time Provider Department 05/11/23 [...] sister who is DPOA and lives in [place] regarding Gustavo's recent clinical assessment results of [...] Encounter Status:Closed by CATHLEEN GOEL on 05/11/23 [facility] CNTHERAPYon 05-04-2023 CNTHERAPY OT/PT/Speech Visit (OTNOCA) GUSTAVO PATTON ([id number]) 1950 M Date Time Provider Department 05/04/23 1:30 PM CATHLEEN GOEL OTJOSHUA Date Time Provider Department Center 05/04/2023 1:30 PM [id number][facility] Reason for Visit: OT EVAL [...] WEEKS, THEN TAKE 2 TABS TWICE DAILY [facility] Basophil percentageOrdered B y: Madhavi Chaudhry on 01-05-2023 Basophil percentage < 1.0 mg/dL 0.70-1.30 [facility] No Panel InformationOrdered By: Madhavi Chaudhry on 01-05-2023 Bedside Estimated GFR (eGFR) > 60.0000 mL/min >60 [facility] Basophil percentageOrdered B y: Ayla Turner on 12-14-2022 WBC (Bld) [#/Vol] 5.7 10*3/uL 4.4-11.0 [facility] Blood erythrocytes count (nu mber/volume)Ordered By: Aylajose eduardo Turner on 12-14-2022 RBC (Bld) [#/Vol] 4.31 10*6/uL 4.6-6.2 [facility] Blood hemoglobin measurement (mass/volume)Ordered By: Ayla Turner on 12-14-2022 Hemoglobin (Bld) [Mass/Vol] 12.9 g/dL 13.0-16.5 [facility] Blood platelet mean volumeOr dered By: Ayla Turner on 12-14-2022 Platelet mean volume (Bld) [Entitic vol] 12.2 fL 6.2-12.0 [facility] Determination of erythrocyte mean corpuscular volume (MCV)Ordered By: Ayla Turner on 12-14-2022 MCV (RBC) [Entitic vol] 97.0 fL 80-94 [facility] Hematocrit Auto (Bld) [Volum e fraction]Ordered By: Ayla Turner on 12-14-2022 Hematocrit (Bld) [Volume fraction] 41.8 % 40-54 [facility] Laboratory - Hematology and Cell countsOrdered By: Ayla Turner on 12-14-2022 Erythrocyte distribution width (RBC) [Entitic vol] 44.0 fL 35.1-43.9 [facility] Erythrocyte distribution width (RBC) [Ratio] 12.2 % 11.6-14.6 [facility] MCH (RBC) [Entitic mass] 29.9 pg 27.0-32.0 [facility] MCHC Auto (RBC) [Mass/Vol]Or dered By: Ayla Turner on 12-14-2022 MCHC (RBC) [Mass/Vol] 30.9 g/dL 32-36 [facility] Platelets bldOrdered By: Narayan Turner on 12-14-2022 Platelets (Bld) [#/Vol] 273 10*3/uL 150-450 [facility] Blood hemoglobin measurement (mass/volume)Ordered By: Connie He on 12-01-2022 Hemoglobin (Bld) [Mass/Vol] 11.4 g/dL 13.0-16.5 [facility] Glucose Glucometer (BldC) [M ass/Vol]Ordered By: Connie He on 12-01-2022 Glucose [Mass/Vol] 108 mg/dL 74-106 [facility] Comment on above: MANAGEMENT OF PATIEN T CARE PER NURSING PROTOCOL Hematocrit Auto (Bld) [Volum e fraction]Ordered By: Connie He on 12-01-2022 Hematocrit (Bld) [Volume fraction] 35.9 % 40-54 [facility] Lower GI hemoglobin IA Ql (S tl)Ordered By: Connie He on 2022 Stool Occult Blood (DEJAH) Positive [facility] Basophil percentageOrdered B y: Jerod Cavazos on 11-23-2022 Chloride [Moles/Vol] 104 mmol/L 98-107 [facility] Glucose [Mass/Vol] 100 mg/dL 74-106 [facility] Comment on above: Fasting Glucose resu lt from 100 to 125 mg/dL suggests IMPAIRED HOMEOSTASIS per A.D.A. criteria. Potassium [Moles/Vol] 3.8 mmol/L 3.5-5.1 [facility] Sodium [Moles/Vol] 137 mmol/L 136-145 [facility] WBC (Bld) [#/Vol] 7.2 10*3/uL 4.4-11.0 [facility] Cholesterol [Mass/Vol] 97 mg/dL <[address] [facility] Comment on above: <200 mg/dL Desirable 200-240 mg/dL Borderline >240 mg/dL High Risk Triglyceride [Mass/Vol] 77 mg/dL <199 [facility] Comment on above: The drugs N-Acetylcy steine and Metamizole may falsely depress this assay.Serum Triglycerides Reference Interval Normal <150 mg/dL Borderline high 150 - 199 mg/dL High 200 - 499 mg/dL Very High > or = 500 mg/dL Blood erythrocytes count (nu mber/volume)Ordered By: Jerod Cavazos on 11-23-2022 RBC (Bld) [#/Vol] 4.05 10*6/uL 4.6-6.2 [facility] Blood hemoglobin measurement (mass/volume)Ordered By: Jerod Cavazos on 11-23-2022 Hemoglobin (Bld) [Mass/Vol] 12.5 g/dL 13.0-16.5 [facility] Blood platelet mean volumeOr dered By: Jerod Cavazos on 11-23-2022 Platelet mean volume (Bld) [Entitic vol] 10.5 fL 6.2-12.0 [facility] Determination of erythrocyte mean corpuscular volume (MCV)Ordered By: Jerod Cavazos on 11-23-2022 MCV (RBC) [Entitic vol] 93.3 fL 80-94 [facility] Hematocrit Auto (Bld) [Volum e fraction]Ordered By: Jerod Cavazos on 11-23-2022 Hematocrit (Bld) [Volume fraction] 37.8 % 40-54 [facility] - Chemistry and C hemistry - challengeOrdered By: Jerod Cavazos on 11-23-2022 CO2 [Moles/Vol] 27.0 mmol/L 21.0-32.0 [facility] Urea nitrogen/Creatinine [Mass ratio] 20.4 mg/mg 10-20 [facility] - Hematology and Cell countsOrdered By: Jerod Cavazos on 11-23-2022 Erythrocyte distribution width (RBC) [Entitic vol] 43.4 fL 35.1-43.9 [facility] Erythrocyte distribution width (RBC) [Ratio] 12.6 % 11.6-14.6 [facility] MCH (RBC) [Entitic mass] 30.9 pg 27.0-32.0 [facility] MCHC Auto (RBC) [Mass/Vol]Or dered By: Jerod Cavazos on 11-23-2022 MCHC (RBC) [Mass/Vol] 33.1 g/dL 32-36 [facility] No Panel InformationOrdered By: Jerod Cavazos on 11-23-2022 Estimated Creatinine Clearance Calc 64.83 ml/min [facility] Estimated GFR (MDRD) Amer 87 mL/min >60 [facility] Comment on above: GFR Calc Estimated GFR (MDRD) Non-Af Amer 72 mL/min >60 [facility] Comment on above: Non- GFR Calc Platelets bldOrdered By: Alem Cavazos on 11-23-2022 Platelets (Bld) [#/Vol] 280 10*3/uL 150-450 [facility] Serum or plasma calcium makenzie urement (mass/volume)Ordered By: Jerod Cavazos on 11-23-2022 Calcium [Mass/Vol] 8.9 mg/dL 8.5-10.1 [facility] Serum or plasma cholesterol in HDL measurement (mass/volume)Ordered By: Jerod Cavazos on 11-23-2022 Cholesterol in HDL [Mass/Vol] 51 mg/dL >40 [facility] Comment on above: The drugs N-Acetylcy steine and Metamizole may falsely depress this assay. Reference Range HDL <40 mg/dL Low HDL Cholesterol HDL >or= 60 mg/dL High HDL Cholesterol Serum or plasma cholesterol in VLDL measurement (mass/volume)Ordered By: Jerod Cavazos on 11-23-2022 Cholesterol in VLDL [Mass/Vol] 15 mg/dL 5-40 [facility] Serum or plasma creatinine m easurement (mass/volume)Ordered By: Jerod Cavazos on 11-23-2022 Creatinine [Mass/Vol] 1.08 mg/dL 0.70-1.30 [facility] Comment on above: The validity of the calculated GFR & GFRAA in patients over 70 years has not been determined. Clinical correlation is essential. Serum or plasma low density lipoprotein (LDL) cholesterol measurement (mass/volume)Ordered By: Jerod Cavazos on 11-23-2022 Cholesterol in LDL [Mass/Vol] 31 mg/dL 0-130 [facility] Serum or plasma urea nitroge n measurement (mass/volume)Ordered By: Jerod Cavazos on 11-23-2022 Urea nitrogen [Mass/Vol] 22 mg/dL 7-18 [facility] Thin prep Papanicolaou smear with manual screeningOrdered By: Jerod Cavazos on 11-23-2022 Thin prep Papanicolaou smear with manual screening 6 5-15 [facility] Absolute lymphocyte countOrd ered By: Cristhian Carlos on 11-22-2022 Lymphocytes Auto (Unsp spec) [#/Vol] 1.82 10*3/uL 0.83-4.51 [facility] Basophil percentageOrdered B y: Cristhian Carlos on 11-22-2022 Basophils/100 WBC (Bld) 0.6 % 0-1 [facility] Chloride [Moles/Vol] 105 mmol/L 98-107 [facility] Eosinophils/100 WBC (Bld) 1.1 % 0-5 [facility] Glucose [Mass/Vol] 149 mg/dL 74-106 [facility] Comment on above: Fasting Glucose resu lt greater than or equal to 126 mg/dL suggests DIABETES MELLITUS per A.D.A. criteria. Neutrophils (Bld) [#/Vol] 6.9 10*3/uL 2.0-7.7 [facility] Neutrophils/100 WBC (Bld) 70.3 % 47-70 [facility] Potassium [Moles/Vol] 3.9 mmol/L 3.5-5.1 [facility] Sodium [Moles/Vol] 139 mmol/L 136-145 [facility] WBC (Bld) [#/Vol] 9.9 10*3/uL 4.4-11.0 [facility] Blood erythrocytes count (nu mber/volume)Ordered By: Cristhian Carlos on 11-22-2022 RBC (Bld) [#/Vol] 4.00 10*6/uL 4.6-6.2 [facility] Blood hemoglobin measurement (mass/volume)Ordered By: Cristhian Carlos on 11-22-2022 Hemoglobin (Bld) [Mass/Vol] 12.1 g/dL 13.0-16.5 [facility] Blood lymphocytes/100 leukoc ytesOrdered By: Cristhian Carlos on 11-22-2022 Lymphocytes/100 WBC (Bld) 18.5 % 19-41 [facility] Blood monocytes/100 leukocyt esOrdered By: Cristhian Carlos on 11-22-2022 Monocytes/100 WBC (Bld) 9.3 % 0-10 [facility] Blood platelet mean volumeOr dered By: Cristhian Carlos on 11-22-2022 Platelet mean volume (Bld) [Entitic vol] 10.5 fL 6.2-12.0 [facility] Determination of erythrocyte mean corpuscular volume (MCV)Ordered By: Cristhian Carlos on 11-22-2022 MCV (RBC) [Entitic vol] 95.3 fL 80-94 [facility] Hematocrit Auto (Bld) [Volum e fraction]Ordered By: Cristhian Carlos on 11-22-2022 Hematocrit (Bld) [Volume fraction] 38.1 % 40-54 [facility] INR in Blood by Coagulation assayOrdered By: Cristhian Carlos on 11-22-2022 INR Coag (Bld) [Relative time] 1.1 {INR} [facility] - Chemistry and C hemistry - challengeOrdered By: Cristhian Carlos on 11-22-2022 CO2 [Moles/Vol] 26.0 mmol/L 21.0-32.0 [facility] Urea nitrogen/Creatinine [Mass ratio] 21.5 mg/mg 10- [facility] - CoagulationOrde red By: Cristhian Carlos on 11-22-2022 aPTT Coag (Bld) [Time] 25.5 s 24.1-36.[address] [facility] PT Coag (PPP) [Time] 13.7 s 11.7-14.9 [facility] - Hematology and Cell countsOrdered By: Cristhian Carlos on 11-22-2022 Erythrocyte distribution width (RBC) [Entitic vol] 44.0 fL 35.1-43.9 [facility] Erythrocyte distribution width (RBC) [Ratio] 12.6 % 11.6-14.6 [facility] Immature granulocytes/100 WBC (Bld) 0.200 % 0.0-0.9 [facility] Comment on above: IG% - Immature Granu locytes (promyelocytes, myelocytes and metamyelocytes) > 1% indicates that a LEFT SHIFT is Present. MCH (RBC) [Entitic mass] 30.3 pg 27.0-32.0 [facility] Nucleated RBC/100 WBC (Bld) [Ratio] 0 % 0-5 [facility] MCHC Auto (RBC) [Mass/Vol]Or dered By: Cristhian Carlos on 11-22-2022 MCHC (RBC) [Mass/Vol] 31.8 g/dL 32-36 [facility] No Panel InformationOrdered By: Cristhian Carlos on 11-22-2022 Estimated Creatinine Clearance Calc 53.32 ml/min [facility] Estimated GFR (MDRD) Amer 67 mL/min >60 [facility] Comment on above: GFR Calc Estimated GFR (MDRD) Non-Af Amer 56 mL/min >60 [facility] Comment on above: Non- GFR Calc Troponin I High Sensitivity 23 pg/mL 3.0-78.0 [facility] Comment on above: Please Note: New Debbie t Units and Gender Specific Reference Ranges. For more information see Policy Stat Procedure [place] High Sensitivity Troponin (TNIH) and attachments. Platelets bldOrdered By: Winston Carlos on 11-22-2022 Platelets (Bld) [#/Vol] 298 10*3/uL 150-450 [facility] Serum or plasma calcium makenzie urement (mass/volume)Ordered By: Cristhian Carlos on 11-22-2022 Calcium [Mass/Vol] 9.3 mg/dL 8.5-10.1 [facility] Serum or plasma creatinine m easurement (mass/volume)Ordered By: Cristhian Carlos on 11-22-2022 Creatinine [Mass/Vol] 1.35 mg/dL 0.70-1.30 [facility] Comment on above: The validity of the calculated GFR & GFRAA in patients over 70 years has not been determined. Clinical correlation is essential. Serum or plasma urea nitroge n measurement (mass/volume)Ordered By: Cristhian Carlos on 11-22-2022 Urea nitrogen [Mass/Vol] 29 mg/dL 7-18 [facility] Thin prep Papanicolaou smear with manual screeningOrdered By: Cristhian Carlos on 11-22-2022 Thin prep Papanicolaou smear with manual screening 8 5-15 [facility] 09-29-2022 CNCO Letter Text Letter Text Normal [facility] CNCOon 07-19-2022 CNCO Letter Text Letter Text Normal [facility] CNPNon 05-20-2022 CNPN Telephone (AGCARD) GUSTAVO PATTON ([id number]) 1950 M Date Time Provider Department 05/20/22 [...] Encounter Status:Closed by CELINA MARSHALL on 05/20/22 [facility] Absolute lymphocyte countOrd ered By: Ayla Turner on 04-25-2022 Lymphocytes Auto (Unsp spec) [#/Vol] 1.79 10*3/uL 0.83-4.51 [facility] Basophil percentageOrdered B y: Ayla Turner on 04-25-2022 Basophils/100 WBC (Bld) 1.3 % 0-1 [facility] Bilirubin [Mass/Vol] 0.60 mg/dL 0.20-1.00 [facility] Comment on above: For patients on eltr ombopag therapy, use of Dimension [place] TBIL is not recommended. Chloride [Moles/Vol] 104 mmol/L 98-107 [facility] Cholesterol [Mass/Vol] 121 mg/dL <[address] [facility] Comment on above: <200 mg/dL Desirable 200-240 mg/dL Borderline >240 mg/dL High Risk Eosinophils/100 WBC (Bld) 3.2 % 0-5 [facility] Glucose [Mass/Vol] 125 mg/dL 74-106 [facility] Comment on above: Fasting Glucose resu lt from 100 to 125 mg/dL suggests IMPAIRED HOMEOSTASIS per A.D.A. criteria. Neutrophils (Bld) [#/Vol] 5.7 10*3/uL 2.0-7.7 [facility] Neutrophils/100 WBC (Bld) 66.2 % 47-70 [facility] Potassium [Moles/Vol] 3.8 mmol/L 3.5-5.1 [facility] Protein [Mass/Vol] 7.9 g/dL 6.4-8.2 [facility] Sodium [Moles/Vol] 139 mmol/L 136-145 [facility] Triglyceride [Mass/Vol] 92 mg/dL <199 [facility] Comment on above: The drugs N-Acetylcy steine and Metamizole may falsely depress this assay.Serum Triglycerides Reference Interval Normal <150 mg/dL Borderline high 150 - 199 mg/dL High 200 - 499 mg/dL Very High > or = 500 mg/dL WBC (Bld) [#/Vol] 8.7 10*3/uL 4.4-11.0 [facility] Blood erythrocytes count (nu mber/volume)Ordered By: Ayla Statyamileoullesly on 04-25-2022 RBC (Bld) [#/Vol] 4.20 10*6/uL 4.6-6.2 [facility] Blood hemoglobin measurement (mass/volume)Ordered By: Ayla Statyamileoulos on 04-25-2022 Hemoglobin (Bld) [Mass/Vol] 13.1 g/dL 13.0-16.5 [facility] Blood lymphocytes/100 leukoc ytesOrdered By: Ayla Stathopoulos on 04-25-2022 Lymphocytes/100 WBC (Bld) 20.6 % 19-41 [facility] Blood monocytes/100 leukocyt esOrdered By: Ayla Stathopoulos on 04-25-2022 Monocytes/100 WBC (Bld) 8.6 % 0-10 [facility] Blood platelet mean volumeOr dered By: Ayla Stathopoulos on 04-25-2022 Platelet mean volume (Bld) [Entitic vol] 10.9 fL 6.2-12.0 [facility] Determination of erythrocyte mean corpuscular volume (MCV)Ordered By: Ayla Stathopoulos on 04-25-2022 MCV (RBC) [Entitic vol] 96.9 fL 80-94 [facility] Hematocrit Auto (Bld) [Volum e fraction]Ordered By: Ayla Turner on 04-25-2022 Hematocrit (Bld) [Volume fraction] 40.7 % 40-54 [facility] - Chemistry and C hemistry - challengeOrdered By: Aylakatelynn Turner on 04-25-2022 ALP [Catalytic activity/Vol] 93 U/L 45-117 [facility] ALT [Catalytic activity/Vol] 116 U/L 16-61 [facility] CO2 [Moles/Vol] 29.0 mmol/L 21.0-32.0 [facility] Globulin (S) [Mass/Vol] 3.9 g/dL 2.2-4.2 [facility] Urea nitrogen/Creatinine [Mass ratio] 19.1 mg/mg 10-20 [facility] - Hematology and Cell countsOrdered By: Ayla [facility] on 04-25-2022 Erythrocyte distribution width (RBC) [Entitic vol] 44.7 fL 35.1-43.9 [facility] Erythrocyte distribution width (RBC) [Ratio] 12.6 % 11.6-14.6 [facility] Immature granulocytes/100 WBC (Bld) 0.100 % 0.0-0.9 [facility] Comment on above: IG% - Immature Granu locytes (promyelocytes, myelocytes and metamyelocytes) > 1% indicates that a LEFT SHIFT is Present. MCH (RBC) [Entitic mass] 31.2 pg 27.0-32.0 [facility] Nucleated RBC/100 WBC (Bld) [Ratio] 0 % 0-5 [facility] MCHC Auto (RBC) [Mass/Vol]Or dered By: Ayla Yue on 04-25-2022 MCHC (RBC) [Mass/Vol] 32.2 g/dL 32-36 [facility] No Panel InformationOrdered By: Ayla Turner on 04-25-2022 Estimated GFR (MDRD) Amer 85 mL/min >60 [facility] Comment on above: GFR Calc Estimated GFR (MDRD) Non-Af Amer 71 mL/min >60 [facility] Comment on above: Non- GFR Calc Prostate Specific Antigen Screen 1.30 ng/mL 0.00-4.00 [facility] Comment on above: This test was perfor med using the TPSA assay method for the[employer] chemistry system. Values obtained with differentassay methods cannot be used interchangably.When changing PSA assays in the course of monitoring apatient, additional sequential testing should be carriedout to confirm baseline values. Platelets bldOrdered By: Narayan tlkatelynn Statprashant on 04-25-2022 Platelets (Bld) [#/Vol] 392 10*3/uL 150-450 [facility] Serum or plasma albumin makenzie urement (mass/volume)Ordered By: Ayla Statprashant on 04-25-2022 Albumin [Mass/Vol] 4.0 g/dL 3.2-5.0 [facility] Serum or plasma albumin/glob ulin mass ratioOrdered By: Ayla Statprashant on 04-25-2022 Albumin/Globulin [Mass ratio] 1.0 {ratio} 0.9-2.4 [facility] Serum or plasma calcium makenzie urement (mass/volume)Ordered By: Ayla Statyamileoullesly on 04-25-2022 Calcium [Mass/Vol] 9.5 mg/dL 8.5-10.1 [facility] Serum or plasma cholesterol in HDL measurement (mass/volume)Ordered By: Ayla Statyamileoulos on 04-25-2022 Cholesterol in HDL [Mass/Vol] 60 mg/dL >40 [facility] Comment on above: The drugs N-Acetylcy steine and Metamizole may falsely depress this assay. Reference Range HDL <40 mg/dL Low HDL Cholesterol HDL >or= 60 mg/dL High HDL Cholesterol Serum or plasma cholesterol in VLDL measurement (mass/volume)Ordered By: Ayla Statyamileoullesly on 04-25-2022 Cholesterol in VLDL [Mass/Vol] 18 mg/dL 5-40 [facility] Serum or plasma creatinine m easurement (mass/volume)Ordered By: Ayla Statyamileoullesly on 04-25-2022 Creatinine [Mass/Vol] 1.10 mg/dL 0.70-1.30 [facility] Comment on above: The validity of the calculated GFR & GFRAA in patients over 70 years has not been determined. Clinical correlation is essential. Serum or plasma low density lipoprotein (LDL) cholesterol measurement (mass/volume)Ordered By: Ayla Turner on 04-25-2022 Cholesterol in LDL [Mass/Vol] 43 mg/dL 0-130 [facility] Serum or plasma urea nitroge n measurement (mass/volume)Ordered By: Ayla Turner on 04-25-2022 Urea nitrogen [Mass/Vol] 21 mg/dL 7-18 [facility] Thin prep Papanicolaou smear with manual screeningOrdered By: Aylakatelynn Turner on 04-25-2022 Thin prep Papanicolaou smear with manual screening 56 U/L 15-37 [facility] Thin prep Papanicolaou smear with manual screening 6 5-15 [facility] Whole blood hemoglobin A1c/t otal hemoglobin ratio (mass fraction)Ordered By: Ayla Turner on 04-25-2022 HbA1c (Bld) [Mass fraction] 6.0 % 3.8-5.6 [facility] Comment on above: Normal < 5.7 % Predi abetic 5.7 - 6.4 % Diabetic >or= 6.5 % Please note range changes. [place] 01-14-2022 BRIANDA Telephone (ZULY) GUSTAVO PATTON ([id number]) 1950 M Date Time Provider Department 01/14/22 LAYNE MANLEY JR During your visit today, we recorded the following information about you: Benita Johansen LPN 01/14/2022 11:12 AM Signed Zhanna with [facility] called and requested order for PT for pt be faxed to them FAX: [phone]. Identified pt with name and date of [...] Status:Closed by BENITA JOHANSEN LPN on 01/14/22 [facility] CNOValberto 01-13-2022 CNOV Office Visit (AGMIL) GUSTAVO PATTON ([id number]) 1950 M Date Time Provider Department 01/13/22 10:30 AM CLARENCE COLIN During your visit today, we recorded the following information about you: Pulse Respiration Blood pressure Weight 92/minute 16/minute 118/64 63.8 kg Height 1.778 m Clarence Colin MD 01/13/2022 10:55 AM Signed Gustavo Patton is a 71 year old male presents for evaluation of DVT. He was actually referred to vascular [facility], which we discussed that I am not, but he would have to go to [place] or another [facility] for vascular medicine. When talking to him, [...] with more than 50% of the total [id number] time of the visit in counseling / coordination of care. Referring Provider: LAYNE MANLEY JR [[id number]] Allergies As of Date: 01/13/2022 (No Known Allergies) Date Reviewed: 01/13/2022 Reviewed by: Clarence Colin MD - Fully Assessed Reason for Visit: Venous Thrombus [Other] Cmt: Gustavo is here for DVT Rfd by Dr. Tidwell Visit Diagnosis:Deep vein thrombosis (DVT) of femoral vein, unspecified chronicity, unspecified laterality (HCC) [I82.419] Order(s):CONSULT TO VASCULAR MEDICINE [328076] Order #: [id number]: 1 Prescriptions as of 01/13/2022 - metoprolol [...] route on (more content not included)... Normal [facility] US LEG VEIN DVT KRUNAL VAS LABo n 12-29-2021 [facility] ECHO WITH AGITATED SALINE CO NTRASTon 12-27-2021 [facility] LVEF ECHO WITH AGITATED SALI NE CONTRASTon 12-27-2021 LV Ejection Fraction 64 % [facility] BRAIN WO IVCONon 12-25-19 [facility] Basophil percentageon 2021 Chloride [Moles/Vol] 100 mmol/L 98-107 [facility]: Cholesterol [Mass/Vol] 91 mg/dL <200 [facility] Work Phone: Comment on above: <200 mg/dL Desirable 200-240 mg/dL Borderline >240 mg/dL High Risk Glucose [Mass/Vol] 99 mg/dL 74-106 [facility] Work Phone: Potassium [Moles/Vol] 4.3 mmol/L 3.5-5.1 [facility] Work Phone: Sodium [Moles/Vol] 138 mmol/L 136-145 [facility] Work Phone: Triglyceride [Mass/Vol] 50 mg/dL <199 [facility] Work Phone: Comment on above: The drugs N-Acetylcy steine and Metamizole may falsely depress this assay.Serum Triglycerides Reference Interval Normal <150 mg/dL Borderline high 150 - 199 mg/dL High 200 - 499 mg/dL Very High > or = 500 mg/dL Laboratory - Chemistry and C hemistry - challengeon 11-05-2021 CO2 [Moles/Vol] 29.0 mmol/L 21.0-32.0 [facility] Work Phone: Urea nitrogen/Creatinine [Mass ratio] 27.2 mg/mg 10-20 [facility] Work Phone: No Panel Informationon 11-05 Estimated GFR (MDRD) Amer 105 mL/min >60 [facility] Work Phone: Comment on above: GFR Calc Estimated GFR (MDRD) Non-Af Amer 87 mL/min >60 [facility] Work Phone: Comment on above: Non- GFR Calc Urine Microalbumin/Creatinine Ratio 17.8 mg/g CRE <30 [facility] Work Phone: Serum or plasma calcium makenzie urement (mass/volume)on 11-05-2021 Calcium [Mass/Vol] 9.2 mg/dL 8.5-10.1 [facility] Work Phone: Serum or plasma cholesterol in HDL measurement (mass/volume)on 11-05-2021 Cholesterol in HDL [Mass/Vol] 53 mg/dL >40 [facility] Work Phone: Comment on above: The drugs N-Acetylcy steine and Metamizole may falsely depress this assay. Reference Range HDL <40 mg/dL Low HDL Cholesterol HDL >or= 60 mg/dL High HDL Cholesterol Serum or plasma cholesterol in VLDL measurement (mass/volume)on 11-05-2021 Cholesterol in VLDL [Mass/Vol] 10 mg/dL 5-40 [facility] Work Phone: Serum or plasma creatinine m easurement (mass/volume)on 11-05-2021 Creatinine [Mass/Vol] 0.92 mg/dL 0.70-1.30 [facility] Work Phone: Comment on above: The validity of the calculated GFR & GFRAA in patients over 70 years has not been determined. Clinical correlation is essential. Serum or plasma low density lipoprotein (LDL) cholesterol measurement (mass/volume)on 11-05-2021 Cholesterol in LDL [Mass/Vol] 28 mg/dL 0-130 [facility] Work Phone: Serum or plasma urea nitroge n measurement (mass/volume)on 11-05-2021 Urea nitrogen [Mass/Vol] 25 mg/dL 7-18 [facility] Work Phone: Thin prep Papanicolaou smear with manual screeningon 11-05-2021 Thin prep Papanicolaou smear with manual screening 9 5-15 [facility] Work Phone: Thin prep Papanicolaou smear with manual screening 22.9 mg/L NO RANGE EST. [facility] Work Phone: Urine creatinine measurement (mass/volume)on 11-05-2021 Creatinine (U) [Mass/Vol] 129.00 mg/dL NO RANGE EST. [facility] Work Phone: Whole blood hemoglobin A1c/t otal hemoglobin ratio (mass fraction)on 11-05-2021 HbA1c (Bld) [Mass fraction] 6.1 % 3.8-5.6 [facility] Work Phone: Comment on above: Normal < 5.7 % Predi abetic 5.7 - 6.4 % Diabetic >or= 6.5 % Please note range changes. Absolute lymphocyte counton 10-13-2021 Lymphocytes Auto (Unsp spec) [#/Vol] 2.13 10*3/uL 0.83-4.51 [facility] Work Phone: Basophil percentageon 2021 Basophil percentage 25-50 SEEN /hpf 0-5 [facility] Work Phone: Basophils/100 WBC (Bld) 1.0 % 0-1 [facility] Work Phone: [phone] Chloride [Moles/Vol] 103 mmol/L 98-107 [facility] Work Phone: Eosinophils/100 WBC (Bld) 2.3 % 0-5 [facility] Work Phone: [phone] Glucose [Mass/Vol] 132 mg/dL 74-106 [facility] Work Phone: Comment on above: Fasting Glucose resu lt greater than or equal to 126 mg/dL suggests DIABETES MELLITUS per A.D.A. criteria. Neutrophils (Bld) [#/Vol] 8.0 10*3/uL 2.0-7.7 [facility] Work Phone: Neutrophils/100 WBC (Bld) 70.5 % 47-70 [facility] Work Phone: Potassium [Moles/Vol] 3.7 mmol/L 3.5-5.1 [facility] Work [facility]: Sodium [Moles/Vol] 142 mmol/L 136-145 [facility] Work Phone: WBC (Bld) [#/Vol] 11.4 10*3/uL 4.4-11.0 [facility] Work Phone: Bilirubin Test strip Ql (U)o n 10-13-2021 Bilirubin Ql (U) Negative Negative [facility] Work Phone: Blood erythrocytes count (nu mber/volume)on 10-13-2021 RBC (Bld) [#/Vol] 4.73 10*6/uL 4.6-6.2 [facility] Work Phone: Blood hemoglobin measurement (mass/volume)on 10-13-2021 Hemoglobin (Bld) [Mass/Vol] 14.5 g/dL 13.0-16.5 [facility] Work Phone: Blood lymphocytes/100 leukoc yteson 10-13-2021 Lymphocytes/100 WBC (Bld) 18.8 % 19-41 [facility] Work Phone: Blood monocytes/100 leukocyt eson 10-13-2021 Monocytes/100 WBC (Bld) 7.1 % 0-10 [facility] [facility] Work Phone: Blood platelet mean volumeon 10-13-2021 Platelet mean volume (Bld) [Entitic vol] 11.4 fL 6.2-12.0 [facility] Work Phone: Determination of erythrocyte mean corpuscular volume (MCV)on 10-13-2021 MCV (RBC) [Entitic vol] 93.9 fL 80-94 [facility] Work Phone: Hematocrit Auto (Bld) [Volum e fraction]on 10-13-2021 Hematocrit (Bld) [Volume fraction] 44.4 % 40-54 [facility] Work Phone: INR in Blood by Coagulation assayon 10-13-2021 INR Coag (Bld) [Relative time] 1.0 {INR} [facility] Work Phone: Ketones Test strip Ql (U)on 10-13-2021 Ketones Ql (U) Negative Negative [facility] Work Phone: [phone] Laboratory - Chemistry and C hemistry - challengeon 10-13-2021 CO2 [Moles/Vol] 29.0 mmol/L 21.0-32.0 [facility] Work Phone: Urea nitrogen/Creatinine [Mass ratio] 23.8 mg/mg 10-20 [facility] Work Phone: Laboratory - Coagulationon 0 10-13-2021 PT Coag (PPP) [Time] 12.6 s 11.7-14.9 [facility] Work Phone: [phone] Laboratory - Hematology and Cell countson 10-13-2021 Erythrocyte distribution width (RBC) [Entitic vol] 44.1 fL 35.1-43.9 [facility] Work Phone: [phone] Erythrocyte distribution width (RBC) [Ratio] 12.8 % 11.6-14.6 [facility] Work Phone: [phone] Immature granulocytes/100 WBC (Bld) 0.300 % 0.0-0.9 [facility] Work Phone: Comment on above: IG% - Immature Granu locytes (promyelocytes, myelocytes and metamyelocytes) > 1% indicates that a LEFT SHIFT is Present. MCH (RBC) [Entitic mass] 30.7 pg 27.0-32.0 [facility] Work Phone: [phone] Nucleated RBC/100 WBC (Bld) [Ratio] 0 % 0-5 [facility] Work Phone: MCHC Auto (RBC) [Mass/Vol]on 10-13-2021 MCHC (RBC) [Mass/Vol] 32.7 g/dL 32-36 [facility] Work Phone: Mucus LM Ql (Urine sed)on Mucus Ql (Urine sed) 1+ /hpf os [facility] Work Phone: Nitrite Test strip Ql (U)on 10-13-2021 Nitrite Ql (U) Negative Negative [facility] Work Phone: No Panel Informationon 10-13 Troponin I High Sensitivity 17 pg/mL 3.0-78.0 [facility] Work Phone: Comment on above: Please Note: New Debbie t Units and Gender Specific Reference Ranges. For more information see Policy Stat Procedure [place] High Sensitivity Troponin (TNIH) and attachments. D-Dimer Quantitative (PE/DVT) 0.44 FEU/ug/m 0.27-0.49 [facility] Work Phone: Comment on above: NORMAL D-Dimer level (<0.50) indicates no DVT or PE. Estimated Creatinine Clearance Calc 63.94 ml/min [facility] Work Phone: Estimated GFR (MDRD) Amer 90 mL/min >60 [facility] Work Phone: Comment on above: GFR Calc Estimated GFR (MDRD) Non-Af Amer 75 mL/min >60 [facility] Work Phone: Comment on above: Non- GFR Calc Thyroid Stimulating Hormone (TSH) 1.52 uIU/mL 0.358-3.74 [facility] Work Phone: Platelets bldon 10-13-2021 Platelets (Bld) [#/Vol] 396 10*3/uL 150-450 [facility] Work Phone: Protein Test strip Ql (U)on 10-13-2021 Protein Ql (U) 15 mg/dl Negative [facility] Work Phone: Serum or plasma calcium makenzie urement (mass/volume)on 10-13-2021 Calcium [Mass/Vol] 10.1 mg/dL 8.5-10.1 [facility] Work Phone: Serum or plasma creatinine m easurement (mass/volume)on 10-13-2021 Creatinine [Mass/Vol] 1.05 mg/dL 0.70-1.30 [facility] Work Phone: Comment on above: The validity of the calculated GFR & GFRAA in patients over 70 years has not been determined. Clinical correlation is essential. Serum or plasma urea nitroge n measurement (mass/volume)on 10-13-2021 Urea nitrogen [Mass/Vol] 25 mg/dL 7-18 [facility] Work Phone: Squamous epithelial cells de tection in urine sediment by light microscopyon 10-13-2021 Epithelial cells.squamous LM Ql (Urine sed) 0-5 SEEN /hpf 0-5 [facility] Work Phone: Thin prep Papanicolaou smear with manual screeningon 10-13-2021 Thin prep Papanicolaou smear with manual screening 10 5-15 [facility] Work Phone: Urine blood detectionon RBC Ql (U) 25 /ul Negative [facility] Work Phone: RBC Ql (U) 0-5 SEEN /hpf 0-5 [facility] Work Phone: Urine clarityon 10-13-2021 Clarity (U) Clear Clear [facility] Work Phone: Urine color determinationon 10-13-2021 Color (U) Yellow Yellow [facility] Work Phone: Urine glucose detectionon Glucose Ql (U) Normal mg/dl Normal [facility] Work Phone: Urine leukocyte esterase det ection by dipstickon 10-13-2021 Leukocyte esterase Test strip Ql (U) 500 /ul Negative [facility] Work Phone: Urine pHon 10-13-2021 pH (U) 6.0 [pH] 5.0 - 8.0 [facility] Work Phone: Urine sediment bacteria coun t by microscopy (number/high power field)on 10-13-2021 Bacteria LM.HPF (Urine sed) [#/Area] 1 /[HPF] None Seen [facility] Work Phone: Urine specific gravity measu rementon 10-13-2021 Specific gravity (U) [Rel density] 1.015 1.002-1.030 [facility] Work Phone: Urobilinogen Auto test strip Ql (U)on 10-13-2021 Urobilinogen Ql (U) Normal mg/dl Normal [facility] Work Phone: Absolute lymphocyte counton 08-04-2021 Lymphocytes Auto (Unsp spec) [#/Vol] 2.35 10*3/uL 0.83-4.51 [facility] Work Phone: Basophil percentageon 2021 Basophil percentage 5-10 SEEN /hpf 0-5 [facility] Work Phone: Basophils/100 WBC (Bld) 0.9 % 0-1 [facility] Work Phone: Bilirubin [Mass/Vol] 0.40 mg/dL 0.20-1.00 [facility] Work Phone: Comment on above: For patients on eltr ombopag therapy, use of Dimension [place] TBIL is not recommended. Chloride [Moles/Vol] 105 mmol/L 98-107 [facility] Work Phone: Eosinophils/100 WBC (Bld) 3.6 % 0-5 [facility] Work Phone: Glucose [Mass/Vol] 164 mg/dL 74-106 [facility] Work Phone: Comment on above: Fasting Glucose resu lt greater than or equal to 126 mg/dL suggests DIABETES MELLITUS per A.D.A. criteria. Neutrophils (Bld) [#/Vol] 5.5 10*3/uL 2.0-7.7 [facility] Work Phone: Neutrophils/100 WBC (Bld) 60.7 % 47-70 [facility] Work Phone: Potassium [Moles/Vol] 4.1 mmol/L 3.5-5.1 [facility] Work Phone: Protein [Mass/Vol] 7.2 g/dL 6.4-8.2 [facility] Work Phone: Sodium [Moles/Vol] 142 mmol/L 136-145 [facility] Work Phone: WBC (Bld) [#/Vol] 9.0 10*3/uL 4.4-11.0 [facility] Work Phone: [phone] Bilirubin Test strip Ql (U)o n 08-04-2021 Bilirubin Ql (U) Negative Negative [facility] Work Phone: [phone] Blood erythrocytes count (nu mber/volume)on 08-04-2021 RBC (Bld) [#/Vol] 4.24 10*6/uL 4.6-6.2 [facility] [facility] Work Phone: [phone] Blood hemoglobin measurement (mass/volume)on 08-04-2021 Hemoglobin (Bld) [Mass/Vol] 13.2 g/dL 13.0-16.5 [facility] Work Phone: Blood lymphocytes/100 leukoc yteson 08-04-2021 Lymphocytes/100 WBC (Bld) 26.1 % 19-41 [facility] Work Phone: Blood monocytes/100 leukocyt eson 08-04-2021 Monocytes/100 WBC (Bld) 8.4 % 0-10 [facility] Work Phone: Blood platelet mean volumeon 08-04-2021 Platelet mean volume (Bld) [Entitic vol] 11.1 fL 6.2-12.0 [facility] Work Phone: [phone] Determination of erythrocyte mean corpuscular volume (MCV)on 08-04-2021 MCV (RBC) [Entitic vol] 94.1 fL 80-94 [facility] Work Phone: Hematocrit Auto (Bld) [Volum e fraction]on 08-04-2021 Hematocrit (Bld) [Volume fraction] 39.9 % 40-54 [facility] Work Phone: Ketones Test strip Ql (U)on 08-04-2021 Ketones Ql (U) Negative Negative [facility] Work Phone: Laboratory - Chemistry and C hemistry - challengeon 08-04-2021 ALP [Catalytic activity/Vol] 67 U/L 45-117 [facility] Work Phone: [phone] ALT [Catalytic activity/Vol] 29 U/L 16-61 [facility] Work Phone: [phone] CO2 [Moles/Vol] 28.0 mmol/L 21.0-32.0 [facility] Work Phone: [phone] Globulin (S) [Mass/Vol] 3.6 g/dL 2.2-4.2 [facility] Work Phone: [phone] Urea nitrogen/Creatinine [Mass ratio] 17.5 mg/mg 10-20 [facility] Work Phone: [phone] Laboratory - Drug toxicology on 08-04-2021 Amphetamines Ql (U) Negative <1000 ng/mL [facility] Work Phone: Benzodiazepines Ql (U) Negative < 200 ng/mL [facility] Work Phone: [phone] Cannabinoids Screen Ql (U) Negative < 50 ng/m L [facility] Work Phone: Cocaine Ql (U) Negative < 300 ng/mL [facility] Work Phone: [phone] Opiates Ql (U) Negative < 300 ng/mL [facility] Work Phone: [phone] Laboratory - Hematology and Cell countson 08-04-2021 Erythrocyte distribution width (RBC) [Entitic vol] 42.9 fL 35.1-43.9 [facility] Work Phone: [phone] Erythrocyte distribution width (RBC) [Ratio] 12.6 % 11.6-14.6 [facility] Work Phone: Immature granulocytes/100 WBC (Bld) 0.300 % 0.0-0.9 [facility] Work Phone: Comment on above: IG% - Immature Granu locytes (promyelocytes, myelocytes and metamyelocytes) > 1% indicates that a LEFT SHIFT is Present. MCH (RBC) [Entitic mass] 31.1 pg 27.0-32.0 [facility] Work Phone: Nucleated RBC/100 WBC (Bld) [Ratio] 0 % 0-5 [facility] Work Phone: MCHC Auto (RBC) [Mass/Vol]on 08-04-2021 MCHC (RBC) [Mass/Vol] 33.1 g/dL 32-36 [facility] Work Phone: Mucus LM Ql (Urine sed)on Mucus Ql (Urine sed) 1+ /hpf [facility] Work Phone: Nitrite Test strip Ql (U)on 08-04-2021 Nitrite Ql (U) Negative Negative [facility] Work Phone: No Panel Informationon 08-04 MDMA (Ecstasy) Screen Negative < 500 ng/mL [facility] Work Phone: Urine Barbiturates Screen Negative < 200 ng/m L [facility] Work Phone: Urine Drug Screen Comment [facility] Work Phone: Comment on above: CONFIRMATORY [...] Methadone Screen Negative < 300 ng/mL [facility] Work Phone: Estimated Creatinine Clearance Calc 64.04 ml/min [facility] Work Phone: Estimated GFR (MDRD) Amer 82 mL/min >60 [facility] Work Phone: Comment on above: GFR Calc Estimated GFR (MDRD) Non-Af Amer 68 mL/min >60 [facility] Work Phone: Comment on above: Non- GFR Calc Ethyl Alcohol Level < 3.0 mg/dL [facility] Work Phone: Comment on above: The serum:whole bloo d ethanol ratio is approximately 1.14and varies slightly with hematocrit. Medical Alcohol reference interval and critical value innon-tolerant individuals; 50 - 100 Impairment 100 Intoxication 100 - 250 Severe Poisoning 250 - 400 Deep/possible fatal coma Troponin I High Sensitivity 8 pg/mL 3.0-78.0 [facility] Work Phone: Comment on above: Please Note: New Debbie t Units and Gender Specific Reference Ranges. For more information see Policy Stat Procedure [place] High Sensitivity Troponin (TNIH) and attachments. Platelets bldon 08-04-2021 Platelets (Bld) [#/Vol] 352 10*3/uL 150-450 [facility] Work Phone: Protein Test strip Ql (U)on 08-04-2021 Protein Ql (U) 15 mg/dl Negative [facility] Work Phone: Serum or plasma albumin makenzie urement (mass/volume)on 08-04-2021 Albumin [Mass/Vol] 3.6 g/dL 3.2-5.0 [facility] Work Phone: [phone] Serum or plasma albumin/glob ulin mass ratioon 08-04-2021 Albumin/Globulin [Mass ratio] 1.0 {ratio} 0.9-2.4 [facility] Work Phone: [phone] Serum or plasma calcium makenzie urement (mass/volume)on 08-04-2021 Calcium [Mass/Vol] 9.2 mg/dL 8.5-10.1 [facility] Work Phone: [phone] Serum or plasma creatinine m easurement (mass/volume)on 08-04-2021 Creatinine [Mass/Vol] 1.14 mg/dL 0.70-1.30 [facility] Work Phone: Comment on above: The validity of the calculated GFR & GFRAA in patients over 70 years has not been determined. Clinical correlation is essential. Serum or plasma urea nitroge n measurement (mass/volume)on 08-04-2021 Urea nitrogen [Mass/Vol] 20 mg/dL 7-18 [facility] Work Phone: Squamous epithelial cells de tection in urine sediment by light microscopyon 08-04-2021 Epithelial cells.squamous LM Ql (Urine sed) 0-5 SEEN /hpf 0-5 [facility] Work Phone: Thin prep Papanicolaou smear with manual screeningon 08-04-2021 Thin prep Papanicolaou smear with manual screening 24 U/L 15-37 [facility] Work Phone: Thin prep Papanicolaou smear with manual screening 9 5-15 [facility] Work Phone: Urine blood detectionon 07-08 RBC Ql (U) Negative Negative [facility] Work Phone: RBC Ql (U) 0 SEEN /hpf 0-5 [facility] Work Phone: Urine clarityon 08-04-2021 Clarity (U) Clear Clear [facility] Work Phone: Urine color determinationon 08-04-2021 Color (U) Yellow Yellow [facility] Work Phone: Urine glucose detectionon Glucose Ql (U) Normal mg/dl Normal [facility] Work Phone: Urine leukocyte esterase det ection by dipstickon 08-04-2021 Leukocyte esterase Test strip Ql (U) 100 /ul Negative [facility] Work Phone: Urine pHon 08-04-2021 pH (U) 6.5 [pH] 5.0 - 8.0 [facility] Work Phone: Urine phencyclidine (PCP) de tectionon 08-04-2021 Phencyclidine Ql (U) Negative < 25 ng/mL [facility] Work Phone: Urine sediment bacteria coun t by microscopy (number/high power field)on 08-04-2021 Bacteria LM.HPF (Urine sed) [#/Area] RARE /hpf None Seen [facility] Work Phone: Urine specific gravity measu rementon 08-04-2021 Specific gravity (U) [Rel density] 1.015 1.002-1.030 [facility] Work Phone: Urobilinogen Auto test strip Ql (U)on 08-04-2021 Urobilinogen Ql (U) Normal mg/dl Normal [facility] Work Phone: NM CARDIAC PERF STRESS/PHARM on 06-08-2021 [facility] EMERGENCY DEPARTMENT REPORTo n 04-02-2021 [place]ER[place]Y [place] [address] HEALTH INFORMATION MANAGEMENT EMERGENCY DEPARTMENT REPORT Patient: GUSTAVO PATTONCHAYO Aiken D.O. [id number] M Status: DEP ER ED [...] for right-sided weakness. 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 Last [...] as well as neural ICU doc at [facility], Dr. Pittman. At this point, it was decided to arrange critical care air transportation for the patient to [facility] for possible thrombectomy. IV fluids were ordered on the patient. EKG shows sinus rhythm. No signs of STEMI. CBC was unremarkable. Chemistry panel did show glucose of 259. At this point, the patient was transferred to [facility] for further evaluation, management, and treatment of his symptoms. IMPRESSION: Stroke with left M1 and M2 large vessel occlusion. DISPOSITION: The patient transferred to [facility]. 40 minutes of critical care time. Report#: Dict ID [id number] / Int ID [id number] 04/04/21 1047 CHAYO ARAYA D.O. cc: CHAYO ARAYA D.O. << Signature on File>> Reported By: CHAYO ARAYA D.O. Signed By: CHAYO ARAYA D.O. Tests performed at: [address] [address] [facility] Anion gap [Moles/Vol] 18.5 mmol/L Normal 15-22 [facility] Comment on above: Performed By: #### L 100.0010, L301.0120 #### [facility] - LABORATORY [address] [place] [address] Calcium [Mass/Vol] 9.1 mg/dL Normal 8.8-10.2 [facility] Comment on above: Performed By: #### L 100.0010, L301.0120 #### [facility] [address] [place] [address] 06795 Chloride [Moles/Vol] 101 mmol/L Normal 98-107 [facility] Comment on above: Performed By: #### L 100.0010, L301.0120 #### [facility] [address] [place] [address] 47281 CO2 [Moles/Vol] 24 mmol/L Normal 22-29 [facility] Comment on above: Performed By: #### L 100.0010, L301.0120 #### [facility] [address] [place] [address] 44991 Creatinine [Mass/Vol] 1.14 mg/dL Normal 0.70-1.20 [facility] Comment on above: Performed By: #### L 100.0010, L301.0120 #### [facility] [address] [place] [address] 74758 eGFR if AFR KATEY > 60 ml/min/1.73m2 Normal [facility] Comment on above: Result Comment: eGFR [...] #### L 100.0010, L301.0120 #### - LABORATORY [address] [place] [address] 20497 eGFR nonAFR Katey > 60 ml/Min/1.73m2 Normal U [facility] Comment on above: Performed By: #### L 100.0010, L301.0120 #### [facility] [address] [place] [address] 95188 Glucose [Mass/Vol] 259 mg/dL High 82-115 [facility] Comment on above: Performed By: #### L 100.0010, L301.0120 #### [facility] [address] [place] [address] 50006 Potassium [Moles/Vol] 4.5 mmol/L Normal 3.5-5.0 [facility] Comment on above: Performed By: #### L 100.0010, L301.0120 #### [facility] [address] [place] [address] 93314 Sodium [Moles/Vol] 139 mmol/L Normal 135-145 [facility] Comment on above: Performed By: #### L 100.0010, L301.0120 #### [facility] [address] [place] [address] 57188 Urea nitrogen [Mass/Vol] 18 mg/dL Normal 8-23 [facility] Comment on above: Performed By: #### L 100.0010, L301.0120 #### [facility] - LABORATORY [address] [place] [address] 63324 CBCon 04-01-2021 BASO# 0.10 x10(3) Normal 0.00-0.10 [facility] Comment on above: Performed By: #### L 200.0010 #### [facility] - LABORATORY [address] [place] [address] 45008 Basophils/100 WBC (Bld) 0.9 % Normal 0.0-1.0 [facility] Comment on above: Performed By: #### L 200.0010 #### [facility] - LAB[facility]ATORY [address] [place] [address] 27399 EOS# 0.20 x10(3) Normal 0.00-0.54 [facility] Comment on above: Performed By: #### L 200.0010 #### [facility] - [facility]ATORY [address] [place] [address] 86200 Eosinophils/100 WBC (Bld) 2.4 % Normal 0.5-4.9 [facility] Comment on above: Performed By: #### L 200.0010 #### [facility] - LABORATORY [address] [place] [address] 82817 Erythrocyte distribution width (RBC) [Ratio] 13.4 % Normal 12.7-15.3 [facility] Comment on above: Performed By: #### L 200.0010 #### [facility] - [facility]ATORY [address] [place] [address] 79749 Hematocrit (Bld) [Volume fraction] 40.7 % Low 42.0-51.0 [facility] Comment on above: Performed By: #### L 200.0010 #### [facility] - [facility]ATORY [address] [place] [address] 71712 Hemoglobin (Bld) [Mass/Vol] 13.4 g/dL Low 14.0-17.2 [facility] Comment on above: Performed By: #### L 200.0010 #### [facility] - [facility]ATORY [address] [place] [address] 80958 LYMPH# 2.10 x10(3) Normal 1.00-3.50 [facility] Comment on above: Performed By: #### L 200.0010 #### [facility] - [facility]ATORY [address] [place] [address] 42815 Lymphocytes/100 WBC (Bld) 21.8 % Normal 16.0-48.0 [facility] Comment on above: Performed By: #### L 200.0010 #### [facility] - LABORATORY [address] [place] [address] 55640 MCH (RBC) [Entitic mass] 30.0 pg Normal 28.8-32.2 [facility] Comment on above: Performed By: #### L 200.0010 #### [facility] - LAB[facility]ATORY [address] [place] [address] 69007 MCHC (RBC) [Mass/Vol] 33.1 g/dL Normal 33.0-36.0 [facility] Comment on above: Performed By: #### L 200.0010 #### ML [facility] [address] [place] [address] 22151 MCV (RBC) [Entitic vol] 90.6 fL Normal 80.0-94.0 [facility] Comment on above: Performed By: #### L 200.0010 #### ML [facility] [address] [place] [address] 72688 MONO# 0.80 x10(3) Normal 0.30-0.80 [facility] Comment on above: Performed By: #### L 200.0010 #### [facility] - [facility]ATORY [address] [place] [address] 24983 Monocytes/100 WBC (Bld) 8.7 % Normal 4.3-11.2 [facility] Comment on above: Performed By: #### L 200.0010 #### [facility] - [facility]ATORY [address] [place] [address] 40058 NEUT# 6.20 x10(3) Normal 1.40-6.50 [facility] Comment on above: Performed By: #### L 200.0010 #### ML [facility] [address] [place] [address] 48290 Neutrophils/100 WBC (Bld) 66.2 % Normal 45.0-73.0 [facility] Comment on above: Performed By: #### L 200.0010 #### [facility] [address] [place] [address] 81137 Platelet mean volume (Bld) [Entitic vol] 9.1 fL Normal 7.4-9.2 [facility] Comment on above: Performed By: #### L 200.0010 #### [facility] - [facility]ORY [address] [place] [address] 90068 PLT 283 X10(3) Normal 150-450 [facility] Comment on above: Performed By: #### L 200.0010 #### [facility] - [facility]ORY [address] [place] [address] 21013 RBC 4.48 x10(6) Low 4.80-5.50 [facility] Comment on above: Performed By: #### L 200.0010 #### [facility] - [facility]ATORY [address] [place] [address] 65037 WBC 9.4 x10(3) Normal 4.5-10.0 [facility] Comment on above: Performed By: #### L 200.0010 #### [facility] - LAB[facility]ATORY [address] [place] [address]238 CHEST-ONE VIEW ONLY - CXR1on 04-01-2021 CHEST-ONE VIEW ONLY - CXR1 [address] [address] Name: GUSTAVO PATTON Phys: CHAYO ARAYA D.O. : 54 Age: 70 Sex: M Acct: [id number] Loc: ED Exam Date: 04/01/21 Status: REG ER Radiology No.: Unit Number: [id number] Exam # Type/Exam [id number] RAD / CHEST-ONE VIEW ONLY - CXR1 [...] JOSE TIDWELL M.D. Tests performed at: [address] [address] Normal [facility] CT ANGIO HEAD W/WO CONTRASTo n 04-01-2021 CT ANGIO HEAD W/WO CONTRAST [address] [address] Name: GUSTAVO PATTON Mirlande Phys: CHAYO ARAYA D.O. : [birth year] Age: 70 Sex: M Acct: [id number] Loc: ED Exam Date: 04/01/21 Status: REG ER Radiology No.: Unit Number: [id number] Exam # Type/Exam [id number] CT / CT ANGIO HEAD W/WO CONTRAST [...] JOSE TIDWELL M.D. Tests performed at: [address] [address] Normal [facility] CT ANGIO NECK W/WO CONTRASTo n 04-01-2021 CT ANGIO NECK W/WO CONTRAST [address] [address] Name: GUSTAVO PATTON Phys: CHAYO ARAYA D.O. : [birth year] Age: 70 Sex: M Acct: [id number] Loc: ED Exam Date: 04/01/21 Status: REG ER Radiology No.: Unit Number: [id number] Exam # Type/Exam [id number] CT / CT ANGIO NECK W/WO CONTRAST [...] JOSE TIDWELL M.D. Tests performed at: [address] [address] Normal [facility] CT BRAIN WITHOUT CONTRAST- C TBon 04-01-2021 CT BRAIN WITHOUT CONTRAST- CTB [address] [address] Name: GUSTAVO PATTON Phys: CHAYO ARAYA D.O. : 54 Age: 70 Sex: M Acct: [id number] Loc: ED Exam Date: 04/01/21 Status: REG ER Radiology No.: Unit Number: [id number] Exam # Type/Exam [id number] CT / CT BRAIN WITHOUT CONTRAST- CTB [...] 04/01/2021 10:36:29 AM EST Workstation ID : [id number] < > Reported By: STEPHANI WU M.D. Signed In Fluency By: STEPHANI WU M.D. << Signature on File>> Reported By: STEPHANI WU M.D. Signed By: STEPHANI WU M.D. Tests performed at: [place] [address] Normal [facility] ELECTROCARDIOGRAMon 04-01-19 22 [place] [id number] HEALTH INFORMATION MANAGEMENT ELECTROCARDIOGRAM REPORT Patient: GUSTAVO PATTON Ordering: CHAYO ARAYA D.O. [id number] M Exam Date: 04/01/21 Report #: [id number] Status: REG ER ED Test Reason : [...] no stemi Confirmed by CHAYO ARAYA DO ([id number]) on 04/01/2021 12:17:14 PM Referred By: CHAYO ARAYA Confirmed By:CHAYO ARAYA DO Signed in MUSE 04/01/21 1218 CHAYO ARAYA D.O. cc: << Signature on File>> Reported By: CHAYO ARAYA D.O. Signed By: CHAYO ARAYA D.O. Tests performed at: [address] [address] Normal [facility] GLUCOSE FSon 04-01-2021 Glucose [Mass/Vol] 256 mg/dL High 70-110 [facility] Comment on above: Performed By: #### L 100.0070 #### [facility] [address] [place] [address] PTon 04-01-2021 INR Coag (PPP) [Relative time] 1.0 {INR} Normal 0.8-1.1 [facility] Comment on above: Result Comment: CO [...] systemic embolism) 2.0-3.0 AMI (to prevent recurrent CT) 2.5-3.5 Valvular heart disease 2.0-3.0 Atrial fibrillation 2.0-3.0 Mechanical prosthetic valves (high risk) 2.5-3.5 Bileaflet mechanical valve in aortic position 2.0-3.0 Presence of Lupus Anticoagulant or Antiphospholipid Antibodies 2.5-3.5 PANIC VALUE: GREATER THAN OR EQUAL TO 4.5 Performed By: #### L 200.1602, L200.1642 #### [facility] [address] [place] [address] [id number] PT Coag (PPP) [Time] 11.0 s Normal 9.4-12.5 Pending sale to [facility] Comment on above: Performed By: #### L 200.1602, L200.1642 #### [facility] - LABORATORY [address] [place] [address] [id number] PTTon 04-01-2021 aPTT Coag (Bld) [Time] 29.0 s Normal 25.1-36.5 [facility] Comment on above: Result Comment: Hepa rin Protocol Therapeutic Range = 54.0-90.0 secs Performed By: #### L 200.1602, [id number] #### [facility] - [facility]AT[facility] [address] [place] [address] [id number] RAPID COVIDon 04-01-2021 SARS-CoV-2 (COVID-19) RNA ADELA+probe Ql (Unsp spec) Negative Normal NEGATIVE [facility] Comment on above: Result Comment: THIS TEST HAS BEEN AUTHORIZED BY FDA UNDER AN EMERGENCY USE AUTHORIZATION (EUA). NEGATIVE: NEGATIVE FOR COVID19 (SARS-CoV-2) BY PCR POSITIVE: POSITIVE FOR COVID19 (SARS-CoV-2) BY PCR PRESUMPTIVE POSITIVE: POSITIVE BY SINGLE [place] SARS-CoV TARGET. SARS-CoV-1 CANNOT BE EXCLUDED, BUT IS NOT CURRENTLY CIRCULATING IN [place]. Performed By: #### L 200.0010 #### [facility] - [facility]ATORY [address] [place] [address] [id number] TROPONIN Ton 04-01-2021 TROPONIN T <0.010 Normal 0-0.010 [facility] Comment on above: Performed By: #### L 200.0010 #### [facility] - [facility]AT[facility] [address] [place] [address] [id number] TYPE AND SCREENon 04-01-2021 AB SCRN Negative Normal [facility] Comment on above: Order Comment: [id number] ,PT SHIPPED OUT,ASHLEY Performed By: #### B 100.0700 #### [facility] - [facility] [address] [place] [address] 16066 BLD TYPE Positive Normal [facility] Comment on above: Order Comment: [id number] ,PT SHIPPED OUT,ASHLEY Performed By: #### B 100.0700 #### [facility] [address] [place] [address] COVID-19 virus antigen assay SARS-CoV-2 (COVID-19) Ag IA.rapid Ql (Resp) [facility] Work Phone: Culture, urine Bacteria identified Cx Nom (U) Culture exhibits no growth. [facility] Work Phone: Vital Signs Date Time Vital Sign Value Performing Clinician Facility 11-22-2024 12:36-0400 Body height 177.8 cm Tracie Abreu MD Work Phone: [facility] 10-29-2024 16:00-0400 Body temperature 99.4 [degF] Tracie Arbeu MD Work Phone: [facility] 10-29-2024 16:00-0400 Diastolic blood pressure 76 mm[Hg] Tracie Abreu MD Work Phone: [facility] 10-29-2024 16:00-0400 Heart rate 100 /min Tracie Abreu MD Work Phone: [facility] 10-29-2024 16:00-0400 Respiratory rate 23 /min Tracie Abreu MD Work Phone: [facility] 10-29-2024 16:00-0400 SaO2% (BldA) [Mass fraction] 91 % Tracie Abreu MD Work Phone: [facility] 10-29-2024 16:00-0400 Systolic blood pressure 148 mm[Hg] Tracie Abreu MD Work Phone: [facility] 10-29-2024 15:10-0400 Body mass index (BMI) [Ratio] 27.8 kg/m2 Tracie Arbeu MD Work Phone: [facility] 10-29-2024 15:10-0400 Body weight 88 kg Tracie Abreu MD Work Phone: [facility] 10-29-2024 15:10-0400 Inhaled oxygen flow rate 3 L/min Tracie Abreu MD Work Phone: [facility] 10-29-2024 02:52-0400 Body height 177.8 cm Tracie Abreu MD Work Phone: [facility] 10-17-2024 21:00-0400 Body temperature 99.6 [degF] Tracie Abreu MD Work Phone: [facility] 10-17-2024 21:00-0400 Diastolic blood pressure 73 mm[Hg] Tracie Abreu MD Work Phone: [facility] 10-17-2024 21:00-0400 Heart rate 126 /min Tracie Abreu MD Work Phone: [facility] 10-17-2024 21:00-0400 Respiratory rate 29 /min Tracie Abreu MD Work Phone: [facility] 10-17-2024 21:00-0400 SaO2% (BldA) [Mass fraction] 94 % Tracie Abreu MD Work Phone: [facility] 10-17-2024 21:00-0400 Systolic blood pressure 119 mm[Hg] Tracie Abreu MD Work Phone: [facility] 10-17-2024 18:07-0400 Body height 177.8 cm Tracie Abreu MD Work Phone: [facility] 10-17-2024 18:07-0400 Body mass index (BMI) [Ratio] 25 kg/m2 Tracie Abreu MD Work Phone: [facility] 10-17-2024 18:07-0400 Body weight 79.2 kg Tracie Abreu MD Work Phone: [facility] 08-06-2024 14:27-0400 Body mass index (BMI) [Ratio] 26.83 kg/m2 Edith Hart DO Work Phone: [facility] 08-06-2024 14:27-0400 Body temperature 97.59 [degF] Edith Liangi DO Work Phone: [facility] 08-06-2024 14:27-0400 Body weight 83.01 kg Edith Liangi DO Work Phone: [facility] 08-06-2024 14:27-0400 Diastolic blood pressure 74 mm[Hg] Edith Liangi DO Work Phone: [facility] 08-06-2024 14:27-0400 Heart rate 83 /min Edith Liangi DO Work Phone: [facility] 08-06-2024 14:27-0400 SaO2% (BldA) [Mass fraction] 96 % Edith Liangi DO Work Phone: [facility] 08-06-2024 14:27-0400 Systolic blood pressure 112 mm[Hg] Edith Liangi DO Work Phone: [facility] 07-12-2024 11:12-0400 Body mass index (BMI) [Ratio] 27.42 kg/m2 Layne Manley Jr., MD Work Phone: [facility] 07-12-2024 11:12-0400 Body weight 84.82 kg Layne Manley Jr., MD Work Phone: [facility] 07-12-2024 11:12-0400 Diastolic blood pressure 72 mm[Hg] Layne Manley Jr., MD Work Phone: [facility] 07-12-2024 11:12-0400 Heart rate 97 /min Layne Manley Jr., MD Work Phone: [facility] 07-12-2024 11:12-0400 Respiratory rate 16 /min Layne Manley Jr., MD Work Phone: [facility] 07-12-2024 11:12-0400 SaO2% (BldA) [Mass fraction] 96 % Layne Manley Jr., MD Work Phone: [facility] 07-12-2024 11:12-0400 Systolic blood pressure 113 mm[Hg] Layne Manley Jr., MD Work Phone: [facility] 02-29-2024 11:05-0500 Body height 177.8 cm Tracie Abreu MD Work Phone: [facility] 02-29-2024 11:05-0500 Body mass index (BMI) [Ratio] 26.2 kg/m2 Tracie Abreu MD Work Phone: [facility] 02-29-2024 11:05-0500 Body weight 83 kg Tracie Abreu MD Work Phone: [facility] 02-29-2024 11:05-0500 Diastolic blood pressure 77 mm[Hg] Tracie Abreu MD Work Phone: [facility] 02-29-2024 11:05-0500 Heart rate 86 /min Tracie Abreu MD Work Phone: [facility] 02-29-2024 11:05-0500 Respiratory rate 18 /min Tracie Abreu MD Work Phone: [facility] 02-29-2024 11:05-0500 SaO2% (BldA) [Mass fraction] 98 % Tracie Abreu MD Work Phone: [facility] 02-29-2024 11:05-0500 Systolic blood pressure 127 mm[Hg] Tracie Abreu MD Work Phone: [facility] 12-06-2023 12:30-0400 Diastolic blood pressure 73 mm[Hg] Fallon Steiner PA-C Work Phone: [facility] 12-06-2023 12:30-0400 Heart rate 95 /min Fallon Steiner PA-C Work Phone: [facility] 12-06-2023 12:30-0400 SaO2% (BldA) [Mass fraction] 96 % Fallon Steiner PA-C Work Phone: [facility] 12-06-2023 12:30-0400 Systolic blood pressure 122 mm[Hg] Fallon Steiner PA-C Work Phone: [facility] 10-20-2023 10:42-0400 Body mass index (BMI) [Ratio] 26.95 kg/m2 Layne Manley Jr., MD Work Phone: [facility] 10-20-2023 10:42-0400 Body weight 83.37 kg Layne Manley Jr., MD Work Phone: [facility] 10-20-2023 10:42-0400 Diastolic blood pressure 78 mm[Hg] Layne Manley Jr., MD Work Phone: [facility] 10-20-2023 10:42-0400 Heart rate 86 /min Layne Manley Jr., MD Work Phone: [facility] 10-20-2023 10:42-0400 SaO2% (BldA) [Mass fraction] 97 % Layne Manley Jr., MD Work Phone: [facility] 10-20-2023 10:42-0400 Systolic blood pressure 122 mm[Hg] Layne Manley Jr., MD Work Phone: [facility] 09-25-2023 15:35-0400 Body mass index (BMI) [Ratio] 26.9 kg/m2 Edith Masci DO Work Phone: [facility] 09-25-2023 15:35-0400 Body temperature 98.29 [degF] Edith Masci DO Work Phone: [facility] 09-25-2023 15:35-0400 Body weight 83.23 kg Edith Masci DO Work Phone: [facility] 09-25-2023 15:35-0400 Diastolic blood pressure 75 mm[Hg] Edith Masci DO Work Phone: [facility] 09-25-2023 15:35-0400 Heart rate 83 /min Edith Masci DO Work Phone: [facility] 09-25-2023 15:35-0400 SaO2% (BldA) [Mass fraction] 98 % Edith Masci DO Work Phone: [facility] 09-25-2023 15:35-0400 Systolic blood pressure 114 mm[Hg] Edith Liangi DO Work Phone: [facility] 08-07-2023 10:40-0400 Body height 175.9 cm Edith Azuli DO Work Phone: [facility] 08-07-2023 10:40-0400 Body mass index (BMI) [Ratio] 25.95 kg/m2 Edith Masci DO Work Phone: [facility] 08-07-2023 10:40-0400 Body temperature 97.59 [degF] Edith Liangi DO Work Phone: [facility] 08-07-2023 10:40-0400 Body weight 80.29 kg Edith Liangi DO Work Phone: [facility] 08-07-2023 10:40-0400 Diastolic blood pressure 76 mm[Hg] Edith Liangi DO Work Phone: [facility] 08-07-2023 10:40-0400 Heart rate 90 /min Edith Liangi DO Work Phone: [facility] 08-07-2023 10:40-0400 SaO2% (BldA) [Mass fraction] 98 % Edith Liangi DO Work Phone: [facility] 08-07-2023 10:40-0400 Systolic blood pressure 112 mm[Hg] Edith Liangi DO Work Phone: [facility] 07-17-2023 14:07-0400 Body mass index (BMI) [Ratio] 26.09 kg/m2 Layne Manley Jr., MD Work Phone: [facility] 07-17-2023 14:07-0400 Body weight 82.46 kg Layne Manley Jr., MD Work Phone: [facility] 07-17-2023 14:07-0400 Diastolic blood pressure 76 mm[Hg] Layne Manley Jr., MD Work Phone: [facility] 07-17-2023 14:07-0400 Heart rate 84 /min Layne Manley Jr., MD Work Phone: [facility] 07-17-2023 14:07-0400 Respiratory rate 16 /min Layne Manley Jr., MD Work Phone: [facility] 07-17-2023 14:07-0400 SaO2% (BldA) [Mass fraction] 96 % Layne Manley Jr., MD Work Phone: [facility] 07-17-2023 14:07-0400 Systolic blood pressure 120 mm[Hg] Layne Manley Jr., MD Work Phone: [facility] 04-18-2023 09:50-0400 Body weight 80.2 kg Fallon Queener PA-C Work Phone: [facility] 04-18-2023 09:50-0400 Diastolic blood pressure 78 mm[Hg] Fallon Queener PA-C Work Phone: [facility] 04-18-2023 09:50-0400 Heart rate 94 /min Fallon Queener PA-C Work Phone: [facility] 04-18-2023 09:50-0400 Respiratory rate 16 /min Fallon Queener PA-C Work Phone: [facility] 04-18-2023 09:50-0400 SaO2% (BldA) [Mass fraction] 96 % Fallon Queener PA-C Work Phone: [facility] 04-18-2023 09:50-0400 Systolic blood pressure 122 mm[Hg] Fallon Queener PA-C Work Phone: [facility] 12-05-2022 15:40-0400 Body mass index (BMI) [Ratio] 22.1 kg/m2 DO Madhavi Chaudhry Work Phone: [facility] 12-05-2022 15:38-0400 Body temperature 97.6 [degF] DO Madhavi Chaudhry Work Phone: [facility] 12-05-2022 15:38-0400 Diastolic blood pressure 73 mm[Hg] DO Madhavi Chaudhry Work Phone: [facility] 12-05-2022 15:38-0400 Heart rate 92 /min DO Madhavi Richa Work Phone: [facility] 12-05-2022 15:38-0400 Respiratory rate 18 /min DO Madhavi Richa Work Phone: [facility] 12-05-2022 15:38-0400 SaO2% (BldA) [Mass fraction] 97 % DO Madhavi Richa Work Phone: [facility] 12-05-2022 15:38-0400 Systolic blood pressure 125 mm[Hg] DO Madhavi Richa Work Phone: [facility] 12-05-2022 05:29-0400 Body weight 70.2 kg DO Madhavi Richa Work Phone: [facility] 12-01-2022 13:20-0400 Body height 177.8 cm DO Madhavi Richa Work Phone: [facility] 11-24-2022 13:05-0400 Body temperature 97.1 [degF] DO Madhavi Richa Work Phone: [facility] 11-24-2022 13:05-0400 Diastolic blood pressure 77 mm[Hg] DO Madhavi Richa Work Phone: [facility] 11-24-2022 13:05-0400 Heart rate 97 /min DO Madhavi Richa Work Phone: [facility] 11-24-2022 13:05-0400 Respiratory rate 16 /min DO Madhavi Richa Work Phone: [facility] 11-24-2022 13:05-0400 SaO2% (BldA) [Mass fraction] 96 % DO Madhavi Richa Work Phone: [facility] 11-24-2022 13:05-0400 Systolic blood pressure 118 mm[Hg] DO Madhavi Richa Work Phone: [facility] 11-24-2022 09:23-0400 Body height 177.8 cm DO Madhavi Chaudhry Work Phone: [facility] 11-24-2022 09:23-0400 Body weight 71 kg DO Madhavi Chaudhry Work Phone: [facility] 11-23-2022 23:13-0400 Body mass index (BMI) [Ratio] 22.4 kg/m2 DO Madhavi Chaudhry Work Phone: [facility] 11-22-2022 11:47-0400 Diastolic blood pressure 80 mm[Hg] [facility] 11-22-2022 11:47-0400 Heart rate 95 /min [facility] 11-22-2022 11:47-0400 Respiratory rate 16 /min [facility] 11-22-2022 11:47-0400 SaO2% (BldA) [Mass fraction] 98 % [facility] 11-22-2022 11:47-0400 Systolic blood pressure 100 mm[Hg] [facility] 11-22-2022 10:23-0400 Body mass index (BMI) [Ratio] 23.6 kg/m2 [facility] 11-22-2022 09:48-0400 Body height 177.8 cm [facility] 11-22-2022 09:48-0400 Body temperature 98.7 [degF] [facility] 11-22-2022 09:48-0400 Body weight 74.9 kg [facility] 01-13-2022 10:14-0500 Body height 177.8 cm Clarence Colin MD Work Phone: [facility] 01-13-2022 10:14-0500 Body weight 63.78 kg Clarence Colin MD Work Phone: [facility] 01-13-2022 10:14-0500 Diastolic blood pressure 64 mm[Hg] Clarence Colin MD Work Phone: [facility] 01-13-2022 10:14-0500 Heart rate 92 /min Clarence Colin MD Work Phone: [facility] 01-13-2022 10:14-0500 Respiratory rate 16 /min Clarence Colin MD Work Phone: [facility] 01-13-2022 10:14-0500 Systolic blood pressure 118 mm[Hg] Clarence Colin MD Work Phone: [facility] 12-17-2021 10:57-0500 Body temperature 97.81 [degF] Layne Manley Jr., MD Work Phone: [facility] 12-17-2021 10:57-0500 Body weight 68.04 kg Layne Manley Jr., MD Work Phone: [facility] 12-17-2021 10:57-0500 Diastolic blood pressure 68 mm[Hg] Layne Manley Jr., MD Work Phone: [facility] 12-17-2021 10:57-0500 Heart rate 110 /min Layne Manley Jr., MD Work Phone: [facility] 12-17-2021 10:57-0500 Respiratory rate 18 /min Layne Manley Jr., MD Work Phone: [facility] 12-17-2021 10:57-0500 SaO2% (BldA) [Mass fraction] 99 % Layne Manley Jr., MD Work Phone: [facility] 12-17-2021 10:57-0500 Systolic blood pressure 138 mm[Hg] Layne Manley Jr., MD Work Phone: [facility] 10-13-2021 15:10-0400 Diastolic blood pressure 82 mm[Hg] [facility] Work Phone: 10-13-2021 15:10-0400 Heart rate 85 /min [facility] Work Phone: 10-13-2021 15:10-0400 Respiratory rate 18 /min [facility] Work Phone: 10-13-2021 15:10-0400 SaO2% (BldA) [Mass fraction] 98 % [facility] Work Phone: 10-13-2021 15:10-0400 Systolic blood pressure 135 mm[Hg] [facility] Work Phone: 10-13-2021 10:58-0400 Body height 177.8 cm [facility] Work Phone: 10-13-2021 10:58-0400 Body mass index (BMI) [Ratio] 21.2 kg/m2 [facility] Work Phone: 10-13-2021 10:58-0400 Body temperature 97.2 [degF] [facility] Work Phone: 10-13-2021 10:58-0400 Body weight 67.13 kg [facility] Work Phone: 08-04-2021 20:18-0400 Diastolic blood pressure 78 mm[Hg] [facility] Work Phone: 08-04-2021 20:18-0400 Heart rate 109 /min [facility] Work Phone: 08-04-2021 20:18-0400 Respiratory rate 27 /min [facility] Work Phone: 08-04-2021 20:18-0400 SaO2% (BldA) [Mass fraction] 97 % [facility] Work Phone: 08-04-2021 20:18-0400 Systolic blood pressure 123 mm[Hg] [facility] Work Phone: 08-04-2021 15:05-0400 Body height 177.8 cm [facility] Work Phone: 08-04-2021 15:05-0400 Body mass index (BMI) [Ratio] 24.6 kg/m2 [facility] Work Phone: 08-04-2021 15:05-0400 Body temperature 98 [degF] [facility] Work Phone: 08-04-2021 15:05-0400 Body weight 77.9 kg [facility] Work Phone: 05-12-2021 15:00-0400 Body height 177.8 cm Willa Jay [employer] Work Phone: [facility] 05-12-2021 15:00-0400 Body weight 81.28 kg Willa Jay [employer] Work Phone: [facility] 05-12-2021 15:00-0400 Diastolic blood pressure 72 mm[Hg] Willa Jay [employer] Work Phone: [facility] 05-12-2021 15:00-0400 Heart rate 92 /min Willa Jay [employer] Work Phone: [facility] 05-12-2021 15:00-0400 SaO2% (BldA) [Mass fraction] 97 % Willa Jay [employer] Work Phone: [facility] 05-12-2021 15:00-0400 Systolic blood pressure 116 mm[Hg] Willa Jay [employer] Work Phone: [facility] Encounters Encounter Date Encounter Type Care Provider Facility Start: 12-13-2024 End: 12-13-2024 ambulatory Juan Palacios Facility:[facility] Start: 11-28-2024 End: 11-28-2024 ambulatory Bonnie Aguilar NP Facility:[facility] Start: 11-27-2024 ambulatory Conrad William cility:[facility] Start: 11-20-2024 ambulatory Chalon Joel Facility:[facility] Start: 11-20-2024 Conrad Curtis Start: 11-13-2024 ambulatory Chalon Joel Facility:[facility] Start: 11-13-2024 Conrad Curtis Start: 11-06-2024 ambulatory Chalalberto Joel Facility:[facility] Start: 11-06-2024 Conrad Curtis Start: 10-31-2024 End: 10-31-2024 ambulatory Tracie Abreu MD Work Phone: [facility] Start: 10-31-2024 End: 10-31-2024 Bonnie Aguilar NP-[facility] Work Phone: Start: 10-31-2024 Conrad Burnett MD [facility] Start: 10-30-2024 End: 10-31-2024 ambulatory Tracie Abreu MD Work Phone: [facility] Start: 10-30-2024 End: 10-30-2024 [facility] Start: 10-29-2024 Dr. Juan Palacios MD - [facility] Start: 10-28-2024 Dr. Javon Baldwin DO [facility] Work Phone: Start: 10-28-2024 Roxanna Alvarez [facility] Start: 10-27-2024 Dr. Rosmery Lake MD - [facility] Work Phone: Start: 10-27-2024 Dr. Eliot Hand MD [facility] Start: 10-26-2024 Dr. Rosmery Lake MD [facility] Work Phone: Start: [facility] Start: 10-25-2024 Dr. Rosmery Lake MD [facility] Work Phone: Start: 10-24-2024 Dr. Cece Dennis MD -[facility] Start: 10-24-2024 Dr. Rosmery Lake MD [facility] Work Phone: Start: 10-23-2024 Dr. Rosmery Lake MD [facility] Work Phone: Start: 10-22-2024 Dr. Rosmery Lake MD [facility] Work Phone: Start: 10-22-2024 Roxanna Alvarez [facility] Start: 10-21-2024 Dr. Juan Palacios MD - [facility] Start: 10-21-2024 Dr. Rosmery Lake MD - [facility] Work Phone: Start: 10-20-2024 [facility] Work Phone: Start: 10-19-2024 Dr. Nathalia Garcia [facility] Work Phone: Start: 10-18-2024 ambulatory Chalon Joel Facility:[facility] Start: 10-18-2024 Dr. James Sanchez MD [facility] Start: 10-18-2024 Dr. Nathalia Garcia [facility] Work Phone: Start: 10-17-2024 ambulatory Chal Joel Facility:[facility] Start: 10-17-2024 End: 10-29-2024 Evaluation and management of inpatient Dr. Kenrick Ng [facility] Work Phone: Start: 10-17-2024 End: 10-29-2024 Dr. Javon Baldwin [facility] Work Phone: Start: 09-16-2024 End: 09-16-2024 ambulatory Mona Roach [facility] Comment on above: Abnormality of gait (Primary Dx); Parkinsonism, unspecified Parkinsonism type (HCC) Start: 09-05-2024 End: 09-06-2024 Refill Edith Hart DO Work Phone: Hematology/Oncology Comment on above: Refill Request Start: 08-06-2024 End: 08-06-2024 Patient encounter procedure Edith Hart DO Work Phone: Hematology/Oncology Start: 08-06-2024 End: 08-06-2024 ambulatory Edith Hart DO Work Phone: Hematology/Oncology Comment on above: Elevated factor VIII level (Primary Dx) Start: 07-29-2024 End: 07-29-2024 ambulatory Mona Roach [facility] Comment on above: Parkinsonism, unspec [...] 07-12-2024 End: 07-12-2024 ambulatory LAYNE MANLEY JR Facility:[facility] Start: 05-11-2024 End: 05-14-2024 Refill Layne Manley MD Work Phone: Neurology Comment on above: Refill Request Start: 05-01-2024 End: 05-01-2024 ambulatory Tracie Abreu MD Work Phone: [facility] Work Phone: Start: 05-01-2024 End: 05-01-[address] Fabien Leal DPM -Cardiovascular Services Work Phone: Start: 05-01-2024 End: 05-01-2024 ambulatory [facility] Facility:[facility] Start: 03-12-2024 End: 03-13-2024 Refill Edith Hart DO Work Phone: Hematology/Oncology Comment on above: Refill Request Start: 02-29-2024 End: 02-29-2024 Patient encounter procedure Iain HERRMANN -[facility] Work Phone: Start: 02-29-2024 End: 02-29-2024 ambulatory [facility] Start: 01-26-2024 End: 01-26-2024 ambulatory FALLON COZADSANDY Facility:[facility] Start: 01-26-2024 End: 01-26-2024 Discharged Recurring FALLON STEINER PA -Physical Therapy Work Phone: Start: 01-12-2024 End: 01-12-[address] Tracie Abreu MD -Laboratory, [facility] Start: 01-11-2024 End: 01-12-2024 Refill [...] 10-20-2023 End: 10-20-2023 ambulatory LAYNE MANLEY JR Facility:[facility] Start: 10-03-2023 End: 10-03-2023 Telephone encounter Edith Hart DO Work Phone: Hematology/Oncology Comment on above: Medication Question Start: 10-01-2023 End: 10-01-2023 Telephone encounter Edith Hart DO Work Phone: Hematology/Oncology Comment on above: Opened In Error Start: 09-25-2023 End: 09-25-2023 ambulatory Edith Hart DO Work Phone: Hematology/Oncology [...] above: Results Start: 09-12-2023 Telephone encounter Edith Ramos james DO Work Phone: Hematology/Oncology Comment on above: Results Start: 09-05-2023 Telephone encounter Layne Manley MD Work Phone: [facility] Comment on above: Patient Question Start: 08-21-2023 End: 08-21-2023 Subsequent hospital visit by physician [employer] [employer] [facility] (I-Stat/1.5t) Work Phone: Radiology Comment on above: Cerebral infarction, unspecified mechanism (HCC) [I63.9] Start: 08-17-2023 Telephone encounter Layne Manley MD Work Phone: Neurology Comment on above: Patient Update Start: 08-07-2023 Telephone encounter Edith Amaya Rachel ramirez DO Work Phone: Hematology/Oncology Comment on [...] Start: 05-19-2023 End: 05-19-2023 ambulatory CATHLEEN GOEL Facility:[id number] Start: 05-19-2023 End: 05-19-2023 ambulatory Cathleen Goel OT/L [facility] [place] Comment on above: Cerebrovascular acci dent (CVA), unspecified mechanism (HCC) (Primary Dx); Language impairment; 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) Start: 05-11-2023 Telephone encounter Cathleen Goel OT/L [facility] [place] Comment on above: Results; Patient Upd ate (This therapist called patient's sister who is DPOA and lives in [place] regarding Gustavo's recent clinical assessment results of [...] 05-04-2023 End: 05-04-2023 ambulatory Cathleen Goel OT/L [facility] [place] Comment on above: Language impairment (Primary Dx); Cerebrovascular accident (CVA), unspecified mechanism (HCC) Start: 04-30-2023 Refill Blayne kirby MD Work Phone: [facility] Card[facility] [place] Comment on above: Refill Request Start: 04-20-2023 Telephone encounter Fallon Katharine myers PA-C Work Phone: Neurology Comment on above: Patient Question Start: 04-18-2023 End: 04-18-2023 Patient encounter procedure Fallon Steiner PA-C Work Phone: Neurology Comment on above: Cerebrovascular acci dent (CVA), unspecified mechanism (HCC) (Primary Dx); Left arm weakness; Cognitive developmental delay Start: 01-05-2023 End: 01-05-2023 ambulatory DO Madhavi Chaudhry Work Phone: [facility] Work Phone: Start: 01-05-2023 End: 01-05-2023 Patient encounter procedure DO Madhavi Chaudhry Work Phone: [facility] Work Phone: Start: 12-14-2022 End: 12-14-2022 ambulatory DO Madhavi Munozer Work Phone: [facility] Work Phone: Start: 12-14-2022 End: 12-14-2022 Patient encounter procedure DO Madhavi Chaudhry Work Phone: [facility] Start: 12-05-2022 Non-patient / Non-visit DO Lor Munozer Work Phone: [facility] Work Phone: Start: 12-01-2022 Non-patient / Non-visit DO Lor Munozer Work Phone: [facility] Work Phone: Start: 11-29-2022 Non-patient / Non-visit DO Lor Munozer Work Phone: [facility] Work Phone: Start: 11-28-2022 Non-patient / Non-visit DO Kri stin Richa Work Phone: [facility] Work Phone: Start: 11-24-2022 Non-patient / Non-visit DO Kri stin Richa Work Phone: [facility] Work Phone: Start: 11-24-2022 End: 12-05-2022 Evaluation and management of inpatient DO Madhavi Richa Work Phone: [facility] Work Phone: Start: 11-23-2022 End: 11-24-2022 Evaluation and management of inpatient DO Madhavi Richa Work Phone: [facility] Work Phone: Start: 11-23-2022 Non-patient / Non-visit DO Kri stin Richa Work Phone: [facility] Work Phone: Start: 11-22-2022 Non-patient / Non-visit DO Kri stin Richa Work Phone: [facility] Start: 11-22-2022 Evaluation and management of inpatient [facility] Work Phone: Start: 11-22-2022 observation encounter [facility] Work Phone: Start: 07-08-2022 Refill Blayne kirby MD Work Phone: [facility] Comment on above: Refill Request Start: 05-27-2022 Refill Willa rebolledo ANIMAL WARDEN.BONE CHAR PULLER Work Phone: [facility] Comment on above: Refill Request Start: 05-20-2022 Refill Willa rebolledo APRN.BONE CHAR PULLER Work Phone: [facility] [place] Comment on above: Refill Request Start: 05-20-2022 Telephone encounter Blayne Marin MD Work Phone: [facility] Cardiology Comment on above: Appointment Start: 05-02-2022 Non-patient / Non-visit DO Lor Hassannger Work Phone: [facility] Start: 05-02-2022 End: 05-02-2022 ambulatory DO Madhavi Hassannger Work Phone: [facility] Work Phone: Start: 05-02-2022 End: 05-02-2022 Patient encounter procedure DO Madhavi Hassannger Work Phone: [facility] Start: 04-25-2022 End: 04-25-2022 Patient encounter procedure DO Madhavi Hassannger Work Phone: [facility] Start: 03-31-2022 Telephone encounter Layne Manley MD Work Phone: Neurology Comment on above: Information Start: 03-17-2022 End: 03-17-2022 ambulatory DO Madhavi Chaudhry Work Phone: [facility] Work Phone: Start: 03-17-2022 End: 03-17-2022 Discharged Recurring DO Madhavi Hassannger Work Phone: [facility] Start: 03-17-2022 Registered Recurring DO Sheree n Richa Work Phone: [facility] Start: 02-16-2022 End: 02-16-2022 ambulatory Cathleen Goel OT/L [facility] [place] Comment on above: 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) Start: 02-11-2022 End: 02-11-2022 ambulatory Cathleen Goel OT/L [facility] [place] Comment on above: 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) Start: 01-14-2022 Telephone encounter Layne Manley MD Work Phone: Sleep Comment on above: Fax order to out asha e Start: 01-13-2022 End: 01-13-2022 ambulatory EDITH FRASER Facility:[facility] Start: 01-13-2022 End: 01-13-2022 Patient encounter procedure Clarence Colin MD Work Phone: [facility] Cardiac, Thoracic[facility] Specialties Comment on above: Deep vein thrombosis (DVT) of femoral vein, unspecified chronicity, unspecified laterality (HCC) Start: 01-05-2022 Telephone encounter Layne Manley MD Work Phone: Neurology Comment on above: Orders [facility] requesting records Start: 01-04-2022 Telephone encounter Layne Manley MD Work Phone: Neurology Comment on above: Results Start: 12-29-2021 End: 12-29-2021 Patient encounter procedure Kianna Lab [facility] Work Phone: Vasculary Surgery Comment on [...] 12-24-2021 Subsequent hospital visit by physician [facility] (I-Stat) Work Phone: Cat Scan Comment on above: 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 Start: 10-13-2021 End: 10-13-2021 Emergency department patient visit [facility] Start: 10-05-2021 [facility] Start: 08-04-2021 End: 08-04-2021 Emergency department patient visit [facility] Start: 08-04-2021 [facility] Start: 06-30-2021 Telephone encounter Adriana abreu MD Work Phone: [facility] Comment on above: modified Maxine scor e Start: 06-28-2021 Telephone encounter Willa mcelroy APRN.CNP Work Phone: [facility] Cardiology Comment on above: Results Start: 06-11-2021 Registered Recurring [facility] Start: 06-08-2021 End: 06-08-2021 Subsequent hospital visit by physician Holter/Event Monitor [facility]rend[facility] Comment on above: Shortness of breath [R06.02] Start: 06-02-2021 Telephone encounter Jackeline Dunne RN [facility] Comment on above: Orders ([place] [facility] - ord er contact/deferral) Start: 05-12-2021 End: 05-12-2021 Patient encounter procedure Willa Jay ANIMAL WARDEN.BONE CHAR PULLER Work Phone: [facility] Cardiology [place] Comment on above: Shortness of breath Start: [...] procedure Tracie Abreu MD Work Phone: Start: 10-29-2024 Platelet mean volume determination Tracie Abreu MD Work Phone: Start: 10-26-2024 Urine culture Tracie martinez MD Work Phone: Start: 10-26-2024 CT of chest, abdomen and pelvis without contrast Tracie Abreu MD Work Phone: Start: 10-26-2024 Myelocyte percent differential count Tracei Abreu MD Work Phone: Start: 10-25-2024 Blood [...] Abreu MD Work Phone: Start: 10-22-2024 Electrophoresis: [id number] Tracie Abreu MD Work Phone: Start: 10-22-2024 Electrophoresis: [id number] Tracie Abreu MD Work Phone: Start: 10-22-2024 [...] Work Phone: Start: 10-18-2024 Urine culture Tracie martinez MD Work Phone: Start: 10-18-2024 Venous oxygen [...] Myocardial spect mul tiple studies Willa Jay ANIMAL WARDEN.BONE CHAR PULLER Work Phone: Urine culture Viral antigen assay Plan of Treatment Date Care Activity Detail Author Start: 11-27-2027 RSV Vaccine (1 - 1-d ose 75+ series) RSV Vaccine (1 - 1-dose 75+ series) [facility] Start: 08-06-2025 End: 08-06-2025 ambulatory 08/06/2025 11:10 AM EDT Visit (SP) Office Hematology/Oncology [address] [place] [address] Edith Hart DO [address] [place] [address] 1YR OV* Hematology/Oncology Comment on above: 1YR OV* Start: 01-01-2025 ambulatory Facility:[facility] Start: 11-27-2024 ELINOR De La Torre alma delia Start: 11-12-2024 End: 11-12-2024 Patient encounter procedure 11/12/2024 12:30 PM EDT Office Visit Neurology [address] [place] [address] Fallon Steiner PA-C [address] [place] [address] 4 month follow up, [address] Manley Neurology Comment on above: 4 month follow up, [address] Manley Start: 10-29-2024 Patient discharge [facility] Start: 10-29-2024 Care of hemodialysis equipment [facility] Start: 10-29-2024 Hemodialysis care [facility] Start: 10-29-2024 [facility] Start: 10-25-2024 Care of hemodialysis equipment [facility] Start: 10-25-2024 Hemodialysis care [facility] Start: 10-25-2024 End: 10-25-2024 [facility] Start: 10-24-2024 [facility] Start: 10-24-2024 [facility] Start: 10-23-2024 Care of hemodialysis equipment [facility] Start: 10-23-2024 Hemodialysis care [facility] Start: 10-23-2024 [facility] Start: 10-22-2024 Care of hemodialysis equipment [facility] Start: 10-22-2024 Hemodialysis care [facility] Start: 10-22-2024 [facility] Start: 10-21-2024 Referral to general surgeon [facility] Start: 10-20-2024 Speech therapy assessment [facility] Start: 10-19-2024 Referral to drain tile machine operator [facility] Start: 10-19-2024 [facility] Start: 10-18-2024 Referral to service [facility] Start: 10-17-2024 Application of intermittent pneumatic compression device [facility] Start: 10-17-2024 Following clinical pathway protocol [facility] Start: 10-17-2024 Cardiac monitoring [facility] Start: 10-17-2024 Catheterization of vein [facility] Start: 10-17-2024 Consultation [facility] Start: 10-17-2024 Notification of physician [facility] Start: 10-17-2024 Referral for physica l therapy [facility] Start: 10-17-2024 Referral to occupati onal therapist [facility] Start: 10-17-2024 Referral to service [facility] Start: 10-17-2024 Vital signs measurements [facility] Start: 10-17-2024 End: 10-17-2024 [facility] Start: 10-17-2024 Admission procedure [facility] Start: 10-17-2024 Prostate specific an tigen measurement [facility] Start: 10-17-2024 Thyroid stimulating hormone measurement [facility] Start: 10-17-2024 Hospital admission, emergency, from emergency room, medical nature [facility] Start: 10-17-2024 End: 10-17-2024 [facility] Start: 10-17-2024 Bacteria identified in Blood by Culture Blood Culture [facility] Start: 10-07-[address] [facility] Start: 09-16-2024 End: 09-16-2024 ambulatory 09/16/2024 10:45 AM EDT OT/PT/Speech Visit [facility] [address] [place] [address] Mona Roach PT G20.C (ICD-10-CM) - Parkinsonism, unspecified Parkinsonism type (HCC) [facility] Comment on above: G20.C (ICD-10-CM) - Parkinsonism, unspecified Parkinsonism type (HCC) Start: 08-06-2024 End: 08-06-2024 Follow-up encounter 08/06/2024 4:00 PM EDT Visit (SP) Office Hematology/Oncology [address] [place] [id number] Edith Hart DO [address] [place] [address] follow up per Sindhu Hematology/Oncology Comment on above: follow up per Sindhu Start: 08-06-2024 End: 11-05-2024 C reactive protein [Mass/volume] in Serum or Plasma [facility] Comment on above: Expected: 08/06/2024 , Expires: 11/05/2024 Start: 08-06-2024 End: 11-05-2024 Coagulation factor VIII activity actual/normal in Platelet poor plasma by Coagulation assay [facility] Work Phone: Comment on above: Expected: 08/06/2024 , Expires: 11/05/2024 Start: 07-29-2024 End: 07-29-2024 ambulatory 07/29/2024 2:00 PM EDT OT/PT/Speech Visit [facility] [address] [place], [place] [id number] Mona Roach, PT Parkinsonism, unspecified Parkinsonism type (HCC) [G20.C] [facility] Comment on above: Parkinsonism, unspec ified Parkinsonism type (HCC) [G20.C] Start: 07-12-2024 End: 07-12-2024 Patient encounter procedure 07/12/2024 1:00 PM EDT Office Visit Neurology [address] [place] [id number] Layne Manley Jr., MD [address] [place], [place] [id number] PD, hx of DVT, aphasia, CVA. arm weakness- matheus 10/30 MQ increase sinemet 1.5 tablets TID, cont PT Neurology Comment on above: PD, hx of DVT, aphas ia, CVA. arm weakness- matheus 10/30 MQ increase sinemet 1.5 tablets TID, cont PT Start: 06-03-2024 End: 06-03-2024 Patient encounter procedure 06/03/2024 11:00 AM EDT Office Visit Neurology [address] [place] [address] Layne Manley Jr., MD [address] [place], [place] [address] PD, hx of DVT, aphasia, CVA. arm weakness- matheus 12/05 MQ increase sinemet 1.5 tablets TID, cont PT Neurology Comment on above: PD, hx of DVT, aphas ia, CVA. arm weakness- matheus 12/05 MQ increase sinemet 1.5 tablets TID, cont PT Start: 03-08-2024 End: 03-08-2024 Patient encounter procedure 03/08/2024 10:40 AM EST Office Visit Neurology [address] [place], [place] [address] Layne Manley Jr., MD [address] [place], [place] [phone] follow up Neurology Comment on above: follow up Start: 02-07-2024 Advance Directive Discussion Advance Directive Discussion [facility] Start: 12-06-2023 End: 12-06-2023 Patient encounter procedure 12/06/2023 12:30 PM EDT Office Visit Neurology [address] [place] [address] Fallon Steiner PA-C [address] [place], [place] [phone] follow up 10/20/23 [facility]he[facility] Neurology Comment on above: follow up 10/20/23 WJ N matheus Start: 10-20-2023 End: 10-20-2023 Patient encounter procedure 10/20/2023 10:40 AM EDT Office Visit Neurology [address] [place], [place] [id number] Layne Manley Jr., MD [address] [facility] [address] [place] [address] Follow up Hx stroke Neurology Comment on above: Follow up Hx stroke Start: 10-08-2023 Covid-19 Vaccine ( season) Covid-19 Vaccine ( season) [facility] Start: 10-08-2023 Covid-19 Vaccine ( season) Covid-19 Vaccine () [facility] Start: 10-08-2023 Influ[facility] Start: 09-25-2023 End: 09-25-2023 ambulatory 09/25/2023 3:50 PM EDT Visit (SP) Office Hematology/Oncology [address] [place] [id number] Edith Hart DO [address] [place] [id number] OV/LAB 09/12* Hematology/Oncology Comment on above: OV/LAB 09/12* Start: 09-12-2023 End: 12-12-2023 Coagulation factor VIII activity actual/normal in Platelet poor plasma by Coagulation assay FACTOR VIII:C ASSAY Lab Routine Elevated factor VIII level Expected: 09/12/2023, Expires: 12/12/2023 [facility] Work Phone: Comment on above: Expected: 09/12/2023 , Expires: 12/12/2023 Start: 08-21-2023 End: 08-21-2023 Patient encounter procedure Radiology Comment on above: Cerebral infarction, unspecified mechanism (HCC) [I63.9] Start: 08-21-2023 End: 08-21-2023 ambulatory 08/21/2023 2:00 PM EDT Results [facility] [address] [place] [address] LAB* [facility] Comment on above: LAB* Start: 08-07-2023 End: 11-06-2023 HYPERCOAG DIAG PNL HYPERCOAG DIAG PNL Lab Routine Recurrent strokes (HCC) Chronic deep vein thrombosis (DVT) of femoral vein of right lower extremity (HCC) Presence of IVC filter Expected: 08/07/2023, Expires: 11/06/2023 [facility] Work Phone: Comment on above: Expected: 08/07/2023 , Expires: 11/06/2023 Start: 08-07-2023 End: 08-07-2023 Visit (SP) Office 08/07/2023 11:10 AM EDT Visit (SP) Office Hematology/Oncology [address] [place] [address] Edith Hart DO [address] [facility] [place] [address] new patient/ dx: Recurrent strokes (HCC) [I63.9] eval for possible hypercoag disorder with pt having had multiple strokes in past 2-3 years. Hematology/Oncology Comment on above: new patient/ dx: Rec urrent strokes (HCC) [I63.9] eval for possible hypercoag disorder with pt having had multiple strokes in past 2-3 years. Start: 02-06-2023 Advance Directive Discussion Advance Directive Discussion [facility] Start: 02-06-2023 Behavioral Health Screening Behavioral Health Screening [facility] Start: 02-06-2023 Depression Assessment Depression Ass essment [facility] Start: 12-05-2022 Patient discharge [facility] Start: 12-01-2022 Referral to service [facility] Start: 11-28-2022 [facility] Start: 11-28-2022 Chart related administrative procedure [facility] Start: 11-25-2022 Following clinical pathway protocol [facility] Start: 11-24-2022 Recommendation to continue with treatment [facility] Start: 11-24-2022 Referral to service [facility] Start: 11-24-2022 Urinary bladder training [facility] Start: 11-24-2022 Admission procedure [facility] Start: 11-24-2022 Patient referral to dietitian [facility] Start: 11-24-2022 Referral to occupati onal therapist [facility] Start: 11-24-2022 Vital signs measurements [facility] Start: 11-24-2022 [facility] Start: 11-24-2022 Patient discharge [facility] Start: 11-24-2022 Speech therapy assessment [facility] Start: 11-23-2022 Admission procedure [facility] Start: 11-23-[address] [facility] Start: 11-22-2022 Telepractice consultation [facility] Start: 11-22-2022 Speech therapy assessment [facility] Start: 11-22-2022 Application of intermittent pneumatic compression device [facility] Start: 11-22-2022 Ambulation without limitation [facility] Start: 11-22-2022 Assessment of risk o f venous thromboembolism [facility] Start: 11-22-2022 Cardiac monitoring [facility] Start: 11-22-2022 Catheterization of vein [facility] Start: 11-22-2022 Continuous pulse oximetry [facility] Start: 11-22-2022 Elevation of head of bed [facility] Start: 11-22-2022 Exercises [facility] Start: 11-22-[address] anned interventions [facility] Start: 11-22-2022 Insertion of cathete r into peripheral vein [facility] Start: 11-22-2022 Notification of physician [facility] Start: 11-22-2022 Oxygen therapy [facility] Start: 11-22-2022 Providing care accor ding to standard [facility] Start: 11-22-2022 Referral to occupati onal therapist [facility] Start: 11-22-2022 Referral to service [facility] Start: 11-22-2022 Tobacco use cessatio n education [facility] Start: 11-22-2022 [facility] Start: 11-22-2022 Vital signs measurements [facility] Start: 11-22-2022 Admission procedure [facility] Start: 11-22-2022 Following clinical pathway protocol [facility] Start: 11-22-2022 Hospital admission, emergency, from emergency room, medical nature [facility] Start: 11-22-2022 Oxygen therapy [facility] Start: 11-22-2022 End: 11-22-2022 [facility] Start: 10-07-2022 Covid-19 Vaccine () Covid-19 Vaccine () [facility] Start: 10-07-2022 [facility] Start: 04-02-2022 Hepatitis B surface antibody level LDL CHOLESTEROL [facility] Start: 02-06-2022 ADVANCE DIRECTIVE DISCUSSION ADVANCE DIRECTIVE DISCUSSION [facility] Start: 02-06-2022 DEPRESSION ASSESSMENT DEPRESSION ASS ESSMENT [facility] Start: 10-13-2021 End: 10-13-2021 [facility] Work Phone: Start: 10-07-[address] [facility] Start: 06-30-2021 Hemoglobin A1c measurement HbA1C [facility] Start: 06-30-2021 Hemoglobin A1c/Hemoglobin.total in Blood HBA1C [facility] Start: 06-11-2021 End: 06-11-2022 NM CARDIAC PERF STRESS/PHARM NM CARDIAC PERF STRESS/PHARM Radiology Routine Shortness of breath Expected: 06/11/2021, Expires: 06/11/2022 [facility] Work Phone: Comment on above: Expected: 06/11/2021 , Expires: 06/11/2022 Start: 05-26-2021 End: 05-12-2022 EXTENDED WEAR FIRE SPRINKLER FITTER PATCH EXTENDED WEAR FIRE SPRINKLER FITTER PATCH ECG Routine Shortness of breath Expected: 05/26/2021, Expires: 05/12/2022 [facility] Work Phone: Comment on above: Expected: 05/26/2021 , Expires: 05/12/2022 Start: 05-07-2021 Medicare Annual Well ness Visit Medicare Annual Wellness Visit [facility] Start: 02-06-2021 ADVANCE DIRECTIVE DISCUSSION ADVANCE DIRECTIVE DISCUSSION [facility] Start: 02-06-2021 DEPRESSION ASSESSMENT DEPRESSION ASS ESSMENT [facility] Start: 2017 PNEUMOVAX AGE 65 AND OVER WITH 5YR LOOKBACK (#1) PNEUMOVAX AGE 65 AND OVER WITH 5YR LOOKBACK (#1) [facility] Start: 2012 Hepatitis B Vaccine (1 of 3 - Risk 3-dose series) Hepatitis B Vaccine (1 of 3 - Risk 3-dose series) [facility] Start: 2012 RSV Vaccine (1 - 1-d ose 60+ series) RSV Vaccine (1 - 1-dose 60+ series) [facility] Start: 11-27-2007 PROSTATE CANCER SCRE ENING DISCUSSION PROSTATE CANCER SCREENING DISCUSSION [facility] Start: 2002 SHINGRIX VACCINE (1 of 2) FARMER GRIX VACCINE (1 of 2) [facility] Start: 1997 COLOGUARD (FIT-DNA) COLOGUARD (FIT-D NA) [facility] Start: 1997 Colonoscopy COLONOSCOPY [facility] Start: 1997 COLORECTAL CANCER SCREENING COLORECTAL CANCER SCREENING [facility] Start: [address] COLONOGRAPHY [facility] Start: 1997 FECAL OCCULT BLOOD FECAL OCCULT BLOO D [facility] Start: 1997 Screening for malign ant neoplasm of colon [facility] Start: 1997 SIGMOIDOSCOPY SIGMOIDOSCOPY [facility] Start: 11-27-1971 Pneumococcal Vaccine : 50+ (1 of 2 - PCV) Pneumococcal Vaccine: 50+ (1 of 2 - PCV) [facility] Start: 11-27-1971 Urine microalbumin profile [facility] Start: 1970 ANNUAL PCP TEAM COMPLIANCE CONSULTANT MARGUERITE DISEASE VISIT ANNUAL PCP TEAM CHRONIC DISEASE VISIT [facility] Start: 1970 Anxiety Screening Anxiety Screening [facility] Start: 1970 Depression Screening Depression Scre ening [facility] Start: 1970 HEPATITIS C SCREENING HEPATITIS C [facility] Start: 1970 Hepatitis C screening Hepatitis C [facility] Start: 1964 Adult depression screening assessment DEPRESSION SCREENING [facility] Start: 1962 3 comp foot exam completed DIABETIC FOOT EXAM [facility] Start: 1962 Diabetic foot examination Diabetic F oot Exam [facility] Start: 1962 Glaucoma screening Dilated Retinal E xam [facility] Start: 1962 Hepatitis B screening URINE ALBUMIN:CREATININE RATIO [facility] Start: 1962 Hepatitis C antibody , confirmatory test DILATED RETINAL EXAM [facility] Start: 1958 Pneumococcal Vaccine : 65+ (1 - PCV) Pneumococcal Vaccine: 65+ (1 - PCV) [facility] Start: 1958 Pneumococcal Vaccine : 65+ (1 of 2 - PCV) Pneumococcal Vaccine: 65+ (1 of 2 - PCV) [facility] Start: 1958 PNEUMOCOCCAL: 65+ (1 - PCV) PNEUMOCOCCAL: 65+ (1 - PCV) [facility] Start: 1957 COVID-19 VACCINE (#1) COVID-19 VACCI NE (#1) [facility] Start: 1957 COVID-19 VACCINE (1) [facility] Start: 05-27-1951 COVID-19 VACCINE (#1) COVID-19 VACCI NE (#1) [facility] Bacteria identified in Urine by Culture Urine Culture [facility] Work Phone: Bilirubin measuremen t, urine [facility] Coagulation factor V III activity actual/normal in Platelet poor plasma by Coagulation assay FACTOR VIII:C ASSAY Lab Routine Elevated factor VIII level 09/13/2023 11:10 AM EDT [facility] Creatine kinase [Enzymatic activity/volume] in Serum or Plasma [facility] End: 01-16-[address]23 CT BRAIN WO IVCON CT BRAIN WO IVCON Radiology Routine 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) 1 Occurrences starting 12/17/2021 until 01/16/2023 [facility] Work Phone: Comment on above: 1 Occurrences starti ng 12/17/2021 until 01/16/2023 End: 12-17-2022 ECHO WITH AGITATED SALINE CONTRAST ECHO WITH AGITATED SALINE CONTRAST Cardiology Routine 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) 1 Occurrences starting 12/17/2021 until 12/17/2022 [facility] Work Phone: Comment on above: 1 Occurrences starti ng 12/17/2021 until 12/17/2022 End: 06-08-2021 EXTENDED WEAR FIRE SPRINKLER FITTER PATCH EXTENDED WEAR FIRE SPRINKLER FITTER PATCH ECG Routine Shortness of breath 1 Occurrences starting 06/08/2021 until 06/08/2021 [facility] Work Phone: Comment on above: 1 Occurrences starti ng 06/08/2021 until 06/08/2021 Folate [Moles/volume ] in Serum or Plasma [facility] Hemoglobin [Presence ] in Urine [facility] Hemoglobin A1c/Hemoglobin.total in Blood [facility] Lactic acid measurement [facility] Measurement of keton es in urine using dipstick [facility] Microscopic urinalysis [facility] End: 08-15-2024 MRA Head vessels WO contrast MRA BRAIN WO IVCON Radiology Routine Cerebral infarction, unspecified mechanism (HCC) 1 Occurrences starting 07/17/2023 until 08/15/2024 [facility] Work Phone: Comment on above: 1 Occurrences starti ng 07/17/2023 until 08/15/2024 End: 08-15-2024 MRA Neck vessels WO contrast MRA CAROTID WO IVCON Radiology Routine Cerebral infarction, unspecified mechanism (HCC) 1 Occurrences starting 07/17/2023 until 08/15/2024 [facility] Comment on above: 1 Occurrences starti ng 07/17/2023 until 08/15/2024 OUTSIDE VENDOR CARDI AC OUTPATIENT EXTENDED RHYTHM RECORDING (WITHOUT TELEMETRY) OUTSIDE VENDOR CARDIAC OUTPATIENT EXTENDED RHYTHM RECORDING (WITHOUT TELEMETRY) Holter Routine Recurrent strokes (HCC) Ordered: 07/17/2023 [facility] Comment on above: Ordered: 07/17/2023 OUTSIDE VENDOR CARDI AC OUTPATIENT EXTENDED RHYTHM RECORDING (WITHOUT TELEMETRY) OUTSIDE VENDOR CARDIAC OUTPATIENT EXTENDED RHYTHM RECORDING (WITHOUT TELEMETRY) Holter Routine Recurrent strokes (HCC) Ordered: 08/17/2023 [facility] Work Phone: Comment on above: Ordered: 08/17/2023 Patient Education [facility] Work Phone: Patient referral [facility] Work Phone: pH of Urine [facility] SARS-CoV-2 (COVID-19 ) RNA [Presence] in Respiratory specimen by ADELA with probe detection SELF CHECK COVMT Microbiology Routine Shortness of breath Ordered: 05/12/2021 [facility] Work Phone: Comment on above: Ordered: 05/12/2021 Specific gravity of Urine [facility] Troponin T.cardiac [Mass/volume] in Serum or Plasma by High sensitivity method [facility] Urine blood test [facility] Urine culture [facility] Urine dipstick for glucose [facility] Urine dipstick for leukocyte esterase [facility] Urine dipstick for nitrite [facility] Urine dipstick for protein [facility] Urine examination [facility] Urine microscopy: epithelial cells [facility] Urine Microscopy: wh ite cells [facility] Urobilinogen [Presen ce] in Urine [facility] End: 12-17-2022 US LEG VEIN DVT KRUNAL VAS LAB US LEG VEIN DVT KRUNAL VAS LAB Vascular Lab Routine Deep vein thrombosis (DVT) of popliteal vein of right lower extremity, unspecified chronicity (HCC) 1 Occurrences starting 12/17/2021 until 12/17/2022 [facility] Work Phone: Comment on above: 1 Occurrences starti ng 12/17/2021 until 12/17/2022 [facility] Payers Date Payer Category Payer Self-pay [id number] 2021 Private Health Insurance [facility] AARP SUPPLEMENT [id number] 2021-Present [phone] [address] [place] [address] Indemnity [id number] 2021 Private Health Insurance [id number] 2021 Unknown [id number] 2017 Medicare MEDICARE MEDICAR E A AND B [id number] 2017-Present [phone] [place] [address] Medicare [id number] 2017 Medicare [id number]. [id number]. [id number] 2017 Medicare [id number] 2017 Unknown MMO MMO SUPERMED PLUS [id number] 2017-Present [phone] [address] [place] [address] PPO [id number]. [id number] Private Health Insurance [id number] Unknown [id number] Unknown [id number] Unknown [id number]. .[id number]. [id number] Unknown [facility] [id number] Unknown [id number] 2.0.1.259470.3.579.2. 462 Unknown [id number] 2.0.1.025106.3.579.2. 462 Unknown [id number] 03.24.830.1.630879.3.579.2. 462 Unknown [id number] 2.840.1.688634.3.579.2. 462 Unknown [id number] 2.840.1.271258.3.579.2. 462 Unknown [id number] 2.840.1.614469.3.579.2. 462 Unknown [id number] 2.840.1.639370.3.579.2. 462 Unknown [id number] 2.840.1.482051.3.579.2. 462 Unknown [id number] 2.16.840.1.030753.3.579.2. 462 Unknown [id number] 2.16.840.1.046908.3.579.2. 462 Unknown [id number] 2.16.840.1.782670.3.579.2. 462 Unknown [id number] 2.16.840.1.610611.3.579.2. 462 Unknown [id number] 2.16.840.1.070292.3.579.2. 462 Unknown [id number] 2.16.840.1.689016.3.579.2. 462 Unknown [id number] 2.16840.1.198935.3.579.2. 462 Unknown [id number] 2.16840.1.898065.3.579.2. 462 Unknown [id number] 2.840.1.734539.3.579.2. 462 Unknown [id number] 2.16.840.1.684315.3.579.2. 462 Unknown [id number] 2.16.840.1.951633.3.579.2. 462 Unknown [id number] 2.16.840.1.572230.3.579.2. 462 Unknown [id number] 2.16.840.1.874523.3.579.2. 462 Unknown [id number] 2.16.840.1.805595.3.579.2. 462 Unknown [id number] 2.16.840.1.057390.3.579.2. 462 Unknown [id number] 2.16.840.1.915431.3.579.2. 462 Unknown [id number] 2.16.840.1.178599.3.579.2. 462 Unknown [id number] 2.16.840.1.637658.3.579.2. 462 Unknown [id number] 2.16.840.1.094423.3.579.2. 462 Unknown [id number] 2.16.840.1.572691.3.579.2. 462 Unknown [id number] 2.16.840.1.994971.3.579.2. 462 Unknown [id number] 2.16.840.1.717619.3.579.2. 462 Unknown [id number] 2.16.840.1.642938.3.579.2. 462 Unknown [id number] 2.16.840.1.413264.3.579.2. 462 Unknown [id number] 2.16.840.1.952719.3.579.2. 462 Unknown [id number] 2.16.840.1.740844.3.579.2. 462 Unknown [id number] 2.16.840.1.162595.3.579.2. 462 Unknown [id number] 2.16.840.1.875244.3.579.2. 462 Unknown [id number] 2.16.840.1.740722.3.579.2. 462 Social History Date Type Detail Facility Start: 08-04-2021 End: 12-05-2022 Tobacco smoking status AZIS Tobacco smoking consumption unknown [facility] Start: 1950 Sex Assigned At Not on file C [facility] Start: 05-12-2021 End: 11-22-2024 Tobacco smoking status AZIS Never smoked tobacco [facility] Start: 05-12-2021 End: 01-13-2022 Tobacco use and exposure Smokeless tobacco non-user [facility] Start: 05-12-2021 End: 08-06-2024 Alcohol intake Lifetime non-drinker (finding) [facility] Start: 05-12-2021 History SDOH Alcohol Frequency 1 [facility] Start: 05-02-2021 End: 12-17-2021 Exposure to SARS-CoV-2 (event) Not sure [facility] Start: 1950 Sex Assigned At Male [facility] Start: 12-17-2021 End: 08-06-2024 History of Social function [facility] Start: 12-17-2021 End: 08-06-2024 Tobacco use panel [facility] Start: 12-05-2022 Non-smoker [facility] Start: 05-04-2024 Sex Male (finding) [facility] Start: 01-08-2012 Sex Male [facility] Medical Equipment Procedure Code Equipment Code Equipment [...] Assessment Result Facility 10-29-2024 Functional status Ambulates [facility] Work Phone: 10-27-2024 Functional status Fair [facility] Work Phone: 12-05-2022 Functional status Chair [facility] Work Phone: 11-24-2022 Functional status Patient Activi ty Dangle Feet;Chair [facility] Work Phone: 11-24-2022 Functional status Standby Assist [facility] Work Phone: Mental Status Date Assessment Result Facility 10-29-2024 Cognitive function Voice/Name [facility] Work Phone: 12-05-2022 Cognitive function Voice/Name [facility] Work Phone: 11-24-2022 Cognitive function Voice/Name [facility] Work Phone: 11-22-2022 Cognitive function Level Of Cons ciousness Awake;Alert;Appropriate [facility] Work Phone: 09-07-2022 Cognitive function Voice/Name [facility] Work Phone: 08-04-2021 Cognitive function Level Of Cons ciousness Awake;Alert;Inappropriate [facility] Work Phone: Clinical Notes 05-06-2021 to 10-29-2024 Note Date & Type Note Facility 10-29-2024 Consult note Note Date/Time October 29, 2024 5:04pm [facility] Medical Records Department [address] [place] [address] Anesthesia Postop Eval II 10/29/24 1504 MR#: [id number] Acct: [id number] Name: GUSTAVO PATTON Rep #:[id number] : 1950 73 From: Shanell harrison CRNA PCP: Dr. Tracie Abreu MD Status:ADM IN Y Race: C Location: [place] [address] 0-1 Anesthesia Postop Eval I Sum Postop Eval Completion status Anesthesia document: Postop Eval 1 completed: Yes Anesthesia Postop Eval I Summary Anesthesia Postop Eval I Summary: Anesthesia Postop Eval I: Assessment Summary Airway patent Yes 10/29/24 10:07 MIXER HELPER.TNES Spontaneous unlabored Yes 10/29/24 10:07 MIXER HELPER.TNES respirations Mental status nausea No 10/29/24 10:07 MIXER HELPER.TNES Vomiting No 10/29/24 10:07 MIXER HELPER.TNES Anesthesia Postop Eval I: Fluid Summary Crystalloid volume administer 200 10/29/24 10:07 MIXER HELPER.TNES (ml) Colloids volume administered ( ml) Blood Product volume administered (ml) Total IV fluid infused 200 10/29/24 10:07 MIXER HELPER.TNES Anesthesia Postop Eval I: Summary Notes Anesthesia Complication No 10/29/24 10:07 MIXER HELPER.TNES Anesthesia Complication Comment: Post-operative progress note Anesthesia: Postop Eval II Evaluation Mental status: Awake and Calm Pain Level: 0 nausea: No Vomiting: No Complications Anesthesia Complication: No 10/29/24 1504 <Electronically signed by Shanell maria MIXER HELPER> Date _ Shanell Abdullahiigner Signature: Date CC: ~ Signed [facility] Work Phone: 1(159) 672-652609-23-2025 Consult note Author Concha Silveira [facility] Note Date/Time October 29, 2024 5:04pm [facility] Medical Records Department [address] [place] [address] Counseling Note - Pharmacy 10/29/24 1419 MR#: [id number] Acct: [id number] Name: GUSTAVO PATTON Rep #:[id number] : 1950 73 From: Concha Silveira PCP: Dr. Tracie Abreu MD Status:ADM IN Location: [place] [address] Pharmacy [place] Med Reconciliation Pharmacy Service has [...] Signature (if applicable): Date CC: ~ Signed [facility] Work Phone: 1(813) 794-147709-23-2025 Discharge summary Author Javon Baldwin [facility] Note Date/Time October 29, 2024 1:37pm [facility] Medical Records Department [address] [place] [address] Discharge Summary 10/29/24 1333 MR#: [id number] Acct: [id number] Name: GUSTAVO PATTON Rep #:[id number] : 1950 73 From: Javon Baldwin DO PCP: Dr. Tracie Abreu MD Status:ADM IN Location: [place] [address] Providers Date of Admission: 10/17/24 Primary Care Physician: Tracie Abreu MD Consultations 10/17/24 21:42 Consult: Urology Routine Consulting Provider: Jose R Rg Reason for Consult: Hematuria with Urinary Retention. EMERGENT Consult: No MD Notified: Yes Date Notified: 10/17/24 Time Notified: 21:05 Method of Notification: ED Physician Initiated 10/19/24 07:46 Consult: Nephrology Routine Consulting Provider: Rodney Chavez Reason for Consult: CHRISTY EMERGENT Consult: [...] catheter insertion depending on wbc Disposition: to [facility]. Medications at Discharge Home Medications multivitamin 1 [...] 79.7 H, Lymph % (Auto) 8.7 L, Stone % (Auto) 6.1, Eos % (Auto) 3.5, Baso % (Auto) 0.8, Absolute Neuts (auto) 10.9 H, Absolute Lymphs (auto) 1.19, Nucleated RBC % 0, APTT 28.4, [id number], Potassium 4.0, Chloride 107, Carbon Dioxide 19.4 [...] right atrium. Mild bibasilar atelectasis. Reading Location: [facility]-1 D/C Instructions DC O2, CPAP, BIPAP Needs [...] in before D/C Order can be placed): [facility] Facility Charges/Coding Visit Charges Inpatient E&M: 16936 Disch Hosp >30min 10/29/24 1337 <Electronically signed by Javon Baldwin DO> Cosigner Signature (if applicable): CC: Dr. Tracie Abreu MD; Dr. Javon Baldwin DO~ Signed [facility] Work Phone: 1(166) 328-540109-23-2025 Discharge summary Author Javon Baldwin [facility] Note Date/Time October 29, 2024 1:33pm [facility] Medical Records Department [address] [place] [address] Transfer to [facility] Care MR#: [id number] Acct: [id number] Name: GUSTAVO PATTON Rep #:[id number] : 1950 73 From: Javon Baldwin DO PCP: Dr. Tracie Abreu MD Status:ADM IN Certification of patient admission REQUIRED AT TIME OF ADMISSION. I CERTIFY THAT POST-HOSPITAL ECF SERVICES ARE REQUIRED TO BE GIVEN ON AN IN-PATIENT BASIS BECAUSE OF THE ABOVE NAMED PATIENT'S NEED FOR JAIL CARE ON A CONTINUING BASIS FOR THE [...] catheter insertion depending on wbc Disposition: to [facility]. Allergies/Procedures Done in Hospital Allergies No Known Allergies Allergy (Verified 10/17/24 22:17) Procedures: Dialysis Type of Care/Length of Stay Estimated LOS: Convalescent Care Less Than 30 days Type of Care Needed: Skilled Rehab Potential: Fair Prognosis: Fair Additional Orders/Day of Discharge Day of Discharge: 10/29/24 Dietary and Speech Recommendations Dietitian Recommendations/Changes: Adjust to consistent carbohydrate diet with sodium restriction per VARNISH REMOVER recommendations. Will monitor weight, labs, and make [...] in before D/C Order can be placed): [facility] Facility (4) Fall Qualifiers: Encounter type: initial [...] Lake MD; Dr. Juan Palacios MD ~ [facility] Work Phone: 1(364) 280-892609-23-2025 Progress note Author Javon Baldwin [facility] Note Date/Time October 29, 2024 1:25pm [facility] Medical Records Department [address] [place] [address] Progress Note - Hospitalist 10/29/24819 MR#: [id number] Acct: [id number] Name: GUSTAVO PATTON Rep #:[id number] : 1950 73 From: Javon Baldwin DO PCP: Dr. Tracie Abreu MD Status:ADM IN Location: [facility] [id number] Reason for Visit Chief Complaint: Fall at [...] 79.7 H, Lymph % (Auto) 8.7 L, Stone % (Auto) 6.1, Eos % (Auto) 3.5, Baso % (Auto) 0.8, Absolute Neuts (auto) 10.9 H, Absolute Lymphs (auto) 1.19, Nucleated RBC % 0, APTT 28.4, Pmjojw818, Potassium 4.0, Chloride 107, Carbon Dioxide 19.4 [...] catheter insertion depending on wbc Disposition: to [facility]. 10/29/24 1325 <Electronically signed by Javon Baldwin DO> Cosigner Signature (if applicable): CC: ~ Signed [facility] Work Phone: 1(560) 826-569309-23-2025 Progress note Author Rodney Chavez [facility] Note Date/Time October 29, 2024 5:04pm [facility] Medical Records Department [address] [place] [address] Progress Note - Nephrology 10/29/24 1249 MR#: [id number] Acct: [id number] Name: GUSTAVO PATTON Rep #:[id number] : 1950 73 From: Rodney pringle MD PCP: Dr. Tracie Abreu MD Status:ADM IN Location: [place] [address] Subjective Subjective no new events s/p TDC [...] 79.7 H, Lymph % (Auto) 8.7 L, Stone % (Auto) 6.1, Eos % (Auto) 3.5, Baso % (Auto) 0.8, Absolute Neuts (auto) 10.9 H, Absolute Lymphs (auto) 1.19, Nucleated RBC % 0, APTT 28.4, Kretsb829, Potassium 4.0, Chloride 107, Carbon Dioxide 19.4 [...] right atrium. Mild bibasilar atelectasis. Reading Location: [facility]-IR-1 Physical Exam Narrative Alert and oriented [...] rhabdom[place] [address] [place]/L on 10/18/2024. Acute kidney injury on [...] Cosigner Signature (if applicable): CC: ~ Signed [facility] Work Phone: 1(110) 381-640909-23-2025 [facility]09-23-2025 Consult note Author Vicky Rowan [facility] Note Date/Time October 29, 2024 5:04pm [facility] Medical Records Department [address] [place] [address] Pharmacokinetic/Renal -Consult 10/29/24 1130 MR#: [id number] Acct: [id number] Name: GUSTAVO PATTON Rep #:[id number] : 1950 73 From: Vicky Rowan PCP: Dr. Tracie Abreu MD Status:ADM IN Location: [place] [address] Consult Antibiotic Management Pharmacy has been consulted [...] Function: Patient HD dependent- HD schedule is M// per Dialysis nurse Renal Function Trend: n/a Lab/Micro: cultures showing NGTD Any Change in Vanc Plan: Patient had dialysis catheter placement completed today. Discussed case with Tl dermatopathologist to formulate a dosing plan. patientis getting HD today, so patient will get vancomycin 750mg IV x1 post-HD treatment. The patient will be on a HD schedule of M/W/ with next planned HD 10/30/24 per nursing. Will order a random level tomorrow morning pre-HD to determine next dose. Will continue to dose per pre-HD levels. Pending Level: *RANDOM* 10/30/24 @0600 Pharmacy Service will continue to monitor and adjust dosing as required. 10/29/24 1130 <Electronically signed by Vicky Rowan > Date _ Vicky Rowan Cosigner Signature (if applicable): Date CC: ~ Signed [facility] Work Phone: 1(229) 926-738509-23-2025 Consult note Author Domingo Nugentbitt [facility] Note Date/Time October 29, 2024 10:08[facility] Medical Records Department [address] [place] [address] Anesthesia Postop Eval I 10/29/24 1007 MR#: [id number] Acct: [id number] Name: GUSTAVO PATTON Rep #:[id number] : 1950 73 From: Domingo BURCIAGA PCP: Dr. Tracie Abreu MD Status:ADM IN Y Race: C Location: [place] [address] 0-1 Anesthesia: Postop Eval I Current Vital [...] by Domingo Gonsalez CRNA> Date _ Domingo Nance Signature: Date CC: ~ Signed [facility] Work Phone: 1(714) 377-806009-23-2025 Radiology Diagnostic study [facility]09-23-2025 History and physical note Author Juan Palacios [facility] Note Date/Time October 29, 2024 8:55am [facility] Medical Records Department [address] [place] [address] History & Physical Exam 10/29/2454 MR#: [id number] Acct: [id number] Name: GUSTAVO PATTON Rep #:[id number] : 1950 73 From: Juan Palacios MD PCP: Dr. Tracie Abreu MD Status:ADM [facility] - General General Date of Admission: 10/17/24 Date of Service: 10/29/24 Chief Complaint: Fall at Home. 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 pets and animals: No Smoking Status: Never [...] 79.7 H, Lymph % (Auto) 8.7 L, Stone % (Auto) 6.1, Eos % (Auto) 3.5, Baso % (Auto) 0.8, Absolute Neuts (auto) 10.9 H, Absolute Lymphs (auto) 1.19, Nucleated RBC % 0, APTT 28.4, [id number], Potassium 4.0, Chloride 107, Carbon Dioxide 19.4 [...] applicable): CC: Dr. Tracie Abreu MD; Dr. Juan Palacios MD~ Signed [facility] Work Phone: 1([phone]) 366-225309-23-2025 Consult note Author [facility] Note Date/Time October 29, 2024 8:33am [facility] Medical Records Department [address] [place] [address] Pre-Anesthesia Evaluation 10/29/24 0820 MR#: [id number] Acct: [id number] Name: GUSTAVO PATTON Rep #:[id number] : 1950 73 From: Jefferson Alejo MD PCP: Dr. Tracie Abreu MD Status:ADM IN Y Race: C Location: [place] [address] 0-1 ASA Classification* ASA Classification ASA Classification: [...] catheter placement. Anesthesia History Anesthesia History - associate drafter: Anesthesia History - associate drafter Hx Hospitalization Any Problems With Anesthesia No [...] take am of surgery PONV PONV - associate drafter: PONV - associate drafter Female HX of Motion Sickness HX of N/V After Surgery Non-Smoker Duration of Surgery greater than 60 minutes Number of Risk Factors PONV Score Height & Weight Height & Weight: Anesthesia: Height & Weight Height 5 ft 10 in 10/29/24 02:52 Weight: 88.4 kg 10/29/24 02:52 Body Mass Index (BMI) 27.9 10/29/24 02:52 Respiratory Assessment Respiratory Assessment - associate drafter: Respiratory Tract Infection Hx - associate drafter Hx Respiratory Tract Infection No 10/29/24 02:52 Any additional information?: Yes Hx Respiratory Tract Infection: Yes History of Anesthesia Respiratory Infection details: Patient believes he had pneumonia about 2 weeks ago. Unclear if he got antibiotics. 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] 100 Unit/Ml Insuln.Pen SC Not Given ACHS [facility] Protocol Ipratropium [place] 1 spray 10/17/24 22:00 Ipratropium Frank[place]muth 0.06% Nasal Bude NASAL BID PRN ALLERGIES Loratadine 10 mg [...] Capsule PO 0.4 mg DAILY@1730 SHIRA Administration [facility]LY [facility] Medical History Facial droop Dysphagia Primary cardiomyopathy [...] number of children: 0 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 pets and animals: No Smoking Status: Never smoker alcohol intake: never substance use type: does not use Review of Systems (Anesthesia) ROS Narrative System reviewed and no additional complaints, except as documented. 10/29/24832 <Electronically signed by Jefferson garza MD> Date _ Jefferson Alejo MD Cosigner Signature: Date CC: ~ Signed [facility] Work Phone: 1(183) 958-270809-23-2025 Procedure [facility] 10-29-2024 [facility]09-22-2025 Progress note Author Javon Baldwin [facility] Note Date/Time October 28, 2024 2:49pm [facility] Medical Records Department [address] [place] [address] Progress Note - Hospitalist 10/28/24913 MR#: [id number] Acct: [id number] Name: GUSTAVO PATTON Rep #:[id number] : 1950 73 From: Javon Baldwin DO PCP: Dr. Tracie Abreu MD Status:ADM IN Location: [place] [address] Reason for Visit Chief Complaint: Fall at [...] 74.3 H, Lymph % (Auto) 12.1 L, Stone % (Auto) 6.2, Eos % (Auto) 4.0, [...] medically ready. Charges/Coding Visit Charges Inpatient E&M: 44754 Subs Hosp L2 10/28/24 1445 <Electronically signed by Javon Baldwin DO> Cosigner Signature (if applicable): CC: ~ Signed [facility] Work Phone: 1(452) 686-438109-22-2025 Progress note Author Roxanna Rahman [facility] Note Date/Time October 28, 2024 1:18pm [facility] Medical Records Department [address] [place] [address] Progress Note - Surgery 10/28/24 0808 MR#: [id number] Acct: [id number] Name: GUSTAVO PATTON Rep #:[id number] : 1950 73 From: Roxanna MCCLAIN PA-C PCP: Dr. Tracie Abreu MD Status:ADM IN Location: [place] [id number]- [id number] Subjective Subjective Patient evaluated resting comfortably [...] Room Air 2 10/28/24 03:10/28/24 03:20 10/28/24 03:20 10/28/24 03:10/28/24 03:10/28/24 03:10/27/24 10:50 Oxygen Flow Rate (L/min) 2 [...] 74.3 H, Lymph % (Auto) 12.1 L, Stone % (Auto) 6.2, Eos % (Auto) 4.0, [...] completely healed Assessment & Plan Assessment/Plan (1) CHRISTY (acute [...] this patient Charges/Coding Visit Charges Inpatient E&M: 62738 Subs Hosp L2 10/28/24 0857 <Electronically signed by Roxanna MCCLAIN PA-C> Cosigner Signature (if applicable): CC: ~ Signed ADDENDUM by JOSE Rahman on 10/28/24 at 1318 Addendum Patient is tentatively scheduled for tunneled catheter placement at approximately 8:45 AM on 10/[address] Juan Palacios. 10/28/24 1318<Electronically signed by Roxanna MCCLAIN PA-C> Cosigner Signature (if applicable): cc: ~* Signed [facility] Work Phone: 1(599) 869-713509-22-2025 Progress note Author Rodney Chavez [facility] Note Date/Time October 28, 2024 11:04am [facility] Medical Records Department [address] [place] [address] Progress Note - Nephrology 10/28/243 MR#: [id number] Acct: [id number] Name: GUSTAVO PATTON Rep #:[id number] : 1950 73 From: Rodney pringle MD PCP: Dr. Tracie Abreu MD Status:ADM IN Location: [place] [address] Subjective Subjective No new complaints today Objective [...] 74.3 H, Lymph % (Auto) 12.1 L, Stone % (Auto) 6.2, Eos % (Auto) 4.0, [...] rhabdomyolysis [place] [address]21 [place]/L on 10/18/2024. Acute kidney injury on [...] Cosigner Signature (if applicable): CC: ~ Signed [facility] Work Phone: 1(656) 505-813609-22-2025 Progress note Author Tristin Caba [facility] Note Date/Time October 28, 2024 10:01am [facility] Medical Records Department [address] [place] [address] Progress Note - Nephrology 10/24/24 0958 MR#: [id number] Acct: [id number] Name: GUSTAVO PATTON Rep #:[id number] : 1950 73 From: Tristin harrison NP-C PCP: Dr. Tracie Abreu MD Status:ADM IN Location: [place] [address] Subjective Subjective Sitting in chair, no complaints [...] Mild bilateral pulmonary vascular congestion. Reading Location: [facility] Physical Exam Narrative Alert and oriented [...] catheter placed and outpatient hemodialysis arrangements to [facility] Dx: CHRISTY. Will plan for dialysis tomorrow with fluid removal. Reviewed chest x-ray today showing mild pulmonary congestion. History of DVT on heparin drip. Assessment and plan reviewed with Dr. Chavez. 10/24/24 1005 <Electronically signed by Tristin HERRMANN> Cosigner Signature (if applicable): 10/28/24 1001 <Electronically signed by Rodney Chavez MD> CC: ~ Signed [facility] Work Phone: 1(783) 330-990909-22-2025 Progress note Author [facility] Note Date/Time October 28, 2024 10:01am [facility] Medical Records Department [address] [place] [address] Progress Note - Nephrology 10/25/24 1549 MR#: [id number] Acct: [id number] Name: GUSTAVO PATTON Rep #:[id number] : 1950 73 From: Tristin HERRMANN PCP: Dr. Tracie Abreu MD Status:ADM IN Location: [place] [id number]- 1 Subjective Subjective Sitting in chair. No [...] Clarity Clear, Urine pH 6.0, Ur Specific [place] 1.010, Urine Protein 100 H, Urine Glucose [...] Mild degree of bibasilar atelectasis. [facility] Physical Exam Narrative Alert and oriented [...] the weekend. Outpatient hemodialysis arrangements [place] to [facility] Dx: CHRISTY. Assessment and plan reviewed with Dr. Chavez. 10/25/24 1554 <Electronically signed by Tristin HERRMANN> Cosigner Signature (if applicable): 10/28/24 1001 <Electronically signed by Rodney Chavez MD> CC: ~ Signed [facility] Work Phone: 1(533) 155-374709-21-2025 Progress note Author Rosmery [facility] Note Date/Time October 27, 2024 5:07pm [facility] Medical Records Department [address] [place] [address] Progress Note 10/27/24 1236 MR#: [id number] Acct: [id number] Name: GUSTAVO PATTON Rep #:[id number] : 1950 73 From: Rosmery Lake MD PCP: Dr. Tracie Abreu MD Status:ADM IN Location: [place] [address] Subjective Subjective Patient seen and examined. He [...] 72.5 H, Lymph % (Auto) 12.7 L, Stone % (Auto) 5.9, Eos % (Auto) 3.8, [...] need placement Charges/Coding Visit Charges Inpatient E&M: 76648 Subs Hosp L2 10/27/24 0133 <Electronically signed by Rosmery Lake MD> Rosmery Lake MD Cosigner Signature (if applicable): CC: ~ Signed [facility] Work Phone: 1(276) 824-564709-21-2025 Progress note Author [facility] Note Date/Time October 27, 2024 11:23am [facility] Medical Records Department [address] [place] [address] Progress Note - Surgery 10/27/24 1118 MR#: [id number] Acct: [id number] Name: GUSTAVO PATTON Rep #:[id number] : 1950 73 From: Eliot Greenwood PCP: Dr. Tracie Abreu MD Status:ADM IN Location: [place] [address] Subjective Subjective Patient seen and examined during [...] 09:29 10/27/24 09:29 10/27/24 09:29 10/27/24 09:10/27/24 09:29 10/27/24 10:50 Oxygen Flow Rate [...] 72.5 H, Lymph % (Auto) 12.7 L, Stone % (Auto) 5.9, Eos % (Auto) 3.8, [...] 5. Nonobstructing left renal calculus. Reading Location: [facility] Physical Exam Const no apparent distress Constitutional [...] Hand MD General Surgery Endocrine Surgery Pager: [facility] [address] [place] [address], [address] [place] [address] Office: [phone] Charges/Coding Visit Charges Inpatient E&M: 33049 Subs Hosp L2 10/27/24 1123 <Electronically signed by Eliot Hand MD> Cosigner Signature (if applicable): CC: ~ Signed [facility] Work Phone: 1(177) 853-749809-21-2025 Progress note Author Marlee Preston tr [facility] Note Date/Time October 27, 2024 2:47am [facility] Medical Records Department [address] [place] [address] Progress Note - Nephrology 10/26/242008 MR#: [id number] Acct: [id number] Name: GUSTAVO PATTON Rep #:[id number] : 1950 73 From: Marlee blood MD PCP: Dr. Tracie Abreu MD Status:ADM IN Location: [place] [address] Subjective Subjective Following for CHRISTY. Patient denies [...] L, Globulin (PEP) 3.6, Albumin/Globulin (PEP) 0.7, Oeykt-1-Zncplfruz 0.3, Worvo-4-Ifqbmpfvt 1.2 H,Beta Globulins 1.0, Gamma Globulins 1.0, [...] 5. Nonobstructing left renal calculus. Reading Location: [facility] Physical Exam Narrative Alert and oriented [...] [place]habdom[place] [address] [place]/L on 10/18/2024. Acute kidney injury on [...] again tomorrow. Outpatient hemodialysis arrangements [place] to [facility] when patient is ready to be discharged. 10/27/24 0247 <Electronically signed by Marlee Camargo MD> Cosigner Signature (if applicable): CC: ~ Signed [facility] Work Phone: 1(157) 222-547009-20-2025 Consult note Author Quinn Kline [facility] Note Date/Time October 26, 2024 3:18pm [facility] Medical Records Department [address] [place] [address] Pharmacokinetic/Renal -Consult 10/26/24 1506 MR#: [id number] Acct: [id number] Name: GUSTAVO PATTON Rep #:[id number] : 1950 73 From: Quinn santizo PCP: Dr. Tracie Abreu MD Status:ADM IN Location: [place] [id number]- Consult Antibiotic Management Pharmacy has been consulted [...] time ordered]: unsure at this time 10/26/24 7001 <Electronically signed by Quinn Bolivar erg> Date _ Quinn Kline 10/26/24 1518 <Electronically signed by Rosmery galeas MD> Cosigner Signature (if applicable): Date Rosmery Lake MD CC: ~ Signed [facility] Work Phone: [phone]) [phone] Progress note Author [facility]mery [facility] Note Date/Time October 26, 2024 3:18pm [facility] Medical Records Department [address] [place], [place] [address] [address] Progress Note 10/26/24 1151 MR#: [id number] Acct: [id number] Name: GUSTAVO PATTON Rep #:[id number] : 1950 73 From: Rosmery Lake MD PCP: Dr. Tracie Abreu MD Status:ADM IN Location: [place] [address] Subjective Subjective Patient seen and examined with [...] 09:20 10/26/24 09:20 10/26/24 09:20 10/26/24 09:10/26/24 08:35 Oxygen Flow Rate (L/min) 2 [...] L, Globulin (PEP) 3.6, Albumin/Globulin (PEP) 0.7, Ollao-9-Nfclpjwgh 0.3, Ashog-8-Vnwlywwry 1.2 H,Beta Globulins 1.0, Gamma Globulins 1.0, [...] need placement Charges/Coding Visit Charges Inpatient E&M: 40479 Subs Hosp L2 10/26/24 1518 <Electronically signed by Rosmery Lake MD> Rosmery Lake MD Cosigner Signature (if applicable): CC: ~ Signed [facility] Work Phone: 1([phone]) 801-458709-20-2025 Radiology Diagnostic study [facility]09-20-2025 Progress note Author Eliot Hand [facility] Note Date/Time October 26, 2024 9:13am [facility] Medical Records Department [address] [place] [address] Progress Note - Surgery 10/26/2425 MR#: [id number] Acct: [id number] Name: GUSTAVO PATTON Rep #:[id number] : 1950 73 From: Eliot Greenwood PCP: Dr. Tracie Abreu MD Status:ADM IN Location: [place] [address] Subjective Subjective Patient seen and examined during [...] L, Globulin (PEP) 3.6, Albumin/Globulin (PEP) 0.7, Vjsmw-9-Gjjqkkxdv 0.3, Ugmdy-6-Lwmvschlx 1.2 H,Beta Globulins 1.0, Gamma Globulins 1.0, M-Ernie Comment:, PEP Note Comment, PEPInterpretation Comment, c-ANCA Antibody <1:20, Atypical p-ANCA <1:20, p-ANCA Antibody <1:20, Glomerular Base Memb Ab < 0.2, Complement C3 178 H, Complement C4 34 10/25/24 04:47: Procalcitonin 0.33 H 10/25/24 10:15: Urine Color Yellow, Urine Clarity Clear, Urine pH 6.0, Ur Specific [place] 1.010, Urine Protein 100 H, Urine Glucose [...] Hand MD General Surgery Endocrine Surgery Pager: [facility] [address] [place] [address], [address] [place] [address] Office: [phone] Charges/Coding Visit Charges Inpatient E&M: 47712 Subs Hosp L2 10/26/24 0913 <Electronically signed by Eliot Hand MD> Cosigner Signature (if applicable): CC: ~ Signed [facility] Work Phone: 1(727) 579-962909-19-2025 Progress note Author Rosmery Lake [facility] Note Date/Time October 25, 2024 5:20pm [facility] Medical Records Department [address] [place] [address] Progress Note 10/25/24 1011 MR#: [id number] Acct: [id number] Name: GUSTAVO PATTON Rep #:[id number] : 1950 73 From: Rosmery Lake MD PCP: Dr. Chalon Joel, MD Status:ADM IN Location: [facility] [id number]- 1 Subjective Subjective Patient seen and examined [...] 12:16 IMPRESSION: NORMAL RENAL ULTRASOUND. Reading Location: [facility] Physical Exam Const alert, oriented x3 [...] need placement Charges/Coding Visit Charges Inpatient E&M: 29197 Subs Hosp L2 10/25/24 6285 <Electronically signed by Rosmery Lake MD> Rosmery Lake MD Cosigner Signature (if applicable): CC: ~ Signed [facility] Work Phone: 1(993) 388-858009-19-2025 Progress note Author Cece Dennis [facility] Note Date/Time October 25, 2024 10:22[facility] Medical Records Department [address] [place] [address] Progress Note 10/25/2426 MR#: [id number] Acct: [id number] Name: GUSTAVO PATTON Rep #:[id number] : 1950 73 From: Cece Dennis MD PCP: Dr. Tracie Abreu MD Status:ADM IN Location: [place] [address] Progress Note Patient with blood count up [...] discussed with Dr. Lake. Discussed with Tristin HILTON from nephrology thinks that he should be [...] over the weekend Cece Dennis M.D. Pager: [phone] [facility] [address] [place] [address], [facility], [address] [place] [address] Office: [phone] 10/25/24 1022 <Electronically signed by Cece Dennis MD> Cece Dennis MD Cosigner Signature (if applicable): CC: ~ Signed [facility] Work Phone: 1(469) 422-887409-19-2025 Radiology Diagnostic study [facility]09-19-2025 Progress note Author Anna Condon [facility] Note Date/Time October 24, 2024 11:19pm [facility] Medical Records Department [address] [place] [address] Progress Note - Hospitalist 10/24/242316 MR#: [id number] Acct: [id number] Name: GUSTAVO PATTON Rep #:[id number] : 1950 73 From: Anna Muller PCP: Dr. Tracie Abreu MD Status:ADM IN Location: [place] [address] Hospitalist Note Stopped heparin drip per surgery's note to prep for dialysis nurse to pull temporary HD cath tomorrow at 0700, and tunneled cath placement tomorrow around noon. 10/24/242318 <Electronically signed by Anna HERRMANN> Cosigner Signature (if applicable): CC: ~ Signed [facility] Work Phone: 1(216) 734-496809-18-2025 Progress note Author Rosmery [facility] Note Date/Time October 24, 2024 4:05pm [facility] Medical Records Department [address] [place] [address] Progress Note 10/24/24 1157 MR#: [id number] Acct: [id number] Name: GUSTAVO PATTON Rep #:[id number] : 1950 73 From: Rosmery Lake MD PCP: Dr. Tracie Abreu MD Status:ADM IN Location: [place] [address] Subjective Subjective Patient seen and examined. He [...] Mild bilateral pulmonary vascular congestion. Reading Location: [facility] Physical Exam Const alert, no apparent [...] need placement Charges/Coding Visit Charges Inpatient E&M: 92750 Subs Hosp L2 10/24/24 1605 <Electronically signed by Rosmery Lake MD> Rosmery Lake MD Cosigner Signature (if applicable): CC: ~ Signed [facility] Work Phone: 1([phone]) [phone] Progress note Author Cece Dennis [facility] Note Date/Time October 24, 2024 3:33pm [facility] Medical Records Department [address] [place] [address] Progress Note - Surgery 10/24/24 1529 MR#: [id number] Acct: [id number] Name: GUSTAVO PATTON Rep #:[id number] : 1950 73 From: Cece Dennis MD PCP: Dr. Tracie Abreu MD Status:ADM IN Location: [place] [address] Subjective Subjective Patient will need tunneled dialysis [...] 12:16 IMPRESSION: NORMAL RENAL ULTRASOUND. Reading Location: [facility] Chest X-Ray 10/24/24 09:25 IMPRESSION: Mild bilateral pulmonary vascular congestion. Reading Location: [facility] Physical Exam Narrative Patient was currently [...] N.p.o. after midnight Cece Dennis M.D. Pager: [phone] [facility] [address] [place] [address], [facility], [address] [place] [address] Office: [phone] 10/24/24 1714 <Electronically signed by Cece Dennis MD> Cosigner Signature (if applicable): CC: ~ Signed ADDENDUM by Dr. Cece Dennis MD on 10/24/24 at 1533 Visit Charges Inpatient E&M: 46496 Subs Hosp L2 10/24/24 1533<Electronically signed by Cece Dennis MD> Cosigner Signature (if applicable): cc: ~* Signed [facility] Work Phone: 1(642) 695-123209-18-2025 Radiology Diagnostic study [facility]09-18-2025 Radiology Diagnostic study [facility]09-17-2025 Progress note Author Rosmery Lake [facility] Note Date/Time October 23, 2024 3:59pm [facility] Medical Records Department [address] [facility] [place] [address] Progress Note 10/23/24 1100 MR#: [id number] Acct: [id number] Name: GUSTAVO PATTON Rep #:[id number] : 1950 73 From: Rosmery Lake MD PCP: Dr. Tracie Abreu MD Status:ADM IN Location: [place] [address] Subjective Subjective Patient seen and examined. He [...] H 96 Nasal Cannula 2 10/23/24 10:10/23/24 10:10/23/24 10:00 10/23/24 10:10/23/24 10:10/23/24 10:00 10/23/24 10:00 Oxygen Flow Rate (L/min) 2 Oxygen [...] Myelocytes % 1 H, Diff Path Review June, Platelet Estimate ADEQUATE, RBC Morphology NORM C+C, [...] need placement Charges/Coding Visit Charges Inpatient E&M: 78036 Subs Hosp L2 10/23/24 8130 <Electronically signed by Rosmery Lake MD> Rosmery Lake MD Cosigner Signature (if applicable): CC: ~ Signed [facility] Work Phone: 1(317) 441-903009-17-2025 Procedure [facility] 10-22-2024 Progress note Author Rosmery [facility] Note Date/Time October 22, 2024 4:50pm [facility] Medical Records Department [address] [place] [address] Progress Note 10/22/24 1336 MR#: [id number] Acct: [id number] Name: GUSTAVO PATTON Rep #:[id number] : 1950 73 From: Rosmery Lake MD PCP: Dr. Tracie Abreu MD Status:ADM IN Location: [place] [address] Subjective Subjective Patient seen and examined. He [...] IMPRESSION: Cardiomegaly with mild congestion. Reading Location: [facility] Physical Exam Const alert, oriented x3, no [...] heparin drip Charges/Coding Visit Charges Inpatient E&M: 72118 Subs Hosp L2 10/22/24 1650 <Electronically signed by Rosmery Lake MD> Rosmery Lake MD Cosigner Signature (if applicable): CC: ~ Signed [facility] Work Phone: 1([phone]) 374-858509-16-2025 Progress note Author Rodney Chavez [facility] Note Date/Time October 22, 2024 12:18pm [facility] Medical Records Department [address] [place] [address] Progress Note - Nephrology 10/22/24 1217 MR#: [id number] Acct: [id number] Name: GUSTAVO PATTON Rep #:[id number] : 1950 73 From: Rodney pringle MD PCP: Dr. Tracie Abreu MD Status:ADM IN Location: [place] [address] Subjective Subjective seen on HD Objective Data [...] IMPRESSION: Cardiomegaly with mild congestion. Reading Location: [facility] Physical Exam Narrative Alert and oriented no [...] Cosigner Signature (if applicable): CC: ~ Signed [facility] Work Phone: 1(281) [phone] Progress note Author Tristin Caba [facility] Note Date/Time October 22, 2024 9:30am [facility] Medical Records Department [address] [place] [address] Progress Note - Nephrology 10/21/24 1044 MR#: [id number] Acct: [id number] Name: GUSTAVO PATTON Rep #:[id number] : 1950 73 From: Tristin harrison BISQUE CLEANER-C PCP: Dr. Tracie Abreu MD Status:ADM IN Location: [place] [address] Subjective Subjective Patient sitting in chair. 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 Discussed risks and benefits of hemodialysis. Questions [...] by Rodney Chavez MD> CC: ~ Signed [facility] Work Phone: 1(794) 266-198509-16-2025 Progress note Author Roxanna Rahman [facility] Note Date/Time October 22, 2024 9:14am [facility] Medical Records Department [address] [facility] [place] [address] Progress Note - Surgery 10/22/24 08 MR#: [id number] Acct: [id number] Name: GUSTAVO PATTON Rep #:[id number] : 1950 73 From: Roxanna MCCLAIN PA-C PCP: Dr. Tracie Abreu MD Status:ADM IN Location: [place] [id number]- 1 Subjective Subjective Patient evaluated resting comfortably [...] IMPRESSION: Cardiomegaly with mild congestion. Reading Location: [facility] Physical Exam Neck Neck Narrative: Right IJ [...] this time Charges/Coding Visit Charges Inpatient E&M: 13090 Subs Hosp L1 10/22/2414 <Electronically signed by Roxanna MCCLAIN PA-C> Cosigner Signature (if applicable): CC: ~ Signed [facility] Work Phone: 1(456) 181-418709-15-2025 Consult note Author Juan Palacios [facility] Note Date/Time October 21, 2024 4:47pm [facility] Medical Records Department [address] [place], [place] [address] [place] [address] Consultation - Surgical 10/21/24 1642 MR#: [id number] Acct: [id number] Name: GUSTAVO PATTON Rep #:[id number] : 1950 73 From: Juan Palacios MD PCP: Dr. Tracie Abreu MD Status:ADM IN Location: [place] [address] Assessment & Plan Assessment/Plan (1) Rhabdomyolysis: QUALIFIERS: [...] a 73 M who was admitted to [facility] recently after a fall at home. 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 pets and animals: No Smoking Status: Never [...] 81.2 H, Lymph % (Auto) 6.8 L, Stone % (Auto) 7.0, Eos % (Auto) 2.8, [...] applicable): CC: Dr. Tracie Abreu MD~ Signed [facility] Work Phone: 1(863) [phone] Progress note Author Rosmery [facility] Note Date/Time October 21, 2024 4:40pm [facility] Medical Records Department [address] [place] [place] [address] Progress Note 10/21/24 1403 MR#: [id number] Acct: [id number] Name: GUSTAVO PATTON Rep #:[id number] : 1950 73 From: Rosmery Lake MD PCP: Dr. Tracie Abreu MD Status:ADM IN Location: [place] [address] Subjective Subjective Patient seen and examined. He [...] 81.2 H, Lymph % (Auto) 6.8 L, Stone % (Auto) 7.0, Eos % (Auto) 2.8, [...] on hold. Charges/Coding Visit Charges Inpatient E&M: 51660 Subs Hosp L3 10/21/24 1434 <Electronically signed [...] Signature (if applicable): Date cc: ~* Signed [facility] Work Phone: 1(894) 119-967609-15-2025 Radiology Diagnostic study [facility]09-15-2025 Procedure [facility]09-14-2025 Progress note Author Nathalia Garcia [facility] Note Date/Time October 20, 2024 12:23pm [facility] Medical Records Department [address] [place] [address] Progress Note - Hospitalist 10/20/24 0721 MR#: [id number] Acct: [id number] Name: GUSTAVO PATTON Rep #:[id number] : 1950 73 From: Nathalia Garcia DO PCP: Dr. Tracie Abreu MD Status:ADM IN Location: [place] [address] Reason for Visit Chief Complaint: Fall at Home. Subjective Subjective No issues overnight. Patient remains on 3 L nasal cannula. His sister who is part POA has arrived from [place] and helps provide some history. He is [...] Sl. Cloudy, Urine pH 6.0, Ur Specific [place] 1.010, Urine Protein 100 H, Urine Glucose [...] 88.2 H, Lymph % (Auto) 4.9 L, Stone % (Auto) 5.6, Eos % (Auto) 0.6, [...] IMPRESSION: Multi lobar multifocal pneumonia. Reading Location: [facility] Physical Exam Const alert, oriented x3, no [...] Full code Charges/Coding Visit Charges Inpatient E&M: 70633 Subs Hosp L2 10/20/24 1223 <Electronically signed by Nathalia Garcia DO> Cosigner Signature (if applicable): CC: ~ Signed [facility] Work Phone: 1(189) 382-155709-13-2025 Consult note Author Rodney Chavez [facility] Note Date/Time October 19, 2024 4:51pm [facility] Medical Records Department [address] [place] [address] Consultation - Nephrology 10/19/24 1648 MR#: [id number] Acct: [id number] Name: GUSTAVO PATTON Rep #:[id number] : 1950 73 From: Rodney pringle MD PCP: Dr. Tracie Abreu MD Status:ADM IN Location: [place] [address] Assessment & Plan Assessment/Plan (1) CHRISTY (acute [...] ongoing events include rhabdomyolysis, CHRISTY, urinary retention. 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 pets and animals: No Smoking Status: Never [...] 83.9 H, Lymph % (Auto) 6.1 L, Stone % (Auto) 7.9, Eos% (Auto) 1.3, Baso [...] Sl. Cloudy, Urine pH 6.0, Ur Specific [place] 1.010, Urine Protein 100 H, Urine Glucose [...] has resolved No organized infiltrate Reading Location: [facility] Chest CT 10/19/24 07:49 IMPRESSION: Multi lobar multifocal pneumonia. Reading Location: [id number] 10/19/24 1651 <Electronically signed by Rodney Chavez MD> Cosigner Signature (if applicable): CC: Dr. Tracie Abreu MD~ Signed [facility] Work Phone: 1(636) 452-225309-13-2025 Progress note Author Nathalia Garcia [facility] Note Date/Time October 19, 2024 1:49pm [facility] Medical Records Department [address] [place] [address] Progress Note - Hospitalist 10/19/24 0700 MR#: [id number] Acct: [id number] Name: GUSTAVO PATTON Rep #:[id number] : 1950 73 From: Nathalia Garcia DO PCP: Dr. Tracie Abreu MD Status:ADM IN Location: [place] [address] Reason for Visit Chief Complaint: Fall at [...] 23:59 23:59 Intake Total 2429.17 / 2429.17 4452.08 / 4452.08 497.92 / 497.92 Output Total 50 / 50 Balance 2429.17 / 2429.17 4427.08 / 4427.08 447.92 / 447.92 Lab / Micro Data 10/19/24 12:00 10/19/24 04:20 Labs: Laboratory Results - last 24 hr 10/17/24 11:58: Urine Color Liliana, Urine Clarity Cloudy, Urine pH 5.0, Ur Specific [place] 1.025, Urine Protein 100 H, Urine Glucose [...] 83.9 H, Lymph % (Auto) 6.1 L, Stone % (Auto) 7.9, Eos % (Auto) 1.3, [...] Physician: Nathalia Garcia Performed By: Gerard Kulkarni RCS Chest X-Ray 10/19/24 04:00 IMPRESSION: Minimal bibasilar atelectasis in the cardiophrenic angles. Follow-up recommended to ensure resolution Previously noted left pleural effusion has resolved No organized infiltrate Reading Location: [id number] Physical Exam Const alert, oriented x3, no [...] Full code Charges/Coding Visit Charges Inpatient E&M: 43374 [facility] Hosp L3 10/19/24 7867 <Electronically signed by Nathalia Garcia DO> Cosigner [...] Cosigner Signature (if applicable): cc: ~* Signed [facility] Work Phone: 1(983) 690-548809-13-2025 Radiology Diagnostic study [facility]09-13-2025 Radiology Diagnostic study [facility]09-12-2025 Progress note Author Nathalia Garcia [facility] Note Date/Time October 18, 2024 7:17pm [facility] Medical Records Department [address] [place] [address] Progress Note - Hospitalist 10/18/24805 MR#: [id number] Acct: [id number] Name: GUSTAVO PATTON Rep #:[id number] : 1950 73 From: Nathalia Garcia DO PCP: Dr. Tracie Abreu MD Status:ADM IN Location: [place] [address] Reason for Visit Chief Complaint: Fall at [...] 88.6 H, Lymph % (Auto) 2.7 L, Stone % (Auto) 7.1, Eos % (Auto) 0.8, [...] H, Alkaline Phosphatase 104, Total Creatine Kinase 76405 H, Troponin T High Sens64 H*, Total [...] B12 680 10/18/24 04:58: Total Creatine Kinase 86538 H, Triglycerides 89, Cholesterol 84,LDL Cholesterol, Calc [...] involving the bilateral cerebral hemispheres. Reading Location: [facility] Chest X-Ray 10/17/24 18:25 IMPRESSION: Small left pleural effusion, superimposed consolidation not excluded. Reading Location: [facility] Physical Exam Const alert, oriented x3, no [...] Full code Charges/Coding Visit Charges Inpatient E&M: 36174 Subs Hosp L2 10/18/241916 <Electronically signed by Nathalia Garcia DO> Cosigner Signature (if applicable): CC: ~ Signed [facility] Work Phone: 1(448) 643-743309-12-2025 Consult note Author Jose R Rg [facility] Note Date/Time October 18, 2024 11:57am [facility] Medical Records Department [address] [place] [address] Consultation 10/18/24 1154 MR#: [id number] Acct: [id number] Name: GUSTAVO PATTON Rep #:[id number] : 1950 73 From: Jose R Rg MD PCP: Dr. Tracie Abreu MD Status:ADM IN Location: [place] [address] Assessment & Plan Assessment/Plan (1) Urinary retention: [...] the wire I put in a 16 Peruvian nooksack tip catheter he did have a mild [...] the catheter call me with any questions. 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 pets and animals: No Smoking Status: Never [...] 88.6 H, Lymph % (Auto) 2.7 L, Stone % (Auto) 7.1, Eos % (Auto) 0.8, [...] H, Alkaline Phosphatase 104, Total Creatine Kinase 95496 H, Troponin T High Sens64 H*, Total [...] B12 680 10/18/24 04:58: Total Creatine Kinase 14989 H, Triglycerides 89, Cholesterol 84,LDL Cholesterol, Calc [...] involving the bilateral cerebral hemispheres. Reading Location: [facility] Chest X-Ray 10/17/24 18:25 IMPRESSION: Small left pleural effusion, superimposed consolidation not excluded. Reading Location: [facility] 10/18/24 1157 <Electronically signed by Jose R Rg MD> Cosigner Signature (if applicable): CC: Dr. Tracie Abreu MD~ Signed [facility] Work Phone: 1(189) 202-760609-12-2025 [facility]09-12-2025 History and physical note Author Kenrick Valenciaenzo [facility] Note Date/Time October 18, 2024 6:22am [facility] Medical Records Department [address] [place] [address] H&P Exam - Hospitalist 10/17/242012 MR#: [id number] Acct: [id number] Name: GUSTAVO PATTON Rep #:[id number] : 1950 73 From: Kenrick Anrdes DO PCP: Dr. Tracie Abreu MD Status:ADM IN Location: [address] 1 HPI - General General Date of [...] allergies; on loratadine andOA who presents to [facility] ER complaining of fall at home. Mr. [...] is expected to extend beyond 2 midnights. [facility] Medical History (Updated 10/18/24 @ 02:[address] 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 pets and animals: No Smoking Status: Never [...] 88.6 H, Lymph % (Auto) 2.7 L, Stone % (Auto) 7.1, Eos % (Auto) 0.8, [...] AST 392 H, ALT 77 H, Alkaline [id number], Total Creatine Kinase 88106 H, Total Protein 8.2, Albumin 4.0, Globulin [...] involving the bilateral cerebral hemispheres. Reading Location: [facility] Chest X-Ray 10/17/24 18:25 IMPRESSION: Small left pleural effusion, superimposed consolidation not excluded. Reading Location: [facility] Assessment & Plan Assessment/Plan (1) SIRS (systemic inflammatory response syndrome): (2) Sinus tachycardia seen on clinical applications manager: (3) CHRISTY (acute kidney injury): (4) Rhabdomyolysis: QUALIFIERS: Rhabdomyolysis type: non-traumatic Qualified Code(s):M62.82 - Rhabdomyolysis (5) Fall: QUALIFIERS: Encounter type: initial encounter Qualified Code(s): W19.XXXA - Unspecified fall, initial encounter (6) Hematuria: QUALIFIERS: Hematuria type: unspecified type Qualified Code(s): R31.9 - Hematuria, unspecified (7) Urinary retention: (8) High anion gap: (9) Hyperglycemia due to type 2 diabetes mellitus: QUALIFIERS: Diabetes mellitus health and safety tech insulin use: without health and safety tech use Qualified Code(s): E11.65 - Type 2 [...] responsive hypotension Charges/Coding Visit Charges Inpatient E&M: 89880 Init Hosp L3 10/18/24 0622 <Electronically signed by Kenrick Ng DO> Cosigner Signature (if applicable): CC: Dr. Tracie Abreu MD; Dr. Kenrick Ng DO~ Signed [facility] Work Phone: 1(894) 877-441109-11-2025 Evaluation note* Diagnosis Onset Date Resolution Status Admit Date Debility acute October 8:58pm Unable to ambulate acute Septem ino 2024 8:58pm Urethral stricture acute Septem ino 2024 8:58pm Urinary retention acute Septemb er 2024 8:58pm Acidosis, lactic resolved Septembe r 2024 8:58pm Acute renal failure due to rhabdomyolysis resolved October 17, 2024 8:58pm CHRISTY (acute kidney injury) resolved October 17, 2024 8:58pm Closed head injury resolved ino 2024 8:58pm Elevated troponin resolved Septemb er 2024 8:58pm Fall resolved October 8:58pm Hematuria resolved October 8:58pm High anion gap resolved October 17, 2024 8:58pm High anion gap metabolic acidosis resolved October 17, 2024 8:58pm Laceration of nose resolved ino 2024 8:58pm Rhabdomyolysis resolved October 17, 2024 8:58pm Sinus tachycardia seen on clinical applications manager resolved October 17, 2024 8:58pm SIRS (systemic inflammatory response syndrome) resolved October 8:58pm Chronic anticoagulation inactive S eptember 2024 8:58pm Essential (primary) hypertension inactive October 17, 2024 8:58pm History of DVT (deep vein thrombosis) inactive October 17, 2024 8:58pm History of multiple strokes inactive October 17, 2024 8:58pm Hyperglycemia due to type 2 diabetes mellitus inactive October 8:58pm Parkinson disease inactive Octemb er 2024 8:58pm Primary cardiomyopathy inactive Se ptember 2024 8:58pm Stroke/cerebrovascular accident inactive October 17, 2024 8:58pm [facility] Work Phone: 1(604) 800-988409-11-2025 Discharge summary Author Gamal Irwin [facility] Note Date/Time October 17, 2024 8:16pm [facility] Medical Records Department [address] [place] [address] Emergency Department Summary 10/17/24 MR#: [id number] Acct: [id number] Name: GUSTAVO PATTON Rep #:[id number] : [...] due to cold extremities. 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 pets and animals: No Smoking Status: Never [...] 88.6 H Lymph % (Auto) 2.7 L Stone % (Auto) 7.1 Eos % (Auto) 0.8 [...] H Alkaline Phosphatase 104 Total Creatine Kinase 13988 H Total Protein 8.2 Albumin 4.0 Globulin [...] involving the bilateral cerebral hemispheres. Reading Location: [facility] Chest X-Ray 10/17/24 18:25 IMPRESSION: Small left pleural effusion, superimposed consolidation not excluded. [facility] of the head was reviewed. [...] 102 ms. QT duration [place] 12 ms. [place] is unremarkable. Patient has nonsevere changes which [...] results, initiation of therapy), Discussing w/Patient &/or Family/Quill Picking Machine Operator, Discussing w/Consultants and Arranging Admission or Transfer Discharge Plan Dx/Rx/DC Orders Clinical Impression: Acute renal failure due to rhabdomyolysis, Debility, Essential (primary) hypertension, Primary cardiomyopathy, Closed head injury, Laceration of nose, History of multiple strokes, Acidosis, lactic, High anion gap, Sinus tachycardiaseen on clinical applications manager Disposition Disposition: Acute Care Hospital [facility] What to do if you have Problems For any increased pain, shortness of breath, bleeding, nausea or vomiting, chestpain, or any unexpected problems, contact your Primary Care Provider. Call [facility] ([phone]) or report to the closest Emergency Room. Call 911 if necessary. 10/17/242015 <Electronically signed by Gamal Irwin MD> Cosigner Signature (if applicable): CC: Dr. Tracie Abreu MD ~ Signed [facility] Work Phone: 1(711) 133-794609-11-2025 Discharge summary [facility] Medical Records Department [address] [place] [address] Emergency Department Summary 10/17/24 MR#: [id number] Acct: [id number] Name: GUSTAVO PATTON Rep #:[id number] : [...] due to cold extremities. 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 pets and animals: No Smoking Status: Never [...] performed: 10/17/24 Time exam was performed: 20:08 [facility] MDM MDM Narrative Medical decision making narrative: [...] 88.6 H Lymph % (Auto) 2.7 L Stone % (Auto) 7.1 Eos % (Auto) 0.8 [...] H Alkaline Phosphatase 104 Total Creatine Kinase 78443 H Total Protein 8.2 Albumin 4.0 Globulin [...] involving the bilateral cerebral hemispheres. Reading Location: [facility] Chest X-Ray 10/17/24 18:25 IMPRESSION: Small left pleural effusion, superimposed consolidation not excluded. Reading Location: [facility] CT of the head was reviewed. This [...] 102 ms. QT duration [place] 12 ms. [place] is unremarkable. Patient has nonsevere changes which [...] results, initiation of therapy), Discussing w/Patient &/or Family/Quill Picking Machine Operator, Discussing w/Consultants and Arranging Admission or Transfer Discharge Plan Dx/Rx/DC Orders Clinical Impression: Acute renal failure due to rhabdomyolysis, Debility, Essential (primary) hypertension, Primary cardiomyopathy, Closed head injury, Laceration of nose, History of multiple strokes, Acidosis, lactic, High anion gap, Sinus tachycardiaseen on clinical applications manager Disposition Disposition: Acute Care Hospital [facility] What to do if you have Problems For any increased pain, shortness of breath, bleeding, nausea or vomiting, chestpain, or any unexpected problems, contact your Primary Care Provider. Call [facility] ([phone]) or report tothe closest Emergency Room. Call 911 if necessary. 10/17/242015 Cosigner Signature (if applicable): CC: Dr. Tracie bAreu MD ~ Signed [facility]09-11-2025 Radiology Diagnostic study note [facility] Imaging Services [address] [place], [place] [address] Brain/Head without Contrast MR#: [id number] Acct: [id number] Name: GUSTAVO PATTON Rep #: [id number] : 1950 M 73 From: Jalil Bolton MD PCP: Dr. Tracie Abreu MD Status: PRE ER Study:Brain/Head without Contrast Date of Exa m: 10/17/24 Exam# [id number] Ordering Dr: Edilson Irwin MD PROCEDURE: CT [...] involving the bilateral cerebral hemispheres. Reading Location: [facility] CC: Dr. Tracie Abreu MD; Dr. Gamal Irwin MD ~ [employer] Sales Representative: Signed [facility]09-11-2025 Radiology Diagnostic study note [facility] Imaging Services [address] [place], [place] [address] Chest 1 View (Portable) MR#: [id number] Acct: [id number] Name: GUSTAVO PATTON Rep #: [id number] : 1950 M 73 From: Dominguez Ibarra MD PCP: Dr. Tracie Abreu MD Status: PRE ER Study:Chest 1 View (Portable) Date of Exam: 10/17/24 Exam# [id number] Ordering Dr: Edilson Irwin MD PROCEDURE: CHEST [...] effusion, superimposed consolidation not excluded. Reading Location: [facility] CC: Dr. Tracie Abreu MD; Dr. Gamal Irwin MD ~ [employer] Sales Representative: Signed [facility]09-11-2025 Discharge summary Author Gamal Irwin [facility] Note Date/Time October 17, 2024 8:16pm [facility] Medical Records Department [address] [place] [address] Emergency Department Summary 10/17/24 MR#: [id number] Acct: [id number] Name: GUSTAVO PATTON Rep #:[id number] : [...] due to cold extremities. 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 pets and animals: No Smoking Status: Never [...] 88.6 H Lymph % (Auto) 2.7 L Stone % (Auto) 7.1 Eos % (Auto) 0.8 [...] H Alkaline Phosphatase 104 Total Creatine Kinase 46898 H Total Protein 8.2 Albumin 4.0 Globulin [...] involving the bilateral cerebral hemispheres. Reading Location: [facility] Chest X-Ray 10/17/24 18:25 IMPRESSION: Small left pleural effusion, superimposed consolidation not excluded. Reading [facility] CT of the head was reviewed. [...] 102 ms. QT duration [place] 12 ms. [place] is unremarkable. Patient has nonsevere changes which [...] results, initiation of therapy), Discussing w/Patient &/or Family/Quill Picking Machine Operator, Discussing w/Consultants and Arranging Admission or Transfer Discharge Plan Dx/Rx/DC Orders Clinical Impression: Acute renal failure due to rhabdomyolysis, Debility, Essential (primary) hypertension, Primary cardiomyopathy, Closed head injury, Laceration of nose, History of multiple strokes, Acidosis, lactic, High anion gap, Sinus tachycardiaseen on clinical applications manager Disposition Disposition: Acute Care Hospital [facility] What to do if you have Problems For any increased pain, shortness of breath, bleeding, nausea or vomiting, chestpain, or any unexpected problems, contact your Primary Care Provider. Call [facility] ([phone]) or report to the closest Emergency Room. Call 911 if necessary. 10/17/242015 <Electronically signed by Gamal Irwin MD> Cosigner Signature (if applicable): CC: Dr. Tracie Abreu MD ~ Signed [facility] Work Phone: 1(867) 850-205508-11-2025 NoteHNO ID: [id number] Author: MONA ROACH PT Service: ? Author [...] CARE PLAN OF CARE UPDATE: Assessment: Gustavo W Farrukh is discontinued from Physical Therapy services due [...] SLS to reflect decreased fall risk. Improved [place] in home exercise program including cardiovascular exercise. [...] Session Stop Time : 1117 Mona Roach [facility]08-11-2025 History of Present illness Narrative* Mona Roach, [...] SLS to reflect decreased fall risk. Improved [place] in home exercise program including cardiovascular exercise. [...] Session Stop Time : 1117 Mona Roach PT * Mona Roach PT - 09/16/2024 11:05 AM EDT Program_ID:[id number] Access Code: [email or web address] URL: [email or web address] Date: 09-16-2024 Prepared By: Mona Roach Program [...] sets - 10 reps documented in this encounterLake[facility]07-01-2025 NoteHNO ID: [id number] Author: EDITH HART, DO Service: ? 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 He has underlying history of hypertension, diabetes mellitus, and diastolic heart failure. He was admitted to 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 He was diagnosed with left MCA infarct with petechial hemorrhage, transferred to [facility]. He also had left M1 occlusion. [...] arteries bilaterally. He was admitted again to [facility] 11/22/2022 for complaint of slurred speech [...] on 11/24/2022. Most recent MRI brain from [facility] 11/22/2022 demonstrated acute infarct in the right [...] since childhood. Lives in one-story house in [place]. Has steps to the basement. Has a friend close by who helps out. Not driving. Interim history: No complaints today. Neurologically stable. Has trip to [place] planned. No unusual bleeding or unexplained bruisin (more content not included)... [facility]07-01-2025 History of Present illness Narrative* Edith Hart, - 08/06/2024 3:43 PM EDT Hematologic problem(s): 1) H/O RLE DVT. 2) IVC filter 2021. 3) Multiple strokes in differing vascular territories. 4) Elevated factor VIII:C; normal CRP. HPI: The patient is a 73-year-old male with a past medical history as outlined below. 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 He has underlying history of hypertension, diabetes mellitus, and diastolic heart failure. He was admitted to 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 He was diagnosed with left MCA infarct with petechial hemorrhage, transferred to [facility]. He also had left M1 occlusion. [...] vertebralarteries bilaterally. He was admitted again to [facility] 11/22/2022 for complaint of slurred speech [...] on 11/24/2022. Most recent MRI brain from [facility] 11/22/2022 demonstrated acute infarct in the right [...] since childhood. Lives in one-story house in [place]. Has steps to the basement. Has a [...] 1 tablet by mouth once daily. Ipratropium [place] (ATROVENT) 21 mcg (0.03 %) nasal spray Use 1 Bude in the nose three times a day [...] No jaundice or rash. No petechiae. NEUROLOGIC: pipe roller II-XII are grossly intact. ASSESSMENT/PLAN: (I63.9) Recurrent [...] which included preparing to see the patient, [id number] patient care, completing clinical documentation, obtaining and/or reviewing separately obtained history, performing a medically appropriate examination, counseling and educating the pat ient/family/caregiver, ordering medications, tests, or procedures, communicating with other HCPs (not separately reported), and communicating results to the patient/family/caregiver. Edith Hart DO documented in this encounterLake[facility]06-24-2025 NoteHNO ID: [id number] Author: MONA ROACH PT Service: ? Author [...] in SLS to reflect decreased fall risk. [place] in home exercise program including cardiovascular exercise. Patient Goals: Get stronger, walk better Time Frame for Goals and Treatment : 09/29/24 Planned Interventions, Frequency, and Duration: Current Frequency: 1x/week Duration: 8 weeks Total Number of Visits Planned: 8 Planned Treatment Interventions: Therapeutic exercise (04092), Neuromuscular re-education (30195), Manual therapy (22896), Therapeutic activities (01679), Self-assisted management (34101), Patient/Family/Caregiver Education, Body Mechanics Training PLAN FOR [...] Explanation, Printed Materials Wells (more content not included)...[facility]06-24-2025 History of Present illness Narrative* Dain Roachn, PT - 07/30/2024 2:51 PM EDT Episode [...] in SLS to reflect decreased fall risk. [place] in home exercise program including cardiovascular exercise. Patient Goals: Get stronger, walk better Time Frame for Goals and Treatment : 09/29/24 Planned Interventions, Frequency, and Duration: Current Frequency: 1x/week Duration: 8 weeks Total Number of Visits Planned: 8 Planned Treatment Interventions: Therapeutic exercise (00977), Neuromuscular re- education (71302), Manual therapy (42912), Therapeutic activities (11090), Self- assisted management (63474), Patient/Family/Caregiver Education, Body Mechanics Training PLAN FOR [...] Roach PT - 07/29/2024 2:41 PM EDT Program_ID:[id number] Access Code: [email or web address] URL: [email or web address] Date: 07-29-2024 Prepared By: Mona Roach Program [...] sets - 10 reps documented in this encounterLakehealth [facility]06-06-2025 NoteHNO ID: [id number] Author: HALEY PRATT OCCA Service: ? Author Type: Respiratory Services Manager Type: Progress Notes Filed: 07/12/2024 14:31 Note Text: Office visit note from today's visit faxed to primary care, Dr. Fraser, as requested. [facility] History of Present illness Narrative* Haley [...] like pt to follow up with his color printer operator Dr. Dill to determine if further workupnecessary. [...] to suggest vascular cause. D/w pt and career professional dx of PD, physiology, testing, treatment and [...] concerns of parkinsonism. Patient presents with his salary and wage administrator for follow-up after starting this medication, notes [...] tablets 3 timesa day and patient and salary and wage administrator amenable, discussed increased risk of side effects with increasing t his medication and they agree and understand. Discussed importance of physical activity, discussed physical therapy and patient amenable to this. Would like to continue at [facility] as he is calledher in the past and will fax order for physical therapy over today. No falls since last appointment, discussed fall prevention with patient and salary and wage administrator. 2. Recurrent strokes (HCC) - ICD9: 434.91, [...] 1 tablet by mouth once daily. Ipratropium Frankenmuth (ATROVENT) 21 mcg (0.03 %) nasal spray Use 1 Bude in the nose three times a day [...] baseline; comprehension, naming, repetition intact. Short and health and safety tech memory intact. Fund of knowledge grossly normal [...] next week but cannot find this in Somewhere. 6. 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 Needs responsibilities or activities duringthe day to avoid sleeping whenever. Explained need to not nap during the day. Encouraged daylightexposure from 7AM to 7PM, and a dark quiet environment from 7PM to 7AM. Avoid electronics at night.Reviewed means of improving sleep hygiene. Layne Manley MD I spent a total of 40+ minutes on the date of the service which included preparing to see the patient, [id number] patient care, completing clinical documentation, obtaining and/or reviewing separately obtained history, performing a medically appropriate examination, counseling and educating the pa tient/family/caregiver, ordering medications, tests, or procedures, independently interpreting results (not separately reported), and communicating results to the patient/family/caregiver. documented in this encounterLakehealth [facility]wood [facility] Center06-06-2025 NoteHNO ID: [id number] Author: LAYNE MANLEY JR, MD Service: ? [...] like pt to follow up with his color printer operator Dr. Dill to determine if further workup necessary. Also question if pt would benefit from loop recorded but defer to cards. Otherwise no change in meds at this time. Dr. aHrt following, and patient can follow up with [...] to suggest vascular cause. D/w pt and career professional dx of PD, physiology, testing, treatment and [...] concerns of parkinsonism. Patient presents with his salary and wage administrator for follow-up after starting this medication, notes [...] 3 times a day and patient and salary and wage administrator amenable, discussed increased risk of side effects with increasing this medication and they agree and understand. Discussed importance of physical activity, discussed physical therapy and patient amenable to this. Would like to continue at [facility] as he is called her in the past and will fax order for physical therapy over today. No falls since last appointment, discussed fall prevention with patient and salary and wage administrator. 2. Recurrent strokes (HCC) - ICD9: 434.91, [...] wants to know i (more content not included)...[facility]04-08-2025 Miscellaneous Notes* Telephone Encounter - Celina Baldwin [...] office visit with this provider/department: Yes 07/12/24 MirlandeMadie Requested Prescriptions Pending Prescriptions Disp Refills carbidopa-levodopa (SINEMET 25-100) 25-100 mg per tablet [Pharmacy Med Name: CARBIDOPA-LEVODOPA 25-100 TAB] 270 tablet 1 Sig: TAKE 1 TABLET BY MOUTH THREE TIMES DAILY (AT 9AM, 1PM AND 5PM) Celina Baldwin LPN May 13, 2024 11:50 AM documented in this encounterLakehealth Beachwood [facility] Center04-08-2025 Telephone encounter Note * Telephone Encounter - Celina Baldwin LPN - 05/14/2024 1:23 PM EDT TC to pt who confirms he is taking 1.5 tablets. Celina Baldwin LPN [facility]04-07-2025 Telephone encounter Note* Telephone Encounter - Celina [...] Baldwin LPN May 13, 2024 11:50 AM [facility]01-23-2025 Evaluation note* Diagnosis Onset Date Resolution Status Admit Date Essential (primary) hypertension chronic February 28 10:23am Stroke/cerebrovascular accident chronic February 28 10:23am [facility] Work Phone: [phone] Telephone encounter Note* Telephone Encounter - Haley Pratt OCCA - 01/11/2024 3:45 PM EST TC to patient who verbalized understanding of medication sent to pharmacy. TIFFANY Noland [facility]12-05-2024 Miscellaneous Notes* Telephone Encounter - Haley Pratt [...] 11, 2024 2:06 PM documented in this encounterLakehealth Beachwood [facility] Center12-05-2024 Telephone encounter Note * Telephone Encounter - [...] Cedillo LPN January 11, 2024 2:06 PM [facility]11-14-2024 Telephone encounter Note* Telephone Encounter - Erma Olsen RN - 12/21/2023 3:50 PM EST Patient's recent Neurology note (12/06/23) has been faxed to his PCP office at [phone], for their update and for continuation of care of patient. Erma Olsen RN [facility]11-14-2024 Miscellaneous Notes* Telephone Encounter - Erma Olsen RN - 12/21/2023 3:50 PM EST Patient's recent Neurology note (12/06/23) has been faxed to his PCP office at [phone], for their update and for continuation of care of patient. Erma Olsen RN documented in this encounterLakehealth Beachwood [facility] Center10-30-2024 Telephone encounter Note * Telephone Encounter - Liv Shaw LPN - 12/06/2023 2:09 PM EDT Orders and face sheet faxed. Liv Shaw LPN December 06, 2023 2:10 PM [facility]10-30-2024 Miscellaneous Notes* Telephone Encounter - Liv Shaw LPN - 12/06/2023 2:09 PM EDT Orders and face sheet faxed. Liv Shaw LPN December 06, 2023 2:10 PM * Telephone Encounter - Fallon Steiner PA-C - 12/06/2023 1:12 PM EDT Please fax PT order to [facility] in [place]. documented in this encounterLakehealth [facility] Center10-30-2024 Telephone encounter Note * Telephone Encounter - Fallon Steiner PA-C - 12/06/2023 1:12 PM EDT Please fax PT order to [facility] in [place]. [facility]10-30-[facility] Instructions* Patient Instructions* Fallon Steiner PA-C - 12/06/2023 12:53 PM EDT Physical therapy for your neck and parkinsons Increase sinemet to 1.5 tablets three times a day Increase water intake throughout the day Follow up in 3 months documented in this encounterLakehealth Beachwood Medical Center10-30-2024 NoteHNO ID: [id number] Author: FALLON STEINER PA-C Service: ? Author Type: Physician Getterer Type: Progress Notes Filed: 12/06/2023 13:13 Note [...] like pt to follow up with his color printer operator Dr. Dill to determine if further workup [...] to suggest vascular cause. 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 Patient presents with salary and wage administrator for follow-up appointment. At last appointment was started on Sinemet due to new shuffled gait. Patient states he has been responding well to the Sinemet. Legal Instruments Examiner states that he gets up very quickly [...] for prolonged bleeding, bru (more content not included)...[facility]10-30-2024 History of Present illness Narrative* Fallon [...] like pt to follow up with his color printer operator Dr. Dill to determine if further workupnecessary. [...] to suggest vascular cause. 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 Patient presents with salary and wage administrator for follow-up appointment. At last appointment was started on Sinemet due to new shuffled gait. Patient states he has been responding well to the Sinemet. Legal Instruments Examiner states that he gets up very quickly [...] 1 tablet by mouth once daily. Ipratropium Frankenmuth (ATROVENT) 21 mcg (0.03 %) nasal spray Use 1 Bude in the nose three times a day [...] concerns of parkinsonism. Patient presents with his salary and wage administrator for follow-up after starting this medication, notes [...] tablets 3 timesa day and patient and salary and wage administrator amenable, discussed increased risk of side effects with increasing t his medication and they agree and understand. Discussed importance of physical activity, discussed physical therapy and patient amenable to this. Would like to continue at [facility] as he is calledher in the past and will fax order for physical therapy over today. No falls since last appointment, discussed fall prevention with patient and salary and wage administrator. 2. Recurrent strokes (HCC) - ICD9: 434.91, [...] which included preparing to see the patient, [id number]-[id number]-naom patient care, completing clinical documentation, obtaining and/or reviewing separately obtained history, performing a medically appropriate examination, counseling and educating the pat ient/family/caregiver, and ordering medications, tests, or procedures. This document has been created with the use of voice recognition technology. It may contain inaccuracies: (e.g. misspellings, inaccurate syntax or word sense) that have escaped review. documented in this encounterLakehealth Beachwood Medical Center10-08-2024 Telephone encounter Note * Telephone Encounter - Celina Baldwin LPN - 11/14/2023 1:11 PM EDT Requesting 90 days. Celina Baldwin LPN [facility]10-08-2024 Miscellaneous Notes* Telephone Encounter - Celina Baldwin LPN - 11/14/2023 1:11 PM EDT Requesting 90 days. Celina aBldwin LPN documented in this encounterLakehealth Beachwood Medical Center09-13-2024 Telephone encounter Note * Telephone Encounter - Liv Shaw LPN - 10/20/2023 1:14 PM EDT Called office notified fax will be coming for patient who needs appointment adriel, staff verified. Fax sent. Liv Shaw LPN October 20, 2023 1:15 PM [facility]09-13-2024 Miscellaneous Notes* Telephone Encounter - Liv Shaw LPN - 10/20/2023 1:14 PM EDT Called office notified fax will be coming for patient who needs appointment adriel, staff verified. Fax sent. Liv Shaw LPN October 20, 2023 1:15 PM * Telephone Encounter - Liv Shaw LPN - 10/20/2023 12:04 PM EDT Images from the original note were not included. Layne Manley Jr., MD P Wstr Neur [place] Nurse Please help pt schdule follow up with Dr. Aniyah MOREL. Please send copy of Zio monitor. documented in this encounterLakehealth Beachwood Medical Center09-13-2024 Telephone encounter Note * Telephone Encounter - Liv Shaw LPN - 10/20/2023 12:04 PM EDT Images from the original note were not included. Layne Manley Jr., MD P Wstr Neur Sindhu Nurse Please help pt schdule follow up with Dr. Aniyah MOREL. Please send copy of Zio monitor. [facility]09-13-2024 NoteHNO ID: [id number] Author: LAYNE MANLEY JR, MD Service: ? [...] rare (<1.0%). Isolated VEs were occasional (2.0%, 99831), VE Couplets were rare (<1.0%, 70), and no VE Triplets were present. Ventricular Bigeminy and Trigeminy were present. Pt has also seen Dr. Alfredo Hart of [facility] and I have discussed plan with [...] stopping Plavix. Plan: -I will contact his MEDICAL RECORD LIBRARIANS TEACHER that sees him through the community care network via [facility] to update her on medication recommendations (Dorinda White, AGATA [phone] -Rx apixaban 5 mg BID. -Stop Plavix. [...] working about 2-3 hours per day at [employer]. No family history neuro disorders. Pt denies falls. Handwriting getting smaller. REVIEW OF SYSTEMS GENERAL:No weight loss, malaise or fevers. HEENT:Negative for fr (more content not included)...[facility] 10-20-2023 History of Present illness Narrative* Layne [...] rare (<1.0%). Isolated VEs were occasional (2.0%, 61227), VE Coupl ets were rare (<1.0%, 70), and no VE Triplets were present. Ventricular Bigeminy and Trigeminy were present. Pt has also seen Dr. Alfredo Hart of [facility] and I have discussed plan with [...] stopping Plavix. Plan: -I will contact his MEDICAL RECORD LIBRARIANS TEACHER that sees him through the community care network via [facility] to update her on medication recommendations (Dorinda White, MEDICAL RECORD LIBRARIANS TEACHER [phone] -Rx apixaban 5 mg BID. -Stop Plavix. [...] working about 2-3 hours per day at [employer]. No family history neuro disorders. Pt denies [...] 1 tablet by mouth once daily. Ipratropium Frankenmuth (ATROVENT) 21 mcg (0.03 %) nasal spray Use 1 Bude in the nose three times a day [...] like pt to follow up with his color printer operator Dr. Dill to determine if further workupnecessary. [...] to suggest vascular cause. D/w pt and career professional dx of PD, physiology, testing, treatment and [...] which included preparing to see the patient, [id number] patient care, completing clinical documentation, obtaining and/or reviewing separately obtained history, performing a medically appropriate examination, counseling and educating the pat ient/family/caregiver, ordering medications, tests, or procedures, and communicating results to thepatient/family/caregiver. documented in this encounterJay Ville [address]-27-2024 Telephone encounter Note * Telephone Encounter - Celina Baldwin LPN - 10/03/2023 4:06 PM EDT Pt has upcoming appt with [facility] on 10-20-23 Celina Baldwin LPN [facility]08-27-2024 Miscellaneous Notes* Telephone Encounter - Celina Baldwin LPN - 10/03/2023 4:06 PM EDT Pt has upcoming appt with [facility] on 10-20-23 Celina Baldwin LPN * Telephone Encounter - Haley [...] call placed no answer, brief message left. [facility] log[facility] 09/13/2023, message sent. Rand Johansen [...] pt. Layne Manley MD documented in this encounterLakehealth Beachwood Medical Center08-27-2024 Telephone encounter Note * Telephone Encounter - Lia Mercedes LISW - 10/03/2023 1:38 PM EDT Unfortunately since pt filled the script he is ineligible for the co-pay card. However, he could likely qualify for the patient assistance program through [employer]. I'll prepare the application and contact Dorinda and patient to discuss. GLENN Adkins [facility]08-27-2024 Miscellaneous Notes* Telephone Encounter - Lia Mercedes LISW - 10/03/2023 1:38 PM EDT Unfortunately since pt filled the script he is ineligible for the co-pay card. However, he could likely qualify for the patient assistance program through [employer]. I'll prepare the application and contact Dorinda [...] that to Dorinda. However pt went to [facility], was $500, he did pick it up and pay for it but will not be able to do that every month. Will ask our social insurance analyst first if there is a Copay card he can utilize. Dr Hart, is pt to follow up here or resume f/u with your recommendation to PCP. Haydee Kelley LPN * Telephone Encounter - Masha Pichardo - 10/03/2023 11:45 AM EDT Please call Dorinda [phone]. She has questions regarding plavix and eliquis. documented in this encounterLakehealth Beachwood Medical Center08-27-2024 Telephone encounter Note * Telephone Encounter - Haydee Kelley LPN - 10/03/2023 12:55 PM EDT Dorinda from [facility] is calling. Asking if pt is to stop Plavix as pt was started on Eliquis. Per OV note -Rx apixaban 5 mg BID. -Stop Plavix. -Okay to resume ASA for history of PVD (suggested by SYLVIE 12/2021). Relayed that to Dorinda. However pt went to [facility], was $500, he did pick it up and pay for it but will not be able to do that every month. Will ask our social insurance analyst first if there is a Copay card he can utilize. Dr Hart, is pt to follow up here or resume f/u with your recommendation to PCP. Haydee Kelley LPN [facility]08-27-2024 Telephone encounter Note* Telephone Encounter - Masha Pichardo - 10/03/2023 11:45 AM EDT Please call Dorinda [phone]. She has questions regarding plavix and eliquis. [facility] Work Phone: 1(267) 374-676108-19-2024 NoteHNO ID: [id number] Author: EDITH HART, DO Service: ? 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 He has underlying history of hypertension, diabetes mellitus, and diastolic heart failure. He was admitted to 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 He was diagnosed with left MCA infarct with petechial hemorrhage, transferred to [facility]. He also had left M1 occlusion. [...] arteries bilaterally. He was admitted again to [facility] 11/22/2022 for complaint of slurred speech [...] on 11/24/2022. Most recent MRI brain from [facility] 11/22/2022 demonstrated acute infarct in the right [...] since childhood. Lives in [place]-story house in [place]. Has steps to the basement. Has a friend close by who helps out. Not driving. Hematologic problem(s): Interim history: No complaints today. No neurologic change. PAST MEDICAL HISTORY No date: Diabetes mellit (more content not included)...[facility]08-19-2024 History of Present illness Narrative* Edith Hart, - 09/25/2023 3:41 PM EDT Hematologic problem(s): 1) H/O RLE DVT. 2) IVC filter 2021. 3) Multiple strokes in differing vascular territories. 4) Elevated factor VIII:C; normal CRP. HPI: The patient is a 72-year-old male with a past medical history as outlined below. 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 He has underlying history of hypertension, diabetes mellitus, and diastolic heart failure. He was admitted to 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 He was diagnosed with left MCA infarct with petechial hemorrhage, transferred to [facility]. He also had left M1 occlusion. [...] vertebralarteries bilaterally. He was admitted again to [facility] 11/22/2022 for complaint of slurred speech [...] on 11/24/2022. Most recent MRI brain from [facility] 11/22/2022 demonstrated acute infarct in the right [...] since childhood. Lives in one-story house in [place]. Has steps to the basement. Has a [...] Shortness of breath No date: Stroke (cerebrum) ([facility]) PAST SURGICAL HISTORY 03/2021: IVC FILTER PLACEMENT 03/2021: PAST SURGICAL HISTORY OF Comment: Cerebral angiography and left MCA thrombectomy ALLERGIES No Known Allergies Current Outpatient Medications Medication Sig multivitamin tablet Take 1 tablet by mouth once daily. Ipratropium Frankenmuth (ATROVENT) 21 mcg (0.03 %) nasal spray Use 1 Bude in the nose three times a day [...] No jaundice or rash. No petechiae. NEUROLOGIC: pipe roller II-XII are grossly intact. ASSESSMENT/PLAN: (I63.9) Recurrent [...] stopping Plavix. Plan: -I will contact his MEDICAL RECORD LIBRARIANS TEACHER that sees him through the community care network via [facility] to update her on medication recommendations (Dorinda WhiteAGATA [phone] -Rx apixaban 5 mg BID. -Stop Plavix. [...] which included preparing to see the patient, [id number]-js-dkei patient care, completing clinical documentation, obtaining and/or reviewing separately obtained history, performing a medically appropriate examination, counseling and educating the pat ient/family/caregiver, ordering medications, tests, or procedures, and communicating results to thepatient/family/caregiver. Edith Hart DO documented in this encounterLakehealth [facility]wood [facility] Center08-14-2024 Telephone encounter Note * Telephone Encounter - Haley Pratt OCCA - 09/20/2023 8:57 AM EDT Multiple attempts to reach patient by phone and MC message with no success. Sent letter to patientshome address to call office for below results and recommendations. TIFFANY Noland [facility]08-13-2024 Telephone encounter Note* Telephone Encounter - Celina Baldwin LPN - 09/19/2023 1:38 PM EDT TC to pt with no answer. Left VM to return call. Celina Baldwin LPN [facility]08-08-2024 Telephone encounter Note* Telephone Encounter - Rand Johansen LPN - 09/14/2023 6:32 PM EDT Phone call placed no answer, brief message left. [employer] logon 09/13/2023, message sent. Rand Johansen LPN [facility]08-08-2024 Telephone encounter Note* Telephone Encounter - Rand Johansen LPN - 09/14/2023 6:31 PM EDT ----- Message from Layne Manley Jr., MD sent at 09/14/2023 4:26 PM EDT ----- Pt reportedly had Vtach on monitor - no afib - would like pt to see cardiology. If pt not actively following with cardiology we can make appt. Please confirm with pt. Layne Manley MD [facility]08-07-2024 Telephone encounter Note* Telephone Encounter - Masha Pichardo - 09/13/2023 8:30 AM EDT Scheduled with patient [facility] Work Phone: 1(122) 347-195508-07-2024 Miscellaneous Notes* Telephone Encounter - Masha Pichardo - 09/13/2023 8:30 AM EDT Scheduled with patient * Telephone Encounter - Edith Hart DO - 09/12/2023 5:26 PM EDT I would like him to have repeat lab work filed under this encounter then office visit with me sometime in the next couple weeks. Edith Hart DO documented in this encounterLakehealth [facility]wood [facility] Center08-06-2024 Telephone encounter Note * Telephone Encounter - Edith Hart DO - 09/12/2023 5:26 PM EDT I would like him to have repeat lab work filed under this encounter then office visit with me sometime in the next couple weeks. Edith Hart DO [facility]08-05-2024 Telephone encounter Note* Telephone Encounter - Haley Pratt OCCA - 09/11/2023 1:18 PM EDT Images from the original note were not included. Estefani Dill APRN.[employer] You6 days ago Do not see any [...] possible to assist with hx. TIFFANY Noland [facility]08-05-2024 Miscellaneous Notes* Telephone Encounter - Haley Pratt OCCA - 09/11/2023 1:18 PM EDT Images from the original note were not included. Estfeani Dill APRN.BONE CHAR PULLER You6 days ago Do not see any [...] advise. Armida Smith LPN documented in this encounterLakehealth [facility]wood [facility] Center07-30-2024 Telephone encounter Note * Telephone Encounter - Haley Pratt OCCA - 09/05/2023 2:06 PM EDT Patient had MRA completed 08/20. Of note patient has follow up 10/19. TIFFANY Noland [facility]07-30-2024 Telephone encounter Note* Telephone Encounter - Armida Smith LPN - 09/05/2023 2:01 PM EDT Pt is calling to ask if he can ride his motorcycle again. Pt reports he had some testing done and it was supposed to show if he can ride his motorcycle again or not. Please review and advise. Armida Smith LPN [facility]07-15-2024 History of Present illness Narrative* Dania Koenig, RT(R) - 08/21/2023 2:20 PM EDT Radiology [...] PATIENT PRESENTS WITH AN IMPLANTABLE OR ATTACHED TOLL MECHANIC: No RADIOLOGY DEPARTMENT: MR; Exam(s) Completed: Head: [place] MRA Neck: Carotids MRA, bilateral PERIPHERAL IV DATA: Not applicable SIGNED BY: RT Kymberly(Zeus) August 21, 2023 2:29 PM documented in this encounterLakehealth Beachwood [facility] Center07-11-2024 Telephone encounter Note * Telephone Encounter - Rand Johansen LPN - 08/17/2023 10:26 AM EDT New Zio Rx ordered by Dr. Manley on 08/17/2023 at 9:00 AM, no further action. Rand Johansen LPN [facility]07-11-2024 Miscellaneous Notes* Telephone Encounter - Rand Johansen LPN - 08/17/2023 10:26 AM EDT New Zio Rx ordered by Dr. Manley on 08/17/2023 at 9:00 AM, no further action. Rand Johansen LPN * Telephone Encounter - Zhanna Wynne MA - 08/17/2023 8:23 AM EDT Received notification from Mydish (vessel traffic officer for Zio device): We have found that [...] needs done once order is signed in [facility], it will automatically generate on the vessel traffic officer end to send new device to patient.) Zhanna Wynne MA documented in this encounterLakehealth Beachwood [facility] Center07-11-2024 Telephone encounter Note * Telephone Encounter - Zhanna Wynne MA - 08/17/2023 8:23 AM EDT Received notification from Mydish (vessel traffic officer for Zio device): We have found that [...] needs done once order is signed in [facility], it will automatically generate on the vessel traffic officer end to send new device to patient.) Zhanna Wynne MA [facility]07-01-2024 Telephone encounter Note* Telephone Encounter - Nano Martines - 08/07/2023 2:50 PM EDT Spoke with patient and scheduled. Nano Martines [facility]07-01-2024 Miscellaneous Notes* Telephone Encounter - Nano Martines - 08/07/2023 2:50 PM EDT Spoke with patient and scheduled. Nano Martines * Telephone Encounter - Fallon Amaya LPN - 08/07/2023 12:41 PM EDT PSS- This may have to be scheduled with lab and a wallpaper inspector and shipper in the morning. Please contact patient toschedule. Fallon Amaya LPN * Telephone Encounter - Edith Hart DO - 08/07/2023 12:30 PM EDT Please advise him to come back for lab work ordered under today's office visit whenever he has a chance. Edith Hart DO documented in this encounterLakehealth [facility]wood [facility] Center07-01-2024 Telephone encounter Note * Telephone Encounter - Fallon Amaya LPN - 08/07/2023 12:41 PM EDT PSS- This may have to be scheduled with lab and a wallpaper inspector and shipper in the morning. Please contact patient toschedule. Fallon Amaya LPN [facility]07-01-2024 Telephone encounter Note* Telephone Encounter - Edith Hart DO - 08/07/2023 12:30 PM EDT Please advise him to come back for lab work ordered under today's office visit whenever he has a chance. 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 He has underlying history of hypertension, diabetes mellitus, and diastolic heart failure. He was admitted to 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 He was diagnosed with left MCA infarct with petechial hemorrhage, transferred to [facility]. He also had left M1 occlusion. [...] vertebralarteries bilaterally. He was admitted again to [facility] 11/22/2022 for complaint of slurred speech [...] on 11/24/2022. Most recent MRI brain from [facility] 11/22/2022 demonstrated acute infarct in the right [...] since childhood. Lives in one-story house in [place]. Has steps to the basement. Has a [...] 1 tablet by mouth once daily. Ipratropium Frank[place]uth (ATROVENT) 21 mcg (0.03 %) nasal spray Use 1 Bude in the nose three times a day [...] No jaundice or rash. No petechiae. NEUROLOGIC: pipe roller II-XII are grossly intact. ASSESSMENT/PLAN: (I63.9) Recurrent [...] which included preparing to see the patient, ucmh-zz-wole patient care, completing clinical documentation, obtaining and/or reviewing separately obtained history, performing a medically appropriate examination, counseling and educating the pat ient/family/caregiver, ordering medications, tests, or procedures, communicating with other HCPs (not separately reported), and communicating results to the patient/family/caregiver. Edith Hart DO documented in this encounterLakehealth Beachwood [facility] Center06-18-2024 Telephone encounter Note * Telephone Encounter - Magda Seymour RN - 07/25/2023 8:47 AM EDT Dorinda with [facility] calls to request a copy of OV note from 07/17/2023 to assist patient with education. Faxed to [phone] per request. Magda Seymour RN [facility]06-18-2024 Miscellaneous Notes* Telephone Encounter - Magda Seymour RN - 07/25/2023 8:47 AM EDT Dorinda with [facility] calls to request a copy of OV note from 07/17/2023 to assist patient with education. Faxed to [phone] per request. Magda Seymour RN documented in this encounterLakehealth [facility]wood Medical Center06-11-2024 Telephone encounter Note * Telephone Encounter - Teena Perez - 07/18/2023 2:37 PM EDT Called patient and scheduled first available. Teena Monsalve [facility]06-11-2024 Miscellaneous Notes* Telephone Encounter - Teena Perez [...] disorder Insurance: Medicare A and B/ [facility] AARP Supplement Referred by: Layne Manley Jr Please review and advise documented in this encounterLakehealth Beachwood Medical Center06-11-2024 Telephone encounter Note * Telephone Encounter - Edith Hart DO - 07/18/2023 1:22 PM EDT I don't think Dr. Manley is aware that Dr. Ron is here. Next new patient appointment time with either me or Dr. Ron. Edith Hart DO [facility] Work Phone: 1(139) 218-255006-11-2024 Telephone encounter Note* Telephone Encounter - Cheryle Bates - 07/18/2023 9:06 AM EDT Patient is being referred to Dr. Hart DX: eval for possible hypercoag disorder Insurance: Medicare A and B/ [facility] AARP Supplement Referred by: Layne Manley Jr Please review and advise [facility]06-10-[facility]24 History of Present illness Narrative* Layne Manley [...] in November, did look at records at [facility] at that time. These records are [...] Per record: On 11-22-2022, patient presented to [facility] emergency department with power of workers compensation attorney for concerns of worsening weakness starting [...] which included preparing to see the patient, [id number] patient care, completing clinical documentation, obtaining and/or reviewing separately obtained history, performing a medically appropriate examination, counseling and educating the pat ient/family/caregiver, ordering medications, tests, or procedures, and communicating results to thepatient/family/caregiver. * Rand Johansen LPN - 07/17/2023 1:57 PM EDT documented in this encounterLakehealth Beachwood Medical Center04-12-2024 NoteHNO ID: [id number] Author: CATHLEEN GOEL OT/Marixa Service: ? Author [...] the drive started and ended. He drove [employer] for the assessment. 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 This therapist did call his sister, Renate, who is his DPOA after the session to share results with her. Billing: Total Treatment Time Minutes (timed/untimed) 60 Drivers Follow Up per 60 min (54573): 1:1 time 60 min Total time: 60 minutes Cathleen Goel, OT/L, CDRS, LDI Certified Nuclear Logging Engineer Home Appraiser Episode Visit Count: 2 Therapist That Will [...] Date: 05/04/23 to 05/19/2023 and treatment included: Nuclear Logging Engineer rehab evaluation. Goals for Episode of Care created on 05/04/23 through 06/04/23 1.Patient will complete clinical training and/or testing at [place] level in preparation for returning to driving. 2.Patient will complete functional mobility task with good safety awareness during behind the wheel assessment PROMIS Scales 05/04/2023 Higher is Better Phys Func - Score 76 (within normal limits) Phys Func - Percentile 100 Self-Eff Symptom - Score 27 (Very Low) Self-Eff Symptom - Percentile 1 T-scores: mean of gene (more content not included)...[facility] 05-19-2023 History of Present illness Narrative* [...] the drive started and ended. He drove 2011 [employer] for the assessment. Route was discussed prior to thedrive and he indicated he would drive into [place] then onto the highway prior to going [...] this report indicates the ability of the local company intermodal truck driver to operate a motor vehicle [...] DRIVING SHOULD BE DONE WITH OTHER LICENSED LAYER OUT WITH HIM TO SHARE THE DRIVING GIVEN HIS MEDICAL HISTORY; DO NOT DRIVE WHEN NOT FEELING WELL; AVOID DRIVING WHEN EXTREME WEATHER CONDITIONS. This therapist did call his sister, Renate, who is his DPOA after the session to share results with her. Billing: Total Treatment Time Minutes (timed/untimed) 60 Drivers Follow Up per 60 min (78470): 1:1 time 60 min Total time: 60 minutes Cathleen Goel, OT/L, CDRS, LDI Certified Nuclear Logging Engineer Home Appraiser Episode Visit Count: 2 Therapist That Will [...] Date: 05/04/23 to 05/19/2023 and treatment included: Nuclear Logging Engineer rehab evaluation. Goals for Episode of Care created on 05/04/23 through 06/04/23 1.Patient will complete clinical training and/or testing at [place] level in preparation for returning to driving. [...] BIBI Louis, CDRS, LDI documented in this encounterLakehealth [facility]wood Medical Center04-04-2024 Miscellaneous Notes* Telephone Encounter - Cathleen Goel OT/L - 05/11/2023 1:09 PM EDT This therapist indicated that she could contact his sister after the behind the wheel assessment toindicate recommendations. documented in this encounterLakehealth Beachwood Medical Center03-28-2024 NoteHNO ID: [id number] Author: CATHLEEN GOEL OT/L Service: ? Author [...] he is still working 2-3 hours/day at [employer] which is just behind his apartment while [...] for some things while has PO and [employer] close by. Functional Limitations: nothing Prior Level of Function: Required assistance Home Environment Patient Lives With: Self/Alone Assistance Available: None Home Type: Apt/Condo Entry To Home: Stairs Number Of Stairs Into Home: 4 Laundry: in basement Transportation: [employer] 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 Recreation / Current Exercise: some walking to [employer] and PO but otherwise no exercise Hobbies / Interests: watching TV, will look things up on his computer, used to be active in sports card collecting but not much now Home Environment Patient Lives With: Self/Alone Assistance Available: None Home Type: Apt/Condo Entry To Home: Stairs Number Of Stairs Into Home: 4 Laundry: in basement Transportation: [facility] (2023 [facility]) Pain Level: 0 Post Treatment Pain Level: [...] to the stroke that occurred 11/28 State: [place] License/Permit #: [id number] Expires: 11/26/26 Restrictions: none 5 Yr. Violation [...] Driving: Right UE: Sufficient Left UE: Sufficient Habilitation Assistant: Sufficient Right LE: Sufficient Left LE: Sufficient Sitting Balance: Sufficient Head / Neck: Sufficient Ambulation: Sufficient Transfers: Sufficient Loading of Device: NA ASSESSMENT OF SENSORIMOTOR FUNCTION: Compatible with Driving VISION SCREENING: Vision Vision Deficits: Wears corrective lenses Corrective lenses: reading glasses on while he has last formal eye exam about 3 weeks ago Corrective Lenses: None (more content not included)...[facility]03-28-2024 History of Present illness Narrative* Cathleen Goel, [...] he is still working 2-3 hours/day at [employer] which is just behind his apartment while [...] Into Home: 4 Laundry: in basement Transportation: [facility] (2023 [employer]) Patient Goals: to return to driving on public roads Intake Information: Prescription present Previous Treatment: Speech Therapy , Acute Hospital , Acute Rehab , SNF , Home Therapy , Nuclear Logging Engineer Assessment Falls Interview: No positive findings with falls interview Relevant History Past Relevant Medical Conditions: Cerebral Vascular Accident, Diabetes, Hypertension Highest Level of Education: High School Right or Left Handed: Right 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 Recreation / Current Exercise: some walking to [employer] and [employer] but otherwise no exercise Hobbies / Interests: watching TV, will look things up on his computer, used to be active in sports card collecting but not much now Home Environment Patient Lives With: Self/Alone Assistance Available: None Home Type: Apt/Condo Entry To Home: Stairs Number Of Stairs Into Home: 4 Laundry: in basement Transportation: [facility] (2023 [employer]) Pain Level: 0 Post Treatment Pain Level: [...] to the stroke that occurred 11/28 State: [place] License/Permit #: [id number] Expires: 11/26/26 Restrictions: none 5 Yr. Violation [...] Driving: Right UE: Sufficient Left UE: Sufficient Habilitation Assistant: Sufficient Right LE: Sufficient Left LE: Sufficient [...] impairment 20-28; Severe impairment [email or web address] Visual Scanning/Attention: [place] Making Part B (sec): 318 sec (required [...] which were also present last session Lenard Nuclear Logging Engineer Simulator: Simple Brake Reaction Time: Average Distance: 55.6 feet (Normal = 60 feet) R foot only pedal operation method Education: Education Learning Preferences: Demonstration, Explanation Barriers: Communication Deficit Learning/educational needs: Safety, Plan of Care Education Provided: Yes, see treatment interventions for education provided Education Provided To: Patient Education Mode/Type: Explanation/Discussion, Demonstration Response to Education/Teach Back: States/Identifies TREATMENT: Evaluation Self-Mcc Management: 1: refer to documentation in this [...] this report indicates the ability of the local company intermodal truck driver to operate a motor vehicle [...] Complete Eye Exam: as indicated by eyeglass lens cutter Prognosis: Good Good due to: current objective clinical presentation, good overall health status, acuteness of condition Goals for Episode of Care created on 05/04/23 through 06/04/23 1.Patient will complete clinical training and/or testing at [place] level in preparation for returning to driving. 2.Patient will complete functional mobility task with good safety awareness during behind the wheelassessment. Planned Interventions, Frequency, and Duration: Current Frequency: 1x/week Duration: 1 week Total Number of Visits Planned: 1 Patient to be see for Nuclear Logging Engineer rehab evaluation, Patient/Family/Caregiver Education PLAN FOR NEXT VISIT: completion of the behind the wheel session Patient demonstrates good understanding of plan of care and treatment. The above goals and plan of care were discussed and agreed upon by patient. Billing: Total Treatment Time Minutes (timed/untimed) 120 Evaluation - Moderate Complexity (84091) Self Care / Home Management (26213): 1:1 time: 30 minutes (2 units: 23-37 mins) Community /Work Re-integration (97056): 1:1 time: 30 minutes (2 units: 23-37 mins) Total time: 120 minutes Cathleen Goel OT/Marixa, CDRS, LDI Certified Nuclear Logging Engineer Home Appraiser documented in this encounterLakehealth Beachwood Medical Center03-25-2024 Miscellaneous Notes* Telephone Encounter - Renuka York [...] accordingly. Renuka York LPN documented in this encounterLakehealth Beachwood Medical Center03-14-2024 Miscellaneous Notes* Addendum Note - Fallon Steiner PA-C - 04/20/2023 10:50 AM EDTAddended by: FALLON STEINER on: 04/20/2023 10:50 AM Modules accepted: Orders * Telephone Encounter - Fallon Steiner PA-C - 04/20/2023 10:50 AM EDT Will send in referral to OT for driving evaluation. * Telephone Encounter - Rand Johansen LPN - 04/20/2023 10:41 AM EDT Phone call placed to [facility] transportation to coordinate patients ride for scheduled OV 07/17/2023 spoke to Rosa, transportation os scheduled, no further action. Rand Johansen LPN * Telephone Encounter - Rand Johansen LPN - 04/20/2023 10:36 AM EDT Phone call placed to [facility], Dr. Dill spoke to Mary [...] and just needs scheduled at [facility]. Please advise Dorinda at [phone] documented in this encounterLakehealth Beachwood Medical Center03-12-2024 Instructions* Patient Instructions* Fallon Steiner PA-C - [...] months with Dr. Manley documented in this encounterLakehealth Beachwood Medical Center03-12-2024 History of Present illness Narrative* Fallon Steiner PA-C - 04/18/2023 9:53 AM EDT [...] on 11/22/22. On 11-22-2022, patient presented to [facility] emergency department with power of workers compensation attorney for concerns of worsening weakness starting [...] her. Does report he did see his color printer operator in March and was able to pull up his appointments on his MyChart on his phone. However, states that all he said was to follow-up in a year and that he was fine. Denies any weakness, denies any falls. Notes he lives by himself in [place] but he has people visit him. Was [...] Motor: Normal tone, bulk. Slight decreased in cyanide case hardener strength on left hand, decreased finger abduction [...] in November, did look at records at [facility] at that time. These records are [...] which included preparing to see the patient, [id number] patient care, completing clinical documentation, obtaining and/or reviewing separately obtained history, performing a medically appropriate examination, counseling and educating the pat ient/family/caregiver, and ordering medications, tests, or procedures. This document has been created with the use of voice recognition technology. It may contain inaccuracies: (e.g. misspellings, inaccurate syntax or word sense) that have escaped review. documented in this encounterLakehealth Beachwood Medical Center10-19-2023 Discharge summary Author Jerod aCvazosMetro[facility] November 24, 2022 11:21am Note Date/Time November 23, 2022 1 0:33am [facility] Medical Records Department [address] [place] [address] Instructions for Home/Discharge Instructions 11/23/22 1032 MR#: [id number] Acct: [id number] Name: GUSTAVO PATTON Rep #:[id number] : 1950 71 From: Jerod askew DO PCP: Madhvai Chaudhry DO Status:ADM I N Discharge Instructions [...] DO CC: Madhavi Chaudhry DO ~ Signed [facility] Work Phone: 1(125) 511-538910-18-2023 Progress note Author Jerod Cavazos [facility] November 23, 2022 3:00pm Note Date/Time November 23, 2022 2 :55pm [facility] Medical Records Department [address] [place] [address] Progress Note - Hospitalist 11/23/22 1442 MR#: [id number] Acct: [id number] Name: GUSTAVO PATTON Rep #:[id number] : 1950 71 From: Jerod askew DO PCP: Madhavi Chaudhry DO Status:ADM I NO Location: ICU CVICU20 1-1 Reason for Visit Reason for Visit: Diagnoses [...] and mild developmental delay who presented to [facility] ED on 11/22/2022 with new onset [...] finances, etc. Per neurology office note from [facility] from 12/2021, patient apparently hadno [...] 35 minutes. Charges/Coding Visit Charges Inpatient E&M: 83630 Subs Hosp L2 11/23/22 1500 <Electronically signed by Jerod Cavazos DO> Cosigner Signature (if applicable): CC: ~ Signed [facility] Work Phone: 1(925) 315-500210-17-2023 Progress note Author Gordon Mccollum [facility] November 22, 2022 9:21pm Note Date/Time November 22, 2022 9 :21pm [facility] Medical Records Department [address] [facility] [place] [address] Progress Note - Hospitalist 11/22/222116 MR#: [id number] Acct: [id number] Name: GUSTAVO PATTON Rep #:[id number] : [...] Cosigner Signature (if applicable): CC: ~ Signed [facility] Work Phone: 1(806) 726-470810-17-2023 History and physical note Author Jerod Cavazos [facility] November 22, 2022 6:59pm Note Date/Time November 22, 2022 1 2:21pm [facility] Medical Records Department [address] [place] [address] H&P Exam - Hospitalist 11/22/22 1221 MR#: [id number] Acct: [id number] Name: GUSTAVO PATTON Rep #:[id number] : 1950 71 From: Jerod askew DO PCP: Madhavi Chaudhry DO Status:ADM I NO Location: ICU CVICU20 1-1 HPI - General General Date of Admission: [...] and mild developmental delay who presented to [facility] ED on 11/22/2022 with new onset [...] at home. States his daughter lives in [place] and he has friends that live in the area that can helphim with certain things as needed. States has been taking all home medications as prescribed recently. No other acute concerns currently. Patient notably had a prolonged hospitalization for a CVA back in March 2021. Obtained most of this history from his most recent neurology office note from 12/2021 in [facility] (follows with [facility] neurology). Patient presented to [facility] in [place] in late March 2021 with right-sided weakness [...] DVT at that time. Was transferred to [facility] apparently for neurosurgical evaluation and IVC filter [...] no ST changes. Chest x-ray was unremarkable. [facility] Medical History Diabetes Stroke/cerebrovascular accident Home [...] 70.3 H, Lymph % (Auto) 18.5 L, Stone % (Auto) 9.3, Eos % (Auto) 1.1, [...] Signed: Houston Paz MD at 11:06 EDT Reading Location ID and State: [facility] / [place] , Service support , Assessment & Plan Assessment/Plan (1) Dysarthria: PLAN: Plan Patient is a 71-year-old male with history of left MCA CVA s/p tenecteplase withhemorrhagic conversion and thrombectomy in 03/2021 with no residual deficits, DVTof RLE s/p IVC filter placement, history of dysphagia, HFrEF, type 2 diabetes and mild developmental delay who presented to [facility] ED on 11/22/2022 with new onset [...] finances, etc. Per neurology office note from [facility] from 12/2021, patient apparently hadno [...] 55 minutes. Charges/Coding Visit Charges Inpatient E&M: 01824 Init Hosp L2 11/22/22 2433 <Electronically signed by Jerod Cavazos DO> Cosigner Signature (if applicable): CC: Dr. Jerod Cavazos DO; Madhavi Chaudhry DO~ Signed [facility] Work Phone: 1(651) 961-754310-17-2023 Discharge summary Author Cristhian Carlos [facility] November 22, 2022 3:27pm Note Date/Time November 22, 2022 1 0:40am [facility] Medical Records Department [address] [place] [address] Emergency Department Summary 11/22/22 MR#: [id number] Acct: [id number] Name: GUSTAVO PATTON Rep #:[id number] : 1950 71 From: Cristhian Taylor PCP: Madhavi Chaudhry DO Status:ADM I NO Location: ICU CVICU20 1-1 HPI History of Present Illness Chief Complaint: Weakness Informant: patient and other (DPOA friend) Narrative Narrative: Presents here with his friend who is DPOA stating there is 2 other individuals that are power of workers compensation attorney his daughter is in [place]. Concerns for increasing weakness started yesterday. States [...] was coming out of his right side. [facility] Medical History Diabetes Stroke/cerebrovascular accident Home Medications [...] droop. In addition did have weakness left cyanide case hardener strength compared to the right side. Sensorium [...] clinician: Hospitalist This note was generated with Nutzvieh24ation software. It may contain incorrectwords, spelling, and [...] 70.3 H Lymph % (Auto) 18.5 L Stone % (Auto) 9.3 Eos % (Auto) 1.1 [...] (cerebrovascular accident) Disposition Disposition: Acute Care Hospital [facility] Discharge Date/Time: 11/22/22 12:54 What to do if you have Problems For any increased pain, shortness of breath, bleeding, nausea or vomiting, chestpain, or any unexpected problems, contact your Primary Care Provider. Call [facility] ([phone]) or report to the closest Emergency Room. Call 911 if necessary. 11/22/22 1527 <Electronically signed by Cristhian Taylor> Cosigner Signature (if applicable): CC: Madhavi Chaudhry DO ~ Signed [facility] Work Phone: 1(925) 735-961808-03-2023 NoteHNO ID: [id number] Author: Cathleen Goel OT/L Service: ? Author [...] or scheduled additional follow-up appointments. Cathleen Goel, ADONIS/[facility]06-02-2023 Miscellaneous Notes* Telephone Encounter - Celina [...] accordingly. Celina Marshall LPN documented in this encounterLakehealth [facility] Center04-21-2023 Miscellaneous Notes* Telephone Encounter - Celina Marshall [...] accordingly. Celina Marshall LPN documented in this encounterLakehealth Beachwood Medical Center04-14-2023 Miscellaneous Notes* Telephone Encounter - Liliana Batista [...] appointment. Celina Marshall LPN documented in this encounterLakehealth Beachwood Medical Center04-14-2023 Miscellaneous Notes* Telephone Encounter - Celina Marshall [...] accordingly. Celina Marshall LPN documented in this encounterLakehealth Beachwood Medical Center02-28-2023 Miscellaneous Notes* Telephone Encounter - Kely Charles - 04/05/2022 4:45 PM EST Never received the letter. * Telephone Encounter - Kely Charles - 03/31/2022 3:24 PM EST Dorinda from [facility] calling requesting the provider to review a letter. The letter isn't in the patient's chart. Requested the letter be faxed to the office. We haven't received the letter. Dorinda's phone# [phone] documented in this encounterLakehealth Beachwood Medical Center02-09-2023 Discharge summary Author Stephani Vila [facility] June 09, 2022 2:40pm Note Date/Time March 17, 2022 1 0:30am [facility] Physical [facility] [address] [place] [address] [address] [place] [address] / REHABILITATION SERVICES DISCHARGE SUMMARY MR#: [id number] Acct: [id number] Name: GUSTAVO PATTON Rep #: [id number] : 1950 71 From: Cert. LULA DurantT, OCS Referring Dr.: Dr. Layne Manley MD [...] please feel free to call me at [phone]. Thank you for the referral of thispatient. Sincerely, Stephani Vila PT, Cert MDT, OCS Balance/Gait/Functional tests - Balance/Special Test Scores Functional Gait Assessment Score: 30 % Disability: 0 CATSIB Score (Max score 120 seconds): 100 Lower Extremity Functional Score: 62 30 Second Chair Rise Test Seconds: 12 <Electronically signed by Stephani Vila PT, Cert. MDT, OCS> 06/09/22 1440 CC: Dr. Edith Fraser MD; Dr. Layne Manley MD ~ CLAUDIA Signed [facility] Work Phone: 1(804) 243-839801-11-2023 History of Present illness Narrative* Cathleen Goel, OT/L - 02/16/2022 3:42 PM EST Episode Visit Count: 2 Therapist That Will Accept/Oversee The Plan Of Care: Emery Goel Start of Care Date: 02/11/22 Onset Date: 04/01/21 (stroke occurred while 1 week in acute hospital followed by 2-3 weeks at [facility] [place] prior to returning home; [facility] [place]; now has nurse who comes weekly to [...] started and ended from. 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 ENVIRONMENT: Location: Residential, Urban, Rural, Parking Lot, [...] very familiar with the roadways driving into [place] where he does much of his errand [...] this report indicates the ability of the local company intermodal truck driver to operate a motor vehicle [...] (>3 HOURS) CURRENTLY UNLESS HAS OTHER LICENSED LAYER OUT WITH HIM TO SHARE THE DRIVING; DO [...] minutes Drivers Follow Up per 60 min (43179): 1:1 time 60 min Total time: 60 minutes BIBI Louis, CDRS, CDI Certified Nuclear Logging Engineer Home Appraiser documented in this encounterLakehealth Beachwood Medical Center01-06-2023 History of Present illness Narrative* BIBI Yo - 02/11/2022 3:48 PM EST Episode Visit Count: 1 Therapist That Will Accept/Oversee The Plan Of Care: Emery Goel Start of Care Date: 02/11/22 Onset Date: 04/01/21 (stroke occurred while 1 week in acute hospital followed by 2-3 weeks at [facility] the [facility] [place] prior to returning home; had outpatient [facility] [...] ongoing speech deficits resulting. 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 He has 3 sisters while main support lives in [place] and checks in often while he has one sister in [place] who he sees occasionally. 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 Violation HX: none 5 Yr. MVA HX: none Handicap Parking Placard: NO 1. Gustavo Patton self report indicates an awareness of: some ongoing communication deficits. 2. Gustavo Mirlande Farrukh expressed confidence regarding driving at night/decreased [...] Driving: Right UE: Sufficient Left UE: Sufficient Habilitation Assistant: Sufficient Right LE: Sufficient Left LE: Sufficient [...] VISUAL FUNCTION: functional with regards to the [place] BMV requirements however some concerns related to [...] receptive and expressive language deficits Visual Scanning/Attention: [place] Making Part B (sec): 183 sec 50th percentile norm for age group: 60-69; Part A: 48 seconds, Part B: 119 seconds Heidy Clock Drawing Test: Gustavo Patton correctly included 6/8 criteria for this test. 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 Patient will complete functional mobility task with good safety awareness during behind the wheel assessment. Patient will return to/continue independent driving with or without restrictions. Planned Interventions, Frequency, and Duration: Current Frequency: 1 visit Duration: 1 visit Total Number of Visits Planned: 1 Patient to be see for Nuclear Logging Engineer rehab evaluation PLAN FOR NEXT VISIT: completion of the behind the wheel session Patient demonstrates good understanding of plan of care and treatment. The above goals and plan of care were discussed and agreed upon by patient/family. Billing: Total Treatment Time Minutes (timed/untimed) 120 minutes Evaluation - Moderate Complexity (05936) Self Care / Home Management (60240): 1:1 time: 60 minutes (4 units: 53-67 mins) Total time: 120 minutes Cathleen Goel OT/Marixa, CDRS, CDI Certified Nuclear Logging Engineer Home Appraiser documented in this encounterLakehealth Beachwood Medical Center12-09-2022 Miscellaneous Notes* Telephone Encounter - Benita Johansen LPN - 01/14/2022 11:11 AM EST Zhanna with [facility] called and requested order for PT for pt be faxed to them FAX: [phone]. Identified pt with name and date of . Done. Benita Johansen LPN documented in this encounterLakehealth Beachwood Medical Center12-08-2022 NoteHNO ID: [id number] Author: Clarence Colin MD Service: ? Author Type: Physician Type: Progress Notes Filed: 01/13/2022 10:55 AM Note Text: Gustavo Patton is a 71 year old male presents for evaluation of DVT. He was actually referred to vascular [facility], which we discussed that I am not, but he would have to go to [place] or another [facility] hospital for vascular medicine. When talking [...] with more than 50% of the total xbgp-af-mboi time of the visit in counseling / coordination of care.[facility]12-08-2022 History of Present illness Narrative* Clarence Colin MD - 01/13/2022 10:30 AM EST Gustavo Patton is a 71 year old male presents for evaluation of DVT. He was actually referred to [facility], which we discussed that I am not, but he would have to go to [place] or another [facility] hospital for vascular medicine. When talking [...] with more than 50% of the total bzuj-et-ekvq time of the visit in counseling / coordination of care. documented in this encounterLakehealth Beachwood Medical Center11-30-2022 Miscellaneous Notes* Telephone Encounter - Meg Cedillo LPN - 01/05/2022 1:31 PM EST Dorinda from [facility] calling said she had asked for copy of last office visit and has never gotten it. printed visit from 12/17/2021 and faxed to [phone] as requested. documented in this encounterLakehealth Beachwood Medical Center11-30-2022 Miscellaneous Notes* Telephone Encounter - Layne Manley Jr., MD - 01/05/2022 12:58 PM EST ----- Message from Alcira Elias PT sent at 01/03/2022 3:53 PM EST ----- Regarding: FW: driving eval Hi Dr Manley, Can you please change the order to OT (instead of PT) for the driving eval as we have OT's doing these assessments within [facility]. We will help get him scheduled accordingly. Thanks so much, Alcira Elias PT ----- Message ----- From: RAMÓN Stratton/L Sent: 01/03/2022 1:18 PM EST To: Alcira Elias PT Subject: RE: driving eval I am doing well. Just been busy. Short of today where I have had 4 cancels. Miss you guys as well. As far as driving goes, Within the [facility] there is me in [place], Cathleen at [facility] in [place] and then there is up in the [facility] a couple of places. The order will need to be for OT. In fact I think wherever he goes it is only OTs doing driving. As far as scheduling, he just needs to call here at [phone] or [facility] at [phone]. Let me know if you have any more questions. Jesus ----- Message ----- From: Alcira Elias PT Sent: 01/03/2022 12:30 PM EST To: Gamaliel Regalado OTR/L Subject: driving eval Marty Lee, How's it going? Hope you're doing well. We miss you around here. Hey I have a quick question - I have a patient on my schedule next Monday who was referred to PT for driving eval. I see he lives in [place] so do you know if there would be anything closer for him? If not how does he get that scheduled with you? Do I need to have the Dr change the order to OT? ThanksAlcira documented in this encounterLakehealth Beachwood Medical Center11-29-2022 Miscellaneous Notes* Telephone Encounter - NATAN Noland [...] you, Layne Manley MD documented in this encounterLakehealth Beachwood Medical Center11-28-2022 History of Present illness Narrative* Layne Manley Jr., MD - 01/03/2022 1:18 PM EST Opened in error. documented in this encounterLakehealth Beachwood Medical Center11-22-2022 Miscellaneous Notes* Telephone Encounter - NATAN Noland [...] stroke. Layne Manley MD documented in this encounterLakehealth Beachwood Medical Center11-21-2022 History of Present illness Narrative* Vicky Montgomery RN - 12/27/2021 2:45 PM EST 24 ga angio started to RAC. Good blood return. Flushed easily with NSS. Dressing applied. Agitated saline adminstered per protocol. 10 cc administered throughout procedure. 0 cc discarded. Pt tolerated procedure well. No C/o's, Hep lock D/c'd and dressing applied. Patient discharged ambulatory with Print Buyer. Vicky Montgomery RN documented in this encounterLakehealth Beachwood Medical Center11-18-2022 History of Present illness Narrative* Arianna Mullen [...] 24, 2021 2:27 PM documented in this encounterLakehealth Beachwood Medical Center11-11-2022 History of Present illness Narrative* Layne Manley [...] for stroke in 04/01/21. Pt seen at [facility] by [facility] Neurology. Was supposed to follow up [...] M1. TNK given at 1032. Transported to [facility] for intervention and underwent LMCA thrombectomy. 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 Family states pt always [...] concerns. Orientation: 12/17/21Monday, Jose Alberto Saini 7s: [id number] Similar: Banana and orange: fruit Watch and ruler: does not know Delayed recall: 04/10 Repeat number: 51450 - 7815 (bkwds) [id number] Repeat sentence: Unable to repeat. NIHSS: 1(a). [...] which included preparing to see the patient, veul-zd-ojmn patient care, completing clinical documentation, obtaining and/or reviewing separately obtained history, performing a medically appropriate examination, counseling and educating the pat ient/family/caregiver, ordering medications, tests, or procedures, independently interpreting results (not separately reported), and communicating results to the patient/family/caregiver. documented in this encounterLakehealth Beachwood Medical Center11-10-2022 Miscellaneous Notes* Telephone Encounter - NATAN Noland - 12/16/2021 3:13 PM EST FYI: TC to patient to inquire about appointment 12/17 as appointment notes say multiple symptoms. Pt states he was seen at [facility] in March for an Acute Stoke and was told he would need a Neurology evaluation in order drive again. Pt coming in to be evaluated for license reinstatement. NATAN Noland documented in this encounterLakehealth Beachwood Medical Center09-07-2022 Hospital Discharge instructions Additional Instructions Drink lots of fluids. He may take Tylenol for any discomfort. Take the entire course of antibiotics (1 pill in the morning 1 pill in the evening) with your first dose tomorrow morning as you received some today.[facility] Work Phone: 1(766) 600-901505-25-2022 Miscellaneous Notes* Telephone Encounter - Vicky Contreras RN - 06/30/2021 9:44 AM EDT MODIFIED MAXINE SCORE POST-DISCHARGE Telephone Visit Patient Name: Gustavo Patton Today's date: June 30, 2021 Date of discharge: April 07, 2021 Person giving information: Gustavo Patton. Relationship to patient: self. Contact information: [phone] Contact attempt: #1 Patient discharge location: [facility] Patient current location: home Presentation to ED or readmission after discharge: No Modified [place] Score: 90 days post discharge: 2 = Slight disability. Unable to carry out all previous activities but able to look after own affairs w/o assistance. Mortality: No Patient still with speech difficulty, but states he is able to be independent. Has an aide come to the house once a week. Signature: Vicky Contreras RN June 30, 2021 9:45 AM documented in this encounterLakehealth Beachwood Medical Center05-23-2022 Miscellaneous Notes* Telephone Encounter - Celina Marshall [...] scheduled. Willa Jay APRN.MARIANA documented in this encounterLakehealth Beachwood Medical Center05-03-2022 Nurse Note* Alicia Olvera, Saddle Stitcher - 06/08/2021 2:00 PM EDT Applied 14 day extended wear EKG patch. Pt a little confused with instructions, so I went over everything with 1 sister in person and one on the phone. documented in this encounterLakehealth Beachwood Medical Center05-03-2022 History of Present illness Narrative* Nikita Quiros, [...] STATUS: Discontinued PROCEDURE TYPE: NM Stress: 13.7mCi Bz40l-Dqujejj was administered IV for Rest Imaging at 1010 by ty. 30.9 mCi Uk92p-Sffmjcg was administered IV for Stress Imaging at 1125 by ms. ADMINISTRATION TIME: 42148 PATIENT DISCHARGED TO: Ambulatory patient, left PA department area. A Diagnostic radioactive procedure has taken place, with no further precautions necessary other than routine body substance precautions. More information regarding radiation safety can be found usingthis link: [email or web address]%[email or web address] SIGNATURE: RT Donnie(R) PATIENT NAME: Gustavo Patton DATE: June 08, 2021 TIME: 12:40 PM PAGER/CONTACT #: documented in this encounterLakehealth Beachwood Medical Center05-03-2022 Miscellaneous Notes* Result QuickNote - Willa Jay [...] hypertension control and metoprolol. documented in this encounterLakehealth Beachwood Medical Center05-03-2022 Nurse Note* Dania Holguin RN - 06/08/2021 [...] and pt tolerated well. documented in this encounterLakehealth Beachwood Medical Center04-27-2022 Miscellaneous Notes* Telephone Encounter - Jackeline Dunne RN - 06/02/2021 11:43 AM EDT The [facility] has reached out to the patient with no response. Therefore, this is considered a deferral of [facility] services at this time. documented in this encounterLakehealth Beachwood Medical Center04-06-2022 Instructions* Patient Instructions* Willa Jay APRN.CNP - 05/12/2021 3:24 PM EDT Obtain Stress Wear monitor I will call both your sisters with your stress test results. documented in this encounterLakehealth Beachwood Medical Center04-06-2022 History of Present illness Narrative* Willa Jay APRN.CNP - 05/12/2021 3:00 PM EDT PRIMARY CARE [...] therapy. It was also recommended by the color printer operator that he have ischemic evaluation in the [...] NM CARDIAC PERF STRESS/PHARM - EXTENDED WEAR FIRE SPRINKLER FITTER PATCH - SELF CHECK COVID 2. L [...] to medications at discharge. Called [facility] in [place], they do not have him on any [...] 3 months. Electronically signed by Willa Jay APRN.MARIANA The above note was partially created using a dictation recognition software. A reasonable attempt has been made to correct any errors. documented in this encounterLakehealth Beachwood Medical Center04-06-2022 Nurse Note* Fidelia Conrad LPN - 05/12/2021 3:00 PM EDT Patient denies any cardiac complaints or symptoms. Not sure of medications he is taking. documented in this encounterLakehealth Beachwood Medical Center03-31-2022 Miscellaneous Notes* Telephone Encounter - Jackeline Dunne RN - 05/06/2021 3:53 PM EDT Patient was discharged from [facility] 04/08/21 with an order to schedule [...] discharged from the facility. [facility]* Diagnosis Shortness of breath documented in this encounter [facility] note* Diagnosis Shortness of breath documented in this encounter [facility]* Diagnosis Shortness of breath documented in this encounter [facility] noteNo assessment information availableWRegency Hospital Company Work Phone: Evaluation note* Diagnosis Cerebral infarction [...] of cerebrovascular disease documented in this encounter [facility]* Diagnosis 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) Cerebral embolism with cerebral infarction documented in this encounter [facility]* Diagnosis Deep vein thrombosis (DVT) of popliteal vein of right lower extremity, unspecified chronicity (HCC) documented in this encounter [facility]* Diagnosis Deep vein thrombosis (DVT) of femoral vein, unspecified chronicity, unspecified laterality (HCC)- Primary documented in this encounter [facility]* Diagnosis 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)- Primary Cerebral embolism with cerebral infarction documented in this encounter [facility]* Diagnosis Deep vein thrombosis (DVT) of femoral vein, unspecified chronicity, unspecified laterality (HCC) documented in this encounter [facility]* Diagnosis 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) Cerebral embolism with cerebral infarction documented in this encounter [facility]* Diagnosis 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)- Primary Cerebral embolism with cerebral infarction documented in this encounter [facility]Evaluation [facility]* Diagnosis Onset Date Resolution Status CVA (cerebrovascular accident) acute Dysarthria acute Paresthesia acute [facility] Work Phone: Evaluation note* Diagnosis 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) Cerebral embolism with cerebral infarction [facility] Onset Date Resolution Status Paresthesia resolved Cognitive change acute Debility acute Heme + stool acute Normochromic normocytic anemia acute Stroke/cerebrovascular accident acute Dehydration resolved Paresthesia resolved Superficial thrombophlebitis of left upper extremity resolved [facility] Work Phone: Evaluation note* Diagnosis Cerebrovascular accident (CVA), unspecified mechanism (HCC)- Primary Left arm weakness Other musculoskeletal symptoms referable to limbs Cognitive developmental delay [facility] Diagnosis Cerebrovascular accident (CVA), unspecified mechanism (HCC)- Primary [facility] Diagnosis Language impairment- Primary Other speech disturbance Cerebrovascular accident (CVA), unspecified mechanism (HCC) [facility] Diagnosis Cerebrovascular accident (CVA), unspecified mechanism (HCC)- Primary Language impairment Other speech disturbance 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) Cerebral embolism with cerebral infarction [facility] Diagnosis Recurrent strokes (HCC)- Primary Cerebral infarction, unspecified mechanism (HCC) [facility] Diagnosis Recurrent strokes (HCC)- Primary Chronic deep vein thrombosis (DVT) of femoral vein of right lower extremity (HCC) Presence of IVC filter Other postprocedural status [facility] Diagnosis Recurrent strokes (HCC)- Primary [facility] Diagnosis Cerebral infarction, unspecified mechanism (HCC) [facility] Diagnosis Elevated factor VIII level- Primary [facility] Diagnosis Cerebrovascular accident (CVA) due to thrombosis of left middle cerebral artery (HCC) Type 2 diabetes mellitus without complication, unspecified whether health and safety tech insulin use (HCC) Diabetes (HCC) Type II [...] Other postprocedural status documented in this encounter [facility] note* Diagnosis Cerebrovascular accident (CVA) due to thrombosis of left middle cerebral artery (HCC) Type 2 diabetes mellitus without complication, unspecified whether fdc insulin use (HCC) Diabetes (HCC) Type II [...] Parkinsonism type (HCC) documented in this encounter [facility] note* Diagnosis Cerebrovascular accident (CVA) due to thrombosis of left middle cerebral artery (HCC) Type 2 diabetes mellitus without complication, unspecified whether fdc insulin use (HCC) Diabetes (HCC) Type II or unspecified type diabetes mellitus without mention of complication, not stated as uncontrolled Deep vein thrombosis (DVT) of lower extremity (HCC) Dysphagia Dysphagia, unspecified Cardiomyopathy (HCC) Other primary cardiomyopathies Parkinsonism, unspecified Parkinsonism type (HCC) documented in this encounter [facility] note* Diagnosis Cerebrovascular accident (CVA) due to thrombosis of left middle cerebral artery (HCC) Type 2 diabetes mellitus without complication, unspecified whether health and safety tech insulin use (HCC) Diabetes (HCC) Type II [...] in limb Cervicalgia documented in this encounter [facility] note* Diagnosis Cerebrovascular accident (CVA) due to thrombosis of left middle cerebral artery (HCC) Type 2 diabetes mellitus without complication, unspecified whether health and safety tech insulin use (HCC) Diabetes (HCC) Type II or unspecified type diabetes mellitus without mention of complication, not stated as uncontrolled Deep vein thrombosis (DVT) of lower extremity (HCC) Dysphagia Dysphagia, unspecified Cardiomyopathy (HCC) Other primary cardiomyopathies Parkinsonism, unspecified Parkinsonism type (HCC) documented in this encounter [facility] note* Diagnosis Cerebrovascular accident (CVA) due to thrombosis of left middle cerebral artery (HCC) Type 2 diabetes mellitus without complication, unspecified whether health and safety tech insulin use (HCC) Diabetes (HCC) Type II or unspecified type diabetes mellitus without mention of complication, not stated as uncontrolled Deep vein thrombosis (DVT) of lower extremity (HCC) Dysphagia Dysphagia, unspecified Cardiomyopathy (HCC) Other primary cardiomyopathies Parkinsonism, unspecified Parkinsonism type (HCC) documented in this encounter [facility] note* Diagnosis Cerebrovascular accident (CVA) due to thrombosis of left middle cerebral artery (HCC) Type 2 diabetes mellitus without complication, unspecified whether health and safety tech insulin use (HCC) Diabetes (HCC) Type II [...] rhythm sleep disorder documented in this encounter [facility] note* Diagnosis Cerebrovascular accident (CVA) due to thrombosis of left middle cerebral artery (HCC) Type 2 diabetes mellitus without complication, unspecified whether health and safety tech insulin use (HCC) Diabetes (HCC) Type II or unspecified type diabetes mellitus without mention of complication, not stated as uncontrolled Deep vein thrombosis (DVT) of lower extremity (HCC) Dysphagia Dysphagia, unspecified Cardiomyopathy (HCC) Other primary cardiomyopathies Parkinsonism, unspecified Parkinsonism type (HCC)- Primary Abnormality of gait [facility] Diagnosis Cerebrovascular accident (CVA) due to thrombosis of left middle cerebral artery (HCC) Type 2 diabetes mellitus without complication, unspecified whether health and safety tech insulin use (HCC) Diabetes (HCC) Type II or unspecified type diabetes mellitus without mention of complication, not stated as uncontrolled Deep vein thrombosis (DVT) of lower extremity (HCC) Dysphagia Dysphagia, unspecified Cardiomyopathy (HCC) Other primary cardiomyopathies Elevated factor VIII level- Primary [facility] Diagnosis Cerebrovascular accident (CVA) due to thrombosis of left middle cerebral artery (HCC) Type 2 diabetes mellitus without complication, unspecified whether fdc insulin use (HCC) Diabetes (HCC) Type II or unspecified type diabetes mellitus without mention of complication, not stated as uncontrolled Deep vein thrombosis (DVT) of lower extremity (HCC) Dysphagia Dysphagia, unspecified Cardiomyopathy (HCC) Other primary cardiomyopathies Abnormality of gait- Primary Parkinsonism, unspecified Parkinsonism type (HCC) documented in this encounter [facility] note* Diagnosis Onset Date Resolution Status Admit Date Acidosis, lactic acute Septembe r 2024 8:58pm Acute renal failure due to rhabdomyolysis acute October 17, 2024 8:58pm Closed head injury acute 2024 8:58pm Debility acute October 8:58pm High anion gap acute October 17, 2024 8:58pm History of multiple strokes acute October 17, 2024 8:58pm Laceration of nose acute 2024 8:58pm Primary cardiomyopathy acute Se pt2024 8:58pm Sinus tachycardia seen on clinical applications manager acute October 17, 2024 8:58pm Essential (primary) hypertension chronic October 17, 2024 8:58pm [facility] Work Phone: Hospital Discharge instructions Additional Instructions [...] with given clinic within the next several weeks.[facility] Work Phone: Hospital Discharge instructionsAdditional Instructions Continue with hemodialysis per nephrology's routine.[facility] Work Phone: Reason for referral (narrative)* Diagnostic Procedure Only (Routine) - Pending Review Specialty Diagnoses / Procedures Referred By Contac t Referred To Contact MOLECULAR & FUNCTIONAL IMAGING Diagnoses Shortness of breath Procedures NM CARDIAC PERF STRESS/PHARM MYOCARDIAL SPECT MULTIPLE STUDIES Willa Jay APRN.BONE CHAR PULLER [address] [place] [address] Molecular & Functional Imaging [address] [phone] Referral ID Status Reason Start Date Expiration Date Visits Requested Visits Authorized [id number] Pending Review Auto-Generat ed Referral 06/11/2021 06/11/2022 [address] [facility] for referral (narrative)* Diagnostic Procedure Only (Routine) - Closed Specialty Diagnoses / Procedures Referred By Contac t Referred To Contact MOLECULAR & FUNCTIONAL IMAGING Diagnoses Shortness of breath Procedures NM CARDIAC PERF STRESS/PHARM MYOCARDIAL SPECT MULTIPLE STUDIES Willa Jay APRN.BONE CHAR PULLER [address] [place] [address] Molecular & Functional Imaging [address] [place] [address] Referral ID Status Reason Start Date Expiration Date V isits Requested Visits Authorized [id number] Closed Auto-Generate d Referral 05/13/2021 06/27/2021 [address] [facility] for referral (narrative)* - Authorized Specialty Diagnoses / Procedures Referred By Contac t Referred To Contact Occupational Therapy Diagnoses Cerebrovascular accident (CVA), unspecified mechanism (HCC) Procedures CONSULT TO TELEVISION INSTALLER Fallon Steiner PA-C [address] [place] [address] Referral ID Status Reason Start Date Expiration Date V isits Requested Visits Authorized [id number] Authorized 04/20/2023 07/19/2023 [address] [facility] for referral (narrative)No reason for referral information availableWRegency Hospital Company Work Phone: Reason for visit Narrative* Diagnostic Procedure Only (Routine) - Closed Specialty Diagnoses / Procedures Referred By Contac t Referred To Contact MOLECULAR & FUNCTIONAL IMAGING Diagnoses Shortness of breath Procedures NM CARDIAC PERF STRESS/PHARM MYOCARDIAL SPECT MULTIPLE STUDIES Willa Jay, ANIMAL WARDEN.BONE CHAR PULLER [address] [place] [address] Molecular & Functional Imaging [address] [phone] Referral ID Status Reason Start Date Expiration Date V isits Requested Visits Authorized [id number] Closed Auto-Generate d Referral 05/13/2021 06/27/2021 [address] 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 for visit Narrative* Outpatient Procedure (Routine) - Closed Specialty Diagnoses / Procedures Referred By Contac t Referred To Contact [facility] Diagnoses Deep vein thrombosis (DVT) of popliteal vein of right lower extremity, unspecified chronicity (HCC) Procedures US LEG VEIN DVT KRUNAL VAS LAB DUP-SCAN XTR VEINS COMPLETE BILATERAL STUDY Layne Manley Jr., MD [address] [facility] [address] [place] [address] Heart [facility] Vascular [address] [place] [address] Referral ID Status Reason Start Date Expiration Date V isits Requested Visits Authorized [id number] Closed Auto-Generate d Referral 12/17/2021 12/17/2022 1 1 [facility] Advance Directives No Advanced Directives Records FoundDocuments on File Type Date Recorded 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 Advance Directive(s) 04/02/2021 12:29 PM Documents on File Type Date Recorded 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 Advance Directive(s) 04/02/2021 12:29 PM Advance Directive Response Recorded Date/ Time Living Will No August 04, 2021 3:09pm Power of Viscosity Tester No August 04 3:09pm Advance Directive Response Recorded Date/ Time Living Will No October 13 11:01am Power of Viscosity Tester No October 13, 2021 11:01am Advance Directive Response Recorded Date/ Time Living Will No October 13 10:01am Power of Viscosity Tester No October 13, 2021 10:01am Advance Directive Response Recorded Date/ Time Living Will No November 22 9:55am Power of Viscosity Tester No November 22, 2022 9:55am Advance Directive Response Recorded Date/ Time Name of Medical Power of Viscosity Tester Patient doesn't remember at this time November 22, 2022 12:45pm Living Will Yes November 22 12:45pm Power of Viscosity Tester Yes November 22, 2022 12:45pm Advance Directive Response Recorded Date/ Time Name of Medical Power of Viscosity Tester Patient doesn't remember at this time November 22, 2022 11:45am Name of Medical Power of Viscosity Tester Renate Francois, sister November 25, 2022 9:27am Living Will Yes November 25 9:27am Power of Viscosity Tester Yes November 25, 2022 9:27am Advance Directive Response Recorded Date/ Time Living Will Yes November 25 10:27am Do you have a Healthcare Power of Viscosity Tester? Yes November 25, 2022 10:27am Advance Directive Response Recorded Date/ Time Do you have a Healthcare Power of Viscosity Tester? Yes October 17, 2024 6:18pm Advance Directive Response Recorded Date/ Time Do you have a Healthcare Power of Viscosity Tester? Yes October 17, 2024 9:51pm Chief Complaint [...] Date SIRS, CHRISTY, RHABOMYOLYSIS AND HEMATURIA S [facility] 2024 8:58pm Reason for Visit Admit Date Acidosis, lactic October 17, 2024 8:58pm Acute renal failure due to rhabdomyolysi s October 17, 2024 8:58pm Closed head injury October 17, 2024 8:58pm Debility October 17, 2024 8:58pm High anion gap October 17, 2024 8:58pm History of multiple strokes October 172024 8:58pm Laceration of nose October 17, 2024 8:58pm Primary cardiomyopathy October 17 8:58pm Sinus tachycardia seen on cardiac monito r October 17, 2024 8:58pm Essential (primary) hypertension Sept2024 8:58pm Chief Complaint Admit Date SIRS, CHRISTY, RHABOMYOLYSIS AND HEMATURIA S [facility] 2024 8:58pm SIRS, CHRISTY, RHABOMYOLYSIS AND HEMATURIA S [facility] 2024 8:06am SIRS, CHRISTY, RHABOMYOLYSIS AND HEMATURIA S [facility] 2024 7:00am SIRS, CHRISTY, RHABOMYOLYSIS AND HEMATURIA S [facility] 2024 7:21am SIRS, CHRISTY, RHABOMYOLYSIS AND HEMATURIA S [facility] 2024 2:03pm SIRS, CHRISTY, RHABOMYOLYSIS AND HEMATURIA S [facility] 2024 4:30pm SIRS, CHRISTY, RHABOMYOLYSIS AND HEMATURIA S [facility] 2024 8:36am SIRS, CHRISTY, RHABOMYOLYSIS AND HEMATURIA S [facility] 2024 1:36pm SIRS, CHRISTY, RHABOMYOLYSIS AND HEMATURIA S [facility] 11:00am SIRS, CHRISTY, RHABOMYOLYSIS AND HEMATURIA S [facility] 2024 11:57am SIRS, CHRISTY, RHABOMYOLYSIS AND HEMATURIA S [facility] 2024 3:29pm SIRS, CHRISTY, RHABOMYOLYSIS AND HEMATURIA S [facility] 2024 9:26am SIRS, CHRISTY, RHABOMYOLYSIS AND HEMATURIA S [facility] 2024 10:11am SIRS, CHRISTY, RHABOMYOLYSIS AND HEMATURIA S [facility] 2024 8:25am SIRS, CHRISTY, RHABOMYOLYSIS AND HEMATURIA S [facility] 2024 11:51am SIRS, CHRISTY, RHABOMYOLYSIS AND HEMATURIA S [facility] 2024 11:18am SIRS, CHRISTY, RHABOMYOLYSIS AND HEMATURIA S [facility] 2024 12:36pm SIRS, CHRISTY, RHABOMYOLYSIS AND HEMATURIA S [facility] 2024 8:08am SIRS, CHRISTY, RHABOMYOLYSIS AND HEMATURIA S [facility] 2024 9:14am SIRS, CHRISTY, RHABOMYOLYSIS AND HEMATURIA S [facility] 2024 8:20am SIRS, CHRISTY, RHABOMYOLYSIS AND HEMATURIA S [facility] 2024 8:54am Reason for Visit Admit Date [...] October 17, 2024 8:58pm [facility] History of DVT (deep vein thrombosis) Se ptember 2024 8:58pm History of multiple strokes October 172024 8:58pm Hyperglycemia due to type 2 diabetes nikita litus October 17, 2024 8:58pm Parkinson disease October 17, 2024 8:58pm Primary cardiomyopathy October 17, 025 8:58pm [facility] 8:[facility] Chief Complaint Admit Date SIRS, CHRISTY, RHABOMYOLYSIS AND HEMATURIA S [facility] 2024 8:58pm SIRS, CHRISTY, RHABOMYOLYSIS AND HEMATURIA S [facility] 2024 8:06am SIRS, CHRISTY, RHABOMYOLYSIS AND HEMATURIA S [facility] 7:00am SIRS, CHRISTY, RHABOMYOLYSIS AND HEMATURIA [facility] 20[facility] 7:21am SIRS, CHRISTY, RHABOMYOLYSIS AND HEMATURIA S [facility] 2024 2:03pm SIRS, CHRISTY, RHABOMYOLYSIS AND HEMATURIA S [facility] 2024 4:30pm SIRS, CHRISTY, RHABOMYOLYSIS AND HEMATURIA S [facility] 2024 8:36am SIRS, CHRISTY, RHABOMYOLYSIS AND HEMATURIA S e[facility]er 2024 1:36pm SIRS, CHRISTY, RHABOMYOLYSIS AND HEMATURIA S eptember 2024 11:00am SIRS, CHRISTY, RHABOMYOLYSIS AND HEMATURIA S eptember 2024 11:57am SIRS, CHRISTY, RHABOMYOLYSIS AND HEMATURIA S eptember 2024 3:29pm SIRS, CHRISTY, RHABOMYOLYSIS AND HEMATURIA S eptember 2024 9:26am SIRS, CHRISTY, RHABOMYOLYSIS AND HEMATURIA S eptember 2024 10:11am SIRS, CHRISTY, RHABOMYOLYSIS AND HEMATURIA S eptember 2024 8:25am SIRS, CHRISTY, RHABOMYOLYSIS AND HEMATURIA S eptember 2024 11:51am SIRS, CHRISTY, RHABOMYOLYSIS AND HEMATURIA S eptember 2024 11:18am SIRS, CHRISTY, RHABOMYOLYSIS AND HEMATURIA S eptember 2024 12:36pm SIRS, CHRISTY, RHABOMYOLYSIS AND HEMATURIA S eptember 2024 8:08am SIRS, CHRISTY, RHABOMYOLYSIS AND HEMATURIA S eptember 2024 9:14am SIRS, CHRISTY, RHABOMYOLYSIS AND HEMATURIA S eptember 2024 8:20am SIRS, CHRISTY, RHABOMYOLYSIS AND HEMATURIA S eptember 2024 8:54am ADMISSION H&P EXAM BY BISQUE CLEANER October 30, 2024 5:57pm JAIL LAB WORK October 31 5:30am NEW CONCERN [...] COMPLEX 45 MINS Layne Manley Jr., MD [address] [facility] [address] [place] [address] Re[facility] [address] [phone] Referral ID Status Reason Start Date Expiration Date Visits Requested Visits Authorized [id number] Pending Review PCP Requested Referral Auto-Generate d Referral 2 12/17/2022 99 99 Specialty Diagnoses / Procedures Referred By Contac t Referred To Contact [facility] Diagnoses 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) Procedures ECHO WITH AGITATED SALINE CONTRAST ECHO TRANSTHORAC R-T 2D W/WO M-MODE REC COMP Layne Manley Jr., MD [address] [facility] [address] [place] [address] [place] [address] Referral ID Status Reason Start Date Expiration Date Visits Requested Visits Authorized [id number] Authorized Auto-Generat ed Referral 2 12/17/2022 1 1 Specialty Diagnoses / Procedures Referred By Contac t Referred To Contact [facility] Diagnoses Deep vein thrombosis (DVT) of popliteal vein of right lower extremity, unspecified chronicity (HCC) Procedures US LEG VEIN DVT KRUNAL VAS LAB DUP-SCAN XTR VEINS COMPLETE BILATERAL STUDY Layne Manley Jr., MD [address] [facility] [address] [place] [address] [place] [address] Referral ID Status Reason Start Date Expiration Date Visits Requested Visits Authorized [id number] Authorized Auto-Generat ed Referral 2 12/17/2022 1 1 Specialty Diagnoses / Procedures Referred By Contac t Referred To Contact CT IMAGING Diagnoses 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) Procedures CONSULT TO TELEVISION INSTALLER OCCUPATIONAL THERAPY [facility] 60 MINS Layne Manley Jr., MD [address] [facility] [address] [place] [address] [facility] [place] [address] Referral ID Status Reason Start Date Expiration Date Visits Requested Visits Authorized [id number] Pending Review Auto-Generat ed Referral 2 01/05/2023 1 1 Specialty Diagnoses / Procedures Referred By Contac t Referred To Contact CT IMAGING Diagnoses 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) Procedures CT BRAIN WO IVCON CT HEAD/BRAIN W/O CONTRAST MATERIAL Layne Manley Jr., MD [address] [facility] [address] [place] [address] Ct Imaging [address] [address] Referral ID Status Reason Start Date Expiration Date V isits Requested Visits Authorized [id number] Denied Auto-Generate d Referral 12/17/2021 01/16/2023 1 0 Specialty Diagnoses / Procedures Referred By Contac t Referred To Contact [facility] Diagnoses Cerebrovascular accident (CVA), unspecified mechanism (HCC) Procedures CONSULT TO PHYSICAL THERAPY PHYSICAL THERAPY EVALUATION HIGH COMPLEX 45 MINS Fallon Steiner PA-C [address] [place] [address] [facility] [address] [place] [address] Referral ID Status Reason Start Date Expiration Date Visits Requested Visits Authorized [id number] Authorized PCP Requested Referral Auto-Generate d Referral 04/18/2023 04/17/2024 99 99 Specialty Diagnoses / Procedures Referred By Contac t Referred To Contact Diagnoses Recurrent strokes (HCC) Procedures CONSULT TO HEMATOLOGY/ONCOLOGY OFFICE/OUTPATIENT [facility] 60 MINUTES Layne Manley Jr., MD [address] [facility] [address] [place] [address] Referral ID Status Reason Start Date Expiration Date Visits Requested Visits Authorized [id number] Authorized PCP Requested Referral 07/17/2023 07/16/2024 1 1 Specialty Diagnoses / Procedures Referred By Contac t Referred To Contact MR IMAGING Diagnoses Cerebral infarction, unspecified mechanism (HCC) Procedures MRA CAROTID WO IVCON MRA, NECK; W/O CONTRAST Layne Manley Jr., MD [address] [facility] [address] [place] [address] Mr Imaging [facility] Referral ID Status Reason Start Date Expiration Date Visits Requested Visits Authorized [id number] Authorized Auto-Generat ed Referral 07/17/2023 08/15/2024 1 1 Specialty Diagnoses / Procedures Referred By Contac t Referred To Contact MR IMAGING Diagnoses Cerebral infarction, unspecified mechanism (HCC) Procedures MRA BRAIN WO IVCON MRA, HEAD W/O CONTRAST Layne Manley Jr., MD [address] [facility] [address] [place] [address] Mr Imaging [facility] Referral ID Status Reason Start Date Expiration Date Visits Requested Visits Authorized [id number] Authorized Auto-Generat ed Referral 07/17/2023 08/15/2024 1 1 Referral ID Status Reason Start Date Expiration Date V isits Requested Visits Authorized [id number] Closed Auto-Generate d Referral 07/17/2023 08/15/2024 1 1 Referral ID Status Reason Start Date Expiration Date V isits Requested Visits Authorized [id number] Closed Auto-Generate d Referral 07/17/2023 08/15/2024 1 1 Specialty Diagnoses / Procedures Referred By Contac t Referred To Contact [facility] Diagnoses Parkinsonism, unspecified Parkinsonism type (HCC) Pain in finger of left hand Cervicalgia Procedures CONSULT TO PHYSICAL THERAPY PHYSICAL THERAPY EVALUATION HIGH COMPLEX 45 MINS Fallon Steiner PA-C [address] [place] [address] [facility] [place] [address] [place] [address] Referral ID Status Reason Start Date Expiration Date Visits Requested Visits Authorized [id number] Authorized PCP Requested Referral Auto-Generate d Referral 4 12/05/2024 99 99 Medications Administered Section Inactive Administered Medications - up to 3 most recent administrations Medication Order MAR Action Action Date Dose Rate Site sodium chloride 0.9 % (flush) 10 mL (BD POSIFLUSH) 10 mL, INTRAVENOUS, DIRECTED NEEDED, 1 dose, Starting on Mon12/17/21 at 1136, Until 12/27/21 at 1330, Per-Protocol [...] or prosecute any alcohol or drug abuse patient.[facility] CenterIn the event this information is protected by the Federal Confidentiality of Alcohol and Drug Abuse Patient Records regulations: The Federal rules restrict any use of the information to criminally investigate or prosecute any alcohol or drug abuse patient.[facility] CenterIn the event this information is protected by the Federal Confidentiality of Alcohol and Drug Abuse Patient Records regulations: The Federal rules restrict any use of the information to criminally investigate or prosecute any alcohol or drug abuse patient.[facility] CenterIn the event this information is protected by the Federal Confidentiality of Alcohol and Drug Abuse Patient Records regulations: The Federal rules restrict any use of the information to criminally investigate or prosecute any alcohol or drug abuse patient.[facility] CenterIn the event this information is protected by the Federal Confidentiality of Alcohol and Drug Abuse Patient Records regulations: The Federal rules restrict any use of the information to criminally investigate or prosecute any alcohol or drug abuse patient.[facility] CenterIn the event this information is protected by the Federal Confidentiality of Alcohol and Drug Abuse Patient Records regulations: The Federal rules restrict any use of the information to criminally investigate or prosecute any alcohol or drug abuse patient.[facility] CenterIn the event this information is protected by the Federal Confidentiality of Alcohol and Drug Abuse Patient Records regulations: The Federal rules restrict any use of the information to criminally investigate or prosecute any alcohol or drug abuse patient.[facility] CenterIn the event this information is protected by the Federal Confidentiality of Alcohol and Drug Abuse Patient Records regulations: The Federal rules restrict any use of the information to criminally investigate or prosecute any alcohol or drug abuse patient.[facility] CenterIn the event this information is protected by the Federal Confidentiality of Alcohol and Drug Abuse Patient Records regulations: The Federal rules restrict any use of the information to criminally investigate or prosecute any alcohol or drug abuse patient.[facility] CenterIn the event this information is protected by the Federal Confidentiality of Alcohol and Drug Abuse Patient Records regulations: The Federal rules restrict any use of the information to criminally investigate or prosecute any alcohol or drug abuse patient.[facility] CenterIn the event this information is protected by the Federal Confidentiality of Alcohol and Drug Abuse Patient Records regulations: The Federal rules restrict any use of the information to criminally investigate or prosecute any alcohol or drug abuse patient.[facility] CenterIn the event this information is protected by the Federal Confidentiality of Alcohol and Drug Abuse Patient Records regulations: The Federal rules restrict any use of the information to criminally investigate or prosecute any alcohol or drug abuse patient.[facility] CenterIn the event this information is protected by the Federal Confidentiality of Alcohol and Drug Abuse Patient Records regulations: The Federal rules restrict any use of the information to criminally investigate or prosecute any alcohol or drug abuse patient.[facility] CenterIn the event this information is protected by the Federal Confidentiality of Alcohol and Drug Abuse Patient Records regulations: The Federal rules restrict any use of the information to criminally investigate or prosecute any alcohol or drug abuse patient.[facility] CenterIn the event this information is protected by the Federal Confidentiality of Alcohol and Drug Abuse Patient Records regulations: The Federal rules restrict any use of the information to criminally investigate or prosecute any alcohol or drug abuse patient.[facility] CenterIn the event this information is protected by the Federal Confidentiality of Alcohol and Drug Abuse Patient Records regulations: The Federal rules restrict any use of the information to criminally investigate or prosecute any alcohol or drug abuse patient.[facility] CenterIn the event this information is protected by the Federal Confidentiality of Alcohol and Drug Abuse Patient Records regulations: The Federal rules restrict any use of the information to criminally investigate or prosecute any alcohol or drug abuse patient.[facility] CenterIn the event this information is protected by the Federal Confidentiality of Alcohol and Drug Abuse Patient Records regulations: The Federal rules restrict any use of the information to criminally investigate or prosecute any alcohol or drug abuse patient.[facility] CenterIn the event this information is protected by the Federal Confidentiality of Alcohol and Drug Abuse Patient Records regulations: The Federal rules restrict any use of the information to criminally investigate or prosecute any alcohol or drug abuse patient.[facility] CenterIn the event this information is protected by the Federal Confidentiality of Alcohol and Drug Abuse Patient Records regulations: The Federal rules restrict any use of the information to criminally investigate or prosecute any alcohol or drug abuse patient.[facility] CenterIn the event this information is protected by the Federal Confidentiality of Alcohol and Drug Abuse Patient Records regulations: The Federal rules restrict any use of the information to criminally investigate or prosecute any alcohol or drug abuse patient.[facility] CenterIn the event this information is protected by the Federal Confidentiality of Alcohol and Drug Abuse Patient Records regulations: The Federal rules restrict any use of the information to criminally investigate or prosecute any alcohol or drug abuse patient.[facility] CenterIn the event this information is protected by the Federal Confidentiality of Alcohol and Drug Abuse Patient Records regulations: The Federal rules restrict any use of the information to criminally investigate or prosecute any alcohol or drug abuse patient.[facility] CenterIn the event this information is protected by the Federal Confidentiality of Alcohol and Drug Abuse Patient Records regulations: The Federal rules restrict any use of the information to criminally investigate or prosecute any alcohol or drug abuse patient.[facility] CenterIn the event this information is protected by the Federal Confidentiality of Alcohol and Drug Abuse Patient Records regulations: The Federal rules restrict any use of the information to criminally investigate or prosecute any alcohol or drug abuse patient.[facility] CenterIn the event this information is protected by the Federal Confidentiality of Alcohol and Drug Abuse Patient Records regulations: The Federal rules restrict any use of the information to criminally investigate or prosecute any alcohol or drug abuse patient.[facility] CenterIn the event this information is protected by the Federal Confidentiality of Alcohol and Drug Abuse Patient Records regulations: The Federal rules restrict any use of the information to criminally investigate or prosecute any alcohol or drug abuse patient.[facility] CenterIn the event this information is protected by the Federal Confidentiality of Alcohol and Drug Abuse Patient Records regulations: The Federal rules restrict any use of the information to criminally investigate or prosecute any alcohol or drug abuse patient.[facility] CenterIn the event this information is protected by the Federal Confidentiality of Alcohol and Drug Abuse Patient Records regulations: The Federal rules restrict any use of the information to criminally investigate or prosecute any alcohol or drug abuse patient.[facility] CenterIn the event this information is protected by the Federal Confidentiality of Alcohol and Drug Abuse Patient Records regulations: The Federal rules restrict any use of the information to criminally investigate or prosecute any alcohol or drug abuse patient.[facility] CenterIn the event this information is protected by the Federal Confidentiality of Alcohol and Drug Abuse Patient Records regulations: The Federal rules restrict any use of the information to criminally investigate or prosecute any alcohol or drug abuse patient.[facility] CenterIn the event this information is protected by the Federal Confidentiality of Alcohol and Drug Abuse Patient Records regulations: The Federal rules restrict any use of the information to criminally investigate or prosecute any alcohol or drug abuse patient.[facility] CenterIn the event this information is protected by the Federal Confidentiality of Alcohol and Drug Abuse Patient Records regulations: The Federal rules restrict any use of the information to criminally investigate or prosecute any alcohol or drug abuse patient.[facility] CenterIn the event this information is protected by the Federal Confidentiality of Alcohol and Drug Abuse Patient Records regulations: The Federal rules restrict any use of the information to criminally investigate or prosecute any alcohol or drug abuse patient.[facility] CenterIn the event this information is protected by the Federal Confidentiality of Alcohol and Drug Abuse Patient Records regulations: The Federal rules restrict any use of the information to criminally investigate or prosecute any alcohol or drug abuse patient.[facility] CenterIn the event this information is protected by the Federal Confidentiality of Alcohol and Drug Abuse Patient Records regulations: The Federal rules restrict any use of the information to criminally investigate or prosecute any alcohol or drug abuse patient.[facility] CenterIn the event this information is protected by the Federal Confidentiality of Alcohol and Drug Abuse Patient Records regulations: The Federal rules restrict any use of the information to criminally investigate or prosecute any alcohol or drug abuse patient.[facility] CenterIn the event this information is protected by the Federal Confidentiality of Alcohol and Drug Abuse Patient Records regulations: The Federal rules restrict any use of the information to criminally investigate or prosecute any alcohol or drug abuse patient.[facility] CenterIn the event this information is protected by the Federal Confidentiality of Alcohol and Drug Abuse Patient Records regulations: The Federal rules restrict any use of the information to criminally investigate or prosecute any alcohol or drug abuse patient.[facility] CenterIn the event this information is protected by the Federal Confidentiality of Alcohol and Drug Abuse Patient Records regulations: The Federal rules restrict any use of the information to criminally investigate or prosecute any alcohol or drug abuse patient.[facility] CenterIn the event this information is protected by the Federal Confidentiality of Alcohol and Drug Abuse Patient Records regulations: The Federal rules restrict any use of the information to criminally investigate or prosecute any alcohol or drug abuse patient.[facility] CenterIn the event this information is protected by the Federal Confidentiality of Alcohol and Drug Abuse Patient Records regulations: The Federal rules restrict any use of the information to criminally investigate or prosecute any alcohol or drug abuse patient.[facility] CenterIn the event this information is protected by the Federal Confidentiality of Alcohol and Drug Abuse Patient Records regulations: The Federal rules restrict any use of the information to criminally investigate or prosecute any alcohol or drug abuse patient.[facility] CenterIn the event this information is protected by the Federal Confidentiality of Alcohol and Drug Abuse Patient Records regulations: The Federal rules restrict any use of the information to criminally investigate or prosecute any alcohol or drug abuse patient.[facility] CenterIn the event this information is protected by the Federal Confidentiality of Alcohol and Drug Abuse Patient Records regulations: The Federal rules restrict any use of the information to criminally investigate or prosecute any alcohol or drug abuse patient.[facility] CenterIn the event this information is protected by the Federal Confidentiality of Alcohol and Drug Abuse Patient Records regulations: The Federal rules restrict any use of the information to criminally investigate or prosecute any alcohol or drug abuse patient.[facility] CenterIn the event this information is protected by the Federal Confidentiality of Alcohol and Drug Abuse Patient Records regulations: The Federal rules restrict any use of the information to criminally investigate or prosecute any alcohol or drug abuse patient.[facility] CenterIn the event this information is protected by the Federal Confidentiality of Alcohol and Drug Abuse Patient Records regulations: The Federal rules restrict any use of the information to criminally investigate or prosecute any alcohol or drug abuse patient.[facility] CenterIn the event this information is protected by the Federal Confidentiality of Alcohol and Drug Abuse Patient Records regulations: The Federal rules restrict any use of the information to criminally investigate or prosecute any alcohol or drug abuse patient.[facility] CenterIn the event this information is protected by the Federal Confidentiality of Alcohol and Drug Abuse Patient Records regulations: The Federal rules restrict any use of the information to criminally investigate or prosecute any alcohol or drug abuse patient.[facility] CenterIn the event this information is protected by the Federal Confidentiality of Alcohol and Drug Abuse Patient Records regulations: The Federal rules restrict any use of the information to criminally investigate or prosecute any alcohol or drug abuse patient.[facility] CenterIn the event this information is protected by the Federal Confidentiality of Alcohol and Drug Abuse Patient Records regulations: The Federal rules restrict any use of the information to criminally investigate or prosecute any alcohol or drug abuse patient.[facility] CenterIn the event this information is protected by the Federal Confidentiality of Alcohol and Drug Abuse Patient Records regulations: The Federal rules restrict any use of the information to criminally investigate or prosecute any alcohol or drug abuse patient.[facility] CenterIn the event this information is protected by the Federal Confidentiality of Alcohol and Drug Abuse Patient Records regulations: The Federal rules restrict any use of the information to criminally investigate or prosecute any alcohol or drug abuse patient.[facility] CenterIn the event this information is protected by the Federal Confidentiality of Alcohol and Drug Abuse Patient Records regulations: The Federal rules restrict any use of the information to criminally investigate or prosecute any alcohol or drug abuse patient.[facility] CenterIn the event this information is protected by the Federal Confidentiality of Alcohol and Drug Abuse Patient Records regulations: The Federal rules restrict any use of the information to criminally investigate or prosecute any alcohol or drug abuse patient.[facility] CenterIn the event this information is protected by the Federal Confidentiality of Alcohol and Drug Abuse Patient Records regulations: The Federal rules restrict any use of the information to criminally investigate or prosecute any alcohol or drug abuse patient.[facility] CenterIn the event this information is protected by the Federal Confidentiality of Alcohol and Drug Abuse Patient Records regulations: The Federal rules restrict any use of the information to criminally investigate or prosecute any alcohol or drug abuse patient.[facility] CenterIn the event this information is protected by the Federal Confidentiality of Alcohol and Drug Abuse Patient Records regulations: The Federal rules restrict any use of the information to criminally investigate or prosecute any alcohol or drug abuse patient.[facility] Reason for Visit (unrecogniz ed section and content) Reason Comments OT EVAL Specialty Diagnoses / Procedures Referred By Contac t Referred To Contact Occupational Therapy Diagnoses Cerebrovascular accident (CVA), unspecified mechanism (HCC) Procedures CONSULT TO TELEVISION INSTALLER Fallon Steiner PA-C [address] [place] [address] Referral ID Status Reason Start Date Expiration Date V isits Requested Visits Authorized [id number] Authorized 04/20/2023 07/19/2023 99 99 Reason Comments Occupational Therapy Specialty Diagnoses / Procedures Referred By Contac t Referred To Contact OCCUPATIONAL THERAPY Diagnoses 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, unspecified chronicity, unspecified laterality (HCC) Procedures CONSULT TO VASCULAR MEDICINE OFFICE/OUTPATIENT [facility] MDM 60-74 MINUTES Layne Manley Jr., MD [address] [facility] [address] [place] [address] Referral ID Status Reason Start Date Expiration Date V isits Requested Visits Authorized [id number] Closed PCP Requested Referral 01/04/2022 01/04/2023 1 [...] W/O CONTRAST MATERIAL Layne Manley Jr., MD [address] [place] [address] [place] [id number] Referral ID Status Reason Start Date Expiration Date V isits Requested Visits Authorized [id number] Denied Auto-Generate d Referral 12/17/2021 01/16/2023 1 0 Reason Comments Follow Up Follow Hx stroke. Reason Comments Patient Question Reason Comments Results Patient Update This therapist chinchilla d patient's sister who is DPOA and lives in [place] regarding Gustavo's recent clinical assessment results of [...] driving Procedures Self pay driving Self Ot [address] [address] Referral ID Status Reason Start Date Expiration Date Visits Requested Visits Authorized [id number] Authorized Financial Clearance Required - Self Pay [...] MDM 60 MINUTES Layne Manley Jr., MD [address] [place] [address] Referral ID Status Reason Start Date Expiration Date V isits Requested Visits Authorized [id number] Closed PCP Requested Referral 07/17/2023 07/16/2024 1 1 Reason Comments Follow Up Reason Comments Patient Update Specialty Diagnoses / Procedures Referred By Contac t Referred To Contact MR IMAGING Diagnoses Cerebral infarction, unspecified mechanism (HCC) Procedures MRA CAROTID WO IVCON MRA, NECK; W/O CONTRAST Layne Manley Jr., MD [address] [facility] [address] [place] [address] [place] [id number] Referral ID Status Reason Start Date Expiration Date V isits Requested Visits Authorized [id number] Closed Auto-Generate d Referral 07/17/2023 08/15/2024 1 [...] 45 MINS Layne Manley Jr., MD [address] [place] [address] Phone: tel: fax: [facility] [address] [place] [address] Referral ID Status Reason Start Date Expiration Date Visits Requested Visits Authorized [id number] Authorized PCP Requested Referral Auto-Generate d Referral 07/12/2024 07/12/2025 99 99 Reason Comments PT Discharge Specialty Diagnoses / Procedures Referred By Contac t Referred To Contact [facility] Diagnoses Parkinsonism, unspecified Parkinsonism type (HCC) Abnormality of gait Procedures PHYSICAL THERAPY EVALUATION HIGH COMPLEX 45 MINS Layne Manley Jr., MD [address] [place] [address] Phone: tel: fax: [facility] [address] [place] [address] Goals (unrecognized section and content) Goals may [...] content) DATE CREATED AUTHOR 08/07/2021 [facility] DATE CREATED AUTHOR AUTHOR'S ORGANIZ ATION 09/30/2022 [facility] DATE CREATED AUTHOR AUTHOR'S ORGANIZ ATION 05/26/2023 [facility] DATE CREATED AUTHOR AUTHOR'S ORGANIZ ATION 09/17/2024 [facility] DATE CREATED AUTHOR AUTHOR'S ORGANIZ ATION 12/18/2024 [facility] Care Teams (unrecognized sec tion and content) Splitting Machine Tender Relationship Specialty Start Date End Date Edith Fraser MD [address] [facility] [address] [place] [address] PCP - General Family Medicine 01/10/22 Layne Manley Jr., MD [address] [facility] [place] [address] Neurology 01/10/22 Splitting Machine Tender Relationship Specialty Start Date End Date Edith Fraser MD [address] [facility] [address] [place] [address] PCP - General Family Medicine 01/10/22 Layne Manley Jr., MD [address] [facility] [place] [address] Neurology 01/10/22 Splitting Machine Tender Relationship Specialty Start Date End Date Edith Fraser MD [address] [facility] [address] [place] [address] PCP - General Family Medicine 01/10/22 Layne Manley Jr., MD [address] [facility] [place] [address] Neurology 01/10/22 Team Status: Active Member Role [...] Member Role Status Dates Ayla Stathopoulos , BISQUE CLEANER-C Attending Provider, Referr ing Provider Active Madhavi Chaudhry DO Primary Care Provider Active Team Status: Inactive Member Role Status Dates Madhavi Chaudhry DO Primary Care Provider Active Ayla Stathopoulos , BISQUE CLEANER-C Attending Provider, Referr ing Provider Active Splitting Machine Tender Relationship Specialty Start Date End Date Edith Fraser MD [address] [facility] [address] [place], [place] [address] PCP - General Family Medicine 01/10/22 Layne Manley Jr., MD [address] [place] [address] Neurology 01/10/22 Team Status: Active Member Role Status Dates Madhavi Chaudhry DO Primary Care Provider Active Dr. Javon Vazquez MD Attending Provider Active Ayla Stathopoulos , BISQUE CLEANER-C Referring Provider Active Team Status: Inactive Member Role Status Dates Dr. Edith Fraser MD Primary Care Provider Active Dr. Layne Manley MD Attending Provider, Referring P rovider Active Team Status: Active Member Role Status Dates Madhavi Chaudhry DO Primary Care Provider Active Dr. Cristhian Carlos , Emergency Provider Active Dr. Jerod Cavazos , Admit Provider, Attending Provider Active Team Status: [...] Provi ellen, Attending Provider, Referring Provider Active Splitting Machine Tender Relationship Specialty Start Date End Date Edith Fraser MD [address] [place] [address] PCP - General Family Medicine 01/10/22 Layne Manley Jr., MD [facility] [place] [address] Neurology 01/10/22 Splitting Machine Tender Relationship Specialty Start Date End Date Edith Fraser MD [address] [place] [id number] PCP - General Family Medicine 01/10/22 Layne Manley Jr., MD [address] [place] [address] Neurology 01/10/22 Splitting Machine Tender Relationship Specialty Start Date End Date Edith Fraser MD [address] [place] [address] [address] [place] [address] PCP - General Family Medicine 01/10/22 Layne Manley Jr., MD [address] [facility] [place] [address] Neurology 01/10/22 Splitting Machine Tender Relationship Specialty Start Date End Date Edith Fraser MD [address] [facility] [address] [place] [address] PCP - General Family Medicine 01/10/22 Layne Manley Jr., MD [address] [place] [address] Neurology 01/10/22 Splitting Machine Tender Relationship Specialty Start Date End Date Edith Fraser MD [address] [facility] [address] [place] [address] PCP - General Family Medicine 01/10/22 Layne Manley Jr., MD [address] [place] [address] Neurology 01/10/22 Splitting Machine Tender Relationship Specialty Start Date End Date Edith Fraser MD [address] [facility] [address] [place] [address] PCP - General Family Medicine 01/10/22 Layne Manley Jr., MD [address] [place] [address] Neurology 01/10/22 Splitting Machine Tender Relationship Specialty Start Date End Date Edith Fraser MD [address] [facility] [address] [place] [address] PCP - General Family Medicine 01/10/22 Layne Manley Jr., MD [address] [facility] [place] [address] Neurology 01/10/22 Splitting Machine Tender Relationship Specialty Start Date End Date Edith Fraser MD [address] [facility] [address] [place] [address] PCP - General Family Medicine 01/10/22 Layne Manley Jr., MD [address] [facility] [place] [address] Neurology 01/10/22 Splitting Machine Tender Relationship Specialty Start Date End Date Edith Fraser MD [address] [place] [address] [address] [place] [address] PCP - General Family Medicine 01/10/22 Layne Manley Jr., MD [address] [facility] [place] [address] Neurology 01/10/22 Splitting Machine Tender Relationship Specialty Start Date End Date Edith Fraser MD [address] [place] [address] [address] [place] [address] PCP - General Family Medicine 01/10/22 Layne Manley Jr., MD [address] [facility] [place] [address] Neurology 01/10/22 Splitting Machine Tender Relationship Specialty Start Date End Date Edith Fraser MD [address] [place] [address] [address] [place] [address] PCP - General Family Medicine 01/10/22 Layne Manley Jr., MD [address] [place] [address] Neurology 01/10/22 Splitting Machine Tender Relationship Specialty Start Date End Date Edith Fraser MD [address] [place] [address] PCP - General Family Medicine 01/10/22 Layne Manley Jr., MD [address] [place] [address] Neurology 01/10/22 Splitting Machine Tender Relationship Specialty Start Date End Date Edith Fraser MD [address] [place] [address] PCP - General Family Medicine 01/10/22 Layne Manley Jr., MD [address] [place] [address] Neurology 01/10/22 Splitting Machine Tender Relationship Specialty Start Date End Date Edith Fraser MD [address] [place] [address] PCP - General Family Medicine 01/10/22 Layne Manley Jr., MD [address] [place] [address] Neurology 01/10/22 Splitting Machine Tender Relationship Specialty Start Date End Date Edith Fraser MD [address] [place] [address] PCP - General Family Medicine 01/10/22 Layne Manley Jr., MD [address] [place] [address] Neurology 01/10/22 Splitting Machine Tender Relationship Specialty Start Date End Date Edith Fraser MD [address] [facility] [address] [place], [place] [address] PCP - General Family Medicine 01/10/22 Layne Manley Jr., MD [address] [place] [address] Neurology 01/10/22 Splitting Machine Tender Relationship Specialty Start Date End Date Edith Fraser MD [address] [facility] [address] [place] [address] PCP - General Family Medicine 01/10/22 Layne Manley Jr., MD [address] [place] [address] Neurology 01/10/22 Team Status: Active Member Role [...] Team Status: Inactive Member Role Status Tyler Chaudhry DO Referring Provider Active Start: February 29, 2024 End: February 29, 2024 Iain López BISQUE CLEANER, BISQUE CLEANER-C Attending Provider Active S tart: February 29, [...] May 01, 2024 End: May 01, 2024 Splitting Machine Tender Relationship Specialty Start Date End Date Edith Fraser MD [address] [facility] [address] [place], [place] [address] PCP - General Family Medicine 01/10/22 Layne Manley Jr., MD [address] [facility] [place] [address] Neurology 01/10/22 Splitting Machine Tender Relationship Specialty Start Date End Date Edith Fraser MD [address] [place] [address] [address] [place] [address] PCP - General Family Medicine 01/10/22 Layne Manley Jr., MD [address] [facility] [place] [address] Neurology 01/10/22 Splitting Machine Tender Relationship Specialty Start Date End Date Edith Fraser MD [address] [place] [address] [address] [place] [address] PCP - General Family Medicine 01/10/22 Layne Manley Jr., MD [address] [facility] [place] [address] Neurology 01/10/22 Splitting Machine Tender Relationship Specialty Start Date End Date Tracie Abreu MD [address] [address] PCP - General Internal Medicine 08/06/24 Layne Manley Jr., MD [address] [place] [address] Neurology 01/10/22 Splitting Machine Tender Relationship Specialty Start Date End Date Tracie Abreu MD [address] [address] PCP - General Internal Medicine 08/06/24 Layne Manley Jr., MD [address] [place] [address] Neurology 01/10/22 Splitting Machine Tender Relationship Specialty Start Date End Date Tracie Abreu MD [address] [address] PCP - General Internal Medicine 08/06/24 Layne Manley Jr., MD [address] [place] [address] Neurology 01/10/22 Team Status: Active Member Role/Relationship Status Tyler Abreu MD Primary Care Provider Active Team Status: Active Member Role/Relationship Status Tyler Abreu MD Primary Care Provider Active St art: October 17, 2024 Dr. Gamal Irwin MD Emergency Provider Active Sta rt: October 17, 2024 Dr. Kenrick Ng DO Admit Provider Active Start: October 17, 2024 Dr. Kenrick Ng DO Attending Provider Active Start: October 17, 2024 Team Status: Active Member Role/Relationship Status Tyler Abreu MD Primary care physician Active Team Status: Inactive Member Role/Relationship Status Tyler [...] October End: October 29, 2024 Dr. Rodney Chavze MD Nurse Practitioner Active Start: October 17, 2024 End: October 29, 2024 Dr. Nathalia Garcia , Nurse Practitioner Active S tart: October 17, 2024 End: October 29, 2024 Dr. Juan Palacios MD Nurse Practitioner Active Start: October 17, 2024 End: October 29, 2024 Dr. Javon Baldwin DO Attending physician Active Start: October 17, 2024 End: October 29, 2024 Dr. Rosmery Lake MD Nurse Practitioner Active Start: October 17, 2024 End: October 29, 2024 Team Status: Active Member Role/Relationship Status Dates Tracie Abreu MD Primary care physician Active S tart: October 18, 2024 Dr. Gamal Irwin MD Emergency Department Physician Active Start: October 18, 2024 Dr. Kenrick Ng DO Admitting physician Active Start: October Dr. Kenrick Ng DO Nurse Practitioner Active Start: October Dr. Jose R Rg MD Nurse Practitioner Active Start: October Dr. Nathalia Garcia , Attending physician Active Start: October 18, 2024 Dr. Nathalia Garcia , Nurse Practitioner Active S tart: October 18, [...] , DO Attending physician Active Start: October 20, 2024 [...] October 22, 2024 Dr. Nathalia Garcia , DO Nurse Practitioner Active S tart: October 22, [...] October 22, 2024 Dr. Nathalia Garcia , DO Nurse Practitioner Active S tart: October 22, [...] 23, 2024 Dr. Kenrick Ng , DO Nurse Practitioner Active Start: October 23, [...] Start: October 24, 2024 Dr. Kenrick Ng DO Nurse Practitioner Active Start: October 24, [...] Start: October 24, 2024 Dr. Kenrick Ng DO Nurse Practitioner Active Start: October 24, [...] Start: October 26, 2024 Dr. Kenrick Ng DO Admitting physician Active Start: October 26, 2024 Dr. Kenrick Ng DO Nurse Practitioner Active Start: October 26, [...] physician Active Start: October 26, 2024 Dr. Rosmery [...] Start: October 27, 2024 Dr. Kenrick Ng DO Admitting physician Active Start: October 27, 2024 Dr. Kenrick Ng DO Nurse Practitioner Active Start: October 27, [...] Start: October 28, 2024 Dr. Javon Baldwin DO Attending physician Active Start: October 28, 2024 [...] Start: October 29, 2024 Dr. Kenrick Ng DO Admitting physician Active Start: October 29, [...] Start: October 29, 2024 Dr. Javon Baldwin DO Attending physician Active Start: October 29, 2024 [...] , Nurse Practitioner Active S tart: October 29, [...] October 21, 2024 Dr. Nathalia Garcia , Nurse Practitioner Active S tart: October 21, 2024 Dr. Juan Palacios MD Attending physician Active Start: October 21, 2024 Dr. Juan Palacios MD Nurse Practitioner Active Start: October 21, 2024 Team Status: Inactive Member Role/Relationship Status Tyler Abreu MD Primary care physician Active S tart: October 30, 2024 End: October 30, 2024 Bonnie Aguilar NP, BISQUE CLEANER-C Attending physician Active Start: October 30, 2024 End: October 30, 2024 Team Status: Active Member Role/Relationship Status Tyler Abreu MD Primary care physician Active S tart: October 31, 2024 Conrad KOVACS MD Attending physician Active Start: October 31, 2024 Team Status: Inactive Member Role/Relationship Status Tyler Abreu MD Primary care physician Active S tart: October 31, 2024 End: October 31, 2024 Bonnie Aguilar NP, BISQUE CLEANER-C Attending physician Active Start: October 31, 2024 End: October 31, 2024 Team Status: Active Member Role/Relationship Status Tyler Abreu MD Primary care physician Active S tart: November 06, 2024 Conrad KOVACS MD Attending physician Active Start: November 06, 2024 Team Status: Active Member Role/Relationship Status Tyler Abreu MD Primary care physician Active S tart: November 13, 2024 Conard KOVACS MD Attending physician Active Start: November [...] BE BASED ON THE PRIMARY CLINICAL RECORDS. [facility] [employer] [facility]. provides no warranty or guarantee of the accuracy or completeness of information in this document.
[2025-01-22 07:28] LABS: Hematocrit 38.9 % (40-54); Hemoglobin 12.6 g/dL (13.0-16.5); Immature Granulocytes Count 0.010 X10^3/uL (0.0-0.0); Mean Corp Hgb Conc 32.4 g/dL (32-36); Mean Corpuscular Volume 89.4 fL (80-94); Mean Platelet Vol. 12.2 fl (6.2-12.0); NRBC Flagged by Analyzer 0 % (0-5); Platelet Count 246 K/mm3 (150-450); RBC Distribution Width CV 14.6 % (11.6-14.6); RBC Distribution Width SD 47.8 fl (35.1-43.9); Red Blood Count 4.35 M/mm3 (4.6-6.2); White Blood Count 8.1 K/mm3 (4.4-11.0)
[2025-01-22 07:50] LABS: Anion Gap 12 (5-15); BUN 30 mg/dL (4-19); BUN/Creat Ratio 22.8 RATIO (10-20); Calcium,Total 9.2 mg/dL (7.6-11.0); Carbon Dioxide 23.1 mmol/L (21.0-32.0); Chloride 106 mmol/L (98-108); Glucose 125 mg/dL (70-99); Potassium 4.3 mmol/L (3.3-5.1)
== END ==
LOC: OLS.WHLTSB 05:00
PROVIDERS: PCP Family Medicine; Visit Provider Internal Medicine
DX: G20.A1 Parkinson's disease without dyskinesia, without mention of fluctuations (principal); M62.82 Rhabdomyolysis; A41.9 Sepsis, unspecified organism; M62.561 Muscle wasting and atrophy, not elsewhere classified, right lower leg; E11.22 Type 2 diabetes mellitus with diabetic chronic kidney disease
CPT/HCPCS: 36415; 80048; 85025